=== PATIENT | female | born 1975 | race African-American/Black ===

== ENCOUNTER 2016-10-31 16:24 | Inpatient (IN) | payer OTHER ==
--- NOTE | 2016-10-31 16:34 | PDOC ---
Rapid Medical Evaluation Time Seen by Provider: 10/31/16 16:28 Medical Evaluation: Allergies Allergy/AdvReac Type Severity Reaction Status Date / Time No Known Drug Allergies Allergy Verified 10/31/16 16:29 10/31/16 16:33 I have performed a brief in-person evaluation of this patient. The patient presents with a chief complaint of: 41y/o F PVD sent from Dr. Neil's office for occluded LLE bypass graft. Pertinent physical exam findings: VSS LLE warm, perfused I have ordered the following: pre-op labs and CPK The patient will proceed to the ED for further evaluation.
[2016-10-31 16:59] LABS: BASOPHIL 0.6 % (0-2.0); EOSINOPHIL 6.1 % (0-4.5); MCH 21.8 pg (25.7-33.7); MCHC 30.2 g/dl (32.0-36.0); MEAN CELL VOLUME 72.3 fl (80-96); MEAN PLT VOLUME 8.9 fl (7.5-11.1); NEUTROPHILS 53.1 % (42.8-82.8); PLATELET COUNT 261 K/MM3 (134-434); RDW 21.5 % (11.6-15.6); WHITE BLOOD COUNT 11.3 K/mm3 (4.0-10.0)
[2016-10-31 17:01] LABS: URINE APPEARANCE SLCLOUDY; URINE BILIRUBIN NEGATIVE (NEGATIVE); URINE BLOOD NEGATIVE (NEGATIVE); URINE COLOR YELLOW; URINE GLUCOSE (UA) 2+ (NEGATIVE); URINE KETONE NEGATIVE (NEGATIVE); URINE LEUK ESTERASE NEGATIVE (NEGATIVE); URINE NITRITE NEGATIVE (NEGATIVE); URINE UROBILINOGEN NEGATIVE E.U./dl (0.2-1.0)
[2016-10-31 17:13] LABS: URINE PROTEIN 2+ (NEGATIVE)
[2016-10-31 17:17] LABS: BILIRUBIN,TOTAL 0.2 mg/dL (0.2-1.0); CALCIUM 8.6 mg/dL (8.5-10.1); CREATININE 1.2 mg/dL (0.55-1.02); TOT PROT 7.1 g/dl (6.4-8.2); URINE RBC <1 /hpf (0-3); URINE WBC 1 /hpf (3-5)
[2016-10-31 17:34] LABS: INR 0.92 (0.82-1.09); PROTHROMBIN TIME (PATIENT) 10.1 SEC (9.98-11.88)
[2016-10-31 17:37] LABS: ACTIVATED PTT 28.3 SECONDS (26.9-34.4)
[2016-10-31] MEDS ORDERED: HYDROmorphone HCL CARPU-JECT 2 MG/1 ML DISP.SYRIN IVPUSH ONE (17:44)
--- NOTE | 2016-10-31 18:00 | PDOC ---
History of Present Illness - General Chief Complaint: Pain, Acute Stated Complaint: PCP SENT/LEG PAIN/GRAFT SITE Time Seen by Provider: 10/31/16 16:28 History Source: Patient Exam Limitations: No Limitations - History of Present Illness Initial Comments: 10/31/16 17:54 41-year-old female with history of arterial insufficiency followed by Dr. Neil presents with worsening left lower extremity pain and states was seen by Dr. Neil today in the office who stated patient has an occlusion of her left iliofemoral graft as per ultrasound. Patient with history of hypertension, dyslipidemia, anxiety, CT, stent, chronic kidney disease, perforated bowel secondary to diverticulitis, and diabetes. Patient denies shortness of breath, lower extremity edema, or radiation of pain. Timing/Duration: getting worse Severity: moderate Associated Symptoms: reports: denies symptoms Past History - Past Medical History Allergies/Adverse Reactions: Allergies Allergy/AdvReac Type Severity Reaction Status Date / Time No Known Drug Allergies Allergy Verified 10/31/16 16:29 Home Medications: Ambulatory Orders Atorvastatin Ca [Lipitor] 20 mg PO HS 11/21/15 Budesonide [Pulmicort 0.25 mg Nebulizer -] 1 neb PO BID 11/21/15 Diltiazem [Cardizem -] 120 mg PO DAILY 11/21/15 Liraglutide [Victoza -] 0.6 mg SQ DAILY@0700 11/21/15 Albuterol 0.083% Nebulizer Carolyn [Ventolin 0.083% Nebulizer Soln -] 1 amp NEB Q6HPO amp 12/15/15 Hydroxyzine HCl [Atarax -] 25 mg PO BID PRN 04/15/16 Insulin (Novolog) [Novolog -] 0 units SQ ASDIR 04/15/16 Pregabalin [Lyrica -] 150 mg PO TID 04/15/16 Acetaminophen/Caffeine/Butalb [Fioricet -] 1 tab PO Q6H 04/16/16 Cholecalciferol (Vitamin D3) [Vitamin D3] 50,000 unit PO WEEKLY 04/16/16 Cyclobenzaprine HCl [Flexeril -] 10 mg PO BID 04/16/16 Dapagliflozin Propanediol [Farxiga] 5 mg PO DAILY 04/16/16 Duloxetine HCl [Cymbalta -] 30 mg PO BID #60 capsule. 04/17/16 Aspirin [ASA -] 81 mg PO DAILY tab.chew 07/17/16 Clopidogrel Bisulfate [Plavix -] 75 mg PO DAILY #30 tablet 07/17/16 Enoxaparin [Lovenox -] 120 mg SQ BID #30 disp.syrin 07/17/16 Clarithromycin 500 mg PO BID 08/17/16 Insulin Glargine,Hum.rec.anlog [Lantus (10mL VIAL) -] 55 units SQ AM 08/17/16 Lorazepam [Ativan] 0.5 mg PO Q12H MDD 2 08/17/16 Losartan Potassium 25 mg PO DAILY 08/17/16 Meclizine HCl [Antivert -] 25 mg PO TID 08/17/16 Trazodone HCl 100 mg PO BID 08/17/16 Unobtainable 10/31/16 Anemia: No Asthma: Yes Cancer: No Cardiac Disorders: Yes (mild heart attack, 1 stent) CVA: Yes (01/2015) COPD: Yes CHF: No Dementia: No Diabetes: Yes GI Disorders: Yes (perforated bowel,divertic) Disorders: Yes (Chronic kidney disease,not on dialysis) HTN: Yes Hypercholesterolemia: Yes Liver Disease: No Psychiatric Problems: Yes (anxiety) Suicide Attempt (Hx): No Seizures: No Thyroid Disease: No - Surgical History Abdominal Surgery: Yes (perforated bowel,hernia repair) Appendectomy: No Cardiac Surgery: Yes (stent ,bypass) Cholecystectomy: Yes Lung Surgery: No Neurologic Surgery: No Orthopedic Surgery: No - Family Disease History Family Disease History: Diabetes: Father, Mother, Heart Disease: Father - Reproductive History Tubal Ligation: Yes (2003) - Immunization History Immunization Up to Date: Yes - Psycho/Social/Smoking Cessation Hx Anxiety: Yes Suicidal Ideation: No Smoking Status: No Smoking History: Former smoker Have you smoked in the past 12 months: No Number of Cigarettes Smoked Daily: 0 If you are a former smoker, when did you quit?: 5 YRS Information on smoking cessation initiated: No 'Breaking Loose' booklet given: 09/02/12 Hx Alcohol Use: No Drug/Substance Use Hx: No Substance Use Type: None Hx Substance Use Treatment: No Patient Lives Alone: No Review of Systems - Review of Systems Able to Perform ROS?: Yes Constitutional: No: Symptoms Reported HEENTM: No: Symptoms Reported Respiratory: No: Symptoms reported Cardiac (ROS): No: Symptoms Reported ABD/GI: No: Symptoms Reported Musculoskeletal: Yes: Muscle Pain (left groin and left quadricep) Hematologic/Lymphatic: No: Symptoms Reported *Physical Exam - Vital Signs Last Vital Signs Temp Pulse Resp BP Pulse Ox 97.8 F 102 H 19 156/97 98 10/31/16 16:29 10/31/16 16:29 10/31/16 16:29 10/31/16 16:29 10/31/16 16:29 - Physical Exam General Appearance: Yes: Nourished, Appropriately Dressed. No: Apparent Distress HEENT: negative: Pale Conjunctivae Neck: positive: Supple Respiratory/Chest: positive: Lungs Clear, Normal Breath Sounds. negative: Respiratory Distress, Accessory Muscle Use Cardiovascular: positive: Regular Rhythm, Tachycardia. negative: Murmur Vascular Pulses: Doralis-Pedis (L): 0 (1+ posterior tibial palpated) Gastrointestinal/Abdominal: positive: Soft. negative: Tenderness Extremity: positive: Normal Capillary Refill, Pedal Edema. negative: Coldness, Calf Tenderness Integumentary: positive: Normal Color, Dry, Warm Neurologic: positive: Motor Strength 5/5 ( ambulatory) ED Treatment Course - LABORATORY CBC & Chemistry Diagram: 10/31/16 16:30 10/31/16 16:30 - ADDITIONAL ORDERS Additional order review: Laboratory Results 10/31/16 10/31/16 10/31/16 16:30 16:30 16:30 INR 0.92 PTT (Actin FS) 28.3 D Sodium 142 Potassium 4.2 Chloride 103 Carbon Dioxide 30 D Anion Gap 9 BUN 17 D Creatinine 1.2 H Creat Clearance w eGFR 49.03 Random Glucose 192 H D Calcium 8.6 Total Bilirubin 0.2 AST 4 L D ALT 11 L D Alkaline Phosphatase 131 H D Creatine Kinase 69 Total Protein 7.1 Albumin 3.0 L Urine Color Yellow Urine Appearance Slcloudy Urine pH 6.0 Ur Specific [place] 1.023 Urine Protein 2+ H Urine Glucose (UA) 2+ H Urine Ketones Negative Urine Blood Negative Urine Nitrite Negative Urine Bilirubin Negative Urine Urobilinogen Negative Ur Leukocyte Esterase Negative Urine RBC <1 Urine WBC 1 Ur Epithelial Cells Moderate Urine HCG, Qual Negative 10/31/16 16:30 RBC 3.89 MCV 72.3 L MCHC 30.2 L RDW 21.5 H D MPV 8.9 Neutrophils % 53.1 Lymphocytes % 35.7 Monocytes % 4.5 Eosinophils % 6.1 H Basophils % 0.6 Medical Decision Making - Medical Decision Making 10/31/16 17:59 Complaining of worsening left lower extremity pain. She was told if pain continues or worsens to go to the ER as patient may require revision. Patient ordered for labs and requesting Dilaudid for pain control. Call placed to Dr. Neil to discuss case 10/31/16 18:[address] Neil who states patient should be admitted and started on a heparin drip without a bolus since patient was recently on anticoagulation therapy. He states patient has a left iliofemoral graft occlusion that may require a bypass. Awaiting callback from Dr. Carmella Conley for admission. 10/31/16 18:52 Laboratory Tests 10/31/16 10/31/16 10/31/16 16:30 16:30 16:30 WBC 11.3 H D Hgb 8.5 L Hct 28.1 L Plt Count 261 D Neutrophils % 53.1 INR 0.92 PTT (Actin FS) 28.3 D Sodium Potassium Chloride Carbon Dioxide Anion Gap BUN Creatinine Creat Clearance w eGFR Random Glucose Calcium Total Bilirubin AST ALT Alkaline Phosphatase Creatine Kinase Total Protein Albumin Urine Protein 2+ H Urine Glucose (UA) 2+ H Ur Leukocyte Esterase Negative Urine RBC <1 Urine WBC 1 10/31/16 16:30 WBC Hgb Hct Plt Count Neutrophils % INR PTT (Actin FS) Sodium 142 Potassium 4.2 Chloride 103 Carbon Dioxide 30 D Anion Gap 9 BUN 17 D Creatinine 1.2 H Creat Clearance w eGFR 49.03 Random Glucose 192 H D Calcium 8.6 Total Bilirubin 0.2 AST 4 L D ALT 11 L D Alkaline Phosphatase 131 H D Creatine Kinase 69 Total Protein 7.1 Albumin 3.0 L Urine Protein Urine Glucose (UA) Ur Leukocyte Esterase Urine RBC Urine WBC *DC/Admit/Observation/Transfer Diagnosis at time of Disposition: Occlusion of graft of lower extremity Qualifiers: Encounter type: sequela Qualified Code(s): T82.898S - Other specified complication of vascular prosthetic devices, implants and grafts, sequela - Discharge Dispostion Admit: Yes
[2016-10-31] MEDS ORDERED: HYDROmorphone HCL CARPU-JECT 1 MG/1 ML DISP.SYRIN ONE (18:12)
[2016-10-31 18:19] LABS: ANISOCYTOSIS 2+; HYPOCHROMIA 2+; MICROCYTOSIS 2+
[2016-10-31] MEDS ORDERED: HEPARIN NA (PORCINE) 5,000 UNITS/ML 1ML VIAL IVPUSH PRN ×2 (18:38)
[2016-10-31] MEDS ORDERED: HEPARIN INFUSION - 500 ML IVPB ONE (19:29)
[2016-10-31] MEDS: HEPARIN - 25,000 UNIT in SODIUM CHLORIDE 495 ML IV SCH (19:42)
[2016-10-31] MEDS ORDERED: ACETAMINOPHEN 325 MG TABLET (FP) PO PRN (20:06)
[2016-10-31] MEDS ORDERED: hydrOXYzine HCL 25 MG TABLET (FP) PO PRN (20:06)
[2016-10-31] MEDS ORDERED: ALBUTEROL SO4 2.5/IPRATROPIUM 0.5 INH SOL 3 ML VIAL.NEB. NEB PRN (20:06)
[2016-10-31] MEDS ORDERED: oxyCODONE HCL 5 MG TABLET PO PRN (20:06)
[2016-10-31] MEDS ORDERED: MECLIZINE HCL 25 MG TABLET (FP) PO PRN (20:06)
[2016-10-31 21:09] VITALS: BMI 30.9
[2016-10-31] MEDS: BUDESONIDE/FORMETEROL FUMARATE 80/4.5 mcg INHALER IH SCH (22:16)
[2016-10-31] MEDS: INSULIN DETEMIR 100 UNITS/ML MDV SQ SCH (22:17)
[2016-10-31] MEDS: PREGABALIN 75 MG CAPSULE PO SCH (22:19)
[2016-10-31] MEDS: ATORVASTATIN CA 20 MG TABLET (FP) PO SCH (22:20)
[2016-10-31] MEDS: CYCLOBENZAPRINE HCL 10 MG TABLET (FP) PO SCH (22:20)
[2016-10-31] MEDS: traZODone HCL 100 MG TABLET (FP) PO SCH (22:20)
[2016-10-31] MEDS: INSULIN SLIDING SCALE (NOVOLOG) 1 VIAL SQ SCH (22:21)
[2016-10-31] MEDS: HYDROmorphone HCL CARPU-JECT 2 MG/1 ML DISP.SYRIN IVPB PRN (23:30)
[2016-11-01] MEDS: HEPARIN - 25,000 UNIT in SODIUM CHLORIDE 495 ML IV SCH ×4 (03:40→19:03)
[2016-11-01] MEDS: HYDROmorphone HCL CARPU-JECT 2 MG/1 ML DISP.SYRIN IVPB PRN ×3 (06:17→18:40)
[2016-11-01] MEDS: INSULIN SLIDING SCALE (NOVOLOG) 1 VIAL SQ SCH ×4 (06:17→21:38)
[2016-11-01] MEDS: CYCLOBENZAPRINE HCL 10 MG TABLET (FP) PO SCH ×2 (10:00→21:38)
[2016-11-01] MEDS: LOSARTAN POTASSIUM 50 MG TABLET (FP) PO SCH (10:00)
[2016-11-01] MEDS: DULoxetine HCL 30 MG CAPSULE.DR (FP) PO SCH (10:01)
[2016-11-01] MEDS: PREGABALIN 75 MG CAPSULE PO SCH ×2 (10:01→21:38)
[2016-11-01] MEDS: BUDESONIDE/FORMETEROL FUMARATE 80/4.5 mcg INHALER IH SCH ×2 (10:02→21:43)
[2016-11-01] MEDS: LORazepam 0.5 MG TABLET PO PRN ×2 (10:05→21:39)
--- NOTE | 2016-11-01 10:49 | HP ---
Admitting History and Physical - Primary Care Physician PCP: Carmella Conley - Admission Chief Complaint: ARTERIAL OCCLUSION/LEG PAIN History of Present Illness: 41-year-old female with history of arterial insufficiency followed by Dr. Celeste presents with worsening left lower extremity pain and states was seen by Dr. Celeste today in the office who stated patient has an occlusion of her left iliofemoral graft as per ultrasound. Patient with history of hypertension, dyslipidemia, anxiety, CO, stent, chronic kidney disease, perforated bowel secondary to diverticulitis, and diabetes. Patient denies shortness of breath, lower extremity edema, or radiation of pain. 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, Other (neuropathy) Cardiovascular: Yes: CAD, HTN, Hyperlipdemia Pulmonary: Yes: Asthma, COPD Gastrointestinal: Yes: GERD ...LMP: 07/21/16 Musculoskeletal: Yes: Osteoarthritis Endocrine: Yes: Diabetes Mellitus - Past Surgical History Past Surgical History: Yes: AV Fistula/Graft - Smoking History Smoking history: Former smoker Have you smoked in the past 12 months: No Aproximately how many cigarettes per day: 0 If you are a former smoker, when did you quit?: 5 YRS - Alcohol/Substance Use Hx Alcohol Use: No Home Medications - Allergies Allergies/Adverse Reactions: Allergies Allergy/AdvReac Type Severity Reaction Status Date / Time No Known Drug Allergies Allergy Verified 10/31/16 16:29 - Home Medications Home Medications: Ambulatory Orders Atorvastatin Ca [Lipitor] 20 mg PO HS 11/21/15 Budesonide [Pulmicort 0.25 mg Nebulizer -] 1 neb PO BID 11/21/15 Diltiazem [Cardizem -] 120 mg PO DAILY 11/21/15 Liraglutide [Victoza -] 0.6 mg SQ DAILY@0700 11/21/15 Albuterol 0.083% Nebulizer Carolyn [Ventolin 0.083% Nebulizer Soln -] 1 amp NEB Q6HPO amp 12/15/15 Hydroxyzine HCl [Atarax -] 25 mg PO BID PRN 04/15/16 Insulin (Novolog) [Novolog -] 0 units SQ ASDIR 04/15/16 Pregabalin [Lyrica -] 150 mg PO TID 04/15/16 Acetaminophen/Caffeine/Butalb [Fioricet -] 1 tab PO Q6H 04/16/16 Cholecalciferol (Vitamin D3) [Vitamin D3] 50,000 unit PO WEEKLY 04/16/16 Cyclobenzaprine HCl [Flexeril -] 10 mg PO BID 04/16/16 Dapagliflozin Propanediol [Farxiga] 5 mg PO DAILY 04/16/16 Duloxetine HCl [Cymbalta -] 30 mg PO BID #60 capsule.dr 04/17/16 Aspirin [ASA -] 81 mg PO DAILY tab.chew 07/17/16 Clopidogrel Bisulfate [Plavix -] 75 mg PO DAILY #30 tablet 07/17/16 Enoxaparin [Lovenox -] 120 mg SQ BID #30 disp.syrin 07/17/16 Clarithromycin 500 mg PO BID 08/17/16 Insulin Glargine,Hum.rec.anlog [Lantus (10mL VIAL) -] 55 units SQ AM 08/17/16 Lorazepam [Ativan] 0.5 mg PO Q12H MDD 2 08/17/16 Losartan Potassium 25 mg PO DAILY 08/17/16 Meclizine HCl [Antivert -] 25 mg PO TID 08/17/16 Trazodone HCl 100 mg PO BID 08/17/16 Unobtainable 10/31/16 Family Disease History - Family Disease History Family Disease History: Diabetes: Mother, Sister Review of Systems - Review of Systems Constitutional: reports: Weakness Eyes: reports: No Symptoms HENT: reports: No Symptoms Neck: reports: No Symptoms Cardiovascular: reports: No Symptoms Respiratory: reports: No Symptoms Gastrointestinal: reports: No Symptoms Genitourinary: reports: No Symptoms Musculoskeletal: reports: Muscle Pain, Muscle Weakness Integumentary: reports: No Symptoms Neurological: reports: Pre-Existing Deficit Endocrine: reports: No Symptoms Hematology/Lymphatic: reports: No Symptoms Psychiatric: reports: No Symptoms Physical Examination Vital Signs: Vital Signs Temperature 98 F 11/01/16 09:29 Pulse Rate 112 H 11/01/16 09:29 Respiratory Rate 18 11/01/16 09:29 Blood Pressure 112/78 11/01/16 09:29 O2 Sat by Pulse Oximetry (%) 98 10/31/16 16:29 Constitutional: Yes: Moderate Distress Eyes: Yes: WNL HENT: Yes: WNL Neck: Yes: WNL Cardiovascular: Yes: WNL Respiratory: Yes: WNL Gastrointestinal: Yes: WNL ...Rectal Exam: Yes: WNL Renal/: Yes: WNL Breast(s): Yes: WNL Musculoskeletal: Yes: Muscle Pain Extremities: Yes: Other Edema: No Peripheral Pulses WNL: No Peripheral Pulses: Left Doralis Pedis: 0 Integumentary: Yes: WNL Wound/Incision: Yes: Clean/Dry Neurological: Yes: Pre-Existing Deficit ...Motor Strength: LLE, RLE Psychiatric: Yes: Other Problem List - Problems (1) Occlusion of graft of lower extremity Code(s): T82.898A - OTH COMPLICATION OF VASCULAR PROSTH DEV/GRFT, INIT Qualifiers: Encounter type: sequela Qualified Code(s): T82.898S - Other specified complication of vascular prosthetic devices, implants and grafts, sequela (2) Arterial occlusion Code(s): I74.9 - EMBOLISM AND THROMBOSIS OF UNSPECIFIED ARTERY (3) Chronic kidney disease (CKD) Code(s): N18.9 - CHRONIC KIDNEY DISEASE, UNSPECIFIED (4) Diabetes mellitus Code(s): E11.9 - TYPE 2 DIABETES MELLITUS WITHOUT COMPLICATIONS Assessment/Plan ARTERIAL OCCLUSION TO GO TO OR TODAY WITH DR CELESTE FOR ANGIOPLASTY HEPARIN IV PAIN CONTROL STATIN A1C ORDERED STRICT LIPID AND DIABETIC CONTROL DISCUSSED WITH PATIENT TO PREVENT FURTHER DAMAGE.
[2016-11-01 11:06] LABS: ALBUMIN 2.5 g/dl (3.4-5.0); BILIRUBIN,TOTAL 0.1 mg/dL (0.2-1.0); CALCIUM 7.9 mg/dL (8.5-10.1); CREATININE 1.1 mg/dL (0.55-1.02); TOT PROT 6.2 g/dl (6.4-8.2)
[2016-11-01] MEDS ORDERED: INSULIN (NOVOLOG) ASPART 100 UNITS/ML 10ML VIAL ONE ×2 (11:46→18:37)
--- NOTE | 2016-11-01 17:15 | CONSULT ---
Consult - History of Present Illness History of Present Illness: Ms. Ren is a 41 year old female with history of left iliac occlusion who has had a fem-fem bypass whicvh failed and a left iliac to left femoral bypass which has thrombosed twice before and was opened with thrombolysis and stenting of iliac and femoral anastomoses. The last thrombectomy was July 2016. She was maintained on daily Lovenox as she had clotted while on Xarelto. She failed to return for Duplex evaluation of her graft in August and September and presented to my office yesterday with renewed pain in the left leg at rest. Duplex confirmed reocclusion of the graft. 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 No: AV Fistula/ Graft - Alcohol/Substance Use Hx Alcohol Use: No - Smoking History Smoking history: Former smoker Have you smoked in the past 12 months: No Aproximately how many cigarettes per day: 0 If you are a former smoker, when did you quit?: 5 YRS - Social History Usual Living Arrangement: With Spouse Home Medications - Allergies Allergies/Adverse Reactions: Allergies Allergy/AdvReac Type Severity Reaction Status Date / Time No Known Drug Allergies Allergy Verified 10/31/16 16:29 - Home Medications Home Medications: Ambulatory Orders Atorvastatin Ca [Lipitor] 20 mg PO HS 11/21/15 Budesonide [Pulmicort 0.25 mg Nebulizer -] 1 neb PO BID 11/21/15 Diltiazem [Cardizem -] 120 mg PO DAILY 11/21/15 Liraglutide [Victoza -] 0.6 mg SQ DAILY@0700 11/21/15 Albuterol 0.083% Nebulizer Carolyn [Ventolin 0.083% Nebulizer Soln -] 1 amp NEB Q6HPO amp 12/15/15 Hydroxyzine HCl [Atarax -] 25 mg PO BID PRN 04/15/16 Insulin (Novolog) [Novolog -] 0 units SQ ASDIR 04/15/16 Pregabalin [Lyrica -] 150 mg PO TID 04/15/16 Acetaminophen/Caffeine/Butalb [Fioricet -] 1 tab PO Q6H 04/16/16 Cholecalciferol (Vitamin D3) [Vitamin D3] 50,000 unit PO WEEKLY 04/16/16 Cyclobenzaprine HCl [Flexeril -] 10 mg PO BID 04/16/16 Dapagliflozin Propanediol [Farxiga] 5 mg PO DAILY 04/16/16 Duloxetine HCl [Cymbalta -] 30 mg PO BID #60 capsule.dr 04/17/16 Aspirin [ASA -] 81 mg PO DAILY tab.chew 07/17/16 Clopidogrel Bisulfate [Plavix -] 75 mg PO DAILY #30 tablet 07/17/16 Enoxaparin [Lovenox -] 120 mg SQ BID #30 disp.syrin 07/17/16 Clarithromycin 500 mg PO BID 08/17/16 Insulin Glargine,Hum.rec.anlog [Lantus (10mL VIAL) -] 55 units SQ AM 08/17/16 Lorazepam [Ativan] 0.5 mg PO Q12H MDD 2 08/17/16 Losartan Potassium 25 mg PO DAILY 08/17/16 Meclizine HCl [Antivert -] 25 mg PO TID 08/17/16 Trazodone HCl 100 mg PO BID 08/17/16 Unobtainable 10/31/16 Family Disease History - Family Disease History Family Disease History: Diabetes: Mother, Sister Physical Exam Vital Signs: Vital Signs Temperature 97.8 F 11/01/16 15:21 Pulse Rate 94 H 11/01/16 15:21 Respiratory Rate 18 11/01/16 09:29 Blood Pressure 129/84 11/01/16 15:21 O2 Sat by Pulse Oximetry (%) 98 10/31/16 16:29 Constitutional: Yes: No Distress Eyes: Yes: WNL, EOM Intact HENT: Yes: WNL Neck: Yes: Supple Cardiovascular: Yes: Regular Rate and Rhythm Respiratory: Yes: Regular Gastrointestinal: Yes: Soft, Abdomen, Obese Extremities: Yes: Cool (Left foot.) Edema: No Peripheral Pulses WNL: No (Absent left pedal pulses. PT present with Doppler) Labs: CBC, BMP 11/01/16 10:00 Problem List - Problems (1) Occlusion of graft of lower extremity Assessment/Plan: Reocclusion (3rd time) of iliofemoral bypass despite anticoagulation. At this point I do not feel that another attempt to salvage this graft would be worthwhile. A new bypass from abdominal aorta to SFA will be needed. In order for this to work adequate vein is needed. Plan: Duplex mapping of both GSV. If vein is not of adequate size for bypass femoral vein may be needed. Cardiology clearance for surgery. Code(s): T82.898A - H COMPLICATION OF VASCULAR PROSTH DEV/GRFT, INIT Qualifiers: Encounter type: sequela Qualified Code(s): T82.898S - Other specified complication of vascular prosthetic devices, implants and grafts, sequela (2) Hypercoagulable state Assessment/Plan: Patient has not been diagnosed formally but has clinical evidence for a hypercoagulable state based on multiple graft occlusions and strokes. Code(s): D68.59 - OTHER PRIMARY THROMBOPHILIA
[2016-11-01] MEDS ORDERED: traZODone HCL 50 MG TABLET (FP) ONE (21:35)
[2016-11-01] MEDS: INSULIN DETEMIR 100 UNITS/ML MDV SQ SCH (21:37)
[2016-11-01] MEDS: ATORVASTATIN CA 20 MG TABLET (FP) PO SCH (21:38)
[2016-11-01] MEDS: traZODone HCL 100 MG TABLET (FP) PO SCH (21:39)
[2016-11-02] MEDS: HYDROmorphone HCL CARPU-JECT 2 MG/1 ML DISP.SYRIN IVPB PRN ×4 (00:30→18:45)
[2016-11-02] MEDS: INSULIN SLIDING SCALE (NOVOLOG) 1 VIAL SQ SCH ×4 (06:19→21:33)
[2016-11-02 07:56] LABS: MCHC 30.4 g/dl (32.0-36.0); MEAN CELL VOLUME 72.4 fl (80-96); MEAN PLT VOLUME 8.9 fl (7.5-11.1); PLATELET COUNT 207 K/MM3 (134-434); RDW 21.2 % (11.6-15.6); WHITE BLOOD COUNT 11.5 K/mm3 (4.0-10.0)
[2016-11-02] MEDS: HEPARIN - 25,000 UNIT in SODIUM CHLORIDE 495 ML IV SCH ×2 (08:55→18:53)
--- NOTE | 2016-11-02 09:16 | PN ---
Progress Note, Physician Chief Complaint: AWAKE ALERT GOING FOR VENOUS MAPPING NAD +APPETITE +BM - Current Medication List Current Medications: Active Medications Acetaminophen (Tylenol -) 650 mg PO Q6H PRN PRN Reason: FEVER OR PAIN Albuterol/Ipratropium (Duoneb -) 1 amp NEB Q6H PRN PRN Reason: SHORTNESS OF BREATH Last Admin: 11/01/16 06:28 Dose: 1 amp Atorvastatin Calcium (Lipitor -) 20 mg PO HS [facility] Last Admin: 11/01/16 21:38 Dose: 20 mg Budesonide/Formoterol Fumarate (Symbicort 80/4.5mcg -) 2 puff IH BID [facility] Last Admin: 11/01/16 21:43 Dose: 2 puff Cyclobenzaprine HCl (Flexeril -) 10 mg PO BID [facility] Last Admin: 11/01/16 21:38 Dose: 10 mg Diltiazem HCl (Cardizem Cd -) 120 mg PO DAILY [facility] Last Admin: 11/01/16 10:01 Dose: 120 mg Duloxetine HCl (Cymbalta -) 30 mg PO DAILY [facility] Last Admin: 11/01/16 10:01 Dose: 30 mg Heparin Sodium (Porcine) (Heparin -) 1,000 unit IVPUSH PRN PRN PRN Reason: Heparin Last Admin: 11/01/16 03:41 Dose: 1,000 unit Heparin Sodium (Porcine) (Heparin -) 5,000 unit IVPUSH PRN PRN PRN Reason: Heparin Hydromorphone HCl (Dilaudid Injection -) 2 mg IVPB Q6H PRN PRN Reason: PAIN Last Admin: 11/02/16 06:49 Dose: 2 mg Hydroxyzine HCl (Atarax -) 25 mg PO TID PRN PRN Reason: FOR ITCHING Heparin Sodium (Porcine) 25, (000 unit/ Sodium Chloride) 500 mls @ 20 mls/hr IV TITR MICK; 1,000 UNIT/HR PRN Reason: Protocol Last Admin: 11/02/16 08:55 Dose: 22 mls/hr Insulin Aspart (Novolog Vial Sliding Scale -) 1 vial SQ ACHS MICK PRN Reason: Protocol Last Admin: 11/02/16 06:19 Dose: Not Given Insulin Detemir (Levemir Vial) 50 units SQ HS [facility] Last Admin: 11/01/16 21:37 Dose: 50 units Lorazepam (Ativan -) 0.5 mg PO TID PRN PRN Reason: ANXIETY Last Admin: 11/01/16 21:39 Dose: 0.5 mg Losartan Potassium (Cozaar -) 50 mg PO DAILY [facility] Last Admin: 11/01/16 10:00 Dose: 50 mg Meclizine HCl (Antivert -) 25 mg PO TID PRN PRN Reason: VERTIGO Oxycodone HCl (Roxicodone -) 10 mg PO Q6H PRN PRN Reason: PAIN Pregabalin (Lyrica -) 150 mg PO BID [facility] Last Admin: 11/01/16 21:38 Dose: 150 mg Trazodone HCl (Desyrel -) 100 mg PO HS [facility] Last Admin: 11/01/16 21:39 Dose: 100 mg - Objective Vital Signs: Vital Signs Temperature 97.3 F L 11/02/16 06:10 Pulse Rate 88 11/02/16 06:10 Respiratory Rate 18 11/02/16 06:10 Blood Pressure 135/76 11/02/16 06:10 O2 Sat by Pulse Oximetry (%) 98 10/31/16 16:29 Constitutional: Yes: No Distress Eyes: Yes: WNL HENT: Yes: WNL Neck: Yes: WNL Cardiovascular: Yes: WNL Respiratory: Yes: WNL Gastrointestinal: Yes: WNL Genitourinary: Yes: WNL Musculoskeletal: Yes: WNL Extremities: Yes: WNL Edema: No Peripheral Pulses WNL: Yes Integumentary: Yes: WNL Wound/Incision: Yes: Clean/Dry Neurological: Yes: WNL ...Motor Strength: WNL Psychiatric: Yes: WNL Labs: CBC, BMP 11/02/16 06:30 11/01/16 10:00 INR, PTT INR 0.92 (0.82-1.09) 10/31/16 16:30 Problem List - Problems (1) Occlusion of graft of lower extremity Code(s): T82.898A - OTH COMPLICATION OF VASCULAR PROSTH DEV/GRFT, INIT Qualifiers: Encounter type: sequela Qualified Code(s): T82.898S - Other specified complication of vascular prosthetic devices, implants and grafts, sequela (2) Arterial occlusion Code(s): I74.9 - EMBOLISM AND THROMBOSIS OF UNSPECIFIED ARTERY (3) Chronic kidney disease (CKD) Code(s): N18.9 - CHRONIC KIDNEY DISEASE, UNSPECIFIED (4) Diabetes mellitus Code(s): E11.9 - TYPE 2 DIABETES MELLITUS WITHOUT COMPLICATIONS Assessment/Plan ARTERIAL OCCLUSION ON HEPARIN IV VENOUS MAPPING TODAY DR GEORGE/CHANDLER FOR CARDIOLOGY PAIN CONTROL OOB TO CHAIR
[2016-11-02] MEDS: LOSARTAN POTASSIUM 50 MG TABLET (FP) PO SCH (11:02)
[2016-11-02] MEDS: LORazepam 0.5 MG TABLET PO PRN ×2 (11:02→21:37)
[2016-11-02] MEDS: PREGABALIN 75 MG CAPSULE PO SCH ×2 (11:03→21:33)
[2016-11-02] MEDS: DULoxetine HCL 30 MG CAPSULE.DR (FP) PO SCH (11:03)
[2016-11-02] MEDS: CYCLOBENZAPRINE HCL 10 MG TABLET (FP) PO SCH ×2 (11:04→21:32)
[2016-11-02] MEDS: BUDESONIDE/FORMETEROL FUMARATE 80/4.5 mcg INHALER IH SCH ×2 (11:05→21:35)
[2016-11-02 11:50] LABS: HYPOCHROMIA 1+
[2016-11-02 11:51] LABS: ANISOCYTOSIS 2+; MICROCYTOSIS 1+
[2016-11-02] MEDS ORDERED: PT OWN MED DRAWER 7, Y5N ONE (16:41)
--- NOTE | 2016-11-02 16:51 | CONSULT ---
Consult Consult Specialty:: Cardiology Referred by:: Dr Conley Reason for Consultation:: Pre-op prior to vascular surgery - History of Present Illness Chief Complaint: Left leg pain for about a week History of Present Illness: 41 yo obese female with past tobacco, HTN, HLD, DM for over 20 yrs -> insulin- requiring for over 10 yrs, CAD -. LCx FLY in 11/12, reported "small NV" in 2014 with likely nuclear at [facility] (no details available), CVA ( presented with visual field defect) shortly thereafter in 01/15 -. unremarkable work-up here including holter and TAWANNA, PAD -. multiple revascularization procedures in [facility] including multiple stents, ileo-fem bypass and subsequent procedures to open graft, sent here from Dr Dooley's office with a week of left leg pain, for occluded graft -. scheduled for the OR tomorrow afternoon. Patient denies any chest pain or SOB, except when she is having an asthma attack. She however has very poor exercise tolerance -> gets back pain ( sometimes leg pain) with only walking from bedroom to bathroom. She denies TOÑO, PND or orthopnea Pt hasn't been to cardiology in about 2yrs. Sh eused to see Dr Hill. She was supposed to see ammonia refrigeration technician in Dr Conley's office but has not done so yet . She has an upcoming appointment. 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 holter then sg=howed rare APCs, TTE and TAWANNA unremarkable), Other (neuropathy) Cardio/Vascular: Yes: CAD (cath in 11/12 at [facility]: LCx FLY, 80% small D1 -. med managed), HTN, Hyperlipdemia Pulmonary: Yes: Asthma, COPD Gastrointestinal: Yes: GERD ...LMP: 07/21/16 Heme/Onc: Yes: Anemia Musculoskeletal: Yes: Osteoarthritis, Other (herniated disc) Endocrine: Yes: Diabetes Mellitus (for over 20 yr s-. insulin for over 10 yrs) - Past Surgical History Past Surgical History: Yes: Bypass, Hernia Repair ([facility]). No: AV Fistula/ Graft - Alcohol/Substance Use Hx Alcohol Use: No History of Substance Use: reports: None - Smoking History Smoking history: Former smoker (1-2 ppday) Have you smoked in the past 12 months: No Aproximately how many cigarettes per day: 0 If you are a former smoker, when did you quit?: 10 ya - Social History Usual Living Arrangement: With Spouse Home Medications - Allergies Allergies/Adverse Reactions: Allergies Allergy/AdvReac Type Severity Reaction Status Date / Time No Known Drug Allergies Allergy Verified 10/31/16 16:29 - Home Medications Home Medications: Ambulatory Orders Atorvastatin Ca [Lipitor] 20 mg PO HS 11/21/15 Budesonide [Pulmicort 0.25 mg Nebulizer -] 1 neb PO BID 11/21/15 Diltiazem [Cardizem -] 120 mg PO DAILY 11/21/15 Liraglutide [Victoza -] 0.6 mg SQ DAILY@0700 11/21/15 Albuterol 0.083% Nebulizer Carolyn [Ventolin 0.083% Nebulizer Soln -] 1 amp NEB Q6HPO amp 12/15/15 Hydroxyzine HCl [Atarax -] 25 mg PO BID PRN 04/15/16 Insulin (Novolog) [Novolog -] 0 units SQ ASDIR 04/15/16 Pregabalin [Lyrica -] 150 mg PO TID 04/15/16 Acetaminophen/Caffeine/Butalb [Fioricet -] 1 tab PO Q6H 04/16/16 Cholecalciferol (Vitamin D3) [Vitamin D3] 50,000 unit PO WEEKLY 04/16/16 Cyclobenzaprine HCl [Flexeril -] 10 mg PO BID 04/16/16 Dapagliflozin Propanediol [Farxiga] 5 mg PO DAILY 04/16/16 Duloxetine HCl [Cymbalta -] 30 mg PO BID #60 capsule. 04/17/16 Aspirin [ASA -] 81 mg PO DAILY tab.chew 07/17/16 Clopidogrel Bisulfate [Plavix -] 75 mg PO DAILY #30 tablet 07/17/16 Enoxaparin [Lovenox -] 120 mg SQ BID #30 disp.syrin 07/17/16 Clarithromycin 500 mg PO BID 08/17/16 Insulin Glargine,Hum.rec.anlog [Lantus (10mL VIAL) -] 55 units SQ AM 08/17/16 Lorazepam [Ativan] 0.5 mg PO Q12H MDD 2 08/17/16 Losartan Potassium 25 mg PO DAILY 08/17/16 Meclizine HCl [Antivert -] 25 mg PO TID 08/17/16 Trazodone HCl 100 mg PO BID 08/17/16 Unobtainable 10/31/16 Family Disease History - Family Disease History Family Disease History: Diabetes: Mother ( in her late 50s ), Sister ( in her 40s of substance abuse), Other: Father (had CAV --. in his 70s) Other Family History: brother of substance abuse Review of Systems - Review of Systems Constitutional: reports: No Symptoms Eyes: reports: Other (glasses) HENT: reports: No Symptoms Neck: reports: Pain on Movement Cardiovascular: reports: Shortness of Breath (wit asthm attack) Respiratory: reports: No Symptoms Gastrointestinal: reports: Indigestion Genitourinary: reports: No Symptoms Musculoskeletal: reports: Back Pain, Extremity Pain, Joint Pain, Muscle Weakness Neurological: reports: Weakness Hematology/Lymphatic: reports: No Symptoms Physical Exam Vital Signs: Vital Signs Temperature 98.1 F 11/02/16 13:47 Pulse Rate 96 H 11/02/16 13:47 Respiratory Rate 18 11/02/16 06:10 Blood Pressure 125/78 11/02/16 13:51 O2 Sat by Pulse Oximetry (%) 98 10/31/16 16:29 Constitutional: Yes: Obese Eyes: Yes: Conjunctiva Clear HENT: Yes: Atraumatic Neck: Yes: Supple Cardiovascular: Yes: Regular Rate and Rhythm. No: Murmur Respiratory: Yes: CTA Bilaterally Gastrointestinal: Yes: Normal Bowel Sounds, Soft, Abdomen, Obese. No: Tenderness Extremities: Yes: Other (cool) Edema: No Peripheral Pulses WNL: Yes (very weak on th eleft, weak on the right) Neurological: Yes: Alert, Oriented Psychiatric: Yes: Alert, Oriented Labs: CBC, BMP 11/02/16 06:30 11/01/16 10:00 Imaging - Results Other: Other (Dipyridamole nuclear ) at [facility] -. no ischemia, small inf-lateral NV, EF 63%) Assessment/Plan 41 yo obese female with the above history, here with left leg pain -> found with occluded graft and is scheduled for the OR tomorrow afternoon. Patient denies any chest pain or SOB, except when she is having an asthma attack. She however has very poor exercise tolerance, mostly because of back pain . Consequently, we don't have any idea of her exercise tolerance. I was able to get the nuclear stress from [facility] from 12/31/14 which showed small infero-lateral infarct, no ischemia and EF 63% Patient denies any new symptoms in the recent past. EKG done just now is w/o acute changes. Given the above, she may proceed with the vascular surgery w/o further cardiac evaluation Rec: Proceed with surgery per Dr Dooley Continue current meds (pt on cardizem rather than BB, presumably because of her asthma) Further management accordingly Per IM/vasc Thanks! We'll follow!
--- NOTE | 2016-11-02 17:09 | PN ---
Progress Note (short form) - Note Progress Note: Vascular Surgery- Dr. Neil Patient seen and examined. Patient states her leg feels the same. Patient discussed with cardiology. Last Vital Signs Temp Pulse Resp BP Pulse Ox 98.1 F 96 H 18 125/78 98 11/02/16 13:47 11/02/16 13:47 11/02/16 06:10 11/02/16 13:51 10/31/16 16:29 CBC, BMP 11/02/16 06:30 11/01/16 10:00 Exam: Gen: NAD Extremities: Left foot cooler than right, not able to palpate DP pulse, PT with dopplar A/P Re-occlusion iliofemoral bypass despite anticoagulation Plan for OR tomorrow afternoon for new bypass from abdominal aorta to SFA, pending cardiology clearance (awaiting stress test results) Vein mapping of both GSV complete Patient discussed with Dr. Neil May have clear liquids for breakfast, then NPO T&S, crossmatch- H&H 7.6/25.0- may need unit PRBC prior to OR if cleared to have surgery tomorrow afternoon
--- NOTE | 2016-11-02 19:49 | CONSULT ---
Consult - text type - Consultation Consultation Note: 41-year-old female with history of arterial insufficiency followed by Dr. Neil presents with worsening left lower extremity pain and has an occlusion of her left iliofemoral graft as per ultrasound. Patient with history of hypertension, dyslipidemia, anxiety, NM, stent, chronic kidney disease, perforated bowel secondary to diverticulitis, and diabetes. Patient denies shortness of breath, lower extremity edema, or radiation of pain. Past History HTN DM dyslipidemia anxiety NM s/p stent CKD perforated bowel Allergies/Adverse Reactions: Allergies Allergy/AdvReac Type Severity Reaction Status Date / Time No Known Drug Allergies Allergy Verified 10/31/16 16:29 Home Medications: Ambulatory Orders Atorvastatin Ca [Lipitor] 20 mg PO HS 11/21/15 Budesonide [Pulmicort 0.25 mg Nebulizer -] 1 neb PO BID 11/21/15 Diltiazem [Cardizem -] 120 mg PO DAILY 11/21/15 Liraglutide [Victoza -] 0.6 mg SQ DAILY@0700 11/21/15 Albuterol 0.083% Nebulizer Carolyn [Ventolin 0.083% Nebulizer Soln -] 1 amp NEB Q6HPO amp 12/15/15 Hydroxyzine HCl [Atarax -] 25 mg PO BID PRN 04/15/16 Insulin (Novolog) [Novolog -] 0 units SQ ASDIR 04/15/16 Pregabalin [Lyrica -] 150 mg PO TID 04/15/16 Acetaminophen/Caffeine/Butalb [Fioricet -] 1 tab PO Q6H 04/16/16 Cholecalciferol (Vitamin D3) [Vitamin D3] 50,000 unit PO WEEKLY 04/16/16 Cyclobenzaprine HCl [Flexeril -] 10 mg PO BID 04/16/16 Dapagliflozin Propanediol [Farxiga] 5 mg PO DAILY 04/16/16 Duloxetine HCl [Cymbalta -] 30 mg PO BID #60 capsule. 04/17/16 Aspirin [ASA -] 81 mg PO DAILY tab.chew 07/17/16 Clopidogrel Bisulfate [Plavix -] 75 mg PO DAILY #30 tablet 07/17/16 Enoxaparin [Lovenox -] 120 mg SQ BID #30 disp.syrin 07/17/16 Clarithromycin 500 mg PO BID 08/17/16 Insulin Glargine,Hum.rec.anlog [Lantus (10mL VIAL) -] 55 units SQ AM 08/17/16 Lorazepam [Ativan] 0.5 mg PO Q12H MDD 2 08/17/16 Losartan Potassium 25 mg PO DAILY 08/17/16 Meclizine HCl [Antivert -] 25 mg PO TID 08/17/16 Trazodone HCl 100 mg PO BID 08/17/16 Unobtainable 10/31/16 Current Medications Acetaminophen (Tylenol -) 650 mg PO Q6H PRN PRN Reason: FEVER OR PAIN Albuterol/Ipratropium (Duoneb -) 1 amp NEB Q6H PRN PRN Reason: SHORTNESS OF BREATH Last Admin: 11/01/16 06:28 Dose: 1 amp Atorvastatin Calcium (Lipitor -) 20 mg PO HS [facility] Last Admin: 11/01/16 21:38 Dose: 20 mg Budesonide/Formoterol Fumarate (Symbicort 80/4.5mcg -) 2 puff IH BID [facility] Last Admin: 11/02/16 11:05 Dose: 2 puff Cyclobenzaprine HCl (Flexeril -) 10 mg PO BID [facility] Last Admin: 11/02/16 11:04 Dose: 10 mg Diltiazem HCl (Cardizem Cd -) 120 mg PO DAILY [facility] Last Admin: 11/02/16 11:02 Dose: 120 mg Duloxetine HCl (Cymbalta -) 30 mg PO DAILY [facility] Last Admin: 11/02/16 11:03 Dose: 30 mg Heparin Sodium (Porcine) (Heparin -) 1,000 unit IVPUSH PRN PRN PRN Reason: Heparin Last Admin: 11/01/16 03:41 Dose: 1,000 unit Heparin Sodium (Porcine) (Heparin -) 5,000 unit IVPUSH PRN PRN PRN Reason: Heparin Hydromorphone HCl (Dilaudid Injection -) 2 mg IVPB Q6H PRN PRN Reason: PAIN Last Admin: 11/02/16 18:45 Dose: 2 mg Hydroxyzine HCl (Atarax -) 25 mg PO TID PRN PRN Reason: FOR ITCHING Heparin Sodium (Porcine) 25, (000 unit/ Sodium Chloride) 500 mls @ 20 mls/hr IV TITR MICK; 1,000 UNIT/HR PRN Reason: Protocol Last Admin: 11/02/16 18:53 Dose: Not Given Insulin Aspart (Novolog Vial Sliding Scale -) 1 vial SQ ACHS [facility] PRN Reason: Protocol Last Admin: 11/02/16 17:35 Dose: Not Given Insulin Detemir (Levemir Vial) 50 units SQ HS [facility] Last Admin: 11/01/16 21:37 Dose: 50 units Lorazepam (Ativan -) 0.5 mg PO TID PRN PRN Reason: ANXIETY Last Admin: 11/02/16 11:02 Dose: 0.5 mg Losartan Potassium (Cozaar -) 50 mg PO DAILY [facility] Last Admin: 11/02/16 11:02 Dose: 50 mg Meclizine HCl (Antivert -) 25 mg PO TID PRN PRN Reason: VERTIGO Oxycodone HCl (Roxicodone -) 10 mg PO Q6H PRN PRN Reason: PAIN Pregabalin (Lyrica -) 150 mg PO BID [facility] Last Admin: 11/02/16 11:03 Dose: 150 mg Trazodone HCl (Desyrel -) 100 mg PO [facility] Last Admin: 11/01/16 21:39 Dose: 100 mg - Surgical History Abdominal Surgery: Yes (perforated bowel,hernia repair) Cardiac Surgery: Yes (stent ,bypass) Cholecystectomy: Yes - Family Disease History Family Disease History: Diabetes: Father, Mother, Heart Disease: Father - Reproductive History Tubal Ligation: Yes (2003) - Immunization History Immunization Up to Date: Yes - Psycho/Social/Smoking Cessation Hx Smoking History: Former smoker *Physical Exam - Vital Signs Last Vital Signs Temp Pulse Resp BP Pulse Ox 97.8 F 102 H 19 156/97 98 10/31/16 16:29 10/31/16 16:29 10/31/16 16:29 10/31/16 16:29 10/31/16 16:29 - Physical Exa Cor: RSR, No murmurs, No gallops Lungs: Clear to P&A Abd: Soft, Normal bowel sounds, No organomegaly Ext:No significant edema Abnormal Lab Results 11/01/16 11/02/16 11/02/16 10:00 06:30 06:30 WBC 11.5 H RBC 3.45 L Hgb 7.6 L D Hct 25.0 L MCV 72.4 L MCHC 30.4 L RDW 21.2 H PTT (Actin FS) 52.8 H Hemoglobin A1c % 7.9 H D A/P 41 y/o patient with DM, HtN, dyslipidemia, PVD, comes in with leg claudication Lt. iliofemoral graft thrombosis, multiple times. 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
[2016-11-02] MEDS ORDERED: traZODone HCL 50 MG TABLET (FP) ONE (21:28)
[2016-11-02] MEDS ORDERED: INSULIN (NOVOLOG) ASPART 100 UNITS/ML 10ML VIAL ONE (21:31)
[2016-11-02] MEDS: ATORVASTATIN CA 20 MG TABLET (FP) PO SCH (21:32)
[2016-11-02] MEDS: traZODone HCL 100 MG TABLET (FP) PO SCH (21:32)
[2016-11-02] MEDS: INSULIN DETEMIR 100 UNITS/ML MDV SQ SCH (21:33)
[2016-11-03] MEDS: HYDROmorphone HCL CARPU-JECT 2 MG/1 ML DISP.SYRIN IVPB PRN ×2 (00:57→06:48)
[2016-11-03] MEDS ORDERED: traZODone HCL 50 MG TABLET (FP) PO SCH (02:01)
[2016-11-03] MEDS: INSULIN SLIDING SCALE (NOVOLOG) 1 VIAL SQ SCH ×2 (06:42→12:14)
[2016-11-03 07:26] LABS: MCH 22.4 pg (25.7-33.7); MCHC 30.5 g/dl (32.0-36.0); MEAN CELL VOLUME 73.2 fl (80-96); MEAN PLT VOLUME 9.5 fl (7.5-11.1); PLATELET COUNT 210 K/MM3 (134-434); RDW 21.2 % (11.6-15.6); WHITE BLOOD COUNT 10.5 K/mm3 (4.0-10.0)
[2016-11-03 07:51] LABS: ALBUMIN 2.7 g/dl (3.4-5.0); BILIRUBIN,TOTAL 0.1 mg/dL (0.2-1.0); CALCIUM 7.8 mg/dL (8.5-10.1); CREATININE 1.2 mg/dL (0.55-1.02); TOT PROT 6.3 g/dl (6.4-8.2)
--- NOTE | 2016-11-03 08:45 | PN ---
Progress Note (short form) - Note Progress Note: Cardiology clearance obtained. Duplex shows adequate size vein for bypass. Discussed plans for aorta-left femoral bypass with patient and explained risks including bleeding, infection, graft thrombsis, kidney injury, . Problem List - Problems (1) Occlusion of graft of lower extremity Code(s): T82.898A - OTH COMPLICATION OF VASCULAR PROSTH DEV/GRFT, INIT Qualifiers: Encounter type: sequela Qualified Code(s): T82.898S - Other specified complication of vascular prosthetic devices, implants and grafts, sequela (2) Hypercoagulable state Code(s): D68.59 - OTHER PRIMARY THROMBOPHILIA
[2016-11-03] MEDS: LORazepam 0.5 MG TABLET PO PRN (09:21)
[2016-11-03] MEDS: BUDESONIDE/FORMETEROL FUMARATE 80/4.5 mcg INHALER IH SCH (09:23)
[2016-11-03] MEDS: LOSARTAN POTASSIUM 50 MG TABLET (FP) PO SCH (09:44)
[2016-11-03] MEDS: PREGABALIN 75 MG CAPSULE PO SCH (09:45)
[2016-11-03] MEDS: CYCLOBENZAPRINE HCL 10 MG TABLET (FP) PO SCH (09:45)
[2016-11-03] MEDS: DULoxetine HCL 30 MG CAPSULE.DR (FP) PO SCH (09:45)
--- NOTE | 2016-11-03 11:07 | PN ---
Progress Note, Physician Chief Complaint: AWAKE ALERT UNDERSTANDS SHE IS HAVING SURGERY TODAY TO TREAT OCCLUDED ARTERY LOWER EXTREMITY. CARDIOLOGY CLEARANCE OBTAINED - Current Medication List Current Medications: Active Medications Acetaminophen (Tylenol -) 650 mg PO Q6H PRN PRN Reason: FEVER OR PAIN Albuterol/Ipratropium (Duoneb -) 1 amp NEB Q6H PRN PRN Reason: SHORTNESS OF BREATH Last Admin: 11/01/16 06:28 Dose: 1 amp Atorvastatin Calcium (Lipitor -) 20 mg PO HS [facility] Last Admin: 11/02/16 21:32 Dose: 20 mg Budesonide/Formoterol Fumarate (Symbicort 80/4.5mcg -) 2 puff IH BID [facility] Last Admin: 11/03/16 09:23 Dose: 2 puff Cyclobenzaprine HCl (Flexeril -) 10 mg PO BID [facility] Last Admin: 11/03/16 09:45 Dose: Not Given Diltiazem HCl (Cardizem Cd -) 120 mg PO DAILY [facility] Last Admin: 11/03/16 09:20 Dose: 120 mg Duloxetine HCl (Cymbalta -) 30 mg PO DAILY [facility] Last Admin: 11/03/16 09:45 Dose: Not Given Hydromorphone HCl (Dilaudid Injection -) 2 mg IVPB Q6H PRN PRN Reason: PAIN Last Admin: 11/03/16 06:48 Dose: 2 mg Hydroxyzine HCl (Atarax -) 25 mg PO TID PRN PRN Reason: FOR ITCHING Insulin Aspart (Novolog Vial Sliding Scale -) 1 vial SQ ACHS [facility] PRN Reason: Protocol Last Admin: 11/03/16 06:42 Dose: Not Given Insulin Detemir (Levemir Vial) 50 units SQ [facility] Last Admin: 11/02/16 21:33 Dose: 50 units Lorazepam (Ativan -) 0.5 mg PO TID PRN PRN Reason: ANXIETY Last Admin: 11/03/16 09:21 Dose: 0.5 mg Losartan Potassium (Cozaar -) 50 mg PO DAILY [facility] Last Admin: 11/03/16 09:44 Dose: 50 mg Meclizine HCl (Antivert -) 25 mg PO TID PRN PRN Reason: VERTIGO Oxycodone HCl (Roxicodone -) 10 mg PO Q6H PRN PRN Reason: PAIN Pregabalin (Lyrica -) 150 mg PO BID [facility] Last Admin: 11/03/16 09:45 Dose: Not Given Trazodone HCl (Desyrel -) 100 mg PO [facility] - Objective Vital Signs: Vital Signs Temperature 98.1 F 11/03/16 06:00 Pulse Rate 88 11/03/16 06:00 Respiratory Rate 20 11/02/16 21:31 Blood Pressure 144/80 11/03/16 06:00 O2 Sat by Pulse Oximetry (%) 98 10/31/16 16:29 Constitutional: Yes: Mild Distress Eyes: Yes: WNL HENT: Yes: WNL Neck: Yes: WNL Cardiovascular: Yes: WNL Respiratory: Yes: WNL Gastrointestinal: Yes: WNL Genitourinary: Yes: WNL Musculoskeletal: Yes: Muscle Weakness Extremities: Yes: WNL Edema: No Peripheral Pulses WNL: Yes Integumentary: Yes: WNL Wound/Incision: Yes: Clean/Dry Neurological: Yes: WNL ...Motor Strength: WNL Psychiatric: Yes: WNL Labs: CBC, BMP 11/03/16 06:45 11/03/16 06:45 INR, PTT INR 0.92 (0.82-1.09) 10/31/16 16:30 Problem List - Problems (1) Occlusion of graft of lower extremity Code(s): T82.898A - OTH COMPLICATION OF VASCULAR PROSTH DEV/GRFT, INIT Qualifiers: Encounter type: sequela Qualified Code(s): T82.898S - Other specified complication of vascular prosthetic devices, implants and grafts, sequela (2) Arterial occlusion Code(s): I74.9 - EMBOLISM AND THROMBOSIS OF UNSPECIFIED ARTERY (3) Chronic kidney disease (CKD) Code(s): N18.9 - CHRONIC KIDNEY DISEASE, UNSPECIFIED (4) Diabetes mellitus Code(s): E11.9 - TYPE 2 DIABETES MELLITUS WITHOUT COMPLICATIONS Assessment/Plan ARTERIAL OCCLUSION ON HEPARIN IV SURGERY TODAY DR CELESTE CARDIOLOGY CLEARANCE CHECK LABS BENEFIT OUTWEIGHS RISK AT THIS TIME ICU POST -OP
[2016-11-03] MEDS ORDERED: DEXTROSE 5%-NORMAL SALINE 1,000 ML IV SCH ×2 (13:00→22:16)
[2016-11-03] MEDS ORDERED: HEPARIN NA (PORCINE) 5,000 UNITS/ML 1ML VIAL ONE (13:21)
[2016-11-03] MEDS ORDERED: ceFAZolin SODIUM 1 GM VIAL IVPB ONE (13:45)
--- NOTE | 2016-11-03 13:50 | PN ---
Progress Note (short form) - Note Progress Note: Patient seen and examined Complains of rest pain left lower extremity. No chest pains, SOB, dysnea, GI complaints of nausea, diarrhea , constipation, No complains of dysuria, hematuria, + menorrhagia, . Last Vital Signs Temp Pulse Resp BP Pulse Ox 97.2 F L 88 20 130/76 98 11/03/16 09:00 11/03/16 09:00 11/03/16 09:00 11/03/16 09:00 10/31/16 16:29 HEENT: GOLDIE, EOM Intact Oropharynx: No thrush, No mucositis Cor: RSR, No murmurs, No gallops Lungs: Clear to P&A Abd: Soft, Normal bowel sounds, No organomegaly Ext:No significant edema, LLE pains Skin: No rashes, Integument intact CBC, BMP 11/03/16 06:45 11/03/16 06:45 Current Medications Generic Name Dose Route Start Last Admin Trade Name Freq PRN Reason Stop Dose Admin Acetaminophen 650 mg 10/31/16 20:06 Tylenol - PO Q6H PRN FEVER OR PAIN Albuterol/Ipratropium 1 amp 10/31/16 20:06 11/01/16 06:28 Duoneb - NEB 1 amp Q6H PRN Administration SHORTNESS OF BREATH Atorvastatin Calcium 20 mg 10/31/16 22:00 11/02/16 21:32 Lipitor - PO 20 mg HS MICK Administration Budesonide/Formoterol Fumarate 2 puff 10/31/16 22:00 11/03/16 09:23 Symbicort 80/4.5mcg - IH 2 puff BID MICK Administration Cyclobenzaprine HCl 10 mg 10/31/16 22:00 11/03/16 09:45 Flexeril - PO Not Given BID MICK Diltiazem HCl 120 mg 11/01/16 10:00 11/03/16 09:20 Cardizem Cd - PO 120 mg DAILY MICK Administration Duloxetine HCl 30 mg 11/01/16 10:00 11/03/16 09:45 Cymbalta - PO Not Given DAILY MICK Hydromorphone HCl 2 mg 10/31/16 21:37 11/03/16 06:48 Dilaudid Injection - IVPB 2 mg Q6H PRN Administration PAIN Hydroxyzine HCl 25 mg 10/31/16 20:06 Atarax - PO TID PRN FOR ITCHING Dextrose/Sodium Chloride 1,000 mls @ 80 mls/hr 11/03/16 13:00 D5-Ns - IV ASDIR [facility] Insulin Aspart 1 vial 10/31/16 22:00 11/03/16 12:14 Novolog Vial Sliding Scale - SQ Not Given ACHS [facility] Protocol Insulin Detemir 50 units 10/31/16 22:00 11/02/16 21:33 Levemir Vial SQ 50 units HS MICK Administration Lorazepam 0.5 mg 10/31/16 20:06 11/03/16 09:21 Ativan - PO 0.5 mg TID PRN Administration ANXIETY Losartan Potassium 50 mg 11/01/16 10:00 11/03/16 09:44 Cozaar - PO 50 mg DAILY MICK Administration Meclizine HCl 25 mg 10/31/16 20:06 Antivert - PO TID PRN VERTIGO Oxycodone HCl 10 mg 10/31/16 20:06 Roxicodone - PO Q6H PRN PAIN Pregabalin 150 mg 10/31/16 22:00 11/03/16 09:45 Lyrica - PO Not Given BID [facility] Trazodone HCl 100 mg 11/03/16 02:01 Desyrel - PO HS [facility] Impression: For ileo-femoral bypass Diabetes Hypertension Hypercoagulable HPL Anemia For surgery Transfusion of packed cells.
[2016-11-03] MEDS ORDERED: LIDOCAINE HCL/PF 2% SDV 5ML VIAL ONE (14:14)
[2016-11-03] MEDS ORDERED: MIDAZOLAM HCL 2 MG/2 ML SINGLE DOSE VIAL ONE ×2 (14:24→19:38)
[2016-11-03] MEDS ORDERED: ETOMIDATE 20 MG/10 ML AMPUL IVPUSH ONE (15:21)
[2016-11-03] MEDS ORDERED: VECURONIUM BROMIDE 10 MG VIAL ONE ×2 (15:21→18:00)
[2016-11-03] MEDS ORDERED: SODIUM CHLORIDE 0.9% P/F 10 ML VIAL IJ ONE ×3 (15:22→18:00)
[2016-11-03] MEDS ORDERED: ceFAZolin SODIUM 1 GM VIAL ONE ×2 (15:31→15:52)
[2016-11-03] MEDS ORDERED: CEFAZOLIN 1 GM/D5W 50 ML IVPB ONE (15:51)
[2016-11-03] MEDS ORDERED: CEFAZOLIN 2 GM in DEXTROSE 5%-WATER - 50 ML IVPB ONE ×2 (15:52→22:16)
[2016-11-03] MEDS ORDERED: DEXAMETHASONE SOD PHOSPHATE 4 MG/1 ML VIAL ONE ×2 (16:06→21:31)
[2016-11-03] MEDS ORDERED: CEFAZOLIN 2 GM/D5W 50 ML IVPB ONE ×2 (16:15→22:16)
--- NOTE | 2016-11-03 16:52 | PN ---
Progress Note (short form) - Note Progress Note: came to see patient, she was in surgery having a fem-pap
[2016-11-03] MEDS ORDERED: ONDANSETRON 4 MG/2 ML VIAL IVPUSH PRN ×2 (17:08→22:16)
[2016-11-03] MEDS ORDERED: PROMETHAZINE HCL 25 MG/1 ML VIAL IVPUSH PRN ×2 (17:08→22:16)
[2016-11-03] MEDS ORDERED: LACTATED RINGERS SOLUTION 1,000 ML IV SCH (17:15)
[2016-11-03] MEDS ORDERED: FENTANYL/BUPIVACAINE/NS/PF - PCEA - 50 ML DISP.SYRIN EP SCH (17:15)
[2016-11-03] MEDS ORDERED: BUPIVACAINE HCL/PF 0.5% (5MG/ML) 10 ML VIAL ONE (18:12)
[2016-11-03] MEDS ORDERED: PAPAVERINE HCL 30 MG/1 ML 10 ML VIAL NR ONE (18:54)
[2016-11-03] MEDS ORDERED: FUROSEMIDE 40 MG/4 ML INJECTABLE VIAL ONE (21:01)
[2016-11-03] MEDS ORDERED: NEOSTIGMINE METHYLSULFATE 0.5 MG/ML - 10 ML MDV ONE (21:36)
[2016-11-03] MEDS ORDERED: GLYCOPYRROLATE 0.2 MG/1 ML VIAL ONE (21:36)
--- NOTE | 2016-11-03 22:08 | OP ---
Operative Note - Note: Operative Date: 11/03/16 Pre-Operative Diagnosis: Left iliac artery occlusion, failed iliofemoral bypass Operation: Aortofemoral bypass with non-reversed saphenous vein. Findings: Small caliber atherosclerotic aorta. Intrabdominal adhesions Patent superficial femoral artery. Post-Operative Diagnosis: Same as Pre-op Surgeon: Walter Neil Mooner: Elvi George (DEISI Parada) Anesthesiologist/BENCH WORKER: Rober Cassidy Anesthesia: General Estimated Blood Loss (mls): 800 Blood Volume Replaced (mls): 5
[2016-11-03] MEDS ORDERED: ALBUTEROL SO4 2.5/IPRATROPIUM 0.5 INH SOL 3 ML VIAL.NEB. NEB PRN (22:16)
[2016-11-03] MEDS ORDERED: oxyCODONE HCL 5 MG TABLET PO PRN (22:16)
[2016-11-03] MEDS ORDERED: MECLIZINE HCL 25 MG TABLET (FP) PO PRN (22:16)
[2016-11-03] MEDS ORDERED: HYDROmorphone HCL CARPU-JECT 2 MG/1 ML DISP.SYRIN IVPB PRN (22:16)
[2016-11-03] MEDS ORDERED: ACETAMINOPHEN 325 MG TABLET (FP) PO PRN (22:16)
[2016-11-03] MEDS ORDERED: METOPROLOL TARTRATE 5 MG/5 ML VIAL ONE (22:23)
[2016-11-03] MEDS: FENTANYL/BUPIVACAINE/NS/PF - PCEA - 50 ML DISP.SYRIN EP SCH (23:20)
[2016-11-03 23:25] LABS: MCH 26.1 pg (25.7-33.7); MCHC 32.8 g/dl (32.0-36.0); MEAN CELL VOLUME 79.6 fl (80-96); MEAN PLT VOLUME 9.5 fl (7.5-11.1); PLATELET COUNT 175 K/MM3 (134-434); RDW 19.6 % (11.6-15.6); WHITE BLOOD COUNT 21.2 K/mm3 (4.0-10.0)
[2016-11-03 23:38] LABS: INR 1.02 (0.82-1.09); PROTHROMBIN TIME (PATIENT) 11.2 SEC (9.98-11.88)
[2016-11-03 23:46] LABS: CREATININE 1.3 mg/dL (0.55-1.02)
[2016-11-04 00:09] LABS: PLATELET ESTIMATE ADEQUATE (NORMAL)
[2016-11-04] MEDS: LACTATED RINGERS SOLUTION 1,000 ML IV SCH ×5 (00:40→21:24)
[2016-11-04] MEDS: CEFAZOLIN (PRE-DOCKED) 50 ML IVPB SCH ×2 (02:27→09:21)
[2016-11-04] MEDS: FENTANYL/BUPIVACAINE/NS/PF - PCEA - 50 ML DISP.SYRIN EP SCH ×4 (04:20→20:00)
--- NOTE | 2016-11-04 04:35 | CONSULT ---
Consult Consult Specialty:: CCM Reason for Consultation:: Post Op from Aortofemoral bypass with non-reversed saphenous vein. - History of Present Illness Chief Complaint: abd pain, leg pain History of Present Illness: Briefly Ms Ren is a 41 year old female with extensive history of PAD, multiple surgeries with Dr Neil. She presented with a recurrent thrombosed graft. She had a left iliac occlusion underwent L fem-fem bypass which failed and then a left iliac to left femoral bypass which unfortunately thrombosed twice before despite full anticoagulation. Thrombosis was opened with thrombolysis and stenting of iliac and femoral anastomoses and last thrombectomy was July 2016. She was maintained on daily Lovenox. There is a presumed hypercoagulable state given her hx and thrombosis on Xarelto. She failed to return for Duplex evaluation of her graft in August and September but presented to Dr Neil office with renewed pain in the left leg at rest. Duplex confirmed reocclusion of the graft. Last night she was taken to OR where she underwent Aortofemoral bypass utilizing a harvested Saphenous vein. The was an estimated 800 cc blood loss, she received a total 5PRBC and 2 FFP. She was extubated in PACU successfully and was admitted to ICU for close monitoring of limb given complexity of surgery and hx of recurrent reocclusion. - History Source History Provided By: Medical Record Limitations to Obtaining History: No Limitations - Past Medical History HOSPITALITY HOST: Yes: CVA (in 2014 -. holter then sg=howed rare APCs, TTE and TAWANNA unremarkable), Other (neuropathy) Cardio/Vascular: Yes: CAD (cath in 11/12 at [facility]: LCx FLY, 80% small D1 -. med managed), HTN, Hyperlipdemia Pulmonary: Yes: Asthma, COPD Gastrointestinal: Yes: GERD ...LMP: 07/21/16 Musculoskeletal: Yes: Osteoarthritis, Other (herniated disc) Endocrine: Yes: Diabetes Mellitus (for over 20 yr s-. insulin for over 10 yrs) - Past Surgical History Past Surgical History: Yes: Bypass, Hernia Repair ([facility]). No: AV Fistula/ Graft Additional Surgical History: POD 1Aortofemoral bypass with non-reversed saphenous vein - Alcohol/Substance Use Hx Alcohol Use: No History of Substance Use: reports: None - Smoking History Smoking history: Former smoker (1-2 ppday) Have you smoked in the past 12 months: No Aproximately how many cigarettes per day: 0 If you are a former smoker, when did you quit?: 10 ya - Social History Usual Living Arrangement: With Spouse History of Recent Travel: No Home Medications - Allergies Allergies/Adverse Reactions: Allergies Allergy/AdvReac Type Severity Reaction Status Date / Time No Known Drug Allergies Allergy Verified 10/31/16 16:29 - Home Medications Home Medications: Ambulatory Orders Atorvastatin Ca [Lipitor] 20 mg PO HS 11/21/15 Budesonide [Pulmicort 0.25 mg Nebulizer -] 1 neb PO BID 11/21/15 Diltiazem [Cardizem -] 120 mg PO DAILY 11/21/15 Liraglutide [Victoza -] 0.6 mg SQ DAILY@0700 11/21/15 Albuterol 0.083% Nebulizer Carolyn [Ventolin 0.083% Nebulizer Soln -] 1 amp NEB Q6HPO amp 12/15/15 Hydroxyzine HCl [Atarax -] 25 mg PO BID PRN 04/15/16 Insulin (Novolog) [Novolog -] 0 units SQ ASDIR 04/15/16 Pregabalin [Lyrica -] 150 mg PO TID 04/15/16 Acetaminophen/Caffeine/Butalb [Fioricet -] 1 tab PO Q6H 04/16/16 Cholecalciferol (Vitamin D3) [Vitamin D3] 50,000 unit PO WEEKLY 04/16/16 Cyclobenzaprine HCl [Flexeril -] 10 mg PO BID 04/16/16 Dapagliflozin Propanediol [Farxiga] 5 mg PO DAILY 04/16/16 Duloxetine HCl [Cymbalta -] 30 mg PO BID #60 capsule.dr 04/17/16 Aspirin [ASA -] 81 mg PO DAILY tab.chew 07/17/16 Clopidogrel Bisulfate [Plavix -] 75 mg PO DAILY #30 tablet 07/17/16 Enoxaparin [Lovenox -] 120 mg SQ BID #30 disp.syrin 07/17/16 Clarithromycin 500 mg PO BID 08/17/16 Insulin Glargine,Hum.rec.anlog [Lantus (10mL VIAL) -] 55 units SQ AM 08/17/16 Lorazepam [Ativan] 0.5 mg PO Q12H MDD 2 12/15/16 Losartan Potassium 25 mg PO DAILY 08/17/16 Meclizine HCl [Antivert -] 25 mg PO TID 08/17/16 Trazodone HCl 100 mg PO BID 08/17/16 Unobtainable 10/31/16 Family Disease History - Family Disease History Family Disease History: Diabetes: Mother ( in her late 50s ), Sister ( in her 40s of substance abuse), Other: Father (had CAV --. in his 70s) Other Family History: brother of substance abuse Review of Systems - Review of Systems Constitutional: reports: No Symptoms Eyes: reports: No Symptoms HENT: reports: No Symptoms Neck: reports: No Symptoms Cardiovascular: reports: No Symptoms Respiratory: reports: No Symptoms Gastrointestinal: reports: No Symptoms Genitourinary: reports: No Symptoms Breasts: reports: No Symptoms Reported Musculoskeletal: reports: Extremity Pain (LLE pain,), Other Integumentary: reports: No Symptoms Neurological: reports: No Symptoms Endocrine: reports: No Symptoms Hematology/Lymphatic: reports: No Symptoms Psychiatric: reports: No Symptoms Physical Exam Vital Signs: Vital Signs Temperature 99.8 F H 11/04/16 02:00 Pulse Rate 98 H 11/04/16 04:20 Respiratory Rate 18 11/04/16 04:20 Blood Pressure 164/80 11/04/16 04:20 O2 Sat by Pulse Oximetry (%) 98 11/04/16 04:20 Constitutional: Yes: Well Nourished, No Distress Eyes: Yes: Conjunctiva Clear, EOM Intact, PERRL HENT: Yes: Atraumatic, Normocephalic Neck: Yes: Trachea Midline. No: Lymphadenopathy Cardiovascular: Yes: Regular Rate and Rhythm, S1, S2 Respiratory: Yes: CTA Bilaterally. No: Accessory Muscle Use Gastrointestinal: Yes: Distention (mild abd distention), Hypoactive Bowel Sounds , Other (abd inscision dressed, no bleeding) ...Rectal Exam: Yes: Deferred Edema: LUE: Trace, RUE: Trace, LLE: Trace, RLE: Trace Peripheral Pulses WNL: (L DP weakly palp, no PT, doppler present in PACU, limb warm to touch,) Integumentary: Yes: WNL Wound/Incision: Yes: Clean/Dry, Dressing Dry and Intact. No: Bleeding Neurological: Yes: WNL ...Motor Strength: WNL Psychiatric: Yes: WNL Labs: CBC, BMP 11/03/16 22:55 11/03/16 22:55 Problem List - Problems (1) Hypercoagulable state Code(s): D68.59 - OTHER PRIMARY THROMBOPHILIA (2) Occlusion of graft of lower extremity Code(s): T82.898A - OTH COMPLICATION OF VASCULAR PROSTH DEV/GRFT, INIT Qualifiers: Encounter type: sequela Qualified Code(s): T82.898S - Other specified complication of vascular prosthetic devices, implants and grafts, sequela (3) Left leg claudication Code(s): I73.9 - PERIPHERAL VASCULAR DISEASE, UNSPECIFIED Assessment/Plan CCM Pt seen and examined in ICU, arrived from PACU A/ 41 yo woman well know to Dr Neil who presented with occlusion of L illiac-fem graft of LLE, no POD1 from aorto-fem bypass. She remains on epidural for pain which is well controlled, the LLE is warm with dopplerable DP noted in PACU. There was 800 cc blood loss in OR for which she was transfused. She is awake, alert and hemodynamically stable P/ -close q2 monitoring of LLE by doppler and as needed -pain controlled via epidural and PRN dilaudid -epidural to be D/c by anesthesia -elevated WBC is likely leukomoid rxn from surgery -K slightly elevated on BMP, will follow up in am -anticoagulation to be restarted by primary team -glycemic control -progress diet in am -maintain in ICU, to Surg floor as per [id number]
[2016-11-04 06:18] LABS: MCH 26.1 pg (25.7-33.7); MCHC 33.4 g/dl (32.0-36.0); MEAN CELL VOLUME 78.2 fl (80-96); MEAN PLT VOLUME 9.4 fl (7.5-11.1); PLATELET COUNT 169 K/MM3 (134-434); RDW 19.9 % (11.6-15.6); WHITE BLOOD COUNT 17.6 K/mm3 (4.0-10.0)
[2016-11-04 06:54] LABS: ALBUMIN 2.5 g/dl (3.4-5.0); ANION GAP 9 (8-16); CALCIUM 7.6 mg/dL (8.5-10.1); CO2 26 mmol/L (21-32); GLUCOSE,RANDOM 234 mg/dL (74-106); SGOT/AST 31 U/L (15-37)
[2016-11-04] MEDS: INSULIN SLIDING SCALE (NOVOLOG) 1 VIAL SQ SCH ×4 (06:59→21:23)
[2016-11-04 07:00] LABS: ALK PHOS 154 U/L (45-117); BILIRUBIN,TOTAL 0.5 mg/dL (0.2-1.0); CREATININE 1.3 mg/dL (0.55-1.02); SGPT/ALT 25 U/L (12-78); TOT PROT 5.9 g/dl (6.4-8.2); TROPONIN I < 0.02 ng/ml (0.00-0.05)
[2016-11-04 07:36] LABS: MAGNESIUM 1.9 mg/dL (1.8-2.4); PHOSPHOROUS 2.7 mg/dL (2.5-4.9)
[2016-11-04] MEDS: BUDESONIDE/FORMETEROL FUMARATE 80/4.5 mcg INHALER IH SCH ×2 (09:22→21:23)
[2016-11-04] MEDS: DULoxetine HCL 30 MG CAPSULE.DR (FP) PO SCH (09:40)
[2016-11-04] MEDS: LOSARTAN POTASSIUM 50 MG TABLET (FP) PO SCH (09:40)
[2016-11-04] MEDS: PREGABALIN 75 MG CAPSULE PO SCH ×2 (09:41→21:23)
[2016-11-04] MEDS: CYCLOBENZAPRINE HCL 10 MG TABLET (FP) PO SCH ×2 (09:41→21:23)
--- NOTE | 2016-11-04 11:12 | PN ---
Progress Note, Physician History of Present Illness: No chest pain or dyspnea. - Current Medication List Current Medications: Active Medications Acetaminophen (Tylenol -) 650 mg PO Q6H PRN PRN Reason: FEVER OR PAIN Albuterol/Ipratropium (Duoneb -) 1 amp NEB Q6H PRN PRN Reason: SHORTNESS OF BREATH Atorvastatin Calcium (Lipitor -) 20 mg PO HS [facility] Budesonide/Formoterol Fumarate (Symbicort 80/4.5mcg -) 2 puff IH BID [facility] Last Admin: 11/04/16 09:22 Dose: 2 puff Cyclobenzaprine HCl (Flexeril -) 10 mg PO BID [facility] Last Admin: 11/04/16 09:41 Dose: Not Given Diltiazem HCl (Cardizem Cd -) 120 mg PO DAILY [facility] Last Admin: 11/04/16 09:40 Dose: Not Given Duloxetine HCl (Cymbalta -) 30 mg PO DAILY [facility] Last Admin: 11/04/16 09:40 Dose: Not Given Enoxaparin Sodium (Lovenox -) 40 mg SQ DAILY [facility] Fentanyl/Bupivacaine/Sodium Chlor (Bupivicaine 0.125%/Fentanyl 2mcg/Ml Pcea -) 50 ml EP ASDIR [facility] PRN Reason: Protocol Last Admin: 11/04/16 09:27 Dose: 50 ml Hydromorphone HCl (Dilaudid Injection -) 2 mg IVPB Q6H PRN PRN Reason: PAIN Hydroxyzine HCl (Atarax -) 25 mg PO TID PRN PRN Reason: FOR ITCHING Dextrose/Sodium Chloride (D5-Ns -) 1,000 mls @ 80 mls/hr IV ASDIR [facility] Lactated Ringer's (Lactated Ringers Solution) 1,000 mls @ 125 mls/hr IV ASDIR [facility] Last Admin: 11/04/16 09:41 Dose: 125 mls/hr Insulin Aspart (Novolog Vial Sliding Scale -) 1 vial SQ ACHS [facility] PRN Reason: Protocol Last Admin: 11/04/16 06:59 Dose: Not Given Insulin Detemir (Levemir Vial) 50 units SQ HS [facility] Lorazepam (Ativan -) 0.5 mg PO TID PRN PRN Reason: ANXIETY Losartan Potassium (Cozaar -) 50 mg PO DAILY [facility] Last Admin: 11/04/16 09:40 Dose: Not Given Meclizine HCl (Antivert -) 25 mg PO TID PRN PRN Reason: VERTIGO Oxycodone HCl (Roxicodone -) 10 mg PO Q6H PRN PRN Reason: PAIN Pregabalin (Lyrica -) 150 mg PO BID [facility] Last Admin: 11/04/16 09:41 Dose: Not Given Trazodone HCl (Desyrel -) 100 mg PO HS [facility] - Objective Vital Signs: Vital Signs Temperature 99.0 F 11/04/16 10:00 Pulse Rate 94 H 11/04/16 10:00 Respiratory Rate 11/04/16 10:00 Blood Pressure 149/89 11/04/16 10:00 O2 Sat by Pulse Oximetry (%) 100 11/04/16 09:27 Constitutional: Yes: Well Nourished, No Distress Eyes: Yes: Conjunctiva Clear, EOM Intact HENT: Yes: Atraumatic, Normocephalic Cardiovascular: Yes: Regular Rate and Rhythm. No: JVD Respiratory: Yes: CTA Bilaterally Gastrointestinal: Yes: Normal Bowel Sounds, Soft. No: Tenderness Labs: CBC, BMP 11/04/16 05:40 11/04/16 05:40 INR, PTT INR 1.02 (0.82-1.09) 11/03/16 22:55 Assessment/Plan 41 yo obese female former smoker, HTN, hyperlipidemia, DM (on insulin), CAD -> PCI of LCx w/ FLY in 11/2011, prior "small MA" in 2014, CVA 01/2015, PAD w/ multiple revascularization procedures in LLE including multiple stents, ileo- fem bypass and subsequent procedures to open graft. Nuclear stress from [facility] on 12/31/14 showed small inferolateral infarct, no ischemia, and EF 63%. Patient hasn't seen a freedom of information officer in about 2 yrs. She used to see Dr. Hill. She was supposed to see freedom of information officer (Dr. Jordan?) in Dr Conley's office but has not done so yet. She has an upcoming appointment. Admitted from Dr. Neil's office with left leg pain and occluded graft. Underwent Underwent aorto-femoral bypass on 11/03/16. Doing well post-op. No cardiac complications. RECS: Patient is currently NPO and not taking her oral meds at this time. Will vasotec IV 1.25 mg IV q6 until patient is able to resume her oral BP meds ( losartan 50 mg po daily and cardizem CD 120 mg po daily). Ensure adequate pain control. Patient to resume aspirin and clopidogrel when OK per vascular surgery. Will follow. Please call with questions.
[2016-11-04] MEDS ORDERED: LORAZEPAM CARPU-JECT 2 MG/ML DISP.SYRIN IVPUSH PRN (11:21)
--- NOTE | 2016-11-04 11:24 | PN ---
Progress Note (short form) - Note Progress Note: POD 1 C/o pain VSSAbd full, soft. Dressing dry Ext: Left foot warm. 3+ PT doppler. Labs WNL Stable s/p aortofemoral bypass Bed rest Leave ZE and bhandari today. Problem List - Problems (1) Occlusion of graft of lower extremity Code(s): T82.898A - OTH COMPLICATION OF VASCULAR PROSTH DEV/GRFT, INIT Qualifiers: Qualified Code(s): T82.898S - Other specified complication of vascular prosthetic devices, implants and grafts, sequela (2) Hypercoagulable state Code(s): D68.59 - OTHER PRIMARY THROMBOPHILIA
[2016-11-04] MEDS: ENALAPRILAT DIHYDRATE 1.25 MG/1 ML VIAL IVPB SCH ×3 (11:30→21:37)
[2016-11-04] MEDS: ENOXAPARIN NA (PORCINE) 40 MG/0.4 ML DISP.SYRIN SQ SCH (11:32)
--- NOTE | 2016-11-04 11:40 | CON.GI ---
Consult Consult Specialty:: GI Referred by:: Dr Conley Reason for Consultation:: Anemia - History of Present Illness Chief Complaint: L leg pain History of Present Illness: 41 F with h/o hypercoagulable state of unclear etiology. with multiple stents placed, DM, HTN, HLD, CVA's, now back with L leg pain found to be secondary to occlusion of ileofemoral graft for the 3rd time (on AC) She is now S/P aortofemoral bypass yesterday. I am called to address microcytic anemia. Of note , patient had a colonoscopy at [facility] last year which she states was normal other than diverticulosis. No report available. 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 holter then sg=howed rare APCs, TTE and TAWANNA unremarkable), Other (neuropathy) Cardio/Vascular: Yes: CAD (cath in 11/12 at [facility]: LCx FLY, 80% small D1 -. med managed), HTN, Hyperlipdemia Pulmonary: Yes: Asthma, COPD Gastrointestinal: Yes: GERD ...LMP: 07/21/16 Musculoskeletal: Yes: Osteoarthritis, Other (herniated disc) Endocrine: Yes: Diabetes Mellitus (for over 20 yr s-. insulin for over 10 yrs) - Past Surgical History Past Surgical History: Yes: Bypass, Hernia Repair ([facility]). No: AV Fistula/ Graft Additional Surgical History: POD 1Aortofemoral bypass with non-reversed saphenous vein - Alcohol/Substance Use Hx Alcohol Use: No History of Substance Use: reports: None - Smoking History Smoking history: Former smoker (1-2 ppday) Have you smoked in the past 12 months: No Aproximately how many cigarettes per day: 0 If you are a former smoker, when did you quit?: 10 ya - Social History Usual Living Arrangement: With Spouse History of Recent Travel: No Home Medications - Allergies Allergies/Adverse Reactions: Allergies Allergy/AdvReac Type Severity Reaction Status Date / Time No Known Drug Allergies Allergy Verified 10/31/16 16:29 - Home Medications Home Medications: Ambulatory Orders Atorvastatin Ca [Lipitor] 20 mg PO HS 11/21/15 Budesonide [Pulmicort 0.25 mg Nebulizer -] 1 neb PO BID 11/21/15 Diltiazem [Cardizem -] 120 mg PO DAILY 11/21/15 Liraglutide [Victoza -] 0.6 mg SQ DAILY@0700 11/21/15 Albuterol 0.083% Nebulizer Carolyn [Ventolin 0.083% Nebulizer Soln -] 1 amp NEB Q6HPO amp 12/15/15 Hydroxyzine HCl [Atarax -] 25 mg PO BID PRN 04/15/16 Insulin (Novolog) [Novolog -] 0 units SQ ASDIR 04/15/16 Pregabalin [Lyrica -] 150 mg PO TID 04/15/16 Acetaminophen/Caffeine/Butalb [Fioricet -] 1 tab PO Q6H 04/16/16 Cholecalciferol (Vitamin D3) [Vitamin D3] 50,000 unit PO WEEKLY 04/16/16 Cyclobenzaprine HCl [Flexeril -] 10 mg PO BID 04/16/16 Dapagliflozin Propanediol [Farxiga] 5 mg PO DAILY 04/16/16 Duloxetine HCl [Cymbalta -] 30 mg PO BID #60 capsule.dr 04/17/16 Aspirin [ASA -] 81 mg PO DAILY tab.chew 07/17/16 Clopidogrel Bisulfate [Plavix -] 75 mg PO DAILY #30 tablet 07/17/16 Enoxaparin [Lovenox -] 120 mg SQ BID #30 disp.syrin 07/17/16 Clarithromycin 500 mg PO BID 08/17/16 Insulin Glargine,Hum.rec.anlog [Lantus (10mL VIAL) -] 55 units SQ AM 08/17/16 Lorazepam [Ativan] 0.5 mg PO Q12H MDD 2 08/17/16 Losartan Potassium 25 mg PO DAILY 08/17/16 Meclizine HCl [Antivert -] 25 mg PO TID 08/17/16 Trazodone HCl 100 mg PO BID 08/17/16 Unobtainable 10/31/16 Family Disease History - Family Disease History Family Disease History: Diabetes: Mother ( in her late 50s ), Sister ( in her 40s of substance abuse), Other: Father (had CAV --. in his 70s) Other Family History: brother of substance abuse Physical Exam-GI Vital Signs: Vital Signs Temperature 99.0 F 11/04/16 10:00 Pulse Rate 94 H 11/04/16 10:00 Respiratory Rate 17 11/04/16 10:00 Blood Pressure 149/89 11/04/16 10:00 O2 Sat by Pulse Oximetry (%) 100 11/04/16 09:27 Constitutional: Yes: Obese HENT: Yes: Normocephalic, Other (NGT in place) Cardiovascular: Yes: Regular Rate and Rhythm Respiratory: Yes: Regular, CTA Bilaterally Gastrointestinal Inspection: Yes: WNL, Scars (Fresh vertical, midline incision on anterior abdomen with dressing in place.) ...Auscultate: Yes: Hypoactive Bowel Sounds ...Palpate: Yes: Soft, Tenderness (expected post-op) Neurological: Yes: Alert, Oriented Labs: CBC, BMP 11/04/16 05:40 11/04/16 05:40 INR, PTT INR 1.02 (0.82-1.09) 11/03/16 22:55 Assessment/Plan 41 F with above history now post-op with microcytic anemia. Patient denies bleeding. She states she checks her stool and has not seen black or bloody stools. She is currently guaiac negative. Hematology on case As she had a colonoscopy last year, repeat not necessary unless theere is active bleeding. Will obtain report from [facility]. No need for further inpatient w/u. Will see as opt and will do EGD while on AC to r/o upper GI lesion.
--- NOTE | 2016-11-04 18:20 | PN ---
Progress Note, Physician Chief Complaint: AWAKE ALERT POD #1 5/ INTENSITY OF PAIN - Current Medication List Current Medications: Active Medications Acetaminophen (Tylenol -) 650 mg PO Q6H PRN PRN Reason: FEVER OR PAIN Albuterol/Ipratropium (Duoneb -) 1 amp NEB Q6H PRN PRN Reason: SHORTNESS OF BREATH Atorvastatin Calcium (Lipitor -) 20 mg PO HS [facility] Budesonide/Formoterol Fumarate (Symbicort 80/4.5mcg -) 2 puff IH BID [facility] Last Admin: 11/04/16 09:22 Dose: 2 puff Cyclobenzaprine HCl (Flexeril -) 10 mg PO BID [facility] Last Admin: 11/04/16 09:41 Dose: Not Given Diltiazem HCl (Cardizem Cd -) 120 mg PO DAILY [facility] Last Admin: 11/04/16 09:40 Dose: Not Given Duloxetine HCl (Cymbalta -) 30 mg PO DAILY [facility] Last Admin: 11/04/16 09:40 Dose: Not Given Enalaprilat (Vasotec Injection -) 1.25 mg IVPB Q6H-IV [facility] Last Admin: 11/04/16 14:39 Dose: 1.25 mg Enoxaparin Sodium (Lovenox -) 40 mg SQ DAILY [facility] Last Admin: 11/04/16 11:32 Dose: 40 mg Fentanyl/Bupivacaine/Sodium Chlor (Bupivicaine 0.125%/Fentanyl 2mcg/Ml Pcea -) 50 ml EP ASDIR [facility] PRN Reason: Protocol Last Admin: 11/04/16 14:38 Dose: 50 ml Hydromorphone HCl (Dilaudid Injection -) 2 mg IVPB Q6H PRN PRN Reason: PAIN Hydroxyzine HCl (Atarax -) 25 mg PO TID PRN PRN Reason: FOR ITCHING Lactated Ringer's (Lactated Ringers Solution) 1,000 mls @ 100 mls/hr IV ASDIR [facility] Last Admin: 11/04/16 11:30 Dose: 100 mls/hr Insulin Aspart (Novolog Vial Sliding Scale -) 1 vial SQ ACHS [facility] PRN Reason: Protocol Last Admin: 11/04/16 16:59 Dose: Not Given Insulin Detemir (Levemir Vial) 50 units SQ [facility] Lorazepam (Ativan -) 0.5 mg PO TID PRN PRN Reason: ANXIETY Lorazepam (Ativan Injection -) 0.5 mg IVPUSH TID PRN PRN Reason: ANXIETY Losartan Potassium (Cozaar -) 50 mg PO DAILY [facility] Last Admin: 11/04/16 09:40 Dose: Not Given Meclizine HCl (Antivert -) 25 mg PO TID PRN PRN Reason: VERTIGO Oxycodone HCl (Roxicodone -) 10 mg PO Q6H PRN PRN Reason: PAIN Pregabalin (Lyrica -) 150 mg PO BID [facility] Last Admin: 11/04/16 09:41 Dose: Not Given Trazodone HCl (Desyrel -) 100 mg PO [facility] - Objective Vital Signs: Vital Signs Temperature 99.5 F 11/04/16 16:00 Pulse Rate 91 H 11/04/16 16:00 Respiratory Rate 13 11/04/16 16:00 Blood Pressure 146/86 11/04/16 16:00 O2 Sat by Pulse Oximetry (%) 100 11/04/16 14:38 Constitutional: Yes: Mild Distress Eyes: Yes: WNL HENT: Yes: WNL Neck: Yes: WNL Cardiovascular: Yes: WNL Respiratory: Yes: WNL Gastrointestinal: Yes: Tenderness Musculoskeletal: Yes: Muscle Weakness Extremities: Yes: Other Edema: No Peripheral Pulses WNL: Yes Integumentary: Yes: Other Wound/Incision: Yes: Dressing Dry and Intact Neurological: Yes: Pre-Existing Deficit, Other ...Motor Strength: LLE, RLE Psychiatric: Yes: WNL Labs: CBC, BMP 11/04/16 05:40 11/04/16 05:40 INR, PTT INR 1.02 (0.82-1.09) 11/03/16 22:55 Problem List - Problems (1) Occlusion of graft of lower extremity Code(s): T82.898A - OTH COMPLICATION OF VASCULAR PROSTH DEV/GRFT, INIT Qualifiers: Encounter type: sequela Qualified Code(s): T82.898S - Other specified complication of vascular prosthetic devices, implants and grafts, sequela (2) Arterial occlusion Code(s): I74.9 - EMBOLISM AND THROMBOSIS OF UNSPECIFIED ARTERY (3) Chronic kidney disease (CKD) Code(s): N18.9 - CHRONIC KIDNEY DISEASE, UNSPECIFIED (4) Diabetes mellitus Code(s): E11.9 - TYPE 2 DIABETES MELLITUS WITHOUT COMPLICATIONS Assessment/Plan POD #1 FEELING BETTER WITH PAIN MED CONTROL AC CONTINUED ICU UNTIL MORE STABLE DIABETIC DIET BGM CHECK CHART AND EVENTS O.R. ALL REVIEWED
--- NOTE | 2016-11-04 18:54 | PN ---
Progress Note, Physician Chief Complaint: Pt. pain controlled with epidural, no PONV, no GA complaints. - Current Medication List Current Medications: Active Medications Acetaminophen (Tylenol -) 650 mg PO Q6H PRN PRN Reason: FEVER OR PAIN Albuterol/Ipratropium (Duoneb -) 1 amp NEB Q6H PRN PRN Reason: SHORTNESS OF BREATH Atorvastatin Calcium (Lipitor -) 20 mg PO [facility] Budesonide/Formoterol Fumarate (Symbicort 80/4.5mcg -) 2 puff IH BID [facility] Last Admin: 11/04/16 09:22 Dose: 2 puff Cyclobenzaprine HCl (Flexeril -) 10 mg PO BID [facility] Last Admin: 11/04/16 09:41 Dose: Not Given Diltiazem HCl (Cardizem Cd -) 120 mg PO DAILY [facility] Last Admin: 11/04/16 09:40 Dose: Not Given Duloxetine HCl (Cymbalta -) 30 mg PO DAILY [facility] Last Admin: 11/04/16 09:40 Dose: Not Given Enalaprilat (Vasotec Injection -) 1.25 mg IVPB Q6H-IV [facility] Last Admin: 11/04/16 14:39 Dose: 1.25 mg Enoxaparin Sodium (Lovenox -) 40 mg SQ DAILY [facility] Last Admin: 11/04/16 11:32 Dose: 40 mg Fentanyl/Bupivacaine/Sodium Chlor (Bupivicaine 0.125%/Fentanyl 2mcg/Ml Pcea -) 50 ml EP ASDIR [facility] PRN Reason: Protocol Last Admin: 11/04/16 14:38 Dose: 50 ml Hydromorphone HCl (Dilaudid Injection -) 2 mg IVPB Q6H PRN PRN Reason: PAIN Hydroxyzine HCl (Atarax -) 25 mg PO TID PRN PRN Reason: FOR ITCHING Lactated Ringer's (Lactated Ringers Solution) 1,000 mls @ 100 mls/hr IV ASDIR [facility] Last Admin: 11/04/16 11:30 Dose: 100 mls/hr Insulin Aspart (Novolog Vial Sliding Scale -) 1 vial SQ ACHS [facility] PRN Reason: Protocol Last Admin: 11/04/16 16:59 Dose: Not Given Insulin Detemir (Levemir Vial) 50 units SQ [facility] Lorazepam (Ativan -) 0.5 mg PO TID PRN PRN Reason: ANXIETY Lorazepam (Ativan Injection -) 0.5 mg IVPUSH TID PRN PRN Reason: ANXIETY Losartan Potassium (Cozaar -) 50 mg PO DAILY [facility] Last Admin: 11/04/16 09:40 Dose: Not Given Meclizine HCl (Antivert -) 25 mg PO TID PRN PRN Reason: VERTIGO Oxycodone HCl (Roxicodone -) 10 mg PO Q6H PRN PRN Reason: PAIN Pregabalin (Lyrica -) 150 mg PO BID [facility] Last Admin: 11/04/16 09:41 Dose: Not Given Trazodone HCl (Desyrel -) 100 mg PO HS [facility] - Objective Vital Signs: Vital Signs Temperature 98.8 F 11/04/16 18:00 Pulse Rate 86 11/04/16 18:00 Respiratory Rate 13 11/04/16 18:00 Blood Pressure 146/85 11/04/16 18:00 O2 Sat by Pulse Oximetry (%) 100 11/04/16 14:38 Constitutional: Yes: Well Nourished, No Distress, Calm Musculoskeletal: Yes: WNL Neurological: Yes: WNL, Alert, Oriented Labs: CBC, BMP 11/04/16 05:40 11/04/16 05:40 INR, PTT INR 1.02 (0.82-1.09) 11/03/16 22:55 Assessment/Plan POD#1 s/p left aortofemoral bypass, Left femoral vein graft under GA with epidural ILLUSTRATOR SET. Doing well. Continue epidural.
[2016-11-04] MEDS: traZODone HCL 50 MG TABLET (FP) PO SCH (21:22)
[2016-11-04] MEDS: ATORVASTATIN CA 20 MG TABLET (FP) PO SCH (21:23)
--- NOTE | 2016-11-04 21:32 | OP ---
DATE OF OPERATION: 11/03/2016 SURGEON: Walter Neil MD CHILD CARE SITTER: DEISI Chua and DEISI Mariscal ANESTHESIA: General. ANESTHESIOLOGIST: Rober Cassidy MD PROCEDURE: Aorta to left femoral artery bypass with nonreversed saphenous vein. 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 OPERATIVE FINDINGS: The infrarenal abdominal aorta was small caliber and had thick and atherosclerotic patel. There were dense adhesions of small bowel and omentum to the anterior abdominal wall at the site of previous hernia repairs. The proximal superficial femoral artery was patent. OPERATIVE PROCEDURE: Following routine patient identification, side and site verification, general anesthesia was induced. Muro catheter and nasogastric tube were placed. The abdomen and left lower extremity were prepped with ChloraPrep. Sterile drapes were applied. A left paramedian incision was made extending from the left lower quadrant to the mid left upper quadrant. This was carried down to the subcutaneous tissue using cautery. The anterior rectus sheath was incised and the underlying muscle fibers . The posterior sheath was then incised down to the peritoneal cavity. Adhesions to the underside of the fascia were divided using sharp dissection. The small bowel was retracted to the right. The sigmoid colon was elevated up onto its mesentery in order to gain access to the retroperitoneum. The colon was mobilized up to the splenic flexure. Retroperitoneal tissues were dissected sharply using cautery and LigaSure. The infrarenal aorta was exposed by division of the overlying tissue. A large gonadal left ovarian vein was seen and protected. Several branches were ligated with silk ties and divided. The left ureter was identified and the retroperitoneum was left undisturbed. After mobilization of the aorta, it was encircled with umbilical tapes. There were no lumbar vessels in the area to be used for the anastomosis. The abdomen was then packed with moist lap pads, and attention was turned to the left leg. A long incision was made in the thigh over the previously mapped greater saphenous vein. Subcutaneous tissues were divided sharply using cautery for hemostasis. The vein was identified and was then mobilized from the upper thigh to the level of the knee. All side branches of the vein were ligated and divided. The vein was cannulated distally through a large side branch and distended with heparin and papaverine solution. The vein was wrapped in moist gauze. The wound was then deepened through the muscle fascia, and the superficial femoral artery was identified in the inferior aspect of the incision. It was mobilized and secured with Vessel Loops. A clamp was then advanced proximally between the muscle bellies of the adductor muscles towards the obturator canal. A hand was placed in the pelvis, and the bladder was mobilized medially to gain access to the pelvic floor. The clamp was then advanced through the obturator membrane and spread. There was venous bleeding identified after this maneuver. The clamp was removed, and pressure was held from above and below. The wound was extended skin excision distally, and additional soft tissue was divided to gain better access to the pelvis. With this maneuver, the area of bleeding was easily seen and was controlled with suture ligatures of 5-0 Prolene. With hemostasis achieved, the obturator membrane was again punctured and umbilical tape passed through the area to dorene it. It was dilated with finger from above and below to make an adequate tract for the bypass. The length of vein to be used was adequate. The saphenous vein was then removed with suture ligatures proximally and distally on the stumps. The vein was distended with heparin solution. The patient was systemically heparinized. The aorta was occluded with vascular clamps, and a longitudinal arteriotomy measuring approximately 1 cm was made. Stay sutures of Prolene were placed in the thickened atherosclerotic patel with care not to dissect the plaque. The proximal end of the vein was then spatulated and anastamosed at the site of the aorta with running sutures of 5-0 Prolene. Prior to placing the suture line, the artery was allowed to back bleed and flush, and the lumen was filled with heparin solution. The suture line was then completed, and the clamps were removed. An additional suture of 5-0 Prolene was required to obtain hemostasis from the heel of the anastomosis. The vein filled to the 1st competent valve. A modified Rodrigez valvulotome was then used to perform valvulotomy. There was excellent flow through the conduit. The vein was allowed to straighten and was marked to prevent twisting. Retroperitoneal tunnel was then created with a clamp and brought down to the pelvis. The vein was passed through the tunnel with care not to twist it. It was then passed through the previously made tunnel through the obturator membrane to right next to the femoral artery and thigh. The femoral artery was occluded Bulldog clamps and opened with a 1-cm arteriotomy. The vein was then trimmed for length, spatulated, and anastomosed to the side of the artery with running suture of 6-0 Prolene. Prior to completion of suture line, the artery was allowed to back bleed and flush, and the vein was allowed to flush. Suture line was then completed, and all clamps were removed. There was good flow through the bypass graft with a strong valvular signal distally in the femoral artery and then the posterior tibial artery at the ankle. Attention was returned to the abdomen. The retroperitoneal tissues were irrigated, and there was no bleeding seen. The bowel was returned to its normal position. A defect in the sigmoid mesentery was closed with running suture of 3-0 Prolene to prevent internal hernia. The abdominal wound was then closed in layers with 0 PDS on the posterior rectus sheath and then the anterior rectus sheath a 00 PDS was used. Subcutaneous tissues were irrigated with saline, and the skin was closed with manuel. The thigh wound was closed with running suture of 3-0 Vicryl and skin manuel. Sterile dressings were applied. The patient was extubated and taken to the intensive care unit in stable condition. Sharath [id number]
[2016-11-04] MEDS ORDERED: INSULIN DETEMIR 100 UNITS/ML MDV SQ SCH (22:00)
[2016-11-05] MEDS: FENTANYL/BUPIVACAINE/NS/PF - PCEA - 50 ML DISP.SYRIN EP SCH ×2 (01:30→11:10)
[2016-11-05] MEDS: ENALAPRILAT DIHYDRATE 1.25 MG/1 ML VIAL IVPB SCH ×4 (03:42→21:15)
[2016-11-05] MEDS: INSULIN SLIDING SCALE (NOVOLOG) 1 VIAL SQ SCH ×4 (06:11→22:40)
[2016-11-05] MEDS: LACTATED RINGERS SOLUTION 1,000 ML IV SCH ×2 (08:00→11:22)
--- NOTE | 2016-11-05 08:24 | PN ---
Progress Note, Physician History of Present Illness: No chest pain or dyspnea. - Current Medication List Current Medications: Active Medications Acetaminophen (Tylenol -) 650 mg PO Q6H PRN PRN Reason: FEVER OR PAIN Albuterol/Ipratropium (Duoneb -) 1 amp NEB Q6H PRN PRN Reason: SHORTNESS OF BREATH Atorvastatin Calcium (Lipitor -) 20 mg PO HS [facility] Last Admin: 11/04/16 21:23 Dose: Not Given Budesonide/Formoterol Fumarate (Symbicort 80/4.5mcg -) 2 puff IH BID [facility] Last Admin: 11/04/16 21:23 Dose: 2 puff Cyclobenzaprine HCl (Flexeril -) 10 mg PO BID [facility] Last Admin: 11/04/16 21:23 Dose: Not Given Diltiazem HCl (Cardizem Cd -) 120 mg PO DAILY [facility] Last Admin: 11/04/16 09:40 Dose: Not Given Duloxetine HCl (Cymbalta -) 30 mg PO DAILY [facility] Last Admin: 11/04/16 09:40 Dose: Not Given Enalaprilat (Vasotec Injection -) 1.25 mg IVPB Q6H-IV [facility] Last Admin: 11/05/16 03:42 Dose: 1.25 mg Enoxaparin Sodium (Lovenox -) 40 mg SQ DAILY [facility] Last Admin: 11/04/16 11:32 Dose: 40 mg Fentanyl/Bupivacaine/Sodium Chlor (Bupivicaine 0.125%/Fentanyl 2mcg/Ml Pcea -) 50 ml EP ASDIR [facility] PRN Reason: Protocol Last Admin: 11/05/16 01:30 Dose: 50 ml Hydromorphone HCl (Dilaudid Injection -) 2 mg IVPB Q6H PRN PRN Reason: PAIN Hydroxyzine HCl (Atarax -) 25 mg PO TID PRN PRN Reason: FOR ITCHING Lactated Ringer's (Lactated Ringers Solution) 1,000 mls @ 100 mls/hr IV ASDIR [facility] Last Admin: 11/04/16 21:24 Dose: 100 mls/hr Insulin Aspart (Novolog Vial Sliding Scale -) 1 vial SQ ACHS [facility] PRN Reason: Protocol Last Admin: 11/05/16 06:11 Dose: Not Given Insulin Detemir (Levemir Vial) 50 units SQ [facility] Last Admin: 11/04/16 21:40 Dose: 50 unit Lorazepam (Ativan -) 0.5 mg PO TID PRN PRN Reason: ANXIETY Lorazepam (Ativan Injection -) 0.5 mg IVPUSH TID PRN PRN Reason: ANXIETY Last Admin: 11/04/16 21:38 Dose: 0.5 mg Losartan Potassium (Cozaar -) 50 mg PO DAILY [facility] Last Admin: 11/04/16 09:40 Dose: Not Given Meclizine HCl (Antivert -) 25 mg PO TID PRN PRN Reason: VERTIGO Oxycodone HCl (Roxicodone -) 10 mg PO Q6H PRN PRN Reason: PAIN Pregabalin (Lyrica -) 150 mg PO BID [facility] Last Admin: 11/04/16 21:23 Dose: Not Given Trazodone HCl (Desyrel -) 100 mg PO [facility] Last Admin: 11/04/16 21:22 Dose: Not Given - Objective Vital Signs: Vital Signs Temperature 98.8 F 11/05/16 08:00 Pulse Rate 80 11/05/16 08:20 Respiratory Rate 16 11/05/16 08:20 Blood Pressure 148/81 11/05/16 08:20 O2 Sat by Pulse Oximetry (%) 100 11/05/16 08:00 Constitutional: Yes: No Distress HENT: Yes: Atraumatic, Normocephalic Cardiovascular: Yes: Regular Rate and Rhythm. No: JVD, Murmur Respiratory: Yes: CTA Bilaterally Gastrointestinal: Yes: Normal Bowel Sounds, Soft. No: Tenderness Edema: No Labs: CBC, BMP 11/04/16 05:40 11/04/16 05:40 INR, PTT INR 1.02 (0.82-1.09) 11/03/16 22:55 Assessment/Plan 41 yo obese female former smoker, HTN, hyperlipidemia, DM (on insulin), CAD -> PCI of LCx w/ FLY in 11/2011, prior "small MN" in 2014, CVA 01/2015, PAD w/ multiple revascularization procedures in E including multiple stents, ileo- fem bypass and subsequent procedures to open graft. Nuclear stress from [place] on 12/31/14 showed small inferolateral infarct, no ischemia, and EF 63%. Patient hasn't seen a vocational training instructor in about 2 yrs. She used to see Dr. Hill. She was supposed to see vocational training instructor (Dr. Jordan?) in Dr Conley's office but has not done so yet. She has an upcoming appointment. Admitted from Dr. Neil's office with left leg pain and occluded graft. Underwent aorto-femoral bypass on 11/03/16. Doing well post-op. No cardiac complications. RECS: Patient is currently NPO with NG tube, nd not taking her oral meds at this time. Will continue vasotec IV 1.25 mg IV q6 until patient is able to resume her oral BP meds. When NG tube is removed, may resume oral meds losartan 50 mg po daily and cardizem CD 120 mg po daily. BP 140s acceptable for now. Ensure adequate pain control. Patient to resume aspirin and clopidogrel when OK per vascular surgery, however , would wait for at least 48 hours after epidural is removed. Will follow. Please call with questions.
[2016-11-05 08:53] LABS: MCH 25.9 pg (25.7-33.7); MCHC 32.3 g/dl (32.0-36.0); MEAN CELL VOLUME 80.2 fl (80-96); MEAN PLT VOLUME 8.8 fl (7.5-11.1); PLATELET COUNT 161 K/MM3 (134-434); RDW 20.5 % (11.6-15.6); WHITE BLOOD COUNT 14.4 K/mm3 (4.0-10.0)
[2016-11-05] MEDS: LOSARTAN POTASSIUM 50 MG TABLET (FP) PO SCH (09:03)
[2016-11-05] MEDS: DULoxetine HCL 30 MG CAPSULE.DR (FP) PO SCH (09:03)
[2016-11-05] MEDS: PREGABALIN 75 MG CAPSULE PO SCH ×2 (09:04→21:45)
[2016-11-05] MEDS: CYCLOBENZAPRINE HCL 10 MG TABLET (FP) PO SCH ×2 (09:04→21:44)
[2016-11-05] MEDS: BUDESONIDE/FORMETEROL FUMARATE 80/4.5 mcg INHALER IH SCH ×2 (09:12→21:48)
--- NOTE | 2016-11-05 09:45 | PN ---
Progress Note (short form) - Note Progress Note: Patient seen and examined in the ICU. Awake and alert. Reports some mild abdominal/groin discomfort. No CP or SOB. Remains NPO with NGT in place. No flatus reported. Intake & Output 11/02/16 11/03/16 11/04/16 11/05/16 23:59 23:59 23:59 23:59 Intake Total 2234 5454 2387.5 1325 Output Total 3200 2700 950 Balance 2234 2254 -312.5 375 Weight 167 lb 165 lb 9 oz Last Vital Signs Temp Pulse Resp BP Pulse Ox 98.8 F 80 16 148/81 100 11/05/16 08:00 11/05/16 08:20 11/05/16 08:20 11/05/16 08:20 11/05/16 08:00 Active Medications Acetaminophen (Tylenol -) 650 mg PO Q6H PRN PRN Reason: FEVER OR PAIN Albuterol/Ipratropium (Duoneb -) 1 amp NEB Q6H PRN PRN Reason: SHORTNESS OF BREATH Atorvastatin Calcium (Lipitor -) 20 mg PO HS [facility] Last Admin: 11/04/16 21:23 Dose: Not Given Budesonide/Formoterol Fumarate (Symbicort 80/4.5mcg -) 2 puff IH BID [facility] Last Admin: 11/05/16 09:12 Dose: 2 puff Cyclobenzaprine HCl (Flexeril -) 10 mg PO BID [facility] Last Admin: 11/05/16 09:04 Dose: Not Given Diltiazem HCl (Cardizem Cd -) 120 mg PO DAILY [facility] Last Admin: 11/05/16 09:03 Dose: Not Given Duloxetine HCl (Cymbalta -) 30 mg PO DAILY [facility] Last Admin: 11/05/16 09:03 Dose: Not Given Enalaprilat (Vasotec Injection -) 1.25 mg IVPB Q6H-IV [facility] Last Admin: 11/05/16 08:36 Dose: 1.25 mg Enoxaparin Sodium (Lovenox -) 40 mg SQ DAILY [facility] Last Admin: 11/04/16 11:32 Dose: 40 mg Fentanyl/Bupivacaine/Sodium Chlor (Bupivicaine 0.125%/Fentanyl 2mcg/Ml Pcea -) 50 ml EP ASDIR [facility] PRN Reason: Protocol Last Admin: 11/05/16 01:30 Dose: 50 ml Hydromorphone HCl (Dilaudid Injection -) 2 mg IVPB Q6H PRN PRN Reason: PAIN Hydroxyzine HCl (Atarax -) 25 mg PO TID PRN PRN Reason: FOR ITCHING Lactated Ringer's (Lactated Ringers Solution) 1,000 mls @ 100 mls/hr IV ASDIR [facility] Last Admin: 11/05/16 08:00 Dose: 100 mls/hr Insulin Aspart (Novolog Vial Sliding Scale -) 1 vial SQ ACHS [facility] PRN Reason: Protocol Last Admin: 11/05/16 06:11 Dose: Not Given Insulin Detemir (Levemir Vial) 50 units SQ [facility] Last Admin: 11/04/16 21:40 Dose: 50 unit Lorazepam (Ativan -) 0.5 mg PO TID PRN PRN Reason: ANXIETY Lorazepam (Ativan Injection -) 0.5 mg IVPUSH TID PRN PRN Reason: ANXIETY Last Admin: 11/04/16 21:38 Dose: 0.5 mg Losartan Potassium (Cozaar -) 50 mg PO DAILY [facility] Last Admin: 11/05/16 09:03 Dose: Not Given Meclizine HCl (Antivert -) 25 mg PO TID PRN PRN Reason: VERTIGO Oxycodone HCl (Roxicodone -) 10 mg PO Q6H PRN PRN Reason: PAIN Pregabalin (Lyrica -) 150 mg PO BID [facility] Last Admin: 11/05/16 09:04 Dose: Not Given Trazodone HCl (Desyrel -) 100 mg PO [facility] Last Admin: 11/04/16 21:22 Dose: Not Given Constitutional: Yes: Awake and alert, No Distress Eyes: Yes: Conjunctiva Clear, EOM Intact, PERRL HENT: Yes: Atraumatic, Normocephalic Neck: Yes: Trachea Midline. No: Lymphadenopathy Cardiovascular: Yes: Regular Rate and Rhythm, S1, S2 Respiratory: Yes: CTA Bilaterally. No: Accessory Muscle Use Gastrointestinal: Yes: Distention (mild abd distention), Hypoactive Bowel Sounds , Other (abd inscision dressed, no bleeding) ...Rectal Exam: Yes: Deferred Edema: LUE: Trace, RUE: Trace, LLE: Trace, RLE: Trace Peripheral Pulses WNL: (L DP weakly palp, no PT, doppler present in PACU, limb warm to touch,) Integumentary: Yes: WNL Wound/Incision: Yes: Clean/Dry, Dressing Dry and Intact. No: Bleeding Neurological: Yes: WNL ...Motor Strength: WNL Psychiatric: Yes: WNL Labs: Laboratory Results - last 24 hr 11/03/16 11/03/16 11/04/16 06:45 08:00 06:34 WBC RBC Hgb Hct MCV MCHC RDW Plt Count MPV PTT (Actin FS) Sodium Potassium Chloride Carbon Dioxide Anion Gap BUN Creatinine POC Glucometer [phone] Random Glucose Calcium Anti-Cardiolipin IgG Ab <9 Anti-Cardiolipin IgA Ab <9 Anti-Cardiolipin IgM Ab <9 Crossmatch See Detail Crossmatch IS Only See Detail 11/04/16 11/04/16 11/04/16 11:11 16:57 21:19 WBC RBC Hgb Hct MCV MCHC RDW Plt Count MPV PTT (Actin FS) Sodium Potassium Chloride Carbon Dioxide Anion Gap BUN Creatinine POC Glucometer 184 134 133 Random Glucose Calcium Anti-Cardiolipin IgG Ab Anti-Cardiolipin IgA Ab Anti-Cardiolipin IgM Ab Crossmatch Crossmatch IS Only 11/05/16 11/05/16 11/05/16 05:11 08:30 08:30 WBC 14.4 H RBC 4.15 Hgb 10.8 Hct 33.3 MCV 80.2 MCHC 32.3 RDW 20.5 H Plt Count 161 MPV 8.8 PTT (Actin FS) 23.2 L Sodium Potassium Chloride Carbon Dioxide Anion Gap BUN Creatinine POC Glucometer 67 Random Glucose Calcium Anti-Cardiolipin IgG Ab Anti-Cardiolipin IgA Ab Anti-Cardiolipin IgM Ab Crossmatch Crossmatch IS Only 11/05/16 08:30 WBC RBC Hgb Hct MCV MCHC RDW Plt Count MPV PTT (Actin FS) Sodium 145 Potassium 3.7 Chloride 105 Carbon Dioxide 32 D Anion Gap 8 BUN 8 D Creatinine 1.0 D POC Glucometer Random Glucose 64 L D Calcium 8.0 L Anti-Cardiolipin IgG Ab Anti-Cardiolipin IgA Ab Anti-Cardiolipin IgM Ab Crossmatch Crossmatch IS Only Problem List - Problems (1) Hypercoagulable state Code(s): D68.59 - OTHER PRIMARY THROMBOPHILIA (2) Occlusion of graft of lower extremity Code(s): T82.898A - OT COMPLICATION OF VASCULAR PROSTH DEV/GRFT, INIT Qualifiers: Encounter type: sequela Qualified Code(s): T82.898S - Other specified complication of vascular prosthetic devices, implants and grafts, sequela (3) Left leg claudication Code(s): I73.9 - PERIPHERAL VASCULAR DISEASE, UNSPECIFIED (4) Ileus Assessment/Plan Pain control Incentive Spirometry O2 as needed Lovenox Await return of bowel function PO when OK with surgery BD TX PRN Follow WBC (trending down) Dr Ayers CCTime 35"
--- NOTE | 2016-11-05 12:53 | PN ---
Progress Note, Physician Chief Complaint: PATIENT ASLEEP BGM RUNNING LOW PAST 12 HOURS ON IVF NOT EATING MUCH - Current Medication List Current Medications: Active Medications Acetaminophen (Tylenol -) 650 mg PO Q6H PRN PRN Reason: FEVER OR PAIN Albuterol/Ipratropium (Duoneb -) 1 amp NEB Q6H PRN PRN Reason: SHORTNESS OF BREATH Atorvastatin Calcium (Lipitor -) 20 mg PO HS [facility] Last Admin: 11/04/16 21:23 Dose: Not Given Budesonide/Formoterol Fumarate (Symbicort 80/4.5mcg -) 2 puff IH BID [facility] Last Admin: 11/05/16 09:12 Dose: 2 puff Cyclobenzaprine HCl (Flexeril -) 10 mg PO BID [facility] Last Admin: 11/05/16 09:04 Dose: Not Given Diltiazem HCl (Cardizem Cd -) 120 mg PO DAILY [facility] Last Admin: 11/05/16 09:03 Dose: Not Given Duloxetine HCl (Cymbalta -) 30 mg PO DAILY [facility] Last Admin: 11/05/16 09:03 Dose: Not Given Enalaprilat (Vasotec Injection -) 1.25 mg IVPB Q6H-IV [facility] Last Admin: 11/05/16 08:36 Dose: 1.25 mg Enoxaparin Sodium (Lovenox -) 40 mg SQ DAILY [facility] Last Admin: 11/04/16 11:32 Dose: 40 mg Fentanyl/Bupivacaine/Sodium Chlor (Bupivicaine 0.125%/Fentanyl 2mcg/Ml Pcea -) 50 ml EP ASDIR [facility] PRN Reason: Protocol Last Admin: 11/05/16 11:10 Dose: 50 ml Hydromorphone HCl (Dilaudid Injection -) 2 mg IVPB Q6H PRN PRN Reason: PAIN Hydroxyzine HCl (Atarax -) 25 mg PO TID PRN PRN Reason: FOR ITCHING Lactated Ringer's (Lactated Ringers Solution) 1,000 mls @ 100 mls/hr IV ASDIR [facility] Last Admin: 11/05/16 11:22 Dose: Not Given Insulin Aspart (Novolog Vial Sliding Scale -) 1 vial SQ ACHS [facility] PRN Reason: Protocol Last Admin: 11/05/16 11:01 Dose: Not Given Insulin Detemir (Levemir Vial) 25 units SQ [facility] Lorazepam (Ativan -) 0.5 mg PO TID PRN PRN Reason: ANXIETY Lorazepam (Ativan Injection -) 0.5 mg IVPUSH TID PRN PRN Reason: ANXIETY Last Admin: 11/04/16 21:38 Dose: 0.5 mg Losartan Potassium (Cozaar -) 50 mg PO DAILY [facility] Last Admin: 11/05/16 09:03 Dose: Not Given Meclizine HCl (Antivert -) 25 mg PO TID PRN PRN Reason: VERTIGO Oxycodone HCl (Roxicodone -) 10 mg PO Q6H PRN PRN Reason: PAIN Pregabalin (Lyrica -) 150 mg PO BID [facility] Last Admin: 11/05/16 09:04 Dose: Not Given Trazodone HCl (Desyrel -) 100 mg PO [facility] Last Admin: 11/04/16 21:22 Dose: Not Given - Objective Vital Signs: Vital Signs Temperature 98.8 F 11/05/16 12:00 Pulse Rate 84 11/05/16 12:00 Respiratory Rate 16 11/05/16 12:00 Blood Pressure 162/79 11/05/16 12:00 O2 Sat by Pulse Oximetry (%) 100 11/05/16 11:10 Constitutional: Yes: No Distress Eyes: Yes: WNL HENT: Yes: WNL Neck: Yes: WNL Cardiovascular: Yes: WNL Respiratory: Yes: WNL Gastrointestinal: Yes: WNL Genitourinary: Yes: WNL Musculoskeletal: Yes: Muscle Pain Extremities: Yes: Other Edema: Yes Peripheral Pulses WNL: Yes Integumentary: Yes: Other Wound/Incision: Yes: Dressing Dry and Intact, Unapproximated Neurological: Yes: Pre-Existing Deficit ...Motor Strength: LLE, RLE Labs: CBC, BMP 11/05/16 08:30 11/05/16 08:30 INR, PTT INR 1.02 (0.82-1.09) 11/03/16 22:55 Problem List - Problems (1) Occlusion of graft of lower extremity Code(s): T82.898A - OTH COMPLICATION OF VASCULAR PROSTH DEV/GRFT, INIT Qualifiers: Encounter type: sequela Qualified Code(s): T82.898S - Other specified complication of vascular prosthetic devices, implants and grafts, sequela (2) Arterial occlusion Code(s): I74.9 - EMBOLISM AND THROMBOSIS OF UNSPECIFIED ARTERY (3) Chronic kidney disease (CKD) Code(s): N18.9 - CHRONIC KIDNEY DISEASE, UNSPECIFIED (4) Diabetes mellitus Code(s): E11.9 - TYPE 2 DIABETES MELLITUS WITHOUT COMPLICATIONS Assessment/Plan REDUCING INSULIN TO 25UNITS QHS OF [facility]IR PAIN CONTROL HOLD LOVENOX UNTIL SEEN BY DR CELESTE BEDSIDE PT SNF
[2016-11-05 14:08] LABS: BETA-2-GLYCOPROTEIN I IGA <9 (0-25)
--- NOTE | 2016-11-05 14:11 | PN ---
Progress Note (short form) - Note Progress Note: POD 2 Pain a little better NG out VSS Abd full, soft. Dressing dry Ext: Left foot warm. 3+ PT doppler. Labs WNL Stable s/p aortofemoral bypass Plan: OOB when epidural removed. Clears in AM D/C Muro when oob. Problem List - Problems (1) Occlusion of graft of lower extremity Code(s): T82.898A - OT COMPLICATION OF VASCULAR PROSTH DEV/GRFT, INIT Qualifiers: Encounter type: sequela Qualified Code(s): T82.898S - Other specified complication of vascular prosthetic devices, implants and grafts, sequela (2) Hypercoagulable state Code(s): D68.59 - OTHER PRIMARY THROMBOPHILIA
[2016-11-05] MEDS ORDERED: DEXTROSE 5%-0.45% SALINE 1,000 ML IV SCH (14:15)
--- NOTE | 2016-11-05 14:23 | PN ---
Progress Note (short form) - Note Progress Note: Post op day#2.Patient stable and c/o pain score of 2-3/10.Will DC [employer] ASSOCIATE and will put patient on Dilaudid prn.P 94,BP 161/93 and Spo2 100% on O2 3L NC.Epidural cathater taken out.Tip of the catha ter intact.No any anesthesia related problem.Patient Dc from the anesthesia care.
[2016-11-05] MEDS: HYDROmorphone HCL CARPU-JECT 2 MG/1 ML DISP.SYRIN IVPB PRN ×2 (14:59→20:32)
[2016-11-05] MEDS: ENOXAPARIN NA (PORCINE) 40 MG/0.4 ML DISP.SYRIN SQ SCH (17:16)
[2016-11-05] MEDS ORDERED: PT OWN MED DRAWER 7, Y5N ONE ×2 (20:46→21:14)
[2016-11-05] MEDS: hydrOXYzine HCL 25 MG TABLET (FP) PO PRN (21:16)
[2016-11-05] MEDS: ATORVASTATIN CA 20 MG TABLET (FP) PO SCH (21:42)
[2016-11-05] MEDS: traZODone HCL 50 MG TABLET (FP) PO SCH (21:44)
[2016-11-05] MEDS: LORazepam 0.5 MG TABLET PO PRN (21:52)
[2016-11-05] MEDS: INSULIN DETEMIR 100 UNITS/ML MDV SQ SCH (22:40)
[2016-11-06] MEDS: ENALAPRILAT DIHYDRATE 1.25 MG/1 ML VIAL IVPB SCH ×2 (02:21→08:53)
[2016-11-06 06:09] LABS: MCH 26.5 pg (25.7-33.7); MCHC 33.1 g/dl (32.0-36.0); MEAN CELL VOLUME 80.2 fl (80-96); MEAN PLT VOLUME 8.8 fl (7.5-11.1); PLATELET COUNT 151 K/MM3 (134-434); RDW 20.6 % (11.6-15.6); WHITE BLOOD COUNT 10.4 K/mm3 (4.0-10.0)
[2016-11-06] MEDS: INSULIN SLIDING SCALE (NOVOLOG) 1 VIAL SQ SCH ×4 (06:16→22:04)
[2016-11-06 06:33] LABS: ALBUMIN 2.1 g/dl (3.4-5.0); ANION GAP 8 (8-16); CALCIUM 7.8 mg/dL (8.5-10.1); CO2 32 mmol/L (21-32); GLUCOSE,RANDOM 131 mg/dL (74-106); MAGNESIUM 1.7 mg/dL (1.8-2.4)
[2016-11-06 06:37] LABS: ALK PHOS 115 U/L (45-117); BILIRUBIN,TOTAL 0.4 mg/dL (0.2-1.0); CREATININE 0.9 mg/dL (0.55-1.02); PHOSPHOROUS 3.5 mg/dL (2.5-4.9); SGOT/AST 14 U/L (15-37); SGPT/ALT 10 U/L (12-78); TOT PROT 5.4 g/dl (6.4-8.2)
--- NOTE | 2016-11-06 08:35 | PN ---
[id number], old blood, noted from inferior aspect of abdominal incision upon dressing change. Will monitor drainage, patient tolerated dressing change well. Original Note: Progress Note (short form) - Note Progress Note: Vascular surgery- Dr. Neil Patient seen and examined. Patient states her pain is improving and is controlled. She is OOB to chair. She had her Muro catheter removed this morning and has not urinated yet. She denies passing flatus yet. She denies fever/chills/nausea/vomiting. Last Vital Signs Temp Pulse Resp BP Pulse Ox 99.6 F 107 H 18 127/73 100 11/06/16 06:00 11/06/16 08:00 11/06/16 08:00 11/06/16 08:00 11/06/16 08:17 CBC, BMP 11/06/16 05:00 11/06/16 05:00 Exam: Gen: NAD, OOB to chair Abd: soft, dressing c/d/i Ext: bilat LE warm, 2+ pulses with dopplar <Laney Parada - Last Filed: 11/06/16 08:45> - Note Progress Note: Patient examined at ~5 PM. She offered no complaints. The left foot was cool and no doppler signal in PT. Evaluation with bedside Duplex did not show any arterial flow in the SFA or popliteal. Decision to return to OR for thrombectomy made. Surgical plans and potential risks discussed with patient and family. <Walter Neil - Last Filed: 11/06/16 19:43> Problem List - Problems (1) Arterial occlusion Assessment/Plan: POD#3 s/p aortofemoral bypass PCEA was removed, pain is controlled Muro removed, await urination Start clear liquid diet Monitor pulses OOB Code(s): I74.9 - EMBOLISM AND THROMBOSIS OF UNSPECIFIED ARTERY <Laney Parada - Last Filed: 11/06/16 08:45> - Problems (1) Occlusion of graft of lower extremity Code(s): T82.898A - OTH COMPLICATION OF VASCULAR PROSTH DEV/GRFT, INIT Qualifiers: Encounter type: sequela Qualified Code(s): T82.898S - Other specified complication of vascular prosthetic devices, implants and grafts, sequela (2) Hypercoagulable state Code(s): D68.59 - OTHER PRIMARY THROMBOPHILIA <Walter Neil - Last Filed: 11/06/16 19:43>
[2016-11-06] MEDS ORDERED: PT OWN MED DRAWER 7, Y5N ONE ×3 (08:58→21:06)
[2016-11-06] MEDS: HYDROmorphone HCL CARPU-JECT 2 MG/1 ML DISP.SYRIN IVPB PRN ×3 (09:28→20:48)
[2016-11-06] MEDS: ENOXAPARIN NA (PORCINE) 40 MG/0.4 ML DISP.SYRIN SQ SCH (09:30)
[2016-11-06] MEDS: PREGABALIN 75 MG CAPSULE PO SCH ×2 (09:31→22:03)
[2016-11-06] MEDS: CYCLOBENZAPRINE HCL 10 MG TABLET (FP) PO SCH ×2 (09:32→22:03)
[2016-11-06] MEDS: LOSARTAN POTASSIUM 50 MG TABLET (FP) PO SCH (09:32)
[2016-11-06] MEDS: DULoxetine HCL 30 MG CAPSULE.DR (FP) PO SCH (09:33)
[2016-11-06] MEDS: BUDESONIDE/FORMETEROL FUMARATE 80/4.5 mcg INHALER IH SCH ×2 (09:36→22:05)
[2016-11-06] MEDS: LORazepam 0.5 MG TABLET PO PRN (09:53)
--- NOTE | 2016-11-06 11:24 | EKG ---
Test Reason : Blood Pressure : / mmHG Vent. Rate : 089 BPM Atrial Rate : 089 BPM P-R Int : 132 ms QRS Dur : 084 ms QT Int : 364 ms P-R-T Axes : 051 032 072 degrees QTc Int : 442 ms POOR DATA QUALITY, INTERPRETATION MAY BE ADVERSELY AFFECTED NORMAL SINUS RHYTHM LOW VOLTAGE QRS BORDERLINE ECG WHEN COMPARED WITH ECG OF 17-AUG-2016 10:19, NO SIGNIFICANT CHANGE WAS FOUND Confirmed by RADHA GARCIA MD ([id number]) on 11/06/2016 11:24:11 AM Referred By: Confirmed By:RADHA GARCIA MD
[2016-11-06] MEDS ORDERED: MAGNESIUM SULF 50% (8.12 MEQ/2 ML-1 GM VIAL) IVPB ONE (12:30)
[2016-11-06] MEDS: hydrOXYzine HCL 25 MG TABLET (FP) PO PRN ×2 (12:42→21:07)
--- NOTE | 2016-11-06 13:34 | PN ---
Teaching Attending Note Name of Resident: Can Hollingsworth ATTENDING PHYSICIAN STATEMENT I saw and evaluated the patient. I reviewed the resident's note and discussed the case with the resident. I agree with the resident's findings and plan as documented. SUBJECTIVE: Pt seen and examined in the ICU. Epidural removed yesterday. Pain controlled on current regimen. No obvious bleeding. Pulses intact. OBJECTIVE: Last Vital Signs Temp Pulse Resp BP Pulse Ox 98.2 F 107 H 18 113/83 100 11/06/16 10:00 11/06/16 12:00 11/06/16 12:00 11/06/16 12:00 11/06/16 11:15 Intake & Output 11/03/16 11/04/16 11/05/16 11/06/16 23:59 23:59 23:59 23:59 Intake Total 5454 2387.5 2625 1950 Output Total 3200 2700 2400 900 Balance 2254 -312.5 225 1050 Weight 167 lb 165 lb 9 oz 163 lb 12.855 oz Gen: NAD in chair Heart: tachycardic, regular Lung: decreased breath sounds at the bases Abd: soft, nontender Ext: dressings intact, +DP CBC, BMP 11/06/16 05:00 11/06/16 05:00 Active Medications Acetaminophen (Tylenol -) 650 mg PO Q6H PRN PRN Reason: FEVER OR PAIN Albuterol/Ipratropium (Duoneb -) 1 amp NEB Q6H PRN PRN Reason: SHORTNESS OF BREATH Atorvastatin Calcium (Lipitor -) 20 mg PO [facility] Last Admin: 11/05/16 21:42 Dose: 20 mg Budesonide/Formoterol Fumarate (Symbicort 80/4.5mcg -) 2 puff IH BID [facility] Last Admin: 11/06/16 09:36 Dose: 2 puff Cyclobenzaprine HCl (Flexeril -) 10 mg PO BID [facility] Last Admin: 11/06/16 09:32 Dose: 10 mg Diltiazem HCl (Cardizem Cd -) 120 mg PO DAILY [facility] Last Admin: 11/06/16 09:33 Dose: 120 mg Duloxetine HCl (Cymbalta -) 30 mg PO DAILY [facility] Last Admin: 11/06/16 09:33 Dose: 30 mg Enoxaparin Sodium (Lovenox -) 40 mg SQ DAILY [facility] Last Admin: 11/06/16 09:30 Dose: 40 mg Hydromorphone HCl (Dilaudid Injection -) 3 mg IVPB Q3H PRN PRN Reason: PAIN LEVEL 6-10 Last Admin: 11/06/16 09:28 Dose: 3 mg Hydroxyzine HCl (Atarax -) 25 mg PO TID PRN PRN Reason: FOR ITCHING Last Admin: 11/06/16 12:42 Dose: 25 mg Insulin Aspart (Novolog Vial Sliding Scale -) 1 vial SQ [facility] PRN Reason: Protocol Last Admin: 11/06/16 11:39 Dose: 6 units Insulin Detemir (Levemir Vial) 25 units SQ [facility] Last Admin: 11/05/16 22:40 Dose: Not Given Lorazepam (Ativan -) 0.5 mg PO TID PRN PRN Reason: ANXIETY Last Admin: 11/06/16 09:53 Dose: 0.5 mg Lorazepam (Ativan Injection -) 0.5 mg IVPUSH TID PRN PRN Reason: ANXIETY Last Admin: 11/04/16 21:38 Dose: 0.5 mg Losartan Potassium (Cozaar -) 50 mg PO DAILY [facility] Last Admin: 11/06/16 09:32 Dose: 50 mg Meclizine HCl (Antivert -) 25 mg PO TID PRN PRN Reason: VERTIGO Oxycodone HCl (Roxicodone -) 10 mg PO Q6H PRN PRN Reason: PAIN Pregabalin (Lyrica -) 150 mg PO BID [facility] Last Admin: 11/06/16 09:31 Dose: 150 mg Trazodone HCl (Desyrel -) 100 mg PO [facility] Last Admin: 11/05/16 21:44 Dose: 100 mg ASSESSMENT AND PLAN: PAD Left Iliac Artery Occlusion s/p Aortofemoral Bypass with non-reversed saphenous vein CAD s/p stent h/o CVA HTN DM Hyperlipidemia - pain control - pulse checks - wound care - monitor H/H - advance diet per surgery - OOB to chair - glucose control - statin - can monitor on surgical floor
--- NOTE | 2016-11-06 16:22 | PN ---
Physical Exam: SUBJECTIVE: Patient seen and examined at bedside in the ICU. She reported feeling fine after surgery, pain under control, no fever overnight. Further denied chest pain , sob, nausea, chills, abd pain, headache, weakness, urinary and bowel sx. OBJECTIVE: Vital Signs Period Temp Pulse Resp BP Sys/Green Pulse Ox Last 24 Hr 98 F-99.6 F 77-107 15-84 104-147/65-89 100-100 GENERAL: Awake, alert, and fully oriented, in no acute distress. EYES: sclera anicteric, conjunctiva clear LUNGS: CTAB HEART: RRR ABDOMEN: Soft, not distended, tenderness around surgical site, dressing in place in lower abd and L thigh LOWER EXTREMITIES: warm, No calf tenderness, No peripheral edema, +2 dosarlis pedis CBCD WBC 10.4 K/mm3 (4.0-10.0) H 11/06/16 05:00 RBC 3.76 M/mm3 (3.60-5.2) 11/06/16 05:00 Hgb 10.0 GM/dL (10.7-15.3) L 11/06/16 05:00 Hct 30.1 % (32.4-45.2) L 11/06/16 05:00 MCV 80.2 fl (80-96) 11/06/16 05:00 MCHC 33.1 g/dl (32.0-36.0) 11/06/16 05:00 RDW 20.6 % (11.6-15.6) H 11/06/16 05:00 Plt Count 151 K/MM3 (134-434) 11/06/16 05:00 MPV 8.8 fl (7.5-11.1) 11/06/16 05:00 CMP Sodium 143 mmol/L (136-145) 11/06/16 05:00 Potassium 3.7 mmol/L (3.5-5.1) 11/06/16 05:00 Chloride 103 mmol/L (98-107) 11/06/16 05:00 Carbon Dioxide 32 mmol/L (21-32) 11/06/16 05:00 Anion Gap 8 (8-16) 11/06/16 05:00 BUN 7 mg/dL (7-18) 11/06/16 05:00 Creatinine 0.9 mg/dL (0.55-1.02) 11/06/16 05:00 Creat Clearance w eGFR > 60 (>60) 11/06/16 05:00 Calcium 7.8 mg/dL (8.5-10.1) L 11/06/16 05:00 Total Bilirubin 0.4 mg/dL (0.2-1.0) 11/06/16 05:00 AST 14 U/L (15-37) L D 11/06/16 05:00 ALT 10 U/L (12-78) L D 11/06/16 05:00 Alkaline Phosphatase 115 U/L (45-117) D 11/06/16 05:00 Total Protein 5.4 g/dl (6.4-8.2) L 11/06/16 05:00 Albumin 2.1 g/dl (3.4-5.0) L 11/06/16 05:00 Intake & Output 11/03/16 11/04/16 11/05/16 11/06/16 23:59 23:59 23:59 23:59 Intake Total 5454 2387.5 2625 2450 Output Total 3200 2700 2400 1000 Balance 2254 -312.5 225 1450 Weight 75.75 kg 75.098 kg 74.3 kg INR, PTT INR 1.02 (0.82-1.09) 11/03/16 22:55 Active Medications Generic Name Dose Route Start Last Admin Trade Name Freq PRN Reason Stop Dose Admin Acetaminophen 650 mg 11/03/16 22:16 Tylenol - PO Q6H PRN FEVER OR PAIN Albuterol/Ipratropium 1 amp 11/03/16 22:16 Duoneb - NEB Q6H PRN SHORTNESS OF BREATH Atorvastatin Calcium 20 mg 11/04/16 22:00 11/05/16 21:42 Lipitor - PO 20 mg HS MICK Administration Budesonide/Formoterol Fumarate 2 puff 11/04/16 10:00 11/06/16 09:36 Symbicort 80/4.5mcg - IH 2 puff BID MICK Administration Cyclobenzaprine HCl 10 mg 11/04/16 10:00 11/06/16 09:32 Flexeril - PO 10 mg BID MICK Administration Diltiazem HCl 120 mg 11/04/16 10:00 11/06/16 09:33 Cardizem Cd - PO 120 mg DAILY MICK Administration Duloxetine HCl 30 mg 11/04/16 10:00 11/06/16 09:33 Cymbalta - PO 30 mg DAILY MICK Administration Enoxaparin Sodium 40 mg 11/04/16 10:00 11/06/16 09:30 Lovenox - SQ 40 mg DAILY MICK Administration Hydromorphone HCl 3 mg 11/05/16 14:09 11/06/16 14:56 Dilaudid Injection - IVPB 3 mg Q3H PRN Administration PAIN LEVEL 6-10 Hydroxyzine HCl 25 mg 11/03/16 22:16 11/06/16 12:42 Atarax - PO 25 mg TID PRN Administration FOR ITCHING Insulin Aspart 1 vial 11/04/16 07:00 11/06/16 11:39 Novolog Vial Sliding Scale - SQ 6 units ACHS MICK Administration Protocol Insulin Detemir 25 units 11/05/16 22:00 11/05/16 22:40 Levemir Vial SQ Not Given HS MICK Lorazepam 0.5 mg 11/03/16 22:16 11/06/16 09:53 Ativan - PO 0.5 mg TID PRN Administration ANXIETY Lorazepam 0.5 mg 11/04/16 11:21 11/04/16 21:38 Ativan Injection - IVPUSH 0.5 mg TID PRN Administration ANXIETY Losartan Potassium 50 mg 11/04/16 10:00 11/06/16 09:32 Cozaar - PO 50 mg DAILY MICK Administration Meclizine HCl 25 mg 11/03/16 22:16 Antivert - PO TID PRN VERTIGO Oxycodone HCl 10 mg 11/03/16 22:16 Roxicodone - PO Q6H PRN PAIN Pregabalin 150 mg 11/04/16 10:00 11/06/16 09:31 Lyrica - PO 150 mg BID MICK Administration Trazodone HCl 100 mg 11/04/16 22:00 11/05/16 21:44 Desyrel - PO 100 mg HS MICK Administration ASSESSMENT/PLAN: 41 yo F h/o HTN, HLD, DM2, CVA and hypercoagulable state of unclear etiology with PAD and multiple stents placed in heart and LLE admitted to the hospital for re-occlusion of iliacfemoral graft (3rd time) and she's now s/p aortofemoral bypass. Vascular: PAD 2/2 Idiopathic hypercoagulable state - s/p aortafemoral bypass, POD #4 - Epidural and bhandari removed - Dilaudid PRN for pain - PT - OOB as tolerated Endo: DM2 and HLD - On levemir 25 Units SQ HS and sliding scale - Cont. statin - BGM FEN - No IVF - Low Mg, replete with MgSO4 - Clears for now Prophylaxis - DVT: lovenox - GI: Not indicated Disposition - Transfer to [facility]-surg Code status - Full code Visit type - Emergency Visit Emergency Visit: No - New Patient This patient is new to me today: Yes Date on this admission: 11/06/16 - Critical Care Critical Care patient: Yes Total Critical Care Time (in minutes): 35 Critical Care Statement: The care of this patient involved high complexity decision making to prevent further life threatening deterioration of the patient 's condition and/or to evalute & treat vital organ system(s) failure or risk of failure.
--- NOTE | 2016-11-06 16:36 | SURG ---
Surgery Payroll Processor Note Payroll Processor: Elvi George PA-C (t) Date of Service: 11/03/16 Diagnosis: Left iliac artery occlusion, failed iliofemoral bypass Procedure: Aortofemoral bypass with non-reversed saphenous vein I was present for the entirety of the operative procedure. For further detail, please refer to operative report. Visit type - Case Type Case Type: Scheduled Admission - Emergency Emergency Visit: No - New patient This patient is new to me today: Yes Date on this admission: 11/06/16 - Critical Care Critical Care patient: No
[2016-11-06] MEDS ORDERED: HEPARIN NA (PORCINE) 5,000 UNITS/ML 1ML VIAL ONE ×3 (17:21→19:14)
[2016-11-06] MEDS ORDERED: LIDOCAINE HCL 1%, 10 MG/ML (20ML VIAL) ONE (17:21)
[2016-11-06] MEDS ORDERED: PAPAVERINE HCL 30 MG/1 ML 10 ML VIAL NR ONE (17:22)
--- NOTE | 2016-11-06 17:25 | PN ---
Progress Note, Physician History of Present Illness: aortofem bypass went well However, unble to get pulse now -. pt going to OR, under local for hopefully thombectomy No CP, SOB - Current Medication List Current Medications: Active Medications Acetaminophen (Tylenol -) 650 mg PO Q6H PRN PRN Reason: FEVER OR PAIN Albuterol/Ipratropium (Duoneb -) 1 amp NEB Q6H PRN PRN Reason: SHORTNESS OF BREATH Atorvastatin Calcium (Lipitor -) 20 mg PO HS [facility] Last Admin: 11/05/16 21:42 Dose: 20 mg Budesonide/Formoterol Fumarate (Symbicort 80/4.5mcg -) 2 puff IH BID [facility] Last Admin: 11/06/16 09:36 Dose: 2 puff Cyclobenzaprine HCl (Flexeril -) 10 mg PO BID [facility] Last Admin: 11/06/16 09:32 Dose: 10 mg Diltiazem HCl (Cardizem Cd -) 120 mg PO DAILY [facility] Last Admin: 11/06/16 09:33 Dose: 120 mg Duloxetine HCl (Cymbalta -) 30 mg PO DAILY [facility] Last Admin: 11/06/16 09:33 Dose: 30 mg Enoxaparin Sodium (Lovenox -) 40 mg SQ DAILY [facility] Last Admin: 11/06/16 09:30 Dose: 40 mg Hydromorphone HCl (Dilaudid Injection -) 3 mg IVPB Q3H PRN PRN Reason: PAIN LEVEL 6-10 Last Admin: 11/06/16 14:56 Dose: 3 mg Hydroxyzine HCl (Atarax -) 25 mg PO TID PRN PRN Reason: FOR ITCHING Last Admin: 11/06/16 12:42 Dose: 25 mg Insulin Aspart (Novolog Vial Sliding Scale -) 1 vial SQ ACHS [facility] PRN Reason: Protocol Last Admin: 11/06/16 16:36 Dose: Not Given Insulin Detemir (Levemir Vial) 25 units SQ HS [facility] Last Admin: 11/05/16 22:40 Dose: Not Given Lorazepam (Ativan -) 0.5 mg PO TID PRN PRN Reason: ANXIETY Last Admin: 11/06/16 09:53 Dose: 0.5 mg Lorazepam (Ativan Injection -) 0.5 mg IVPUSH TID PRN PRN Reason: ANXIETY Last Admin: 11/04/16 21:38 Dose: 0.5 mg Losartan Potassium (Cozaar -) 50 mg PO DAILY [facility] Last Admin: 11/06/16 09:32 Dose: 50 mg Meclizine HCl (Antivert -) 25 mg PO TID PRN PRN Reason: VERTIGO Oxycodone HCl (Roxicodone -) 10 mg PO Q6H PRN PRN Reason: PAIN Pregabalin (Lyrica -) 150 mg PO BID [facility] Last Admin: 11/06/16 09:31 Dose: 150 mg Trazodone HCl (Desyrel -) 100 mg PO HS [facility] Last Admin: 11/05/16 21:44 Dose: 100 mg - Objective Vital Signs: Vital Signs Temperature 98.0 F 11/06/16 16:00 Pulse Rate 117 H 11/06/16 16:00 Respiratory Rate 20 11/06/16 16:00 Blood Pressure 130/81 11/06/16 16:00 O2 Sat by Pulse Oximetry (%) 100 11/06/16 11:15 Constitutional: Yes: No Distress Eyes: Yes: Conjunctiva Clear HENT: Yes: Atraumatic Neck: Yes: Supple Cardiovascular: Yes: Regular Rate and Rhythm Respiratory: Yes: CTA Bilaterally Gastrointestinal: Yes: Soft, Tenderness (mild) Edema: No Peripheral Pulses WNL: No (on the left) Neurological: Yes: Alert, Oriented Psychiatric: Yes: Alert, Oriented Labs: CBC, BMP 11/06/16 05:00 11/06/16 05:00 INR, PTT INR 1.02 (0.82-1.09) 11/03/16 22:55 Assessment/Plan 41 yo obese female former smoker, HTN, hyperlipidemia, DM (on insulin), CAD -> PCI of LCx w/ FLY in 11/2011, prior "small MO" in 2014, CVA 01/2015, PAD w/ multiple revascularization procedures in LLE including multiple stents, ileo- fem bypass and subsequent procedures to open graft. Nuclear stress from [place] on 12/31/14 showed small inferolateral infarct, no ischemia, and EF 63%. Patient hasn't seen a chemist in about 2 yrs. She used to see Dr. Hill. She was supposed to see chemist (Dr. Jordan?) in Dr Conley's office but has not done so yet. She has an upcoming appointment. Admitted from Dr. Neil's office with left leg pain and occluded graft. Underwent aorto-femoral bypass on 11/03/16. Did well post-op. No cardiac complications. Epidural d/evelyn today However, no palpable pulses on the left now -. going back to ER for possible thrombectomy RECS: Per Dr Neil Vasotec IV 1.25 mg IV q6 if NPO after OR -> losartan 50 mg po daily and cardizem CD 120 mg po daily. Ensure adequate pain control. Patient to resume aspirin and clopidogrel when OK per vascular surgery. Will continue to follow.
--- NOTE | 2016-11-06 17:51 | PN ---
Progress Note (short form) - Note Progress Note: PAtient seen and examined s/p thrombectomy of femoral bypass graft drowsy but following commands, alert, oriented Last Vital Signs Temp Pulse Resp BP Pulse Ox 98.0 F 117 H 20 130/81 100 11/06/16 16:00 11/06/16 16:00 11/06/16 16:00 11/06/16 16:00 11/06/16 11:15 HEENT: GOLDIE, EOM Intact Oropharynx: No thrush, No mucositis Cor: RSR, No murmurs, No gallops Lungs: Clear to P&A Abd: Soft, Normal bowel sounds, No organomegaly Abnormal Lab Results 11/03/16 11/06/16 11/06/16 08:00 05:00 05:00 WBC 10.4 H Hgb 10.0 L Hct 30.1 L RDW 20.6 H Random Glucose Calcium 7.8 L Magnesium 1.7 L AST 14 L D ALT 10 L D Total Protein 5.4 L Albumin 2.1 L Crossmatch See Detail Crossmatch IS Only See Detail Current Medications Acetaminophen (Tylenol -) 650 mg PO Q6H PRN PRN Reason: FEVER OR PAIN Albuterol/Ipratropium (Duoneb -) 1 amp NEB Q6H PRN PRN Reason: SHORTNESS OF BREATH Aspirin (Asa -) 81 mg PO DAILY [facility] Last Admin: 11/06/16 20:48 Dose: 81 mg Atorvastatin Calcium (Lipitor -) 20 mg PO HS [facility] Last Admin: 11/06/16 22:03 Dose: 20 mg Budesonide/Formoterol Fumarate (Symbicort 80/4.5mcg -) 2 puff IH BID [facility] Last Admin: 11/06/16 22:05 Dose: 2 puff Clopidogrel Bisulfate (Plavix -) 75 mg PO DAILY [facility] Last Admin: 11/06/16 20:48 Dose: 75 mg Cyclobenzaprine HCl (Flexeril -) 10 mg PO BID [facility] Last Admin: 11/06/16 22:03 Dose: 10 mg Diltiazem HCl (Cardizem Cd -) 120 mg PO DAILY [facility] Last Admin: 11/06/16 09:33 Dose: 120 mg Duloxetine HCl (Cymbalta -) 30 mg PO DAILY [facility] Last Admin: 11/06/16 09:33 Dose: 30 mg Heparin Sodium (Porcine) (Heparin -) 1,000 unit IVPUSH PRN PRN PRN Reason: Heparin Heparin Sodium (Porcine) (Heparin -) 5,000 unit IVPUSH PRN PRN PRN Reason: Heparin Hydromorphone HCl (Dilaudid Injection -) 3 mg IVPB Q3H PRN PRN Reason: PAIN LEVEL 6-10 Last Admin: 11/06/16 20:48 Dose: 3 mg Hydroxyzine HCl (Atarax -) 25 mg PO TID PRN PRN Reason: FOR ITCHING Last Admin: 11/06/16 21:07 Dose: 25 mg Heparin Sodium/Dextrose (Heparin Infusion -) 500 mls @ 20 mls/hr IVPB TITR MICK ; 1,000 UNITS/HR PRN Reason: Protocol Last Admin: 11/06/16 19:30 Dose: 20 mls/hr Sodium Chloride (Normal Saline -) 1,000 mls @ 75 mls/hr IV ASDIR [facility] Last Admin: 11/06/16 20:00 Dose: 75 mls/hr Insulin Aspart (Novolog Vial Sliding Scale -) 1 vial SQ ACHS [facility] PRN Reason: Protocol Last Admin: 11/06/16 22:04 Dose: 2 units Insulin Detemir (Levemir Vial) 25 units SQ [facility] Last Admin: 11/05/16 22:40 Dose: Not Given Lorazepam (Ativan -) 0.5 mg PO TID PRN PRN Reason: ANXIETY Last Admin: 11/06/16 09:53 Dose: 0.5 mg Lorazepam (Ativan Injection -) 0.5 mg IVPUSH TID PRN PRN Reason: ANXIETY Last Admin: 11/04/16 21:38 Dose: 0.5 mg Losartan Potassium (Cozaar -) 50 mg PO DAILY [facility] Last Admin: 11/06/16 09:32 Dose: 50 mg Meclizine HCl (Antivert -) 25 mg PO TID PRN PRN Reason: VERTIGO Oxycodone HCl (Roxicodone -) 10 mg PO Q6H PRN PRN Reason: PAIN Pregabalin (Lyrica -) 150 mg PO BID [facility] Last Admin: 11/06/16 22:03 Dose: 150 mg Trazodone HCl (Desyrel -) 100 mg PO [facility] Last Admin: 11/05/16 21:44 Dose: 100 mg A/P 41 y/o patient with reurrent thrombosis of bypass graft. s/p thrombectomy today thrombophilia w/u pending on heparin/asa monitor CBC/coags
[2016-11-06] MEDS ORDERED: PROPOFOL 20 ML ONE (17:56)
[2016-11-06] MEDS ORDERED: MIDAZOLAM HCL 2 MG/2 ML SINGLE DOSE VIAL ONE ×2 (17:56)
[2016-11-06] MEDS ORDERED: ceFAZolin SODIUM 1 GM VIAL IVPB ONE ×2 (18:12)
[2016-11-06] MEDS ORDERED: ceFAZolin SODIUM 1 GM VIAL ONE (18:13)
[2016-11-06] MEDS ORDERED: LIDOCAINE HCL 1%, 10 MG/ML (20ML VIAL) IJ ONE (18:14)
[2016-11-06] MEDS ORDERED: POVIDONE-IODINE OINTMENT 10% - 28.4 GM TUBE TP ONE (19:00)
[2016-11-06] MEDS ORDERED: POVIDONE-IODINE OINTMENT 10% - 28.4 GM TUBE ONE (19:21)
[2016-11-06] MEDS ORDERED: HEPARIN INFUSION - 500 ML IVPB ONE (19:29)
[2016-11-06] MEDS: HEPARIN INFUSION - 500 ML IVPB SCH (19:30)
--- NOTE | 2016-11-06 19:34 | OP ---
Operative Note - Note: Operative Date: 11/06/16 Pre-Operative Diagnosis: Thrombosed left femoral bypass graft Operation: Open femoral thrombectomy, angiogram Findings: Aortofemoral graft was thrombosed to the distal anastomosis. Following thrombectomy angiogram revealed no evidence of graft stenosis. Distal flow was intact to the PT artery at the ankle but flow was sluggish. Post-Operative Diagnosis: Same as Pre-op Surgeon: Walter Neil Wood Shingle Roofer: Vel Knight Anesthesiologist/SERVICE INSPECTOR: Leandro Dodd Anesthesia: Fractional Specimens Removed: Clot from bypass graft Estimated Blood Loss (mls): 50
[2016-11-06] MEDS ORDERED: HEPARIN NA (PORCINE) 5,000 UNITS/ML 1ML VIAL IVPUSH PRN (19:39)
--- NOTE | 2016-11-06 19:40 | SURG ---
Surgery Grading Machine Feeder Note Grading Machine Feeder: Vel Knight PA-C Date of Service: 11/06/16 Diagnosis: Thrombosed left femoral bypass graft Procedure: Open femoral thrombectomy, angiogram I was present for the entirety of the operative procedure. For further detail, please refer to operative report. Visit type - Case Type Case Type: ED Admission - New patient This patient is new to me today: Yes Date on this admission: 11/06/16
[2016-11-06] MEDS: SODIUM CHLORIDE 1,000 ML IV SCH (20:00)
[2016-11-06] MEDS: ASPIRIN 81 MG CHEWABLE TABLETS PO SCH (20:48)
[2016-11-06] MEDS: CLOPIDOGREL BISULFATE 75 MG TABLET (FP) PO SCH (20:48)
[2016-11-06] MEDS: ATORVASTATIN CA 20 MG TABLET (FP) PO SCH (22:03)
[2016-11-06 23:23] LABS: EOSINOPHIL 6.6 % (0-4.5); MCH 26.2 pg (25.7-33.7); MCHC 32.1 g/dl (32.0-36.0); MEAN CELL VOLUME 81.8 fl (80-96); PLATELET COUNT 207 K/MM3 (134-434); RDW 20.7 % (11.6-15.6); WHITE BLOOD COUNT 12.5 K/mm3 (4.0-10.0)
[2016-11-06] MEDS: traZODone HCL 50 MG TABLET (FP) PO SCH (23:25)
[2016-11-06] MEDS: INSULIN DETEMIR 100 UNITS/ML MDV SQ SCH (23:25)
--- NOTE | 2016-11-06 23:43 | PN ---
Progress Note, Physician Chief Complaint: in or - Current Medication List Current Medications: Active Medications Acetaminophen (Tylenol -) 650 mg PO Q6H PRN PRN Reason: FEVER OR PAIN Albuterol/Ipratropium (Duoneb -) 1 amp NEB Q6H PRN PRN Reason: SHORTNESS OF BREATH Aspirin (Asa -) 81 mg PO DAILY [facility] Last Admin: 11/06/16 20:48 Dose: 81 mg Atorvastatin Calcium (Lipitor -) 20 mg PO HS [facility] Last Admin: 11/06/16 22:03 Dose: 20 mg Budesonide/Formoterol Fumarate (Symbicort 80/4.5mcg -) 2 puff IH BID [facility] Last Admin: 11/06/16 22:05 Dose: 2 puff Clopidogrel Bisulfate (Plavix -) 75 mg PO DAILY [facility] Last Admin: 11/06/16 20:48 Dose: 75 mg Cyclobenzaprine HCl (Flexeril -) 10 mg PO BID [facility] Last Admin: 11/06/16 22:03 Dose: 10 mg Diltiazem HCl (Cardizem Cd -) 120 mg PO DAILY [facility] Last Admin: 11/06/16 09:33 Dose: 120 mg Duloxetine HCl (Cymbalta -) 30 mg PO DAILY [facility] Last Admin: 11/06/16 09:33 Dose: 30 mg Heparin Sodium (Porcine) (Heparin -) 1,000 unit IVPUSH PRN PRN PRN Reason: Heparin Heparin Sodium (Porcine) (Heparin -) 5,000 unit IVPUSH PRN PRN PRN Reason: Heparin Hydromorphone HCl (Dilaudid Injection -) 3 mg IVPB Q3H PRN PRN Reason: PAIN LEVEL 6-10 Last Admin: 11/06/16 20:48 Dose: 3 mg Hydroxyzine HCl (Atarax -) 25 mg PO TID PRN PRN Reason: FOR ITCHING Last Admin: 11/06/16 21:07 Dose: 25 mg Heparin Sodium/Dextrose (Heparin Infusion -) 500 mls @ 20 mls/hr IVPB TITR MICK ; 1,000 UNITS/HR PRN Reason: Protocol Last Admin: 11/06/16 19:30 Dose: 20 mls/hr Sodium Chloride (Normal Saline -) 1,000 mls @ 75 mls/hr IV ASDIR [facility] Last Admin: 11/06/16 20:00 Dose: 75 mls/hr Insulin Aspart (Novolog Vial Sliding Scale -) 1 vial SQ ACHS [facility] PRN Reason: Protocol Last Admin: 11/06/16 22:04 Dose: 2 units Insulin Detemir (Levemir Vial) 25 units SQ HS [facility] Last Admin: 11/06/16 23:25 Dose: 13 units Lorazepam (Ativan -) 0.5 mg PO TID PRN PRN Reason: ANXIETY Last Admin: 11/06/16 09:53 Dose: 0.5 mg Lorazepam (Ativan Injection -) 0.5 mg IVPUSH TID PRN PRN Reason: ANXIETY Last Admin: 11/04/16 21:38 Dose: 0.5 mg Losartan Potassium (Cozaar -) 50 mg PO DAILY [facility] Last Admin: 11/06/16 09:32 Dose: 50 mg Meclizine HCl (Antivert -) 25 mg PO TID PRN PRN Reason: VERTIGO Oxycodone HCl (Roxicodone -) 10 mg PO Q6H PRN PRN Reason: PAIN Pregabalin (Lyrica -) 150 mg PO BID [facility] Last Admin: 11/06/16 22:03 Dose: 150 mg Trazodone HCl (Desyrel -) 100 mg PO HS [facility] Last Admin: 11/06/16 23:25 Dose: 100 mg - Objective Vital Signs: Vital Signs Temperature 98.0 F 11/06/16 16:00 Pulse Rate 117 H 11/06/16 16:00 Respiratory Rate 20 11/06/16 16:00 Blood Pressure 130/81 11/06/16 16:00 O2 Sat by Pulse Oximetry (%) 100 11/06/16 11:15 Cardiovascular: Yes: WNL Respiratory: Yes: WNL Gastrointestinal: Yes: WNL Labs: CBC, BMP 11/06/16 23:25 11/06/16 05:00 INR, PTT INR 1.02 (0.82-1.09) 11/03/16 22:55 Problem List - Problems (1) Occlusion of graft of lower extremity Code(s): T82.898A - OTH COMPLICATION OF VASCULAR PROSTH DEV/GRFT, INIT Qualifiers: Encounter type: sequela Qualified Code(s): T82.898S - Other specified complication of vascular prosthetic devices, implants and grafts, sequela (2) CAD (coronary artery disease) Code(s): I25.10 - ATHSCL HEART DISEASE OF [place] CORONARY ARTERY W/O ANG PCTRS Qualifiers: Coronary Disease-Associated Artery/Lesion type: coronary artery bypass graft Associated angina: without angina pectoris (3) Chronic kidney disease (CKD) Code(s): N18.9 - CHRONIC KIDNEY DISEASE, UNSPECIFIED (4) Diabetes mellitus Code(s): E11.9 - TYPE 2 DIABETES MELLITUS WITHOUT COMPLICATIONS (5) Hypertension Code(s): I10 - ESSENTIAL (PRIMARY) HYPERTENSION Qualifiers: Hypertension type: essential hypertension Qualified Code(s): I10 - Essential (primary) hypertension Assessment/Plan (1) Occlusion of graft of lower extremity Code(s): T82.898A - OT COMPLICATION OF VASCULAR PROSTH DEV/GRFT, INIT Qualifiers: Encounter type: sequela Qualified Code(s): T82.898S - Other specified complication of vascular prosthetic devices, implants and grafts, sequela APPRECIATE SURG NOTE -> Date of Service: 11/06/16 Diagnosis: Thrombosed left femoral bypass graft Procedure: Open femoral thrombectomy, angiogram (2) Arterial occlusion Code(s): I74.9 - EMBOLISM AND THROMBOSIS OF UNSPECIFIED ARTERY ASA IV HEPARIN (3) Chronic kidney disease (CKD) Code(s): N18.9 - CHRONIC KIDNEY DISEASE, UNSPECIFIED Cr WNL (4) Diabetes mellitus Code(s): E11.9 - TYPE 2 DIABETES MELLITUS WITHOUT COMPLICATIONS BGM ISS PLANNED DC TO [facility] -> [facility]
[2016-11-06 23:58] LABS: ALBUMIN 2.3 g/dl (3.4-5.0); BILIRUBIN,TOTAL 0.4 mg/dL (0.2-1.0); CALCIUM 8.1 mg/dL (8.5-10.1); CREATININE 1.6 mg/dL (0.55-1.02); MAGNESIUM 2.7 mg/dL (1.8-2.4); PHOSPHOROUS 5.6 mg/dL (2.5-4.9); TOT PROT 6.3 g/dl (6.4-8.2)
[2016-11-07] MEDS ORDERED: SODIUM CHLORIDE 250 ML IV STA (01:49)
[2016-11-07 02:05] LABS: ANISOCYTOSIS 2+; PLATELET ESTIMATE ADEQUATE (NORMAL); POLYCHROMASIA 1+
[2016-11-07] MEDS: HYDROmorphone HCL CARPU-JECT 2 MG/1 ML DISP.SYRIN IVPB PRN ×4 (02:22→18:23)
[2016-11-07] MEDS: INSULIN SLIDING SCALE (NOVOLOG) 1 VIAL SQ SCH ×4 (06:24→22:54)
[2016-11-07 06:34] LABS: BASOPHIL 0.6 % (0-2.0); MCH 26.4 pg (25.7-33.7); MCHC 32.2 g/dl (32.0-36.0); MEAN CELL VOLUME 81.9 fl (80-96); MEAN PLT VOLUME 9.1 fl (7.5-11.1); NEUTROPHILS 80.6 % (42.8-82.8); PLATELET COUNT 184 K/MM3 (134-434); RDW 20.3 % (11.6-15.6); WHITE BLOOD COUNT 15.7 K/mm3 (4.0-10.0)
[2016-11-07 07:25] LABS: ALBUMIN 2.3 g/dl (3.4-5.0); BILIRUBIN,TOTAL 0.4 mg/dL (0.2-1.0); CALCIUM 7.6 mg/dL (8.5-10.1); CREATININE 1.9 mg/dL (0.55-1.02); PHOSPHOROUS 5.6 mg/dL (2.5-4.9); TOT PROT 6.1 g/dl (6.4-8.2)
[2016-11-07 07:32] LABS: MAGNESIUM 2.4 mg/dL (1.8-2.4)
[2016-11-07] MEDS ORDERED: HYDROmorphone HCL CARPU-JECT 2 MG/1 ML DISP.SYRIN IVPB PRN (08:27)
[2016-11-07] MEDS ORDERED: ALBUTEROL SO4 2.5/IPRATROPIUM 0.5 INH SOL 3 ML VIAL.NEB. NEB PRN (08:27)
[2016-11-07] MEDS ORDERED: ACETAMINOPHEN 325 MG TABLET (FP) PO PRN (08:27)
[2016-11-07] MEDS ORDERED: LORAZEPAM CARPU-JECT 2 MG/ML DISP.SYRIN IVPUSH PRN (08:27)
[2016-11-07] MEDS ORDERED: oxyCODONE HCL 5 MG TABLET PO PRN (08:27)
[2016-11-07] MEDS ORDERED: LORazepam 0.5 MG TABLET PO PRN (08:27)
[2016-11-07] MEDS ORDERED: MECLIZINE HCL 25 MG TABLET (FP) PO PRN (08:27)
[2016-11-07] MEDS ORDERED: hydrOXYzine HCL 25 MG TABLET (FP) PO PRN (08:27)
--- NOTE | 2016-11-07 08:45 | OP ---
DATE OF OPERATION: 11/06/2016 SURGEON: Walter Celeste MD LIBRARY CLERICAL ASSISTANT: DEISI Buenrostro PROCEDURE: Emergency thrombectomy, left femoral artery bypass graft, with angiography. PREOPERATIVE DIAGNOSIS: Postoperative thrombosis of femoral bypass graft. POSTOPERATIVE DIAGNOSIS: Postoperative thrombosis of femoral bypass graft. ANESTHESIA: Fractional. ANESTHESIOLOGIST: Leandro Dodd MD OPERATIVE FINDINGS: The aortofemoral bypass graft was thrombosed down to the femoral artery anastomosis. Following balloon thrombectomy, angiography did not reveal any evidence of technical defect or stenosis within the bypass graft of the proximal anastomosis. There was free flow through the distal anastomosis into the superficial femoral artery with proximal and distal flow seen down to the level of the posterior tibial artery. OPERATIVE PROCEDURE: Following routine patient identification with side and site verification, intravenous sedation was established. The left leg and groin were prepped with Betadine solution. Time-out was performed. Xylocaine 1% was infiltrated in the skin at the upper end of the surgical incision in the thigh. [place] were removed, and the wound was opened. Subcutaneous sutures were divided. The self-retaining retractor was placed, and the bypass graft visualized. It was encircled with the vessel loop. The superficial femoral artery was also encircled proximal and distal to the anastomosis. There was no pulse on the graft. The patient was given a bolus of heparin 5000 units, which was followed at the end of the procedure with an additional 2000 units. A transverse incision was made in the distal end of the bypass graft. A No. 3 Josafat catheter was passed distally into the superficial femoral artery and withdrawn with removal of clot and return of arterial back-bleeding. The catheter was passed until no further thrombus was removed. An olive-tipped catheter needle was placed into the bypass graft, and angiography performed revealing a patent superficial femoral and popliteal artery down to the posterior tibial artery. The artery was filled with heparin solution, and the needle was removed, and the arteries occluded with vessel loops. Thrombectomy of the proximal bypass graft was then performed until arterial flow was restored. Retrograde angiogram through the graft revealed no evidence of stenosis, twisting, or kinking of the bypass graft. The hip was flexed and angiography repeated again with no evidence of kinking. The arteriotomy was then closed with interrupted and running sutures of 6-0 Prolene, and the graft was opened. There was no Doppler available to check distal pulses. A duplex image revealed flow within the posterior tibial artery, but to better characterize the flow, the graft was cannulated with a butterfly needle and angiography repeated, again revealing no evidence of stenosis or technical defect, and flow seen down to the level of the distal posterior tibial. Flow was noted to be quite sluggish, but was pulsatile. The needle was removed, and bleeding was controlled with Surgicel. When hemostasis was achieved, the wound was irrigated and closed with interrupted suture of 3-0 Vicryl and skin manuel. The patient was then transported to the ICU in stable condition. WALTER CELESTE M.D. [id number]
--- NOTE | 2016-11-07 08:55 | PN ---
Progress Note (short form) - Note Progress Note: Pt arousable but given dilaudid at earlier today at 7am. No flatus/bowel function. She has voided on bedpan overnight. Vital Signs Period Temp Pulse Resp BP Sys/Green Pulse Ox Last 24 Hr 98.0 F-99.4 F 96-117 8-20 85-130/53-92 100-100 PE: GEN: alert and arousable CV: mild tachy ABD: soft, non-distended, non-tender. Dressing c/d/i Left: PT pulse with doppler, foot warm. Upper thigh with c/d/i dressing/manuel. Right: DP pulse with doppler. CBC, BMP 11/07/16 05:00 11/07/16 05:00 Laboratory Tests 11/07/16 05:00 PTT (Actin FS) 53.0 H D A/P: 41 yo female s/p aorto-left femoral bypass 11/03 with diminished pulse yesterday and open thrombectomy of bypass vein graft/angio 11/06 PT pulse remains intact, the pt is on IV heparin with PTT value of 53 Plan is to continue IV heparin/strict bed rest Monitor UOP, using bed gil Continue IV fluids Bun/Cret with slight increase Clears to fulls if no vomiting. Awaiting bowel function.
--- NOTE | 2016-11-07 08:59 | PN ---
Progress Note (short form) - Note Progress Note: Post op day #1.S/P Open thrombectomy with angiogram left lower extremity under MAC uneventful.P 101,BP 107/95 and Spo2 97% on O2 $L NC.Patient stable.NO any anesthesia related problem.Patient DC from the anesthesia care.
[2016-11-07] MEDS: ASPIRIN 81 MG CHEWABLE TABLETS PO SCH (10:24)
[2016-11-07] MEDS: CYCLOBENZAPRINE HCL 10 MG TABLET (FP) PO SCH ×2 (10:24→22:54)
[2016-11-07] MEDS: LOSARTAN POTASSIUM 50 MG TABLET (FP) PO SCH (10:24)
[2016-11-07] MEDS: DULoxetine HCL 30 MG CAPSULE.DR (FP) PO SCH (10:24)
[2016-11-07] MEDS: PREGABALIN 75 MG CAPSULE PO SCH ×2 (10:24→22:54)
[2016-11-07] MEDS: CLOPIDOGREL BISULFATE 75 MG TABLET (FP) PO SCH (10:25)
[2016-11-07] MEDS: BUDESONIDE/FORMETEROL FUMARATE 80/4.5 mcg INHALER IH SCH ×2 (10:25→22:55)
--- NOTE | 2016-11-07 12:00 | PN ---
Teaching Attending Note Name of Resident: Can Hollingsworth ATTENDING PHYSICIAN STATEMENT I saw and evaluated the patient. I reviewed the resident's note and discussed the case with the resident. I agree with the resident's findings and plan as documented. SUBJECTIVE: Pt seen and examined in the ICU. Taken back to OR for open femoral thrombectomy , angiogram revealing slugging flow to PT artery. c/o some pain at surgical site but not distal. Somnolent but arousable after receiving dilaudid dose. OBJECTIVE: Last Vital Signs Temp Pulse Resp BP Pulse Ox 98.1 F 101 H 14 91/66 93 L 11/07/16 10:00 11/07/16 10:10 11/07/16 10:00 11/07/16 10:00 11/07/16 10:10 Intake & Output 11/04/16 11/05/16 11/06/16 11/07/16 23:59 23:59 23:59 23:59 Intake Total 2387.5 2625 2800 1427 Output Total 2700 2400 1050 500 Balance -312.5 225 1750 927 Weight 167 lb 165 lb 9 oz 163 lb 12.855 oz 168 lb 8 oz Gen: somnolent but arousable Heart: RRR Lung: decreased breath sounds at the bases Abd: soft, nontender Ext: dressings clean, no edema, dopplerable pulses CBC, BMP 11/07/16 05:00 11/07/16 05:00 Active Medications Acetaminophen (Tylenol -) 650 mg PO Q6H PRN PRN Reason: FEVER OR PAIN Albuterol/Ipratropium (Duoneb -) 1 amp NEB Q6H PRN PRN Reason: SHORTNESS OF BREATH Aspirin (Asa -) 81 mg PO DAILY [facility] Last Admin: 11/07/16 10:24 Dose: 81 mg Atorvastatin Calcium (Lipitor -) 20 mg PO [facility] Budesonide/Formoterol Fumarate (Symbicort 80/4.5mcg -) 2 puff IH BID [facility] Last Admin: 11/07/16 10:25 Dose: 2 puff Clopidogrel Bisulfate (Plavix -) 75 mg PO DAILY [facility] Last Admin: 11/07/16 10:25 Dose: 75 mg Cyclobenzaprine HCl (Flexeril -) 10 mg PO BID [facility] Last Admin: 11/07/16 10:24 Dose: 10 mg Diltiazem HCl (Cardizem Cd -) 120 mg PO DAILY [facility] Last Admin: 11/07/16 10:24 Dose: 120 mg Duloxetine HCl (Cymbalta -) 30 mg PO DAILY [facility] Last Admin: 11/07/16 10:24 Dose: 30 mg Heparin Sodium (Porcine) (Heparin -) 1,000 unit IVPUSH PRN PRN PRN Reason: Heparin Heparin Sodium (Porcine) (Heparin -) 5,000 unit IVPUSH PRN PRN PRN Reason: Heparin Last Admin: 11/07/16 01:47 Dose: 5,000 unit Hydromorphone HCl (Dilaudid Injection -) 2 mg IVPB Q3H PRN PRN Reason: PAIN LEVEL 6-10 Hydroxyzine HCl (Atarax -) 25 mg PO TID PRN PRN Reason: FOR ITCHING Heparin Sodium/Dextrose (Heparin Infusion -) 500 mls @ 20 mls/hr IVPB TITR MICK ; 1,000 UNITS/HR PRN Reason: Protocol Last Titration: 11/07/16 08:00 Dose: 1,150 units/hr Sodium Chloride (Normal Saline -) 1,000 mls @ 75 mls/hr IV ASDIR [facility] Last Admin: 11/06/16 20:00 Dose: 75 mls/hr Insulin Aspart (Novolog Vial Sliding Scale -) 1 vial SQ ACHS [facility] PRN Reason: Protocol Last Admin: 11/07/16 11:32 Dose: Not Given Insulin Detemir (Levemir Vial) 25 units SQ HS [facility]ICK Lorazepam (Ativan -) 0.5 mg PO TID PRN PRN Reason: ANXIETY Lorazepam (Ativan Injection -) 0.5 mg IVPUSH TID PRN PRN Reason: ANXIETY Losartan Potassium (Cozaar -) 50 mg PO DAILY [facility] Last Admin: 11/07/16 10:24 Dose: 50 mg Meclizine HCl (Antivert -) 25 mg PO TID PRN PRN Reason: VERTIGO Oxycodone HCl (Roxicodone -) 10 mg PO Q6H PRN PRN Reason: PAIN Pregabalin (Lyrica -) 150 mg PO BID [facility] Last Admin: 11/07/16 10:24 Dose: 150 mg Trazodone HCl (Desyrel -) 100 mg PO HS [facility] ASSESSMENT AND PLAN: PAD Left Iliac Artery Occlusion s/p Aortofemoral Bypass with non-reversed saphenous vein s/p Left Femoral Open thrombectomy 11/06 CAD s/p stent h/o CVA HTN DM Hyperlipidemia Acute Kidney Injury - IVF - monitor urine output, creatinine - continue anticoagulation - pain control - pulse checks - wound care - monitor H/H - advance diet per surgery - OOB to chair - glucose control - statin - continue ICU monitoring
--- NOTE | 2016-11-07 12:11 | CONSULT ---
Consult - text type - Consultation Consultation Note: cardiology. no chest pain. no dyspnea. no pain in left foot. meds reviewed. awake alert. lying flat. vs stable heart rate 100/minute.no murmur or gallop. clear lung andersen. no edema. ecg monitor sinus. labs reviewed. impresion cardiovascular/hemodynamic status stable. day#1 s/p second revascularization procedure. rec: treatment as directed by vascular. will follow prn please reconsult if necessary.
--- NOTE | 2016-11-07 12:36 | PN ---
Physical Exam: SUBJECTIVE: Patient seen and examined at bedside in the ICU. She reported feeling fine after the 2nd surgery, pain in low left leg, no fever overnight. Further denied chest pain, sob, nausea, chills, abd pain, headache, weakness, urinary and bowel sx. OBJECTIVE: Vital Signs Period Temp Pulse Resp BP Sys/Green Pulse Ox Last 24 Hr 98.0 F-99.4 F 96-117 8-20 85-130/53-92 93-100 GENERAL: Awake, alert, and fully oriented as of 12pm (was lethargic in AM after dilaudid), in no acute distress. EYES: sclera anicteric, conjunctiva clear LUNGS: CTAB HEART: Tachycardic, S1 and S2, no murmur ABDOMEN: Soft, not distended, tenderness around surgical site, dressing in place in lower abd and L thigh LOWER EXTREMITIES: warm, No calf tenderness, No peripheral edema, unpalpable peripheral pulses. audible pulses: PT only in L, PT and DP in R on doppler only CBCD WBC 15.7 K/mm3 (4.0-10.0) H 11/07/16 05:00 RBC 3.81 M/mm3 (3.60-5.2) 11/07/16 05:00 Hgb 10.0 GM/dL (10.7-15.3) L 11/07/16 05:00 Hct 31.2 % (32.4-45.2) L 11/07/16 05:00 MCV 81.9 fl (80-96) 11/07/16 05:00 MCHC 32.2 g/dl (32.0-36.0) 11/07/16 05:00 RDW 20.3 % (11.6-15.6) H 11/07/16 05:00 Plt Count 184 K/MM3 (134-434) 11/07/16 05:00 MPV 9.1 fl (7.5-11.1) 11/07/16 05:00 CMP Sodium 139 mmol/L (136-145) 11/07/16 05:00 Potassium 4.2 mmol/L (3.5-5.1) 11/07/16 05:00 Chloride 101 mmol/L (98-107) 11/07/16 05:00 Carbon Dioxide 28 mmol/L (21-32) 11/07/16 05:00 Anion Gap 10 (8-16) 11/07/16 05:00 BUN 14 mg/dL (7-18) D 11/07/16 05:00 Creatinine 1.9 mg/dL (0.55-1.02) H 11/07/16 05:00 Creat Clearance w eGFR 28.85 (>60) 11/07/16 05:00 Calcium 7.6 mg/dL (8.5-10.1) L 11/07/16 05:00 Total Bilirubin 0.4 mg/dL (0.2-1.0) 11/07/16 05:00 AST 30 U/L (15-37) 11/07/16 05:00 ALT 14 U/L (12-78) 11/07/16 05:00 Alkaline Phosphatase 142 U/L (45-117) H 11/07/16 05:00 Total Protein 6.1 g/dl (6.4-8.2) L 11/07/16 05:00 Albumin 2.3 g/dl (3.4-5.0) L 11/07/16 05:00 Intake & Output 11/04/16 11/05/16 11/06/16 11/07/16 23:59 23:59 23:59 23:59 Intake Total 2387.5 2625 2800 1427 Output Total 2700 2400 1050 500 Balance -312.5 225 1750 927 Weight 75.75 kg 75.098 kg 74.3 kg 76.43 kg Active Medications Generic Name Dose Route Start Last Admin Trade Name Freq PRN Reason Stop Dose Admin Acetaminophen 650 mg 11/07/16 08:27 Tylenol - PO Q6H PRN FEVER OR PAIN Albuterol/Ipratropium 1 amp 11/07/16 08:27 Duoneb - NEB Q6H PRN SHORTNESS OF BREATH Aspirin 81 mg 11/06/16 19:45 11/07/16 10:24 Asa - PO 81 mg DAILY MICK Administration Atorvastatin Calcium 20 mg 11/07/16 22:00 Lipitor - PO HS [facility] Budesonide/Formoterol Fumarate 2 puff 11/07/16 10:00 11/07/16 10:25 Symbicort 80/4.5mcg - IH 2 puff BID MICK Administration Clopidogrel Bisulfate 75 mg 11/06/16 19:45 11/07/16 10:25 Plavix - PO 75 mg DAILY MICK Administration Cyclobenzaprine HCl 10 mg 11/07/16 10:00 11/07/16 10:24 Flexeril - PO 10 mg BID MICK Administration Diltiazem HCl 120 mg 11/07/16 10:00 11/07/16 10:24 Cardizem Cd - PO 120 mg DAILY MICK Administration Duloxetine HCl 30 mg 11/07/16 10:00 11/07/16 10:24 Cymbalta - PO 30 mg DAILY [facility]ICK Administration Heparin Sodium (Porcine) 1,000 unit 11/06/16 19:39 Heparin - IVPUSH PRN PRN Heparin Heparin Sodium (Porcine) 5,000 unit 11/06/16 19:39 11/07/16 01:47 Heparin - IVPUSH 5,000 unit PRN PRN Administration Heparin Hydromorphone HCl 2 mg 11/07/16 08:48 Dilaudid Injection - IVPB Q3H PRN PAIN LEVEL 6-10 Hydroxyzine HCl 25 mg 11/07/16 08:27 Atarax - PO TID PRN FOR ITCHING Heparin Sodium/Dextrose 500 mls @ 20 mls/hr 11/06/16 19:45 11/07/16 08:00 Heparin Infusion - IVPB 1,150 units/hr TITR MICK Titration Protocol 1,000 UNITS/HR Sodium Chloride 1,000 mls @ 75 mls/hr 11/06/16 20:45 11/06/16 20:00 Normal Saline - IV 75 mls/hr ASDIR MICK Administration Insulin Aspart 1 vial 11/07/16 11:00 11/07/16 11:32 Novolog Vial Sliding Scale - SQ Not Given ACHS [facility] Protocol Insulin Detemir 25 units 11/07/16 22:00 Levemir Vial SQ HS MICK Lorazepam 0.5 mg 11/07/16 08:27 Ativan - PO TID PRN ANXIETY Lorazepam 0.5 mg 11/07/16 08:27 Ativan Injection - IVPUSH TID PRN ANXIETY Losartan Potassium 50 mg 11/07/16 10:00 11/07/16 10:24 Cozaar - PO 50 mg DAILY [facility]ICK Administration Meclizine HCl 25 mg 11/07/16 08:27 Antivert - PO TID PRN VERTIGO Oxycodone HCl 10 mg 11/07/16 08:27 Roxicodone - PO Q6H PRN PAIN Pregabalin 150 mg 11/07/16 10:00 11/07/16 10:24 Lyrica - PO 150 mg BID MICK Administration Trazodone HCl 100 mg 11/07/16 22:00 Desyrel - PO HS [facility]ICK ASSESSMENT/PLAN: 41 yo F h/o HTN, HLD, DM2, CVA and hypercoagulable state of unclear etiology with PAD and multiple stents placed in heart and LLE admitted to the hospital for re-occlusion of iliacfemoral graft (3rd time) and she's now s/p aortofemoral bypass. Vascular: PAD 2/2 Idiopathic hypercoagulable state - s/p aortafemoral bypass and open thrombectomy with angiogram yesterday - On heparin gtt, plavix and asa - Dilaudid PRN for pain - PT - Pulse check - OOB as tolerated ID: Elevated WBC - Post-op with no fever - Cont. to monitor CBC Renal: REBA 2/2 contrast - Worsening Cr - Cont. hydration Endo: DM2 and HLD - On levemir 25 Units SQ HS and sliding scale - Cont. statin - BGM FEN - NS 75ml/hr - Normal lytes - Clears for now Prophylaxis - DVT: heparin gtt, asa, plavix - GI: Not indicated Disposition - Cont. to monitor in ICU for another 12 hours Code status - Full code Visit type - Emergency Visit Emergency Visit: No - New Patient This patient is new to me today: No - Critical Care Critical Care patient: Yes Total Critical Care Time (in minutes): 45 Critical Care Statement: The care of this patient involved high complexity decision making to prevent further life threatening deterioration of the patient 's condition and/or to evalute & treat vital organ system(s) failure or risk of failure.
[2016-11-07] MEDS: SODIUM CHLORIDE 1,000 ML IV SCH ×2 (13:04→22:53)
[2016-11-07] MEDS ORDERED: DEXTROSE IV SCH (14:45)
[2016-11-07] MEDS ORDERED: SODIUM BICARBONATE IV SCH (14:45)
[2016-11-07] MEDS ORDERED: WATER IV SCH (14:45)
--- NOTE | 2016-11-07 16:23 | PN ---
Progress Note, Physician Chief Complaint: AWAKE ALERT FEELING BETTER TOLERATING ICE CHIPS - Current Medication List Current Medications: Active Medications Acetaminophen (Tylenol -) 650 mg PO Q6H PRN PRN Reason: FEVER OR PAIN Albuterol/Ipratropium (Duoneb -) 1 amp NEB Q6H PRN PRN Reason: SHORTNESS OF BREATH Aspirin (Asa -) 81 mg PO DAILY [facility] Last Admin: 11/07/16 10:24 Dose: 81 mg Atorvastatin Calcium (Lipitor -) 20 mg PO [facility] Budesonide/Formoterol Fumarate (Symbicort 80/4.5mcg -) 2 puff IH BID [facility] Last Admin: 11/07/16 10:25 Dose: 2 puff Clopidogrel Bisulfate (Plavix -) 75 mg PO DAILY [facility] Last Admin: 11/07/16 10:25 Dose: 75 mg Cyclobenzaprine HCl (Flexeril -) 10 mg PO BID [facility] Last Admin: 11/07/16 10:24 Dose: 10 mg Diltiazem HCl (Cardizem Cd -) 120 mg PO DAILY [facility] Last Admin: 11/07/16 10:24 Dose: 120 mg Duloxetine HCl (Cymbalta -) 30 mg PO DAILY [facility] Last Admin: 11/07/16 10:24 Dose: 30 mg Heparin Sodium (Porcine) (Heparin -) 1,000 unit IVPUSH PRN PRN PRN Reason: Heparin Heparin Sodium (Porcine) (Heparin -) 5,000 unit IVPUSH PRN PRN PRN Reason: Heparin Last Admin: 11/07/16 01:47 Dose: 5,000 unit Hydromorphone HCl (Dilaudid Injection -) 2 mg IVPB Q3H PRN PRN Reason: PAIN LEVEL 6-10 Last Admin: 11/07/16 13:03 Dose: 2 mg Hydroxyzine HCl (Atarax -) 25 mg PO TID PRN PRN Reason: FOR ITCHING Heparin Sodium/Dextrose (Heparin Infusion -) 500 mls @ 20 mls/hr IVPB TITR MICK ; 1,000 UNITS/HR PRN Reason: Protocol Last Titration: 11/07/16 08:00 Dose: 1,150 units/hr Sodium Chloride (Normal Saline -) 1,000 mls @ 75 mls/hr IV ASDIR [facility] Last Admin: 11/07/16 13:04 Dose: 75 mls/hr Insulin Aspart (Novolog Vial Sliding Scale -) 1 vial SQ ACHS [facility] PRN Reason: Protocol Last Admin: 11/07/16 11:32 Dose: Not Given Insulin Detemir (Levemir Vial) 25 units SQ HS [facility] Lorazepam (Ativan -) 0.5 mg PO TID PRN PRN Reason: ANXIETY Lorazepam (Ativan Injection -) 0.5 mg IVPUSH TID PRN PRN Reason: ANXIETY Losartan Potassium (Cozaar -) 50 mg PO DAILY [facility] Last Admin: 11/07/16 10:24 Dose: 50 mg Meclizine HCl (Antivert -) 25 mg PO TID PRN PRN Reason: VERTIGO Oxycodone HCl (Roxicodone -) 10 mg PO Q6H PRN PRN Reason: PAIN Pregabalin (Lyrica -) 150 mg PO BID [facility] Last Admin: 11/07/16 10:24 Dose: 150 mg Trazodone HCl (Desyrel -) 100 mg PO [facility] - Objective Vital Signs: Vital Signs Temperature 98.3 F 11/07/16 16:00 Pulse Rate 97 H 11/07/16 16:00 Respiratory Rate 18 11/07/16 16:00 Blood Pressure 117/71 11/07/16 16:00 O2 Sat by Pulse Oximetry (%) 93 L 11/07/16 10:10 Constitutional: Yes: No Distress Eyes: Yes: WNL HENT: Yes: WNL Neck: Yes: WNL Cardiovascular: Yes: WNL Respiratory: Yes: WNL Gastrointestinal: Yes: Tenderness Musculoskeletal: Yes: Muscle Weakness Extremities: Yes: Other Edema: Yes Peripheral Pulses WNL: Yes Integumentary: Yes: WNL, Venous Stasis Changes Wound/Incision: Yes: Dressing Dry and Intact, Unapproximated Neurological: Yes: Pre-Existing Deficit ...Motor Strength: LLE Psychiatric: Yes: WNL Labs: CBC, BMP 11/07/16 05:00 11/07/16 05:00 INR, PTT INR 1.02 (0.82-1.09) 11/03/16 22:55 Problem List - Problems (1) Occlusion of graft of lower extremity Code(s): T82.898A - OTH COMPLICATION OF VASCULAR PROSTH DEV/GRFT, INIT Qualifiers: Encounter type: sequela Qualified Code(s): T82.898S - Other specified complication of vascular prosthetic devices, implants and grafts, sequela (2) Arterial occlusion Code(s): I74.9 - EMBOLISM AND THROMBOSIS OF UNSPECIFIED ARTERY (3) Chronic kidney disease (CKD) Code(s): N18.9 - CHRONIC KIDNEY DISEASE, UNSPECIFIED (4) Diabetes mellitus Code(s): E11.9 - TYPE 2 DIABETES MELLITUS WITHOUT COMPLICATIONS Assessment/Plan SEEN IN ICU REDUCING INSULIN TO 25UNITS QHS OF LEVEMIR PAIN CONTROL HOLD LOVENOX UNTIL SEEN BY DR CELESTE BEDSIDE PT SNF LABS AND EVENTS REVIEWED
[2016-11-07] MEDS: PANTOPRAZOLE 40 MG TABLET (FP) PO SCH (18:23)
--- NOTE | 2016-11-07 19:10 | PN ---
Progress Note (short form) - Note Progress Note: Patient seen and examined On heparin drip Receiving narcotic analgesics for pain management Last Vital Signs Temp Pulse Resp BP Pulse Ox 98.8 F 112 H 18 134/92 93 L 11/07/16 18:00 11/07/16 18:00 11/07/16 18:00 11/07/16 18:00 11/07/16 10:10 HEENT: GOLDIE, EOM Intact Cor: RSR, No murmurs, No gallops Lungs: diminished breath sounds Abd: Soft, Normal bowel sounds, No organomegaly, dressing dry Ext:No significant edema; cool feet bilaterally Skin: No rashes, Integument intact CBC, BMP 11/07/16 05:00 11/07/16 05:00 Current Medications Generic Name Dose Route Start Last Admin Trade Name Freq PRN Reason Stop Dose Admin Acetaminophen 650 mg 11/07/16 08:27 Tylenol - PO Q6H PRN FEVER OR PAIN Albuterol/Ipratropium 1 amp 11/07/16 08:27 Duoneb - NEB Q6H PRN SHORTNESS OF BREATH Aspirin 81 mg 11/06/16 19:45 11/07/16 10:24 Asa - PO 81 mg DAILY MICK Administration Atorvastatin Calcium 20 mg 11/07/16 22:00 Lipitor - PO HS [facility] Budesonide/Formoterol Fumarate 2 puff 11/07/16 10:00 11/07/16 10:25 Symbicort 80/4.5mcg - IH 2 puff BID MICK Administration Clopidogrel Bisulfate 75 mg 11/06/16 19:45 11/07/16 10:25 Plavix - PO 75 mg DAILY [facility] Administration Cyclobenzaprine HCl 10 mg 11/07/16 10:00 11/07/16 10:24 Flexeril - PO 10 mg BID MICK Administration Diltiazem HCl 120 mg 11/07/16 10:00 11/07/16 10:24 Cardizem Cd - PO 120 mg DAILY [facility] Administration Duloxetine HCl 30 mg 11/07/16 10:00 11/07/16 10:24 Cymbalta - PO 30 mg DAILY [facility] Administration Heparin Sodium (Porcine) 1,000 unit 11/06/16 19:39 Heparin - IVPUSH PRN PRN Heparin Heparin Sodium (Porcine) 5,000 unit 11/06/16 19:39 11/07/16 01:47 Heparin - IVPUSH 5,000 unit PRN PRN Administration Heparin Hydromorphone HCl 2 mg 11/07/16 08:48 11/07/16 18:23 Dilaudid Injection - IVPB 2 mg Q3H PRN Administration PAIN LEVEL 6-10 Hydroxyzine HCl 25 mg 11/07/16 08:27 Atarax - PO TID PRN FOR ITCHING Heparin Sodium/Dextrose 500 mls @ 20 mls/hr 11/06/16 19:45 11/07/16 08:00 Heparin Infusion - IVPB 1,150 units/hr TITR MICK Titration Protocol 1,000 UNITS/HR Sodium Chloride 1,000 mls @ 75 mls/hr 11/06/16 20:45 11/07/16 13:04 Normal Saline - IV 75 mls/hr ASDIR [facility] Administration Insulin Aspart 1 vial 11/07/16 11:00 11/07/16 16:58 Novolog Vial Sliding Scale - SQ Not Given ACHS [facility] Protocol Insulin Detemir 25 units 11/07/16 22:00 Levemir Vial SQ HS [facility] Lorazepam 0.5 mg 11/07/16 08:27 Ativan - PO TID PRN ANXIETY Lorazepam 0.5 mg 11/07/16 08:27 Ativan Injection - IVPUSH TID PRN ANXIETY Losartan Potassium 50 mg 11/07/16 10:00 11/07/16 10:24 Cozaar - PO 50 mg DAILY MICK Administration Meclizine HCl 25 mg 11/07/16 08:27 Antivert - PO TID PRN VERTIGO Oxycodone HCl 10 mg 11/07/16 08:27 Roxicodone - PO Q6H PRN PAIN Pantoprazole Sodium 40 mg 11/07/16 18:00 11/07/16 18:23 Protonix - PO 40 mg DAILY MICK Administration Pregabalin 150 mg 11/07/16 10:00 11/07/16 10:24 Lyrica - PO 150 mg BID MICK Administration Trazodone HCl 100 mg 11/07/16 22:00 Desyrel - PO HS MICK Impression: S/P aorto-femoral bypass s/p femoral thrombectomy Left iliac vein occlusion CAD-s/p stent REBA DM Anemia Plan: Continue heparin - bridge to oral agents ASA, Plavix per vascular
[2016-11-07] MEDS ORDERED: ATORVASTATIN CA 20 MG TABLET (FP) PO SCH (22:00)
[2016-11-07] MEDS ORDERED: INSULIN DETEMIR 100 UNITS/ML MDV SQ SCH (22:00)
[2016-11-07] MEDS ORDERED: traZODone HCL 50 MG TABLET (FP) PO SCH (22:00)
[2016-11-07] MEDS ORDERED: PT OWN MED DRAWER 7, Y5N ONE (22:52)
[2016-11-07] MEDS: HEPARIN INFUSION - 500 ML IVPB SCH (22:53)
[2016-11-08] MEDS ORDERED: SODIUM CHLORIDE 250 ML IV STA (00:51)
[2016-11-08 06:01] LABS: MCH 26.2 pg (25.7-33.7); MEAN CELL VOLUME 81.8 fl (80-96); MEAN PLT VOLUME 8.4 fl (7.5-11.1); PLATELET COUNT 147 K/MM3 (134-434); RDW 21.1 % (11.6-15.6); WHITE BLOOD COUNT 10.6 K/mm3 (4.0-10.0)
[2016-11-08] MEDS: HYDROmorphone HCL CARPU-JECT 2 MG/1 ML DISP.SYRIN IVPB PRN ×3 (06:42→21:15)
[2016-11-08 07:04] LABS: ALBUMIN 1.7 g/dl (3.4-5.0); BILIRUBIN,TOTAL 0.4 mg/dL (0.2-1.0); CALCIUM 7.7 mg/dL (8.5-10.1); CREATININE 1.3 mg/dL (0.55-1.02); MAGNESIUM 2.2 mg/dL (1.8-2.4); PHOSPHOROUS 3.4 mg/dL (2.5-4.9); TOT PROT 5.2 g/dl (6.4-8.2)
[2016-11-08] MEDS: INSULIN SLIDING SCALE (NOVOLOG) 1 VIAL SQ SCH ×4 (07:10→21:19)
--- NOTE | 2016-11-08 07:35 | PN ---
Progress Note (short form) - Note Progress Note: Alert. Sitting in bed with HOB at 30 degrees. Tolerating PO clears. Passing flatus. Denies n/v/f/c, CP, SOB, weak or dizzy Last Vital Signs Temp Pulse Resp BP Pulse Ox 97.6 F 88 22 112/54 97 11/08/16 02:00 11/08/16 06:00 11/08/16 06:00 11/08/16 06:00 11/07/16 21:00 CBC, BMP 11/08/16 05:15 11/08/16 05:15 PE General: nad ABD: manuel intact. no hematoma/drainage. healing nicely LE: LLE manuel intact. No hematoma/drainage. Dopplerable PT pulse. Foot warm : 1500mL (clear) Problem List - Problems (1) Occlusion of bypass graft Assessment/Plan: POD #5 s/p aorto-unifemoral (left) bypass 3/3 POD #2 s/p open thrombectomy of bypass vein graft/angio 3/6 Cont on IV heparin Strict bed rest Start 2gm Na / diabetic diet Cont ASA and Plavix Tight glycemic control Can downgrade to floor at ICU discretion Code(s): T82.898A - OTH COMPLICATION OF VASCULAR PROSTH DEV/GRFT, INIT Qualifiers: Encounter type: sequela Qualified Code(s): T82.898S - Other specified complication of vascular prosthetic devices, implants and grafts, sequela (2) Hypercoagulable state Code(s): D68.59 - OTHER PRIMARY THROMBOPHILIA (3) Diabetes mellitus Code(s): E11.9 - TYPE 2 DIABETES MELLITUS WITHOUT COMPLICATIONS (4) Obesity Code(s): E66.9 - OBESITY, UNSPECIFIED
[2016-11-08] MEDS: HEPARIN NA (PORCINE) 5,000 UNITS/ML 1ML VIAL IVPUSH PRN ×2 (08:09→18:23)
[2016-11-08] MEDS: SODIUM CHLORIDE 1,000 ML IV SCH (08:18)
[2016-11-08 10:22] LABS: LAC INTERPRETATION Comment: (.)
[2016-11-08] MEDS: ASPIRIN 81 MG CHEWABLE TABLETS PO SCH (10:39)
[2016-11-08] MEDS: CYCLOBENZAPRINE HCL 10 MG TABLET (FP) PO SCH ×2 (10:41→21:19)
[2016-11-08] MEDS: PREGABALIN 75 MG CAPSULE PO SCH ×2 (10:41→21:19)
[2016-11-08] MEDS: LOSARTAN POTASSIUM 50 MG TABLET (FP) PO SCH (10:41)
[2016-11-08] MEDS: DULoxetine HCL 30 MG CAPSULE.DR (FP) PO SCH (10:42)
[2016-11-08] MEDS: PANTOPRAZOLE 40 MG TABLET (FP) PO SCH (10:42)
[2016-11-08] MEDS: CLOPIDOGREL BISULFATE 75 MG TABLET (FP) PO SCH (10:42)
[2016-11-08] MEDS: BUDESONIDE/FORMETEROL FUMARATE 80/4.5 mcg INHALER IH SCH ×2 (10:43→21:19)
[2016-11-08] MEDS ORDERED: POLYETHYLENE GLYCOL 3350 119 GM BTL PO SCH (11:15)
[2016-11-08] MEDS ORDERED: DOCUSATE SODIUM 100 MG CAPSULE (FP) PO SCH (11:15)
--- NOTE | 2016-11-08 12:36 | PN ---
Teaching Attending Note Name of Resident: Can Hollingsworth ATTENDING PHYSICIAN STATEMENT I saw and evaluated the patient. I reviewed the resident's note and discussed the case with the resident. I agree with the resident's findings and plan as documented. SUBJECTIVE: Pt seen and examined in the ICU. Pain relatively controlled. No shortness of breath or chest pain. OBJECTIVE: Last Vital Signs Temp Pulse Resp BP Pulse Ox 97.8 F 101 H 16 133/73 96 11/08/16 08:00 11/08/16 10:55 11/08/16 10:00 11/08/16 10:00 11/08/16 10:55 Intake & Output 11/05/16 11/06/16 11/07/16 11/08/16 23:59 23:59 23:59 23:59 Intake Total 2625 2800 4480 1376 Output Total 2400 1050 3600 1800 Balance 225 1750 880 -424 Weight 165 lb 9 oz 163 lb 12.855 oz 168 lb 8 oz 166 lb Gen: NAD at rest Heart: RRR Lung: decreased breath sounds at the bases Abd: soft, nontender Ext: dressings dry, no edema CBC, BMP 11/08/16 05:15 11/08/16 05:15 Active Medications Acetaminophen (Tylenol -) 650 mg PO Q6H PRN PRN Reason: FEVER OR PAIN Albuterol/Ipratropium (Duoneb -) 1 amp NEB Q6H PRN PRN Reason: SHORTNESS OF BREATH Aspirin (Asa -) 81 mg PO DAILY [facility] Last Admin: 11/08/16 10:39 Dose: 81 mg Atorvastatin Calcium (Lipitor -) 20 mg PO HS [facility] Last Admin: 11/07/16 22:54 Dose: 20 mg Budesonide/Formoterol Fumarate (Symbicort 80/4.5mcg -) 2 puff IH BID [facility] Last Admin: 11/08/16 10:43 Dose: 2 puff Clopidogrel Bisulfate (Plavix -) 75 mg PO DAILY [facility] Last Admin: 11/08/16 10:42 Dose: 75 mg Cyclobenzaprine HCl (Flexeril -) 10 mg PO BID [facility] Last Admin: 11/08/16 10:41 Dose: 10 mg Diltiazem HCl (Cardizem Cd -) 120 mg PO DAILY [facility] Last Admin: 11/08/16 10:41 Dose: 120 mg Docusate Sodium (Colace -) 100 mg PO BID [facility] Duloxetine HCl (Cymbalta -) 30 mg PO DAILY [facility] Last Admin: 11/08/16 10:42 Dose: 30 mg Heparin Sodium (Porcine) (Heparin -) 1,000 unit IVPUSH PRN PRN PRN Reason: Heparin Last Admin: 11/08/16 08:09 Dose: 1,000 unit Heparin Sodium (Porcine) (Heparin -) 5,000 unit IVPUSH PRN PRN PRN Reason: Heparin Last Admin: 11/07/16 01:47 Dose: 5,000 unit Hydromorphone HCl (Dilaudid Injection -) 2 mg IVPB Q3H PRN PRN Reason: PAIN LEVEL 6-10 Last Admin: 11/08/16 06:42 Dose: 2 mg Hydroxyzine HCl (Atarax -) 25 mg PO TID PRN PRN Reason: FOR ITCHING Heparin Sodium/Dextrose (Heparin Infusion -) 500 mls @ 20 mls/hr IVPB TITR [facility]ICK ; 1,000 UNITS/HR PRN Reason: Protocol Last Titration: 11/08/16 08:09 Dose: 1,250 units/hr Sodium Chloride (Normal Saline -) 1,000 mls @ 75 mls/hr IV ASDIR [facility] Last Admin: 11/08/16 08:18 Dose: 75 mls/hr Insulin Aspart (Novolog Vial Sliding Scale -) 1 vial SQ ACHS [facility] PRN Reason: Protocol Last Admin: 11/08/16 07:10 Dose: Not Given Insulin Detemir (Levemir Vial) 25 units SQ HS [facility] Last Admin: 11/07/16 22:55 Dose: 25 units Lorazepam (Ativan -) 0.5 mg PO TID PRN PRN Reason: ANXIETY Last Admin: 11/08/16 10:40 Dose: 0.5 mg Lorazepam (Ativan Injection -) 0.5 mg IVPUSH TID PRN PRN Reason: ANXIETY Losartan Potassium (Cozaar -) 50 mg PO DAILY [facility] Last Admin: 11/08/16 10:41 Dose: 50 mg Meclizine HCl (Antivert -) 25 mg PO TID PRN PRN Reason: VERTIGO Oxycodone HCl (Roxicodone -) 10 mg PO Q6H PRN PRN Reason: PAIN Last Admin: 11/08/16 12:22 Dose: 10 mg Pantoprazole Sodium (Protonix -) 40 mg PO DAILY [facility] Last Admin: 11/08/16 10:42 Dose: 40 mg Polyethylene Glycol (Miralax (For Daily Use) -) 17 gm PO DAILY [facility] Pregabalin (Lyrica -) 150 mg PO BID [facility] Last Admin: 11/08/16 10:41 Dose: 150 mg Trazodone HCl (Desyrel -) 100 mg PO HS [facility] Last Admin: 11/07/16 22:54 Dose: 100 mg ASSESSMENT AND PLAN: PAD 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
[2016-11-08] MEDS: HEPARIN INFUSION - 500 ML IVPB SCH (14:25)
--- NOTE | 2016-11-08 14:27 | PN ---
Physical Exam: SUBJECTIVE: Patient seen and examined at bedside in the ICU. She reported feeling fine overnight, still has pain, no fever overnight. Further denied chest pain, sob, nausea, chills, abd pain, headache, bowel or urinary symptoms. OBJECTIVE: Vital Signs Period Temp Pulse Resp BP Sys/Green Pulse Ox Last 24 Hr 97.6 F-98.8 F 88-112 15-22 85-134/44-92 96-97 GENERAL: Awake, alert, and fully oriented, in no acute distress. EYES: sclera anicteric, conjunctiva clear LUNGS: CTAB HEART: Tachycardic, S1 and S2, no murmur ABDOMEN: Soft, not distended, tenderness around surgical site, surgical manuel and dressing in place in lower abd, no swelling, erythema or drainage visible LOWER EXTREMITIES: warm, No calf tenderness, No peripheral edema, audible pulses on doppler: PT only in L, PT and DP in R foot CBCD WBC 10.6 K/mm3 (4.0-10.0) H D 11/08/16 05:15 RBC 3.31 M/mm3 (3.60-5.2) L 11/08/16 05:15 Hgb 8.7 GM/dL (10.7-15.3) L D 11/08/16 05:15 Hct 27.1 % (32.4-45.2) L 11/08/16 05:15 MCV 81.8 fl (80-96) 11/08/16 05:15 MCHC 32.0 g/dl (32.0-36.0) 11/08/16 05:15 RDW 21.1 % (11.6-15.6) H 11/08/16 05:15 Plt Count 147 K/MM3 (134-434) D 11/08/16 05:15 MPV 8.4 fl (7.5-11.1) 11/08/16 05:15 CMP Sodium 148 mmol/L (136-145) H 11/08/16 05:15 Potassium 3.7 mmol/L (3.5-5.1) 11/08/16 05:15 Chloride 112 mmol/L (98-107) H D 11/08/16 05:15 Carbon Dioxide 28 mmol/L (21-32) 11/08/16 05:15 Anion Gap 8 (8-16) 11/08/16 05:15 BUN 10 mg/dL (7-18) D 11/08/16 05:15 Creatinine 1.3 mg/dL (0.55-1.02) H D 11/08/16 05:15 Creat Clearance w eGFR 44.70 (>60) 11/08/16 05:15 Calcium 7.7 mg/dL (8.5-10.1) L 11/08/16 05:15 Total Bilirubin 0.4 mg/dL (0.2-1.0) 11/08/16 05:15 AST 58 U/L (15-37) H D 11/08/16 05:15 ALT 15 U/L (12-78) 11/08/16 05:15 Alkaline Phosphatase 172 U/L (45-117) H D 11/08/16 05:15 Total Protein 5.2 g/dl (6.4-8.2) L 11/08/16 05:15 Albumin 1.7 g/dl (3.4-5.0) L D 11/08/16 05:15 Intake & Output 11/05/16 11/06/16 11/07/16 11/08/16 23:59 23:59 23:59 23:59 Intake Total 2625 2800 4480 1376 Output Total 2400 1050 3600 1800 Balance 225 1750 880 -424 Weight 75.098 kg 74.3 kg 76.43 kg 75.296 kg Active Medications Generic Name Dose Route Start Last Admin Trade Name Freq PRN Reason Stop Dose Admin Acetaminophen 650 mg 11/07/16 08:27 Tylenol - PO Q6H PRN FEVER OR PAIN Albuterol/Ipratropium 1 amp 11/07/16 08:27 Duoneb - NEB Q6H PRN SHORTNESS OF BREATH Aspirin 81 mg 11/06/16 19:45 11/08/16 10:39 Asa - PO 81 mg DAILY [facility] Administration Atorvastatin Calcium 20 mg 11/07/16 22:00 11/07/16 22:54 Lipitor - PO 20 mg HS [facility] Administration Budesonide/Formoterol Fumarate 2 puff 11/07/16 10:00 11/08/16 10:43 Symbicort 80/4.5mcg - IH 2 puff BID [facility] Administration Clopidogrel Bisulfate 75 mg 11/06/16 19:45 03/08/17 10:42 Plavix - PO 75 mg DAILY [facility] Administration Cyclobenzaprine HCl 10 mg 11/07/16 10:00 11/08/16 10:41 Flexeril - PO 10 mg BID [facility] Administration Diltiazem HCl 120 mg 11/07/16 10:00 11/08/16 10:41 Cardizem Cd - PO 120 mg DAILY [facility] Administration Docusate Sodium 100 mg 11/08/16 11:15 Colace - PO BID [facility] Duloxetine HCl 30 mg 11/07/16 10:00 11/08/16 10:42 Cymbalta - PO 30 mg DAILY [facility] Administration Heparin Sodium (Porcine) 1,000 unit 11/06/16 19:39 11/08/16 08:09 Heparin - IVPUSH 1,000 unit PRN PRN Administration Heparin Heparin Sodium (Porcine) 5,000 unit 11/06/16 19:39 11/07/16 01:47 Heparin - IVPUSH 5,000 unit PRN PRN Administration Heparin Hydromorphone HCl 2 mg 11/07/16 08:48 11/08/16 13:12 Dilaudid Injection - IVPB 2 mg Q3H PRN Administration PAIN LEVEL 6-10 Hydroxyzine HCl 25 mg 11/07/16 08:27 Atarax - PO TID PRN FOR ITCHING Heparin Sodium/Dextrose 500 mls @ 20 mls/hr 11/06/16 19:45 11/08/16 08:09 Heparin Infusion - IVPB 1,250 units/hr TITR [facility] Titration Protocol 1,000 UNITS/HR Sodium Chloride 1,000 mls @ 75 mls/hr 11/06/16 20:45 11/08/16 08:18 Normal Saline - IV 75 mls/hr ASDIR [facility] Administration Insulin Aspart 1 vial 11/07/16 11:00 11/08/16 13:16 Novolog Vial Sliding Scale - SQ Not Given [facility] Protocol Insulin Detemir 25 units 11/07/16 22:00 11/07/16 22:55 Levemir Vial SQ 25 units HS [facility] Administration Lorazepam 0.5 mg 11/07/16 08:27 11/08/16 10:40 Ativan - PO 0.5 mg TID PRN Administration ANXIETY Lorazepam 0.5 mg 11/07/16 08:27 Ativan Injection - IVPUSH TID PRN ANXIETY Losartan Potassium 50 mg 11/07/16 10:00 11/08/16 10:41 Cozaar - PO 50 mg DAILY [facility] Administration Meclizine HCl 25 mg 11/07/16 08:27 Antivert - PO TID PRN VERTIGO Oxycodone HCl 10 mg 11/07/16 08:27 11/08/16 12:22 Roxicodone - PO 10 mg Q6H PRN Administration PAIN Pantoprazole Sodium 40 mg 11/07/16 18:00 11/08/16 10:42 Protonix - PO 40 mg DAILY [facility] Administration Polyethylene Glycol 17 gm 11/08/16 11:15 Miralax (For Daily Use) - PO DAILY [facility] Pregabalin 150 mg 11/07/16 10:00 11/08/16 10:41 Lyrica - PO 150 mg BID [facility] Administration Trazodone HCl 100 mg 11/07/16 22:00 11/07/16 22:54 Desyrel - PO 100 mg HS [facility] Administration ASSESSMENT/PLAN: 41 yo F h/o HTN, HLD, DM2, CVA and hypercoagulable state of unclear etiology with PAD and multiple stents placed in heart and LLE admitted to the hospital for re-occlusion of iliacfemoral graft (3rd time) and she's now s/p aortofemoral bypass. Vascular: PAD 2/2 Idiopathic hypercoagulable state - s/p aortafemoral bypass and open thrombectomy with angiogram - On heparin gtt, plavix and asa - Dilaudid PRN for pain - PT - Pulse check - OOB as tolerated ID: Elevated WBC - WBC trending down - Post-op with no fever - Cont. to monitor CBC Renal: REBA 2/2 contrast - Cr improving with good urine output - Cont. hydration Endo: DM2 and HLD - On levemir 25 Units SQ HS and sliding scale - Cont. statin - BGM FEN - NS 75ml/hr - Hypernatremia, cont. hydration and monitor - Diabetic diet Prophylaxis - DVT: heparin gtt, asa, plavix - GI: Not indicated Disposition - May transfer to [facility]-surg Code status - Full code Visit type - Emergency Visit Emergency Visit: No - New Patient This patient is new to me today: No - Critical Care Critical Care patient: Yes Total Critical Care Time (in minutes): 35 Critical Care Statement: The care of this patient involved high complexity decision making to prevent further life threatening deterioration of the patient 's condition and/or to evalute & treat vital organ system(s) failure or risk of failure.
--- NOTE | 2016-11-08 17:50 | PN ---
Progress Note, Physician Chief Complaint: AWAKE ALERT FEELING BETTER UNABLE TO GET OUT OF BED BECAUSE VASC SX AVOIDING RE-OCCLUSION - Current Medication List Current Medications: Active Medications Acetaminophen (Tylenol -) 650 mg PO Q6H PRN PRN Reason: FEVER OR PAIN Albuterol/Ipratropium (Duoneb -) 1 amp NEB Q6H PRN PRN Reason: SHORTNESS OF BREATH Aspirin (Asa -) 81 mg PO DAILY [facility] Last Admin: 11/08/16 10:39 Dose: 81 mg Atorvastatin Calcium (Lipitor -) 20 mg PO HS [facility] Last Admin: 11/07/16 22:54 Dose: 20 mg Budesonide/Formoterol Fumarate (Symbicort 80/4.5mcg -) 2 puff IH BID [facility] Last Admin: 11/08/16 10:43 Dose: 2 puff Clopidogrel Bisulfate (Plavix -) 75 mg PO DAILY [facility] Last Admin: 11/08/16 10:42 Dose: 75 mg Cyclobenzaprine HCl (Flexeril -) 10 mg PO BID [facility] Last Admin: 11/08/16 10:41 Dose: 10 mg Diltiazem HCl (Cardizem Cd -) 120 mg PO DAILY [facility] Last Admin: 11/08/16 10:41 Dose: 120 mg Docusate Sodium (Colace -) 100 mg PO BID [facility] Last Admin: 11/08/16 16:47 Dose: 100 mg Duloxetine HCl (Cymbalta -) 30 mg PO DAILY [facility] Last Admin: 11/08/16 10:42 Dose: 30 mg Heparin Sodium (Porcine) (Heparin -) 1,000 unit IVPUSH PRN PRN PRN Reason: Heparin Last Admin: 11/08/16 08:09 Dose: 1,000 unit Heparin Sodium (Porcine) (Heparin -) 5,000 unit IVPUSH PRN PRN PRN Reason: Heparin Last Admin: 11/07/16 01:47 Dose: 5,000 unit Hydromorphone HCl (Dilaudid Injection -) 2 mg IVPB Q3H PRN PRN Reason: PAIN LEVEL 6-10 Last Admin: 11/08/16 13:12 Dose: 2 mg Hydroxyzine HCl (Atarax -) 25 mg PO TID PRN PRN Reason: FOR ITCHING Heparin Sodium/Dextrose (Heparin Infusion -) 500 mls @ 20 mls/hr IVPB TITR [facility] ; 1,000 UNITS/HR PRN Reason: Protocol Last Admin: 11/08/16 14:25 Dose: 25 mls/hr Sodium Chloride (Normal Saline -) 1,000 mls @ 75 mls/hr IV ASDIR [facility] Last Admin: 11/08/16 08:18 Dose: 75 mls/hr Insulin Aspart (Novolog Vial Sliding Scale -) 1 vial SQ ACHS [facility] PRN Reason: Protocol Last Admin: 11/08/16 17:09 Dose: 2 units Insulin Detemir (Levemir Vial) 25 units SQ HS [facility] Last Admin: 11/07/16 22:55 Dose: 25 units Lorazepam (Ativan -) 0.5 mg PO TID PRN PRN Reason: ANXIETY Last Admin: 11/08/16 10:40 Dose: 0.5 mg Lorazepam (Ativan Injection -) 0.5 mg IVPUSH TID PRN PRN Reason: ANXIETY Losartan Potassium (Cozaar -) 50 mg PO DAILY [facility] Last Admin: 11/08/16 10:41 Dose: 50 mg Meclizine HCl (Antivert -) 25 mg PO TID PRN PRN Reason: VERTIGO Oxycodone HCl (Roxicodone -) 10 mg PO Q6H PRN PRN Reason: PAIN Last Admin: 11/08/16 12:22 Dose: 10 mg Pantoprazole Sodium (Protonix -) 40 mg PO DAILY [facility] Last Admin: 11/08/16 10:42 Dose: 40 mg Polyethylene Glycol (Miralax (For Daily Use) -) 17 gm PO DAILY [facility] Last Admin: 11/08/16 16:47 Dose: 17 grams Pregabalin (Lyrica -) 150 mg PO BID [facility] Last Admin: 11/08/16 10:41 Dose: 150 mg Trazodone HCl (Desyrel -) 100 mg PO [facility] Last Admin: 11/07/16 22:54 Dose: 100 mg - Objective Vital Signs: Vital Signs Temperature 98 F 11/08/16 12:00 Pulse Rate 104 H 11/08/16 16:00 Respiratory Rate 16 11/08/16 16:00 Blood Pressure 96/63 11/08/16 16:00 O2 Sat by Pulse Oximetry (%) 96 11/08/16 10:55 Constitutional: Yes: Mild Distress Eyes: Yes: WNL HENT: Yes: WNL Neck: Yes: WNL Cardiovascular: Yes: WNL Respiratory: Yes: WNL Gastrointestinal: Yes: WNL Genitourinary: Yes: WNL Musculoskeletal: Yes: Muscle Pain Extremities: Yes: Other Edema: No Peripheral Pulses WNL: Yes Integumentary: Yes: Other Wound/Incision: Yes: Dressing Dry and Intact Neurological: Yes: Pre-Existing Deficit ...Motor Strength: LLE, RLE Psychiatric: Yes: WNL Labs: CBC, BMP 11/08/16 05:15 11/08/16 05:15 INR, PTT INR 1.02 (0.82-1.09) 11/03/16 22:55 Problem List - Problems (1) Occlusion of graft of lower extremity Code(s): T82.898A - [facility] COMPLICATION OF VASCULAR PROSTH DEV/GRFT, INIT Qualifiers: Encounter type: sequela Qualified Code(s): T82.898S - Other specified complication of vascular prosthetic devices, implants and grafts, sequela (2) Arterial occlusion Code(s): I74.9 - EMBOLISM AND THROMBOSIS OF UNSPECIFIED ARTERY (3) Chronic kidney disease (CKD) Code(s): N18.9 - CHRONIC KIDNEY DISEASE, UNSPECIFIED (4) Diabetes mellitus Code(s): E11.9 - TYPE 2 DIABETES MELLITUS WITHOUT COMPLICATIONS Assessment/Plan BGM REVIEWED WILL ADJUST INSULIN THERAPY AC ADA BED REST INCENTIVE SPIROMETRY LABS AND CHART REVIEWED BENEFIT WITH SNF
[2016-11-08] MEDS ORDERED: ACETAMINOPHEN 325 MG TABLET (FP) PO PRN (17:52)
[2016-11-08] MEDS ORDERED: oxyCODONE HCL 5 MG TABLET PO PRN (17:52)
[2016-11-08] MEDS ORDERED: ALBUTEROL SO4 2.5/IPRATROPIUM 0.5 INH SOL 3 ML VIAL.NEB. NEB PRN (17:52)
[2016-11-08] MEDS ORDERED: HEPARIN NA (PORCINE) 5,000 UNITS/ML 1ML VIAL IVPUSH PRN ×4 (17:52)
[2016-11-08] MEDS ORDERED: PT OWN MED DRAWER 7, Y5N ONE ×2 (18:30→21:06)
--- NOTE | 2016-11-08 19:26 | PN ---
Progress Note (short form) - Note Progress Note: PAtient seen and examined s/p thrombectomy of femoral bypass graft Last Vital Signs Temp Pulse Resp BP Pulse Ox 98 F 104 H 16 96/63 96 11/08/16 12:00 11/08/16 16:00 11/08/16 16:00 11/08/16 16:00 11/08/16 10:55 HEENT: GOLDIE, EOM Intact Oropharynx: No thrush, No mucositis Cor: RSR, No murmurs, No gallops Lungs: Clear to P&A Abd: Soft, Normal bowel sounds, No organomegaly Abnormal Lab Results 11/03/16 11/03/16 11/08/16 06:45 08:00 05:15 WBC 10.6 H D RBC 3.31 L Hgb 8.7 L D Hct 27.1 L RDW 21.1 H PTT (Actin FS) LA PTT Baseline 71.4 H Sodium Chloride Creatinine Random Glucose Calcium AST Alkaline Phosphatase Total Protein Albumin Crossmatch See Detail Crossmatch IS Only See Detail 11/08/16 11/08/16 11/08/16 05:15 05:15 14:20 WBC RBC Hgb Hct RDW PTT (Actin FS) 48.4 H 45.4 H LA PTT Baseline Sodium 148 H Chloride 112 H D Creatinine 1.3 H D Random Glucose 66 L D Calcium 7.7 L AST 58 H D Alkaline Phosphatase 172 H D Total Protein 5.2 L Albumin 1.7 L D Crossmatch Crossmatch IS Only Current Medications Acetaminophen (Tylenol -) 650 mg PO Q6H PRN PRN Reason: FEVER OR PAIN Albuterol/Ipratropium (Duoneb -) 1 amp NEB Q6H PRN PRN Reason: SHORTNESS OF BREATH Aspirin (Asa -) 81 mg PO DAILY [facility] Atorvastatin Calcium (Lipitor -) 20 mg PO HS [facility] Budesonide/Formoterol Fumarate (Symbicort 80/4.5mcg -) 2 puff IH BID [facility] Clopidogrel Bisulfate (Plavix -) 75 mg PO DAILY [facility] Cyclobenzaprine HCl (Flexeril -) 10 mg PO BID [facility] Diltiazem HCl (Cardizem Cd -) 120 mg PO DAILY [facility] Docusate Sodium (Colace -) 100 mg PO BID [facility] Duloxetine HCl (Cymbalta -) 30 mg PO DAILY [facility] Heparin Sodium (Porcine) (Heparin -) 1,000 unit IVPUSH PRN PRN PRN Reason: Heparin Heparin Sodium (Porcine) (Heparin -) 5,000 unit IVPUSH PRN PRN PRN Reason: Heparin Hydromorphone HCl (Dilaudid Injection -) 2 mg IVPB Q3H PRN PRN Reason: PAIN LEVEL 6-10 Hydroxyzine HCl (Atarax -) 25 mg PO TID PRN PRN Reason: FOR ITCHING Heparin Sodium/Dextrose (Heparin Infusion -) 500 mls @ 20 mls/hr IVPB TITR [facility] ; 1,000 UNITS/HR PRN Reason: Protocol Sodium Chloride (Normal Saline -) 1,000 mls @ 75 mls/hr IV ASDIR [facility] Insulin Aspart (Novolog Vial Sliding Scale -) 1 vial SQ ACHS [facility] PRN Reason: Protocol Insulin Detemir (Levemir Vial) 25 units SQ HS [facility] Lorazepam (Ativan -) 0.5 mg PO TID PRN PRN Reason: ANXIETY Losartan Potassium (Cozaar -) 50 mg PO DAILY [facility] Meclizine HCl (Antivert -) 25 mg PO TID PRN PRN Reason: VERTIGO Oxycodone HCl (Roxicodone -) 10 mg PO Q6H PRN PRN Reason: PAIN Pantoprazole Sodium (Protonix -) 40 mg PO DAILY [facility] Polyethylene Glycol (Miralax (For Daily Use) -) 17 gm PO DAILY [facility] Pregabalin (Lyrica -) 150 mg PO BID [facility] Trazodone HCl (Desyrel -) 100 mg PO HS [facility] A/P 41 y/o patient with reurrent thrombosis of bypass graft. s/p thrombectomy today thrombophilia w/u pending on heparin/asa/plavix monitor CBC/coags, closely check anemia w/u will discuss with vascular team
[2016-11-08] MEDS: INSULIN DETEMIR 100 UNITS/ML MDV SQ SCH (21:17)
[2016-11-08] MEDS: ATORVASTATIN CA 20 MG TABLET (FP) PO SCH (21:18)
[2016-11-08] MEDS: traZODone HCL 50 MG TABLET (FP) PO SCH (22:00)
[2016-11-08] MEDS: DOCUSATE SODIUM 100 MG CAPSULE (FP) PO SCH (22:00)
[2016-11-09] MEDS: INSULIN SLIDING SCALE (NOVOLOG) 1 VIAL SQ SCH ×4 (06:33→21:47)
[2016-11-09] MEDS: SODIUM CHLORIDE 1,000 ML IV SCH ×2 (06:36→18:57)
[2016-11-09] MEDS: HEPARIN INFUSION - 500 ML IVPB SCH ×2 (06:37→09:41)
[2016-11-09 08:17] LABS: MCH 26.7 pg (25.7-33.7); MCHC 32.6 g/dl (32.0-36.0); MEAN CELL VOLUME 81.8 fl (80-96); MEAN PLT VOLUME 8.3 fl (7.5-11.1); PLATELET COUNT 187 K/MM3 (134-434); RDW 21.1 % (11.6-15.6); WHITE BLOOD COUNT 10.6 K/mm3 (4.0-10.0)
[2016-11-09] MEDS ORDERED: PT OWN MED DRAWER 7, Y5N ONE ×2 (08:17→22:01)
[2016-11-09 08:53] LABS: FERRITIN 134.055 ng/ml (6.9-282.5)
[2016-11-09 09:25] LABS: ALBUMIN 1.8 g/dl (3.4-5.0); CALCIUM 7.7 mg/dL (8.5-10.1); CREATININE 1.2 mg/dL (0.55-1.02); MAGNESIUM 1.9 mg/dL (1.8-2.4); PHOSPHOROUS 3.4 mg/dL (2.5-4.9)
[2016-11-09 09:27] LABS: BILIRUBIN,TOTAL 0.5 mg/dL (0.2-1.0); TOT PROT 5.6 g/dl (6.4-8.2)
[2016-11-09] MEDS: PREGABALIN 75 MG CAPSULE PO SCH ×2 (09:36→21:45)
[2016-11-09] MEDS: DULoxetine HCL 30 MG CAPSULE.DR (FP) PO SCH (09:36)
[2016-11-09] MEDS: PANTOPRAZOLE 40 MG TABLET (FP) PO SCH (09:36)
[2016-11-09] MEDS: LOSARTAN POTASSIUM 50 MG TABLET (FP) PO SCH (09:37)
[2016-11-09] MEDS: DOCUSATE SODIUM 100 MG CAPSULE (FP) PO SCH ×2 (09:39→21:46)
[2016-11-09] MEDS: BUDESONIDE/FORMETEROL FUMARATE 80/4.5 mcg INHALER IH SCH ×2 (09:39→21:50)
[2016-11-09] MEDS: ASPIRIN 81 MG CHEWABLE TABLETS PO SCH (09:39)
[2016-11-09] MEDS: CLOPIDOGREL BISULFATE 75 MG TABLET (FP) PO SCH (09:54)
[2016-11-09] MEDS: CYCLOBENZAPRINE HCL 10 MG TABLET (FP) PO SCH ×2 (09:54→21:45)
[2016-11-09] MEDS: POLYETHYLENE GLYCOL 3350 119 GM BTL PO SCH (09:55)
--- NOTE | 2016-11-09 11:23 | PN ---
Progress Note (short form) - Note Progress Note: Alert. Sitting in bed with HOB at 30 degrees. Tolerating PO clears. Passing flatus. Denies n/v/f/c, CP, SOB, weak or dizzy Last Vital Signs Temp Pulse Resp BP Pulse Ox 98.7 F 99 H 10 L 89/50 95 11/09/16 06:00 11/09/16 11:10 11/09/16 06:00 11/09/16 06:00 11/09/16 11:10 H/H TREND 11/08/16 11/09/16 05:15 07:50 Hgb 8.7 L D 8.4 L Hct 27.1 L 25.9 L PE General: nad ABD: manuel intact. no hematoma/drainage. healing nicely LE: LLE manuel intact. No hematoma/drainage. Dopplerable PT pulse. Foot warm Problem List - Problems (1) Occlusion of bypass graft Assessment/Plan: POD #6 s/p aorto-unifemoral (left) bypass POD #3 s/p open thrombectomy of bypass vein graft/angio f/u Heme Consult (Anemia) Monitor H/H IV heparin Strict bed rest 2gm Na / diabetic diet Cont ASA and Plavix Tight glycemic control Downgrade to floor Code(s): T82.898A - [facility] COMPLICATION OF VASCULAR PROSTH DEV/GRFT, INIT Qualifiers: Encounter type: sequela Qualified Code(s): T82.898S - Other specified complication of vascular prosthetic devices, implants and grafts, sequela (2) Hypercoagulable state Code(s): D68.59 - OTHER PRIMARY THROMBOPHILIA (3) Diabetes mellitus Code(s): E11.9 - TYPE 2 DIABETES MELLITUS WITHOUT COMPLICATIONS (4) Obesity Code(s): E66.9 - OBESITY, UNSPECIFIED Problem List - Problems (1) Occlusion of bypass graft Code(s): T82.898A - OTH COMPLICATION OF VASCULAR PROSTH DEV/GRFT, INIT Qualifiers: Encounter type: sequela Qualified Code(s): T82.898S - Other specified complication of vascular prosthetic devices, implants and grafts, sequela (2) Hypercoagulable state Code(s): D68.59 - OTHER PRIMARY THROMBOPHILIA (3) Diabetes mellitus Code(s): E11.9 - TYPE 2 DIABETES MELLITUS WITHOUT COMPLICATIONS (4) Obesity Code(s): E66.9 - OBESITY, UNSPECIFIED
[2016-11-09] MEDS: LORazepam 0.5 MG TABLET PO PRN ×2 (11:43→21:47)
--- NOTE | 2016-11-09 11:44 | PN ---
Physical Exam: SUBJECTIVE: Patient seen and examined at bedside in the ICU. She reported feeling the same, slight pain at surgical site, good bowel movement and urinary output, decent appetite, no fever, chills overnight. No other complaints. OBJECTIVE: Vital Signs Period Temp Pulse Resp BP Sys/Green Pulse Ox Last 24 Hr 98 F-98.7 F 82-115 9-21 81-140/49-83 95-100 GENERAL: Awake, alert, and fully oriented, in no acute distress. EYES: sclera anicteric, conjunctiva clear LUNGS: CTAB HEART: Tachycardic, S1 and S2, no murmur ABDOMEN: Soft, not distended, tenderness around surgical site, surgical manuel and dressing in place in lower abd, no swelling, erythema or drainage visible LOWER EXTREMITIES: warm, No calf tenderness, No peripheral edema, audible pulses on doppler: PT only in L, PT and DP in R foot CBCD WBC 10.6 K/mm3 (4.0-10.0) H 11/09/16 07:50 RBC 3.16 M/mm3 (3.60-5.2) L 11/09/16 07:50 Hgb 8.4 GM/dL (10.7-15.3) L 11/09/16 07:50 Hct 25.9 % (32.4-45.2) L 11/09/16 07:50 MCV 81.8 fl (80-96) 11/09/16 07:50 MCHC 32.6 g/dl (32.0-36.0) 11/09/16 07:50 RDW 21.1 % (11.6-15.6) H 11/09/16 07:50 Plt Count 187 K/MM3 (134-434) D 11/09/16 07:50 MPV 8.3 fl (7.5-11.1) 11/09/16 07:50 CMP Sodium 146 mmol/L (136-145) H 11/09/16 07:50 Potassium 4.0 mmol/L (3.5-5.1) 11/09/16 07:50 Chloride 108 mmol/L (98-107) H 11/09/16 07:50 Carbon Dioxide 29 mmol/L (21-32) 11/09/16 07:50 Anion Gap 9 (8-16) 11/09/16 07:50 BUN 10 mg/dL (7-18) 11/09/16 07:50 Creatinine 1.2 mg/dL (0.55-1.02) H 11/09/16 07:50 Creat Clearance w eGFR 49.03 (>60) 11/09/16 07:50 Calcium 7.7 mg/dL (8.5-10.1) L 11/09/16 07:50 Total Bilirubin 0.5 mg/dL (0.2-1.0) D 11/09/16 07:50 AST 35 U/L (15-37) D 11/09/16 07:50 ALT 12 U/L (12-78) 11/09/16 07:50 Alkaline Phosphatase 150 U/L (45-117) H 11/09/16 07:50 Total Protein 5.6 g/dl (6.4-8.2) L 11/09/16 07:50 Albumin 1.8 g/dl (3.4-5.0) L 11/09/16 07:50 Intake & Output 11/06/16 11/07/16 11/08/16 11/09/16 23:59 23:59 23:59 23:59 Intake Total 2800 4480 4608 1389 Output Total 1050 3600 3200 Balance 4709 065 2814 1389 Weight 74.3 kg 76.43 kg 75.296 kg 76.2 kg Active Medications Generic Name Dose Route Start Last Admin Trade Name Freq PRN Reason Stop Dose Admin Acetaminophen 650 mg 11/08/16 17:52 Tylenol - PO Q6H PRN FEVER OR PAIN Albuterol/Ipratropium 1 amp 11/08/16 17:52 Duoneb - NEB Q6H PRN SHORTNESS OF BREATH Aspirin 81 mg 11/09/16 10:00 11/09/16 09:39 Asa - PO 81 mg DAILY MICK Administration Atorvastatin Calcium 20 mg 11/08/16 22:00 11/08/16 21:18 Lipitor - PO 20 mg HS MICK Administration Budesonide/Formoterol Fumarate 2 puff 11/08/16 22:00 11/09/16 09:39 Symbicort 80/4.5mcg - IH 2 puff BID MICK Administration Clopidogrel Bisulfate 75 mg 11/09/16 10:00 11/09/16 09:54 Plavix - PO 75 mg DAILY MICK Administration Cyclobenzaprine HCl 10 mg 11/08/16 22:00 11/09/16 09:54 Flexeril - PO 10 mg BID MICK Administration Diltiazem HCl 120 mg 11/09/16 10:00 11/09/16 09:38 Cardizem Cd - PO 120 mg DAILY MICK Administration Docusate Sodium 100 mg 11/08/16 22:00 11/09/16 09:39 Colace - PO 100 mg BID MICK Administration Duloxetine HCl 30 mg 11/09/16 10:00 11/09/16 09:36 Cymbalta - PO 30 mg DAILY MICK Administration Heparin Sodium (Porcine) 1,000 unit 11/08/16 17:52 Heparin - IVPUSH PRN PRN Heparin Heparin Sodium (Porcine) 5,000 unit 11/08/16 17:52 Heparin - IVPUSH PRN PRN Heparin Hydromorphone HCl 2 mg 11/08/16 17:52 11/08/16 21:15 Dilaudid Injection - IVPB 2 mg Q3H PRN Administration PAIN LEVEL 6-10 Hydroxyzine HCl 25 mg 11/08/16 17:52 Atarax - PO TID PRN FOR ITCHING Heparin Sodium/Dextrose 500 mls @ 20 mls/hr 11/08/16 17:52 11/09/16 09:41 Heparin Infusion - IVPB 29 mls/hr TITR MICK Administration Protocol 1,000 UNITS/HR Sodium Chloride 1,000 mls @ 75 mls/hr 11/08/16 17:52 11/09/16 06:36 Normal Saline - IV 75 mls/hr ASDIR MICK Administration Insulin Aspart 1 vial 11/08/16 22:00 11/09/16 06:33 Novolog Vial Sliding Scale - SQ Not Given ACHS [facility] Protocol Insulin Detemir 25 units 11/08/16 22:00 11/08/16 21:17 Levemir Vial SQ 25 units HS MICK Administration Lorazepam 0.5 mg 11/08/16 17:52 Ativan - PO TID PRN ANXIETY Losartan Potassium 50 mg 11/09/16 10:00 11/09/16 09:37 Cozaar - PO 50 mg DAILY MICK Administration Meclizine HCl 25 mg 11/08/16 17:52 Antivert - PO TID PRN VERTIGO Oxycodone HCl 10 mg 11/08/16 17:52 Roxicodone - PO Q6H PRN PAIN Pantoprazole Sodium 40 mg 11/09/16 10:00 11/09/16 09:36 Protonix - PO 40 mg DAILY MICK Administration Polyethylene Glycol 17 gm 11/09/16 10:00 11/09/16 09:55 Miralax (For Daily Use) - PO Not Given DAILY MICK Pregabalin 150 mg 11/08/16 22:00 11/09/16 09:36 Lyrica - PO 150 mg BID MICK Administration Trazodone HCl 100 mg 11/08/16 22:00 11/08/16 22:00 Desyrel - PO 100 mg HS MICK Administration ASSESSMENT/PLAN: 41 yo F h/o HTN, HLD, DM2, CVA and hypercoagulable state of unclear etiology with PAD and multiple stents placed in heart and LLE admitted to the hospital for re-occlusion of iliacfemoral graft (3rd time) and she's now s/p aortofemoral bypass. Vascular: PAD 2/2 Idiopathic hypercoagulable state - s/p aortafemoral bypass and open thrombectomy with angiogram - Cont. heparin gtt, plavix and asa - Dilaudid PRN for pain - Pulse check - Strict bedrest ID: Elevated WBC - Post-op with no fever - Cont. to monitor CBC Renal: REBA 2/2 contrast - Cr cont. to improve good urine output - Cont. hydration Endo: DM2 and HLD - On levemir 25 Units SQ HS and sliding scale - Cont. statin - BGM FEN - NS 75ml/hr - Hypernatremia improving, cont. hydration and monitor - Diabetic diet Prophylaxis - DVT: heparin gtt, asa, plavix - GI: Not indicated Disposition - Bedrest, May transfer to med-surg Code status - Full code Visit type - Emergency Visit Emergency Visit: No - New Patient This patient is new to me today: No - Critical Care Critical Care patient: Yes Total Critical Care Time (in minutes): 35 Critical Care Statement: The care of this patient involved high complexity decision making to prevent further life threatening deterioration of the patient 's condition and/or to evalute & treat vital organ system(s) failure or risk of failure.
--- NOTE | 2016-11-09 11:52 | PN ---
Teaching Attending Note Name of Resident: Can Hollingsworth ATTENDING PHYSICIAN STATEMENT I saw and evaluated the patient. I reviewed the resident's note and discussed the case with the resident. I agree with the resident's findings and plan as documented. SUBJECTIVE: Pt seen and examined in the ICU. Pain adequately controlled. Denies shortness of breath or chest pain. OBJECTIVE: Last Vital Signs Temp Pulse Resp BP Pulse Ox 98.7 F 99 H 10 L 89/50 95 11/09/16 06:00 11/09/16 11:10 11/09/16 06:00 11/09/16 06:00 11/09/16 11:10 Intake & Output 11/06/16 11/07/16 11/08/16 11/09/16 23:59 23:59 23:59 23:59 Intake Total 2800 4480 4608 1389 Output Total 1050 3600 3200 Balance 0846 576 1223 1389 Weight 163 lb 12.855 oz 168 lb 8 oz 166 lb 167 lb 15.876 oz Gen: NAD at rest Heart: RRR Lung: decreased breath sounds at the bases Abd: soft, nontender Ext: no edema, dressings/incisions clean CBC, BMP 11/09/16 07:50 11/09/16 07:50 Active Medications Acetaminophen (Tylenol -) 650 mg PO Q6H PRN PRN Reason: FEVER OR PAIN Albuterol/Ipratropium (Duoneb -) 1 amp NEB Q6H PRN PRN Reason: SHORTNESS OF BREATH Aspirin (Asa -) 81 mg PO DAILY [facility] Last Admin: 11/09/16 09:39 Dose: 81 mg Atorvastatin Calcium (Lipitor -) 20 mg PO [facility] Last Admin: 11/08/16 21:18 Dose: 20 mg Budesonide/Formoterol Fumarate (Symbicort 80/4.5mcg -) 2 puff IH BID [facility] Last Admin: 11/09/16 09:39 Dose: 2 puff Clopidogrel Bisulfate (Plavix -) 75 mg PO DAILY [facility] Last Admin: 11/09/16 09:54 Dose: 75 mg Cyclobenzaprine HCl (Flexeril -) 10 mg PO BID [facility] Last Admin: 11/09/16 09:54 Dose: 10 mg Diltiazem HCl (Cardizem Cd -) 120 mg PO DAILY [facility] Last Admin: 11/09/16 09:38 Dose: 120 mg Docusate Sodium (Colace -) 100 mg PO BID [facility] Last Admin: 11/09/16 09:39 Dose: 100 mg Duloxetine HCl (Cymbalta -) 30 mg PO DAILY [facility] Last Admin: 11/09/16 09:36 Dose: 30 mg Heparin Sodium (Porcine) (Heparin -) 1,000 unit IVPUSH PRN PRN PRN Reason: Heparin Heparin Sodium (Porcine) (Heparin -) 5,000 unit IVPUSH PRN PRN PRN Reason: Heparin Hydromorphone HCl (Dilaudid Injection -) 2 mg IVPB Q3H PRN PRN Reason: PAIN LEVEL 6-10 Last Admin: 11/08/16 21:15 Dose: 2 mg Hydroxyzine HCl (Atarax -) 25 mg PO TID PRN PRN Reason: FOR ITCHING Heparin Sodium/Dextrose (Heparin Infusion -) 500 mls @ 20 mls/hr IVPB TITR MICK ; 1,000 UNITS/HR PRN Reason: Protocol Last Admin: 11/09/16 09:41 Dose: 29 mls/hr Sodium Chloride (Normal Saline -) 1,000 mls @ 75 mls/hr IV ASDIR [facility] Last Admin: 11/09/16 06:36 Dose: 75 mls/hr Insulin Aspart (Novolog Vial Sliding Scale -) 1 vial SQ ACHS [facility] PRN Reason: Protocol Last Admin: 11/09/16 06:33 Dose: Not Given Insulin Detemir (Levemir Vial) 25 units SQ HS [facility] Last Admin: 11/08/16 21:17 Dose: 25 units Lorazepam (Ativan -) 0.5 mg PO TID PRN PRN Reason: ANXIETY Last Admin: 11/09/16 11:43 Dose: 0.5 mg Losartan Potassium (Cozaar -) 50 mg PO DAILY [facility] Last Admin: 11/09/16 09:37 Dose: 50 mg Meclizine HCl (Antivert -) 25 mg PO TID PRN PRN Reason: VERTIGO Oxycodone HCl (Roxicodone -) 10 mg PO Q6H PRN PRN Reason: PAIN Pantoprazole Sodium (Protonix -) 40 mg PO DAILY [facility] Last Admin: 11/09/16 09:36 Dose: 40 mg Polyethylene Glycol (Miralax (For Daily Use) -) 17 gm PO DAILY [facility] Last Admin: 11/09/16 09:55 Dose: Not Given Pregabalin (Lyrica -) 150 mg PO BID [facility] Last Admin: 11/09/16 09:36 Dose: 150 mg Trazodone HCl (Desyrel -) 100 mg PO HS [facility] Last Admin: 11/08/16 22:00 Dose: 100 mg ASSESSMENT AND PLAN: PAD Left Iliac Artery Occlusion s/p Aortofemoral Bypass with non-reversed saphenous vein s/p Left Femoral Open thrombectomy 11/06 CAD s/p stent h/o CVA HTN DM Hyperlipidemia Acute Kidney Injury - continue IVF - monitor urine output, creatinine - continue anticoagulation - pain control - pulse checks - wound care - monitor H/H - advance diet per surgery - physical therapy - glucose control - statin - can monitor on floor
[2016-11-09] MEDS: HYDROmorphone HCL CARPU-JECT 2 MG/1 ML DISP.SYRIN IVPB PRN ×2 (13:33→19:29)
--- NOTE | 2016-11-09 20:00 | PN ---
Progress Note, Physician Chief Complaint: AWAKE, ALERT FEELING BETTER TOLERATING PO +FLATULENCE - Current Medication List Current Medications: Active Medications Acetaminophen (Tylenol -) 650 mg PO Q6H PRN PRN Reason: FEVER OR PAIN Albuterol/Ipratropium (Duoneb -) 1 amp NEB Q6H PRN PRN Reason: SHORTNESS OF BREATH Aspirin (Asa -) 81 mg PO DAILY [facility] Last Admin: 11/09/16 09:39 Dose: 81 mg Atorvastatin Calcium (Lipitor -) 20 mg PO HS [facility] Last Admin: 11/08/16 21:18 Dose: 20 mg Budesonide/Formoterol Fumarate (Symbicort 80/4.5mcg -) 2 puff IH BID [facility] Last Admin: 11/09/16 09:39 Dose: 2 puff Clopidogrel Bisulfate (Plavix -) 75 mg PO DAILY [facility] Last Admin: 11/09/16 09:54 Dose: 75 mg Cyclobenzaprine HCl (Flexeril -) 10 mg PO BID [facility] Last Admin: 11/09/16 09:54 Dose: 10 mg Diltiazem HCl (Cardizem Cd -) 120 mg PO DAILY [facility] Last Admin: 11/09/16 09:38 Dose: 120 mg Docusate Sodium (Colace -) 100 mg PO BID [facility] Last Admin: 11/09/16 09:39 Dose: 100 mg Duloxetine HCl (Cymbalta -) 30 mg PO DAILY [facility] Last Admin: 11/09/16 09:36 Dose: 30 mg Heparin Sodium (Porcine) (Heparin -) 1,000 unit IVPUSH PRN PRN PRN Reason: Heparin Heparin Sodium (Porcine) (Heparin -) 5,000 unit IVPUSH PRN PRN PRN Reason: Heparin Hydromorphone HCl (Dilaudid Injection -) 2 mg IVPB Q3H PRN PRN Reason: PAIN LEVEL 6-10 Last Admin: 11/09/16 19:29 Dose: 2 mg Hydroxyzine HCl (Atarax -) 25 mg PO TID PRN PRN Reason: FOR ITCHING Heparin Sodium/Dextrose (Heparin Infusion -) 500 mls @ 20 mls/hr IVPB TITR MICK ; 1,000 UNITS/HR PRN Reason: Protocol Last Admin: 11/09/16 09:41 Dose: 29 mls/hr Insulin Aspart (Novolog Vial Sliding Scale -) 1 vial SQ ACHS [facility] PRN Reason: Protocol Last Admin: 11/09/16 17:00 Dose: Not Given Insulin Detemir (Levemir Vial) 25 units SQ HS [facility] Last Admin: 11/08/16 21:17 Dose: 25 units Lorazepam (Ativan -) 0.5 mg PO TID PRN PRN Reason: ANXIETY Last Admin: 11/09/16 11:43 Dose: 0.5 mg Losartan Potassium (Cozaar -) 50 mg PO DAILY [facility] Last Admin: 11/09/16 09:37 Dose: 50 mg Meclizine HCl (Antivert -) 25 mg PO TID PRN PRN Reason: VERTIGO Oxycodone HCl (Roxicodone -) 10 mg PO Q6H PRN PRN Reason: PAIN Pantoprazole Sodium (Protonix -) 40 mg PO DAILY [facility] Last Admin: 11/09/16 09:36 Dose: 40 mg Polyethylene Glycol (Miralax (For Daily Use) -) 17 gm PO DAILY [facility] Last Admin: 11/09/16 09:55 Dose: Not Given Pregabalin (Lyrica -) 150 mg PO BID [facility] Last Admin: 11/09/16 09:36 Dose: 150 mg Trazodone HCl (Desyrel -) 100 mg PO HS [facility] Last Admin: 11/08/16 22:00 Dose: 100 mg - Objective Vital Signs: Vital Signs Temperature 99.9 F H 11/09/16 16:00 Pulse Rate 99 H 11/09/16 18:00 Respiratory Rate 16 11/09/16 18:00 Blood Pressure 155/54 11/09/16 18:00 O2 Sat by Pulse Oximetry (%) 95 11/09/16 11:10 Constitutional: Yes: Mild Distress Eyes: Yes: WNL HENT: Yes: WNL Neck: Yes: WNL Cardiovascular: Yes: WNL Respiratory: Yes: WNL Gastrointestinal: Yes: WNL Genitourinary: Yes: WNL Musculoskeletal: Yes: Muscle Pain, Muscle Weakness Extremities: Yes: Other Edema: No Peripheral Pulses WNL: Yes Integumentary: Yes: Other Wound/Incision: Yes: Dressing Dry and Intact Neurological: Yes: Pre-Existing Deficit ...Motor Strength: LLE, RLE Psychiatric: Yes: Other Labs: CBC, BMP 11/09/16 07:50 11/09/16 07:50 INR, PTT INR 1.02 (0.82-1.09) 11/03/16 22:55 Problem List - Problems (1) Occlusion of graft of lower extremity Code(s): T82.898A - OTH COMPLICATION OF VASCULAR PROSTH DEV/GRFT, INIT Qualifiers: Encounter type: sequela Qualified Code(s): T82.898S - Other specified complication of vascular prosthetic devices, implants and grafts, sequela (2) Arterial occlusion Code(s): I74.9 - EMBOLISM AND THROMBOSIS OF UNSPECIFIED ARTERY (3) Chronic kidney disease (CKD) Code(s): N18.9 - CHRONIC KIDNEY DISEASE, UNSPECIFIED (4) Diabetes mellitus Code(s): E11.9 - TYPE 2 DIABETES MELLITUS WITHOUT COMPLICATIONS Assessment/Plan TRANSFER TO MED-SURG DC PLANNING WHEN CLEARED BY [facility] SX OOB TO CHAIR WITH ASSIST ADA WITH GLYCEMIC CONTROL DISCUSSED WITH PATIENT [facility] SURGERY F/U APPRECIATED OPERATIVE NOTES AND CHART REVIEWED ANEMIA CHRONIC, MONITOR CAREFULLY WHILE ON AC WEEKLY CBC AT MY OFFICE OUTPATIENT
[2016-11-09] MEDS: traZODone HCL 50 MG TABLET (FP) PO SCH (21:45)
[2016-11-09] MEDS: INSULIN DETEMIR 100 UNITS/ML MDV SQ SCH (21:46)
[2016-11-09] MEDS: ATORVASTATIN CA 20 MG TABLET (FP) PO SCH (21:46)
[2016-11-10] MEDS: HYDROmorphone HCL CARPU-JECT 2 MG/1 ML DISP.SYRIN IVPB PRN ×4 (03:11→21:12)
[2016-11-10] MEDS: HEPARIN INFUSION - 500 ML IVPB SCH ×3 (03:11→20:41)
[2016-11-10] MEDS: INSULIN SLIDING SCALE (NOVOLOG) 1 VIAL SQ SCH ×4 (06:52→22:02)
[2016-11-10 08:12] LABS: MCH 26.5 pg (25.7-33.7); MCHC 32.5 g/dl (32.0-36.0); MEAN CELL VOLUME 81.3 fl (80-96); MEAN PLT VOLUME 8.6 fl (7.5-11.1); PLATELET COUNT 225 K/MM3 (134-434); RDW 20.6 % (11.6-15.6); WHITE BLOOD COUNT 10.6 K/mm3 (4.0-10.0)
[2016-11-10] MEDS: ASPIRIN 81 MG CHEWABLE TABLETS PO SCH (09:00)
[2016-11-10] MEDS: LOSARTAN POTASSIUM 50 MG TABLET (FP) PO SCH (09:01)
[2016-11-10] MEDS: CYCLOBENZAPRINE HCL 10 MG TABLET (FP) PO SCH ×2 (09:01→22:00)
--- NOTE | 2016-11-10 09:01 | PN ---
Progress Note (short form) - Note Progress Note: VSS Pain improving. Surgical wounds clean. Foot warm. PT pulse wt doppler. Await completion of hematology evaluation to decide on long-term anticoagulation regimen. PT to increase activity. Problem List - Problems (1) Occlusion of graft of lower extremity Code(s): T82.898A - OT COMPLICATION OF VASCULAR PROSTH DEV/GRFT, INIT Qualifiers: Encounter type: sequela Qualified Code(s): T82.898S - Other specified complication of vascular prosthetic devices, implants and grafts, sequela (2) Hypercoagulable state Code(s): D68.59 - OTHER PRIMARY THROMBOPHILIA
[2016-11-10] MEDS: DULoxetine HCL 30 MG CAPSULE.DR (FP) PO SCH (09:02)
[2016-11-10] MEDS: DOCUSATE SODIUM 100 MG CAPSULE (FP) PO SCH ×2 (09:03→22:00)
[2016-11-10] MEDS: PANTOPRAZOLE 40 MG TABLET (FP) PO SCH (09:03)
[2016-11-10] MEDS: CLOPIDOGREL BISULFATE 75 MG TABLET (FP) PO SCH (09:03)
[2016-11-10] MEDS: PREGABALIN 75 MG CAPSULE PO SCH ×2 (09:04→22:01)
[2016-11-10] MEDS: POLYETHYLENE GLYCOL 3350 119 GM BTL PO SCH (09:04)
[2016-11-10 10:41] LABS: CALCIUM 7.8 mg/dL (8.5-10.1); CREATININE 1.1 mg/dL (0.55-1.02)
[2016-11-10] MEDS: LORazepam 0.5 MG TABLET PO PRN ×2 (11:44→22:03)
[2016-11-10] MEDS: BUDESONIDE/FORMETEROL FUMARATE 80/4.5 mcg INHALER IH SCH ×2 (11:45→22:02)
--- NOTE | 2016-11-10 15:11 | PN ---
Progress Note, Physician Chief Complaint: AWAKE ALERT FEELING BETTER - Current Medication List Current Medications: Active Medications Acetaminophen (Tylenol -) 650 mg PO Q6H PRN PRN Reason: FEVER OR PAIN Albuterol/Ipratropium (Duoneb -) 1 amp NEB Q6H PRN PRN Reason: SHORTNESS OF BREATH Aspirin (Asa -) 81 mg PO DAILY [facility] Last Admin: 11/10/16 09:00 Dose: 81 mg Atorvastatin Calcium (Lipitor -) 20 mg PO HS [facility] Last Admin: 11/09/16 21:46 Dose: 20 mg Budesonide/Formoterol Fumarate (Symbicort 80/4.5mcg -) 2 puff IH BID [facility] Last Admin: 11/10/16 11:45 Dose: 2 puff Clopidogrel Bisulfate (Plavix -) 75 mg PO DAILY [facility] Last Admin: 11/10/16 09:03 Dose: 75 mg Cyclobenzaprine HCl (Flexeril -) 10 mg PO BID [facility] Last Admin: 11/10/16 09:01 Dose: 10 mg Diltiazem HCl (Cardizem Cd -) 120 mg PO DAILY [facility] Last Admin: 11/10/16 09:04 Dose: 120 mg Docusate Sodium (Colace -) 100 mg PO BID [facility] Last Admin: 11/10/16 09:03 Dose: 100 mg Duloxetine HCl (Cymbalta -) 30 mg PO DAILY [facility] Last Admin: 11/10/16 09:02 Dose: 30 mg Heparin Sodium (Porcine) (Heparin -) 1,000 unit IVPUSH PRN PRN PRN Reason: Heparin Heparin Sodium (Porcine) (Heparin -) 5,000 unit IVPUSH PRN PRN PRN Reason: Heparin Hydromorphone HCl (Dilaudid Injection -) 2 mg IVPB Q3H PRN PRN Reason: PAIN LEVEL 6-10 Last Admin: 11/10/16 09:21 Dose: 2 mg Hydroxyzine HCl (Atarax -) 25 mg PO TID PRN PRN Reason: FOR ITCHING Heparin Sodium/Dextrose (Heparin Infusion -) 500 mls @ 20 mls/hr IVPB TITR MICK ; 1,000 UNITS/HR PRN Reason: Protocol Last Titration: 11/10/16 08:45 Dose: 1,450 units/hr Insulin Aspart (Novolog Vial Sliding Scale -) 1 vial SQ ACHS [facility] PRN Reason: Protocol Last Admin: 11/10/16 11:48 Dose: Not Given Insulin Detemir (Levemir Vial) 25 units SQ HS [facility] Last Admin: 11/09/16 21:46 Dose: 25 units Lorazepam (Ativan -) 0.5 mg PO TID PRN PRN Reason: ANXIETY Last Admin: 11/10/16 11:44 Dose: 0.5 mg Losartan Potassium (Cozaar -) 50 mg PO DAILY [facility] Last Admin: 11/10/16 09:01 Dose: 50 mg Meclizine HCl (Antivert -) 25 mg PO TID PRN PRN Reason: VERTIGO Oxycodone HCl (Roxicodone -) 10 mg PO Q6H PRN PRN Reason: PAIN Pantoprazole Sodium (Protonix -) 40 mg PO DAILY [facility] Last Admin: 11/10/16 09:03 Dose: 40 mg Polyethylene Glycol (Miralax (For Daily Use) -) 17 gm PO DAILY [facility] Last Admin: 11/10/16 09:04 Dose: 17 gm Pregabalin (Lyrica -) 150 mg PO BID [facility] Last Admin: 11/10/16 09:04 Dose: 150 mg Trazodone HCl (Desyrel -) 100 mg PO HS [facility] Last Admin: 11/09/16 21:45 Dose: 100 mg - Objective Vital Signs: Vital Signs Temperature 98.4 F 11/10/16 06:00 Pulse Rate 18 L 11/10/16 08:38 Respiratory Rate 76 H 11/10/16 08:38 Blood Pressure 108/60 11/10/16 08:38 O2 Sat by Pulse Oximetry (%) 100 11/10/16 08:39 Constitutional: Yes: No Distress Eyes: Yes: WNL HENT: Yes: WNL Neck: Yes: WNL Cardiovascular: Yes: WNL Respiratory: Yes: WNL Gastrointestinal: Yes: WNL Genitourinary: Yes: WNL Musculoskeletal: Yes: Muscle Weakness Extremities: Yes: WNL Edema: No Peripheral Pulses WNL: Yes Integumentary: Yes: WNL Wound/Incision: Yes: Dressing Dry and Intact Neurological: Yes: Pre-Existing Deficit ...Motor Strength: LLE, RLE Psychiatric: Yes: Other Labs: CBC, BMP 11/10/16 06:00 11/10/16 06:00 INR, PTT INR 1.02 (0.82-1.09) 11/03/16 22:55 Problem List - Problems (1) Occlusion of graft of lower extremity Code(s): T82.898A - OTH COMPLICATION OF VASCULAR PROSTH DEV/GRFT, INIT Qualifiers: Encounter type: sequela Qualified Code(s): T82.898S - Other specified complication of vascular prosthetic devices, implants and grafts, sequela (2) Arterial occlusion Code(s): I74.9 - EMBOLISM AND THROMBOSIS OF UNSPECIFIED ARTERY (3) Chronic kidney disease (CKD) Code(s): N18.9 - CHRONIC KIDNEY DISEASE, UNSPECIFIED (4) Diabetes mellitus Code(s): E11.9 - TYPE 2 DIABETES MELLITUS WITHOUT COMPLICATIONS Assessment/Plan DC PLANNING WHEN CLEARED BY [facility] SX OOB TO CHAIR WITH ASSIST ADA WITH GLYCEMIC CONTROL DISCUSSED WITH PATIENT [facility] SURGERY F/U APPRECIATED OPERATIVE NOTES AND CHART REVIEWED ANEMIA CHRONIC, MONITOR CAREFULLY WHILE ON AC WEEKLY CBC AT MY OFFICE OUTPATIENT
--- NOTE | 2016-11-10 18:13 | PN ---
Progress Note (short form) - Note Progress Note: PAtient seen and examined s/p thrombectomy of femoral bypass graft Last Vital Signs Temp Pulse Resp BP Pulse Ox 97.4 F L 19 L 92 H 134/71 100 11/10/16 15:14 11/10/16 15:14 11/10/16 15:14 11/10/16 15:14 11/10/16 08:39 HEENT: GOLDIE, EOM Intact Oropharynx: No thrush, No mucositis Cor: RSR, No murmurs, No gallops Lungs: Clear to P&A Abd: Soft, Normal bowel sounds, No organomegaly foot warm Abnormal Lab Results 11/09/16 11/10/16 11/10/16 07:50 06:00 06:00 WBC 10.6 H RBC 3.14 L Hgb 8.3 L Hct 25.5 L RDW 20.6 H PTT (Actin FS) 68.8 H Sodium Chloride Creatinine Calcium Iron 12 L TIBC 204 L Iron Saturation 6 L 11/10/16 06:00 WBC RBC Hgb Hct RDW PTT (Actin FS) Sodium 146 H Chloride 110 H Creatinine 1.1 H Calcium 7.8 L Iron TIBC Iron Saturation Current Medications Acetaminophen (Tylenol -) 650 mg PO Q6H PRN PRN Reason: FEVER OR PAIN Albuterol/Ipratropium (Duoneb -) 1 amp NEB Q6H PRN PRN Reason: SHORTNESS OF BREATH Aspirin (Asa -) 81 mg PO DAILY [facility] Last Admin: 11/10/16 09:00 Dose: 81 mg Atorvastatin Calcium (Lipitor -) 20 mg PO HS [facility] Last Admin: 11/09/16 21:46 Dose: 20 mg Budesonide/Formoterol Fumarate (Symbicort 80/4.5mcg -) 2 puff IH BID [facility] Last Admin: 11/10/16 11:45 Dose: 2 puff Clopidogrel Bisulfate (Plavix -) 75 mg PO DAILY [facility] Last Admin: 11/10/16 09:03 Dose: 75 mg Cyclobenzaprine HCl (Flexeril -) 10 mg PO BID [facility] Last Admin: 11/10/16 09:01 Dose: 10 mg Diltiazem HCl (Cardizem Cd -) 120 mg PO DAILY [facility] Last Admin: 11/10/16 09:04 Dose: 120 mg Docusate Sodium (Colace -) 100 mg PO BID [facility] Last Admin: 11/10/16 09:03 Dose: 100 mg Duloxetine HCl (Cymbalta -) 30 mg PO DAILY [facility] Last Admin: 11/10/16 09:02 Dose: 30 mg Heparin Sodium (Porcine) (Heparin -) 1,000 unit IVPUSH PRN PRN PRN Reason: Heparin Heparin Sodium (Porcine) (Heparin -) 5,000 unit IVPUSH PRN PRN PRN Reason: Heparin Hydromorphone HCl (Dilaudid Injection -) 2 mg IVPB Q3H PRN PRN Reason: PAIN LEVEL 6-10 Last Admin: 11/10/16 16:02 Dose: 2 mg Hydroxyzine HCl (Atarax -) 25 mg PO TID PRN PRN Reason: FOR ITCHING Heparin Sodium/Dextrose (Heparin Infusion -) 500 mls @ 20 mls/hr IVPB TITR MICK ; 1,000 UNITS/HR PRN Reason: Protocol Last Titration: 11/10/16 08:45 Dose: 1,450 units/hr Insulin Aspart (Novolog Vial Sliding Scale -) 1 vial SQ ACHS [facility] PRN Reason: Protocol Last Admin: 11/10/16 17:55 Dose: Not Given Insulin Detemir (Levemir Vial) 25 units SQ HS [facility] Last Admin: 11/09/16 21:46 Dose: 25 units Lorazepam (Ativan -) 0.5 mg PO TID PRN PRN Reason: ANXIETY Last Admin: 11/10/16 11:44 Dose: 0.5 mg Losartan Potassium (Cozaar -) 50 mg PO DAILY [facility] Last Admin: 11/10/16 09:01 Dose: 50 mg Meclizine HCl (Antivert -) 25 mg PO TID PRN PRN Reason: VERTIGO Oxycodone HCl (Roxicodone -) 10 mg PO Q6H PRN PRN Reason: PAIN Pantoprazole Sodium (Protonix -) 40 mg PO DAILY [facility] Last Admin: 11/10/16 09:03 Dose: 40 mg Polyethylene Glycol (Miralax (For Daily Use) -) 17 gm PO DAILY [facility] Last Admin: 11/10/16 09:04 Dose: 17 gm Pregabalin (Lyrica -) 150 mg PO BID [facility] Last Admin: 11/10/16 09:04 Dose: 150 mg Trazodone HCl (Desyrel -) 100 mg PO HS [facility] Last Admin: 11/09/16 21:45 Dose: 100 mg A/P 41 y/o patient with reurrent thrombosis of bypass graft. s/p thrombectomy thrombophilia w/u -- ACL/anti b2 glycoprotein abs negative. Prothrombin gene [id number] neg. Factor V leiden pending. Protein C --nl Protein S free --mildly low --will need repeat testing ATIII could not be tested as patient is on heparin on heparin/asa/plavix discussed with vascular team -- will bridge heparin to coumadin. will stop plavix. continue asa 81mg daily anemia--low iron saturation --? menorrhagia--will start niferex 150mg daily to f/u outpatient low [id number] B12 1000mcg daily
[2016-11-10] MEDS: traZODone HCL 50 MG TABLET (FP) PO SCH (22:00)
[2016-11-10] MEDS: INSULIN DETEMIR 100 UNITS/ML MDV SQ SCH (22:01)
[2016-11-10] MEDS: ATORVASTATIN CA 20 MG TABLET (FP) PO SCH (22:01)
[2016-11-10] MEDS ORDERED: PT OWN MED DRAWER 7, Y5N ONE (23:15)
[2016-11-11] MEDS: HYDROmorphone HCL CARPU-JECT 2 MG/1 ML DISP.SYRIN IVPB PRN ×4 (03:43→20:14)
[2016-11-11] MEDS: INSULIN SLIDING SCALE (NOVOLOG) 1 VIAL SQ SCH ×4 (06:48→21:48)
[2016-11-11] MEDS ORDERED: INSULIN (NOVOLOG) ASPART 100 UNITS/ML 10ML VIAL ONE (07:01)
[2016-11-11 07:55] LABS: MCH 26.2 pg (25.7-33.7); MCHC 32.2 g/dl (32.0-36.0); MEAN CELL VOLUME 81.5 fl (80-96); MEAN PLT VOLUME 8.4 fl (7.5-11.1); PLATELET COUNT 245 K/MM3 (134-434); RDW 20.1 % (11.6-15.6); WHITE BLOOD COUNT 9.6 K/mm3 (4.0-10.0)
[2016-11-11 08:06] LABS: HEMATOCRIT 26.7 % (34.0-46.6)
[2016-11-11] MEDS ORDERED: PT OWN MED DRAWER 7, Y5N ONE ×4 (09:14→21:30)
[2016-11-11] MEDS: HEPARIN INFUSION - 500 ML IVPB SCH ×2 (09:15→15:23)
[2016-11-11] MEDS: BUDESONIDE/FORMETEROL FUMARATE 80/4.5 mcg INHALER IH SCH ×2 (09:16→21:38)
[2016-11-11] MEDS: CYCLOBENZAPRINE HCL 10 MG TABLET (FP) PO SCH ×2 (09:17→21:37)
[2016-11-11] MEDS: PANTOPRAZOLE 40 MG TABLET (FP) PO SCH (09:17)
[2016-11-11] MEDS: POLYETHYLENE GLYCOL 3350 119 GM BTL PO SCH (09:17)
[2016-11-11] MEDS: ASPIRIN 81 MG CHEWABLE TABLETS PO SCH (09:17)
[2016-11-11] MEDS: LOSARTAN POTASSIUM 50 MG TABLET (FP) PO SCH (09:17)
[2016-11-11] MEDS: DULoxetine HCL 30 MG CAPSULE.DR (FP) PO SCH (09:17)
[2016-11-11] MEDS: PREGABALIN 75 MG CAPSULE PO SCH ×2 (09:17→21:36)
[2016-11-11] MEDS: DOCUSATE SODIUM 100 MG CAPSULE (FP) PO SCH ×2 (09:17→21:37)
[2016-11-11] MEDS: CYANOCOBALAMIN 1,000 MCG TABLET (FP) PO SCH (09:18)
--- NOTE | 2016-11-11 09:53 | PN ---
Progress Note, Physician Chief Complaint: C/O BLOOD WHEN SIT ON TOILET - Current Medication List Current Medications: Active Medications Acetaminophen (Tylenol -) 650 mg PO Q6H PRN PRN Reason: FEVER OR PAIN Albuterol/Ipratropium (Duoneb -) 1 amp NEB Q6H PRN PRN Reason: SHORTNESS OF BREATH Aspirin (Asa -) 81 mg PO DAILY [facility] Last Admin: 11/11/16 09:17 Dose: 81 mg Atorvastatin Calcium (Lipitor -) 20 mg PO HS [facility] Last Admin: 11/10/16 22:01 Dose: 20 mg Budesonide/Formoterol Fumarate (Symbicort 80/4.5mcg -) 2 puff IH BID [facility] Last Admin: 11/11/16 09:16 Dose: 2 puff Cyanocobalamin (Vitamin B12 -) 1,000 mcg PO DAILY [facility] Last Admin: 11/11/16 09:18 Dose: 1,000 mcg Cyclobenzaprine HCl (Flexeril -) 10 mg PO BID [facility] Last Admin: 11/11/16 09:17 Dose: 10 mg Diltiazem HCl (Cardizem Cd -) 120 mg PO DAILY [facility] Last Admin: 11/11/16 09:16 Dose: 120 mg Docusate Sodium (Colace -) 100 mg PO BID [facility] Last Admin: 11/11/16 09:17 Dose: 100 mg Duloxetine HCl (Cymbalta -) 30 mg PO DAILY [facility] Last Admin: 11/11/16 09:17 Dose: 30 mg Heparin Sodium (Porcine) (Heparin -) 1,000 unit IVPUSH PRN PRN PRN Reason: Heparin Heparin Sodium (Porcine) (Heparin -) 5,000 unit IVPUSH PRN PRN PRN Reason: Heparin Hydromorphone HCl (Dilaudid Injection -) 2 mg IVPB Q3H PRN PRN Reason: PAIN LEVEL 6-10 Last Admin: 11/11/16 03:43 Dose: 2 mg Hydroxyzine HCl (Atarax -) 25 mg PO TID PRN PRN Reason: FOR ITCHING Heparin Sodium/Dextrose (Heparin Infusion -) 500 mls @ 20 mls/hr IVPB TITR MICK ; 1,000 UNITS/HR PRN Reason: Protocol Last Admin: 11/11/16 09:15 Dose: 29 mls/hr Insulin Aspart (Novolog Vial Sliding Scale -) 1 vial SQ ACHS [facility] PRN Reason: Protocol Last Admin: 11/11/16 06:48 Dose: 2 units Insulin Detemir (Levemir Vial) 25 units SQ HS [facility] Last Admin: 11/10/16 22:01 Dose: Not Given Lorazepam (Ativan -) 0.5 mg PO TID PRN PRN Reason: ANXIETY Last Admin: 11/10/16 22:03 Dose: 0.5 mg Losartan Potassium (Cozaar -) 50 mg PO DAILY [facility] Last Admin: 11/11/16 09:17 Dose: 50 mg Meclizine HCl (Antivert -) 25 mg PO TID PRN PRN Reason: VERTIGO Oxycodone HCl (Roxicodone -) 10 mg PO Q6H PRN PRN Reason: PAIN Pantoprazole Sodium (Protonix -) 40 mg PO DAILY [facility] Last Admin: 11/11/16 09:17 Dose: 40 mg Polyethylene Glycol (Miralax (For Daily Use) -) 17 gm PO DAILY [facility] Last Admin: 11/11/16 09:17 Dose: 17 gm Polysaccharide Iron Complex (Niferex-150 -) 150 mg PO DAILY [facility] Pregabalin (Lyrica -) 150 mg PO BID [facility] Last Admin: 11/11/16 09:17 Dose: 150 mg Trazodone HCl (Desyrel -) 100 mg PO HS [facility] Last Admin: 11/10/16 22:00 Dose: 100 mg - Objective Vital Signs: Vital Signs Temperature 98.4 F 11/11/16 07:00 Pulse Rate 82 11/11/16 07:00 Respiratory Rate 18 11/11/16 07:00 Blood Pressure 101/58 11/11/16 07:00 O2 Sat by Pulse Oximetry (%) 100 11/10/16 21:00 Cardiovascular: Yes: WNL Respiratory: Yes: WNL Gastrointestinal: Yes: WNL Edema: No Wound/Incision: Yes: Dressing Dry and Intact (LLE LAURYN C/D/I. UNDERWEAR BLOOD SOAKED. NO ACTIVE BLEED.) Labs: CBC, BMP 11/11/16 06:20 11/10/16 06:00 INR, PTT INR 1.02 (0.82-1.09) 11/03/16 22:55 Problem List - Problems (1) Occlusion of graft of lower extremity Code(s): T82.898A - OTH COMPLICATION OF VASCULAR PROSTH DEV/GRFT, INIT Qualifiers: Encounter type: sequela Qualified Code(s): T82.898S - Other specified complication of vascular prosthetic devices, implants and grafts, sequela (2) CAD (coronary artery disease) Code(s): I25.10 - ATHSCL HEART DISEASE OF [place] CORONARY ARTERY W/O ANG PCTRS Qualifiers: Coronary Disease-Associated Artery/Lesion type: coronary artery bypass graft Associated angina: without angina pectoris (3) Chronic kidney disease (CKD) Code(s): N18.9 - CHRONIC KIDNEY DISEASE, UNSPECIFIED (4) Diabetes mellitus Code(s): E11.9 - TYPE 2 DIABETES MELLITUS WITHOUT COMPLICATIONS (5) Hypertension Code(s): I10 - ESSENTIAL (PRIMARY) HYPERTENSION Qualifiers: Hypertension type: essential hypertension Qualified Code(s): I10 - Essential (primary) hypertension Assessment/Plan (1) Occlusion of graft of lower extremity Code(s): T82.898A - OT COMPLICATION OF VASCULAR PROSTH DEV/GRFT, INIT Qualifiers: Encounter type: sequela Qualified Code(s): T82.898S - Other specified complication of vascular prosthetic devices, implants and grafts, sequela (2) Arterial occlusion Code(s): I74.9 - EMBOLISM AND THROMBOSIS OF UNSPECIFIED ART[place] (3) Chronic kidney disease (CKD) Code(s): N18.9 - CHRONIC KIDNEY DISEASE, UNSPECIFIED (4) Diabetes mellitus Code(s): E11.9 - TYPE 2 DIABETES MELLITUS WITHOUT COMPLICATIONS Assessment/Plan DC PLANNING APPRECIATE HEME CONSULT -> ON IV HEPARIN + COUMADIN STARTED -> F/U INR OOB TO CHAIR WITH ASSIST ADA WITH GLYCEMIC CONTROL DISCUSSED WITH PATIENT VASC SURGERY F/U APPRECIATED OPERATIVE NOTES AND CHART REVIEWED ANEMIA CHRONIC, MONITOR CAREFULLY WHILE ON AC WEEKLY 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
[2016-11-11] MEDS: IRON POLYSACCHARIDES 150 MG CAPSULE PO SCH (10:51)
--- NOTE | 2016-11-11 11:28 | PN ---
Progress Note (short form) - Note Progress Note: No new c/o Wounds clean and dry Foot warm, pulses intact. Discussed with Dr. Mullins - will transition to Coumadin and d/c Plavix. Problem List - Problems (1) Occlusion of graft of lower extremity Code(s): T82.898A - [facility] COMPLICATION OF VASCULAR PROSTH DEV/GRFT, INIT Qualifiers: Encounter type: sequela Qualified Code(s): T82.898S - Other specified complication of vascular prosthetic devices, implants and grafts, sequela (2) Hypercoagulable state Code(s): D68.59 - OTHER PRIMARY THROMBOPHILIA
[2016-11-11 18:34] LABS: INR 0.98 (0.82-1.09); PROTHROMBIN TIME (PATIENT) 10.8 SEC (9.98-11.88)
[2016-11-11] MEDS: WARFARIN NA 5 MG TABLET (UD) PO SCH (18:45)
[2016-11-11] MEDS: LORazepam 0.5 MG TABLET PO PRN (21:37)
[2016-11-11] MEDS: traZODone HCL 50 MG TABLET (FP) PO SCH (21:37)
[2016-11-11] MEDS: ATORVASTATIN CA 20 MG TABLET (FP) PO SCH (21:38)
[2016-11-11] MEDS: INSULIN DETEMIR 100 UNITS/ML MDV SQ SCH (21:47)
[2016-11-12] MEDS: HEPARIN INFUSION - 500 ML IVPB SCH ×3 (01:27→18:57)
[2016-11-12] MEDS: HYDROmorphone HCL CARPU-JECT 2 MG/1 ML DISP.SYRIN IVPB PRN ×4 (01:30→19:36)
[2016-11-12] MEDS: INSULIN SLIDING SCALE (NOVOLOG) 1 VIAL SQ SCH ×4 (06:45→21:59)
[2016-11-12 08:12] LABS: BASOPHIL 0.7 % (0-2.0); EOSINOPHIL 12.4 % (0-4.5); MCH 26.2 pg (25.7-33.7); MCHC 31.9 g/dl (32.0-36.0); MEAN CELL VOLUME 82.2 fl (80-96); MEAN PLT VOLUME 8.3 fl (7.5-11.1); NEUTROPHILS 54.1 % (42.8-82.8); PLATELET COUNT 296 K/MM3 (134-434); RDW 19.9 % (11.6-15.6); WHITE BLOOD COUNT 10.8 K/mm3 (4.0-10.0)
[2016-11-12 08:24] LABS: INR 1.04 (0.82-1.09); PROTHROMBIN TIME (PATIENT) 11.4 SEC (9.98-11.88)
[2016-11-12 08:40] LABS: BILIRUBIN,TOTAL 0.2 mg/dL (0.2-1.0); CREATININE 1.2 mg/dL (0.55-1.02); TOT PROT 5.8 g/dl (6.4-8.2)
[2016-11-12] MEDS: DOCUSATE SODIUM 100 MG CAPSULE (FP) PO SCH ×2 (09:09→21:58)
[2016-11-12] MEDS: CYCLOBENZAPRINE HCL 10 MG TABLET (FP) PO SCH ×2 (09:09→21:59)
[2016-11-12] MEDS: CYANOCOBALAMIN 1,000 MCG TABLET (FP) PO SCH (09:09)
[2016-11-12] MEDS: PANTOPRAZOLE 40 MG TABLET (FP) PO SCH (09:09)
[2016-11-12] MEDS: DULoxetine HCL 30 MG CAPSULE.DR (FP) PO SCH (09:09)
[2016-11-12] MEDS: ASPIRIN 81 MG CHEWABLE TABLETS PO SCH (09:09)
[2016-11-12] MEDS: LOSARTAN POTASSIUM 50 MG TABLET (FP) PO SCH (09:09)
[2016-11-12] MEDS: PREGABALIN 75 MG CAPSULE PO SCH ×2 (09:09→21:58)
[2016-11-12] MEDS: POLYETHYLENE GLYCOL 3350 119 GM BTL PO SCH (09:10)
[2016-11-12] MEDS: BUDESONIDE/FORMETEROL FUMARATE 80/4.5 mcg INHALER IH SCH ×2 (09:10→21:59)
[2016-11-12] MEDS: IRON POLYSACCHARIDES 150 MG CAPSULE PO SCH (09:23)
--- NOTE | 2016-11-12 11:52 | PN ---
Progress Note (short form) - Note Progress Note: Pt states that while standing yesterday she noted some blood from her upper thigh incision. Pressure was held and then she had no further bleeding. Vital Signs Period Temp Pulse Resp BP Sys/Green Pulse Ox Last 24 Hr 97.8 F-98.7 F 80-94 18-20 100-126/53-81 92-98 PE: ABD: soft, non-distended, non-tender. Midline inc c/d/i with manuel. Left thigh. inc line c/d/i with manuel. No erythema or drainage noted. Left groin inc cover with [id number] dressing. left foot warm and with doppler DP/PT pulse. Upper thigh soft and without ecchymosis. CBC, BMP 11/12/16 07:20 11/12/16 07:20 INR, PTT INR 1.04 (0.82-1.09) 11/12/16 07:20 Laboratory Tests 11/12/16 07:20 PTT (Actin FS) 94.4 H D A/P: 41 yo female s/p aorot-left femoral bypass with throbectomy of left bypass bedrest except for bathroom privileges On asa/plavix/ with transition from IV hep-coumadin(dose given yesterday) diet as tolerated
--- NOTE | 2016-11-12 12:35 | PN ---
Progress Note, Physician Chief Complaint: NO CHANGE - Current Medication List Current Medications: Active Medications Acetaminophen (Tylenol -) 650 mg PO Q6H PRN PRN Reason: FEVER OR PAIN Albuterol/Ipratropium (Duoneb -) 1 amp NEB Q6H PRN PRN Reason: SHORTNESS OF BREATH Aspirin (Asa -) 81 mg PO DAILY [facility] Last Admin: 11/12/16 09:09 Dose: 81 mg Atorvastatin Calcium (Lipitor -) 20 mg PO HS [facility] Last Admin: 11/11/16 21:38 Dose: 20 mg Budesonide/Formoterol Fumarate (Symbicort 80/4.5mcg -) 2 puff IH BID [facility] Last Admin: 11/12/16 09:10 Dose: 2 puff Cyanocobalamin (Vitamin B12 -) 1,000 mcg PO DAILY [facility] Last Admin: 11/12/16 09:09 Dose: 1,000 mcg Cyclobenzaprine HCl (Flexeril -) 10 mg PO BID [facility] Last Admin: 11/12/16 09:09 Dose: 10 mg Diltiazem HCl (Cardizem Cd -) 120 mg PO DAILY [facility] Last Admin: 11/12/16 09:09 Dose: 120 mg Docusate Sodium (Colace -) 100 mg PO BID [facility] Last Admin: 11/12/16 09:09 Dose: 100 mg Duloxetine HCl (Cymbalta -) 30 mg PO DAILY [facility] Last Admin: 11/12/16 09:09 Dose: 30 mg Heparin Sodium (Porcine) (Heparin -) 1,000 unit IVPUSH PRN PRN PRN Reason: Heparin Heparin Sodium (Porcine) (Heparin -) 5,000 unit IVPUSH PRN PRN PRN Reason: Heparin Hydromorphone HCl (Dilaudid Injection -) 2 mg IVPB Q3H PRN PRN Reason: PAIN LEVEL 6-10 Last Admin: 11/12/16 08:59 Dose: 2 mg Hydroxyzine HCl (Atarax -) 25 mg PO TID PRN PRN Reason: FOR ITCHING Heparin Sodium/Dextrose (Heparin Infusion -) 500 mls @ 20 mls/hr IVPB TITR MICK ; 1,000 UNITS/HR PRN Reason: Protocol Last Admin: 11/12/16 09:56 Dose: 27 mls/hr Insulin Aspart (Novolog Vial Sliding Scale -) 1 vial SQ ACHS [facility] PRN Reason: Protocol Last Admin: 11/12/16 11:26 Dose: Not Given Insulin Detemir (Levemir Vial) 25 units SQ HS [facility] Last Admin: 11/11/16 21:47 Dose: 25 units Lorazepam (Ativan -) 0.5 mg PO TID PRN PRN Reason: ANXIETY Last Admin: 11/11/16 21:37 Dose: 0.5 mg Losartan Potassium (Cozaar -) 50 mg PO DAILY [facility] Last Admin: 11/12/16 09:09 Dose: 50 mg Meclizine HCl (Antivert -) 25 mg PO TID PRN PRN Reason: VERTIGO Oxycodone HCl (Roxicodone -) 10 mg PO Q6H PRN PRN Reason: PAIN Pantoprazole Sodium (Protonix -) 40 mg PO DAILY [facility] Last Admin: 11/12/16 09:09 Dose: 40 mg Polyethylene Glycol (Miralax (For Daily Use) -) 17 gm PO DAILY [facility] Last Admin: 11/12/16 09:10 Dose: 17 gm Polysaccharide Iron Complex (Niferex-150 -) 150 mg PO DAILY [facility] Last Admin: 11/12/16 09:23 Dose: 150 mg Pregabalin (Lyrica -) 150 mg PO BID [facility] Last Admin: 11/12/16 09:09 Dose: 150 mg Trazodone HCl (Desyrel -) 100 mg PO HS [facility] Last Admin: 11/11/16 21:37 Dose: 100 mg Warfarin Sodium (Coumadin -) 5 mg PO DAILY@1800 [facility] Last Admin: 11/11/16 18:45 Dose: 5 mg - Objective Vital Signs: Vital Signs Temperature 98.6 F 11/12/16 10:00 Pulse Rate 84 11/12/16 10:57 Respiratory Rate 20 11/12/16 10:00 Blood Pressure 126/81 11/12/16 10:00 O2 Sat by Pulse Oximetry (%) 94 L 11/12/16 10:57 Cardiovascular: Yes: WNL Respiratory: Yes: WNL Gastrointestinal: Yes: WNL Edema: No Wound/Incision: Yes: Dressing Dry and Intact Labs: CBC, BMP 11/12/16 07:20 11/12/16 07:20 INR, PTT INR 1.04 (0.82-1.09) 11/12/16 07:20 Problem List - Problems (1) Occlusion of graft of lower extremity Code(s): T82.898A - OT COMPLICATION OF VASCULAR PROSTH DEV/GRFT, INIT Qualifiers: Encounter type: sequela Qualified Code(s): T82.898S - Other specified complication of vascular prosthetic devices, implants and grafts, sequela (2) CAD (coronary artery disease) Code(s): I25.10 - ATHSCL HEART DISEASE OF [place] CORONARY ARTERY W/O ANG PCTRS Qualifiers: Coronary Disease-Associated Artery/Lesion type: coronary artery bypass graft Associated angina: without angina pectoris (3) Chronic kidney disease (CKD) Code(s): N18.9 - CHRONIC KIDNEY DISEASE, UNSPECIFIED (4) Diabetes mellitus Code(s): E11.9 - TYPE 2 DIABETES MELLITUS WITHOUT COMPLICATIONS (5) Hypertension Code(s): I10 - ESSENTIAL (PRIMARY) HYPERTENSION Qualifiers: Hypertension type: essential hypertension Qualified Code(s): I10 - Essential (primary) hypertension Assessment/Plan (1) Occlusion of graft of lower extremity Code(s): T82.898A - [facility] COMPLICATION OF VASCULAR PROSTH DEV/GRFT, INIT Qualifiers: Encounter type: sequela Qualified Code(s): T82.898S - Other specified complication of vascular prosthetic devices, implants and grafts, sequela (2) Arterial occlusion Code(s): I74.9 - EMBOLISM AND THROMBOSIS OF UNSPECIFIED ARTERY (3) Chronic kidney disease (CKD) Code(s): N18.9 - CHRONIC KIDNEY DISEASE, UNSPECIFIED (4) Diabetes mellitus Code(s): E11.9 - TYPE 2 DIABETES MELLITUS WITHOUT COMPLICATIONS Assessment/Plan DC PLANNING APPRECIATE HEME CONSULT -> ON IV HEPARIN + COUMADIN STARTED -> F/U INR OOB TO CHAIR WITH ASSIST ADA WITH GLYCEMIC CONTROL DISCUSSED WITH PATIENT VASC SURGERY F/U APPRECIATED ANEMIA CHRONIC, MONITOR CAREFULLY WHILE ON AC WEEKLY CBC AT MY OFFICE OUTPATIENT WOUND BLED 11/11 -> MONITOR WHILE ON AC PASTOR [place]
[2016-11-12] MEDS: WARFARIN NA 5 MG TABLET (UD) PO SCH (18:04)
[2016-11-12] MEDS: LORazepam 0.5 MG TABLET PO PRN (21:58)
[2016-11-12] MEDS: ATORVASTATIN CA 20 MG TABLET (FP) PO SCH (21:58)
[2016-11-12] MEDS: traZODone HCL 50 MG TABLET (FP) PO SCH (21:59)
[2016-11-12] MEDS: INSULIN DETEMIR 100 UNITS/ML MDV SQ SCH (22:01)
[2016-11-13] MEDS: HYDROmorphone HCL CARPU-JECT 2 MG/1 ML DISP.SYRIN IVPB PRN ×4 (06:28→21:47)
[2016-11-13] MEDS: INSULIN SLIDING SCALE (NOVOLOG) 1 VIAL SQ SCH ×4 (06:29→21:55)
--- NOTE | 2016-11-13 07:21 | PN ---
Progress Note, Physician Chief Complaint: no change - Current Medication List Current Medications: Active Medications Acetaminophen (Tylenol -) 650 mg PO Q6H PRN PRN Reason: FEVER OR PAIN Albuterol/Ipratropium (Duoneb -) 1 amp NEB Q6H PRN PRN Reason: SHORTNESS OF BREATH Aspirin (Asa -) 81 mg PO DAILY [facility] Last Admin: 11/12/16 09:09 Dose: 81 mg Atorvastatin Calcium (Lipitor -) 20 mg PO HS [facility] Last Admin: 11/12/16 21:58 Dose: 20 mg Budesonide/Formoterol Fumarate (Symbicort 80/4.5mcg -) 2 puff IH BID [facility] Last Admin: 11/12/16 21:59 Dose: 2 puff Cyanocobalamin (Vitamin B12 -) 1,000 mcg PO DAILY [facility] Last Admin: 11/12/16 09:09 Dose: 1,000 mcg Cyclobenzaprine HCl (Flexeril -) 10 mg PO BID [facility] Last Admin: 11/12/16 21:59 Dose: 10 mg Diltiazem HCl (Cardizem Cd -) 120 mg PO DAILY [facility] Last Admin: 11/12/16 09:09 Dose: 120 mg Docusate Sodium (Colace -) 100 mg PO BID [facility] Last Admin: 11/12/16 21:58 Dose: 100 mg Duloxetine HCl (Cymbalta -) 30 mg PO DAILY [facility] Last Admin: 11/12/16 09:09 Dose: 30 mg Heparin Sodium (Porcine) (Heparin -) 1,000 unit IVPUSH PRN PRN PRN Reason: Heparin Heparin Sodium (Porcine) (Heparin -) 5,000 unit IVPUSH PRN PRN PRN Reason: Heparin Hydromorphone HCl (Dilaudid Injection -) 2 mg IVPB Q3H PRN PRN Reason: PAIN LEVEL 6-10 Last Admin: 11/13/16 06:28 Dose: 2 mg Hydroxyzine HCl (Atarax -) 25 mg PO TID PRN PRN Reason: FOR ITCHING Heparin Sodium/Dextrose (Heparin Infusion -) 500 mls @ 20 mls/hr IVPB TITR MICK ; 1,000 UNITS/HR PRN Reason: Protocol Last Admin: 11/12/16 18:57 Dose: 27 mls/hr Insulin Aspart (Novolog Vial Sliding Scale -) 1 vial SQ ACHS [facility] PRN Reason: Protocol Last Admin: 11/13/16 06:29 Dose: Not Given Insulin Detemir (Levemir Vial) 25 units SQ HS [facility] Last Admin: 11/12/16 22:01 Dose: 25 units Lorazepam (Ativan -) 0.5 mg PO TID PRN PRN Reason: ANXIETY Last Admin: 11/12/16 21:58 Dose: 0.5 mg Losartan Potassium (Cozaar -) 50 mg PO DAILY [facility] Last Admin: 11/12/16 09:09 Dose: 50 mg Meclizine HCl (Antivert -) 25 mg PO TID PRN PRN Reason: VERTIGO Oxycodone HCl (Roxicodone -) 10 mg PO Q6H PRN PRN Reason: PAIN Pantoprazole Sodium (Protonix -) 40 mg PO DAILY [facility] Last Admin: 11/12/16 09:09 Dose: 40 mg Polyethylene Glycol (Miralax (For Daily Use) -) 17 gm PO DAILY [facility] Last Admin: 11/12/16 09:10 Dose: 17 gm Polysaccharide Iron Complex (Niferex-150 -) 150 mg PO DAILY [facility] Last Admin: 11/12/16 09:23 Dose: 150 mg Pregabalin (Lyrica -) 150 mg PO BID [facility] Last Admin: 11/12/16 21:58 Dose: 150 mg Trazodone HCl (Desyrel -) 100 mg PO HS [facility] Last Admin: 11/12/16 21:59 Dose: 100 mg Warfarin Sodium (Coumadin -) 5 mg PO DAILY@1800 [facility] Last Admin: 11/12/16 18:04 Dose: 5 mg - Objective Vital Signs: Vital Signs Temperature 98.5 F 11/13/16 06:00 Pulse Rate 88 11/13/16 06:00 Respiratory Rate 18 11/13/16 06:00 Blood Pressure 106/61 11/13/16 06:00 O2 Sat by Pulse Oximetry (%) 94 L 11/12/16 21:00 Cardiovascular: Yes: WNL Respiratory: Yes: WNL Gastrointestinal: Yes: WNL Wound/Incision: Yes: Dressing Dry and Intact Labs: CBC, BMP 11/12/16 07:20 11/12/16 07:20 INR, PTT INR 1.04 (0.82-1.09) 11/12/16 07:20 Problem List - Problems (1) Occlusion of graft of lower extremity Code(s): T82.898A - OTH COMPLICATION OF VASCULAR PROSTH DEV/GRFT, INIT Qualifiers: Encounter type: sequela Qualified Code(s): T82.898S - Other specified complication of vascular prosthetic devices, implants and grafts, sequela (2) CAD (coronary artery disease) Code(s): I25.10 - ATHSCL HEART DISEASE OF [place] CORONARY ARTERY W/O ANG PCTRS Qualifiers: Coronary Disease-Associated Artery/Lesion type: coronary artery bypass graft Associated angina: without angina pectoris (3) Chronic kidney disease (CKD) Code(s): N18.9 - CHRONIC KIDNEY DISEASE, UNSPECIFIED (4) Diabetes mellitus Code(s): E11.9 - TYPE 2 DIABETES MELLITUS WITHOUT COMPLICATIONS (5) Hypertension Code(s): I10 - ESSENTIAL (PRIMARY) HYPERTENSION Qualifiers: Hypertension type: essential hypertension Qualified Code(s): I10 - Essential (primary) hypertension Assessment/Plan (1) Occlusion of graft of lower extremity Code(s): T82.898A - OTH COMPLICATION OF VASCULAR PROSTH DEV/GRFT, INIT Qualifiers: Encounter type: sequela Qualified Code(s): T82.898S - Other specified complication of vascular prosthetic devices, implants and grafts, sequela (2) Arterial occlusion Code(s): I74.9 - EMBOLISM AND THROMBOSIS OF UNSPECIFIED ARTERY (3) Chronic kidney disease (CKD) Code(s): N18.9 - CHRONIC KIDNEY DISEASE, UNSPECIFIED (4) Diabetes mellitus Code(s): E11.9 - TYPE 2 DIABETES MELLITUS WITHOUT COMPLICATIONS Assessment/Plan DC PLANNING APPRECIATE HEME CONSULT -> ON IV HEPARIN + COUMADIN STARTED -> F/U INR OOB TO CHAIR WITH ASSIST ADA WITH GLYCEMIC CONTROL DISCUSSED WITH PATIENT VASC SURGERY F/U APPRECIATED ANEMIA CHRONIC, MONITOR CAREFULLY WHILE ON AC [employer] FM
--- NOTE | 2016-11-13 08:31 | PN ---
Progress Note (short form) - Note Progress Note: No c/o No bleeding from wound Foot warm Labs pending - adjust coumadin dose. Problem List - Problems (1) Occlusion of graft of lower extremity Code(s): T82.898A - [facility] COMPLICATION OF VASCULAR PROSTH DEV/GRFT, INIT Qualifiers: Encounter type: sequela Qualified Code(s): T82.898S - Other specified complication of vascular prosthetic devices, implants and grafts, sequela (2) Hypercoagulable state Code(s): D68.59 - OTHER PRIMARY THROMBOPHILIA
[2016-11-13 08:36] LABS: MCH 26.1 pg (25.7-33.7); MCHC 31.7 g/dl (32.0-36.0); MEAN CELL VOLUME 82.1 fl (80-96); MEAN PLT VOLUME 8.6 fl (7.5-11.1); PLATELET COUNT 342 K/MM3 (134-434); RDW 20.6 % (11.6-15.6); WHITE BLOOD COUNT 11.6 K/mm3 (4.0-10.0)
[2016-11-13 08:39] LABS: MCHC 31.6 g/dl (32.0-36.0); MEAN CELL VOLUME 82.2 fl (80-96); MEAN PLT VOLUME 8.8 fl (7.5-11.1); PLATELET COUNT 332 K/MM3 (134-434); RDW 20.3 % (11.6-15.6); WHITE BLOOD COUNT 11.5 K/mm3 (4.0-10.0)
[2016-11-13 09:01] LABS: INR 1.07 (0.82-1.09); PROTHROMBIN TIME (PATIENT) 11.8 SEC (9.98-11.88)
[2016-11-13 09:16] LABS: CALCIUM 8.2 mg/dL (8.5-10.1)
[2016-11-13 09:21] LABS: BILIRUBIN,TOTAL 0.3 mg/dL (0.2-1.0); CREATININE 1.3 mg/dL (0.55-1.02); TOT PROT 5.6 g/dl (6.4-8.2)
[2016-11-13] MEDS: PREGABALIN 75 MG CAPSULE PO SCH ×2 (10:07→21:28)
[2016-11-13] MEDS: DULoxetine HCL 30 MG CAPSULE.DR (FP) PO SCH (10:07)
[2016-11-13] MEDS: CYCLOBENZAPRINE HCL 10 MG TABLET (FP) PO SCH ×2 (10:07→21:27)
[2016-11-13] MEDS: PANTOPRAZOLE 40 MG TABLET (FP) PO SCH (10:07)
[2016-11-13] MEDS: LOSARTAN POTASSIUM 50 MG TABLET (FP) PO SCH (10:08)
[2016-11-13] MEDS: CYANOCOBALAMIN 1,000 MCG TABLET (FP) PO SCH (10:08)
[2016-11-13] MEDS: DOCUSATE SODIUM 100 MG CAPSULE (FP) PO SCH ×2 (10:08→21:27)
[2016-11-13 10:11] LABS: HIGH DOSE HEPARIN SRA 11 % (0-20); LOW DOSE HEPARIN SRA 15 % (0-20)
[2016-11-13] MEDS: BUDESONIDE/FORMETEROL FUMARATE 80/4.5 mcg INHALER IH SCH ×2 (12:06→23:00)
[2016-11-13] MEDS: POLYETHYLENE GLYCOL 3350 119 GM BTL PO SCH (12:06)
[2016-11-13] MEDS: ASPIRIN 81 MG CHEWABLE TABLETS PO SCH (12:06)
[2016-11-13] MEDS: LORazepam 0.5 MG TABLET PO PRN ×2 (12:08→21:29)
[2016-11-13] MEDS ORDERED: PT OWN MED DRAWER 7, Y5N ONE (14:39)
[2016-11-13] MEDS: IRON POLYSACCHARIDES 150 MG CAPSULE PO SCH (14:59)
[2016-11-13] MEDS: WARFARIN NA 5 MG TABLET (UD) PO SCH (17:50)
[2016-11-13 18:01] LABS: ANISOCYTOSIS 1+; HYPOCHROMIA 1+; PLATELET ESTIMATE ADEQUATE (NORMAL)
[2016-11-13] MEDS: HEPARIN INFUSION - 500 ML IVPB SCH (19:05)
--- NOTE | 2016-11-13 20:47 | PN ---
Progress Note (short form) - Note Progress Note: PAtient seen and examined s/p thrombectomy of femoral bypass graft Last Vital Signs Temp Pulse Resp BP Pulse Ox 97.4 F L 19 L 92 H 134/71 100 11/10/16 15:14 11/10/16 15:14 11/10/16 15:14 11/10/16 15:14 11/10/16 08:39 HEENT: GOLDIE, EOM Intact Oropharynx: No thrush, No mucositis Cor: RSR, No murmurs, No gallops Lungs: Clear to P&A Abd: Soft, Normal bowel sounds, No organomegaly LLE---mild oozing fro LLE wound Abnormal Lab Results 11/09/16 11/10/16 11/10/16 07:50 06:00 06:00 WBC 10.6 H RBC 3.14 L Hgb 8.3 L Hct 25.5 L RDW 20.6 H PTT (Actin FS) 68.8 H Sodium Chloride Creatinine Calcium Iron 12 L TIBC 204 L Iron Saturation 6 L 11/10/16 06:00 WBC RBC Hgb Hct RDW PTT (Actin FS) Sodium 146 H Chloride 110 H Creatinine 1.1 H Calcium 7.8 L Iron TIBC Iron Saturation Current Medications Acetaminophen (Tylenol -) 650 mg PO Q6H PRN PRN Reason: FEVER OR PAIN Albuterol/Ipratropium (Duoneb -) 1 amp NEB Q6H PRN PRN Reason: SHORTNESS OF BREATH Aspirin (Asa -) 81 mg PO DAILY [facility] Last Admin: 11/10/16 09:00 Dose: 81 mg Atorvastatin Calcium (Lipitor -) 20 mg PO HS [facility] Last Admin: 11/09/16 21:46 Dose: 20 mg Budesonide/Formoterol Fumarate (Symbicort 80/4.5mcg -) 2 puff IH BID [facility] Last Admin: 11/10/16 11:45 Dose: 2 puff Clopidogrel Bisulfate (Plavix -) 75 mg PO DAILY [facility] Last Admin: 11/10/16 09:03 Dose: 75 mg Cyclobenzaprine HCl (Flexeril -) 10 mg PO BID [facility] Last Admin: 11/10/16 09:01 Dose: 10 mg Diltiazem HCl (Cardizem Cd -) 120 mg PO DAILY [facility] Last Admin: 11/10/16 09:04 Dose: 120 mg Docusate Sodium (Colace -) 100 mg PO BID [facility] Last Admin: 11/10/16 09:03 Dose: 100 mg Duloxetine HCl (Cymbalta -) 30 mg PO DAILY [facility] Last Admin: 11/10/16 09:02 Dose: 30 mg Heparin Sodium (Porcine) (Heparin -) 1,000 unit IVPUSH PRN PRN PRN Reason: Heparin Heparin Sodium (Porcine) (Heparin -) 5,000 unit IVPUSH PRN PRN PRN Reason: Heparin Hydromorphone HCl (Dilaudid Injection -) 2 mg IVPB Q3H PRN PRN Reason: PAIN LEVEL 6-10 Last Admin: 11/10/16 16:02 Dose: 2 mg Hydroxyzine HCl (Atarax -) 25 mg PO TID PRN PRN Reason: FOR ITCHING Heparin Sodium/Dextrose (Heparin Infusion -) 500 mls @ 20 mls/hr IVPB TITR MICK ; 1,000 UNITS/HR PRN Reason: Protocol Last Titration: 11/10/16 08:45 Dose: 1,450 units/hr Insulin Aspart (Novolog Vial Sliding Scale -) 1 vial SQ ACHS [facility] PRN Reason: Protocol Last Admin: 11/10/16 17:55 Dose: Not Given Insulin Detemir (Levemir Vial) 25 units SQ HS [facility] Last Admin: 11/09/16 21:46 Dose: 25 units Lorazepam (Ativan -) 0.5 mg PO TID PRN PRN Reason: ANXIETY Last Admin: 11/10/16 11:44 Dose: 0.5 mg Losartan Potassium (Cozaar -) 50 mg PO DAILY [facility] Last Admin: 11/10/16 09:01 Dose: 50 mg Meclizine HCl (Antivert -) 25 mg PO TID PRN PRN Reason: VERTIGO Oxycodone HCl (Roxicodone -) 10 mg PO Q6H PRN PRN Reason: PAIN Pantoprazole Sodium (Protonix -) 40 mg PO DAILY [facility] Last Admin: 11/10/16 09:03 Dose: 40 mg Polyethylene Glycol (Miralax (For Daily Use) -) 17 gm PO DAILY [facility] Last Admin: 11/10/16 09:04 Dose: 17 gm Pregabalin (Lyrica -) 150 mg PO BID [facility] Last Admin: 11/10/16 09:04 Dose: 150 mg Trazodone HCl (Desyrel -) 100 mg PO HS [facility] Last Admin: 11/09/16 21:45 Dose: 100 mg A/P 41 y/o patient with reurrent thrombosis of bypass graft. s/p thrombectomy thrombophilia w/u -- ACL/anti b2 glycoprotein abs negative. Prothrombin gene [id number] neg. Factor V leiden. Protein C --nl Protein S free --mildly low --will need repeat testing ATIII could not be tested as patient is on heparin on heparin/asa/plavix will bridge heparin to coumadin. stop plavix. continue asa 81mg daily anemia--low iron saturation --? menorrhagia- on niferex 150mg daily low [id number] B12 1000mcg daily need close outpatient event staff/gi f/u
[2016-11-13] MEDS: traZODone HCL 50 MG TABLET (FP) PO SCH (21:27)
[2016-11-13] MEDS: ATORVASTATIN CA 20 MG TABLET (FP) PO SCH (21:28)
[2016-11-13] MEDS: INSULIN DETEMIR 100 UNITS/ML MDV SQ SCH (21:56)
[2016-11-14] MEDS: HYDROmorphone HCL CARPU-JECT 2 MG/1 ML DISP.SYRIN IVPB PRN ×5 (01:40→17:56)
[2016-11-14] MEDS: INSULIN SLIDING SCALE (NOVOLOG) 1 VIAL SQ SCH ×4 (06:27→22:24)
[2016-11-14 07:56] LABS: BASOPHIL 0.3 % (0-2.0); EOSINOPHIL 11.2 % (0-4.5); MCH 25.8 pg (25.7-33.7); MCHC 31.6 g/dl (32.0-36.0); MEAN CELL VOLUME 81.7 fl (80-96); MEAN PLT VOLUME 8.4 fl (7.5-11.1); NEUTROPHILS 57.1 % (42.8-82.8); PLATELET COUNT 408 K/MM3 (134-434); RDW 20.8 % (11.6-15.6); WHITE BLOOD COUNT 14.3 K/mm3 (4.0-10.0)
[2016-11-14 08:10] LABS: INR 1.21 (0.82-1.09); PROTHROMBIN TIME (PATIENT) 13.4 SEC (9.98-11.88)
[2016-11-14 08:30] LABS: ALBUMIN 2.1 g/dl (3.4-5.0); BILIRUBIN,TOTAL 0.2 mg/dL (0.2-1.0); CALCIUM 8.2 mg/dL (8.5-10.1); CREATININE 1.3 mg/dL (0.55-1.02)
[2016-11-14] MEDS ORDERED: PT OWN MED DRAWER 7, Y5N ONE (09:13)
[2016-11-14] MEDS: DULoxetine HCL 30 MG CAPSULE.DR (FP) PO SCH (09:19)
[2016-11-14] MEDS: PANTOPRAZOLE 40 MG TABLET (FP) PO SCH (09:19)
[2016-11-14] MEDS: LOSARTAN POTASSIUM 50 MG TABLET (FP) PO SCH (09:19)
[2016-11-14] MEDS: CYCLOBENZAPRINE HCL 10 MG TABLET (FP) PO SCH ×2 (09:19→22:23)
[2016-11-14] MEDS: CYANOCOBALAMIN 1,000 MCG TABLET (FP) PO SCH (09:19)
[2016-11-14] MEDS: ASPIRIN 81 MG CHEWABLE TABLETS PO SCH (09:19)
[2016-11-14] MEDS: PREGABALIN 75 MG CAPSULE PO SCH ×2 (09:19→22:22)
[2016-11-14] MEDS: DOCUSATE SODIUM 100 MG CAPSULE (FP) PO SCH ×2 (09:19→22:20)
[2016-11-14] MEDS: IRON POLYSACCHARIDES 150 MG CAPSULE PO SCH (09:20)
[2016-11-14] MEDS: POLYETHYLENE GLYCOL 3350 119 GM BTL PO SCH (09:21)
[2016-11-14] MEDS: BUDESONIDE/FORMETEROL FUMARATE 80/4.5 mcg INHALER IH SCH ×2 (09:25→22:24)
[2016-11-14] MEDS: LORazepam 0.5 MG TABLET PO PRN ×2 (12:04→22:20)
--- NOTE | 2016-11-14 16:26 | PN ---
Progress Note, Physician Chief Complaint: AWAKE ALERT FEELING BETTER C/O VAGINAL ITCH - Current Medication List Current Medications: Active Medications Acetaminophen (Tylenol -) 650 mg PO Q6H PRN PRN Reason: FEVER OR PAIN Albuterol/Ipratropium (Duoneb -) 1 amp NEB Q6H PRN PRN Reason: SHORTNESS OF BREATH Aspirin (Asa -) 81 mg PO DAILY [facility] Last Admin: 11/14/16 09:19 Dose: 81 mg Atorvastatin Calcium (Lipitor -) 20 mg PO HS [facility] Last Admin: 11/13/16 21:28 Dose: 20 mg Budesonide/Formoterol Fumarate (Symbicort 80/4.5mcg -) 2 puff IH BID [facility] Last Admin: 11/14/16 09:25 Dose: 2 puff Cyanocobalamin (Vitamin B12 -) 1,000 mcg PO DAILY [facility] Last Admin: 11/14/16 09:19 Dose: 1,000 mcg Cyclobenzaprine HCl (Flexeril -) 10 mg PO BID [facility] Last Admin: 11/14/16 09:19 Dose: 10 mg Diltiazem HCl (Cardizem Cd -) 120 mg PO DAILY [facility] Last Admin: 11/14/16 09:19 Dose: 120 mg Docusate Sodium (Colace -) 100 mg PO BID [facility] Last Admin: 11/14/16 09:19 Dose: 100 mg Duloxetine HCl (Cymbalta -) 30 mg PO DAILY [facility] Last Admin: 11/14/16 09:19 Dose: 30 mg Fluconazole (Diflucan -) 100 mg PO DAILY [facility] Heparin Sodium (Porcine) (Heparin -) 1,000 unit IVPUSH PRN PRN PRN Reason: Heparin Heparin Sodium (Porcine) (Heparin -) 5,000 unit IVPUSH PRN PRN PRN Reason: Heparin Hydromorphone HCl (Dilaudid Injection -) 2 mg IVPB Q3H PRN PRN Reason: PAIN LEVEL 6-10 Last Admin: 11/14/16 13:31 Dose: 2 mg Hydroxyzine HCl (Atarax -) 25 mg PO TID PRN PRN Reason: FOR ITCHING Heparin Sodium/Dextrose (Heparin Infusion -) 500 mls @ 20 mls/hr IVPB TITR MICK ; 1,000 UNITS/HR PRN Reason: Protocol Last Titration: 11/14/16 09:24 Dose: 1,350 units/hr Insulin Aspart (Novolog Vial Sliding Scale -) 1 vial SQ [facility] PRN Reason: Protocol Last Admin: 11/14/16 11:58 Dose: Not Given Insulin Detemir (Levemir Vial) 25 units SQ [facility] Last Admin: 11/13/16 21:56 Dose: 25 units Lorazepam (Ativan -) 0.5 mg PO TID PRN PRN Reason: ANXIETY Last Admin: 11/14/16 12:04 Dose: 0.5 mg Losartan Potassium (Cozaar -) 50 mg PO DAILY [facility] Last Admin: 11/14/16 09:19 Dose: 50 mg Meclizine HCl (Antivert -) 25 mg PO TID PRN PRN Reason: VERTIGO Miconazole Nitrate (Monistat-7 Vaginal Cream -) 1 applic VG [facility] Stop: 11/20/16 22:01 Oxycodone HCl (Roxicodone -) 10 mg PO Q6H PRN PRN Reason: PAIN Pantoprazole Sodium (Protonix -) 40 mg PO DAILY [facility] Last Admin: 11/14/16 09:19 Dose: 40 mg Polyethylene Glycol (Miralax (For Daily Use) -) 17 gm PO DAILY [facility] Last Admin: 11/14/16 09:21 Dose: 17 gm Polysaccharide Iron Complex (Niferex-150 -) 150 mg PO DAILY [facility] Last Admin: 11/14/16 09:20 Dose: 150 mg Pregabalin (Lyrica -) 150 mg PO BID [facility] Last Admin: 11/14/16 09:19 Dose: 150 mg Trazodone HCl (Desyrel -) 100 mg PO [facility] Last Admin: 11/13/16 21:27 Dose: 100 mg Warfarin Sodium (Coumadin -) 5 mg PO DAILY@1800 [facility] Last Admin: 11/13/16 17:50 Dose: 5 mg - Objective Vital Signs: Vital Signs Temperature 98.4 F 11/14/16 14:21 Pulse Rate 97 H 11/14/16 14:21 Respiratory Rate 16 11/14/16 14:21 Blood Pressure 116/82 11/14/16 14:21 O2 Sat by Pulse Oximetry (%) 98 11/13/16 21:00 Constitutional: Yes: No Distress Eyes: Yes: WNL HENT: Yes: WNL Neck: Yes: WNL Cardiovascular: Yes: WNL Respiratory: Yes: WNL Gastrointestinal: Yes: WNL Genitourinary: Yes: WNL Musculoskeletal: Yes: Muscle Pain, Muscle Weakness Extremities: Yes: Other Edema: No Peripheral Pulses WNL: Yes Integumentary: Yes: WNL Wound/Incision: Yes: Clean/Dry Neurological: Yes: WNL ...Motor Strength: WNL Psychiatric: Yes: WNL Labs: CBC, BMP 11/14/16 06:30 11/14/16 06:30 INR, PTT INR 1.21 (0.82-1.09) H 11/14/16 06:30 Problem List - Problems (1) Occlusion of graft of lower extremity Code(s): T82.898A - OT COMPLICATION OF VASCULAR PROSTH DEV/GRFT, INIT Qualifiers: Encounter type: sequela Qualified Code(s): T82.898S - Other specified complication of vascular prosthetic devices, implants and grafts, sequela (2) Arterial occlusion Code(s): I74.9 - EMBOLISM AND THROMBOSIS OF UNSPECIFIED ARTERY (3) Chronic kidney disease (CKD) Code(s): N18.9 - CHRONIC KIDNEY DISEASE, UNSPECIFIED (4) Diabetes mellitus Code(s): E11.9 - TYPE 2 DIABETES MELLITUS WITHOUT COMPLICATIONS Assessment/Plan DC PLANNING WHEN CLEARED BY [facility] SX OOB TO CHAIR WITH ASSIST ADA WITH GLYCEMIC CONTROL DISCUSSED WITH PATIENT [facility] SURGERY F/U APPRECIATED OPERATIVE NOTES AND CHART REVIEWED ANEMIA CHRONIC, MONITOR CAREFULLY WHILE ON AC WEEKLY CBC AT MY OFFICE OUTPATIENT DIFLUCAN PO
[2016-11-14] MEDS: WARFARIN NA 5 MG TABLET (UD) PO SCH (17:56)
[2016-11-14] MEDS: FLUCONAZOLE 100 MG TABLET (UD) PO SCH (17:56)
[2016-11-14] MEDS: traZODone HCL 50 MG TABLET (FP) PO SCH (22:22)
[2016-11-14] MEDS: ATORVASTATIN CA 20 MG TABLET (FP) PO SCH (22:23)
[2016-11-14] MEDS: MICONAZOLE NITRATE 2% VAGINAL CREAM 45 GM TUBE VG SCH (22:23)
[2016-11-14] MEDS: INSULIN DETEMIR 100 UNITS/ML MDV SQ SCH (22:23)
[2016-11-15] MEDS: HEPARIN INFUSION - 500 ML IVPB SCH ×2 (04:00→11:49)
[2016-11-15] MEDS: HYDROmorphone HCL CARPU-JECT 2 MG/1 ML DISP.SYRIN IVPB PRN ×5 (04:01→21:49)
[2016-11-15] MEDS: INSULIN SLIDING SCALE (NOVOLOG) 1 VIAL SQ SCH ×4 (06:15→23:16)
[2016-11-15 08:28] LABS: INR 1.36 (0.82-1.09)
--- NOTE | 2016-11-15 09:30 | PN ---
Progress Note (short form) - Note Progress Note: POD#12 Pt having some pain in her upper thigh and states that it has been draining from one area, light pink colored fluid. OOB and ambulating. Tolerating a diet and having bowel movements. Vital Signs Period Temp Pulse Resp BP Sys/Green Pulse Ox Last 24 Hr 98.1 F-986 F 86-97 16-20 106-118/59-82 PE: ABD: soft, non-distended, non-tender. Inc c/d/i with manuel. No drainage or erythema noted. LLE: warm foot with DP pulse. Incision line intact with manuel. In upper aspect there is one small area draining light brown to pink fluid. No erythema/ tenderness to palpation. 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 No erythema noted. Continue regular diet as tolerated Transition IV heparin to coumadin(5mg given last pm) Left lower foot with pulse
[2016-11-15] MEDS ORDERED: PT OWN MED DRAWER 7, Y5N ONE ×2 (09:40→21:58)
[2016-11-15] MEDS: PANTOPRAZOLE 40 MG TABLET (FP) PO SCH (09:41)
[2016-11-15] MEDS: ASPIRIN 81 MG CHEWABLE TABLETS PO SCH (09:41)
[2016-11-15] MEDS: CYANOCOBALAMIN 1,000 MCG TABLET (FP) PO SCH (09:41)
[2016-11-15] MEDS: DOCUSATE SODIUM 100 MG CAPSULE (FP) PO SCH ×2 (09:41→21:51)
[2016-11-15] MEDS: LOSARTAN POTASSIUM 50 MG TABLET (FP) PO SCH (09:41)
[2016-11-15] MEDS: DULoxetine HCL 30 MG CAPSULE.DR (FP) PO SCH (09:41)
[2016-11-15] MEDS: POLYETHYLENE GLYCOL 3350 119 GM BTL PO SCH (09:42)
[2016-11-15] MEDS: PREGABALIN 75 MG CAPSULE PO SCH ×2 (09:42→21:59)
[2016-11-15] MEDS: IRON POLYSACCHARIDES 150 MG CAPSULE PO SCH (09:42)
[2016-11-15] MEDS: CYCLOBENZAPRINE HCL 10 MG TABLET (FP) PO SCH ×2 (09:42→21:51)
[2016-11-15] MEDS: FLUCONAZOLE 100 MG TABLET (UD) PO SCH (09:42)
[2016-11-15] MEDS: BUDESONIDE/FORMETEROL FUMARATE 80/4.5 mcg INHALER IH SCH ×2 (09:43→22:46)
--- NOTE | 2016-11-15 11:45 | PN ---
Progress Note, Physician Chief Complaint: AWAKE ALERT NAD - Current Medication List Current Medications: Active Medications Acetaminophen (Tylenol -) 650 mg PO Q6H PRN PRN Reason: FEVER OR PAIN Albuterol/Ipratropium (Duoneb -) 1 amp NEB Q6H PRN PRN Reason: SHORTNESS OF BREATH Aspirin (Asa -) 81 mg PO DAILY [facility] Last Admin: 11/15/16 09:41 Dose: 81 mg Atorvastatin Calcium (Lipitor -) 20 mg PO HS [facility] Last Admin: 11/14/16 22:23 Dose: 20 mg Budesonide/Formoterol Fumarate (Symbicort 80/4.5mcg -) 2 puff IH BID [facility] Last Admin: 11/15/16 09:43 Dose: 2 puff Cyanocobalamin (Vitamin B12 -) 1,000 mcg PO DAILY [facility] Last Admin: 11/15/16 09:41 Dose: 1,000 mcg Cyclobenzaprine HCl (Flexeril -) 10 mg PO BID [facility] Last Admin: 11/15/16 09:42 Dose: 10 mg Diltiazem HCl (Cardizem Cd -) 120 mg PO DAILY [facility] Last Admin: 11/15/16 09:41 Dose: 120 mg Docusate Sodium (Colace -) 100 mg PO BID [facility] Last Admin: 11/15/16 09:41 Dose: 100 mg Duloxetine HCl (Cymbalta -) 30 mg PO DAILY [facility] Last Admin: 11/15/16 09:41 Dose: 30 mg Fluconazole (Diflucan -) 100 mg PO DAILY [facility] Last Admin: 11/15/16 09:42 Dose: 100 mg Heparin Sodium (Porcine) (Heparin -) 1,000 unit IVPUSH PRN PRN PRN Reason: Heparin Heparin Sodium (Porcine) (Heparin -) 5,000 unit IVPUSH PRN PRN PRN Reason: Heparin Hydromorphone HCl (Dilaudid Injection -) 2 mg IVPB Q3H PRN PRN Reason: PAIN LEVEL 6-10 Last Admin: 11/15/16 08:28 Dose: 2 mg Hydroxyzine HCl (Atarax -) 25 mg PO TID PRN PRN Reason: FOR ITCHING Heparin Sodium/Dextrose (Heparin Infusion -) 500 mls @ 20 mls/hr IVPB TITR MICK ; 1,000 UNITS/HR PRN Reason: Protocol Last Admin: 11/15/16 04:00 Dose: 27 mls/hr Insulin Aspart (Novolog Vial Sliding Scale -) 1 vial SQ ACHS [facility] PRN Reason: Protocol Last Admin: 11/15/16 06:15 Dose: Not Given Insulin Detemir (Levemir Vial) [address] [facility] Last Admin: 11/14/16 22:23 Dose: 25 units Lorazepam (Ativan -) 0.5 mg PO TID PRN PRN Reason: ANXIETY Last Admin: 11/14/16 22:20 Dose: 0.5 mg Losartan Potassium (Cozaar -) 50 mg PO DAILY [facility] Last Admin: 11/15/16 09:41 Dose: 50 mg Meclizine HCl (Antivert -) 25 mg PO TID PRN PRN Reason: VERTIGO Miconazole Nitrate (Monistat-7 Vaginal Cream -) [address] [facility] Stop: 11/20/16 22:01 Last Admin: 11/14/16 22:23 Dose: 1 applic Oxycodone HCl (Roxicodone -) 10 mg PO Q6H PRN PRN Reason: PAIN Pantoprazole Sodium (Protonix -) 40 mg PO DAILY [facility] Last Admin: 11/15/16 09:41 Dose: 40 mg Polyethylene Glycol (Miralax (For Daily Use) -) 17 gm PO DAILY [facility] Last Admin: 11/15/16 09:42 Dose: 17 gm Polysaccharide Iron Complex (Niferex-150 -) 150 mg PO DAILY [facility] Last Admin: 11/15/16 09:42 Dose: 150 mg Pregabalin (Lyrica -) 150 mg PO BID [facility] Last Admin: 11/15/16 09:42 Dose: 150 mg Trazodone HCl (Desyrel -) [address] [facility] Last Admin: 11/14/16 22:22 Dose: 100 mg Warfarin Sodium (Coumadin -) 5 mg PO DAILY@1800 [facility] Last Admin: 11/14/16 17:56 Dose: 5 mg - Objective Vital Signs: Vital Signs Temperature 98 F 11/15/16 10:00 Pulse Rate 84 11/15/16 10:00 Respiratory Rate 18 11/15/16 10:00 Blood Pressure 108/64 11/15/16 10:00 O2 Sat by Pulse Oximetry (%) 98 11/13/16 21:00 Constitutional: Yes: No Distress Eyes: Yes: WNL HENT: Yes: WNL Neck: Yes: WNL Cardiovascular: Yes: WNL Respiratory: Yes: WNL Gastrointestinal: Yes: WNL Genitourinary: Yes: WNL Musculoskeletal: Yes: Muscle Pain Extremities: Yes: Other Edema: No Peripheral Pulses WNL: Yes Integumentary: Yes: Other Wound/Incision: Yes: [place] Intact, Draining Neurological: Yes: Other ...Motor Strength: LLE Psychiatric: Yes: WNL Labs: CBC, BMP 11/14/16 06:30 11/14/16 06:30 INR, PTT INR 1.36 (0.82-1.09) H 11/15/16 06:10 Problem List - Problems (1) Occlusion of graft of lower extremity Code(s): T82.898A - OT COMPLICATION OF VASCULAR PROSTH DEV/GRFT, INIT Qualifiers: Encounter type: sequela Qualified Code(s): T82.898S - Other specified complication of vascular prosthetic devices, implants and grafts, sequela (2) Arterial occlusion Code(s): I74.9 - EMBOLISM AND THROMBOSIS OF UNSPECIFIED ARTERY (3) Chronic kidney disease (CKD) Code(s): N18.9 - CHRONIC KIDNEY DISEASE, UNSPECIFIED (4) Diabetes mellitus Code(s): E11.9 - TYPE 2 DIABETES MELLITUS WITHOUT COMPLICATIONS Assessment/Plan DC PLANNING WHEN CLEARED BY [facility] SX OOB TO CHAIR WITH ASSIST ADA WITH GLYCEMIC CONTROL DISCUSSED WITH PATIENT [facility] SURGERY F/U APPRECIATED OPERATIVE NOTES AND CHART REVIEWED ANEMIA CHRONIC, MONITOR CAREFULLY WHILE ON AC WEEKLY CBC AT MY OFFICE OUTPATIENT DIFLUCAN PO COUMADIN 5MG, HEPARIN IV UNTIL INR BTWN 2-3
[2016-11-15] MEDS ORDERED: INSULIN (NOVOLOG) ASPART 100 UNITS/ML 10ML VIAL ONE (17:56)
[2016-11-15] MEDS: WARFARIN NA 5 MG TABLET (UD) PO SCH (18:00)
[2016-11-15] MEDS: ATORVASTATIN CA 20 MG TABLET (FP) PO SCH (21:51)
[2016-11-15] MEDS: traZODone HCL 50 MG TABLET (FP) PO SCH (21:52)
[2016-11-15] MEDS: LORazepam 0.5 MG TABLET PO PRN (22:41)
[2016-11-15] MEDS: MICONAZOLE NITRATE 2% VAGINAL CREAM 45 GM TUBE VG SCH (22:47)
[2016-11-15] MEDS: INSULIN DETEMIR 100 UNITS/ML MDV SQ SCH (23:16)
[2016-11-16] MEDS: HYDROmorphone HCL CARPU-JECT 2 MG/1 ML DISP.SYRIN IVPB PRN ×6 (01:35→23:55)
[2016-11-16] MEDS: HEPARIN INFUSION - 500 ML IVPB SCH ×3 (01:48→23:28)
[2016-11-16] MEDS ORDERED: ACETAMINOPHEN 325 MG TABLET (FP) ONE (06:29)
[2016-11-16] MEDS ORDERED: PT OWN MED DRAWER 7, Y5N ONE ×4 (06:29→18:23)
[2016-11-16] MEDS: INSULIN SLIDING SCALE (NOVOLOG) 1 VIAL SQ SCH ×4 (06:47→22:23)
--- NOTE | 2016-11-16 08:20 | PN ---
Addendum entered and electronically signed by Laney Parada PA 11/16/16 14:38 : Leg incision discussed with Dr. Neil, IV abx, Cefazolin ordered Original Note: Progress Note (short form) - Note Progress Note: Vascular Surgery- Dr. Neil Patient seen and examined. Patient states she is doing well, says her thigh incision is continuing to drain, draining more when she is OOB/ambulating. She is tolerating her diet, denies fever/chills/nausea/vomiting. Last Vital Signs Temp Pulse Resp BP Pulse Ox 97.8 F 82 18 132/72 98 11/16/16 06:36 11/16/16 06:36 11/16/16 06:36 11/16/16 06:36 11/15/16 21:00 Labs/INR pending Exam: Gen: NAD Abd: soft, nondistended, nontender, incision clean and dry with manuel intact LE: left foot warm with DP pulse, incision with manuel intact, some serosanguineous drainage noted at the superior aspect, slight erythema and tenderness medial to incision, dressing replaced on rounds Problem List - Problems (1) Arterial occlusion Assessment/Plan: POD#13 s/p aortofemoral bypass, POD#10 open femoral thrombectomy, thrombosed bypass graft Tolerating diet, ambulating Bridging to coumadin, follow-up INR Monitor superior aspect left leg incision, drainage Code(s): I74.9 - EMBOLISM AND THROMBOSIS OF UNSPECIFIED ARTERY
[2016-11-16 08:23] LABS: INR 1.67 (0.82-1.09); PROTHROMBIN TIME (PATIENT) 18.6 SEC (9.98-11.88)
--- NOTE | 2016-11-16 09:31 | PN ---
Progress Note, Physician Chief Complaint: awake alert c/o soarness to left lower extremity wound site with discharge - Current Medication List Current Medications: Active Medications Acetaminophen (Tylenol -) 650 mg PO Q6H PRN PRN Reason: FEVER OR PAIN Albuterol/Ipratropium (Duoneb -) 1 amp NEB Q6H PRN PRN Reason: SHORTNESS OF BREATH Aspirin (Asa -) 81 mg PO DAILY [facility] Last Admin: 11/15/16 09:41 Dose: 81 mg Atorvastatin Calcium (Lipitor -) 20 mg PO HS [facility] Last Admin: 11/15/16 21:51 Dose: 20 mg Budesonide/Formoterol Fumarate (Symbicort 80/4.5mcg -) 2 puff IH BID [facility] Last Admin: 11/15/16 22:46 Dose: 2 puff Cyanocobalamin (Vitamin B12 -) 1,000 mcg PO DAILY [facility] Last Admin: 11/15/16 09:41 Dose: 1,000 mcg Cyclobenzaprine HCl (Flexeril -) 10 mg PO BID [facility] Last Admin: 11/15/16 21:51 Dose: 10 mg Diltiazem HCl (Cardizem Cd -) 120 mg PO DAILY [facility] Last Admin: 11/15/16 09:41 Dose: 120 mg Docusate Sodium (Colace -) 100 mg PO BID [facility] Last Admin: 11/15/16 21:51 Dose: 100 mg Duloxetine HCl (Cymbalta -) 30 mg PO DAILY [facility] Last Admin: 11/15/16 09:41 Dose: 30 mg Fluconazole (Diflucan -) 100 mg PO DAILY [facility] Last Admin: 11/15/16 09:42 Dose: 100 mg Hydromorphone HCl (Dilaudid Injection -) 2 mg IVPB Q3H PRN PRN Reason: PAIN LEVEL 6-10 Last Admin: 11/16/16 08:12 Dose: 2 mg Hydroxyzine HCl (Atarax -) 25 mg PO TID PRN PRN Reason: FOR ITCHING Heparin Sodium/Dextrose (Heparin Infusion -) 500 mls @ 20 mls/hr IVPB TITR MICK ; 1,000 UNITS/HR PRN Reason: Protocol Last Admin: 11/16/16 01:48 Dose: 27 mls/hr Insulin Aspart (Novolog Vial Sliding Scale -) 1 vial SQ ACHS [facility] PRN Reason: Protocol Last Admin: 11/16/16 06:47 Dose: Not Given Insulin Detemir (Levemir Vial) 25 units SQ [facility] Last Admin: 11/15/16 23:16 Dose: 25 units Lorazepam (Ativan -) 0.5 mg PO TID PRN PRN Reason: ANXIETY Last Admin: 11/15/16 22:41 Dose: 0.5 mg Losartan Potassium (Cozaar -) 50 mg PO DAILY [facility] Last Admin: 11/15/16 09:41 Dose: 50 mg Meclizine HCl (Antivert -) 25 mg PO TID PRN PRN Reason: VERTIGO Miconazole Nitrate (Monistat-7 Vaginal Cream -) 1 applic VG [facility] Stop: 11/20/16 22:01 Last Admin: 11/15/16 22:47 Dose: 1 applic Oxycodone HCl (Roxicodone -) 10 mg PO Q6H PRN PRN Reason: PAIN Pantoprazole Sodium (Protonix -) 40 mg PO DAILY [facility] Last Admin: 11/15/16 09:41 Dose: 40 mg Polyethylene Glycol (Miralax (For Daily Use) -) 17 gm PO DAILY [facility] Last Admin: 11/15/16 09:42 Dose: 17 gm Polysaccharide Iron Complex (Niferex-150 -) 150 mg PO DAILY [facility] Last Admin: 11/15/16 09:42 Dose: 150 mg Pregabalin (Lyrica -) 150 mg PO BID [facility] Last Admin: 11/15/16 21:59 Dose: 150 mg Trazodone HCl (Desyrel -) 100 mg PO [facility] Last Admin: 11/15/16 21:52 Dose: 100 mg Warfarin Sodium (Coumadin -) 5 mg PO DAILY@1800 [facility] Last Admin: 11/15/16 18:00 Dose: 5 mg - Objective Vital Signs: Vital Signs Temperature 97.8 F 11/16/16 06:36 Pulse Rate 82 11/16/16 06:36 Respiratory Rate 18 11/16/16 06:36 Blood Pressure 132/72 11/16/16 06:36 O2 Sat by Pulse Oximetry (%) 98 11/15/16 21:00 Constitutional: Yes: Mild Distress Eyes: Yes: WNL HENT: Yes: WNL Neck: Yes: WNL Cardiovascular: Yes: WNL Respiratory: Yes: WNL Gastrointestinal: Yes: WNL Genitourinary: Yes: WNL Musculoskeletal: Yes: Muscle Pain, Muscle Weakness Extremities: Yes: Erythema, Other Edema: No Peripheral Pulses WNL: Yes Integumentary: Yes: Erythema Wound/Incision: Yes: [place] Intact, Draining, Reddened Neurological: Yes: Pre-Existing Deficit ...Motor Strength: LLE Psychiatric: Yes: WNL Labs: CBC, BMP 11/14/16 06:30 11/14/16 06:30 INR, PTT INR 1.67 (0.82-1.09) H 11/16/16 07:28 Problem List - Problems (1) Occlusion of graft of lower extremity Code(s): T82.898A - OTH COMPLICATION OF VASCULAR PROSTH DEV/GRFT, INIT Qualifiers: Encounter type: sequela Qualified Code(s): T82.898S - Other specified complication of vascular prosthetic devices, implants and grafts, sequela (2) Arterial occlusion Code(s): I74.9 - EMBOLISM AND THROMBOSIS OF UNSPECIFIED ARTERY (3) Chronic kidney disease (CKD) Code(s): N18.9 - CHRONIC KIDNEY DISEASE, UNSPECIFIED (4) Diabetes mellitus Code(s): E11.9 - TYPE 2 DIABETES MELLITUS WITHOUT COMPLICATIONS Assessment/Plan DC PLANNING WHEN CLEARED BY [facility] SX OOB TO CHAIR WITH ASSIST ADA WITH GLYCEMIC CONTROL DISCUSSED WITH PATIENT [facility] SURGERY F/U APPRECIATED OPERATIVE NOTES AND CHART REVIEWED ANEMIA CHRONIC, MONITOR CAREFULLY WHILE ON AC WEEKLY CBC AT MY OFFICE OUTPATIENT DIFLUCAN PO COUMADIN 5MG, HEPARIN IV UNTIL INR BTWN 2-3 INCENTIVE SPIROMETRY WOUND CARE
[2016-11-16] MEDS: CYCLOBENZAPRINE HCL 10 MG TABLET (FP) PO SCH ×2 (10:32→22:21)
[2016-11-16] MEDS: DOCUSATE SODIUM 100 MG CAPSULE (FP) PO SCH ×2 (10:32→22:21)
[2016-11-16] MEDS: LORazepam 0.5 MG TABLET PO PRN ×2 (10:32→22:20)
[2016-11-16] MEDS: FLUCONAZOLE 100 MG TABLET (UD) PO SCH (10:32)
[2016-11-16] MEDS: PANTOPRAZOLE 40 MG TABLET (FP) PO SCH (10:32)
[2016-11-16] MEDS: ASPIRIN 81 MG CHEWABLE TABLETS PO SCH (10:32)
[2016-11-16] MEDS: CYANOCOBALAMIN 1,000 MCG TABLET (FP) PO SCH (10:32)
[2016-11-16] MEDS: LOSARTAN POTASSIUM 50 MG TABLET (FP) PO SCH (10:32)
[2016-11-16] MEDS: PREGABALIN 75 MG CAPSULE PO SCH ×2 (10:32→22:22)
[2016-11-16] MEDS: DULoxetine HCL 30 MG CAPSULE.DR (FP) PO SCH (10:32)
[2016-11-16] MEDS: IRON POLYSACCHARIDES 150 MG CAPSULE PO SCH (10:33)
[2016-11-16] MEDS: BUDESONIDE/FORMETEROL FUMARATE 80/4.5 mcg INHALER IH SCH ×2 (10:34→22:22)
[2016-11-16] MEDS: POLYETHYLENE GLYCOL 3350 119 GM BTL PO SCH (10:56)
[2016-11-16] MEDS: MECLIZINE HCL 25 MG TABLET (FP) PO PRN (15:35)
[2016-11-16] MEDS: CEFAZOLIN (PRE-DOCKED) 50 ML IVPB SCH (18:21)
[2016-11-16] MEDS: WARFARIN NA 5 MG TABLET (UD) PO SCH (18:21)
[2016-11-16] MEDS: hydrOXYzine HCL 25 MG TABLET (FP) PO PRN (18:25)
[2016-11-16] MEDS: traZODone HCL 50 MG TABLET (FP) PO SCH (22:21)
[2016-11-16] MEDS: ATORVASTATIN CA 20 MG TABLET (FP) PO SCH (22:21)
[2016-11-16] MEDS: INSULIN DETEMIR 100 UNITS/ML MDV SQ SCH (22:22)
[2016-11-16] MEDS: MICONAZOLE NITRATE 2% VAGINAL CREAM 45 GM TUBE VG SCH (22:23)
[2016-11-17] MEDS: CEFAZOLIN (PRE-DOCKED) 50 ML IVPB SCH ×3 (01:59→18:15)
[2016-11-17] MEDS: HYDROmorphone HCL CARPU-JECT 2 MG/1 ML DISP.SYRIN IVPB PRN ×5 (05:36→21:59)
[2016-11-17] MEDS: LORazepam 0.5 MG TABLET PO PRN ×2 (06:38→22:17)
[2016-11-17] MEDS: INSULIN SLIDING SCALE (NOVOLOG) 1 VIAL SQ SCH ×4 (06:39→22:09)
[2016-11-17 08:21] LABS: BASOPHIL 0.7 % (0-2.0); EOSINOPHIL 12.6 % (0-4.5); MCH 26.1 pg (25.7-33.7); MCHC 31.2 g/dl (32.0-36.0); MEAN CELL VOLUME 83.7 fl (80-96); MEAN PLT VOLUME 8.4 fl (7.5-11.1); NEUTROPHILS 59.5 % (42.8-82.8); PLATELET COUNT 513 K/MM3 (134-434); WHITE BLOOD COUNT 12.3 K/mm3 (4.0-10.0)
[2016-11-17 08:32] LABS: INR 1.74 (0.82-1.09); PROTHROMBIN TIME (PATIENT) 19.4 SEC (9.98-11.88)
--- NOTE | 2016-11-17 08:45 | PN ---
Addendum entered and electronically signed by Laney Parada PA 11/17/16 15:40 : Patient seen and discussed with Dr. Neil Few manuel removed from leg incision and abdominal incision Seroma fluid expressed from upper left leg incision, wound culture obtained INR: INR 1.74 (0.82-1.09) H 11/17/16 06:15 Original Note: Progress Note (short form) - Note Progress Note: Vascular Surgery- Dr. Neil Patient seen and examined. Patient states she is feeling well, but states she is having some pain around the upper portion of her leg incision. Patient states she had a lot of drainage from her leg in the afternoon yesterday. She denies fever/chills/CP/SOB/nausea/vomiting. Last Vital Signs Temp Pulse Resp BP Pulse Ox 98.3 F 99 H 20 118/63 98 11/17/16 06:00 11/17/16 06:00 11/17/16 06:00 11/17/16 06:00 11/16/16 21:00 Labs pending Exam: Gen: NAD Abd: soft, incision intact with manuel, minimal amount of drainage on dressing , dressing changed on rounds LE: left leg incision with manuel intact, some surrounding erythema, firmness, tenderness to palp, draining serosanguineous/light pink/light brown fluid, dressing changed on rounds, left leg warm with DP pulse Problem List - Problems (1) Arterial occlusion Assessment/Plan: POD#14 s/p aorto- left femoral bypass, POD#11 s/p open femoral thrombectomy for thrombosed bypass graft Continue Diet, OOB Bridging to Coumadin, follow INR Monitor left leg incision Continue IV cefazolin Follow-up labs Code(s): I74.9 - EMBOLISM AND THROMBOSIS OF UNSPECIFIED ARTERY
[2016-11-17 08:47] LABS: ACTIVATED PTT 87.3 SECONDS (26.9-34.4)
[2016-11-17 09:06] LABS: ALBUMIN 2.7 g/dl (3.4-5.0); BILIRUBIN,TOTAL 0.3 mg/dL (0.2-1.0); CREATININE 1.8 mg/dL (0.55-1.02); TOT PROT 7.1 g/dl (6.4-8.2)
[2016-11-17] MEDS ORDERED: PT OWN MED DRAWER 7, Y5N ONE ×3 (09:24→21:37)
[2016-11-17] MEDS: DOCUSATE SODIUM 100 MG CAPSULE (FP) PO SCH ×2 (09:34→21:59)
[2016-11-17] MEDS: DULoxetine HCL 30 MG CAPSULE.DR (FP) PO SCH (09:34)
[2016-11-17] MEDS: PREGABALIN 75 MG CAPSULE PO SCH ×2 (09:34→22:02)
[2016-11-17] MEDS: CYCLOBENZAPRINE HCL 10 MG TABLET (FP) PO SCH ×2 (09:34→22:01)
[2016-11-17] MEDS: CYANOCOBALAMIN 1,000 MCG TABLET (FP) PO SCH (09:34)
[2016-11-17] MEDS: LOSARTAN POTASSIUM 50 MG TABLET (FP) PO SCH (09:34)
[2016-11-17] MEDS: ASPIRIN 81 MG CHEWABLE TABLETS PO SCH (09:34)
[2016-11-17] MEDS: IRON POLYSACCHARIDES 150 MG CAPSULE PO SCH (09:35)
[2016-11-17] MEDS: hydrOXYzine HCL 25 MG TABLET (FP) PO PRN ×2 (09:35→14:53)
[2016-11-17] MEDS: PANTOPRAZOLE 40 MG TABLET (FP) PO SCH (09:35)
[2016-11-17] MEDS: BUDESONIDE/FORMETEROL FUMARATE 80/4.5 mcg INHALER IH SCH ×2 (09:36→22:11)
[2016-11-17] MEDS: POLYETHYLENE GLYCOL 3350 119 GM BTL PO SCH (09:45)
--- NOTE | 2016-11-17 10:58 | PN ---
Progress Note, Physician Chief Complaint: ASLEEP, NAD - Current Medication List Current Medications: Active Medications Acetaminophen (Tylenol -) 650 mg PO Q6H PRN PRN Reason: FEVER OR PAIN Albuterol/Ipratropium (Duoneb -) 1 amp NEB Q6H PRN PRN Reason: SHORTNESS OF BREATH Aspirin (Asa -) 81 mg PO DAILY [facility] Last Admin: 11/17/16 09:34 Dose: 81 mg Atorvastatin Calcium (Lipitor -) 20 mg PO HS [facility] Last Admin: 11/16/16 22:21 Dose: 20 mg Budesonide/Formoterol Fumarate (Symbicort 80/4.5mcg -) 2 puff IH BID [facility] Last Admin: 11/17/16 09:36 Dose: 2 puff Cyanocobalamin (Vitamin B12 -) 1,000 mcg PO DAILY [facility] Last Admin: 11/17/16 09:34 Dose: 1,000 mcg Cyclobenzaprine HCl (Flexeril -) 10 mg PO BID [facility] Last Admin: 11/17/16 09:34 Dose: 10 mg Diltiazem HCl (Cardizem Cd -) 120 mg PO DAILY [facility] Last Admin: 11/17/16 09:34 Dose: 120 mg Docusate Sodium (Colace -) 100 mg PO BID [facility] Last Admin: 11/17/16 09:34 Dose: 100 mg Duloxetine HCl (Cymbalta -) 30 mg PO DAILY [facility] Last Admin: 11/17/16 09:34 Dose: 30 mg Hydromorphone HCl (Dilaudid Injection -) 2 mg IVPB Q3H PRN PRN Reason: PAIN LEVEL 6-10 Last Admin: 11/17/16 09:34 Dose: 2 mg Hydroxyzine HCl (Atarax -) 25 mg PO TID PRN PRN Reason: FOR ITCHING Last Admin: 11/17/16 09:35 Dose: 25 mg Heparin Sodium/Dextrose (Heparin Infusion -) 500 mls @ 20 mls/hr IVPB TITR MICK ; 1,000 UNITS/HR PRN Reason: Protocol Last Titration: 11/17/16 09:45 Dose: 1,250 units/hr Cefazolin Sodium (Ancef 1gm Ivpb (Pre-Docked)) 50 mls @ 100 mls/hr IVPB Q8H-IV [facility] Last Admin: 03/17/17 09:34 Dose: 100 mls/hr Insulin Aspart (Novolog Vial Sliding Scale -) 1 vial SQ ACHS [facility] PRN Reason: Protocol Last Admin: 11/17/16 06:39 Dose: Not Given Insulin Detemir (Levemir Vial) 25 units SQ [facility] Last Admin: 11/16/16 22:22 Dose: 25 units Lorazepam (Ativan -) 0.5 mg PO TID PRN PRN Reason: ANXIETY Last Admin: 11/17/16 06:38 Dose: 0.5 mg Losartan Potassium (Cozaar -) 50 mg PO DAILY [facility] Last Admin: 11/17/16 09:34 Dose: 50 mg Meclizine HCl (Antivert -) 25 mg PO TID PRN PRN Reason: VERTIGO Last Admin: 11/16/16 15:35 Dose: 25 mg Miconazole Nitrate (Monistat-7 Vaginal Cream -) 1 applic VG [facility] Stop: 11/20/16 22:01 Last Admin: 11/16/16 22:23 Dose: 1 applic Oxycodone HCl (Roxicodone -) 10 mg PO Q6H PRN PRN Reason: PAIN Pantoprazole Sodium (Protonix -) 40 mg PO DAILY [facility] Last Admin: 11/17/16 09:35 Dose: 40 mg Polyethylene Glycol (Miralax (For Daily Use) -) 17 gm PO DAILY [facility] Last Admin: 11/17/16 09:45 Dose: 17 gm Polysaccharide Iron Complex (Niferex-150 -) 150 mg PO DAILY [facility] Last Admin: 11/17/16 09:35 Dose: 150 mg Pregabalin (Lyrica -) 150 mg PO BID [facility] Last Admin: 11/17/16 09:34 Dose: 150 mg Trazodone HCl (Desyrel -) 100 mg PO [facility] Last Admin: 11/16/16 22:21 Dose: 100 mg Warfarin Sodium (Coumadin -) 5 mg PO DAILY@1800 [facility] Last Admin: 11/16/16 18:21 Dose: 5 mg - Objective Vital Signs: Vital Signs Temperature 98.2 F 11/17/16 08:52 Pulse Rate 87 11/17/16 08:52 Respiratory Rate 18 11/17/16 08:52 Blood Pressure 119/76 11/17/16 08:52 O2 Sat by Pulse Oximetry (%) 98 11/16/16 21:00 Constitutional: Yes: No Distress Eyes: Yes: WNL HENT: Yes: WNL Neck: Yes: WNL Cardiovascular: Yes: WNL Respiratory: Yes: WNL Gastrointestinal: Yes: WNL Genitourinary: Yes: WNL Musculoskeletal: Yes: Muscle Pain Extremities: Yes: WNL Edema: No Peripheral Pulses WNL: Yes Integumentary: Yes: Other Wound/Incision: Yes: Martin Intact, Draining Neurological: Yes: Weakness ...Motor Strength: LLE, RLE Psychiatric: Yes: WNL Labs: CBC, BMP 11/17/16 06:15 11/17/16 06:15 INR, PTT INR 1.74 (0.82-1.09) H 11/17/16 06:15 Problem List - Problems (1) Occlusion of graft of lower extremity Code(s): T82.898A - [facility] COMPLICATION OF VASCULAR PROSTH DEV/GRFT, INIT Qualifiers: Encounter type: sequela Qualified Code(s): T82.898S - Other specified complication of vascular prosthetic devices, implants and grafts, sequela (2) Arterial occlusion Code(s): I74.9 - EMBOLISM AND THROMBOSIS OF UNSPECIFIED ARTERY (3) Chronic kidney disease (CKD) Code(s): N18.9 - CHRONIC KIDNEY DISEASE, UNSPECIFIED (4) Diabetes mellitus Code(s): E11.9 - TYPE 2 DIABETES MELLITUS WITHOUT COMPLICATIONS Assessment/Plan DC PLANNING WHEN CLEARED BY [facility] SX OOB TO CHAIR WITH ASSIST ADA WITH GLYCEMIC CONTROL DISCUSSED WITH PATIENT [facility] SURGERY F/U APPRECIATED OPERATIVE NOTES AND CHART REVIEWED ANEMIA CHRONIC, MONITOR CAREFULLY WHILE ON AC WEEKLY CBC AT MY OFFICE OUTPATIENT DIFLUCAN PO COUMADIN 5MG, HEPARIN IV UNTIL INR BTWN 2-3, INR 1.74 TODAY INCENTIVE SPIROMETRY WOUND CARE
[2016-11-17] MEDS: MECLIZINE HCL 25 MG TABLET (FP) PO PRN (14:52)
[2016-11-17] MEDS: WARFARIN NA 5 MG TABLET (UD) PO SCH (18:15)
[2016-11-17] MEDS: HEPARIN INFUSION - 500 ML IVPB SCH (19:14)
[2016-11-17] MEDS: traZODone HCL 50 MG TABLET (FP) PO SCH (22:01)
[2016-11-17] MEDS: INSULIN DETEMIR 100 UNITS/ML MDV SQ SCH (22:01)
[2016-11-17] MEDS: ATORVASTATIN CA 20 MG TABLET (FP) PO SCH (22:02)
[2016-11-17] MEDS: MICONAZOLE NITRATE 2% VAGINAL CREAM 45 GM TUBE VG SCH (22:12)
[2016-11-18] MEDS: HYDROmorphone HCL CARPU-JECT 2 MG/1 ML DISP.SYRIN IVPB PRN ×3 (01:04→10:00)
[2016-11-18] MEDS: CEFAZOLIN (PRE-DOCKED) 50 ML IVPB SCH ×3 (01:31→18:40)
[2016-11-18] MEDS: HEPARIN INFUSION - 500 ML IVPB SCH ×2 (01:34→18:41)
[2016-11-18] MEDS: INSULIN SLIDING SCALE (NOVOLOG) 1 VIAL SQ SCH ×4 (07:00→22:40)
--- NOTE | 2016-11-18 08:40 | PN ---
Progress Note (short form) - Note Progress Note: POD #15 Alert. Resting comfortably. Getting out of bed and ambulating. A few manuel were removed yesterday from LLE incision (proximal) and small seroma/hematoma expressed. A wound culture was taken. AVSS. Afeb PE Gen: NAD Abd: obese. soft. incision c/d/i. LLE: manuel intact, warm. +DP. minimal serosanguineousdrainage Problem List - Problems (1) Arterial occlusion Assessment/Plan: POD#15 s/p aorto- left femoral bypass POD#12 s/p open femoral thrombectomy for thrombosed bypass graft Cont OOB and ambulate Bridging to Coumadin Monitor INR Cefazolin IVPB f/u wound culture Code(s): I74.9 - EMBOLISM AND THROMBOSIS OF UNSPECIFIED [place] Problem List - Problems (1) Occlusion of bypass graft Code(s): T82.898A - OTH COMPLICATION OF VASCULAR PROSTH DEV/GRFT, INIT Qualifiers: Encounter type: sequela Qualified Code(s): T82.898S - Other specified complication of vascular prosthetic devices, implants and grafts, sequela (2) Hypercoagulable state Code(s): D68.59 - OTHER PRIMARY THROMBOPHILIA (3) Diabetes mellitus Code(s): E11.9 - TYPE 2 DIABETES MELLITUS WITHOUT COMPLICATIONS (4) Obesity Code(s): E66.9 - OBESITY, UNSPECIFIED
--- NOTE | 2016-11-18 09:32 | PN ---
Progress Note, Physician - Current Medication List Current Medications: Active Medications Acetaminophen (Tylenol -) 650 mg PO Q6H PRN PRN Reason: FEVER OR PAIN Aspirin (Asa -) 81 mg PO DAILY [facility] Last Admin: 11/17/16 09:34 Dose: 81 mg Atorvastatin Calcium (Lipitor -) 20 mg PO HS [facility] Last Admin: 11/17/16 22:02 Dose: 20 mg Budesonide/Formoterol Fumarate (Symbicort 80/4.5mcg -) 2 puff IH BID [facility] Last Admin: 11/17/16 22:11 Dose: 2 puff Cyanocobalamin (Vitamin B12 -) 1,000 mcg PO DAILY [facility] Last Admin: 11/17/16 09:34 Dose: 1,000 mcg Cyclobenzaprine HCl (Flexeril -) 10 mg PO BID [facility] Last Admin: 11/17/16 22:01 Dose: 10 mg Diltiazem HCl (Cardizem Cd -) 120 mg PO DAILY [facility] Last Admin: 11/17/16 09:34 Dose: 120 mg Docusate Sodium (Colace -) 100 mg PO BID [facility] Last Admin: 11/17/16 21:59 Dose: 100 mg Duloxetine HCl (Cymbalta -) 30 mg PO DAILY [facility] Last Admin: 11/17/16 09:34 Dose: 30 mg Hydromorphone HCl (Dilaudid Injection -) 2 mg IVPB Q3H PRN PRN Reason: PAIN LEVEL 6-10 Last Admin: 11/18/16 05:20 Dose: 2 mg Hydroxyzine HCl (Atarax -) 25 mg PO TID PRN PRN Reason: FOR ITCHING Last Admin: 11/17/16 14:53 Dose: 25 mg Heparin Sodium/Dextrose (Heparin Infusion -) 500 mls @ 20 mls/hr IVPB TITR MICK ; 1,000 UNITS/HR PRN Reason: Protocol Last Admin: 11/18/16 01:34 Dose: 25 mls/hr Cefazolin Sodium (Ancef 1gm Ivpb (Pre-Docked)) 50 mls @ 100 mls/hr IVPB Q8H-IV [facility] Last Admin: 11/18/16 01:31 Dose: 100 mls/hr Insulin Aspart (Novolog Vial Sliding Scale -) 1 vial SQ ACHS [facility] PRN Reason: Protocol Last Admin: 11/18/16 07:00 Dose: Not Given Insulin Detemir (Levemir Vial) 25 units SQ [facility] Last Admin: 11/17/16 22:01 Dose: 25 units Lorazepam (Ativan -) 0.5 mg PO TID PRN PRN Reason: ANXIETY Last Admin: 11/17/16 22:17 Dose: 0.5 mg Losartan Potassium (Cozaar -) 50 mg PO DAILY [facility] Last Admin: 11/17/16 09:34 Dose: 50 mg Meclizine HCl (Antivert -) 25 mg PO TID PRN PRN Reason: VERTIGO Last Admin: 11/17/16 14:52 Dose: 25 mg Miconazole Nitrate (Monistat-7 Vaginal Cream -) 1 applic VG [facility] Stop: 11/20/16 22:01 Last Admin: 11/17/16 22:12 Dose: 1 applic Oxycodone HCl (Roxicodone -) 10 mg PO Q6H PRN PRN Reason: PAIN Pantoprazole Sodium (Protonix -) 40 mg PO DAILY [facility] Last Admin: 11/17/16 09:35 Dose: 40 mg Polyethylene Glycol (Miralax (For Daily Use) -) 17 gm PO DAILY [facility] Last Admin: 11/17/16 09:45 Dose: 17 gm Polysaccharide Iron Complex (Niferex-150 -) 150 mg PO DAILY [facility] Last Admin: 11/17/16 09:35 Dose: 150 mg Pregabalin (Lyrica -) 150 mg PO BID [facility] Last Admin: 11/17/16 22:02 Dose: 150 mg Trazodone HCl (Desyrel -) 100 mg PO [facility] Last Admin: 11/17/16 22:01 Dose: 100 mg Warfarin Sodium (Coumadin -) 5 mg PO DAILY@1800 [facility] Last Admin: 11/17/16 18:15 Dose: 5 mg - Objective Vital Signs: Vital Signs Temperature 98.8 F 11/18/16 06:00 Pulse Rate 86 11/18/16 06:00 Respiratory Rate 18 11/18/16 06:00 Blood Pressure 105/58 11/18/16 06:00 O2 Sat by Pulse Oximetry (%) 97 11/17/16 21:00 Labs: CBC, BMP 11/17/16 06:15 11/17/16 06:15 INR, PTT INR 1.74 (0.82-1.09) H 11/17/16 06:15
[2016-11-18] MEDS: LOSARTAN POTASSIUM 50 MG TABLET (FP) PO SCH (10:02)
[2016-11-18] MEDS: DULoxetine HCL 30 MG CAPSULE.DR (FP) PO SCH (10:02)
[2016-11-18] MEDS: PREGABALIN 75 MG CAPSULE PO SCH ×2 (10:03→22:31)
[2016-11-18] MEDS: CYANOCOBALAMIN 1,000 MCG TABLET (FP) PO SCH (10:04)
[2016-11-18] MEDS: PANTOPRAZOLE 40 MG TABLET (FP) PO SCH (10:04)
[2016-11-18] MEDS: CYCLOBENZAPRINE HCL 10 MG TABLET (FP) PO SCH ×2 (10:04→22:31)
[2016-11-18] MEDS: DOCUSATE SODIUM 100 MG CAPSULE (FP) PO SCH ×2 (10:15→22:31)
[2016-11-18] MEDS: ASPIRIN 81 MG CHEWABLE TABLETS PO SCH (10:15)
[2016-11-18] MEDS: BUDESONIDE/FORMETEROL FUMARATE 80/4.5 mcg INHALER IH SCH ×2 (10:27→22:35)
[2016-11-18] MEDS: IRON POLYSACCHARIDES 150 MG CAPSULE PO SCH (10:27)
[2016-11-18] MEDS: POLYETHYLENE GLYCOL 3350 119 GM BTL PO SCH (10:27)
[2016-11-18] MEDS: LORazepam 0.5 MG TABLET PO PRN (10:29)
[2016-11-18 12:37] LABS: INR 2.03 (0.82-1.09); PROTHROMBIN TIME (PATIENT) 22.7 SEC (9.98-11.88)
--- NOTE | 2016-11-18 13:29 | PN ---
Progress Note, Physician History of Present Illness: NO FEELS BETTER NO CP - Current Medication List Current Medications: Active Medications Acetaminophen (Tylenol -) 650 mg PO Q6H PRN PRN Reason: FEVER OR PAIN Aspirin (Asa -) 81 mg PO DAILY [facility] Last Admin: 11/18/16 10:15 Dose: 81 mg Atorvastatin Calcium (Lipitor -) 20 mg PO HS [facility] Last Admin: 11/17/16 22:02 Dose: 20 mg Budesonide/Formoterol Fumarate (Symbicort 80/4.5mcg -) 2 puff IH BID [facility] Last Admin: 11/18/16 10:27 Dose: 2 puff Cyanocobalamin (Vitamin B12 -) 1,000 mcg PO DAILY [facility] Last Admin: 11/18/16 10:04 Dose: 1,000 mcg Cyclobenzaprine HCl (Flexeril -) 10 mg PO BID [facility] Last Admin: 11/18/16 10:04 Dose: 10 mg Diltiazem HCl (Cardizem Cd -) 120 mg PO DAILY [facility] Last Admin: 11/18/16 10:02 Dose: 120 mg Docusate Sodium (Colace -) 100 mg PO BID [facility] Last Admin: 11/18/16 10:15 Dose: 100 mg Duloxetine HCl (Cymbalta -) 30 mg PO DAILY [facility] Last Admin: 11/18/16 10:02 Dose: 30 mg Heparin Sodium/Dextrose (Heparin Infusion -) 500 mls @ 20 mls/hr IVPB TITR MICK ; 1,000 UNITS/HR PRN Reason: Protocol Last Admin: 11/18/16 01:34 Dose: 25 mls/hr Cefazolin Sodium (Ancef 1gm Ivpb (Pre-Docked)) 50 mls @ 100 mls/hr IVPB Q8H-IV [facility] Last Admin: 11/18/16 10:28 Dose: 100 mls/hr Insulin Aspart (Novolog Vial Sliding Scale -) 1 vial SQ ACHS [facility] PRN Reason: Protocol Last Admin: 11/18/16 07:00 Dose: Not Given Insulin Detemir (Levemir Vial) 25 units SQ HS [facility] Last Admin: 11/17/16 22:01 Dose: 25 units Losartan Potassium (Cozaar -) 50 mg PO DAILY [facility] Last Admin: 11/18/16 10:02 Dose: 50 mg Meclizine HCl (Antivert -) 25 mg PO TID PRN PRN Reason: VERTIGO Last Admin: 11/17/16 14:52 Dose: 25 mg Miconazole Nitrate (Monistat-7 Vaginal Cream -) 1 applic VG [facility] Stop: 11/20/16 22:01 Last Admin: 11/17/16 22:12 Dose: 1 applic Pantoprazole Sodium (Protonix -) 40 mg PO DAILY [facility] Last Admin: 11/18/16 10:04 Dose: 40 mg Polyethylene Glycol (Miralax (For Daily Use) -) 17 gm PO DAILY [facility] Last Admin: 11/18/16 10:27 Dose: 17 gm Polysaccharide Iron Complex (Niferex-150 -) 150 mg PO DAILY [facility] Last Admin: 11/18/16 10:27 Dose: 150 mg Pregabalin (Lyrica -) 150 mg PO BID [facility] Last Admin: 11/18/16 10:03 Dose: 150 mg Trazodone HCl (Desyrel -) 100 mg PO [facility] Last Admin: 11/17/16 22:01 Dose: 100 mg Warfarin Sodium (Coumadin -) 5 mg PO DAILY@1800 [facility] Last Admin: 11/17/16 18:15 Dose: 5 mg - Objective Vital Signs: Vital Signs Temperature 98.8 F 11/18/16 06:00 Pulse Rate 86 11/18/16 06:00 Respiratory Rate 18 11/18/16 06:00 Blood Pressure 105/58 11/18/16 06:00 O2 Sat by Pulse Oximetry (%) 97 11/17/16 21:00 Cardiovascular: Yes: Regular Rate and Rhythm Respiratory: Yes: Regular, CTA Bilaterally Gastrointestinal: Yes: Normal Bowel Sounds, Soft Labs: CBC, BMP 11/17/16 06:15 11/17/16 06:15 INR, PTT INR 2.03 (0.82-1.09) H 11/18/16 11:32 Problem List - Problems (1) Occlusion of graft of lower extremity Assessment/Plan: PER SURGERY PAIN CONTROL Code(s): T82.898A - OTH COMPLICATION OF VASCULAR PROSTH DEV/GRFT, INIT Qualifiers: Encounter type: sequela Qualified Code(s): T82.898S - Other specified complication of vascular prosthetic devices, implants and grafts, sequela (2) CAD (coronary artery disease) Assessment/Plan: NO CP OBSERVE Code(s): I25.10 - ATHSCL HEART DISEASE OF [place] CORONARY ARTERY W/O ANG PCTRS Qualifiers: Coronary Disease-Associated Artery/Lesion type: coronary artery bypass graft Associated angina: without angina pectoris (3) COPD (chronic obstructive pulmonary disease) Assessment/Plan: NO SOB Code(s): J44.9 - CHRONIC OBSTRUCTIVE PULMONARY DISEASE, UNSPECIFIED Qualifiers : Emphysema type: unspecified (4) Chronic kidney disease (CKD) Assessment/Plan: Laboratory Tests 11/12/16 11/13/16 11/14/16 07:20 06:15 06:30 Creatinine 1.2 H 1.3 H 1.3 H 11/17/16 06:15 Creatinine 1.8 H D REPEAT Code(s): N18.9 - CHRONIC KIDNEY DISEASE, UNSPECIFIED (5) Diabetes mellitus Assessment/Plan: BGM Code(s): E11.9 - TYPE 2 DIABETES MELLITUS WITHOUT COMPLICATIONS
[2016-11-18 14:17] LABS: CALCIUM 8.4 mg/dL (8.5-10.1); CREATININE 1.7 mg/dL (0.55-1.02)
[2016-11-18] MEDS ORDERED: HYDROmorphone HCL CARPU-JECT 2 MG/1 ML DISP.SYRIN ONE (18:20)
[2016-11-18] MEDS: WARFARIN NA 5 MG TABLET (UD) PO SCH (18:41)
[2016-11-18] MEDS ORDERED: PT OWN MED DRAWER 7, Y5N ONE (22:29)
[2016-11-18] MEDS: traZODone HCL 50 MG TABLET (FP) PO SCH (22:31)
[2016-11-18] MEDS: ATORVASTATIN CA 20 MG TABLET (FP) PO SCH (22:31)
[2016-11-18] MEDS: MECLIZINE HCL 25 MG TABLET (FP) PO PRN (22:33)
[2016-11-18] MEDS: INSULIN DETEMIR 100 UNITS/ML MDV SQ SCH (22:39)
[2016-11-18] MEDS: MICONAZOLE NITRATE 2% VAGINAL CREAM 45 GM TUBE VG SCH (22:40)
[2016-11-18] MEDS: oxyCODONE HCL 5 MG TABLET PO PRN (23:59)
[2016-11-19] MEDS: HEPARIN INFUSION - 500 ML IVPB SCH ×3 (00:05→03:31)
[2016-11-19] MEDS: CEFAZOLIN (PRE-DOCKED) 50 ML IVPB SCH ×3 (01:58→17:58)
[2016-11-19] MEDS: INSULIN SLIDING SCALE (NOVOLOG) 1 VIAL SQ SCH ×4 (06:30→23:17)
--- NOTE | 2016-11-19 08:25 | PN ---
Progress Note (short form) - Note Progress Note: POD #16 Alert. Resting comfortably. Getting out of bed and ambulating. Continues to drain serosang from LLE incision (proximal). No complaints. AVSS. Afeb INR, PTT INR 2.03 (0.82-1.09) H 03/18/17 11:32 Microbiology: (LLE wound) G+ cocci in chains and few G+ bacilli PE Gen: NAD Abd: obese. soft. incision c/d/i. LLE: manuel intact, warm. +DP. minimal serosanguineous drainage. Problem List - Problems (1) Occlusion of bypass graft Assessment/Plan: POD#16 s/p aorto- left femoral bypass POD#13 s/p open femoral thrombectomy for thrombosed bypass graft Cont OOB and ambulate Coumadin Monitor INR Cefazolin IVPB Heparin stop Above plan discussed with Dr. Neil and agrees. Code(s): T82.898A - OTH COMPLICATION OF VASCULAR PROSTH DEV/GRFT, INIT Qualifiers: Encounter type: sequela Qualified Code(s): T82.898S - Other specified complication of vascular prosthetic devices, implants and grafts, sequela (2) Hypercoagulable state Code(s): D68.59 - OTHER PRIMARY THROMBOPHILIA (3) Diabetes mellitus Assessment/Plan: Tight glycemic control Code(s): E11.9 - TYPE 2 DIABETES MELLITUS WITHOUT COMPLICATIONS (4) Obesity Code(s): E66.9 - OBESITY, UNSPECIFIED
[2016-11-19 08:54] LABS: BASOPHIL 0.2 % (0-2.0); EOSINOPHIL 10.2 % (0-4.5); MCH 26.3 pg (25.7-33.7); MCHC 31.5 g/dl (32.0-36.0); MEAN CELL VOLUME 83.5 fl (80-96); MEAN PLT VOLUME 8.9 fl (7.5-11.1); NEUTROPHILS 61.8 % (42.8-82.8); PLATELET COUNT 369 K/MM3 (134-434); RDW 21.2 % (11.6-15.6); WHITE BLOOD COUNT 10.9 K/mm3 (4.0-10.0)
[2016-11-19 09:39] LABS: CALCIUM 7.9 mg/dL (8.5-10.1); CREATININE 1.4 mg/dL (0.55-1.02)
[2016-11-19] MEDS ORDERED: PT OWN MED DRAWER 7, Y5N ONE ×3 (09:59→23:16)
[2016-11-19] MEDS: DOCUSATE SODIUM 100 MG CAPSULE (FP) PO SCH ×2 (10:14→22:54)
[2016-11-19] MEDS: ASPIRIN 81 MG CHEWABLE TABLETS PO SCH (10:14)
[2016-11-19] MEDS: LOSARTAN POTASSIUM 50 MG TABLET (FP) PO SCH (10:16)
[2016-11-19] MEDS: DULoxetine HCL 30 MG CAPSULE.DR (FP) PO SCH (10:17)
[2016-11-19] MEDS: CYCLOBENZAPRINE HCL 10 MG TABLET (FP) PO SCH ×2 (10:17→22:54)
[2016-11-19] MEDS: POLYETHYLENE GLYCOL 3350 119 GM BTL PO SCH (10:18)
[2016-11-19] MEDS: PANTOPRAZOLE 40 MG TABLET (FP) PO SCH (10:19)
[2016-11-19] MEDS: IRON POLYSACCHARIDES 150 MG CAPSULE PO SCH (10:19)
--- NOTE | 2016-11-19 10:20 | PN ---
Progress Note, Physician History of Present Illness: NO FEELS BETTER NO CP - Current Medication List Current Medications: Active Medications Acetaminophen (Tylenol -) 650 mg PO Q6H PRN PRN Reason: FEVER OR PAIN Aspirin (Asa -) 81 mg PO DAILY [facility] Last Admin: 11/18/16 10:15 Dose: 81 mg Atorvastatin Calcium (Lipitor -) 20 mg PO HS [facility] Last Admin: 11/18/16 22:31 Dose: 20 mg Budesonide/Formoterol Fumarate (Symbicort 80/4.5mcg -) 2 puff IH BID [facility] Last Admin: 11/18/16 22:35 Dose: 2 puff Cyanocobalamin (Vitamin B12 -) 1,000 mcg PO DAILY [facility] Last Admin: 11/18/16 10:04 Dose: 1,000 mcg Cyclobenzaprine HCl (Flexeril -) 10 mg PO BID [facility] Last Admin: 11/18/16 22:31 Dose: 10 mg Diltiazem HCl (Cardizem Cd -) 120 mg PO DAILY [facility] Last Admin: 11/18/16 10:02 Dose: 120 mg Docusate Sodium (Colace -) 100 mg PO BID [facility] Last Admin: 11/18/16 22:31 Dose: 100 mg Duloxetine HCl (Cymbalta -) 30 mg PO DAILY [facility] Last Admin: 11/18/16 10:02 Dose: 30 mg Cefazolin Sodium (Ancef 1gm Ivpb (Pre-Docked)) 50 mls @ 100 mls/hr IVPB Q8H-IV [facility] Last Admin: 11/19/16 01:58 Dose: 100 mls/hr Insulin Aspart (Novolog Vial Sliding Scale -) 1 vial SQ ACHS [facility] PRN Reason: Protocol Last Admin: 11/19/16 06:30 Dose: Not Given Insulin Detemir (Levemir Vial) 25 units SQ [facility] Last Admin: 11/18/16 22:39 Dose: 25 units Losartan Potassium (Cozaar -) 50 mg PO DAILY [facility] Last Admin: 11/18/16 10:02 Dose: 50 mg Meclizine HCl (Antivert -) 25 mg PO TID PRN PRN Reason: VERTIGO Last Admin: 11/18/16 22:33 Dose: 25 mg Miconazole Nitrate (Monistat-7 Vaginal Cream -) 1 applic VG [facility] Stop: 11/20/16 22:01 Last Admin: 11/18/16 22:40 Dose: 1 applic Oxycodone HCl (Roxicodone -) 10 mg PO Q6H PRN Last Admin: 11/18/16 23:59 Dose: 10 mg Pantoprazole Sodium (Protonix -) 40 mg PO DAILY [facility] Last Admin: 11/18/16 10:04 Dose: 40 mg Polyethylene Glycol (Miralax (For Daily Use) -) 17 gm PO DAILY [facility] Last Admin: 11/18/16 10:27 Dose: 17 gm Polysaccharide Iron Complex (Niferex-150 -) 150 mg PO DAILY [facility] Last Admin: 11/18/16 10:27 Dose: 150 mg Trazodone HCl (Desyrel -) 100 mg PO HS [facility] Last Admin: 11/18/16 22:31 Dose: 100 mg Warfarin Sodium (Coumadin -) 5 mg PO DAILY@1800 [facility] Last Admin: 11/18/16 18:41 Dose: 5 mg - Objective Vital Signs: Vital Signs Temperature 99 F 11/19/16 10:00 Pulse Rate 94 H 11/19/16 10:00 Respiratory Rate 20 11/19/16 10:00 Blood Pressure 133/89 11/19/16 10:00 O2 Sat by Pulse Oximetry (%) 97 11/17/16 21:00 Respiratory: Yes: Regular, CTA Bilaterally Gastrointestinal: Yes: Normal Bowel Sounds, Soft Extremities: Yes: Other Edema: No Wound/Incision: Yes: Bleeding Labs: CBC, BMP 11/19/16 06:50 INR, PTT INR 2.03 (0.82-1.09) H 11/18/16 11:32 Problem List - Problems (1) Occlusion of graft of lower extremity Assessment/Plan: PER SURGERY PAIN CONTROL DC HEPARIN COUMADIN--INR 2 Code(s): T82.898A - OTH COMPLICATION OF VASCULAR PROSTH DEV/GRFT, INIT Qualifiers: Encounter type: sequela Qualified Code(s): T82.898S - Other specified complication of vascular prosthetic devices, implants and grafts, sequela (2) CAD (coronary artery disease) Assessment/Plan: NO CP OBSERVE Code(s): I25.10 - ATHSCL HEART DISEASE OF [place] CORONARY ARTERY W/O ANG PCTRS Qualifiers: Coronary Disease-Associated Artery/Lesion type: coronary artery bypass graft Associated angina: without angina pectoris (3) COPD (chronic obstructive pulmonary disease) Assessment/Plan: NO SOB Code(s): J44.9 - CHRONIC OBSTRUCTIVE PULMONARY DISEASE, UNSPECIFIED Qualifiers : Emphysema type: unspecified (4) Chronic kidney disease (CKD) Assessment/Plan: Laboratory Tests 11/12/16 11/13/16 11/14/16 07:20 06:15 06:30 Creatinine 1.2 H 1.3 H 1.3 H 11/17/16 06:15 Creatinine 1.8 H D REPEAT Code(s): N18.9 - CHRONIC KIDNEY DISEASE, UNSPECIFIED (5) Diabetes mellitus Assessment/Plan: BGM Code(s): E11.9 - TYPE 2 DIABETES MELLITUS WITHOUT COMPLICATIONS (6) Anemia Assessment/Plan: TRANSFUSE PRBC FOLLOW CBC SURGICAL F/U Code(s): D64.9 - ANEMIA, UNSPECIFIED
[2016-11-19] MEDS: CYANOCOBALAMIN 1,000 MCG TABLET (FP) PO SCH (10:21)
[2016-11-19] MEDS: BUDESONIDE/FORMETEROL FUMARATE 80/4.5 mcg INHALER IH SCH ×2 (10:21→22:55)
[2016-11-19] MEDS: oxyCODONE HCL 5 MG TABLET PO PRN ×2 (10:28→16:53)
[2016-11-19] MEDS: WARFARIN NA 5 MG TABLET (UD) PO SCH (18:43)
[2016-11-19] MEDS: traZODone HCL 50 MG TABLET (FP) PO SCH (22:54)
[2016-11-19] MEDS: ATORVASTATIN CA 20 MG TABLET (FP) PO SCH (22:54)
[2016-11-19] MEDS: MICONAZOLE NITRATE 2% VAGINAL CREAM 45 GM TUBE VG SCH (22:55)
[2016-11-19] MEDS: INSULIN DETEMIR 100 UNITS/ML MDV SQ SCH (23:17)
[2016-11-19] MEDS: MECLIZINE HCL 25 MG TABLET (FP) PO PRN (23:17)
[2016-11-20] MEDS: INSULIN SLIDING SCALE (NOVOLOG) 1 VIAL SQ SCH ×4 (06:31→22:19)
[2016-11-20 08:29] LABS: MCH 26.8 pg (25.7-33.7); MCHC 32.5 g/dl (32.0-36.0); MEAN CELL VOLUME 82.5 fl (80-96); MEAN PLT VOLUME 8.3 fl (7.5-11.1); PLATELET COUNT 424 K/MM3 (134-434); RDW 19.2 % (11.6-15.6)
[2016-11-20 08:39] LABS: INR 1.95 (0.82-1.09); PROTHROMBIN TIME (PATIENT) 21.7 SEC (9.98-11.88)
[2016-11-20] MEDS ORDERED: PT OWN MED DRAWER 7, Y5N ONE ×2 (09:39→21:27)
[2016-11-20] MEDS: BUDESONIDE/FORMETEROL FUMARATE 80/4.5 mcg INHALER IH SCH ×2 (09:47→21:39)
[2016-11-20] MEDS: PANTOPRAZOLE 40 MG TABLET (FP) PO SCH (09:48)
[2016-11-20] MEDS: DOCUSATE SODIUM 100 MG CAPSULE (FP) PO SCH ×2 (09:48→21:39)
[2016-11-20] MEDS: IRON POLYSACCHARIDES 150 MG CAPSULE PO SCH (09:48)
[2016-11-20] MEDS: DULoxetine HCL 30 MG CAPSULE.DR (FP) PO SCH (09:48)
[2016-11-20] MEDS: ASPIRIN 81 MG CHEWABLE TABLETS PO SCH (09:48)
[2016-11-20] MEDS: CYCLOBENZAPRINE HCL 10 MG TABLET (FP) PO SCH ×2 (09:48→21:38)
[2016-11-20] MEDS: LOSARTAN POTASSIUM 50 MG TABLET (FP) PO SCH (09:48)
[2016-11-20] MEDS: POLYETHYLENE GLYCOL 3350 119 GM BTL PO SCH (09:48)
[2016-11-20] MEDS: CYANOCOBALAMIN 1,000 MCG TABLET (FP) PO SCH (09:48)
--- NOTE | 2016-11-20 10:17 | PN ---
Progress Note (short form) - Note Progress Note: ID consult dictated imp/reccd asked to see for positive wound culture admitted 10/31 with suspicion of occulded LLE bypass (third occlusion) s/p aortofemoral bypass with saphenous vein 11/03 s/p open thrombecotmy 11/06 of thrombosis of left femoral bypass anastomosis noted to have drainage from the thigh incison 11/16- staple removed, culture sent and started on cefazolin now reports continued drainage and increased pain had been switched to oral meds now requesting iv pain meds! no fever or chills draining thigh incision- seroma/hematoma- ?infected wound culture with skin abraham and enterococcus- id and sensitivity pending no real erythema surrounding wound surgical followup pending blood cultures f/u final wound culture switch to vancomycin to cover enterococcus pending final culture report
[2016-11-20] MEDS ORDERED: HYDROmorphone HCL CARPU-JECT 1 MG/1 ML DISP.SYRIN IVPB ONE (11:45)
[2016-11-20] MEDS ORDERED: INSULIN (NOVOLOG) ASPART 100 UNITS/ML 10ML VIAL ONE (11:52)
[2016-11-20] MEDS: VANCOMYCIN 1 GRAM (PRE-DOCKED) 1,000 MG/250 ML BAG IVPB SCH (11:56)
[2016-11-20] MEDS: LORazepam 0.5 MG TABLET PO SCH ×2 (11:56→21:38)
--- NOTE | 2016-11-20 12:39 | CONS ---
DATE OF CONSULTATION: HISTORY: This is a 41-year-old woman with longstanding diabetes. She was admitted on the due to recurrent pain in her left lower extremity. She has a history of prior left iliac femoral bypass that has been occluded twice in the past and had been stented. She presented in October to the vascular surgeon with worsening pain in the left leg at rest. She was admitted with the suspicion of occlusion again of the graft, which was confirmed. On the 03 of November, she underwent an aortofemoral bypass with saphenous vein. On the 06 of November, she underwent an open thrombectomy. The aortofemoral graft was thrombosed at the distal anastomosis. She was noted on the to have some drainage from the thigh incision. A staple was removed, culture was sent, and she was started on cefazolin. The patient now reports continued drainage and increased pain. She had been switched to oral medications and is now requesting IV pain medications. She has had no fevers or chills. I am asked to see her for continued drainage and for positive wound culture. She denies any nausea or vomiting. Her appetite is good. She has been ambulating. She has no shortness of breath. PAST MEDICAL HISTORY: Notable for CVA. She has a history of neuropathy, coronary artery disease, hypertension, hyperlipidemia, asthma, COPD, GERD, osteoarthritis, diabetes. She is status post ventral hernia repair and left iliac occlusion with a femoral-femoral bypass that originally failed followed by a left iliac to left femoral bypass, which thrombosed 3 times. Now she is status post aortofemoral bypass on the left side with saphenous vein. ALLERGIES: She has no known drug allergies. MEDICATIONS: At home include Lipitor, Pulmicort, Cardizem, Victoza, albuterol nebulizer, Atarax, insulin, Lyrica, Fioricet, vitamin D, Flexeril, Farxiga, Cymbalta, aspirin, Plavix. She was on Lovenox prior to admission, insulin, Ativan, losartan, Antivert, and Trazodone. FAMILY HISTORY: Notable for diabetes in her mother and sister. SOCIAL HISTORY: She lives in the community with her spouse. She is a former smoker. She quit many years ago. REVIEW OF SYSTEMS: She denies any cough, shortness of breath. She has no nausea, vomiting, diarrhea, or dysuria. She notes worsening pain in her leg. PHYSICAL EXAMINATION: General: She is awake and alert. Vital Signs: Temperature 98.6, T-max 99, pulse 82, blood pressure 143/80, respiratory rate 18. HEENT: She is normocephalic. Her eyes are anicteric. Neck: Supple. Lungs: Clear to auscultation. Heart: Regular rate and rhythm. Abdomen: Soft. She has an incision with manuel in her mid abdomen. There is no drainage or erythema. She has an incision on her left thigh. A staple has been removed, and she has some bloody, serous drainage. There is no gross purulence or odor associated with it. There is no surrounding erythema. White count 11, hemoglobin 11.8, platelets 424, INR 1.9, BUN 17, creatinine 1.4. Wound culture is growing group B enterococcus, coagulase-negative staphylococcus, and Corynebacterium. In summary, this is a 41-year-old diabetic woman status post aortofemoral bypass on the 3rd with open thrombectomy on the 6th for thrombosis of the anastomotic site who now has a draining thigh incision, hematoma. Question is whether it is infected. The wound culture is growing skin abraham and enterococcus. ID and sensitivities are pending. She has no surrounding erythema, but she does have a significant amount of pain. Surgery has been following her up daily. Would await their comments about this continued drainage. Would obtain blood cultures and follow up final wound culture. Would switch to vancomycin for now to cover enterococcus pending the final wound culture. Further recommendations to follow based on her clinical course. GURJIT CALDWELL M.D. [id number]
[2016-11-20] MEDS ORDERED: HYDROmorphone HCL CARPU-JECT 1 MG/1 ML DISP.SYRIN ONE (18:06)
[2016-11-20] MEDS: HYDROmorphone HCL CARPU-JECT 1 MG/1 ML DISP.SYRIN IVPB PRN (18:10)
[2016-11-20] MEDS ORDERED: MINERAL OIL/PET HY-PHL TOPICAL OINTMENT 454 GM JAR TP PRN (18:11)
--- NOTE | 2016-11-20 20:13 | PN ---
Progress Note, Physician Chief Complaint: REQUESTING HIGHER PAIN Rx - Current Medication List Current Medications: Active Medications Acetaminophen (Tylenol -) 650 mg PO Q6H PRN PRN Reason: FEVER OR PAIN Aspirin (Asa -) 81 mg PO DAILY [facility] Last Admin: 11/20/16 09:48 Dose: 81 mg Atorvastatin Calcium (Lipitor -) 20 mg PO HS [facility] Last Admin: 11/19/16 22:54 Dose: 20 mg Budesonide/Formoterol Fumarate (Symbicort 80/4.5mcg -) 2 puff IH BID [facility] Last Admin: 11/20/16 09:47 Dose: 2 puff Cyanocobalamin (Vitamin B12 -) 1,000 mcg PO DAILY [facility] Last Admin: 11/20/16 09:48 Dose: 1,000 mcg Cyclobenzaprine HCl (Flexeril -) 10 mg PO BID [facility] Last Admin: 11/20/16 09:48 Dose: 10 mg Diltiazem HCl (Cardizem Cd -) 120 mg PO DAILY [facility] Last Admin: 11/20/16 09:48 Dose: 120 mg Docusate Sodium (Colace -) 100 mg PO BID [facility] Last Admin: 11/20/16 09:48 Dose: 100 mg Duloxetine HCl (Cymbalta -) 30 mg PO DAILY [facility] Last Admin: 11/20/16 09:48 Dose: 30 mg Emollient Ointment (Aquaphor -) 1 applic TP BID PRN Hydromorphone HCl (Dilaudid Injection -) 1 mg IVPB Q6H PRN Last Admin: 11/20/16 18:10 Dose: 1 mg Insulin Aspart (Novolog Vial Sliding Scale -) 1 vial SQ ACHS [facility] PRN Reason: Protocol Last Admin: 11/20/16 17:38 Dose: Not Given Insulin Detemir (Levemir Vial) 25 units SQ HS [facility] Last Admin: 11/19/16 23:17 Dose: 25 units Lorazepam (Ativan -) 0.5 mg PO BID [facility] Last Admin: 11/20/16 11:56 Dose: 0.5 mg Losartan Potassium (Cozaar -) 50 mg PO DAILY [facility] Last Admin: 11/20/16 09:48 Dose: 50 mg Meclizine HCl (Antivert -) 25 mg PO TID PRN PRN Reason: [facility] Last Admin: 11/19/16 23:17 Dose: 25 mg Miconazole Nitrate (Monistat-7 Vaginal Cream -) 1 applic VG [facility] Stop: 11/20/16 22:01 Last Admin: 11/19/16 22:55 Dose: 1 applic Oxycodone HCl (Roxicodone -) 10 mg PO Q6H PRN Last Admin: 11/19/16 16:53 Dose: 10 mg Pantoprazole Sodium (Protonix -) 40 mg PO DAILY [facility] Last Admin: 11/20/16 09:48 Dose: 40 mg Polyethylene Glycol (Miralax (For Daily Use) -) 17 gm PO DAILY [facility] Last Admin: 11/20/16 09:48 Dose: Not Given Polysaccharide Iron Complex (Niferex-150 -) 150 mg PO DAILY [facility] Last Admin: 11/20/16 09:48 Dose: 150 mg Trazodone HCl (Desyrel -) 100 mg PO [facility] Last Admin: 11/19/16 22:54 Dose: 100 mg Vancomycin HCl (Vancomycin (Pre-Docked)) 1,000 mg IVPB DAILY@1100 [facility] PRN Reason: Protocol Last Admin: 11/20/16 11:56 Dose: 1,000 mg Warfarin Sodium (Coumadin -) 5 mg PO DAILY@1800 [facility] - Objective Vital Signs: Vital Signs Temperature 98.4 F 11/20/16 17:24 Pulse Rate 84 11/20/16 17:24 Respiratory Rate 18 11/20/16 17:24 Blood Pressure 133/86 11/20/16 17:24 O2 Sat by Pulse Oximetry (%) 95 11/20/16 09:00 Cardiovascular: Yes: WNL Respiratory: Yes: WNL Gastrointestinal: Yes: WNL Labs: CBC, BMP 11/20/16 07:00 11/19/16 06:50 INR, PTT INR 1.95 (0.82-1.09) H 11/20/16 07:00 Problem List - Problems (1) Occlusion of graft of lower extremity Code(s): T82.898A - OTH COMPLICATION OF VASCULAR PROSTH DEV/GRFT, INIT Qualifiers: Encounter type: sequela Qualified Code(s): T82.898S - Other specified complication of vascular prosthetic devices, implants and grafts, sequela (2) CAD (coronary artery disease) Code(s): I25.10 - ATHSCL HEART DISEASE OF [place] CORONARY ARTERY W/O ANG PCTRS Qualifiers: Coronary Disease-Associated Artery/Lesion type: coronary artery bypass graft Associated angina: without angina pectoris (3) Chronic kidney disease (CKD) Code(s): N18.9 - CHRONIC KIDNEY DISEASE, UNSPECIFIED (4) Diabetes mellitus Code(s): E11.9 - TYPE 2 DIABETES MELLITUS WITHOUT COMPLICATIONS (5) Hypertension Code(s): I10 - ESSENTIAL (PRIMARY) HYPERTENSION Qualifiers: Hypertension type: essential hypertension Qualified Code(s): I10 - Essential (primary) hypertension (6) Leukocytosis Code(s): D72.829 - ELEVATED WHITE BLOOD CELL COUNT, UNSPECIFIED Assessment/Plan (1) Occlusion of graft of lower extremity Assessment/Plan: PER SURGERY PAIN CONTROL DC HEPARIN COUMADIN Code(s): T82.898A - OTH COMPLICATION OF VASCULAR PROSTH DEV/GRFT, INIT Qualifiers: Encounter type: sequela Qualified Code(s): T82.898S - Other specified complication of vascular prosthetic devices, implants and grafts, sequela (2) CAD (coronary artery disease) Assessment/Plan: NO CP OBSERVE Code(s): I25.10 - ATHSCL HEART DISEASE OF [place] CORONARY ARTERY W/O ANG PCTRS Qualifiers: Coronary Disease-Associated Artery/Lesion type: coronary artery bypass graft Associated angina: without angina pectoris (3) COPD (chronic obstructive pulmonary disease) Assessment/Plan: NO SOB Code(s): J44.9 - CHRONIC OBSTRUCTIVE PULMONARY DISEASE, UNSPECIFIED Qualifiers : Emphysema type: unspecified (4) Chronic kidney disease (CKD) Assessment/Plan: Cr IMPROVED -> F/U REPEAT Code(s): N18.9 - CHRONIC KIDNEY DISEASE, UNSPECIFIED (5) Diabetes mellitus Assessment/Plan: BGM Code(s): E11.9 - TYPE 2 DIABETES MELLITUS WITHOUT COMPLICATIONS (6) Anemia Assessment/Plan: TRANSFUSE PRBC FOLLOW CBC -> HGB 12 SURGICAL F/U Code(s): D64.9 - ANEMIA, UNSPECIFIED (7) Leukocytosis Code(s): D72.829 - ELEVATED WHITE BLOOD CELL COUNT, UNSPECIFIED ID ON CASE IV ABx F/U CULTURES -> WOUND +ruddy [employer] FM
--- NOTE | 2016-11-20 21:04 | PN ---
Progress Note (short form) - Note Progress Note: PAtient seen and examined s/p thrombectomy of femoral bypass graft Last Vital Signs Temp Pulse Resp BP Pulse Ox 98.4 F 84 18 133/86 95 11/20/16 17:24 11/20/16 17:24 11/20/16 17:24 11/20/16 17:24 11/20/16 09:00 HEENT: GOLD[place], EOM Intact Oropharynx: No thrush, No mucositis Cor: RSR, No murmurs, No gallops Lungs: Clear to P&A Abd: Soft, Normal bowel sounds, No organomegaly LLE---mild oozing fro LLE wound Abnormal Lab Results 11/20/16 11/20/16 07:00 07:00 WBC 11.0 H RDW 19.2 H INR 1.95 H Current Medications Generic Name Dose Route Start Last Admin Trade Name Freq PRN Reason Stop Dose Admin Acetaminophen 650 mg 11/08/16 17:52 Tylenol - PO Q6H PRN FEVER OR PAIN Aspirin 81 mg 11/09/16 10:00 11/20/16 09:48 Asa - PO 81 mg DAILY [facility] Administration Atorvastatin Calcium 20 mg 11/08/16 22:00 11/20/16 21:38 Lipitor - PO 20 mg HS [facility] Administration Budesonide/Formoterol Fumarate 2 puff 11/08/16 22:00 11/20/16 21:39 Symbicort 80/4.5mcg - IH 2 puff BID [facility] Administration Cyanocobalamin 1,000 mcg 11/11/16 10:00 11/20/16 09:48 Vitamin B12 - PO 1,000 mcg DAILY [facility] Administration Cyclobenzaprine HCl 10 mg 11/08/16 22:00 11/20/16 21:38 Flexeril - PO 10 mg BID [facility] Administration Diltiazem HCl 120 mg 11/09/16 10:00 11/20/16 09:48 Cardizem Cd - PO 120 mg DAILY [facility] Administration Docusate Sodium 100 mg 11/08/16 22:00 11/20/16 21:39 Colace - PO 100 mg BID [facility] Administration Duloxetine HCl 30 mg 11/09/16 10:00 11/20/16 09:48 Cymbalta - PO 30 mg DAILY [facility] Administration Emollient Ointment 1 applic 11/20/16 18:11 Aquaphor - TP BID PRN Hydromorphone HCl 1 mg 11/20/16 18:10 11/20/16 18:10 Dilaudid Injection - IVPB 1 mg Q6H PRN Administration Insulin Aspart 1 vial 11/08/16 22:00 11/20/16 17:38 Novolog Vial Sliding Scale - SQ Not Given ACHS [facility] Protocol Insulin Detemir 25 units 11/08/16 22:00 11/19/16 23:17 Levemir Vial SQ 25 units HS [facility] Administration Lorazepam 0.5 mg 11/20/16 11:45 11/20/16 21:38 Ativan - PO 0.5 mg BID [facility] Administration Losartan Potassium 50 mg 11/09/16 10:00 11/20/16 09:48 Cozaar - PO 50 mg DAILY [facility] Administration Meclizine HCl 25 mg 11/08/16 17:52 11/19/16 23:17 Antivert - PO 25 mg TID PRN Administration VERTIGO Miconazole Nitrate 1 applic 11/14/16 22:00 11/20/16 21:39 Monistat-7 Vaginal Cream - VG 11/20/16 22:01 1 applic HS [facility] Administration Oxycodone HCl 10 mg 11/18/16 23:54 11/19/16 16:53 Roxicodone - PO 10 mg Q6H PRN Administration Pantoprazole Sodium 40 mg 11/09/16 10:00 11/20/16 09:48 Protonix - PO 40 mg DAILY [facility] Administration Polyethylene Glycol 17 gm 11/09/16 10:00 11/20/16 09:48 Miralax (For Daily Use) - PO Not Given DAILY [facility] Polysaccharide Iron Complex 150 mg 11/11/16 10:00 11/20/16 09:48 Niferex-150 - PO 150 mg DAILY [facility] Administration Trazodone HCl 100 mg 11/08/16 22:00 11/20/16 21:38 Desyrel - PO 100 mg HS [facility] Administration Vancomycin HCl 1,000 mg 11/20/16 11:00 11/20/16 11:56 Vancomycin (Pre-Docked) IVPB 1,000 mg DAILY@1100 [facility] Administration Protocol Warfarin Sodium 5 mg 11/20/16 20:00 11/20/16 21:39 Coumadin - PO 5 mg DAILY@1800 [facility] Administration A/P 41 y/o patient with reurrent thrombosis of bypass graft. s/p thrombectomy thrombophilia w/u -- ACL/anti b2 glycoprotein abs negative. Prothrombin gene [id number] neg. Factor V leiden. Protein C --nl Protein S free --mildly low --will need repeat testing ATIII could not be tested as patient is on heparin on coumadin/ASA anemia--low iron saturation --? menorrhagia/? gi source- on niferex 150mg daily low [id number]--hdvthfu B12 1000mcg daily s/p PRBCs 11/19 need close outpatient urogynecology physician/gi f/u---discussed this in great detail with patient, explained that we would need to r/o occult malignancy will consult GI
[2016-11-20] MEDS: ATORVASTATIN CA 20 MG TABLET (FP) PO SCH (21:38)
[2016-11-20] MEDS: traZODone HCL 50 MG TABLET (FP) PO SCH (21:38)
[2016-11-20] MEDS: MICONAZOLE NITRATE 2% VAGINAL CREAM 45 GM TUBE VG SCH (21:39)
[2016-11-20] MEDS: WARFARIN NA 5 MG TABLET (UD) PO SCH (21:39)
[2016-11-20] MEDS: INSULIN DETEMIR 100 UNITS/ML MDV SQ SCH (22:19)
[2016-11-21] MEDS: HYDROmorphone HCL CARPU-JECT 1 MG/1 ML DISP.SYRIN IVPB PRN ×3 (01:02→21:33)
[2016-11-21] MEDS: INSULIN SLIDING SCALE (NOVOLOG) 1 VIAL SQ SCH ×4 (06:19→22:57)
[2016-11-21 10:07] LABS: ALBUMIN 2.8 g/dl (3.4-5.0); BILIRUBIN,TOTAL 0.3 mg/dL (0.2-1.0); CREATININE 1.5 mg/dL (0.55-1.02); TOT PROT 7.1 g/dl (6.4-8.2)
[2016-11-21 10:23] LABS: INR 1.77 (0.82-1.09); PROTHROMBIN TIME (PATIENT) 19.7 SEC (9.98-11.88)
[2016-11-21] MEDS: LORazepam 0.5 MG TABLET PO SCH ×2 (10:29→21:31)
[2016-11-21] MEDS: CYANOCOBALAMIN 1,000 MCG TABLET (FP) PO SCH (10:29)
[2016-11-21] MEDS: LOSARTAN POTASSIUM 50 MG TABLET (FP) PO SCH (10:29)
[2016-11-21] MEDS: DULoxetine HCL 30 MG CAPSULE.DR (FP) PO SCH (10:29)
[2016-11-21] MEDS: CYCLOBENZAPRINE HCL 10 MG TABLET (FP) PO SCH ×2 (10:29→21:31)
[2016-11-21] MEDS: DOCUSATE SODIUM 100 MG CAPSULE (FP) PO SCH ×2 (10:29→21:31)
[2016-11-21] MEDS: ASPIRIN 81 MG CHEWABLE TABLETS PO SCH (10:29)
[2016-11-21] MEDS: PANTOPRAZOLE 40 MG TABLET (FP) PO SCH (10:29)
[2016-11-21] MEDS: POLYETHYLENE GLYCOL 3350 119 GM BTL PO SCH (10:30)
[2016-11-21] MEDS: BUDESONIDE/FORMETEROL FUMARATE 80/4.5 mcg INHALER IH SCH ×2 (10:33→22:57)
[2016-11-21] MEDS: VANCOMYCIN 1 GRAM (PRE-DOCKED) 1,000 MG/250 ML BAG IVPB SCH (10:51)
[2016-11-21] MEDS: IRON POLYSACCHARIDES 150 MG CAPSULE PO SCH (10:51)
[2016-11-21 12:18] LABS: BASOPHIL 1.2 % (0-2.0); EOSINOPHIL 9.8 % (0-4.5); MCH 26.8 pg (25.7-33.7); MCHC 31.9 g/dl (32.0-36.0); MEAN CELL VOLUME 83.9 fl (80-96); MEAN PLT VOLUME 8.4 fl (7.5-11.1); NEUTROPHILS 61.4 % (42.8-82.8); PLATELET COUNT 404 K/MM3 (134-434); RDW 19.6 % (11.6-15.6); WHITE BLOOD COUNT 11.1 K/mm3 (4.0-10.0)
--- NOTE | 2016-11-21 15:04 | PN ---
Progress Note, Physician Chief Complaint: AWAKE ALERT, PAIN UNDER CONTROL WITH DILAUDID, I EXPLAINED TO HER SHE WILL NEED TO TOLERATE PAIN WITH PO OXYCODONE. WE CAN NOT CONTINUE DILAUDID IV. - Current Medication List Current Medications: Active Medications Acetaminophen (Tylenol -) 650 mg PO Q6H PRN PRN Reason: FEVER OR PAIN Aspirin (Asa -) 81 mg PO DAILY [facility] Last Admin: 11/21/16 10:29 Dose: 81 mg Atorvastatin Calcium (Lipitor -) 20 mg PO HS [facility] Last Admin: 11/20/16 21:38 Dose: 20 mg Budesonide/Formoterol Fumarate (Symbicort 80/4.5mcg -) 2 puff IH BID [facility] Last Admin: 11/21/16 10:33 Dose: 2 puff Cyanocobalamin (Vitamin B12 -) 1,000 mcg PO DAILY [facility] Last Admin: 11/21/16 10:29 Dose: 1,000 mcg Cyclobenzaprine HCl (Flexeril -) 10 mg PO BID [facility] Last Admin: 11/21/16 10:29 Dose: 10 mg Diltiazem HCl (Cardizem Cd -) 120 mg PO DAILY [facility] Last Admin: 11/21/16 10:29 Dose: 120 mg Docusate Sodium (Colace -) 100 mg PO BID [facility] Last Admin: 11/21/16 10:29 Dose: 100 mg Duloxetine HCl (Cymbalta -) 30 mg PO DAILY [facility] Last Admin: 11/21/16 10:29 Dose: 30 mg Emollient Ointment (Aquaphor -) 1 applic TP BID PRN Hydromorphone HCl (Dilaudid Injection -) 1 mg IVPB Q6H PRN Last Admin: 11/21/16 10:27 Dose: 1 mg Insulin Aspart (Novolog Vial Sliding Scale -) 1 vial SQ ACHS [facility] PRN Reason: Protocol Last Admin: 11/21/16 11:50 Dose: Not Given Insulin Detemir (Levemir Vial) 25 units SQ HS [facility] Last Admin: 11/20/16 22:19 Dose: 25 units Lorazepam (Ativan -) 0.5 mg PO BID [facility] Last Admin: 11/21/16 10:29 Dose: 0.5 mg Losartan Potassium (Cozaar -) 50 mg PO DAILY [facility] Last Admin: 11/21/16 10:29 Dose: 50 mg Meclizine HCl (Antivert -) 25 mg PO TID PRN PRN Reason: VERTIGO Last Admin: 11/19/16 23:17 Dose: 25 mg Oxycodone HCl (Roxicodone -) 10 mg PO Q6H PRN Last Admin: 11/19/16 16:53 Dose: 10 mg Pantoprazole Sodium (Protonix -) 40 mg PO DAILY [facility] Last Admin: 11/21/16 10:29 Dose: 40 mg Polyethylene Glycol (Miralax (For Daily Use) -) 17 gm PO DAILY [facility] Last Admin: 11/21/16 10:30 Dose: Not Given Polysaccharide Iron Complex (Niferex-150 -) 150 mg PO DAILY [facility] Last Admin: 11/21/16 10:51 Dose: 150 mg Trazodone HCl (Desyrel -) 100 mg PO HS [facility] Last Admin: 11/20/16 21:38 Dose: 100 mg Vancomycin HCl (Vancomycin (Pre-Docked)) 1,000 mg IVPB DAILY@1100 [facility] PRN Reason: Protocol Last Admin: 11/21/16 10:51 Dose: 1,000 mg Warfarin Sodium (Coumadin -) 5 mg PO DAILY@1800 [facility] Last Admin: 11/20/16 21:39 Dose: 5 mg Warfarin Sodium (Coumadin -) 1 mg PO NOW ONE Stop: 11/21/16 14:47 - Objective Vital Signs: Vital Signs Temperature 98.6 F 11/21/16 14:52 Pulse Rate 87 11/21/16 14:52 Respiratory Rate 18 11/21/16 14:52 Blood Pressure 140/99 11/21/16 14:52 O2 Sat by Pulse Oximetry (%) 95 11/21/16 10:40 Constitutional: Yes: No Distress Eyes: Yes: WNL HENT: Yes: WNL Neck: Yes: WNL Cardiovascular: Yes: WNL Respiratory: Yes: WNL Gastrointestinal: Yes: WNL Genitourinary: Yes: WNL Musculoskeletal: Yes: Muscle Pain Extremities: Yes: Other Edema: No Peripheral Pulses WNL: Yes Integumentary: Yes: Rash Wound/Incision: Yes: [place] Intact, Dressing Removed, Reddened Neurological: Yes: Other ...Motor Strength: LLE Psychiatric: Yes: WNL Labs: CBC, BMP 11/21/16 07:30 11/21/16 07:30 INR, PTT INR 1.77 (0.82-1.09) H 11/21/16 07:30 Problem List - Problems (1) Occlusion of graft of lower extremity Code(s): T82.898A - OTH COMPLICATION OF VASCULAR PROSTH DEV/GRFT, INIT Qualifiers: Encounter type: sequela Qualified Code(s): T82.898S - Other specified complication of vascular prosthetic devices, implants and grafts, sequela (2) Arterial occlusion Code(s): I74.9 - EMBOLISM AND THROMBOSIS OF UNSPECIFIED ARTERY (3) Chronic kidney disease (CKD) Code(s): N18.9 - CHRONIC KIDNEY DISEASE, UNSPECIFIED (4) Diabetes mellitus Code(s): E11.9 - TYPE 2 DIABETES MELLITUS WITHOUT COMPLICATIONS Assessment/Plan DC PLANNING WHEN CLEARED BY [facility]OB TO CHAIR WITH ASSIST ADA WITH GLYCEMIC CONTROL DISCUSSED WITH PATIENT [facility] SURGERY F/U APPRECIATED OPERATIVE NOTES AND CHART REVIEWED ANEMIA CHRONIC, MONITOR CAREFULLY WHILE ON AC WEEKLY CBC AT MY OFFICE OUTPATIENT DIFLUCAN PO COUMADIN 5MG, HEPARIN IV UNTIL INR BTWN 2-3, INR 1.74 TODAY GIVE 1MG EXTRA OF COUMADIN NOW INCENTIVE SPIROMETRY WOUND CARE OXYCODONE 10MG Q 4-6HRS PRN DILAUDID IV BREAKTHROUGH PAIN
[2016-11-21] MEDS ORDERED: HYDROmorphone HCL CARPU-JECT 1 MG/1 ML DISP.SYRIN IVPB ONE (15:10)
[2016-11-21] MEDS ORDERED: LIDOCAINE HCL 1%, 10 MG/ML (50 mL VIAL) SQ PRN (16:27)
[2016-11-21] MEDS ORDERED: WARFARIN NA 1 MG TABLET (FP) PO ONE (18:00)
--- NOTE | 2016-11-21 18:04 | PN ---
Progress Note (short form) - Note Progress Note: Pt with pain to her right upper thigh and with occasional drainage. Vital Signs Period Temp Pulse Resp BP Sys/Green Pulse Ox Last 24 Hr 97.3 F-98.7 F 77-89 18-20 140-157/86-99 95-95 PE: left upper thigh: no drainage noted. Staple removed in upper aspect of incision because it was pulling out, small gap where skin edges open in the groin but no drainage. In the upper aspect where it had been draining previously, two more manuel removed after the area was prepped with betadine. The incision line healed well and only one small area opened with sterile suture scissors. (light serous fluid expressed) The upper thigh remains soft and less tender overall. More distal in the thigh it is [place] with tenderness along the suture line. several manuel removed but the incision line is healed. mild erythema. CBC, BMP 03// 07:30 03//17 07:30 A/P: 41 yo female POD#18 s/p aorto- left femoral bypass POD#14 s/p open femoral thrombectomy for thrombosed bypass graft wound draining from upper thigh/area soft with minimal tenderness D/w Dr. Neil and will evaluate the wound tomorrow and access if it needs an aspiration/opening up. Continue IV abx Transition from IV hep-coumadin spoke with the medical team and are making arrangement for VNS at home for INR/ coumadin regulation.
[2016-11-21] MEDS: WARFARIN NA 5 MG TABLET (UD) PO SCH (18:17)
[2016-11-21] MEDS: NYSTATIN POWDER 100,000 UNITS/GM - 15 GM TOPICAL POWDER TP SCH (18:17)
[2016-11-21] MEDS: ATORVASTATIN CA 20 MG TABLET (FP) PO SCH (21:30)
[2016-11-21] MEDS: traZODone HCL 50 MG TABLET (FP) PO SCH (22:56)
[2016-11-21] MEDS: INSULIN DETEMIR 100 UNITS/ML MDV SQ SCH (22:58)
[2016-11-22] MEDS: INSULIN SLIDING SCALE (NOVOLOG) 1 VIAL SQ SCH ×2 (06:54→11:49)
[2016-11-22 07:48] LABS: MCH 26.8 pg (25.7-33.7); MCHC 32.1 g/dl (32.0-36.0); MEAN CELL VOLUME 83.7 fl (80-96); MEAN PLT VOLUME 8.4 fl (7.5-11.1); PLATELET COUNT 373 K/MM3 (134-434); RDW 19.7 % (11.6-15.6); WHITE BLOOD COUNT 11.6 K/mm3 (4.0-10.0)
[2016-11-22 08:12] LABS: INR 1.81 (0.82-1.09); PROTHROMBIN TIME (PATIENT) 20.1 SEC (9.98-11.88)
[2016-11-22 09:26] LABS: CALCIUM 9.1 mg/dL (8.5-10.1); CREATININE 1.5 mg/dL (0.55-1.02)
[2016-11-22 10:31] VITALS: PULSE 89
--- NOTE | 2016-11-22 10:57 | PN ---
Progress Note, Physician Chief Complaint: PATIENT AWAKE MILD-MOD DISTRESS WITH LEFT LEG WOUND PAIN +BM - Current Medication List Current Medications: Active Medications Acetaminophen (Tylenol -) 650 mg PO Q6H PRN PRN Reason: FEVER OR PAIN Aspirin (Asa -) 81 mg PO DAILY [facility] Last Admin: 11/21/16 10:29 Dose: 81 mg Atorvastatin Calcium (Lipitor -) 20 mg PO HS [facility] Last Admin: 11/21/16 21:30 Dose: 20 mg Budesonide/Formoterol Fumarate (Symbicort 80/4.5mcg -) 2 puff IH BID [facility] Last Admin: 11/21/16 22:57 Dose: 2 puff Cyanocobalamin (Vitamin B12 -) 1,000 mcg PO DAILY [facility] Last Admin: 11/21/16 10:29 Dose: 1,000 mcg Cyclobenzaprine HCl (Flexeril -) 10 mg PO BID [facility] Last Admin: 11/21/16 21:31 Dose: 10 mg Diltiazem HCl (Cardizem Cd -) 120 mg PO DAILY [facility] Last Admin: 11/21/16 10:29 Dose: 120 mg Docusate Sodium (Colace -) 100 mg PO BID [facility] Last Admin: 11/21/16 21:31 Dose: 100 mg Duloxetine HCl (Cymbalta -) 30 mg PO DAILY [facility] Last Admin: 11/21/16 10:29 Dose: 30 mg Emollient Ointment (Aquaphor -) 1 applic TP BID PRN Hydromorphone HCl (Dilaudid Injection -) 1 mg IVPB Q6H PRN Last Admin: 11/21/16 21:33 Dose: 1 mg Insulin Aspart (Novolog Vial Sliding Scale -) 1 vial SQ ACHS [facility] PRN Reason: Protocol Last Admin: 11/22/16 06:54 Dose: Not Given Insulin Detemir (Levemir Vial) 25 units SQ HS [facility] Last Admin: 11/21/16 22:58 Dose: 25 units Lidocaine HCl (Xylocaine 1%) 5 ml SQ ONCE PRN PRN Reason: wound Lorazepam (Ativan -) 0.5 mg PO BID [facility] Last Admin: 11/21/16 21:31 Dose: 0.5 mg Losartan Potassium (Cozaar -) 50 mg PO DAILY [facility] Last Admin: 11/21/16 10:29 Dose: 50 mg Meclizine HCl (Antivert -) 25 mg PO TID PRN PRN Reason: [facility]IG[facility] Last Admin: 11/19/16 23:17 Dose: 25 mg Nystatin (Nystop Powder -) 1 applic TP DAILY [facility] Last Admin: 11/21/16 18:17 Dose: 1 applic Oxycodone HCl (Roxicodone -) 10 mg PO Q6H PRN Last Admin: 11/19/16 16:53 Dose: 10 mg Pantoprazole Sodium (Protonix -) 40 mg PO DAILY [facility] Last Admin: 11/21/16 10:29 Dose: 40 mg Polyethylene Glycol (Miralax (For Daily Use) -) 17 gm PO DAILY [facility] Last Admin: 11/21/16 10:30 Dose: Not Given Polysaccharide Iron Complex (Niferex-150 -) 150 mg PO DAILY [facility] Last Admin: 11/21/16 10:51 Dose: 150 mg Trazodone HCl (Desyrel -) 100 mg PO HS [facility] Last Admin: 11/21/16 22:56 Dose: 100 mg Vancomycin HCl (Vancomycin (Pre-Docked)) 1,000 mg IVPB DAILY@1100 [facility] PRN Reason: Protocol Last Admin: 11/21/16 10:51 Dose: 1,000 mg Warfarin Sodium (Coumadin -) 5.5 mg PO DAILY@1800 [facility] - Objective Vital Signs: Vital Signs Temperature 98.5 F 11/22/16 06:00 Pulse Rate 89 11/22/16 10:31 Respiratory Rate 18 11/22/16 06:00 Blood Pressure 129/90 11/22/16 06:00 O2 Sat by Pulse Oximetry (%) 96 11/22/16 10:31 Constitutional: Yes: Mild Distress Eyes: Yes: WNL HENT: Yes: WNL Neck: Yes: WNL Cardiovascular: Yes: WNL Respiratory: Yes: WNL Gastrointestinal: Yes: WNL Genitourinary: Yes: WNL Musculoskeletal: Yes: Muscle Pain Extremities: Yes: Erythema, Other Edema: No Peripheral Pulses WNL: Yes Integumentary: Yes: Other Wound/Incision: Yes: [place] Intact, Draining Neurological: Yes: Pre-Existing Deficit ...Motor Strength: LLE Psychiatric: Yes: WNL Labs: CBC, BMP 11/22/16 06:45 11/22/16 06:45 INR, PTT INR 1.81 (0.82-1.09) H 11/22/16 06:45 Problem List - Problems (1) Occlusion of graft of lower extremity Code(s): T82.898A - [facility] COMPLICATION OF VASCULAR PROSTH DEV/GRFT, INIT Qualifiers: Encounter type: sequela Qualified Code(s): T82.898S - Other specified complication of vascular prosthetic devices, implants and grafts, sequela (2) Arterial occlusion Code(s): I74.9 - EMBOLISM AND THROMBOSIS OF UNSPECIFIED ARTERY (3) Chronic kidney disease (CKD) Code(s): N18.9 - CHRONIC KIDNEY DISEASE, UNSPECIFIED (4) Diabetes mellitus Code(s): E11.9 - TYPE 2 DIABETES MELLITUS WITHOUT COMPLICATIONS Assessment/Plan INR 1.81, COUMADIN INCREASED 5.5MG DAILY DC PLANNING PENDING SURGICAL FOLLOW-UP IV ABX ID F/U
[2016-11-22] MEDS: PANTOPRAZOLE 40 MG TABLET (FP) PO SCH (11:26)
[2016-11-22] MEDS: ASPIRIN 81 MG CHEWABLE TABLETS PO SCH (11:26)
[2016-11-22] MEDS: DULoxetine HCL 30 MG CAPSULE.DR (FP) PO SCH (11:26)
[2016-11-22] MEDS: CYCLOBENZAPRINE HCL 10 MG TABLET (FP) PO SCH (11:26)
[2016-11-22] MEDS: CYANOCOBALAMIN 1,000 MCG TABLET (FP) PO SCH (11:26)
[2016-11-22] MEDS: LOSARTAN POTASSIUM 50 MG TABLET (FP) PO SCH (11:26)
[2016-11-22] MEDS: POLYETHYLENE GLYCOL 3350 119 GM BTL PO SCH (11:27)
[2016-11-22] MEDS: NYSTATIN POWDER 100,000 UNITS/GM - 15 GM TOPICAL POWDER TP SCH (11:27)
[2016-11-22] MEDS: DOCUSATE SODIUM 100 MG CAPSULE (FP) PO SCH (11:27)
[2016-11-22] MEDS: IRON POLYSACCHARIDES 150 MG CAPSULE PO SCH (11:27)
[2016-11-22] MEDS: BUDESONIDE/FORMETEROL FUMARATE 80/4.5 mcg INHALER IH SCH (11:28)
[2016-11-22] MEDS: LORazepam 0.5 MG TABLET PO SCH (11:35)
[2016-11-22] MEDS: oxyCODONE HCL 5 MG TABLET PO PRN (11:43)
[2016-11-22] MEDS: VANCOMYCIN 1 GRAM (PRE-DOCKED) 1,000 MG/250 ML BAG IVPB SCH (11:48)
--- NOTE | 2016-11-22 14:29 | PN ---
Progress Note (short form) - Note Progress Note: doing well seen by surgery good for d/c home day #3 vancomycin Vital Signs Period Temp Pulse Resp BP Sys/Green Pulse Ox Last 24 Hr 97.3 F-98.6 F 78-89 18-20 129-151/82-99 95-96 cor-rrr lungs clear abd soft,nt harvest site with no erythema, minimal drainage incision is healing CBC, BMP 11/22/16 06:45 11/22/16 06:45 Microbiology 11/20/16 10:50 Blood - Peripheral Venous Blood Culture - Preliminary NO GROWTH OBTAINED AFTER 48 HOURS, INCUBATION TO CONTINUE FOR 3 DAYS. 11/20/16 10:40 Blood - Peripheral Venous Blood Culture - Preliminary NO GROWTH OBTAINED AFTER 48 HOURS, INCUBATION TO CONTINUE FOR 3 DAYS. 11/20/16 10:20 Thigh - Left Gram Stain - Final 11/20/16 10:20 Thigh - Left Wound Culture - Preliminary Group D Strep Or Entero Coccus Diphtheroid/Corynebacterium Staphylococcus Coagulase Neg 11/17/16 15:30 Incision Gram Stain - Final 11/17/16 15:30 Incision Wound Culture - Final Enterococcus Faecalis Staphylococcus Coagulase Neg Diphtheroid/Corynebacterium a/p healing harvest site incision- drainage much less suggest 5 days of augmentin to complete one week has improved on vancomycin
[2016-11-22 14:36] VITALS: BP 140/84; TEMP 98.6
[2016-11-22] MEDS ORDERED: WARFARIN NA PO SCH (18:00)
[2016-11-22] MEDS ORDERED: WARFARIN NA 5 MG TABLET (UD) PO SCH (18:00)
--- NOTE | 2016-11-22 19:34 | DS ---
Physical Examination Vital Signs: Vital Signs Temperature 98.6 F 11/22/16 14:33 Pulse Rate 89 11/22/16 10:31 Respiratory Rate 16 11/22/16 14:33 Blood Pressure 140/84 11/22/16 14:33 O2 Sat by Pulse Oximetry (%) 96 11/22/16 10:31 Findings/Remarks: see progress note Labs: CBC, BMP 11/22/16 06:45 11/22/16 06:45 Discharge Summary Reason For Visit: OCCLUSION OF GRAFT OF LOWER EXTREMITY dm htn atherosclerosis protein s defeciency Procedures: Principal: surgery arterial occlusion left lower extremity Other Procedures: ct scan/labs Hospital Course: admitted left leg arterial occlusion surgery done multiple times to return blood supply, in icu and transferred to [facility]. patient will go home with vns and follow up with [facility] surgery Condition: Improved - Instructions Diet, Activity, Other Instructions: diabetic/low sodium Referrals: Carmella Conley MD [Primary Care Provider] - Walter Neil MD [Staff Physician] - Disposition: LONG TERM FACILITY - Home Medications Comprehensive Discharge Medication List: Ambulatory Orders Atorvastatin Ca [Lipitor] 20 mg PO HS 11/21/15 Budesonide [Pulmicort 0.25 mg Nebulizer -] 1 neb PO BID 11/21/15 Liraglutide [Victoza -] 0.6 mg SQ DAILY@0700 11/21/15 Albuterol 0.083% Nebulizer Carolyn [Ventolin 0.083% Nebulizer Soln -] 1 amp NEB Q6HPO amp 12/15/15 Hydroxyzine HCl [Atarax -] 25 mg PO BID PRN 04/15/16 Insulin (Novolog) [Novolog -] 0 units SQ ASDIR 04/15/16 Pregabalin [Lyrica -] 150 mg PO TID 04/15/16 Cholecalciferol (Vitamin D3) [Vitamin D3] 50,000 unit PO WEEKLY 04/16/16 Dapagliflozin Propanediol [Farxiga] 5 mg PO DAILY 04/16/16 Duloxetine HCl [Cymbalta -] 30 mg PO BID #60 capsule. 04/17/16 Aspirin [ASA -] 81 mg PO DAILY tab.chew 07/17/16 Insulin Glargine,Hum.rec.anlog [Lantus (10mL VIAL) -] 55 units SQ AM 12/15/16 Lorazepam [Ativan] 0.5 mg PO Q12H MDD 2 08/17/16 Meclizine HCl [Antivert -] 25 mg PO TID 08/17/16 Trazodone HCl 100 mg PO BID 08/17/16 Acetaminophen [Tylenol .Regular Strength -] 650 mg PO Q6H PRN #0 tablet Aspirin [ASA -] 81 mg PO DAILY #30 tab.chew 11/22/16 Atorvastatin Ca [Lipitor] 20 mg PO HS #30 tablet 11/22/16 Budesonide/Formeterol Fumarate [SYMBICORT 80/4.5mcg -] 2 puff IH BID #1 inhaler 11/22/16 Diltiazem Cd [Cardizem Cd -] 120 mg PO DAILY #30 11/22/16 Docusate Sodium [Colace -] 100 mg PO BID #60 11/22/16 Duloxetine HCl [Cymbalta -] 30 mg PO DAILY #30 11/22/16 Iron Polysaccharides [Niferex-150 -] 150 mg PO DAILY #30 11/22/16 Lorazepam [Ativan] 0.5 mg PO BID #60 tablet MDD 2 11/22/16 Losartan Potassium [Cozaar -] 50 mg PO DAILY #30 tablet 11/22/16 Meclizine HCl [Antivert -] 25 mg PO TID PRN #90 tablet 11/22/16 Mineral Oil/Pet Hy-Phl [Aquaphor -] 1 applic TP BID PRN #180 jar 11/22/16 Nystatin Powder [Nystop Powder -] 1 applic TP DAILY #1 applic 11/22/16 Oxycodone HCl [Roxicodone -] 10 mg PO Q6H PRN #120 tablet MDD 4 11/22/16 Pantoprazole Sodium [Protonix -] 40 mg PO DAILY #30 11/22/16 Polyethylene Glycol 3350 [Miralax 119 gm Btl -] 17 gm PO DAILY #180 bottle 11/22 Trazodone HCl [Desyrel -] 100 mg PO HS #30 tablet 11/22/16 Warfarin Na [Coumadin -] 5.5 mg PO DAILY@1800 #30 tablet 11/22/16
== END 2016-11-22 17:10 | disposition home health service (06) | DRG 169 ==
LOC: JER 16:24 → JERBED 19:00 → UNDOADMIN 19:09 → JERBED 19:09 → J6S 20:41 → JICU 11-03 19:32 → J5S 11-09 23:13 → J8W 11-12 12:15
PROVIDERS: ADMIT Family Medicine; ATTEND Family Medicine
PROC: 0DNW0ZZ Release Peritoneum, Open Approach (ICD-10-PCS; 2016-11-03)
PROC: 06BQ0ZZ Excision of Left Saphenous Vein, Open Approach (ICD-10-PCS; 2016-11-03)
PROC: 30233N1 Transfusion of Nonautologous Red Blood Cells into Peripheral Vein, Percutaneous Approach (ICD-10-PCS; 2016-11-03)
PROC: 30233L1 Transfusion of Nonautologous Fresh Plasma into Peripheral Vein, Percutaneous Approach (ICD-10-PCS; 2016-11-03)
PROC: 30233K1 Transfusion of Nonautologous Frozen Plasma into Peripheral Vein, Percutaneous Approach (ICD-10-PCS; 2016-11-03)
PROC: 041 Lower Arteries, Bypass (ICD-10-PCS; principal; 2016-11-03 15:00)
PROC: 04CL0ZZ Extirpation of Matter from Left Femoral Artery, Open Approach (ICD-10-PCS; 2016-11-06)
PROC: B41G1ZZ Fluoroscopy of Left Lower Extremity Arteries using Low Osmolar Contrast (ICD-10-PCS; 2016-11-06)
DX: T82.868A Thrombosis due to vascular prosthetic devices, implants and grafts, initial encounter (principal); N17.9 Acute kidney failure, unspecified; E87.0 Hyperosmolality and hypernatremia; D68.59 Other primary thrombophilia; E11.22 Type 2 diabetes mellitus with diabetic chronic kidney disease; J44.9 Chronic obstructive pulmonary disease, unspecified; E11.40 Type 2 diabetes mellitus with diabetic neuropathy, unspecified; E66.9 Obesity, unspecified; Z68.32 Body mass index [BMI] 32.0-32.9, adult; K56.7 Ileus, unspecified; I12.9 Hypertensive chronic kidney disease with stage 1 through stage 4 chronic kidney disease, or unspecified chronic kidney disease; N18.9 Chronic kidney disease, unspecified; L76.32 Postprocedural hematoma of skin and subcutaneous tissue following other procedure; E78.5 Hyperlipidemia, unspecified; Z87.891 Personal history of nicotine dependence; I25.2 Old myocardial infarction; F41.9 Anxiety disorder, unspecified; I25.10 Atherosclerotic heart disease of native coronary artery without angina pectoris; Z86.73 Personal history of transient ischemic attack (TIA), and cerebral infarction without residual deficits; Z79.4 Long term (current) use of insulin; I74.5 Embolism and thrombosis of iliac artery; Y83.8 Other surgical procedures as the cause of abnormal reaction of the patient, or of later complication, without mention of misadventure at the time of the procedure; N92.0 Excessive and frequent menstruation with regular cycle; K66.0 Peritoneal adhesions (postprocedural) (postinfection); Z95.5 Presence of coronary angioplasty implant and graft; T50.8X5A Adverse effect of diagnostic agents, initial encounter; D63.8 Anemia in other chronic diseases classified elsewhere; K21.9 Gastro-esophageal reflux disease without esophagitis
CPT/HCPCS: 36415; 36430; 76000-TC; 80048; 80053; 80061; 81003; 81015; 81240; 81241; 82272; 82542; 82550; 82553; 82607; 82728; 82747; 83010; 83036; 83540; 83550; 83605; 83615; 83721; 83735; 84100; 84484; 84703; 85014; 85025; 85027; 85302; 85303; 85305; 85306; 85610; 85613; 85730; 85732; 86022; 86146; 86850; 86880; 86900; 86901; 86922; 87040; 87070; 87186; 87205; 93005; 93010; 93970-TC; 94010; 94640; 94760; 97116-GP; 97162-PG; 99283-25; J1644; P9017; P9038; P9058

== ENCOUNTER 2018-01-18 10:43 | Inpatient (IN) | payer OTHER ==
--- NOTE | 2018-01-18 11:03 | PDOC ---
History of Present Illness <Maxwell Chandler - Last Filed: 01/18/18 15:18> - General History Source: Patient Exam Limitations: No Limitations - History of Present Illness Initial Comments: 01/18/18 17:11 The patient is a 43 year old female, with a significant past medical history of asthma, WA(s/p stent), CVA, diabetes, hypertension, hyperlipidemia, CKD(not on dialysis), diverticulitis(perforated bowel), DVT, protein C deficiency (on coumadin), and anxiety, who presents to the emergency department s/p mechanical fall 6 days ago. The patient reports waking up at baseline on mothers day, and at some point in the day she walked from her living room to the bathroom, tripped over a wire, landed on her right knee(sustained abrasion) and subsequently fell backward. Patient denies any LOC, headache, dizziness, changes in vision, neck or back pain s/p fall. However, patient states she was unable to get up on her own secondary to left hip and foot pain, and had to call her to help her walk over to her bed. Patient reports she has been in bed since, and is only able to force herself to ambulate with a walker to go to the bathroom. She reports associated weakness, numbness and tingling in her left leg, which she states is different from her diabetic neuropathy. She denies any chest pain, shortness of breath, diaphoresis, or palpitations. She denies any fever, chills, or recent weight loss. She denies any abdominal pain, nausea, or vomiting. She denies any dysuria, hematuria, frequency, or urgency. Allergies: NKDA Past Surgical History: Cardiac stent, perforated bowel repair, hernia repair, tubal ligation Social History: Non smoker. No ETOH or recreational drug use. <Jarrett Kohler - Last Filed: 01/18/18 17:12> - General Chief Complaint: Injury Stated Complaint: FALL Time Seen by Provider: 01/18/18 11:01 Past History - Past Medical History Anemia: No Asthma: Yes Cancer: No Cardiac Disorders: Yes (mild heart attack, 1 stent) CVA: Yes (01/2015) COPD: No CHF: No Dementia: No Diabetes: Yes GI Disorders: Yes (perforated bowel,divertic) Disorders: Yes (Chronic kidney disease,not on dialysis) HTN: Yes Hypercholesterolemia: Yes Liver Disease: No Psychiatric Problems: Yes (anxiety) Seizures: No Thyroid Disease: No - Surgical History Abdominal Surgery: Yes (perforated bowel,hernia repair) Appendectomy: No Cardiac Surgery: Yes (stent ,bypass) Cholecystectomy: Yes Lung Surgery: No Neurologic Surgery: No Orthopedic Surgery: No - Family Disease History Family Disease History: Diabetes: Father, Mother, Heart Disease: Father - Reproductive History Tubal Ligation: Yes (2003) - Immunization History Immunization Up to Date: Yes - Suicide/Smoking/Psychosocial Hx Smoking Status: No Smoking History: Never smoked Have you smoked in the past 12 months: No Number of Cigarettes Smoked Daily: 5 If you are a former smoker, when did you quit?: 10 ya Information on smoking cessation initiated: No 'Breaking Loose' booklet given: 07/14/17 Hx Alcohol Use: No Drug/Substance Use Hx: No Substance Use Type: None Hx Substance Use Treatment: No <Maxwell Chandler - Last Filed: 01/18/18 15:18> <Jarrett Kohler - Last Filed: 01/18/18 17:12> - Past Medical History Allergies/Adverse Reactions: Allergies Allergy/AdvReac Type Severity Reaction Status Date / Time No Known Drug Allergies Allergy Verified 01/18/18 10:58 Home Medications: Ambulatory Orders Budesonide [Pulmicort 0.25 mg Nebulizer -] 1 neb PO BID 11/21/15 Liraglutide [Victoza -] 1.2 unit SQ DAILY@0700 11/21/15 Albuterol 0.083% Nebulizer Carolyn [Ventolin 0.083% Nebulizer Soln -] 1 amp NEB Q6HPO amp 12/15/15 Insulin (Novolog) [Novolog -] 0 units SQ ASDIR 04/15/16 Pregabalin [Lyrica -] 150 mg PO TID 04/15/16 Cholecalciferol (Vitamin D3) [Vitamin D3] 50,000 unit PO WEEKLY 04/16/16 Insulin Glargine,Hum.rec.anlog [Lantus (10mL VIAL) -] 65 units SQ AM 08/17/16 Meclizine HCl [Antivert -] 25 mg PO TID 08/17/16 Acetaminophen [Tylenol .Regular Strength -] 650 mg PO Q6H PRN #0 tablet Atorvastatin Ca [Lipitor] 20 mg PO HS #30 tablet 11/22/16 Docusate Sodium [Colace -] 100 mg PO BID #60 11/22/16 Iron Polysaccharides [Niferex-150 -] 150 mg PO DAILY #30 11/22/16 LORazepam [Ativan] 0.5 mg PO BID #60 tablet MDD 2 11/22/16 Meclizine HCl [Antivert -] 25 mg PO TID PRN #90 tablet 11/22/16 Mineral Oil/Pet Hy-Phl [Aquaphor -] 1 applic TP BID PRN #180 jar 11/22/16 Nystatin Powder [Nystop Powder -] 1 applic TP DAILY #1 applic 11/22/16 Polyethylene Glycol 3350 [Miralax 119 gm Btl -] 17 gm PO DAILY #180 bottle 11/22 oxyCODONE HCL [Roxicodone -] 10 mg PO Q6H PRN #120 tablet MDD 4 11/22/16 Warfarin Na [Coumadin -] 5 mg PO DAILY@1800 01/18/18 Review of Systems - Review of Systems Able to Perform ROS?: Yes Comments:: 01/18/18 17:11 Constitutional: Pt denies Fever, Chills, weakness HEENT: Denies vision changes, sore throat Respiratory: Denies cough, sob, hemoptysis Cardiac: Denies chest pain, palpitations, lightheadedness, leg swelling Abd/GI: Denies abd pain, nausea, vomiting, blood per rectum, melena, diarrhea : Denies dysuria, frequency, discharge Musculoskeletal: +Left hip leg pain, Denies back pain, joint swelling Skin: +Right knee abrasion. Denies bruising, erythema, rash Neurological: +Left leg numbness and tingling, left leg weakness secondary to pain. Denies headache, ataxia, weakness Hematologic: Denies anemia, easy bruising, easy bleeding <Jose FGiomilsy - Last Filed: 01/18/18 17:12> *Physical Exam - Vital Signs Last Vital Signs Temp Pulse Resp BP Pulse Ox 98.3 F 71 18 113/85 100 01/18/18 10:43 01/18/18 10:43 01/18/18 10:43 01/18/18 10:43 01/18/18 10:43 <Maxwell Chandler - Last Filed: 01/18/18 15:18> - Vital Signs Last Vital Signs Temp Pulse Resp BP Pulse Ox 98.3 F 109 H 20 114/76 99 01/18/18 10:43 01/18/18 13:30 01/18/18 13:30 01/18/18 13:30 01/18/18 13:30 - Physical Exam Comments: 01/18/18 17:11 GENERAL: The patient is awake, alert, and fully oriented, Nontoxic - in no acute distress. HEAD: Normocephalic, atraumatic. EYES: extraocular movements intact, sclera anicteric, conjunctiva clear. ENT: Normal voice, Moist mucous membranes. NECK: Normal range of motion, supple LUNGS: Breath sounds equal, clear to auscultation bilaterally. No wheezes, no rhonchi, no rales. HEART: Regular rate and rhythm, normal S1 and S2 without murmur, rub or gallop. ABDOMEN: Soft, nontender, normoactive bowel sounds. No guarding, no rebound. No CVA tenderness NEUROLOGICAL: No facial assymetry, Normal speech, diminished sensation on the lateral aspect of her left leg, +unable to dorsiflex L leg, noraml plantar flexion, hip flexion (although limited due to pain). MSK: mass/tenderness in the L buttock/hip BACK: No focal tendenress in the posterior spine, PSYCH: Normal mood, normal affect. SKIN: Warm, Dry, normal turgor, <Kohler,Giomilsy - Last Filed: 01/18/18 17:12> Heart Score/ECG Review - ECG Impressions Comment:: 01/18/18 11:33 Twelve-lead EKG was performed and reviewed by me. There is normal sinus rhythm with a rate of 108 T wave inversions in the anterior leads, these are new when compared with previous EKG dated 07/17/2017 <Maxwell Chandler - Last Filed: 01/18/18 15:18> ED Treatment Course - LABORATORY CBC & Chemistry Diagram: 01/18/18 11:17 01/18/18 11:17 - RADIOLOGY Radiology Studies Ordered: Category Date Time Status CHEST X-RAY PORTABLE* [RAD] Stat Radiology 01/18/18 11:02 Ordered HIP & PELVIS-LEFT [RAD] Stat Radiology 01/18/18 11:02 Ordered <Maxwell Chandler - Last Filed: 01/18/18 15:18> - LABORATORY CBC & Chemistry Diagram: 01/18/18 11:17 01/18/18 11:17 - ADDITIONAL ORDERS Additional order review: Laboratory Results 01/18/18 01/18/18 11:17 11:17 PT with INR 12.30 INR 1.09 D Sodium 135 L Potassium 4.7 Chloride 99 Carbon Dioxide 26 Anion Gap 10 BUN 22 H Creatinine 2.3 H Creat Clearance w eGFR 22.93 Random Glucose 224 H Calcium 8.9 Total Bilirubin 0.4 D AST 145 H ALT 55 Alkaline Phosphatase 268 H Creatine Kinase 3974 H Creatine Kinase Index 0.1 CK-MB (CK-2) 8.001 H Troponin I 1.08 H* B-Natriuretic Peptide 60138.56 H Total Protein 7.0 Albumin 2.5 L 01/18/18 11:17 RBC 4.12 MCV 76.8 L MCHC 30.0 L RDW 20.1 H D MPV 8.9 Neutrophils % 79.4 Lymphocytes % 13.9 Monocytes % 5.3 Eosinophils % 0.9 D Basophils % 0.5 - Medications Given in the ED: ED Medications Discontinued Medications Generic Name Dose Route Start Last Admin Trade Name Byronq PRN Reason Stop Dose Admin Aspirin 162 mg 01/18/18 13:07 01/18/18 13:44 Asa - PO 01/18/18 13:08 162 mg ONCE ONE Administration Heparin Sodium (Porcine) 5,000 unit 01/18/18 13:06 01/18/18 13:44 Heparin - IVPUSH 01/18/18 13:07 5,000 unit ONCE ONE Administration Heparin Sodium/Dextrose 25,000 units in 500 mls @ 16 mls/hr 01/18/18 13:15 14:29 Heparin Infusion - IVPB Not Given TITR MICK Protocol 800 UNITS/HR Morphine Sulfate 2 mg 01/18/18 15:19 01/18/18 15:34 Morphine Injection - IVPUSH 01/18/18 15:20 2 mg ONCE ONE Administration Oxycodone/Acetaminophen 2 combo 01/18/18 12:16 01/18/18 12:28 Percocet 5/325 - PO 01/18/18 12:17 2 combo ONCE ONE Administration <Kohler,Giomplacidoy - Last Filed: 01/18/18 17:12> Medical Decision Making - Medical Decision Making 01/18/18 11:10 43y F hl, htn, cad, ckd, cva, protein C deficiency on coumadin presents wit hL hip pain. Pt states she had a mechanical fall 4 days ago, tripping on a wire in her living room, landing n her R knee and falling backwrads, denies any head injury, preceeding, cp, sob,n/v, palpitations. Pt needed assistance to be carried back to her bed and has not been able walk around since then. on exam pt has decreased senation on the lateral aspect of her LLE, +hematoma on her L buttock will ck xray to r/o fx her symptoms w/ L foot drop and defecitis in sensation c/w with a mononeuropathy (no assoc back pain), may be related to her fall/hemaotma ekg noted for TWI in anterior leads that are new - denies cp/sob or anginal sypmtoms, but will r/o WA will put put on monitor PMD: Ricardo 01/18/18 12:54 The patient's blood work was reviewed, troponin is positive to 1.08 We'll start the patient on anticoagulation, she has no active chest pain, she does have T-wave inversions in the anterior leads with no signs of ST depressions or elevations. Concern for NSTEMI 01/18/18 13:54 nuria schmid will admit for further management will notify dr. Shannan salomon cardiology pt is on warfarin, but is subtherapteutic will start heparin gtt Case discussed in detail with admitting physician including history, physical exam and ancillary studies. Admitting physician has assumed care for the patient, will follow all pending diagnostics and will complete the evaluation and treatment. CRITICAL CARE DOCUMENTATION: I spent ~35 minutes of Critical Care time, excluding separately billable procedures, involving high complexity decision making to assess, manipulate and support vital system function(s) to treat single or multiple vital organ system failure and/or to prevent further life threatening deterioration of the patient' s condition. 01/18/18 14:[address] colon (cardiology) recommends heparin if only due to her being subtherapeutic on coumadin will be by to see pt. still no cp on reevaluation <Maxwell Chandler - Last Filed: 01/18/18 15:18> - Medical Decision Making 01/18/18 15:36 First call placed to Dr. Silva at 15:36. Case discussed at this time. <Jarrett Kohler - Last Filed: 01/18/18 17:12> *DC/Admit/Observation/Transfer - Discharge Dispostion Decision to Admit order: Yes <Maxwell Chandler - Last Filed: 01/18/18 15:18> - Attestations Scribe Attestion: 01/18/18 17:12 Documentation prepared by Jarrett Kohler, acting as chief medical physicist for Maxwell Chandler MD. <Jarrett Kohler - Last Filed: 01/18/18 17:12> Diagnosis at time of Disposition: NSTEMI (non-ST elevated myocardial infarction) Peripheral neuropathy Qualifiers: Peripheral neuropathy type: mononeuropathy, other Qualified Code(s): G58.8 - Other specified mononeuropathies - Discharge Dispostion Condition at time of disposition: Stable
[2018-01-18 11:55] LABS: BASO % 0.5 % (0-2.0); EOS % 0.9 % (0-4.5); HEMATOCRIT 31.6 % (32.4-45.2); HEMOGLOBIN 9.5 GM/dL (10.7-15.3); LYMPH % 13.9 % (8-40); MCH 23.1 pg (25.7-33.7); MEAN CELL VOLUME 76.8 fl (80-96); MEAN PLT VOLUME 8.9 fl (7.5-11.1); MONO % 5.3 % (3.8-10.2); NEUT % 79.4 % (42.8-82.8); PLATELET COUNT 365 K/MM3 (134-434); RBC 4.12 M/mm3 (3.60-5.2); RDW 20.1 % (11.6-15.6); WHITE BLOOD COUNT 15.1 K/mm3 (4.0-10.0)
[2018-01-18 12:05] LABS: INR 1.09 (0.82-1.09); PROTHROMBIN TIME (PATIENT) 12.3 SEC (9.7-13.0)
[2018-01-18 12:23] LABS: ALBUMIN 2.5 g/dl (3.4-5.0); ANION GAP 10 (8-16); BLOOD UREA NITROGEN 22 mg/dL (7-18); CALCIUM 8.9 mg/dL (8.5-10.1); CHLORIDE 99 mmol/L (98-107); CO2 26 mmol/L (21-32); CREATININE 2.3 mg/dL (0.55-1.02); GLUCOSE,RANDOM 224 mg/dL (74-106); POTASSIUM 4.7 mmol/L (3.5-5.1); SGOT/AST 145 U/L (15-37); SGPT/ALT 55 U/L (12-78); SODIUM 135 mmol/L (136-145)
[2018-01-18 12:43] LABS: ALK PHOS 268 U/L (45-117); BILIRUBIN,TOTAL 0.4 mg/dL (0.2-1.0); N-TERMINAL BNP 12312.56 pg/ml (5-125)
[2018-01-18] MEDS ORDERED: HEPARIN NA (PORCINE) 5,000 UNITS/ML 1ML VIAL IVPUSH ONE (13:06)
[2018-01-18] MEDS ORDERED: ASPIRIN 81 MG CHEWABLE TABLETS PO ONE (13:07)
[2018-01-18] MEDS ORDERED: ASPIRIN 81 MG CHEWABLE TABLETS ONE (13:11)
[2018-01-18] MEDS ORDERED: HEPARIN NA (PORCINE) 5,000 UNITS/ML 1ML VIAL ONE (13:11)
[2018-01-18] MEDS ORDERED: HEPARIN INFUSION - 25,000 UNITS/500 ML INFUS.BAG IVPB SCH (13:15)
[2018-01-18] MEDS: HEPARIN INFUSION - 25,000 UNITS/500 ML INFUS.BAG IVPB SCH ×2 (13:45→23:21)
[2018-01-18] MEDS ORDERED: morphine CARPU-JECT 2 MG/1 ML DISP.SYRIN IVPUSH ONE (15:19)
[2018-01-18] MEDS ORDERED: MINERAL OIL/PET HY-PHL TOPICAL OINTMENT 454 GM JAR TP PRN (15:23)
[2018-01-18] MEDS ORDERED: MECLIZINE HCL 25 MG TABLET (FP) PO PRN (15:23)
[2018-01-18] MEDS ORDERED: MORPHINE SULFATE 10 MG/1 ML *VIAL ONE (15:26)
--- NOTE | 2018-01-18 15:47 | CON.CARD ---
Consult Consult Specialty:: Cardiology Referred by:: Dr Silva Reason for Consultation:: elevated troponin - History of Present Illness Chief Complaint: fall leg pain History of Present Illness: She is a 43 year old woman with a history of HTN, Diabetes, hyperlipidemia, CAD s/p PDI 2014, VA 2014, CVA 2014, Protein S deficiency on coumadin, CKD, GERD, DJD, lt hip fx s/p ORIF 2017, multiple LLE revascularizations, bilat stents, admitted after a trip and fall with left leg, hip and knee pain. Denies LOC or chest pain, sob, orthopnea, pnd or edema. Echo 07/08/17: inc ef 70%, mild-mod mr, mild tr, mod phtn Nuclear stress test 12/31/14: small inferolateral infarct, no ischemia EF 63% Now noted with new anterior T wave inversions, elevated troponin and new REBA ( creat 1.1-->2.3). 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 holter then sg=howed rare APCs, TTE and TAWANNA unremarkable), Other (neuropathy) Cardio/Vascular: Yes: [place] [facility] LC[place], 80% small D1 -. med managed), HTN, Hyperlipdemia Pulmonary: Yes: Asthma, COPD Gastrointestinal: Yes: GERD ...LMP: 07/21/16 Musculoskeletal: Yes: Osteoarthritis, Other (herniated disc) Endocrine: Yes: Diabetes Mellitus (for over 20 yr s-. insulin for over 10 yrs) - Past Surgical History Past Surgical History: Yes: Bypass, Hernia Repair ([facility]). No: AV Fistula/ Graft - Alcohol/Substance Use Hx Alcohol Use: No History of Substance Use: reports: None - Smoking History Smoking history: Never smoked Have you smoked in the past 12 months: No Aproximately how many cigarettes per day: 5 If you are a former smoker, when did you quit?: 10 ya - Social History Usual Living Arrangement: With Spouse History of Recent Travel: No Home Medications - Allergies Allergies/Adverse Reactions: Allergies Allergy/AdvReac Type Severity Reaction Status Date / Time No Known Drug Allergies Allergy Verified 01/18/18 10:58 - Home Medications Home Medications: Ambulatory Orders Budesonide [Pulmicort 0.25 mg Nebulizer -] 1 neb PO BID 11/21/15 Liraglutide [Victoza -] 1.2 unit SQ DAILY@0700 11/21/15 Albuterol 0.083% Nebulizer Carolyn [Ventolin 0.083% Nebulizer Soln -] 1 amp NEB Q6HPO amp 12/15/15 Insulin (Novolog) [Novolog -] 0 units SQ ASDIR 04/15/16 Pregabalin [Lyrica -] 150 mg PO TID 04/15/16 Cholecalciferol (Vitamin D3) [Vitamin D3] 50,000 unit PO WEEKLY 04/16/16 Insulin Glargine,Hum.rec.anlog [Lantus (10mL VIAL) -] 65 units SQ AM 08/17/16 Meclizine HCl [Antivert -] 25 mg PO TID 08/17/16 Acetaminophen [Tylenol .Regular Strength -] 650 mg PO Q6H PRN #0 tablet Atorvastatin Ca [Lipitor] 20 mg PO HS #30 tablet 11/22/16 Docusate Sodium [Colace -] 100 mg PO BID #60 11/22/16 Iron Polysaccharides [Niferex-150 -] 150 mg PO DAILY #30 11/22/16 LORazepam [Ativan] 0.5 mg PO BID #60 tablet MDD 2 11/22/16 Meclizine HCl [Antivert -] 25 mg PO TID PRN #90 tablet 11/22/16 Mineral Oil/Pet Hy-Phl [Aquaphor -] 1 applic TP BID PRN #180 jar 11/22/16 Nystatin Powder [Nystop Powder -] 1 applic TP DAILY #1 applic 11/22/16 Polyethylene Glycol 3350 [Miralax 119 gm Btl -] 17 gm PO DAILY #180 bottle 11/22 oxyCODONE HCL [Roxicodone -] 10 mg PO Q6H PRN #120 tablet MDD 4 11/22/16 Warfarin Na [Coumadin -] 5 mg PO DAILY@1800 01/18/18 Family Disease History - Family Disease History Family Disease History: Diabetes: Mother ( in her late 50s ), Sister ( in her 40s of substance abuse), Other: Father (had CAV --. in his 70s) Vital Signs: Vital Signs Temperature 98.3 F 01/18/18 10:43 Pulse Rate 109 H 01/18/18 13:30 Respiratory Rate 20 01/18/18 13:30 Blood Pressure 114/76 01/18/18 13:30 O2 Sat by Pulse Oximetry (%) 99 01/18/18 13:30 Constitutional: Yes: No Distress, Calm Eyes: Yes: Conjunctiva Clear, EOM Intact HENT: Yes: Atraumatic, Normocephalic Neck: Yes: Supple, Trachea Midline Respiratory: Yes: CTA Bilaterally Gastrointestinal: Yes: Normal Bowel Sounds, Soft Renal/: Yes: WNL Cardiovascular: Yes: Regular Rate and Rhythm JVD: No Carotid Bruit: No PMI: Non-Displaced Heart Sounds: Yes: S1, S2 Extremities: Yes: WNL Edema: No Peripheral Pulses WNL: No Peripheral Pulses: 1+ Left Femoral, 1+ Right Femoral, 1+ Left Popliteal, 1+ Right Popliteal, 1+ Left Doralis Pedis, 1+ Right Dorsalis Pedis, 2+ Left Carotid , 2+ Right Carotid - Other Data Labs, Other Data: CBC, BMP 01/18/18 11:17 01/18/18 11:17 INR, PTT INR 1.09 (0.82-1.09) D 01/18/18 11:17 Troponin, BNP 01/18/18 11:17 Troponin I 1.08 H* B-Natriuretic Peptide 26439.56 H Troponin, BNP 01/18/18 11:17 Troponin I 1.08 H* B-Natriuretic Peptide 08073.56 H Imaging - Results Chest X-ray: Report Reviewed (cami) EKG: Report Reviewed (nsr inverted t waves anterior leads. new from 07/20) Problem List - Problems (1) NSTEMI (non-ST elevated myocardial infarction) Assessment/Plan: Elevated troponin may represent subacute VA but there are no symptoms c/w ischemia. This may be a nonischemic pattern due to renal disease. rpt CE's #2,#3 q8h. Echo ordered. Needs IV heparin to bridge to coumadin, not necessarily for elevated troponin. consider DVT and PE workup. She has new Acute on chronic renal failure. Needs renal evaluation. Not a candidate for ischemia workup at this point given renal issues and comorbidities. Add baby aspirin. Add low dose beta tari if bp and HR tolerate. Increase lipitor to 80 mg daily given CAD, PVD and diabetes. Code(s): I21.4 - NON-ST ELEVATION (NSTEMI) MYOCARDIAL INFARCTION
[2018-01-18] MEDS: ALBUTEROL SO4 0.083% IH SOL 2.5 MG/3 ML VIAL.NEB. NEB SCH ×2 (16:24→21:21)
[2018-01-18] MEDS ORDERED: ALBUTEROL SO4 0.083% IH SOL 2.5 MG/3 ML VIAL.NEB. NEB ONE (16:24)
[2018-01-18 19:28] LABS: N-TERMINAL BNP 14275.17 pg/ml (5-125)
[2018-01-18] MEDS: INSULIN SLIDING SCALE (NOVOLOG) 1 VIAL SQ SCH ×2 (19:45→22:18)
[2018-01-18] MEDS: BUDESONIDE 0.25 MG/2ML INH SUSP VIAL NEB SCH (21:37)
[2018-01-18] MEDS: DOCUSATE SODIUM 100 MG CAPSULE (FP) PO SCH (21:56)
[2018-01-18] MEDS: WARFARIN NA 5 MG TABLET (UD) PO SCH (21:56)
[2018-01-18] MEDS: oxyCODONE HCL 5 MG TABLET PO PRN (21:57)
[2018-01-18] MEDS: ATORVASTATIN CA 20 MG TABLET (FP) PO SCH (21:57)
[2018-01-18] MEDS: INSULIN (LEVEMIR) 100 UNITS/ML UNITS SQ SCH (21:57)
[2018-01-18] MEDS: LORazepam 0.5 MG TABLET PO SCH (21:58)
[2018-01-18] MEDS: PREGABALIN 50 MG CAPSULE PO SCH (21:58)
[2018-01-18 23:04] LABS: INR 1.08 (0.82-1.09); PROTHROMBIN TIME (PATIENT) 12.2 SEC (9.7-13.0)
[2018-01-18] MEDS ORDERED: HEPARIN NA (PORCINE) 5,000 UNITS/ML 1ML VIAL IVPUSH PRN (23:13)
[2018-01-18] MEDS: HEPARIN NA (PORCINE) 5,000 UNITS/ML 1ML VIAL IVPUSH PRN (23:21)
--- NOTE | 2018-01-18 23:45 | CONSULT ---
Consult Consult Specialty:: endocrine Referred by:: dr.annabi greer Reason for Consultation:: diabetes mellitus - History of Present Illness Chief Complaint: fall at home pain in left hip History of Present Illness: 43 year old female, with a significant past medical history of diabetesmellitus, asthma, NM(s/p stent), CVA, diabetes, hypertension, hyperlipidemia, CKD(not on dialysis), diverticulitis(perforated bowel), DVT, protein C deficiency (on coumadin), and anxiety, who presents to the emergency department s/p mechanical fall 6 days ago. The patient reports waking up at baseline on mothers day, and at some point in the day she walked from her living room to the bathroom, tripped over a wire, landed on her right knee(sustained abrasion) and subsequently fell backward. 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 holter then sg=howed rare APCs, TTE and TAWANNA unremarkable), Other (neuropathy) Cardio/Vascular: Yes: CAD (cath in 11/[address] [facility] [place]: LCx FLY, 80% small D1 -. med managed), HTN, Hyperlipdemia Pulmonary: Yes: Asthma, COPD Gastrointestinal: Yes: GERD ...LMP: 07/21/16 Musculoskeletal: Yes: Osteoarthritis, Other (herniated disc) Endocrine: Yes: Diabetes Mellitus (for over 20 yr s-. insulin for over 10 yrs) - Past Surgical History Past Surgical History: Yes: Bypass, Hernia Repair ([facility]). No: AV Fistula/ Graft - Alcohol/Substance Use Hx Alcohol Use: No History of Substance Use: reports: None - Smoking History Smoking history: Never smoked Have you smoked in the past 12 months: No Aproximately how many cigarettes per day: 5 If you are a former smoker, when did you quit?: 10 ya - Social History Usual Living Arrangement: With Spouse History of Recent Travel: No Home Medications - Allergies Allergies/Adverse Reactions: Allergies Allergy/AdvReac Type Severity Reaction Status Date / Time No Known Drug Allergies Allergy Verified 01/18/18 10:58 - Home Medications Home Medications: Ambulatory Orders Budesonide [Pulmicort 0.25 mg Nebulizer -] 1 neb PO BID 11/21/15 Liraglutide [Victoza -] 1.2 unit SQ DAILY@0700 11/21/15 Albuterol 0.083% Nebulizer Carolyn [Ventolin 0.083% Nebulizer Soln -] 1 amp NEB Q6HPO amp 12/15/15 Insulin (Novolog) [Novolog -] 0 units SQ ASDIR 04/15/16 Pregabalin [Lyrica -] 150 mg PO TID 04/15/16 Cholecalciferol (Vitamin D3) [Vitamin D3] 50,000 unit PO WEEKLY 04/16/16 Insulin Glargine,Hum.rec.anlog [Lantus (10mL VIAL) -] 65 units SQ AM 08/17/16 Meclizine HCl [Antivert -] 25 mg PO TID 08/17/16 Acetaminophen [Tylenol .Regular Strength -] 650 mg PO Q6H PRN #0 tablet Atorvastatin Ca [Lipitor] 20 mg PO HS #30 tablet 11/22/16 Docusate Sodium [Colace -] 100 mg PO BID #60 11/22/16 Iron Polysaccharides [Niferex-150 -] 150 mg PO DAILY #30 11/22/16 LORazepam [Ativan] 0.5 mg PO BID #60 tablet MDD 2 11/22/16 Meclizine HCl [Antivert -] 25 mg PO TID PRN #90 tablet 11/22/16 Mineral Oil/Pet Hy-Phl [Aquaphor -] 1 applic TP BID PRN #180 jar 11/22/16 Nystatin Powder [Nystop Powder -] 1 applic TP DAILY #1 applic 11/22/16 Polyethylene Glycol 3350 [Miralax 119 gm Btl -] 17 gm PO DAILY #180 bottle 11/22 oxyCODONE HCL [Roxicodone -] 10 mg PO Q6H PRN #120 tablet MDD 4 11/22/16 Warfarin Na [Coumadin -] 5 mg PO DAILY@1800 01/18/18 Family Disease History - Family Disease History Family Disease History: Diabetes: Mother ( in her late 50s ), Sister ( in her 40s of substance abuse), Other: Father (had CAV --. in his 70s) Review of Systems - Review of Systems Constitutional: reports: Lethargy, Weakness Eyes: reports: Blurred Vision HENT: reports: No Symptoms Neck: reports: No Symptoms Cardiovascular: reports: Palpitations, Shortness of Breath Respiratory: reports: Exercise Intolerance, SOB on Exertion Gastrointestinal: reports: Constipation, Nausea Genitourinary: reports: No Symptoms Breasts: reports: No Symptoms Reported Musculoskeletal: reports: Extremity Pain, Muscle Pain, Muscle Cramps, Muscle Weakness Integumentary: reports: No Symptoms Neurological: reports: Numbness, Parasthesia, Pre-Existing Deficit, Unsteady Gait, Weakness Endocrine: reports: Unexplained Weight Gain Psychiatric: reports: Anxiety, Depression Physical Exam Vital Signs: Vital Signs Temperature 98.3 F 01/18/18 10:43 Pulse Rate 103 H 01/18/18 20:11 Respiratory Rate 20 01/18/18 20:11 Blood Pressure 116/64 01/18/18 20:11 O2 Sat by Pulse Oximetry (%) 99 01/18/18 20:11 Constitutional: Yes: Anxious Eyes: Yes: EOM Intact HENT: Yes: Normocephalic Neck: Yes: Trachea Midline Cardiovascular: Yes: Pulse Irregular, Murmur Respiratory: Yes: CTA Bilaterally Gastrointestinal: Yes: Normal Bowel Sounds ...Rectal Exam: Yes: Deferred Breast(s): Yes: WNL Musculoskeletal: Yes: Joint Stiffness, Joint Swelling, Muscle Pain, Muscle Weakness Extremities: Yes: WNL Edema: Yes Neurological: Yes: Alert, Oriented Labs: CBC, BMP 01/18/18 11:17 01/18/18 11:17 Problem List - Problems (1) Type 2 diabetes mellitus with other diabetic kidney complication Code(s): E11.29 - TYPE 2 DIABETES MELLITUS W OTH DIABETIC KIDNEY COMPLICATION (2) Type 2 diabetes mellitus with retinopathy without macular edema Code(s): E11.319 - TYPE 2 DIABETES W UNSP DIABETIC RTNOP W/O MACULAR EDEMA (3) Peripheral neuropathy Code(s): G62.9 - POLYNEUROPATHY, UNSPECIFIED Qualifiers: Peripheral neuropathy type: mononeuropathy, other Qualified Code(s): G58.8 - Other specified mononeuropathies (4) Accidental drug ingestion Code(s): T50.901A - POISONING BY UNSP DRUG/MEDS/BIOL SUBST, ACCIDENTAL, INIT Qualifiers: Encounter type: subsequent encounter Qualified Code(s): T50.901D - Poisoning by unspecified drugs, medicaments and biological substances, accidental (unintentional), subsequent encounter (5) Acute hypoxemic respiratory failure Code(s): J96.01 - ACUTE RESPIRATORY FAILURE WITH HYPOXIA (6) Acute kidney injury superimposed on chronic kidney disease Code(s): N17.9 - ACUTE KIDNEY FAILURE, UNSPECIFIED; N18.9 - CHRONIC KIDNEY DISEASE, UNSPECIFIED (7) Acute radial nerve palsy of right upper extremity Code(s): G56.31 - LESION OF RADIAL NERVE, RIGHT UPPER LIMB (8) Altered mental state Code(s): R41.82 - ALTERED MENTAL STATUS, UNSPECIFIED Qualifiers: Altered mental status type: somnolence Qualified Code(s): R40.0 - Somnolence Assessment/Plan Current Active Problems NSTEMI (non-ST elevated myocardial infarction) (Acute) Peripheral neuropathy (Acute) diabetes mellitus ckd htn hyperlipidemia ashd copd chf Abnormal Lab Results 01/18/18 01/18/18 01/18/18 11:17 11:17 15:34 WBC 15.1 H D Hgb 9.5 L Hct 31.6 L MCV 76.8 L MCH 23.1 L MCHC 30.0 L RDW 20.1 H D Sodium 135 L BUN 22 H Creatinine 2.3 H Random Glucose 224 H AST 145 H Alkaline Phosphatase 268 H Creatine Kinase 3974 H 3207 H CK-MB (CK-2) 8.001 H 6.416 H Troponin I 1.08 H* 0.97 H* B-Natriuretic Peptide 69633.56 H 15591.17 H Albumin 2.5 L Laboratory Results - last 24 hr 01/18/18 01/18/18 01/18/18 11:17 11:17 11:17 WBC 15.1 H D RBC 4.12 Hgb 9.5 L Hct 31.6 L MCV 76.8 L MCH 23.1 L MCHC 30.0 L RDW 20.1 H D Plt Count 365 MPV 8.9 Neutrophils % 79.4 Lymphocytes % 13.9 Monocytes % 5.3 Eosinophils % 0.9 D Basophils % 0.5 PT with INR 12.30 INR 1.09 D PTT (Actin FS) Sodium 135 L Potassium 4.7 Chloride 99 Carbon Dioxide 26 Anion Gap 10 BUN 22 H Creatinine 2.3 H Creat Clearance w eGFR 22.93 POC Glucometer Random Glucose 224 H Calcium 8.9 Total Bilirubin 0.4 D AST 145 H ALT 55 Alkaline Phosphatase 268 H Creatine Kinase 3974 H Creatine Kinase Index 0.1 CK-MB (CK-2) 8.001 H Troponin I 1.08 H* B-Natriuretic Peptide 36856.56 H Total Protein 7.0 Albumin 2.5 L Blood Type Antibody Screen 01/18/18 01/18/18 01/18/18 15:34 15:34 18:15 WBC RBC Hgb Hct MCV MCH MCHC RDW Plt Count MPV Neutrophils % Lymphocytes % Monocytes % Eosinophils % Basophils % PT with INR INR PTT (Actin FS) Sodium Potassium Chloride Carbon Dioxide Anion Gap BUN Creatinine Creat Clearance w eGFR POC Glucometer [phone] Random Glucose Calcium Total Bilirubin AST ALT Alkaline Phosphatase Creatine Kinase 3207 H Creatine Kinase Index 0.2 CK-MB (CK-2) 6.416 H Troponin I 0.97 H* B-Natriuretic Peptide 55208.17 H Total Protein Albumin Blood Type B POSITIVE Antibody Screen Negative 01/18/18 01/18/18 19:33 22:15 WBC RBC Hgb Hct MCV MCH MCHC RDW Plt Count MPV Neutrophils % Lymphocytes % Monocytes % Eosinophils % Basophils % PT with INR INR PTT (Actin FS) 32.8 Sodium Potassium Chloride Carbon Dioxide Anion Gap BUN Creatinine Creat Clearance w eGFR POC Glucometer 247 Random Glucose Calcium Total Bilirubin AST ALT Alkaline Phosphatase Creatine Kinase Creatine Kinase Index CK-MB (CK-2) Troponin I B-Natriuretic Peptide Total Protein Albumin Blood Type Antibody Screen Laboratory Tests 12/12/15 07/16/17 01/18/18 12:32 05:27 18:15 Sodium 137 Potassium 4.9 D Carbon Dioxide 24 Anion Gap 10 BUN 11 POC Glucometer [phone] Hemoglobin A1c % 7.1 H D 01/18/18 22:15 Sodium Potassium Carbon Dioxide Anion Gap BUN POC Glucometer 247 Hemoglobin A1c % plan: bgm ac hs novolog scale levemir 20 units bid check hba1c diet nutrition consult
[2018-01-19] MEDS: PREGABALIN 50 MG CAPSULE PO SCH ×3 (05:55→21:29)
[2018-01-19] MEDS: INSULIN (LEVEMIR) 100 UNITS/ML UNITS SQ SCH ×2 (06:24→21:32)
[2018-01-19] MEDS: INSULIN SLIDING SCALE (NOVOLOG) 1 VIAL SQ SCH ×4 (06:24→21:33)
[2018-01-19 07:04] LABS: BASO % 0.8 % (0-2.0); HEMOGLOBIN 8.6 GM/dL (10.7-15.3); LYMPH % 33.1 % (8-40); MCHC 30.9 g/dl (32.0-36.0); MEAN CELL VOLUME 77.8 fl (80-96); MONO % 7.1 % (3.8-10.2); PLATELET COUNT 338 K/MM3 (134-434); RDW 20.3 % (11.6-15.6)
[2018-01-19 07:16] LABS: INR 1.09 (0.82-1.09); PROTHROMBIN TIME (PATIENT) 12.3 SEC (9.7-13.0)
[2018-01-19 07:44] LABS: ALBUMIN 2.3 g/dl (3.4-5.0); ANION GAP 5 (8-16); BLOOD UREA NITROGEN 29 mg/dL (7-18); CHLORIDE 102 mmol/L (98-107); CHOLESTEROL 156 mg/dL (50-200); CO2 30 mmol/L (21-32); GLUCOSE,RANDOM 138 mg/dL (74-106); POTASSIUM 4.3 mmol/L (3.5-5.1); SGOT/AST 77 U/L (15-37); SODIUM 137 mmol/L (136-145)
--- NOTE | 2018-01-19 07:45 | CON.ORTH ---
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 holter then sg=howed rare APCs, TTE and TAWANNA unremarkable), Other (neuropathy) Cardio/Vascular: Yes: [place] [facility] [place] FLY, 80% small D1 -. med managed), HTN, Hyperlipdemia Pulmonary: Yes: Asthma, COPD Gastrointestinal: Yes: GERD ...LMP: 07/21/16 ...: No Musculoskeletal: Yes: Osteoarthritis, Other (herniated disc) Endocrine: Yes: Diabetes Mellitus (for over 20 yr s-. insulin for over 10 yrs) - Past Surgical History Past Surgical History: Yes: Bypass, Hernia Repair ([facility]). No: AV Fistula/ Graft - Alcohol/Substance Use Hx Alcohol Use: No History of Substance Use: reports: None - Smoking History Smoking history: Former smoker Have you smoked in the past 12 months: No Aproximately how many cigarettes per day: 5 If you are a former smoker, when did you quit?: 10 ya - Social History Usual Living Arrangement: With Spouse History of Recent Travel: No Home Medications - Allergies Allergies/Adverse Reactions: Allergies Allergy/AdvReac Type Severity Reaction Status Date / Time No Known Drug Allergies Allergy Verified 01/18/18 10:58 - Home Medications Home Medications: Ambulatory Orders Budesonide [Pulmicort 0.25 mg Nebulizer -] 1 neb PO BID 11/21/15 Liraglutide [Victoza -] 1.2 unit SQ DAILY@0700 11/21/15 Albuterol 0.083% Nebulizer Carolyn [Ventolin 0.083% Nebulizer Soln -] 1 amp NEB Q6HPO amp 12/15/15 Insulin (Novolog) [Novolog -] 0 units SQ ASDIR 04/15/16 Pregabalin [Lyrica -] 150 mg PO TID 04/15/16 Cholecalciferol (Vitamin D3) [Vitamin D3] 50,000 unit PO WEEKLY 04/16/16 Insulin Glargine,Hum.rec.anlog [Lantus (10mL VIAL) -] 65 units SQ AM 08/17/16 Meclizine HCl [Antivert -] 25 mg PO TID 08/17/16 Acetaminophen [Tylenol .Regular Strength -] 650 mg PO Q6H PRN #0 tablet Atorvastatin Ca [Lipitor] 20 mg PO HS #30 tablet 11/22/16 Docusate Sodium [Colace -] 100 mg PO BID #60 11/22/16 Iron Polysaccharides [Niferex-150 -] 150 mg PO DAILY #30 11/22/16 LORazepam [Ativan] 0.5 mg PO BID #60 tablet MDD 2 11/22/16 Meclizine HCl [Antivert -] 25 mg PO TID PRN #90 tablet 11/22/16 Mineral Oil/Pet Hy-Phl [Aquaphor -] 1 applic TP BID PRN #180 jar 11/22/16 Nystatin Powder [Nystop Powder -] 1 applic TP DAILY #1 applic 11/22/16 Polyethylene Glycol 3350 [Miralax 119 gm Btl -] 17 gm PO DAILY #180 bottle 11/22 oxyCODONE HCL [Roxicodone -] 10 mg PO Q6H PRN #120 tablet MDD 4 11/22/16 Warfarin Na [Coumadin -] 5 mg PO DAILY@1800 01/18/18 Family Disease History - Family Disease History Family Disease History: Diabetes: Mother ( in her late 50s ), Sister ( in her 40s of substance abuse), Other: Father (had CAV --. in his 70s) Physical Exam for Ortho Vital Signs: Vital Signs Temperature 98.3 F 01/19/18 05:52 Pulse Rate 98 H 01/19/18 05:52 Respiratory Rate 17 01/19/18 05:52 Blood Pressure 93/56 01/19/18 05:52 O2 Sat by Pulse Oximetry (%) 99 01/19/18 01:51 Labs: CBC, BMP 01/19/18 06:00 INR, PTT INR 1.08 (0.82-1.09) 01/18/18 15:34 - Lower Extremity Hip: Yes: Left, Decreased ROM, Pain, Other (equal limb lengths, nvi) Knee: Yes: Left, Other (well healed surgical scar, nontender, rom 0-110, calf soft, nt, nvi) Foot: Yes: Left, Pain, Swelling, Other (+ swelling, +ttp over 5th metatarsal ) Imaging - Results X-ray: Report Reviewed, Image Reviewed Assessment/Plan 43 year old female, with a significant past medical history of asthma, [place](s/p stent), CVA, diabetes, hypertension, hyperlipidemia, CKD(not on dialysis), diverticulitis(perforated bowel), DVT, protein C deficiency (on coumadin), and anxiety, who presented to the emergency department s/p mechanical fall 6 days ago. c/o pain in left hip and left foot. a/p left hip djd- possible occult fx, left foot pain CT scan of left hip xray of left foot pain control will follow-up once studies performed d/w Dr. Stark
[2018-01-19 08:01] LABS: ALK PHOS 229 U/L (45-117); BILIRUBIN,TOTAL 0.2 mg/dL (0.2-1.0); HDL CHOLESTEROL 22 mg/dL (40-60); SGPT/ALT 41 U/L (12-78); TOT PROT 6.5 g/dl (6.4-8.2); TRIGLYCERIDES 273 mg/dL (35-160)
[2018-01-19] MEDS: ALBUTEROL SO4 0.083% IH SOL 2.5 MG/3 ML VIAL.NEB. NEB SCH ×4 (08:39→19:50)
[2018-01-19] MEDS ORDERED: ACETAMINOPHEN/CAFFEINE/BUTALBITAL 1 TAB ONE (10:16)
[2018-01-19] MEDS: BUDESONIDE 0.25 MG/2ML INH SUSP VIAL NEB SCH ×2 (10:30→21:10)
--- NOTE | 2018-01-19 10:31 | HP ---
Admitting History and Physical - Admission History of Present Illness: 43 year old woman with a history of HTN, Diabetes, hyperlipidemia, CAD s/p PDI 2014, ND 2014, CVA 2014, Protein S deficiency on coumadin, CKD, GERD, DJD, lt hip fx s/p ORIF 2016, multiple LLE revascularizations, bilat stents, admitted after a trip and fall with left leg, hip and knee pain. Denies LOC or chest pain, sob, orthopnea, pnd or edema. Echo 07/08/17: inc ef 70%, mild-mod mr, mild tr, mod phtn Nuclear stress test 12/31/14: small inferolateral infarct, no ischemia EF 63% Now noted with new anterior T wave inversions, elevated troponin and new REBA ( creat 1.1-->2.3). 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 holter then sg=howed rare APCs, TTE and TAWANNA unremarkable), Other (neuropathy) Cardiovascular: Yes: [place] [facility] [place] FLY, 80% small D1 -. med managed), HTN, Hyperlipdemia Pulmonary: Yes: Asthma, COPD Gastrointestinal: Yes: GERD ...LMP: 07/21/16 ...: No Heme/Onc: Yes: Anemia Musculoskeletal: Yes: Osteoarthritis, Other (herniated disc) Endocrine: Yes: Diabetes Mellitus (for over 20 yr s-. insulin for over 10 yrs) - Past Surgical History Past Surgical History: Yes: Bypass, Hernia Repair ([facility]). No: AV Fistula/ Graft - Smoking History Smoking history: Former smoker Have you smoked in the past 12 months: No Aproximately how many cigarettes per day: 5 If you are a former smoker, when did you quit?: 10 ya - Alcohol/Substance Use Hx Alcohol Use: No History of Substance Use: reports: None - Social History History of Recent Travel: No Home Medications - Allergies Allergies/Adverse Reactions: Allergies Allergy/AdvReac Type Severity Reaction Status Date / Time No Known Drug Allergies Allergy Verified 01/18/18 10:58 - Home Medications Home Medications: Ambulatory Orders Budesonide [Pulmicort 0.25 mg Nebulizer -] 1 neb PO BID 11/21/15 Liraglutide [Victoza -] 1.2 unit SQ DAILY@0700 11/21/15 Albuterol 0.083% Nebulizer Carolyn [Ventolin 0.083% Nebulizer Soln -] 1 amp NEB Q6HPO amp 12/15/15 Insulin (Novolog) [Novolog -] 0 units SQ ASDIR 04/15/16 Pregabalin [Lyrica -] 150 mg PO TID 04/15/16 Cholecalciferol (Vitamin D3) [Vitamin D3] 50,000 unit PO WEEKLY 04/16/16 Insulin Glargine,Hum.rec.anlog [Lantus (10mL VIAL) -] 65 units SQ AM 08/17/16 Meclizine HCl [Antivert -] 25 mg PO TID 08/17/16 Acetaminophen [Tylenol .Regular Strength -] 650 mg PO Q6H PRN #0 tablet Atorvastatin Ca [Lipitor] 20 mg PO HS #30 tablet 11/22/16 Docusate Sodium [Colace -] 100 mg PO BID #60 11/22/16 Iron Polysaccharides [Niferex-150 -] 150 mg PO DAILY #30 11/22/16 LORazepam [Ativan] 0.5 mg PO BID #60 tablet MDD 2 11/22/16 Meclizine HCl [Antivert -] 25 mg PO TID PRN #90 tablet 11/22/16 Mineral Oil/Pet Hy-Phl [Aquaphor -] 1 applic TP BID PRN #180 jar 11/22/16 Nystatin Powder [Nystop Powder -] 1 applic TP DAILY #1 applic 11/22/16 Polyethylene Glycol 3350 [Miralax 119 gm Btl -] 17 gm PO DAILY #180 bottle 11/22 oxyCODONE HCL [Roxicodone -] 10 mg PO Q6H PRN #120 tablet MDD 4 11/22/16 Warfarin Na [Coumadin -] 5 mg PO DAILY@1800 01/18/18 Family Disease History - Family Disease History Family Disease History: Diabetes: Mother ( in her late 50s ), Sister ( in her 40s of substance abuse), Other: Father (had CAV --. in his 70s) Review of Systems - Review of Systems Cardiovascular: denies: Chest Pain Respiratory: denies: SOB Gastrointestinal: denies: Abdominal Pain Physical Examination Vital Signs: Vital Signs Temperature 98.3 F 01/19/18 05:52 Pulse Rate 98 H 01/19/18 05:52 Respiratory Rate 17 01/19/18 05:52 Blood Pressure 93/56 01/19/18 05:52 O2 Sat by Pulse Oximetry (%) 99 01/19/18 01:51 Cardiovascular: Yes: S1, S2 Respiratory: Yes: Regular, CTA Bilaterally Gastrointestinal: Yes: Normal Bowel Sounds, Soft. No: Tenderness Edema: No Labs: CBC, BMP 01/19/18 06:00 01/19/18 06:00 Problem List - Problems (1) NSTEMI (non-ST elevated myocardial infarction) Assessment/Plan: Cardiology consult Elevated troponin may represent subacute ND but there are no symptoms c/w ischemia. This may be a nonischemic pattern due to renal disease. rpt CE's Echo ordered. Needs IV heparin to bridge to coumadin, not necessarily for elevated troponin. consider DVT and PE workup.--on ac now will get venous duplex She has new Acute on chronic renal failure. Needs renal evaluation. Not a candidate for ischemia workup at this point given renal issues and comorbidities. Add baby aspirin. Add low dose beta atri if bp and HR tolerate. Increase lipitor to 80 mg daily given CAD, PVD and diabetes. Code(s): I21.4 - NON-ST ELEVATION (NSTEMI) MYOCARDIAL INFARCTION (2) Type 2 diabetes mellitus with other diabetic kidney complication Assessment/Plan: -bgm -endo -endo Code(s): E11.29 - TYPE 2 DIABETES MELLITUS W OTH DIABETIC KIDNEY COMPLICATION (3) COPD (chronic obstructive pulmonary disease) Assessment/Plan: -Nebs Code(s): J44.9 - CHRONIC OBSTRUCTIVE PULMONARY DISEASE, UNSPECIFIED Qualifiers: Emphysema type: unspecified
[2018-01-19] MEDS: oxyCODONE HCL 5 MG TABLET PO PRN ×2 (10:48→21:29)
[2018-01-19] MEDS: LORazepam 0.5 MG TABLET PO SCH ×2 (10:49→21:29)
[2018-01-19] MEDS: ACETAMINOPHEN 325 MG TABLET (FP) PO PRN (10:49)
[2018-01-19] MEDS: POLYETHYLENE GLYCOL 3350 119 GM BTL PO SCH (10:50)
[2018-01-19] MEDS: DOCUSATE SODIUM 100 MG CAPSULE (FP) PO SCH ×2 (10:50→21:29)
[2018-01-19] MEDS: NYSTATIN POWDER 100,000 UNITS/GM - 15 GM TOPICAL POWDER TP SCH (10:50)
[2018-01-19] MEDS: HEPARIN NA (PORCINE) 5,000 UNITS/ML 1ML VIAL IVPUSH PRN (10:51)
[2018-01-19] MEDS: HEPARIN INFUSION - 25,000 UNITS/500 ML INFUS.BAG IVPB SCH (13:37)
[2018-01-19] MEDS: WARFARIN NA 5 MG TABLET (UD) PO SCH (17:42)
[2018-01-19] MEDS: ATORVASTATIN CA 20 MG TABLET (FP) PO SCH (21:29)
[2018-01-20] MEDS: INSULIN (LEVEMIR) 100 UNITS/ML UNITS SQ SCH ×2 (06:33→21:26)
[2018-01-20] MEDS: PREGABALIN 50 MG CAPSULE PO SCH ×3 (06:33→21:26)
[2018-01-20] MEDS: INSULIN SLIDING SCALE (NOVOLOG) 1 VIAL SQ SCH ×4 (06:38→21:26)
[2018-01-20] MEDS: ALBUTEROL SO4 0.083% IH SOL 2.5 MG/3 ML VIAL.NEB. NEB SCH ×4 (07:59→20:35)
[2018-01-20 08:45] LABS: BASO % 0.6 % (0-2.0); EOS % 2.5 % (0-4.5); HEMATOCRIT 28.1 % (32.4-45.2); HEMOGLOBIN 8.6 GM/dL (10.7-15.3); LYMPH % 32.3 % (8-40); MCH 23.7 pg (25.7-33.7); MCHC 30.6 g/dl (32.0-36.0); MEAN CELL VOLUME 77.5 fl (80-96); MEAN PLT VOLUME 9.2 fl (7.5-11.1); NEUT % 57.6 % (42.8-82.8); PLATELET COUNT 312 K/MM3 (134-434); RBC 3.62 M/mm3 (3.60-5.2); WHITE BLOOD COUNT 9.7 K/mm3 (4.0-10.0)
[2018-01-20 08:54] LABS: CHLORIDE 102 mmol/L (98-107); POTASSIUM 4.1 mmol/L (3.5-5.1); SODIUM 139 mmol/L (136-145)
[2018-01-20] MEDS ORDERED: ATORVASTATIN CA 20 MG TABLET (FP) PO SCH (09:28)
--- NOTE | 2018-01-20 09:30 | PN ---
Progress Note, Physician History of Present Illness: c/o chest heaviness - Current Medication List Current Medications: Active Medications Acetaminophen (Tylenol -) 650 mg PO Q6H PRN PRN Reason: FEVER Last Admin: 01/19/18 10:49 Dose: 650 mg Albuterol Sulfate (Ventolin 0.083% Nebulizer Soln -) 1 amp NEB RQID [facility] [place] Last Admin: 01/20/18 07:59 Dose: 1 amp Atorvastatin Calcium (Lipitor -) 40 mg PO HS MICK Budesonide (Pulmicort 0.25 Mg Nebulizer -) 1 amp NEB BID [facility] [place] Last Admin: 01/19/18 21:10 Dose: 1 amp Docusate Sodium (Colace -) 100 mg PO BID [facility] [place] Last Admin: 01/19/18 21:29 Dose: 100 mg Emollient Ointment (Aquaphor -) 1 applic TP BID PRN PRN Reason: DRY SKIN Heparin Sodium (Porcine) (Heparin -) 5,000 unit IVPUSH PRN PRN PRN Reason: Heparin Last Admin: 01/19/18 10:51 Dose: 5,000 unit Heparin Sodium (Porcine) (Heparin -) 1,000 unit IVPUSH PRN PRN PRN Reason: Heparin Heparin Sodium/Dextrose (Heparin Infusion -) 25,000 units in 500 mls @ 20 mls/ hr IVPB TITR MICK; 1,000 UNITS/HR PRN Reason: Protocol Last Admin: 01/19/18 13:37 Dose: 1,250 units/hr, 25 mls/hr Insulin Aspart (Novolog Vial Sliding Scale -) 1 vial SQ ACHS MICK PRN Reason: Protocol Last Admin: 01/20/18 06:38 Dose: Not Given Insulin Detemir (Levemir Vial) 20 units SQ BID@0700,2200 [facility] [place] Last Admin: 01/20/18 06:33 Dose: 20 units Lorazepam (Ativan -) 0.5 mg PO BID [facility] [place] Last Admin: 01/19/18 21:29 Dose: 0.5 mg Meclizine HCl (Antivert -) 25 mg PO TID PRN PRN Reason: VERTIGO Nitroglycerin (Nitro-Bid 2% Paste -) 0.5 inch TD Q6HPO MICK Nystatin (Nystop Powder -) 1 applic TP DAILY [facility] [place] Last Admin: 01/19/18 10:50 Dose: 1 applic Oxycodone HCl (Roxicodone -) 10 mg PO Q6H PRN PRN Reason: BACK PAIN Last Admin: 01/19/18 21:29 Dose: 10 mg Polyethylene Glycol (Miralax (For Daily Use) -) 17 gm PO DAILY [facility] [place] Last Admin: 01/19/18 10:50 Dose: 17 grams Pregabalin (Lyrica -) 150 mg PO TID [facility] [place] Last Admin: 01/20/18 06:33 Dose: 150 mg Warfarin Sodium (Coumadin -) 5 mg PO DAILY@1800 [facility] [place] Last Admin: 01/19/18 17:42 Dose: 5 mg - Objective Vital Signs: Vital Signs Temperature 98.4 F 01/20/18 02:00 Pulse Rate 101 H 01/20/18 06:00 Respiratory Rate 20 01/20/18 06:00 Blood Pressure 119/67 01/20/18 06:00 O2 Sat by Pulse Oximetry (%) 98 01/19/18 21:00 Cardiovascular: Yes: S1, S2 Respiratory: Yes: Regular, CTA Bilaterally Gastrointestinal: Yes: Normal Bowel Sounds, Soft Labs: CBC, BMP 01/20/18 08:00 01/20/18 08:00 INR, PTT INR 1.09 (0.82-1.09) 01/19/18 06:00 Problem List - Problems (1) NSTEMI (non-ST elevated myocardial infarction) Assessment/Plan: Cardiology consult Elevated troponin may represent subacute [place] but there are no symptoms c/w ischemia. This may be a nonischemic pattern due to renal disease. rpt CE's Echo ordered. Needs IV heparin to bridge to coumadin, not necessarily for elevated troponin. consider DVT and PE workup.--on ac now will get venous duplex She has new Acute on chronic renal failure. Needs renal evaluation. Not a candidate for ischemia workup at this point given renal issues and comorbidities. Added baby aspirin.- bp and HR tolerate. Increased lipitor to 80 mg daily given CAD, PVD and diabetes. Code(s): I21.4 - NON-ST ELEVATION (NSTEMI) MYOCARDIAL INFARCTION (2) Type 2 diabetes mellitus with other diabetic kidney complication Assessment/Plan: -bgm -endo -endo Code(s): E11.29 - TYPE 2 DIABETES MELLITUS W OTH DIABETIC KIDNEY COMPLICATION (3) COPD (chronic obstructive pulmonary disease) Assessment/Plan: -Nebs Code(s): J44.9 - CHRONIC OBSTRUCTIVE PULMONARY DISEASE, UNSPECIFIED Qualifiers: Emphysema type: unspecified
[2018-01-20] MEDS: ACETAMINOPHEN 325 MG TABLET (FP) PO PRN ×2 (09:53→21:59)
[2018-01-20] MEDS: oxyCODONE HCL 5 MG TABLET PO PRN ×2 (09:53→21:57)
[2018-01-20] MEDS: ASPIRIN COATED 81 MG TABLET.EC PO SCH (09:54)
[2018-01-20] MEDS: LORazepam 0.5 MG TABLET PO SCH ×2 (09:54→21:25)
[2018-01-20] MEDS: NYSTATIN POWDER 100,000 UNITS/GM - 15 GM TOPICAL POWDER TP SCH (09:54)
[2018-01-20] MEDS: DOCUSATE SODIUM 100 MG CAPSULE (FP) PO SCH ×2 (09:54→21:25)
[2018-01-20] MEDS: POLYETHYLENE GLYCOL 3350 119 GM BTL PO SCH (09:54)
[2018-01-20] MEDS: HEPARIN NA (PORCINE) 5,000 UNITS/ML 1ML VIAL IVPUSH PRN (09:55)
[2018-01-20 09:59] LABS: ANION GAP 10 (8-16); BLOOD UREA NITROGEN 31 mg/dL (7-18); CO2 27 mmol/L (21-32); SGPT/ALT 32 U/L (12-78)
[2018-01-20 10:09] LABS: ALBUMIN 2.2 g/dl (3.4-5.0); ALK PHOS 185 U/L (45-117); BILIRUBIN,TOTAL 0.3 mg/dL (0.2-1.0); CALCIUM 7.7 mg/dL (8.5-10.1); CREATININE 2.8 mg/dL (0.55-1.02); GLUCOSE,RANDOM 115 mg/dL (74-106); SGOT/AST 58 U/L (15-37); TOT PROT 6.3 g/dl (6.4-8.2)
[2018-01-20 11:32] LABS: INR 1.16 (0.82-1.09); PROTHROMBIN TIME (PATIENT) 13.1 SEC (9.7-13.0)
[2018-01-20] MEDS: BUDESONIDE 0.25 MG/2ML INH SUSP VIAL NEB SCH ×2 (11:43→22:45)
[2018-01-20] MEDS: HEPARIN INFUSION - 25,000 UNITS/500 ML INFUS.BAG IVPB SCH (13:38)
[2018-01-20] MEDS: NITROGLYCERIN 2% OINTMENT - 1GM PACKET TD SCH ×3 (13:40→23:31)
--- NOTE | 2018-01-20 13:58 | PN ---
Progress Note, Physician Chief Complaint: Chest pain when swallowing. No dyspnea, cough Telem NSR History of Present Illness: She is a 43 year old woman with a history of HTN, Diabetes, hyperlipidemia, CAD s/p PDI 2014, [place] 2014, CVA 2014, Protein S deficiency on coumadin, CKD, GERD, DJD, lt hip fx s/p ORIF 2016, multiple LLE revascularizations, bilat stents, admitted after a trip and fall with left leg, hip and knee pain. Denies LOC or chest pain, sob, orthopnea, pnd or edema. Echo 07/08/17: inc ef 70%, mild-mod mr, mild tr, mod phtn Nuclear stress test 12/31/14: small inferolateral infarct, no ischemia EF 63% Now noted with new anterior T wave inversions, elevated troponin and new REBA ( creat 1.1-->2.3). - Current Medication List Current Medications: Active Medications Acetaminophen (Tylenol -) 650 mg PO Q6H PRN PRN Reason: FEVER Last Admin: 01/20/18 09:53 Dose: 650 mg Albuterol Sulfate (Ventolin 0.083% Nebulizer Soln -) 1 amp NEB RQID [facility] Last Admin: 01/20/18 11:43 Dose: 1 amp Aspirin (Ecotrin -) 81 mg PO DAILY [facility] Last Admin: 01/20/18 09:54 Dose: 81 mg Atorvastatin Calcium (Lipitor -) 80 mg PO HS [facility] Budesonide (Pulmicort 0.25 Mg Nebulizer -) 1 amp NEB BID [facility] Last Admin: 01/20/18 11:43 Dose: 1 amp Docusate Sodium (Colace -) 100 mg PO BID [facility] Last Admin: 01/20/18 09:54 Dose: 100 mg Emollient Ointment (Aquaphor -) 1 applic TP BID PRN PRN Reason: DRY SKIN Heparin Sodium (Porcine) (Heparin -) 5,000 unit IVPUSH PRN PRN PRN Reason: Heparin Last Admin: 01/20/18 09:55 Dose: 5,000 unit Heparin Sodium (Porcine) (Heparin -) 1,000 unit IVPUSH PRN PRN PRN Reason: Heparin Heparin Sodium/Dextrose (Heparin Infusion -) 25,000 units in 500 mls @ 20 mls/ hr IVPB TITR MICK; 1,000 UNITS/HR PRN Reason: Protocol Last Admin: 01/20/18 13:38 Dose: 1,350 units/hr, 27 mls/hr Insulin Aspart (Novolog Vial Sliding Scale -) 1 vial SQ ACHS [facility] PRN Reason: Protocol Last Admin: 01/20/18 12:26 Dose: Not Given Insulin Detemir (Levemir Vial) 20 units SQ BID@0700,2200 [facility] Last Admin: 01/20/18 06:33 Dose: 20 units Lorazepam (Ativan -) 0.5 mg PO BID [facility] Last Admin: 01/20/18 09:54 Dose: 0.5 mg Meclizine HCl (Antivert -) 25 mg PO TID PRN PRN Reason: VERTIGO Nitroglycerin (Nitro-Bid 2% Paste -) 0.5 inch TD Q6HPO [facility] Last Admin: 01/20/18 13:40 Dose: 0.5 inch Nystatin (Nystop Powder -) 1 applic TP DAILY [facility] Last Admin: 01/20/18 09:54 Dose: 1 applic Oxycodone HCl (Roxicodone -) 10 mg PO Q6H PRN PRN Reason: BACK PAIN Last Admin: 01/20/18 09:53 Dose: 10 mg Polyethylene Glycol (Miralax (For Daily Use) -) 17 gm PO DAILY [facility] Last Admin: 01/20/18 09:54 Dose: Not Given Pregabalin (Lyrica -) 150 mg PO TID [facility] Last Admin: 01/20/18 13:40 Dose: 150 mg Warfarin Sodium (Coumadin -) 5 mg PO DAILY@1800 [facility] Last Admin: 01/19/18 17:42 Dose: 5 mg - Objective Vital Signs: Vital Signs Temperature 97.7 F 01/20/18 10:00 Pulse Rate 108 H 01/20/18 10:00 Respiratory Rate 20 01/20/18 10:00 Blood Pressure 108/59 01/20/18 10:00 O2 Sat by Pulse Oximetry (%) 98 01/20/18 09:00 Constitutional: Yes: Well Nourished, No Distress Eyes: Yes: Conjunctiva Clear HENT: Yes: Atraumatic, Normocephalic Neck: Yes: Supple, Trachea Midline Cardiovascular: Yes: Regular Rate and Rhythm, S1, S2. No: JVD Respiratory: Yes: Regular, CTA Bilaterally Gastrointestinal: Yes: Normal Bowel Sounds Edema: No Labs: CBC, BMP 01/20/18 08:00 01/20/18 08:00 INR, PTT INR 1.16 (0.82-1.09) H 01/20/18 06:00 Problem List - Problems (1) NSTEMI (non-ST elevated myocardial infarction) Code(s): I21.4 - NON-ST ELEVATION (NSTEMI) MYOCARDIAL INFARCTION (2) Acute kidney injury superimposed on chronic kidney disease Code(s): N17.9 - ACUTE KIDNEY FAILURE, UNSPECIFIED; N18.9 - CHRONIC KIDNEY DISEASE, UNSPECIFIED Assessment/Plan Elevated troponin may represent subacute AK but there are no symptoms c/w ischemia. This may be a nonischemic pattern due to renal disease. Echo ordered. Needs IV heparin to bridge to coumadin, not necessarily for elevated troponin. consider PE workup. She has new Acute on chronic renal failure. Needs renal evaluation. Not a candidate for ischemia workup at this point given renal issues and comorbidities. lipitor to 80 mg daily given CAD, PVD and diabetes.
[2018-01-20] MEDS: WARFARIN NA 5 MG TABLET (UD) PO SCH (17:10)
[2018-01-20] MEDS: ATORVASTATIN CA 80 MG TABLET (FP) PO SCH (21:26)
[2018-01-21] MEDS: PREGABALIN 50 MG CAPSULE PO SCH ×3 (05:49→22:00)
[2018-01-21] MEDS: NITROGLYCERIN 2% OINTMENT - 1GM PACKET TD SCH ×3 (05:49→18:02)
[2018-01-21] MEDS: INSULIN SLIDING SCALE (NOVOLOG) 1 VIAL SQ SCH ×4 (06:01→21:39)
[2018-01-21] MEDS: INSULIN (LEVEMIR) 100 UNITS/ML UNITS SQ SCH ×2 (06:19→22:06)
[2018-01-21 06:48] LABS: BASO % 0.6 % (0-2.0); EOS % 1.9 % (0-4.5); HEMATOCRIT 25.8 % (32.4-45.2); MCH 23.6 pg (25.7-33.7); MCHC 30.9 g/dl (32.0-36.0); MEAN CELL VOLUME 76.5 fl (80-96); MONO % 7.2 % (3.8-10.2); NEUT % 57.3 % (42.8-82.8); PLATELET COUNT 294 K/MM3 (134-434); RBC 3.38 M/mm3 (3.60-5.2); RDW 20.1 % (11.6-15.6); WHITE BLOOD COUNT 10.2 K/mm3 (4.0-10.0)
[2018-01-21 07:15] LABS: INR 1.27 (0.82-1.09); PROTHROMBIN TIME (PATIENT) 14.3 SEC (9.7-13.0)
[2018-01-21] MEDS: ALBUTEROL SO4 0.083% IH SOL 2.5 MG/3 ML VIAL.NEB. NEB SCH ×4 (07:42→20:00)
[2018-01-21 08:21] LABS: ALBUMIN 2.2 g/dl (3.4-5.0); ANION GAP 10 (8-16); BLOOD UREA NITROGEN 28 mg/dL (7-18); CHLORIDE 108 mmol/L (98-107); CO2 25 mmol/L (21-32); CREATININE 2.1 mg/dL (0.55-1.02); GLUCOSE,RANDOM 134 mg/dL (74-106); POTASSIUM 4.3 mmol/L (3.5-5.1); SGOT/AST 46 U/L (15-37); SGPT/ALT 28 U/L (12-78); SODIUM 143 mmol/L (136-145); TOT PROT 6.3 g/dl (6.4-8.2)
[2018-01-21 08:34] LABS: ALK PHOS 152 U/L (45-117); BILIRUBIN,TOTAL 0.1 mg/dL (0.2-1.0)
[2018-01-21] MEDS: POLYETHYLENE GLYCOL 3350 119 GM BTL PO SCH (09:59)
[2018-01-21] MEDS: HEPARIN INFUSION - 25,000 UNITS/500 ML INFUS.BAG IVPB SCH ×2 (09:59→14:18)
[2018-01-21] MEDS: ASPIRIN COATED 81 MG TABLET.EC PO SCH (09:59)
[2018-01-21] MEDS: LORazepam 0.5 MG TABLET PO SCH ×2 (09:59→22:00)
[2018-01-21] MEDS: oxyCODONE HCL 5 MG TABLET PO PRN ×2 (09:59→22:01)
[2018-01-21] MEDS: DOCUSATE SODIUM 100 MG CAPSULE (FP) PO SCH ×2 (09:59→22:01)
[2018-01-21] MEDS: ACETAMINOPHEN 325 MG TABLET (FP) PO PRN ×2 (09:59→22:01)
[2018-01-21] MEDS: NYSTATIN POWDER 100,000 UNITS/GM - 15 GM TOPICAL POWDER TP SCH (10:00)
[2018-01-21] MEDS ORDERED: PT OWN MED DRAWER 7, Y5N ONE ×2 (10:19→20:23)
[2018-01-21] MEDS: BUDESONIDE 0.25 MG/2ML INH SUSP VIAL NEB SCH ×2 (10:25→21:39)
--- NOTE | 2018-01-21 11:24 | PN ---
Progress Note (short form) - Note Progress Note: Ortho Pt seen and examined. still c/o pain in left hip, foot is better PE- + ttp, decr rom secondary to pain, equal limb lengths, nvi foot xrays- neg a/p CT scan of left hip pain control will follow-up after CT d/w Dr. Stark
--- NOTE | 2018-01-21 15:08 | PN ---
Progress Note, Physician History of Present Illness: seen and examined today in nad. no overnight events. no new complaints. - Current Medication List Current Medications: Active Medications Acetaminophen (Tylenol -) 650 mg PO Q6H PRN PRN Reason: FEVER Last Admin: 01/21/18 09:59 Dose: 650 mg Albuterol Sulfate (Ventolin 0.083% Nebulizer Soln -) 1 amp NEB RQID [facility] Last Admin: 01/21/18 11:29 Dose: Not Given Aspirin (Ecotrin -) 81 mg PO DAILY [facility] Last Admin: 01/21/18 09:59 Dose: 81 mg Atorvastatin Calcium (Lipitor -) 80 mg PO HS [facility] Last Admin: 01/20/18 21:26 Dose: 80 mg Budesonide (Pulmicort 0.25 Mg Nebulizer -) 1 amp NEB BID [facility] Last Admin: 01/21/18 10:25 Dose: 1 amp Docusate Sodium (Colace -) 100 mg PO BID [facility] Last Admin: 01/21/18 09:59 Dose: 100 mg Emollient Ointment (Aquaphor -) 1 applic TP BID PRN PRN Reason: DRY SKIN Heparin Sodium (Porcine) (Heparin -) 5,000 unit IVPUSH PRN PRN PRN Reason: Heparin Last Admin: 01/20/18 09:55 Dose: 5,000 unit Heparin Sodium (Porcine) (Heparin -) 1,000 unit IVPUSH PRN PRN PRN Reason: Heparin Heparin Sodium/Dextrose (Heparin Infusion -) 25,000 units in 500 mls @ 20 mls/ hr IVPB TITR MICK; 1,000 UNITS/HR PRN Reason: Protocol Last Admin: 01/21/18 14:18 Dose: Not Given Insulin Aspart (Novolog Vial Sliding Scale -) 1 vial SQ ACHS [facility] PRN Reason: Protocol Last Admin: 01/21/18 11:46 Dose: 6 units Insulin Detemir (Levemir Vial) 20 units SQ BID@0700,2200 [facility] Last Admin: 01/21/18 06:19 Dose: Not Given Lorazepam (Ativan -) 0.5 mg PO BID [facility] Last Admin: 01/21/18 09:59 Dose: 0.5 mg Meclizine HCl (Antivert -) 25 mg PO TID PRN PRN Reason: VERTIGO Nitroglycerin (Nitro-Bid 2% Paste -) 0.5 inch TD Q6HPO [facility] Last Admin: 01/21/18 14:18 Dose: Not Given Nystatin (Nystop Powder -) 1 applic TP DAILY [facility] Last Admin: 01/21/18 10:00 Dose: 1 applic Oxycodone HCl (Roxicodone -) 10 mg PO Q6H PRN PRN Reason: BACK PAIN Last Admin: 01/21/18 09:59 Dose: 10 mg Polyethylene Glycol (Miralax (For Daily Use) -) 17 gm PO DAILY [facility] Last Admin: 01/21/18 09:59 Dose: Not Given Pregabalin (Lyrica -) 150 mg PO TID [facility] Last Admin: 01/21/18 14:21 Dose: 150 mg Warfarin Sodium (Coumadin -) 5 mg PO DAILY@1800 [facility] Last Admin: 01/20/18 17:10 Dose: 5 mg - Objective Vital Signs: Vital Signs Temperature 98.2 F 01/21/18 09:00 Pulse Rate 99 H 01/21/18 09:00 Respiratory Rate 20 01/21/18 09:00 Blood Pressure 109/53 01/21/18 09:00 O2 Sat by Pulse Oximetry (%) 98 01/21/18 09:00 Constitutional: Yes: No Distress, Calm Eyes: Yes: Conjunctiva Clear, EOM Intact, PERRL HENT: Yes: Atraumatic, Normocephalic Neck: Yes: Supple, Trachea Midline Cardiovascular: Yes: Regular Rate and Rhythm, S1, S2. No: Bradycardia, Tachycardia, Pulse Irregular, Bruit, JVD, Gallop, Murmur, Rub, S3, S4, Varicosities Respiratory: Yes: Regular, CTA Bilaterally. No: Rales, Rhonchi, Wheezes Gastrointestinal: Yes: Normal Bowel Sounds, Soft. No: Distention, Tenderness Edema: No Neurological: Yes: Alert, Oriented Psychiatric: Yes: Alert, Oriented Labs: CBC, BMP 01/21/18 06:25 01/21/18 06:25 INR, PTT INR 1.27 (0.82-1.09) H 01/21/18 06:25 - ....Imaging Chest X-ray: Report Reviewed, Image Reviewed EKG: Report Reviewed, Image Reviewed Other: Report Reviewed, Image Reviewed (tele-NSR, sinus tach, no sig arrhythmias ) Assessment/Plan 43 year old woman with a history of HTN, Diabetes, hyperlipidemia, CAD s/p PDI 2014, [place] 2014, CVA 2014, Protein S deficiency on coumadin, CKD, GERD, DJD, lt hip fx s/p ORIF 2016, multiple LLE revascularizations, bilat stents, admitted after a trip and fall with left leg, hip and knee pain. Denies LOC or chest pain, sob, orthopnea, pnd or edema. Echo 07/08/17: inc ef 70%, mild-mod mr, mild tr, mod phtn Nuclear stress test 12/31/14: small inferolateral infarct, no ischemia EF 63% Now noted with new anterior T wave inversions, elevated troponin and new REBA ( creat 1.1-->2.3). Problem List - Problems (1) NSTEMI (non-ST elevated myocardial infarction) Code(s): I21.4 - NON-ST ELEVATION (NSTEMI) MYOCARDIAL INFARCTION (2) Acute kidney injury superimposed on chronic kidney disease Code(s): N17.9 - ACUTE KIDNEY FAILURE, UNSPECIFIED; N18.9 - CHRONIC KIDNEY DISEASE, UNSPECIFIED Assessment/Plan Troponin trended down fup echo cont IV heparin bridge to coumadin (which she is on for Protein S deficiency Holding off on ischemia workup at this point given renal issues and comorbidities. cont lipitor 80 mg daily given CAD, PVD and diabetes.
--- NOTE | 2018-01-21 17:44 | PN ---
Progress Note, Physician Chief Complaint: NEW C/O LEFT FOOT NUMBNESS EVENTS AND NOTES REVIEWED DENIES CHEST PAIN DENIES SOB - Current Medication List Current Medications: Active Medications Acetaminophen (Tylenol -) 650 mg PO Q6H PRN PRN Reason: FEVER Last Admin: 01/21/18 09:59 Dose: 650 mg Albuterol Sulfate (Ventolin 0.083% Nebulizer Soln -) 1 amp NEB RQID [facility] Last Admin: 01/21/18 11:29 Dose: Not Given Aspirin (Ecotrin -) 81 mg PO DAILY [facility] Last Admin: 01/21/18 09:59 Dose: 81 mg Atorvastatin Calcium (Lipitor -) 80 mg PO HS [facility] Last Admin: 01/20/18 21:26 Dose: 80 mg Budesonide (Pulmicort 0.25 Mg Nebulizer -) 1 amp NEB BID [facility] Last Admin: 01/21/18 10:25 Dose: 1 amp Docusate Sodium (Colace -) 100 mg PO BID [facility] Last Admin: 01/21/18 09:59 Dose: 100 mg Emollient Ointment (Aquaphor -) 1 applic TP BID PRN PRN Reason: DRY SKIN Heparin Sodium (Porcine) (Heparin -) 5,000 unit IVPUSH PRN PRN PRN Reason: Heparin Last Admin: 01/20/18 09:55 Dose: 5,000 unit Heparin Sodium (Porcine) (Heparin -) 1,000 unit IVPUSH PRN PRN PRN Reason: Heparin Heparin Sodium/Dextrose (Heparin Infusion -) 25,000 units in 500 mls @ 20 mls/ hr IVPB TITR MICK; 1,000 UNITS/HR PRN Reason: Protocol Last Admin: 01/21/18 14:18 Dose: Not Given Insulin Aspart (Novolog Vial Sliding Scale -) 1 vial SQ ACHS [facility] PRN Reason: Protocol Last Admin: 01/21/18 16:42 Dose: Not Given Insulin Detemir (Levemir Vial) 20 units SQ BID@0700,2200 [facility] Last Admin: 01/21/18 06:19 Dose: Not Given Lorazepam (Ativan -) 0.5 mg PO BID [facility] Last Admin: 01/21/18 09:59 Dose: 0.5 mg Meclizine HCl (Antivert -) 25 mg PO TID PRN PRN Reason: VERTIGO Nitroglycerin (Nitro-Bid 2% Paste -) 0.5 inch TD Q6HPO [facility] Last Admin: 01/21/18 14:18 Dose: Not Given Nystatin (Nystop Powder -) 1 applic TP DAILY [facility] Last Admin: 01/21/18 10:00 Dose: 1 applic Polyethylene Glycol (Miralax (For Daily Use) -) 17 gm PO DAILY [facility] Last Admin: 01/21/18 09:59 Dose: Not Given Pregabalin (Lyrica -) 150 mg PO TID [facility] Last Admin: 01/21/18 14:21 Dose: 150 mg Warfarin Sodium (Coumadin -) 5 mg PO DAILY@1800 [facility] Last Admin: 01/20/18 17:10 Dose: 5 mg - Objective Vital Signs: Vital Signs Temperature 98.5 F 01/21/18 15:00 Pulse Rate 96 H 01/21/18 15:00 Respiratory Rate 20 01/21/18 15:00 Blood Pressure 122/74 01/21/18 15:00 O2 Sat by Pulse Oximetry (%) 98 01/21/18 09:00 Constitutional: Yes: Mild Distress Eyes: Yes: WNL HENT: Yes: WNL Neck: Yes: WNL Cardiovascular: Yes: WNL Respiratory: Yes: WNL Gastrointestinal: Yes: WNL Genitourinary: Yes: WNL Musculoskeletal: Yes: Joint Stiffness, Muscle Pain, Muscle Weakness Extremities: Yes: Other Edema: No Peripheral Pulses WNL: Yes Integumentary: Yes: WNL Wound/Incision: Yes: Clean/Dry Neurological: Yes: Numbness, Paresthesia, Tingling, Weakness ...Motor Strength: LLE (FOOT DROP) Psychiatric: Yes: WNL Labs: CBC, BMP 01/21/18 06:25 01/21/18 06:25 INR, PTT INR 1.27 (0.82-1.09) H 01/21/18 06:25 Problem List - Problems (1) NSTEMI (non-ST elevated myocardial infarction) Code(s): I21.4 - NON-ST ELEVATION (NSTEMI) MYOCARDIAL INFARCTION (2) Peripheral neuropathy Code(s): G62.9 - POLYNEUROPATHY, UNSPECIFIED Qualifiers: Peripheral neuropathy type: mononeuropathy, other Qualified Code(s): G58.8 - Other specified mononeuropathies (3) Type 2 diabetes mellitus with other diabetic kidney complication Code(s): E11.29 - TYPE 2 DIABETES MELLITUS W OTH DIABETIC KIDNEY COMPLICATION (4) Type 2 diabetes mellitus with retinopathy without macular edema Code(s): E11.319 - TYPE 2 DIABETES W UNSP DIABETIC RTNOP W/O MACULAR EDEMA (5) Anemia Code(s): D64.9 - ANEMIA, UNSPECIFIED (6) Peripheral arterial disease Code(s): I73.9 - PERIPHERAL VASCULAR DISEASE, UNSPECIFIED (7) Renal insufficiency Code(s): N28.9 - DISORDER OF KIDNEY AND URETER, UNSPECIFIED Assessment/Plan ORDERING ARTERIAL DOPPLER OF LEFT LEG R/O GRAFT OCCLUSION CANNOT HAVE MRI DUE TO METAL STENTS/PLATES PAIN CONTROL NEUROLOGY CONSULT VASCULAR DR CELESTE CARDIAC WORKUP CONTINUE TELEMETRY MONITORING
[2018-01-21] MEDS: WARFARIN NA 5 MG TABLET (UD) PO SCH (18:02)
[2018-01-21] MEDS: LIDOCAINE 5% TOPICAL PATCH TP SCH (18:04)
--- NOTE | 2018-01-21 19:33 | PN ---
Progress Note, Physician Chief Complaint: pain left hip severe unable to put left foot down History of Present Illness: dm,iddm,htn ashd,ckd,severe pain and limited motionleft leg and foot sugar levels higher given extent of limited mobilty and pain - Current Medication List Current Medications: Active Medications Acetaminophen (Tylenol -) 650 mg PO Q6H PRN PRN Reason: FEVER Last Admin: 01/21/18 09:59 Dose: 650 mg Albuterol Sulfate (Ventolin 0.083% Nebulizer Soln -) 1 amp NEB RQID [facility] Last Admin: 01/21/18 16:00 Dose: 1 amp Aspirin (Ecotrin -) 81 mg PO DAILY [facility] Last Admin: 01/21/18 09:59 Dose: 81 mg Atorvastatin Calcium (Lipitor -) 80 mg PO HS [facility] Last Admin: 01/20/18 21:26 Dose: 80 mg Budesonide (Pulmicort 0.25 Mg Nebulizer -) 1 amp NEB BID [facility] Last Admin: 01/21/18 10:25 Dose: 1 amp Docusate Sodium (Colace -) 100 mg PO BID [facility] Last Admin: 01/21/18 09:59 Dose: 100 mg Emollient Ointment (Aquaphor -) 1 applic TP BID PRN PRN Reason: DRY SKIN Heparin Sodium (Porcine) (Heparin -) 5,000 unit IVPUSH PRN PRN PRN Reason: Heparin Last Admin: 01/20/18 09:55 Dose: 5,000 unit Heparin Sodium (Porcine) (Heparin -) 1,000 unit IVPUSH PRN PRN PRN Reason: Heparin Heparin Sodium/Dextrose (Heparin Infusion -) 25,000 units in 500 mls @ 20 mls/ hr IVPB TITR MICK; 1,000 UNITS/HR PRN Reason: Protocol Last Admin: 01/21/18 14:18 Dose: Not Given Insulin Aspart (Novolog Vial Sliding Scale -) 1 vial SQ ACHS [facility] PRN Reason: Protocol Last Admin: 01/21/18 16:42 Dose: Not Given Insulin Detemir (Levemir Vial) 20 units SQ BID@0700,2200 [facility] Last Admin: 01/21/18 06:19 Dose: Not Given Lidocaine (Lidoderm Patch -) 1 patch TP DAILY [facility] Last Admin: 01/21/18 18:04 Dose: Not Given Lorazepam (Ativan -) 0.5 mg PO BID [facility] Last Admin: 01/21/18 09:59 Dose: 0.5 mg Meclizine HCl (Antivert -) 25 mg PO TID PRN PRN Reason: VERTIGO Miscellaneous (Lidoderm Patch Removal) 1 each MC DAILY@2200 [facility] Nitroglycerin (Nitro-Bid 2% Paste -) 0.5 inch TD Q6HPO [facility] Last Admin: 01/21/18 18:02 Dose: 0.5 inch Nystatin (Nystop Powder -) 1 applic TP DAILY [facility] Last Admin: 01/21/18 10:00 Dose: 1 applic Polyethylene Glycol (Miralax (For Daily Use) -) 17 gm PO DAILY [facility] Last Admin: 01/21/18 09:59 Dose: Not Given Pregabalin (Lyrica -) 150 mg PO TID [facility] Last Admin: 01/21/18 14:21 Dose: 150 mg Warfarin Sodium (Coumadin -) 5 mg PO DAILY@1800 [facility] Last Admin: 01/21/18 18:02 Dose: 5 mg - Objective Vital Signs: Vital Signs Temperature 98.5 F 01/21/18 15:00 Pulse Rate 96 H 01/21/18 15:00 Respiratory Rate 20 01/21/18 15:00 Blood Pressure 122/74 01/21/18 15:00 O2 Sat by Pulse Oximetry (%) 98 01/21/18 09:00 Constitutional: Yes: Anxious Eyes: Yes: EOM Intact HENT: Yes: Normocephalic Neck: Yes: Trachea Midline Cardiovascular: Yes: Regular Rate and Rhythm Respiratory: Yes: WNL Gastrointestinal: Yes: Normal Bowel Sounds ...Rectal Exam: Yes: Deferred Genitourinary: Yes: WNL Musculoskeletal: Yes: Back Pain, Joint Stiffness, Joint Swelling, Muscle Weakness Extremities: Yes: Delayed Capillary Refill Edema: LLE: 1+, RLE: Trace Peripheral Pulses WNL: Yes Integumentary: Yes: Onychomycosis Labs: CBC, BMP 01/21/18 06:25 01/21/18 06:25 INR, PTT INR 1.27 (0.82-1.09) H 01/21/18 06:25 Problem List - Problems (1) Type 2 diabetes mellitus with other diabetic kidney complication Code(s): E11.29 - TYPE 2 DIABETES MELLITUS W OTH DIABETIC KIDNEY COMPLICATION (2) Type 2 diabetes mellitus with retinopathy without macular edema Code(s): E11.319 - TYPE 2 DIABETES W UNSP DIABETIC RTNOP W/O MACULAR EDEMA Qualifiers: Diabetic retinopathy severity: with mild nonproliferative retinopathy (3) Peripheral neuropathy Code(s): G62.9 - POLYNEUROPATHY, UNSPECIFIED Qualifiers: Peripheral neuropathy type: mononeuropathy, other Qualified Code(s): G58.8 - Other specified mononeuropathies (4) Accidental drug ingestion Code(s): T50.901A - POISONING BY UNSP DRUG/MEDS/BIOL SUBST, ACCIDENTAL, INIT Qualifiers: Encounter type: subsequent encounter Qualified Code(s): T50.901D - Poisoning by unspecified drugs, medicaments and biological substances, accidental (unintentional), subsequent encounter (5) Acute hypoxemic respiratory failure Code(s): J96.01 - ACUTE RESPIRATORY FAILURE WITH HYPOXIA (6) Acute kidney injury superimposed on chronic kidney disease Code(s): N17.9 - ACUTE KIDNEY FAILURE, UNSPECIFIED; N18.9 - CHRONIC KIDNEY DISEASE, UNSPECIFIED (7) Acute radial nerve palsy of right upper extremity Code(s): G56.31 - LESION OF RADIAL NERVE, RIGHT UPPER LIMB (8) Altered mental state Code(s): R41.82 - ALTERED MENTAL STATUS, UNSPECIFIED Qualifiers: Altered mental status type: somnolence Qualified Code(s): R40.0 - Somnolence Assessment/Plan Current Active Problems NSTEMI (non-ST elevated myocardial infarction) (Acute) Peripheral neuropathy (Acute) Type 2 diabetes mellitus with other diabetic kidney complication (Acute) Type 2 diabetes mellitus with retinopathy without macular edema (Acute) Abnormal Lab Results 01/20/18 01/21/18 01/21/18 20:10 06:25 06:25 WBC 10.2 H RBC 3.38 L Hgb 8.0 L Hct 25.8 L MCV 76.5 L MCH 23.6 L MCHC 30.9 L RDW 20.1 H PT with INR 14.30 H INR 1.27 H PTT (Actin FS) 67.7 H D Chloride BUN Creatinine Random Glucose Calcium Total Bilirubin AST Alkaline Phosphatase Creatine Kinase CK-MB (CK-2) Troponin I Total Protein Albumin 01/21/18 06:25 WBC RBC Hgb Hct MCV MCH MCHC RDW PT with INR INR PTT (Actin FS) Chloride 108 H BUN 28 H Creatinine 2.1 H Random Glucose 134 H Calcium 8.0 L Total Bilirubin 0.1 L D AST 46 H Alkaline Phosphatase 152 H Creatine Kinase 1135 H CK-MB (CK-2) 3.925 H Troponin I 0.26 H Total Protein 6.3 L Albumin 2.2 L Laboratory Results - last 24 hr 01/20/18 01/20/18 01/20/18 20:10 21:02 21:24 WBC RBC Hgb Hct MCV MCH MCHC RDW Plt Count MPV Neutrophils % Lymphocytes % Monocytes % Eosinophils % Basophils % PT with INR INR PTT (Actin FS) 67.7 H D Sodium Potassium Chloride Carbon Dioxide Anion Gap BUN Creatinine Creat Clearance w eGFR POC Glucometer 187 Random Glucose Calcium Total Bilirubin AST ALT Alkaline Phosphatase Creatine Kinase Creatine Kinase Index CK-MB (CK-2) Troponin I Total Protein Albumin Urine HCG, Qual Negative 01/21/18 01/21/18 01/21/18 05:03 06:25 06:25 WBC 10.2 H RBC 3.38 L Hgb 8.0 L Hct 25.8 L MCV 76.5 L MCH 23.6 L MCHC 30.9 L RDW 20.1 H Plt Count 294 MPV 9.0 Neutrophils % 57.3 Lymphocytes % 33.0 Monocytes % 7.2 Eosinophils % 1.9 Basophils % 0.6 PT with INR 14.30 H INR 1.27 H PTT (Actin FS) Sodium Potassium Chloride Carbon Dioxide Anion Gap BUN Creatinine Creat Clearance w eGFR POC Glucometer 138 Random Glucose Calcium Total Bilirubin AST ALT Alkaline Phosphatase Creatine Kinase Creatine Kinase Index CK-MB (CK-2) Troponin I Total Protein Albumin Urine HCG, Qual 01/21/18 06:25 WBC RBC Hgb Hct MCV MCH MCHC RDW Plt Count MPV Neutrophils % Lymphocytes % Monocytes % Eosinophils % Basophils % PT with INR INR PTT (Actin FS) Sodium 143 Potassium 4.3 Chloride 108 H Carbon Dioxide 25 Anion Gap 10 BUN 28 H Creatinine 2.1 H Creat Clearance w eGFR 25.47 POC Glucometer Random Glucose 134 H Calcium 8.0 L Total Bilirubin 0.1 L D AST 46 H ALT 28 Alkaline Phosphatase 152 H Creatine Kinase 1135 H Creatine Kinase Index 0.3 CK-MB (CK-2) 3.925 H Troponin I 0.26 H Total Protein 6.3 L Albumin 2.2 L Urine HCG, Qual plan: bgm qid novolog insulin levemir 20 unit bid nutrition consult Laboratory Tests 01/19/18 01/20/18 01/20/18 06:00 05:29 11:35 Sodium Potassium Carbon Dioxide Anion Gap BUN Creatinine POC Glucometer 165 205 Hemoglobin A1c % 8.9 H 01/20/18 01/20/18 01/21/18 16:58 21:24 05:03 Sodium Potassium Carbon Dioxide Anion Gap BUN Creatinine POC Glucometer 229 187 138 Hemoglobin A1c % 01/21/18 06:25 Sodium 143 Potassium 4.3 Carbon Dioxide 25 Anion Gap 10 BUN 28 H Creatinine 2.1 H POC Glucometer Hemoglobin A1c %
[2018-01-21] MEDS: ATORVASTATIN CA 80 MG TABLET (FP) PO SCH (22:00)
[2018-01-21] MEDS: LIDOCAINE PATCH REMOVAL MC SCH (22:06)
[2018-01-22] MEDS: NITROGLYCERIN 2% OINTMENT - 1GM PACKET TD SCH ×4 (00:21→17:18)
[2018-01-22 00:29] VITALS: BMI 28.1
--- NOTE | 2018-01-22 00:35 | EKG ---
Test Reason : Blood Pressure : / mmHG Vent. Rate : 101 BPM Atrial Rate : 101 BPM P-R Int : 130 ms QRS Dur : 088 ms QT Int : 414 ms P-R-T Axes : 037 019 039 degrees QTc Int : 536 ms SINUS TACHYCARDIA WITH PREMATURE SUPRAVENTRICULAR COMPLEXES T WAVE ABNORMALITY, CONSIDER ANTERIOR ISCHEMIA PROLONGED QT ABNORMAL ECG WHEN COMPARED WITH ECG OF 18-JAN-2018 17:38, NO SIGNIFICANT CHANGE WAS FOUND Confirmed by ELAINE JENNINGS, DINESH ([id number]) on 01/22/2018 12:34:41 AM Referred By: Flor SKAGGS Confirmed By:DINESH HENRY MD
--- NOTE | 2018-01-22 00:41 | EKG ---
Test Reason : Blood Pressure : / mmHG Vent. Rate : 102 BPM Atrial Rate : 102 BPM P-R Int : 126 ms QRS Dur : 074 ms QT Int : 388 ms P-R-T Axes : 045 023 048 degrees QTc Int : 505 ms SINUS TACHYCARDIA T WAVE ABNORMALITY, CONSIDER ANTERIOR ISCHEMIA ABNORMAL ECG WHEN COMPARED WITH ECG OF 18-JAN-2018 10:56, NO SIGNIFICANT CHANGE WAS FOUND Confirmed by DINESH HENRY MD ([id number]) on 01/22/2018 12:41:19 AM Referred By: Confirmed By:DINESH HENRY MD
[2018-01-22] MEDS: PREGABALIN 50 MG CAPSULE PO SCH ×3 (06:39→21:37)
[2018-01-22] MEDS: INSULIN (LEVEMIR) 100 UNITS/ML UNITS SQ SCH ×2 (06:40→21:36)
[2018-01-22] MEDS: INSULIN SLIDING SCALE (NOVOLOG) 1 VIAL SQ SCH ×4 (06:40→21:37)
[2018-01-22] MEDS ORDERED: PT OWN MED DRAWER 7, Y5N ONE ×2 (07:01→20:57)
[2018-01-22] MEDS ORDERED: INSULIN (NOVOLOG) ASPART 100 UNITS/ML 10ML VIAL ONE (07:02)
[2018-01-22 08:03] LABS: HEMATOCRIT 25.7 % (32.4-45.2); HEMOGLOBIN 7.9 GM/dL (10.7-15.3); MCH 23.7 pg (25.7-33.7); MCHC 30.7 g/dl (32.0-36.0); MEAN CELL VOLUME 76.9 fl (80-96); MEAN PLT VOLUME 9.3 fl (7.5-11.1); PLATELET COUNT 308 K/MM3 (134-434); RBC 3.34 M/mm3 (3.60-5.2); RDW 19.4 % (11.6-15.6); WHITE BLOOD COUNT 9.8 K/mm3 (4.0-10.0)
[2018-01-22 08:18] LABS: INR 1.36 (0.82-1.09); PROTHROMBIN TIME (PATIENT) 15.4 SEC (9.7-13.0)
[2018-01-22 08:19] LABS: CHLORIDE 106 mmol/L (98-107); POTASSIUM 4.4 mmol/L (3.5-5.1); SODIUM 140 mmol/L (136-145)
[2018-01-22] MEDS: ALBUTEROL SO4 0.083% IH SOL 2.5 MG/3 ML VIAL.NEB. NEB SCH ×4 (08:35→19:10)
[2018-01-22] MEDS: BUDESONIDE 0.25 MG/2ML INH SUSP VIAL NEB SCH ×2 (09:00→22:16)
[2018-01-22 09:08] LABS: ANION GAP 7 (8-16); BLOOD UREA NITROGEN 23 mg/dL (7-18); CALCIUM 8.1 mg/dL (8.5-10.1); CO2 27 mmol/L (21-32); CREATININE 1.6 mg/dL (0.55-1.02); GLUCOSE,RANDOM 155 mg/dL (74-106)
[2018-01-22] MEDS: DOCUSATE SODIUM 100 MG CAPSULE (FP) PO SCH ×2 (09:43→21:37)
[2018-01-22] MEDS: LIDOCAINE 5% TOPICAL PATCH TP SCH (09:44)
[2018-01-22] MEDS: ASPIRIN COATED 81 MG TABLET.EC PO SCH (09:44)
[2018-01-22] MEDS: POLYETHYLENE GLYCOL 3350 119 GM BTL PO SCH (09:44)
[2018-01-22] MEDS: NYSTATIN POWDER 100,000 UNITS/GM - 15 GM TOPICAL POWDER TP SCH (09:44)
[2018-01-22] MEDS: LORazepam 0.5 MG TABLET PO SCH ×2 (09:44→21:36)
[2018-01-22] MEDS: oxyCODONE HCL 5 MG TABLET PO PRN ×3 (09:56→22:58)
--- NOTE | 2018-01-22 14:46 | CON.NEURO ---
Consult - Past Medical History CORN CUTTER: Yes: CVA (in 2015 -. holter then sg=howed rare APCs, TTE and TAWANNA unremarkable), Other (neuropathy) Cardio/Vascular: Yes: CAD (cath in 11/12 at [facility] [place]: LCx FLY, 80% small D1 -. med managed), HTN, Hyperlipdemia Pulmonary: Yes: Asthma, COPD Gastrointestinal: Yes: GERD ...LMP: 07/21/16 ...: No Musculoskeletal: Yes: Osteoarthritis, Other (herniated disc) Endocrine: Yes: Diabetes Mellitus (for over 20 yr s-. insulin for over 10 yrs) - Past Surgical History Past Surgical History: Yes: Bypass, Hernia Repair ([facility]). No: AV Fistula/ Graft - Alcohol/Substance Use Hx Alcohol Use: No History of Substance Use: reports: None - Smoking History Smoking history: Former smoker Have you smoked in the past 12 months: No Aproximately how many cigarettes per day: 5 If you are a former smoker, when did you quit?: 10 ya - Social History Usual Living Arrangement: With Spouse History of Recent Travel: No Home Medications - Allergies Allergies/Adverse Reactions: Allergies Allergy/AdvReac Type Severity Reaction Status Date / Time No Known Drug Allergies Allergy Verified 01/18/18 10:58 - Home Medications Home Medications: Ambulatory Orders Budesonide [Pulmicort 0.25 mg Nebulizer -] 1 neb PO BID 11/21/15 Liraglutide [Victoza -] 1.2 unit SQ DAILY@0700 11/21/15 Albuterol 0.083% Nebulizer Carolyn [Ventolin 0.083% Nebulizer Soln -] 1 amp NEB Q6HPO amp 12/15/15 Insulin (Novolog) [Novolog -] 0 units SQ ASDIR 04/15/16 Pregabalin [Lyrica -] 150 mg PO TID 04/15/16 Cholecalciferol (Vitamin D3) [Vitamin D3] 50,000 unit PO WEEKLY 04/16/16 Insulin Glargine,Hum.rec.anlog [Lantus (10mL VIAL) -] 65 units SQ AM 08/17/16 Meclizine HCl [Antivert -] 25 mg PO TID 08/17/16 Acetaminophen [Tylenol .Regular Strength -] 650 mg PO Q6H PRN #0 tablet Atorvastatin Ca [Lipitor] 20 mg PO HS #30 tablet 11/22/16 Docusate Sodium [Colace -] 100 mg PO BID #60 11/22/16 Iron Polysaccharides [Niferex-150 -] 150 mg PO DAILY #30 11/22/16 LORazepam [Ativan] 0.5 mg PO BID #60 tablet MDD 2 11/22/16 Meclizine HCl [Antivert -] 25 mg PO TID PRN #90 tablet 11/22/16 Mineral Oil/Pet Hy-Phl [Aquaphor -] 1 applic TP BID PRN #180 jar 11/22/16 Nystatin Powder [Nystop Powder -] 1 applic TP DAILY #1 applic 11/22/16 Polyethylene Glycol 3350 [Miralax 119 gm Btl -] 17 gm PO DAILY #180 bottle 11/22 oxyCODONE HCL [Roxicodone -] 10 mg PO Q6H PRN #120 tablet MDD 4 11/22/16 Warfarin Na [Coumadin -] 5 mg PO DAILY@1800 01/18/18 Family Disease History - Family Disease History Family Disease History: Diabetes: Mother ( in her late 50s ), Sister ( in her 40s of substance abuse), Other: Father (had CAV --. in his 70s) Physical Exam-Neuro Vital Signs: Vital Signs Temperature 98.5 F 01/22/18 06:00 Pulse Rate 94 H 01/22/18 06:00 Respiratory Rate 20 01/22/18 08:00 Blood Pressure 110/65 01/22/18 06:00 O2 Sat by Pulse Oximetry (%) 98 01/22/18 08:00 Labs: CBC, BMP 01/22/18 05:55 01/22/18 05:55 INR, PTT INR 1.36 (0.82-1.09) H 01/22/18 05:55 Assessment/Plan cc Left Foot drop HPI 43 year old female histor of DM, HTN, HLD, CAD, Protein deficiency, Diabetic Neuropathy, CKD. She has multiple LLE revascularization procedure done in past. She trip and fell and developed left lower extremity ,specially at left ankle. She coul dnot dorsiflex or platner flex left leg. Patient has neuropathy but this deficit is new PSH Bypass, Hernia Repair ([facility]). No: AV Fistula/Graft pMH as above. Former smoker ROS,SH,FH reviewed in chart. Home Medications: Budesonide [Pulmicort 0.25 mg Nebulizer -] 1 neb PO BID 11/21/15 Liraglutide [Victoza -] 1.2 unit SQ DAILY@0700 11/21/15 Albuterol 0.083% Nebulizer Carolyn [Ventolin 0.083% Nebulizer Soln -] 1 amp NEB Q6HPO amp 12/15/15 Insulin (Novolog) [Novolog -] 0 units SQ ASDIR 04/15/16 Pregabalin [Lyrica -] 150 mg PO TID 04/15/16 Cholecalciferol (Vitamin D3) [Vitamin D3] 50,000 unit PO WEEKLY 04/16/16 Insulin Glargine,Hum.rec.anlog [Lantus (10mL VIAL) -] 65 units SQ AM 08/17/16 Meclizine HCl [Antivert -] 25 mg PO TID 08/17/16 Acetaminophen [Tylenol .Regular Strength -] 650 mg PO Q6H PRN #0 tablet Atorvastatin Ca [Lipitor] 20 mg PO HS #30 tablet 11/22/16 Docusate Sodium [Colace -] 100 mg PO BID #60 11/22/16 Iron Polysaccharides [Niferex-150 -] 150 mg PO DAILY #30 11/22/16 LORazepam [Ativan] 0.5 mg PO BID #60 tablet MDD 2 11/22/16 Meclizine HCl [Antivert -] 25 mg PO TID PRN #90 tablet 11/22/16 Mineral Oil/Pet Hy-Phl [Aquaphor -] 1 applic TP BID PRN #180 jar 11/22/16 Nystatin Powder [Nystop Powder -] 1 applic TP DAILY #1 applic 11/22/16 Polyethylene Glycol 3350 [Miralax 119 gm Btl -] 17 gm PO DAILY #180 bottle 11/22 oxyCODONE HCL [Roxicodone -] 10 mg PO Q6H PRN #120 tablet MDD 4 11/22/16 Warfarin Na [Coumadin -] 5 mg PO DAILY@1800 01/18/18 Neurological Examination Alert oriented x 3, speech is normal cn all intact, eomi, pupils reactive, no face asymmetry motor is normal upper extremity Left dorsiflexion and planter flexion is grade 1/5 There is loss of eversion on left leg there is sensory dysthesia on dorsum and front of leg. right knee reflex is grade 2, and left knee reflex is diminished hip flexion, hip extension, knee flexion and extension is normal bilaterally There is diminished bilateral ankle reflex, normal strength on right dorsiflexion and extension Assessment- 1. Left foot drop, seem to be due to tripping and ? Common peroneal nerve injury , There is also loss of dorsiflexion indicating of tibial nerve injury, could be due to recent fall. Clinically there is no evidence of compartment syndrome . It is possible that nerve injury could also be due to L5- s1 Radiculopathy , as she do have left hip area pain Plan-- suggest to do ct of L spine and emg - PT Thanking you so much Matty Johnson MD
[2018-01-22] MEDS: HEPARIN INFUSION - 25,000 UNITS/500 ML INFUS.BAG IVPB SCH (14:56)
--- NOTE | 2018-01-22 15:16 | PN ---
Progress Note, Physician - Current Medication List Current Medications: Active Medications Acetaminophen (Tylenol -) 650 mg PO Q6H PRN PRN Reason: FEVER Last Admin: 01/21/18 22:01 Dose: 650 mg Albuterol Sulfate (Ventolin 0.083% Nebulizer Soln -) 1 amp NEB RQID [facility] Last Admin: 01/22/18 12:45 Dose: 1 amp Aspirin (Ecotrin -) 81 mg PO DAILY [facility] Last Admin: 01/22/18 09:44 Dose: 81 mg Atorvastatin Calcium (Lipitor -) 80 mg PO HS [facility] Last Admin: 01/21/18 22:00 Dose: 80 mg Budesonide (Pulmicort 0.25 Mg Nebulizer -) 1 amp NEB BID [facility] Last Admin: 01/22/18 09:00 Dose: Not Given Docusate Sodium (Colace -) 100 mg PO BID [facility] Last Admin: 01/22/18 09:43 Dose: 100 mg Emollient Ointment (Aquaphor -) 1 applic TP BID PRN PRN Reason: DRY SKIN Heparin Sodium (Porcine) (Heparin -) 5,000 unit IVPUSH PRN PRN PRN Reason: Heparin Last Admin: 01/20/18 09:55 Dose: 5,000 unit Heparin Sodium (Porcine) (Heparin -) 1,000 unit IVPUSH PRN PRN PRN Reason: Heparin Heparin Sodium/Dextrose (Heparin Infusion -) 25,000 units in 500 mls @ 20 mls/ hr IVPB TITR MICK; 1,000 UNITS/HR PRN Reason: Protocol Last Admin: 01/22/18 14:56 Dose: Not Given Insulin Aspart (Novolog Vial Sliding Scale -) 1 vial SQ ACHS [facility] PRN Reason: Protocol Last Admin: 01/22/18 12:11 Dose: 10 units Insulin Detemir (Levemir Vial) 20 units SQ BID@0700,2200 [facility] Last Admin: 01/22/18 06:40 Dose: Not Given Lidocaine (Lidoderm Patch -) 1 patch TP DAILY [facility] Last Admin: 01/22/18 09:44 Dose: 1 patch Lorazepam (Ativan -) 0.5 mg PO BID [facility] Last Admin: 01/22/18 09:44 Dose: 0.5 mg Meclizine HCl (Antivert -) 25 mg PO TID PRN PRN Reason: VERTIGO Miscellaneous (Lidoderm Patch Removal) 1 each MC DAILY@2200 [facility] Last Admin: 01/21/18 22:06 Dose: Not Given Nitroglycerin (Nitro-Bid 2% Paste -) 0.5 inch TD Q6HPO [facility] Last Admin: 01/22/18 13:00 Dose: 0.5 inch Nystatin (Nystop Powder -) 1 applic TP DAILY [facility] Last Admin: 01/22/18 09:44 Dose: 1 applic Oxycodone HCl (Roxicodone -) 10 mg PO Q6H PRN PRN Reason: PAIN LEVEL 6-10 Last Admin: 01/22/18 09:56 Dose: 10 mg Polyethylene Glycol (Miralax (For Daily Use) -) 17 gm PO DAILY [facility] Last Admin: 01/22/18 09:44 Dose: Not Given Pregabalin (Lyrica -) 150 mg PO TID [facility] Last Admin: 01/22/18 14:56 Dose: 150 mg Warfarin Sodium (Coumadin -) 5 mg PO DAILY@1800 [facility] Last Admin: 01/21/18 18:02 Dose: 5 mg - Objective Vital Signs: Vital Signs Temperature 98.5 F 01/22/18 06:00 Pulse Rate 94 H 01/22/18 06:00 Respiratory Rate 20 01/22/18 08:00 Blood Pressure 110/65 01/22/18 06:00 O2 Sat by Pulse Oximetry (%) 98 01/22/18 08:00 Labs: CBC, BMP 01/22/18 05:55 01/22/18 05:55 INR, PTT INR 1.36 (0.82-1.09) H 01/22/18 05:55 Problem List - Problems (1) NSTEMI (non-ST elevated myocardial infarction) Code(s): I21.4 - NON-ST ELEVATION (NSTEMI) MYOCARDIAL INFARCTION (2) Peripheral neuropathy Code(s): G62.9 - POLYNEUROPATHY, UNSPECIFIED Qualifiers: Peripheral neuropathy type: mononeuropathy, other Qualified Code(s): G58.8 - Other specified mononeuropathies (3) Type 2 diabetes mellitus with other diabetic kidney complication Code(s): E11.29 - TYPE 2 DIABETES MELLITUS W OTH DIABETIC KIDNEY COMPLICATION (4) Type 2 diabetes mellitus with retinopathy without macular edema Code(s): E11.319 - TYPE 2 DIABETES W UNSP DIABETIC RTNOP W/O MACULAR EDEMA Qualifiers: Diabetic retinopathy severity: with mild nonproliferative retinopathy (5) Anemia Code(s): D64.9 - ANEMIA, UNSPECIFIED (6) Peripheral arterial disease Code(s): I73.9 - PERIPHERAL VASCULAR DISEASE, UNSPECIFIED (7) Renal insufficiency Code(s): N28.9 - DISORDER OF KIDNEY AND URETER, UNSPECIFIED
--- NOTE | 2018-01-22 15:28 | PN ---
Progress Note, Physician History of Present Illness: seen and examined today in nad - Current Medication List Current Medications: Active Medications Acetaminophen (Tylenol -) 650 mg PO Q6H PRN PRN Reason: FEVER Last Admin: 01/21/18 22:01 Dose: 650 mg Albuterol Sulfate (Ventolin 0.083% Nebulizer Soln -) 1 amp NEB RQID [facility] Last Admin: 01/22/18 12:45 Dose: 1 amp Aspirin (Ecotrin -) 81 mg PO DAILY [facility] Last Admin: 01/22/18 09:44 Dose: 81 mg Atorvastatin Calcium (Lipitor -) 80 mg PO HS [facility] Last Admin: 01/21/18 22:00 Dose: 80 mg Budesonide (Pulmicort 0.25 Mg Nebulizer -) 1 amp NEB BID [facility] Last Admin: 01/22/18 09:00 Dose: Not Given Docusate Sodium (Colace -) 100 mg PO BID [facility] Last Admin: 01/22/18 09:43 Dose: 100 mg Emollient Ointment (Aquaphor -) 1 applic TP BID PRN PRN Reason: DRY SKIN Heparin Sodium (Porcine) (Heparin -) 5,000 unit IVPUSH PRN PRN PRN Reason: Heparin Last Admin: 01/20/18 09:55 Dose: 5,000 unit Heparin Sodium (Porcine) (Heparin -) 1,000 unit IVPUSH PRN PRN PRN Reason: Heparin Heparin Sodium/Dextrose (Heparin Infusion -) 25,000 units in 500 mls @ 20 mls/ hr IVPB TITR MICK; 1,000 UNITS/HR PRN Reason: Protocol Last Admin: 01/22/18 14:56 Dose: Not Given Insulin Aspart (Novolog Vial Sliding Scale -) 1 vial SQ ACHS [facility] PRN Reason: Protocol Last Admin: 01/22/18 12:11 Dose: 10 units Insulin Detemir (Levemir Vial) 20 units SQ BID@0700,2200 [facility] Last Admin: 01/22/18 06:40 Dose: Not Given Lidocaine (Lidoderm Patch -) 1 patch TP DAILY [facility] Last Admin: 01/22/18 09:44 Dose: 1 patch Lorazepam (Ativan -) 0.5 mg PO BID [facility] Last Admin: 01/22/18 09:44 Dose: 0.5 mg Meclizine HCl (Antivert -) 25 mg PO TID PRN PRN Reason: VERTIGO Miscellaneous (Lidoderm Patch Removal) 1 each MC DAILY@2200 [facility] Last Admin: 01/21/18 22:06 Dose: Not Given Nitroglycerin (Nitro-Bid 2% Paste -) 0.5 inch TD Q6HPO [facility] Last Admin: 01/22/18 13:00 Dose: 0.5 inch Nystatin (Nystop Powder -) 1 applic TP DAILY [facility] Last Admin: 01/22/18 09:44 Dose: 1 applic Oxycodone HCl (Roxicodone -) 10 mg PO Q6H PRN PRN Reason: PAIN LEVEL 6-10 Last Admin: 01/22/18 09:56 Dose: 10 mg Polyethylene Glycol (Miralax (For Daily Use) -) 17 gm PO DAILY [facility] Last Admin: 01/22/18 09:44 Dose: Not Given Pregabalin (Lyrica -) 150 mg PO TID [facility] Last Admin: 01/22/18 14:56 Dose: 150 mg Warfarin Sodium (Coumadin -) 5 mg PO DAILY@1800 [facility] Last Admin: 01/21/18 18:02 Dose: 5 mg - Objective Vital Signs: Vital Signs Temperature 98.5 F 01/22/18 06:00 Pulse Rate 94 H 01/22/18 06:00 Respiratory Rate 20 01/22/18 08:00 Blood Pressure 110/65 01/22/18 06:00 O2 Sat by Pulse Oximetry (%) 98 01/22/18 08:00 Constitutional: Yes: No Distress, Calm Eyes: Yes: Conjunctiva Clear, EOM Intact Neck: Yes: Supple, Trachea Midline Cardiovascular: Yes: Tachycardia, S1, S2. No: Regular Rate and Rhythm, Bradycardia, Pulse Irregular, Bruit, JVD, Gallop, Murmur, Rub, S3, S4, Varicosities Respiratory: Yes: Regular, CTA Bilaterally. No: Rales, Rhonchi, Wheezes Gastrointestinal: Yes: Normal Bowel Sounds, Soft. No: Distention, Tenderness Extremities: Yes: WNL Edema: No Peripheral Pulses WNL: Yes Peripheral Pulses: Left Doralis Pedis: 2+, Right Dorsalis Pedis: 2+ Neurological: Yes: Alert, Oriented Psychiatric: Yes: Alert, Oriented Labs: CBC, BMP 01/22/18 05:55 01/22/18 05:55 INR, PTT INR 1.36 (0.82-1.09) H 01/22/18 05:55 - ....Imaging Chest X-ray: Report Reviewed, Image Reviewed EKG: Report Reviewed, Image Reviewed Other: Report Reviewed, Image Reviewed (tele-sinus tach, apcs) Assessment/Plan 43 year old woman with a history of HTN, Diabetes, hyperlipidemia, CAD s/p PDI 2014, [place] 2014, CVA 2014, Protein S deficiency on coumadin, CKD, GERD, DJD, lt hip fx s/p ORIF 2016, multiple LLE revascularizations, bilat stents, admitted after a trip and fall with left leg, hip and knee pain. Denies LOC or chest pain, sob, orthopnea, pnd or edema. Echo 07/08/17: inc ef 70%, mild-mod mr, mild tr, mod phtn Nuclear stress test 12/31/14: small inferolateral infarct, no ischemia EF 63% Now noted with new anterior T wave inversions, elevated troponin and new REBA ( creat 1.1-->2.3). Problem List - Problems (1) NSTEMI (non-ST elevated myocardial infarction) Code(s): I21.4 - NON-ST ELEVATION (NSTEMI) MYOCARDIAL INFARCTION (2) Acute kidney injury superimposed on chronic kidney disease Code(s): N17.9 - ACUTE KIDNEY FAILURE, UNSPECIFIED; N18.9 - CHRONIC KIDNEY DISEASE, UNSPECIFIED Assessment/Plan Troponin trended down echo showed low normal LV systolic function, mild valvular abnl cont IV heparin bridge to coumadin (which she is on for Protein S deficiency Holding off on ischemia workup at this point given renal issues and comorbidities. cont lipitor 80 mg daily given CAD, PVD and diabetes.
--- NOTE | 2018-01-22 15:34 | CONSULT ---
Consult Consult Specialty:: Nephrology Reason for Consultation:: REBA - History of Present Illness Chief Complaint: initially had chest discomfort History of Present Illness: Pt is a 43 year old female with pmhx of HTN, DM, chol, CAD, CAD, protein S deficiency, CKD, GERD and DJD who presents to the ER with chest discomfort. She was found to have an NSTEMI. I was called to evaluate her for REBA as she was found to have elevated supervisor maintenance and custodians. She denies nsaid use. She denies shortness of breath. She denies dysuria or hematuria. She does have history of CKD and does follow with Dr Gallegos. - History Source History Provided By: Patient - Past Medical History [employer]: Yes: CVA (in 2015 -. holter then sg=howed rare APCs, TTE and TAWANNA unremarkable), Other (neuropathy) Cardio/Vascular: Yes: CAD (cath in 11/12 at [facility] [place]: LCx FLY, 80% small D1 -. med managed), HTN, Hyperlipdemia Pulmonary: Yes: Asthma, COPD Gastrointestinal: Yes: GERD ...LMP: 07/21/16 ...: No Musculoskeletal: Yes: Osteoarthritis, Other (herniated disc) Endocrine: Yes: Diabetes Mellitus (for over 20 yr s-. insulin for over 10 yrs) - Past Surgical History Past Surgical History: Yes: Bypass, Hernia Repair ([facility]). No: AV Fistula/ Graft - Alcohol/Substance Use Hx Alcohol Use: No History of Substance Use: reports: None - Smoking History Smoking history: Former smoker Have you smoked in the past 12 months: No Aproximately how many cigarettes per day: 5 If you are a former smoker, when did you quit?: 10 ya - Social History Usual Living Arrangement: With Spouse History of Recent Travel: No Home Medications - Allergies Allergies/Adverse Reactions: Allergies Allergy/AdvReac Type Severity Reaction Status Date / Time No Known Drug Allergies Allergy Verified 01/18/18 10:58 - Home Medications Home Medications: Ambulatory Orders Budesonide [Pulmicort 0.25 mg Nebulizer -] 1 neb PO BID 11/21/15 Liraglutide [Victoza -] 1.2 unit SQ DAILY@0700 11/21/15 Albuterol 0.083% Nebulizer Carolyn [Ventolin 0.083% Nebulizer Soln -] 1 amp NEB Q6HPO amp 12/15/15 Insulin (Novolog) [Novolog -] 0 units SQ ASDIR 04/15/16 Pregabalin [Lyrica -] 150 mg PO TID 04/15/16 Cholecalciferol (Vitamin D3) [Vitamin D3] 50,000 unit PO WEEKLY 04/16/16 Insulin Glargine,Hum.rec.anlog [Lantus (10mL VIAL) -] 65 units SQ AM 08/17/16 Meclizine HCl [Antivert -] 25 mg PO TID 08/17/16 Acetaminophen [Tylenol .Regular Strength -] 650 mg PO Q6H PRN #0 tablet Atorvastatin Ca [Lipitor] 20 mg PO HS #30 tablet 11/22/16 Docusate Sodium [Colace -] 100 mg PO BID #60 11/22/16 Iron Polysaccharides [Niferex-150 -] 150 mg PO DAILY #30 11/22/16 LORazepam [Ativan] 0.5 mg PO BID #60 tablet MDD 2 11/22/16 Meclizine HCl [Antivert -] 25 mg PO TID PRN #90 tablet 11/22/16 Mineral Oil/Pet Hy-Phl [Aquaphor -] 1 applic TP BID PRN #180 jar 11/22/16 Nystatin Powder [Nystop Powder -] 1 applic TP DAILY #1 applic 11/22/16 Polyethylene Glycol 3350 [Miralax 119 gm Btl -] 17 gm PO DAILY #180 bottle 11/22 oxyCODONE HCL [Roxicodone -] 10 mg PO Q6H PRN #120 tablet MDD 4 11/22/16 Warfarin Na [Coumadin -] 5 mg PO DAILY@1800 01/18/18 Family Disease History - Family Disease History Family Disease History: Diabetes: Mother ( in her late 50s ), Sister ( in her 40s of substance abuse), Other: Father (had CAV --. in his 70s) Review of Systems - Review of Systems Constitutional: reports: No Symptoms Eyes: reports: No Symptoms HENT: reports: No Symptoms Neck: reports: No Symptoms Cardiovascular: reports: No Symptoms Respiratory: reports: No Symptoms Gastrointestinal: reports: No Symptoms Genitourinary: reports: No Symptoms Musculoskeletal: reports: Joint Pain Neurological: reports: No Symptoms Endocrine: reports: No Symptoms Hematology/Lymphatic: reports: No Symptoms Psychiatric: reports: No Symptoms Physical Exam Vital Signs: Vital Signs Temperature 98.5 F 01/22/18 06:00 Pulse Rate 94 H 01/22/18 06:00 Respiratory Rate 20 01/22/18 08:00 Blood Pressure 110/65 01/22/18 06:00 O2 Sat by Pulse Oximetry (%) 98 01/22/18 08:00 Constitutional: Yes: Calm Eyes: Yes: Conjunctiva Clear HENT: Yes: Atraumatic Neck: Yes: Supple Cardiovascular: Yes: S1, S2 Respiratory: Yes: CTA Bilaterally Gastrointestinal: Yes: Normal Bowel Sounds, Soft Renal/: Yes: WNL Musculoskeletal: Yes: Other (hip pain) Edema: No Integumentary: Yes: Tattoos Neurological: Yes: Oriented Psychiatric: Yes: Oriented Labs: CBC, BMP 01/22/18 05:55 01/22/18 05:55 Laboratory Tests 11/21/16 01/18/18 01/18/18 07:30 11:17 23:30 Creatinine 1.5 H 2.3 H Troponin I 1.08 H* 0.78 H* Urine HCG, Qual 01/19/18 01/20/18 01/21/18 06:00 21:02 06:25 Creatinine 3.0 H Troponin I 0.26 H Urine HCG, Qual Negative 01/22/18 05:55 Creatinine 1.6 H Troponin I Urine HCG, Qual Problem List - Problems (1) NSTEMI (non-ST elevated myocardial infarction) Code(s): I21.4 - NON-ST ELEVATION (NSTEMI) MYOCARDIAL INFARCTION (2) Acute kidney injury superimposed on chronic kidney disease Code(s): N17.9 - ACUTE KIDNEY FAILURE, UNSPECIFIED; N18.9 - CHRONIC KIDNEY DISEASE, UNSPECIFIED Assessment/Plan Current Medications Generic Name Dose Route Start Last Admin Trade Name Freq PRN Reason Stop Dose Admin Acetaminophen 650 mg 01/18/18 15:23 01/21/18 22:01 Tylenol - PO 650 mg Q6H PRN Administration FEVER Albuterol Sulfate 1 amp 01/18/18 16:00 01/22/18 12:45 Ventolin 0.083% Nebulizer Soln - NEB 1 amp RQID MICK Administration Aspirin 81 mg 01/20/18 10:00 01/22/18 09:44 Ecotrin - PO 81 mg DAILY MICK Administration Atorvastatin Calcium 80 mg 01/20/18 22:00 01/21/18 22:00 Lipitor - PO 80 mg HS MICK Administration Budesonide 1 amp 01/18/18 22:00 01/22/18 09:00 Pulmicort 0.25 Mg Nebulizer - NEB Not Given BID MICK Docusate Sodium 100 mg 01/18/18 22:00 01/22/18 09:43 Colace - PO 100 mg BID MICK Administration Emollient Ointment 1 applic 01/18/18 15:23 Aquaphor - TP BID PRN DRY SKIN Heparin Sodium (Porcine) 5,000 unit 01/18/18 23:13 01/20/18 09:55 Heparin - IVPUSH 5,000 unit PRN PRN Administration Heparin Heparin Sodium (Porcine) 1,000 unit 01/18/18 23:13 Heparin - IVPUSH PRN PRN Heparin Heparin Sodium/Dextrose 25,000 units in 500 mls @ 20 mls/hr 01/18/18 14:00 14:56 Heparin Infusion - IVPB Not Given TITR [facility] Protocol 1,000 UNITS/HR Insulin Aspart 1 vial 01/18/18 23:52 01/22/18 12:11 Novolog Vial Sliding Scale - SQ 10 units ACHS [facility] Administration Protocol Insulin Detemir 20 units 01/18/18 22:00 01/22/18 06:40 Levemir Vial SQ Not Given BID@0700,2200 [facility] Lidocaine 1 patch 01/21/18 17:45 01/22/18 09:44 Lidoderm Patch - TP 1 patch DAILY [facility]ICK Administration Lorazepam 0.5 mg 01/18/18 22:00 01/22/18 09:44 Ativan - PO 0.5 mg BID MICK Administration Meclizine HCl 25 mg 01/18/18 15:23 Antivert - PO TID PRN VERTIGO Miscellaneous 1 each 01/21/18 22:00 01/21/18 22:06 Lidoderm Patch Removal MC Not Given DAILY@2200 [facility] Nitroglycerin 0.5 inch 01/20/18 12:00 01/22/18 13:00 Nitro-Bid 2% Paste - TD 0.5 inch Q6HPO [facility]ICK Administration Nystatin 1 applic 01/19/18 10:00 01/22/18 09:44 Nystop Powder - TP 1 applic DAILY [facility] Administration Oxycodone HCl 10 mg 01/21/18 21:16 01/22/18 09:56 Roxicodone - PO 10 mg Q6H PRN Administration PAIN LEVEL 6-10 Polyethylene Glycol 17 gm 01/19/18 10:00 01/22/18 09:44 Miralax (For Daily Use) - PO Not Given DAILY [facility] Pregabalin 150 mg 01/18/18 22:00 01/22/18 14:56 Lyrica - PO 150 mg TID MICK Administration Warfarin Sodium 5 mg 01/18/18 18:00 01/21/18 18:02 Coumadin - PO 5 mg DAILY@1800 [facility] Administration Laboratory Tests 11/03/16 07/17/17 07/19/17 06:45 05:10 05:10 EWA Screen c-ANCA <1:20 Proteinase 3 (PR3) <3.5 p-ANCA <1:20 Atypical p-ANCA <1:20 Myeloperoxidase Ab <9.0 Double Strand DNA Ab [id number] Ab <9 Beta-2-GPI IgM Ab <9 Anti-Cardiolipin IgG Ab <9 Anti-Cardiolipin IgA Ab <9 Anti-Cardiolipin IgM Ab <9 Free [place] LC, Quant 66.4 H Free Lambda LC, Quant 59.3 H Free [place]/Lambda Ratio 1.12 07/19/17 07/19/17 05:10 05:10 EWA Screen Positive H c-ANCA Proteinase 3 (PR3) p-ANCA Atypical p-ANCA Myeloperoxidase Ab Double Strand DNA Ab <1 [id number] Ab Beta-2-GPI IgM Ab Anti-Cardiolipin IgG Ab Anti-Cardiolipin IgA Ab Anti-Cardiolipin IgM Ab Free [place] LC, Quant Free Lambda LC, Quant Free [place]/Lambda Ratio reviewed old labs Impression 1. REBA improving 2. CKD 3. hyperkalemia 4. DM 5. protein s def 6. NSTEMI 7. CAD Plan - renal function is improving - check ua, lytes and supervisor maintenance and custodians - repeat labs in am - check renal ultrasound - will follow Dr Dugan
[2018-01-22] MEDS: WARFARIN NA 5 MG TABLET (UD) PO SCH (17:15)
--- NOTE | 2018-01-22 17:59 | PN ---
Progress Note, Physician Chief Complaint: AWAKE ALERT LEFT FOOT DROP CONTINUES NO FEVER NO CHILLS DENIES LEG PAIN - Current Medication List Current Medications: Active Medications Acetaminophen (Tylenol -) 650 mg PO Q6H PRN PRN Reason: FEVER Last Admin: 01/21/18 22:01 Dose: 650 mg Albuterol Sulfate (Ventolin 0.083% Nebulizer Soln -) 1 amp NEB RQID [facility] Last Admin: 01/22/18 16:00 Dose: 1 amp Aspirin (Ecotrin -) 81 mg PO DAILY [facility] Last Admin: 01/22/18 09:44 Dose: 81 mg Atorvastatin Calcium (Lipitor -) 80 mg PO HS [facility] Last Admin: 01/21/18 22:00 Dose: 80 mg Budesonide (Pulmicort 0.25 Mg Nebulizer -) 1 amp NEB BID [facility] Last Admin: 01/22/18 09:00 Dose: Not Given Docusate Sodium (Colace -) 100 mg PO BID [facility] Last Admin: 01/22/18 09:43 Dose: 100 mg Emollient Ointment (Aquaphor -) 1 applic TP BID PRN PRN Reason: DRY SKIN Heparin Sodium (Porcine) (Heparin -) 5,000 unit IVPUSH PRN PRN PRN Reason: Heparin Last Admin: 01/20/18 09:55 Dose: 5,000 unit Heparin Sodium (Porcine) (Heparin -) 1,000 unit IVPUSH PRN PRN PRN Reason: Heparin Heparin Sodium/Dextrose (Heparin Infusion -) 25,000 units in 500 mls @ 20 mls/ hr IVPB TITR MICK; 1,000 UNITS/HR PRN Reason: Protocol Last Admin: 01/22/18 14:56 Dose: Not Given Insulin Aspart (Novolog Vial Sliding Scale -) 1 vial SQ ACHS [facility] PRN Reason: Protocol Last Admin: 01/22/18 17:16 Dose: 3 units Insulin Detemir (Levemir Vial) 20 units SQ BID@0700,2200 [facility] Last Admin: 01/22/18 06:40 Dose: Not Given Lidocaine (Lidoderm Patch -) 1 patch TP DAILY [facility] Last Admin: 01/22/18 09:44 Dose: 1 patch Lorazepam (Ativan -) 0.5 mg PO BID [facility] Last Admin: 01/22/18 09:44 Dose: 0.5 mg Meclizine HCl (Antivert -) 25 mg PO TID PRN PRN Reason: VERTIGO Miscellaneous (Lidoderm Patch Removal) 1 each MC DAILY@2200 [facility] Last Admin: 01/21/18 22:06 Dose: Not Given Nitroglycerin (Nitro-Bid 2% Paste -) 0.5 inch TD Q6HPO [facility] Last Admin: 01/22/18 17:18 Dose: 0.5 inch Nystatin (Nystop Powder -) 1 applic TP DAILY [facility] Last Admin: 01/22/18 09:44 Dose: 1 applic Oxycodone HCl (Roxicodone -) 10 mg PO Q6H PRN PRN Reason: PAIN LEVEL 6-10 Last Admin: 01/22/18 17:14 Dose: 10 mg Polyethylene Glycol (Miralax (For Daily Use) -) 17 gm PO DAILY [facility] Last Admin: 01/22/18 09:44 Dose: Not Given Pregabalin (Lyrica -) 150 mg PO TID [facility] Last Admin: 01/22/18 14:56 Dose: 150 mg Warfarin Sodium (Coumadin -) 5 mg PO DAILY@1800 [facility] Last Admin: 01/22/18 17:15 Dose: 5 mg - Objective Vital Signs: Vital Signs Temperature 98.4 F 01/22/18 14:00 Pulse Rate 100 H 01/22/18 14:00 Respiratory Rate 20 01/22/18 14:00 Blood Pressure 104/55 01/22/18 14:00 O2 Sat by Pulse Oximetry (%) 98 01/22/18 08:00 Constitutional: Yes: Mild Distress Eyes: Yes: WNL HENT: Yes: WNL Neck: Yes: WNL Cardiovascular: Yes: WNL Respiratory: Yes: WNL Gastrointestinal: Yes: WNL Genitourinary: Yes: WNL Musculoskeletal: Yes: Muscle Weakness Extremities: Yes: Other Edema: No Peripheral Pulses WNL: Yes Integumentary: Yes: WNL Wound/Incision: Yes: Clean/Dry Neurological: Yes: Weakness (LLE FOOT DROP) ...Motor Strength: LLE Psychiatric: Yes: WNL Labs: CBC, BMP 01/22/18 05:55 01/22/18 05:55 INR, PTT INR 1.36 (0.82-1.09) H 01/22/18 05:55 Problem List - Problems (1) NSTEMI (non-ST elevated myocardial infarction) Code(s): I21.4 - NON-ST ELEVATION (NSTEMI) MYOCARDIAL INFARCTION (2) Peripheral neuropathy Code(s): G62.9 - POLYNEUROPATHY, UNSPECIFIED Qualifiers: Peripheral neuropathy type: mononeuropathy, other Qualified Code(s): G58.8 - Other specified mononeuropathies (3) Type 2 diabetes mellitus with other diabetic kidney complication Code(s): E11.29 - TYPE 2 DIABETES MELLITUS W OTH DIABETIC KIDNEY COMPLICATION (4) Type 2 diabetes mellitus with retinopathy without macular edema Code(s): E11.319 - TYPE 2 DIABETES W UNSP DIABETIC RTNOP W/O MACULAR EDEMA Qualifiers: Diabetic retinopathy severity: with mild nonproliferative retinopathy (5) Anemia Code(s): D64.9 - ANEMIA, UNSPECIFIED (6) Peripheral arterial disease Code(s): I73.9 - PERIPHERAL VASCULAR DISEASE, UNSPECIFIED (7) Renal insufficiency Code(s): N28.9 - DISORDER OF KIDNEY AND URETER, UNSPECIFIED Assessment/Plan ORDERING ARTERIAL DOPPLER OF LEFT LEG R/O GRAFT OCCLUSION NORMAL CANNOT HAVE MRI DUE TO METAL STENTS/PLATES PAIN CONTROL NEUROLOGY CONSULT APPRECIATED CT LUMBAR SPINE TO R/U LUMBAR DISC DISEASE VASCULAR DR CELESTE CARDIAC WORKUP CONTINUE TELEMETRY MONITORING
[2018-01-22] MEDS: ATORVASTATIN CA 80 MG TABLET (FP) PO SCH (21:37)
[2018-01-22] MEDS: ACETAMINOPHEN 325 MG TABLET (FP) PO PRN (22:57)
[2018-01-22] MEDS: LIDOCAINE PATCH REMOVAL MC SCH (23:00)
[2018-01-23] MEDS: oxyCODONE HCL 5 MG TABLET PO PRN ×2 (05:20→21:52)
[2018-01-23] MEDS: NITROGLYCERIN 2% OINTMENT - 1GM PACKET TD SCH ×5 (06:00→23:47)
[2018-01-23] MEDS: PREGABALIN 50 MG CAPSULE PO SCH ×3 (06:00→21:52)
[2018-01-23] MEDS: INSULIN (LEVEMIR) 100 UNITS/ML UNITS SQ SCH ×2 (06:30→22:02)
[2018-01-23 06:40] LABS: HEMATOCRIT 25.8 % (32.4-45.2); HEMOGLOBIN 7.9 GM/dL (10.7-15.3); MCH 23.6 pg (25.7-33.7); MCHC 30.6 g/dl (32.0-36.0); MEAN PLT VOLUME 9.4 fl (7.5-11.1); PLATELET COUNT 336 K/MM3 (134-434); RBC 3.35 M/mm3 (3.60-5.2); RDW 19.3 % (11.6-15.6); WHITE BLOOD COUNT 9.4 K/mm3 (4.0-10.0)
[2018-01-23] MEDS: INSULIN SLIDING SCALE (NOVOLOG) 1 VIAL SQ SCH ×4 (07:34→22:02)
[2018-01-23] MEDS: ALBUTEROL SO4 0.083% IH SOL 2.5 MG/3 ML VIAL.NEB. NEB SCH ×4 (07:38→20:32)
[2018-01-23] MEDS: HEPARIN INFUSION - 25,000 UNITS/500 ML INFUS.BAG IVPB SCH (08:00)
[2018-01-23 09:11] LABS: INR 1.55 (0.82-1.09); PROTHROMBIN TIME (PATIENT) 17.5 SEC (9.7-13.0)
[2018-01-23] MEDS: BUDESONIDE 0.25 MG/2ML INH SUSP VIAL NEB SCH ×2 (09:50→21:43)
[2018-01-23 10:00] LABS: ALBUMIN 2.2 g/dl (3.4-5.0); ALK PHOS 123 U/L (45-117); ANION GAP 9 (8-16); BILIRUBIN,TOTAL 0.1 mg/dL (0.2-1.0); BLOOD UREA NITROGEN 22 mg/dL (7-18); CALCIUM 8.3 mg/dL (8.5-10.1); CHLORIDE 108 mmol/L (98-107); CO2 27 mmol/L (21-32); CREATININE 1.5 mg/dL (0.55-1.02); GLUCOSE,RANDOM 151 mg/dL (74-106); POTASSIUM 5.2 mmol/L (3.5-5.1); SGOT/AST 29 U/L (15-37); SGPT/ALT 20 U/L (12-78); SODIUM 144 mmol/L (136-145); TOT PROT 6.3 g/dl (6.4-8.2)
--- NOTE | 2018-01-23 10:39 | PN ---
Progress Note, Physician History of Present Illness: nad, no overnight events. - Current Medication List Current Medications: Active Medications Acetaminophen (Tylenol -) 650 mg PO Q6H PRN PRN Reason: FEVER Last Admin: 01/22/18 22:57 Dose: 650 mg Albuterol Sulfate (Ventolin 0.083% Nebulizer Soln -) 1 amp NEB RQID [facility] Last Admin: 01/23/18 07:38 Dose: 1 amp Aspirin (Ecotrin -) 81 mg PO DAILY [facility] Last Admin: 01/22/18 09:44 Dose: 81 mg Atorvastatin Calcium (Lipitor -) 80 mg PO HS [facility] Last Admin: 01/22/18 21:37 Dose: 80 mg Budesonide (Pulmicort 0.25 Mg Nebulizer -) 1 amp NEB BID [facility] Last Admin: 01/23/18 09:50 Dose: Not Given Docusate Sodium (Colace -) 100 mg PO BID [facility] Last Admin: 01/22/18 21:37 Dose: 100 mg Emollient Ointment (Aquaphor -) 1 applic TP BID PRN PRN Reason: DRY SKIN Heparin Sodium (Porcine) (Heparin -) 5,000 unit IVPUSH PRN PRN PRN Reason: Heparin Last Admin: 01/20/18 09:55 Dose: 5,000 unit Heparin Sodium (Porcine) (Heparin -) 1,000 unit IVPUSH PRN PRN PRN Reason: Heparin Heparin Sodium/Dextrose (Heparin Infusion -) 25,000 units in 500 mls @ 20 mls/ hr IVPB TITR [facility]; Protocol Last Admin: 01/22/18 14:56 Dose: Not Given Insulin Aspart (Novolog Vial Sliding Scale -) 1 vial SQ ACHS [facility]; Protocol Last Admin: 01/23/18 07:34 Dose: Not Given Insulin Detemir (Levemir Vial) 20 units SQ BID@0700,2200 [facility] Last Admin: 01/23/18 06:30 Dose: 20 units Lidocaine (Lidoderm Patch -) 1 patch TP DAILY [facility] Last Admin: 01/22/18 09:44 Dose: 1 patch Lorazepam (Ativan -) 0.5 mg PO BID [facility] Last Admin: 01/22/18 21:36 Dose: 0.5 mg Meclizine HCl (Antivert -) 25 mg PO TID PRN PRN Reason: VERTIGO Miscellaneous (Lidoderm Patch Removal) 1 each MC DAILY@2200 [facility] Last Admin: 01/22/18 23:00 Dose: Not Given Nitroglycerin (Nitro-Bid 2% Paste -) 0.5 inch TD Q6HPO [facility] Last Admin: 01/23/18 06:00 Dose: 0.5 inch Nystatin (Nystop Powder -) 1 applic TP DAILY [facility] Last Admin: 01/22/18 09:44 Dose: 1 applic Oxycodone HCl (Roxicodone -) 10 mg PO Q6H PRN PRN Reason: PAIN LEVEL 6-10 Last Admin: 01/23/18 05:20 Dose: 10 mg Polyethylene Glycol (Miralax (For Daily Use) -) 17 gm PO DAILY [facility] Last Admin: 01/22/18 09:44 Dose: Not Given Pregabalin (Lyrica -) 150 mg PO TID [facility] Last Admin: 01/23/18 06:00 Dose: 150 mg Warfarin Sodium (Coumadin -) 5 mg PO DAILY@1800 [facility] Last Admin: 01/22/18 17:15 Dose: 5 mg - Objective Vital Signs: Vital Signs Temperature 98.7 F 01/23/18 05:00 Pulse Rate 89 01/23/18 05:00 Respiratory Rate 18 01/23/18 05:00 Blood Pressure 98/60 01/23/18 05:00 O2 Sat by Pulse Oximetry (%) 99 01/22/18 20:55 Constitutional: Yes: No Distress, Calm Eyes: Yes: Conjunctiva Clear, EOM Intact HENT: Yes: Atraumatic, Normocephalic Cardiovascular: Yes: Tachycardia, S1, S2. No: Regular Rate and Rhythm, Bradycardia, Pulse Irregular, Bruit, JVD, Gallop, Murmur, Rub, S3, S4, Varicosities Respiratory: Yes: Regular. No: Rales, Rhonchi, Wheezes Gastrointestinal: Yes: Normal Bowel Sounds, Soft Neurological: Yes: Alert, Oriented Psychiatric: Yes: Alert, Oriented Labs: CBC, BMP 01/23/18 05:00 01/23/18 06:00 INR, PTT INR 1.55 (0.82-1.09) H 01/23/18 09:00 - ....Imaging Chest X-ray: Report Reviewed, Image Reviewed EKG: Report Reviewed, Image Reviewed Other: Report Reviewed, Image Reviewed (tele-sinus tach, no arrhythmias) Assessment/Plan 43 year old woman with a history of HTN, Diabetes, hyperlipidemia, CAD s/p PDI 2014, [place] 2014, CVA 2014, Protein S deficiency on coumadin, CKD, GERD, DJD, lt hip fx s/p ORIF 2016, multiple LLE revascularizations, bilat stents, admitted after a trip and fall with left leg, hip and knee pain. Denies LOC or chest pain, sob, orthopnea, pnd or edema. Echo 07/08/17: inc ef 70%, mild-mod mr, mild tr, mod phtn Nuclear stress test 12/31/14: small inferolateral infarct, no ischemia EF 63% Now noted with new anterior T wave inversions, elevated troponin and new REBA ( creat 1.1-->2.3). Problem List Assessment/Plan Troponin trended down Unlikely ACS echo showed low normal LV systolic function, mild valvular abnl cont IV heparin bridge to coumadin (which she is on for Protein S deficiency) Holding off on ischemia workup at this point given renal issues and comorbidities. cont lipitor 80 mg daily given CAD, PVD and diabetes. No additional planned inpatient cardiac work up at this time, ok to dc tele
[2018-01-23 10:48] LABS: URINE APPEARANCE SLCLOUDY; URINE BILIRUBIN NEGATIVE (<2.0 mg/dL); URINE COLOR LTYELLOW; URINE GLUCOSE (UA) NEGATIVE (NEGATIVE); URINE KETONE NEGATIVE (NEGATIVE); URINE NITRITE NEGATIVE (NEGATIVE); URINE PROTEIN NEGATIVE (NEGATIVE); URINE UROBILINOGEN NEGATIVE mg/dL (0.2-1.0)
[2018-01-23] MEDS: DOCUSATE SODIUM 100 MG CAPSULE (FP) PO SCH ×2 (10:56→21:51)
[2018-01-23] MEDS: LORazepam 0.5 MG TABLET PO SCH ×2 (10:56→21:53)
[2018-01-23] MEDS: LIDOCAINE 5% TOPICAL PATCH TP SCH (10:56)
[2018-01-23] MEDS: POLYETHYLENE GLYCOL 3350 119 GM BTL PO SCH (10:56)
[2018-01-23] MEDS: NYSTATIN POWDER 100,000 UNITS/GM - 15 GM TOPICAL POWDER TP SCH (10:56)
[2018-01-23] MEDS: ASPIRIN COATED 81 MG TABLET.EC PO SCH (10:56)
[2018-01-23 11:08] LABS: URINE LEUK ESTERASE 3+ (NEGATIVE)
--- NOTE | 2018-01-23 11:17 | PN ---
Progress Note, Physician Chief Complaint: Awake alert denies chest pain - Current Medication List Current Medications: Active Medications Acetaminophen (Tylenol -) 650 mg PO Q6H PRN PRN Reason: FEVER Last Admin: 01/22/18 22:57 Dose: 650 mg Albuterol Sulfate (Ventolin 0.083% Nebulizer Soln -) 1 amp NEB RQID [facility] Last Admin: 01/23/18 07:38 Dose: 1 amp Aspirin (Ecotrin -) 81 mg PO DAILY [facility] Last Admin: 01/23/18 10:56 Dose: 81 mg Atorvastatin Calcium (Lipitor -) 80 mg PO HS [facility] Last Admin: 01/22/18 21:37 Dose: 80 mg Budesonide (Pulmicort 0.25 Mg Nebulizer -) 1 amp NEB BID [facility] Last Admin: 01/23/18 09:50 Dose: Not Given Docusate Sodium (Colace -) 100 mg PO BID [facility] Last Admin: 01/23/18 10:56 Dose: 100 mg Emollient Ointment (Aquaphor -) 1 applic TP BID PRN PRN Reason: DRY SKIN Heparin Sodium (Porcine) (Heparin -) 5,000 unit IVPUSH PRN PRN PRN Reason: Heparin Last Admin: 01/20/18 09:55 Dose: 5,000 unit Heparin Sodium (Porcine) (Heparin -) 1,000 unit IVPUSH PRN PRN PRN Reason: Heparin Heparin Sodium/Dextrose (Heparin Infusion -) 25,000 units in 500 mls @ 20 mls/ hr IVPB TITR [facility]; Protocol Last Admin: 01/22/18 14:56 Dose: Not Given Insulin Aspart (Novolog Vial Sliding Scale -) 1 vial SQ ACHS [facility]; Protocol Last Admin: 01/23/18 07:34 Dose: Not Given Insulin Detemir (Levemir Vial) 20 units SQ BID@0700,2200 [facility] Last Admin: 01/23/18 06:30 Dose: 20 units Lidocaine (Lidoderm Patch -) 1 patch TP DAILY [facility] Last Admin: 01/23/18 10:56 Dose: 1 patch Lorazepam (Ativan -) 0.5 mg PO BID [facility] Last Admin: 01/23/18 10:56 Dose: 0.5 mg Meclizine HCl (Antivert -) 25 mg PO TID PRN PRN Reason: VERTIGO Miscellaneous (Lidoderm Patch Removal) 1 each MC DAILY@2200 [facility] Last Admin: 01/22/18 23:00 Dose: Not Given Nitroglycerin (Nitro-Bid 2% Paste -) 0.5 inch TD Q6HPO [facility] Last Admin: 01/23/18 06:00 Dose: 0.5 inch Nystatin (Nystop Powder -) 1 applic TP DAILY [facility] Last Admin: 01/23/18 10:56 Dose: 1 applic Oxycodone HCl (Roxicodone -) 10 mg PO Q6H PRN PRN Reason: PAIN LEVEL 6-10 Last Admin: 01/23/18 05:20 Dose: 10 mg Polyethylene Glycol (Miralax (For Daily Use) -) 17 gm PO DAILY [facility] Last Admin: 01/23/18 10:56 Dose: Not Given Pregabalin (Lyrica -) 150 mg PO TID [facility] Last Admin: 01/23/18 06:00 Dose: 150 mg Warfarin Sodium (Coumadin -) 5 mg PO DAILY@1800 [facility] Last Admin: 01/22/18 17:15 Dose: 5 mg - Objective Vital Signs: Vital Signs Temperature 98.7 F 01/23/18 05:00 Pulse Rate 89 01/23/18 05:00 Respiratory Rate 18 01/23/18 05:00 Blood Pressure 98/60 01/23/18 05:00 O2 Sat by Pulse Oximetry (%) 99 01/22/18 20:55 Constitutional: Yes: Mild Distress Eyes: Yes: WNL HENT: Yes: WNL Neck: Yes: WNL Cardiovascular: Yes: WNL Respiratory: Yes: WNL Gastrointestinal: Yes: WNL Genitourinary: Yes: WNL Musculoskeletal: Yes: Muscle Pain Extremities: Yes: WNL Edema: No Peripheral Pulses WNL: Yes Integumentary: Yes: WNL Wound/Incision: Yes: Clean/Dry Neurological: Yes: Loss of Sensation (LEFT FOOT DROP) ...Motor Strength: LLE Psychiatric: Yes: WNL Labs: CBC, BMP 01/23/18 05:00 01/23/18 06:00 INR, PTT INR 1.55 (0.82-1.09) H 01/23/18 09:00 Problem List - Problems (1) NSTEMI (non-ST elevated myocardial infarction) Code(s): I21.4 - NON-ST ELEVATION (NSTEMI) MYOCARDIAL INFARCTION (2) Peripheral neuropathy Code(s): G62.9 - POLYNEUROPATHY, UNSPECIFIED Qualifiers: Peripheral neuropathy type: mononeuropathy, other Qualified Code(s): G58.8 - Other specified mononeuropathies (3) Type 2 diabetes mellitus with other diabetic kidney complication Code(s): E11.29 - TYPE 2 DIABETES MELLITUS W OTH DIABETIC KIDNEY COMPLICATION (4) Type 2 diabetes mellitus with retinopathy without macular edema Code(s): E11.319 - TYPE 2 DIABETES W UNSP DIABETIC RTNOP W/O MACULAR EDEMA Qualifiers: Diabetic retinopathy severity: with mild nonproliferative retinopathy (5) Anemia Code(s): D64.9 - ANEMIA, UNSPECIFIED (6) Peripheral arterial disease Code(s): I73.9 - PERIPHERAL VASCULAR DISEASE, UNSPECIFIED (7) Renal insufficiency Code(s): N28.9 - DISORDER OF KIDNEY AND URETER, UNSPECIFIED Assessment/Plan CT LUMBAR SPINE NO ACUTE CHANGES IV HEPARIN---BRIDGE TO COUMADIN VASCULAR SURGERY CONSULT DR CELESTE NEUROLOGY WORKUP IN PROGRESS FOOT DROP ARISTIDES FROM FALL 1 WEEK AGO ORTHOPEDICS AND CARDIOLOGY NO EVENTS AT THIS TIME EKG WITH NEW CHANGES OF T-WAVE INVERSION CARDIOLOGY AWARE
--- NOTE | 2018-01-23 11:23 | PN ---
Progress Note (short form) - Note Progress Note: Ortho Pt seen and examined. still c/o pain in left hip PE- + ttp mostly over GT and LS spine, decr rom secondary to pain, equal limb lengths CT scan of hip early AVN without collapse CT scan no acute pathology unchanged when compared to CT in 2013 Doppler shows occluded fem bypass graft EMG pending a/p PT eval neurology f/u- emg AFO d/w Dr. Torre
[2018-01-23 11:55] LABS: EPI CELLS RARE /HPF (FEW); URINE BACTERIA RARE /hpf (NONE SEEN)
--- NOTE | 2018-01-23 12:16 | CONSULT ---
Consult Consult Specialty:: Vascular Surgery - History of Present Illness History of Present Illness: 43 year old woman with extensive history of vascular interventions for left iliac occlusion. Most recently she required a ilio-femoral bypass after prior fem-fem and ilio-fem bypasses failed. She is now admitted after a fall with left hip pain, foot pain and numbness and foot drop. Her last arterial doppler was in April 2017 with FELIX 0.8 in left foot. She routinely misses appointments for follow-up studies. 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 holter then sg=howed rare APCs, TTE and TAWANNA unremarkable), Other (neuropathy) Cardio/Vascular: Yes: CAD (cath in 11/12 at [facility] [place]: LCx FLY, 80% small D1 -. med managed), HTN, Hyperlipdemia Pulmonary: Yes: Asthma, COPD Gastrointestinal: Yes: GERD ...LMP: 07/21/16 ...: No Musculoskeletal: Yes: Osteoarthritis, Other (herniated disc) Endocrine: Yes: Diabetes Mellitus (for over 20 yr s-. insulin for over 10 yrs) - Past Surgical History Past Surgical History: Yes: Bypass, Hernia Repair ([facility]). No: AV Fistula/ Graft - Alcohol/Substance Use Hx Alcohol Use: No History of Substance Use: reports: None - Smoking History Smoking history: Former smoker Have you smoked in the past 12 months: No Aproximately how many cigarettes per day: 5 If you are a former smoker, when did you quit?: 10 ya - Social History Usual Living Arrangement: With Spouse History of Recent Travel: No Home Medications - Allergies Allergies/Adverse Reactions: Allergies Allergy/AdvReac Type Severity Reaction Status Date / Time No Known Drug Allergies Allergy Verified 01/18/18 10:58 - Home Medications Home Medications: Ambulatory Orders Budesonide [Pulmicort 0.25 mg Nebulizer -] 1 neb PO BID 11/21/15 Liraglutide [Victoza -] 1.2 unit SQ DAILY@0700 11/21/15 Albuterol 0.083% Nebulizer Carolyn [Ventolin 0.083% Nebulizer Soln -] 1 amp NEB Q6HPO amp 12/15/15 Insulin (Novolog) [Novolog -] 0 units SQ ASDIR 04/15/16 Pregabalin [Lyrica -] 150 mg PO TID 04/15/16 Cholecalciferol (Vitamin D3) [Vitamin D3] 50,000 unit PO WEEKLY 04/16/16 Insulin Glargine,Hum.rec.anlog [Lantus (10mL VIAL) -] 65 units SQ AM 08/17/16 Meclizine HCl [Antivert -] 25 mg PO TID 08/17/16 Acetaminophen [Tylenol .Regular Strength -] 650 mg PO Q6H PRN #0 tablet Atorvastatin Ca [Lipitor] 20 mg PO HS #30 tablet 11/22/16 Docusate Sodium [Colace -] 100 mg PO BID #60 11/22/16 Iron Polysaccharides [Niferex-150 -] 150 mg PO DAILY #30 11/22/16 LORazepam [Ativan] 0.5 mg PO BID #60 tablet MDD 2 11/22/16 Meclizine HCl [Antivert -] 25 mg PO TID PRN #90 tablet 11/22/16 Mineral Oil/Pet Hy-Phl [Aquaphor -] 1 applic TP BID PRN #180 jar 11/22/16 Nystatin Powder [Nystop Powder -] 1 applic TP DAILY #1 applic 11/22/16 Polyethylene Glycol 3350 [Miralax 119 gm Btl -] 17 gm PO DAILY #180 bottle 11/22 oxyCODONE HCL [Roxicodone -] 10 mg PO Q6H PRN #120 tablet MDD 4 11/22/16 Warfarin Na [Coumadin -] 5 mg PO DAILY@1800 01/18/18 Family Disease History - Family Disease History Family Disease History: Diabetes: Mother ( in her late 50s ), Sister ( in her 40s of substance abuse), Other: Father (had CAV --. in his 70s) Physical Exam Vital Signs: Vital Signs Temperature 98.1 F 01/23/18 08:00 Pulse Rate 92 H 01/23/18 08:00 Respiratory Rate 18 01/23/18 08:00 Blood Pressure 102/68 01/23/18 08:00 O2 Sat by Pulse Oximetry (%) 100 01/23/18 08:00 Constitutional: Yes: No Distress Extremities: Yes: Other (Foot warm, small eschar on medial 1st metatarsal skin, no open wound.) Edema: No Peripheral Pulses WNL: No (Left DP absent, PT biphasic doppler) ...Motor Strength: LLE (foot drop) Labs: CBC, BMP 01/23/18 05:00 01/23/18 06:00 Imaging - Results Ultrasound: Image Reviewed (biphasic signals in left SFA, popliteal, tibials. Old occluded fem-fem. Ilio-fem bypass was not imaged) Problem List - Problems (1) Peripheral arterial disease Assessment/Plan: Currently exam suggests loss of inflow from ilio-femoral byapss. Unfortunately this may not be salvageable if it has been closed for too long. Await arterial doppler study to confirm decrease in FELIX. Contrast angiogram will likely be needed. Code(s): I73.9 - PERIPHERAL VASCULAR DISEASE, UNSPECIFIED
--- NOTE | 2018-01-23 15:17 | PN ---
Progress Note, Physician History of Present Illness: Pt seen and examined at bedside. She denies shortness of breath. She is awake and alert. - Current Medication List Current Medications: Active Medications Acetaminophen (Tylenol -) 650 mg PO Q6H PRN PRN Reason: FEVER Last Admin: 01/22/18 22:57 Dose: 650 mg Albuterol Sulfate (Ventolin 0.083% Nebulizer Soln -) 1 amp NEB RQID [facility] Last Admin: 01/23/18 11:33 Dose: Not Given Aspirin (Ecotrin -) 81 mg PO DAILY [facility] Last Admin: 01/23/18 10:56 Dose: 81 mg Atorvastatin Calcium (Lipitor -) 80 mg PO HS [facility] Last Admin: 01/22/18 21:37 Dose: 80 mg Budesonide (Pulmicort 0.25 Mg Nebulizer -) 1 amp NEB BID [facility] Last Admin: 01/23/18 09:50 Dose: Not Given Docusate Sodium (Colace -) 100 mg PO BID [facility] Last Admin: 01/23/18 10:56 Dose: 100 mg Emollient Ointment (Aquaphor -) 1 applic TP BID PRN PRN Reason: DRY SKIN Heparin Sodium (Porcine) (Heparin -) 5,000 unit IVPUSH PRN PRN PRN Reason: Heparin Last Admin: 01/20/18 09:55 Dose: 5,000 unit Heparin Sodium (Porcine) (Heparin -) 1,000 unit IVPUSH PRN PRN PRN Reason: Heparin Heparin Sodium/Dextrose (Heparin Infusion -) 25,000 units in 500 mls @ 20 mls/ hr IVPB TITR [facility]; Protocol Last Admin: 01/23/18 08:00 Dose: 1,350 units/hr, 27 mls/hr Insulin Aspart (Novolog Vial Sliding Scale -) 1 vial SQ ACHS [facility]; Protocol Last Admin: 01/23/18 11:20 Dose: 6 units Insulin Detemir (Levemir Vial) 30 units SQ AM [facility]ICK Insulin Detemir (Levemir Vial) 12 units SQ HS [facility] Lidocaine (Lidoderm Patch -) 1 patch TP DAILY [facility] Last Admin: 01/23/18 10:56 Dose: 1 patch Lorazepam (Ativan -) 0.5 mg PO BID [facility] Last Admin: 01/23/18 10:56 Dose: 0.5 mg Meclizine HCl (Antivert -) 25 mg PO TID PRN PRN Reason: VERTIGO Miscellaneous (Lidoderm Patch Removal) 1 each MC DAILY@2200 [facility] Last Admin: 01/22/18 23:00 Dose: Not Given Nitroglycerin (Nitro-Bid 2% Paste -) 0.5 inch TD Q6HPO [facility] Last Admin: 01/23/18 11:21 Dose: Not Given Nystatin (Nystop Powder -) 1 applic TP DAILY [facility] Last Admin: 01/23/18 10:56 Dose: 1 applic Oxycodone HCl (Roxicodone -) 10 mg PO Q6H PRN PRN Reason: PAIN LEVEL 6-10 Last Admin: 01/23/18 05:20 Dose: 10 mg Polyethylene Glycol (Miralax (For Daily Use) -) 17 gm PO DAILY [facility] Last Admin: 01/23/18 10:56 Dose: Not Given Pregabalin (Lyrica -) 150 mg PO TID [facility] Last Admin: 01/23/18 14:23 Dose: 150 mg Warfarin Sodium (Coumadin -) 5 mg PO DAILY@1800 [facility] Last Admin: 01/22/18 17:15 Dose: 5 mg - Objective Vital Signs: Vital Signs Temperature 98.1 F 01/23/18 08:00 Pulse Rate 92 H 01/23/18 08:00 Respiratory Rate 18 01/23/18 08:00 Blood Pressure 102/68 01/23/18 08:00 O2 Sat by Pulse Oximetry (%) 100 01/23/18 08:00 Constitutional: Yes: Calm Eyes: Yes: Conjunctiva Clear HENT: Yes: Atraumatic Neck: Yes: Supple Cardiovascular: Yes: S1, S2 Respiratory: Yes: CTA Bilaterally Gastrointestinal: Yes: Normal Bowel Sounds, Soft Genitourinary: Yes: WNL Musculoskeletal: Yes: Other (hip pain, chronic) Edema: No Integumentary: Yes: Tattoos Neurological: Yes: Oriented Psychiatric: Yes: Oriented Labs: CBC, BMP 01/23/18 05:00 01/23/18 06:00 INR, PTT INR 1.55 (0.82-1.09) H 01/23/18 09:00 Problem List - Problems (1) NSTEMI (non-ST elevated myocardial infarction) Code(s): I21.4 - NON-ST ELEVATION (NSTEMI) MYOCARDIAL INFARCTION (2) Acute kidney injury superimposed on chronic kidney disease Code(s): N17.9 - ACUTE KIDNEY FAILURE, UNSPECIFIED; N18.9 - CHRONIC KIDNEY DISEASE, UNSPECIFIED Assessment/Plan Current Medications Generic Name Dose Route Start Last Admin Trade Name Freq PRN Reason Stop Dose Admin Acetaminophen 650 mg 01/18/18 15:23 01/22/18 22:57 Tylenol - PO 650 mg Q6H PRN Administration FEVER Albuterol Sulfate 1 amp 01/18/18 16:00 01/23/18 11:33 Ventolin 0.083% Nebulizer Soln - NEB Not Given RQID MICK Aspirin 81 mg 01/20/18 10:00 01/23/18 10:56 Ecotrin - PO 81 mg DAILY [facility] Administration Atorvastatin Calcium 80 mg 01/20/18 22:00 01/22/18 21:37 Lipitor - PO 80 mg HS [facility]ICK Administration Budesonide 1 amp 01/18/18 22:00 01/23/18 09:50 Pulmicort 0.25 Mg Nebulizer - NEB Not Given BID [facility]ICK Docusate Sodium 100 mg 01/18/18 22:00 01/23/18 10:56 Colace - PO 100 mg BID [facility]ICK Administration Emollient Ointment 1 applic 01/18/18 15:23 Aquaphor - TP BID PRN DRY SKIN Heparin Sodium (Porcine) 5,000 unit 01/18/18 23:13 01/20/18 09:55 Heparin - IVPUSH 5,000 unit PRN PRN Administration Heparin Heparin Sodium (Porcine) 1,000 unit 01/18/18 23:13 Heparin - IVPUSH PRN PRN Heparin Heparin Sodium/Dextrose 25,000 units in 500 mls @ 20 mls/hr 01/18/18 14:00 08:00 Heparin Infusion - IVPB 1,350 units/hr TITR [facility]ICK 27 mls/hr Administration Protocol 1,000 UNITS/HR Insulin Aspart 1 vial 01/18/18 23:52 01/23/18 11:20 Novolog Vial Sliding Scale - SQ 6 units ACHS [facility] Administration Protocol Insulin Detemir 30 units 01/24/18 07:00 Levemir Vial SQ AM [facility] Insulin Detemir 12 units 01/23/18 22:00 Levemir Vial SQ HS [facility] Lidocaine 1 patch 01/21/18 17:45 01/23/18 10:56 Lidoderm Patch - TP 1 patch DAILY [facility] Administration Lorazepam 0.5 mg 01/18/18 22:00 01/23/18 10:56 Ativan - PO 0.5 mg BID [facility]ICK Administration Meclizine HCl 25 mg 01/18/18 15:23 Antivert - PO TID PRN VERTIGO Miscellaneous 1 each 01/21/18 22:00 01/22/18 23:00 Lidoderm Patch Removal MC Not Given DAILY@2200 [facility] Nitroglycerin 0.5 inch 01/20/18 12:00 01/23/18 11:21 Nitro-Bid 2% Paste - TD Not Given Q6HPO [facility]ICK Nystatin 1 applic 01/19/18 10:00 01/23/18 10:56 Nystop Powder - TP 1 applic DAILY [facility] Administration Oxycodone HCl 10 mg 01/21/18 21:16 01/23/18 05:20 Roxicodone - PO 10 mg Q6H PRN Administration PAIN LEVEL 6-10 Polyethylene Glycol 17 gm 01/19/18 10:00 01/23/18 10:56 Miralax (For Daily Use) - PO Not Given DAILY [facility] Pregabalin 150 mg 01/18/18 22:00 01/23/18 14:23 Lyrica - PO 150 mg TID [facility] Administration Warfarin Sodium 5 mg 01/18/18 18:00 01/22/18 17:15 Coumadin - PO 5 mg DAILY@1800 [facility] Administration Impression 1. REBA improving 2. CKD 3. hyperkalemia 4. DM 5. protein s def 6. NSTEMI 7. CAD 8. PVD 9. hyperkalemia Plan - renal function is improving - potassium is mildly elevated, heparin can contribute to this - will start gently hydration as she may need angio - vascular follow up - renal ultrasound reviewed - repeat labs in am - will follow Dr Dugan
[2018-01-23] MEDS ORDERED: SODIUM CHLORIDE 0.45% 1,000 ML IV SCH (15:30)
[2018-01-23] MEDS: WARFARIN NA 5 MG TABLET (UD) PO SCH (17:08)
--- NOTE | 2018-01-23 18:21 | PN ---
Progress Note (short form) - Note Progress Note: cc Left Foot drop HPI 43 year old female histor of DM, HTN, HLD, CAD, Protein deficiency, Diabetic Neuropathy, CKD. She has multiple LLE revascularization procedure done in past. She trip and fell and developed left lower extremity ,specially at left ankle. She coul dnot dorsiflex or platner flex left leg. Patient has neuropathy but this deficit is new PSH Bypass, Hernia Repair ([facility]). No: AV Fistula/Graft pMH as above. Former smoker ROS,SH,FH reviewed in chart. H Neurological Examination Alert oriented x 3, speech is normal cn all intact, eomi, pupils reactive, no face asymmetry motor is normal upper extremity Left dorsiflexion and planter flexion is grade 1/5 There is loss of eversion on left leg there is sensory dysthesia on dorsum and front of leg. right knee reflex is grade 2, and left knee reflex is diminished hip flexion, hip extension, knee flexion and extension is normal bilaterally There is diminished bilateral ankle reflex, normal strength on right dorsiflexion and extension Assessment- 1. Left foot drop, seem to be due to tripping and ? Common peroneal nerve injury , There is also loss of Planter flexion indicating of tibial nerve injury, could be due to recent fall. Clinically there is no evidence of compartment syndrome . ct L spine was unchanged, and exam remain changed. Plan-- May need splint to fall, Rehab consult EMG outpatient - PT Thanking you so much Matty Johnson MD
[2018-01-23] MEDS: ATORVASTATIN CA 80 MG TABLET (FP) PO SCH (21:52)
[2018-01-23] MEDS: LIDOCAINE PATCH REMOVAL MC SCH (21:57)
[2018-01-24] MEDS: NITROGLYCERIN 2% OINTMENT - 1GM PACKET TD SCH ×3 (06:01→17:46)
[2018-01-24] MEDS: INSULIN (LEVEMIR) 100 UNITS/ML UNITS SQ SCH ×2 (06:02→21:29)
[2018-01-24] MEDS: PREGABALIN 50 MG CAPSULE PO SCH ×3 (06:02→21:27)
[2018-01-24] MEDS: INSULIN SLIDING SCALE (NOVOLOG) 1 VIAL SQ SCH ×4 (06:06→21:27)
[2018-01-24 06:31] LABS: HEMATOCRIT 25.2 % (32.4-45.2); HEMOGLOBIN 7.9 GM/dL (10.7-15.3); MCH 24.1 pg (25.7-33.7); MCHC 31.3 g/dl (32.0-36.0); MEAN CELL VOLUME 76.8 fl (80-96); MEAN PLT VOLUME 9.3 fl (7.5-11.1); PLATELET COUNT 323 K/MM3 (134-434); RBC 3.29 M/mm3 (3.60-5.2); RDW 19.3 % (11.6-15.6); WHITE BLOOD COUNT 9.5 K/mm3 (4.0-10.0)
[2018-01-24 06:44] LABS: INR 1.49 (0.82-1.09); PROTHROMBIN TIME (PATIENT) 16.8 SEC (9.7-13.0)
[2018-01-24 06:47] LABS: ACTIVATED PTT 46.1 SECONDS (26.9-34.4)
[2018-01-24 07:03] LABS: ANION GAP 5 (8-16); BLOOD UREA NITROGEN 20 mg/dL (7-18); CALCIUM 8.2 mg/dL (8.5-10.1); CHLORIDE 108 mmol/L (98-107); CO2 30 mmol/L (21-32); CREATININE 1.3 mg/dL (0.55-1.02); GLUCOSE,RANDOM 116 mg/dL (74-106); POTASSIUM 4.4 mmol/L (3.5-5.1); SODIUM 143 mmol/L (136-145)
[2018-01-24] MEDS: ALBUTEROL SO4 0.083% IH SOL 2.5 MG/3 ML VIAL.NEB. NEB SCH ×4 (08:49→20:52)
--- NOTE | 2018-01-24 09:32 | PN ---
Progress Note (short form) - Note Progress Note: Pt seen. On O2 mask. Is comfortable in bed. CT + left hip early AVN, and L foot drop Ortho Rec Ambulate, P.T. if necessary, WBAT, activities as tolerated. If she cannot tolerated ambulation then she should consider a left THR Consider an AFO for the left foot drop
[2018-01-24] MEDS: ACETAMINOPHEN 325 MG TABLET (FP) PO PRN (10:00)
[2018-01-24] MEDS: ASPIRIN COATED 81 MG TABLET.EC PO SCH (10:00)
[2018-01-24] MEDS: LIDOCAINE 5% TOPICAL PATCH TP SCH (10:00)
[2018-01-24] MEDS: oxyCODONE HCL 5 MG TABLET PO PRN ×2 (10:00→21:27)
[2018-01-24] MEDS: DOCUSATE SODIUM 100 MG CAPSULE (FP) PO SCH ×2 (10:00→21:29)
[2018-01-24] MEDS: POLYETHYLENE GLYCOL 3350 119 GM BTL PO SCH (10:01)
[2018-01-24] MEDS: LORazepam 0.5 MG TABLET PO SCH ×2 (10:01→21:27)
[2018-01-24] MEDS: NYSTATIN POWDER 100,000 UNITS/GM - 15 GM TOPICAL POWDER TP SCH (10:01)
[2018-01-24] MEDS: BUDESONIDE 0.25 MG/2ML INH SUSP VIAL NEB SCH ×2 (10:10→21:00)
--- NOTE | 2018-01-24 12:35 | PN ---
Progress Note, Physician Chief Complaint: awake alert still with left foot drop - Current Medication List Current Medications: Active Medications Acetaminophen (Tylenol -) 650 mg PO Q6H PRN PRN Reason: FEVER Last Admin: 01/24/18 10:00 Dose: 650 mg Albuterol Sulfate (Ventolin 0.083% Nebulizer Soln -) 1 amp NEB RQID [facility] Last Admin: 01/24/18 08:49 Dose: 1 amp Aspirin (Ecotrin -) 81 mg PO DAILY [facility] Last Admin: 01/24/18 10:00 Dose: 81 mg Atorvastatin Calcium (Lipitor -) 80 mg PO HS [facility] Last Admin: 01/23/18 21:52 Dose: 80 mg Budesonide (Pulmicort 0.25 Mg Nebulizer -) 1 amp NEB BID [facility] Last Admin: 01/23/18 21:43 Dose: Not Given Docusate Sodium (Colace -) 100 mg PO BID [facility] Last Admin: 01/24/18 10:00 Dose: 100 mg Emollient Ointment (Aquaphor -) 1 applic TP BID PRN PRN Reason: DRY SKIN Heparin Sodium (Porcine) (Heparin -) 5,000 unit IVPUSH PRN PRN PRN Reason: Heparin Last Admin: 01/20/18 09:55 Dose: 5,000 unit Heparin Sodium (Porcine) (Heparin -) 1,000 unit IVPUSH PRN PRN PRN Reason: Heparin Heparin Sodium/Dextrose (Heparin Infusion -) 25,000 units in 500 mls @ 20 mls/ hr IVPB TITR [facility]; Protocol Last Admin: 01/23/18 08:00 Dose: 1,350 units/hr, 27 mls/hr Sodium Chloride (1/2 Normal Saline) 1,000 mls @ 50 mls/hr IV ASDIR [facility] Stop: 01/24/18 15:17 Last Admin: 01/23/18 17:10 Dose: 50 mls/hr Insulin Aspart (Novolog Vial Sliding Scale -) 1 vial SQ ACHS [facility]; Protocol Last Admin: 01/24/18 06:06 Dose: Not Given Insulin Detemir (Levemir Vial) 30 units SQ AM [facility] Last Admin: 01/24/18 06:02 Dose: 30 units Insulin Detemir (Levemir Vial) 12 units SQ HS [facility] Last Admin: 01/23/18 22:02 Dose: 12 units Lidocaine (Lidoderm Patch -) 1 patch TP DAILY [facility] Last Admin: 01/24/18 10:00 Dose: 1 patch Lorazepam (Ativan -) 0.5 mg PO BID [facility] Last Admin: 01/24/18 10:01 Dose: 0.5 mg Meclizine HCl (Antivert -) 25 mg PO TID PRN PRN Reason: VERTIGO Miscellaneous (Lidoderm Patch Removal) 1 each MC DAILY@2200 [facility] Last Admin: 01/23/18 21:57 Dose: Not Given Nitroglycerin (Nitro-Bid 2% Paste -) 0.5 inch TD Q6HPO [facility] Last Admin: 01/24/18 06:01 Dose: 0.5 inch Nystatin (Nystop Powder -) 1 applic TP DAILY [facility] Last Admin: 01/24/18 10:01 Dose: 1 applic Oxycodone HCl (Roxicodone -) 10 mg PO Q6H PRN PRN Reason: PAIN LEVEL 6-10 Last Admin: 01/24/18 10:00 Dose: 10 mg Polyethylene Glycol (Miralax (For Daily Use) -) 17 gm PO DAILY [facility] Last Admin: 01/24/18 10:01 Dose: Not Given Pregabalin (Lyrica -) 150 mg PO TID [facility] Last Admin: 01/24/18 06:02 Dose: 150 mg Warfarin Sodium (Coumadin -) 5 mg PO DAILY@1800 [facility] Last Admin: 01/23/18 17:08 Dose: 5 mg - Objective Vital Signs: Vital Signs Temperature 98.3 F 01/24/18 09:00 Pulse Rate 97 H 01/24/18 09:00 Respiratory Rate 16 01/24/18 09:00 Blood Pressure 109/67 01/24/18 09:00 O2 Sat by Pulse Oximetry (%) 99 01/24/18 09:00 Constitutional: Yes: Mild Distress Eyes: Yes: WNL HENT: Yes: WNL Neck: Yes: WNL Cardiovascular: Yes: WNL Respiratory: Yes: WNL Gastrointestinal: Yes: WNL Genitourinary: Yes: WNL Musculoskeletal: Yes: Muscle Weakness Extremities: Yes: Other Edema: No Peripheral Pulses WNL: Yes Integumentary: Yes: WNL Wound/Incision: Yes: Clean/Dry Neurological: Yes: Pre-Existing Deficit ...Motor Strength: LLE Psychiatric: Yes: WNL Labs: CBC, BMP 01/24/18 06:10 01/24/18 06:10 INR, PTT INR 1.49 (0.82-1.09) H 01/24/18 06:10 Problem List - Problems (1) NSTEMI (non-ST elevated myocardial infarction) Code(s): I21.4 - NON-ST ELEVATION (NSTEMI) MYOCARDIAL INFARCTION (2) Peripheral neuropathy Code(s): G62.9 - POLYNEUROPATHY, UNSPECIFIED Qualifiers: Peripheral neuropathy type: mononeuropathy, other Qualified Code(s): G58.8 - Other specified mononeuropathies (3) Type 2 diabetes mellitus with other diabetic kidney complication Code(s): E11.29 - TYPE 2 DIABETES MELLITUS W OTH DIABETIC KIDNEY COMPLICATION (4) Type 2 diabetes mellitus with retinopathy without macular edema Code(s): E11.319 - TYPE 2 DIABETES W UNSP DIABETIC RTNOP W/O MACULAR EDEMA Qualifiers: Diabetic retinopathy severity: with mild nonproliferative retinopathy (5) Anemia Code(s): D64.9 - ANEMIA, UNSPECIFIED (6) Peripheral arterial disease Code(s): I73.9 - PERIPHERAL VASCULAR DISEASE, UNSPECIFIED (7) Renal insufficiency Code(s): N28.9 - DISORDER OF KIDNEY AND URETER, UNSPECIFIED Assessment/Plan vasc sx workup under way iv heparin bridge coumadin pain control pt eval
--- NOTE | 2018-01-24 14:40 | PN ---
Progress Note, Physician History of Present Illness: Pt seen and examined at bedside. She is asking to go home. She denies shortness of breath. - Current Medication List Current Medications: Active Medications Acetaminophen (Tylenol -) 650 mg PO Q6H PRN PRN Reason: FEVER Last Admin: 01/24/18 10:00 Dose: 650 mg Albuterol Sulfate (Ventolin 0.083% Nebulizer Soln -) 1 amp NEB RQID [facility] Last Admin: 01/24/18 12:50 Dose: 1 amp Aspirin (Ecotrin -) 81 mg PO DAILY [facility] Last Admin: 01/24/18 10:00 Dose: 81 mg Atorvastatin Calcium (Lipitor -) 80 mg PO HS [facility] Last Admin: 01/23/18 21:52 Dose: 80 mg Budesonide (Pulmicort 0.25 Mg Nebulizer -) 1 amp NEB BID [facility] Last Admin: 01/24/18 10:10 Dose: 1 amp Docusate Sodium (Colace -) 100 mg PO BID [facility] Last Admin: 01/24/18 10:00 Dose: 100 mg Emollient Ointment (Aquaphor -) 1 applic TP BID PRN PRN Reason: DRY SKIN Heparin Sodium (Porcine) (Heparin -) 5,000 unit IVPUSH PRN PRN PRN Reason: Heparin Last Admin: 01/20/18 09:55 Dose: 5,000 unit Heparin Sodium (Porcine) (Heparin -) 1,000 unit IVPUSH PRN PRN PRN Reason: Heparin Heparin Sodium/Dextrose (Heparin Infusion -) 25,000 units in 500 mls @ 20 mls/ hr IVPB TITR [facility]; Protocol Last Admin: 01/23/18 08:00 Dose: 1,350 units/hr, 27 mls/hr Sodium Chloride (1/2 Normal Saline) 1,000 mls @ 50 mls/hr IV ASDIR [facility] Stop: 01/24/18 15:17 Last Admin: 01/23/18 17:10 Dose: 50 mls/hr Insulin Aspart (Novolog Vial Sliding Scale -) 1 vial SQ ACHS [facility]; Protocol Last Admin: 01/24/18 06:06 Dose: Not Given Insulin Detemir (Levemir Vial) 30 units SQ AM [facility] Last Admin: 01/24/18 06:02 Dose: 30 units Insulin Detemir (Levemir Vial) 12 units SQ HS [facility] Last Admin: 01/23/18 22:02 Dose: 12 units Lidocaine (Lidoderm Patch -) 1 patch TP DAILY [facility] Last Admin: 01/24/18 10:00 Dose: 1 patch Lorazepam (Ativan -) 0.5 mg PO BID [facility] Last Admin: 01/24/18 10:01 Dose: 0.5 mg Meclizine HCl (Antivert -) 25 mg PO TID PRN PRN Reason: VERTIGO Miscellaneous (Lidoderm Patch Removal) 1 each MC DAILY@2200 [facility] Last Admin: 01/23/18 21:57 Dose: Not Given Nitroglycerin (Nitro-Bid 2% Paste -) 0.5 inch TD Q6HPO [facility] Last Admin: 01/24/18 06:01 Dose: 0.5 inch Nystatin (Nystop Powder -) 1 applic TP DAILY [facility] Last Admin: 01/24/18 10:01 Dose: 1 applic Oxycodone HCl (Roxicodone -) 10 mg PO Q6H PRN PRN Reason: PAIN LEVEL 6-10 Last Admin: 01/24/18 10:00 Dose: 10 mg Polyethylene Glycol (Miralax (For Daily Use) -) 17 gm PO DAILY [facility] Last Admin: 01/24/18 10:01 Dose: Not Given Pregabalin (Lyrica -) 150 mg PO TID [facility] Last Admin: 01/24/18 06:02 Dose: 150 mg Warfarin Sodium (Coumadin -) 5 mg PO DAILY@1800 [facility] Last Admin: 01/23/18 17:08 Dose: 5 mg - Objective Vital Signs: Vital Signs Temperature 98.3 F 01/24/18 09:00 Pulse Rate 97 H 01/24/18 09:00 Respiratory Rate 16 01/24/18 09:00 Blood Pressure 109/67 01/24/18 09:00 O2 Sat by Pulse Oximetry (%) 99 01/24/18 09:00 Constitutional: Yes: Calm Eyes: Yes: Conjunctiva Clear HENT: Yes: Atraumatic Neck: Yes: Supple Cardiovascular: Yes: S1, S2 Respiratory: Yes: CTA Bilaterally Genitourinary: Yes: WNL Musculoskeletal: Yes: Other (hip pain) Edema: No Neurological: Yes: Oriented Psychiatric: Yes: Oriented Labs: CBC, BMP 01/24/18 06:10 01/24/18 06:10 INR, PTT INR 1.49 (0.82-1.09) H 01/24/18 06:10 Problem List - Problems (1) NSTEMI (non-ST elevated myocardial infarction) Code(s): I21.4 - NON-ST ELEVATION (NSTEMI) MYOCARDIAL INFARCTION (2) Acute kidney injury superimposed on chronic kidney disease Code(s): N17.9 - ACUTE KIDNEY FAILURE, UNSPECIFIED; N18.9 - CHRONIC KIDNEY DISEASE, UNSPECIFIED Assessment/Plan Current Medications Generic Name Dose Route Start Last Admin Trade Name Freq PRN Reason Stop Dose Admin Acetaminophen 650 mg 01/18/18 15:23 01/24/18 10:00 Tylenol - PO 650 mg Q6H PRN Administration FEVER Albuterol Sulfate 1 amp 01/18/18 16:00 01/24/18 12:50 Ventolin 0.083% Nebulizer Soln - NEB 1 amp RQID [facility]ICK Administration Aspirin 81 mg 01/20/18 10:00 01/24/18 10:00 Ecotrin - PO 81 mg DAILY [facility] Administration Atorvastatin Calcium 80 mg 01/20/18 22:00 01/23/18 21:52 Lipitor - PO 80 mg HS [facility]ICK Administration Budesonide 1 amp 01/18/18 22:00 01/24/18 10:10 Pulmicort 0.25 Mg Nebulizer - NEB 1 amp BID [facility]ICK Administration Docusate Sodium 100 mg 01/18/18 22:00 01/24/18 10:00 Colace - PO 100 mg BID [facility]ICK Administration Emollient Ointment 1 applic 01/18/18 15:23 Aquaphor - TP BID PRN DRY SKIN Heparin Sodium (Porcine) 5,000 unit 01/18/18 23:13 01/20/18 09:55 Heparin - IVPUSH 5,000 unit PRN PRN Administration Heparin Heparin Sodium (Porcine) 1,000 unit 01/18/18 23:13 Heparin - IVPUSH PRN PRN Heparin Heparin Sodium/Dextrose 25,000 units in 500 mls @ 20 mls/hr 01/18/18 14:00 08:00 Heparin Infusion - IVPB 1,350 units/hr TITR MICK 27 mls/hr Administration Protocol 1,000 UNITS/HR Sodium Chloride 1,000 mls @ 50 mls/hr 01/23/18 15:30 01/23/18 17:10 1/2 Normal Saline IV 01/24/18 15:17 50 mls/hr ASDIR MICK Administration Insulin Aspart 1 vial 01/18/18 23:52 01/24/18 06:06 Novolog Vial Sliding Scale - SQ Not Given ACHS [facility] Protocol Insulin Detemir 30 units 01/24/18 07:00 01/24/18 06:02 Levemir Vial SQ 30 units AM [facility] Administration Insulin Detemir 12 units 01/23/18 22:00 01/23/18 22:02 Levemir Vial SQ 12 units HS [facility]ICK Administration Lidocaine 1 patch 01/21/18 17:45 01/24/18 10:00 Lidoderm Patch - TP 1 patch DAILY [facility] Administration Lorazepam 0.5 mg 01/18/18 22:00 01/24/18 10:01 Ativan - PO 0.5 mg BID [facility]ICK Administration Meclizine HCl 25 mg 01/18/18 15:23 Antivert - PO TID PRN VERTIGO Miscellaneous 1 each 01/21/18 22:00 01/23/18 21:57 Lidoderm Patch Removal MC Not Given DAILY@2200 [facility] Nitroglycerin 0.5 inch 01/20/18 12:00 01/24/18 06:01 Nitro-Bid 2% Paste - TD 0.5 inch Q6HPO [facility]ICK Administration Nystatin 1 applic 01/19/18 10:00 01/24/18 10:01 Nystop Powder - TP 1 applic DAILY [facility] Administration Oxycodone HCl 10 mg 01/21/18 21:16 01/24/18 10:00 Roxicodone - PO 10 mg Q6H PRN Administration PAIN LEVEL 6-10 Polyethylene Glycol 17 gm 01/19/18 10:00 01/24/18 10:01 Miralax (For Daily Use) - PO Not Given DAILY [facility] Pregabalin 150 mg 01/18/18 22:00 01/24/18 06:02 Lyrica - PO 150 mg TID [facility]ICK Administration Warfarin Sodium 5 mg 01/18/18 18:00 01/23/18 17:08 Coumadin - PO 5 mg DAILY@1800 [facility] Administration Impression 1. REBA improving 2. CKD 3. hyperkalemia 4. DM 5. protein s def 6. NSTEMI 7. CAD 8. PVD 9. hyperkalemia Plan - renal function is stabilizing - potassium is improved - repeat labs in am - vascular follow up for plan - can stop fluids if no further vascular intervention - will follow Dr Dugan
[2018-01-24] MEDS: HEPARIN INFUSION - 25,000 UNITS/500 ML INFUS.BAG IVPB SCH (15:26)
--- NOTE | 2018-01-24 17:02 | PN ---
Progress Note, Physician History of Present Illness: seen and examined today in nad - Current Medication List Current Medications: Active Medications Acetaminophen (Tylenol -) 650 mg PO Q6H PRN PRN Reason: FEVER Last Admin: 01/24/18 10:00 Dose: 650 mg Albuterol Sulfate (Ventolin 0.083% Nebulizer Soln -) 1 amp NEB RQID [facility] Last Admin: 01/24/18 16:44 Dose: 1 amp Aspirin (Ecotrin -) 81 mg PO DAILY [facility] Last Admin: 01/24/18 10:00 Dose: 81 mg Atorvastatin Calcium (Lipitor -) 80 mg PO HS [facility] Last Admin: 01/23/18 21:52 Dose: 80 mg Budesonide (Pulmicort 0.25 Mg Nebulizer -) 1 amp NEB BID [facility] Last Admin: 01/24/18 10:10 Dose: 1 amp Docusate Sodium (Colace -) 100 mg PO BID [facility] Last Admin: 01/24/18 10:00 Dose: 100 mg Emollient Ointment (Aquaphor -) 1 applic TP BID PRN PRN Reason: DRY SKIN Heparin Sodium (Porcine) (Heparin -) 5,000 unit IVPUSH PRN PRN PRN Reason: Heparin Last Admin: 01/20/18 09:55 Dose: 5,000 unit Heparin Sodium (Porcine) (Heparin -) 1,000 unit IVPUSH PRN PRN PRN Reason: Heparin Heparin Sodium/Dextrose (Heparin Infusion -) 25,000 units in 500 mls @ 20 mls/ hr IVPB TITR [facility]; Protocol Last Admin: 01/24/18 15:26 Dose: 1,450 units/hr, 29 mls/hr Insulin Aspart (Novolog Vial Sliding Scale -) 1 vial SQ ACHS [facility]; Protocol Last Admin: 01/24/18 12:35 Dose: 6 units Insulin Detemir (Levemir Vial) 30 units SQ AM [facility] Last Admin: 01/24/18 06:02 Dose: 30 units Insulin Detemir (Levemir Vial) 12 units SQ HS [facility] Last Admin: 01/23/18 22:02 Dose: 12 units Lidocaine (Lidoderm Patch -) 1 patch TP DAILY [facility] Last Admin: 01/24/18 10:00 Dose: 1 patch Lorazepam (Ativan -) 0.5 mg PO BID [facility] Last Admin: 05/24/18 10:01 Dose: 0.5 mg Meclizine HCl (Antivert -) 25 mg PO TID PRN PRN Reason: VERTIGO Miscellaneous (Lidoderm Patch Removal) 1 each MC DAILY@2200 [facility] Last Admin: 01/23/18 21:57 Dose: Not Given Nitroglycerin (Nitro-Bid 2% Paste -) 0.5 inch TD Q6HPO [facility] Last Admin: 01/24/18 15:26 Dose: 0.5 inch Nystatin (Nystop Powder -) 1 applic TP DAILY [facility] Last Admin: 01/24/18 10:01 Dose: 1 applic Oxycodone HCl (Roxicodone -) 10 mg PO Q6H PRN PRN Reason: PAIN LEVEL 6-10 Last Admin: 01/24/18 10:00 Dose: 10 mg Polyethylene Glycol (Miralax (For Daily Use) -) 17 gm PO DAILY [facility] Last Admin: 01/24/18 10:01 Dose: Not Given Pregabalin (Lyrica -) 150 mg PO TID [facility] Last Admin: 01/24/18 15:26 Dose: 150 mg Warfarin Sodium (Coumadin -) 5 mg PO DAILY@1800 [facility] Last Admin: 01/23/18 17:08 Dose: 5 mg - Objective Vital Signs: Vital Signs Temperature 98.2 F 01/24/18 14:00 Pulse Rate 94 H 01/24/18 14:00 Respiratory Rate 20 01/24/18 14:00 Blood Pressure 142/77 01/24/18 14:00 O2 Sat by Pulse Oximetry (%) 99 01/24/18 09:00 Constitutional: Yes: No Distress, Calm Eyes: Yes: Conjunctiva Clear HENT: Yes: Atraumatic Cardiovascular: Yes: Regular Rate and Rhythm, S1, S2. No: Bradycardia, Tachycardia, Pulse Irregular, Bruit, JVD, Gallop, Murmur, Rub, S3, S4, Varicosities Respiratory: Yes: Regular. No: Rales, Rhonchi, Wheezes Gastrointestinal: Yes: Normal Bowel Sounds, Soft. No: Distention, Tenderness Neurological: Yes: Alert, Oriented Psychiatric: Yes: Alert, Oriented Labs: CBC, BMP 01/24/18 06:10 01/24/18 06:10 INR, PTT INR 1.49 (0.82-1.09) H 01/24/18 06:10 - ....Imaging Chest X-ray: Report Reviewed, Image Reviewed EKG: Report Reviewed, Image Reviewed Other: Report Reviewed, Image Reviewed Assessment/Plan 43 year old woman with a history of HTN, Diabetes, hyperlipidemia, CAD s/p PDI 2014, PR 2014, CVA 2014, Protein S deficiency on coumadin, CKD, GERD, DJD, lt hip fx s/p ORIF 2016, multiple LLE revascularizations, bilat stents, admitted after a trip and fall with left leg, hip and knee pain. Denies LOC or chest pain, sob, orthopnea, pnd or edema. Echo 07/08/17: inc ef 70%, mild-mod mr, mild tr, mod phtn Nuclear stress test 12/31/14: small inferolateral infarct, no ischemia EF 63% Now noted with new anterior T wave inversions, elevated troponin and new REBA ( creat 1.1-->2.3). Problem List Assessment/Plan Troponin trended down Unlikely ACS echo showed low normal LV systolic function, mild valvular abnl on IV heparin bridge to coumadin (which she is on for Protein S deficiency) Holding off on ischemia workup at this point given renal issues and comorbidities. cont lipitor 80 mg daily given CAD, PVD and diabetes. No additional planned inpatient cardiac work up at this time Please call with any additional questions.
[2018-01-24] MEDS: WARFARIN NA 5 MG TABLET (UD) PO SCH (17:46)
--- NOTE | 2018-01-24 18:10 | PN ---
Progress Note (short form) - Note Progress Note: No new complaints. Walking. Exam unchanged Radiology unable to do tests that were ordered. I offered her a CTA but she is concerned about risk of kidney injury and would like to avoid it. I will get Duplex done as outpatient in my lab. Problem List - Problems (1) Peripheral arterial disease Code(s): I73.9 - PERIPHERAL VASCULAR DISEASE, UNSPECIFIED
--- NOTE | 2018-01-24 19:25 | CONS ---
DATE OF CONSULTATION: 01/24/2018 HISTORY OF PRESENT ILLNESS: The patient is a 43-year-old woman with past medical history of diabetes and peripheral neuropathy as well as multiple vascular procedures including ileofemoral bypass, who was admitted on January 18, about 6-7 days following a fall. Patient complained of left hip pain, numbness, and was found to have weakness in her distal left lower extremity. She underwent CT scan of the lumbar spine, which showed some mild disc bulging, no stenosis. Ultrasound on January 22 shows occlusion of the femoral-femoral bypass. CT of the lower limb showed no fracture. Patient was evaluated by Neurology and referred for electrodiagnostic evaluation. Patient's BNP was over 12,000 on admission. Troponins were elevated at 1.08. She had an elevated BUN of 22, creatinine 2.3, elevated WBC of 12.0, hemoglobin 8.6. Repeat on January 23 showed BUN 22, creatinine 1.5, albumin 2.2. Her WBC improved to 9.4, hemoglobin 7.9, platelet count 316. Patient continues to complain of left hip pain as well as severe weakness. She was evaluated by therapy and able to ambulate about 80 feet with a rolling walker contact guard. PAST MEDICAL AND SURGICAL HISTORY: CVA, peripheral neuropathy, diabetes, hypertension, COPD, gastroesophageal reflux disease, protein C deficiency, multiple vascular procedures for peripheral vascular disease. SOCIAL HISTORY: Morbidly independent, ambulatory with assistive device. REVIEW OF SYSTEMS: No lightheadedness, dizziness. No blurry vision or double vision. No nausea, vomiting, difficulty swallowing, difficulty chewing. No chest pain, shortness of breath. No fevers or chills. She has no complaints of numbness or tingling in the upper extremities, but severe numbness and tingling in both lower extremities, especially on the left more than right lower extremity weakness. She also has an abrasion around the left lateral knee and fibular head from the fall. Complains of left hip pain, back pain, and again numbness in both lower extremities, swelling in the left lower extremity. PHYSICAL EXAMINATION: General: Patient is seen both sitting as well as standing, taking a few steps. She is in no acute distress. Very flat affect. HEENT: She is normocephalic, atraumatic. Extraocular muscles appear intact. Extremities: She has fairly good strength and range in her upper extremities, but severe weakness in the left lower extremity. Almost no movement in dorsiflexion or plantarflexion on the left. She has at least 3+ on the right side and 4/5 dorsiflexion. Plantarflexion 4+/5. Good knee flexion and extension. Good hip strength on the right. The left is limited by pain. She has stocking glove deficit to the level of the knee to pinprick and absent reflexes, except for the right knee jerk which is trace. Patient has a steppage gait. Able to take a few steps and complains of left hip pain. She also has some abrasion around the left knee, which is healing, some soft tissue swelling distally in the left lower extremity. Reduced vibratory and cold temperature sense. For the results of the EMG nerve conduction studies, please refer to the report for details. OVERALL IMPRESSION: 1. 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 2. Left peroneal neuropathy distal to the fibular head with no conduction to the tibialis anterior and diffuse muscle membrane instability. 3. Left tibial neuropathy with severe denervation in the gastroc soleus. 4. Patient does have some denervation on the right side distal to the knee, but she is able to recruit some motor units and none on the left side. 5. Gait disorder. 6. Left hip pain status post fall. 7. Vascular occlusion. 8. Peripheral arterial disease. 9. Chronic obstructive pulmonary disease. 10. History of cerebrovascular accident. 11. Hypertension. 12. Anemia. 13. Kidney disease. PLAN/SUGGESTIONS: 1. Continue physical therapy. 2. Follow up with Neurology. 3. Would benefit from a left ankle orthosis, which could be made as an outpatient. 4. Consider short-term rehab in a care home facility. 5. Deep vein thrombosis prophylaxis. 6. Pain control. 7. I would consider repeat study in 3-6 months. Thank you very much for this consultation. ENEIDA STOUT M.D. ZONIA/[id number]
[2018-01-24] MEDS: ATORVASTATIN CA 80 MG TABLET (FP) PO SCH (21:27)
[2018-01-24] MEDS: LIDOCAINE PATCH REMOVAL MC SCH (21:34)
[2018-01-25] MEDS: NITROGLYCERIN 2% OINTMENT - 1GM PACKET TD SCH ×3 (00:38→11:46)
[2018-01-25] MEDS: PREGABALIN 50 MG CAPSULE PO SCH ×2 (06:10→13:08)
[2018-01-25] MEDS: oxyCODONE HCL 5 MG TABLET PO PRN ×2 (06:11→11:45)
[2018-01-25] MEDS: INSULIN (LEVEMIR) 100 UNITS/ML UNITS SQ SCH (06:11)
[2018-01-25] MEDS: INSULIN SLIDING SCALE (NOVOLOG) 1 VIAL SQ SCH ×2 (06:19→11:46)
--- NOTE | 2018-01-25 07:44 | DS ---
Physical Examination Vital Signs: Vital Signs Temperature 98.5 F 01/25/18 06:00 Pulse Rate 85 01/25/18 06:00 Respiratory Rate 18 01/25/18 06:00 Blood Pressure 115/70 01/25/18 06:00 O2 Sat by Pulse Oximetry (%) 97 01/24/18 21:00 Cardiovascular: Yes: S1, S2 Respiratory: Yes: Regular, CTA Bilaterally Gastrointestinal: Yes: Normal Bowel Sounds, Soft Labs: CBC, BMP 01/24/18 06:10 01/24/18 06:10 Discharge Summary Reason For Visit: NSTEMI Current Active Problems NSTEMI (non-ST elevated myocardial infarction) (Acute) Peripheral neuropathy (Acute) Type 2 diabetes mellitus with other diabetic kidney complication (Acute) Type 2 diabetes mellitus with retinopathy without macular edema (Acute) Hospital Course: 43 year old woman with a history of HTN, Diabetes, hyperlipidemia, CAD s/p PDI 2014, ND 2014, CVA 2014, Protein S deficiency on coumadin, CKD, GERD, DJD, lt hip fx s/p ORIF 2016, multiple LLE revascularizations, bilat stents, admitted after a trip and fall with left leg, hip and knee pain. Denies LOC or chest pain, sob, orthopnea, pnd or edema. Echo 07/08/17: inc ef 70%, mild-mod mr, mild tr, mod phtn Nuclear stress test 12/31/14: small inferolateral infarct, no ischemia EF 63% Now noted with new anterior T wave inversions, elevated troponin and new REBA ( creat 1.1-->2.3). 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 holter then sg=howed rare APCs, TTE and TAWANNA unremarkable), Other (neuropathy) Cardiovascular: Yes: CAD (cath in 11[place]12 [place] [facility] [place] LCx FLY, 80% small D1 -. med managed), HTN, Hyperlipdemia Pulmonary: Yes: Asthma, COPD Gastrointestinal: Yes: GERD ...LMP: 07/21/16 ...: No Heme/Onc: Yes: Anemia Musculoskeletal: Yes: Osteoarthritis, Other (herniated disc) Endocrine: Yes: Diabetes Mellitus (for over 20 yr s-. insulin for over 10 yrs) - Past Surgical History Past Surgical History: Yes: Bypass, Hernia Repair ([facility]). No: AV Fistula/ Graft - Smoking History Smoking history: Former smoker Cardio Problem List Assessment/Plan Troponin trended down Unlikely ACS echo showed low normal LV systolic function, mild valvular abnl on IV heparin bridge to coumadin (which she is on for Protein S deficiency) Holding off on ischemia workup at this point given renal issues and comorbidities. cont lipitor 80 mg daily given CAD, PVD and diabetes. No additional planned inpatient cardiac work up at this time Neuro 1. Left foot drop, seem to be due to tripping and ? Common peroneal nerve injury , There is also loss of Planter flexion indicating of tibial nerve injury , could be due to recent fall. Clinically there is no evidence of compartment syndrome . ct L spine was unchanged, and exam remain changed. Plan-- May need splint to fall, Rehab consult EMG outpatient - PT Vascular (1) Peripheral arterial disease Assessment/Plan: Currently exam suggests loss of inflow from ilio-femoral byapss. Unfortunately this may not be salvageable if it has been closed for too long. Await arterial doppler study to confirm decrease in FELIX. Contrast angiogram will likely be needed. Radiology unable to do tests that were ordered. I offered her a CTA but she is concerned about risk of kidney injury and would like to avoid it. I will get Duplex done as outpatient in my lab. above discussed with pt--does not want contrast study and wants to follow up with dr do as outpatient refuses snf heparin until inr therapeutic then dc home Condition: Stable - Instructions Referrals: Carmella Conley MD [Primary Care Provider] - - Home Medications Comprehensive Discharge Medication List: Ambulatory Orders Budesonide [Pulmicort 0.25 mg Nebulizer -] 1 neb PO BID 11/21/15 Albuterol 0.083% Nebulizer Carolyn [Ventolin 0.083% Nebulizer Soln -] 1 amp NEB Q6HPO amp 12/15/15 Insulin (Novolog) [Novolog -] 0 units SQ ASDIR 04/15/16 Pregabalin [Lyrica -] 150 mg PO TID 04/15/16 Cholecalciferol (Vitamin D3) [Vitamin D3] 50,000 unit PO WEEKLY 04/16/16 Meclizine HCl [Antivert -] 25 mg PO TID 08/17/16 Acetaminophen [Tylenol .Regular Strength -] 650 mg PO Q6H PRN #0 tablet Atorvastatin Ca [Lipitor] 20 mg PO HS #30 tablet 11/22/16 Docusate Sodium [Colace -] 100 mg PO BID #60 11/22/16 Iron Polysaccharides [Niferex-150 -] 150 mg PO DAILY #30 11/22/16 LORazepam [Ativan] 0.5 mg PO BID #60 tablet MDD 2 11/22/16 Meclizine HCl [Antivert -] 25 mg PO TID PRN #90 tablet 11/22/16 Mineral Oil/Pet Hy-Phl [Aquaphor -] 1 applic TP BID PRN #180 jar 11/22/16 Nystatin Powder [Nystop Powder -] 1 applic TP DAILY #1 applic 11/22/16 Polyethylene Glycol 3350 [Miralax 119 gm Btl -] 17 gm PO DAILY #180 bottle 11/22 oxyCODONE HCL [Roxicodone -] 10 mg PO Q6H PRN #120 tablet MDD 4 11/22/16 Warfarin Na [Coumadin -] 5 mg PO DAILY@1800 01/18/18 Aspirin Coated [Ecotrin -] 81 mg PO DAILY tablet.ec 01/25/18 Insulin (Levemir) [Levemir Vial] 30 units SQ AM ml 01/25/18 Lidocaine 5% Patch [Lidoderm -] 1 patch TP DAILY patch 01/25/18 Lidocaine Patch Removal [Lidoderm Patch Removal] 1 each MC DAILY@2200 each Nitroglycerin Patch [Nitro-Dur] 0.1 mg TD DAILY #30 patch.td24 01/25/18
[2018-01-25] MEDS: ALBUTEROL SO4 0.083% IH SOL 2.5 MG/3 ML VIAL.NEB. NEB SCH ×3 (08:31→15:45)
[2018-01-25] MEDS: BUDESONIDE 0.25 MG/2ML INH SUSP VIAL NEB SCH (10:30)
[2018-01-25] MEDS: ASPIRIN COATED 81 MG TABLET.EC PO SCH (11:45)
[2018-01-25] MEDS: ACETAMINOPHEN 325 MG TABLET (FP) PO PRN (11:45)
[2018-01-25] MEDS: LORazepam 0.5 MG TABLET PO SCH (11:45)
[2018-01-25] MEDS: DOCUSATE SODIUM 100 MG CAPSULE (FP) PO SCH (11:45)
[2018-01-25] MEDS: LIDOCAINE 5% TOPICAL PATCH TP SCH (11:45)
[2018-01-25] MEDS: POLYETHYLENE GLYCOL 3350 119 GM BTL PO SCH (11:46)
[2018-01-25] MEDS: NYSTATIN POWDER 100,000 UNITS/GM - 15 GM TOPICAL POWDER TP SCH (11:46)
[2018-01-25 13:13] LABS: INR 1.54 (0.82-1.09); PROTHROMBIN TIME (PATIENT) 17.4 SEC (9.7-13.0)
--- NOTE | 2018-01-25 15:02 | PN ---
Progress Note, Physician History of Present Illness: Pt seen and examined at bedside. She is very agitated. She is asking to go home. She does not want any further inpt workup. - Current Medication List Current Medications: Active Medications Acetaminophen (Tylenol -) 650 mg PO Q6H PRN PRN Reason: FEVER Last Admin: 01/25/18 11:45 Dose: 650 mg Albuterol Sulfate (Ventolin 0.083% Nebulizer Soln -) 1 amp NEB RQID [facility] Last Admin: 01/25/18 11:47 Dose: 1 amp Aspirin (Ecotrin -) 81 mg PO DAILY [facility] Last Admin: 01/25/18 11:45 Dose: 81 mg Atorvastatin Calcium (Lipitor -) 80 mg PO HS [facility] Last Admin: 01/24/18 21:27 Dose: 80 mg Budesonide (Pulmicort 0.25 Mg Nebulizer -) 1 amp NEB BID [facility] Last Admin: 01/25/18 10:30 Dose: Not Given Docusate Sodium (Colace -) 100 mg PO BID [facility] Last Admin: 01/25/18 11:45 Dose: 100 mg Emollient Ointment (Aquaphor -) 1 applic TP BID PRN PRN Reason: DRY SKIN Heparin Sodium (Porcine) (Heparin -) 5,000 unit IVPUSH PRN PRN PRN Reason: Heparin Last Admin: 01/20/18 09:55 Dose: 5,000 unit Heparin Sodium (Porcine) (Heparin -) 1,000 unit IVPUSH PRN PRN PRN Reason: Heparin Insulin Aspart (Novolog Vial Sliding Scale -) 1 vial SQ ACHS [facility]; Protocol Last Admin: 01/25/18 11:46 Dose: Not Given Insulin Detemir (Levemir Vial) 30 units SQ AM [facility] Last Admin: 01/25/18 06:11 Dose: 30 units Insulin Detemir (Levemir Vial) 12 units SQ HS [facility] Last Admin: 01/24/18 21:29 Dose: 12 units Lidocaine (Lidoderm Patch -) 1 patch TP DAILY [facility] Last Admin: 01/25/18 11:45 Dose: 1 patch Lorazepam (Ativan -) 0.5 mg PO BID [facility] Last Admin: 01/25/18 11:45 Dose: 0.5 mg Meclizine HCl (Antivert -) 25 mg PO TID PRN PRN Reason: VERTIGO Miscellaneous (Lidoderm Patch Removal) 1 each MC DAILY@2200 [facility] Last Admin: 01/24/18 21:34 Dose: Not Given Nitroglycerin (Nitro-Bid 2% Paste -) 0.5 inch TD Q6HPO [facility] Last Admin: 01/25/18 11:46 Dose: Not Given Nystatin (Nystop Powder -) 1 applic TP DAILY [facility] Last Admin: 01/25/18 11:46 Dose: Not Given Oxycodone HCl (Roxicodone -) 10 mg PO Q6H PRN PRN Reason: PAIN LEVEL 6-10 Last Admin: 01/25/18 11:45 Dose: 10 mg Polyethylene Glycol (Miralax (For Daily Use) -) 17 gm PO DAILY [facility] Last Admin: 01/25/18 11:46 Dose: Not Given Pregabalin (Lyrica -) 150 mg PO TID [facility] Last Admin: 01/25/18 13:08 Dose: 150 mg Warfarin Sodium (Coumadin -) 5 mg PO DAILY@1800 [facility] Last Admin: 01/24/18 17:46 Dose: 5 mg - Objective Vital Signs: Vital Signs Temperature 97.8 F 01/25/18 10:00 Pulse Rate 80 01/25/18 10:00 Respiratory Rate 20 01/25/18 10:00 Blood Pressure 102/74 01/25/18 10:00 O2 Sat by Pulse Oximetry (%) 97 01/25/18 09:00 Constitutional: Yes: Anxious Eyes: Yes: Conjunctiva Clear Cardiovascular: Yes: S1, S2 Respiratory: Yes: CTA Bilaterally Gastrointestinal: Yes: Soft Genitourinary: Yes: WNL Musculoskeletal: Yes: WNL Edema: No Neurological: Yes: Oriented Psychiatric: Yes: Oriented Labs: CBC, BMP 01/24/18 06:10 01/24/18 06:10 INR, PTT INR 1.54 (0.82-1.09) H 01/25/18 12:00 Problem List - Problems (1) NSTEMI (non-ST elevated myocardial infarction) Code(s): I21.4 - NON-ST ELEVATION (NSTEMI) MYOCARDIAL INFARCTION (2) Acute kidney injury superimposed on chronic kidney disease Code(s): N17.9 - ACUTE KIDNEY FAILURE, UNSPECIFIED; N18.9 - CHRONIC KIDNEY DISEASE, UNSPECIFIED Assessment/Plan Current Medications Generic Name Dose Route Start Last Admin Trade Name Freq PRN Reason Stop Dose Admin Acetaminophen 650 mg 01/18/18 15:23 01/25/18 11:45 Tylenol - PO 650 mg Q6H PRN Administration FEVER Albuterol Sulfate 1 amp 01/18/18 16:00 01/25/18 11:47 Ventolin 0.083% Nebulizer Soln - NEB 1 amp RQID [facility] Administration Aspirin 81 mg 01/20/18 10:00 01/25/18 11:45 Ecotrin - PO 81 mg DAILY [facility] Administration Atorvastatin Calcium 80 mg 01/20/18 22:00 01/24/18 21:27 Lipitor - PO 80 mg HS [facility] Administration Budesonide 1 amp 01/18/18 22:00 01/25/18 10:30 Pulmicort 0.25 Mg Nebulizer - NEB Not Given BID [facility] Docusate Sodium 100 mg 01/18/18 22:00 01/25/18 11:45 Colace - PO 100 mg BID [facility] Administration Emollient Ointment 1 applic 01/18/18 15:23 Aquaphor - TP BID PRN DRY SKIN Heparin Sodium (Porcine) 5,000 unit 01/18/18 23:13 01/20/18 09:55 Heparin - IVPUSH 5,000 unit PRN PRN Administration Heparin Heparin Sodium (Porcine) 1,000 unit 01/18/18 23:13 Heparin - IVPUSH PRN PRN Heparin Insulin Aspart 1 vial 01/18/18 23:52 01/25/18 11:46 Novolog Vial Sliding Scale - SQ Not Given ACHS [facility] Protocol Insulin Detemir 30 units 01/24/18 07:00 01/25/18 06:11 Levemir Vial SQ 30 units AM [facility] Administration Insulin Detemir 12 units 01/23/18 22:00 01/24/18 21:29 Levemir Vial SQ 12 units HS [facility] Administration Lidocaine 1 patch 01/21/18 17:45 01/25/18 11:45 Lidoderm Patch - TP 1 patch DAILY [facility] Administration Lorazepam 0.5 mg 01/18/18 22:00 01/25/18 11:45 Ativan - PO 0.5 mg BID [facility] Administration Meclizine HCl 25 mg 01/18/18 15:23 Antivert - PO TID PRN VERTIGO Miscellaneous 1 each 01/21/18 22:00 01/24/18 21:34 Lidoderm Patch Removal MC Not Given DAILY@2200 [facility] Nitroglycerin 0.5 inch 01/20/18 12:00 01/25/18 11:46 Nitro-Bid 2% Paste - TD Not Given Q6HPO [facility] Nystatin 1 applic 01/19/18 10:00 01/25/18 11:46 Nystop Powder - TP Not Given DAILY [facility] Oxycodone HCl 10 mg 01/21/18 21:16 01/25/18 11:45 Roxicodone - PO 10 mg Q6H PRN Administration PAIN LEVEL 6-10 Polyethylene Glycol 17 gm 01/19/18 10:00 01/25/18 11:46 Miralax (For Daily Use) - PO Not Given DAILY [facility] Pregabalin 150 mg 01/18/18 22:00 01/25/18 13:08 Lyrica - PO 150 mg TID [facility] Administration Warfarin Sodium 5 mg 01/18/18 18:00 01/24/18 17:46 Coumadin - PO 5 mg DAILY@1800 [facility] Administration Impression 1. REBA improving 2. CKD 3. hyperkalemia 4. DM 5. protein s def 6. NSTEMI 7. CAD 8. PVD 9. hyperkalemia Plan - no new labs - pt will follow with Dr Gallegos as outpt - will need vascular follow up - pt did not want to take risk of renal failure with ct angio - renal function is stabilizing - will follow Dr Dugan
[2018-01-25 15:15] VITALS: BP 108/65; PULSE 100; TEMP 97.5
== END 2018-01-25 16:10 | disposition left against medical advice (07) | DRG 190 ==
LOC: JER 10:43 → JERBED 13:59 → J4W 20:57
PROVIDERS: ADMIT Family Medicine; ATTEND Family Medicine
DX: I21.4 Non-ST elevation (NSTEMI) myocardial infarction (principal); J44.9 Chronic obstructive pulmonary disease, unspecified; N17.9 Acute kidney failure, unspecified; E87.5 Hyperkalemia; I25.10 Atherosclerotic heart disease of native coronary artery without angina pectoris; I73.9 Peripheral vascular disease, unspecified; D68.59 Other primary thrombophilia; E78.5 Hyperlipidemia, unspecified; I12.9 Hypertensive chronic kidney disease with stage 1 through stage 4 chronic kidney disease, or unspecified chronic kidney disease; E11.22 Type 2 diabetes mellitus with diabetic chronic kidney disease; N18.9 Chronic kidney disease, unspecified; K21.9 Gastro-esophageal reflux disease without esophagitis; E11.29 Type 2 diabetes mellitus with other diabetic kidney complication; E11.319 Type 2 diabetes mellitus with unspecified diabetic retinopathy without macular edema; M21.372 Foot drop, left foot; Z86.73 Personal history of transient ischemic attack (TIA), and cerebral infarction without residual deficits; J45.909 Unspecified asthma, uncomplicated; G58.8 Other specified mononeuropathies
CPT/HCPCS: 36415; 71045-TC-FY; 72131-TC; 73523-TC-FY; 73562-TC-LT-FY; 73630-TC-LT; 73700-TC-RT; 76775-TC; 80048; 80053; 80061; 81003; 81015; 82436; 82550; 82553; 82570; 82962; 83036; 83721; 83880; 84133; 84300; 84484; 84703; 85025; 85027; 85610; 85730; 86850; 86900; 86901; 93005; 93010; 93306-TC; 93926-TC; 93970-TC; 94640; 95860-TC; 97116-GP; 97161-GP; 99285-25; J1644

== ENCOUNTER → 2018-02-22 | Emergency (ER) | payer OTHER ==
[~2018-02-22] MED LIST: HEPARIN - 25,000 UNIT in SODIUM CHLORIDE 495 ML IV SCH; HEPARIN INFUSION - 25,000 UNITS/500 ML INFUS.BAG IVPB ONE; HEPARIN NA (PORCINE) 5,000 UNITS/ML 1ML VIAL IVPUSH PRN; HEPARIN NA (PORCINE) 5,000 UNITS/ML 1ML VIAL ONE; HYDROmorphone HCL 2 MG TABLET ONE; SODIUM BICARBONATE 8.4% - 50 ML ONE; SODIUM BICARBONATE 8.4% 50 MEQ/50 ML DISP.SYRIN IVPUSH ONE; SODIUM CHLORIDE 1,000 ML IV STA; morphine CARPU-JECT 4 MG/1 ML DISP.SYRIN IVPUSH ONE; morphine SULFATE 4 MG/ML VIAL ONE
--- NOTE | 2018-02-22 10:43 | PDOC ---
History of Present Illness - General Stated Complaint: LEG PAIN Time Seen by Provider: 02/22/18 10:42 History Source: Patient, EMS Exam Limitations: No Limitations - History of Present Illness Initial Comments: This is a 43 YOF with h/o severe peripheral vascular disease s/p multiple BLE revascularizations and stents (follows with Dr. Neil), CAD s/p PDI 2014, Protein S deficiency on coumadin, DM, HLD, HTN, NE 2014, CVA 2014, CKD, COPD, and other diagnoses who was BIBA for 3 days of cold, dusky, painful left foot which seems to be spreading up the LLE and is associated with worsening ulcers to that foot. Past History - Past Medical History Allergies/Adverse Reactions: Allergies Allergy/AdvReac Type Severity Reaction Status Date / Time No Known Drug Allergies Allergy Verified 02/22/18 10:53 Home Medications: Ambulatory Orders Budesonide [Pulmicort 0.25 mg Nebulizer -] 1 neb PO BID 11/21/15 Albuterol 0.083% Nebulizer Carolyn [Ventolin 0.083% Nebulizer Soln -] 1 amp NEB Q6HPO amp 12/15/15 Insulin (Novolog) [Novolog -] 0 units SQ ASDIR 04/15/16 Pregabalin [Lyrica -] 150 mg PO TID 04/15/16 Cholecalciferol (Vitamin D3) [Vitamin D3] 50,000 unit PO WEEKLY 04/16/16 Meclizine HCl [Antivert -] 25 mg PO TID 08/17/16 Acetaminophen [Tylenol .Regular Strength -] 650 mg PO Q6H PRN #0 tablet Atorvastatin Ca [Lipitor] 20 mg PO HS #30 tablet 11/22/16 Docusate Sodium [Colace -] 100 mg PO BID #60 11/22/16 Iron Polysaccharides [Niferex-150 -] 150 mg PO DAILY #30 11/22/16 LORazepam [Ativan] 0.5 mg PO BID #60 tablet MDD 2 11/22/16 Meclizine HCl [Antivert -] 25 mg PO TID PRN #90 tablet 11/22/16 Mineral Oil/Pet Hy-Phl [Aquaphor -] 1 applic TP BID PRN #180 jar 11/22/16 Nystatin Powder [Nystop Powder -] 1 applic TP DAILY #1 applic 11/22/16 Polyethylene Glycol 3350 [Miralax 119 gm Btl -] 17 gm PO DAILY #180 bottle 11/22 oxyCODONE HCL [Roxicodone -] 10 mg PO Q6H PRN #120 tablet MDD 4 11/22/16 Warfarin Na [Coumadin -] 5 mg PO DAILY@1800 01/18/18 Aspirin Coated [Ecotrin -] 81 mg PO DAILY tablet.ec 01/25/18 Insulin (Levemir) [Levemir Vial] 30 units SQ AM ml 01/25/18 Lidocaine 5% Patch [Lidoderm -] 1 patch TP DAILY patch 01/25/18 Lidocaine Patch Removal [Lidoderm Patch Removal] 1 each MC DAILY@2200 each Nitroglycerin Patch [Nitro-Dur] 0.1 mg TD DAILY #30 patch.td24 01/25/18 Anemia: No Asthma: Yes Cancer: No Cardiac Disorders: Yes (mild heart attack, 1 stent,CAD S/P PDI 2014) CVA: Yes (01/2015) COPD: No CHF: No Dementia: No Diabetes: Yes GI Disorders: Yes (perforated bowel,divertic,GERD) Disorders: Yes (Chronic kidney disease,not on dialysis) HTN: Yes Hypercholesterolemia: Yes Liver Disease: No Psychiatric Problems: Yes (anxiety) Seizures: No Thyroid Disease: No - Surgical History Abdominal Surgery: Yes (perforated bowel,hernia repair) Appendectomy: No Cardiac Surgery: Yes (stent ,bypass) Cholecystectomy: Yes Lung Surgery: No Neurologic Surgery: No Orthopedic Surgery: No (L HIP ORIF 2016) - Family Disease History Family Disease History: Diabetes: Father, Mother, Heart Disease: Father - Reproductive History Tubal Ligation: Yes (2003) - Immunization History Immunization Up to Date: Yes - Suicide/Smoking/Psychosocial Hx Smoking Status: No Smoking History: Former smoker Have you smoked in the past 12 months: No Number of Cigarettes Smoked Daily: 5 If you are a former smoker, when did you quit?: 10 ya 'Breaking Loose' booklet given: 07/14/17 Hx Alcohol Use: No Drug/Substance Use Hx: No Substance Use Type: None Hx Substance Use Treatment: No Review of Systems - Review of Systems Able to Perform ROS?: Yes Constitutional: No: Chills, Fever, Unexplained wgt Loss HEENTM: No: Nose Congestion, Throat Pain Respiratory: No: Cough, Shortness of Breath Cardiac (ROS): No: Chest Pain, Palpitations ABD/GI: No: Constipated, Diarrhea, Nausea, Vomiting : No: Burning, Dysuria Musculoskeletal: No: Back Pain, Neck Pain Integumentary: No: Bruising, Rash Neurological: Yes: Numbness, Tingling, Weakness (LLE). No: Headache, Dizziness Endocrine: No: Unexplained Weight Gain, Unexplained Weight Loss *Physical Exam - Physical Exam General Appearance: Yes: Moderate Distress, Other (frustrated-appearing adult female who appears older than stated age, a bit ) HEENT: positive: EOMI, ANETTE, Normal Voice, Hearing Grossly Normal. negative: Scleral Icterus (R), Scleral Icterus (L), Nasal Congestion Neck: positive: Trachea midline, Supple. negative: Tender, Rigid Respiratory/Chest: positive: Lungs Clear, Normal Breath Sounds. negative: Respiratory Distress, Crackles, Rhonchi, Stridor, Wheezing Cardiovascular: positive: Regular Rhythm, Regular Rate. negative: Murmur Gastrointestinal/Abdominal: positive: Normal Bowel Sounds, Soft, Other ( multiple old scars from prior laparoscopies/laparotomies). negative: Tender, Organomegaly, Pulsatile Mass, Guarding Musculoskeletal: positive: Normal Inspection. negative: Decreased Range of Motion, Vertebral Tenderness Extremity: positive: Normal Capillary Refill, Normal Inspection, Normal Range of Motion. negative: Tender, Cyanosis Integumentary: positive: Normal Color, Dry, Warm. negative: Erythema, Rash, Bruising Neurologic: positive: adolescent counselor II-XII NML intact, Fully Oriented, Alert, Normal Mood/ Affect, Normal Response, Motor Strength 5/5 ED Treatment Course - LABORATORY CBC & Chemistry Diagram: 02/22/18 11:57 02/22/18 11:57 Medical Decision Making - Medical Decision Making Patient p/w LLE coldness, increased pain, worsening ulcerations x3 days. Initial Vital Signs Temp Pulse Resp BP Pulse Ox 98 F 119 H 20 106/55 98 02/22/18 10:35 02/22/18 10:35 02/22/18 10:35 02/22/18 10:35 02/22/18 10:35 Exam: DDX IBNLT: arterial occlusion, PVD, cellulitis, osteomyelitis, necrotizing soft tissue infection, gangrene, sepsis, DVT, superficial venous thrombosis, etc. W/U ordered: CBCD CMP Mg Phos Lactate BCx Coags T&S EKG CXR CT Angio Leg TX ordered: IVF, Morphine EKG: CXR: Labs: Patient is anemic lower than baseline and ordered is pRBCx2. Spoke with Dr. Neil; he will speak with [facility] vascular at [place] and discuss possible transfer. In the meantime he would like heparin bolus+drip. Dr. Saez spoke with Dr. Dugan as patient seems to be in renal failure 2/[address] Dugan recommends IVF and one amp bicarb, which are ordered. Dr. Torres to look into the case and weigh in on admission versus xfer. Repeat VS: Reassessment: The Pt is unsafe for discharge at this time. They require further hospital observation, workup, and treatment. Microblog sent to [facility] for admission. Spoke with Ra, in agreement Pt to be admitted to Decision to Admit order placed to covering attending *DC/Admit/Observation/Transfer - Referrals Referrals: Carmella Conley MD [Primary Care Provider] - - Patient Instructions - Post Discharge Activity
--- NOTE | 2018-02-22 10:54 | PDOC ---
Attending Attestation - Medical Decision Making Case discussed with Dr. Torres at 14:12. <Kayleigh Braxton - Last Filed: 02/22/18 14:12> - Resident Resident Name: Frias,Mary - ED Attending Attestation I have performed the following: I have examined & evaluated the patient, The case was reviewed & discussed with the resident, I agree w/resident's findings & plan, Exceptions are as noted - HPI HPI: 02/22/18 12:54 The patient is a 43 year old female brought in by EMS with a significant past medical history of Protein S deficiency, peripheral vascular disease s/p multiple BLE revascularizations and stents (with Dr. Neil), CAD, NH, CVA, HTN, HLD, COPD, and CKD, who presents to the emergency department for evaluation of left foot pain. The patient reports a 3 day history of severe left foot pain. The patient describes the pain as unbearable and notes that her foot is significantly cold. As per the patients daughter, the patient has worsening ulcers of the foot. Of note, the patient states Dr. Neil was unsuccessful in a recent attempt to revascularize the lower left extremity which was found to be occluded. Allergies: NKDA Social History: Former smoker. No reported alcohol or drug use. PCP: Dr. Conley ([phone]) - Physicial Exam PE: 02/22/18 12:54 GENERAL: Awake, alert, and fully oriented, appears uncomfortable NECK: Normal ROM, supple. LUNGS: Breath sounds equal, clear to auscultation bilaterally. No wheezes, and no crackles HEART: tachy but regular to 110, normal S1 and S2, no murmurs, rubs or gallops ABDOMEN: Soft, nontender. No guarding, no rebound. No masses EXTREMITIES: (+)LLE very dusky from proximal calf down, no palpable pulse. Cold compared to right foot. NEUROLOGICAL: Normal speech, cranial nerves intact, negative pronator drift, 5/ 5 strength in b/l UE and RLE. 3/5 strength proximal LLE, 0/5 strength below the knee with no sensation to light touch, normal sensation to light touch in remaining extremities, normal cerebellar exam. SKIN: As noted in extremity exam, otherwise no rashes or lesions noted. - Critical Care Time Total Critical Care Time: 120 Critical Care Statement: The care of this patient involved high complexity decision making to prevent further life threatening deterioration of the patient 's condition and/or to evaluate & treat vital organ system(s) failure or risk of failure. - Medical Decision Making 02/22/18 10:50 43yo F with MMP including protein S deficiency on coumadin, recent unsuccessful bypass by Dr. Dooley presents with increasingly painful, swollen LLE over the last 3 days. Vitals in field remarkable for hypotension to 80s systolic, which recovered to 100s systolic with fluids en route. Exam with cold, dusky, pulseless foot highly concerning for ischemic limb. Call to Dr. Dooley made immediately, awaiting call back. Pt has had symptoms for 3 days and has no motor or neuro function to LLE below the knee, so highly concerning for irreversible tissue damage. In meantime, will check labs including coags and start heparin. 02/22/18 11:[address] Claudio, he would like pt transferred to [facility] and is trying to arrange for transfer to Dr. Montero ([facility] surgeon brand ambassador promotional model ). He agrees with heparin gtt with bolus. In the mean time, hgb 7.2 which is a bit lower than baseline. Will transfuse. REmaining labs pending 02/22/18 12:46 Pt found to be acidotic to 7.14, low bicarb, with creatinine 6.3. Lactic wnl. Medical Sonographer usually in mid 1's. CPK elevated to 6000s, pt likely in rhabdo which is causing renal failure due to 3 days of ischemic limb. Nephrology has been consulted, Dr. Dugan to see pt. NS and amp if bicarb ordered. Dr. Claudio still unable to get through to vascular surgeon at [facility]. 02/22/18 13:41 Dr. Claudio still attempting to arrange transfer, will be sending Dr. Torres down to evaluate pt in mean time Pt is HDS 02/22/18 14:[address] Torres who also recommends transfer to [facility], but highly concerned for irreversible tissue damage as pt has had symptoms for 3 days and has no motor/neuro function at this time. 02/22/18 15:31 Still no call back from Dr. Montero, will call transfer center and attempt ED to ED transfer at this time 02/22/18 15:[address] Montero, who accepts pt for transfer. She requests that we make her NPO. This will be an ED to ED transfer, transfer center attempted to get ED attending on the line for sign out unsuccessfully. Transfer center will call us back. Transport will be arranged by [facility]. Pt informed of transfer, and has signed consent for transfer. Daughter present ( [place] [phone]) and also consents for transfer. 02/22/18 16:14 Case discussed with ED attending Dr. Jerry Fan at [facility], accepts for ED to ED transfer. 02/22/18 17:39 Pt completed 1 unit prbc. Transport here for transfer. Daughter has been notified. <Mari Saez - Last Filed: 02/22/18 18:27> Discharge Disposition <Kayleigh Braxton - Last Filed: 02/22/18 14:12> - Discharge Dispostion Last Admission D/C Date: 01/25/18 - Transfer to Acute Care Facility Receiving Facility: [facility] <Mari Saez - Last Filed: 02/22/18 18:27> - Diagnosis Critical lower limb ischemia - Discharge Dispostion Disposition: TRANSFER ACUTE CARE/OTHER HOSP Condition at time of disposition: Critical - Patient Instructions - Post Discharge Activity Heart Score/ECG Review #1 02/22/18 12:58 Twelve-lead EKG was performed and reviewed by me. Sinus tachycardia, rate 109. Normal axis and intervals. No ST elevations or T-wave inversions. <Mari Saez - Last Filed: 02/22/18 18:27> Attestations - Attestations Documentation prepared by Kayleigh Braxton, acting as medical doctor for Mari Saez MD. <Kayleigh Braxton - Last Filed: 02/22/18 14:12>
[2018-02-22 11:01] VITALS: BMI 28.3
[2018-02-22 12:19] LABS: BASO % 0.3 % (0-2.0); EOS % 0.7 % (0-4.5); HEMATOCRIT 22.9 % (32.4-45.2); HEMOGLOBIN 7.2 GM/dL (10.7-15.3); LYMPH % 7.6 % (8-40); MCH 22.8 pg (25.7-33.7); MCHC 31.2 g/dl (32.0-36.0); MEAN CELL VOLUME 72.9 fl (80-96); MONO % 8.3 % (3.8-10.2); NEUT % 83.1 % (42.8-82.8); PLATELET COUNT 196 K/MM3 (134-434); RBC 3.14 M/mm3 (3.60-5.2); RDW 20.4 % (11.6-15.6); WHITE BLOOD COUNT 10.4 K/mm3 (4.0-10.0)
[2018-02-22 12:26] LABS: VENOUS PH 7.14 (7.32-7.42)
[2018-02-22 12:27] LABS: VENOUS PC02 41.1 mmHg (38-52); VENOUS PO2 45.8 mmHg (28-48)
[2018-02-22 12:57] LABS: ALBUMIN 2.3 g/dl (3.4-5.0); ANION GAP 16 (8-16); BLOOD UREA NITROGEN 97 mg/dL (7-18); CALCIUM 7.4 mg/dL (8.5-10.1); CHLORIDE 102 mmol/L (98-107); CO2 17 mmol/L (21-32); CREATININE 6.2 mg/dL (0.55-1.02); GLUCOSE,RANDOM 218 mg/dL (74-106); POTASSIUM 5.1 mmol/L (3.5-5.1); SGOT/AST 118 U/L (15-37); SGPT/ALT 44 U/L (12-78); SODIUM 135 mmol/L (136-145)
[2018-02-22 13:10] LABS: ALK PHOS 253 U/L (45-117); BILIRUBIN,TOTAL 0.4 mg/dL (0.2-1.0); TOT PROT 7.2 g/dl (6.4-8.2)
[2018-02-22 14:14] LABS: URINE APPEARANCE SLCLOUDY; URINE BILIRUBIN NEGATIVE (<2.0 mg/dL); URINE COLOR AMBER; URINE GLUCOSE (UA) NEGATIVE (NEGATIVE); URINE KETONE NEGATIVE (NEGATIVE); URINE LEUK ESTERASE NEGATIVE (NEGATIVE); URINE NITRITE NEGATIVE (NEGATIVE); URINE PROTEIN NEGATIVE (NEGATIVE)
[2018-02-22 14:22] LABS: EPI CELLS RARE /HPF (FEW); URINE BACTERIA FEW /hpf (NONE SEEN); URINE HYALINE CAST 3 /lpf; URINE MUCUS RARE
--- NOTE | 2018-02-22 15:08 | PN ---
Progress Note (short form) - Note Progress Note: Vascular Surgery Asked by Dr. Neil to see pt on his behalf in the ER. 43 year old pt with Left lower extremity ischemia for over three days. She has had a aorta to iliac vein bypass prior but is not longer patent. Daughter found discoloration of pt's limb today and brought her to the ER. On exam Left leg is mottled below the knee. Leg is cold. No pulses. Pt has no motor or sensory present. The ER at [place] has initiated a transfer to [facility]. At this point -- the left leg has no motor or sensory function. Due to the leg being cold for over three days with mottling, pt would benefit from a above knee amputation. I explained that to the patient and family at bedside. Michael Torres DO
--- NOTE | 2018-02-22 16:17 | CONSULT ---
Consult Consult Specialty:: Nephrology Reason for Consultation:: REBA - History of Present Illness Chief Complaint: cold left leg History of Present Illness: Pt is a 43 year old female with pmhx of CKD, protein S defiency, PVD, CADm CVA, HTN, HLD, COPD and multiple vascular procedures on lower extremities who was brought in by the daughter for discoloration and pain in her left lower extremity. As per the patients daughter, pt has been sleeping in bed for the last 5 days, since Sunday. Pt has not been eating and barely drank anything. They notices that her left foot was cold and discolored 3 days ago. She was brought in to the ER today. I was called to evaluate her for REBA and acidosis. Pt denies shortness of breath. She denies fevers or chills. She follows with Dr. Neil. Pt denies nsais use. Pt has not been making much urine at home. A bhandari was placed and she put out about 1 liter of urine in the ER. 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 holter then sg=howed rare APCs, TTE and TAWANNA unremarkable), Other (neuropathy) Cardio/Vascular: Yes: CAD (cath in 11/12 at [facility] [place]: LCx FLY, 80% small D1 -. med managed), HTN, Hyperlipdemia Pulmonary: Yes: Asthma, COPD Gastrointestinal: Yes: GERD Renal/: Yes: Renal Inusuff ...LMP: 07/21/16 Musculoskeletal: Yes: Osteoarthritis, Other (herniated disc) Endocrine: Yes: Diabetes Mellitus (for over 20 yr s-. insulin for over 10 yrs) - Past Surgical History Past Surgical History: Yes: Bypass, Hernia Repair ([facility]). No: AV Fistula/ Graft - Alcohol/Substance Use Hx Alcohol Use: No History of Substance Use: reports: None - Smoking History Smoking history: Former smoker Have you smoked in the past 12 months: No Aproximately how many cigarettes per day: 5 If you are a former smoker, when did you quit?: 10 ya - Social History Usual Living Arrangement: With Spouse History of Recent Travel: No Home Medications - Allergies Allergies/Adverse Reactions: Allergies Allergy/AdvReac Type Severity Reaction Status Date / Time No Known Drug Allergies Allergy Verified 02/22/18 10:53 - Home Medications Home Medications: Ambulatory Orders Budesonide [Pulmicort 0.25 mg Nebulizer -] 1 neb PO BID 11/21/15 Albuterol 0.083% Nebulizer Carolyn [Ventolin 0.083% Nebulizer Soln -] 1 amp NEB Q6HPO amp 12/15/15 Insulin (Novolog) [Novolog -] 0 units SQ ASDIR 04/15/16 Pregabalin [Lyrica -] 150 mg PO TID 04/15/16 Cholecalciferol (Vitamin D3) [Vitamin D3] 50,000 unit PO WEEKLY 04/16/16 Meclizine HCl [Antivert -] 25 mg PO TID 08/17/16 Acetaminophen [Tylenol .Regular Strength -] 650 mg PO Q6H PRN #0 tablet Atorvastatin Ca [Lipitor] 20 mg PO HS #30 tablet 11/22/16 Docusate Sodium [Colace -] 100 mg PO BID #60 11/22/16 Iron Polysaccharides [Niferex-150 -] 150 mg PO DAILY #30 11/22/16 LORazepam [Ativan] 0.5 mg PO BID #60 tablet MDD 2 11/22/16 Meclizine HCl [Antivert -] 25 mg PO TID PRN #90 tablet 11/22/16 Mineral Oil/Pet Hy-Phl [Aquaphor -] 1 applic TP BID PRN #180 jar 11/22/16 Nystatin Powder [Nystop Powder -] 1 applic TP DAILY #1 applic 11/22/16 Polyethylene Glycol 3350 [Miralax 119 gm Btl -] 17 gm PO DAILY #180 bottle 11/22 oxyCODONE HCL [Roxicodone -] 10 mg PO Q6H PRN #120 tablet MDD 4 11/22/16 Warfarin Na [Coumadin -] 5 mg PO DAILY@1800 01/18/18 Aspirin Coated [Ecotrin -] 81 mg PO DAILY tablet.ec 01/25/18 Insulin (Levemir) [Levemir Vial] 30 units SQ AM ml 01/25/18 Lidocaine 5% Patch [Lidoderm -] 1 patch TP DAILY patch 01/25/18 Lidocaine Patch Removal [Lidoderm Patch Removal] 1 each MC DAILY@2200 each Nitroglycerin Patch [Nitro-Dur] 0.1 mg TD DAILY #30 patch.td24 01/25/18 Family Disease History - Family Disease History Family Disease History: Diabetes: Mother ( in her late 50s ), Sister ( in her 40s of substance abuse), Other: Father (had CAV --. in his 70s) Review of Systems - Review of Systems Constitutional: reports: Malaise. denies: Chills, Fever Eyes: reports: No Symptoms HENT: reports: No Symptoms Neck: reports: No Symptoms Cardiovascular: reports: No Symptoms Respiratory: reports: No Symptoms Gastrointestinal: reports: No Symptoms Genitourinary: reports: No Symptoms Musculoskeletal: reports: Other (left leg pain) Integumentary: reports: Erythema Neurological: reports: Confusion Endocrine: reports: No Symptoms Psychiatric: reports: No Symptoms Physical Exam Vital Signs: Vital Signs Temperature 98 F 02/22/18 10:35 Pulse Rate 119 H 02/22/18 10:35 Respiratory Rate 20 02/22/18 10:35 Blood Pressure 106/55 02/22/18 10:35 O2 Sat by Pulse Oximetry (%) 98 02/22/18 10:35 Constitutional: Yes: Calm Eyes: Yes: Conjunctiva Clear HENT: Yes: Atraumatic Neck: Yes: Supple Cardiovascular: Yes: S1, S2 Respiratory: Yes: CTA Bilaterally Gastrointestinal: Yes: Soft Renal/: Yes: Bhandari Present Extremities: Yes: Other (cold left leg from below the knee) Edema: Yes Edema: LLE: Trace Integumentary: Yes: Other (discoloration of left leg) Neurological: Yes: Oriented Psychiatric: Yes: Oriented Labs: CBC, BMP 02/22/18 11:57 02/22/18 11:57 Laboratory Tests 02/22/18 02/22/18 11:57 12:05 Lactic Acid 1.2 Creatine Kinase 6414 H Imaging - Results Chest X-ray: Report Reviewed Problem List - Problems (1) Acute kidney injury superimposed on chronic kidney disease Code(s): N17.9 - ACUTE KIDNEY FAILURE, UNSPECIFIED; N18.9 - CHRONIC KIDNEY DISEASE, UNSPECIFIED (2) Arterial occlusion Code(s): I74.9 - EMBOLISM AND THROMBOSIS OF UNSPECIFIED ARTERY (3) CAD (coronary artery disease) Code(s): I25.10 - ATHSCL HEART DISEASE OF [place] CORONARY ARTERY W/O ANG PCTRS Qualifiers: Coronary Disease-Associated Artery/Lesion type: coronary artery bypass graft Associated angina: without angina pectoris (4) COPD (chronic obstructive pulmonary disease) Code(s): J44.9 - CHRONIC OBSTRUCTIVE PULMONARY DISEASE, UNSPECIFIED Qualifiers: Emphysema type: unspecified (5) Chronic kidney disease (CKD) Code(s): N18.9 - CHRONIC KIDNEY DISEASE, UNSPECIFIED Assessment/Plan Current Medications Generic Name Dose Route Start Last Admin Trade Name Freq PRN Reason Stop Dose Admin Heparin Sodium (Porcine) 1,000 unit 02/22/18 11:42 Heparin - IVPUSH PRN PRN Heparin Heparin Sodium (Porcine) 5,000 unit 02/22/18 11:42 02/22/18 12:15 Heparin - IVPUSH 5,000 unit PRN PRN Administration Heparin Heparin Sodium (Porcine) 25, 500 mls @ 20 mls/hr 02/22/18 11:45 02/22/18 13: 08 000 unit/ Sodium Chloride IV 1,000 unit/hr TITR MICK 20 mls/hr Administration Protocol 1,000 UNIT/HR Impression 1. REBA 2. CKD 3. cold limb 4. DM 5. protein s def 6. urinary retention 7. CAD 8. PVD 9. acidosis 10. rhabdo Plan - pt will need a stat vascular surgery consult - cold left lower ext can explain the rhabdo - cont with fluids - repeat bmp - pt may also have had an obstructive component - keep bhandari in place and monitor ouput - check renal ultrasound - pt may be transferred to [place] - check urine lytes and wellness program coordinator - monitor lactic acid levels - will follow pt - discussed with ER at length Dr Dguan
[2018-02-23 19:27] VITALS: TEMP 98.9
--- NOTE | 2018-02-25 22:03 | EKG ---
Test Reason : Blood Pressure : / mmHG Vent. Rate : 109 BPM Atrial Rate : 109 BPM P-R Int : 158 ms QRS Dur : 090 ms QT Int : 342 ms P-R-T Axes : 031 013 040 degrees QTc Int : 460 ms SINUS TACHYCARDIA OTHERWISE NORMAL ECG WHEN COMPARED WITH ECG OF 19-JAN-2018 09:50, PREMATURE SUPRAVENTRICULAR COMPLEXES ARE NO LONGER PRESENT T WAVE VARIATION Confirmed by DINESH HENRY MD ([id number]) on 02/25/2018 10:03:18 PM Referred By: Confirmed By:DINESH HENRY MD
[2018-02-28 08:46] VITALS: BP 112/65; PULSE 100
== END | disposition short-term general hospital (02) ==
LOC: JER 10:35
PROC: 3E033GC Introduction of Other Therapeutic Substance into Peripheral Vein, Percutaneous Approach (ICD-10-PCS; principal; 2018-02-22)
PROC: 0T9B70Z Drainage of Bladder with Drainage Device, Via Natural or Artificial Opening (ICD-10-PCS; 2018-02-22)
DX: I74.3 Embolism and thrombosis of arteries of the lower extremities (principal); D64.9 Anemia, unspecified; M62.82 Rhabdomyolysis; E87.2 Acidosis; I25.2 Old myocardial infarction; I25.10 Atherosclerotic heart disease of native coronary artery without angina pectoris; I13.10 Hypertensive heart and chronic kidney disease without heart failure, with stage 1 through stage 4 chronic kidney disease, or unspecified chronic kidney disease; N18.9 Chronic kidney disease, unspecified; Z95.1 Presence of aortocoronary bypass graft; Z95.5 Presence of coronary angioplasty implant and graft; Z87.891 Personal history of nicotine dependence; Z79.01 Long term (current) use of anticoagulants; J44.9 Chronic obstructive pulmonary disease, unspecified; Z87.19 Personal history of other diseases of the digestive system; Z86.73 Personal history of transient ischemic attack (TIA), and cerebral infarction without residual deficits; F41.9 Anxiety disorder, unspecified; E11.9 Type 2 diabetes mellitus without complications; Z79.4 Long term (current) use of insulin; I99.8 Other disorder of circulatory system; L97.528 Non-pressure chronic ulcer of other part of left foot with other specified severity
CPT/HCPCS: 36415; 36430; 71045-TC-FY; 80053; 81003; 81015; 82550; 82553; 82803; 83605; 84484; 85025; 85730; 86850; 86900; 86901; 86922; 87040; 87086; 93005; 93010; 99284-25; J1644; J7030; P9038; P9058

== ENCOUNTER 2019-01-10 17:58 | Inpatient (IN) | payer OTHER ==
[2019-01-10] MEDS ORDERED: ACETAMINOPHEN 500 MG TABLET (FP) PO ONE (18:53)
--- NOTE | 2019-01-10 18:59 | PDOC ---
Documentation entered by Aaliyah Hutchinson SCRIBE, acting as scribe for Lainey Amezcua MD. Lainey Amezcua MD: This documentation has been prepared by the scribe, Aaliyah Hutchinson SCRIBE, under my direction and personally reviewed by me in its entirety. I confirm that the documentation accurately reflects all work, treatment, procedures, and medical decision making performed by me. 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 Pain is constant, nonradiating. She has dec sensation to the entire R foot. - Physicial Exam PE: GENERAL: Awake, alert, and fully oriented, in no acute distress HEAD: No signs of trauma EYES: PERRLA, EOMI, sclera anicteric, conjunctiva clear ENT: Auricles normal inspection, hearing grossly normal, nares patent, oropharynx clear without exudates. Moist mucosa NECK: Normal ROM, supple, no lymphadenopathy, JVD, or masses LUNGS: Breath sounds equal, clear to auscultation bilaterally. No wheezes, and no crackles HEART: Regular rate and rhythm, normal S1 and S2, no murmurs, rubs or gallops ABDOMEN: Soft, nontender, normoactive bowel sounds. No guarding, no rebound. No masses EXTREMITIES: RLE with erythema to the R foot, hyperesthesia to foot up to the level of the ankle. +Tenderness to the calf. Foot is slightly cooler than the rest of the extremity. LLE with AKA, well-healed. Remainder of extremities with normal range of motion, no edema. No clubbing or cyanosis. No cords, erythema, or tenderness NEUROLOGICAL: Cranial nerves II through XII grossly intact. Normal speech, normal gait. Motor and sensation intact SKIN: Warm, Dry, normal turgor, no rashes or lesions noted. 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 Presenting with severe pain to the R foot. Foot with flushed appearance , high sensitivity to pain, concerning for arterial occlusion. Patient with history of CKD, will obtain arterial doppler to begin. If any concerns, will d/ w vascular and renal in terms of CTA.
--- NOTE | 2019-01-10 19:36 | PDOC ---
*Physical Exam - Vital Signs Last Vital Signs Temp Pulse Resp BP Pulse Ox 98.7 F 99 H 16 108/74 100 01/10/19 18:00 01/10/19 18:00 01/10/19 18:00 01/10/19 18:00 01/10/19 18:00 ED Treatment Course - LABORATORY CBC & Chemistry Diagram: 01/10/19 19:12 01/10/19 19:12 Medical Decision Making - Medical Decision Making 01/10/19 19:36 Received patient on signout; all results are pending. We will call [facility] once we have some results. 01/11/19 06:49 Patient Name: SARAH TREVIÑO THIS IS A PRELIMINARY REPORT FROM [facility] DATE OF SERVICE: 2019-01-10 21:38:28 IMAGES: 1964 EXAM: ABDOMEN CTA AOR \T\ BLE RUNOFF HISTORY: Right foot pain COMPARISON: None. FINDINGS: CTAThe abdominal aorta is patent with patent celiac, superior mesenteric, left renal and inferior mesenteric arteries. There is moderate stenosis at the origin of the right renal artery without occlusion Severe stenosis of the aorta just above the bifurcation. Occluded left iliac artery grafts as well as an occluded bifemoral graft with patent superficial and deep femoral arteries which fill via collateral circulation and are patent to the level of an above the knee amputation Patent right external iliac artery graft The right common femoral, superficial and deep femoral and popliteal arteries are widely patent There is three-vessel runoff to the ankle with patent or dorsalis pedis and plantar arch vessels CT abdomen and pelvisThe visualized lung bases are clear There is elevation of the right hemidiaphragm Small amount of fluid in the distal esophagus possibly refluxed The gallbladder is surgically absent There is extensive cortical scarring in the right kidney Left renal cyst The upper abdominal visceral organs are otherwise unremarkable There is no bowel distention There is a small bowel anastomosis in the right lower quadrant. The appendix is normal The pelvic organs are grossly normal No intra-abdominal free air, free fluid or loculated collections *DC/Admit/Observation/Transfer Diagnosis at time of Disposition: Right foot pain - Discharge Dispostion Condition at time of disposition: Stable - Referrals - Patient Instructions - Post Discharge Activity
[2019-01-10 19:39] LABS: BASO % 0.7 % (0-2.0); EOS % 7.2 % (0-4.5); HEMATOCRIT 38.6 % (32.4-45.2); HEMOGLOBIN 11.9 GM/dL (10.7-15.3); LYMPH % 37.3 % (8-40); MCH 27.4 pg (25.7-33.7); MCHC 30.9 g/dl (32.0-36.0); MEAN CELL VOLUME 88.9 fl (80-96); MEAN PLT VOLUME 10.2 fl (7.5-11.1); MONO % 4.2 % (3.8-10.2); NEUT % 50.6 % (42.8-82.8); PLATELET COUNT 270 K/MM3 (134-434); RBC 4.34 M/mm3 (3.60-5.2); WHITE BLOOD COUNT 10.9 K/mm3 (4.0-10.0)
--- NOTE | 2019-01-10 19:42 | PDOC ---
History of Present Illness - General Chief Complaint: Pain, Acute Stated Complaint: RIGHT LEG PAIN Time Seen by Provider: 01/10/19 18:20 History Source: Patient, Old Records Exam Limitations: No Limitations - History of Present Illness Initial Comments: HPI: 44 y/o female BIBEMS to [facility] ER complaining of pain to right great toe radiating to the top medial aspect of the foot and below the medial malleolus. Concerned that the great toe is discolored. Pain started spontaneously last night. Refractory to daily gabapentin and oxycodone. Denies trauma to the area. Unable to identify other eliciting events. Pt is s/p left AKA February 2018 after limb was found to be cold and dusky. Is concerned that the pain today is similar to what she felt during this episode. PCP: Dr. [facility] Hx: - PAD s/p multiple BLE revascularizations and stents (follows with Dr. Neil) - CAD s/p PDI 2014 - Protein S deficiency on coumadin - Prior long-time smoker - DM - HLD - HTN - [place] 2014 - CVA 2014 - CKD - COPD Review of Systems: In addition to that documented in the HPI above, the additional ROS was obtained : Constitutional: Denies fevers or chills Head: Denies vision changes ENMT: Denies sore throat CV: Denies chest pain Resp: Denies SOB GI: Denies vomiting or diarrhea : Denies painful urination MSK: Per HPI Skin: Denies new rashes Neuro: Denies new numbness or tingling or weakness Endocrine: Denies polyuria Heme: Denies bleeding or bruising Physical Examination: Constitutional: Adult female in no acute distress but mild obvious discomfort. Found semi-fowlers on hospital bed. Alert and oriented x4 Answered all questions appropriately and completely. Speech was non-labored, non-pressured. Cardiovascular / Chest: Regular rate and regular rhythm. No murmur, rubs, clicks, or gallops. Peripheral pulses: radial pulses full. Respiratory: Breathing unlabored. Equal chest rise and fall. Clear to auscultation bilaterally. No stridor, no wheezing, no rhonchi. Gastrointestinal: abdomen is soft, non-tender, non-distended. Neuro: Alert and oriented. Moving all three extremities spontaneously. Skin/MSK: S/p L AKA. Right great toe is slightly more red than other four toes. No skin lesions or breakdown. Able to flex and extend the toe. Foot is warm. Psych: Affect: appropriate. Mood: normal. MDM: *Reviewed vital signs, nursing notes, and prior visit documentation (if available). 44 y/o female with significant PAD s/p left AKA after ischemic limb presenting with pain and discoloration to right great toe. States symptoms are similar to ischemic event in the past. Possible arterial occlusion versus diabetic neuropathy versus MSK injury. Low suspicion for gout given physical exam findings. U/S of leg unremarkable for arterial occlusion. CTA of extremity ordered to better evaluate given significant history. No arterial occlusion noted. 20:[address] Neil 20:[address] Neil. Verbally appraised of the pts HPI, ED course, and current plan of management. No further orders requested. Will admit pt for observation, pain control, and vascular evaluation. Jameson Davila M.D., PGY1 Emergency Medicine Resident Past History - Past Medical History Allergies/Adverse Reactions: Allergies Allergy/AdvReac Type Severity Reaction Status Date / Time No Known Drug Allergies Allergy Verified 01/10/19 18:17 Home Medications: Ambulatory Orders Budesonide [Pulmicort 0.25 mg Nebulizer -] 1 neb PO BID 11/21/15 Albuterol 0.083% Nebulizer Carolyn [Ventolin 0.083% Nebulizer Soln -] 1 amp NEB Q6HPO amp 12/15/15 Insulin (Novolog) [Novolog -] 0 units SQ ASDIR 04/15/16 Pregabalin [Lyrica -] 150 mg PO TID 04/15/16 Acetaminophen [Tylenol .Regular Strength -] 650 mg PO Q6H PRN #0 tablet Docusate Sodium [Colace -] 100 mg PO BID #60 11/22/16 Iron Polysaccharides [Niferex-150 -] 150 mg PO DAILY #30 11/22/16 Meclizine HCl [Antivert -] 25 mg PO TID PRN #90 tablet 11/22/16 oxyCODONE HCL [Roxicodone -] 10 mg PO Q6H PRN #120 tablet MDD 4 11/22/16 Aspirin Coated [Ecotrin -] 81 mg PO DAILY tablet.ec 01/25/18 Insulin (Levemir) [Levemir Vial] 30 units SQ AM ml 01/25/18 Nitroglycerin Patch [Nitro-Dur Patch -] 0.1 mg TD DAILY #30 patch.td24 01/25/18 Cyclobenzaprine HCl [Flexeril -] 1 tab PO BID PRN 06/28/18 Rivaroxaban [Xarelto] 1 tab PO DAILY 06/28/18 LORazepam [Ativan] 1 mg PO BID MDD 2 01/10/19 Atorvastatin Ca [Lipitor] 40 mg PO HS #30 tablet 01/16/19 Lidocaine 5% Patch [Lidoderm -] 1 patch TP DAILY #30 patch 01/16/19 Mag Hydrox/Al Hydrox/Simeth [Mylanta Oral Suspension -] 30 ml PO Q6H PRN #1 bottle 01/16/19 Polyethylene Glycol 3350 [Miralax 119 gm Btl -] 17 gm PO TID #1 bottle 01/16/19 Anemia: No Asthma: Yes Cancer: No Cardiac Disorders: Yes (mild heart attack, 1 stent,CAD S/P PDI 2014) CVA: Yes (01/2015) COPD: No CHF: No DVT: No (PVD left leg amputation) Dementia: No Diabetes: Yes GI Disorders: Yes (perforated bowel,divertic,GERD) Disorders: Yes (Chronic kidney disease,not on dialysis) HTN: Yes Hypercholesterolemia: Yes Liver Disease: No Psychiatric Problems: Yes (anxiety) Seizures: No Thyroid Disease: No - Surgical History Abdominal Surgery: Yes (perforated bowel,hernia repair) Appendectomy: No Cardiac Surgery: Yes (stent ,bypass) Cholecystectomy: Yes Lung Surgery: No Neurologic Surgery: No Orthopedic Surgery: No (L HIP ORIF 2016) - Family Disease History Family Disease History: Diabetes: Father, Mother, Heart Disease: Father - Reproductive History Tubal Ligation: Yes (2003) - Immunization History Immunization Up to Date: Yes - Suicide/Smoking/Psychosocial Hx Smoking Status: No Smoking History: Unknown if ever smoked Have you smoked in the past 12 months: No Number of Cigarettes Smoked Daily: 5 If you are a former smoker, when did you quit?: 10 ya Information on smoking cessation initiated: No 'Breaking Loose' booklet given: 07/14/17 Hx Alcohol Use: No Drug/Substance Use Hx: No Substance Use Type: None Hx Substance Use Treatment: No *Physical Exam - Vital Signs Last Vital Signs Temp Pulse Resp BP Pulse Ox 98.7 F 99 H 16 108/74 100 01/10/19 18:00 01/10/19 18:00 01/10/19 18:00 01/10/19 18:00 01/10/19 18:00 ED Treatment Course - LABORATORY CBC & Chemistry Diagram: 01/16/19 07:00 01/16/19 07:00 - RADIOLOGY Radiology Studies Ordered: Category Date Time Status DUPLEX ART. LEGS- LIMITED US [US] Stat Ultrasound 01/10/19 19:30 Ordered Radiograph Interpretation: 01/10/19 23:12 Referring Physician: JOSHUA DALLAS Patient Name: SARAH TREVIÑO THIS IS A PRELIMINARY REPORT FROM [facility] DATE OF SERVICE: 2019-01-10 21:38:28 IMAGES: 1964 EXAM: ABDOMEN CTA AOR \T\ BLE RUNOFF HISTORY: Right foot pain COMPARISON: None. FINDINGS: CTAThe abdominal aorta is patent with patent celiac, superior mesenteric, left renal and inferior mesenteric arteries. There is moderate stenosis at the origin of the right renal artery without occlusion Severe stenosis of the aorta just above the bifurcation. Occluded left iliac artery grafts as well as an occluded bifemoral graft with patent superficial and deep femoral arteries which fill via collateral circulation and are patent to the level of an above the knee amputation Patent right external iliac artery graft The right common femoral, superficial and deep femoral and popliteal arteries are widely patent There is three-vessel runoff to the ankle with patent or dorsalis pedis and plantar arch vessels CT abdomen and pelvisThe visualized lung bases are clear There is elevation of the right hemidiaphragm Small amount of fluid in the distal esophagus possibly refluxed The gallbladder is surgically absent There is extensive cortical scarring in the right kidney Left renal cyst The upper abdominal visceral organs are otherwise unremarkable There is no bowel distention There is a small bowel anastomosis in the right lower quadrant. The appendix is normal The pelvic organs are grossly normal No intra-abdominal free air, free fluid or loculated collections Jameson Gama MD 01/10/2019 23:05 EST *DC/Admit/Observation/Transfer Diagnosis at time of Disposition: Right foot pain - Discharge Dispostion Disposition: HOME Condition at time of disposition: Stable Decision to Admit order: Yes - Referrals - Patient Instructions - Post Discharge Activity
[2019-01-10 20:04] LABS: ALBUMIN 2.7 g/dl (3.4-5.0); BILIRUBIN,TOTAL 0.1 mg/dL (0.2-1); CALCIUM 7.8 mg/dL (8.5-10.1); CREATININE 1.4 mg/dL (0.55-1.3); POTASSIUM 3.7 mmol/L (3.5-5.1); TOT PROT 6.9 g/dl (6.4-8.2)
[2019-01-10] MEDS ORDERED: morphine CARPU-JECT 2 MG/1 ML DISP.SYRIN IVPUSH ONE (20:58)
[2019-01-10] MEDS ORDERED: LACTATED RINGERS SOLUTION 1000 ML INFUS.BAG IV ONE (20:59)
[2019-01-10] MEDS ORDERED: morphine SULFATE 4 MG/ML VIAL ONE (21:12)
[2019-01-10] MEDS ORDERED: LACTATED RINGERS SOLUTION 1,000 ML/1,000 ML INFUS.BAG IV SCH (23:45)
--- NOTE | 2019-01-10 23:58 | HP ---
CHIEF COMPLAINT: right hallux pain PCP:Jarvis HISTORY OF PRESENT ILLNESS: 44 y/o female BIBEMS to [facility] ER complaining of pain to right great toe radiating to the top medial aspect of the foot and below the medial malleolus. Was concerned that the great toe is discolored. Pain started spontaneously 1 days ago ER course was notable for: (1) CTA (2) IV fluids (3) Recent Travel: no Medical Hx: - PAD s/p multiple BLE revascularizations and stents (follows with Dr. Neil) - CAD s/p PDI 2014 - Protein S deficiency on xarelto - Prior long-time smoker - DM - HLD - HTN - [place] 2014 - CVA 2014 - CKD - COPD PAST SURGICAL HISTORY: s/p left AKA February 2018, s/p cholecystectomy, tubal ligation , Hernia Repair ([facility]), ex lap Social History: Smoking:former- quit about 12 years ago Alcohol: Drugs: Family Disease History: Diabetes: Father, Mother, Heart Disease: Father Allergies No Known Drug Allergies Allergy (Verified 01/10/19 18:17) HOME MEDICATIONS: Home Medications Medication Instructions Recorded Budesonide [Pulmicort 0.25 mg 1 neb PO BID 11/21/15 Nebulizer -] Albuterol 0.083% Nebulizer Carolyn 1 amp NEB Q6HPO amp 12/15/15 [Ventolin 0.083% Nebulizer Soln -] Insulin (Novolog) [Novolog -] 0 units SQ ASDIR 04/15/16 Pregabalin [Lyrica -] 150 mg PO TID 04/15/16 Acetaminophen [Tylenol .Regular 650 mg PO Q6H PRN #0 tablet 11/22/16 Strength -] Atorvastatin Ca [Lipitor] 20 mg PO HS #30 tablet 11/22/16 Docusate Sodium [Colace -] 100 mg PO BID #60 11/22/16 Iron Polysaccharides [Niferex-150 150 mg PO DAILY #30 11/22/16 -] Meclizine HCl [Antivert -] 25 mg PO TID PRN #90 tablet 11/22/16 oxyCODONE HCL [Roxicodone -] 10 mg PO Q6H PRN #120 tablet MDD 4 11/22/16 Aspirin Coated [Ecotrin -] 81 mg PO DAILY tablet.ec 01/25/18 Insulin (Levemir) [Levemir Vial] 30 units SQ AM ml 01/25/18 Lidocaine 5% Patch [Lidoderm -] 1 patch TP DAILY patch 01/25/18 Nitroglycerin Patch [Nitro-Dur] 0.1 mg TD DAILY #30 patch.td24 01/25/18 Cyclobenzaprine HCl [Flexeril -] 1 tab PO BID PRN 06/28/18 Rivaroxaban [Xarelto -] 1 tab PO DAILY 06/28/18 LORazepam [Ativan] 1 mg PO BID MDD 2 01/10/19 Polyethylene Glycol 3350 [Miralax 17 gm PO DAILY PRN 01/10/19 119 gm Btl -] REVIEW OF SYSTEMS CONSTITUTIONAL: Absent: fever, chills, diaphoresis, generalized weakness, malaise, loss of appetite, weight change HEENT: Absent: rhinorrhea, nasal congestion, throat pain, throat swelling, difficulty swallowing, mouth swelling, ear pain, eye pain, visual changes CARDIOVASCULAR: Absent: chest pain, syncope, palpitations, irregular heart rate, lightheadedness , peripheral edema RESPIRATORY: Absent: cough, shortness of breath, dyspnea with exertion, orthopnea, wheezing, stridor, hemoptysis GASTROINTESTINAL: Absent: abdominal pain, abdominal distension, nausea, vomiting, diarrhea, constipation, melena, hematochezia GENITOURINARY: Absent: dysuria, frequency, urgency, hesitancy, hematuria, flank pain, genital pain MUSCULOSKELETAL: Absent: joint swelling, back pain, neck pain present- myalgia, arthralgia, SKIN: Absent: rash, itching, pallor HEMATOLOGIC/IMMUNOLOGIC: Absent: easy bleeding, easy bruising, lymphadenopathy, frequent infections ENDOCRINE: Absent: unexplained weight gain, unexplained weight loss, heat intolerance, cold intolerance NEUROLOGIC: Absent: headache, focal weakness or paresthesias, dizziness, unsteady gait, seizure, mental status changes, bladder or bowel incontinence PSYCHIATRIC: Absent: anxiety, depression, suicidal or homicidal ideation, hallucinations. PHYSICAL EXAMINATION Vital Signs - 24 hr 01/10/19 01/10/19 18:00 20:00 Temperature 98.7 F Pulse Rate 99 H Respiratory 16 16 Rate Blood Pressure 108/74 O2 Sat by Pulse 100 100 Oximetry (%) GENERAL: Awake, alert, and fully oriented, in no acute distress. HEAD: Normal with no signs of trauma. EYES: Pupils equal, round and reactive to light, extraocular movements intact, sclera anicteric, conjunctiva clear. No lid lag. EARS, NOSE, THROAT: Ears normal, nares patent, oropharynx clear without exudates. Moist mucous membranes. NECK: Normal range of motion, supple without lymphadenopathy, JVD, or masses. LUNGS: Breath sounds equal, clear to auscultation bilaterally. No wheezes, and no crackles. No accessory muscle use. HEART: Regular rate and rhythm, normal S1 and S2 without murmur, rub or gallop. ABDOMEN: Soft, nontender, not distended, normoactive bowel sounds, midline scar s/p ex lap MUSCULOSKELETAL: Normal range of motion at all joints. No bony deformities or tenderness. No CVA tenderness. UPPER EXTREMITIES: 2+ pulses, warm, well-perfused. No cyanosis. No clubbing. No peripheral edema. LOWER EXTREMITIES: s/p left bka, well healed stump, right leg warm to touch, DP pulse 2+, great toe warm, not discolored, no swelling or erythema NEUROLOGICAL: Cranial nerves II-XII intact. Normal speech. Normal gait. PSYCHIATRIC: Cooperative. Good eye contact. Appropriate mood and affect. SKIN: Warm, dry, normal turgor, no rashes or lesions noted, normal capillary refill. Laboratory Results - last 24 hr 01/10/19 01/10/19 01/10/19 19:12 19:12 20:32 WBC 10.9 H RBC 4.34 Hgb 11.9 Hct 38.6 D MCV 88.9 MCH 27.4 D MCHC 30.9 L RDW 16.0 H Plt Count 270 D MPV 10.2 D Absolute Neuts (auto) 5.5 Neutrophils % 50.6 D Lymphocytes % 37.3 D Monocytes % 4.2 Eosinophils % 7.2 H D Basophils % 0.7 Nucleated RBC % 0 Sodium 140 Potassium 3.7 Chloride 110 H Carbon Dioxide 22 Anion Gap 8 BUN 11 Creatinine 1.4 H Est GFR (CKD-EPI)AfAm 52.09 Est GFR (CKD-EPI)NonAf 44.95 Random Glucose 96 Calcium 7.8 L Total Bilirubin 0.1 L AST 14 L ALT 9 L Alkaline Phosphatase 180 H Total Protein 6.9 Albumin 2.7 L Serum , Qual Negative CTA The abdominal aorta is patent with patent celiac, superior mesenteric, left renal and inferior mesenteric arteries. There is moderate stenosis at the origin of the right renal artery without occlusion Severe stenosis of the aorta just above the bifurcation. Occluded left iliac artery grafts as well as an occluded bifemoral graft with patent superficial and deep femoral arteries which fill via collateral circulation and are patent to the level of an above the knee amputation Patent right external iliac artery graft The right common femoral, superficial and deep femoral and popliteal arteries are widely patent There is three-vessel runoff to the ankle with patent or dorsalis pedis and plantar arch vessels CT abdomen and pelvisThe visualized lung bases are clear There is elevation of the right hemidiaphragm Small amount of fluid in the distal esophagus possibly refluxed The gallbladder is surgically absent There is extensive cortical scarring in the right kidney Left renal cyst The upper abdominal visceral organs are otherwise unremarkable There is no bowel distention There is a small bowel anastomosis in the right lower quadrant. The appendix is normal The pelvic organs are grossly normal No intra-abdominal free air, free fluid or loculated collections Assessment and Plan #Right hallux pain- unsure etiology, may be intermittent claudication as severe stenosis in aorta. Great toe physical exam is quite normal. Do not suspect gout. No history of trauma. -observation for pain control and vascular surgery eval -send lactate -gentle IV fluid hydration after CTA -morphine IV prn if pain -lower ext duplex u/s to r/o dvt -vascular surgery consult -Dr. Neil #CAD #Protein S deficiency #DM #HLD #HTN #CVA 2014 #CKD #COPD #chronic back pain #Intermittent vertigo -c/w xarelto home dose for protein C deficiency history - dvt ppx -lidocaine patch, cyclobenzaprine prn, morphine prn for back pain and right tow pain -pregabalin -lantus 30 units qhs, novolog sliding scale for DM -c/w atorvastatin -ASA 81mg daily -albuterol neb prn -ekg -diabetic, low sodium diet Visit type - Emergency Visit Emergency Visit: Yes ED Registration Date: 01/10/19 Care time: The patient presented to the Emergency Department on the above date and was hospitalized for further evaluation of their emergent condition. - New Patient This patient is new to me today: Yes Date on this admission: 01/11/19 - Critical Care Critical Care patient: No
[2019-01-11] MEDS ORDERED: ALBUTEROL SO4 0.083% IH SOL 2.5 MG/3 ML VIAL.NEB. NEB PRN (00:17)
[2019-01-11] MEDS ORDERED: morphine SULFATE 4 MG/ML VIAL ONE (02:27)
[2019-01-11] MEDS: morphine SULFATE 4 MG/ML VIAL IVPUSH PRN ×5 (02:33→22:48)
[2019-01-11] MEDS ORDERED: LACTATED RINGERS SOLUTION 1,000 ML/1,000 ML INFUS.BAG IV SCH (03:41)
[2019-01-11] MEDS: INSULIN SLIDING SCALE (NOVOLOG) 1 VIAL SQ SCH ×4 (06:17→22:04)
[2019-01-11] MEDS: INSULIN (LEVEMIR) 100 UNITS/ML UNITS SQ SCH (06:41)
[2019-01-11] MEDS: PREGABALIN 75 MG CAPSULE PO SCH ×3 (06:41→22:04)
[2019-01-11 07:22] LABS: HEMOGLOBIN 11.2 GM/dL (10.7-15.3); MCH 27.9 pg (25.7-33.7); MEAN CELL VOLUME 87.2 fl (80-96); MEAN PLT VOLUME 9.4 fl (7.5-11.1); PLATELET COUNT 284 K/MM3 (134-434); RBC 4.01 M/mm3 (3.60-5.2); RDW 15.9 % (11.6-15.6); WHITE BLOOD COUNT 9.6 K/mm3 (4.0-10.0)
[2019-01-11 07:40] LABS: CALCIUM 8.1 mg/dL (8.5-10.1); CREATININE 1.6 mg/dL (0.55-1.3); POTASSIUM 3.7 mmol/L (3.5-5.1)
[2019-01-11] MEDS ORDERED: PT OWN MED DRAWER 7, Y5N ONE ×3 (09:00→18:17)
[2019-01-11] MEDS: ASPIRIN COATED 81 MG TABLET.EC PO SCH (09:06)
[2019-01-11] MEDS: LIDOCAINE 5% TOPICAL PATCH TP SCH (09:06)
[2019-01-11] MEDS: DOCUSATE SODIUM 100 MG CAPSULE (FP) PO SCH ×2 (09:07→22:03)
[2019-01-11] MEDS ORDERED: HEPARIN NA (PORCINE) 5,000 UNITS/ML 1ML VIAL SQ SCH (10:00)
[2019-01-11] MEDS ORDERED: RIVAROXABAN 15 MG TABLET PO SCH ×2 (10:00)
[2019-01-11] MEDS ORDERED: LIDOCAINE 5% TOPICAL PATCH TP SCH (10:00)
--- NOTE | 2019-01-11 11:43 | EKG ---
Test Reason : Blood Pressure : / mmHG Vent. Rate : 095 BPM Atrial Rate : 095 BPM P-R Int : 138 ms QRS Dur : 098 ms QT Int : 296 ms P-R-T Axes : 046 007 088 degrees QTc Int : 371 ms SINUS RHYTHM WITH OCCASIONAL PREMATURE VENTRICULAR COMPLEXES NONSPECIFIC T WAVE ABNORMALITY ABNORMAL ECG WHEN COMPARED WITH ECG OF 22-FEB-2018 11:41, PREMATURE VENTRICULAR COMPLEXES ARE NOW PRESENT NONSPECIFIC T WAVE ABNORMALITY NOW EVIDENT IN INFERIOR LEADS NONSPECIFIC T WAVE ABNORMALITY NOW EVIDENT IN ANTEROLATERAL LEADS QT HAS SHORTENED Confirmed by STEPHANY JENNINGS, ZAC ([id number]) on 01/11/2019 11:42:54 AM Referred By: Confirmed By:ZAC HAMMOND MD
--- NOTE | 2019-01-11 12:30 | PN ---
Progress Note, Physician Chief Complaint: Right foot pain History of Present Illness: NAD CTA reviewed-severe aortic stenosis Vascular consult pending - Current Medication List Current Medications: Active Medications Albuterol Sulfate (Ventolin 0.083% Nebulizer Soln -) 1 amp NEB Q6H PRN PRN Reason: WHEEZING Aspirin (Ecotrin -) 81 mg PO DAILY [facility] Last Admin: 01/11/19 09:06 Dose: 81 mg Atorvastatin Calcium (Lipitor -) 20 mg PO HS [facility] Cyclobenzaprine HCl (Flexeril -) 10 mg PO BID PRN PRN Reason: MUSCLE SPASMS Docusate Sodium (Colace -) 100 mg PO BID [facility] Last Admin: 01/11/19 09:07 Dose: Not Given Lactated Ringer's (Lactated Ringers Solution) 1,000 ml in 1,000 mls @ 75 mls/ hr IV ASDIR [facility] Stop: 01/11/19 13:04 Last Admin: 01/11/19 06:16 Dose: Not Given Insulin Aspart (Novolog Vial Sliding Scale -) 1 vial SQ [facility]; Protocol Last Admin: 01/11/19 11:37 Dose: Not Given Insulin Detemir (Levemir Vial) 30 units SQ AM [facility] Last Admin: 01/11/19 06:41 Dose: 30 units Lidocaine (Lidoderm Patch -) 1 patch TP DAILY [facility] Last Admin: 01/11/19 09:06 Dose: 1 patch Meclizine HCl (Antivert -) 25 mg PO TID PRN PRN Reason: VERTIGO Miscellaneous (Lidoderm Patch Removal) 1 each MC DAILY@2200 [facility] Morphine Sulfate (Morphine Sulfate) 2 mg IVPUSH Q4H PRN PRN Reason: PAIN LEVEL 6-10 Last Admin: 01/11/19 09:05 Dose: 2 mg Pregabalin (Lyrica -) 150 mg PO TID [facility] Last Admin: 01/11/19 06:41 Dose: 150 mg Rivaroxaban (Xarelto) 15 mg PO DAILY@1800 [facility] - Objective Vital Signs: Vital Signs Temperature 98.1 F 01/11/19 10:00 Pulse Rate 98 H 01/11/19 10:00 Respiratory Rate 20 01/11/19 10:00 Blood Pressure 118/60 01/11/19 10:00 O2 Sat by Pulse Oximetry (%) 95 01/11/19 10:00 Constitutional: Yes: Well Nourished, No Distress, Calm Cardiovascular: Yes: Regular Rate and Rhythm Respiratory: Yes: Regular Gastrointestinal: Yes: Normal Bowel Sounds, Soft Musculoskeletal: Yes: Other (right LE pain-throbbing,dull) Extremities: Yes: Amputation (LBKA) Edema: No Peripheral Pulses WNL: Yes Peripheral Pulses: Right Dorsalis Pedis: 1+ Neurological: Yes: Alert, Oriented Psychiatric: Yes: Alert, Oriented Labs: CBC, BMP 01/11/19 06:35 01/11/19 06:35 Problem List - Problems (1) Right foot pain Assessment/Plan: -Seen by Vascular surgery -CTA reviewed -No surgical intervention recommended at this time -Oxycodone for pain -RLE FELIX Code(s): M79.671 - PAIN IN RIGHT FOOT (2) CAD (coronary artery disease) Assessment/Plan: -on xarelto 15 mg po daily -recheck LDL -Increase atorvastatin to 40 mg po HS if LDL >70 mg/dl Code(s): I25.10 - ATHSCL HEART DISEASE OF [place] CORONARY ARTERY W/O ANG PCTRS Qualifiers: Coronary Disease-Associated Artery/Lesion type: coronary artery bypass graft Associated angina: without angina pectoris (3) Chronic kidney disease (CKD) Assessment/Plan: -Cr at baseline -monitor trend Code(s): N18.9 - CHRONIC KIDNEY DISEASE, UNSPECIFIED (4) Diabetes mellitus Assessment/Plan: -A1c at 8.8 -BGM AC HS -Diabetic/low sodium/low chol diet -Novolog sliding scale -Levemir -RD consult Code(s): E11.9 - TYPE 2 DIABETES MELLITUS WITHOUT COMPLICATIONS (5) Lactic acidosis Assessment/Plan: -resolved -likely elevated 2/2 to CKD -Afebrile -no leukocytosis Code(s): E87.2 - ACIDOSIS Assessment/Plan see problem list Physical therapy
--- NOTE | 2019-01-11 13:02 | CONSULT ---
Consult - text type - Consultation Consultation Note: 44 year old woman with history of early onset PAD, DM, former smoker who required multiple procedures for left leg ischemia and ultimately had AKA. She has been well receiving PT but yesterday developed pain radiating from the right 1st toe up her leg. She has a history of lower back problems with pain but denies any recent flare-ups. ON exam, the right foot is warm, no ischmeic skin changes. Callus present on the heel without ulceration. No edema or erythema noted. The calf and thigh are soft. Pulses are not palpable. Arterial Duplex and CTA confirm intact flow from aorta to lower leg. Stent in the right iliac is patent. Imp: No evidence for acute arterial occlusion. Symptoms may be related to her chronic PAD or spinal nerve compression. Rec: Arterial Doppler with FELIX to assess distal flow. Evaluation for spinal nerve compression.
[2019-01-11] MEDS: RIVAROXABAN 15 MG TABLET PO SCH (18:23)
[2019-01-11] MEDS: LIDOCAINE PATCH REMOVAL MC SCH (22:03)
[2019-01-11] MEDS: ATORVASTATIN CA 20 MG TABLET (FP) PO SCH (22:04)
[2019-01-12] MEDS: morphine SULFATE 4 MG/ML VIAL IVPUSH PRN ×4 (02:55→15:49)
[2019-01-12] MEDS: INSULIN SLIDING SCALE (NOVOLOG) 1 VIAL SQ SCH ×4 (06:51→21:52)
[2019-01-12] MEDS: INSULIN (LEVEMIR) 100 UNITS/ML UNITS SQ SCH (06:51)
[2019-01-12] MEDS: PREGABALIN 75 MG CAPSULE PO SCH ×3 (07:04→21:52)
[2019-01-12] MEDS: ASPIRIN COATED 81 MG TABLET.EC PO SCH (09:29)
[2019-01-12] MEDS: LIDOCAINE 5% TOPICAL PATCH TP SCH (09:30)
[2019-01-12] MEDS: DOCUSATE SODIUM 100 MG CAPSULE (FP) PO SCH ×2 (10:38→21:42)
--- NOTE | 2019-01-12 13:52 | PN ---
Progress Note, Physician Chief Complaint: Right foot pain History of Present Illness: NAD CTA reviewed-severe aortic stenosis Vascular consult appreciated MRI lumbar spine negative U/S art/pvr ordered - Current Medication List Current Medications: Active Medications Al Hydroxide/Mg Hydroxide (Mylanta Oral Suspension -) 30 ml PO Q6H PRN PRN Reason: DYSPEPSIA Albuterol Sulfate (Ventolin 0.083% Nebulizer Soln -) 1 amp NEB Q6H PRN PRN Reason: WHEEZING Aspirin (Ecotrin -) 81 mg PO DAILY [facility] Last Admin: 01/12/19 09:29 Dose: 81 mg Atorvastatin Calcium (Lipitor -) 20 mg PO HS [facility] Last Admin: 01/11/19 22:04 Dose: 20 mg Cyclobenzaprine HCl (Flexeril -) 10 mg PO BID PRN PRN Reason: MUSCLE SPASMS Docusate Sodium (Colace -) 100 mg PO BID [facility] Last Admin: 01/12/19 10:38 Dose: Not Given Insulin Aspart (Novolog Vial Sliding Scale -) 1 vial SQ [facility]; Protocol Last Admin: 01/12/19 12:24 Dose: Not Given Insulin Detemir (Levemir Vial) 30 units SQ AM [facility] Last Admin: 01/12/19 06:51 Dose: Not Given Lidocaine (Lidoderm Patch -) 1 patch TP DAILY [facility] Last Admin: 01/12/19 09:30 Dose: 1 patch Meclizine HCl (Antivert -) 25 mg PO TID PRN PRN Reason: VERTIGO Miscellaneous (Lidoderm Patch Removal) 1 each MC DAILY@2200 [facility] Last Admin: 01/11/19 22:03 Dose: 1 each Morphine Sulfate (Morphine Sulfate) 2 mg IVPUSH Q4H PRN PRN Reason: PAIN LEVEL 6-10 Last Admin: 01/12/19 11:32 Dose: 2 mg Pregabalin (Lyrica -) 150 mg PO TID [facility] Last Admin: 01/12/19 13:25 Dose: 150 mg Rivaroxaban (Xarelto) 15 mg PO DAILY@1800 [facility] Last Admin: 01/11/19 18:23 Dose: 15 mg - Objective Vital Signs: Vital Signs Temperature 98.8 F 01/12/19 06:00 Pulse Rate 102 H 01/12/19 06:00 Respiratory Rate 18 01/12/19 10:00 Blood Pressure 109/54 L 01/12/19 06:00 O2 Sat by Pulse Oximetry (%) 99 01/12/19 10:00 Constitutional: Yes: Well Nourished, No Distress, Calm Cardiovascular: Yes: Regular Rate and Rhythm Respiratory: Yes: Regular Gastrointestinal: Yes: Normal Bowel Sounds, Soft Musculoskeletal: Yes: Other (rle pain) Extremities: Yes: Amputation (LBKA) Edema: No Peripheral Pulses WNL: Yes Peripheral Pulses: Right Dorsalis Pedis: 1+ Neurological: Yes: Alert, Oriented Psychiatric: Yes: Alert, Oriented Labs: CBC, BMP 01/11/19 06:35 01/11/19 06:35 Problem List - Problems (1) Right foot pain Assessment/Plan: -Seen by Vascular surgery -CTA reviewed -No surgical intervention recommended at this time -Oxycodone for pain -RLE FELIX Code(s): M79.671 - PAIN IN RIGHT FOOT (2) CAD (coronary artery disease) Assessment/Plan: -on xarelto 15 mg po daily -recheck LDL -Increase atorvastatin to 40 mg po HS if LDL >70 mg/dl Code(s): I25.10 - ATHSCL HEART DISEASE OF [place] CORONARY ARTERY W/O ANG PCTRS Qualifiers: Coronary Disease-Associated Artery/Lesion type: coronary artery bypass graft Associated angina: without angina pectoris (3) Chronic kidney disease (CKD) Assessment/Plan: -Cr at baseline -monitor trend Code(s): N18.9 - CHRONIC KIDNEY DISEASE, UNSPECIFIED (4) Diabetes mellitus Assessment/Plan: -A1c at 8.8 -BGM AC HS -Diabetic/low sodium/low chol diet -Novolog sliding scale -Levemir -RD consult Code(s): E11.9 - TYPE 2 DIABETES MELLITUS WITHOUT COMPLICATIONS (5) Lactic acidosis Assessment/Plan: -resolved -likely elevated 2/2 to CKD -Afebrile -no leukocytosis Code(s): E87.2 - ACIDOSIS Assessment/Plan see problem list Physical therapy
[2019-01-12] MEDS: MAG HYDROX/AL HYDROX/SIMETH 30 ML UNIT-DOSE CUP PO PRN (14:21)
[2019-01-12] MEDS: RIVAROXABAN 15 MG TABLET PO SCH (17:32)
[2019-01-12] MEDS ORDERED: ACETAMINOPHEN 325 MG TABLET (FP) PO PRN (19:09)
[2019-01-12] MEDS: MORPHINE SULFATE 2 MG/ML VIAL IVPUSH PRN ×2 (19:54→23:59)
[2019-01-12] MEDS: LIDOCAINE PATCH REMOVAL MC SCH (21:52)
[2019-01-12] MEDS: ATORVASTATIN CA 20 MG TABLET (FP) PO SCH (21:52)
[2019-01-13] MEDS: MORPHINE SULFATE 2 MG/ML VIAL IVPUSH PRN ×5 (05:05→22:16)
[2019-01-13 06:20] LABS: BASO % 0.8 % (0-2.0); EOS % 9.1 % (0-4.5); HEMATOCRIT 33.1 % (32.4-45.2); HEMOGLOBIN 10.7 GM/dL (10.7-15.3); LYMPH % 24.1 % (8-40); MCH 27.6 pg (25.7-33.7); MCHC 32.2 g/dl (32.0-36.0); MEAN CELL VOLUME 85.9 fl (80-96); MEAN PLT VOLUME 9.5 fl (7.5-11.1); MONO % 5.5 % (3.8-10.2); NEUT % 60.5 % (42.8-82.8); PLATELET COUNT 277 K/MM3 (134-434); RBC 3.86 M/mm3 (3.60-5.2); RDW 15.8 % (11.6-15.6); WHITE BLOOD COUNT 10.2 K/mm3 (4.0-10.0)
[2019-01-13] MEDS: INSULIN (LEVEMIR) 100 UNITS/ML UNITS SQ SCH (06:39)
[2019-01-13] MEDS: INSULIN SLIDING SCALE (NOVOLOG) 1 VIAL SQ SCH ×4 (06:39→22:17)
[2019-01-13] MEDS: PREGABALIN 75 MG CAPSULE PO SCH ×3 (06:39→22:16)
[2019-01-13] MEDS ORDERED: INSULIN (NOVOLOG) ASPART 100 UNITS/ML 10ML VIAL ONE (06:44)
[2019-01-13 07:26] LABS: ALBUMIN 2.2 g/dl (3.4-5.0); BILIRUBIN,TOTAL 0.1 mg/dL (0.2-1); CALCIUM 7.9 mg/dL (8.5-10.1); CREATININE 1.2 mg/dL (0.55-1.3); POTASSIUM 3.7 mmol/L (3.5-5.1); TOT PROT 5.9 g/dl (6.4-8.2)
[2019-01-13] MEDS: CYCLOBENZAPRINE HCL 10 MG TABLET (FP) PO PRN (09:35)
[2019-01-13] MEDS: LIDOCAINE 5% TOPICAL PATCH TP SCH (09:35)
[2019-01-13] MEDS: ASPIRIN COATED 81 MG TABLET.EC PO SCH (09:35)
[2019-01-13] MEDS: MECLIZINE HCL 25 MG TABLET (FP) PO PRN (09:35)
[2019-01-13] MEDS: DOCUSATE SODIUM 100 MG CAPSULE (FP) PO SCH ×2 (09:35→22:16)
--- NOTE | 2019-01-13 10:21 | PN ---
Progress Note, Physician Chief Complaint: R foot pain History of Present Illness: Previous notes and events reviewed awake and alert NAD complain of abdominal cramping and non-bloody loose stools - Current Medication List Current Medications: Active Medications Acetaminophen (Tylenol -) 650 mg PO Q4H PRN PRN Reason: PAIN LEVEL 1 - 3/TEMP OVER 100 Al Hydroxide/Mg Hydroxide (Mylanta Oral Suspension -) 30 ml PO Q6H PRN PRN Reason: DYSPEPSIA Last Admin: 01/12/19 14:21 Dose: 30 ml Albuterol Sulfate (Ventolin 0.083% Nebulizer Soln -) 1 amp NEB Q6H PRN PRN Reason: WHEEZING Aspirin (Ecotrin -) 81 mg PO DAILY [facility] Last Admin: 01/13/19 09:35 Dose: 81 mg Atorvastatin Calcium (Lipitor -) 20 mg PO HS [facility] Last Admin: 01/12/19 21:52 Dose: 20 mg Cyclobenzaprine HCl (Flexeril -) 10 mg PO BID PRN PRN Reason: MUSCLE SPASMS Last Admin: 01/13/19 09:35 Dose: 10 mg Docusate Sodium (Colace -) 100 mg PO BID [facility] Last Admin: 01/13/19 09:35 Dose: 100 mg Insulin Aspart (Novolog Vial Sliding Scale -) 1 vial SQ ACHS [facility]; Protocol Last Admin: 01/13/19 06:39 Dose: 2 unit Insulin Detemir (Levemir Vial) 30 units SQ AM [facility] Last Admin: 01/13/19 06:39 Dose: 30 units Lidocaine (Lidoderm Patch -) 1 patch TP DAILY [facility] Last Admin: 01/13/19 09:35 Dose: 1 patch Meclizine HCl (Antivert -) 25 mg PO TID PRN PRN Reason: VERTIGO Last Admin: 01/13/19 09:35 Dose: 25 mg Miscellaneous (Lidoderm Patch Removal) 1 each MC DAILY@2200 [facility] Last Admin: 01/12/19 21:52 Dose: 1 each Morphine Sulfate (Morphine Sulfate) 2 mg IVPUSH Q4H PRN PRN Reason: PAIN LEVEL 7 - 10 Last Admin: 01/13/19 09:36 Dose: 2 mg Oxycodone HCl (Roxicodone -) 5 mg PO Q4H PRN PRN Reason: PAIN LEVEL 4 - 6 Pregabalin (Lyrica -) 150 mg PO TID [facility] Last Admin: 01/13/19 06:39 Dose: 150 mg Rivaroxaban (Xarelto) 15 mg PO DAILY@1800 [facility] Last Admin: 01/12/19 17:32 Dose: 15 mg - Objective Vital Signs: Vital Signs Temperature 98.4 F 01/13/19 06:00 Pulse Rate 93 H 01/13/19 06:00 Respiratory Rate 18 01/13/19 06:00 Blood Pressure 122/71 01/13/19 06:00 O2 Sat by Pulse Oximetry (%) 99 01/12/19 18:00 Constitutional: Yes: No Distress, Calm Eyes: Yes: Conjunctiva Clear HENT: Yes: Atraumatic Cardiovascular: Yes: Regular Rate and Rhythm Respiratory: Yes: Regular, CTA Bilaterally Gastrointestinal: Yes: Normal Bowel Sounds, Soft, Tenderness (diffuse) Musculoskeletal: Yes: Muscle Weakness Extremities: Yes: Other (L AKA) Edema: No Neurological: Yes: Alert, Oriented Psychiatric: Yes: Alert, Oriented Labs: CBC, BMP 01/13/19 05:15 01/13/19 05:15 - ....Imaging Ultrasound: Report Reviewed MRI: Report Reviewed Problem List - Problems (1) Lactic acidosis Assessment/Plan: -LA 1.0 -resolved Code(s): E87.2 - ACIDOSIS (2) Right foot pain Assessment/Plan: -Vascular on board -US of RLE neg for DVT -CTA performed -pending Arterial US of RLE -pain management Code(s): M79.671 - PAIN IN RIGHT FOOT (3) CAD (coronary artery disease) Assessment/Plan: -Lipid panel shows LDL 83 -Atorvastatin 40mg HS, Xarelto, Aspirin Code(s): I25.10 - ATHSCL HEART DISEASE OF [place] CORONARY ARTERY W/O ANG PCTRS Qualifiers: Coronary Disease-Associated Artery/Lesion type: coronary artery bypass graft Associated angina: without angina pectoris (4) Chronic kidney disease (CKD) Assessment/Plan: -BUN/Cr 181.2 -continue to monitor renal function daily Code(s): N18.9 - CHRONIC KIDNEY DISEASE, UNSPECIFIED (5) Diabetes mellitus Assessment/Plan: -BGM ACHS -Levemir + ISS -HgA1c 8.8% -diabetic diet Code(s): E11.9 - TYPE 2 DIABETES MELLITUS WITHOUT COMPLICATIONS Assessment/Plan see problem list dvt ppx
[2019-01-13 16:30] VITALS: BMI 29.2
[2019-01-13] MEDS ORDERED: PT OWN MED DRAWER 7, Y5N ONE (17:03)
[2019-01-13] MEDS: RIVAROXABAN 15 MG TABLET PO SCH (18:04)
[2019-01-13] MEDS: ATORVASTATIN CA 40 MG TABLET (FP) PO SCH (22:16)
[2019-01-13] MEDS: LIDOCAINE PATCH REMOVAL MC SCH (22:16)
[2019-01-14] MEDS: MORPHINE SULFATE 2 MG/ML VIAL IVPUSH PRN ×5 (02:52→21:51)
[2019-01-14] MEDS: PREGABALIN 75 MG CAPSULE PO SCH ×3 (05:43→21:51)
[2019-01-14] MEDS: INSULIN SLIDING SCALE (NOVOLOG) 1 VIAL SQ SCH ×4 (06:20→21:52)
[2019-01-14 06:37] LABS: HEMATOCRIT 34.5 % (32.4-45.2); HEMOGLOBIN 11.1 GM/dL (10.7-15.3); MCH 27.8 pg (25.7-33.7); MCHC 32.1 g/dl (32.0-36.0); MEAN CELL VOLUME 86.5 fl (80-96); MEAN PLT VOLUME 10.2 fl (7.5-11.1); PLATELET COUNT 296 K/MM3 (134-434); RBC 3.99 M/mm3 (3.60-5.2); RDW 15.3 % (11.6-15.6); WHITE BLOOD COUNT 9.1 K/mm3 (4.0-10.0)
[2019-01-14 06:59] LABS: ALBUMIN 2.2 g/dl (3.4-5.0); BILIRUBIN,TOTAL 0.1 mg/dL (0.2-1); CALCIUM 8.3 mg/dL (8.5-10.1); CREATININE 1.2 mg/dL (0.55-1.3); POTASSIUM 4.3 mmol/L (3.5-5.1); TOT PROT 6.2 g/dl (6.4-8.2)
[2019-01-14] MEDS: ASPIRIN COATED 81 MG TABLET.EC PO SCH (09:47)
[2019-01-14] MEDS: INSULIN (LEVEMIR) 100 UNITS/ML UNITS SQ SCH (09:47)
[2019-01-14] MEDS: DOCUSATE SODIUM 100 MG CAPSULE (FP) PO SCH ×2 (09:47→21:51)
[2019-01-14] MEDS: LIDOCAINE 5% TOPICAL PATCH TP SCH (09:47)
--- NOTE | 2019-01-14 11:13 | PN ---
Progress Note (short form) - Note Progress Note: Complains foot hurts while lying in bed. Exam unchanged, foot warm. Doppler study showed good flow to ankle with moderate decrease in flow in foot. FELIX 0.6 Imp: Mild-moderate distal PAD right leg, no critical ischemia to explain symptoms. Pain is more likely related to neuropathy or orthopedic problem in foot. She can be OOB and increase activity as tolerated.
--- NOTE | 2019-01-14 16:10 | PN ---
Progress Note, Physician Chief Complaint: R foot pain History of Present Illness: Previous notes and events reviewed awake and alert NAD complain of abdominal cramping and denies loose BM - Current Medication List Current Medications: Active Medications Acetaminophen (Tylenol -) 650 mg PO Q4H PRN PRN Reason: PAIN LEVEL 1 - 3/TEMP OVER 100 Al Hydroxide/Mg Hydroxide (Mylanta Oral Suspension -) 30 ml PO Q6H PRN PRN Reason: DYSPEPSIA Last Admin: 01/12/19 14:21 Dose: 30 ml Albuterol Sulfate (Ventolin 0.083% Nebulizer Soln -) 1 amp NEB Q6H PRN PRN Reason: WHEEZING Aspirin (Ecotrin -) 81 mg PO DAILY [facility] Last Admin: 01/14/19 09:47 Dose: 81 mg Atorvastatin Calcium (Lipitor -) 40 mg PO HS [facility] Last Admin: 01/13/19 22:16 Dose: 40 mg Cyclobenzaprine HCl (Flexeril -) 10 mg PO BID PRN PRN Reason: MUSCLE SPASMS Last Admin: 01/13/19 09:35 Dose: 10 mg Docusate Sodium (Colace -) 100 mg PO BID [facility] Last Admin: 01/14/19 09:47 Dose: Not Given Insulin Aspart (Novolog Vial Sliding Scale -) 1 vial SQ ACHS [facility]; Protocol Last Admin: 01/14/19 12:52 Dose: Not Given Insulin Detemir (Levemir Vial) 30 units SQ AM [facility] Last Admin: 01/14/19 09:47 Dose: Not Given Lidocaine (Lidoderm Patch -) 1 patch TP DAILY [facility] Last Admin: 01/14/19 09:47 Dose: 1 patch Meclizine HCl (Antivert -) 25 mg PO TID PRN PRN Reason: VERTIGO Last Admin: 01/13/19 09:35 Dose: 25 mg Miscellaneous (Lidoderm Patch Removal) 1 each MC DAILY@2200 [facility] Last Admin: 01/13/19 22:16 Dose: 1 each Morphine Sulfate (Morphine Sulfate) 2 mg IVPUSH Q4H PRN PRN Reason: PAIN LEVEL 7 - 10 Last Admin: 01/14/19 13:30 Dose: 2 mg Oxycodone HCl (Roxicodone -) 5 mg PO Q4H PRN PRN Reason: PAIN LEVEL 4 - 6 Pregabalin (Lyrica -) 150 mg PO TID [facility] Last Admin: 01/14/19 13:30 Dose: 150 mg Rivaroxaban (Xarelto) 15 mg PO DAILY@1800 [facility] Last Admin: 01/13/19 18:04 Dose: 15 mg - Objective Vital Signs: Vital Signs Temperature 98.2 F 01/14/19 14:52 Pulse Rate 90 01/14/19 14:52 Respiratory Rate 20 01/14/19 14:52 Blood Pressure 127/76 01/14/19 14:52 O2 Sat by Pulse Oximetry (%) 98 01/14/19 09:00 Constitutional: Yes: No Distress, Calm Eyes: Yes: Conjunctiva Clear HENT: Yes: Atraumatic Cardiovascular: Yes: Regular Rate and Rhythm Respiratory: Yes: Regular, CTA Bilaterally Gastrointestinal: Yes: Normal Bowel Sounds, Soft, Tenderness (diffuse) Musculoskeletal: Yes: Muscle Weakness Extremities: Yes: Other (L AKA) Edema: No Neurological: Yes: Alert, Oriented Psychiatric: Yes: Alert, Oriented Labs: CBC, BMP 01/14/19 06:00 01/14/19 06:00 Problem List - Problems (1) Lactic acidosis Assessment/Plan: -LA 1.0 -resolved Code(s): E87.2 - ACIDOSIS (2) Right foot pain Assessment/Plan: -Vascular on board -US of RLE neg for DVT -CTA results reviewed -pending result Arterial US of RLE -pain management Code(s): M79.671 - PAIN IN RIGHT FOOT (3) CAD (coronary artery disease) Assessment/Plan: -Lipid panel shows LDL 83 -Atorvastatin 40mg HS, Xarelto, Aspirin Code(s): I25.10 - ATHSCL HEART DISEASE OF [place] CORONARY ARTERY W/O ANG PCTRS Qualifiers: Coronary Disease-Associated Artery/Lesion type: coronary artery bypass graft Associated angina: without angina pectoris (4) Chronic kidney disease (CKD) Assessment/Plan: -BUN/Cr 22/1.2 -continue to monitor renal function daily -Abd US shows left renal simple cyst, echogenic right kidney with a slightly irregular contour Code(s): N18.9 - CHRONIC KIDNEY DISEASE, UNSPECIFIED (5) Diabetes mellitus Assessment/Plan: -BGM ACHS -Levemir + ISS -HgA1c 8.8% -diabetic diet Code(s): E11.9 - TYPE 2 DIABETES MELLITUS WITHOUT COMPLICATIONS (6) Abdominal pain Assessment/Plan: -GI consult -Abdominal US shows slightly coarse echotexture of liver, rule out mild fatty infiltration vs hepatocellular disease Code(s): R10.9 - UNSPECIFIED ABDOMINAL PAIN
[2019-01-14] MEDS: RIVAROXABAN 15 MG TABLET PO SCH (16:59)
--- NOTE | 2019-01-14 20:08 | CON.GI ---
Consult Consult Specialty:: Gastroenterology Referred by:: Etelvina Houston NP Reason for Consultation:: Abdominal pain - History of Present Illness Chief Complaint: Diffuse bloating abdominal pain with belching and flatulence History of Present Illness: 44F is admitted with RLE pain radiating upward. Already had angiogram and was seen by Dr Neil and has no vascular crisis. Today she developed a diffuse bloating pain that is somewhat relieved by belching and passing flatus. She denies nausea or vomiting and is able to eat. She has been having multiple BMs but feels as though she can't empty out and is left with the sensation of incomplete evaluation. Her father of colon cancer at age 85 . She last had a colonoscopy at [facility] in 2016 which she describes as having been normal. She has never had an EGD. She denies GI bleeding. She denies dysphagia, early satiety or weight loss. - History Source History Provided By: Patient Limitations to Obtaining History: No Limitations - Past Medical History [employer]: Yes: CVA (in 2014 -. holter then sg= rare APCs, TTE and TAWANNA unremarkable, describes left visual field cut), Other (neuropathy) Cardio/Vascular: Yes: CAD (cath in 11/12 at [facility]: LCx FLY, 80% small D1 -. med managed. had subsequent stent at [facility]), HTN, Hyperlipdemia, [place] (at [facility] 2014 ) Pulmonary: Yes: Asthma, COPD Gastrointestinal: Yes: GERD Hepatobiliary: Yes: Cholelithiasis (s/p GB surgery) Renal/: Yes: Renal Inusuff (diabetic nephropathy) ...LMP: 07/21/16 Heme/Onc: Yes: Other (protein S deficiency ?) Musculoskeletal: Yes: Osteoarthritis, Other (herniated disc) Endocrine: Yes: Diabetes Mellitus (for over 20 yr s-. insulin for over 10 yrs) - Past Surgical History Past Surgical History: Yes: Amputation (left AKA 02/18), Bypass (iliac, ileofemoral bypasses and subsequent stents and thrombectomies ), Cholecystectomy (laparoscopic), Colonoscopy, (x 4), Hernia Repair ( incarcerated hernia with resection of 32cm of small bowel in 04/14 with meash repair of ventrak hernia. had subsequent infected mesh removal 09/15.), Stent ( coronary, iliac and femoral stents), Tubal Ligation Additional Surgical History: LLE fracture with hardware ORIF - Alcohol/Substance Use Hx Alcohol Use: No History of Substance Use: reports: None - Smoking History Smoking history: Former smoker Have you smoked in the past 12 months: No Aproximately how many cigarettes per day: 5 If you are a former smoker, when did you quit?: 2012 - Social History Usual Living Arrangement: With Child ADL: Family Assistance Occupation: disabled Place of : [facility] History of Recent Travel: No Home Medications - Allergies Allergies/Adverse Reactions: Allergies Allergy/AdvReac Type Severity Reaction Status Date / Time No Known Drug Allergies Allergy Verified 01/10/19 18:17 - Home Medications Home Medications: Ambulatory Orders Budesonide [Pulmicort 0.25 mg Nebulizer -] 1 neb PO BID 11/21/15 Albuterol 0.083% Nebulizer Carolyn [Ventolin 0.083% Nebulizer Soln -] 1 amp NEB Q6HPO amp 12/15/15 Insulin (Novolog) [Novolog -] 0 units SQ ASDIR 04/15/16 Pregabalin [Lyrica -] 150 mg PO TID 04/15/16 Acetaminophen [Tylenol .Regular Strength -] 650 mg PO Q6H PRN #0 tablet Atorvastatin Ca [Lipitor] 20 mg PO HS #30 tablet 11/22/16 Docusate Sodium [Colace -] 100 mg PO BID #60 11/22/16 Iron Polysaccharides [Niferex-150 -] 150 mg PO DAILY #30 11/22/16 Meclizine HCl [Antivert -] 25 mg PO TID PRN #90 tablet 11/22/16 oxyCODONE HCL [Roxicodone -] 10 mg PO Q6H PRN #120 tablet MDD 4 11/22/16 Aspirin Coated [Ecotrin -] 81 mg PO DAILY tablet.ec 01/25/18 Insulin (Levemir) [Levemir Vial] 30 units SQ AM ml 01/25/18 Lidocaine 5% Patch [Lidoderm -] 1 patch TP DAILY patch 01/25/18 Nitroglycerin Patch [Nitro-Dur] 0.1 mg TD DAILY #30 patch.td24 01/25/18 Cyclobenzaprine HCl [Flexeril -] 1 tab PO BID PRN 06/28/18 Rivaroxaban [Xarelto -] 1 tab PO DAILY 06/28/18 LORazepam [Ativan] 1 mg PO BID MDD 2 01/10/19 Polyethylene Glycol 3350 [Miralax 119 gm Btl -] 17 gm PO DAILY PRN 01/10/19 Family Disease History - Family Disease History Family Disease History: Diabetes: Mother ( in her late 50s DDM complications ), Sister ( in her 40s of substance abuse), CA: Father ( colon cancer age 85), Other: Father, Brother ( multiple drug OD) Review of Systems - Review of Systems Constitutional: reports: Malaise, Weakness Eyes: reports: No Symptoms HENT: reports: No Symptoms Neck: reports: No Symptoms Cardiovascular: reports: Shortness of Breath Respiratory: reports: Exercise Intolerance, Wheezing Gastrointestinal: reports: Abdominal Pain, Bloating Genitourinary: reports: No Symptoms Musculoskeletal: reports: Back Pain, Extremity Pain Physical Exam-GI Vital Signs: Vital Signs Temperature 98.1 F 01/14/19 18:00 Pulse Rate 81 01/14/19 18:00 Respiratory Rate 20 01/14/19 18:00 Blood Pressure 124/71 01/14/19 18:00 O2 Sat by Pulse Oximetry (%) 98 01/14/19 09:00 CBC,CMP WBC 9.1 K/mm3 (4.0-10.0) 01/14/19 06:00 RBC 3.99 M/mm3 (3.60-5.2) 01/14/19 06:00 Hgb 11.1 GM/dL (10.7-15.3) 01/14/19 06:00 Hct 34.5 % (32.4-45.2) 01/14/19 06:00 MCV 86.5 fl (80-96) 01/14/19 06:00 MCH 27.8 pg (25.7-33.7) 01/14/19 06:00 MCHC 32.1 g/dl (32.0-36.0) 01/14/19 06:00 RDW 15.3 % (11.6-15.6) 01/14/19 06:00 Plt Count 296 K/MM3 (134-434) 01/14/19 06:00 MPV 10.2 fl (7.5-11.1) 01/14/19 06:00 Absolute Neuts (auto) 6.2 K/mm3 (1.5-8.0) 01/13/19 05:15 Neutrophils % 60.5 % (42.8-82.8) 01/13/19 05:15 Lymphocytes % 24.1 % (8-40) D 01/13/19 05:15 Monocytes % 5.5 % (3.8-10.2) 01/13/19 05:15 Eosinophils % 9.1 % (0-4.5) H 01/13/19 05:15 Basophils % 0.8 % (0-2.0) 01/13/19 05:15 Nucleated RBC % 0 % (0-0) 01/13/19 05:15 Sodium 138 mmol/L (136-145) 01/14/19 06:00 Potassium 4.3 mmol/L (3.5-5.1) 01/14/19 06:00 Chloride 108 mmol/L (98-107) H 01/14/19 06:00 Carbon Dioxide 26 mmol/L (21-32) 01/14/19 06:00 Anion Gap 4 MMOL/L (8-16) L 01/14/19 06:00 BUN 22 mg/dL (7-18) H 01/14/19 06:00 Creatinine 1.2 mg/dL (0.55-1.3) 01/14/19 06:00 Est GFR (CKD-EPI)AfAm 62.76 01/14/19 06:00 Est GFR (CKD-EPI)NonAf 54.15 01/14/19 06:00 POC Glucometer 138 UNITS (80-120) 01/14/19 16:46 Random Glucose 128 mg/dL (74-106) H 01/14/19 06:00 Hemoglobin A1c % 8.8 % (4.2-6.3) H 01/11/19 06:35 Lactic Acid 1.0 mmol/L (0.4-2.0) 01/11/19 06:35 Calcium 8.3 mg/dL (8.5-10.1) L 01/14/19 06:00 Total Bilirubin 0.1 mg/dL (0.2-1) L 01/14/19 06:00 AST 8 U/L (15-37) L 01/14/19 06:00 ALT 7 U/L (13-61) L 01/14/19 06:00 Alkaline Phosphatase 133 U/L (45-117) H 01/14/19 06:00 Creatine Kinase 39 U/L (26-192) 01/13/19 05:15 Total Protein 6.2 g/dl (6.4-8.2) L 01/14/19 06:00 Albumin 2.2 g/dl (3.4-5.0) L 01/14/19 06:00 Triglycerides 140 mg/dL (0-150) 01/13/19 05:15 Cholesterol 136 mg/dL (50-200) 01/13/19 05:15 Total LDL Cholesterol 83 mg/dL (5-100) 01/13/19 05:15 HDL Cholesterol 35 mg/dL (40-60) L 01/13/19 05:15 Vitamin B12 212 pg/ml (193-986) 01/13/19 05:15 Serum , Qual Negative 01/10/19 20:32 Current Medications Generic Name Dose Route Start Last Admin Trade Name Freq PRN Reason Stop Dose Admin Acetaminophen 650 mg 01/12/19 19:09 Tylenol - PO Q4H PRN PAIN LEVEL 1 - 3/TEMP OVER 100 Al Hydroxide/Mg Hydroxide 30 ml 01/12/19 13:50 01/12/19 14:21 Mylanta Oral Suspension - PO 30 ml Q6H PRN Administration DYSPEPSIA Albuterol Sulfate 1 amp 01/11/19 00:17 Ventolin 0.083% Nebulizer Soln - NEB Q6H PRN WHEEZING Aspirin 81 mg 01/11/19 10:00 01/14/19 09:47 Ecotrin - PO 81 mg DAILY MICK Administration Atorvastatin Calcium 40 mg 01/13/19 10:22 01/13/19 22:16 Lipitor - PO 40 mg HS MICK Administration Cyclobenzaprine HCl 10 mg 01/11/19 00:47 01/13/19 09:35 Flexeril - PO 10 mg BID PRN Administration MUSCLE SPASMS Docusate Sodium 100 mg 01/11/19 10:00 01/14/19 09:47 Colace - PO Not Given BID [facility] Insulin Aspart 1 vial 01/11/19 07:00 01/14/19 16:46 Novolog Vial Sliding Scale - SQ Not Given ACHS [facility] Protocol Insulin Detemir 30 units 01/11/19 07:00 01/14/19 09:47 Levemir Vial SQ Not Given AM [facility] Lidocaine 1 patch 01/11/19 10:00 01/14/19 09:47 Lidoderm Patch - TP 1 patch DAILY MICK Administration Meclizine HCl 25 mg 01/11/19 00:17 01/13/19 09:35 Antivert - PO 25 mg TID PRN Administration VERTIGO Miscellaneous 1 each 01/11/19 22:00 01/13/19 22:16 Lidoderm Patch Removal MC 1 each DAILY@2200 MICK Administration Morphine Sulfate 2 mg 01/12/19 19:09 01/14/19 17:44 Morphine Sulfate IVPUSH 2 mg Q4H PRN Administration PAIN LEVEL 7 - 10 Oxycodone HCl 5 mg 01/12/19 19:08 Roxicodone - PO Q4H PRN PAIN LEVEL 4 - 6 Pregabalin 150 mg 01/11/19 06:00 01/14/19 13:30 Lyrica - PO 150 mg TID MICK Administration Rivaroxaban 15 mg 01/11/19 10:57 01/14/19 16:59 Xarelto PO 15 mg DAILY@1800 MICK Administration Constitutional: Yes: Calm Eyes: Yes: Conjunctiva Clear HENT: Yes: Normocephalic Neck: Yes: Supple Cardiovascular: Yes: Regular Rate and Rhythm Respiratory: Yes: CTA Bilaterally Gastrointestinal Inspection: Yes: Hernia (nontender right suprapubic incisional hernia), Scars (vertical left paramedian and deformed vertical rigght suprapubic and healed Pfannensteil incisions) ...Auscultate: Yes: Normoactive Bowel Sounds ...Palpate: Yes: Soft, Other (nontender dstended bowel loops) ...Percussion: Yes: Tympanitic ...Rectal Exam: Yes: Guaiac Negative, Hemorrhoids/External Extremities: Yes: Other (left AKA) Edema: No Neurological: Yes: Alert, Oriented Labs: CBC, BMP 01/14/19 06:00 01/14/19 06:00 Problem List - Problems (1) Abdominal pain Assessment/Plan: I suspect that Desire has abdominal bloating pain and frequent stools due to fecal impaction causing overflow incontinence/frequent loose stools in the setting of constipation due to autonomic diabetic neuropathy Code(s): R10.9 - UNSPECIFIED ABDOMINAL PAIN Qualifiers: Abdominal location: generalized Qualified Code(s): R10.84 - Generalized abdominal pain (2) Constipation by delayed colonic transit Code(s): K59.01 - SLOW TRANSIT CONSTIPATION (3) Incisional hernia Code(s): K43.2 - INCISIONAL HERNIA WITHOUT OBSTRUCTION OR GANGRENE (4) Acute kidney injury superimposed on chronic kidney disease Code(s): N17.9 - ACUTE KIDNEY FAILURE, UNSPECIFIED; N18.9 - CHRONIC KIDNEY DISEASE, UNSPECIFIED (5) Asthma Code(s): J45.909 - UNSPECIFIED ASTHMA, UNCOMPLICATED (6) CAD (coronary artery disease) Code(s): I25.10 - ATHSCL HEART DISEASE OF [place] CORONARY ARTERY W/O ANG PCTRS Qualifiers: Coronary Disease-Associated Artery/Lesion type: coronary artery bypass graft Associated angina: without angina pectoris (7) Cerebrovascular accident Code(s): I63.9 - CEREBRAL INFARCTION, UNSPECIFIED (8) Chronic kidney disease (CKD) Code(s): N18.9 - CHRONIC KIDNEY DISEASE, UNSPECIFIED (9) Diabetes mellitus Code(s): E11.9 - TYPE 2 DIABETES MELLITUS WITHOUT COMPLICATIONS (10) Diabetic neuropathy, painful Code(s): E11.40 - TYPE 2 DIABETES MELLITUS WITH DIABETIC NEUROPATHY, UNSP (11) HLD (hyperlipidemia) Code(s): E78.5 - HYPERLIPIDEMIA, UNSPECIFIED Qualifiers: Hyperlipidemia type: pure hypercholesterolemia (12) Hypercoagulable state Code(s): D68.59 - OTHER PRIMARY THROMBOPHILIA (13) Hypertension Code(s): I10 - ESSENTIAL (PRIMARY) HYPERTENSION Qualifiers: Hypertension type: essential hypertension Qualified Code(s): I10 - Essential (primary) hypertension (14) Occlusion of bypass graft Code(s): T82.898A - OTH COMPLICATION OF VASCULAR PROSTH DEV/GRFT, INIT Qualifiers: Encounter type: sequela Qualified Code(s): T82.898S - Other specified complication of vascular prosthetic devices, implants and grafts, sequela (15) Occlusion of graft of lower extremity Code(s): T82.898A - OTH COMPLICATION OF VASCULAR PROSTH DEV/GRFT, INIT Qualifiers: Encounter type: sequela Qualified Code(s): T82.898S - Other specified complication of vascular prosthetic devices, implants and grafts, sequela (16) Peripheral arterial disease Code(s): I73.9 - PERIPHERAL VASCULAR DISEASE, UNSPECIFIED (17) Peripheral neuropathy Code(s): G62.9 - POLYNEUROPATHY, UNSPECIFIED Qualifiers: Peripheral neuropathy type: mononeuropathy, other Qualified Code(s): G58.8 - Other specified mononeuropathies (18) Renal insufficiency Code(s): N28.9 - DISORDER OF KIDNEY AND URETER, UNSPECIFIED Assessment/Plan Impression: Abdominal bloating pain and frequent stools due to fecal impaction causing overflow incontinence/frequent loose stools in the setting of constipation due to autonomic diabetic neuropathy FH colon cancer Plan: Miralax TID x 3 days to lavage and disempact then once daily Advised colonoscopy in 2020
[2019-01-14] MEDS: LIDOCAINE PATCH REMOVAL MC SCH (21:51)
[2019-01-14] MEDS: ATORVASTATIN CA 40 MG TABLET (FP) PO SCH (21:51)
[2019-01-15] MEDS: PREGABALIN 75 MG CAPSULE PO SCH ×3 (06:45→21:42)
[2019-01-15] MEDS: INSULIN SLIDING SCALE (NOVOLOG) 1 VIAL SQ SCH ×4 (06:46→21:47)
[2019-01-15] MEDS: INSULIN (LEVEMIR) 100 UNITS/ML UNITS SQ SCH (06:46)
[2019-01-15 07:12] LABS: HEMATOCRIT 33.6 % (32.4-45.2); HEMOGLOBIN 10.7 GM/dL (10.7-15.3); MCH 27.6 pg (25.7-33.7); MCHC 31.9 g/dl (32.0-36.0); MEAN CELL VOLUME 86.6 fl (80-96); MEAN PLT VOLUME 10.1 fl (7.5-11.1); PLATELET COUNT 329 K/MM3 (134-434); RBC 3.88 M/mm3 (3.60-5.2); RDW 15.2 % (11.6-15.6); WHITE BLOOD COUNT 8.7 K/mm3 (4.0-10.0)
[2019-01-15 07:45] LABS: ALBUMIN 2.3 g/dl (3.4-5.0); ALK PHOS 129 U/L (45-117); ANION GAP 8 MMOL/L (8-16); BILIRUBIN,TOTAL 0.2 mg/dL (0.2-1); BLOOD UREA NITROGEN 23 mg/dL (7-18); CALCIUM 8.4 mg/dL (8.5-10.1); CHLORIDE 109 mmol/L (98-107); CO2 24 mmol/L (21-32); CREATININE 1.3 mg/dL (0.55-1.3); GLUCOSE,RANDOM 171 mg/dL (74-106); POTASSIUM 4.4 mmol/L (3.5-5.1); SGOT/AST 6 U/L (15-37); SGPT/ALT < 6 U/L (13-61); SODIUM 140 mmol/L (136-145); TOT PROT 6.3 g/dl (6.4-8.2)
[2019-01-15] MEDS: MORPHINE SULFATE 2 MG/ML VIAL IVPUSH PRN ×2 (08:44→14:03)
[2019-01-15] MEDS: ASPIRIN COATED 81 MG TABLET.EC PO SCH (10:14)
[2019-01-15] MEDS: CYCLOBENZAPRINE HCL 10 MG TABLET (FP) PO PRN (10:14)
[2019-01-15] MEDS: MAG HYDROX/AL HYDROX/SIMETH 30 ML UNIT-DOSE CUP PO PRN (10:14)
[2019-01-15] MEDS: DOCUSATE SODIUM 100 MG CAPSULE (FP) PO SCH ×2 (10:14→21:43)
[2019-01-15] MEDS: LIDOCAINE 5% TOPICAL PATCH TP SCH (10:15)
[2019-01-15] MEDS ORDERED: INSULIN (NOVOLOG) ASPART 100 UNITS/ML 10ML VIAL ONE (11:11)
[2019-01-15] MEDS: MECLIZINE HCL 25 MG TABLET (FP) PO PRN (14:03)
[2019-01-15] MEDS: POLYETHYLENE GLYCOL 3350 119 GM BTL PO SCH ×2 (14:07→21:43)
--- NOTE | 2019-01-15 15:44 | PN ---
Progress Note, Physician Chief Complaint: R foot pain History of Present Illness: Previous notes and events reviewed awake and alert NAD complain of R foot pain - Current Medication List Current Medications: Active Medications Acetaminophen (Tylenol -) 650 mg PO Q4H PRN PRN Reason: PAIN LEVEL 1 - 3/TEMP OVER 100 Al Hydroxide/Mg Hydroxide (Mylanta Oral Suspension -) 30 ml PO Q6H PRN PRN Reason: DYSPEPSIA Last Admin: 01/15/19 10:14 Dose: 30 ml Albuterol Sulfate (Ventolin 0.083% Nebulizer Soln -) 1 amp NEB Q6H PRN PRN Reason: WHEEZING Aspirin (Ecotrin -) 81 mg PO DAILY [facility] Last Admin: 01/15/19 10:14 Dose: 81 mg Atorvastatin Calcium (Lipitor -) 40 mg PO HS [facility] Last Admin: 01/14/19 21:51 Dose: 40 mg Cyclobenzaprine HCl (Flexeril -) 10 mg PO BID PRN PRN Reason: MUSCLE SPASMS Last Admin: 01/15/19 10:14 Dose: 10 mg Docusate Sodium (Colace -) 100 mg PO BID [facility] Last Admin: 01/15/19 10:14 Dose: 100 mg Insulin Aspart (Novolog Vial Sliding Scale -) 1 vial SQ ACHS [facility]; Protocol Last Admin: 01/15/19 11:11 Dose: 4 unit Insulin Detemir (Levemir Vial) 30 units SQ AM [facility] Last Admin: 01/15/19 06:46 Dose: 30 units Lidocaine (Lidoderm Patch -) 1 patch TP DAILY [facility] Last Admin: 01/15/19 10:15 Dose: 1 patch Meclizine HCl (Antivert -) 25 mg PO TID PRN PRN Reason: VERTIGO Last Admin: 01/15/19 14:03 Dose: 25 mg Miscellaneous (Lidoderm Patch Removal) 1 each MC DAILY@2200 [facility] Last Admin: 01/14/19 21:51 Dose: 1 each Morphine Sulfate (Morphine Sulfate) 2 mg IVPUSH Q4H PRN PRN Reason: PAIN LEVEL 7 - 10 Last Admin: 01/15/19 14:03 Dose: 2 mg Oxycodone HCl (Roxicodone -) 5 mg PO Q4H PRN PRN Reason: PAIN LEVEL 4 - 6 Polyethylene Glycol (Miralax (For Daily Use) -) 17 gm PO TID [facility] Stop: 01/18/19 06:59 Last Admin: 01/15/19 14:07 Dose: 17 gm Pregabalin (Lyrica -) 150 mg PO TID [facility] Last Admin: 01/15/19 14:03 Dose: 150 mg Rivaroxaban (Xarelto) 15 mg PO DAILY@1800 [facility] Last Admin: 01/14/19 16:59 Dose: 15 mg - Objective Vital Signs: Vital Signs Temperature 97.5 F L 01/15/19 15:19 Pulse Rate 90 01/15/19 15:19 Respiratory Rate 20 01/15/19 15:19 Blood Pressure 116/74 01/15/19 15:19 O2 Sat by Pulse Oximetry (%) 98 01/14/19 21:00 Constitutional: Yes: No Distress, Calm Eyes: Yes: Conjunctiva Clear HENT: Yes: Atraumatic Cardiovascular: Yes: Regular Rate and Rhythm Respiratory: Yes: Regular, CTA Bilaterally Gastrointestinal: Yes: Normal Bowel Sounds, Soft, Tenderness (diffuse) Musculoskeletal: Yes: Muscle Weakness Extremities: Yes: Other (L AKA) Edema: No Neurological: Yes: Alert, Oriented Psychiatric: Yes: Alert, Oriented Labs: CBC, BMP 01/15/19 06:30 01/15/19 06:30 Problem List - Problems (1) Lactic acidosis Assessment/Plan: -LA 1.0 -resolved Code(s): E87.2 - ACIDOSIS (2) Right foot pain Assessment/Plan: -Vascular on board--no critical ischemia -US of RLE neg for DVT -CTA results reviewed -pending result Arterial US of RLE -pain management -ortho consult Code(s): M79.671 - PAIN IN RIGHT FOOT (3) CAD (coronary artery disease) Assessment/Plan: -Lipid panel shows LDL 83 -Atorvastatin 40mg HS, Xarelto, Aspirin Code(s): I25.10 - ATHSCL HEART DISEASE OF [place] CORONARY ARTERY W/O ANG PCTRS Qualifiers: Coronary Disease-Associated Artery/Lesion type: coronary artery bypass graft Associated angina: without angina pectoris (4) Chronic kidney disease (CKD) Assessment/Plan: -BUN/Cr 23/1.2 -continue to monitor renal function daily -Abd US shows left renal simple cyst, echogenic right kidney with a slightly irregular contour Code(s): N18.9 - CHRONIC KIDNEY DISEASE, UNSPECIFIED (5) Diabetes mellitus Assessment/Plan: -BGM ACHS -Levemir + ISS -HgA1c 8.8% -diabetic diet Code(s): E11.9 - TYPE 2 DIABETES MELLITUS WITHOUT COMPLICATIONS (6) Abdominal pain Assessment/Plan: -GI on board -Abdominal US shows slightly coarse echotexture of liver, rule out mild fatty infiltration vs hepatocellular disease Code(s): R10.9 - UNSPECIFIED ABDOMINAL PAIN Qualifiers: Abdominal location: generalized Qualified Code(s): R10.84 - Generalized abdominal pain Assessment/Plan see problem list dvt ppx
[2019-01-15] MEDS ORDERED: LORazepam 0.5 MG TABLET PO ONE (17:45)
[2019-01-15] MEDS: RIVAROXABAN 15 MG TABLET PO SCH (18:02)
[2019-01-15] MEDS: oxyCODONE HCL 5 MG TABLET PO PRN (20:14)
[2019-01-15] MEDS ORDERED: PT OWN MED DRAWER 7, Y5N ONE (21:11)
[2019-01-15] MEDS: ATORVASTATIN CA 40 MG TABLET (FP) PO SCH (21:42)
[2019-01-15] MEDS: LIDOCAINE PATCH REMOVAL MC SCH (21:50)
[2019-01-16] MEDS: oxyCODONE HCL 5 MG TABLET PO PRN ×2 (02:00→09:08)
[2019-01-16] MEDS: PREGABALIN 75 MG CAPSULE PO SCH ×2 (06:29→14:40)
[2019-01-16] MEDS: POLYETHYLENE GLYCOL 3350 119 GM BTL PO SCH ×2 (06:30→14:23)
[2019-01-16] MEDS: INSULIN (LEVEMIR) 100 UNITS/ML UNITS SQ SCH (06:30)
[2019-01-16] MEDS: INSULIN SLIDING SCALE (NOVOLOG) 1 VIAL SQ SCH ×3 (06:36→17:24)
[2019-01-16] MEDS ORDERED: PT OWN MED DRAWER 7, Y5N ONE (07:00)
[2019-01-16 07:54] LABS: HEMATOCRIT 34.5 % (32.4-45.2); HEMOGLOBIN 11.1 GM/dL (10.7-15.3); MCH 27.7 pg (25.7-33.7); MCHC 32.2 g/dl (32.0-36.0); MEAN CELL VOLUME 85.9 fl (80-96); PLATELET COUNT 338 K/MM3 (134-434); RBC 4.01 M/mm3 (3.60-5.2); RDW 15.4 % (11.6-15.6); WHITE BLOOD COUNT 9.1 K/mm3 (4.0-10.0)
[2019-01-16 08:34] LABS: ALBUMIN 2.5 g/dl (3.4-5.0); BILIRUBIN,TOTAL 0.1 mg/dL (0.2-1); CALCIUM 9.1 mg/dL (8.5-10.1); CREATININE 1.3 mg/dL (0.55-1.3); POTASSIUM 4.6 mmol/L (3.5-5.1); TOT PROT 6.8 g/dl (6.4-8.2)
[2019-01-16] MEDS: LIDOCAINE 5% TOPICAL PATCH TP SCH (09:08)
[2019-01-16] MEDS: ASPIRIN COATED 81 MG TABLET.EC PO SCH (09:08)
[2019-01-16] MEDS: DOCUSATE SODIUM 100 MG CAPSULE (FP) PO SCH (09:08)
--- NOTE | 2019-01-16 10:33 | PN ---
Progress Note (short form) - Note Progress Note: Pt seen and examined. 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 Denies any recent h/o trauma, or gout. The patient states that this AM she is feeling noticeably better, but not completely better. She denies recent h/o erythema, significant swelling or any signs of infection. Xrays N/A none done US Neg for DVT or significant vascular claudication PE The patient's right foot looks good this AM No swelling, nl Wrinkle Test, no erythema Is NVI, good sensation throughout, and no changes in her baseline. She has excellent ROM without pain of the right ankle in PF, DF, Inv, Ever. Strength is 5/5 throughout, resistance is pain free The only physical finding today is that she is very tender (8/10) over the course of the posterior tibial tendon, posterior and proximal to the medial malleolus Imp Overall the foot and ankle look quite good, nothing overly concerning, she has posterior tibial tendinitis, likely from putting all of her weight on her right foot s/p L AKA. Rec Ice often Ankle brace/simple ankle sleeve PRN Activity modification, she uses a walker anyway Maintain ROM, she does not need formal P.T. She can't take NSAIDS Cortisone injection as an out pt only if it doesn't improve over the next 2-3 weeks She can be DC'd from an ortho POV
[2019-01-16] MEDS ORDERED: INSULIN (NOVOLOG) ASPART 100 UNITS/ML 10ML VIAL ONE (11:41)
--- NOTE | 2019-01-16 14:36 | DS ---
Physical Examination Vital Signs: Vital Signs Temperature 98.0 F 01/16/19 09:00 Pulse Rate 83 01/16/19 09:00 Respiratory Rate 20 01/16/19 09:00 Blood Pressure 114/68 01/16/19 09:00 O2 Sat by Pulse Oximetry (%) 99 01/15/19 21:00 Constitutional: Yes: No Distress, Calm Eyes: Yes: Conjunctiva Clear HENT: Yes: Atraumatic Cardiovascular: Yes: Regular Rate and Rhythm Respiratory: Yes: Regular, CTA Bilaterally Gastrointestinal: Yes: Normal Bowel Sounds, Soft Musculoskeletal: Yes: Muscle Weakness Extremities: Yes: Other (L AKA) Edema: No Neurological: Yes: Alert, Oriented Psychiatric: Yes: Alert, Oriented Labs: CBC, BMP 01/16/19 07:00 01/16/19 07:00 Discharge Summary Reason For Visit: RIGHT FOOT PAIN Current Active Problems Abdominal pain (Acute) Constipation by delayed colonic transit (Acute) Incisional hernia (Acute) Lactic acidosis (Acute) Right foot pain (Acute) Hospital Course: see progress notes Laboratory Tests 01/10/19 01/10/19 01/10/19 19:12 19:12 20:32 WBC 10.9 H RBC 4.34 Hgb 11.9 Hct 38.6 D MCV 88.9 MCH 27.4 D MCHC 30.9 L RDW 16.0 H Plt Count 270 D MPV 10.2 D Absolute Neuts (auto) 5.5 Neutrophils % 50.6 D Lymphocytes % 37.3 D Monocytes % 4.2 Eosinophils % 7.2 H D Basophils % 0.7 Nucleated RBC % 0 Sodium 140 Potassium 3.7 Chloride 110 H Carbon Dioxide 22 Anion Gap 8 BUN 11 Creatinine 1.4 H Est GFR (CKD-EPI)AfAm 52.09 Est GFR (CKD-EPI)NonAf 44.95 POC Glucometer Random Glucose 96 Hemoglobin A1c % Lactic Acid Calcium 7.8 L Total Bilirubin 0.1 L AST 14 L ALT 9 L Alkaline Phosphatase 180 H Creatine Kinase Total Protein 6.9 Albumin 2.7 L Triglycerides Cholesterol Total LDL Cholesterol HDL Cholesterol Vitamin B12 Serum , Qual Negative 01/11/19 01/11/19 01/11/19 00:30 06:13 06:35 WBC 9.6 RBC 4.01 Hgb 11.2 Hct 35.0 MCV 87.2 MCH 27.9 MCHC 32.0 RDW 15.9 H Plt Count 284 MPV 9.4 Absolute Neuts (auto) Neutrophils % Lymphocytes % Monocytes % Eosinophils % Basophils % Nucleated RBC % Sodium Potassium Chloride Carbon Dioxide Anion Gap BUN Creatinine Est GFR (CKD-EPI)AfAm Est GFR (CKD-EPI)NonAf POC Glucometer 115 Random Glucose Hemoglobin A1c % Lactic Acid 2.4 H* Calcium Total Bilirubin AST ALT Alkaline Phosphatase Creatine Kinase Total Protein Albumin Triglycerides Cholesterol Total LDL Cholesterol HDL Cholesterol Vitamin B12 Serum , Qual 01/11/19 01/11/19 01/11/19 06:35 06:35 06:35 WBC RBC Hgb Hct MCV MCH MCHC RDW Plt Count MPV Absolute Neuts (auto) Neutrophils % Lymphocytes % Monocytes % Eosinophils % Basophils % Nucleated RBC % Sodium 143 Potassium 3.7 Chloride 111 H Carbon Dioxide 25 Anion Gap 7 L BUN 12 Creatinine 1.6 H Est GFR (CKD-EPI)AfAm 44.33 Est GFR (CKD-EPI)NonAf 38.25 POC Glucometer Random Glucose 119 H Hemoglobin A1c % 8.8 H Lactic Acid 1.0 Calcium 8.1 L Total Bilirubin AST ALT Alkaline Phosphatase Creatine Kinase Total Protein Albumin Triglycerides Cholesterol Total LDL Cholesterol HDL Cholesterol Vitamin B12 Serum , Qual 01/11/19 01/11/19 01/11/19 11:32 16:18 21:57 WBC RBC Hgb Hct MCV MCH MCHC RDW Plt Count MPV Absolute Neuts (auto) Neutrophils % Lymphocytes % Monocytes % Eosinophils % Basophils % Nucleated RBC % Sodium Potassium Chloride Carbon Dioxide Anion Gap BUN Creatinine Est GFR (CKD-EPI)AfAm Est GFR (CKD-EPI)NonAf POC Glucometer 129 56 57 Random Glucose Hemoglobin A1c % Lactic Acid Calcium Total Bilirubin AST ALT Alkaline Phosphatase Creatine Kinase Total Protein Albumin Triglycerides Cholesterol Total LDL Cholesterol HDL Cholesterol Vitamin B12 Serum , Qual 01/12/19 01/12/19 01/12/19 02:32 06:21 11:50 WBC RBC Hgb Hct MCV MCH MCHC RDW Plt Count MPV Absolute Neuts (auto) Neutrophils % Lymphocytes % Monocytes % Eosinophils % Basophils % Nucleated RBC % Sodium Potassium Chloride Carbon Dioxide Anion Gap BUN Creatinine Est GFR (CKD-EPI)AfAm Est GFR (CKD-EPI)NonAf POC Glucometer 103 73 128 Random Glucose Hemoglobin A1c % Lactic Acid Calcium Total Bilirubin AST ALT Alkaline Phosphatase Creatine Kinase Total Protein Albumin Triglycerides Cholesterol Total LDL Cholesterol HDL Cholesterol Vitamin B12 Serum , Qual 01/12/19 01/12/19 01/13/19 17:03 21:02 05:15 WBC RBC Hgb Hct MCV MCH MCHC RDW Plt Count MPV Absolute Neuts (auto) Neutrophils % Lymphocytes % Monocytes % Eosinophils % Basophils % Nucleated RBC % Sodium 141 Potassium 3.7 Chloride 111 H Carbon Dioxide 24 Anion Gap 6 L BUN 18 Creatinine 1.2 Est GFR (CKD-EPI)AfAm 62.76 Est GFR (CKD-EPI)NonAf 54.15 POC Glucometer 137 153 Random Glucose 155 H Hemoglobin A1c % Lactic Acid Calcium 7.9 L Total Bilirubin 0.1 L AST 5 L ALT 7 L Alkaline Phosphatase 139 H Creatine Kinase 39 Total Protein 5.9 L Albumin 2.2 L Triglycerides 140 Cholesterol 136 Total LDL Cholesterol 83 HDL Cholesterol 35 L Vitamin B12 212 Serum , Qual 01/13/19 01/13/19 01/13/19 05:15 06:23 11:34 WBC 10.2 H RBC 3.86 Hgb 10.7 Hct 33.1 MCV 85.9 MCH 27.6 MCHC 32.2 RDW 15.8 H Plt Count 277 MPV 9.5 Absolute Neuts (auto) 6.2 Neutrophils % 60.5 Lymphocytes % 24.1 D Monocytes % 5.5 Eosinophils % 9.1 H Basophils % 0.8 Nucleated RBC % 0 Sodium Potassium Chloride Carbon Dioxide Anion Gap BUN Creatinine Est GFR (CKD-EPI)AfAm Est GFR (CKD-EPI)NonAf POC Glucometer 166 167 Random Glucose Hemoglobin A1c % Lactic Acid Calcium Total Bilirubin AST ALT Alkaline Phosphatase Creatine Kinase Total Protein Albumin Triglycerides Cholesterol Total LDL Cholesterol HDL Cholesterol Vitamin B12 Serum , Qual 01/13/19 01/13/19 01/14/19 16:48 21:55 05:41 WBC RBC Hgb Hct MCV MCH MCHC RDW Plt Count MPV Absolute Neuts (auto) Neutrophils % Lymphocytes % Monocytes % Eosinophils % Basophils % Nucleated RBC % Sodium Potassium Chloride Carbon Dioxide Anion Gap BUN Creatinine Est GFR (CKD-EPI)AfAm Est GFR (CKD-EPI)NonAf POC Glucometer 82 115 124 Random Glucose Hemoglobin A1c % Lactic Acid Calcium Total Bilirubin AST ALT Alkaline Phosphatase Creatine Kinase Total Protein Albumin Triglycerides Cholesterol Total LDL Cholesterol HDL Cholesterol Vitamin B12 Serum , Qual 01/14/19 01/14/19 01/14/19 06:00 06:00 11:11 WBC 9.1 RBC 3.99 Hgb 11.1 Hct 34.5 MCV 86.5 MCH 27.8 MCHC 32.1 RDW 15.3 Plt Count 296 MPV 10.2 Absolute Neuts (auto) Neutrophils % Lymphocytes % Monocytes % Eosinophils % Basophils % Nucleated RBC % Sodium 138 Potassium 4.3 Chloride 108 H Carbon Dioxide 26 Anion Gap 4 L BUN 22 H Creatinine 1.2 Est GFR (CKD-EPI)AfAm 62.76 Est GFR (CKD-EPI)NonAf 54.15 POC Glucometer 122 Random Glucose 128 H Hemoglobin A1c % Lactic Acid Calcium 8.3 L Total Bilirubin 0.1 L AST 8 L ALT 7 L Alkaline Phosphatase 133 H Creatine Kinase Total Protein 6.2 L Albumin 2.2 L Triglycerides Cholesterol Total LDL Cholesterol HDL Cholesterol Vitamin B12 Serum , Qual 01/14/19 01/14/19 01/15/19 16:46 21:50 06:30 WBC 8.7 RBC 3.88 Hgb 10.7 Hct 33.6 MCV 86.6 MCH 27.6 MCHC 31.9 L RDW 15.2 Plt Count 329 MPV 10.1 Absolute Neuts (auto) Neutrophils % Lymphocytes % Monocytes % Eosinophils % Basophils % Nucleated RBC % Sodium Potassium Chloride Carbon Dioxide Anion Gap BUN Creatinine Est GFR (CKD-EPI)AfAm Est GFR (CKD-EPI)NonAf POC Glucometer 138 154 Random Glucose Hemoglobin A1c % Lactic Acid Calcium Total Bilirubin AST ALT Alkaline Phosphatase Creatine Kinase Total Protein Albumin Triglycerides Cholesterol Total LDL Cholesterol HDL Cholesterol Vitamin B12 Serum , Qual 01/15/19 01/15/19 01/15/19 06:30 06:44 11:09 WBC RBC Hgb Hct MCV MCH MCHC RDW Plt Count MPV Absolute Neuts (auto) Neutrophils % Lymphocytes % Monocytes % Eosinophils % Basophils % Nucleated RBC % Sodium 140 Potassium 4.4 Chloride 109 H Carbon Dioxide 24 Anion Gap 8 BUN 23 H Creatinine 1.3 Est GFR (CKD-EPI)AfAm 56.97 Est GFR (CKD-EPI)NonAf 49.16 POC Glucometer 183 239 Random Glucose 171 H Hemoglobin A1c % Lactic Acid Calcium 8.4 L Total Bilirubin 0.2 AST 6 L ALT < 6 L Alkaline Phosphatase 129 H Creatine Kinase Total Protein 6.3 L Albumin 2.3 L Triglycerides Cholesterol Total LDL Cholesterol HDL Cholesterol Vitamin B12 Serum , Qual 01/15/19 01/15/19 01/16/19 16:47 21:46 06:35 WBC RBC Hgb Hct MCV MCH MCHC RDW Plt Count MPV Absolute Neuts (auto) Neutrophils % Lymphocytes % Monocytes % Eosinophils % Basophils % Nucleated RBC % Sodium Potassium Chloride Carbon Dioxide Anion Gap BUN Creatinine Est GFR (CKD-EPI)AfAm Est GFR (CKD-EPI)NonAf POC Glucometer 85 153 143 Random Glucose Hemoglobin A1c % Lactic Acid Calcium Total Bilirubin AST ALT Alkaline Phosphatase Creatine Kinase Total Protein Albumin Triglycerides Cholesterol Total LDL Cholesterol HDL Cholesterol Vitamin B12 Serum , Qual 01/16/19 01/16/19 01/16/19 07:00 07:00 11:38 WBC 9.1 RBC 4.01 Hgb 11.1 Hct 34.5 MCV 85.9 MCH 27.7 MCHC 32.2 RDW 15.4 Plt Count 338 MPV 10.0 Absolute Neuts (auto) Neutrophils % Lymphocytes % Monocytes % Eosinophils % Basophils % Nucleated RBC % Sodium 140 Potassium 4.6 Chloride 104 Carbon Dioxide 28 Anion Gap 7 L BUN 28 H Creatinine 1.3 Est GFR (CKD-EPI)AfAm 56.97 Est GFR (CKD-EPI)NonAf 49.16 POC Glucometer 206 Random Glucose 150 H Hemoglobin A1c % Lactic Acid Calcium 9.1 Total Bilirubin 0.1 L AST 11 L ALT 7 L Alkaline Phosphatase 140 H Creatine Kinase Total Protein 6.8 Albumin 2.5 L Triglycerides Cholesterol Total LDL Cholesterol HDL Cholesterol Vitamin B12 Serum , Qual Active Medications Generic Name Dose Route Start Last Admin Trade Name Freq PRN Reason Stop Dose Admin Acetaminophen 650 mg 01/12/19 19:09 Tylenol - PO Q4H PRN PAIN LEVEL 1 - 3/TEMP OVER 100 Al Hydroxide/Mg Hydroxide 30 ml 01/12/19 13:50 01/15/19 10:14 Mylanta Oral Suspension - PO 30 ml Q6H PRN Administration DYSPEPSIA Albuterol Sulfate 1 amp 01/11/19 00:17 Ventolin 0.083% Nebulizer Soln - NEB Q6H PRN WHEEZING Aspirin 81 mg 01/11/19 10:00 01/16/19 09:08 Ecotrin - PO 81 mg DAILY MICK Administration Atorvastatin Calcium 40 mg 01/13/19 10:22 01/15/19 21:42 Lipitor - PO 40 mg HS MICK Administration Cyclobenzaprine HCl 10 mg 01/11/19 00:47 01/15/19 10:14 Flexeril - PO 10 mg BID PRN Administration MUSCLE SPASMS Docusate Sodium 100 mg 01/11/19 10:00 01/16/19 09:08 Colace - PO 100 mg BID MICK Administration Insulin Aspart 1 vial 01/11/19 07:00 01/16/19 11:43 Novolog Vial Sliding Scale - SQ 4 unit ACHS MICK Administration Protocol Insulin Detemir 30 units 01/11/19 07:00 01/16/19 06:30 Levemir Vial SQ 30 units AM MICK Administration Lidocaine 1 patch 01/11/19 10:00 01/16/19 09:08 Lidoderm Patch - TP 1 patch DAILY MICK Administration Meclizine HCl 25 mg 01/11/19 00:17 01/15/19 14:03 Antivert - PO 25 mg TID PRN Administration VERTIGO Miscellaneous 1 each 01/11/19 22:00 01/15/19 21:50 Lidoderm Patch Removal MC Not Given DAILY@2200 [facility] Morphine Sulfate 2 mg 01/12/19 19:09 01/15/19 14:03 Morphine Sulfate IVPUSH 2 mg Q4H PRN Administration PAIN LEVEL 7 - 10 Oxycodone HCl 5 mg 01/12/19 19:08 01/16/19 09:08 Roxicodone - PO 5 mg Q4H PRN Administration PAIN LEVEL 4 - 6 Polyethylene Glycol 17 gm 01/15/19 14:00 01/16/19 14:23 Miralax (For Daily Use) - PO 01/18/19 06:59 Not Given TID MICK Pregabalin 150 mg 01/11/19 06:00 01/16/19 06:29 Lyrica - PO 150 mg TID MICK Administration Rivaroxaban 15 mg 01/11/19 10:57 01/15/19 18:02 Xarelto PO 15 mg DAILY@1800 MICK Administration Condition: Stable - Instructions Diet, Activity, Other Instructions: follow up with pmd in 48hrs after discharge follow up with Dr Neil Follow up with Dr Easton for outpatient GI workup follow up with Dr [facility] for R foot opain continue with current medication regimen return to ER if severe pain, respiratory distress, chest pain Referrals: Phil Easton MD [Staff Physician] - Porfirio Stark MD [Staff Physician] - Walter Neil MD [Staff Physician] - Disposition: HOME - Home Medications Comprehensive Discharge Medication List: Ambulatory Orders Budesonide [Pulmicort 0.25 mg Nebulizer -] 1 neb PO BID 11/21/15 Albuterol 0.083% Nebulizer Carolyn [Ventolin 0.083% Nebulizer Soln -] 1 amp NEB Q6HPO amp 12/15/15 Insulin (Novolog) [Novolog -] 0 units SQ ASDIR 04/15/16 Pregabalin [Lyrica -] 150 mg PO TID 04/15/16 Acetaminophen [Tylenol .Regular Strength -] 650 mg PO Q6H PRN #0 tablet Docusate Sodium [Colace -] 100 mg PO BID #60 11/22/16 Iron Polysaccharides [Niferex-150 -] 150 mg PO DAILY #30 11/22/16 Meclizine HCl [Antivert -] 25 mg PO TID PRN #90 tablet 11/22/16 oxyCODONE HCL [Roxicodone -] 10 mg PO Q6H PRN #120 tablet MDD 4 11/22/16 Aspirin Coated [Ecotrin -] 81 mg PO DAILY tablet.ec 01/25/18 Insulin (Levemir) [Levemir Vial] 30 units SQ AM ml 01/25/18 Nitroglycerin Patch [Nitro-Dur Patch -] 0.1 mg TD DAILY #30 patch.[id number] 01/25/18 Cyclobenzaprine HCl [Flexeril -] 1 tab PO BID PRN 06/28/18 Rivaroxaban [Xarelto] 1 tab PO DAILY 06/28/18 LORazepam [Ativan] 1 mg PO BID MDD 2 01/10/19 Atorvastatin Ca [Lipitor] 40 mg PO HS #30 tablet 01/16/19 Lidocaine 5% Patch [Lidoderm -] 1 patch TP DAILY #30 patch 01/16/19 Mag Hydrox/Al Hydrox/Simeth [Mylanta Oral Suspension -] 30 ml PO Q6H PRN #1 bottle 01/16/19 Polyethylene Glycol 3350 [Miralax 119 gm Btl -] 17 gm PO TID #1 bottle 01/16/19
[2019-01-16 14:58] VITALS: BP 133/72; PULSE 93; TEMP 98.7
[2019-01-16] MEDS: RIVAROXABAN 15 MG TABLET PO SCH (17:27)
== END 2019-01-16 17:33 | disposition home or self-care (01) | DRG 351 ==
LOC: JER 17:58 → JERBED 23:33 → J5S 01-11 02:42
PROVIDERS: ADMIT Family Medicine; ATTEND Family Medicine
DX: M76.821 Posterior tibial tendinitis, right leg (principal); E11.22 Type 2 diabetes mellitus with diabetic chronic kidney disease; D68.59 Other primary thrombophilia; E87.2 Acidosis; E11.43 Type 2 diabetes mellitus with diabetic autonomic (poly)neuropathy; I70.1 Atherosclerosis of renal artery; N28.1 Cyst of kidney, acquired; Z89.612 Acquired absence of left leg above knee; I73.9 Peripheral vascular disease, unspecified; N18.9 Chronic kidney disease, unspecified; I35.0 Nonrheumatic aortic (valve) stenosis; I25.10 Atherosclerotic heart disease of native coronary artery without angina pectoris; Z87.891 Personal history of nicotine dependence; I25.2 Old myocardial infarction; J44.9 Chronic obstructive pulmonary disease, unspecified; Z86.73 Personal history of transient ischemic attack (TIA), and cerebral infarction without residual deficits; E78.5 Hyperlipidemia, unspecified; I12.9 Hypertensive chronic kidney disease with stage 1 through stage 4 chronic kidney disease, or unspecified chronic kidney disease; K21.9 Gastro-esophageal reflux disease without esophagitis; K56.41 Fecal impaction; J45.909 Unspecified asthma, uncomplicated; Z79.4 Long term (current) use of insulin; Z95.1 Presence of aortocoronary bypass graft; M54.5 Low back pain
CPT/HCPCS: 36415; 72148-TC; 75635-TC; 76700-TC; 80048; 80053; 80061; 82550; 82607; 82962; 83036; 83605; 83721; 84703; 85025; 85027; 93005; 93010; 93923; 93926-TC; 93971-TC; 97116-GP; 97162-GP; 99284-25

== ENCOUNTER 2019-03-08 07:31 | Inpatient (IN) | payer OTHER ==
--- NOTE | 2019-03-08 07:39 | PDOC ---
History of Present Illness - General Stated Complaint: WEAKNESS Time Seen by Provider: 03/08/19 07:39 History Source: Patient Exam Limitations: No Limitations - History of Present Illness Initial Comments: Desire Ren is a 44 yo F w a hx of PAD s/p multiple BLE revascularizations and stents (follows with Dr. Neil) s/p LLE partial ATK amputation, CAD s/ p PDI 2014, Protein S deficiency on coumadin, IDDM, HLD, HTN, CVA 2014, [place] 2014 , CKD, COPD, prior long time smoker who presents to the [facility] ER BIBEMS for weakness, decreased appetite, decreased PO intake and generalized lethargy. The patient lives at home with her daughter and other children and the daughter was concerned that the patient was tired and not eating so called the ambulance to have the patient evaluated in the ER. The patient states she feels fine but has some lower back pain and lower abdominal pain which has been worsening for the past 2 days. She denies any fevers at home but endorses multiple recent episodes of the chills. Patient denies having any chest pain, SOB, difficulty breathing, headache, blurry vision, neck pain, dysuria, frequency, or urgency. POC glucose: 225 LMP: Patient currently on her period PCP: Dr. Conley Vascular: Dr. Montalvo Social Hx: Denies current cigarette, alcohol, or other substance usage. Former smoker. Lives at home with daughter and children who take care of the patient. PSH: LLE partial amputation, umbilical hernia repair Allergies: NKA, NKDA Past History - Past Medical History Allergies/Adverse Reactions: Allergies Allergy/AdvReac Type Severity Reaction Status Date / Time No Known Drug Allergies Allergy Verified 03/08/19 07:48 Home Medications: Ambulatory Orders Budesonide [Pulmicort 0.25 mg Nebulizer -] 1 neb PO BID 11/21/15 Albuterol 0.083% Nebulizer Carolyn [Ventolin 0.083% Nebulizer Soln -] 1 amp NEB Q6HPO amp 12/15/15 Insulin (Novolog) [Novolog -] 0 units SQ ASDIR 04/15/16 Pregabalin [Lyrica -] 150 mg PO TID 04/15/16 Acetaminophen [Tylenol .Regular Strength -] 650 mg PO Q6H PRN #0 tablet 03/22/ 17 Docusate Sodium [Colace -] 100 mg PO BID #60 11/22/16 Iron Polysaccharides [Niferex-150 -] 150 mg PO DAILY #30 11/22/16 Meclizine HCl [Antivert -] 25 mg PO TID PRN #90 tablet 11/22/16 Aspirin Coated [Ecotrin -] 81 mg PO DAILY tablet.ec 01/25/18 Insulin (Levemir) [Levemir Vial] 30 units SQ AM ml 01/25/18 Nitroglycerin Patch [Nitro-Dur Patch -] 0.1 mg TD DAILY #30 patch.td24 01/25/18 Cyclobenzaprine HCl [Flexeril -] 1 tab PO BID PRN 06/28/18 Rivaroxaban [Xarelto] 1 tab PO DAILY 06/28/18 LORazepam [Ativan] 1 mg PO BID MDD 2 01/10/19 Atorvastatin Ca [Lipitor] 40 mg PO HS #30 tablet 01/16/19 Lidocaine 5% Patch [Lidoderm -] 1 patch TP DAILY #30 patch 01/16/19 Mag Hydrox/Al Hydrox/Simeth [Mylanta Oral Suspension -] 30 ml PO Q6H PRN #1 bottle 01/16/19 Polyethylene Glycol 3350 [Miralax 119 gm Btl -] 17 gm PO TID #1 bottle 01/16/19 Anemia: No Asthma: Yes Cancer: No Cardiac Disorders: Yes (mild heart attack, 1 stent,CAD S/P PDI 2014) CVA: Yes (01/2015) COPD: No CHF: No DVT: No (PVD left leg amputation) Dementia: No Diabetes: Yes GI Disorders: Yes (perforated bowel,divertic,GERD) Disorders: Yes (Chronic kidney disease,not on dialysis) HTN: Yes Hypercholesterolemia: Yes Liver Disease: No Psychiatric Problems: Yes (anxiety) Seizures: No Thyroid Disease: No - Surgical History Abdominal Surgery: Yes (perforated bowel,hernia repair) Appendectomy: No Cardiac Surgery: Yes (stent ,bypass) Cholecystectomy: Yes Lung Surgery: No Neurologic Surgery: No Orthopedic Surgery: No (L HIP ORIF 2016) - Family Disease History Family Disease History: Diabetes: Father, Mother, Heart Disease: Father - Reproductive History Tubal Ligation: Yes (2003) - Immunization History Immunization Up to Date: Yes - Suicide/Smoking/Psychosocial Hx Smoking Status: No Smoking History: Unknown if ever smoked Have you smoked in the past 12 months: No Number of Cigarettes Smoked Daily: 5 If you are a former smoker, when did you quit?: 10 ya 'Breaking Loose' booklet given: 07/14/17 Hx Alcohol Use: No Drug/Substance Use Hx: No Substance Use Type: None Hx Substance Use Treatment: No Review of Systems - Review of Systems Able to Perform ROS?: Yes Comments:: CONSTITUTIONAL: Present: Fever, chills, fatigue EYES: Absent: visual changes ENT: Absent: ear pain, no sore throat CARDIOVASCULAR: Absent: chest pain, no palpitations RESPIRATORY: Absent: cough, no SOB GI: Present: Abdominal pain, nausea Absent: no vomiting, no constipation, no diarrhea GENITOURINARY: Absent: dysuria, no frequency, no hematuria MUSKULOSKELETAL: Present: Back pain Absent: no arthralgia, no myalgia SKIN: Present: rash NEURO: Absent: headache *Physical Exam - Physical Exam Comments: GENERAL: Patient looks pale, sad, and only has her right leg. Malodorous scent. Mild active distress. HEENT: Normocephalic, atraumatic. PERRL, EOM intact. CARDIOVASCULAR: Tachycardic rate. Normal S1, S2. Regular rhythm. PULMONARY: No evidence of respiratory distress. Lungs clear to auscultation bilaterally. No wheezing, rales or rhonchi. ABDOMEN: There is a LLQ scar from a hernia surgery. There is LLQ abdominal TTP. Normal bowel sounds. The abdomen is soft and non-distended. EXTREMITIES: The patient has her left leg amputated from above the knee. Normal ROM in the other 3 extremities. 2+ pulses in other 3 extremities. SKIN: There is a stage 2/3 small sacral ulcer with a surrounding area of erythema, warmth and TTP. NEUROLOGICAL: No focal neurological deficits. ED Treatment Course - LABORATORY CBC & Chemistry Diagram: 03/08/19 08:30 03/08/19 08:30 - RADIOLOGY Radiograph Interpretation: CXR: Chest: Sepsis Single AP view of the chest reveals clear lungs, normal mediastinum and sharp angles. There is an elevated right hemidiaphragm. The bones and soft tissues are intact. Impression: No acute pathology. No significant change since 02/22/2018. CT: Left lower quadrant abdominal pain CT scan of the abdomen pelvis without oral and intravenous contrast Coronal and sagittal reformatted images were obtained The visualized lung base appears unremarkable and the heart is within normal limits in size. Evaluation of the liver, spleen, pancreas, gallbladder, both adrenal glands and both kidneys appear unremarkable. Both kidneys appear unremarkable without evidence of hydroureteronephrosis, renal or ureteral stone , bilaterally. The stomach is not distended with oral contrast limiting evaluation of its wall Compared to prior CT angiogram of the abdomen pelvis dated 01/10/2019. Included lower lung demonstrates airspace opacities is suggestive of infiltrates. There are also mild atelectatic changes in the dependent portion of the right lower lobe. The heart is within normal limits in size. Partially distended stomach without wall thickening. Evaluation of the liver, spleen and pancreas appear unremarkable. Status post cholecystectomy surgical metallic clips are present. Both adrenal glands appear unremarkable. A simple cyst is again seen in the left renal lower pole measuring 2 cm a small/ atrophic right kidney with a lobulated contour is again seen. There is no gross evidence of hydronephrosis, bilaterally. There is no evidence of small bowel obstruction normal-appearing terminal ileum and appendix. Normal stool burden in the colon. There are a few diverticula in the sigmoid colon without evidence of acute diverticulitis. Normal size uterus. Moderately distended urinary bladder without wall thickening. There is a 4 x 3.7 cm masslike density in the left adnexa likely representing the left ovary with a cyst measuring 2.4 cm. Very dense calcified plaques are present in the distal abdominal aorta and its bifurcation. A bifemoral graft is again seen. There is also a stent/graft in the right common iliac and external iliac artery as well as in the left common iliac and external iliac artery. Please refer to prior CT angiogram of the abdomen pelvis report dated the Visualized osseous structures appear intact IMPRESSION: Patchy airspace opacities in the included lower lung suggestive of pneumonia with mild atelectatic changes in the dependent portion of the right lower lobe. Status post cholecystectomy. Small right kidney with a lobulated contour suggestive of scarring again seen. There is no evidence of small bowel obstruction. Diverticulosis coli without evidence of acute diverticulitis. Masslike density in the left hemipelvis likely representing a prominent left ovary with a simple cyst/follicle measuring 2.4 cm Vascular calcifications and stents, as described above. Please refer to prior CT angiogram of the abdomen pelvis report dated 01/10/2019 Medical Decision Making - Medical Decision Making Desire Ren is a 44 yo F w a hx of PAD s/p multiple BLE revascularizations and stents (follows with Dr. Neil) s/p LLE partial ATK amputation, CAD s/ p PDI 2014, Protein S deficiency on coumadin, IDDM, HLD, HTN, CVA 2014, [place] 2014 , CKD, COPD, prior long time smoker who presents to the [facility] ER BIBEMS for weakness, decreased appetite, decreased PO intake and generalized lethargy. The patient lives at home with her daughter and other children and the daughter was concerned that the patient was tired and not eating so called the ambulance to have the patient evaluated in the ER. The patient states she feels fine but has some lower back pain and lower abdominal pain which has been worsening for the past 2 days. She denies any fevers at home but endorses multiple recent episodes of the chills. Vital Signs Temp Pulse Resp BP Pulse Ox 100.7 F H 118 H 17 133/63 93 L 03/08/19 07:51 03/08/19 07:44 03/08/19 07:44 03/08/19 07:44 03/08/19 07:44 MDM: Patient presents with lower back pain, has a sacral ulcer, is tachycardic, and febrile rectally most suspicious for sepsis secondary to her sacral ulcer. She also has abdominal pain. DDx IBNLT: Sepsis, sacral ulcer, intra-abdominal infection, HHNS/DKA, electrolyte/metabolic disturbance, UTI/Pylo Plan: ED adult sepsis workup - blood - cbc, cmp, trop, cpk, vbg, pt/ptt,T&S, ua , cultures - blood, wound, urine - CXR, EKG, CTAP, Abx, probable admit to hospital. EKG: Sinus tachy rate of 113, frequent PVC's, Non-specific T wave abnormality - inverted T waves in aVl and 1. Unchanged from 01/10/19. MD - 130, QTc - 438. CXR: Unremarkable - no acute pathology Patient has prior Microbio wound cultures which grew pretty resistant organisms. - Will start patient empirically on Vanc/Zosyn CTAP: Right lower lobe PNA. Full report above. Labs: Multiple disturbances. Patient has a bad REBA, is acidotic, and has an elevated CK. Patient is likely septic from her decubitus ulcer but also has a RLL Pneumonia. - Her septic ulcer is likely causing her CK to be elevated - Elevated CK is causing her to have a kidney injury - Kidney injury uremia is causing the patient to have an anion gap metabolic acidosis Urine: Unremarkable Disposition: Will admit patient to the hospital for Uremic induced anion gap metabolic acidosis as well as sepsis from sacral decubitus ulcer and RLL. - Patient endorsed to hospitalist and accepted for admission *DC/Admit/Observation/Transfer Diagnosis at time of Disposition: Sacral decubitus ulcer, Elevated CK, REBA (acute kidney injury), Metabolic acidosis, High anion gap metabolic acidosis, Uremia, Right lower lobe pneumonia - Discharge Dispostion Condition at time of disposition: Guarded Decision to Admit order: Yes - Referrals - Patient Instructions - Post Discharge Activity
--- NOTE | 2019-03-08 07:49 | PDOC ---
Attending Attestation - Resident Resident Name: Henry Marvin - ED Attending Attestation I have performed the following: I have examined & evaluated the patient, The case was reviewed & discussed with the resident, I agree w/resident's findings & plan, Exceptions are as noted - HPI HPI: 44 yo F history PAD, CAD, protein S deficiency, DM, HL, HTN, CVA, CKD, COPD presents with weakness, dec appetite, dec PO intake, lethargy as per family that she lives with. She offers very limited history except that she has low back pain (has history of decubitis ulcer) and lower abdominal pain. No N/V/D. - Physicial Exam PE: GENERAL: Awake, alert, and oriented to person and place, in no acute distress HEAD: No signs of trauma EYES: PERRLA, EOMI, sclera anicteric, conjunctiva clear ENT: Auricles normal inspection, hearing grossly normal, nares patent, oropharynx clear without exudates. Dry mucosa NECK: Normal ROM, supple, no lymphadenopathy, JVD, or masses LUNGS: Breath sounds equal, clear to auscultation bilaterally. No wheezes, and no crackles HEART: Regular rate and rhythm, normal S1 and S2, no murmurs, rubs or gallops ABDOMEN: Soft, +BLQ tenderness, normoactive bowel sounds. No guarding, no rebound. No masses EXTREMITIES: Normal range of motion, no edema. No clubbing or cyanosis. No cords, erythema, or tenderness NEUROLOGICAL: Cranial nerves II through XII grossly intact. Normal speech. Motor and sensation intact SKIN: Warm, dry, normal turgor. +Stage II decubitis ulcer with surrounding contused tissue - Medical Decision Making Pt presents with presumed sepsis, unclear etiology. Will send sepsis order set, obtain CXR, and obtain CT a/p. Will plan for admission.
[2019-03-08] MEDS ORDERED: SODIUM CHLORIDE 2,177 ML IV ONE (07:54)
[2019-03-08] MEDS ORDERED: ACETAMINOPHEN 1000 MG/100 ML VIAL (NON FORMULARY) IVPB ONE (08:14)
[2019-03-08] MEDS ORDERED: ACETAMINOPHEN INJECTION 100 ML IVPB ONE (08:16)
[2019-03-08 08:18] LABS: VENOUS PC02 36.7 mmHg (41-51); VENOUS PH 7.24 (7.31-7.41); VENOUS PO2 67.7 mmHg (30-40)
[2019-03-08] MEDS ORDERED: VANCOMYCIN 1,000 MG in DEXTROSE 5%-WATER - 250 ML IVPB ONE (08:36)
[2019-03-08] MEDS ORDERED: PIPERACILLIN/TAZOB 4.5 GM 4.5 GM in DEXTROSE 5%-WATER 100 ML IVPB ONE (08:36)
[2019-03-08] MEDS ORDERED: VANCOMYCIN 1 GRAM (PRE-DOCKED) 1,000 MG/250 ML BAG IVPB ONE (08:40)
[2019-03-08] MEDS ORDERED: PIPERACILLIN/TAZOB 4.5 GM 4.5 GM/100 ML BAG IVPB ONE (08:40)
[2019-03-08 08:44] LABS: HEMATOCRIT 33.7 % (32.4-45.2); HEMOGLOBIN 11.1 GM/dL (10.7-15.3); MCH 27.3 pg (25.7-33.7); MCHC 32.8 g/dl (32.0-36.0); MEAN CELL VOLUME 83.4 fl (80-96); MEAN PLT VOLUME 9.8 fl (7.5-11.1); PLATELET COUNT 319 K/MM3 (134-434); RBC 4.04 M/mm3 (3.60-5.2); RDW 16.1 % (11.6-15.6)
[2019-03-08 09:24] LABS: PROTHROMBIN TIME (PATIENT) 11.8 SEC (9.7-13.0)
[2019-03-08 09:27] LABS: ACTIVATED PTT 20.5 SECONDS (25.2-36.5)
[2019-03-08 09:28] LABS: HYALINE CASTS 14 /lpf (0-8); URINE APPEARANCE CLEAR; URINE BACTERIA 0.2 /hpf (NEGATIVE); URINE BILIRUBIN 2+ (NEGATIVE); URINE COLOR DK YELLOW; URINE GLUCOSE (UA) NEGATIVE (NEGATIVE); URINE KETONE TRACE (NEGATIVE); URINE LEUK ESTERASE NEGATIVE (NEGATIVE); URINE NITRITE NEGATIVE (NEGATIVE); URINE PROTEIN 1+ (NEGATIVE); URINE RBC 5 /hpf (0-4); URINE WBC 1 /hpf (0-5)
[2019-03-08 09:42] LABS: ALBUMIN 2.8 g/dl (3.4-5.0); ALK PHOS 223 U/L (45-117); ANION GAP 16 MMOL/L (8-16); BILIRUBIN,TOTAL 0.7 mg/dL (0.2-1); BLOOD UREA NITROGEN 60.8 mg/dL (7-18); CALCIUM 8.4 mg/dL (8.5-10.1); CHLORIDE 106 mmol/L (98-107); CO2 13 mmol/L (21-32); CREATININE 4.8 mg/dL (0.55-1.3); GLUCOSE,RANDOM 212 mg/dL (74-106); POTASSIUM 5.2 mmol/L (3.5-5.1); SGOT/AST 107 U/L (15-37); SGPT/ALT 18 U/L (13-61); SODIUM 135 mmol/L (136-145)
[2019-03-08 10:16] LABS: ANISOCYTOSIS 2+; MACROCYTOSIS 1+; PLATELET ESTIMATE NORMAL; TEAR DROP CELLS 1+
[2019-03-08 11:17] LABS: WHITE BLOOD COUNT 19.1 K/mm3 (4.0-10.0)
[2019-03-08] MEDS ORDERED: MAG HYDROX/AL HYDROX/SIMETH 30 ML UNIT-DOSE CUP PO PRN (16:17)
[2019-03-08] MEDS ORDERED: MECLIZINE HCL 25 MG TABLET (FP) PO PRN (16:17)
[2019-03-08] MEDS ORDERED: PT OWN MED DRAWER 7, Y5N ONE (16:49)
[2019-03-08] MEDS: SODIUM CHLORIDE 1,000 ML IV SCH (17:09)
[2019-03-08] MEDS: INSULIN SLIDING SCALE (NOVOLOG) 1 VIAL SQ SCH (17:09)
--- NOTE | 2019-03-08 17:49 | HP ---
Admitting History and Physical - Primary Care Physician PCP: Carmella Conley - Admission Chief Complaint: weakness History of Present Illness: Desire Ren is a 44 yo F w a hx of PAD s/p multiple BLE revascularizations and stents (follows with Dr. Neil) s/p LLE partial ATK amputation, CAD s/ p PDI 2014, Protein S deficiency on coumadin, IDDM, HLD, HTN, CVA 2014, [place] 2014 , CKD, COPD, prior long time smoker who presents to the [facility] ER BIBEMS for weakness, decreased appetite, decreased PO intake and generalized lethargy. The patient lives at home with her daughter and other children and the daughter was concerned that the patient was tired and not eating so called the ambulance to have the patient evaluated in the ER. The patient states she feels fine but has some lower back pain and lower abdominal pain which has been worsening for the past 2 days. She denies any fevers at home but endorses multiple recent episodes of the chills. Patient denies having any chest pain, SOB, difficulty breathing, headache, blurry vision, neck pain, dysuria, frequency, or urgency. - Past Medical History DIRECTOR DIGITAL CATALOGUE: Yes: CVA (in 2014 -. holter then sg= rare APCs, TTE and TAWANNA unremarkable, describes left visual field cut), Other (neuropathy) Cardiovascular: Yes: CAD (cath in 11/12 at [facility]: LCx FLY, 80% small D1 -. med managed. had subsequent stent at [facility]), HTN, Hyperlipdemia, [place] (at [facility] 2014 ) Pulmonary: Yes: Asthma, COPD Gastrointestinal: Yes: GERD Hepatobiliary: Yes: Cholelithiasis (s/p GB surgery) Renal/: Yes: Renal Inusuff (diabetic nephropathy) ...LMP: 03/08/19 Heme/Onc: Yes: Other (protein S deficiency ?) Musculoskeletal: Yes: Osteoarthritis, Other (herniated disc) Endocrine: Yes: Diabetes Mellitus (for over 20 yr s-. insulin for over 10 yrs) - Past Surgical History Past Surgical History: Yes: Amputation (left AKA 02/18), Bypass (iliac, ileofemoral bypasses and subsequent stents and thrombectomies ), Cholecystectomy (laparoscopic), Colonoscopy, (x 4), Hernia Repair ( incarcerated hernia with resection of 32cm of small bowel in 04/14 with meash repair of ventrak hernia. had subsequent infected mesh removal 09/15.), Stent ( coronary, iliac and femoral stents), Tubal Ligation - Smoking History Smoking history: Unknown if ever smoked Have you smoked in the past 12 months: No Aproximately how many cigarettes per day: 5 If you are a former smoker, when did you quit?: 10 ya - Alcohol/Substance Use Hx Alcohol Use: No History of Substance Use: reports: None - Social History ADL: Family Assistance Occupation: disabled History of Recent Travel: No Home Medications - Allergies Allergies/Adverse Reactions: Allergies Allergy/AdvReac Type Severity Reaction Status Date / Time No Known Drug Allergies Allergy Verified 03/08/19 07:48 - Home Medications Home Medications: Ambulatory Orders Budesonide [Pulmicort 0.25 mg Nebulizer -] 1 neb PO BID 11/21/15 Albuterol 0.083% Nebulizer Carolyn [Ventolin 0.083% Nebulizer Soln -] 1 amp NEB Q6HPO amp 12/15/15 Insulin (Novolog) [Novolog -] 0 units SQ ASDIR 04/15/16 Pregabalin [Lyrica -] 150 mg PO TID 04/15/16 Acetaminophen [Tylenol .Regular Strength -] 650 mg PO Q6H PRN #0 tablet Docusate Sodium [Colace -] 100 mg PO BID #60 11/22/16 Iron Polysaccharides [Niferex-150 -] 150 mg PO DAILY #30 11/22/16 Meclizine HCl [Antivert -] 25 mg PO TID PRN #90 tablet 11/22/16 Aspirin Coated [Ecotrin -] 81 mg PO DAILY tablet.ec 01/25/18 Insulin (Levemir) [Levemir Vial] 30 units SQ AM ml 01/25/18 Nitroglycerin Patch [Nitro-Dur Patch -] 0.1 mg TD DAILY #30 patch.td24 01/25/18 Cyclobenzaprine HCl [Flexeril -] 1 tab PO BID PRN 06/28/18 Rivaroxaban [Xarelto] 1 tab PO DAILY 06/28/18 LORazepam [Ativan] 1 mg PO BID MDD 2 01/10/19 Atorvastatin Ca [Lipitor] 40 mg PO HS #30 tablet 01/16/19 Lidocaine 5% Patch [Lidoderm -] 1 patch TP DAILY #30 patch 01/16/19 Mag Hydrox/Al Hydrox/Simeth [Mylanta Oral Suspension -] 30 ml PO Q6H PRN #1 bottle 01/16/19 Polyethylene Glycol 3350 [Miralax 119 gm Btl -] 17 gm PO TID #1 bottle 01/16/19 Family Disease History - Family Disease History Family History: Unremarkable Family Disease History: Diabetes: Mother ( in her late 50s DDM complications ), Sister ( in her 40s of substance abuse), CA: Father ( colon cancer age 85), Other: Father, Brother ( multiple drug OD) Review of Systems - Review of Systems Constitutional: reports: Lethargy, Loss of Appetite, Malaise, Weakness Eyes: reports: No Symptoms HENT: reports: No Symptoms Neck: reports: No Symptoms Cardiovascular: reports: No Symptoms Respiratory: reports: No Symptoms Gastrointestinal: reports: No Symptoms Genitourinary: reports: No Symptoms Breasts: reports: No Symptoms Reported Musculoskeletal: reports: No Symptoms Integumentary: reports: No Symptoms Neurological: reports: No Symptoms Endocrine: reports: No Symptoms Hematology/Lymphatic: reports: No Symptoms Psychiatric: reports: No Symptoms Physical Examination Vital Signs: Vital Signs Temperature 99.0 F 03/08/19 16:30 Pulse Rate 88 03/08/19 16:30 Respiratory Rate 16 03/08/19 16:30 Blood Pressure 148/72 03/08/19 16:30 O2 Sat by Pulse Oximetry (%) 98 03/08/19 16:30 Constitutional: Yes: Well Nourished, No Distress, Calm Cardiovascular: Yes: Regular Rate and Rhythm Respiratory: Yes: Regular Gastrointestinal: Yes: Normal Bowel Sounds, Soft, Abdomen, Obese Musculoskeletal: Yes: Muscle Weakness Extremities: Yes: WNL Edema: No Peripheral Pulses WNL: Yes Neurological: Yes: Alert, Pre-Existing Deficit Psychiatric: Yes: Alert Labs: CBC, BMP 03/08/19 08:30 03/08/19 08:30 Imaging - Results Chest X-ray: Report Reviewed Assessment/Plan (1) REBA (acute kidney injury) Assessment/Plan: -Cr trending down -Renal on board -IV hydration -monitor renal function Code(s): N17.9 - ACUTE KIDNEY FAILURE, UNSPECIFIED (2) Elevated CK Assessment/Plan: -CK downtrend from 6360 to 1311 -IV hydration -monitor CK level -tele monitoring Code(s): R74.8 - ABNORMAL LEVELS OF OTHER SERUM ENZYMES (3) Metabolic acidosis Code(s): E87.2 - ACIDOSIS (4) Right lower lobe pneumonia Assessment/Plan: -CXR shows lower lung demonstrates airspace opacities suggestive of infiltrates -ID on board -Leukocytosis -afebrile -Azithromycin and Ceftriaxone -BC neg Code(s): J18.1 - LOBAR PNEUMONIA, UNSPECIFIED ORGANISM (5) Sacral decubitus ulcer Assessment/Plan: -wound culture positive -ID on board -leukocytosis -Ceftriaxone + azithro IVPB -afebrile -turn q2h Code(s): L89.159 - PRESSURE ULCER OF SACRAL REGION, UNSPECIFIED STAGE (6) CAD (coronary artery disease) Assessment/Plan: -atorvastatin Code(s): I25.10 - ATHSCL HEART DISEASE OF [place] CORONARY ARTERY W/O ANG PCTRS Qualifiers: Coronary Disease-Associated Artery/Lesion type: coronary artery bypass graft Associated angina: without angina pectoris (7) COPD (chronic obstructive pulmonary disease) Assessment/Plan: -pulm consult -O2 via NC -keep SpO2 >90% -Budesonide -bronchodilators Code(s): J44.9 - CHRONIC OBSTRUCTIVE PULMONARY DISEASE, UNSPECIFIED Qualifiers: Emphysema type: unspecified (8) Type 2 diabetes mellitus with other diabetic kidney complication Assessment/Plan: -[facility]S -Levemir -ISS -diabetic diet -A1c 8.8 on 01/11/19 Code(s): E11.29 - TYPE 2 DIABETES MELLITUS W OTH DIABETIC KIDNEY COMPLICATION (9) Anemia Assessment/Plan: -mild drop in H/H -likely dilutional -Previously low in iron and B12 -repeat iron, Thyroid, folate and stool OB Code(s): D64.9 - ANEMIA, UNSPECIFIED Qualifiers: Anemia type: unspecified type Qualified Code(s): D64.9 - Anemia, unspecified (10) Cerebrovascular accident Assessment/Plan: -Xarelto Code(s): I63.9 - CEREBRAL INFARCTION, UNSPECIFIED (11) HLD (hyperlipidemia) Assessment/Plan: -Atorvastatin Code(s): E78.5 - HYPERLIPIDEMIA, UNSPECIFIED Qualifiers: Hyperlipidemia type: pure hypercholesterolemia Qualified Code(s): E78.00 - Pure hypercholesterolemia, unspecified; E78.0 - Pure hypercholesterolemia
[2019-03-08] MEDS: BUDESONIDE 0.25 MG/2ML INH SUSP VIAL NEB SCH (20:30)
[2019-03-08] MEDS: ALBUTEROL SO4 0.083% IH SOL 2.5 MG/3 ML VIAL.NEB. NEB SCH (20:30)
[2019-03-08] MEDS: POLYETHYLENE GLYCOL 3350 119 GM BTL PO SCH (22:24)
[2019-03-08] MEDS: PREGABALIN 75 MG CAPSULE PO SCH (22:25)
[2019-03-08] MEDS: LIDOCAINE PATCH REMOVAL MC SCH (22:25)
[2019-03-08] MEDS: DOCUSATE SODIUM 100 MG CAPSULE (FP) PO SCH (22:25)
[2019-03-08] MEDS: LORazepam 0.5 MG TABLET PO SCH (22:26)
[2019-03-08] MEDS: ATORVASTATIN CA 40 MG TABLET (FP) PO SCH (22:26)
[2019-03-08] MEDS: CYCLOBENZAPRINE HCL 10 MG TABLET (FP) PO PRN (23:57)
[2019-03-09] MEDS: POLYETHYLENE GLYCOL 3350 119 GM BTL PO SCH ×3 (05:23→22:43)
[2019-03-09] MEDS: PREGABALIN 75 MG CAPSULE PO SCH ×3 (05:23→22:42)
[2019-03-09] MEDS: INSULIN (LEVEMIR) 100 UNITS/ML UNITS SQ SCH (06:28)
[2019-03-09] MEDS: INSULIN SLIDING SCALE (NOVOLOG) 1 VIAL SQ SCH ×3 (06:28→16:12)
[2019-03-09 07:34] LABS: BASO % 0.6 % (0-2.0); EOS % 6.3 % (0-4.5); HEMATOCRIT 31.8 % (32.4-45.2); HEMOGLOBIN 10.1 GM/dL (10.7-15.3); LYMPH % 22.3 % (8-40); MCHC 31.7 g/dl (32.0-36.0); MEAN CELL VOLUME 85.3 fl (80-96); MEAN PLT VOLUME 9.8 fl (7.5-11.1); MONO % 6.4 % (3.8-10.2); NEUT % 64.4 % (42.8-82.8); PLATELET COUNT 215 K/MM3 (134-434); RBC 3.73 M/mm3 (3.60-5.2); RDW 16.6 % (11.6-15.6); WHITE BLOOD COUNT 10.5 K/mm3 (4.0-10.0)
[2019-03-09 08:03] LABS: ALBUMIN 2.5 g/dl (3.4-5.0); BILIRUBIN,TOTAL 0.3 mg/dL (0.2-1); BLOOD UREA NITROGEN 50.3 mg/dL (7-18); CALCIUM 8.5 mg/dL (8.5-10.1); CREATININE 2.5 mg/dL (0.55-1.3); POTASSIUM 4.4 mmol/L (3.5-5.1)
[2019-03-09] MEDS ORDERED: PT OWN MED DRAWER 7, Y5N ONE ×2 (08:50→11:41)
[2019-03-09] MEDS: ALBUTEROL SO4 0.083% IH SOL 2.5 MG/3 ML VIAL.NEB. NEB SCH ×4 (09:00→20:50)
[2019-03-09] MEDS: BUDESONIDE 0.25 MG/2ML INH SUSP VIAL NEB SCH ×2 (09:00→20:49)
[2019-03-09] MEDS: ACETAMINOPHEN 325 MG TABLET (FP) PO PRN (09:55)
[2019-03-09] MEDS: LORazepam 0.5 MG TABLET PO SCH ×2 (09:55→22:42)
[2019-03-09] MEDS: DOCUSATE SODIUM 100 MG CAPSULE (FP) PO SCH ×2 (09:56→22:42)
[2019-03-09] MEDS: LIDOCAINE 5% TOPICAL PATCH TP SCH (09:56)
[2019-03-09] MEDS: ASPIRIN COATED 81 MG TABLET.EC PO SCH (09:57)
[2019-03-09] MEDS: IRON POLYSACCHARIDES 150 MG CAPSULE PO SCH (11:41)
--- NOTE | 2019-03-09 12:03 | PN ---
Progress Note, Physician Chief Complaint: Weakness REBA - Current Medication List Current Medications: Active Medications Acetaminophen (Tylenol -) 650 mg PO Q6H PRN PRN Reason: FEVER Last Admin: 03/09/19 09:55 Dose: 650 mg Al Hydroxide/Mg Hydroxide (Mylanta Oral Suspension -) 30 ml PO Q6H PRN PRN Reason: DYSPEPSIA Albuterol Sulfate (Ventolin 0.083% Nebulizer Soln -) 1 amp NEB RQID [facility] Last Admin: 03/09/19 09:00 Dose: 1 amp Aspirin (Ecotrin -) 81 mg PO DAILY [facility] Last Admin: 03/09/19 09:57 Dose: 81 mg Atorvastatin Calcium (Lipitor -) 40 mg PO HS [facility] Last Admin: 03/08/19 22:26 Dose: 40 mg Budesonide (Pulmicort 0.25 Mg Nebulizer -) 1 amp NEB RBID [facility] Last Admin: 03/09/19 09:00 Dose: 1 amp Cyclobenzaprine HCl (Flexeril -) 10 mg PO BID PRN PRN Reason: MUSCLE SPASMS Last Admin: 03/08/19 23:57 Dose: 10 mg Docusate Sodium (Colace -) 100 mg PO BID [facility] Last Admin: 03/09/19 09:56 Dose: 100 mg Sodium Chloride (Normal Saline -) 1,000 mls @ 75 mls/hr IV ASDIR [facility] Last Admin: 03/08/19 17:09 Dose: 75 mls/hr Insulin Aspart (Novolog Vial Sliding Scale -) 1 vial SQ TIDAC [facility]; Protocol Last Admin: 03/09/19 11:48 Dose: 4 units Insulin Detemir (Levemir Vial) 30 units SQ AM [facility] Last Admin: 03/09/19 06:28 Dose: 30 units Lidocaine (Lidoderm Patch -) 1 patch TP DAILY [facility] Last Admin: 03/09/19 09:56 Dose: 1 patch Lorazepam (Ativan -) 1 mg PO BID [facility] Last Admin: 03/09/19 09:55 Dose: 1 mg Meclizine HCl (Antivert -) 25 mg PO TID PRN PRN Reason: VERTIGO Miscellaneous (Lidoderm Patch Removal) 1 each MC DAILY@2200 [facility] Last Admin: 03/08/19 22:25 Dose: Not Given Polyethylene Glycol (Miralax (For Daily Use) -) 17 gm PO TID [facility] Last Admin: 03/09/19 05:23 Dose: 17 gm Polysaccharide Iron Complex (Niferex-150 -) 150 mg PO DAILY [facility] Last Admin: 03/09/19 11:41 Dose: Not Given Pregabalin (Lyrica -) 150 mg PO TID [facility] Last Admin: 03/09/19 05:23 Dose: 150 mg Rivaroxaban (Xarelto) 15 mg PO 1800 [facility] - Objective Vital Signs: Vital Signs Temperature 98.6 F 03/09/19 08:40 Pulse Rate 82 03/09/19 08:40 Respiratory Rate 18 03/09/19 08:40 Blood Pressure 100/58 L 03/09/19 08:40 O2 Sat by Pulse Oximetry (%) 100 03/08/19 21:00 Constitutional: Yes: Well Nourished, No Distress, Calm Cardiovascular: Yes: Regular Rate and Rhythm Respiratory: Yes: Regular Gastrointestinal: Yes: Normal Bowel Sounds, Soft, Abdomen, Obese Musculoskeletal: Yes: Muscle Weakness Extremities: Yes: WNL Edema: No Peripheral Pulses WNL: Yes Neurological: Yes: Alert, Pre-Existing Deficit Psychiatric: Yes: Alert Labs: CBC, BMP 03/09/19 05:44 03/09/19 05:44 INR, PTT INR 1.00 (0.83-1.09) 03/08/19 08:30 Assessment/Plan (1) REBA (acute kidney injury) Assessment/Plan: -Cr trending down -Renal on board -IV hydration -monitor renal function Code(s): N17.9 - ACUTE KIDNEY FAILURE, UNSPECIFIED (2) Elevated CK Assessment/Plan: -IV hydration -monitor CK level -tele monitoring Code(s): R74.8 - ABNORMAL LEVELS OF OTHER SERUM ENZYMES (3) Metabolic acidosis Code(s): E87.2 - ACIDOSIS (4) Right lower lobe pneumonia Assessment/Plan: -CXR shows lower lung demonstrates airspace opacities suggestive of infiltrates -ID on board -Leukocytosis -afebrile -Azithromycin and Ceftriaxone -BC neg Code(s): J18.1 - LOBAR PNEUMONIA, UNSPECIFIED ORGANISM (5) Sacral decubitus ulcer Assessment/Plan: -wound culture positive -ID on board -leukocytosis -Ceftriaxone + azithro IVPB -afebrile -turn q2h Code(s): L89.159 - PRESSURE ULCER OF SACRAL REGION, UNSPECIFIED STAGE (6) CAD (coronary artery disease) Assessment/Plan: -atorvastatin Code(s): I25.10 - ATHSCL HEART DISEASE OF [place] CORONARY ARTERY W/O ANG PCTRS Qualifiers: Coronary Disease-Associated Artery/Lesion type: coronary artery bypass graft Associated angina: without angina pectoris (7) COPD (chronic obstructive pulmonary disease) Assessment/Plan: -pulm consult -O2 via NC -keep SpO2 >90% -Budesonide -bronchodilators Code(s): J44.9 - CHRONIC OBSTRUCTIVE PULMONARY DISEASE, UNSPECIFIED Qualifiers: Emphysema type: unspecified (8) Type 2 diabetes mellitus with other diabetic kidney complication Assessment/Plan: -BGM ACHS -Levemir -ISS -diabetic diet -A1c 8.8 on 01/11/19 Code(s): E11.29 - TYPE 2 DIABETES MELLITUS W OTH DIABETIC KIDNEY COMPLICATION (9) Anemia Assessment/Plan: -monitor H/H -Previously low in iron and B12 -repeat iron, Thyroid, folate and stool OB Code(s): D64.9 - ANEMIA, UNSPECIFIED Qualifiers: Anemia type: unspecified type Qualified Code(s): D64.9 - Anemia, unspecified (10) Cerebrovascular accident Assessment/Plan: -Xarelto Code(s): I63.9 - CEREBRAL INFARCTION, UNSPECIFIED (11) HLD (hyperlipidemia) Assessment/Plan: -Atorvastatin Code(s): E78.5 - HYPERLIPIDEMIA, UNSPECIFIED Qualifiers: Hyperlipidemia type: pure hypercholesterolemia Qualified Code(s): E78.00 - Pure hypercholesterolemia, unspecified; E78.0 - Pure hypercholesterolemia
--- NOTE | 2019-03-09 12:58 | CON.NEP ---
Consult Consult Specialty:: nephrology Reason for Consultation:: ckd - History of Present Illness Chief Complaint: ams History of Present Illness: This is a44 year old woman who is known to me from previous admissions. She has a history of dm, htn, PAD, multiple revascularization procedures, abdominla hernia surgery, CKD who presents for AMS brought in by daughter. She thinks she is taking too many medications and also stated she was having trouble urinating which predated her constipation. 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 holter then sg= rare APCs, TTE and TAWANNA unremarkable, describes left visual field cut), Other (neuropathy) Cardio/Vascular: Yes: CAD (cath in 11/12 at [facility]: LCx FLY, 80% small D1 -. med managed. had subsequent stent at [facility]), HTN, Hyperlipdemia, [place] (at [facility] 2014 ) Pulmonary: Yes: Asthma, COPD Gastrointestinal: Yes: GERD Hepatobiliary: Yes: Cholelithiasis (s/p GB surgery) Renal/: Yes: Renal Inusuff (diabetic nephropathy) ...LMP: 03/08/19 Musculoskeletal: Yes: Osteoarthritis, Other (herniated disc) Endocrine: Yes: Diabetes Mellitus (for over 20 yr s-. 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 had subsequent infected mesh removal 09/15.), Stent ( coronary, iliac and femoral stents), Tubal Ligation - Alcohol/Substance Use Hx Alcohol Use: No History of Substance Use: reports: None - Smoking History Smoking history: Unknown if ever smoked Have you smoked in the past 12 months: No Aproximately how many cigarettes per day: 5 If you are a former smoker, when did you quit?: 10 ya - Social History Usual Living Arrangement: With Child ADL: Family Assistance Occupation: disabled History of Recent Travel: No Home Medications - Allergies Allergies/Adverse Reactions: Allergies Allergy/AdvReac Type Severity Reaction Status Date / Time No Known Drug Allergies Allergy Verified 03/08/19 07:48 - Home Medications Home Medications: Ambulatory Orders Budesonide [Pulmicort 0.25 mg Nebulizer -] 1 neb PO BID 11/21/15 Albuterol 0.083% Nebulizer Carolyn [Ventolin 0.083% Nebulizer Soln -] 1 amp NEB Q6HPO amp 12/15/15 Insulin (Novolog) [Novolog -] 0 units SQ ASDIR 04/15/16 Pregabalin [Lyrica -] 150 mg PO TID 04/15/16 Acetaminophen [Tylenol .Regular Strength -] 650 mg PO Q6H PRN #0 tablet Docusate Sodium [Colace -] 100 mg PO BID #60 11/22/16 Iron Polysaccharides [Niferex-150 -] 150 mg PO DAILY #30 11/22/16 Meclizine HCl [Antivert -] 25 mg PO TID PRN #90 tablet 11/22/16 Aspirin Coated [Ecotrin -] 81 mg PO DAILY tablet.ec 01/25/18 Insulin (Levemir) [Levemir Vial] 30 units SQ AM ml 01/25/18 Nitroglycerin Patch [Nitro-Dur Patch -] 0.1 mg TD DAILY #30 patch.td24 01/25/18 Cyclobenzaprine HCl [Flexeril -] 1 tab PO BID PRN 06/28/18 Rivaroxaban [Xarelto] 1 tab PO DAILY 06/28/18 LORazepam [Ativan] 1 mg PO BID MDD 2 01/10/19 Atorvastatin Ca [Lipitor] 40 mg PO HS #30 tablet 01/16/19 Lidocaine 5% Patch [Lidoderm -] 1 patch TP DAILY #30 patch 01/16/19 Mag Hydrox/Al Hydrox/Simeth [Mylanta Oral Suspension -] 30 ml PO Q6H PRN #1 bottle 01/16/19 Polyethylene Glycol 3350 [Miralax 119 gm Btl -] 17 gm PO TID #1 bottle 01/16/19 Family Disease History - Family Disease History Family Disease History: Diabetes: Mother ( in her late 50s DDM complications ), Sister ( in her 40s of substance abuse), CA: Father ( colon cancer age 85), Other: Father, Brother ( multiple drug OD) Review of Systems - Review of Systems Constitutional: reports: Weakness Eyes: reports: No Symptoms HENT: reports: No Symptoms Neck: reports: No Symptoms Cardiovascular: reports: No Symptoms Respiratory: reports: No Symptoms Gastrointestinal: reports: No Symptoms Genitourinary: reports: Other (difficulty urinating) Musculoskeletal: reports: No Symptoms Integumentary: reports: No Symptoms Neurological: reports: Confusion, Tremors Endocrine: reports: No Symptoms Hematology/Lymphatic: reports: No Symptoms Psychiatric: reports: No Symptoms Nephrology Consult - Height Height: 5 ft 3 in - Weight Weight: 160 lb - BMI Body Mass Index (BMI): 28.3 - Lab Results CBC,BMP: CBC, BMP 03/09/19 05:44 03/09/19 05:44 Anion Gap: Anion Gap Anion Gap 8 MMOL/L (8-16) 03/09/19 05:44 - Imaging Chest X-ray: Report Reviewed Cat Scan: Report Reviewed - Physical Examination Vital Signs: Vital Signs Temperature 98.6 F 03/09/19 08:40 Pulse Rate 82 03/09/19 08:40 Respiratory Rate 18 03/09/19 08:40 Blood Pressure 100/58 L 03/09/19 08:40 O2 Sat by Pulse Oximetry (%) 100 03/08/19 21:00 Constitutional: Yes: No Distress, Anxious Eyes: Yes: Conjunctiva Clear, EOM Intact HENT: Yes: Atraumatic, Normocephalic Neck: Yes: Supple, Trachea Midline Cardiovascular: Yes: Regular Rate and Rhythm Respiratory: Yes: CTA Bilaterally Gastrointestinal: Yes: Normal Bowel Sounds, Soft Renal/: Yes: WNL Extremities: Yes: Other (aka on left) Edema: No Wound/Incision: Yes: Clean/Dry, Well Approximated Neurological: Yes: Alert, Oriented Psychiatric: Yes: Alert, Oriented Assessment/Plan IMPRESSION REBA seems to be improving already with ivf/bhandari dm ckd anemia protein s def PAD s/p AKA ckd may be from htn and previous toxicity- note minimal proteinuria mild Rhabdo from unclear reason may have been retaining and is draining well with bhandari PLAN would continue hydration will need to reeval meds and see if they can be reduced continue bhandari drainage urology eval MV
--- NOTE | 2019-03-09 13:29 | EKG ---
Test Reason : Blood Pressure : / mmHG Vent. Rate : 113 BPM Atrial Rate : 113 BPM P-R Int : 130 ms QRS Dur : 090 ms QT Int : 320 ms P-R-T Axes : 045 008 068 degrees QTc Int : 438 ms SINUS TACHYCARDIA WITH FREQUENT PREMATURE VENTRICULAR COMPLEXES NONSPECIFIC T WAVE ABNORMALITY ABNORMAL ECG WHEN COMPARED WITH ECG OF 11-JAN-2019 00:46, NO SIGNIFICANT CHANGE WAS FOUND Confirmed by MD SANGEETHA, SARAHY ([id number]) on 03/09/2019 1:29:16 PM Referred By: Confirmed By:SARAHY VIVAS MD
--- NOTE | 2019-03-09 14:52 | PN ---
Progress Note (short form) - Note Progress Note: ID CONSULT DICTATED RLL PNEUMONIA R/O SEPSIS LEUKOCYTOSIS CKD SACRAL ULCER AWAIT C/S EMPIRIC ZITHROMAX/ CEFTRIAXONE VANCOMYCIN X 1 DOSE GIVEN
--- NOTE | 2019-03-09 15:09 | CONS ---
DATE OF CONSULTATION: DATE OF DICTATION: 03/09/2019 The patient is a 44-year-old female with multiple co-morbidities, evaluated for pneumonia. She was brought to the hospital by family members with 2-day history of worsening generalized weakness, lethargy, abdominal complaints, and anorexia. She was evaluated in the emergency room, where she was noted to have an elevated white blood cell count. A CAT scan of the abdomen and pelvis was performed and showed patchy airspace disease in the included lower lung field in the right base as well as atelectatic changes. There was no evidence of abdominal pathology. Cultures were obtained. She was empirically treated with vancomycin and Zosyn. At the present time, she is awake and alert. She has no focal complaints. She denies any chest pain, shortness of breath, or cough. She appears to be breathing comfortably on nasal cannula O2. She has multiple co-morbidities and has had multiple hospitalizations; however, the last hospitalization was approximately 2 months ago. Past medical history positive for peripheral vascular disease, coronary artery disease, and insulin-dependent diabetes mellitus, hyperlipidemia, stroke, chronic kidney disease, COPD. PAST SURGICAL HISTORY: Status post cholecystectomy. No known allergies. Medications at the present time include Tylenol, albuterol, aspirin, Lipitor, Flexeril, Colace, meclizine, Xarelto, vancomycin, Zosyn. SOCIAL HISTORY: She resides in the community. Former smoker. No known ill contacts. No recent travel. SYSTEMS REVIEW: Neurologic: No loss of consciousness, seizure activity, or focal weakness. Cardiac: Negative chest pain or palpitations. Respiratory: As per HPI. Gastrointestinal: Negative vomiting or diarrhea. Genitourinary: Negative for urinary tract infection. LABORATORY DATA: White count on admission 19,000, presently 10.5, hematocrit 31.8, platelet count 215. BUN 50, creatinine 2.5. Urinalysis: 1 white cell. Blood cultures preliminarily no growth. Wound culture positive for mixed organisms. PHYSICAL EXAMINATION: General: The patient is awake and alert, she is in no acute distress. Vital Signs: Afebrile. T-max 100.7. Blood pressure 100/58. Pulse 82, regular. Respirations 18 per minute. Eyes: Sclerae anicteric. Heart Sounds: S1, S2. Lungs: Clear. Abdomen: Soft. No tenderness elicited. Extremities: Left AKA noted with healed stump site. Genitourinary: Muro catheter in place. IMPRESSION: 1. Right lower lobe pneumonia, rule out sepsis secondary to right lower lobe infiltrate. 2. Leukocytosis. 3. Sacral ulcer. 4. Chronic kidney disease. Await cultures. Obtain sputum culture, urine Legionella antigen. Empiric antibiotic coverage with ceftriaxone and Zithromax. Patient was given a stat dose of vancomycin. Will check vancomycin level. Local wound care. Thank you for the kind referral. MARCELA NICHOLS M.D. [id number]
[2019-03-09] MEDS ORDERED: DEXTROSE 5%-WATER - 50 ML IVPB ONE (15:16)
[2019-03-09] MEDS: CEFTRIAXONE 2 GM in DEXTROSE 5%-WATER - 50 ML IVPB SCH (15:18)
[2019-03-09] MEDS: AZITHROMYCIN IVPB 500 MG/250 ML BAG IVPB SCH (15:19)
[2019-03-09] MEDS: SODIUM CHLORIDE 1,000 ML IV SCH (17:26)
[2019-03-09] MEDS: RIVAROXABAN 15 MG TABLET PO SCH (17:26)
[2019-03-09] MEDS: ATORVASTATIN CA 40 MG TABLET (FP) PO SCH (22:42)
[2019-03-09] MEDS: LIDOCAINE PATCH REMOVAL MC SCH (22:43)
[2019-03-09] MEDS: CYCLOBENZAPRINE HCL 10 MG TABLET (FP) PO PRN (22:49)
[2019-03-10] MEDS: POLYETHYLENE GLYCOL 3350 119 GM BTL PO SCH ×3 (06:23→21:43)
[2019-03-10] MEDS: INSULIN (LEVEMIR) 100 UNITS/ML UNITS SQ SCH (06:24)
[2019-03-10] MEDS: INSULIN SLIDING SCALE (NOVOLOG) 1 VIAL SQ SCH ×3 (06:24→17:34)
[2019-03-10] MEDS: PREGABALIN 75 MG CAPSULE PO SCH ×3 (06:24→21:41)
[2019-03-10] MEDS: ALBUTEROL SO4 0.083% IH SOL 2.5 MG/3 ML VIAL.NEB. NEB SCH ×4 (08:00→19:30)
[2019-03-10] MEDS: BUDESONIDE 0.25 MG/2ML INH SUSP VIAL NEB SCH ×2 (08:00→19:29)
[2019-03-10] MEDS ORDERED: PT OWN MED DRAWER 7, Y5N ONE (10:02)
[2019-03-10] MEDS ORDERED: DEXTROSE 5%-WATER - 50 ML IVPB ONE (10:03)
[2019-03-10] MEDS: LORazepam 0.5 MG TABLET PO SCH ×2 (10:16→21:41)
[2019-03-10] MEDS: DOCUSATE SODIUM 100 MG CAPSULE (FP) PO SCH ×2 (10:16→21:44)
[2019-03-10] MEDS: ASPIRIN COATED 81 MG TABLET.EC PO SCH (10:17)
[2019-03-10] MEDS: IRON POLYSACCHARIDES 150 MG CAPSULE PO SCH (10:18)
[2019-03-10] MEDS: CEFTRIAXONE 2 GM in DEXTROSE 5%-WATER - 50 ML IVPB SCH (10:18)
[2019-03-10] MEDS: LIDOCAINE 5% TOPICAL PATCH TP SCH (10:18)
[2019-03-10] MEDS: AZITHROMYCIN IVPB 500 MG/250 ML BAG IVPB SCH (10:19)
--- NOTE | 2019-03-10 11:41 | PN ---
Progress Note, Physician History of Present Illness: Pt seen and examined at bedside. She is awake and alert. She denies shortness of breath. - Current Medication List Current Medications: Active Medications Acetaminophen (Tylenol -) 650 mg PO Q6H PRN PRN Reason: FEVER Last Admin: 03/09/19 09:55 Dose: 650 mg Al Hydroxide/Mg Hydroxide (Mylanta Oral Suspension -) 30 ml PO Q6H PRN PRN Reason: DYSPEPSIA Albuterol Sulfate (Ventolin 0.083% Nebulizer Soln -) 1 amp NEB RQID [facility] Last Admin: 03/10/19 08:00 Dose: 1 amp Aspirin (Ecotrin -) 81 mg PO DAILY [facility] Last Admin: 03/10/19 10:17 Dose: 81 mg Atorvastatin Calcium (Lipitor -) 40 mg PO HS [facility] Last Admin: 03/09/19 22:42 Dose: 40 mg Budesonide (Pulmicort 0.25 Mg Nebulizer -) 1 amp NEB RBID [facility] Last Admin: 03/10/19 08:00 Dose: 1 amp Cyclobenzaprine HCl (Flexeril -) 10 mg PO BID PRN PRN Reason: MUSCLE SPASMS Last Admin: 03/09/19 22:49 Dose: 10 mg Docusate Sodium (Colace -) 100 mg PO BID [facility] Last Admin: 03/10/19 10:16 Dose: 100 mg Sodium Chloride (Normal Saline -) 1,000 mls @ 75 mls/hr IV ASDIR [facility] Last Admin: 03/09/19 17:26 Dose: 75 mls/hr Ceftriaxone Sodium 2 gm/ (Dextrose) 50 mls @ 100 mls/hr IVPB DAILY [facility]; Protocol Last Admin: 03/10/19 10:18 Dose: 100 mls/hr Azithromycin (Zithromax 500mg Ivpb (Pre-Docked)) 500 mg in 250 mls @ 250 mls/ hr IVPB DAILY [facility] Last Admin: 03/10/19 10:19 Dose: 250 mls/hr Insulin Aspart (Novolog Vial Sliding Scale -) 1 vial SQ TIDAC [facility]; Protocol Last Admin: 03/10/19 06:24 Dose: Not Given Insulin Detemir (Levemir Vial) 30 units SQ AM [facility] Last Admin: 03/10/19 06:24 Dose: 30 units Lidocaine (Lidoderm Patch -) 1 patch TP DAILY [facility] Last Admin: 03/10/19 10:18 Dose: 1 patch Lorazepam (Ativan -) 1 mg PO BID [facility] Last Admin: 03/10/19 10:16 Dose: 1 mg Meclizine HCl (Antivert -) 25 mg PO TID PRN PRN Reason: VERTIGO Miscellaneous (Lidoderm Patch Removal) 1 each MC DAILY@2200 [facility] Last Admin: 03/09/19 22:43 Dose: 1 each Polyethylene Glycol (Miralax (For Daily Use) -) 17 gm PO TID [facility] Last Admin: 03/10/19 06:23 Dose: 17 gm Polysaccharide Iron Complex (Niferex-150 -) 150 mg PO DAILY [facility] Last Admin: 03/10/19 10:18 Dose: 150 mg Pregabalin (Lyrica -) 150 mg PO TID [facility] Last Admin: 03/10/19 06:24 Dose: 150 mg Rivaroxaban (Xarelto) 15 mg PO 1800 [facility] Last Admin: 03/09/19 17:26 Dose: 15 mg - Objective Vital Signs: Vital Signs Temperature 97.9 F 03/10/19 06:00 Pulse Rate 71 03/10/19 06:00 Respiratory Rate 17 03/10/19 06:00 Blood Pressure 128/71 03/10/19 06:00 O2 Sat by Pulse Oximetry (%) 100 03/09/19 21:00 Constitutional: Yes: Calm Eyes: Yes: Conjunctiva Clear HENT: Yes: Atraumatic Neck: Yes: Supple Cardiovascular: Yes: S1, S2 Respiratory: Yes: CTA Bilaterally Gastrointestinal: Yes: Soft Genitourinary: Yes: WNL Musculoskeletal: Yes: Other (left aka) Edema: No Integumentary: Yes: WNL Neurological: Yes: Oriented Psychiatric: Yes: Oriented Labs: CBC, BMP 03/09/19 05:44 03/09/19 05:44 INR, PTT INR 1.00 (0.83-1.09) 03/08/19 08:30 Problem List - Problems (1) REBA (acute kidney injury) Code(s): N17.9 - ACUTE KIDNEY FAILURE, UNSPECIFIED (2) Elevated CK Code(s): R74.8 - ABNORMAL LEVELS OF OTHER SERUM ENZYMES Assessment/Plan Current Medications Generic Name Dose Route Start Last Admin Trade Name Freq PRN Reason Stop Dose Admin Acetaminophen 650 mg 03/08/19 16:17 03/09/19 09:55 Tylenol - PO 650 mg Q6H PRN Administration FEVER Al Hydroxide/Mg Hydroxide 30 ml 03/08/19 16:17 Mylanta Oral Suspension - PO Q6H PRN DYSPEPSIA Albuterol Sulfate 1 amp 03/08/19 20:00 03/10/19 08:00 Ventolin 0.083% Nebulizer Soln - NEB 1 amp RQID [facility] Administration Aspirin 81 mg 03/09/19 10:00 03/10/19 10:17 Ecotrin - PO 81 mg DAILY [facility] Administration Atorvastatin Calcium 40 mg 03/08/19 22:00 03/09/19 22:42 Lipitor - PO 40 mg HS [facility] Administration Budesonide 1 amp 03/08/19 20:00 03/10/19 08:00 Pulmicort 0.25 Mg Nebulizer - NEB 1 amp RBID [facility] Administration Cyclobenzaprine HCl 10 mg 03/08/19 16:17 03/09/19 22:49 Flexeril - PO 10 mg BID PRN Administration MUSCLE SPASMS Docusate Sodium 100 mg 03/08/19 22:00 03/10/19 10:16 Colace - PO 100 mg BID [facility] Administration Sodium Chloride 1,000 mls @ 75 mls/hr 03/08/19 16:30 03/09/19 17:26 Normal Saline - IV 75 mls/hr ASDIR [facility] Administration Ceftriaxone Sodium 2 gm/ 50 mls @ 100 mls/hr 03/09/19 15:00 03/10/19 10:18 Dextrose IVPB 100 mls/hr DAILY [facility] Administration Protocol Azithromycin 500 mg in 250 mls @ 250 mls/hr 03/09/19 15:00 03/10/19 10:19 Zithromax 500mg Ivpb (Pre-Docked) IVPB 250 mls/hr DAILY [facility] Administration Insulin Aspart 1 vial 03/08/19 16:30 03/10/19 06:24 Novolog Vial Sliding Scale - SQ Not Given TIDAC [facility] Protocol Insulin Detemir 30 units 03/09/19 07:00 03/10/19 06:24 Levemir Vial SQ 30 units AM [facility] Administration Lidocaine 1 patch 03/09/19 10:00 03/10/19 10:18 Lidoderm Patch - TP 1 patch DAILY [facility] Administration Lorazepam 1 mg 03/08/19 22:00 03/10/19 10:16 Ativan - PO 1 mg BID [facility] Administration Meclizine HCl 25 mg 03/08/19 16:17 Antivert - PO TID PRN V[facility]IGO Miscellaneous 1 each 03/08/19 22:00 03/09/19 22:43 Lidoderm Patch Removal MC 1 each DAILY@2200 [facility] Administration Polyethylene Glycol 17 gm 03/08/19 22:00 03/10/19 06:23 Miralax (For Daily Use) - PO 17 gm TID [facility] Administration Polysaccharide Iron Complex 150 mg 03/09/19 10:00 03/10/19 10:18 Niferex-150 - PO 150 mg DAILY [facility] Administration Pregabalin 150 mg 03/08/19 22:00 03/10/19 06:24 Lyrica - PO 150 mg TID [facility] Administration Rivaroxaban 15 mg 03/09/19 18:00 03/09/19 17:26 Xarelto PO 15 mg 1800 [facility] Administration Laboratory Tests 01/14/19 01/15/19 01/16/19 06:00 06:30 07:00 Creatinine 1.2 1.3 1.3 Creatine Kinase Urine Protein Urine Blood 03/08/19 03/08/19 03/09/19 08:30 08:30 05:44 Creatinine 4.8 H 2.5 H Creatine Kinase Urine Protein 1+ H Urine Blood Trace 03/09/19 05:44 Creatinine Creatine Kinase 3474 H Urine Protein Urine Blood Impression 1. REBA 2. CKD 3. PVD 4. DM 5. protein s def 6. urinary retention 7. CAD 8. PVD 9. rhabdo Plan - renal function is improving - check bmp - cont fluids - check cpk - monitor urine output
[2019-03-10] MEDS ORDERED: INSULIN (NOVOLOG) ASPART 100 UNITS/ML 10ML VIAL ONE (12:13)
--- NOTE | 2019-03-10 13:03 | PN ---
Progress Note, Physician History of Present Illness: AWAKE, ALERT NO COMPLAINTS DENIES CP/ DYSPNEA/ COUGH NO FEVER/CHILLS AFEBRILE WBC IMPROVED BC (-)\ WOUND C/S MIXED - Current Medication List Current Medications: Active Medications Acetaminophen (Tylenol -) 650 mg PO Q6H PRN PRN Reason: FEVER Last Admin: 03/09/19 09:55 Dose: 650 mg Al Hydroxide/Mg Hydroxide (Mylanta Oral Suspension -) 30 ml PO Q6H PRN PRN Reason: DYSPEPSIA Albuterol Sulfate (Ventolin 0.083% Nebulizer Soln -) 1 amp NEB RQID [facility] Last Admin: 03/10/19 11:57 Dose: 1 amp Aspirin (Ecotrin -) 81 mg PO DAILY [facility] Last Admin: 03/10/19 10:17 Dose: 81 mg Atorvastatin Calcium (Lipitor -) 40 mg PO HS [facility] Last Admin: 03/09/19 22:42 Dose: 40 mg Budesonide (Pulmicort 0.25 Mg Nebulizer -) 1 amp NEB RBID [facility] Last Admin: 03/10/19 08:00 Dose: 1 amp Cyclobenzaprine HCl (Flexeril -) 10 mg PO BID PRN PRN Reason: MUSCLE SPASMS Last Admin: 03/09/19 22:49 Dose: 10 mg Docusate Sodium (Colace -) 100 mg PO BID [facility] Last Admin: 03/10/19 10:16 Dose: 100 mg Sodium Chloride (Normal Saline -) 1,000 mls @ 75 mls/hr IV ASDIR [facility] Last Admin: 03/09/19 17:26 Dose: 75 mls/hr Ceftriaxone Sodium 2 gm/ (Dextrose) 50 mls @ 100 mls/hr IVPB DAILY [facility]; Protocol Last Admin: 03/10/19 10:18 Dose: 100 mls/hr Azithromycin (Zithromax 500mg Ivpb (Pre-Docked)) 500 mg in 250 mls @ 250 mls/ hr IVPB DAILY [facility] Last Admin: 03/10/19 10:19 Dose: 250 mls/hr Insulin Aspart (Novolog Vial Sliding Scale -) 1 vial SQ TIDAC [facility]; Protocol Last Admin: 03/10/19 12:17 Dose: 6 units Insulin Detemir (Levemir Vial) 30 units SQ AM [facility] Last Admin: 03/10/19 06:24 Dose: 30 units Lidocaine (Lidoderm Patch -) 1 patch TP DAILY [facility] Last Admin: 03/10/19 10:18 Dose: 1 patch Lorazepam (Ativan -) 1 mg PO BID [facility] Last Admin: 03/10/19 10:16 Dose: 1 mg Meclizine HCl (Antivert -) 25 mg PO TID PRN PRN Reason: VERTIGO Miscellaneous (Lidoderm Patch Removal) 1 each MC DAILY@2200 [facility] Last Admin: 03/09/19 22:43 Dose: 1 each Polyethylene Glycol (Miralax (For Daily Use) -) 17 gm PO TID [facility] Last Admin: 03/10/19 06:23 Dose: 17 gm Polysaccharide Iron Complex (Niferex-150 -) 150 mg PO DAILY [facility] Last Admin: 03/10/19 10:18 Dose: 150 mg Pregabalin (Lyrica -) 150 mg PO TID [facility] Last Admin: 03/10/19 06:24 Dose: 150 mg Rivaroxaban (Xarelto) 15 mg PO 1800 [facility] Last Admin: 03/09/19 17:26 Dose: 15 mg - Objective Vital Signs: Vital Signs Temperature 98 F 03/10/19 10:00 Pulse Rate 86 03/10/19 10:00 Respiratory Rate 18 03/10/19 10:00 Blood Pressure 132/76 03/10/19 10:00 O2 Sat by Pulse Oximetry (%) 100 03/09/19 21:00 Constitutional: Yes: No Distress Cardiovascular: Yes: Regular Rate and Rhythm, S1, S2 Respiratory: Yes: CTA Bilaterally Gastrointestinal: Yes: Normal Bowel Sounds, Soft. No: Tenderness Labs: CBC, BMP 03/09/19 05:44 03/09/19 05:44 INR, PTT INR 1.00 (0.83-1.09) 03/08/19 08:30 Assessment/Plan PNEUMONIA LEUKOCYTOSIS IMPROVED CKD + WOUND C/S ? SIGNIFICANCE CONTINUE ZITHROMAX/ CEFTRIAXONE LOCAL WOUND CARE
--- NOTE | 2019-03-10 14:13 | PN ---
Progress Note, Physician Chief Complaint: Weakness REBA Elevated CK Positive WOund Culture History of Present Illness: Previous notes and events reviewed awake and alert NAD WBC trending down afebrile BC, UC neg positive wound culture - Current Medication List Current Medications: Active Medications Acetaminophen (Tylenol -) 650 mg PO Q6H PRN PRN Reason: FEVER Last Admin: 03/09/19 09:55 Dose: 650 mg Al Hydroxide/Mg Hydroxide (Mylanta Oral Suspension -) 30 ml PO Q6H PRN PRN Reason: DYSPEPSIA Albuterol Sulfate (Ventolin 0.083% Nebulizer Soln -) 1 amp NEB RQID [facility] Last Admin: 03/10/19 11:57 Dose: 1 amp Aspirin (Ecotrin -) 81 mg PO DAILY [facility] Last Admin: 03/10/19 10:17 Dose: 81 mg Atorvastatin Calcium (Lipitor -) 40 mg PO HS [facility] Last Admin: 03/09/19 22:42 Dose: 40 mg Budesonide (Pulmicort 0.25 Mg Nebulizer -) 1 amp NEB RBID [facility] Last Admin: 03/10/19 08:00 Dose: 1 amp Cyclobenzaprine HCl (Flexeril -) 10 mg PO BID PRN PRN Reason: MUSCLE SPASMS Last Admin: 03/09/19 22:49 Dose: 10 mg Docusate Sodium (Colace -) 100 mg PO BID [facility] Last Admin: 03/10/19 10:16 Dose: 100 mg Sodium Chloride (Normal Saline -) 1,000 mls @ 75 mls/hr IV ASDIR [facility] Last Admin: 03/09/19 17:26 Dose: 75 mls/hr Ceftriaxone Sodium 2 gm/ (Dextrose) 50 mls @ 100 mls/hr IVPB DAILY [facility]; Protocol Last Admin: 03/10/19 10:18 Dose: 100 mls/hr Azithromycin (Zithromax 500mg Ivpb (Pre-Docked)) 500 mg in 250 mls @ 250 mls/ hr IVPB DAILY [facility] Last Admin: 03/10/19 10:19 Dose: 250 mls/hr Insulin Aspart (Novolog Vial Sliding Scale -) 1 vial SQ TIDAC [facility]; Protocol Last Admin: 03/10/19 12:17 Dose: 6 units Insulin Detemir (Levemir Vial) 30 units SQ AM [facility] Last Admin: 03/10/19 06:24 Dose: 30 units Lidocaine (Lidoderm Patch -) 1 patch TP DAILY [facility] Last Admin: 03/10/19 10:18 Dose: 1 patch Lorazepam (Ativan -) 1 mg PO BID [facility] Last Admin: 03/10/19 10:16 Dose: 1 mg Meclizine HCl (Antivert -) 25 mg PO TID PRN PRN Reason: VERTIGO Miscellaneous (Lidoderm Patch Removal) 1 each MC DAILY@2200 [facility] Last Admin: 03/09/19 22:43 Dose: 1 each Polyethylene Glycol (Miralax (For Daily Use) -) 17 gm PO TID [facility] Last Admin: 03/10/19 06:23 Dose: 17 gm Polysaccharide Iron Complex (Niferex-150 -) 150 mg PO DAILY [facility] Last Admin: 03/10/19 10:18 Dose: 150 mg Pregabalin (Lyrica -) 150 mg PO TID [facility] Last Admin: 03/10/19 06:24 Dose: 150 mg Rivaroxaban (Xarelto) 15 mg PO 1800 [facility] Last Admin: 03/09/19 17:26 Dose: 15 mg - Objective Vital Signs: Vital Signs Temperature 98 F 03/10/19 10:00 Pulse Rate 86 03/10/19 10:00 Respiratory Rate 18 03/10/19 10:00 Blood Pressure 132/76 03/10/19 10:00 O2 Sat by Pulse Oximetry (%) 100 03/09/19 21:00 Constitutional: Yes: No Distress, Calm Eyes: Yes: Conjunctiva Clear HENT: Yes: Atraumatic Cardiovascular: Yes: Regular Rate and Rhythm Respiratory: Yes: Diminished, On Nasal O2 Gastrointestinal: Yes: Normal Bowel Sounds, Soft, Abdomen, Obese Genitourinary: Yes: Muro Present Musculoskeletal: Yes: Muscle Weakness Extremities: Yes: Other (L AKA) Edema: No Integumentary: Yes: Pressure Ulcer (sacral) Neurological: Yes: Alert, Oriented Psychiatric: Yes: Alert, Oriented Labs: CBC, BMP 03/09/19 05:44 INR, PTT INR 1.00 (0.83-1.09) 03/08/19 08:30 Microbiology 03/08/19 07:58 Ulcer Gram Stain - Final 03/08/19 07:58 Ulcer Wound Culture - Preliminary Staphylococcus Aureus Proteus Mirabilus - Esbl Produ Corynebacterium Species 03/08/19 07:58 Blood - Peripheral Venous Blood Culture - Preliminary NO GROWTH OBTAINED AFTER 48 HOURS, INCUBATION TO CONTINUE FOR 3 DAYS. 03/08/19 07:40 Blood - Peripheral Venous Blood Culture - Preliminary NO GROWTH OBTAINED AFTER 48 HOURS, INCUBATION TO CONTINUE FOR 3 DAYS. 03/08/19 07:58 Urine - Urine Muro Urine Culture - Final NO GROWTH OBTAINED Problem List - Problems (1) REBA (acute kidney injury) Assessment/Plan: -BUN 21.9 -Renal on board -IV hydration -monitor renal function Code(s): N17.9 - ACUTE KIDNEY FAILURE, UNSPECIFIED (2) Elevated CK Assessment/Plan: -CK downtrend from 6360 to 1311 -IV hydration -monitor CK level -tele monitoring Code(s): R74.8 - ABNORMAL LEVELS OF OTHER SERUM ENZYMES (3) Metabolic acidosis Code(s): E87.2 - ACIDOSIS (4) Right lower lobe pneumonia Assessment/Plan: -CXR shows lower lung demonstrates airspace opacities suggestive of infiltrates -ID on board -Leukocytosis -afebrile -Azithromycin and Ceftriaxone -BC neg Code(s): J18.1 - LOBAR PNEUMONIA, UNSPECIFIED ORGANISM (5) Sacral decubitus ulcer Assessment/Plan: -wound culture positive -ID on board -leukocytosis -Ceftriaxone -afebrile -turn q2h Code(s): L89.159 - PRESSURE ULCER OF SACRAL REGION, UNSPECIFIED STAGE (6) CAD (coronary artery disease) Assessment/Plan: -atorvastatin Code(s): I25.10 - ATHSCL HEART DISEASE OF [place] CORONARY ARTERY W/O ANG PCTRS Qualifiers: Coronary Disease-Associated Artery/Lesion type: coronary artery bypass graft Associated angina: without angina pectoris (7) COPD (chronic obstructive pulmonary disease) Assessment/Plan: -pulm consult -O2 via NC -keep SpO2 >90% -Budesonide Code(s): J44.9 - CHRONIC OBSTRUCTIVE PULMONARY DISEASE, UNSPECIFIED Qualifiers: Emphysema type: unspecified (8) Type 2 diabetes mellitus with other diabetic kidney complication Assessment/Plan: -BGM ACHS -Levemir -ISS -diabetic diet Code(s): E11.29 - TYPE 2 DIABETES MELLITUS W OTH DIABETIC KIDNEY COMPLICATION (9) Anemia Assessment/Plan: -Iron Polysaccharide -Hg 10.1 -monitor Hg daily Code(s): D64.9 - ANEMIA, UNSPECIFIED Qualifiers: Anemia type: unspecified type Qualified Code(s): D64.9 - Anemia, unspecified (10) Cerebrovascular accident Assessment/Plan: -Xarelto Code(s): I63.9 - CEREBRAL INFARCTION, UNSPECIFIED (11) HLD (hyperlipidemia) Assessment/Plan: -Atorvastatin Code(s): E78.5 - HYPERLIPIDEMIA, UNSPECIFIED Qualifiers: Hyperlipidemia type: pure hypercholesterolemia Qualified Code(s): E78.00 - Pure hypercholesterolemia, unspecified; E78.0 - Pure hypercholesterolemia Assessment/Plan see problem list
[2019-03-10 15:00] LABS: ALBUMIN 2.2 g/dl (3.4-5.0); BILIRUBIN,TOTAL 0.1 mg/dL (0.2-1); BLOOD UREA NITROGEN 21.9 mg/dL (7-18); CALCIUM 7.8 mg/dL (8.5-10.1); CREATININE 1.3 mg/dL (0.55-1.3); POTASSIUM 4.5 mmol/L (3.5-5.1); TOT PROT 6.6 g/dl (6.4-8.2)
[2019-03-10] MEDS: SODIUM CHLORIDE 1,000 ML IV SCH (17:34)
[2019-03-10] MEDS: RIVAROXABAN 15 MG TABLET PO SCH (17:35)
[2019-03-10] MEDS ORDERED: oxyCODONE HCL 5 MG TABLET PO ONE (21:08)
[2019-03-10] MEDS: LIDOCAINE PATCH REMOVAL MC SCH (21:41)
[2019-03-10] MEDS: ATORVASTATIN CA 40 MG TABLET (FP) PO SCH (21:41)
[2019-03-11] MEDS: PREGABALIN 75 MG CAPSULE PO SCH ×3 (06:14→22:37)
[2019-03-11] MEDS: POLYETHYLENE GLYCOL 3350 119 GM BTL PO SCH ×3 (06:14→22:38)
[2019-03-11] MEDS: INSULIN SLIDING SCALE (NOVOLOG) 1 VIAL SQ SCH ×3 (06:15→18:08)
[2019-03-11] MEDS: INSULIN (LEVEMIR) 100 UNITS/ML UNITS SQ SCH (06:21)
[2019-03-11 07:08] LABS: HEMATOCRIT 29.8 % (32.4-45.2); HEMOGLOBIN 9.5 GM/dL (10.7-15.3); MCH 26.8 pg (25.7-33.7); MEAN CELL VOLUME 83.9 fl (80-96); MEAN PLT VOLUME 9.7 fl (7.5-11.1); PLATELET COUNT 187 K/MM3 (134-434); RBC 3.55 M/mm3 (3.60-5.2); RDW 16.6 % (11.6-15.6); WHITE BLOOD COUNT 11.8 K/mm3 (4.0-10.0)
[2019-03-11 07:59] LABS: ALBUMIN 2.1 g/dl (3.4-5.0); BILIRUBIN,TOTAL 0.8 mg/dL (0.2-1); CALCIUM 7.9 mg/dL (8.5-10.1); CREATININE 1.1 mg/dL (0.55-1.3); POTASSIUM 4.2 mmol/L (3.5-5.1); TOT PROT 6.2 g/dl (6.4-8.2)
[2019-03-11] MEDS: BUDESONIDE 0.25 MG/2ML INH SUSP VIAL NEB SCH ×2 (09:00→21:51)
[2019-03-11] MEDS: ALBUTEROL SO4 0.083% IH SOL 2.5 MG/3 ML VIAL.NEB. NEB SCH ×4 (09:00→21:45)
[2019-03-11] MEDS ORDERED: PT OWN MED DRAWER 7, Y5N ONE (10:14)
[2019-03-11] MEDS: LORazepam 0.5 MG TABLET PO SCH ×2 (10:49→22:37)
[2019-03-11] MEDS: DOCUSATE SODIUM 100 MG CAPSULE (FP) PO SCH ×2 (10:50→22:38)
[2019-03-11] MEDS: ASPIRIN COATED 81 MG TABLET.EC PO SCH (10:50)
[2019-03-11] MEDS: IRON POLYSACCHARIDES 150 MG CAPSULE PO SCH (10:51)
[2019-03-11] MEDS: LIDOCAINE 5% TOPICAL PATCH TP SCH (10:51)
[2019-03-11] MEDS: CEFTRIAXONE 2 GM in DEXTROSE 5%-WATER - 50 ML IVPB SCH ×2 (10:51→13:11)
[2019-03-11] MEDS: AZITHROMYCIN IVPB 500 MG/250 ML BAG IVPB SCH ×2 (10:51→11:19)
--- NOTE | 2019-03-11 11:13 | PN ---
Progress Note, Physician Chief Complaint: Weakness REBA Elevated CK Positive Wound Culture History of Present Illness: NAD in bed - Current Medication List Current Medications: Active Medications Acetaminophen (Tylenol -) 650 mg PO Q6H PRN PRN Reason: FEVER Last Admin: 03/09/19 09:55 Dose: 650 mg Al Hydroxide/Mg Hydroxide (Mylanta Oral Suspension -) 30 ml PO Q6H PRN PRN Reason: DYSPEPSIA Albuterol Sulfate (Ventolin 0.083% Nebulizer Soln -) 1 amp NEB RQID [facility] Last Admin: 03/11/19 09:00 Dose: 1 amp Aspirin (Ecotrin -) 81 mg PO DAILY [facility] Last Admin: 03/11/19 10:50 Dose: 81 mg Atorvastatin Calcium (Lipitor -) 40 mg PO HS [facility] Last Admin: 03/10/19 21:41 Dose: 40 mg Budesonide (Pulmicort 0.25 Mg Nebulizer -) 1 amp NEB RBID [facility] Last Admin: 03/11/19 09:00 Dose: 1 amp Cyanocobalamin (Vitamin B12 Injection -) 1,000 mcg IM DAILY [facility] Cyclobenzaprine HCl (Flexeril -) 10 mg PO BID PRN PRN Reason: MUSCLE SPASMS Last Admin: 03/09/19 22:49 Dose: 10 mg Docusate Sodium (Colace -) 100 mg PO BID [facility] Last Admin: 03/11/19 10:50 Dose: 100 mg Sodium Chloride (Normal Saline -) 1,000 mls @ 75 mls/hr IV ASDIR [facility] Last Admin: 03/10/19 17:34 Dose: 75 mls/hr Ceftriaxone Sodium 2 gm/ (Dextrose) 50 mls @ 100 mls/hr IVPB DAILY [facility]; Protocol Last Admin: 03/11/19 10:51 Dose: Not Given Azithromycin (Zithromax 500mg Ivpb (Pre-Docked)) 500 mg in 250 mls @ 250 mls/ hr IVPB DAILY [facility] Last Admin: 03/11/19 10:51 Dose: Not Given Insulin Aspart (Novolog Vial Sliding Scale -) 1 vial SQ TIDAC [facility]; Protocol Last Admin: 03/11/19 06:15 Dose: Not Given Insulin Detemir (Levemir Vial) 30 units SQ AM [facility] Last Admin: 03/11/19 06:21 Dose: 30 units Lidocaine (Lidoderm Patch -) 1 patch TP DAILY [facility] Last Admin: 03/11/19 10:51 Dose: 1 patch Lorazepam (Ativan -) 1 mg PO BID [facility] Last Admin: 03/11/19 10:49 Dose: 1 mg Meclizine HCl (Antivert -) 25 mg PO TID PRN PRN Reason: VERTIGO Miscellaneous (Lidoderm Patch Removal) 1 each MC DAILY@2200 [facility] Last Admin: 03/10/19 21:41 Dose: 1 each Polyethylene Glycol (Miralax (For Daily Use) -) 17 gm PO TID [facility] Last Admin: 03/11/19 06:14 Dose: Not Given Polysaccharide Iron Complex (Niferex-150 -) 150 mg PO DAILY [facility] Last Admin: 03/11/19 10:51 Dose: 150 mg Pregabalin (Lyrica -) 150 mg PO TID [facility] Last Admin: 03/11/19 06:14 Dose: 150 mg Rivaroxaban (Xarelto) 15 mg PO 1800 [facility] Last Admin: 03/10/19 17:35 Dose: 15 mg - Objective Vital Signs: Vital Signs Temperature 98.3 F 03/11/19 10:00 Pulse Rate 83 03/11/19 10:00 Respiratory Rate 18 03/11/19 10:00 Blood Pressure 121/67 03/11/19 10:00 O2 Sat by Pulse Oximetry (%) 98 03/11/19 09:00 Constitutional: Yes: Well Nourished, No Distress, Calm Cardiovascular: Yes: Regular Rate and Rhythm Respiratory: Yes: Regular Gastrointestinal: Yes: Normal Bowel Sounds, Soft, Abdomen, Obese Genitourinary: Yes: Muro Present Musculoskeletal: Yes: Muscle Weakness Extremities: Yes: WNL Edema: No Peripheral Pulses WNL: Yes Wound/Incision: Yes: Dressing Dry and Intact Neurological: Yes: Alert, Pre-Existing Deficit Psychiatric: Yes: Alert Labs: CBC, BMP 03/11/19 06:00 03/11/19 05:25 INR, PTT INR 1.00 (0.83-1.09) 03/08/19 08:30 Assessment/Plan (1) REBA (acute kidney injury) Assessment/Plan: -Cr trending down -Renal on board -IV hydration -monitor renal function Code(s): N17.9 - ACUTE KIDNEY FAILURE, UNSPECIFIED (2) Elevated CK Assessment/Plan: -IV hydration -monitor CK level -tele monitoring Code(s): R74.8 - ABNORMAL LEVELS OF OTHER SERUM ENZYMES (3) Metabolic acidosis Code(s): E87.2 - ACIDOSIS (4) Right lower lobe pneumonia Assessment/Plan: -CXR shows lower lung demonstrates airspace opacities suggestive of infiltrates -ID on board -Leukocytosis -afebrile -Azithromycin and Ceftriaxone -BC neg Code(s): J18.1 - LOBAR PNEUMONIA, UNSPECIFIED ORGANISM (5) Sacral decubitus ulcer Assessment/Plan: -wound culture positive -ID on board -leukocytosis -Ceftriaxone + azithro IVPB -afebrile -turn q2h Code(s): L89.159 - PRESSURE ULCER OF SACRAL REGION, UNSPECIFIED STAGE (6) CAD (coronary artery disease) Assessment/Plan: -atorvastatin Code(s): I25.10 - ATHSCL HEART DISEASE OF [place] CORONARY ARTERY W/O ANG PCTRS Qualifiers: Coronary Disease-Associated Artery/Lesion type: coronary artery bypass graft Associated angina: without angina pectoris (7) COPD (chronic obstructive pulmonary disease) Assessment/Plan: -pulm consult -O2 via NC -keep SpO2 >90% -Budesonide -bronchodilators Code(s): J44.9 - CHRONIC OBSTRUCTIVE PULMONARY DISEASE, UNSPECIFIED Qualifiers: Emphysema type: unspecified (8) Type 2 diabetes mellitus with other diabetic kidney complication Assessment/Plan: -BGM ACHS -Levemir -ISS -diabetic diet -A1c 8.8 on 01/11/19 Code(s): E11.29 - TYPE 2 DIABETES MELLITUS W OTH DIABETIC KIDNEY COMPLICATION (9) Anemia Assessment/Plan: -likely dilutional -Previously low in iron and B12 -repeat iron, Thyroid, folate and stool OB Code(s): D64.9 - ANEMIA, UNSPECIFIED Qualifiers: Anemia type: unspecified type Qualified Code(s): D64.9 - Anemia, unspecified (10) Cerebrovascular accident Assessment/Plan: -Xarelto Code(s): I63.9 - CEREBRAL INFARCTION, UNSPECIFIED (11) HLD (hyperlipidemia) Assessment/Plan: -Atorvastatin Code(s): E78.5 - HYPERLIPIDEMIA, UNSPECIFIED Qualifiers: Hyperlipidemia type: pure hypercholesterolemia Qualified Code(s): E78.00 - Pure hypercholesterolemia, unspecified; E78.0 - Pure hypercholesterolemia
--- NOTE | 2019-03-11 11:47 | PN ---
Progress Note (short form) - Note Progress Note: PULMONARY CONSULTATION DICTATED 03/11/19 IMP ALTERED MENTAL STATUS PNEUMONIA IDDM COPD ACUTE ON CKD METABOLIC ACIDOSIS PROTEIN S DEFICIENCY SACRAL DECUBITUS PAD S/P LEFT AKA ASHD S/P MT,STENT H/O CVA HTN RHABDOMYOLYSIS + H/O TOBACCO ABUSE QUIT 2YRS AGO PLAN IV ABX INHALED BRONCHODILATORS O2 IVF MONITOR LYTES,RENAL FUNCTION CHEST CT ABG TREND CK DR BERTRAND Problem List - Problems (1) REBA (acute kidney injury) Code(s): N17.9 - ACUTE KIDNEY FAILURE, UNSPECIFIED (2) Elevated CK Code(s): R74.8 - ABNORMAL LEVELS OF OTHER SERUM ENZYMES (3) Metabolic acidosis Code(s): E87.2 - ACIDOSIS (4) Right lower lobe pneumonia Code(s): J18.1 - LOBAR PNEUMONIA, UNSPECIFIED ORGANISM (5) Sacral decubitus ulcer Code(s): L89.159 - PRESSURE ULCER OF SACRAL REGION, UNSPECIFIED STAGE (6) Acute kidney injury superimposed on chronic kidney disease Code(s): N17.9 - ACUTE KIDNEY FAILURE, UNSPECIFIED; N18.9 - CHRONIC KIDNEY DISEASE, UNSPECIFIED (7) Altered mental state Code(s): R41.82 - ALTERED MENTAL STATUS, UNSPECIFIED Qualifiers: Altered mental status type: somnolence Qualified Code(s): R40.0 - Somnolence (8) Anemia Code(s): D64.9 - ANEMIA, UNSPECIFIED Qualifiers: Anemia type: unspecified type Qualified Code(s): D64.9 - Anemia, unspecified (9) CAD (coronary artery disease) Code(s): I25.10 - ATHSCL HEART DISEASE OF [place] CORONARY ARTERY W/O ANG PCTRS Qualifiers: Coronary Disease-Associated Artery/Lesion type: coronary artery bypass graft Associated angina: without angina pectoris (10) COPD (chronic obstructive pulmonary disease) Code(s): J44.9 - CHRONIC OBSTRUCTIVE PULMONARY DISEASE, UNSPECIFIED Qualifiers: Emphysema type: unspecified (11) Cerebrovascular accident Code(s): I63.9 - CEREBRAL INFARCTION, UNSPECIFIED (12) HLD (hyperlipidemia) Code(s): E78.5 - HYPERLIPIDEMIA, UNSPECIFIED Qualifiers: Hyperlipidemia type: pure hypercholesterolemia Qualified Code(s): E78.00 - Pure hypercholesterolemia, unspecified; E78.0 - Pure hypercholesterolemia (13) Hypercoagulable state Code(s): D68.59 - OTHER PRIMARY THROMBOPHILIA (14) Peripheral arterial disease Code(s): I73.9 - PERIPHERAL VASCULAR DISEASE, UNSPECIFIED (15) Sepsis Code(s): A41.9 - SEPSIS, UNSPECIFIED ORGANISM
[2019-03-11] MEDS ORDERED: DEXTROSE 5%-WATER - 50 ML IVPB ONE (13:06)
[2019-03-11] MEDS: CYANOCOBALAMIN (VITAMIN B-12) 1000 MCG/1 ML VIAL IM SCH (13:12)
--- NOTE | 2019-03-11 13:29 | PN ---
Progress Note, Physician History of Present Illness: Pt seen and examined at bedside. She is awake and alert. She denies shortness of breath. - Current Medication List Current Medications: Active Medications Acetaminophen (Tylenol -) 650 mg PO Q6H PRN PRN Reason: FEVER Last Admin: 03/09/19 09:55 Dose: 650 mg Al Hydroxide/Mg Hydroxide (Mylanta Oral Suspension -) 30 ml PO Q6H PRN PRN Reason: DYSPEPSIA Albuterol Sulfate (Ventolin 0.083% Nebulizer Soln -) 1 amp NEB RQID [facility] Last Admin: 03/11/19 09:00 Dose: 1 amp Aspirin (Ecotrin -) 81 mg PO DAILY [facility] Last Admin: 03/11/19 10:50 Dose: 81 mg Atorvastatin Calcium (Lipitor -) 40 mg PO HS [facility] Last Admin: 03/10/19 21:41 Dose: 40 mg Budesonide (Pulmicort 0.25 Mg Nebulizer -) 1 amp NEB RBID [facility] Last Admin: 03/11/19 09:00 Dose: 1 amp Cyanocobalamin (Vitamin B12 Injection -) 1,000 mcg IM DAILY [facility] Last Admin: 03/11/19 13:12 Dose: 1,000 mcg Cyclobenzaprine HCl (Flexeril -) 10 mg PO BID PRN PRN Reason: MUSCLE SPASMS Last Admin: 03/09/19 22:49 Dose: 10 mg Docusate Sodium (Colace -) 100 mg PO BID [facility] Last Admin: 03/11/19 10:50 Dose: 100 mg Sodium Chloride (Normal Saline -) 1,000 mls @ 75 mls/hr IV ASDIR [facility] Last Admin: 03/10/19 17:34 Dose: 75 mls/hr Ceftriaxone Sodium 2 gm/ (Dextrose) 50 mls @ 100 mls/hr IVPB DAILY [facility]; Protocol Last Admin: 03/11/19 13:11 Dose: 100 mls/hr Azithromycin (Zithromax 500mg Ivpb (Pre-Docked)) 500 mg in 250 mls @ 250 mls/ hr IVPB DAILY [facility] Last Admin: 03/11/19 11:19 Dose: 250 mls/hr Insulin Aspart (Novolog Vial Sliding Scale -) 1 vial SQ TIDAC [facility]; Protocol Last Admin: 03/11/19 12:30 Dose: Not Given Insulin Detemir (Levemir Vial) 30 units SQ AM [facility] Last Admin: 03/11/19 06:21 Dose: 30 units Lidocaine (Lidoderm Patch -) 1 patch TP DAILY [facility] Last Admin: 03/11/19 10:51 Dose: 1 patch Lorazepam (Ativan -) 1 mg PO BID [facility] Last Admin: 03/11/19 10:49 Dose: 1 mg Meclizine HCl (Antivert -) 25 mg PO TID PRN PRN Reason: VERTIGO Miscellaneous (Lidoderm Patch Removal) 1 each MC DAILY@2200 [facility] Last Admin: 03/10/19 21:41 Dose: 1 each Polyethylene Glycol (Miralax (For Daily Use) -) 17 gm PO TID [facility] Last Admin: 03/11/19 13:14 Dose: Not Given Polysaccharide Iron Complex (Niferex-150 -) 150 mg PO DAILY [facility] Last Admin: 03/11/19 10:51 Dose: 150 mg Pregabalin (Lyrica -) 150 mg PO TID [facility] Last Admin: 03/11/19 13:11 Dose: 150 mg Rivaroxaban (Xarelto) 15 mg PO 1800 [facility] Last Admin: 03/10/19 17:35 Dose: 15 mg - Objective Vital Signs: Vital Signs Temperature 98.3 F 03/11/19 10:00 Pulse Rate 83 03/11/19 10:00 Respiratory Rate 18 03/11/19 10:00 Blood Pressure 121/67 03/11/19 10:00 O2 Sat by Pulse Oximetry (%) 98 03/11/19 09:00 Constitutional: Yes: Calm Eyes: Yes: Conjunctiva Clear HENT: Yes: Atraumatic Neck: Yes: Supple Cardiovascular: Yes: S1, S2 Respiratory: Yes: CTA Bilaterally Gastrointestinal: Yes: Soft Genitourinary: Yes: Bhandari Present Musculoskeletal: Yes: Other (lef aka) Edema: No Integumentary: Yes: Tattoos Neurological: Yes: Oriented Labs: CBC, BMP 03/11/19 06:00 03/11/19 05:25 INR, PTT INR 1.00 (0.83-1.09) 03/08/19 08:30 Problem List - Problems (1) REBA (acute kidney injury) Code(s): N17.9 - ACUTE KIDNEY FAILURE, UNSPECIFIED (2) Elevated CK Code(s): R74.8 - ABNORMAL LEVELS OF OTHER SERUM ENZYMES Assessment/Plan Current Medications Generic Name Dose Route Start Last Admin Trade Name Byronq PRN Reason Stop Dose Admin Acetaminophen 650 mg 03/08/19 16:17 03/09/19 09:55 Tylenol - PO 650 mg Q6H PRN Administration FEVER Al Hydroxide/Mg Hydroxide 30 ml 03/08/19 16:17 Mylanta Oral Suspension - PO Q6H PRN DYSPEPSIA Albuterol Sulfate 1 amp 03/08/19 20:00 03/11/19 09:00 Ventolin 0.083% Nebulizer Soln - NEB 1 amp RQID [facility] Administration Aspirin 81 mg 03/09/19 10:00 03/11/19 10:50 Ecotrin - PO 81 mg DAILY [facility] Administration Atorvastatin Calcium 40 mg 03/08/19 22:00 03/10/19 21:41 Lipitor - PO 40 mg HS [facility] Administration Budesonide 1 amp 03/08/19 20:00 03/11/19 09:00 Pulmicort 0.25 Mg Nebulizer - NEB 1 amp RBID [facility] Administration Cyanocobalamin 1,000 mcg 03/11/19 11:15 03/11/19 13:12 Vitamin B12 Injection - IM 1,000 mcg DAILY [facility] Administration Cyclobenzaprine HCl 10 mg 03/08/19 16:17 03/09/19 22:49 Flexeril - PO 10 mg BID PRN Administration MUSCLE SPASMS Docusate Sodium 100 mg 03/08/19 22:00 03/11/19 10:50 Colace - PO 100 mg BID [facility] Administration Sodium Chloride 1,000 mls @ 75 mls/hr 03/08/19 16:30 03/10/19 17:34 Normal Saline - IV 75 mls/hr ASDIR [facility] Administration Ceftriaxone Sodium 2 gm/ 50 mls @ 100 mls/hr 03/09/19 15:00 03/11/19 13:11 Dextrose IVPB 100 mls/hr DAILY [facility] Administration Protocol Azithromycin 500 mg in 250 mls @ 250 mls/hr 03/09/19 15:00 03/11/19 11:19 Zithromax 500mg Ivpb (Pre-Docked) IVPB 250 mls/hr DAILY [facility] Administration Insulin Aspart 1 vial 03/08/19 16:30 03/11/19 12:30 Novolog Vial Sliding Scale - SQ Not Given TIDAC [facility] Protocol Insulin Detemir 30 units 03/09/19 07:00 03/11/19 06:21 Levemir Vial SQ 30 units AM [facility] Administration Lidocaine 1 patch 03/09/19 10:00 03/11/19 10:51 Lidoderm Patch - TP 1 patch DAILY [facility] Administration Lorazepam 1 mg 03/08/19 22:00 03/11/19 10:49 Ativan - PO 1 mg BID [facility] Administration Meclizine HCl 25 mg 03/08/19 16:17 Antivert - PO TID PRN VERTIGO Miscellaneous 1 each 03/08/19 22:00 03/10/19 21:41 Lidoderm Patch Removal MC 1 each DAILY@2200 [facility] Administration Polyethylene Glycol 17 gm 03/08/19 22:00 03/11/19 13:14 Miralax (For Daily Use) - PO Not Given TID [facility] Polysaccharide Iron Complex 150 mg 03/09/19 10:00 03/11/19 10:51 Niferex-150 - PO 150 mg DAILY [facility] Administration Pregabalin 150 mg 03/08/19 22:00 03/11/19 13:11 Lyrica - PO 150 mg TID [facility] Administration Rivaroxaban 15 mg 03/09/19 18:00 03/10/19 17:35 Xarelto PO 15 mg 1800 [facility] Administration Laboratory Tests 03/08/19 03/09/19 03/10/19 08:30 05:44 13:05 Creatine Kinase 6360 H 3474 H 1311 H 03/11/19 05:25 Creatine Kinase 721 H Impression 1. REBA 2. CKD 3. PVD 4. DM 5. protein s def 6. urinary retention 7. CAD 8. PVD 9. rhabdo Plan - renal function is improved - d/c fluids - pt has bhandari, voiding trial tomorrow and if she fails should get a urology eval - check bmp - cpk is improved
--- NOTE | 2019-03-11 13:58 | CONS ---
PULMONARY CONSULTATION DATE OF CONSULTATION: 03/11/2019 REFERRING PHYSICIAN: Jesus Henry NP HISTORY: The patient is a 44-year-old female with extensive past medical history, which includes ASHD status post WA in 2014, status post stent, COPD, protein S deficiency maintained on Coumadin, peripheral vascular disease status post multiple bilateral revascularizations and stents, status post left lower extremity AKA, chronic kidney disease, CVA 2015, insulin-dependent diabetes mellitus, longstanding tobacco use approximately 1 to 1-1/2 packs many years, quit 2 years ago. Admitted to [facility] on March 09 with complaint of generalized weakness, decreased mentation, altered mental status, decreased p.o. intake, and lethargy. The patient apparently lives at home with the daughter and other children. The daughter is concerned about the patient not eating well and altered mental status. She also complained of lower back pain and lower abdominal pain increasing in severity over 2 days. There is no fever. Does have a cough but is nonproductive. Denied any chest pain and she had multiple episodes of chills. She presented to the emergency room with the above. In the ER, she underwent CT of the abdomen, which revealed evidence of possible right lower lobe infiltrate. There was also noted a 4 x 3-cm mass- like density in the left adnexa and diverticulosis without acute diverticulitis. She was admitted. On admission, she was also noted to have metabolic acidosis and to have acute on chronic kidney injury. She was placed on IV fluids and broad-spectrum antibiotic per Infectious Disease. Patient denies any history of hemoptysis. Denies any chest pains or palpitations at this time. PAST MEDICAL HISTORY: Again includes ASHD status post WA, status post stents, chronic kidney disease, PAD status post multiple bilateral revascularizations and stents, status post left AKA, CVA 2014, chronic COPD, protein S deficiency on Coumadin, insulin-dependent diabetes mellitus. REVIEW OF SYSTEMS: Positive weakness, positive cough nonproductive. No chest pain, no palpitations. Positive fever, positive chills. No hemoptysis, no abdominal pain. CURRENT MEDICATIONS: Include Lidoderm patch, Pulmicort nebulizer, Tylenol, albuterol, Zithromax, ceftriaxone, Xarelto, Lyrica, Antivert, Colace, MiraLAX, Lexapro, Lipitor, NovoLog, Levemir, Ecotrin, Niferex, and cyanocobalamin. PHYSICAL EXAMINATION: General: The patient is a well-developed, well-nourished female. Currently awake and alert in no acute distress. Vital Signs: She is afebrile. Blood pressure 121/67, respiratory rate is 18, O2 saturation is 98% on 2 L. HEENT: Normocephalic, atraumatic. Neck: Supple. Heart: Regular with S1, S2. Chest: Clear. Abdomen: Soft. Bowel sounds are present. Extremities: Status post left lower extremity DKA. LABORATORY DATA: WBCs 11.8, hemoglobin 9.5, hematocrit 29.8. INR is 1. VBG 7.24, PCO2 of 36, PO2 of 67, bicarbonate of 15, saturation of 88. BUN 17, creatinine 1.1. On admission, creatinine is 4.8. Abdominopelvic CT as noted earlier. Patchy air-space disease in the lower lobes suggestive of pneumonia. Chest x-ray: No acute infiltrates or effusions. IMPRESSION: 1. Altered mental status secondary to sepsis, rule out pneumonia. 2. Insulin-dependent diabetes mellitus. 3. Chronic obstructive pulmonary disease, clinically stable. 4. Acute on chronic kidney disease, improving. 5. Metabolic acidosis. 6. Protein S deficiency. 7. Sacral decubitus. 8. Peripheral arterial disease status post left [id number] amputation status post stents. 9. Arteriosclerotic heart disease status post myocardial infarction and stents. 10. History of cerebrovascular accident, hypertension, history of tobacco abuse quit 2 years ago. 11. Rhabdomyolysis PLAN: Continue IV antibiotics as per ID. Inhaled bronchodilators. Supplemental O2. IV fluids. Monitor electrolytes. Renal function. Chest CT. Check arterial blood gas.Trend CK VADIM BERTRAND M.D. FIDENCIO/[id number] MTDD
[2019-03-11 15:57] LABS: ARTERIAL BLD GAS O2 SATURATION 98.5 % (95-98); ARTERIAL BLOOD GAS BASE EXCESS -1.6 meq/l (-2-2); ARTERIAL BLOOD GAS PCO2 35.4 mmHg (35-45); ARTERIAL BLOOD GAS PO2 123 mmHg (80-105); ARTERIAL BLOOD GAS pH 7.41 (7.35-7.45)
[2019-03-11 15:59] LABS: ALLENS TEST POSITIVE
[2019-03-11] MEDS: RIVAROXABAN 15 MG TABLET PO SCH (17:06)
[2019-03-11] MEDS: ATORVASTATIN CA 40 MG TABLET (FP) PO SCH (22:38)
[2019-03-11] MEDS: LIDOCAINE PATCH REMOVAL MC SCH (22:38)
[2019-03-12 04:11] LABS: SERUM IRON SATURATION 12 % (15-55); TOTAL IRON BINDING CAPACITY 218 ug/dL (250-450)
[2019-03-12] MEDS: POLYETHYLENE GLYCOL 3350 119 GM BTL PO SCH ×3 (05:55→21:17)
[2019-03-12] MEDS: PREGABALIN 75 MG CAPSULE PO SCH ×3 (05:55→21:15)
[2019-03-12] MEDS: INSULIN (LEVEMIR) 100 UNITS/ML UNITS SQ SCH (06:00)
[2019-03-12] MEDS: INSULIN SLIDING SCALE (NOVOLOG) 1 VIAL SQ SCH ×3 (06:00→18:50)
[2019-03-12] MEDS: ALBUTEROL SO4 0.083% IH SOL 2.5 MG/3 ML VIAL.NEB. NEB SCH ×4 (08:00→21:07)
[2019-03-12] MEDS: BUDESONIDE 0.25 MG/2ML INH SUSP VIAL NEB SCH ×2 (08:00→21:07)
[2019-03-12 08:06] LABS: ALBUMIN 2.2 g/dl (3.4-5.0); ALK PHOS 132 U/L (45-117); ANION GAP 7 MMOL/L (8-16); BILIRUBIN,TOTAL 0.2 mg/dL (0.2-1); BLOOD UREA NITROGEN 14.6 mg/dL (7-18); CALCIUM 8.3 mg/dL (8.5-10.1); CHLORIDE 111 mmol/L (98-107); CO2 26 mmol/L (21-32); CREATININE 1.1 mg/dL (0.55-1.3); GLUCOSE,RANDOM 158 mg/dL (74-106); POTASSIUM 4.4 mmol/L (3.5-5.1); SGOT/AST 11 U/L (15-37); SGPT/ALT 8 U/L (13-61); SODIUM 144 mmol/L (136-145)
[2019-03-12] MEDS ORDERED: PT OWN MED DRAWER 7, Y5N ONE ×2 (09:35→18:53)
[2019-03-12] MEDS: CEFTRIAXONE 2 GM in DEXTROSE 5%-WATER - 50 ML IVPB SCH (09:51)
[2019-03-12] MEDS: LIDOCAINE 5% TOPICAL PATCH TP SCH (09:52)
[2019-03-12] MEDS: DOCUSATE SODIUM 100 MG CAPSULE (FP) PO SCH ×2 (09:53→21:15)
[2019-03-12] MEDS: IRON POLYSACCHARIDES 150 MG CAPSULE PO SCH (09:53)
[2019-03-12] MEDS: ACETAMINOPHEN 325 MG TABLET (FP) PO PRN (09:53)
[2019-03-12] MEDS: LORazepam 0.5 MG TABLET PO SCH (09:53)
[2019-03-12] MEDS: ASPIRIN COATED 81 MG TABLET.EC PO SCH (09:53)
[2019-03-12] MEDS: CYANOCOBALAMIN (VITAMIN B-12) 1000 MCG/1 ML VIAL IM SCH (09:53)
[2019-03-12] MEDS: AZITHROMYCIN IVPB 500 MG/250 ML BAG IVPB SCH (09:54)
--- NOTE | 2019-03-12 10:26 | PN ---
Progress Note, Physician Chief Complaint: Weakness REBA Elevated CK Positive Wound Culture History of Present Illness: NAD in bed - Current Medication List Current Medications: Active Medications Acetaminophen (Tylenol -) 650 mg PO Q6H PRN PRN Reason: FEVER Last Admin: 03/12/19 09:53 Dose: 650 mg Al Hydroxide/Mg Hydroxide (Mylanta Oral Suspension -) 30 ml PO Q6H PRN PRN Reason: DYSPEPSIA Albuterol Sulfate (Ventolin 0.083% Nebulizer Soln -) 1 amp NEB RQID [facility] Last Admin: 03/12/19 08:00 Dose: 1 amp Aspirin (Ecotrin -) 81 mg PO DAILY [facility] Last Admin: 03/12/19 09:53 Dose: 81 mg Atorvastatin Calcium (Lipitor -) 40 mg PO HS [facility] Last Admin: 03/11/19 22:38 Dose: 40 mg Budesonide (Pulmicort 0.25 Mg Nebulizer -) 1 amp NEB RBID [facility] Last Admin: 03/12/19 08:00 Dose: 1 amp Cyanocobalamin (Vitamin B12 Injection -) 1,000 mcg IM DAILY [facility] Last Admin: 03/12/19 09:53 Dose: 1,000 mcg Cyclobenzaprine HCl (Flexeril -) 10 mg PO BID PRN PRN Reason: MUSCLE SPASMS Last Admin: 03/09/19 22:49 Dose: 10 mg Docusate Sodium (Colace -) 100 mg PO BID [facility] Last Admin: 03/12/19 09:53 Dose: 100 mg Ceftriaxone Sodium 2 gm/ (Dextrose) 50 mls @ 100 mls/hr IVPB DAILY [facility]; Protocol Last Admin: 03/12/19 09:51 Dose: 100 mls/hr Azithromycin (Zithromax 500mg Ivpb (Pre-Docked)) 500 mg in 250 mls @ 250 mls/ hr IVPB DAILY [facility] Last Admin: 03/12/19 09:54 Dose: 250 mls/hr Insulin Aspart (Novolog Vial Sliding Scale -) 1 vial SQ TIDAC [facility]; Protocol Last Admin: 03/12/19 06:00 Dose: Not Given Insulin Detemir (Levemir Vial) 30 units SQ AM [facility] Last Admin: 03/12/19 06:00 Dose: 30 units Lidocaine (Lidoderm Patch -) 1 patch TP DAILY [facility] Last Admin: 03/12/19 09:52 Dose: 1 patch Lorazepam (Ativan -) 1 mg PO BID [facility] Last Admin: 03/12/19 09:53 Dose: 1 mg Meclizine HCl (Antivert -) 25 mg PO TID PRN PRN Reason: VERTIGO Miscellaneous (Lidoderm Patch Removal) 1 each MC DAILY@2200 [facility] Last Admin: 03/11/19 22:38 Dose: 1 each Polyethylene Glycol (Miralax (For Daily Use) -) 17 gm PO TID [facility] Last Admin: 03/12/19 05:55 Dose: Not Given Polysaccharide Iron Complex (Niferex-150 -) 150 mg PO DAILY [facility] Last Admin: 03/12/19 09:53 Dose: 150 mg Pregabalin (Lyrica -) 150 mg PO TID [facility] Last Admin: 03/12/19 05:55 Dose: 150 mg Rivaroxaban (Xarelto) 15 mg PO 1800 [facility] Last Admin: 03/11/19 17:06 Dose: 15 mg - Objective Vital Signs: Vital Signs Temperature 98.4 F 03/12/19 06:00 Pulse Rate 78 03/12/19 06:00 Respiratory Rate 18 03/12/19 07:56 Blood Pressure 118/61 03/12/19 06:00 O2 Sat by Pulse Oximetry (%) 99 03/12/19 07:56 Constitutional: Yes: Well Nourished, No Distress, Calm Cardiovascular: Yes: Regular Rate and Rhythm Respiratory: Yes: Regular, On Nasal O2 Gastrointestinal: Yes: Normal Bowel Sounds, Soft Musculoskeletal: Yes: Muscle Weakness Extremities: Yes: Amputation (LAKA) Edema: No Peripheral Pulses WNL: Yes Neurological: Yes: Alert, Pre-Existing Deficit Psychiatric: Yes: Alert Labs: CBC, BMP 03/11/19 06:00 03/12/19 06:00 INR, PTT INR 1.00 (0.83-1.09) 03/08/19 08:30 Assessment/Plan (1) REBA (acute kidney injury) Assessment/Plan: -Cr trending down -Renal on board -IV hydration -monitor renal function Code(s): N17.9 - ACUTE KIDNEY FAILURE, UNSPECIFIED (2) Elevated CK Assessment/Plan: -IV hydration -monitor CK level -tele monitoring Code(s): R74.8 - ABNORMAL LEVELS OF OTHER SERUM ENZYMES (3) Metabolic acidosis Code(s): E87.2 - ACIDOSIS (4) Right lower lobe pneumonia Assessment/Plan: -CXR shows lower lung demonstrates airspace opacities suggestive of infiltrates -ID on board -Leukocytosis -afebrile -Azithromycin and Ceftriaxone -BC neg Code(s): J18.1 - LOBAR PNEUMONIA, UNSPECIFIED ORGANISM (5) Sacral decubitus ulcer Assessment/Plan: -wound culture positive -ID on board -leukocytosis -Ceftriaxone + azithro IVPB -afebrile -turn q2h -Vascular consult Code(s): L89.159 - PRESSURE ULCER OF SACRAL REGION, UNSPECIFIED STAGE (6) CAD (coronary artery disease) Assessment/Plan: -atorvastatin Code(s): I25.10 - ATHSCL HEART DISEASE OF [place] CORONARY ARTERY W/O ANG PCTRS Qualifiers: Coronary Disease-Associated Artery/Lesion type: coronary artery bypass graft Associated angina: without angina pectoris (7) COPD (chronic obstructive pulmonary disease) Assessment/Plan: -pulm consult -O2 via NC -keep SpO2 >90% -Budesonide -bronchodilators Code(s): J44.9 - CHRONIC OBSTRUCTIVE PULMONARY DISEASE, UNSPECIFIED Qualifiers: Emphysema type: unspecified (8) Type 2 diabetes mellitus with other diabetic kidney complication Assessment/Plan: -BGM ACHS -Levemir -ISS -diabetic diet -A1c 8.8 on 01/11/19 Code(s): E11.29 - TYPE 2 DIABETES MELLITUS W OTH DIABETIC KIDNEY COMPLICATION (9) Anemia Assessment/Plan: -likely dilutional low in iron and B12 -Already on Iron polysaccharide -Start B12 IM -Thyroid and stool OB pending Code(s): D64.9 - ANEMIA, UNSPECIFIED Qualifiers: Anemia type: unspecified type Qualified Code(s): D64.9 - Anemia, unspecified (10) Cerebrovascular accident Assessment/Plan: -Xarelto Code(s): I63.9 - CEREBRAL INFARCTION, UNSPECIFIED (11) HLD (hyperlipidemia) Assessment/Plan: -Atorvastatin Code(s): E78.5 - HYPERLIPIDEMIA, UNSPECIFIED Qualifiers: Hyperlipidemia type: pure hypercholesterolemia Qualified Code(s): E78.00 - Pure hypercholesterolemia, unspecified; E78.0 - Pure hypercholesterolemia
--- NOTE | 2019-03-12 11:27 | PN ---
Progress Note, Physician History of Present Illness: pulmonary awake,comfortable,-resp distress - Current Medication List Current Medications: Active Medications Acetaminophen (Tylenol -) 650 mg PO Q6H PRN PRN Reason: FEVER Last Admin: 03/12/19 09:53 Dose: 650 mg Al Hydroxide/Mg Hydroxide (Mylanta Oral Suspension -) 30 ml PO Q6H PRN PRN Reason: DYSPEPSIA Albuterol Sulfate (Ventolin 0.083% Nebulizer Soln -) 1 amp NEB RQID [facility] Last Admin: 03/12/19 08:00 Dose: 1 amp Aspirin (Ecotrin -) 81 mg PO DAILY [facility] Last Admin: 03/12/19 09:53 Dose: 81 mg Atorvastatin Calcium (Lipitor -) 40 mg PO HS [facility] Last Admin: 03/11/19 22:38 Dose: 40 mg Budesonide (Pulmicort 0.25 Mg Nebulizer -) 1 amp NEB RBID [facility] Last Admin: 03/12/19 08:00 Dose: 1 amp Cyanocobalamin (Vitamin B12 Injection -) 1,000 mcg IM DAILY [facility] Last Admin: 03/12/19 09:53 Dose: 1,000 mcg Cyclobenzaprine HCl (Flexeril -) 10 mg PO BID PRN PRN Reason: MUSCLE SPASMS Last Admin: 03/09/19 22:49 Dose: 10 mg Docusate Sodium (Colace -) 100 mg PO BID [facility] Last Admin: 03/12/19 09:53 Dose: 100 mg Ceftriaxone Sodium 2 gm/ (Dextrose) 50 mls @ 100 mls/hr IVPB DAILY [facility]; Protocol Last Admin: 03/12/19 09:51 Dose: 100 mls/hr Azithromycin (Zithromax 500mg Ivpb (Pre-Docked)) 500 mg in 250 mls @ 250 mls/ hr IVPB DAILY [facility] Last Admin: 03/12/19 09:54 Dose: 250 mls/hr Insulin Aspart (Novolog Vial Sliding Scale -) 1 vial SQ TIDAC [facility]; Protocol Last Admin: 03/12/19 06:00 Dose: Not Given Insulin Detemir (Levemir Vial) 30 units SQ AM [facility] Last Admin: 03/12/19 06:00 Dose: 30 units Lidocaine (Lidoderm Patch -) 1 patch TP DAILY [facility] Last Admin: 03/12/19 09:52 Dose: 1 patch Lorazepam (Ativan -) 1 mg PO BID [facility] Last Admin: 03/12/19 09:53 Dose: 1 mg Meclizine HCl (Antivert -) 25 mg PO TID PRN PRN Reason: VERTIGO Miscellaneous (Lidoderm Patch Removal) 1 each MC DAILY@2200 [facility] Last Admin: 03/11/19 22:38 Dose: 1 each Polyethylene Glycol (Miralax (For Daily Use) -) 17 gm PO TID [facility] Last Admin: 03/12/19 05:55 Dose: Not Given Polysaccharide Iron Complex (Niferex-150 -) 150 mg PO DAILY [facility] Last Admin: 03/12/19 09:53 Dose: 150 mg Pregabalin (Lyrica -) 150 mg PO TID [facility] Last Admin: 03/12/19 05:55 Dose: 150 mg Rivaroxaban (Xarelto) 15 mg PO 1800 [facility] Last Admin: 03/11/19 17:06 Dose: 15 mg - Objective Vital Signs: Vital Signs Temperature 98.2 F 03/12/19 10:00 Pulse Rate 72 03/12/19 10:00 Respiratory Rate 18 03/12/19 10:00 Blood Pressure 103/57 L 03/12/19 10:00 O2 Sat by Pulse Oximetry (%) 99 03/12/19 07:56 Constitutional: Yes: Well Nourished, Calm Eyes: Yes: WNL HENT: Yes: WNL Neck: Yes: WNL Cardiovascular: Yes: Regular Rate and Rhythm, S1, S2 Respiratory: Yes: Rales (bibasilar crackles) Gastrointestinal: Yes: Normal Bowel Sounds, Soft Extremities: Yes: Amputation (left aka) Edema: No Labs: CBC, BMP 03/12/19 06:00 INR, PTT Laboratory Tests 03/11/19 15:50 ABG pH 7.41 ABG pCO2 at Pt Temp 35.4 ABG pO2 at Pt Temp 123 H ABG HCO3 22.0 ABG O2 Sat (Measured) 98.5 H Problem List - Problems (1) REBA (acute kidney injury) Code(s): N17.9 - ACUTE KIDNEY FAILURE, UNSPECIFIED (2) Elevated CK Code(s): R74.8 - ABNORMAL LEVELS OF OTHER SERUM ENZYMES (3) Metabolic acidosis Code(s): E87.2 - ACIDOSIS (4) Right lower lobe pneumonia Code(s): J18.1 - LOBAR PNEUMONIA, UNSPECIFIED ORGANISM (5) Sacral decubitus ulcer Code(s): L89.159 - PRESSURE ULCER OF SACRAL REGION, UNSPECIFIED STAGE (6) Acute kidney injury superimposed on chronic kidney disease Code(s): N17.9 - ACUTE KIDNEY FAILURE, UNSPECIFIED; N18.9 - CHRONIC KIDNEY DISEASE, UNSPECIFIED (7) Altered mental state Code(s): R41.82 - ALTERED MENTAL STATUS, UNSPECIFIED Qualifiers: Altered mental status type: somnolence Qualified Code(s): R40.0 - Somnolence (8) Anemia Code(s): D64.9 - ANEMIA, UNSPECIFIED Qualifiers: Anemia type: unspecified type Qualified Code(s): D64.9 - Anemia, unspecified (9) CAD (coronary artery disease) Code(s): I25.10 - ATHSCL HEART DISEASE OF [place] CORONARY ARTERY W/O ANG PCTRS Qualifiers: Coronary Disease-Associated Artery/Lesion type: coronary artery bypass graft Associated angina: without angina pectoris (10) COPD (chronic obstructive pulmonary disease) Code(s): J44.9 - CHRONIC OBSTRUCTIVE PULMONARY DISEASE, UNSPECIFIED Qualifiers: Emphysema type: unspecified (11) Cerebrovascular accident Code(s): I63.9 - CEREBRAL INFARCTION, UNSPECIFIED (12) HLD (hyperlipidemia) Code(s): E78.5 - HYPERLIPIDEMIA, UNSPECIFIED Qualifiers: Hyperlipidemia type: pure hypercholesterolemia Qualified Code(s): E78.00 - Pure hypercholesterolemia, unspecified; E78.0 - Pure hypercholesterolemia (13) Hypercoagulable state Code(s): D68.59 - OTHER PRIMARY THROMBOPHILIA (14) Peripheral arterial disease Code(s): I73.9 - PERIPHERAL VASCULAR DISEASE, UNSPECIFIED (15) Sepsis Code(s): A41.9 - SEPSIS, UNSPECIFIED ORGANISM Assessment/Plan IMP ALTERED MENTAL STATUS IMPROVING ? PNEUMONIA IDDM COPD ACUTE ON CKD METABOLIC ACIDOSIS corrected PROTEIN S DEFICIENCY SACRAL DECUBITUS PAD S/P LEFT AKA ASHD S/P PA,STENT H/O CVA HTN RHABDOMYOLYSIS IMPROVING + H/O TOBACCO ABUSE QUIT 2YRS AGO PLAN IV ABX PER ID INHALED BRONCHODILATORS O2 IVF MONITOR LYTES,RENAL FUNCTION TREND CK DR BERTRAND Problem List - Problems (1) REBA (acute kidney injury) Code(s): N17.9 - ACUTE KIDNEY FAILURE, UNSPECIFIED (2) Elevated CK Code(s): R74.8 - ABNORMAL LEVELS OF OTHER SERUM ENZYMES (3) Metabolic acidosis Code(s): E87.2 - ACIDOSIS (4) Right lower lobe pneumonia Code(s): J18.1 - LOBAR PNEUMONIA, UNSPECIFIED ORGANISM (5) Sacral decubitus ulcer Code(s): L89.159 - PRESSURE ULCER OF SACRAL REGION, UNSPECIFIED STAGE (6) Acute kidney injury superimposed on chronic kidney disease Code(s): N17.9 - ACUTE KIDNEY FAILURE, UNSPECIFIED; N18.9 - CHRONIC KIDNEY DISEASE, UNSPECIFIED (7) Altered mental state Code(s): R41.82 - ALTERED MENTAL STATUS, UNSPECIFIED Qualifiers: Altered mental status type: somnolence Qualified Code(s): R40.0 - Somnolence (8) Anemia Code(s): D64.9 - ANEMIA, UNSPECIFIED Qualifiers: Anemia type: unspecified type Qualified Code(s): D64.9 - Anemia, unspecified (9) CAD (coronary artery disease) Code(s): I25.10 - ATHSCL HEART DISEASE OF [place] CORONARY ARTERY W/O ANG PCTRS Qualifiers: Coronary Disease-Associated Artery/Lesion type: coronary artery bypass graft Associated angina: without angina pectoris (10) COPD (chronic obstructive pulmonary disease) Code(s): J44.9 - CHRONIC OBSTRUCTIVE PULMONARY DISEASE, UNSPECIFIED Qualifiers: Emphysema type: unspecified (11) Cerebrovascular accident Code(s): I63.9 - CEREBRAL INFARCTION, UNSPECIFIED (12) HLD (hyperlipidemia) Code(s): E78.5 - HYPERLIPIDEMIA, UNSPECIFIED Qualifiers: Hyperlipidemia type: pure hypercholesterolemia Qualified Code(s): E78.00 - Pure hypercholesterolemia, unspecified; E78.0 - Pure hypercholesterolemia (13) Hypercoagulable state Code(s): D68.59 - OTHER PRIMARY THROMBOPHILIA (14) Peripheral arterial disease Code(s): I73.9 - PERIPHERAL VASCULAR DISEASE, UNSPECIFIED (15) Sepsis Code(s): A41.9 - SEPSIS, UNSPECIFIED ORGANISM
--- NOTE | 2019-03-12 12:24 | PN ---
Progress Note, Physician History of Present Illness: Pt seen and examined at bedside. She is awake and alert. Muro was removed and she is on a voiding trial. - Current Medication List Current Medications: Active Medications Acetaminophen (Tylenol -) 650 mg PO Q6H PRN PRN Reason: FEVER Last Admin: 03/12/19 09:53 Dose: 650 mg Al Hydroxide/Mg Hydroxide (Mylanta Oral Suspension -) 30 ml PO Q6H PRN PRN Reason: DYSPEPSIA Albuterol Sulfate (Ventolin 0.083% Nebulizer Soln -) 1 amp NEB RQID [facility] Last Admin: 03/12/19 08:00 Dose: 1 amp Aspirin (Ecotrin -) 81 mg PO DAILY [facility] Last Admin: 03/12/19 09:53 Dose: 81 mg Atorvastatin Calcium (Lipitor -) 40 mg PO HS [facility] Last Admin: 03/11/19 22:38 Dose: 40 mg Budesonide (Pulmicort 0.25 Mg Nebulizer -) 1 amp NEB RBID [facility] Last Admin: 03/12/19 08:00 Dose: 1 amp Cyanocobalamin (Vitamin B12 Injection -) 1,000 mcg IM DAILY [facility] Last Admin: 03/12/19 09:53 Dose: 1,000 mcg Cyclobenzaprine HCl (Flexeril -) 10 mg PO BID PRN PRN Reason: MUSCLE SPASMS Last Admin: 03/09/19 22:49 Dose: 10 mg Docusate Sodium (Colace -) 100 mg PO BID [facility] Last Admin: 03/12/19 09:53 Dose: 100 mg Ceftriaxone Sodium 2 gm/ (Dextrose) 50 mls @ 100 mls/hr IVPB DAILY [facility]; Protocol Last Admin: 03/12/19 09:51 Dose: 100 mls/hr Azithromycin (Zithromax 500mg Ivpb (Pre-Docked)) 500 mg in 250 mls @ 250 mls/ hr IVPB DAILY [facility] Last Admin: 03/12/19 09:54 Dose: 250 mls/hr Insulin Aspart (Novolog Vial Sliding Scale -) 1 vial SQ TIDAC [facility]; Protocol Last Admin: 03/12/19 06:00 Dose: Not Given Insulin Detemir (Levemir Vial) 30 units SQ AM [facility] Last Admin: 03/12/19 06:00 Dose: 30 units Lidocaine (Lidoderm Patch -) 1 patch TP DAILY [facility] Last Admin: 03/12/19 09:52 Dose: 1 patch Lorazepam (Ativan -) 1 mg PO BID [facility] Last Admin: 03/12/19 09:53 Dose: 1 mg Meclizine HCl (Antivert -) 25 mg PO TID PRN PRN Reason: VERTIGO Miscellaneous (Lidoderm Patch Removal) 1 each MC DAILY@2200 [facility] Last Admin: 03/11/19 22:38 Dose: 1 each Polyethylene Glycol (Miralax (For Daily Use) -) 17 gm PO TID [facility] Last Admin: 03/12/19 05:55 Dose: Not Given Polysaccharide Iron Complex (Niferex-150 -) 150 mg PO DAILY [facility] Last Admin: 03/12/19 09:53 Dose: 150 mg Pregabalin (Lyrica -) 150 mg PO TID [facility] Last Admin: 03/12/19 05:55 Dose: 150 mg Rivaroxaban (Xarelto) 15 mg PO 1800 [facility] Last Admin: 03/11/19 17:06 Dose: 15 mg - Objective Vital Signs: Vital Signs Temperature 98.2 F 03/12/19 10:00 Pulse Rate 72 03/12/19 10:00 Respiratory Rate 18 03/12/19 10:00 Blood Pressure 103/57 L 03/12/19 10:00 O2 Sat by Pulse Oximetry (%) 99 03/12/19 07:56 Constitutional: Yes: Calm Eyes: Yes: Conjunctiva Clear HENT: Yes: Atraumatic Cardiovascular: Yes: S1, S2 Respiratory: Yes: CTA Bilaterally Gastrointestinal: Yes: Soft Genitourinary: Yes: WNL Musculoskeletal: Yes: Other (left aka) Edema: No Integumentary: Yes: Tattoos Neurological: Yes: Oriented Psychiatric: Yes: Oriented Labs: CBC, BMP 03/11/19 06:00 03/12/19 06:00 INR, PTT INR 1.00 (0.83-1.09) 03/08/19 08:30 Problem List - Problems (1) REBA (acute kidney injury) Code(s): N17.9 - ACUTE KIDNEY FAILURE, UNSPECIFIED (2) Elevated CK Code(s): R74.8 - ABNORMAL LEVELS OF OTHER SERUM ENZYMES Assessment/Plan Current Medications Generic Name Dose Route Start Last Admin Trade Name Freq PRN Reason Stop Dose Admin Acetaminophen 650 mg 03/08/19 16:17 03/12/19 09:53 Tylenol - PO 650 mg Q6H PRN Administration FEVER Al Hydroxide/Mg Hydroxide 30 ml 03/08/19 16:17 Mylanta Oral Suspension - PO Q6H PRN DYSPEPSIA Albuterol Sulfate 1 amp 03/08/19 20:00 03/12/19 08:00 Ventolin 0.083% Nebulizer Soln - NEB 1 amp RQID [facility] Administration Aspirin 81 mg 03/09/19 10:00 03/12/19 09:53 Ecotrin - PO 81 mg DAILY [facility] Administration Atorvastatin Calcium 40 mg 03/08/19 22:00 03/11/19 22:38 Lipitor - PO 40 mg HS [facility] Administration Budesonide 1 amp 03/08/19 20:00 03/12/19 08:00 Pulmicort 0.25 Mg Nebulizer - NEB 1 amp RBID [facility] Administration Cyanocobalamin 1,000 mcg 03/11/19 11:15 03/12/19 09:53 Vitamin B12 Injection - IM 1,000 mcg DAILY [facility] Administration Cyclobenzaprine HCl 10 mg 03/08/19 16:17 03/09/19 22:49 Flexeril - PO 10 mg BID PRN Administration MUSCLE SPASMS Docusate Sodium 100 mg 03/08/19 22:00 03/12/19 09:53 Colace - PO 100 mg BID [facility] Administration Ceftriaxone Sodium 2 gm/ 50 mls @ 100 mls/hr 03/09/19 15:00 03/12/19 09:51 Dextrose IVPB 100 mls/hr DAILY [facility] Administration Protocol Azithromycin 500 mg in 250 mls @ 250 mls/hr 03/09/19 15:00 03/12/19 09:54 Zithromax 500mg Ivpb (Pre-Docked) IVPB 250 mls/hr DAILY [facility] Administration Insulin Aspart 1 vial 03/08/19 16:30 03/12/19 06:00 Novolog Vial Sliding Scale - SQ Not Given TIDAC [facility] Protocol Insulin Detemir 30 units 03/09/19 07:00 03/12/19 06:00 Levemir Vial SQ 30 units AM [facility] Administration Lidocaine 1 patch 03/09/19 10:00 03/12/19 09:52 Lidoderm Patch - TP 1 patch DAILY [facility] Administration Lorazepam 1 mg 03/08/19 22:00 03/12/19 09:53 Ativan - PO 1 mg BID [facility] Administration Meclizine HCl 25 mg 03/08/19 16:17 Antivert - PO TID PRN VERTIGO Miscellaneous 1 each 03/08/19 22:00 03/11/19 22:38 Lidoderm Patch Removal MC 1 each DAILY@2200 [facility] Administration Polyethylene Glycol 17 gm 03/08/19 22:00 03/12/19 05:55 Miralax (For Daily Use) - PO Not Given TID [facility] Polysaccharide Iron Complex 150 mg 03/09/19 10:00 03/12/19 09:53 Niferex-150 - PO 150 mg DAILY [facility] Administration Pregabalin 150 mg 03/08/19 22:00 03/12/19 05:55 Lyrica - PO 150 mg TID [facility] Administration Rivaroxaban 15 mg 03/09/19 18:00 03/11/19 17:06 Xarelto PO 15 mg 1800 [facility] Administration Impression 1. REBA 2. CKD 3. PVD 4. DM 5. protein s def 6. urinary retention 7. CAD 8. PVD 9. rhabdo Plan - renal function is improving - cpk is improved - voiding trial - stable off of fluids and tolerating diet - repeat bmp in am
[2019-03-12] MEDS ORDERED: MAG HYDROX/AL HYDROX/SIMETH 30 ML UNIT-DOSE CUP PO PRN (17:25)
[2019-03-12] MEDS ORDERED: MECLIZINE HCL 25 MG TABLET (FP) PO PRN (17:25)
[2019-03-12] MEDS ORDERED: ACETAMINOPHEN 325 MG TABLET (FP) PO PRN (17:25)
[2019-03-12] MEDS: RIVAROXABAN 15 MG TABLET PO SCH (18:41)
[2019-03-12] MEDS: CYCLOBENZAPRINE HCL 10 MG TABLET (FP) PO PRN ×2 (18:48→21:17)
[2019-03-12] MEDS: LORazepam 1 MG TABLET PO SCH (21:15)
[2019-03-12] MEDS: ATORVASTATIN CA 40 MG TABLET (FP) PO SCH (21:15)
[2019-03-12] MEDS: LIDOCAINE PATCH REMOVAL MC SCH (21:21)
[2019-03-12] MEDS ORDERED: LIDOCAINE PATCH REMOVAL MC SCH (22:00)
[2019-03-13] MEDS: INSULIN SLIDING SCALE (NOVOLOG) 1 VIAL SQ SCH ×3 (06:05→16:26)
[2019-03-13] MEDS: PREGABALIN 75 MG CAPSULE PO SCH ×3 (06:09→21:49)
[2019-03-13] MEDS: POLYETHYLENE GLYCOL 3350 119 GM BTL PO SCH ×3 (06:10→21:53)
[2019-03-13] MEDS: INSULIN (LEVEMIR) 100 UNITS/ML UNITS SQ SCH (06:55)
[2019-03-13] MEDS ORDERED: INSULIN (LEVEMIR) 100 UNITS/ML UNITS SQ ONE (07:12)
[2019-03-13] MEDS: BUDESONIDE 0.25 MG/2ML INH SUSP VIAL NEB SCH ×2 (07:57→20:11)
[2019-03-13] MEDS: ALBUTEROL SO4 0.083% IH SOL 2.5 MG/3 ML VIAL.NEB. NEB SCH ×4 (07:57→20:11)
--- NOTE | 2019-03-13 09:54 | PN ---
Progress Note (short form) - Note Progress Note: Resting in NAD on NC O2. Cough is improving. No CP. Afebrile Intake & Output 03/10/19 03/11/19 03/12/19 03/13/19 23:59 23:59 23:59 23:59 Intake Total 1390 1950 750 300 Output Total 1999 1300 Balance -610 650 750 300 Last Vital Signs Temp Pulse Resp BP Pulse Ox 98 F 79 18 121/72 99 03/13/19 05:00 03/13/19 05:00 03/13/19 05:00 03/13/19 05:00 03/12/19 21:00 Active Medications Acetaminophen (Tylenol -) 650 mg PO Q6H PRN PRN Reason: FEVER Al Hydroxide/Mg Hydroxide (Mylanta Oral Suspension -) 30 ml PO Q6H PRN PRN Reason: DYSPEPSIA Albuterol Sulfate (Ventolin 0.083% Nebulizer Soln -) 1 amp NEB RQID [facility] Last Admin: 03/13/19 07:57 Dose: 1 amp Aspirin (Ecotrin -) 81 mg PO DAILY [facility] Atorvastatin Calcium (Lipitor -) 40 mg PO HS [facility] Last Admin: 03/12/19 21:15 Dose: 40 mg Budesonide (Pulmicort 0.25 Mg Nebulizer -) 1 amp NEB RBID [facility] Last Admin: 03/13/19 07:57 Dose: 1 amp Cyanocobalamin (Vitamin B12 Injection -) 1,000 mcg IM DAILY [facility] Cyclobenzaprine HCl (Flexeril -) 10 mg PO BID PRN PRN Reason: MUSCLE SPASMS Last Admin: 03/12/19 21:17 Dose: 10 mg Docusate Sodium (Colace -) 100 mg PO BID [facility] Last Admin: 03/12/19 21:15 Dose: 100 mg Azithromycin (Zithromax 500mg Ivpb (Pre-Docked)) 500 mg in 250 mls @ 250 mls/ hr IVPB DAILY [facility] Insulin Aspart (Novolog Vial Sliding Scale -) 1 vial SQ TIDAC [facility]; Protocol Last Admin: 03/13/19 06:05 Dose: Not Given Insulin Detemir (Levemir Vial) 30 units SQ AM [facility] Last Admin: 03/13/19 06:55 Dose: 30 unit Lidocaine (Lidoderm Patch -) 1 patch TP DAILY [facility] Lorazepam (Ativan -) 1 mg PO BID [facility] Last Admin: 03/12/19 21:15 Dose: 1 mg Meclizine HCl (Antivert -) 25 mg PO TID PRN PRN Reason: VERTIGO Miscellaneous (Lidoderm Patch Removal) 1 each MC DAILY@2200 [facility] Last Admin: 03/12/19 21:21 Dose: Not Given Polyethylene Glycol (Miralax (For Daily Use) -) 17 gm PO TID [facility] Last Admin: 03/13/19 06:10 Dose: Not Given Polysaccharide Iron Complex (Niferex-150 -) 150 mg PO DAILY [facility] Pregabalin (Lyrica -) 150 mg PO TID [facility] Last Admin: 03/13/19 06:09 Dose: 150 mg Rivaroxaban (Xarelto) 15 mg PO 1800 [facility] Last Admin: 03/12/19 18:41 Dose: 15 mg Constitutional: Yes: Well Nourished, Calm Eyes: Yes: WNL HENT: Yes: WNL Neck: Yes: WNL Cardiovascular: Yes: Regular Rate and Rhythm, S1, S2 Respiratory: Yes: few scattered rhonchi Gastrointestinal: Yes: Normal Bowel Sounds, Soft Extremities: Yes: Amputation (left aka) Edema: No Labs: Laboratory Results - last 24 hr 03/12/19 03/12/19 03/13/19 18:00 20:57 05:39 POC Glucometer 123 195 146 Problem List - Problems (1) REBA (acute kidney injury) Code(s): N17.9 - ACUTE KIDNEY FAILURE, UNSPECIFIED (2) Elevated CK Code(s): R74.8 - ABNORMAL LEVELS OF OTHER SERUM ENZYMES (3) Metabolic acidosis Code(s): E87.2 - ACIDOSIS (4) Right lower lobe pneumonia Code(s): J18.1 - LOBAR PNEUMONIA, UNSPECIFIED ORGANISM (5) Sacral decubitus ulcer Code(s): L89.159 - PRESSURE ULCER OF SACRAL REGION, UNSPECIFIED STAGE (6) Acute kidney injury superimposed on chronic kidney disease Code(s): N17.9 - ACUTE KIDNEY FAILURE, UNSPECIFIED; N18.9 - CHRONIC KIDNEY DISEASE, UNSPECIFIED (7) Altered mental state Code(s): R41.82 - ALTERED MENTAL STATUS, UNSPECIFIED Qualifiers: Altered mental status type: somnolence Qualified Code(s): R40.0 - Somnolence (8) Anemia Code(s): D64.9 - ANEMIA, UNSPECIFIED Qualifiers: Anemia type: unspecified type Qualified Code(s): D64.9 - Anemia, unspecified (9) CAD (coronary artery disease) Code(s): I25.10 - ATHSCL HEART DISEASE OF [place] CORONARY ARTERY W/O ANG PCTRS Qualifiers: Coronary Disease-Associated Artery/Lesion type: coronary artery bypass graft Associated angina: without angina pectoris (10) COPD (chronic obstructive pulmonary disease) Code(s): J44.9 - CHRONIC OBSTRUCTIVE PULMONARY DISEASE, UNSPECIFIED Qualifiers: Emphysema type: unspecified (11) Cerebrovascular accident Code(s): I63.9 - CEREBRAL INFARCTION, UNSPECIFIED (12) HLD (hyperlipidemia) Code(s): E78.5 - HYPERLIPIDEMIA, UNSPECIFIED Qualifiers: Hyperlipidemia type: pure hypercholesterolemia Qualified Code(s): E78.00 - Pure hypercholesterolemia, unspecified; E78.0 - Pure hypercholesterolemia (13) Hypercoagulable state Code(s): D68.59 - OTHER PRIMARY THROMBOPHILIA (14) Peripheral arterial disease Code(s): I73.9 - PERIPHERAL VASCULAR DISEASE, UNSPECIFIED (15) Sepsis Code(s): A41.9 - SEPSIS, UNSPECIFIED ORGANISM Assessment/Plan IMP ALTERED MENTAL STATUS IMPROVING PNEUMONIA / PNEUMONITIS IDDM COPD ACUTE ON CKD METABOLIC ACIDOSIS corrected PROTEIN S DEFICIENCY SACRAL DECUBITUS PAD S/P LEFT AKA ASHD S/P MN,STENT H/O CVA HTN RHABDOMYOLYSIS IMPROVING + H/O TOBACCO ABUSE QUIT 2YRS AGO PLAN ABX PER ID: (?) CHANGE TO PO THERAPY SOON INHALED BRONCHODILATORS O2 NEEDED ZOE ROSS
[2019-03-13] MEDS ORDERED: AZITHROMYCIN IVPB 500 MG/250 ML BAG IVPB SCH (10:00)
--- NOTE | 2019-03-13 10:12 | PN ---
Progress Note, Physician Chief Complaint: AWAKE ALERT + WOUND ULCERS ON ROUNDS SEEN BY NURSING STAFF NO FEVER OR CHILLS - Current Medication List Current Medications: Active Medications Acetaminophen (Tylenol -) 650 mg PO Q6H PRN PRN Reason: FEVER Al Hydroxide/Mg Hydroxide (Mylanta Oral Suspension -) 30 ml PO Q6H PRN PRN Reason: DYSPEPSIA Albuterol Sulfate (Ventolin 0.083% Nebulizer Soln -) 1 amp NEB RQID [facility] Last Admin: 03/13/19 07:57 Dose: 1 amp Aspirin (Ecotrin -) 81 mg PO DAILY [facility] Atorvastatin Calcium (Lipitor -) 40 mg PO HS [facility] Last Admin: 03/12/19 21:15 Dose: 40 mg Budesonide (Pulmicort 0.25 Mg Nebulizer -) 1 amp NEB RBID [facility] Last Admin: 03/13/19 07:57 Dose: 1 amp Cyanocobalamin (Vitamin B12 Injection -) 1,000 mcg IM DAILY [facility] Cyclobenzaprine HCl (Flexeril -) 10 mg PO BID PRN PRN Reason: MUSCLE SPASMS Last Admin: 03/12/19 21:17 Dose: 10 mg Docusate Sodium (Colace -) 100 mg PO BID [facility] Last Admin: 03/12/19 21:15 Dose: 100 mg Azithromycin (Zithromax 500mg Ivpb (Pre-Docked)) 500 mg in 250 mls @ 250 mls/ hr IVPB DAILY [facility] Insulin Aspart (Novolog Vial Sliding Scale -) 1 vial SQ TIDAC [facility]; Protocol Last Admin: 03/13/19 06:05 Dose: Not Given Insulin Detemir (Levemir Vial) 30 units SQ AM [facility] Last Admin: 03/13/19 06:55 Dose: 30 unit Lidocaine (Lidoderm Patch -) 1 patch TP DAILY [facility] Lorazepam (Ativan -) 1 mg PO BID [facility] Last Admin: 03/12/19 21:15 Dose: 1 mg Meclizine HCl (Antivert -) 25 mg PO TID PRN PRN Reason: VERTIGO Miscellaneous (Lidoderm Patch Removal) 1 each MC DAILY@2200 [facility] Last Admin: 03/12/19 21:21 Dose: Not Given Polyethylene Glycol (Miralax (For Daily Use) -) 17 gm PO TID [facility] Last Admin: 03/13/19 06:10 Dose: Not Given Polysaccharide Iron Complex (Niferex-150 -) 150 mg PO DAILY [facility] Pregabalin (Lyrica -) 150 mg PO TID [facility] Last Admin: 03/13/19 06:09 Dose: 150 mg Rivaroxaban (Xarelto) 15 mg PO 1800 [facility] Last Admin: 03/12/19 18:41 Dose: 15 mg - Objective Vital Signs: Vital Signs Temperature 98 F 03/13/19 05:00 Pulse Rate 79 03/13/19 05:00 Respiratory Rate 18 03/13/19 05:00 Blood Pressure 121/72 03/13/19 05:00 O2 Sat by Pulse Oximetry (%) 99 03/12/19 21:00 Constitutional: Yes: Mild Distress Eyes: Yes: WNL HENT: Yes: WNL Neck: Yes: WNL Cardiovascular: Yes: Regular Rate and Rhythm Respiratory: Yes: WNL Gastrointestinal: Yes: Normal Bowel Sounds Genitourinary: Yes: WNL Musculoskeletal: Yes: Muscle Weakness Extremities: Yes: WNL Edema: No Peripheral Pulses WNL: Yes Integumentary: Yes: Pressure Ulcer (MULTIPLE SACRAL/LUMBAR/HIP STAGE 2, 3, 4) Neurological: Yes: Pre-Existing Deficit ...Motor Strength: LLE, RLE Psychiatric: Yes: WNL Labs: CBC, BMP 03/11/19 06:00 03/12/19 06:00 INR, PTT INR 1.00 (0.83-1.09) 03/08/19 08:30 Problem List - Problems (1) REBA (acute kidney injury) Code(s): N17.9 - ACUTE KIDNEY FAILURE, UNSPECIFIED (2) Elevated CK Code(s): R74.8 - ABNORMAL LEVELS OF OTHER SERUM ENZYMES (3) High anion gap metabolic acidosis Code(s): E87.2 - ACIDOSIS (4) Right lower lobe pneumonia Code(s): J18.1 - LOBAR PNEUMONIA, UNSPECIFIED ORGANISM (5) Sacral decubitus ulcer Code(s): L89.159 - PRESSURE ULCER OF SACRAL REGION, UNSPECIFIED STAGE (6) Uremia Code(s): N19 - UNSPECIFIED KIDNEY FAILURE (7) Abdominal pain Code(s): R10.9 - UNSPECIFIED ABDOMINAL PAIN Qualifiers: Abdominal location: generalized Qualified Code(s): R10.84 - Generalized abdominal pain (8) Anemia Code(s): D64.9 - ANEMIA, UNSPECIFIED Qualifiers: Anemia type: unspecified type Qualified Code(s): D64.9 - Anemia, unspecified (9) Anxiety Code(s): F41.9 - ANXIETY DISORDER, UNSPECIFIED (10) Asthma Code(s): J45.909 - UNSPECIFIED ASTHMA, UNCOMPLICATED (11) CAD (coronary artery disease) Code(s): I25.10 - ATHSCL HEART DISEASE OF [place] CORONARY ARTERY W/O ANG PCTRS Qualifiers: Coronary Disease-Associated Artery/Lesion type: coronary artery bypass graft Associated angina: without angina pectoris (12) COPD (chronic obstructive pulmonary disease) Code(s): J44.9 - CHRONIC OBSTRUCTIVE PULMONARY DISEASE, UNSPECIFIED Qualifiers: Emphysema type: unspecified (13) Diabetic neuropathy, painful Code(s): E11.40 - TYPE 2 DIABETES MELLITUS WITH DIABETIC NEUROPATHY, UNSP (14) GERD (gastroesophageal reflux disease) Code(s): K21.9 - GASTRO-ESOPHAGEAL REFLUX DISEASE WITHOUT ESOPHAGITIS (15) Hypertension Code(s): I10 - ESSENTIAL (PRIMARY) HYPERTENSION Qualifiers: Hypertension type: essential hypertension Qualified Code(s): I10 - Essential (primary) hypertension (16) Peripheral neuropathy Code(s): G62.9 - POLYNEUROPATHY, UNSPECIFIED Qualifiers: Peripheral neuropathy type: mononeuropathy, other Qualified Code(s): G58.8 - Other specified mononeuropathies (17) Type 2 diabetes mellitus with hyperosmolarity without nonketotic hyperglycemic-hyperosmolar coma ([facility]) Code(s): E11.00 - TYPE 2 DIAB W HYPROSM W/O NONKET HYPRGLY-HYPROS COMA ([facility]) (18) Type 2 diabetes mellitus with other diabetic kidney complication Code(s): E11.29 - TYPE 2 DIABETES MELLITUS W OTH DIABETIC KIDNEY COMPLICATION (19) Type 2 diabetes mellitus with other skin ulcer Code(s): E11.622 - TYPE 2 DIABETES MELLITUS WITH OTHER SKIN ULCER; L98.499 - NON -PRESSURE CHRONIC ULCER OF SKIN OF SITES W UNSP SEVERITY (20) Type 2 diabetes mellitus with retinopathy without macular edema Code(s): E11.319 - TYPE 2 DIABETES W UNSP DIABETIC RTNOP W/O MACULAR EDEMA Qualifiers: Diabetic retinopathy severity: with mild nonproliferative retinopathy (21) Wound of sacral region Code(s): S31.000A - UNSP OPN WND LOW BACK AND PELV W/O PENET RETROPERITON, INIT Qualifiers: Encounter type: initial encounter Qualified Code(s): S31.000A - Unspecified open wound of lower back and pelvis without penetration into retroperitoneum, initial encounter Assessment/Plan ABX PER ID NEBS/02 SUPPORT WOUND CARE COLLAGENASE DAILY [facility] RE[facility]AB AT [facility] ORDERED VIT C, ZINC, MVI FOR OPTIMAL NUTRITION FOR WOUND HEALING FREQUENT TURNING
[2019-03-13] MEDS ORDERED: PT OWN MED DRAWER 7, Y5N ONE (10:33)
[2019-03-13] MEDS: DOCUSATE SODIUM 100 MG CAPSULE (FP) PO SCH ×2 (10:38→21:49)
[2019-03-13] MEDS: CYCLOBENZAPRINE HCL 10 MG TABLET (FP) PO PRN ×2 (10:38→21:50)
[2019-03-13] MEDS: LORazepam 1 MG TABLET PO SCH ×2 (10:38→21:49)
[2019-03-13] MEDS: IRON POLYSACCHARIDES 150 MG CAPSULE PO SCH (10:41)
[2019-03-13] MEDS: LIDOCAINE 5% TOPICAL PATCH TP SCH (10:45)
[2019-03-13] MEDS: ASPIRIN COATED 81 MG TABLET.EC PO SCH (10:45)
[2019-03-13] MEDS: CYANOCOBALAMIN (VITAMIN B-12) 1000 MCG/1 ML VIAL IM SCH (10:46)
--- NOTE | 2019-03-13 10:56 | CONSULT ---
- Consultation REQUESTING PROVIDER: WOUND CARE / Michael Torres CONSULT REQUEST: We have been asked to surgically evaluate this patient for sacral and bilateral hip ulcer PCP: Carmella Conley HPI: Called to eval 44 yo female w/ PMHx as noted below. Well known to [facility] Surgery [facility]. Followed by Dr. Torres in [facility]. Patient is a former smoker who required multiple procedures for LLE ischemia and ultimately had AKA. Comes to [facility] ED via EMS due to poor PO intake and lethargy. Patient lives at home with her daughter...daughter was concerned and wanted her to be evaluated. No complaints offered by patient at this time. Denies n/v/f/c, CP, palpitations, SOB, HOLDEN, lethargy, generalized weakness. PMHx: CVA, Neuropathy, CAD, HTN, HLD, RI (at [facility] 2014), Asthma, COPD, GERD, Cholelithiasis, RI, Protein S deficiency, OA, Herniated discs, DM(> 20 yrs. insulin > 10 yrs) PSHx: Gastric Bypass. Cardiac Cath 11/12 at [facility]: LCx FLY, 80% small D1; Stent at [facility] Lap Cholecystectomy Left AKA 02/18 (x 4) Colonoscopy Incarcerated hernia repair w/ resection of ~32cm of SB 04/14 Subsequent infected mesh removal 09/15 Stent (coronary, iliac and femoral Tubal Ligation Open femoral thrombectomy, angiogram 11/06/16 (Jolynn) Aortofemoral bypass with non-reversed saphenous vein 11/03/16 (Jolynn) Revascularization iliac bypass with stent and angioplasty, DCB 07/13/16 ( Jolynn) Left popliteal artery cannulation with ultrasound guidance. Pharmacomechanical thrombolysis iliofemoral graft. Balloon angioplasty. Placement thrombolysis catheter (EKOS) 07/12/16 (Jolynn) Open cannulation of left SFA. Mechanical and chemical thrombolysis of iliac bypass graft. Placement of balloon expandable stent in iliac artery (8 x 27 mm) . Angiogram aorta and iliac arteries 07/11/16 (Jolynn) Placement self-expanding stent in left femoral artery (7 x 40 mm) (Jolynn) Aortogram, LLE angioplasty and thrombolysis 10/21/14 (Leia) LLE Angiogram 10/22/14 (Brian) LMP: 03/08/19 Home Meds Budesonide [Pulmicort 0.25 mg Nebulizer -] 1 neb PO BID 11/21/15 Albuterol 0.083% Nebulizer Carolyn [Ventolin 0.083% Nebulizer Soln -] 1 amp NEB Q6HPO amp 12/15/15 Insulin (Novolog) [Novolog -] 0 units SQ ASDIR 04/15/16 Pregabalin [Lyrica -] 150 mg PO TID 04/15/16 Acetaminophen [Tylenol .Regular Strength -] 650 mg PO Q6H PRN #0 tablet Docusate Sodium [Colace -] 100 mg PO BID #60 11/22/16 Iron Polysaccharides [Niferex-150 -] 150 mg PO DAILY #30 11/22/16 Meclizine HCl [Antivert -] 25 mg PO TID PRN #90 tablet 11/22/16 Aspirin Coated [Ecotrin -] 81 mg PO DAILY tablet.ec 01/25/18 Insulin (Levemir) [Levemir Vial] 30 units SQ AM ml 01/25/18 Nitroglycerin Patch [Nitro-Dur Patch -] 0.1 mg TD DAILY #30 patch.td24 01/25/18 Cyclobenzaprine HCl [Flexeril -] 1 tab PO BID PRN 06/28/18 Rivaroxaban [Xarelto] 1 tab PO DAILY 06/28/18 LORazepam [Ativan] 1 mg PO BID MDD 2 01/10/19 Atorvastatin Ca [Lipitor] 40 mg PO HS #30 tablet 01/16/19 Lidocaine 5% Patch [Lidoderm -] 1 patch TP DAILY #30 patch 01/16/19 Mag Hydrox/Al Hydrox/Simeth [Mylanta Oral Suspension -] 30 ml PO Q6H PRN #1 bottle 01/16/19 Polyethylene Glycol 3350 [Miralax 119 gm Btl -] 17 gm PO TID #1 bottle 01/16/19 Allergy: NKDA ROS All systems reviewed and considered negative except for what's contained in the HPI. PE Gen: Well Nourished, No Distress, Calm Cor: RRR Pulm: CTA bilat GI: Obese habitus. Soft. NT. Normal BS x4 Extremities: LLE AKA stump clean/intact. No edema. RLE with DTI to heel (medial aspect ~ 2.54 cm x 2.54 cm). Skin intact. DP intact. Back: Sacrum intact. Wound is located at gluteal cleft and extending inwards ( medially). Tissue has violaceous appearance. Some tissue maceration. Area cover both gluteal folds. No bogginess or induration. Psychiatric: Alert. Cooperative Last Vital Signs Temp Pulse Resp BP Pulse Ox 97.9 F 84 18 127/77 99 03/13/19 10:55 03/13/19 10:55 03/13/19 10:55 03/13/19 10:55 03/12/19 21:00 CBC 03/13/19 11:03 Microbiology 03/08/19 07:58 Blood - Peripheral Venous Blood Culture - Final NO GROWTH AFTER 5 DAYS INCUBATION 03/08/19 07:40 Blood - Peripheral Venous Blood Culture - Final NO GROWTH AFTER 5 DAYS INCUBATION 03/08/19 07:58 Ulcer Gram Stain - Final 03/08/19 07:58 Ulcer Wound Culture - Final Staphylococcus Aureus Proteus Mirabilus - Esbl Produ Corynebacterium Species 03/10/19 18:00 Urine For Antigen Detection Legionella Antigen - Final 03/10/19 18:00 Urine For Antigen Detection Streptococcus pneumoniae Antigen (M - Final 03/08/19 07:58 Urine - Urine Muro Urine Culture - Final NO GROWTH OBTAINED Problem List - Problems (1) Suspected deep tissue injury Assessment/Plan: 44 yo female admitted secondary to lethargy and generalized weakness. During her initial physical exam multiple wounds/DTIs were identified (gluteal and right heel). Following recommendations: -Reposition every two hours while in bed -Patient has tendency to lean to the left(imbalance due to Lt AKA), this is a problem as it's putting a lot of pressure on her right heel (medially) contributing to the developing of her DTI -Air mattress recommended -Use drawsheets and Trendelenburg when repositioning to reduce friction and shear -Manage incontinence via timely cleansing, use of appropriate incontinence disposables and use of barrier ointment to intact skin -Ensure adequate hydration/nutrition -Ensure off-loading to all bony areas (heels, ankles, hips and tailbone) with Allevyn/Optifoam -Clean open wounds with normal saline and apply (insert ointment/dressing) -No surgical intervention. -Cont medical management -Reconsult Surgery PRN Above plan discussed with my attending and agrees. On behalf of Dr. Torres, thank you for the opportunity to participate in your patient's care. Code(s): R68.89 - OTHER GENERAL SYMPTOMS AND SIGNS (2) Suspected deep tissue injury of unknown depth of heel Code(s): R68.89 - OTHER GENERAL SYMPTOMS AND SIGNS (3) Asthma Code(s): J45.909 - UNSPECIFIED ASTHMA, UNCOMPLICATED (4) CAD (coronary artery disease) Code(s): I25.10 - ATHSCL HEART DISEASE OF [place] CORONARY ARTERY W/O ANG PCTRS Qualifiers: Coronary Disease-Associated Artery/Lesion type: coronary artery bypass graft Associated angina: without angina pectoris (5) COPD (chronic obstructive pulmonary disease) Code(s): J44.9 - CHRONIC OBSTRUCTIVE PULMONARY DISEASE, UNSPECIFIED Qualifiers: Emphysema type: unspecified (6) Chronic kidney disease (CKD) Code(s): N18.9 - CHRONIC KIDNEY DISEASE, UNSPECIFIED (7) Diabetes mellitus Code(s): E11.9 - TYPE 2 DIABETES MELLITUS WITHOUT COMPLICATIONS (8) GERD (gastroesophageal reflux disease) Code(s): K21.9 - GASTRO-ESOPHAGEAL REFLUX DISEASE WITHOUT ESOPHAGITIS (9) Hypertension Code(s): I10 - ESSENTIAL (PRIMARY) HYPERTENSION Qualifiers: Hypertension type: essential hypertension Qualified Code(s): I10 - Essential (primary) hypertension (10) Obesity Code(s): E66.9 - OBESITY, UNSPECIFIED Visit type - Case Type Case Type: ED Admission - Emergency Emergency Visit: Yes ED Registration Date: 03/08/19 Care time: The patient presented to the Emergency Department on the above date and was hospitalized for further evaluation of their emergent condition. - New patient This patient is new to me today: Yes Date on this admission: 03/13/19
[2019-03-13 11:32] LABS: HEMATOCRIT 33.1 % (32.4-45.2); HEMOGLOBIN 10.5 GM/dL (10.7-15.3); MCH 26.5 pg (25.7-33.7); MCHC 31.5 g/dl (32.0-36.0); MEAN PLT VOLUME 10.3 fl (7.5-11.1); PLATELET COUNT 240 K/MM3 (134-434); RBC 3.95 M/mm3 (3.60-5.2); RDW 16.3 % (11.6-15.6); WHITE BLOOD COUNT 12.1 K/mm3 (4.0-10.0)
[2019-03-13] MEDS: COLLAGENASE CLOSTRIDIUM HIST. 30 GRAMS TUBE TP SCH (11:42)
[2019-03-13 13:01] LABS: ALBUMIN 2.4 g/dl (3.4-5.0); BILIRUBIN,TOTAL 0.2 mg/dL (0.2-1); BLOOD UREA NITROGEN 15.8 mg/dL (7-18); CALCIUM 8.7 mg/dL (8.5-10.1); POTASSIUM 4.6 mmol/L (3.5-5.1); TOT PROT 6.5 g/dl (6.4-8.2)
[2019-03-13 13:06] VITALS: BMI 28.3
--- NOTE | 2019-03-13 13:51 | PN ---
Progress Note, Physician History of Present Illness: Pt seen and examined at bedside. She is awake and alert. She denies shortness of breath. She tolerated voiding trial yesterday. - Current Medication List Current Medications: Active Medications Acetaminophen (Tylenol -) 650 mg PO Q6H PRN PRN Reason: FEVER Al Hydroxide/Mg Hydroxide (Mylanta Oral Suspension -) 30 ml PO Q6H PRN PRN Reason: DYSPEPSIA Albuterol Sulfate (Ventolin 0.083% Nebulizer Soln -) 1 amp NEB RQID MICK Last Admin: 03/13/19 11:50 Dose: 1 amp Ascorbic Acid (Vitamin C -) 250 mg PO DAILY MICK Aspirin (Ecotrin -) 81 mg PO DAILY MICK Last Admin: 03/13/19 10:45 Dose: 81 mg Atorvastatin Calcium (Lipitor -) 40 mg PO HS MICK Last Admin: 03/12/19 21:15 Dose: 40 mg Budesonide (Pulmicort 0.25 Mg Nebulizer -) 1 amp NEB RBID MICK Last Admin: 03/13/19 07:57 Dose: 1 amp Collagenase (Santyl -) 1 applic TP DAILY [facility]; Protocol Last Admin: 03/13/19 11:42 Dose: 1 applic Cyanocobalamin (Vitamin B12 Injection -) 1,000 mcg IM DAILY MICK Last Admin: 03/13/19 10:46 Dose: 1,000 mcg Cyclobenzaprine HCl (Flexeril -) 10 mg PO BID PRN PRN Reason: MUSCLE SPASMS Last Admin: 03/13/19 10:38 Dose: 10 mg Docusate Sodium (Colace -) 100 mg PO BID MICK Last Admin: 03/13/19 10:38 Dose: 100 mg Azithromycin (Zithromax 500mg Ivpb (Pre-Docked)) 500 mg in 250 mls @ 250 mls/ hr IVPB DAILY MICK Last Admin: 03/13/19 10:38 Dose: 250 mls/hr Insulin Aspart (Novolog Vial Sliding Scale -) 1 vial SQ TIDAC [facility]; Protocol Last Admin: 03/13/19 11:42 Dose: Not Given Insulin Detemir (Levemir Vial) 30 units SQ AM [facility] Last Admin: 03/13/19 06:55 Dose: 30 unit Lidocaine (Lidoderm Patch -) 1 patch TP DAILY MICK Last Admin: 03/13/19 10:45 Dose: 1 patch Lorazepam (Ativan -) 1 mg PO BID [facility] Last Admin: 03/13/19 10:38 Dose: 1 mg Meclizine HCl (Antivert -) 25 mg PO TID PRN PRN Reason: VERTIGO Miscellaneous (Lidoderm Patch Removal) 1 each MC DAILY@2200 [facility] Last Admin: 03/12/19 21:21 Dose: Not Given Oxycodone HCl (Roxicodone -) 10 mg PO Q6H PRN PRN Reason: PAIN LEVEL 6-10 Polyethylene Glycol (Miralax (For Daily Use) -) 17 gm PO TID [facility] Last Admin: 03/13/19 06:10 Dose: Not Given Polysaccharide Iron Complex (Niferex-150 -) 150 mg PO DAILY [facility] Last Admin: 03/13/19 10:41 Dose: 150 mg Pregabalin (Lyrica -) 150 mg PO TID [facility] Last Admin: 03/13/19 06:09 Dose: 150 mg Rivaroxaban (Xarelto) 15 mg PO 1800 [facility] Last Admin: 03/12/19 18:41 Dose: 15 mg Zinc Sulfate (Orazinc -) 220 mg PO DAILY [facility] - Objective Vital Signs: Vital Signs Temperature 97.9 F 03/13/19 10:55 Pulse Rate 84 03/13/19 10:55 Respiratory Rate 18 03/13/19 10:55 Blood Pressure 127/77 03/13/19 10:55 O2 Sat by Pulse Oximetry (%) 99 03/12/19 21:00 Constitutional: Yes: Calm Eyes: Yes: Conjunctiva Clear HENT: Yes: Atraumatic Neck: Yes: Supple Cardiovascular: Yes: S1, S2 Gastrointestinal: Yes: Soft Genitourinary: Yes: WNL Musculoskeletal: Yes: Other (left aka) Edema: No Integumentary: Yes: Tattoos Neurological: Yes: Oriented Psychiatric: Yes: Oriented Labs: CBC, BMP 03/13/19 11:03 03/13/19 11:03 INR, PTT INR 1.00 (0.83-1.09) 03/08/19 08:30 Problem List - Problems (1) REBA (acute kidney injury) Code(s): N17.9 - ACUTE KIDNEY FAILURE, UNSPECIFIED (2) Elevated CK Code(s): R74.8 - ABNORMAL LEVELS OF OTHER SERUM ENZYMES Assessment/Plan Current Medications Generic Name Dose Route Start Last Admin Trade Name Freq PRN Reason Stop Dose Admin Acetaminophen 650 mg 03/12/19 17:25 Tylenol - PO Q6H PRN FEVER Al Hydroxide/Mg Hydroxide 30 ml 03/12/19 17:25 Mylanta Oral Suspension - PO Q6H PRN DYSPEPSIA Albuterol Sulfate 1 amp 03/12/19 20:00 03/13/19 11:50 Ventolin 0.083% Nebulizer Soln - NEB 1 amp RQID MICK Administration Ascorbic Acid 250 mg 03/14/19 10:00 Vitamin C - PO DAILY MICK Aspirin 81 mg 03/13/19 10:00 03/13/19 10:45 Ecotrin - PO 81 mg DAILY MICK Administration Atorvastatin Calcium 40 mg 03/12/19 22:00 03/12/19 21:15 Lipitor - PO 40 mg HS MICK Administration Budesonide 1 amp 03/12/19 20:00 03/13/19 07:57 Pulmicort 0.25 Mg Nebulizer - NEB 1 amp RBID MICK Administration Collagenase 1 applic 03/13/19 11:30 03/13/19 11:42 Santyl - TP 1 applic DAILY MICK Administration Protocol Cyanocobalamin 1,000 mcg 03/13/19 10:00 03/13/19 10:46 Vitamin B12 Injection - IM 1,000 mcg DAILY MICK Administration Cyclobenzaprine HCl 10 mg 03/12/19 17:25 03/13/19 10:38 Flexeril - PO 10 mg BID PRN Administration MUSCLE SPASMS Docusate Sodium 100 mg 03/12/19 22:00 03/13/19 10:38 Colace - PO 100 mg BID MICK Administration Azithromycin 500 mg in 250 mls @ 250 mls/hr 03/13/19 10:00 03/13/19 10:38 Zithromax 500mg Ivpb (Pre-Docked) IVPB 250 mls/hr DAILY MICK Administration Insulin Aspart 1 vial 03/13/19 07:00 03/13/19 11:42 Novolog Vial Sliding Scale - SQ Not Given TIDAC [facility] Protocol Insulin Detemir 30 units 03/13/19 07:00 03/13/19 06:55 Levemir Vial SQ 30 unit AM MICK Administration Lidocaine 1 patch 03/13/19 10:00 03/13/19 10:45 Lidoderm Patch - TP 1 patch DAILY MICK Administration Lorazepam 1 mg 03/12/19 22:00 03/13/19 10:38 Ativan - PO 1 mg BID MICK Administration Meclizine HCl 25 mg 03/12/19 17:25 Antivert - PO TID PRN VERTIGO Miscellaneous 1 each 03/12/19 22:00 03/12/19 21:21 Lidoderm Patch Removal MC Not Given DAILY@2200 MICK Oxycodone HCl 10 mg 03/13/19 10:13 Roxicodone - PO Q6H PRN PAIN LEVEL 6-10 Polyethylene Glycol 17 gm 03/12/19 22:00 03/13/19 06:10 Miralax (For Daily Use) - PO Not Given TID [facility] Polysaccharide Iron Complex 150 mg 03/13/19 10:00 03/13/19 10:41 Niferex-150 - PO 150 mg DAILY MICK Administration Pregabalin 150 mg 03/12/19 22:00 03/13/19 06:09 Lyrica - PO 150 mg TID MICK Administration Rivaroxaban 15 mg 03/12/19 18:00 03/12/19 18:41 Xarelto PO 15 mg 1800 MICK Administration Zinc Sulfate 220 mg 03/14/19 10:00 Orazinc - PO DAILY [facility] Impression 1. REBA 2. CKD 3. PVD 4. DM 5. protein s def 6. urinary retention 7. CAD 8. PVD 9. rhabdo Plan - renal function stable - pt tolerated voiding trial - avoid nephrotoxins - cpk had improved - repeat bmp in am
[2019-03-13] MEDS: oxyCODONE HCL 5 MG TABLET PO PRN ×2 (14:30→20:41)
--- NOTE | 2019-03-13 16:31 | PN ---
Progress Note, Physician History of Present Illness: AWAKE, ALERT NO COMPLAINTS DENIES CP/ DYSPNEA/ COUGH NO FEVER/CHILLS AFEBRILE WBC IMPROVED BC (-)\ WOUND C/S MIXED - Current Medication List Current Medications: Active Medications Acetaminophen (Tylenol -) 650 mg PO Q6H PRN PRN Reason: FEVER Al Hydroxide/Mg Hydroxide (Mylanta Oral Suspension -) 30 ml PO Q6H PRN PRN Reason: DYSPEPSIA Albuterol Sulfate (Ventolin 0.083% Nebulizer Soln -) 1 amp NEB RQID [facility] Last Admin: 03/13/19 16:14 Dose: 1 amp Ascorbic Acid (Vitamin C -) 250 mg PO DAILY MICK Aspirin (Ecotrin -) 81 mg PO DAILY [facility] Last Admin: 03/13/19 10:45 Dose: 81 mg Atorvastatin Calcium (Lipitor -) 40 mg PO HS [facility] Last Admin: 03/12/19 21:15 Dose: 40 mg Budesonide (Pulmicort 0.25 Mg Nebulizer -) 1 amp NEB RBID [facility] Last Admin: 03/13/19 07:57 Dose: 1 amp Collagenase (Santyl -) 1 applic TP DAILY [facility]; Protocol Last Admin: 03/13/19 11:42 Dose: 1 applic Cyanocobalamin (Vitamin B12 Injection -) 1,000 mcg IM DAILY [facility] Last Admin: 03/13/19 10:46 Dose: 1,000 mcg Cyclobenzaprine HCl (Flexeril -) 10 mg PO BID PRN PRN Reason: MUSCLE SPASMS Last Admin: 03/13/19 10:38 Dose: 10 mg Docusate Sodium (Colace -) 100 mg PO BID [facility] Last Admin: 03/13/19 10:38 Dose: 100 mg Azithromycin (Zithromax 500mg Ivpb (Pre-Docked)) 500 mg in 250 mls @ 250 mls/ hr IVPB DAILY [facility] Last Admin: 03/13/19 10:38 Dose: 250 mls/hr Insulin Aspart (Novolog Vial Sliding Scale -) 1 vial SQ TIDAC [facility]; Protocol Last Admin: 03/13/19 11:42 Dose: Not Given Insulin Detemir (Levemir Vial) 30 units SQ AM [facility] Last Admin: 03/13/19 06:55 Dose: 30 unit Lidocaine (Lidoderm Patch -) 1 patch TP DAILY [facility] Last Admin: 03/13/19 10:45 Dose: 1 patch Lorazepam (Ativan -) 1 mg PO BID [facility] Last Admin: 03/13/19 10:38 Dose: 1 mg Meclizine HCl (Antivert -) 25 mg PO TID PRN PRN Reason: VERTIGO Miscellaneous (Lidoderm Patch Removal) 1 each MC DAILY@2200 [facility] Last Admin: 03/12/19 21:21 Dose: Not Given Oxycodone HCl (Roxicodone -) 10 mg PO Q6H PRN PRN Reason: PAIN LEVEL 6-10 Last Admin: 03/13/19 14:30 Dose: 10 mg Polyethylene Glycol (Miralax (For Daily Use) -) 17 gm PO TID [facility] Last Admin: 03/13/19 14:31 Dose: Not Given Polysaccharide Iron Complex (Niferex-150 -) 150 mg PO DAILY [facility] Last Admin: 03/13/19 10:41 Dose: 150 mg Pregabalin (Lyrica -) 150 mg PO TID [facility] Last Admin: 03/13/19 14:30 Dose: 150 mg Rivaroxaban (Xarelto) 15 mg PO 1800 [facility] Last Admin: 03/12/19 18:41 Dose: 15 mg Zinc Sulfate (Orazinc -) 220 mg PO DAILY [facility] - Objective Vital Signs: Vital Signs Temperature 98.4 F 03/13/19 14:43 Pulse Rate 79 03/13/19 14:43 Respiratory Rate 18 03/13/19 14:43 Blood Pressure 111/57 L 03/13/19 14:43 O2 Sat by Pulse Oximetry (%) 99 03/13/19 09:00 Constitutional: Yes: No Distress Eyes: Yes: Conjunctiva Clear Cardiovascular: Yes: Regular Rate and Rhythm, S1, S2 Respiratory: Yes: CTA Bilaterally Gastrointestinal: Yes: Normal Bowel Sounds, Soft. No: Tenderness Labs: CBC, BMP 03/13/19 11:03 03/13/19 11:03 INR, PTT INR 1.00 (0.83-1.09) 03/08/19 08:30 Assessment/Plan PNEUMONIA LEUKOCYTOSIS IMPROVED CKD + WOUND C/S PROBABLE COLONIZATION SUBSTITUTE PO LEVAQUIN ADDITIONAL 7D
[2019-03-13] MEDS: RIVAROXABAN 15 MG TABLET PO SCH (18:36)
[2019-03-13] MEDS: ATORVASTATIN CA 40 MG TABLET (FP) PO SCH (21:50)
[2019-03-13] MEDS: LIDOCAINE PATCH REMOVAL MC SCH (21:52)
[2019-03-14] MEDS: PREGABALIN 75 MG CAPSULE PO SCH ×3 (06:28→21:33)
[2019-03-14] MEDS: POLYETHYLENE GLYCOL 3350 119 GM BTL PO SCH ×3 (06:28→21:34)
[2019-03-14] MEDS: INSULIN SLIDING SCALE (NOVOLOG) 1 VIAL SQ SCH ×3 (06:59→18:04)
[2019-03-14] MEDS: INSULIN (LEVEMIR) 100 UNITS/ML UNITS SQ SCH (06:59)
[2019-03-14] MEDS ORDERED: INSULIN (NOVOLOG) ASPART 100 UNITS/ML 10ML VIAL ONE (07:11)
[2019-03-14] MEDS ORDERED: INSULIN (LEVEMIR) 100 UNITS/ML UNITS SQ ONE (07:12)
[2019-03-14] MEDS: BUDESONIDE 0.25 MG/2ML INH SUSP VIAL NEB SCH ×2 (07:25→20:20)
[2019-03-14] MEDS: ALBUTEROL SO4 0.083% IH SOL 2.5 MG/3 ML VIAL.NEB. NEB SCH ×4 (07:25→20:25)
--- NOTE | 2019-03-14 07:47 | DS ---
Physical Examination Vital Signs: Vital Signs Temperature 98.1 F 03/14/19 06:28 Pulse Rate 78 03/14/19 06:28 Respiratory Rate 20 03/14/19 06:28 Blood Pressure 132/63 03/14/19 06:28 O2 Sat by Pulse Oximetry (%) 99 03/13/19 20:46 FEELING BETTER EVALUATED BY SURGERY FOR WOUND DECUBIT ULCERS NUTRITION INCREASED FOR WOUND CARE ACCELERATION AIR MATTRESS Constitutional: Yes: Mild Distress Eyes: Yes: WNL HENT: Yes: WNL Neck: Yes: WNL Cardiovascular: Yes: Regular Rate and Rhythm Respiratory: Yes: WNL Gastrointestinal: Yes: Normal Bowel Sounds Renal/: Yes: WNL Musculoskeletal: Yes: Back Pain, Muscle Weakness Extremities: Yes: Deformity Edema: No Peripheral Pulses WNL: Yes Integumentary: Yes: Pressure Ulcer Wound/Incision: Yes: Dressing Dry and Intact Neurological: Yes: Pre-Existing Deficit ...Motor Strength: LLE, RLE Psychiatric: Yes: Other Labs: CBC, BMP 03/13/19 11:03 03/13/19 11:03 Discharge Summary Reason For Visit: HIGH ANION GAP METABOLIC ACIDOSIS;ELEVATED CREATIN Current Active Problems REBA (acute kidney injury) (Acute) Elevated CK (Acute) High anion gap metabolic acidosis (Acute) Metabolic acidosis (Acute) Right lower lobe pneumonia (Acute) Sacral decubitus ulcer (Acute) Suspected deep tissue injury (Acute) Suspected deep tissue injury of unknown depth of heel (Acute) Uremia (Acute) Procedures: Principal: LABS/CX Hospital Course: ADMITTED ACUTE RENAL FAILURE, RHABDOMYLO, WOUNDS TO SACRAM/BUTTOCK TREATED FOR PNEUMONIA AND CARDIAC WORKUP FOR DYSPNEA. Condition: Improved - Instructions Diet, Activity, Other Instructions: LOW SALT/ADA GLUCERNA AIR MATTRESS FOR HEALING ULCERS WOUND CARE DAILY WEEKLY CBC/CMP Disposition: [facility] FACILITY - Home Medications Comprehensive Discharge Medication List: Ambulatory Orders Budesonide [Pulmicort 0.25 mg Nebulizer -] 1 neb PO BID 11/21/15 Albuterol 0.083% Nebulizer Carolyn [Ventolin 0.083% Nebulizer Soln -] 1 amp NEB Q6HPO amp 12/15/15 Insulin (Novolog) [Novolog -] 0 units SQ ASDIR 04/15/16 Pregabalin [Lyrica -] 150 mg PO TID 04/15/16 Acetaminophen [Tylenol .Regular Strength -] 650 mg PO Q6H PRN #0 tablet Docusate Sodium [Colace -] 100 mg PO BID #60 11/22/16 Iron Polysaccharides [Niferex-150 -] 150 mg PO DAILY #30 11/22/16 Meclizine HCl [Antivert -] 25 mg PO TID PRN #90 tablet 11/22/16 Aspirin Coated [Ecotrin -] 81 mg PO DAILY tablet.ec 01/25/18 Insulin (Levemir) [Levemir Vial] 30 units SQ AM ml 01/25/18 Nitroglycerin Patch [Nitro-Dur Patch -] 0.1 mg TD DAILY #30 patch.td24 01/25/18 Cyclobenzaprine HCl [Flexeril -] 1 tab PO BID PRN 06/28/18 Rivaroxaban [Xarelto] 1 tab PO DAILY 06/28/18 LORazepam [Ativan] 1 mg PO BID MDD 2 01/10/19 Atorvastatin Ca [Lipitor] 40 mg PO HS #30 tablet 01/16/19 Lidocaine 5% Patch [Lidoderm -] 1 patch TP DAILY #30 patch 01/16/19 Mag Hydrox/Al Hydrox/Simeth [Mylanta Oral Suspension -] 30 ml PO Q6H PRN #1 bottle 01/16/19 Polyethylene Glycol 3350 [Miralax 119 gm Btl -] 17 gm PO TID #1 bottle 01/16/19 Ascorbic Acid [Vitamin C -] 250 mg PO DAILY tablet 03/14/19 Collagenase Clostridium Hist. [Santyl -] 1 applic TP DAILY tube 03/14/19 Cyanocobalamin Vit B-12 Inj. [Vitamin B12 Injection -] 1,000 mcg IM DAILY vial 03/14/19 Insulin Sliding Scale [Novolog Vial Sliding Scale -] 1 vial SQ TIDAC units 08/21 Lidocaine Patch Removal [Lidoderm Patch Removal] 1 each MC DAILY@2200 each 08/21 Pregabalin [Lyrica -] 150 mg PO TID capsule MDD 3 03/14/19 Zinc Sulfate [Orazinc -] 220 mg PO DAILY capsule 03/14/19 levoFLOXacin [Levaquin -] 500 mg PO DAILY@0600 6 Days tablet 03/14/19 oxyCODONE HCL [Roxicodone -] 10 mg PO Q6H PRN tablet MDD 4 03/14/19
[2019-03-14] MEDS: CYANOCOBALAMIN (VITAMIN B-12) 1000 MCG/1 ML VIAL IM SCH (09:45)
[2019-03-14] MEDS: DOCUSATE SODIUM 100 MG CAPSULE (FP) PO SCH ×2 (09:46→21:33)
[2019-03-14] MEDS: oxyCODONE HCL 5 MG TABLET PO PRN ×2 (09:46→21:34)
[2019-03-14] MEDS: ASPIRIN COATED 81 MG TABLET.EC PO SCH (09:47)
[2019-03-14] MEDS: CYCLOBENZAPRINE HCL 10 MG TABLET (FP) PO PRN (09:47)
[2019-03-14] MEDS: LIDOCAINE 5% TOPICAL PATCH TP SCH (09:47)
[2019-03-14] MEDS ORDERED: ASCORBIC ACID 250 MG TABLET (FP) PO SCH (10:00)
[2019-03-14] MEDS ORDERED: MULTIVIT-MINERALS ORAL LIQUID PO SCH (10:00)
[2019-03-14] MEDS ORDERED: ZINC SULFATE 220 MG CAPSULE (FP) PO SCH (10:00)
[2019-03-14] MEDS ORDERED: PT OWN MED DRAWER 7, Y5N ONE (10:10)
[2019-03-14] MEDS: IRON POLYSACCHARIDES 150 MG CAPSULE PO SCH (10:14)
--- NOTE | 2019-03-14 12:44 | PN ---
Progress Note, Physician History of Present Illness: Pt seen and examined at bedside. She is awake and alert. She denies dysuria. - Current Medication List Current Medications: Active Medications Acetaminophen (Tylenol -) 650 mg PO Q6H PRN PRN Reason: FEVER Al Hydroxide/Mg Hydroxide (Mylanta Oral Suspension -) 30 ml PO Q6H PRN PRN Reason: DYSPEPSIA Albuterol Sulfate (Ventolin 0.083% Nebulizer Soln -) 1 amp NEB RQID [facility] Last Admin: 03/14/19 11:06 Dose: 1 amp Ascorbic Acid (Vitamin C -) 250 mg PO DAILY [facility] Last Admin: 03/14/19 10:14 Dose: 250 mg Aspirin (Ecotrin -) 81 mg PO DAILY [facility] Last Admin: 03/14/19 09:47 Dose: 81 mg Atorvastatin Calcium (Lipitor -) 40 mg PO HS [facility] Last Admin: 03/13/19 21:50 Dose: 40 mg Budesonide (Pulmicort 0.25 Mg Nebulizer -) 1 amp NEB RBID [facility] Last Admin: 03/14/19 07:25 Dose: Not Given Collagenase (Santyl -) 1 applic TP DAILY [facility]; Protocol Last Admin: 03/13/19 11:42 Dose: 1 applic Cyanocobalamin (Vitamin B12 Injection -) 1,000 mcg IM DAILY [facility] Last Admin: 03/14/19 09:45 Dose: 1,000 mcg Cyclobenzaprine HCl (Flexeril -) 10 mg PO BID PRN PRN Reason: MUSCLE SPASMS Last Admin: 03/14/19 09:47 Dose: 10 mg Docusate Sodium (Colace -) 100 mg PO BID [facility] Last Admin: 03/14/19 09:46 Dose: 100 mg Insulin Aspart (Novolog Vial Sliding Scale -) 1 vial SQ TIDAC [facility]; Protocol Last Admin: 03/14/19 11:44 Dose: Not Given Insulin Detemir (Levemir Vial) 30 units SQ AM [facility] Last Admin: 03/14/19 06:59 Dose: 30 unit Levofloxacin (Levaquin -) 500 mg PO DAILY@0600 [facility] Last Admin: 03/14/19 06:28 Dose: 500 mg Lidocaine (Lidoderm Patch -) 1 patch TP DAILY [facility] Last Admin: 03/14/19 09:47 Dose: 1 patch Lorazepam (Ativan -) 1 mg PO BID [facility] Last Admin: 03/13/19 21:49 Dose: 1 mg Meclizine HCl (Antivert -) 25 mg PO TID PRN PRN Reason: VERTIGO Last Admin: 03/13/19 21:50 Dose: 25 mg Miscellaneous (Lidoderm Patch Removal) 1 each MC DAILY@2200 [facility] Last Admin: 03/13/19 21:52 Dose: Not Given Oxycodone HCl (Roxicodone -) 10 mg PO Q6H PRN PRN Reason: PAIN LEVEL 6-10 Last Admin: 03/14/19 09:46 Dose: 10 mg Polyethylene Glycol (Miralax (For Daily Use) -) 17 gm PO TID [facility] Last Admin: 03/14/19 06:28 Dose: Not Given Polysaccharide Iron Complex (Niferex-150 -) 150 mg PO DAILY [facility] Last Admin: 03/14/19 10:14 Dose: 150 mg Pregabalin (Lyrica -) 150 mg PO TID [facility] Last Admin: 03/14/19 06:28 Dose: 150 mg Rivaroxaban (Xarelto) 15 mg PO 1800 [facility] Last Admin: 03/13/19 18:36 Dose: 15 mg Zinc Sulfate (Orazinc -) 220 mg PO DAILY [facility] Last Admin: 03/14/19 10:14 Dose: 220 mg - Objective Vital Signs: Vital Signs Temperature 98.2 F 03/14/19 09:44 Pulse Rate 87 03/14/19 09:44 Respiratory Rate 18 03/14/19 09:44 Blood Pressure 127/45 L 03/14/19 09:44 O2 Sat by Pulse Oximetry (%) 99 03/13/19 20:46 Constitutional: Yes: Calm Eyes: Yes: Conjunctiva Clear HENT: Yes: Atraumatic Neck: Yes: Supple Cardiovascular: Yes: S1, S2 Respiratory: Yes: CTA Bilaterally Gastrointestinal: Yes: Soft Genitourinary: Yes: WNL Extremities: Yes: Other (left aka) Edema: No Integumentary: Yes: Tattoos Neurological: Yes: Oriented Psychiatric: Yes: Oriented Labs: CBC, BMP 03/13/19 11:03 03/13/19 11:03 INR, PTT INR 1.00 (0.83-1.09) 03/08/19 08:30 Problem List - Problems (1) REBA (acute kidney injury) Code(s): N17.9 - ACUTE KIDNEY FAILURE, UNSPECIFIED (2) Elevated CK Code(s): R74.8 - ABNORMAL LEVELS OF OTHER SERUM ENZYMES Assessment/Plan Current Medications Generic Name Dose Route Start Last Admin Trade Name Radha PRN Reason Stop Dose Admin Acetaminophen 650 mg 03/12/19 17:25 Tylenol - PO Q6H PRN FEVER Al Hydroxide/Mg Hydroxide 30 ml 03/12/19 17:25 Mylanta Oral Suspension - PO Q6H PRN DYSPEPSIA Albuterol Sulfate 1 amp 03/12/19 20:00 03/14/19 11:06 Ventolin 0.083% Nebulizer Soln - NEB 1 amp RQID [facility] Administration Ascorbic Acid 250 mg 03/14/19 10:00 03/14/19 10:14 Vitamin C - PO 250 mg DAILY [facility] Administration Aspirin 81 mg 03/13/19 10:00 03/14/19 09:47 Ecotrin - PO 81 mg DAILY [facility] Administration Atorvastatin Calcium 40 mg 03/12/19 22:00 03/13/19 21:50 Lipitor - PO 40 mg HS [facility] Administration Budesonide 1 amp 03/12/19 20:00 03/14/19 07:25 Pulmicort 0.25 Mg Nebulizer - NEB Not Given RBID [facility] Collagenase 1 applic 03/13/19 11:30 03/13/19 11:42 Santyl - TP 1 applic DAILY [facility] Administration Protocol Cyanocobalamin 1,000 mcg 03/13/19 10:00 03/14/19 09:45 Vitamin B12 Injection - IM 1,000 mcg DAILY [facility] Administration Cyclobenzaprine HCl 10 mg 03/12/19 17:25 03/14/19 09:47 Flexeril - PO 10 mg BID PRN Administration MUSCLE SPASMS Docusate Sodium 100 mg 03/12/19 22:00 03/14/19 09:46 Colace - PO 100 mg BID [facility] Administration Insulin Aspart 1 vial 03/13/19 07:00 03/14/19 11:44 Novolog Vial Sliding Scale - SQ Not Given TIDAC [facility] Protocol Insulin Detemir 30 units 03/13/19 07:00 03/14/19 06:59 Levemir Vial SQ 30 unit AM [facility] Administration Levofloxacin 500 mg 03/14/19 06:00 03/14/19 06:28 Levaquin - PO 500 mg DAILY@0600 [facility] Administration Lidocaine 1 patch 03/13/19 10:00 03/14/19 09:47 Lidoderm Patch - TP 1 patch DAILY [facility] Administration Lorazepam 1 mg 03/12/19 22:00 03/13/19 21:49 Ativan - PO 1 mg BID [facility] Administration Meclizine HCl 25 mg 03/12/19 17:25 03/13/19 21:50 Antivert - PO 25 mg TID PRN Administration VERTIGO Miscellaneous 1 each 03/12/19 22:00 03/13/19 21:52 Lidoderm Patch Removal MC Not Given DAILY@2200 [facility] Oxycodone HCl 10 mg 03/13/19 10:13 03/14/19 09:46 Roxicodone - PO 10 mg Q6H PRN Administration PAIN LEVEL 6-10 Polyethylene Glycol 17 gm 03/12/19 22:00 03/14/19 06:28 Miralax (For Daily Use) - PO Not Given TID [facility] Polysaccharide Iron Complex 150 mg 03/13/19 10:00 03/14/19 10:14 Niferex-150 - PO 150 mg DAILY [facility] Administration Pregabalin 150 mg 03/12/19 22:00 03/14/19 06:28 Lyrica - PO 150 mg TID [facility] Administration Rivaroxaban 15 mg 03/12/19 18:00 03/13/19 18:36 Xarelto PO 15 mg 1800 [facility] Administration Zinc Sulfate 220 mg 03/14/19 10:00 03/14/19 10:14 Orazinc - PO 220 mg DAILY [facility] Administration Impression 1. REBA 2. CKD 3. PVD 4. DM 5. protein s def 6. urinary retention 7. CAD 8. PVD 9. rhabdo Plan - no new labs - can see in office - renal function had stabilized - avoid nsaids - avoid nephrotoxins
[2019-03-14] MEDS: LORazepam 1 MG TABLET PO SCH ×2 (13:12→21:33)
[2019-03-14] MEDS: COLLAGENASE CLOSTRIDIUM HIST. 30 GRAMS TUBE TP SCH (15:15)
[2019-03-14 16:58] VITALS: BP 93/53; PULSE 98; TEMP 98.6
[2019-03-14] MEDS: RIVAROXABAN 15 MG TABLET PO SCH (18:04)
[2019-03-14] MEDS: LIDOCAINE PATCH REMOVAL MC SCH (21:33)
[2019-03-14] MEDS: ATORVASTATIN CA 40 MG TABLET (FP) PO SCH (21:33)
== END 2019-03-14 23:09 | DRG 469 ==
LOC: JER 07:31 → JERBED 13:49 → J4W 15:37 → J8W 03-12 16:56
PROVIDERS: ADMIT Family Medicine; ATTEND Family Medicine
DX: N17.9 Acute kidney failure, unspecified (principal); E87.2 Acidosis; M62.82 Rhabdomyolysis; J18.9 Pneumonia, unspecified organism; D72.829 Elevated white blood cell count, unspecified; R74.8 Abnormal levels of other serum enzymes; R33.9 Retention of urine, unspecified; I25.10 Atherosclerotic heart disease of native coronary artery without angina pectoris; I73.9 Peripheral vascular disease, unspecified; D68.59 Other primary thrombophilia; K21.9 Gastro-esophageal reflux disease without esophagitis; D64.9 Anemia, unspecified; J44.9 Chronic obstructive pulmonary disease, unspecified; Z98.61 Coronary angioplasty status; I12.9 Hypertensive chronic kidney disease with stage 1 through stage 4 chronic kidney disease, or unspecified chronic kidney disease; N18.9 Chronic kidney disease, unspecified; E11.22 Type 2 diabetes mellitus with diabetic chronic kidney disease; E78.5 Hyperlipidemia, unspecified; E11.51 Type 2 diabetes mellitus with diabetic peripheral angiopathy without gangrene; L89.153 Pressure ulcer of sacral region, stage 3; L89.323 Pressure ulcer of left buttock, stage 3
CPT/HCPCS: 36415; 36600; 71045-TC-FY; 71250-TC; 74176-TC; 80053; 81003; 82550; 82553; 82607; 82728; 82746; 82803; 82962; 83540; 83550; 83605; 84439; 84443; 84484; 84703; 85025; 85027; 85610; 85730; 87040; 87070; 87077; 87086; 87186; 87205; 87899; 93005; 93010; 94640; 97116-GP; 97162-GP; 99282-25; E0186; J0131; J7030

== ENCOUNTER 2019-03-20 13:29 | Inpatient (IN) | payer OTHER | END 2019-03-27 20:24 | LOC: JER 13:29 → JERBED 21:53 → J7W 23:44 ==

== ENCOUNTER 2019-04-08 19:38 | Inpatient (IN) | payer OTHER ==
[2019-04-08] MEDS ORDERED: morphine SULFATE 4 MG/ML VIAL IVPUSH ONE (22:56)
[2019-04-08] MEDS ORDERED: morphine SULFATE 4 MG/ML VIAL ONE (23:34)
[2019-04-08 23:43] LABS: HEMATOCRIT 32.5 % (32.4-45.2); HEMOGLOBIN 10.5 GM/dL (10.7-15.3); MCH 26.8 pg (25.7-33.7); MCHC 32.5 g/dl (32.0-36.0); MEAN CELL VOLUME 82.6 fl (80-96); MEAN PLT VOLUME 8.9 fl (7.5-11.1); PLATELET COUNT 384 K/MM3 (134-434); RBC 3.93 M/mm3 (3.60-5.2); RDW 16.3 % (11.6-15.6); WHITE BLOOD COUNT 15.1 K/mm3 (4.0-10.0)
--- NOTE | 2019-04-09 00:18 | PDOC ---
Documentation entered by Rita Cardoza SCRIBE, acting as scribe for Krista Nagy DO. Krista Nagy DO: This documentation has been prepared by the Nani miner Brenda, SCRIBE, under my direction and personally reviewed by me in its entirety. I confirm that the documentation accurately reflects all work , treatment, procedures, and medical decision making performed by me. History of Present Illness - General Chief Complaint: Wound Stated Complaint: PAIN Time Seen by Provider: 04/08/19 21:53 History Source: Patient Exam Limitations: No Limitations - History of Present Illness Initial Comments: 04/08/19 22:48 The patient is a 44 year old female, with a significant PMH of diabetes, hyperlipidemia, hypertension, CVA, COPD, CKD, PAD, NE(2014) cad S/P PDI 2014, and protein deficiency (on coumadin), who presents to the emergency department with worsening pain and soreness on left buttocks wound accompanied by drainage. She reports having chronic pain in the same area, but reports it being severe today and taking oxycodone to no avail. Patient notes being at [facility] recently due to infection of the sight. The patient denies chest pain, shortness of breath, headache and dizziness. Denies fever, chills, nausea, vomiting, diarrhea and constipation. Denies dysuria, frequency, urgency and hematuria. Denies any other symptoms. Allergies: NKA, NKDA. Past surgical history: PVD left leg amputation, perforated bowel,hernia repair, stent (bypass), Cholecystectomy, Left Hip Orif (2017) Social history: Denies any tobacco use, alcohol use or illicit drug use. PCP: Dr. Roger Conley Past History - Past Medical History Allergies/Adverse Reactions: Allergies Allergy/AdvReac Type Severity Reaction Status Date / Time No Known Drug Allergies Allergy Verified 03/20/19 13:43 Home Medications: Ambulatory Orders Budesonide [Pulmicort 0.25 mg Nebulizer -] 1 neb PO BID 11/21/15 Albuterol 0.083% Nebulizer Carolyn [Ventolin 0.083% Nebulizer Soln -] 1 amp NEB Q6HPO amp 12/15/15 Pregabalin [Lyrica -] 150 mg PO TID 04/15/16 Acetaminophen [Tylenol .Regular Strength -] 650 mg PO Q6H PRN #0 tablet Docusate Sodium [Colace -] 100 mg PO BID #60 11/22/16 Iron Polysaccharides [Niferex-150 -] 150 mg PO DAILY #30 11/22/16 Meclizine HCl [Antivert -] 25 mg PO TID PRN #90 tablet 11/22/16 Aspirin Coated [Ecotrin -] 81 mg PO DAILY tablet.ec 01/25/18 Cyclobenzaprine HCl [Flexeril -] 1 tab PO BID PRN 06/28/18 Rivaroxaban [Xarelto] 1 tab PO DAILY 06/28/18 LORazepam [Ativan] 1 mg PO BID MDD 2 01/10/19 Atorvastatin Ca [Lipitor] 40 mg PO HS #30 tablet 01/16/19 Insulin Sliding Scale [Novolog Vial Sliding Scale -] 1 vial SQ TIDAC units 08/21 oxyCODONE HCL [Roxicodone -] 10 mg PO Q6H PRN tablet MDD 4 03/14/19 Amox-Tr/K Cl [Augmentin 500-125mg Tablet -] 1 each PO BID 14 Days #28 tablet Collagenase Clostridium Hist. [Santyl -] 1 applic TP DAILY tube 03/26/19 Insulin (Levemir) [Levemir Vial] 30 units SQ HS units 03/26/19 Nystatin Cream [Mycostatin Cream -] 1 applic TP BID applic 03/26/19 Polyethylene Glycol 3350 [Miralax 119 gm Btl -] 17 gm PO DAILY bottle 03/26/19 Pramipexole Dihydrochloride [Mirapex -] 0.25 mg PO HS tablet 03/26/19 Anemia: No Asthma: Yes Cancer: No Cardiac Disorders: Yes (mild heart attack, 1 stent,CAD S/P PDI 2014) CVA: Yes (01/2015) COPD: No CHF: No DVT: No (PVD left leg amputation) Dementia: No Diabetes: Yes GI Disorders: Yes (perforated bowel,divertic,GERD) Disorders: Yes (Chronic kidney disease,not on dialysis) HTN: Yes Hypercholesterolemia: Yes Liver Disease: No Psychiatric Problems: Yes (anxiety) Seizures: No Thyroid Disease: No - Surgical History Abdominal Surgery: Yes (perforated bowel,hernia repair) Appendectomy: No Cardiac Surgery: Yes (stent ,bypass) Cholecystectomy: Yes Lung Surgery: No Neurologic Surgery: No Orthopedic Surgery: No (L HIP ORIF 2017) - Family Disease History Family Disease History: Diabetes: Father, Mother, Heart Disease: Father - Reproductive History Tubal Ligation: Yes (2003) - Immunization History Immunization Up to Date: Yes - Suicide/Smoking/Psychosocial Hx Smoking Status: No Smoking History: Former smoker Have you smoked in the past 12 months: No Number of Cigarettes Smoked Daily: 5 If you are a former smoker, when did you quit?: 6 years ago Information on smoking cessation initiated: No 'Breaking Loose' booklet given: 07/14/17 Hx Alcohol Use: No Drug/Substance Use Hx: No Substance Use Type: None Hx Substance Use Treatment: No Review of Systems - Review of Systems Able to Perform ROS?: Yes Comments:: 04/08/19 22:50 GENERAL/CONSTITUTIONAL: No fever or chills. No weakness. HEAD, EYES, EARS, NOSE AND THROAT: No change in vision. No ear pain or discharge. No sore throat. GASTROINTESTINAL: No nausea, vomiting, diarrhea or constipation. GENITOURINARY: No dysuria, frequency, or change in urination. CARDIOVASCULAR: No chest pain or shortness of breath. RESPIRATORY: No cough, wheezing, or hemoptysis. MUSCULOSKELETAL: No joint or muscle swelling or pain. No neck or back pain. SKIN: (+) Possible infection of wound on left buttocks. (+) Pain/soreness on sight accompanied by drainage. No rash NEUROLOGIC: No headache, vertigo, loss of consciousness, or change in strength/ sensation. ENDOCRINE: No increased thirst. No abnormal weight change. HEMATOLOGIC/LYMPHATIC: No anemia, easy bleeding, or history of blood clots. ALLERGIC/IMMUNOLOGIC: No hives or skin allergy. *Physical Exam - Vital Signs Last Vital Signs Temp Pulse Resp BP Pulse Ox 98.4 F 97 H 18 91/71 96 04/08/19 20:20 04/08/19 20:20 04/08/19 20:20 04/08/19 20:20 04/08/19 20:20 - Physical Exam Comments: 04/08/19 22:42 GENERAL: Awake, in no acute distress HEAD: No signs of trauma EYES: PERRLA, EOMI, sclera anicteric, conjunctiva clear, visual acuity grossly intact NECK: Normal ROM, supple, no lymphadenopathy, JVD, or masses LUNGS: Breath sounds equal, clear to auscultation bilaterally. No wheezes, and no crackles. Normal work of breathing. HEART: Regular rate and rhythm, normal S1 and S2, no murmurs, rubs or gallops ABDOMEN: Soft, nontender, normoactive bowel sounds. No guarding, no rebound. No masses. Non-distended. CHEST WALL: BACK: No midline tenderness. EXTREMITIES: left AKA NEUROLOGICAL: Alert, and oriented x4, SKIN: large sacral decub ulcer ext to b/l gluteal /perianal regions, left buttock wound with scant purulent appearing material present, no odor 04/09/19 03:45 04/09/19 03:52 ED Treatment Course - LABORATORY CBC & Chemistry Diagram: 04/08/19 23:28 04/08/19 23:28 Medical Decision Making - Medical Decision Making 04/09/19 03:57 44-year-old female with pain to her sacral decubitus ulcer region Patient has an elevation of her white blood cell count CT scan of the pelvis shows no specific collection consistent with abscess that does show some increased thickness to the area Patient admitted to medical service for further management *DC/Admit/Observation/Transfer Diagnosis at time of Disposition: Infected pressure ulcer Qualifiers: Pressure injury stage: unstageable Qualified Code(s): L89.95 - Pressure ulcer of unspecified site, unstageable; L08.9 - Local infection of the skin and subcutaneous tissue, unspecified - Discharge Dispostion Condition at time of disposition: Stable - Referrals - Patient Instructions - Post Discharge Activity
[2019-04-09 00:21] LABS: BILIRUBIN,TOTAL 0.2 mg/dL (0.2-1); BLOOD UREA NITROGEN 8.6 mg/dL (7-18); CALCIUM 8.5 mg/dL (8.5-10.1); CREATININE 1.3 mg/dL (0.55-1.3); POTASSIUM 4.1 mmol/L (3.5-5.1); TOT PROT 7.8 g/dl (6.4-8.2)
--- NOTE | 2019-04-09 03:24 | HP ---
CHIEF COMPLAINT: Left buttocks pain PCP: Dr. Conley HISTORY OF PRESENT ILLNESS: 44 y/o F, extensive pmh of decubitus ulcers, CVA, PAD, CAD, MS s/p cath, COPD, Asthma, CKD, HTN, DM, left Below knee amputation, presents to the ED c/o of worsening left buttock decubitus ulcer and pain. Pt said the pain and ulcer has worsened since her last admission 2 weeks ago. She was admitted 2 weeks ago for the same decubitus ulcer, during which CT pelvis showed fluid collection/abscess , which Dr. Torres, vascular surgery, drained. She was then treated with Unasyn and sent home on Augmentin with instructions to continue abx, follow up wound care and visiting nurses service. She reports that the visiting nurses providing inadequate care, hence led to the worsening of her ulcer. During her previous visit, CT pelvis had shown Currently pt is stable and still c/o of pain. She admits to diarrhea. Denies fevers, chills, n/v, sob, headaches, chest pain, numbness or tingling. ER course was notable for: (1)Morphine given (2)CT pelvis ordered-pending (3)BloodCx and UrineCx ordered Recent Travel: denies PAST MEDICAL HISTORY: CVA- 4yrs ago, DM, HTN, COPD, Asthma, HLD, CKD, PAD, CAD, MS s/p Cath 4 yrs ago , left buttock decubitus ulcer, right lateral foot ulcer-healing well. PAST SURGICAL HISTORY: Hernia repair, Left leg amputation, chlecystectomy, perforated bowel, tubal ligation 2003 Social History: Smoking: Denies Alcohol: Denies Drugs: Denies Family History: noncontributory Allergies No Known Drug Allergies Allergy (Verified 03/20/19 13:43) HOME MEDICATIONS: Home Medications Medication Instructions Recorded Budesonide [Pulmicort 0.25 mg 1 neb PO BID 11/21/15 Nebulizer -] Albuterol 0.083% Nebulizer Carolyn 1 amp NEB Q6HPO amp 12/15/15 [Ventolin 0.083% Nebulizer Soln -] Pregabalin [Lyrica -] 150 mg PO TID 04/15/16 Acetaminophen [Tylenol .Regular 650 mg PO Q6H PRN #0 tablet 11/22/16 Strength -] Docusate Sodium [Colace -] 100 mg PO BID #60 11/22/16 Iron Polysaccharides [Niferex-150 150 mg PO DAILY #30 11/22/16 -] Meclizine HCl [Antivert -] 25 mg PO TID PRN #90 tablet 11/22/16 Aspirin Coated [Ecotrin -] 81 mg PO DAILY tablet.ec 01/25/18 Cyclobenzaprine HCl [Flexeril -] 1 tab PO BID PRN 06/28/18 Rivaroxaban [Xarelto] 1 tab PO DAILY 06/28/18 LORazepam [Ativan] 1 mg PO BID MDD 2 01/10/19 Atorvastatin Ca [Lipitor] 40 mg PO HS #30 tablet 01/16/19 Insulin Sliding Scale [Novolog 1 vial SQ TIDAC units 03/14/19 Vial Sliding Scale -] oxyCODONE HCL [Roxicodone -] 10 mg PO Q6H PRN tablet MDD 4 03/14/19 Amox-Tr/K Cl [Augmentin 500-125mg 1 each PO BID 14 Days #28 tablet 03/26/19 Tablet -] Collagenase Clostridium Hist. 1 applic TP DAILY tube 03/26/19 [Santyl -] Insulin (Levemir) [Levemir Vial] 30 units SQ HS units 03/26/19 Nystatin Cream [Mycostatin Cream -] 1 applic TP BID applic 03/26/19 Polyethylene Glycol 3350 [Miralax 17 gm PO DAILY bottle 03/26/19 119 gm Btl -] Pramipexole Dihydrochloride 0.25 mg PO HS tablet 03/26/19 [Mirapex -] REVIEW OF SYSTEMS CONSTITUTIONAL: Absent: fever, chills, diaphoresis, generalized weakness, malaise CARDIOVASCULAR: Absent: chest pain, syncope, palpitations, lightheadedness, peripheral edema RESPIRATORY: Absent: cough, shortness of breath, dyspnea with exertion, wheezing GASTROINTESTINAL: Admit: Diarrhea Absent: abdominal pain, abdominal distension, nausea, vomiting, constipation, MUSCULOSKELETAL: Absent: myalgia, arthralgia, SKIN: Absent: rash, itching, NEUROLOGIC: Absent: headache, focal weakness or paresthesias, dizziness, unsteady gait, seizure, mental status changes, bladder or bowel incontinence PSYCHIATRIC: admits: anxiety PHYSICAL EXAMINATION Vital Signs - 24 hr Last Vital Signs Temp Pulse Resp BP Pulse Ox 98.4 F 97 H 18 91/71 96 04/08/19 20:20 04/08/19 20:20 04/08/19 20:20 04/08/19 20:20 04/08/19 20:20 GENERAL: Awake, alert, and fully oriented, in no acute distress. EYES: Pupils equal, round and reactive to light, extraocular movements intact, LUNGS: Breath sounds equal, clear to auscultation bilaterally. Mild wheezes, and no crackles. HEART: Regular rate and rhythm, normal S1 and S2 without murmur, rub or gallop. ABDOMEN: Soft, nontender, not distended, normoactive bowel sounds, no guarding, no rebound, no masses. LOWER EXTREMITIES:-Left buttock 3x3 decub ulcer, crossing over. Necrotic tissue and eschar present. Unstageable. -Right lateral foot ulcer. Right foot 2+ pulses, warm, well- perfused. No calf tenderness. No peripheral edema. -Left foot amputated NEUROLOGICAL: Cranial nerves II-XII intact. Normal speech. Normal gait. PSYCHIATRIC: Cooperative. Good eye contact. Appropriate mood and affect. SKIN: Warm, dry, normal turgor, no rashes or lesions noted, normal capillary refill. Laboratory Results - last 24 hr CBC, BMP 04/08/19 23:28 04/08/19 23:28 ASSESSMENT/PLAN: 43 y/o F, w/ PMH of decubitus ulcers, CAD, MS s/p PCI, PAD, presents to the ED w / worsening 3x3 Decubitus ulcer on left back (buttocks) crossing over, Unstageable. # Sepsis 2/2 to Decubitus ulcer resistant to Abx treatment WBC- 15.1, tachy at 97 Zosyn plus 1 dose Vancomycin Switched to Ertapenem Vascular surgery consult- Dr. Torres- wound care for debridement ID consult- Dr. Butcher Oxycodone 10mg Q6H PRN- home med CT pelvis-pending Urine Cx- pending Blood Cx- pending Keep NPO for debridement Turn pt regularly to reduce pressure Low pressure bed #DM A1c 8.6 Insulin sliding scale ordered r/p BGM Continue home meds- #HTN Bp 91/71 Hold home med monitor BP #DVT ppx High risk pt Continue home med- Xeralto FEN: Low sodium, diabetic diet Dispo: continue ertapenem, f/u on Cx and CT pelvis, monitor BP, symptomatic management Visit type - Emergency Visit Emergency Visit: Yes ED Registration Date: 04/09/19 Care time: The patient presented to the Emergency Department on the above date and was hospitalized for further evaluation of their emergent condition. - New Patient This patient is new to me today: Yes Date on this admission: 04/13/19 - Critical Care Critical Care patient: No ATTENDING PHYSICIAN STATEMENT I saw and evaluated the patient. I reviewed the resident's note and discussed the case with the resident. I agree with the resident's findings and plan as documented. SUBJECTIVE: OBJECTIVE: ASSESSMENT AND PLAN:
--- NOTE | 2019-04-09 03:42 | PN ---
Teaching Attending Note Name of Resident: Jin Ureña ATTENDING PHYSICIAN STATEMENT I saw and evaluated the patient. I reviewed the resident's note and discussed the case with the resident. I agree with the resident's findings and plan as documented. SUBJECTIVE: This is a 44 year old woman with a history of HTN, hyperlipidemia, CAD, AR, type 2 DM, anxiety, CKD, COPD, CVA, migraine headaches, restless leg syndrome, PAD, LLE AKA, sacral pressure ulcer who comes to the ED complaining of worsening sacral wound pain. She had been admitted 03/08-03/14 and treated for pneumonia. At that time she was thought to have a gluteal deep tissue injury. Wound culture grew MSSA, ESBL Proteus, and Corynebacterium. This was thought to be from colonization. She went home with home care and returned on 03/20 with worsening pain from the wound. She felt the visiting nurses weren't treating the wound appropriately. This time it was thought to be an infected unstageable pressure ulcer and she underwent excisional debridement. She was treated empirically with Invanz and Vancomycin. Santyl was used for local wound care. Wound culture grew E. faecalis, coag neg Staph, and Corynebacterium, and the antibiotic regimen was changed to Unasyn. She again went home with home care on 03/27 on Augmentin. She returns today with the same complaints and again says the visiting nurses are not treating the wound appropriately - she says she has not received any wound care supplies including Santyl at home. OBJECTIVE: Vital Signs Period Temp Pulse Resp BP Sys/Green Pulse Ox Last 24 Hr 98.4 F 97 18 91/71 96 HEART: S1S2, RRR LUNGS: Clear ABDOMEN: Soft, non-tender, non-distended, normal BS EXTREMITIES: No edema, s/p left AKA SKIN: 7.5 x 7.5 cm of right buttock, gluteal cleft, and left buttock with fibrinous exudate, eschar, small amount of purulent drainage. Deep tissue injury of lateral right heel. Laboratory Tests 04/08/19 04/08/19 04/08/19 23:28 23:28 23:28 WBC 15.1 H RBC 3.93 Hgb 10.5 L Hct 32.5 MCV 82.6 MCH 26.8 MCHC 32.5 RDW 16.3 H Plt Count 384 MPV 8.9 Sodium 143 Potassium 4.1 Chloride 114 H Carbon Dioxide 22 Anion Gap 7 L BUN 8.6 Creatinine 1.3 Est GFR (CKD-EPI)AfAm 56.97 Est GFR (CKD-EPI)NonAf 49.16 Random Glucose 138 H Lactic Acid Calcium 8.5 Total Bilirubin 0.2 AST 7 L ALT 11 L Alkaline Phosphatase 185 H Creatine Kinase 135 Total Protein 7.8 Albumin 3.0 L Serum , Qual Urine HCG, Qual 04/08/19 04/08/19 04/08/19 23:28 23:28 23:45 WBC RBC Hgb Hct MCV MCH MCHC RDW Plt Count MPV Sodium Potassium Chloride Carbon Dioxide Anion Gap BUN Creatinine Est GFR (CKD-EPI)AfAm Est GFR (CKD-EPI)NonAf Random Glucose Lactic Acid 1.2 Calcium Total Bilirubin AST ALT Alkaline Phosphatase Creatine Kinase Total Protein Albumin Serum , Qual Negative Urine HCG, Qual Cancelled Home Medications Medication Instructions Recorded Budesonide [Pulmicort 0.25 mg 1 neb PO BID 11/21/15 Nebulizer -] Albuterol 0.083% Nebulizer Carolyn 1 amp NEB Q6HPO amp 12/15/15 [Ventolin 0.083% Nebulizer Soln -] Pregabalin [Lyrica -] 150 mg PO TID 04/15/16 Acetaminophen [Tylenol .Regular 650 mg PO Q6H PRN #0 tablet 11/22/16 Strength -] Docusate Sodium [Colace -] 100 mg PO BID #60 11/22/16 Iron Polysaccharides [Niferex-150 150 mg PO DAILY #30 11/22/16 -] Meclizine HCl [Antivert -] 25 mg PO TID PRN #90 tablet 11/22/16 Aspirin Coated [Ecotrin -] 81 mg PO DAILY tablet.ec 01/25/18 Cyclobenzaprine HCl [Flexeril -] 1 tab PO BID PRN 06/28/18 Rivaroxaban [Xarelto] 1 tab PO DAILY 06/28/18 LORazepam [Ativan] 1 mg PO BID MDD 2 01/10/19 Atorvastatin Ca [Lipitor] 40 mg PO HS #30 tablet 01/16/19 Insulin Sliding Scale [Novolog 1 vial SQ TIDAC units 03/14/19 Vial Sliding Scale -] oxyCODONE HCL [Roxicodone -] 10 mg PO Q6H PRN tablet MDD 4 03/14/19 Amox-Tr/K Cl [Augmentin 500-125mg 1 each PO BID 14 Days #28 tablet 03/26/19 Tablet -] Collagenase Clostridium Hist. 1 applic TP DAILY tube 03/26/19 [Santyl -] Insulin (Levemir) [Levemir Vial] 30 units SQ HS units 03/26/19 Nystatin Cream [Mycostatin Cream -] 1 applic TP BID applic 03/26/19 Polyethylene Glycol 3350 [Miralax 17 gm PO DAILY bottle 03/26/19 119 gm Btl -] Pramipexole Dihydrochloride 0.25 mg PO HS tablet 03/26/19 [Mirapex -] ASSESSMENT AND PLAN: This is a 44 year old woman with a history of HTN, hyperlipidemia, CAD, AR, type 2 DM, anxiety, CKD, COPD, CVA, migraine headaches, restless leg syndrome, PAD, LLE AKA, sacral pressure ulcer who presented to the ED with worsening sacral wound pain. 1. Sepsis (leukocytosis, tachycardia) secondary to infected unstageable sacral pressure ulcer - Empiric Invanz, Vancomycin - previous culture grew ESBL Proteus thought to be colonization - Pain control - Follow up wound culture, blood cultures - Surgery, ID consults 2. HTN - On no medication 3. Hyperlipidemia - Continue Lipitor 4. CAD, history of AR - Continue aspirin, Lipitor 5. Type 2 DM with peripheral neuropathy - Continue Levemir, Novolog sliding scale, Lyrica 6. Anxiety disorder - Continue Ativan 7. COPD - Stable - Continue Pulmicort, albuterol nebs as needed 8. Stage 3 CKD - Stable 9. History of CVA - Continue aspirin, Lipitor 10. PAD, history of left AKA 11. Restless leg syndrome - Continue Mirapex
[2019-04-09] MEDS ORDERED: VANCOMYCIN 1 GM in D5W (PRE-DOCKED) 1,000 MG/250 ML IVPB ONE (04:03)
[2019-04-09] MEDS ORDERED: MECLIZINE HCL 25 MG TABLET (FP) PO PRN (04:06)
[2019-04-09] MEDS ORDERED: CYCLOBENZAPRINE HCL 10 MG TABLET (FP) PO PRN (04:06)
[2019-04-09] MEDS: oxyCODONE HCL 5 MG TABLET PO PRN ×3 (05:49→18:32)
[2019-04-09] MEDS: PREGABALIN 75 MG CAPSULE PO SCH ×3 (05:49→21:36)
[2019-04-09] MEDS: INSULIN (LEVEMIR) 100 UNITS/ML UNITS SQ SCH (06:02)
[2019-04-09] MEDS: INSULIN SLIDING SCALE (NOVOLOG) 1 VIAL SQ SCH ×4 (06:02→21:37)
[2019-04-09] MEDS: ALBUTEROL SO4 0.083% IH SOL 2.5 MG/3 ML VIAL.NEB. NEB SCH ×4 (07:30→20:15)
[2019-04-09] MEDS ORDERED: ERTAPENEM SODIUM 1 GM in SODIUM CHLORIDE 50 ML IVPB ONE (08:00)
--- NOTE | 2019-04-09 08:02 | PN ---
Progress Note, Physician - Current Medication List Current Medications: Active Medications Albuterol Sulfate (Ventolin 0.083% Nebulizer Soln -) 1 amp NEB RQID [facility] Aspirin (Ecotrin -) 81 mg PO DAILY [facility] Atorvastatin Calcium (Lipitor -) 40 mg PO HS [facility] Collagenase (Santyl -) 1 applic TP DAILY [facility]; Protocol Cyclobenzaprine HCl (Flexeril -) 10 mg PO BID PRN PRN Reason: MUSCLE SPASMS Piperacillin Sod/Tazobactam (Sod 3.375 gm/ Dextrose) 50 mls @ 100 mls/hr IVPB Q6H-IV [facility]; Protocol Stop: 04/09/19 15:29 Ertapenem 1 gm/ Sodium (Chloride) 50 mls @ 100 mls/hr IVPB ONCE ONE Stop: 04/09/19 08:29 Insulin Aspart (Novolog Vial Sliding Scale -) 1 vial SQ ACHS [facility]; Protocol Last Admin: 04/09/19 06:02 Dose: 2 units Insulin Detemir (Levemir Vial) 30 units SQ AM [facility] Last Admin: 04/09/19 06:02 Dose: 30 units Meclizine HCl (Antivert -) 25 mg PO TID PRN PRN Reason: VERTIGO Oxycodone HCl (Roxicodone -) 10 mg PO Q6H PRN PRN Reason: PAIN LEVEL 6-10 Last Admin: 04/09/19 05:49 Dose: 10 mg Pramipexole Dihydrochloride (Mirapex -) 0.25 mg PO HS [facility] Pregabalin (Lyrica -) 150 mg PO TID [facility] Last Admin: 04/09/19 05:49 Dose: 150 mg Rivaroxaban (Xarelto) 15 mg PO DAILY@1800 [facility] - Objective Vital Signs: Vital Signs Temperature 98.5 F 04/09/19 04:56 Pulse Rate 84 04/09/19 04:56 Respiratory Rate 18 04/09/19 04:56 Blood Pressure 126/72 04/09/19 04:56 O2 Sat by Pulse Oximetry (%) 97 04/09/19 04:56 Cardiovascular: Yes: Regular Rate and Rhythm Respiratory: Yes: Regular, CTA Bilaterally Gastrointestinal: Yes: Normal Bowel Sounds, Soft Integumentary: Yes: Pressure Ulcer Wound/Incision: Yes: Dressing Removed, Excoriated Labs: CBC, BMP 04/08/19 23:28 04/08/19 23:28 Problem List - Problems (1) Sepsis Assessment/Plan: -secondary to infected unstageable sacral pressure ulcer - Empiric Invanz, Vancomycin - previous culture grew ESBL Proteus thought to be colonization - Pain control - Follow up wound culture, blood cultures Code(s): A41.9 - SEPSIS, UNSPECIFIED ORGANISM (2) Infected pressure ulcer Assessment/Plan: abx wound care per surg Code(s): L89.90 - PRESSURE ULCER OF UNSPECIFIED SITE, UNSPECIFIED STAGE; L08.9 - LOCAL INFECTION OF THE SKIN AND SUBCUTANEOUS TISSUE, UNSP Qualifiers: Pressure injury stage: unstageable Qualified Code(s): L89.95 - Pressure ulcer of unspecified site, unstageable; L08.9 - Local infection of the skin and subcutaneous tissue, unspecified (3) Anxiety Assessment/Plan: continue with ativan Code(s): F41.9 - ANXIETY DISORDER, UNSPECIFIED (4) COPD (chronic obstructive pulmonary disease) Assessment/Plan: inhalers Code(s): J44.9 - CHRONIC OBSTRUCTIVE PULMONARY DISEASE, UNSPECIFIED Qualifiers: Emphysema type: unspecified (5) Cerebrovascular accident Assessment/Plan: on asa Code(s): I63.9 - CEREBRAL INFARCTION, UNSPECIFIED (6) Chronic kidney disease (CKD) Assessment/Plan: stable Code(s): N18.9 - CHRONIC KIDNEY DISEASE, UNSPECIFIED (7) Diabetes mellitus Assessment/Plan: - - Continue Levemir, Novolog sliding scale Code(s): E11.9 - TYPE 2 DIABETES MELLITUS WITHOUT COMPLICATIONS
[2019-04-09] MEDS ORDERED: DEXTROSE 5%-WATER - 50 ML IVPB ONE ×2 (08:22→17:12)
[2019-04-09] MEDS ORDERED: PIPERACILLIN/TAZOBACTAM 3.375 GM VIAL IVPB ONE ×2 (08:22→17:12)
[2019-04-09] MEDS ORDERED: PIPERACILLIN/TAZOB 3.375 GM 3.375 GM in DEXTROSE 5%-WATER - 50 ML IVPB SCH ×2 (09:00→21:00)
[2019-04-09] MEDS: ASPIRIN COATED 81 MG TABLET.EC PO SCH (09:47)
[2019-04-09] MEDS ORDERED: INSULIN (NOVOLOG) ASPART 100 UNITS/ML 10ML VIAL ONE ×2 (11:04→21:24)
[2019-04-09] MEDS: COLLAGENASE CLOSTRIDIUM HIST. 30 GRAMS TUBE TP SCH (11:10)
[2019-04-09 11:30] LABS: BASO % 0.7 % (0-2.0); EOS % 5.7 % (0-4.5); HEMATOCRIT 30.9 % (32.4-45.2); HEMOGLOBIN 9.8 GM/dL (10.7-15.3); MCH 26.8 pg (25.7-33.7); MCHC 31.8 g/dl (32.0-36.0); MEAN CELL VOLUME 84.2 fl (80-96); MEAN PLT VOLUME 9.3 fl (7.5-11.1); MONO % 7.5 % (3.8-10.2); NEUT % 45.1 % (42.8-82.8); PLATELET COUNT 322 K/MM3 (134-434); RBC 3.67 M/mm3 (3.60-5.2); RDW 16.6 % (11.6-15.6); WHITE BLOOD COUNT 10.4 K/mm3 (4.0-10.0)
[2019-04-09 12:09] LABS: ALBUMIN 2.6 g/dl (3.4-5.0); BILIRUBIN,TOTAL 0.1 mg/dL (0.2-1); BLOOD UREA NITROGEN 7.5 mg/dL (7-18); CALCIUM 8.2 mg/dL (8.5-10.1); CREATININE 1.3 mg/dL (0.55-1.3); TOT PROT 6.7 g/dl (6.4-8.2)
[2019-04-09] MEDS ORDERED: LORazepam 1 MG TABLET PO ONE (15:45)
--- NOTE | 2019-04-09 16:22 | PN ---
Progress Note (short form) - Note Progress Note: 44yo F consulted to Dr. Torres to evaluate decubitus ulcer. Pt was previously debrided on 03/24 and was sent to SNF with instructions for Santyl, but pt was only treated with wet to dry dressings. Pt comes back to the hospital with worsening sacral decub. Last Vital Signs Temp Pulse Resp BP Pulse Ox 98.4 F 87 18 124/71 96 04/09/19 13:42 04/09/19 13:42 04/09/19 13:42 04/09/19 13:42 04/09/19 09:00 CBC, BMP 04/09/19 10:51 04/09/19 10:51 PE: Gen: A&O x3 Resp: breathing comfortably Back: shows unstageable sacral decubitus ulcer with eschar over Rt lateral aspect ulcer tracking down to almost bone. Serous drainage noted. Problem List - Problems (1) Wound of sacral region Assessment/Plan: Plan -will plan to take pt to the OR tomorrow with Dr. Palomares for debridement and possible VAC placement -NPO after midnight -coags in the morning Case discussed with Dr. Torres and Dr. Palomares who agree with plan Code(s): S31.000A - UNSP OPN WND LOW BACK AND PELV W/O PENET RETROPERITON, INIT Qualifiers: Encounter type: initial encounter Qualified Code(s): S31.000A - Unspecified open wound of lower back and pelvis without penetration into retroperitoneum, initial encounter
[2019-04-09] MEDS ORDERED: RIVAROXABAN 15 MG TABLET PO SCH (18:00)
[2019-04-09] MEDS: PIPERACILLIN/TAZOB 3.375 GM 3.375 GM in DEXTROSE 5%-WATER - 50 ML IVPB SCH (18:31)
[2019-04-09] MEDS: LORazepam 0.5 MG TABLET PO SCH (21:35)
[2019-04-09] MEDS: HEPARIN NA (PORCINE) 5,000 UNITS/ML 1ML VIAL SQ SCH (21:36)
[2019-04-09] MEDS ORDERED: ATORVASTATIN CA 40 MG TABLET (FP) PO SCH (22:00)
[2019-04-09] MEDS ORDERED: PRAMIPEXOLE DIHYDROCHLORIDE 0.25 MG TABLET PO SCH (22:00)
--- NOTE | 2019-04-09 23:47 | PN ---
Progress Note (short form) - Note Progress Note: ID CONSULT DICTATED
[2019-04-10] MEDS: oxyCODONE HCL 5 MG TABLET PO PRN ×3 (01:12→18:01)
[2019-04-10] MEDS ORDERED: DEXTROSE 5%-WATER - 50 ML IVPB ONE ×3 (02:02→17:45)
[2019-04-10] MEDS ORDERED: PIPERACILLIN/TAZOBACTAM 3.375 GM VIAL IVPB ONE ×3 (02:02→17:45)
[2019-04-10] MEDS: PIPERACILLIN/TAZOB 3.375 GM 3.375 GM in DEXTROSE 5%-WATER - 50 ML IVPB SCH ×3 (02:08→18:01)
[2019-04-10] MEDS ORDERED: VANCOMYCIN 1 GRAM (PRE-DOCKED) 1,000 MG/250 ML BAG IVPB SCH (06:00)
[2019-04-10] MEDS: HEPARIN NA (PORCINE) 5,000 UNITS/ML 1ML VIAL SQ SCH ×2 (06:09→21:38)
[2019-04-10] MEDS: PREGABALIN 75 MG CAPSULE PO SCH ×2 (06:10→21:37)
[2019-04-10] MEDS: INSULIN SLIDING SCALE (NOVOLOG) 1 VIAL SQ SCH ×4 (06:33→21:39)
[2019-04-10] MEDS: INSULIN (LEVEMIR) 100 UNITS/ML UNITS SQ SCH (06:33)
[2019-04-10] MEDS: ALBUTEROL SO4 0.083% IH SOL 2.5 MG/3 ML VIAL.NEB. NEB SCH ×4 (07:42→20:49)
[2019-04-10 07:55] LABS: BASO % 0.5 % (0-2.0); EOS % 3.9 % (0-4.5); HEMATOCRIT 30.3 % (32.4-45.2); LYMPH % 45.9 % (8-40); MCH 27.2 pg (25.7-33.7); MCHC 32.9 g/dl (32.0-36.0); MEAN CELL VOLUME 82.8 fl (80-96); MEAN PLT VOLUME 8.9 fl (7.5-11.1); MONO % 4.8 % (3.8-10.2); NEUT % 44.9 % (42.8-82.8); PLATELET COUNT 284 K/MM3 (134-434); RBC 3.66 M/mm3 (3.60-5.2); RDW 16.2 % (11.6-15.6); WHITE BLOOD COUNT 7.9 K/mm3 (4.0-10.0)
[2019-04-10 08:12] LABS: INR 0.97 (0.83-1.09); PROTHROMBIN TIME (PATIENT) 11.5 SEC (9.7-13.0)
[2019-04-10 08:15] LABS: ACTIVATED PTT 30.1 SECONDS (25.2-36.5)
[2019-04-10 08:27] LABS: ALBUMIN 2.5 g/dl (3.4-5.0); ALK PHOS 149 U/L (45-117); ANION GAP 7 MMOL/L (8-16); BILIRUBIN,TOTAL 0.2 mg/dL (0.2-1); BLOOD UREA NITROGEN 14.2 mg/dL (7-18); CALCIUM 8.3 mg/dL (8.5-10.1); CHLORIDE 110 mmol/L (98-107); CO2 25 mmol/L (21-32); CREATININE 1.5 mg/dL (0.55-1.3); GLUCOSE,RANDOM 207 mg/dL (74-106); POTASSIUM 3.9 mmol/L (3.5-5.1); SGOT/AST < 3 U/L (15-37); SGPT/ALT 9 U/L (13-61); SODIUM 142 mmol/L (136-145); TOT PROT 6.5 g/dl (6.4-8.2)
[2019-04-10] MEDS: COLLAGENASE CLOSTRIDIUM HIST. 30 GRAMS TUBE TP SCH (09:33)
[2019-04-10] MEDS: ASPIRIN COATED 81 MG TABLET.EC PO SCH (09:33)
[2019-04-10] MEDS: LORazepam 0.5 MG TABLET PO SCH ×2 (09:33→21:38)
--- NOTE | 2019-04-10 11:24 | PN ---
Progress Note, Physician Chief Complaint: Infected Sacral Wound History of Present Illness: Previous notes and events reviewed awake and alert NAD patient is NPO today for OR-wound debridement burning pain to wound - Current Medication List Current Medications: Active Medications Albuterol Sulfate (Ventolin 0.083% Nebulizer Soln -) 1 amp NEB RQID [facility] Last Admin: 04/10/19 07:42 Dose: 1 amp Aspirin (Ecotrin -) 81 mg PO DAILY [facility] Last Admin: 04/10/19 09:33 Dose: 81 mg Atorvastatin Calcium (Lipitor -) 40 mg PO HS [facility] Last Admin: 04/09/19 21:36 Dose: 40 mg Collagenase (Santyl -) 1 applic TP DAILY [facility]; Protocol Last Admin: 04/10/19 09:33 Dose: 1 applic Cyclobenzaprine HCl (Flexeril -) 10 mg PO BID PRN PRN Reason: MUSCLE SPASMS Last Admin: 04/09/19 12:31 Dose: 10 mg Heparin Sodium (Porcine) (Heparin -) 5,000 unit SQ TID [facility] Last Admin: 04/10/19 06:09 Dose: Not Given Piperacillin Sod/Tazobactam (Sod 3.375 gm/ Dextrose) 50 mls @ 100 mls/hr IVPB Q8H-IV [facility]; Protocol Last Admin: 04/10/19 09:34 Dose: 100 mls/hr Vancomycin HCl (Vancomycin (Pre-Docked)) 1,000 mg in 250 mls @ 200 mls/hr IVPB DAILY@0600 [facility]; Protocol Last Admin: 04/10/19 06:33 Dose: 200 mls/hr Insulin Aspart (Novolog Vial Sliding Scale -) 1 vial SQ ACHS [facility]; Protocol Last Admin: 04/10/19 06:33 Dose: 4 units Insulin Detemir (Levemir Vial) 30 units SQ AM [facility] Last Admin: 04/10/19 06:33 Dose: 30 units Lorazepam (Ativan -) 1 mg PO BID [facility] Last Admin: 04/10/19 09:33 Dose: 1 mg Meclizine HCl (Antivert -) 25 mg PO TID PRN PRN Reason: VERTIGO Oxycodone HCl (Roxicodone -) 10 mg PO Q6H PRN PRN Reason: PAIN LEVEL 6-10 Last Admin: 04/10/19 07:53 Dose: 10 mg Pramipexole Dihydrochloride (Mirapex -) 0.25 mg PO HS [facility] Last Admin: 04/09/19 21:36 Dose: 0.25 mg Pregabalin (Lyrica -) 150 mg PO TID [facility] Last Admin: 04/10/19 06:10 Dose: Not Given - Objective Vital Signs: Vital Signs Temperature 98.3 F 04/10/19 09:38 Pulse Rate 83 04/10/19 09:38 Respiratory Rate 18 04/10/19 09:38 Blood Pressure 112/66 04/10/19 09:38 O2 Sat by Pulse Oximetry (%) 97 04/10/19 09:00 Constitutional: Yes: No Distress, Calm Eyes: Yes: Conjunctiva Clear HENT: Yes: Atraumatic Cardiovascular: Yes: Regular Rate and Rhythm Respiratory: Yes: Regular, CTA Bilaterally Gastrointestinal: Yes: Normal Bowel Sounds, Soft Genitourinary: Yes: Incontinence Musculoskeletal: Yes: Muscle Weakness Extremities: Yes: Amputation (L AKA) Edema: No Wound/Incision: Yes: Dressing Dry and Intact Neurological: Yes: Alert, Oriented Psychiatric: Yes: Alert, Oriented Labs: CBC, BMP 04/10/19 07:25 04/10/19 07:25 INR, PTT INR 0.97 (0.83-1.09) 04/10/19 07:25 Microbiology 04/09/19 00:45 Wound Gram Stain - Final 04/09/19 00:45 Wound Wound Culture - Preliminary Presumptive Mssa (Pbp2a Neg) Group D Strep Or Entero Coccus 04/08/19 23:28 Blood - Peripheral Venous Blood Culture - Preliminary NO GROWTH OBTAINED AFTER 24 HOURS, INCUBATION TO CONTINUE FOR 4 DAYS. 04/08/19 23:30 Blood - Peripheral Venous Blood Culture - Preliminary NO GROWTH OBTAINED AFTER 24 HOURS, INCUBATION TO CONTINUE FOR 4 DAYS. - ....Imaging Cat Scan: Report Reviewed Problem List - Problems (1) Infected pressure ulcer Assessment/Plan: -Vascular Surgery on board -NPO for OR--wound debridement -ID on board -Pelvic CT scan shows increasing soft tissue in the gluteal region about the distal sacrum and coccyx consistent with worsening decubitis ulcer, no definite evidence of discrete abscess or osteomyelitis -no leukocytosis -afebrile -wound culture prelim positive -Vancomycin, Zosyn Code(s): L89.90 - PRESSURE ULCER OF UNSPECIFIED SITE, UNSPECIFIED STAGE; L08.9 - LOCAL INFECTION OF THE SKIN AND SUBCUTANEOUS TISSUE, UNSP Qualifiers: Pressure injury stage: unstageable Qualified Code(s): L89.95 - Pressure ulcer of unspecified site, unstageable; L08.9 - Local infection of the skin and subcutaneous tissue, unspecified (2) Acute kidney injury superimposed on chronic kidney disease Assessment/Plan: -BUN/Cr 14.2/1.5 -monitor renal function Code(s): N17.9 - ACUTE KIDNEY FAILURE, UNSPECIFIED; N18.9 - CHRONIC KIDNEY DISEASE, UNSPECIFIED (3) CAD (coronary artery disease) Assessment/Plan: -Atorvastatin Code(s): I25.10 - ATHSCL HEART DISEASE OF [place] CORONARY ARTERY W/O ANG PCTRS Qualifiers: Coronary Disease-Associated Artery/Lesion type: coronary artery bypass graft Associated angina: without angina pectoris (4) COPD (chronic obstructive pulmonary disease) Assessment/Plan: -bronchodilators -O2 via NC prn for SOB -keep SpO2 >90% Code(s): J44.9 - CHRONIC OBSTRUCTIVE PULMONARY DISEASE, UNSPECIFIED Qualifiers: Emphysema type: unspecified (5) HLD (hyperlipidemia) Assessment/Plan: -Atorvastatin Code(s): E78.5 - HYPERLIPIDEMIA, UNSPECIFIED Qualifiers: Hyperlipidemia type: pure hypercholesterolemia Qualified Code(s): E78.00 - Pure hypercholesterolemia, unspecified; E78.0 - Pure hypercholesterolemia Assessment/Plan see problem list dvt ppx
[2019-04-10] MEDS ORDERED: LIDOCAINE HCL 1%, 10 MG/ML (20ML VIAL) ONE (12:26)
--- NOTE | 2019-04-10 13:21 | PN ---
Progress Note (short form) - Note Progress Note: Attending Surgeon For debridement of unstageable non healing sacral/buttock wound; r/b/t/a's d/w the patient and informed consent obtained. Tawanda Palomares MD FACS
[2019-04-10] MEDS ORDERED: MIDAZOLAM HCL 2 MG/2 ML SINGLE DOSE VIAL ONE (13:31)
[2019-04-10] MEDS ORDERED: ROCURONIUM BROMIDE 50 MG/5 ML SYRINGE ONE (13:31)
[2019-04-10] MEDS ORDERED: SUCCINYLCHOLINE CHLORIDE 200 MG/10 ML SYRINGE ONE (13:31)
--- NOTE | 2019-04-10 15:24 | OP ---
Operative Note - Note: Operative Date: 04/10/19 Pre-Operative Diagnosis: unstageable sacral pressure ulcer Operation: excisional debridement of non viable skin/subcutaneous tissue/muscle and fascia. Findings: unstageable sacral pressure ulcer. Post-Operative Diagnosis: Same as Pre-op Surgeon: Tawanda Palomares Anesthesiologist/BLANKET MAKER: Jennifer Bedoya MD Anesthesia: General Specimens Removed: non viable soft tissue Estimated Blood Loss (mls): 20 Drains & Tubes with Location: wound left open and packed w/Kerlix .
[2019-04-10] MEDS ORDERED: MECLIZINE HCL 25 MG TABLET (FP) PO PRN (15:33)
[2019-04-10] MEDS ORDERED: oxyCODONE HCL 5 MG TABLET PO PRN ×2 (15:33→16:01)
[2019-04-10] MEDS ORDERED: CYCLOBENZAPRINE HCL 10 MG TABLET (FP) PO PRN (15:33)
[2019-04-10] MEDS ORDERED: ONDANSETRON 4 MG/2 ML VIAL IVPUSH PRN (16:01)
[2019-04-10] MEDS ORDERED: LACTATED RINGERS SOLUTION 1,000 ML IV SCH (16:15)
--- NOTE | 2019-04-10 17:45 | OP ---
DATE OF OPERATION: 04/10/2019 PREOPERATIVE DIAGNOSIS: Unstageable sacral decubitus ulcer. POSTOPERATIVE DIAGNOSIS: Unstageable sacral decubitus ulcer. PROCEDURE: Excisional debridement of skin, subcutaneous tissue, muscle and fascia of unstageable sacral decubitus ulcer. SURGEON: Tawanda Palomares M.D. ANESTHESIA: General. OPERATIVE FINDINGS: There was a partially healing previously healing ulcer over the sacrum and there was large area of nonviable unstageable sacral ulcer with nonviable skin, subcutaneous fat, muscle and fascia. The rest of the findings were unremarkable. PROCEDURE: The patient was placed on the operating table in supine position. After the induction of general anesthesia was turned to the left lateral decubitus position. The area over the sacrum was prepped with Betadine, draped in sterile fashion, and timeout was taken, and then sharp excisional debridement was carried out of all nonviable tissue. This was sent for pathological examination. Hemostasis was secured with electrocautery, and the wound copiously irrigated with sterile saline. Again, hemostasis is verified, and then once hemostasis was verified, the wound was dressed with saline, moistened Kerlix, followed by 4x4 gauze, ABD pad, and Medipore dressing. The patient was then aroused from general anesthesia and transferred to the post anesthesia care unit in stable condition awake and alert. Estimated bloodloss 20 mL. Replacements, crystalloid. Drains, none. Specimen, nonviable soft tissue sent to pathology. I, Tawanda Steinberg, was physically present in the operating room from the time the patient was placed on the operating room table until she was transferred to the postanesthesia care unit in my accompaniment. MD ZAID [id number] MTDD
[2019-04-10] MEDS ORDERED: INSULIN (NOVOLOG) ASPART 100 UNITS/ML 10ML VIAL ONE (21:34)
[2019-04-10] MEDS: ATORVASTATIN CA 40 MG TABLET (FP) PO SCH (21:37)
[2019-04-10] MEDS: MICONAZOLE NITRATE 2% VAGINAL CREAM 45 GM TUBE VG SCH (21:38)
[2019-04-10] MEDS: PRAMIPEXOLE DIHYDROCHLORIDE 0.25 MG TABLET PO SCH (21:38)
[2019-04-11] MEDS ORDERED: PIPERACILLIN/TAZOBACTAM 3.375 GM VIAL IVPB ONE ×3 (01:45→16:58)
[2019-04-11] MEDS ORDERED: DEXTROSE 5%-WATER - 50 ML IVPB ONE ×2 (01:45→16:58)
[2019-04-11] MEDS: PIPERACILLIN/TAZOB 3.375 GM 3.375 GM in DEXTROSE 5%-WATER - 50 ML IVPB SCH ×3 (01:52→17:40)
[2019-04-11] MEDS: VANCOMYCIN 1 GRAM (PRE-DOCKED) 1,000 MG/250 ML BAG IVPB SCH (05:35)
[2019-04-11] MEDS ORDERED: INSULIN (NOVOLOG) ASPART 100 UNITS/ML 10ML VIAL ONE ×3 (06:20→21:06)
[2019-04-11] MEDS: INSULIN SLIDING SCALE (NOVOLOG) 1 VIAL SQ SCH ×4 (06:23→21:16)
[2019-04-11] MEDS: INSULIN (LEVEMIR) 100 UNITS/ML UNITS SQ SCH (06:26)
[2019-04-11] MEDS: HEPARIN NA (PORCINE) 5,000 UNITS/ML 1ML VIAL SQ SCH ×3 (06:27→21:13)
[2019-04-11] MEDS: PREGABALIN 75 MG CAPSULE PO SCH ×3 (06:27→21:14)
--- NOTE | 2019-04-11 07:27 | PN ---
Progress Note (short form) - Note Progress Note: POD #1 s/p excisional debridement of non viable skin/subcutaneous tissue/muscle and fascia. Alert. Laying in bed LRL as to not place pressure over sacrum. States she is turning frequently as instructed. Denies n/v/f/c. Last Vital Signs Temp Pulse Resp BP Pulse Ox 99.5 F 87 20 153/79 95 04/11/19 05:00 04/11/19 05:00 04/10/19 23:00 04/11/19 05:00 04/10/19 21:00 Gen: nad Skin: sacral/buttock wound packing removed. irrigated. repacked with moist kerlix. Problem List - Problems (1) Infected pressure ulcer Assessment/Plan: POD #1 s/p excisional debridement of non viable skin/subcutaneous tissue/muscle and fascia. -Reposition every two hours while in bed -Patient has tendency to lean to the left(imbalance due to Lt AKA), this is a problem as it's putting a lot of pressure on her right heel (medially) contributing to the developing DTI -Air mattress recommended -Use drawsheets and Trendelenburg when repositioning to reduce friction and shear -Manage incontinence via timely cleansing, use of appropriate incontinence disposables and use of barrier ointment to intact skin -Ensure adequate hydration/nutrition -Ensure off-loading to all bony areas (heels, ankles, hips and tailbone) with Allevyn/Optifoam -Clean open wounds with normal saline and re-pack with moist gauzr (ordered) -Cont medical management -f/u CBC -NO further surgical intervention needed -Daily wound care to be performed by RN caring for patient Above plan discussed with Dr. Hill who is covering for Dr. Palomares and agrees Code(s): L89.90 - PRESSURE ULCER OF UNSPECIFIED SITE, UNSPECIFIED STAGE; L08.9 - LOCAL INFECTION OF THE SKIN AND SUBCUTANEOUS TISSUE, UNSP Qualifiers: Pressure injury stage: unstageable Qualified Code(s): L89.95 - Pressure ulcer of unspecified site, unstageable; L08.9 - Local infection of the skin and subcutaneous tissue, unspecified
[2019-04-11 07:32] LABS: HEMATOCRIT 29.1 % (32.4-45.2); HEMOGLOBIN 9.6 GM/dL (10.7-15.3); MCH 27.2 pg (25.7-33.7); MCHC 32.9 g/dl (32.0-36.0); MEAN CELL VOLUME 82.6 fl (80-96); MEAN PLT VOLUME 9.3 fl (7.5-11.1); PLATELET COUNT 247 K/MM3 (134-434); RBC 3.52 M/mm3 (3.60-5.2); RDW 16.3 % (11.6-15.6); WHITE BLOOD COUNT 8.2 K/mm3 (4.0-10.0)
[2019-04-11] MEDS: ALBUTEROL SO4 0.083% IH SOL 2.5 MG/3 ML VIAL.NEB. NEB SCH ×4 (07:43→20:49)
[2019-04-11 07:44] LABS: ALBUMIN 2.4 g/dl (3.4-5.0); BILIRUBIN,TOTAL 0.3 mg/dL (0.2-1); BLOOD UREA NITROGEN 15.9 mg/dL (7-18); CALCIUM 8.3 mg/dL (8.5-10.1); CREATININE 1.4 mg/dL (0.55-1.3); POTASSIUM 4.1 mmol/L (3.5-5.1); TOT PROT 6.2 g/dl (6.4-8.2)
[2019-04-11] MEDS ORDERED: DEXTROSE 5%-WATER - 100 ML IVPB ONE (10:05)
[2019-04-11] MEDS: ASPIRIN COATED 81 MG TABLET.EC PO SCH (10:20)
[2019-04-11] MEDS: LORazepam 0.5 MG TABLET PO SCH ×2 (10:20→21:12)
[2019-04-11] MEDS: oxyCODONE HCL 5 MG TABLET PO PRN ×2 (12:25→21:25)
[2019-04-11] MEDS: COLLAGENASE CLOSTRIDIUM HIST. 30 GRAMS TUBE TP SCH (12:27)
--- NOTE | 2019-04-11 14:21 | PN ---
Progress Note, Physician Chief Complaint: patient seen and examined awake alert oriented had sacral dressing changed in morning - Current Medication List Current Medications: Active Medications Albuterol Sulfate (Ventolin 0.083% Nebulizer Soln -) 1 amp NEB RQID [facility] Last Admin: 04/11/19 12:11 Dose: Not Given Aspirin (Ecotrin -) 81 mg PO DAILY [facility] Last Admin: 04/11/19 10:20 Dose: 81 mg Atorvastatin Calcium (Lipitor -) [address] [facility] Last Admin: 04/10/19 21:37 Dose: 40 mg Collagenase (Santyl -) 1 applic TP DAILY [facility]; Protocol Last Admin: 04/11/19 12:27 Dose: 1 applic Cyclobenzaprine HCl (Flexeril -) 10 mg PO BID PRN PRN Reason: MUSCLE SPASMS Heparin Sodium (Porcine) (Heparin -) 5,000 unit SQ TID [facility] Last Admin: 04/11/19 06:27 Dose: 5,000 unit Vancomycin HCl (Vancomycin (Pre-Docked)) 1,000 mg in 250 mls @ 200 mls/hr IVPB DAILY@0600 [facility]; Protocol Last Admin: 04/11/19 05:35 Dose: 200 mls/hr Piperacillin Sod/Tazobactam (Sod 3.375 gm/ Dextrose) 50 mls @ 100 mls/hr IVPB Q8H-IV [facility]; Protocol Last Admin: 04/11/19 10:19 Dose: 100 mls/hr Insulin Aspart (Novolog Vial Sliding Scale -) 1 vial SQ ACHS [facility]; Protocol Last Admin: 04/11/19 12:26 Dose: Not Given Insulin Detemir (Levemir Vial) 30 units SQ AM [facility] Last Admin: 04/11/19 06:26 Dose: 30 units Lorazepam (Ativan -) 1 mg PO BID [facility] Last Admin: 04/11/19 10:20 Dose: 1 mg Meclizine HCl (Antivert -) 25 mg PO TID PRN PRN Reason: VERTIGO Miconazole Nitrate (Monistat-7 Vaginal Cream -) [address] [facility] Stop: 04/16/19 22:01 Last Admin: 04/10/19 21:38 Dose: 1 applic Oxycodone HCl (Roxicodone -) 5 mg PO Q4H PRN PRN Reason: PAIN LEVEL 1-5 Oxycodone HCl (Roxicodone -) 10 mg PO Q4H PRN PRN Reason: PAIN LEVEL 6-10 Last Admin: 04/11/19 12:25 Dose: 10 mg Pramipexole Dihydrochloride (Mirapex -) 0.25 mg PO HS [facility] Last Admin: 04/10/19 21:38 Dose: 0.25 mg Pregabalin (Lyrica -) 150 mg PO TID [facility] Last Admin: 04/11/19 06:27 Dose: 150 mg - Objective Vital Signs: Vital Signs Temperature 99.5 F 04/11/19 05:00 Pulse Rate 88 04/11/19 12:00 Respiratory Rate 18 04/11/19 12:00 Blood Pressure 130/80 04/11/19 12:00 O2 Sat by Pulse Oximetry (%) 95 04/11/19 09:00 Constitutional: Yes: Calm Cardiovascular: Yes: Regular Rate and Rhythm, S1, S2 Respiratory: Yes: CTA Bilaterally Gastrointestinal: Yes: Normal Bowel Sounds, Soft Extremities: Yes: Other (bka) Wound/Incision: Yes: Other (sacral wound and heel wound) Neurological: Yes: Alert Labs: CBC, BMP 04/11/19 06:50 04/11/19 06:50 INR, PTT INR 0.97 (0.83-1.09) 04/10/19 07:25 Problem List - Problems (1) Infected pressure ulcer Assessment/Plan: s/o excisional debridement of the non viable tissue dressing changed by surgery frequent turn and position ID on board iv vancomcyin and zosyn analgeesic and dvt ppx Code(s): L89.90 - PRESSURE ULCER OF UNSPECIFIED SITE, UNSPECIFIED STAGE; L08.9 - LOCAL INFECTION OF THE SKIN AND SUBCUTANEOUS TISSUE, UNSP Qualifiers: Pressure injury stage: unstageable Qualified Code(s): L89.95 - Pressure ulcer of unspecified site, unstageable; L08.9 - Local infection of the skin and subcutaneous tissue, unspecified (2) Diabetes mellitus Assessment/Plan: levemir bgm monitoring Code(s): E11.9 - TYPE 2 DIABETES MELLITUS WITHOUT COMPLICATIONS Qualifiers: Diabetes mellitus type: type 2
--- NOTE | 2019-04-11 14:30 | CONS ---
INFECTIOUS DISEASE CONSULTATION DATE OF CONSULTATION: DATE OF DICTATION: 04/11/2019 HISTORY: The patient is a 44-year-old female with a history of sacral decubitus ulcer evaluated for worsening decubitus. Patient was recently hospitalized from March 08 to March 14 for infected sacral decubitus ulcer. She was treated with a course of Unasyn and discharged to complete a course of oral Augmentin. Since discharge, patient reports increasing pain and drainage from the sacral area. She presented to the emergency room where she was noted to have a large sacral decubitus ulcer. A CAT scan of the pelvis showed no evidence of soft tissue collection or osteomyelitis. On her last admission, she was found on imaging to have a soft tissue collection, which was drained. She denies any associated fever or chills. PAST MEDICAL HISTORY: Positive for diabetes mellitus, hypertension, hyperlipidemia, stroke, COPD, chronic kidney disease, coronary artery disease. PAST SURGICAL HISTORY: Status post left [id number] amputation for peripheral vascular disease. ALLERGIES: No known allergies. MEDICATIONS: Include albuterol, aspirin, Lipitor, Flexeril, insulin, Meclizine, oxycodone. SOCIAL HISTORY: She resides in the community. She is a nonsmoker, nondrinker. SYSTEMS REVIEW: Neurologic: No loss of consciousness, seizure activity, focal weakness. Cardiac: Negative chest pain or palpitations. Respiratory: Negative cough or sputum production. Gastrointestinal: Negative vomiting or diarrhea. Genitourinary: Negative for urinary tract infection. LABORATORY DATA: White count on admission 15.1, hematocrit 30.9, platelet count 322, creatinine 1.3. PHYSICAL EXAMINATION: General: She is awake and responsive in no acute distress. Vital Signs: Temperature 97.7, blood pressure 112/77, pulse 108 regular, respirations 18 per minute. HEENT: Sclerae anicteric. Heart: Sounds S1, S2. Lungs: Clear. Abdomen: Soft, nontender. Skin: There is a large sacral decubitus ulcer with some necrotic tissue. There is no purulent drainage or foul odor noted.Extremities: Status post left [id number] amputation. IMPRESSION: 1. Infected sacral decubitus ulcer. 2. Rule out sepsis secondary to decubitus ulcer. 3. Chronic kidney disease. 4. Diabetes mellitus. PLAN: Await culture results. Surgical evaluation for debridement. Empiric antibiotic coverage with vancomycin and Zosyn pending cultures. We will follow. Thank you for the kind referral. MARCELA NICHOLS M.D. UZIEL/[id number]
[2019-04-11] MEDS: ATORVASTATIN CA 40 MG TABLET (FP) PO SCH (21:13)
[2019-04-11] MEDS: MICONAZOLE NITRATE 2% VAGINAL CREAM 45 GM TUBE VG SCH (21:15)
[2019-04-11] MEDS: PRAMIPEXOLE DIHYDROCHLORIDE 0.25 MG TABLET PO SCH (21:15)
[2019-04-12] MEDS ORDERED: PIPERACILLIN/TAZOBACTAM 3.375 GM VIAL IVPB ONE ×2 (02:10→10:06)
[2019-04-12] MEDS ORDERED: DEXTROSE 5%-WATER - 50 ML IVPB ONE ×2 (02:10→10:06)
[2019-04-12] MEDS: PIPERACILLIN/TAZOB 3.375 GM 3.375 GM in DEXTROSE 5%-WATER - 50 ML IVPB SCH ×2 (02:13→10:15)
[2019-04-12] MEDS: VANCOMYCIN 1 GRAM (PRE-DOCKED) 1,000 MG/250 ML BAG IVPB SCH (05:39)
[2019-04-12] MEDS ORDERED: INSULIN (NOVOLOG) ASPART 100 UNITS/ML 10ML VIAL ONE ×3 (06:07→21:28)
[2019-04-12] MEDS: HEPARIN NA (PORCINE) 5,000 UNITS/ML 1ML VIAL SQ SCH ×3 (06:13→21:46)
[2019-04-12] MEDS: INSULIN (LEVEMIR) 100 UNITS/ML UNITS SQ SCH (06:13)
[2019-04-12] MEDS: INSULIN SLIDING SCALE (NOVOLOG) 1 VIAL SQ SCH ×4 (06:13→21:47)
[2019-04-12] MEDS: PREGABALIN 75 MG CAPSULE PO SCH ×3 (06:14→21:46)
[2019-04-12] MEDS: ALBUTEROL SO4 0.083% IH SOL 2.5 MG/3 ML VIAL.NEB. NEB SCH ×4 (07:31→21:40)
[2019-04-12 08:13] LABS: BASO % 0.6 % (0-2.0); EOS % 10.3 % (0-4.5); HEMATOCRIT 28.9 % (32.4-45.2); HEMOGLOBIN 9.6 GM/dL (10.7-15.3); LYMPH % 33.3 % (8-40); MCH 27.7 pg (25.7-33.7); MCHC 33.2 g/dl (32.0-36.0); MEAN CELL VOLUME 83.6 fl (80-96); MEAN PLT VOLUME 9.5 fl (7.5-11.1); MONO % 4.9 % (3.8-10.2); NEUT % 50.9 % (42.8-82.8); PLATELET COUNT 260 K/MM3 (134-434); RBC 3.46 M/mm3 (3.60-5.2); RDW 16.3 % (11.6-15.6)
[2019-04-12 08:22] LABS: ALBUMIN 2.3 g/dl (3.4-5.0); BILIRUBIN,TOTAL 0.2 mg/dL (0.2-1); BLOOD UREA NITROGEN 17.5 mg/dL (7-18); CALCIUM 8.3 mg/dL (8.5-10.1); CREATININE 1.4 mg/dL (0.55-1.3); POTASSIUM 3.8 mmol/L (3.5-5.1); TOT PROT 6.2 g/dl (6.4-8.2)
[2019-04-12] MEDS: LORazepam 0.5 MG TABLET PO SCH ×2 (10:16→21:46)
[2019-04-12] MEDS: ASPIRIN COATED 81 MG TABLET.EC PO SCH (10:16)
[2019-04-12] MEDS: COLLAGENASE CLOSTRIDIUM HIST. 30 GRAMS TUBE TP SCH (10:45)
[2019-04-12] MEDS ORDERED: PT OWN MED DRAWER 7, Y5N ONE ×3 (14:35→20:54)
[2019-04-12] MEDS ORDERED: ONDANSETRON *ODT* 4 MG TABLET SL PRN (14:59)
--- NOTE | 2019-04-12 15:04 | PN ---
Progress Note, Physician Chief Complaint: Infected Sacral Wound History of Present Illness: Previous notes and events reviewed awake and alert NAD POD #2 s/p excisional debridement of non-viable skin/subcutaneous tissue/muscle and fascia complain of nausea today and one episode of loose stool - Current Medication List Current Medications: Active Medications Albuterol Sulfate (Ventolin 0.083% Nebulizer Soln -) 1 amp NEB RQID [facility] Last Admin: 04/12/19 11:15 Dose: Not Given Aspirin (Ecotrin -) 81 mg PO DAILY [facility] Last Admin: 04/12/19 10:16 Dose: 81 mg Atorvastatin Calcium (Lipitor -) 40 mg PO HS [facility] Last Admin: 04/11/19 21:13 Dose: 40 mg Collagenase (Santyl -) 1 applic TP DAILY [facility]; Protocol Last Admin: 04/11/19 12:27 Dose: 1 applic Cyclobenzaprine HCl (Flexeril -) 10 mg PO BID PRN PRN Reason: MUSCLE SPASMS Heparin Sodium (Porcine) (Heparin -) 5,000 unit SQ TID [facility] Last Admin: 04/12/19 13:52 Dose: 5,000 unit Vancomycin HCl (Vancomycin (Pre-Docked)) 1,000 mg in 250 mls @ 200 mls/hr IVPB DAILY@0600 [facility]; Protocol Last Admin: 04/12/19 05:39 Dose: 200 mls/hr Piperacillin Sod/Tazobactam (Sod 3.375 gm/ Dextrose) 50 mls @ 100 mls/hr IVPB Q8H-IV [facility]; Protocol Last Admin: 04/12/19 10:15 Dose: 100 mls/hr Insulin Aspart (Novolog Vial Sliding Scale -) 1 vial SQ ACHS [facility]; Protocol Last Admin: 04/12/19 11:44 Dose: 4 units Insulin Detemir (Levemir Vial) 30 units SQ AM [facility] Last Admin: 04/12/19 06:13 Dose: 30 units Lorazepam (Ativan -) 1 mg PO BID [facility] Last Admin: 04/12/19 10:16 Dose: 1 mg Meclizine HCl (Antivert -) 25 mg PO TID PRN PRN Reason: VERTIGO Miconazole Nitrate (Monistat-7 Vaginal Cream -) 1 applic VG HS [facility] Stop: 04/16/19 22:01 Last Admin: 04/11/19 21:15 Dose: 1 applic Ondansetron HCl (Zofran Odt -) 4 mg SL Q6H PRN PRN Reason: NAUSEA AND/OR VOMITING Oxycodone HCl (Roxicodone -) 5 mg PO Q4H PRN PRN Reason: PAIN LEVEL 1-5 Last Admin: 04/12/19 14:30 Dose: 5 mg Oxycodone HCl (Roxicodone -) 10 mg PO Q4H PRN PRN Reason: PAIN LEVEL 6-10 Last Admin: 04/11/19 21:25 Dose: 10 mg Pramipexole Dihydrochloride (Mirapex -) 0.25 mg PO HS [facility] Last Admin: 04/11/19 21:15 Dose: 0.25 mg Pregabalin (Lyrica -) 150 mg PO TID [facility] Last Admin: 04/12/19 13:52 Dose: 150 mg - Objective Vital Signs: Vital Signs Temperature 98.7 F 04/12/19 06:00 Pulse Rate 81 04/12/19 06:00 Respiratory Rate 20 04/12/19 06:00 Blood Pressure 137/79 04/12/19 06:00 O2 Sat by Pulse Oximetry (%) 97 04/11/19 21:00 Constitutional: Yes: No Distress, Calm Eyes: Yes: Conjunctiva Clear HENT: Yes: Atraumatic Cardiovascular: Yes: Regular Rate and Rhythm Respiratory: Yes: Regular, CTA Bilaterally Gastrointestinal: Yes: Normal Bowel Sounds, Soft Genitourinary: Yes: Incontinence Musculoskeletal: Yes: Muscle Weakness Extremities: Yes: Amputation (L AKA) Edema: No Wound/Incision: Yes: Dressing Dry and Intact Neurological: Yes: Alert, Oriented Psychiatric: Yes: Alert, Oriented Labs: CBC, BMP 04/12/19 07:15 04/12/19 07:15 INR, PTT INR 0.97 (0.83-1.09) 04/10/19 07:25 Microbiology 04/09/19 00:45 Wound Gram Stain - Final 04/09/19 00:45 Wound Wound Culture - Final Staphylococcus Aureus Enterococcus Faecalis Yeast Like Organism 04/08/19 23:28 Blood - Peripheral Venous Blood Culture - Preliminary NO GROWTH OBTAINED AFTER 72 HOURS, INCUBATION TO CONTINUE FOR 2 DAYS. 04/08/19 23:30 Blood - Peripheral Venous Blood Culture - Preliminary NO GROWTH OBTAINED AFTER 72 HOURS, INCUBATION TO CONTINUE FOR 2 DAYS. Problem List - Problems (1) Infected pressure ulcer Assessment/Plan: -Vascular Surgery on board -NPO for OR--wound debridement -ID on board -Pelvic CT scan shows increasing soft tissue in the gluteal region about the distal sacrum and coccyx consistent with worsening decubitis ulcer, no definite evidence of discrete abscess or osteomyelitis -no leukocytosis -afebrile -wound culture prelim positive -Vancomycin, Zosyn Code(s): L89.90 - PRESSURE ULCER OF UNSPECIFIED SITE, UNSPECIFIED STAGE; L08.9 - LOCAL INFECTION OF THE SKIN AND SUBCUTANEOUS TISSUE, UNSP Qualifiers: Pressure injury stage: unstageable Qualified Code(s): L89.95 - Pressure ulcer of unspecified site, unstageable; L08.9 - Local infection of the skin and subcutaneous tissue, unspecified (2) Acute kidney injury superimposed on chronic kidney disease Assessment/Plan: -BUN/Cr 17.5/1.4 -monitor renal function Code(s): N17.9 - ACUTE KIDNEY FAILURE, UNSPECIFIED; N18.9 - CHRONIC KIDNEY DISEASE, UNSPECIFIED (3) CAD (coronary artery disease) Assessment/Plan: -Atorvastatin Code(s): I25.10 - ATHSCL HEART DISEASE OF [place] CORONARY ARTERY W/O ANG PCTRS Qualifiers: Coronary Disease-Associated Artery/Lesion type: coronary artery bypass graft Associated angina: without angina pectoris (4) COPD (chronic obstructive pulmonary disease) Assessment/Plan: -bronchodilators -O2 via NC prn for SOB -keep SpO2 >90% Code(s): J44.9 - CHRONIC OBSTRUCTIVE PULMONARY DISEASE, UNSPECIFIED Qualifiers: Emphysema type: unspecified (5) HLD (hyperlipidemia) Assessment/Plan: -Atorvastatin Code(s): E78.5 - HYPERLIPIDEMIA, UNSPECIFIED Qualifiers: Hyperlipidemia type: pure hypercholesterolemia Qualified Code(s): E78.00 - Pure hypercholesterolemia, unspecified; E78.0 - Pure hypercholesterolemia Assessment/Plan see problem list dvt ppx
[2019-04-12] MEDS: AMPICILLIN NA/SULBACTAM NA 1.5 GM in SODIUM CHLORIDE 100 ML IVPB SCH ×2 (15:55→20:55)
[2019-04-12] MEDS: ATORVASTATIN CA 40 MG TABLET (FP) PO SCH (21:46)
[2019-04-12] MEDS: PRAMIPEXOLE DIHYDROCHLORIDE 0.25 MG TABLET PO SCH (21:47)
[2019-04-12] MEDS: MICONAZOLE NITRATE 2% VAGINAL CREAM 45 GM TUBE VG SCH (21:47)
[2019-04-12] MEDS: oxyCODONE HCL 5 MG TABLET PO PRN (21:51)
[2019-04-13] MEDS: AMPICILLIN NA/SULBACTAM NA 1.5 GM in SODIUM CHLORIDE 100 ML IVPB SCH ×4 (02:47→21:31)
[2019-04-13] MEDS: PREGABALIN 75 MG CAPSULE PO SCH ×3 (06:24→21:32)
[2019-04-13] MEDS: oxyCODONE HCL 5 MG TABLET PO PRN ×4 (06:24→19:33)
[2019-04-13] MEDS: INSULIN (LEVEMIR) 100 UNITS/ML UNITS SQ SCH (06:24)
[2019-04-13] MEDS: HEPARIN NA (PORCINE) 5,000 UNITS/ML 1ML VIAL SQ SCH ×3 (06:24→21:31)
[2019-04-13] MEDS: INSULIN SLIDING SCALE (NOVOLOG) 1 VIAL SQ SCH ×4 (06:24→21:34)
[2019-04-13] MEDS: ALBUTEROL SO4 0.083% IH SOL 2.5 MG/3 ML VIAL.NEB. NEB SCH ×4 (07:30→19:50)
[2019-04-13] MEDS ORDERED: PT OWN MED DRAWER 7, Y5N ONE ×2 (08:47→15:07)
[2019-04-13] MEDS: ASPIRIN COATED 81 MG TABLET.EC PO SCH (09:04)
[2019-04-13] MEDS: LACTOBACILLUS ACIDOPHILUS 1 TABLET PO SCH (09:04)
[2019-04-13] MEDS: LORazepam 0.5 MG TABLET PO SCH ×2 (09:04→21:31)
[2019-04-13] MEDS: COLLAGENASE CLOSTRIDIUM HIST. 30 GRAMS TUBE TP SCH (09:05)
[2019-04-13 10:33] LABS: HEMATOCRIT 28.5 % (32.4-45.2); HEMOGLOBIN 9.2 GM/dL (10.7-15.3); MCH 27.1 pg (25.7-33.7); MCHC 32.4 g/dl (32.0-36.0); MEAN CELL VOLUME 83.6 fl (80-96); MEAN PLT VOLUME 9.7 fl (7.5-11.1); PLATELET COUNT 244 K/MM3 (134-434); RBC 3.41 M/mm3 (3.60-5.2); RDW 16.4 % (11.6-15.6); WHITE BLOOD COUNT 8.4 K/mm3 (4.0-10.0)
[2019-04-13 11:01] LABS: ALBUMIN 2.4 g/dl (3.4-5.0); BILIRUBIN,TOTAL 0.2 mg/dL (0.2-1); BLOOD UREA NITROGEN 21.4 mg/dL (7-18); CALCIUM 8.1 mg/dL (8.5-10.1); CREATININE 1.3 mg/dL (0.55-1.3); POTASSIUM 4.1 mmol/L (3.5-5.1); TOT PROT 6.2 g/dl (6.4-8.2)
--- NOTE | 2019-04-13 12:31 | PN ---
Progress Note, Physician Chief Complaint: Infected Sacral Wound History of Present Illness: Previous notes and events reviewed awake and alert NAD POD #3 s/p excisional debridement of non-viable skin/subcutaneous tissue/muscle and fascia states nausea has resolved sts having one episode of loose BM this morning - Current Medication List Current Medications: Active Medications Albuterol Sulfate (Ventolin 0.083% Nebulizer Soln -) 1 amp NEB RQID [facility] Last Admin: 04/13/19 11:35 Dose: 1 amp Aspirin (Ecotrin -) 81 mg PO DAILY [facility] Last Admin: 04/13/19 09:04 Dose: 81 mg Atorvastatin Calcium (Lipitor -) 40 mg PO HS [facility] Last Admin: 04/12/19 21:46 Dose: 40 mg Collagenase (Santyl -) 1 applic TP DAILY [facility]; Protocol Last Admin: 04/13/19 09:05 Dose: 1 applic Cyclobenzaprine HCl (Flexeril -) 10 mg PO BID PRN PRN Reason: MUSCLE SPASMS Heparin Sodium (Porcine) (Heparin -) 5,000 unit SQ TID [facility] Last Admin: 04/13/19 06:24 Dose: 5,000 unit Ampicillin Sodium/Sulbactam (Sodium 1.5 gm/ Sodium Chloride) 100 mls @ 200 mls/ hr IVPB Q6H-IV [facility] Last Admin: 04/13/19 08:51 Dose: 200 mls/hr Insulin Aspart (Novolog Vial Sliding Scale -) 1 vial SQ ACHS [facility]; Protocol Last Admin: 04/13/19 11:42 Dose: 2 units Insulin Detemir (Levemir Vial) 30 units SQ AM [facility] Last Admin: 04/13/19 06:24 Dose: 30 units Lactobacillus Acidophilus (Bacid -) 1 tab PO DAILY [facility] Last Admin: 04/13/19 09:04 Dose: 1 tab Lorazepam (Ativan -) 1 mg PO BID [facility] Last Admin: 04/13/19 09:04 Dose: 1 mg Meclizine HCl (Antivert -) 25 mg PO TID PRN PRN Reason: VERTIGO Miconazole Nitrate (Monistat-7 Vaginal Cream -) 1 applic VG HS [facility] Stop: 04/16/19 22:01 Last Admin: 04/12/19 21:47 Dose: 1 applic Ondansetron HCl (Zofran Odt -) 4 mg SL Q6H PRN PRN Reason: NAUSEA AND/OR VOMITING Last Admin: 04/12/19 17:00 Dose: 4 mg Oxycodone HCl (Roxicodone -) 5 mg PO Q4H PRN PRN Reason: PAIN LEVEL 1-5 Last Admin: 04/12/19 14:30 Dose: 5 mg Oxycodone HCl (Roxicodone -) 10 mg PO Q4H PRN PRN Reason: PAIN LEVEL 6-10 Last Admin: 04/13/19 10:22 Dose: 10 mg Pramipexole Dihydrochloride (Mirapex -) 0.25 mg PO HS [facility] Last Admin: 04/12/19 21:47 Dose: 0.25 mg Pregabalin (Lyrica -) 150 mg PO TID [facility] Last Admin: 04/13/19 06:24 Dose: 150 mg - Objective Vital Signs: Vital Signs Temperature 98.1 F 04/13/19 08:59 Pulse Rate 87 04/13/19 08:59 Respiratory Rate 19 04/13/19 09:00 Blood Pressure 101/63 04/13/19 08:59 O2 Sat by Pulse Oximetry (%) 98 04/13/19 09:00 Constitutional: Yes: No Distress, Calm Eyes: Yes: Conjunctiva Clear HENT: Yes: Atraumatic Cardiovascular: Yes: Regular Rate and Rhythm Respiratory: Yes: Regular, CTA Bilaterally Gastrointestinal: Yes: Normal Bowel Sounds, Soft Genitourinary: Yes: Incontinence Musculoskeletal: Yes: Muscle Weakness Extremities: Yes: Amputation (L AKA) Edema: No Wound/Incision: Yes: Dressing Dry and Intact Neurological: Yes: Alert, Oriented Psychiatric: Yes: Alert, Oriented Labs: CBC, BMP 04/13/19 10:05 04/13/19 10:05 INR, PTT INR 0.97 (0.83-1.09) 04/10/19 07:25 Microbiology 04/08/19 23:28 Blood - Peripheral Venous Blood Culture - Preliminary NO GROWTH OBTAINED AFTER 96 HOURS, INCUBATION TO CONTINUE FOR 1 DAYS. 04/08/19 23:30 Blood - Peripheral Venous Blood Culture - Preliminary NO GROWTH OBTAINED AFTER 96 HOURS, INCUBATION TO CONTINUE FOR 1 DAYS. 04/09/19 00:45 Wound Gram Stain - Final 04/09/19 00:45 Wound Wound Culture - Final Staphylococcus Aureus Enterococcus Faecalis Yeast Like Organism Problem List - Problems (1) Infected pressure ulcer Assessment/Plan: -Vascular Surgery on board -ID on board -Pelvic CT scan shows increasing soft tissue in the gluteal region about the distal sacrum and coccyx consistent with worsening decubitis ulcer, no definite evidence of discrete abscess or osteomyelitis -no leukocytosis -afebrile -wound culture positive -Unasyn Code(s): L89.90 - PRESSURE ULCER OF UNSPECIFIED SITE, UNSPECIFIED STAGE; L08.9 - LOCAL INFECTION OF THE SKIN AND SUBCUTANEOUS TISSUE, UNSP Qualifiers: Pressure injury stage: unstageable Qualified Code(s): L89.95 - Pressure ulcer of unspecified site, unstageable; L08.9 - Local infection of the skin and subcutaneous tissue, unspecified (2) Acute kidney injury superimposed on chronic kidney disease Assessment/Plan: -BUN/Cr 21.4/1.3 -monitor renal function Code(s): N17.9 - ACUTE KIDNEY FAILURE, UNSPECIFIED; N18.9 - CHRONIC KIDNEY DISEASE, UNSPECIFIED (3) CAD (coronary artery disease) Assessment/Plan: -Atorvastatin Code(s): I25.10 - ATHSCL HEART DISEASE OF [place] CORONARY ARTERY W/O ANG PCTRS Qualifiers: Coronary Disease-Associated Artery/Lesion type: coronary artery bypass graft Associated angina: without angina pectoris (4) COPD (chronic obstructive pulmonary disease) Assessment/Plan: -bronchodilators -O2 via NC prn for SOB -keep SpO2 >90% Code(s): J44.9 - CHRONIC OBSTRUCTIVE PULMONARY DISEASE, UNSPECIFIED Qualifiers: Emphysema type: unspecified (5) HLD (hyperlipidemia) Assessment/Plan: -Atorvastatin Code(s): E78.5 - HYPERLIPIDEMIA, UNSPECIFIED Qualifiers: Hyperlipidemia type: pure hypercholesterolemia Qualified Code(s): E78.00 - Pure hypercholesterolemia, unspecified; E78.0 - Pure hypercholesterolemia Assessment/Plan see problem list dvt ppx
--- NOTE | 2019-04-13 14:01 | PN ---
Progress Note, Physician History of Present Illness: AWAKE, ALERT NO C/O PAIN AFEBRILE WBC WNL - Current Medication List Current Medications: Active Medications Albuterol Sulfate (Ventolin 0.083% Nebulizer Soln -) 1 amp NEB RQID [facility] Last Admin: 04/13/19 11:35 Dose: 1 amp Aspirin (Ecotrin -) 81 mg PO DAILY [facility] Last Admin: 04/13/19 09:04 Dose: 81 mg Atorvastatin Calcium (Lipitor -) 40 mg PO HS [facility] Last Admin: 04/12/19 21:46 Dose: 40 mg Collagenase (Santyl -) 1 applic TP DAILY [facility]; Protocol Last Admin: 04/13/19 09:05 Dose: 1 applic Cyclobenzaprine HCl (Flexeril -) 10 mg PO BID PRN PRN Reason: MUSCLE SPASMS Heparin Sodium (Porcine) (Heparin -) 5,000 unit SQ TID [facility] Last Admin: 04/13/19 06:24 Dose: 5,000 unit Ampicillin Sodium/Sulbactam (Sodium 1.5 gm/ Sodium Chloride) 100 mls @ 200 mls/ hr IVPB Q6H-IV [facility] Last Admin: 04/13/19 08:51 Dose: 200 mls/hr Insulin Aspart (Novolog Vial Sliding Scale -) 1 vial SQ ACHS [facility]; Protocol Last Admin: 04/13/19 11:42 Dose: 2 units Insulin Detemir (Levemir Vial) 30 units SQ AM [facility] Last Admin: 04/13/19 06:24 Dose: 30 units Lactobacillus Acidophilus (Bacid -) 1 tab PO DAILY [facility] Last Admin: 04/13/19 09:04 Dose: 1 tab Lorazepam (Ativan -) 1 mg PO BID [facility] Last Admin: 04/13/19 09:04 Dose: 1 mg Meclizine HCl (Antivert -) 25 mg PO TID PRN PRN Reason: VERTIGO Miconazole Nitrate (Monistat-7 Vaginal Cream -) 1 applic VG HS [facility] Stop: 04/16/19 22:01 Last Admin: 04/12/19 21:47 Dose: 1 applic Ondansetron HCl (Zofran Odt -) 4 mg SL Q6H PRN PRN Reason: NAUSEA AND/OR VOMITING Last Admin: 04/12/19 17:00 Dose: 4 mg Oxycodone HCl (Roxicodone -) 5 mg PO Q4H PRN PRN Reason: PAIN LEVEL 1-5 Last Admin: 04/12/19 14:30 Dose: 5 mg Oxycodone HCl (Roxicodone -) 10 mg PO Q4H PRN PRN Reason: PAIN LEVEL 6-10 Last Admin: 04/13/19 10:22 Dose: 10 mg Pramipexole Dihydrochloride (Mirapex -) 0.25 mg PO HS [facility] Last Admin: 04/12/19 21:47 Dose: 0.25 mg Pregabalin (Lyrica -) 150 mg PO TID [facility] Last Admin: 04/13/19 06:24 Dose: 150 mg - Objective Vital Signs: Vital Signs Temperature 98.1 F 04/13/19 08:59 Pulse Rate 87 04/13/19 08:59 Respiratory Rate 19 04/13/19 09:00 Blood Pressure 101/63 04/13/19 08:59 O2 Sat by Pulse Oximetry (%) 98 04/13/19 09:00 Constitutional: Yes: No Distress Cardiovascular: Yes: Regular Rate and Rhythm, S1, S2 Respiratory: Yes: CTA Bilaterally Gastrointestinal: Yes: Normal Bowel Sounds, Soft. No: Tenderness Extremities: Yes: Other (S/P AKA) Integumentary: Yes: Other (SACRAL DECUBITUS ULCER) Labs: CBC, BMP 04/13/19 10:05 04/13/19 10:05 INR, PTT INR 0.97 (0.83-1.09) 04/10/19 07:25 Assessment/Plan INFECTED SACRAL DECUBITUS ULCER S/P DEBRIDEMENT DIABETES MELLITUS CKD SUBSTITUTE PO AUGMENTIN 875MG BID NEXT 24H
[2019-04-13] MEDS ORDERED: oxyCODONE HCL 5 MG TABLET PO PRN (18:53)
[2019-04-13] MEDS ORDERED: INSULIN (NOVOLOG) ASPART 100 UNITS/ML 10ML VIAL ONE (21:15)
[2019-04-13] MEDS: PRAMIPEXOLE DIHYDROCHLORIDE 0.25 MG TABLET PO SCH (21:32)
[2019-04-13] MEDS: ATORVASTATIN CA 40 MG TABLET (FP) PO SCH (21:32)
[2019-04-13] MEDS: MICONAZOLE NITRATE 2% VAGINAL CREAM 45 GM TUBE VG SCH (21:33)
[2019-04-14] MEDS: oxyCODONE HCL 5 MG TABLET PO PRN ×3 (02:59→15:05)
[2019-04-14] MEDS: AMPICILLIN NA/SULBACTAM NA 1.5 GM in SODIUM CHLORIDE 100 ML IVPB SCH ×3 (02:59→15:06)
[2019-04-14] MEDS ORDERED: INSULIN (NOVOLOG) ASPART 100 UNITS/ML 10ML VIAL ONE ×3 (06:02→21:26)
[2019-04-14] MEDS: PREGABALIN 75 MG CAPSULE PO SCH ×3 (06:11→21:36)
[2019-04-14] MEDS: INSULIN SLIDING SCALE (NOVOLOG) 1 VIAL SQ SCH ×4 (06:11→21:36)
[2019-04-14] MEDS: HEPARIN NA (PORCINE) 5,000 UNITS/ML 1ML VIAL SQ SCH ×3 (06:11→21:35)
[2019-04-14] MEDS: INSULIN (LEVEMIR) 100 UNITS/ML UNITS SQ SCH (06:11)
[2019-04-14] MEDS: ALBUTEROL SO4 0.083% IH SOL 2.5 MG/3 ML VIAL.NEB. NEB SCH ×4 (07:19→19:12)
[2019-04-14 08:46] LABS: ALBUMIN 2.6 g/dl (3.4-5.0); BILIRUBIN,TOTAL 0.2 mg/dL (0.2-1); BLOOD UREA NITROGEN 23.9 mg/dL (7-18); CREATININE 1.3 mg/dL (0.55-1.3); POTASSIUM 4.5 mmol/L (3.5-5.1); TOT PROT 6.7 g/dl (6.4-8.2)
[2019-04-14] MEDS ORDERED: PT OWN MED DRAWER 7, Y5N ONE ×3 (09:11→17:52)
[2019-04-14] MEDS: LORazepam 0.5 MG TABLET PO SCH ×2 (09:15→21:35)
[2019-04-14] MEDS: LACTOBACILLUS ACIDOPHILUS 1 TABLET PO SCH (09:15)
[2019-04-14 09:16] LABS: HEMATOCRIT 30.1 % (32.4-45.2); HEMOGLOBIN 9.8 GM/dL (10.7-15.3); MCH 27.6 pg (25.7-33.7); MCHC 32.7 g/dl (32.0-36.0); MEAN CELL VOLUME 84.7 fl (80-96); MEAN PLT VOLUME 9.8 fl (7.5-11.1); PLATELET COUNT 246 K/MM3 (134-434); RBC 3.56 M/mm3 (3.60-5.2); RDW 16.9 % (11.6-15.6); WHITE BLOOD COUNT 9.5 K/mm3 (4.0-10.0)
[2019-04-14] MEDS: COLLAGENASE CLOSTRIDIUM HIST. 30 GRAMS TUBE TP SCH (09:16)
[2019-04-14] MEDS: ASPIRIN COATED 81 MG TABLET.EC PO SCH (09:16)
--- NOTE | 2019-04-14 11:53 | DS ---
Physical Examination Vital Signs: Vital Signs Temperature 98.1 F 04/14/19 05:00 Pulse Rate 82 04/14/19 05:00 Respiratory Rate 18 04/14/19 05:00 Blood Pressure 100/60 04/14/19 05:00 O2 Sat by Pulse Oximetry (%) 98 04/13/19 09:00 Constitutional: Yes: Calm Cardiovascular: Yes: Regular Rate and Rhythm, S1, S2 Respiratory: Yes: CTA Bilaterally Gastrointestinal: Yes: Normal Bowel Sounds, Soft Extremities: Yes: Other (BKA) Wound/Incision: Yes: Other (sacral wound) Neurological: Yes: Alert, Oriented Labs: CBC, BMP 04/14/19 08:00 04/14/19 08:00 Discharge Summary Reason For Visit: WOUND OF SACRAL REGION Current Active Problems Infected pressure ulcer (Acute) Hospital Course: 44 y/o F, extensive pmh of decubitus ulcers, CVA, PAD, CAD, [place] s/p cath, COPD, Asthma, CKD, HTN, DM, left Below knee amputation, presents to the ED c/o of worsening left buttock decubitus ulcer and pain. Pt said the pain and ulcer has worsened since her last admission 2 weeks ago. She was admitted 2 weeks ago for the same decubitus ulcer, during which CT pelvis showed fluid collection/abscess , which Dr. Torres, vascular surgery, drained. She was then treated with Unasyn and sent home on Augmentin with instructions to continue abx, follow up wound care and visiting nurses service. She reports that the visiting nurses providing inadequate care, hence led to the worsening of her ulcer. During her previous visit, CT pelvis had shown Currently pt is stable and still c/o of pain. She admits to diarrhea. Denies fevers, chills, n/v, sob, headaches, chest pain, numbness or tingling. 04/10/19 unstageable sacral pressure ulcer excisional debridement of non viable skin/subcutaneous tissue/muscle and fascia. got iv abx and now change to PO abx and ready for discharge home Condition: Stable - Instructions Disposition: VNS/HOME HEALTH CARE - Home Medications Comprehensive Discharge Medication List: Ambulatory Orders Budesonide [Pulmicort 0.25 mg Nebulizer -] 1 neb PO BID 11/21/15 Albuterol 0.083% Nebulizer Carolyn [Ventolin 0.083% Nebulizer Soln -] 1 amp NEB Q6HPO amp 12/15/15 Pregabalin [Lyrica -] 150 mg PO TID 04/15/16 Acetaminophen [Tylenol .Regular Strength -] 650 mg PO Q6H PRN #0 tablet Docusate Sodium [Colace -] 100 mg PO BID #60 11/22/16 Iron Polysaccharides [Niferex-150 -] 150 mg PO DAILY #30 11/22/16 Meclizine HCl [Antivert -] 25 mg PO TID PRN #90 tablet 11/22/16 Aspirin Coated [Ecotrin -] 81 mg PO DAILY tablet.ec 01/25/18 Cyclobenzaprine HCl [Flexeril -] 1 tab PO BID PRN 06/28/18 Rivaroxaban [Xarelto] 1 tab PO DAILY 06/28/18 LORazepam [Ativan] 1 mg PO BID MDD 2 01/10/19 Atorvastatin Ca [Lipitor] 40 mg PO HS #30 tablet 01/16/19 Insulin Sliding Scale [Novolog Vial Sliding Scale -] 1 vial SQ TIDAC units 08/21 oxyCODONE HCL [Roxicodone -] 10 mg PO Q6H PRN tablet MDD 4 03/14/19 Amox-Tr/K Cl [Augmentin 500-125mg Tablet -] 1 each PO BID 14 Days #28 tablet Collagenase Clostridium Hist. [Santyl -] 1 applic TP DAILY tube 03/26/19 Insulin (Levemir) [Levemir Vial] 30 units SQ HS units 03/26/19 Nystatin Cream [Mycostatin Cream -] 1 applic TP BID applic 03/26/19 Polyethylene Glycol 3350 [Miralax 119 gm Btl -] 17 gm PO DAILY bottle 03/26/19 Pramipexole Dihydrochloride [Mirapex -] 0.25 mg PO HS tablet 03/26/19
--- NOTE | 2019-04-14 15:42 | PATH ---
Surgical Pathology Report Patient Name: SARAH TREVIÑO [facility] [place]. Rec. #: [id number] /Age/Gender: 1975 (Age: 44) / F Account: [id number] Location: [address] [place] [address]/[facility] Taken: 04/10/2019 Received: 04/11/2019 Reported: 04/14/2019 Physicians: Carmella Conley M.D. Specimen(s) Received DEBRIDEMENT TISSUE FROM SACRUM AND BUTTOCKS Clinical History Sacral and buttock wound Final Diagnosis DEBRIDED TISSUE FROM SACRUM AND BUTTOCK, DEBRIDEMENT: SKIN AND FIBROADIPOSE TISSUE WITH GANGRENOUS NECROSIS, SEVERE ACUTE AND CHRONIC INFLAMMATION WITH FOCAL ABSCESS FORMATION. Electronically Signed Reymundo Shaver M.D. Gross Description Received in formalin labeled "debrided tissue from sacrum and buttock" is a focally hemorrhagic, ulcerated, and necrotic skin and underlying soft tissue which measures 8 x 5 x 3 cm. Presentative sections are submitted in one cassette. [email or web address]/04/11/2019 yoshi/04/11/2019
[2019-04-14] MEDS: AMOX TR/POT CLAV 875MG/125MG TABLETS (FP) PO SCH (21:35)
[2019-04-14] MEDS: PRAMIPEXOLE DIHYDROCHLORIDE 0.25 MG TABLET PO SCH (21:36)
[2019-04-14] MEDS: MICONAZOLE NITRATE 2% VAGINAL CREAM 45 GM TUBE VG SCH (21:36)
[2019-04-14] MEDS: ATORVASTATIN CA 40 MG TABLET (FP) PO SCH (21:36)
[2019-04-15] MEDS: HEPARIN NA (PORCINE) 5,000 UNITS/ML 1ML VIAL SQ SCH ×3 (06:35→21:23)
[2019-04-15] MEDS: INSULIN (LEVEMIR) 100 UNITS/ML UNITS SQ SCH (06:36)
[2019-04-15] MEDS: PREGABALIN 75 MG CAPSULE PO SCH ×3 (06:36→21:20)
[2019-04-15] MEDS: oxyCODONE HCL 5 MG TABLET PO PRN ×3 (06:36→21:20)
[2019-04-15] MEDS: INSULIN SLIDING SCALE (NOVOLOG) 1 VIAL SQ SCH ×4 (06:36→21:11)
[2019-04-15] MEDS ORDERED: PT OWN MED DRAWER 7, Y5N ONE ×2 (08:18→09:09)
[2019-04-15] MEDS: ALBUTEROL SO4 0.083% IH SOL 2.5 MG/3 ML VIAL.NEB. NEB SCH ×2 (08:40→12:40)
[2019-04-15] MEDS: ASPIRIN COATED 81 MG TABLET.EC PO SCH (09:16)
[2019-04-15] MEDS: LORazepam 0.5 MG TABLET PO SCH ×2 (09:16→21:22)
[2019-04-15] MEDS: LACTOBACILLUS ACIDOPHILUS 1 TABLET PO SCH (09:16)
[2019-04-15] MEDS: AMOX TR/POT CLAV 875MG/125MG TABLETS (FP) PO SCH ×2 (09:16→17:45)
[2019-04-15] MEDS: COLLAGENASE CLOSTRIDIUM HIST. 30 GRAMS TUBE TP SCH (09:17)
[2019-04-15 11:27] VITALS: BMI 27.6
--- NOTE | 2019-04-15 14:00 | PN ---
Progress Note, Physician Chief Complaint: Infected Sacral Wound History of Present Illness: Previous notes and events reviewed awake and alert NAD POD #5 s/p excisional debridement of non-viable skin/subcutaneous tissue/muscle and fascia states nausea has resolved patient is pending acceptance to home care agency for discharge - Current Medication List Current Medications: Active Medications Albuterol Sulfate (Ventolin 0.083% Nebulizer Soln -) 1 amp NEB RQID [facility] Last Admin: 04/15/19 12:40 Dose: 1 amp Amoxicillin/Clavulanate Potassium (Augmentin - 875mg Tablet) 1 tab PO BID@0800, 1730 [facility] Last Admin: 04/15/19 09:16 Dose: 1 tab Aspirin (Ecotrin -) 81 mg PO DAILY [facility] Last Admin: 04/15/19 09:16 Dose: 81 mg Atorvastatin Calcium (Lipitor -) 40 mg PO HS [facility] Last Admin: 04/14/19 21:36 Dose: 40 mg Collagenase (Santyl -) 1 applic TP DAILY [facility]; Protocol Last Admin: 04/15/19 09:17 Dose: 1 applic Cyclobenzaprine HCl (Flexeril -) 10 mg PO BID PRN PRN Reason: MUSCLE SPASMS Heparin Sodium (Porcine) (Heparin -) 5,000 unit SQ TID [facility] Last Admin: 04/15/19 06:35 Dose: 5,000 unit Insulin Aspart (Novolog Vial Sliding Scale -) 1 vial SQ ACHS [facility]; Protocol Last Admin: 04/15/19 11:38 Dose: Not Given Insulin Detemir (Levemir Vial) 30 units SQ AM [facility] Last Admin: 04/15/19 06:36 Dose: 30 units Lactobacillus Acidophilus (Bacid -) 1 tab PO DAILY [facility] Last Admin: 04/15/19 09:16 Dose: 1 tab Lorazepam (Ativan -) 1 mg PO BID [facility] Last Admin: 04/15/19 09:16 Dose: 1 mg Meclizine HCl (Antivert -) 25 mg PO TID PRN PRN Reason: VERTIGO Miconazole Nitrate (Monistat-7 Vaginal Cream -) 1 applic VG HS [facility] Stop: 04/16/19 22:01 Last Admin: 04/14/19 21:36 Dose: 1 applic Ondansetron HCl (Zofran Odt -) 4 mg SL Q6H PRN PRN Reason: NAUSEA AND/OR VOMITING Last Admin: 04/12/19 17:00 Dose: 4 mg Oxycodone HCl (Roxicodone -) 5 mg PO Q4H PRN PRN Reason: PAIN LEVEL 1-5 Oxycodone HCl (Roxicodone -) 10 mg PO Q4H PRN PRN Reason: PAIN LEVEL 6-10 Last Admin: 04/15/19 06:36 Dose: 10 mg Pramipexole Dihydrochloride (Mirapex -) 0.25 mg PO HS [facility] Last Admin: 04/14/19 21:36 Dose: 0.25 mg Pregabalin (Lyrica -) 150 mg PO TID [facility] Last Admin: 04/15/19 06:36 Dose: 150 mg - Objective Vital Signs: Vital Signs Temperature 98.9 F 04/15/19 06:00 Pulse Rate 88 04/15/19 06:00 Respiratory Rate 18 04/15/19 09:00 Blood Pressure 102/66 04/15/19 06:00 O2 Sat by Pulse Oximetry (%) 98 04/15/19 09:00 Constitutional: Yes: No Distress, Calm Eyes: Yes: Conjunctiva Clear HENT: Yes: Atraumatic Cardiovascular: Yes: Regular Rate and Rhythm Respiratory: Yes: Regular, CTA Bilaterally Gastrointestinal: Yes: Normal Bowel Sounds, Soft Musculoskeletal: Yes: Muscle Weakness Extremities: Yes: Amputation (L AKA) Integumentary: Yes: Pressure Ulcer (sacral) Wound/Incision: Yes: Dressing Dry and Intact Neurological: Yes: Alert, Oriented Psychiatric: Yes: Alert, Oriented Labs: CBC, BMP 04/14/19 08:00 04/14/19 08:00 INR, PTT INR 0.97 (0.83-1.09) 04/10/19 07:25 Microbiology 04/08/19 23:28 Blood - Peripheral Venous Blood Culture - Final NO GROWTH AFTER 5 DAYS INCUBATION 04/08/19 23:30 Blood - Peripheral Venous Blood Culture - Final NO GROWTH AFTER 5 DAYS INCUBATION 04/09/19 00:45 Wound Gram Stain - Final 04/09/19 00:45 Wound Wound Culture - Final Staphylococcus Aureus Enterococcus Faecalis Yeast Like Organism Problem List - Problems (1) Infected pressure ulcer Assessment/Plan: -Vascular Surgery on board -ID on board -Pelvic CT scan shows increasing soft tissue in the gluteal region about the distal sacrum and coccyx consistent with worsening decubitis ulcer, no definite evidence of discrete abscess or osteomyelitis -no leukocytosis -afebrile -wound culture positive -Augmentin Code(s): L89.90 - PRESSURE ULCER OF UNSPECIFIED SITE, UNSPECIFIED STAGE; L08.9 - LOCAL INFECTION OF THE SKIN AND SUBCUTANEOUS TISSUE, UNSP Qualifiers: Pressure injury stage: unstageable Qualified Code(s): L89.95 - Pressure ulcer of unspecified site, unstageable; L08.9 - Local infection of the skin and subcutaneous tissue, unspecified (2) Acute kidney injury superimposed on chronic kidney disease Assessment/Plan: -BUN/Cr 23.9/1.3 -monitor renal function Code(s): N17.9 - ACUTE KIDNEY FAILURE, UNSPECIFIED; N18.9 - CHRONIC KIDNEY DISEASE, UNSPECIFIED (3) CAD (coronary artery disease) Assessment/Plan: -Atorvastatin Code(s): I25.10 - ATHSCL HEART DISEASE OF [place] CORONARY ARTERY W/O ANG PCTRS Qualifiers: Coronary Disease-Associated Artery/Lesion type: coronary artery bypass graft Associated angina: without angina pectoris (4) COPD (chronic obstructive pulmonary disease) Assessment/Plan: -bronchodilators -O2 via NC prn for SOB -keep SpO2 >90% Code(s): J44.9 - CHRONIC OBSTRUCTIVE PULMONARY DISEASE, UNSPECIFIED Qualifiers: Emphysema type: unspecified (5) HLD (hyperlipidemia) Assessment/Plan: -Atorvastatin Code(s): E78.5 - HYPERLIPIDEMIA, UNSPECIFIED Qualifiers: Hyperlipidemia type: pure hypercholesterolemia Qualified Code(s): E78.00 - Pure hypercholesterolemia, unspecified; E78.0 - Pure hypercholesterolemia (6) Diabetes mellitus Assessment/Plan: -BGM ACHS -Levemir -ISS -diabetic diet Code(s): E11.9 - TYPE 2 DIABETES MELLITUS WITHOUT COMPLICATIONS Qualifiers: Diabetes mellitus type: type 2 Assessment/Plan see problem list dvt ppx
[2019-04-15] MEDS ORDERED: INSULIN (NOVOLOG) ASPART 100 UNITS/ML 10ML VIAL ONE (17:24)
[2019-04-15] MEDS: PRAMIPEXOLE DIHYDROCHLORIDE 0.25 MG TABLET PO SCH (21:24)
[2019-04-15] MEDS: ATORVASTATIN CA 40 MG TABLET (FP) PO SCH (21:24)
[2019-04-15] MEDS: MICONAZOLE NITRATE 2% VAGINAL CREAM 45 GM TUBE VG SCH (21:29)
[2019-04-16] MEDS ORDERED: INSULIN (NOVOLOG) ASPART 100 UNITS/ML 10ML VIAL ONE (05:28)
[2019-04-16] MEDS: PREGABALIN 75 MG CAPSULE PO SCH ×3 (06:07→22:20)
[2019-04-16] MEDS: HEPARIN NA (PORCINE) 5,000 UNITS/ML 1ML VIAL SQ SCH ×3 (06:07→22:25)
[2019-04-16] MEDS: INSULIN (LEVEMIR) 100 UNITS/ML UNITS SQ SCH (06:14)
[2019-04-16] MEDS: INSULIN SLIDING SCALE (NOVOLOG) 1 VIAL SQ SCH ×4 (06:16→22:33)
[2019-04-16 07:03] LABS: HEMATOCRIT 30.2 % (32.4-45.2); HEMOGLOBIN 9.8 GM/dL (10.7-15.3); MCH 27.4 pg (25.7-33.7); MCHC 32.5 g/dl (32.0-36.0); MEAN CELL VOLUME 84.2 fl (80-96); MEAN PLT VOLUME 10.1 fl (7.5-11.1); PLATELET COUNT 278 K/MM3 (134-434); RBC 3.59 M/mm3 (3.60-5.2); WHITE BLOOD COUNT 9.3 K/mm3 (4.0-10.0)
[2019-04-16 07:30] LABS: ALBUMIN 2.5 g/dl (3.4-5.0); BILIRUBIN,TOTAL 0.3 mg/dL (0.2-1); BLOOD UREA NITROGEN 29.5 mg/dL (7-18); CALCIUM 9.2 mg/dL (8.5-10.1); CREATININE 1.3 mg/dL (0.55-1.3); POTASSIUM 4.4 mmol/L (3.5-5.1); TOT PROT 6.7 g/dl (6.4-8.2)
[2019-04-16] MEDS: LACTOBACILLUS ACIDOPHILUS 1 TABLET PO SCH ×2 (09:38→22:24)
[2019-04-16] MEDS: AMOX TR/POT CLAV 875MG/125MG TABLETS (FP) PO SCH ×2 (09:38→17:55)
[2019-04-16] MEDS: LORazepam 0.5 MG TABLET PO SCH ×2 (09:39→22:24)
[2019-04-16] MEDS: COLLAGENASE CLOSTRIDIUM HIST. 30 GRAMS TUBE TP SCH (09:39)
[2019-04-16] MEDS: ASPIRIN COATED 81 MG TABLET.EC PO SCH (09:39)
[2019-04-16] MEDS: oxyCODONE HCL 5 MG TABLET PO PRN ×4 (09:40→22:20)
--- NOTE | 2019-04-16 14:11 | PN ---
Progress Note, Physician Chief Complaint: Infected Sacral Wound History of Present Illness: Previous notes and events reviewed awake and alert NAD POD #6 s/p excisional debridement of non-viable skin/subcutaneous tissue/muscle and fascia states nausea has resolved having loose BMs patient has been denied by visiting nurse home services, not safe discharge to go home without services due to daily wound care and lack of support at home needed for daily dressing changes, patient will run risk of re-infection of wound and worsening breakdown to wound and skin surrounding area, patient will need placement for SNF - Current Medication List Current Medications: Active Medications Amoxicillin/Clavulanate Potassium (Augmentin - 875mg Tablet) 1 tab PO BID@0800, 1730 [facility] Last Admin: 04/16/19 09:38 Dose: 1 tab Aspirin (Ecotrin -) 81 mg PO DAILY [facility] Last Admin: 04/16/19 09:39 Dose: 81 mg Atorvastatin Calcium (Lipitor -) 40 mg PO HS [facility] Last Admin: 04/15/19 21:24 Dose: 40 mg Collagenase (Santyl -) 1 applic TP DAILY [facility]; Protocol Last Admin: 04/16/19 09:39 Dose: 1 applic Cyclobenzaprine HCl (Flexeril -) 10 mg PO BID PRN PRN Reason: MUSCLE SPASMS Heparin Sodium (Porcine) (Heparin -) 5,000 unit SQ TID [facility] Last Admin: 04/16/19 13:22 Dose: 5,000 unit Insulin Aspart (Novolog Vial Sliding Scale -) 1 vial SQ ACHS [facility]; Protocol Last Admin: 04/16/19 11:44 Dose: 4 units Insulin Detemir (Levemir Vial) 30 units SQ AM [facility] Last Admin: 04/16/19 06:14 Dose: 30 units Lactobacillus Acidophilus (Bacid -) 1 tab PO BID MICK Lorazepam (Ativan -) 1 mg PO BID [facility] Last Admin: 04/16/19 09:39 Dose: 1 mg Meclizine HCl (Antivert -) 25 mg PO TID PRN PRN Reason: VERTIGO Miconazole Nitrate (Monistat-7 Vaginal Cream -) 1 applic VG HS [facility] Stop: 04/16/19 22:01 Last Admin: 04/15/19 21:29 Dose: 1 applic Ondansetron HCl (Zofran Odt -) 4 mg SL Q6H PRN PRN Reason: NAUSEA AND/OR VOMITING Last Admin: 04/12/19 17:00 Dose: 4 mg Oxycodone HCl (Roxicodone -) 5 mg PO Q4H PRN PRN Reason: PAIN LEVEL 1-5 Oxycodone HCl (Roxicodone -) 10 mg PO Q4H PRN PRN Reason: PAIN LEVEL 6-10 Last Admin: 04/16/19 13:59 Dose: 10 mg Pramipexole Dihydrochloride (Mirapex -) 0.25 mg PO HS [facility] Last Admin: 04/15/19 21:24 Dose: 0.25 mg Pregabalin (Lyrica -) 150 mg PO TID [facility] Last Admin: 04/16/19 13:22 Dose: 150 mg - Objective Vital Signs: Vital Signs Temperature 98.5 F 04/16/19 10:21 Pulse Rate 93 H 04/16/19 10:21 Respiratory Rate 18 04/16/19 10:21 Blood Pressure 121/65 04/16/19 10:21 O2 Sat by Pulse Oximetry (%) 99 04/16/19 07:39 Constitutional: Yes: No Distress, Calm Eyes: Yes: Conjunctiva Clear HENT: Yes: Atraumatic Cardiovascular: Yes: Regular Rate and Rhythm Respiratory: Yes: Regular, CTA Bilaterally Gastrointestinal: Yes: Normal Bowel Sounds, Soft, Tenderness (left side of abdomen) Genitourinary: Yes: Incontinence Musculoskeletal: Yes: Muscle Weakness Extremities: Yes: Amputation (L AKA) Edema: No Integumentary: Yes: Pressure Ulcer (sacral area) Wound/Incision: Yes: Dressing Dry and Intact Neurological: Yes: Alert, Oriented Psychiatric: Yes: Alert, Oriented Labs: CBC, BMP 04/16/19 06:30 04/16/19 06:30 INR, PTT INR 0.97 (0.83-1.09) 04/10/19 07:25 Microbiology 04/14/19 16:00 Stool Salmonella/Shigella Culture - Preliminary Yeast Like Organism 04/14/19 16:00 Stool Yersinia Culture - Preliminary NO ENTERIC PATHOGENS, 24 HOURS, ON PRIMARY PLATES 04/14/19 16:00 Stool Vibrio Culture - Final NO GROWTH OF VIBRIO SPECIES OBTAINED 04/14/19 16:00 Stool Escherichia coli 0157 Culture - Final NO GROWTH OF E COLI 0157 OBTAINED 04/08/19 23:28 Blood - Peripheral Venous Blood Culture - Final NO GROWTH AFTER 5 DAYS INCUBATION 04/08/19 23:30 Blood - Peripheral Venous Blood Culture - Final NO GROWTH AFTER 5 DAYS INCUBATION 04/09/19 00:45 Wound Gram Stain - Final 04/09/19 00:45 Wound Wound Culture - Final Staphylococcus Aureus Enterococcus Faecalis Yeast Like Organism Problem List - Problems (1) Infected pressure ulcer Assessment/Plan: -Vascular Surgery on board -ID on board -Pelvic CT scan shows increasing soft tissue in the gluteal region about the distal sacrum and coccyx consistent with worsening decubitis ulcer, no definite evidence of discrete abscess or osteomyelitis -no leukocytosis -afebrile -wound culture positive -Augmentin -daily dressing change -cleanse wound with NS and apply Santyl as scheduled Code(s): L89.90 - PRESSURE ULCER OF UNSPECIFIED SITE, UNSPECIFIED STAGE; L08.9 - LOCAL INFECTION OF THE SKIN AND SUBCUTANEOUS TISSUE, UNSP Qualifiers: Pressure injury stage: unstageable Qualified Code(s): L89.95 - Pressure ulcer of unspecified site, unstageable; L08.9 - Local infection of the skin and subcutaneous tissue, unspecified (2) Acute kidney injury superimposed on chronic kidney disease Assessment/Plan: -BUN/Cr 29.5/1.3 -monitor renal function Code(s): N17.9 - ACUTE KIDNEY FAILURE, UNSPECIFIED; N18.9 - CHRONIC KIDNEY DISEASE, UNSPECIFIED (3) CAD (coronary artery disease) Assessment/Plan: -Atorvastatin Code(s): I25.10 - ATHSCL HEART DISEASE OF [place] CORONARY ARTERY W/O ANG PCTRS Qualifiers: Coronary Disease-Associated Artery/Lesion type: coronary artery bypass graft Associated angina: without angina pectoris (4) COPD (chronic obstructive pulmonary disease) Assessment/Plan: -bronchodilators -O2 via NC prn for SOB -keep SpO2 >90% Code(s): J44.9 - CHRONIC OBSTRUCTIVE PULMONARY DISEASE, UNSPECIFIED Qualifiers: Emphysema type: unspecified (5) HLD (hyperlipidemia) Assessment/Plan: -Atorvastatin Code(s): E78.5 - HYPERLIPIDEMIA, UNSPECIFIED Qualifiers: Hyperlipidemia type: pure hypercholesterolemia Qualified Code(s): E78.00 - Pure hypercholesterolemia, unspecified; E78.0 - Pure hypercholesterolemia (6) Diabetes mellitus Assessment/Plan: -BG ACHS -Levemir -ISS -diabetic diet Code(s): E11.9 - TYPE 2 DIABETES MELLITUS WITHOUT COMPLICATIONS Qualifiers: Diabetes mellitus type: type 2 (7) Loose stools Assessment/Plan: -Stool culture done -Stool WBC ordered -Bacid BID -afebrile, no leukocytosis Code(s): R19.5 - OTHER FECAL ABNORMALITIES Assessment/Plan see problem list dvt ppx
--- NOTE | 2019-04-16 17:16 | DS ---
Physical Examination Vital Signs: Vital Signs Temperature 98.5 F 04/16/19 10:21 Pulse Rate 93 H 04/16/19 10:21 Respiratory Rate 18 04/16/19 10:21 Blood Pressure 121/65 04/16/19 10:21 O2 Sat by Pulse Oximetry (%) 99 04/16/19 07:39 Constitutional: Yes: No Distress, Calm Eyes: Yes: Conjunctiva Clear HENT: Yes: Atraumatic Cardiovascular: Yes: Regular Rate and Rhythm Respiratory: Yes: Regular, CTA Bilaterally Gastrointestinal: Yes: Normal Bowel Sounds, Soft Musculoskeletal: Yes: Muscle Weakness Extremities: Yes: Amputation (L AKA) Edema: No Integumentary: Yes: Pressure Ulcer (sacrum) Wound/Incision: Yes: Dressing Dry and Intact Neurological: Yes: Alert, Oriented Psychiatric: Yes: Alert, Oriented Labs: CBC, BMP 04/16/19 06:30 04/16/19 06:30 Discharge Summary Reason For Visit: WOUND OF SACRAL REGION Current Active Problems Infected pressure ulcer (Acute) Loose stools (Acute) Procedures: Principal: surgical wound debridement Hospital Course: Patient is a 44 y/o female with past medical history of CVA, PAD, CAD, [place] s/p cath, COPD, Asthma, CKD, HTN, DM, L AKA. Patient presented to ER with complaints left buttock decubiti ulcer and pain. Pain and ulcer has worsened since last admission 2 weeks ago[address] Last admission CT scan done showed fluid collection/abscess which was drained by Vascular. She was treated with IV ABT and sent home on oral antibiotics and VNS for wound care put in place. On 04/10/19 patient had surgical excisional debridement of nonviable skin/ subcutaneous tissue/muscle and fascia. Received IV antibiotics and was switched to oral antibiotics. Condition: Stable - Instructions Diet, Activity, Other Instructions: clean open wounds with saline and re pack with gauze apply santyl to wound change dressing daily and as needed if soiled air mattress frequent turn and position Disposition: CUSTODIAL FACILITY - Home Medications Comprehensive Discharge Medication List: Ambulatory Orders Budesonide [Pulmicort 0.25 mg Nebulizer -] 1 neb PO BID 11/21/15 Albuterol 0.083% Nebulizer Carolyn [Ventolin 0.083% Nebulizer Soln -] 1 amp NEB Q6HPO amp 12/15/15 Pregabalin [Lyrica -] 150 mg PO TID 04/15/16 Acetaminophen [Tylenol .Regular Strength -] 650 mg PO Q6H PRN #0 tablet Docusate Sodium [Colace -] 100 mg PO BID #60 11/22/16 Iron Polysaccharides [Niferex-150 -] 150 mg PO DAILY #30 11/22/16 Meclizine HCl [Antivert -] 25 mg PO TID PRN #90 tablet 11/22/16 Aspirin Coated [Ecotrin -] 81 mg PO DAILY tablet.ec 01/25/18 Cyclobenzaprine HCl [Flexeril -] 1 tab PO BID PRN 06/28/18 Rivaroxaban [Xarelto] 1 tab PO DAILY 06/28/18 LORazepam [Ativan] 1 mg PO BID MDD 2 01/10/19 Atorvastatin Ca [Lipitor] 40 mg PO HS #30 tablet 01/16/19 Insulin Sliding Scale [Novolog Vial Sliding Scale -] 1 vial SQ TIDAC units 08/21 oxyCODONE HCL [Roxicodone -] 10 mg PO Q6H PRN tablet MDD 4 03/14/19 Amox-Tr/K Cl [Augmentin 500-125mg Tablet -] 1 each PO BID 14 Days #28 tablet Collagenase Clostridium Hist. [Santyl -] 1 applic TP DAILY tube 03/26/19 Insulin (Levemir) [Levemir Vial] 30 units SQ HS units 03/26/19 Nystatin Cream [Mycostatin Cream -] 1 applic TP BID applic 03/26/19 Polyethylene Glycol 3350 [Miralax 119 gm Btl -] 17 gm PO DAILY bottle 03/26/19 Pramipexole Dihydrochloride [Mirapex -] 0.25 mg PO HS tablet 03/26/19 Amoxicillin/Potassium Clav [Augmentin 875-125 Tablet] 1 each PO BID #1 tablet Amox-Tr/K Cl [Augmentin 875-125mg Tablet -] 1 tab PO BID@0800,1730 5 Days tablet 04/16/19 Insulin (Levemir) [Levemir Vial] 30 units SQ AM units 04/16/19 Lactobacillus Acidophilus [Bacid -] 1 tab PO BID tab 04/16/19 Miconazole Nitrate [Monistat-7 -] 1 applic VG HS tube 04/16/19
[2019-04-16] MEDS: PRAMIPEXOLE DIHYDROCHLORIDE 0.25 MG TABLET PO SCH (22:19)
[2019-04-16] MEDS: ATORVASTATIN CA 40 MG TABLET (FP) PO SCH (22:23)
[2019-04-16] MEDS: MICONAZOLE NITRATE 2% VAGINAL CREAM 45 GM TUBE VG SCH (22:29)
[2019-04-17] MEDS: HEPARIN NA (PORCINE) 5,000 UNITS/ML 1ML VIAL SQ SCH ×2 (06:10→15:20)
[2019-04-17] MEDS: PREGABALIN 75 MG CAPSULE PO SCH ×2 (06:10→15:20)
[2019-04-17] MEDS: INSULIN (LEVEMIR) 100 UNITS/ML UNITS SQ SCH (06:11)
[2019-04-17] MEDS: oxyCODONE HCL 5 MG TABLET PO PRN ×3 (06:17→15:19)
[2019-04-17] MEDS: INSULIN SLIDING SCALE (NOVOLOG) 1 VIAL SQ SCH ×3 (06:26→17:13)
[2019-04-17 08:49] LABS: HEMATOCRIT 30.2 % (32.4-45.2); HEMOGLOBIN 9.7 GM/dL (10.7-15.3); MCH 27.3 pg (25.7-33.7); MCHC 32.2 g/dl (32.0-36.0); MEAN CELL VOLUME 84.7 fl (80-96); MEAN PLT VOLUME 10.5 fl (7.5-11.1); PLATELET COUNT 273 K/MM3 (134-434); RBC 3.56 M/mm3 (3.60-5.2); RDW 16.9 % (11.6-15.6); WHITE BLOOD COUNT 9.2 K/mm3 (4.0-10.0)
[2019-04-17 09:22] LABS: ALBUMIN 2.7 g/dl (3.4-5.0); BILIRUBIN,TOTAL 0.2 mg/dL (0.2-1); BLOOD UREA NITROGEN 30.5 mg/dL (7-18); CALCIUM 9.3 mg/dL (8.5-10.1); CREATININE 1.4 mg/dL (0.55-1.3); POTASSIUM 4.9 mmol/L (3.5-5.1); TOT PROT 7.2 g/dl (6.4-8.2)
[2019-04-17] MEDS: AMOX TR/POT CLAV 875MG/125MG TABLETS (FP) PO SCH (11:06)
[2019-04-17] MEDS: LORazepam 0.5 MG TABLET PO SCH (11:07)
[2019-04-17] MEDS: LACTOBACILLUS ACIDOPHILUS 1 TABLET PO SCH (11:08)
[2019-04-17] MEDS: ASPIRIN COATED 81 MG TABLET.EC PO SCH (11:08)
[2019-04-17] MEDS: COLLAGENASE CLOSTRIDIUM HIST. 30 GRAMS TUBE TP SCH (11:09)
--- NOTE | 2019-04-17 13:32 | PN ---
Progress Note, Physician Chief Complaint: Infected Sacral Wound History of Present Illness: Previous notes and events reviewed awake and alert NAD denies complaints of chest pain or SOB having loose BMs patient has been denied by visiting nurse home services, not safe discharge to go home without services due to daily wound care and lack of support at home needed for daily dressing changes, patient will run risk of re-infection of wound and worsening breakdown to wound and skin surrounding area, patient will need placement for SNF - Current Medication List Current Medications: Active Medications Amoxicillin/Clavulanate Potassium (Augmentin - 875mg Tablet) 1 tab PO BID@0800, 1730 [facility] Last Admin: 04/17/19 11:06 Dose: 1 tab Aspirin (Ecotrin -) 81 mg PO DAILY [facility] Last Admin: 04/17/19 11:08 Dose: 81 mg Atorvastatin Calcium (Lipitor -) 40 mg PO HS [facility] Last Admin: 04/16/19 22:23 Dose: 40 mg Collagenase (Santyl -) 1 applic TP DAILY [facility]; Protocol Last Admin: 04/17/19 11:09 Dose: 1 applic Cyclobenzaprine HCl (Flexeril -) 10 mg PO BID PRN PRN Reason: MUSCLE SPASMS Last Admin: 04/17/19 11:06 Dose: 10 mg Heparin Sodium (Porcine) (Heparin -) 5,000 unit SQ TID [facility] Last Admin: 04/17/19 06:10 Dose: 5,000 unit Insulin Aspart (Novolog Vial Sliding Scale -) 1 vial SQ ACHS [facility]; Protocol Last Admin: 04/17/19 12:03 Dose: 4 units Insulin Detemir (Levemir Vial) 30 units SQ AM [facility] Last Admin: 04/17/19 06:11 Dose: 30 units Lactobacillus Acidophilus (Bacid -) 1 tab PO BID [facility] Last Admin: 04/17/19 11:08 Dose: 1 tab Lorazepam (Ativan -) 1 mg PO BID [facility] Last Admin: 04/17/19 11:07 Dose: 1 mg Meclizine HCl (Antivert -) 25 mg PO TID PRN PRN Reason: VERTIGO Ondansetron HCl (Zofran Odt -) 4 mg SL Q6H PRN PRN Reason: NAUSEA AND/OR VOMITING Last Admin: 04/12/19 17:00 Dose: 4 mg Oxycodone HCl (Roxicodone -) 5 mg PO Q4H PRN PRN Reason: PAIN LEVEL 1-5 Oxycodone HCl (Roxicodone -) 10 mg PO Q4H PRN PRN Reason: PAIN LEVEL 6-10 Last Admin: 04/17/19 11:09 Dose: 10 mg Pramipexole Dihydrochloride (Mirapex -) 0.25 mg PO HS [facility] Last Admin: 04/16/19 22:19 Dose: 0.25 mg Pregabalin (Lyrica -) 150 mg PO TID [facility] Last Admin: 04/17/19 06:10 Dose: 150 mg - Objective Vital Signs: Vital Signs Temperature 98.7 F 04/17/19 10:55 Pulse Rate 98 H 04/17/19 10:55 Respiratory Rate 18 04/17/19 10:55 Blood Pressure 107/70 04/17/19 10:55 O2 Sat by Pulse Oximetry (%) 100 04/17/19 09:00 Constitutional: Yes: No Distress, Calm Eyes: Yes: Conjunctiva Clear HENT: Yes: Atraumatic Cardiovascular: Yes: Regular Rate and Rhythm Respiratory: Yes: Regular, CTA Bilaterally Gastrointestinal: Yes: Normal Bowel Sounds, Soft Musculoskeletal: Yes: Muscle Weakness Extremities: Yes: Amputation (L AKA) Edema: No Integumentary: Yes: Pressure Ulcer Wound/Incision: Yes: Dressing Dry and Intact Neurological: Yes: Alert, Oriented Psychiatric: Yes: Alert, Oriented Labs: CBC, BMP 04/17/19 07:49 04/17/19 07:49 INR, PTT INR 0.97 (0.83-1.09) 04/10/19 07:25 Microbiology 04/14/19 16:00 Stool Salmonella/Shigella Culture - Final Yeast Like Organism 04/14/19 16:00 Stool Campylobacter Culture - Final NO GROWTH OF CAMPYLOBACTER SPECIES OBTAINED 04/14/19 16:00 Stool Yersinia Culture - Final NO GROWTH OF YERSINIA SPECIES OBTAINED 04/14/19 16:00 Stool Vibrio Culture - Final NO GROWTH OF VIBRIO SPECIES OBTAINED 04/14/19 16:00 Stool Escherichia coli 0157 Culture - Final NO GROWTH OF E COLI 0157 OBTAINED 04/08/19 23:28 Blood - Peripheral Venous Blood Culture - Final NO GROWTH AFTER 5 DAYS INCUBATION 04/08/19 23:30 Blood - Peripheral Venous Blood Culture - Final NO GROWTH AFTER 5 DAYS INCUBATION 04/09/19 00:45 Wound Gram Stain - Final 04/09/19 00:45 Wound Wound Culture - Final Staphylococcus Aureus Enterococcus Faecalis Yeast Like Organism Problem List - Problems (1) Infected pressure ulcer Assessment/Plan: -Vascular Surgery on board -ID on board -Pelvic CT scan shows increasing soft tissue in the gluteal region about the distal sacrum and coccyx consistent with worsening decubitis ulcer, no definite evidence of discrete abscess or osteomyelitis -no leukocytosis -afebrile -wound culture positive -Augmentin -daily dressing change -cleanse wound with NS and apply Santyl as scheduled -pending SNF authorization by insurance--if denied will need daughter to come in and be taught wound care and dressing Code(s): L89.90 - PRESSURE ULCER OF UNSPECIFIED SITE, UNSPECIFIED STAGE; L08.9 - LOCAL INFECTION OF THE SKIN AND SUBCUTANEOUS TISSUE, UNSP Qualifiers: Pressure injury stage: unstageable Qualified Code(s): L89.95 - Pressure ulcer of unspecified site, unstageable; L08.9 - Local infection of the skin and subcutaneous tissue, unspecified (2) Acute kidney injury superimposed on chronic kidney disease Assessment/Plan: -BUN/Cr 30.5/1.4 -monitor renal function Code(s): N17.9 - ACUTE KIDNEY FAILURE, UNSPECIFIED; N18.9 - CHRONIC KIDNEY DISEASE, UNSPECIFIED (3) CAD (coronary artery disease) Assessment/Plan: -Atorvastatin Code(s): I25.10 - ATHSCL HEART DISEASE OF [place] CORONARY ARTERY W/O ANG PCTRS Qualifiers: Coronary Disease-Associated Artery/Lesion type: coronary artery bypass graft Associated angina: without angina pectoris (4) COPD (chronic obstructive pulmonary disease) Assessment/Plan: -bronchodilators -O2 via [place] prn for SOB -keep SpO2 >90% Code(s): J44.9 - CHRONIC OBSTRUCTIVE PULMONARY DISEASE, UNSPECIFIED Qualifiers: Emphysema type: unspecified (5) HLD (hyperlipidemia) Assessment/Plan: -Atorvastatin Code(s): E78.5 - HYPERLIPIDEMIA, UNSPECIFIED Qualifiers: Hyperlipidemia type: pure hypercholesterolemia Qualified Code(s): E78.00 - Pure hypercholesterolemia, unspecified; E78.0 - Pure hypercholesterolemia (6) Diabetes mellitus Assessment/Plan: -BGM ACHS -Levemir -ISS -diabetic diet Code(s): E11.9 - TYPE 2 DIABETES MELLITUS WITHOUT COMPLICATIONS Qualifiers: Diabetes mellitus type: type 2 (7) Loose stools Assessment/Plan: -Stool culture done -Stool WBC ordered -Bacid BID -afebrile, no leukocytosis Code(s): R19.5 - OTHER FECAL ABNORMALITIES Assessment/Plan see problem list dvt ppx
[2019-04-17 20:36] VITALS: BP 104/68; PULSE 79; TEMP 97.9
== END 2019-04-17 21:09 | DRG 710 ==
LOC: JER 19:38 → JERBED 04-09 01:39 → J6S 04-09 04:51
PROVIDERS: ADMIT Internal Medicine; ATTEND Family Medicine
PROC: 0KBN0ZZ Excision of Right Hip Muscle, Open Approach (ICD-10-PCS; 2019-04-10)
PROC: 0KBP0ZZ Excision of Left Hip Muscle, Open Approach (ICD-10-PCS; principal; 2019-04-10 13:30)
DX: A41.9 Sepsis, unspecified organism (principal); L89.154 Pressure ulcer of sacral region, stage 4; L89.312 Pressure ulcer of right buttock, stage 2; L89.323 Pressure ulcer of left buttock, stage 3; E11.40 Type 2 diabetes mellitus with diabetic neuropathy, unspecified; E11.22 Type 2 diabetes mellitus with diabetic chronic kidney disease; E11.42 Type 2 diabetes mellitus with diabetic polyneuropathy; D53.0 Protein deficiency anemia; L97.519 Non-pressure chronic ulcer of other part of right foot with unspecified severity; L97.419 Non-pressure chronic ulcer of right heel and midfoot with unspecified severity; Z89.612 Acquired absence of left leg above knee; N18.3 Chronic kidney disease, stage 3 (moderate); I12.9 Hypertensive chronic kidney disease with stage 1 through stage 4 chronic kidney disease, or unspecified chronic kidney disease; I25.10 Atherosclerotic heart disease of native coronary artery without angina pectoris; J44.9 Chronic obstructive pulmonary disease, unspecified; I73.9 Peripheral vascular disease, unspecified; F41.9 Anxiety disorder, unspecified; E78.5 Hyperlipidemia, unspecified; Z86.73 Personal history of transient ischemic attack (TIA), and cerebral infarction without residual deficits; I25.2 Old myocardial infarction; Z79.01 Long term (current) use of anticoagulants; Z79.4 Long term (current) use of insulin; J45.909 Unspecified asthma, uncomplicated; Z87.891 Personal history of nicotine dependence; Z89.512 Acquired absence of left leg below knee; G25.81 Restless legs syndrome; G43.909 Migraine, unspecified, not intractable, without status migrainosus; R19.5 Other fecal abnormalities; B95.2 Enterococcus as the cause of diseases classified elsewhere; B95.61 Methicillin susceptible Staphylococcus aureus infection as the cause of diseases classified elsewhere
CPT/HCPCS: 36415; 72193-TC; 80053; 82550; 82962; 83036; 83605; 84703; 85025; 85027; 85610; 85730; 87040; 87045; 87046; 87070; 87077; 87186; 87205; 88304-TC; 94640; 94760; 97116-GP; 97161-GP; 99283-25; J1644; Q0162

== ENCOUNTER 2019-07-26 21:01 | Inpatient (IN) | payer OTHER ==
[2019-07-26] MEDS ORDERED: HEPARIN NA (PORCINE) 5,000 UNITS/ML 1ML VIAL IVPUSH PRN ×2 (22:48)
[2019-07-26] MEDS ORDERED: HEPARIN - 25,000 UNIT in SODIUM CHLORIDE 495 ML IV SCH (23:00)
[2019-07-26] MEDS ORDERED: morphine CARPU-JECT 4 MG/1 ML DISP.SYRIN IVPUSH ONE (23:02)
[2019-07-26 23:32] LABS: BASO % 1.1 % (0-2.0); EOS % 3.6 % (0-4.5); HEMATOCRIT 36.8 % (32.4-45.2); HEMOGLOBIN 11.5 GM/dL (10.7-15.3); LYMPH % 21.2 % (8-40); MCH 23.1 pg (25.7-33.7); MCHC 31.4 g/dl (32.0-36.0); MEAN CELL VOLUME 73.4 fl (80-96); MEAN PLT VOLUME 9.1 fl (7.5-11.1); MONO % 4.6 % (3.8-10.2); NEUT % 69.5 % (42.8-82.8); PLATELET COUNT 351 K/MM3 (134-434); RBC 5.01 M/mm3 (3.60-5.2); RDW 19.7 % (11.6-15.6); WHITE BLOOD COUNT 13.9 K/mm3 (4.0-10.0)
[2019-07-26] MEDS ORDERED: morphine SULFATE 4 MG/ML VIAL ONE (23:35)
--- NOTE | 2019-07-26 23:43 | PDOC ---
History of Present Illness - General Stated Complaint: LEG PAIN Time Seen by Provider: 07/26/19 22:01 - History of Present Illness Initial Comments: 07/26/19 23:43 HPI: 44 y/o F with hx of CVA, PAD, CAD, ME s/p cath, COPD, Asthma, CKD, HTN, DM, L AKA (02/2018) presenting with 24 hours of RLE pain. She noted symptoms when she went to bed last night. Pain was localized to the mid white and she reported some edema and erythema at the site of pain. When she woke up this AM she felt the pain persist and spread distally. She also reports duskiness of her toes. Pain is worse with pressure or ambulation. She tried oxy 10mg at home but had no relief. She denies fever, chills, cherst pain, SOB, MORTON, n/v, dysuria, trauma , falls. PMHx: as noted above ROS: as noted SHx: Denies tobacco use; no alcohol use; no rec drugs Allergies: NKDA ROS: GENERAL/CONSTITUTIONAL: No fever or chills. No weakness. HEAD, EYES, EARS, NOSE AND THROAT: No change in vision. No ear pain or discharge. No sore throat. CARDIOVASCULAR: No chest pain or shortness of breath RESPIRATORY: No cough, wheezing, or hemoptysis. GASTROINTESTINAL: No nausea, vomiting, diarrhea or constipation. GENITOURINARY: No dysuria, frequency, or change in urination. MUSCULOSKELETAL: +leg pain. SKIN: +toe duskiness NEUROLOGIC: No headache, vertigo, loss of consciousness, or change in strength/ sensation. ENDOCRINE: No increased thirst. No abnormal weight change HEMATOLOGIC/LYMPHATIC: No anemia, easy bleeding, or history of blood clots. ALLERGIC/IMMUNOLOGIC: No hives or skin allergy. PE: GENERAL: Awake, alert, and fully oriented, no acute distress HEAD: No signs of trauma, normocephalic, atraumatic EYES: EOMI, sclera anicteric, conjunctiva clear ENT: Auricles normal inspection, hearing grossly normal, nares patent, oropharynx clear without exudates. Moist mucosa NECK: Normal ROM, no lymphadenopathy LUNGS: No increased work of breathing, symmetrical chest rise, clear to auscultation bilaterally, no wheezes, crackles or rhonchi HEART: Regular rate and rhythm, normal S1 and S2, no murmurs, no appreciable pulses in RLE, pulses 2+ in UEs ABDOMEN: Soft, nondistended, nontender, normoactive bowel sounds. No guarding, no rebound. No masses. No CVAT EXTREMITIES: left AKA; RLE with area of tenderness at the anterior midshin with coldness to palpation, coldness extends distally and is worse in her metatarsals , duskiness of all her toes, sensation decreased but intact NEUROLOGICAL: Cranial nerves II through XII grossly intact. Normal speech, no focal sensorimotor deficits SKIN: cold distal RLE Past History - Past Medical History Allergies/Adverse Reactions: Allergies Allergy/AdvReac Type Severity Reaction Status Date / Time No Known Drug Allergies Allergy Verified 07/26/19 22:30 Home Medications: Ambulatory Orders Budesonide [Pulmicort 0.25 mg Nebulizer -] 1 neb PO BID 11/21/15 Albuterol 0.083% Nebulizer Carolyn [Ventolin 0.083% Nebulizer Soln -] 1 amp NEB Q6HPO amp 12/15/15 Pregabalin [Lyrica -] 150 mg PO TID 04/15/16 Acetaminophen [Tylenol .Regular Strength -] 650 mg PO Q6H PRN #0 tablet Docusate Sodium [Colace -] 100 mg PO BID #60 11/22/16 Iron Polysaccharides [Niferex-150 -] 150 mg PO DAILY #30 11/22/16 Meclizine HCl [Antivert -] 25 mg PO TID PRN #90 tablet 11/22/16 Cyclobenzaprine HCl [Flexeril -] 1 tab PO BID PRN 06/28/18 Rivaroxaban [Xarelto] 1 tab PO DAILY 06/28/18 LORazepam [Ativan] 1 mg PO BID MDD 2 01/10/19 Atorvastatin Ca [Lipitor] 40 mg PO HS #30 tablet 01/16/19 Insulin Sliding Scale [Novolog Vial Sliding Scale -] 1 vial SQ TIDAC units 08/21 Insulin (Levemir) [Levemir Vial] 30 units SQ HS units 03/26/19 Nystatin Cream [Mycostatin Cream -] 1 applic TP BID applic 03/26/19 Polyethylene Glycol 3350 [Miralax 119 gm Btl -] 17 gm PO DAILY bottle 03/26/19 Pramipexole Dihydrochloride [Mirapex -] 0.25 mg PO HS tablet 03/26/19 Insulin (Levemir) [Levemir Vial] 30 units SQ AM units 04/16/19 Anemia: No Asthma: Yes Cancer: No Cardiac Disorders: Yes (mild heart attack, 1 stent,CAD S/P PDI 2014) CVA: Yes (01/2015) COPD: No CHF: No DVT: No (PVD left leg amputation) Dementia: No Diabetes: Yes GI Disorders: Yes (perforated bowel,divertic,GERD) Disorders: Yes (Chronic kidney disease,not on dialysis) HTN: Yes Hypercholesterolemia: Yes Liver Disease: No Psychiatric Problems: Yes (anxiety) Seizures: No Thyroid Disease: No - Surgical History Abdominal Surgery: Yes (perforated bowel,hernia repair) Appendectomy: No Cardiac Surgery: Yes (stent ,bypass) Cholecystectomy: Yes Lung Surgery: No Neurologic Surgery: No Orthopedic Surgery: No (L HIP ORIF 2016) - Reproductive History Tubal Ligation: Yes (2003) - Immunization History Immunization Up to Date: Yes - Psycho Social/Smoking Cessation Hx Smoking Status: No Smoking History: Former smoker Have you smoked in the past 12 months: No Number of Cigarettes Smoked Daily: 5 If you are a former smoker, when did you quit?: 6 years ago Information on smoking cessation initiated: No 'Breaking Loose' booklet given: 07/14/17 Hx Alcohol Use: No Drug/Substance Use Hx: No Substance Use Type: None Hx Substance Use Treatment: No *Physical Exam - Vital Signs Last Vital Signs Temp Pulse Resp BP Pulse Ox 99.0 F 115 H 19 137/87 100 07/26/19 21:10 07/26/19 21:10 07/26/19 21:10 07/26/19 21:10 07/26/19 21:10 ED Treatment Course - LABORATORY CBC & Chemistry Diagram: 07/26/19 23:20 07/26/19 23:20 - ADDITIONAL ORDERS Additional order review: Laboratory Results 07/26/19 23:20 WBC 13.9 H RBC 5.01 Hgb 11.5 Hct 36.8 D MCV 73.4 L MCH 23.1 L D MCHC 31.4 L RDW 19.7 H Plt Count 351 D MPV 9.1 D Absolute Neuts (auto) 9.7 H Neutrophils % 69.5 D Lymphocytes % 21.2 D Monocytes % 4.6 Eosinophils % 3.6 Basophils % 1.1 Nucleated RBC % 0 07/26/19 23:20 RBC 5.01 MCV 73.4 L MCHC 31.4 L RDW 19.7 H MPV 9.1 D Neutrophils % 69.5 D Lymphocytes % 21.2 D Monocytes % 4.6 Eosinophils % 3.6 Basophils % 1.1 - RADIOLOGY Radiology Studies Ordered: Category Date Time Status LOWER EXTREMITY CTA [CT] Stat CT Scan 07/26/19 22:32 Ordered Medical Decision Making - Medical Decision Making 07/27/19 00:26 44 y/o F with hx of CVA, PAD, CAD, ME s/p cath, COPD, Asthma, CKD, HTN, DM, L AKA (02/2018) presenting with 24 hours of RLE pain associated with distal duskiness and cold foot. HR 115, AF. PE notable for cold RLE distal to midshin and duskiness of metatarsals. -cbc, cmp, coags -CTA RLE -heparin drip, morphine -Vascular consult 07/27/19 01:47 will admit to med/surg under dr rivera repeat ptt at 0330 Discharge - Discharge Information Problems reviewed: Yes Clinical Impression/Diagnosis: Ischemia of right lower extremity Condition: Fair - Admission Yes - Follow up/Referral - Patient Discharge Instructions - Post Discharge Activity
[2019-07-26 23:50] LABS: INR 1.03 (0.83-1.09); PROTHROMBIN TIME (PATIENT) 12.1 SEC (9.7-13.0)
--- NOTE | 2019-07-27 00:03 | PDOC ---
Documentation entered by Kailyn De Jesus SCRIBE, acting as scribe for Marilyn Hills MD. Marilyn Hills MD: This documentation has been prepared by the scribe, Kailyn De Jesus SCRIBE, under my direction and personally reviewed by me in its entirety. I confirm that the documentation accurately reflects all work, treatment, procedures, and medical decision making performed by me. Attending Attestation - Resident Resident Name: Ciro Major - HPI HPI: 07/26/19 23:23 The patient is a 44-year-old female with a past medical history significant for DM, HLD, HTN. CVA, PAD, s/p left below the knee amputation who presents to the emergency department with right foot pain with discoloration. The patient reports shes been having right leg pain since last night, states she tried to take a step last night but fell secondary to the pain. The patient reports coldness and discoloration to the digits. The patient reports she hasnt been compliant with her blood thinner medication for the past 4 days secondary to the pain. - Physicial Exam PE: 07/26/19 23:28 GENERAL: Alert, awake and oriented x3. EXTREMITY: AKA on the left. Right: no palpable PT or DT pulses, foot and calf were cold, Toes were dusky with no capillary refill, some areas of purplish discoloration on the 5th and 3rd toes. - Medical Decision Making 07/26/19 23:42 Agree with resident exam. Pt with extensive vascular history presents with cold foot. Concern for ischemia. Case discused with patient's vascular surgeon Dr. Neil. Will start heparin drip, check CTA and admit to medicine for continued management.
[2019-07-27 00:06] LABS: ALBUMIN 2.9 g/dl (3.4-5.0); BILIRUBIN,TOTAL 0.2 mg/dL (0.2-1); BLOOD UREA NITROGEN 21.3 mg/dL (7-18); CALCIUM 8.8 mg/dL (8.5-10.1); CREATININE 1.4 mg/dL (0.55-1.3); POTASSIUM 4.1 mmol/L (3.5-5.1)
--- NOTE | 2019-07-27 01:54 | HP ---
Admitting History and Physical - Primary Care Physician PCP: Carmella Conley - Admission Chief Complaint: Right Lower Extremity Pain History of Present Illness: This is a 44 y/o woman with a past medical history of PAD, s/p left below the knee amputation, DM, HLD, HTN, CVA, PAD. Who presents to the ED with severe right lower extremity pain, discoloration and coolness x 1 day. Patient reports that she been having right leg pain since last night, states she tried to take a step last night but fell secondary to the pain. The patient reports coldness and discoloration to the digits. The patient reports that she has not been compliant with her blood thinner medication for the past 4 days secondary to the pain. She also endorses not taking her insulin as well. Patient denies fever , cough, dizziness, SOB, CP, palpitations, AP, N/V/D, dysuria. History Source: Patient Limitations to Obtaining History: No Limitations - Past Medical History [employer]: Yes: CVA (in 2015 -. holter then sg= rare APCs, TTE and TAWANNA unremarkable, describes left visual field cut), Other (neuropathy) Cardiovascular: Yes: CAD (cath in 11/12 at [facility] [place]: LCx FLY, 80% small D1 -. med managed. had subsequent stent at [facility]), HTN, Hyperlipdemia, ID (at [facility] 2014 ) Pulmonary: Yes: Asthma, COPD Gastrointestinal: Yes: GERD Hepatobiliary: Yes: Cholelithiasis (s/p GB surgery) Renal/: Yes: Renal Inusuff (diabetic nephropathy) ...LMP: 03/08/19 ...: No Heme/Onc: Yes: Other (protein S deficiency ?) Musculoskeletal: Yes: Osteoarthritis, Other (herniated disc) Endocrine: Yes: Diabetes Mellitus (for over 20 yr s-. insulin for over 10 yrs) - Past Surgical History Past Surgical History: Yes: Amputation (left AKA 02/18), Bypass (iliac, ileofemoral bypasses and subsequent stents and thrombectomies ), Cholecystectomy (laparoscopic), Colonoscopy, (x 4), Hernia Repair ( incarcerated hernia with resection of 32cm of small bowel in 04/14 with meash repair of ventrak hernia. had subsequent infected mesh removal 09/15.), Stent ( coronary, iliac and femoral stents), Tubal Ligation - Smoking History Smoking history: Former smoker Have you smoked in the past 12 months: No Aproximately how many cigarettes per day: 5 If you are a former smoker, when did you quit?: 6 years ago - Alcohol/Substance Use Hx Alcohol Use: No History of Substance Use: reports: None - Social History ADL: Family Assistance Occupation: disabled History of Recent Travel: No Home Medications - Allergies Allergies/Adverse Reactions: Allergies Allergy/AdvReac Type Severity Reaction Status Date / Time No Known Drug Allergies Allergy Verified 07/26/19 22:30 - Home Medications Home Medications: Ambulatory Orders Budesonide [Pulmicort 0.25 mg Nebulizer -] 1 neb PO BID 11/21/15 Albuterol 0.083% Nebulizer Carolyn [Ventolin 0.083% Nebulizer Soln -] 1 amp NEB Q6HPO amp 12/15/15 Pregabalin [Lyrica -] 150 mg PO TID 04/15/16 Acetaminophen [Tylenol .Regular Strength -] 650 mg PO Q6H PRN #0 tablet Docusate Sodium [Colace -] 100 mg PO BID #60 11/22/16 Iron Polysaccharides [Niferex-150 -] 150 mg PO DAILY #30 11/22/16 Meclizine HCl [Antivert -] 25 mg PO TID PRN #90 tablet 11/22/16 Cyclobenzaprine HCl [Flexeril -] 1 tab PO BID PRN 06/28/18 Rivaroxaban [Xarelto] 1 tab PO DAILY 06/28/18 LORazepam [Ativan] 1 mg PO BID MDD 2 01/10/19 Atorvastatin Ca [Lipitor] 40 mg PO HS #30 tablet 01/16/19 Insulin Sliding Scale [Novolog Vial Sliding Scale -] 1 vial SQ TIDAC units 08/21 Insulin (Levemir) [Levemir Vial] 30 units SQ HS units 03/26/19 Nystatin Cream [Mycostatin Cream -] 1 applic TP BID applic 03/26/19 Polyethylene Glycol 3350 [Miralax 119 gm Btl -] 17 gm PO DAILY bottle 03/26/19 Pramipexole Dihydrochloride [Mirapex -] 0.25 mg PO HS tablet 03/26/19 Insulin (Levemir) [Levemir Vial] 30 units SQ AM units 04/16/19 Home Medications (free text): Oxycodone 10mg po Q6h prn. Levemir 65 units SQ AM Family Medical History Family Hx Cancer: Father (Colon Ca age 85) Family Hx Diabetes: Mother ( in her 50's due to DM complications) Other Family History: Substance Abuse- Brother- , Sister in her 40's Review of Systems - Review of Systems Constitutional: reports: No Symptoms Eyes: reports: No Symptoms HENT: reports: No Symptoms Neck: reports: No Symptoms Cardiovascular: reports: No Symptoms Respiratory: reports: No Symptoms Gastrointestinal: reports: No Symptoms Genitourinary: reports: No Symptoms Breasts: reports: No Symptoms Reported Musculoskeletal: reports: Extremity Pain Integumentary: reports: Change in Color Neurological: reports: Numbness Endocrine: reports: No Symptoms Hematology/Lymphatic: reports: No Symptoms Psychiatric: reports: No Symptoms Pain Intensity: 8 Physical Examination Vital Signs: Vital Signs Temperature 99.0 F 07/26/19 21:10 Pulse Rate 107 H 07/26/19 21:50 Respiratory Rate 19 07/26/19 21:10 Blood Pressure 137/87 07/26/19 21:10 O2 Sat by Pulse Oximetry (%) 96 07/26/19 21:50 Constitutional: Yes: Moderate Distress Eyes: Yes: WNL, Conjunctiva Clear, EOM Intact, PERRL HENT: Yes: WNL, Atraumatic, Normocephalic Neck: Yes: WNL, Supple, Trachea Midline Cardiovascular: Yes: Tachycardia, S1, S2 Respiratory: Yes: CTA Bilaterally (upper lobes), Diminished (bases). No: SOB, SOB on Exertion Gastrointestinal: Yes: WNL, Normal Bowel Sounds, Soft ...Rectal Exam: Yes: Sphincter Tone Normal Renal/: Yes: WNL Breast(s): Yes: WNL Extremities: Yes: Amputation (L- AKA), Cold (RLE, R- Foot), Delayed Capillary Refill, Pallor Peripheral Pulses WNL: No Peripheral Pulses: Right Dorsalis Pedis: 0 Integumentary: Yes: Pressure Ulcer (Sacral- Unstageable) Wound/Incision: Yes: Other (Dressing with yellow drainage, malodorous) Neurological: Yes: WNL, Alert, Oriented, Cran Nerves II-XII Intact ...Motor Strength: LUE (5/5), RUE (5/5) Psychiatric: Yes: WNL, Alert, Oriented Labs: CBC, BMP 07/26/19 23:20 07/26/19 23:20 Laboratory Results - last 24 hr 07/26/19 07/26/19 07/26/19 23:20 23:20 23:20 WBC 13.9 H RBC 5.01 Hgb 11.5 Hct 36.8 D MCV 73.4 L MCH 23.1 L D MCHC 31.4 L RDW 19.7 H Plt Count 351 D MPV 9.1 D Absolute Neuts (auto) 9.7 H Neutrophils % 69.5 D Lymphocytes % 21.2 D Monocytes % 4.6 Eosinophils % 3.6 Basophils % 1.1 Nucleated RBC % 0 PT with INR INR PTT (Actin FS) 26.7 Sodium 133 L Potassium 4.1 Chloride 98 Carbon Dioxide 26 Anion Gap 9 BUN 21.3 H Creatinine 1.4 H Est GFR (CKD-EPI)AfAm 52.09 Est GFR (CKD-EPI)NonAf 44.95 POC Glucometer Random Glucose 385 H Calcium 8.8 Total Bilirubin 0.2 AST 45 H ALT 16 Alkaline Phosphatase 223 H Total Protein 8.0 Albumin 2.9 L Serum , Qual 07/26/19 07/27/19 23:20 02:57 WBC RBC Hgb Hct MCV MCH MCHC RDW Plt Count MPV Absolute Neuts (auto) Neutrophils % Lymphocytes % Monocytes % Eosinophils % Basophils % Nucleated RBC % PT with INR 12.10 INR 1.03 PTT (Actin FS) Sodium Potassium Chloride Carbon Dioxide Anion Gap BUN Creatinine Est GFR (CKD-EPI)AfAm Est GFR (CKD-EPI)NonAf POC Glucometer 243 Random Glucose Calcium Total Bilirubin AST ALT Alkaline Phosphatase Total Protein Albumin Serum , Qual Imaging - Results Chest X-ray: Pending Cat Scan: Image Reviewed EKG: Image Reviewed Problem List - Problems (1) Ischemia of right lower extremity Assessment/Plan: Appreciate Vascular consult- ED resident discussed case Started on Heparin Drip Series INR Neurovascular checks NPO Gentle IVF Monitor CBC, BMP Morphine Sulfate prn Code(s): I99.8 - OTHER DISORDER OF CIRCULATORY SYSTEM (2) Peripheral arterial disease Assessment/Plan: See above Patient is non-complaint with home meds Code(s): I73.9 - PERIPHERAL VASCULAR DISEASE, UNSPECIFIED (3) CAD (coronary artery disease) Assessment/Plan: Continue home meds EKG- reviewed SR with PVCs, septal infarct age undetermined Code(s): I25.10 - ATHSCL HEART DISEASE OF [place] CORONARY ARTERY W/O ANG PCTRS (4) COPD (chronic obstructive pulmonary disease) Assessment/Plan: stable No acute flare Chest Xray- pending Continue home meds O2 Code(s): J44.9 - CHRONIC OBSTRUCTIVE PULMONARY DISEASE, UNSPECIFIED (5) Cerebrovascular accident Assessment/Plan: Will continue to monitor and treat with interventions accordingly Fall Precautions Code(s): I63.9 - CEREBRAL INFARCTION, UNSPECIFIED (6) Chronic kidney disease (CKD) Assessment/Plan: stable, at baseline Monitor BMP Consider Nephrology consult if condition worsens Code(s): N18.9 - CHRONIC KIDNEY DISEASE, UNSPECIFIED (7) Diabetes mellitus Assessment/Plan: Sub Optimal secondary to Non-compliance BGMs Resume ISS when diet resumed Will need to verify Levemir dosage Appreciate Endocrine consult HgbA1c in am Monitor renal function Code(s): E11.9 - TYPE 2 DIABETES MELLITUS WITHOUT COMPLICATIONS (8) Leukocytosis Assessment/Plan: Likely secondary to inflammatory response vs infectious vs malignancy Patient is afebrile Will monitor CBC Code(s): D72.829 - ELEVATED WHITE BLOOD CELL COUNT, UNSPECIFIED (9) Anxiety Assessment/Plan: Supportive care Continue Ativan Code(s): F41.9 - ANXIETY DISORDER, UNSPECIFIED (10) Diabetic neuropathy, painful Assessment/Plan: Continue Lyrica Code(s): E11.40 - TYPE 2 DIABETES MELLITUS WITH DIABETIC NEUROPATHY, UNSP (11) HLD (hyperlipidemia) Assessment/Plan: Continue Lipitor Monitor LFTs Code(s): E78.5 - HYPERLIPIDEMIA, UNSPECIFIED Qualifiers: (12) GERD (gastroesophageal reflux disease) Assessment/Plan: PPI Code(s): K21.9 - GASTRO-ESOPHAGEAL REFLUX DISEASE WITHOUT ESOPHAGITIS Assessment/Plan This is a 44 y/o woman with a PMHx of CVA, PAD, CAD, ID (s/p Cath, Stent), L - Aka (02/2018), HTN, DM, COPD, Asthma, Former Smoker. Admitted to M/S for Right Lower extremity Ischemia for further evaluation of their emergent condition. Plan: See Problem List FEN NS@75ml/hr Replete lytes prn DVT ppx OOB Continue Heparin Drip Code Status: Full Code Dispo: Requires Inpatient Care Visit type - Emergency Visit Emergency Visit: Yes ED Registration Date: 07/26/19 Care time: The patient presented to the Emergency Department on the above date and was hospitalized for further evaluation of their emergent condition. - New Patient This patient is new to me today: Yes Date on this admission: 07/27/19 - Critical Care Critical Care patient: No
[2019-07-27] MEDS ORDERED: ALBUTEROL SO4 0.083% IH SOL 2.5 MG/3 ML VIAL.NEB. NEB PRN (02:12)
[2019-07-27] MEDS ORDERED: SODIUM CHLORIDE 1,000 ML IV SCH ×2 (02:15→19:32)
[2019-07-27] MEDS ORDERED: morphine SULFATE 4 MG/ML VIAL ONE (05:04)
[2019-07-27] MEDS: MORPHINE SULFATE 2 MG/ML VIAL IVPUSH PRN ×2 (05:08→11:16)
[2019-07-27 06:35] LABS: EOS % 6.2 % (0-4.5); HEMATOCRIT 32.6 % (32.4-45.2); HEMOGLOBIN 10.3 GM/dL (10.7-15.3); LYMPH % 34.1 % (8-40); MCH 22.8 pg (25.7-33.7); MCHC 31.6 g/dl (32.0-36.0); MEAN PLT VOLUME 8.8 fl (7.5-11.1); MONO % 5.7 % (3.8-10.2); PLATELET COUNT 290 K/MM3 (134-434); RBC 4.52 M/mm3 (3.60-5.2); RDW 19.8 % (11.6-15.6); WHITE BLOOD COUNT 11.1 K/mm3 (4.0-10.0)
[2019-07-27 06:57] LABS: BLOOD UREA NITROGEN 18.2 mg/dL (7-18); CALCIUM 8.2 mg/dL (8.5-10.1); POTASSIUM 3.7 mmol/L (3.5-5.1)
[2019-07-27] MEDS ORDERED: LORazepam 1 MG TABLET PO PRN ×2 (07:57→19:32)
[2019-07-27] MEDS ORDERED: BUDESONIDE 0.25 MG/2ML INH SUSP VIAL NEB SCH ×2 (08:00→20:00)
[2019-07-27] MEDS ORDERED: PREGABALIN 75 MG CAPSULE PO SCH (08:15)
[2019-07-27] MEDS ORDERED: PREGABALIN 50 MG CAPSULE ONE (08:39)
[2019-07-27] MEDS ORDERED: MORPHINE SULFATE 2 MG/ML VIAL ONE (11:15)
--- NOTE | 2019-07-27 12:42 | PN ---
Progress Note, Physician Chief Complaint: RLE Pain History of Present Illness: Previous notes and events reviewed awake and alert, anxious patient examined in PACU patient to have open femoral embolectomy and angiogram on Heparin drip - Current Medication List Current Medications: Active Medications Albuterol Sulfate (Ventolin 0.083% Nebulizer Soln -) 1 amp NEB RTID PRN PRN Reason: SHORT OF BREATH/WHEEZING Budesonide (Pulmicort 0.25 Mg Nebulizer -) 1 amp NEB RBID MICK Last Admin: 07/27/19 08:43 Dose: Not Given Heparin Sodium (Porcine) (Heparin -) 1,000 unit IVPUSH PRN PRN PRN Reason: Heparin Heparin Sodium (Porcine) (Heparin -) 5,000 unit IVPUSH PRN PRN PRN Reason: Heparin Heparin Sodium (Porcine) 25, (000 unit/ Sodium Chloride) 500 mls @ 20 mls/hr IV TITR MICK; Protocol Stop: 07/27/19 23:00 Last Titration: 07/27/19 08:34 Dose: 1,150 unit/hr, 23 mls/hr Sodium Chloride (Normal Saline -) 1,000 mls @ 75 mls/hr IV ASDIR MICK Last Admin: 07/27/19 02:26 Dose: 75 mls/hr Lorazepam (Ativan -) 1 mg PO BID PRN PRN Reason: ANXIETY Morphine Sulfate (Morphine Sulfate) 4 mg IVPUSH Q4H PRN PRN Reason: PAIN LEVEL 7 - 10 Last Admin: 07/27/19 11:16 Dose: 4 mg Pregabalin (Lyrica -) 150 mg PO TID MICK Last Admin: 07/27/19 08:43 Dose: 150 mg - Objective Vital Signs: Vital Signs Temperature 97.8 F 07/27/19 10:46 Pulse Rate 92 H 07/27/19 10:46 Respiratory Rate 17 07/27/19 10:46 Blood Pressure 118/76 07/27/19 10:46 O2 Sat by Pulse Oximetry (%) 98 07/27/19 10:46 Constitutional: Yes: No Distress, Anxious Eyes: Yes: Conjunctiva Clear HENT: Yes: Atraumatic Cardiovascular: Yes: Regular Rate and Rhythm Respiratory: Yes: Regular, CTA Bilaterally, On Nasal O2 Gastrointestinal: Yes: Normal Bowel Sounds, Soft Musculoskeletal: Yes: Muscle Weakness Extremities: Yes: Cold (RLE), Other (RLE mottled color) Peripheral Pulses: Right Dorsalis Pedis: 0 Integumentary: Yes: Other (mottled RLE) Neurological: Yes: Alert, Oriented Psychiatric: Yes: Alert, Oriented Labs: CBC, BMP 07/27/19 06:00 07/27/19 06:05 INR, PTT INR 1.03 (0.83-1.09) 07/26/19 23:20 Problem List - Problems (1) Ischemia of right lower extremity Assessment/Plan: -Vascular on board -Heparin drip -OR today for open femoral embolectomy and angiogram -Lower Extremity CTA done, results pending Code(s): I99.8 - OTHER DISORDER OF CIRCULATORY SYSTEM (2) Anemia Assessment/Plan: -Hg 10.3 -monitor Hg daily -transfuse for Hg <7.0 to avoid fluid overload -anemia profile Code(s): D64.9 - ANEMIA, UNSPECIFIED Qualifiers: Anemia type: unspecified type Qualified Code(s): D64.9 - Anemia, unspecified (3) COPD (chronic obstructive pulmonary disease) Assessment/Plan: -Pulm consult -Bronchodilators -keep SpO2 >90% -O2 via NC Code(s): J44.9 - CHRONIC OBSTRUCTIVE PULMONARY DISEASE, UNSPECIFIED (4) Chronic kidney disease (CKD) Assessment/Plan: -Renal consult -BUN/Cr 18.2/1.0 Code(s): N18.9 - CHRONIC KIDNEY DISEASE, UNSPECIFIED (5) Diabetes mellitus Assessment/Plan: -[facility] -HgA1c 9.6% -Endocrinology consult Code(s): E11.9 - TYPE 2 DIABETES MELLITUS WITHOUT COMPLICATIONS (6) GERD (gastroesophageal reflux disease) Assessment/Plan: -Pantoprazole Code(s): K21.9 - GASTRO-ESOPHAGEAL REFLUX DISEASE WITHOUT ESOPHAGITIS (7) HLD (hyperlipidemia) Assessment/Plan: -Atorvastatin Code(s): E78.5 - HYPERLIPIDEMIA, UNSPECIFIED Qualifiers: (8) Pressure ulcer of sacral region, stage 4 Assessment/Plan: -Plastic surgery consult -turn q2h -offloading Code(s): L89.154 - PRESSURE ULCER OF SACRAL REGION, STAGE 4 Assessment/Plan see problem list
--- NOTE | 2019-07-27 13:28 | CONSULT ---
Consult - text type - Consultation Consultation Note: Desire Ren has been under my care for many years with severe arterial disease of the left leg which ultimately resulted in a left AKA. She was last seen in March 2018 1 month following the AKA done at [place]. She presented to the ER yesterday with a 1 day history of pain in her right foot. I was called at 10:30 PM and instructed the ER resident to check her pulses with a doppler and get a CTA of the leg. I was never called back. There is no record of a reading in the EMR and when I called this morning to inquire about the patient no one in the ER could give me any information about the study or the patient. The CTA was done but no images were available in the PACS until I went to the CT department and inquired where the study was at 12:30 today. On exam in the ER the right calf and foot are cold and mottling of the skin of the foot is present. The CTA shows a patent right iliac stent and no flow in the proximal SFA. There is some contrast in the distal SFA but nothing seen in the calf. I will take her to the OR for an open femoral embolectomy and angiogram. It is unclear at this time if the foot is viable.
--- NOTE | 2019-07-27 13:44 | EKG ---
Test Reason : Blood Pressure : / mmHG Vent. Rate : 098 BPM Atrial Rate : 098 BPM P-R Int : 142 ms QRS Dur : 084 ms QT Int : 364 ms P-R-T Axes : 050 014 006 degrees QTc Int : 464 ms SINUS RHYTHM WITH FREQUENT PREMATURE VENTRICULAR COMPLEXES SEPTAL INFARCT , AGE UNDETERMINED ABNORMAL ECG WHEN COMPARED WITH ECG OF 20-MAR-2019 16:16, PREMATURE VENTRICULAR COMPLEXES ARE NOW PRESENT NONSPECIFIC T WAVE ABNORMALITY NOW EVIDENT IN INFERIOR LEADS NONSPECIFIC T WAVE ABNORMALITY NOW EVIDENT IN ANTERIOR LEADS NONSPECIFIC T WAVE ABNORMALITY, IMPROVED IN LATERAL LEADS Confirmed by MD Shakira, David ([id number]) on 07/27/2019 1:43:40 PM Referred By: Confirmed By:David Rosenberg MD
--- NOTE | 2019-07-27 14:13 | PN ---
Teaching Attending Note Name of Resident: Adalid Beckett ATTENDING PHYSICIAN STATEMENT I saw and evaluated the patient. I reviewed the resident's note and discussed the case with the resident. I agree with the resident's findings and plan as documented. SUBJECTIVE: Pt seen and examined preop in the PACU. Cold right foot, planned for open thrombectomy. Denies shortness of breath, cough or wheezing. Maintained at home on pulmicort. OBJECTIVE: Vital Signs Period Temp Pulse Resp BP Sys/Green Pulse Ox Last 24 Hr 97.8 F-99.0 F 88-115 14-19 118-137/76-87 95-100 Gen: NAD at rest Heart:RRR Lung: decreased breath sounds at the bases Abd: soft, nontender Ext: L AKA, cyanotic, cold right foot CBC, BMP 07/27/19 06:00 07/27/19 06:05 Active Medications Albuterol Sulfate (Ventolin 0.083% Nebulizer Soln -) 1 amp NEB RTID PRN PRN Reason: SHORT OF BREATH/WHEEZING Albuterol Sulfate (Ventolin 0.083% Nebulizer Soln -) 1 amp NEB Q6HPO MICK Atorvastatin Calcium (Lipitor -) 40 mg PO HS MICK Budesonide (Pulmicort 0.25 Mg Nebulizer -) 1 amp NEB RBID MICK Last Admin: 07/27/19 08:43 Dose: Not Given Budesonide (Pulmicort 0.25 Mg Nebulizer -) 1 amp NEB BID MICK Heparin Sodium (Porcine) (Heparin -) 1,000 unit IVPUSH PRN PRN PRN Reason: Heparin Heparin Sodium (Porcine) (Heparin -) 5,000 unit IVPUSH PRN PRN PRN Reason: Heparin Heparin Sodium (Porcine) 25, (000 unit/ Sodium Chloride) 500 mls @ 20 mls/hr IV TITR MICK; Protocol Stop: 07/27/19 23:00 Last Titration: 07/27/19 08:34 Dose: 1,150 unit/hr, 23 mls/hr Sodium Chloride (Normal Saline -) 1,000 mls @ 75 mls/hr IV ASDIR MICK Last Admin: 07/27/19 02:26 Dose: 75 mls/hr Insulin Aspart (Novolog Vial Sliding Scale -) 1 vial SQ TIDAC MICK; Protocol Lorazepam (Ativan -) 1 mg PO BID PRN PRN Reason: ANXIETY Morphine Sulfate (Morphine Sulfate) 4 mg IVPUSH Q4H PRN PRN Reason: PAIN LEVEL 7 - 10 Last Admin: 07/27/19 11:16 Dose: 4 mg Pantoprazole Sodium (Protonix -) 40 mg PO DAILY [facility] Polysaccharide Iron Complex (Niferex-150 -) 150 mg PO DAILY [facility] Pregabalin (Lyrica -) 150 mg PO TID [facility] Last Admin: 07/27/19 08:43 Dose: 150 mg ASSESSMENT AND PLAN: PAD Ischemic RLE HTN DM Hyperlipidemia h/o CVA h/o L AKA - for open thrombectomy - continue anticoagulation - inhaled bronchodilators - O2 to keep Spo2 >90% - pain control - post op ICU monitoring
[2019-07-27] MEDS ORDERED: PROMETHAZINE HCL 25 MG/1 ML VIAL IVPUSH PRN ×2 (14:40→19:32)
[2019-07-27] MEDS ORDERED: ONDANSETRON 4 MG/2 ML VIAL IVPUSH PRN ×2 (14:40→19:32)
[2019-07-27] MEDS ORDERED: LACTATED RINGERS SOLUTION 1,000 ML IV SCH (14:45)
[2019-07-27] MEDS ORDERED: HEPARIN NA (PORCINE) 5,000 UNITS/ML 1ML VIAL ONE ×2 (14:46→15:37)
[2019-07-27] MEDS ORDERED: MIDAZOLAM HCL 2 MG/2 ML SINGLE DOSE VIAL ONE (14:52)
[2019-07-27] MEDS ORDERED: ROCURONIUM BROMIDE 50 MG/5 ML SYRINGE ONE (14:52)
[2019-07-27] MEDS ORDERED: PROPOFOL 20 ML ONE (14:52)
[2019-07-27] MEDS ORDERED: LIDOCAINE HCL/PF 2% SDV 5ML VIAL ONE (14:53)
[2019-07-27] MEDS ORDERED: SODIUM CHLORIDE 0.9% P/F 10 ML VIAL IJ ONE (15:22)
[2019-07-27] MEDS ORDERED: ceFAZolin SODIUM 1 GM VIAL ONE (15:22)
[2019-07-27] MEDS ORDERED: ceFAZolin SODIUM 1 GM VIAL IVPB ONE (15:23)
[2019-07-27] MEDS ORDERED: ALTEPLASE 2 MG VIAL CVP ONE ×3 (16:00→16:33)
[2019-07-27] MEDS ORDERED: SODIUM BICARBONATE 8.4% - 50 ML ONE (16:21)
[2019-07-27] MEDS ORDERED: INSULIN SLIDING SCALE (NOVOLOG) 1 VIAL SQ SCH (16:30)
[2019-07-27] MEDS ORDERED: HEPARIN NA (PORCINE) 5,000 UNITS/ML 1ML VIAL SQ ONE (16:34)
[2019-07-27] MEDS ORDERED: ALBUTEROL SO4 0.083% IH SOL 2.5 MG/3 ML VIAL.NEB. NEB SCH (18:00)
[2019-07-27] MEDS ORDERED: KETOROLAC TROMETHAMINE 30 MG/1 ML VIAL ONE (18:22)
[2019-07-27] MEDS ORDERED: METOPROLOL TARTRATE 5 MG/5 ML VIAL ONE ×2 (18:25→18:38)
[2019-07-27] MEDS ORDERED: GLYCOPYRROLATE 0.2 MG/1 ML VIAL ONE (18:27)
[2019-07-27] MEDS ORDERED: NEOSTIGMINE METHYLSULFATE 0.5 MG/ML - 10 ML MDV ONE (18:28)
[2019-07-27] MEDS ORDERED: LIDOCAINE HCL 2% 100 MG/5 ML DISP.SYRIN ONE (18:30)
[2019-07-27] MEDS ORDERED: POVIDONE-IODINE OINTMENT 10% - 28.4 GM TUBE ONE (18:37)
--- NOTE | 2019-07-27 18:51 | OP ---
Operative Note - Note: Operative Date: 07/27/19 Pre-Operative Diagnosis: Occlusion right femoral, popliteal and tibial arteries , ischemic foot Operation: Right femoral embolectomy. Right poplteal and tibial embolectomy, patch angioplasty. Angiogram Findings: Occlusion of right femoral, popliteal and tibial arteries with acute and subacute thrombus Completion angiogram showed distal arterial flow to posterior tibial and dorsalis pedis arteries. Implants: Bovine carotid patch Post-Operative Diagnosis: Same as Pre-op Surgeon: Walter Neil Trader Fixed Income: Elvi George Anesthesiologist/DEMOLITION HAMMER OPERATOR: Rober Cassidy Anesthesia: General Specimens Removed: thrombus from femoral, popliteal and tibial arteries. Estimated Blood Loss (mls): 400
[2019-07-27] MEDS ORDERED: HEPARIN INFUSION - 25,000 UNITS/500 ML INFUS.BAG IVPB ONE (19:07)
[2019-07-27] MEDS ORDERED: ACETAMINOPHEN 1000 MG/100 ML VIAL (NON FORMULARY) IVPB ONE (19:10)
--- NOTE | 2019-07-27 19:29 | CONSULT ---
Consultation: REQUESTING PROVIDER: CONSULT REQUEST: We have been asked to medically evaluate this patient for postoperative monitoring. HISTORY OF PRESENT ILLNESS: 44 yo woman with PMHx CVA (2015), [place] (2015), PAD s/p multiple BLE revascularizations and stents, s/p LLE partial ATK amputation, CAD s/p PCI 2014 , Protein S deficiency on Xarelto, COPD, CKD, DM , Anxiety, HTN and HLD who presented to the ED with severe right lower extremity pain, discoloration and coolness x 1 day. Patient reported having right leg pain since last night, states she tried to take a step last night but fell secondary to the pain. Home 10mg Oxycodone did not provide relief. The patient reports coldness and discoloration to the digits. The patient reports that she has not been compliant with her blood thinner medication for the past 4 days secondary to the pain. She also endorses not taking her insulin as well. Patient denies fever , cough, dizziness, SOB, CP, palpitations, AP, N/V/D, dysuria. Now POD#0 after right femoral embolectomy. Right popliteal and tibial embolectomy, patch angioplasty. Angiogram. Reported to have post operative pulses in RLE Posterior tibial artery and distal anterior tibial artery (both marked in the OR), started on heparin GGT by surgery team, surgical drain reportedly in place. Patient reports feeling "alright," pain is adequately controlled at the current time, feels the sensation in her toes is increased compared with postoperatively. No CP/SOB/dizziness while in PACU. REVIEW OF SYSTEMS: Patient without focal complaints Denies fevers / chills / weakenss / pain Denies palp / CP / syncope / tightness Denies SOB / cough Denies abdominal pain / GI bleeding or dark stools Denies dysuria / pain / frequency Denies msk pain / joint pain Denies MORTON / LH / dizziness Denies numbness / tingling Denies rash / lesions / jaundice PHYSICAL EXAMINATION Vital Signs - 24 hr 07/26/19 07/26/19 07/27/19 21:10 21:50 02:04 Temperature 99.0 F Pulse Rate 115 H 107 H Pulse Rate [ 96 H Left Apical] Respiratory 19 17 Rate Blood Pressure 137/87 Blood Pressure 135/76 [Right Arm] O2 Sat by Pulse 100 96 97 Oximetry (%) 07/27/19 07/27/19 07/27/19 06:30 07:04 10:46 Temperature 97.9 F 98 F 97.8 F Pulse Rate Pulse Rate [ 90 88 92 H Left Apical] Respiratory 14 15 17 Rate Blood Pressure Blood Pressure 123/80 123/80 118/76 [Right Arm] O2 Sat by Pulse 95 95 98 Oximetry (%) GENERAL: Sedated postoperatively, in no acute distress. HEAD: Normal with no signs of trauma. EARS, NOSE, THROAT: Ears normal, nares patent, oropharynx clear without exudates. Moist mucous membranes. LUNGS: Breath sounds equal, clear to auscultation bilaterally. No wheezes, and no crackles. No accessory muscle use. HEART: Regular rate and rhythm, normal S1 and S2 without murmur, rub or gallop. ABDOMEN: Soft, nontender, not distended, no guarding, no rebound, no masses. UPPER EXTREMITIES: 2+ pulses, warm, well-perfused. No cyanosis. No clubbing. Cap refill <2 seconds. No peripheral edema. LOWER EXTREMITIES: ATK amputation on the LLE, RLE with ERIN draining sanguineous fluid, pulses marked in black, toes appear dusky extending up onto the dosrum of the foot, warm and perfused at this time. NEUROLOGICAL: Cranial nerves grossly intact. Normal symmetric sensation in UE. Able to wiggle toes and feel sensation throughout foot & toes SKIN: Warm, dry, normal turgor, no rashes or lesions noted. Laboratory Results - last 24 hr 07/26/19 07/26/19 07/26/19 23:20 23:20 23:20 WBC 13.9 H RBC 5.01 Hgb 11.5 Hct 36.8 D MCV 73.4 L MCH 23.1 L D MCHC 31.4 L RDW 19.7 H Plt Count 351 D MPV 9.1 D Absolute Neuts (auto) 9.7 H Neutrophils % 69.5 D Lymphocytes % 21.2 D Monocytes % 4.6 Eosinophils % 3.6 Basophils % 1.1 Nucleated RBC % 0 PT with INR INR PTT (Actin FS) 26.7 Sodium 133 L Potassium 4.1 Chloride 98 Carbon Dioxide 26 Anion Gap 9 BUN 21.3 H Creatinine 1.4 H Est GFR (CKD-EPI)AfAm 52.09 Est GFR (CKD-EPI)NonAf 44.95 POC Glucometer Random Glucose 385 H Hemoglobin A1c % Calcium 8.8 Total Bilirubin 0.2 AST 45 H ALT 16 Alkaline Phosphatase 223 H Total Protein 8.0 Albumin 2.9 L Serum , Qual 07/26/19 07/27/19 07/27/19 23:20 02:57 06:00 WBC 11.1 H RBC 4.52 Hgb 10.3 L Hct 32.6 MCV 72.0 L MCH 22.8 L MCHC 31.6 L RDW 19.8 H Plt Count 290 MPV 8.8 Absolute Neuts (auto) 5.9 Neutrophils % 53.0 D Lymphocytes % 34.1 D Monocytes % 5.7 Eosinophils % 6.2 H Basophils % 1.0 Nucleated RBC % 0 PT with INR 12.10 INR 1.03 PTT (Actin FS) Sodium Potassium Chloride Carbon Dioxide Anion Gap BUN Creatinine Est GFR (CKD-EPI)AfAm Est GFR (CKD-EPI)NonAf POC Glucometer 243 Random Glucose Hemoglobin A1c % Calcium Total Bilirubin AST ALT Alkaline Phosphatase Total Protein Albumin Serum , Qual 07/27/19 07/27/19 07/27/19 06:05 06:05 06:15 WBC RBC Hgb Hct MCV MCH MCHC RDW Plt Count MPV Absolute Neuts (auto) Neutrophils % Lymphocytes % Monocytes % Eosinophils % Basophils % Nucleated RBC % PT with INR INR PTT (Actin FS) 39.0 H Sodium 134 L Potassium 3.7 Chloride 110 H Carbon Dioxide 26 Anion Gap -1 L BUN 18.2 H Creatinine 1.0 Est GFR (CKD-EPI)AfAm 78.24 Est GFR (CKD-EPI)NonAf 67.51 POC Glucometer Random Glucose 214 H Hemoglobin A1c % Calcium 8.2 L Total Bilirubin AST ALT Alkaline Phosphatase Total Protein Albumin Serum , Qual Negative 07/27/19 07/27/19 12:25 12:25 WBC RBC Hgb Hct MCV MCH MCHC RDW Plt Count MPV Absolute Neuts (auto) Neutrophils % Lymphocytes % Monocytes % Eosinophils % Basophils % Nucleated RBC % PT with INR INR PTT (Actin FS) 39.8 H Sodium Potassium Chloride Carbon Dioxide Anion Gap BUN Creatinine Est GFR (CKD-EPI)AfAm Est GFR (CKD-EPI)NonAf POC Glucometer Random Glucose Hemoglobin A1c % 9.6 H Calcium Total Bilirubin AST ALT Alkaline Phosphatase Total Protein Albumin Serum , Qual Active Medications Home Medications Medication Instructions Recorded Budesonide [Pulmicort 0.25 mg 1 neb PO BID 11/21/15 Nebulizer -] Albuterol 0.083% Nebulizer Carolyn 1 amp NEB Q6HPO amp 12/15/15 [Ventolin 0.083% Nebulizer Soln -] Pregabalin [Lyrica -] 150 mg PO TID 04/15/16 Acetaminophen [Tylenol .Regular 650 mg PO Q6H PRN #0 tablet 11/22/16 Strength -] Docusate Sodium [Colace -] 100 mg PO BID #60 11/22/16 Iron Polysaccharides [Niferex-150 150 mg PO DAILY #30 11/22/16 -] Meclizine HCl [Antivert -] 25 mg PO TID PRN #90 tablet 11/22/16 Cyclobenzaprine HCl [Flexeril -] 1 tab PO BID PRN 06/28/18 Rivaroxaban [Xarelto] 1 tab PO DAILY 06/28/18 LORazepam [Ativan] 1 mg PO BID MDD 2 01/10/19 Atorvastatin Ca [Lipitor] 40 mg PO HS #30 tablet 01/16/19 Insulin Sliding Scale [Novolog 1 vial SQ TIDAC units 03/14/19 Vial Sliding Scale -] Insulin (Levemir) [Levemir Vial] 30 units SQ HS units 03/26/19 Nystatin Cream [Mycostatin Cream -] 1 applic TP BID applic 03/26/19 Polyethylene Glycol 3350 [Miralax 17 gm PO DAILY bottle 03/26/19 119 gm Btl -] Pramipexole Dihydrochloride 0.25 mg PO HS tablet 03/26/19 [Mirapex -] Insulin (Levemir) [Levemir Vial] 30 units SQ AM units 04/16/19 Active Medications Acetaminophen (Ofirmev Injection -) 1,000 mg IVPB ONCE ONE Stop: 07/27/19 19:11 Acetaminophen (Ofirmev Injection -) 1,000 mg IVPB Q6H MICK Stop: 07/29/19 14:01 Albuterol Sulfate (Ventolin 0.083% Nebulizer Soln -) 1 amp NEB Q6HPO MICK Atorvastatin Calcium (Lipitor -) 40 mg PO HS MICK Budesonide (Pulmicort 0.25 Mg Nebulizer -) 1 amp NEB RBID MICK Chlorhexidine Gluconate (Hibiclens For Decolonization -) 1 applic TP HS MICK Fentanyl (Sublimaze Injection -) 50 mcg IVPUSH [id number] PRN PRN Reason: PAIN-PACU ORDER X 4 DOSES ONLY Sodium Chloride (Normal Saline -) 1,000 mls @ 75 mls/hr IV ASDIR MICK Insulin Aspart (Novolog Vial Sliding Scale -) 1 vial SQ TIDAC MICK; Protocol Lorazepam (Ativan -) 1 mg PO BID PRN PRN Reason: ANXIETY Morphine Sulfate (Morphine Sulfate) 4 mg IVPUSH Q3H PRN PRN Reason: PAIN LEVEL 6-10 Mupirocin (Bactroban Ointment (For Decolonization) -) 1 applic NS BID MICK Stop: 08/01/19 21:59 Ondansetron HCl (Zofran Injection) 4 mg IVPUSH Q6H PRN PRN Reason: NAUSEA AND/OR VOMITING Pantoprazole Sodium (Protonix -) 40 mg PO DAILY [facility] Polysaccharide Iron Complex (Niferex-150 -) 150 mg PO DAILY [facility] Pregabalin (Lyrica -) 150 mg PO TID MICK Promethazine HCl (Phenergan Injection -) 12.5 mg IVPUSH Q6H PRN PRN Reason: NAUSEA-FOR RESCUE AFTER 15 MIN ASSESSMENT/PLAN: 44 yo woman with PMHx CVA (2014), [place] (2014), PAD s/p multiple BLE revascularizations and stents, s/p LLE partial ATK amputation, CAD s/p PCI 2014 , Protein S deficiency on Xarelto, COPD, CKD, DM , Anxiety, HTN and HLD who presented to the ED with severe right lower extremity pain, discoloration and coolness x 1 day now POD#0 after right femoral embolectomy. Right popliteal and tibial embolectomy, patch angioplasty. #CV -Maintain MAPs > 65 -Continuous monitoring -q1h pulse checks on RLE with doppler #Pulm -Monitor vitals -Continue O2 to maintain sat above 90% -Continue inhaled bronchodilators #Renal -Awaiting TOV -Muro in place #GI -Advance diet as tolerated #Heme/Onc - Patient with protein S deficiency -Continue Heparin GGT -Trend ERIN drain R calf #Neuro -q1h neuro checks -Pain control per surgery / anesthesiology #Psych -Suggest starting an SSRI #PPX -SCDs -ISS -On heparin GGT #Dispo -We will continue to follow the patient. -Thank you for this consultative opportunity. Visit type - Emergency Visit Emergency Visit: Yes ED Registration Date: 07/27/19 Care time: The patient presented to the Emergency Department on the above date and was hospitalized for further evaluation of their emergent condition. - New Patient This patient is new to me today: Yes Date on this admission: 07/28/19 - Critical Care Critical Care patient: Yes Total Critical Care Time (in minutes): 36 Critical Care Statement: The care of this patient involved high complexity decision making to prevent further life threatening deterioration of the patient 's condition and/or to evaluate & treat vital organ system(s) failure or risk of failure. ATTENDING PHYSICIAN STATEMENT I saw and evaluated the patient. I reviewed the resident's note and discussed the case with the resident. I agree with the resident's findings and plan as documented. SUBJECTIVE: OBJECTIVE: ASSESSMENT AND PLAN:
[2019-07-27] MEDS ORDERED: HEPARIN NA (PORCINE) 5,000 UNITS/ML 1ML VIAL IVPUSH PRN ×2 (19:42)
[2019-07-27] MEDS ORDERED: HEPARIN INFUSION - 25,000 UNITS/500 ML INFUS.BAG IVPB SCH (19:45)
[2019-07-27] MEDS: BUDESONIDE 0.25 MG/2ML INH SUSP VIAL NEB SCH (20:15)
[2019-07-27 20:46] LABS: BASO % 0.4 % (0-2.0); EOS % 0.3 % (0-4.5); HEMATOCRIT 31.9 % (32.4-45.2); HEMOGLOBIN 9.8 GM/dL (10.7-15.3); LYMPH % 6.6 % (8-40); MCH 22.9 pg (25.7-33.7); MCHC 30.9 g/dl (32.0-36.0); MEAN CELL VOLUME 74.3 fl (80-96); MEAN PLT VOLUME 9.2 fl (7.5-11.1); MONO % 2.4 % (3.8-10.2); NEUT % 90.3 % (42.8-82.8); PLATELET COUNT 254 K/MM3 (134-434); RBC 4.29 M/mm3 (3.60-5.2); RDW 20.3 % (11.6-15.6)
[2019-07-27 21:28] LABS: BLOOD UREA NITROGEN 14.8 mg/dL (7-18); CALCIUM 8.2 mg/dL (8.5-10.1); CREATININE 1.3 mg/dL (0.55-1.3); POTASSIUM 4.4 mmol/L (3.5-5.1)
[2019-07-27] MEDS ORDERED: ATORVASTATIN CA 40 MG TABLET (FP) PO SCH ×2 (22:00)
[2019-07-27] MEDS ORDERED: CHLORHEXIDINE GLUCONATE 4% CLEANSER FOR DECOLONIZATION TP SCH ×2 (22:00)
[2019-07-27] MEDS ORDERED: MUPIROCIN 2% TOPICAL OINTMENT FOR DECOLONIZATION NS SCH (22:00)
[2019-07-27] MEDS: morphine SULFATE 4 MG/ML VIAL IVPUSH PRN (22:09)
[2019-07-27] MEDS: PREGABALIN 50 MG CAPSULE PO SCH (22:09)
[2019-07-27] MEDS: MUPIROCIN 2% TOPICAL OINTMENT FOR DECOLONIZATION NS SCH (22:10)
[2019-07-28] MEDS ORDERED: ACETAMINOPHEN 325 MG TABLET (FP) PO SCH (02:00)
[2019-07-28] MEDS: morphine SULFATE 4 MG/ML VIAL IVPUSH PRN ×6 (03:11→22:28)
[2019-07-28] MEDS: INSULIN SLIDING SCALE (NOVOLOG) 1 VIAL SQ SCH ×2 (06:55→11:15)
[2019-07-28] MEDS: PREGABALIN 50 MG CAPSULE PO SCH ×2 (06:55→14:12)
--- NOTE | 2019-07-28 07:16 | PN ---
Physical Exam: SUBJECTIVE: Patient seen and examined. Complains of some pain in her right foot that is sharp in nature. Otherwise she is feeling better today than yesterday. Has improved sensation in her foot. Patient was seen by surgery and had dressing changed. Has dopplerable pulses up to the ankle. OBJECTIVE: Vital Signs Period Temp Pulse Resp BP Sys/Green Pulse Ox Last 24 Hr 97.8 F-98.2 F 63-92 9-18 90-165/47-91 98-100 GENERAL: The patient is awake, alert, and fully oriented, in no acute distress. HEAD: Normal with no signs of trauma. EYES: PERRL, EOMI ENT: oropharynx clear without exudates, moist mucous membranes. NECK: Trachea midline, full range of motion, supple. LUNGS: Breath sounds equal, clear to auscultation bilaterally, no wheezes, no crackles, no accessory muscle use. HEART: Regular rate and rhythm, S1, S2 without murmur, rub or gallop. ABDOMEN: Soft, nontender, nondistended, normoactive bowel sounds, no guarding, no rebound EXTREMITIES: 2+ pulses, warm, well-perfused, no edema. Left leg AKA. RLE with dopplerable pulses up to ankle. NEUROLOGICAL: Normal speech, gait not observed. Normal sensation on lateral, medial, and plantar aspects of foot. Decreased sensation over dorsum on foot. PSYCH: Normal mood, normal affect. Laboratory Results - last 24 hr 07/27/19 07/27/19 07/27/19 12:25 12:25 20:06 WBC RBC Hgb Hct MCV MCH MCHC RDW Plt Count MPV Absolute Neuts (auto) Neutrophils % Lymphocytes % Monocytes % Eosinophils % Basophils % Nucleated RBC % PTT (Actin FS) 39.8 H 69.8 H Sodium Potassium Chloride Carbon Dioxide Anion Gap BUN Creatinine Est GFR (CKD-EPI)AfAm Est GFR (CKD-EPI)NonAf POC Glucometer Random Glucose Hemoglobin A1c % 9.6 H Calcium 07/27/19 07/27/19 07/28/19 20:06 20:06 06:16 WBC 16.0 H RBC 4.29 Hgb 9.8 L Hct 31.9 L MCV 74.3 L MCH 22.9 L MCHC 30.9 L RDW 20.3 H Plt Count 254 MPV 9.2 Absolute Neuts (auto) 14.5 H Neutrophils % 90.3 H Lymphocytes % 6.6 L D Monocytes % 2.4 L Eosinophils % 0.3 D Basophils % 0.4 Nucleated RBC % 0 PTT (Actin FS) Sodium 137 Potassium 4.4 Chloride 104 Carbon Dioxide 25 Anion Gap 8 BUN 14.8 Creatinine 1.3 Est GFR (CKD-EPI)AfAm 56.97 Est GFR (CKD-EPI)NonAf 49.16 POC Glucometer 456 Random Glucose 323 H Hemoglobin A1c % Calcium 8.2 L Active Medications Generic Name Dose Route Start Last Admin Trade Name Freq PRN Reason Stop Dose Admin Acetaminophen 1,000 mg 07/29/19 02:00 Ofirmev Injection - IVPB 07/29/19 14:01 Q6H MICK Albuterol Sulfate 1 amp 07/28/19 08:00 Ventolin 0.083% Nebulizer Soln - NEB RQID [facility] Atorvastatin Calcium 40 mg 07/27/19 22:00 07/27/19 22:09 Lipitor - PO 40 mg HS MICK Administration Budesonide 1 amp 07/27/19 20:00 07/27/19 20:15 Pulmicort 0.25 Mg Nebulizer - NEB Not Given RBID [facility] Chlorhexidine Gluconate 1 applic 07/27/19 22:00 07/27/19 22:10 Hibiclens For Decolonization - TP 1 applic HS [facility] Administration Collagenase 1 applic 07/28/19 10:00 Santyl - TP DAILY [facility] Protocol Fentanyl 50 mcg 07/27/19 19:32 Sublimaze Injection - IVPUSH [id number] PRN PAIN-PACU ORDER X 4 DOSES ONLY Heparin Sodium (Porcine) 1,000 unit 07/27/19 19:42 Heparin - IVPUSH PRN PRN Heparin Heparin Sodium (Porcine) 5,000 unit 07/27/19 19:42 Heparin - IVPUSH PRN PRN Heparin Sodium Chloride 1,000 mls @ 75 mls/hr 07/27/19 19:32 07/27/19 19:42 Normal Saline - IV 50 mls ASDIR MICK Administration Heparin Sodium/Dextrose 25,000 units in 500 mls @ 10 mls/hr 07/27/19 19:45 21:39 Heparin Infusion - IVPB 500 units/hr TITR MICK 10 mls/hr Titration Protocol 500 UNITS/HR Influenza Virus Vaccine Quadrival 60 mcg 07/28/19 06:05 Flulaval Quad [id number] IM 07/28/19 06:06 .ONCE ONE Insulin Aspart 1 vial 07/28/19 07:00 07/28/19 06:55 Novolog Vial Sliding Scale - SQ 12 units TIDAC MICK Administration Protocol Lorazepam 1 mg 07/27/19 19:32 Ativan - PO BID PRN ANXIETY Morphine Sulfate 4 mg 07/27/19 19:16 07/28/19 06:15 Morphine Sulfate IVPUSH 4 mg Q3H PRN Administration PAIN LEVEL 6-10 Mupirocin 1 applic 07/27/19 22:00 07/27/19 22:10 Bactroban Ointment (For Decolonization) - NS 08/01/19 21:59 1 applic BID MICK Administration Ondansetron HCl 4 mg 07/27/19 19:32 Zofran Injection IVPUSH Q6H PRN NAUSEA AND/OR VOMITING Pantoprazole Sodium 40 mg 07/28/19 10:00 Protonix - PO DAILY MICK Polysaccharide Iron Complex 150 mg 07/28/19 10:00 Niferex-150 - PO DAILY MICK Pregabalin 150 mg 07/27/19 22:00 07/28/19 06:55 Lyrica - PO 150 mg TID MICK Administration Promethazine HCl 12.5 mg 07/27/19 19:32 Phenergan Injection - IVPUSH Q6H PRN NAUSEA-FOR RESCUE AFTER 15 MIN ASSESSMENT/PLAN: 44 y/o/f with PMHx CVA (2014), [place] (2014), PAD s/p multiple BLE revascularizations and stents, s/p LLE partial ATK amputation, CAD s/p PCI 2014 , Protein S deficiency on Xarelto, COPD, CKD, DM , Anxiety, HTN and HLD who presented to the ED with severe right lower extremity pain, discoloration and coolness x 1 day now POD#1 after right femoral embolectomy. Right popliteal and tibial embolectomy, patch angioplasty. #Neuro - q1h neuro checks - Pain control per surgery / anesthesiology #CV - Maintain MAPs > 65 - Continuous monitoring - q4h pulse checks on RLE with doppler #Pulm - Monitor vitals - Continue O2 to maintain sat above 90% - Continue inhaled bronchodilators - Encourage incentive spirometer use - CXR w/o acute pathology #Renal - Awaiting TOV - Muro in place #GI - Started on Diabetic/Sodium controlled diet #Heme/Onc - Patient with protein S deficiency - Continue Heparin GGT - Trend ERIN drain R calf #MSK - Patient has Stage 4 sacral ulcer, states she follows with Dr. Torres for wound care - Wound culture sent out, f/u results #Endo - Hx DM - BGMs - ISS #Psych - Suggest starting an SSRI #PPX - SCDs - ISS - On heparin GGT #FEN - NS @75mls/hr - Diabetic/Sodium controlled diet #Dispo - Stable for transfer to med surg Visit type - Emergency Visit Emergency Visit: Yes ED Registration Date: 07/27/19 Care time: The patient presented to the Emergency Department on the above date and was hospitalized for further evaluation of their emergent condition. - New Patient This patient is new to me today: Yes Date on this admission: 07/28/19 - Critical Care Critical Care patient: Yes Total Critical Care Time (in minutes): 36 Critical Care Statement: The care of this patient involved high complexity decision making to prevent further life threatening deterioration of the patient 's condition and/or to evaluate & treat vital organ system(s) failure or risk of failure. ATTENDING PHYSICIAN STATEMENT I saw and evaluated the patient. I reviewed the resident's note and discussed the case with the resident. I agree with the resident's findings and plan as documented. SUBJECTIVE: OBJECTIVE: ASSESSMENT AND PLAN:
[2019-07-28 07:30] LABS: HEMATOCRIT 24.7 % (32.4-45.2); HEMOGLOBIN 7.7 GM/dL (10.7-15.3); MEAN CELL VOLUME 74.4 fl (80-96); MEAN PLT VOLUME 9.7 fl (7.5-11.1); PLATELET COUNT 184 K/MM3 (134-434); RBC 3.33 M/mm3 (3.60-5.2); WHITE BLOOD COUNT 12.3 K/mm3 (4.0-10.0)
[2019-07-28 07:55] LABS: BILIRUBIN,TOTAL 0.3 mg/dL (0.2-1); BLOOD UREA NITROGEN 19.3 mg/dL (7-18); CALCIUM 7.3 mg/dL (8.5-10.1); CREATININE 1.4 mg/dL (0.55-1.3); POTASSIUM 4.6 mmol/L (3.5-5.1); TOT PROT 5.6 g/dl (6.4-8.2)
[2019-07-28] MEDS: ALBUTEROL SO4 0.083% IH SOL 2.5 MG/3 ML VIAL.NEB. NEB SCH ×4 (08:17→21:12)
[2019-07-28] MEDS: BUDESONIDE 0.25 MG/2ML INH SUSP VIAL NEB SCH (08:17)
[2019-07-28 08:18] LABS: PROTHROMBIN TIME (PATIENT) 11.8 SEC (9.7-13.0)
[2019-07-28 08:20] LABS: ACTIVATED PTT 29.9 SECONDS (25.2-36.5)
--- NOTE | 2019-07-28 08:46 | PN ---
Progress Note, Physician Chief Complaint: AWAKE ALERT SEEN IN ICU S/P RIGHT FEMORAL EMBOLECTOMY - Current Medication List Current Medications: Active Medications Acetaminophen (Ofirmev Injection -) 1,000 mg IVPB Q6H [facility] Stop: 07/29/19 14:01 Albuterol Sulfate (Ventolin 0.083% Nebulizer Soln -) 1 amp NEB RQID [facility]ICK Last Admin: 07/28/19 08:17 Dose: 1 amp Atorvastatin Calcium (Lipitor -) 40 mg PO HS [facility] Last Admin: 07/27/19 22:09 Dose: 40 mg Budesonide (Pulmicort 0.25 Mg Nebulizer -) 1 amp NEB RBID [facility] Last Admin: 07/28/19 08:17 Dose: Not Given Chlorhexidine Gluconate (Hibiclens For Decolonization -) 1 applic TP HS [facility] Last Admin: 07/27/19 22:10 Dose: 1 applic Collagenase (Santyl -) 1 applic TP DAILY [facility]; Protocol Fentanyl (Sublimaze Injection -) 50 mcg IVPUSH [id number] PRN PRN Reason: PAIN-PACU ORDER X 4 DOSES ONLY Heparin Sodium (Porcine) (Heparin -) 1,000 unit IVPUSH PRN PRN PRN Reason: Heparin Heparin Sodium (Porcine) (Heparin -) 5,000 unit IVPUSH PRN PRN PRN Reason: Heparin Sodium Chloride (Normal Saline -) 1,000 mls @ 75 mls/hr IV ASDIR [facility] Last Admin: 07/27/19 19:42 Dose: 50 mls Heparin Sodium/Dextrose (Heparin Infusion -) 25,000 units in 500 mls @ 10 mls/ hr IVPB TITR [facility]; Protocol Last Titration: 07/27/19 21:39 Dose: 500 units/hr, 10 mls/hr Influenza Virus Vaccine Quadrival (Flulaval Quad [id number]) 60 mcg IM .ONCE ONE Stop: 07/28/19 10:01 Insulin Aspart (Novolog Vial Sliding Scale -) 1 vial SQ TIDAC [facility]; Protocol Last Admin: 07/28/19 06:55 Dose: 12 units Lorazepam (Ativan -) 1 mg PO BID PRN PRN Reason: ANXIETY Morphine Sulfate (Morphine Sulfate) 4 mg IVPUSH Q3H PRN PRN Reason: PAIN LEVEL 6-10 Last Admin: 07/28/19 06:15 Dose: 4 mg Mupirocin (Bactroban Ointment (For Decolonization) -) 1 applic NS BID [facility] Stop: 08/01/19 21:59 Last Admin: 07/27/19 22:10 Dose: 1 applic Ondansetron HCl (Zofran Injection) 4 mg IVPUSH Q6H PRN PRN Reason: NAUSEA AND/OR VOMITING Pantoprazole Sodium (Protonix -) 40 mg PO DAILY [facility] Polysaccharide Iron Complex (Niferex-150 -) 150 mg PO DAILY [facility] Pregabalin (Lyrica -) 150 mg PO TID [facility] Last Admin: 07/28/19 06:55 Dose: 150 mg Promethazine HCl (Phenergan Injection -) 12.5 mg IVPUSH Q6H PRN PRN Reason: NAUSEA-FOR RESCUE AFTER 15 MIN - Objective Vital Signs: Vital Signs Temperature 98.2 F 07/28/19 02:00 Pulse Rate 73 07/28/19 06:00 Respiratory Rate 12 07/28/19 06:00 Blood Pressure 97/67 07/28/19 06:00 O2 Sat by Pulse Oximetry (%) 98 07/27/19 23:00 Constitutional: Yes: Mild Distress Cardiovascular: Yes: Regular Rate and Rhythm Respiratory: Yes: WNL Gastrointestinal: Yes: WNL Genitourinary: Yes: WNL Musculoskeletal: Yes: Other Extremities: Yes: Amputation Integumentary: Yes: Venous Stasis Changes Wound/Incision: Yes: Dressing Dry and Intact Neurological: Yes: Pre-Existing Deficit Psychiatric: Yes: WNL Labs: CBC, BMP 07/28/19 06:50 07/28/19 06:50 INR, PTT INR 1.00 (0.83-1.09) 07/28/19 06:50 Problem List - Problems (1) History of embolectomy Code(s): Z98.890 - OTHER SPECIFIED POSTPROCEDURAL STATES (2) CKD (chronic kidney disease) Code(s): N18.9 - CHRONIC KIDNEY DISEASE, UNSPECIFIED (3) Ischemia of right lower extremity Code(s): I99.8 - OTHER DISORDER OF CIRCULATORY SYSTEM (4) REBA (acute kidney injury) Code(s): N17.9 - ACUTE KIDNEY FAILURE, UNSPECIFIED (5) Abdominal pain Code(s): R10.9 - UNSPECIFIED ABDOMINAL PAIN Qualifiers: Abdominal location: generalized Qualified Code(s): R10.84 - Generalized abdominal pain (6) Occlusion of graft of lower extremity Code(s): T82.898A - OTH COMPLICATION OF VASCULAR PROSTH DEV/GRFT, INIT Qualifiers: Encounter type: sequela Qualified Code(s): T82.898S - Other specified complication of vascular prosthetic devices, implants and grafts, sequela (7) Peripheral neuropathy Code(s): G62.9 - POLYNEUROPATHY, UNSPECIFIED Qualifiers: Peripheral neuropathy type: mononeuropathy, other Qualified Code(s): G58.8 - Other specified mononeuropathies (8) Type 2 diabetes mellitus with other diabetic kidney complication Code(s): E11.29 - TYPE 2 DIABETES MELLITUS W OTH DIABETIC KIDNEY COMPLICATION (9) Type 2 diabetes mellitus with other skin ulcer Code(s): E11.622 - TYPE 2 DIABETES MELLITUS WITH OTHER SKIN ULCER; L98.499 - NON -PRESSURE CHRONIC ULCER OF SKIN OF SITES W UNSP SEVERITY (10) Type 2 diabetes mellitus with retinopathy without macular edema Code(s): E11.319 - TYPE 2 DIABETES W UNSP DIABETIC RTNOP W/O MACULAR EDEMA Qualifiers: Diabetic retinopathy severity: with mild nonproliferative retinopathy Assessment/Plan IN ICU MONITORING NO ALARMS AC IV HEPARIN MONITOR LABS/BGM CHECKS PAIN CONTROL NO PT TIL CLEARED BY VASCULAR SURGERY ADA INCENTIVE SPIROMETRY
--- NOTE | 2019-07-28 08:54 | PN ---
Progress Note (short form) - Note Progress Note: VASCULAR SURGERY - Dr. Neil POD #1 s/p Right femoral embolectomy. Right poplteal and tibial embolectomy, patch angioplasty. Angiogram Seen and examined at bedside. Alert. Doing well. States her foot feels much better and appearance gutiérrez looks much better compared to prior to surgery. On IV Hep gtt. Denies any rest pain, CP, palpitations, SOB or HOLDEN. Last Vital Signs Temp Pulse Resp BP Pulse Ox 98.2 F 73 12 97/67 98 07/28/19 02:00 07/28/19 06:00 07/28/19 06:00 07/28/19 06:00 07/27/19 23:00 CBC, BMP 07/28/19 06:50 07/28/19 06:50 INR, PTT INR 1.00 (0.83-1.09) 07/28/19 06:50 Gen: nad RLE: dressings c/d/i. manuel insitu. no hematoma. ERIN 50 mL. Compartments soft. No evidence of reperfusion edema. Dopplerable AT & PT (no DP). <Vel Knight - Last Filed: 07/28/19 09:06> - Note Progress Note: Foot warm, doppler DP and PT present. Toes less cyanotic Continue IV heparin S/C drain in AM OOB tomorrow <Walter Neil - Last Filed: 07/28/19 17:50> Problem List - Problems (1) Ischemia of right lower extremity Assessment/Plan: POD #1 Downgrade to floor INR subtherapeutic Monitor INR, PT, PTT Cont IV Hep gtt Dressing changed on rounds Doppler check q 4 hours (only has AT & PT) Above plan discussed with Dr. Neil and agrees Code(s): I99.8 - OTHER DISORDER OF CIRCULATORY SYSTEM (2) Arterial occlusion Code(s): I74.9 - EMBOLISM AND THROMBOSIS OF UNSPECIFIED ARTERY (3) Asthma Code(s): J45.909 - UNSPECIFIED ASTHMA, UNCOMPLICATED (4) CAD (coronary artery disease) Code(s): I25.10 - ATHSCL HEART DISEASE OF [place] CORONARY ARTERY W/O ANG PCTRS (5) COPD (chronic obstructive pulmonary disease) Code(s): J44.9 - CHRONIC OBSTRUCTIVE PULMONARY DISEASE, UNSPECIFIED <Cadan,Vel P - Last Filed: 07/28/19 09:06>
--- NOTE | 2019-07-28 09:26 | PN ---
Progress Note (short form) - Note Progress Note: Anesthesia Post Op Note Pt s/p GA for thrombectomy Pt awake alert NAD denies n/v, good pain control bhandari in situ pt does report some puritis she was encourage to ask for benadryl VSS no apparent anesthesia complications Abe Summers.
[2019-07-28] MEDS ORDERED: IRON POLYSACCHARIDES 150 MG CAPSULE PO SCH ×2 (10:00)
[2019-07-28] MEDS ORDERED: COLLAGENASE CLOSTRIDIUM HIST. 30 GRAMS TUBE TP SCH (10:00)
[2019-07-28] MEDS ORDERED: FLU VACCINE QUAD 60 MCG/0.5 ML (MDV 19-20) IM ONE (10:00)
[2019-07-28] MEDS ORDERED: PANTOPRAZOLE 40 MG TABLET (FP) PO SCH ×2 (10:00)
[2019-07-28] MEDS ORDERED: PT OWN MED DRAWER 7, Y5N ONE (10:02)
[2019-07-28] MEDS: MUPIROCIN 2% TOPICAL OINTMENT FOR DECOLONIZATION NS SCH (11:44)
[2019-07-28] MEDS ORDERED: MORPHINE SULFATE 2 MG/ML VIAL ONE (12:09)
--- NOTE | 2019-07-28 12:35 | PN ---
Teaching Attending Note Name of Resident: Stewart Kruse ATTENDING PHYSICIAN STATEMENT I saw and evaluated the patient. I reviewed the resident's note and discussed the case with the resident. I agree with the resident's findings and plan as documented. SUBJECTIVE: Pt seen and examined in the ICU. s/p right femoral/popliteal/tibial embolectomies, angioplasty, angiogram. OBJECTIVE: Vital Signs Period Temp Pulse Resp BP Sys/Green Pulse Ox Last 24 Hr 97.9 F-98.2 F 63-105 9-20 90-165/47-91 98-100 Intake & Output 07/25/19 07/26/19 07/27/19 07/28/19 23:59 23:59 23:59 23:59 Intake Total 1500 1050 Output Total 1375 350 Balance 125 700 Weight 69.4 kg 69.4 kg 68.175 kg Gen: NAD at rest Heart: RRR Lung: decreased breath sounds at the bases Abd: soft, nontender Ext: L AKA, Right ischemic toes CBC, BMP 07/28/19 06:50 07/28/19 06:50 Active Medications Acetaminophen (Ofirmev Injection -) 1,000 mg IVPB Q6H [facility] Stop: 07/29/19 14:01 Albuterol Sulfate (Ventolin 0.083% Nebulizer Soln -) 1 amp NEB RQID [facility] Last Admin: 07/28/19 11:20 Dose: Not Given Atorvastatin Calcium (Lipitor -) 40 mg PO HS [facility] Last Admin: 07/27/19 22:09 Dose: 40 mg Budesonide (Pulmicort 0.25 Mg Nebulizer -) 1 amp NEB RBID [facility] Last Admin: 07/28/19 08:17 Dose: Not Given Chlorhexidine Gluconate (Hibiclens For Decolonization -) 1 applic TP HS [facility] Last Admin: 07/27/19 22:10 Dose: 1 applic Collagenase (Santyl -) 1 applic TP DAILY [facility]; Protocol Last Admin: 07/28/19 10:05 Dose: 1 applic Fentanyl (Sublimaze Injection -) 50 mcg IVPUSH [id number] PRN PRN Reason: PAIN-PACU ORDER X 4 DOSES ONLY Heparin Sodium (Porcine) (Heparin -) 1,000 unit IVPUSH PRN PRN PRN Reason: Heparin Heparin Sodium (Porcine) (Heparin -) 5,000 unit IVPUSH PRN PRN PRN Reason: Heparin Last Admin: 07/28/19 12:13 Dose: 5,000 unit Sodium Chloride (Normal Saline -) 1,000 mls @ 75 mls/hr IV ASDIR [facility] Last Admin: 07/27/19 19:42 Dose: 50 mls Heparin Sodium/Dextrose (Heparin Infusion -) 25,000 units in 500 mls @ 10 mls/ hr IVPB TITR [facility]; Protocol Last Titration: 07/28/19 12:12 Dose: 650 units/hr, 13 mls/hr Insulin Aspart (Novolog Vial Sliding Scale -) 1 vial SQ TIDAC [facility]; Protocol Last Admin: 07/28/19 11:15 Dose: 4 units Lorazepam (Ativan -) 1 mg PO BID PRN PRN Reason: ANXIETY Morphine Sulfate (Morphine Sulfate) 4 mg IVPUSH Q3H PRN PRN Reason: PAIN LEVEL 6-10 Last Admin: 07/28/19 10:45 Dose: 4 mg Mupirocin (Bactroban Ointment (For Decolonization) -) 1 applic NS BID [facility] Stop: 08/01/19 21:59 Last Admin: 07/28/19 11:44 Dose: 1 applic Ondansetron HCl (Zofran Injection) 4 mg IVPUSH Q6H PRN PRN Reason: NAUSEA AND/OR VOMITING Pantoprazole Sodium (Protonix -) 40 mg PO DAILY [facility] Last Admin: 07/28/19 10:05 Dose: 40 mg Polysaccharide Iron Complex (Niferex-150 -) 150 mg PO DAILY [facility] Last Admin: 07/28/19 11:44 Dose: 150 mg Pregabalin (Lyrica -) 150 mg PO TID [facility] Last Admin: 07/28/19 06:55 Dose: 150 mg Promethazine HCl (Phenergan Injection -) 12.5 mg IVPUSH Q6H PRN PRN Reason: NAUSEA-FOR RESCUE AFTER 15 MIN ASSESSMENT AND PLAN: PAD Ischemic RLE s/p R Femoral/Tibial/Popliteal Thrombectomies HTN DM Hyperlipidemia h/o CVA h/o L AKA - continue anticoagulation - statin - antiplatelets per surgery - pulse/doppler checks - pain control - inhaled bronchodilators - O2 to keep Spo2 >90% - can monitor on floor
--- NOTE | 2019-07-28 13:12 | CONSULT ---
Consult Consult Specialty:: Nephrology Reason for Consultation:: CKD - History of Present Illness Chief Complaint: right leg pain History of Present Illness: Pt is a 44 year old female with pmhx of ckd, pad, left bka, dm, hld htn, and cva who presents to the ER with right leg pain. She was found to have a clot and was taken for angio and thrombectomy. I was called to evaluate her for elevated salt grinder. She does have history of CKD. She follows with Dr Gallegos however has not seen him in last six months. She says that the pain is improved today but still there. She denies dysuria or hematuria. - Past Medical History [facility]PRAIS[facility]: Yes: CVA (in 2014 -. holter then sg= rare APCs, TTE and TAWANNA unremarkable, describes left visual field cut), Other (neuropathy) Cardio/Vascular: Yes: CAD (cath in 11/12 at [facility]: LCx FLY, 80% small D1 -. med managed. had subsequent stent at [facility]), HTN, Hyperlipdemia, [place] (at [facility] 2014 ) Pulmonary: Yes: Asthma, COPD Gastrointestinal: Yes: GERD Hepatobiliary: Yes: Cholelithiasis (s/p GB surgery) Renal/: Yes: Renal Inusuff (diabetic nephropathy) ...LMP: 03/08/19 ...: No Musculoskeletal: Yes: Osteoarthritis, Other (herniated disc) Endocrine: Yes: Diabetes Mellitus (for over 20 yr s-. insulin for over 10 yrs) - Past Surgical History Past Surgical History: Yes: Amputation (left AKA 02/18), Bypass (iliac, ileofemoral bypasses and subsequent stents and thrombectomies ), Cholecystectomy (laparoscopic), Colonoscopy, (x 4), Hernia Repair ( incarcerated hernia with resection of 32cm of small [facility]. had subsequent infected mesh removal 09/15.), Stent ( coronary, iliac and femoral stents), Tubal Ligation - Alcohol/Substance Use Hx Alcohol Use: No History of Substance Use: reports: None - Smoking History Smoking history: Former smoker Have you smoked in the past 12 months: No Aproximately how many cigarettes per day: 5 If you are a former smoker, when did you quit?: 6 years ago - Social History Usual Living Arrangement: With Child (lives iwth 5 adult children in house with ramp to enter and 1st floor set-up) ADL: Family Assistance Occupation: disabled History of Recent Travel: No Home Medications - Allergies Allergies/Adverse Reactions: Allergies Allergy/AdvReac Type Severity Reaction Status Date / Time No Known Drug Allergies Allergy Verified 07/26/19 22:30 - Home Medications Home Medications: Ambulatory Orders Budesonide [Pulmicort 0.25 mg Nebulizer -] 1 neb PO BID 11/21/15 Albuterol 0.083% Nebulizer Carolyn [Ventolin 0.083% Nebulizer Soln -] 1 amp NEB Q6HPO amp 12/15/15 Pregabalin [Lyrica -] 150 mg PO TID 04/15/16 Acetaminophen [Tylenol .Regular Strength -] 650 mg PO Q6H PRN #0 tablet Docusate Sodium [Colace -] 100 mg PO BID #60 11/22/16 Iron Polysaccharides [Niferex-150 -] 150 mg PO DAILY #30 11/22/16 Meclizine HCl [Antivert -] 25 mg PO TID PRN #90 tablet 11/22/16 Cyclobenzaprine HCl [Flexeril -] 1 tab PO BID PRN 06/28/18 Rivaroxaban [Xarelto] 1 tab PO DAILY 06/28/18 LORazepam [Ativan] 1 mg PO BID MDD 2 01/10/19 Atorvastatin Ca [Lipitor] 40 mg PO HS #30 tablet 01/16/19 Insulin Sliding Scale [Novolog Vial Sliding Scale -] 1 vial SQ TIDAC units 08/21 Insulin (Levemir) [Levemir Vial] 30 units SQ HS units 03/26/19 Nystatin Cream [Mycostatin Cream -] 1 applic TP BID applic 03/26/19 Polyethylene Glycol 3350 [Miralax 119 gm Btl -] 17 gm PO DAILY bottle 03/26/19 Pramipexole Dihydrochloride [Mirapex -] 0.25 mg PO HS tablet 03/26/19 Insulin (Levemir) [Levemir Vial] 30 units SQ AM units 04/16/19 Family Medical History Family History: Denies Review of Systems - Review of Systems Constitutional: reports: Malaise Eyes: reports: No Symptoms HENT: reports: No Symptoms Neck: reports: No Symptoms Cardiovascular: reports: No Symptoms Respiratory: reports: No Symptoms Gastrointestinal: reports: No Symptoms Genitourinary: reports: No Symptoms Musculoskeletal: reports: Extremity Pain Integumentary: reports: No Symptoms Endocrine: reports: No Symptoms Hematology/Lymphatic: reports: No Symptoms Psychiatric: reports: No Symptoms Physical Exam Vital Signs: Vital Signs Temperature 98.2 F 07/28/19 02:00 Pulse Rate 105 H 07/28/19 10:00 Respiratory Rate 20 07/28/19 10:00 Blood Pressure 99/63 07/28/19 10:00 O2 Sat by Pulse Oximetry (%) 98 07/28/19 09:00 Constitutional: Yes: Calm Eyes: Yes: Conjunctiva Clear HENT: Yes: Atraumatic Neck: Yes: Supple Cardiovascular: Yes: S1, S2 Respiratory: Yes: CTA Bilaterally Gastrointestinal: Yes: Soft Extremities: Yes: Other (left bka, right leg pain) Neurological: Yes: Oriented Psychiatric: Yes: Oriented Labs: CBC, BMP 07/28/19 06:50 07/28/19 06:50 Laboratory Tests 04/17/19 07/26/19 07/27/19 07:49 23:20 06:00 WBC RBC Hgb 10.3 L Creatinine 1.4 H 1.4 H 07/27/19 07/27/19 07/27/19 06:05 20:06 20:06 WBC RBC Hgb 9.8 L Creatinine 1.0 1.3 07/28/19 07/28/19 06:50 06:50 WBC 12.3 H RBC 3.33 L Hgb Creatinine 1.4 H Imaging - Results Chest X-ray: Report Reviewed Problem List - Problems (1) CKD (chronic kidney disease) Code(s): N18.9 - CHRONIC KIDNEY DISEASE, UNSPECIFIED (2) Ischemia of right lower extremity Code(s): I99.8 - OTHER DISORDER OF CIRCULATORY SYSTEM Assessment/Plan Current Medications Generic Name Dose Route Start Last Admin Trade Name Freq PRN Reason Stop Dose Admin Acetaminophen 1,000 mg 07/29/19 02:00 Ofirmev Injection - IVPB 07/29/19 14:01 Q6H MICK Albuterol Sulfate 1 amp 07/28/19 08:00 07/28/19 11:20 Ventolin 0.083% Nebulizer Soln - NEB Not Given RQID MICK Atorvastatin Calcium 40 mg 07/27/19 22:00 07/27/19 22:09 Lipitor - PO 40 mg HS MICK Administration Budesonide 1 amp 07/27/19 20:00 07/28/19 08:17 Pulmicort 0.25 Mg Nebulizer - NEB Not Given RBID MICK Chlorhexidine Gluconate 1 applic 07/27/19 22:00 07/27/19 22:10 Hibiclens For Decolonization - TP 1 applic HS MICK Administration Collagenase 1 applic 07/28/19 10:00 07/28/19 10:05 Santyl - TP 1 applic DAILY [facility]ICK Administration Protocol Fentanyl 50 mcg 07/27/19 19:32 Sublimaze Injection - IVPUSH [id number] PRN PAIN-PACU ORDER X 4 DOSES ONLY Heparin Sodium (Porcine) 1,000 unit 07/27/19 19:42 Heparin - IVPUSH PRN PRN Heparin Heparin Sodium (Porcine) 5,000 unit 07/27/19 19:42 07/28/19 12:13 Heparin - IVPUSH 5,000 unit PRN PRN Administration Heparin Sodium Chloride 1,000 mls @ 75 mls/hr 07/27/19 19:32 07/27/19 19:42 Normal Saline - IV 50 mls ASDIR MICK Administration Heparin Sodium/Dextrose 25,000 units in 500 mls @ 10 mls/hr 07/27/19 19:45 12:12 Heparin Infusion - IVPB 650 units/hr TITR MICK 13 mls/hr Titration Protocol 500 UNITS/HR Insulin Aspart 1 vial 07/28/19 07:00 07/28/19 11:15 Novolog Vial Sliding Scale - SQ 4 units TIDAC [facility]ICK Administration Protocol Lorazepam 1 mg 07/27/19 19:32 Ativan - PO BID PRN ANXIETY Morphine Sulfate 4 mg 07/27/19 19:16 07/28/19 10:45 Morphine Sulfate IVPUSH 4 mg Q3H PRN Administration PAIN LEVEL 6-10 Morphine Sulfate 2 mg 07/28/19 13:15 Morphine Sulfate IVPUSH 07/28/19 13:16 ONCE ONE Mupirocin 1 applic 07/27/19 22:00 07/28/19 11:44 Bactroban Ointment (For Decolonization) - NS 08/01/19 21:59 1 applic BID MICK Administration Ondansetron HCl 4 mg 07/27/19 19:32 Zofran Injection IVPUSH Q6H PRN NAUSEA AND/OR VOMITING Pantoprazole Sodium 40 mg 07/28/19 10:00 07/28/19 10:05 Protonix - PO 40 mg DAILY MICK Administration Polysaccharide Iron Complex 150 mg 07/28/19 10:00 07/28/19 11:44 Niferex-150 - PO 150 mg DAILY [facility]ICK Administration Pregabalin 150 mg 07/27/19 22:00 07/28/19 06:55 Lyrica - PO 150 mg TID MICK Administration Promethazine HCl 12.5 mg 07/27/19 19:32 Phenergan Injection - IVPUSH Q6H PRN NAUSEA-FOR RESCUE AFTER 15 MIN Impression 1. right leg ischemia 2. CKD 3. PVD 4. DM 5. protein s def 6. cad Plan - cont to monitor renal function - repeat salt grinder in am - avoid nsaids - cont fluids for now - will need tighter glucose control - avoid nsaids - avoid nephrotoxins
[2019-07-28] MEDS ORDERED: MORPHINE SULFATE 2 MG/ML VIAL IVPUSH ONE (13:15)
[2019-07-28] MEDS ORDERED: HEPARIN NA (PORCINE) 5,000 UNITS/ML 1ML VIAL IVPUSH PRN ×7 (15:32→22:53)
[2019-07-28] MEDS ORDERED: PROMETHAZINE HCL 25 MG/1 ML VIAL IVPUSH PRN ×2 (15:32→22:53)
[2019-07-28] MEDS ORDERED: HEPARIN INFUSION - 25,000 UNITS/500 ML INFUS.BAG IVPB SCH ×2 (15:32→22:53)
[2019-07-28] MEDS ORDERED: ONDANSETRON 4 MG/2 ML VIAL IVPUSH PRN ×2 (15:32→22:53)
[2019-07-28] MEDS ORDERED: SODIUM CHLORIDE 1,000 ML IV SCH ×2 (15:32→22:53)
[2019-07-28] MEDS ORDERED: LORazepam 1 MG TABLET PO PRN ×2 (15:32→22:53)
[2019-07-28] MEDS ORDERED: INSULIN SLIDING SCALE (NOVOLOG) 1 VIAL SQ SCH ×2 (16:30→23:47)
--- NOTE | 2019-07-28 16:52 | CONS ---
DATE OF CONSULTATION: DATE OF DICTATION: 07/28/2019 REQUESTING PHYSICIAN: Carmella Conley MD REASON FOR CONSULTATION: Grade 4 sacral decubiti. This is a 44-year-old female, past history diabetes mellitus, hypertension, CVA, left [id number] amputation, chronic kidney disease, PAD, vascular disease, seen in the emergency room with right leg pain, admitted for clots, underwent angioplasty and thrombectomy. Has grade 4 sacral decubiti for the last 3 years. Has been under the care of Dr. Torres. Has had VAC therapy which was unsuccessful due to social issues at home. Renal insufficiency; a history of cholelithiasis, status post gallbladder surgery; gastrointestinal problems with GERD; history of asthma and COPD; vascular disease; catheterization on November 12. She has had stents managed at [facility]. Hypertension, hyperlipidemia, [place]. Osteoarthritis with herniated disk, diabetes mellitus for over 20 years on insulin. PAST SURGICAL HISTORY: Iliofemoral bypasses with stents and thrombectomies; left AKA in February 2018; cholecystectomy; colonoscopy; x4; hernia repair, incarcerated with resection of 32 cm of small bowel in April 2012, treated with a mesh repair. Mesh got infected and had to be removed on September 15, 2018. Tubal ligation. ALCOHOL AND SUBSTANCES USED: None. SMOKING HISTORY: Former smoker, approximately 5 cigarettes a day. She quit 6 years ago. SOCIAL HISTORY: Has ADLs with family assistance. She is disabled. Lives at home with 5 children with a ramp. ALLERGIES/ADVERSE REACTIONS: None. MEDICATIONS: All noted. FAMILY HISTORY: Denies any family history. Focused examination of sacral decubitus. VITAL SIGNS: Blood pressure 99/59, respirations 20, pulse rate 61. MICROBIOLOGY: None; cultures taken today. LABORATORY: White count 12.3, hemoglobin 7.7, hematocrit 24.7. All of the numbers are low, MCHC, MCH, MCV. Her chemistry shows total protein of 5.6 and albumin of 2.0. Alkaline phosphatase of 186. Random glucose 415. Hemoglobin A1c 9.8. BUN 19.3, creatinine 1.4. Considering her diabetes, increased alkaline phosphatase, low protein, especially albumin, patient requires the followin. Nutritional support. 2. Pressure relief done side to side. 3. Wound culture (taken). 4. Application of VAC therapy. In my impression, until her general medical condition is improved, there will be difficult and delayed healing on the wound. If the VAC therapy is not able to maintain negative pressure, she will be placed onto regular wound care with minimal chances at this stage of healing until her general condition improves including her blood glucose, hemoglobin. In case her condition requires further consultation, please do not hesitate to ask. SAVAGE LEE M.D. [id number]
--- NOTE | 2019-07-28 17:42 | SURG ---
Surgery Cook Barbecue Note Cook Barbecue: Elvi George PA-C Date of Service: 07/27/19 Diagnosis: Occlusion right femoral, popliteal and tibial arteries, ischemic foot Procedure: Right femoral embolectomy. Right poplteal and tibial embolectomy, patch angioplasty. Angiogram I was present for the entirety of the operative procedure. For further detail, please refer to operative report. Visit type - Case Type Case Type: ED Admission - Emergency Emergency Visit: Yes ED Registration Date: 07/27/19 Care time: The patient presented to the Emergency Department on the above date and was hospitalized for further evaluation of their emergent condition. - New patient This patient is new to me today: Yes Date on this admission: 07/27/19
[2019-07-28] MEDS ORDERED: BUDESONIDE 0.25 MG/2ML INH SUSP VIAL NEB SCH (20:00)
[2019-07-28] MEDS ORDERED: PREGABALIN 50 MG CAPSULE PO SCH (22:00)
[2019-07-28] MEDS ORDERED: ATORVASTATIN CA 40 MG TABLET (FP) PO SCH (22:00)
--- NOTE | 2019-07-28 23:40 | CONSULT ---
Consult Consult Specialty:: Endocrine Referred by:: cathy davis Reason for Consultation:: dmt2 - History of Present Illness Chief Complaint: high sugars History of Present Illness: 44 y/o woman with a past medical history of DMT2,PAD, s/p left below the knee amputation, HLD, HTN, CVA. Who presented with severe right lower extremity pain , discoloration The patient reports that she has not been compliant with her blood thinner medication for the past 4 days secondary to the pain.she admitts not taking diabetic medication or keeping up with checking blood sugars. She denies fever, cough, dizziness, SOB, CP, palpitations. 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 holter then sg= rare APCs, TTE and TAWANNA unremarkable, describes left visual field cut), Other (neuropathy) Cardio/Vascular: Yes: CAD (cath in 11/12 at [facility] [place]: LCx FLY, 80% small D1 -. med managed. had subsequent stent at [facility]), HTN, Hyperlipdemia, OR (at [facility] 2014 ) Pulmonary: Yes: Asthma, COPD Gastrointestinal: Yes: GERD Hepatobiliary: Yes: Cholelithiasis (s/p GB surgery) Renal/: Yes: Renal Inusuff (diabetic nephropathy) ...LMP: 03/08/19 ...: No Musculoskeletal: Yes: Osteoarthritis, Other (herniated disc) Endocrine: Yes: Diabetes Mellitus (for over 20 yr s-. insulin for over 10 yrs) - Past Surgical History Past Surgical History: Yes: Amputation (left AKA 02/18), Bypass (iliac, ileofemoral bypasses and subsequent stents and thrombectomies ), Cholecystectomy (laparoscopic), Colonoscopy, (x 4), Hernia Repair ( incarcerated hernia with resection of 32cm of small bowel in 04/14 with [facility] repair of ventrak hernia. had subsequent infected mesh removal 09/15.), Stent ( coronary, iliac and femoral stents), Tubal Ligation - Alcohol/Substance Use Hx Alcohol Use: No History of Substance Use: reports: None - Smoking History Smoking history: Former smoker Have you smoked in the past 12 months: No Aproximately how many cigarettes per day: 5 If you are a former smoker, when did you quit?: 6 years ago - Social History Usual Living Arrangement: With Child (lives iwth 5 adult children in house with ramp to enter and 1st floor set-up) ADL: Family Assistance Occupation: disabled History of Recent Travel: No Home Medications - Allergies Allergies/Adverse Reactions: Allergies Allergy/AdvReac Type Severity Reaction Status Date / Time No Known Drug Allergies Allergy Verified 07/26/19 22:30 - Home Medications Home Medications: Ambulatory Orders Budesonide [Pulmicort 0.25 mg Nebulizer -] 1 neb PO BID 11/21/15 Albuterol 0.083% Nebulizer Carolyn [Ventolin 0.083% Nebulizer Soln -] 1 amp NEB Q6HPO amp 12/15/15 Pregabalin [Lyrica -] 150 mg PO TID 04/15/16 Acetaminophen [Tylenol .Regular Strength -] 650 mg PO Q6H PRN #0 tablet Docusate Sodium [Colace -] 100 mg PO BID #60 11/22/16 Iron Polysaccharides [Niferex-150 -] 150 mg PO DAILY #30 11/22/16 Meclizine HCl [Antivert -] 25 mg PO TID PRN #90 tablet 11/22/16 Cyclobenzaprine HCl [Flexeril -] 1 tab PO BID PRN 06/28/18 Rivaroxaban [Xarelto] 1 tab PO DAILY 06/28/18 LORazepam [Ativan] 1 mg PO BID MDD 2 01/10/19 Atorvastatin Ca [Lipitor] 40 mg PO HS #30 tablet 01/16/19 Insulin Sliding Scale [Novolog Vial Sliding Scale -] 1 vial SQ TIDAC units 08/21 Insulin (Levemir) [Levemir Vial] 30 units SQ HS units 03/26/19 Nystatin Cream [Mycostatin Cream -] 1 applic TP BID applic 03/26/19 Polyethylene Glycol 3350 [Miralax 119 gm Btl -] 17 gm PO DAILY bottle 03/26/19 Pramipexole Dihydrochloride [Mirapex -] 0.25 mg PO HS tablet 03/26/19 Insulin (Levemir) [Levemir Vial] 30 units SQ AM units 04/16/19 Review of Systems - Review of Systems Constitutional: reports: Lethargy, Weakness Eyes: reports: Blurred Vision HENT: reports: No Symptoms Neck: reports: No Symptoms Cardiovascular: reports: Shortness of Breath Respiratory: reports: Exercise Intolerance, SOB on Exertion Gastrointestinal: reports: Bloating, Constipation Genitourinary: reports: Dysuria, Frequency Breasts: reports: No Symptoms Reported Musculoskeletal: reports: Extremity Pain, Joint Swelling, Muscle Pain, Muscle Cramps Integumentary: reports: Change in Color, Pruritis Neurological: reports: Numbness, Weakness Endocrine: reports: Unexplained Weight Loss Physical Exam Vital Signs: Vital Signs Temperature 98.2 F 07/28/19 02:00 Pulse Rate 92 H 07/28/19 18:00 Respiratory Rate 18 07/28/19 18:00 Blood Pressure 112/63 07/28/19 18:00 O2 Sat by Pulse Oximetry (%) 98 07/28/19 12:00 Constitutional: Yes: Anxious Eyes: Yes: EOM Intact HENT: Yes: Normocephalic Neck: Yes: Trachea Midline Cardiovascular: Yes: Tachycardia, Murmur Respiratory: Yes: Tachypnea Gastrointestinal: Yes: Normal Bowel Sounds ...Rectal Exam: Yes: Deferred Musculoskeletal: Yes: Muscle Pain, Muscle Weakness Extremities: Yes: Cool, Delayed Capillary Refill, Erythema Edema: RLE: 1+ Peripheral Pulses WNL: No Integumentary: Yes: Onychomycosis, Venous Stasis Changes Wound/Incision: Yes: Dressing Dry and Intact Neurological: Yes: Alert, Oriented, Loss of Sensation, Numbness Labs: CBC, BMP 07/28/19 06:50 07/28/19 06:50 Problem List - Problems (1) Type 2 diabetes mellitus with diabetic neuropathic arthropathy Problems reviewed: Yes Code(s): E11.610 - TYPE 2 DIABETES MELLITUS W DIABETIC NEUROPATHIC ARTHROPATHY (2) CKD (chronic kidney disease) Problems reviewed: Yes Code(s): N18.9 - CHRONIC KIDNEY DISEASE, UNSPECIFIED (3) History of embolectomy Problems reviewed: Yes Code(s): Z98.890 - OTHER SPECIFIED POSTPROCEDURAL STATES (4) Ischemia of right lower extremity Problems reviewed: Yes Code(s): I99.8 - OTHER DISORDER OF CIRCULATORY SYSTEM (5) REBA (acute kidney injury) Problems reviewed: Yes Code(s): N17.9 - ACUTE KIDNEY FAILURE, UNSPECIFIED (6) Accidental drug ingestion Problems reviewed: Yes Code(s): T50.901A - POISONING BY UNSP DRUG/MEDS/BIOL SUBST, ACCIDENTAL, INIT Qualifiers: Encounter type: subsequent encounter Qualified Code(s): T50.901D - Poisoning by unspecified drugs, medicaments and biological substances, accidental (unintentional), subsequent encounter (7) Acute hypoxemic respiratory failure Problems reviewed: Yes Code(s): J96.01 - ACUTE RESPIRATORY FAILURE WITH HYPOXIA (8) Acute kidney injury superimposed on chronic kidney disease Problems reviewed: Yes Code(s): N17.9 - ACUTE KIDNEY FAILURE, UNSPECIFIED; N18.9 - CHRONIC KIDNEY DISEASE, UNSPECIFIED (9) Controlled type 2 diabetes mellitus with diabetic peripheral angiopathy without gangrene, with long-term current use of insulin Problems reviewed: Yes Code(s): E11.51 - TYPE 2 DIABETES W DIABETIC PERIPHERAL ANGIOPATH W/O GANGRENE; Z79.4 - [facility] (CURRENT) USE OF INSULIN Assessment/Plan Current Active Problems CKD (chronic kidney disease) (Acute) History of embolectomy (Acute) Ischemia of right lower extremity (Acute dm t2,pad angiopathy dm t2 neuropathy Abnormal Lab Results 07/28/19 07/28/19 07/28/19 06:50 06:50 06:50 WBC 12.3 H RBC 3.33 L Hgb 7.7 L Hct 24.7 L D MCV 74.4 L MCH 23.0 L MCHC 31.0 L RDW 20.0 H PTT (Actin FS) Anion Gap 3 L BUN 19.3 H Creatinine 1.4 H Random Glucose 415 H* Hemoglobin A1c % 9.8 H Calcium 7.3 L AST 45 H Alkaline Phosphatase 186 H Total Protein 5.6 L Albumin 2.0 L 07/28/19 17:00 WBC RBC Hgb Hct MCV MCH MCHC RDW PTT (Actin FS) 41.8 H Anion Gap BUN Creatinine Random Glucose Hemoglobin A1c % Calcium AST Alkaline Phosphatase Total Protein Albumin Laboratory Results - last 24 hr 07/28/19 07/28/19 07/28/19 06:16 06:50 06:50 WBC 12.3 H RBC 3.33 L Hgb 7.7 L Hct 24.7 L D MCV 74.4 L MCH 23.0 L MCHC 31.0 L RDW 20.0 H Plt Count 184 D MPV 9.7 PT with INR INR PTT (Actin FS) Sodium 136 Potassium 4.6 Chloride 104 Carbon Dioxide 29 Anion Gap 3 L BUN 19.3 H Creatinine 1.4 H Est GFR (CKD-EPI)AfAm 52.09 Est GFR (CKD-EPI)NonAf 44.95 POC Glucometer 456 Random Glucose 415 H* Hemoglobin A1c % Calcium 7.3 L Total Bilirubin 0.3 AST 45 H ALT 18 Alkaline Phosphatase 186 H Total Protein 5.6 L Albumin 2.0 L 07/28/19 07/28/19 07/28/19 06:50 06:50 11:14 WBC RBC Hgb Hct MCV MCH MCHC RDW Plt Count MPV PT with INR 11.80 INR 1.00 PTT (Actin FS) 29.9 Sodium Potassium Chloride Carbon Dioxide Anion Gap BUN Creatinine Est GFR (CKD-EPI)AfAm Est GFR (CKD-EPI)NonAf POC Glucometer 300 Random Glucose Hemoglobin A1c % 9.8 H Calcium Total Bilirubin AST ALT Alkaline Phosphatase Total Protein Albumin 07/28/19 07/28/19 07/28/19 17:00 17:29 22:36 WBC RBC Hgb Hct MCV MCH MCHC RDW Plt Count MPV PT with INR INR PTT (Actin FS) 41.8 H Sodium Potassium Chloride Carbon Dioxide Anion Gap BUN Creatinine Est GFR (CKD-EPI)AfAm Est GFR (CKD-EPI)NonAf POC Glucometer 204 332 Random Glucose Hemoglobin A1c % Calcium Total Bilirubin AST ALT Alkaline Phosphatase Total Protein Albumin plan: bgm qidrsnovolog scale levemir 35 unit am levemir 12 units hs
[2019-07-28] MEDS ORDERED: INSULIN (LEVEMIR) 100 UNITS/ML UNITS SQ SCH (23:45)
[2019-07-29] MEDS ORDERED: ACETAMINOPHEN 1000 MG/100 ML VIAL (NON FORMULARY) IVPB SCH ×2 (02:00)
[2019-07-29] MEDS: ACETAMINOPHEN 1000 MG/100 ML VIAL (NON FORMULARY) IVPB SCH ×2 (02:17→11:17)
[2019-07-29] MEDS: HEPARIN NA (PORCINE) 5,000 UNITS/ML 1ML VIAL IVPUSH PRN ×2 (02:23→11:36)
[2019-07-29] MEDS: morphine SULFATE 4 MG/ML VIAL IVPUSH PRN ×5 (02:51→21:09)
[2019-07-29] MEDS: INSULIN SLIDING SCALE (NOVOLOG) 1 VIAL SQ SCH ×4 (06:47→22:23)
[2019-07-29] MEDS: PREGABALIN 50 MG CAPSULE PO SCH ×3 (06:48→22:21)
[2019-07-29] MEDS ORDERED: INSULIN (LEVEMIR) 100 UNITS/ML UNITS SQ SCH ×5 (07:00→22:00)
[2019-07-29] MEDS ORDERED: INSULIN SLIDING SCALE (NOVOLOG) 1 VIAL SQ SCH (07:00)
[2019-07-29] MEDS: BUDESONIDE 0.25 MG/2ML INH SUSP VIAL NEB SCH ×2 (08:00→20:40)
[2019-07-29] MEDS: ALBUTEROL SO4 0.083% IH SOL 2.5 MG/3 ML VIAL.NEB. NEB SCH ×4 (08:00→20:50)
[2019-07-29 08:36] LABS: HEMATOCRIT 24.6 % (32.4-45.2); HEMOGLOBIN 7.7 GM/dL (10.7-15.3); MCH 22.8 pg (25.7-33.7); MCHC 31.1 g/dl (32.0-36.0); MEAN CELL VOLUME 73.2 fl (80-96); MEAN PLT VOLUME 9.6 fl (7.5-11.1); PLATELET COUNT 190 K/MM3 (134-434); RBC 3.36 M/mm3 (3.60-5.2); RDW 20.2 % (11.6-15.6); WHITE BLOOD COUNT 9.4 K/mm3 (4.0-10.0)
[2019-07-29 09:55] LABS: ALBUMIN 1.9 g/dl (3.4-5.0); ALK PHOS 153 U/L (45-117); ANION GAP 3 MMOL/L (8-16); BILIRUBIN,TOTAL < 0.1 mg/dL (0.2-1); BLOOD UREA NITROGEN 11.2 mg/dL (7-18); CALCIUM 7.5 mg/dL (8.5-10.1); CHLORIDE 111 mmol/L (98-107); CO2 28 mmol/L (21-32); CREATININE 1.1 mg/dL (0.55-1.3); GLUCOSE,RANDOM 198 mg/dL (74-106); MAGNESIUM 1.6 mg/dL (1.8-2.4); PHOSPHOROUS 3.2 mg/dL (2.5-4.9); POTASSIUM 3.7 mmol/L (3.5-5.1); SGOT/AST 70 U/L (15-37); SGPT/ALT 14 U/L (13-61); SODIUM 142 mmol/L (136-145); TOT PROT 5.6 g/dl (6.4-8.2)
[2019-07-29] MEDS ORDERED: IRON POLYSACCHARIDES 150 MG CAPSULE PO SCH (10:00)
[2019-07-29] MEDS ORDERED: COLLAGENASE CLOSTRIDIUM HIST. 30 GRAMS TUBE TP SCH (10:00)
[2019-07-29] MEDS ORDERED: PANTOPRAZOLE 40 MG TABLET (FP) PO SCH (10:00)
--- NOTE | 2019-07-29 10:15 | PN ---
Progress Note, Physician Chief Complaint: RLE pain PAD Ischemia of RLE History of Present Illness: NAD RLE pain, RLE warm S/P embolectomy - Current Medication List Current Medications: Active Medications Acetaminophen (Ofirmev Injection -) 1,000 mg IVPB Q6H [facility] Stop: 07/29/19 14:01 Last Admin: 07/29/19 02:17 Dose: 1,000 mg Albuterol Sulfate (Ventolin 0.083% Nebulizer Soln -) 1 amp NEB RQID [facility]ICK Last Admin: 07/29/19 08:00 Dose: 1 amp Atorvastatin Calcium (Lipitor -) 40 mg PO HS MICK Budesonide (Pulmicort 0.25 Mg Nebulizer -) 1 amp NEB RBID MICK Last Admin: 07/29/19 08:00 Dose: Not Given Collagenase (Santyl -) 1 applic TP DAILY MICK; Protocol Fentanyl (Sublimaze Injection -) 50 mcg IVPUSH [id number] PRN PRN Reason: PAIN-PACU ORDER X 4 DOSES ONLY Heparin Sodium (Porcine) (Heparin -) 1,000 unit IVPUSH PRN PRN PRN Reason: Heparin Heparin Sodium (Porcine) (Heparin -) 5,000 unit IVPUSH PRN PRN PRN Reason: Heparin Last Admin: 07/29/19 02:23 Dose: 5,000 unit Heparin Sodium/Dextrose (Heparin Infusion -) 25,000 units in 500 mls @ 10 mls/ hr IVPB TITR [facility]; Protocol Last Titration: 07/29/19 01:50 Dose: 900 units/hr, 18 mls/hr Sodium Chloride (Normal Saline -) 1,000 mls @ 75 mls/hr IV ASDIR [facility] Last Admin: 07/28/19 23:01 Dose: 75 mls/hr Insulin Aspart (Novolog Vial Sliding Scale -) 1 vial SQ ACHS [facility]; Protocol Last Admin: 07/29/19 06:47 Dose: 4 units Insulin Detemir (Levemir Vial) 35 units SQ AM [facility] Last Admin: 07/29/19 06:46 Dose: 35 units Insulin Detemir (Levemir Vial) 12 units SQ HS [facility]ICK Lorazepam (Ativan -) 1 mg PO BID PRN PRN Reason: ANXIETY Morphine Sulfate (Morphine Sulfate) 4 mg IVPUSH Q3H PRN PRN Reason: PAIN LEVEL 6-10 Last Admin: 07/29/19 08:27 Dose: 4 mg Ondansetron HCl (Zofran Injection) 4 mg IVPUSH Q6H PRN PRN Reason: NAUSEA AND/OR VOMITING Pantoprazole Sodium (Protonix -) 40 mg PO DAILY [facility] Polysaccharide Iron Complex (Niferex-150 -) 150 mg PO DAILY [facility] Pregabalin (Lyrica -) 150 mg PO TID [facility] Last Admin: 07/29/19 06:48 Dose: 150 mg Promethazine HCl (Phenergan Injection -) 12.5 mg IVPUSH Q6H PRN PRN Reason: NAUSEA-FOR RESCUE AFTER 15 MIN - Objective Vital Signs: Vital Signs Temperature 98.8 F 07/29/19 06:19 Pulse Rate 74 07/29/19 06:19 Respiratory Rate 18 07/29/19 06:19 Blood Pressure 115/61 07/29/19 06:19 O2 Sat by Pulse Oximetry (%) 98 07/29/19 01:13 Constitutional: Yes: Well Nourished, No Distress, Calm Cardiovascular: Yes: Regular Rate and Rhythm Respiratory: Yes: Regular Gastrointestinal: Yes: Normal Bowel Sounds, Soft Musculoskeletal: Yes: Muscle Weakness Extremities: Yes: Amputation (LLE) Edema: No Peripheral Pulses WNL: Yes Wound/Incision: Yes: Dressing Dry and Intact Neurological: Yes: Alert, Oriented Psychiatric: Yes: Alert, Oriented Labs: CBC, BMP 07/29/19 08:00 07/29/19 08:00 INR, PTT INR 1.00 (0.83-1.09) 07/28/19 06:50 Problem List - Problems (1) CKD (chronic kidney disease) Assessment/Plan: -Cr improved -Continue IVF -Nephrology on board Problems reviewed: Yes Code(s): N18.9 - CHRONIC KIDNEY DISEASE, UNSPECIFIED (2) Ischemia of right lower extremity Assessment/Plan: -Seen by Vascular Sx -S/p embolectomy RLE -CTA:07/27/19:Occlusion of stenting and bypass graft on the left as discussed above with only collaterals from the pelvis filling branches of the deep femoral artery as described above. 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 Stenting within the iliofemoral noted on the right side. Occlusion of the common femoral artery distal to the stent is noted with pelvic collaterals filling a segmental branch of of the popliteal artery from just above the knee to below the knee with occlusion of this vessel. Thrombus proximal or distal cannot be excluded. Segmental filling of the posterior tibial artery was noted as discussed above. No pedal vessels were seen. -Still on heparin drip -D/C heparin -Start Xarelto 2.5 mg po BID for PAD with aspirin 81 mg po daily Problems reviewed: Yes Code(s): I99.8 - OTHER DISORDER OF CIRCULATORY SYSTEM (3) Anemia Assessment/Plan: -multifactorial -Chronic -previously iron deficient -Already on Iron polysaccharide -dilutional vs acute blood loss -check stool OB -PRBC 1 U today Problems reviewed: Yes Code(s): D64.9 - ANEMIA, UNSPECIFIED Qualifiers: Anemia type: unspecified type Qualified Code(s): D64.9 - Anemia, unspecified (4) COPD (chronic obstructive pulmonary disease) Assessment/Plan: -Bronchodilators -Nasal O2 to keep SpO2>90% -Pulmonary consult Problems reviewed: Yes Code(s): J44.9 - CHRONIC OBSTRUCTIVE PULMONARY DISEASE, UNSPECIFIED (5) Diabetes mellitus Assessment/Plan: -A1c at 9.8 -Endocrine consult -BGM AC HS -Diabetic low sodium low cholesterol diet -ISS -Levemir increase to 40 U in AM and 15 U HS -Follow trend Problems reviewed: Yes Code(s): E11.9 - TYPE 2 DIABETES MELLITUS WITHOUT COMPLICATIONS (6) Elevated LFTs Assessment/Plan: -chronic -03/2019 U/S liver-->fatty infiltration Problems reviewed: Yes Code(s): R94.5 - ABNORMAL RESULTS OF LIVER FUNCTION STUDIES (7) Sacral decubitus ulcer Assessment/Plan: -Plastic surgery consult -turn q2h -offloading Problems reviewed: Yes Code(s): L89.159 - PRESSURE ULCER OF SACRAL REGION, UNSPECIFIED STAGE Assessment/Plan see problem list
[2019-07-29] MEDS ORDERED: ACETAMINOPHEN 500 MG TABLET (FP) PO PRN (10:25)
[2019-07-29] MEDS ORDERED: oxyCODONE HCL 5 MG TABLET PO PRN (10:26)
[2019-07-29] MEDS: IRON POLYSACCHARIDES 150 MG CAPSULE PO SCH (11:15)
[2019-07-29] MEDS: PANTOPRAZOLE 40 MG TABLET (FP) PO SCH (11:15)
[2019-07-29] MEDS: COLLAGENASE CLOSTRIDIUM HIST. 30 GRAMS TUBE TP SCH (11:15)
--- NOTE | 2019-07-29 13:37 | PN ---
Progress Note (short form) - Note Progress Note: POD#2 Pt states that she is having pain to her right foot today. Vital Signs Period Temp Pulse Resp BP Sys/Green Pulse Ox Last 24 Hr 98.8 F-99.1 F 61-98 18-20 99-140/59-75 98-99 GEN: A&0x3, NAD Right thigh: inc c/d/i with manuel, no drainage or ecchymosis noted, thigh soft. Right knee dressing c/d/i with manuel and no drainage or erythema noted. The calf remains soft. Manolo removed with the tip intact. At/PT presents with doppler and foot warm. Toes remain dusky. CBC, BMP 07/29/ 08:00 07/29/19 08:00 A/p: 44 yo female s/p Right femoral embolectomy. Right poplteal and tibial embolectomy, patch angioplasty. Angiogram Plan to stop the IV heparin drip and resume Xarelto, spoke with the medical team. Discharge planning to rehab. Elevate RLE on pillows at all times Local wound care with dry dressing D/w Dr. Neil
[2019-07-29] MEDS: ASPIRIN 81 MG CHEWABLE TABLETS PO SCH (15:29)
--- NOTE | 2019-07-29 17:21 | PN ---
Progress Note, Physician History of Present Illness: Pt seen and examined at bedside. She is awake and alert. She denies shortness of breath. - Current Medication List Current Medications: Active Medications Acetaminophen (Tylenol -) 1,000 mg PO Q6H PRN PRN Reason: PAIN LEVEL 1 - 3 Albuterol Sulfate (Ventolin 0.083% Nebulizer Soln -) 1 amp NEB RQID [facility] Last Admin: 07/29/19 16:01 Dose: 1 amp Aspirin (Asa -) 81 mg PO DAILY [facility] Last Admin: 07/29/19 15:29 Dose: 81 mg Atorvastatin Calcium (Lipitor -) 40 mg PO HS [facility] Budesonide (Pulmicort 0.25 Mg Nebulizer -) 1 amp NEB RBID [facility] Last Admin: 07/29/19 08:00 Dose: Not Given Collagenase (Santyl -) 1 applic TP DAILY [facility]; Protocol Last Admin: 07/29/19 11:15 Dose: 1 applic Fentanyl (Sublimaze Injection -) 50 mcg IVPUSH [id number] PRN PRN Reason: PAIN-PACU ORDER X 4 DOSES ONLY Sodium Chloride (Normal Saline -) 1,000 mls @ 75 mls/hr IV ASDIR [facility] Last Admin: 07/28/19 23:01 Dose: 75 mls/hr Insulin Aspart (Novolog Vial Sliding Scale -) 1 vial SQ ACHS [facility]; Protocol Last Admin: 07/29/19 16:59 Dose: 3 units Insulin Detemir (Levemir Vial) 40 units SQ AM [facility]ICK Insulin Detemir (Levemir Vial) 15 units SQ HS [facility] Lorazepam (Ativan -) 1 mg PO BID PRN PRN Reason: ANXIETY Last Admin: 07/29/19 15:01 Dose: 1 mg Morphine Sulfate (Morphine Sulfate) 4 mg IVPUSH Q3H PRN PRN Reason: PAIN LEVEL 7 - 10 Last Admin: 07/29/19 16:53 Dose: 4 mg Ondansetron HCl (Zofran Injection) 4 mg IVPUSH Q6H PRN PRN Reason: NAUSEA AND/OR VOMITING Oxycodone HCl (Roxicodone -) 5 mg PO Q4H PRN PRN Reason: PAIN LEVEL 4 - 6 Pantoprazole Sodium (Protonix -) 40 mg PO DAILY [facility] Last Admin: 07/29/19 11:15 Dose: 40 mg Polysaccharide Iron Complex (Niferex-150 -) 150 mg PO DAILY [facility] Last Admin: 07/29/19 11:15 Dose: 150 mg Pregabalin (Lyrica -) 150 mg PO TID [facility] Last Admin: 07/29/19 15:28 Dose: 150 mg Promethazine HCl (Phenergan Injection -) 12.5 mg IVPUSH Q6H PRN PRN Reason: NAUSEA-FOR RESCUE AFTER 15 MIN Rivaroxaban (Xarelto) 2.5 mg PO BID [facility] - Objective Vital Signs: Vital Signs Temperature 98.7 F 07/29/19 14:00 Pulse Rate 97 H 07/29/19 14:00 Respiratory Rate 20 07/29/19 14:00 Blood Pressure 136/75 07/29/19 14:00 O2 Sat by Pulse Oximetry (%) 99 07/29/19 09:00 Constitutional: Yes: Calm Eyes: Yes: Conjunctiva Clear HENT: Yes: Atraumatic Neck: Yes: Supple Cardiovascular: Yes: S1, S2 Respiratory: Yes: CTA Bilaterally Gastrointestinal: Yes: Soft, Abdomen, Obese Genitourinary: Yes: WNL Musculoskeletal: Yes: Other (left bka) Edema: No Neurological: Yes: Oriented Psychiatric: Yes: Oriented Labs: CBC, BMP 07/29/19 08:00 07/29/19 08:00 INR, PTT INR 1.00 (0.83-1.09) 07/28/19 06:50 Problem List - Problems (1) CKD (chronic kidney disease) Code(s): N18.9 - CHRONIC KIDNEY DISEASE, UNSPECIFIED (2) Ischemia of right lower extremity Code(s): I99.8 - OTHER DISORDER OF CIRCULATORY SYSTEM Assessment/Plan Current Medications Generic Name Dose Route Start Last Admin Trade Name Freq PRN Reason Stop Dose Admin Acetaminophen 1,000 mg 07/29/19 10:25 Tylenol - PO Q6H PRN PAIN LEVEL 1 - 3 Albuterol Sulfate 1 amp 07/29/19 08:00 07/29/19 16:01 Ventolin 0.083% Nebulizer Soln - NEB 1 amp RQID MICK Administration Aspirin 81 mg 07/29/19 15:30 07/29/19 15:29 Asa - PO 81 mg DAILY [facility]ICK Administration Atorvastatin Calcium 40 mg 07/29/19 22:00 Lipitor - PO HS [facility] Budesonide 1 amp 07/29/19 08:00 07/29/19 08:00 Pulmicort 0.25 Mg Nebulizer - NEB Not Given RBID [facility]ICK Collagenase 1 applic 07/29/19 10:00 07/29/19 11:15 Santyl - TP 1 applic DAILY [facility] Administration Protocol Fentanyl 50 mcg 07/28/19 22:53 Sublimaze Injection - IVPUSH [id number] PRN PAIN-PACU ORDER X 4 DOSES ONLY Sodium Chloride 1,000 mls @ 75 mls/hr 07/28/19 22:53 07/28/19 23:01 Normal Saline - IV 75 mls/hr ASDIR [facility] Administration Insulin Aspart 1 vial 07/29/19 07:00 07/29/19 16:59 Novolog Vial Sliding Scale - SQ 3 units ACHS [facility] Administration Protocol Insulin Detemir 40 units 07/29/19 10:31 Levemir Vial SQ AM [facility] Insulin Detemir 15 units 07/29/19 22:00 Levemir Vial SQ HS [facility] Lorazepam 1 mg 07/28/19 22:53 07/29/19 15:01 Ativan - PO 1 mg BID PRN Administration ANXIETY Morphine Sulfate 4 mg 07/29/19 10:26 07/29/19 16:53 Morphine Sulfate IVPUSH 4 mg Q3H PRN Administration PAIN LEVEL 7 - 10 Ondansetron HCl 4 mg 07/28/19 22:53 Zofran Injection IVPUSH Q6H PRN NAUSEA AND/OR VOMITING Oxycodone HCl 5 mg 07/29/19 10:26 Roxicodone - PO Q4H PRN PAIN LEVEL 4 - 6 Pantoprazole Sodium 40 mg 07/29/19 10:00 07/29/19 11:15 Protonix - PO 40 mg DAILY [facility] Administration Polysaccharide Iron Complex 150 mg 07/29/19 10:00 07/29/19 11:15 Niferex-150 - PO 150 mg DAILY [facility] Administration Pregabalin 150 mg 07/29/19 06:00 07/29/19 15:28 Lyrica - PO 150 mg TID [facility] Administration Promethazine HCl 12.5 mg 07/28/19 22:53 Phenergan Injection - IVPUSH Q6H PRN NAUSEA-FOR RESCUE AFTER 15 MIN Rivaroxaban 2.5 mg 07/29/19 22:00 Xarelto PO BID [facility] Laboratory Tests 07/29/19 08:00 Creatinine 1.1 Magnesium 1.6 L Impression 1. right leg ischemia 2. CKD 3. PVD 4. DM 5. protein s def 6. cad Plan - renal function is stable - replace mag - avoid nsaids - vascular follow up - avoid nephrotoxins
[2019-07-29] MEDS ORDERED: MAGNESIUM SULF 50% (8.12 MEQ/2 ML-1 GM VIAL) IVPB ONE (17:22)
[2019-07-29] MEDS ORDERED: PT OWN MED DRAWER 7, Y5N ONE (20:32)
[2019-07-29] MEDS ORDERED: ATORVASTATIN CA 40 MG TABLET (FP) PO SCH (22:00)
[2019-07-29] MEDS ORDERED: SENNOSIDES 8.6MG TABLET (FP) PO SCH (22:00)
[2019-07-29] MEDS: RIVAROXABAN 2.5 MG TABLET PO SCH (22:37)
[2019-07-30] MEDS: morphine SULFATE 4 MG/ML VIAL IVPUSH PRN ×5 (02:12→22:20)
[2019-07-30] MEDS: INSULIN SLIDING SCALE (NOVOLOG) 1 VIAL SQ SCH ×4 (07:06→22:22)
[2019-07-30] MEDS: PREGABALIN 50 MG CAPSULE PO SCH ×3 (07:06→23:25)
[2019-07-30 08:30] LABS: HEMATOCRIT 29.4 % (32.4-45.2); HEMOGLOBIN 9.7 GM/dL (10.7-15.3); MCH 25.1 pg (25.7-33.7); MCHC 32.9 g/dl (32.0-36.0); MEAN CELL VOLUME 76.1 fl (80-96); MEAN PLT VOLUME 9.1 fl (7.5-11.1); PLATELET COUNT 178 K/MM3 (134-434); RBC 3.86 M/mm3 (3.60-5.2); RDW 22.8 % (11.6-15.6); WHITE BLOOD COUNT 11.9 K/mm3 (4.0-10.0)
[2019-07-30] MEDS: BUDESONIDE 0.25 MG/2ML INH SUSP VIAL NEB SCH (08:35)
[2019-07-30] MEDS: ALBUTEROL SO4 0.083% IH SOL 2.5 MG/3 ML VIAL.NEB. NEB SCH ×3 (08:36→16:00)
[2019-07-30 09:00] LABS: ALBUMIN 1.9 g/dl (3.4-5.0); BILIRUBIN,TOTAL 0.5 mg/dL (0.2-1); BLOOD UREA NITROGEN 8.6 mg/dL (7-18); CALCIUM 8.2 mg/dL (8.5-10.1); CREATININE 0.9 mg/dL (0.55-1.3); MAGNESIUM 1.6 mg/dL (1.8-2.4); POTASSIUM 3.5 mmol/L (3.5-5.1); TOT PROT 5.9 g/dl (6.4-8.2)
[2019-07-30] MEDS ORDERED: HEPARIN NA (PORCINE) 5,000 UNITS/ML 1ML VIAL IVPUSH ONE (09:48)
--- NOTE | 2019-07-30 10:23 | DS ---
Physical Examination Vital Signs: Vital Signs Temperature 98.5 F 07/30/19 06:00 Pulse Rate 89 07/30/19 06:00 Respiratory Rate 20 07/30/19 06:00 Blood Pressure 120/65 07/30/19 06:00 O2 Sat by Pulse Oximetry (%) 98 07/29/19 21:00 Findings/Remarks: This is a 44 y/o woman with a past medical history of PAD, s/p left below the knee amputation, DM, HLD, HTN, CVA, PAD. Who presents to the ED with severe right lower extremity pain, discoloration and coolness x 1 day. Patient reports that she been having right leg pain since last night, states she tried to take a step last night but fell secondary to the pain. The patient reports coldness and discoloration to the digits. The patient reports that she has not been compliant with her blood thinner medication for the past 4 days secondary to the pain. She also endorses not taking her insulin as well. Patient denies fever , cough, dizziness, SOB, CP, palpitations, AP, N/V/D, dysuria. Operative Date: 07/27/19 Pre-Operative Diagnosis: Occlusion right femoral, popliteal and tibial arteries , ischemic foot Operation: Right femoral embolectomy. Right poplteal and tibial embolectomy, patch angioplasty. Angiogram Findings: Occlusion of right femoral, popliteal and tibial arteries with acute and subacute thrombus Completion angiogram showed distal arterial flow to posterior tibial and dorsalis pedis arteries. Implants: Bovine carotid patch Post-Operative Diagnosis: Same as Pre-op Surgeon: Walter Neil Constitutional: Yes: Well Nourished, No Distress, Calm Cardiovascular: Yes: Regular Rate and Rhythm Respiratory: Yes: Regular Gastrointestinal: Yes: Normal Bowel Sounds, Soft Renal/: Yes: WNL Musculoskeletal: Yes: Other (RLE pain) Extremities: Yes: Amputation (LLE) Edema: Yes (RLE) Peripheral Pulses WNL: Yes Wound/Incision: Yes: Dressing Dry and Intact Neurological: Yes: Alert, Oriented Psychiatric: Yes: Alert, Oriented Labs: CBC, BMP 07/30/19 08:06 07/30/19 08:06 Discharge Summary Problems reviewed: Yes Reason For Visit: ISCHEMIA OF RIGHT LOWER EXTREMITY Current Active Problems CKD (chronic kidney disease) (Acute) Controlled type 2 diabetes mellitus with diabetic peripheral angiopathy without gangrene, with long-term current use of insulin (Acute) History of embolectomy (Acute) Ischemia of right lower extremity (Acute) Type 2 diabetes mellitus with diabetic neuropathic arthropathy (Acute) Laboratory Last Values WBC 11.9 K/mm3 (4.0-10.0) H 07/30/19 08:06 RBC 3.86 M/mm3 (3.60-5.2) 07/30/19 08:06 Hgb 9.7 GM/dL (10.7-15.3) L 07/30/19 08:06 Hct 29.4 % (32.4-45.2) L D 07/30/19 08:06 MCV 76.1 fl (80-96) L 07/30/19 08:06 MCH 25.1 pg (25.7-33.7) L D 07/30/19 08:06 MCHC 32.9 g/dl (32.0-36.0) 07/30/19 08:06 RDW 22.8 % (11.6-15.6) H 07/30/19 08:06 Plt Count 178 K/MM3 (134-434) 07/30/19 08:06 MPV 9.1 fl (7.5-11.1) 07/30/19 08:06 Absolute Neuts (auto) 14.5 K/mm3 (1.5-8.0) H 07/27/19 20:06 Neutrophils % 90.3 % (42.8-82.8) H 07/27/19 20:06 Lymphocytes % 6.6 % (8-40) L D 07/27/19 20:06 Monocytes % 2.4 % (3.8-10.2) L 07/27/19 20:06 Eosinophils % 0.3 % (0-4.5) D 07/27/19 20:06 Basophils % 0.4 % (0-2.0) 07/27/19 20:06 Nucleated RBC % 0 % (0-0) 07/27/19 20:06 PT with INR 11.80 SEC (9.7-13.0) 07/28/19 06:50 INR 1.00 (0.83-1.09) 07/28/19 06:50 PTT (Actin FS) 35.3 SECONDS (25.2-36.5) 07/30/19 08:06 Sodium 145 mmol/L (136-145) 07/30/19 08:06 Potassium 3.5 mmol/L (3.5-5.1) 07/30/19 08:06 Chloride 110 mmol/L (98-107) H 07/30/19 08:06 Carbon Dioxide 29 mmol/L (21-32) 07/30/19 08:06 Anion Gap 5 MMOL/L (8-16) L 07/30/19 08:06 BUN 8.6 mg/dL (7-18) 07/30/19 08:06 Creatinine 0.9 mg/dL (0.55-1.3) 07/30/19 08:06 Est GFR (CKD-EPI)AfAm 88.87 07/30/19 08:06 Est GFR (CKD-EPI)NonAf 76.68 07/30/19 08:06 POC Glucometer 103 UNITS (80-120) 07/30/19 07:04 Random Glucose 83 mg/dL (74-106) 07/30/19 08:06 Hemoglobin A1c % 9.8 % (4.2-6.3) H 07/28/19 06:50 Calcium 8.2 mg/dL (8.5-10.1) L 07/30/19 08:06 Phosphorus 3.2 mg/dL (2.5-4.9) 07/29/19 08:00 Magnesium 1.6 mg/dL (1.8-2.4) L 07/30/19 08:06 Total Bilirubin 0.5 mg/dL (0.2-1) 07/30/19 08:06 AST 64 U/L (15-37) H 07/30/19 08:06 ALT 15 U/L (13-61) 07/30/19 08:06 Alkaline Phosphatase 173 U/L (45-117) H 07/30/19 08:06 Total Protein 5.9 g/dl (6.4-8.2) L 07/30/19 08:06 Albumin 1.9 g/dl (3.4-5.0) L 07/30/19 08:06 Serum , Qual Negative 07/27/19 06:05 Blood Type B POSITIVE 07/29/19 12:50 Antibody Screen Negative 07/29/19 12:50 Crossmatch See Detail 07/29/19 12:50 Vital Signs Temp 98.5 F 07/30/19 06:00 Pulse 89 07/30/19 06:00 Resp 20 07/30/19 06:00 BP 120/65 07/30/19 06:00 Pulse Ox 98 07/29/19 21:00 Intake & Output 07/29/19 07/29/19 07/30/19 11:59 23:59 11:59 Intake Total 510 663 Output Total 915 1000 Balance -405 -337 Weight 68.039 kg Intake: IV 270 663 HEPARIN INFUSION - 25,000 45 63 units In 500 ml @ 500 UNITS/HR 10 mls/hr IVPB TITR [facility]ICK Rx#:[id number] Normal Saline - 1,000 ml 225 600 @ 75 mls/hr IV ASDIR [facility] Rx#:[id number] Oral 240 Output: Drainage 15 Right Leg 15 Urine 900 1000 Muro 900 1000 Other: Voiding Method Indwelling Catheter Diaper Diaper # Unmeasured Voids Muro 2 1 Bowel Movement No No No Height 5 ft 1 in Body Mass Index (BMI) 28.3 Condition: Stable - Instructions Diet, Activity, Other Instructions: Keep your incisions clean and dry. No bath or showers. Follow up with Dr Neil in 2 to 3 weeks after your surgical procedure. Referrals: Walter Neil MD [Staff Physician] - Disposition: [facility] FACILITY - Home Medications Comprehensive Discharge Medication List: Ambulatory Orders Budesonide [Pulmicort 0.25 mg Nebulizer -] 1 neb PO BID 11/21/15 Albuterol 0.083% Nebulizer Carolyn [Ventolin 0.083% Nebulizer Soln -] 1 amp NEB Q6HPO amp 12/15/15 Pregabalin [Lyrica -] 150 mg PO TID 04/15/16 Acetaminophen [Tylenol .Regular Strength -] 650 mg PO Q6H PRN #0 tablet Docusate Sodium [Colace -] 100 mg PO BID #60 11/22/16 Iron Polysaccharides [Niferex-150 -] 150 mg PO DAILY #30 11/22/16 Meclizine HCl [Antivert -] 25 mg PO TID PRN #90 tablet 11/22/16 Cyclobenzaprine HCl [Flexeril -] 1 tab PO BID PRN 06/28/18 Rivaroxaban [Xarelto] 1 tab PO DAILY 06/28/18 LORazepam [Ativan] 1 mg PO BID MDD 2 01/10/19 Atorvastatin Ca [Lipitor] 40 mg PO HS #30 tablet 01/16/19 Insulin Sliding Scale [Novolog Vial Sliding Scale -] 1 vial SQ TIDAC units 08/21 Insulin (Levemir) [Levemir Vial] 30 units SQ HS units 03/26/19 Nystatin Cream [Mycostatin Cream -] 1 applic TP BID applic 03/26/19 Polyethylene Glycol 3350 [Miralax 119 gm Btl -] 17 gm PO DAILY bottle 03/26/19 Pramipexole Dihydrochloride [Mirapex -] 0.25 mg PO HS tablet 03/26/19 Insulin (Levemir) [Levemir Vial] 30 units SQ AM units 04/16/19
[2019-07-30] MEDS ORDERED: MAGNESIUM OXIDE 400 MG TABLET (FP) PO SCH (10:30)
[2019-07-30] MEDS ORDERED: PT OWN MED DRAWER 7, Y5N ONE (10:46)
[2019-07-30] MEDS: ASPIRIN 81 MG CHEWABLE TABLETS PO SCH (11:02)
[2019-07-30] MEDS: PANTOPRAZOLE 40 MG TABLET (FP) PO SCH (11:02)
[2019-07-30] MEDS: IRON POLYSACCHARIDES 150 MG CAPSULE PO SCH (11:02)
[2019-07-30] MEDS: RIVAROXABAN 2.5 MG TABLET PO SCH (11:03)
--- NOTE | 2019-07-30 11:40 | PN ---
Progress Note (short form) - Note Progress Note: Discharge cancelled. Right foot cold again. Seen by Vascular surgery this AM. CTA pending. Problem List - Problems (1) CKD (chronic kidney disease) Code(s): N18.9 - CHRONIC KIDNEY DISEASE, UNSPECIFIED (2) Ischemia of right lower extremity Code(s): I99.8 - OTHER DISORDER OF CIRCULATORY SYSTEM (3) Anemia Code(s): D64.9 - ANEMIA, UNSPECIFIED Qualifiers: Anemia type: unspecified type Qualified Code(s): D64.9 - Anemia, unspecified (4) COPD (chronic obstructive pulmonary disease) Code(s): J44.9 - CHRONIC OBSTRUCTIVE PULMONARY DISEASE, UNSPECIFIED (5) Diabetes mellitus Code(s): E11.9 - TYPE 2 DIABETES MELLITUS WITHOUT COMPLICATIONS (6) Elevated LFTs Code(s): R94.5 - ABNORMAL RESULTS OF LIVER FUNCTION STUDIES (7) Sacral decubitus ulcer Code(s): L89.159 - PRESSURE ULCER OF SACRAL REGION, UNSPECIFIED STAGE
--- NOTE | 2019-07-30 12:03 | PN ---
Progress Note, Physician History of Present Illness: Pt seen and examined at bedside. she complains of right foot pain. - Current Medication List Current Medications: Active Medications Acetaminophen (Tylenol -) 1,000 mg PO Q6H PRN PRN Reason: PAIN LEVEL 1 - 3 Albuterol Sulfate (Ventolin 0.083% Nebulizer Soln -) 1 amp NEB RQID [facility] Last Admin: 07/30/19 11:55 Dose: Not Given Aspirin (Asa -) 81 mg PO DAILY [facility] Last Admin: 07/30/19 11:02 Dose: 81 mg Atorvastatin Calcium (Lipitor -) 40 mg PO HS [facility] Last Admin: 07/29/19 22:22 Dose: 40 mg Budesonide (Pulmicort 0.25 Mg Nebulizer -) 1 amp NEB RBID [facility] Last Admin: 07/30/19 08:35 Dose: 1 amp Collagenase (Santyl -) 1 applic TP DAILY [facility]; Protocol Last Admin: 07/29/19 11:15 Dose: 1 applic Fentanyl (Sublimaze Injection -) 50 mcg IVPUSH [id number] PRN PRN Reason: PAIN-PACU ORDER X 4 DOSES ONLY Insulin Aspart (Novolog Vial Sliding Scale -) 1 vial SQ ACHS [facility]; Protocol Last Admin: 07/30/19 11:36 Dose: 4 units Insulin Detemir (Levemir Vial) 40 units SQ AM [facility] Last Admin: 07/30/19 11:00 Dose: Not Given Insulin Detemir (Levemir Vial) 15 units SQ HS [facility] Last Admin: 07/29/19 22:22 Dose: 15 units Lorazepam (Ativan -) 1 mg PO BID PRN PRN Reason: ANXIETY Last Admin: 07/29/19 15:01 Dose: 1 mg Magnesium Oxide (Mag-Ox -) 400 mg PO BID [facility] Last Admin: 07/30/19 11:00 Dose: 400 mg Morphine Sulfate (Morphine Sulfate) 4 mg IVPUSH Q3H PRN PRN Reason: PAIN LEVEL 7 - 10 Last Admin: 07/30/19 11:00 Dose: 4 mg Ondansetron HCl (Zofran Injection) 4 mg IVPUSH Q6H PRN PRN Reason: NAUSEA AND/OR VOMITING Oxycodone HCl (Roxicodone -) 5 mg PO Q4H PRN PRN Reason: PAIN LEVEL 4 - 6 Pantoprazole Sodium (Protonix -) 40 mg PO DAILY [facility] Last Admin: 07/30/19 11:02 Dose: 40 mg Polysaccharide Iron Complex (Niferex-150 -) 150 mg PO DAILY [facility] Last Admin: 07/30/19 11:02 Dose: 150 mg Pregabalin (Lyrica -) 150 mg PO TID [facility] Last Admin: 07/30/19 07:06 Dose: 150 mg Promethazine HCl (Phenergan Injection -) 12.5 mg IVPUSH Q6H PRN PRN Reason: NAUSEA-FOR RESCUE AFTER 15 MIN Rivaroxaban (Xarelto) 2.5 mg PO BID [facility] Last Admin: 07/30/19 11:03 Dose: 2.5 mg Senna (Senna -) 2 tab PO HS [facility] Last Admin: 07/29/19 22:21 Dose: 2 tab - Objective Vital Signs: Vital Signs Temperature 98.5 F 07/30/19 06:00 Pulse Rate 89 07/30/19 06:00 Respiratory Rate 20 07/30/19 06:00 Blood Pressure 120/65 07/30/19 06:00 O2 Sat by Pulse Oximetry (%) 98 07/29/19 21:00 Constitutional: Yes: Calm Eyes: Yes: Conjunctiva Clear HENT: Yes: Atraumatic Cardiovascular: Yes: S1, S2 Respiratory: Yes: CTA Bilaterally Gastrointestinal: Yes: Normal Bowel Sounds, Soft Genitourinary: Yes: WNL Musculoskeletal: Yes: Other (left bka) Edema: Yes Edema: RLE: Trace Neurological: Yes: Oriented Psychiatric: Yes: Oriented Labs: CBC, BMP 07/30/19 08:06 07/30/19 08:06 INR, PTT INR 1.00 (0.83-1.09) 07/28/19 06:50 Problem List - Problems (1) CKD (chronic kidney disease) Code(s): N18.9 - CHRONIC KIDNEY DISEASE, UNSPECIFIED (2) Ischemia of right lower extremity Code(s): I99.8 - OTHER DISORDER OF CIRCULATORY SYSTEM Assessment/Plan Current Medications Generic Name Dose Route Start Last Admin Trade Name Freq PRN Reason Stop Dose Admin Acetaminophen 1,000 mg 07/29/19 10:25 Tylenol - PO Q6H PRN PAIN LEVEL 1 - 3 Albuterol Sulfate 1 amp 07/29/19 08:00 07/30/19 11:55 Ventolin 0.083% Nebulizer Soln - NEB Not Given RQID [facility] Aspirin 81 mg 07/29/19 15:30 07/30/19 11:02 Asa - PO 81 mg DAILY [facility] Administration Atorvastatin Calcium 40 mg 07/29/19 22:00 07/29/19 22:22 Lipitor - PO 40 mg HS [facility] Administration Budesonide 1 amp 07/29/19 08:00 07/30/19 08:35 Pulmicort 0.25 Mg Nebulizer - NEB 1 amp RBID [facility] Administration Collagenase 1 applic 07/29/19 10:00 07/29/19 11:15 Santyl - TP 1 applic DAILY [facility] Administration Protocol Fentanyl 50 mcg 07/28/19 22:53 Sublimaze Injection - IVPUSH [id number] PRN PAIN-PACU ORDER X 4 DOSES ONLY Insulin Aspart 1 vial 07/29/19 07:00 07/30/19 11:36 Novolog Vial Sliding Scale - SQ 4 units ACHS [facility] Administration Protocol Insulin Detemir 40 units 07/29/19 10:31 07/30/19 11:00 Levemir Vial SQ Not Given AM [facility] Insulin Detemir 15 units 07/29/19 22:00 07/29/19 22:22 Levemir Vial SQ 15 units HS [facility] Administration Lorazepam 1 mg 07/28/19 22:53 07/29/19 15:01 Ativan - PO 1 mg BID PRN Administration ANXIETY Magnesium Oxide 400 mg 07/30/19 10:30 07/30/19 11:00 Mag-Ox - PO 400 mg BID [facility] Administration Morphine Sulfate 4 mg 07/29/19 10:26 07/30/19 11:00 Morphine Sulfate IVPUSH 4 mg Q3H PRN Administration PAIN LEVEL 7 - 10 Ondansetron HCl 4 mg 07/28/19 22:53 Zofran Injection IVPUSH Q6H PRN NAUSEA AND/OR VOMITING Oxycodone HCl 5 mg 07/29/19 10:26 Roxicodone - PO Q4H PRN PAIN LEVEL 4 - 6 Pantoprazole Sodium 40 mg 07/29/19 10:00 07/30/19 11:02 Protonix - PO 40 mg DAILY [facility] Administration Polysaccharide Iron Complex 150 mg 07/29/19 10:00 07/30/19 11:02 Niferex-150 - PO 150 mg DAILY [facility] Administration Pregabalin 150 mg 07/29/19 06:00 07/30/19 07:06 Lyrica - PO 150 mg TID [facility] Administration Promethazine HCl 12.5 mg 07/28/19 22:53 Phenergan Injection - IVPUSH Q6H PRN NAUSEA-FOR RESCUE AFTER 15 MIN Rivaroxaban 2.5 mg 07/29/19 22:00 07/30/19 11:03 Xarelto PO 2.5 mg BID [facility] Administration Senna 2 tab 07/29/19 22:00 07/29/19 22:21 Senna - PO 2 tab HS [facility] Administration Impression 1. right leg ischemia 2. CKD 3. PVD 4. DM 5. protein s def 6. cad Plan - replace mag - vascular follow up - renal function stale - avoid nephrotoxins
--- NOTE | 2019-07-30 12:19 | PN ---
Progress Note (short form) - Note Progress Note: VASCULAR SURGERY - Dr. Neil POD #3 s/p Right femoral embolectomy. Right poplteal and tibial embolectomy, patch angioplasty. Angiogram Alert. C/o persistent right foot pain. Last Vital Signs Temp Pulse Resp BP Pulse Ox 98.5 F 89 20 120/65 98 07/30/19 06:00 07/30/19 06:00 07/30/19 06:00 07/30/19 06:00 07/29/19 21:00 CBC, BMP 07/30/19 08:06 07/30/19 08:06 INR, PTT INR 1.00 (0.83-1.09) 07/28/19 06:50 PE GEN: A&0x3, NAD RLE: thigh --> dressing c/d/i, manuel intact, no drainage or ecchymosis, thigh soft. knee --> dressing c/d/i, manuel intact, no drainage or ecchymosis, calf soft. NO DOPPLERABLE AT OR AT. Foot cool. Toes remain cyanotic. Pain with movement and to light touch <Vel Knight - Last Filed: 07/30/19 12:19> - Note Progress Note: Right foot is cooler than yesterday but not cold. Doppler pulses are diminished. CTA shows occlusion of distal STENO POOL SUPERVISOR and stneosis vs occlusion of mid SFA short segment. Plan angiogram with thrombolysis and angioplasty if needed. <Walter Neil - Last Filed: 07/30/19 19:32> Problem List - Problems (1) Ischemia of right lower extremity Assessment/Plan: POD #3 s/p Right femoral embolectomy. Right poplteal and tibial embolectomy, patch angioplasty. Angiogram. Now with loss of AT & PT pulses. 1. STAT CTA w/ LE runoff 2. Bolus Heparin 3. Made NPO 4. IVF 5. Possible OR today pending results of above study. Dr. Neil made aware and agrees with plan. Code(s): I99.8 - OTHER DISORDER OF CIRCULATORY SYSTEM (2) Arterial occlusion Code(s): I74.9 - EMBOLISM AND THROMBOSIS OF UNSPECIFIED ARTERY (3) Asthma Code(s): J45.909 - UNSPECIFIED ASTHMA, UNCOMPLICATED (4) CAD (coronary artery disease) Code(s): I25.10 - ATHSCL HEART DISEASE OF [place] CORONARY ARTERY W/O ANG PCTRS (5) COPD (chronic obstructive pulmonary disease) Code(s): J44.9 - CHRONIC OBSTRUCTIVE PULMONARY DISEASE, UNSPECIFIED <Vel Knight - Last Filed: 07/30/19 12:19>
[2019-07-30] MEDS: COLLAGENASE CLOSTRIDIUM HIST. 30 GRAMS TUBE TP SCH (15:22)
[2019-07-30] MEDS ORDERED: ALTEPLASE (CATHFLO) 10 MG in SODIUM CHLORIDE 100 ML NR ONE (17:00)
[2019-07-30] MEDS ORDERED: ceFAZolin SODIUM 1 GM VIAL IVPB ONE (17:20)
--- NOTE | 2019-07-30 18:08 | PATH ---
Surgical Pathology Report Patient Name: SARAH TREVIÑO Med. Rec. #: [id number] /Age/Gender: 1975 (Age: 44) / F Account: [id number] Location: [address] [place] [address]/[facility] Taken: 07/27/2019 Received: 07/28/2019 Reported: 07/30/2019 Physicians: Walter Neil M.D. Specimen(s) Received TIBIAL ARTERY Clinical History Ischemia right lower extremity Final Diagnosis CLOT, FEMORAL, POPLITEAL AND TIBIAL, RIGHT, THROMBECTOMY: BLOOD/FIBRIN CLOT. Electronically Signed Davida Valentine M.D. Gross Description Received in formalin labeled "clot femoral popliteal and tibial right," is a 4.0 x 3.0 x 0.4 cm aggregate of multiple lockwood-brown, cylindrical portions of blood clot. A sales representative uniforms portion is submitted in one cassette. /07/29/2019 saudi07/29/2019
--- NOTE | 2019-07-30 19:36 | OP ---
Operative Note - Note: Operative Date: 07/30/19 Pre-Operative Diagnosis: Rethrombosis of right leg arteries. Ischemic foot Operation: Angiogram right leg with infusion of TPA. Angioplasty of OUTSOLE CUTTER MACHINE. Placement stent SFA Findings: Stenosis of mid SFA patent distal SFA,popliteal, proximal OUTSOLE CUTTER MACHINE. Distal OUTSOLE CUTTER MACHINE occlusion with patent vessels in foot. Patent peroneal to ankle. occlusion proximal AMELIA with distal reconstitution and DPA runoff. Implants: 6 x 40 LifeStent x 2 Post-Operative Diagnosis: Same as Pre-op Surgeon: Walter Neil Transportation Planner: Vel Knight Anesthesiologist/CITY TAX AUDITOR: Rober Cassidy Anesthesia: General Estimated Blood Loss (mls): 5
[2019-07-30] MEDS ORDERED: ONDANSETRON 4 MG/2 ML VIAL IVPUSH PRN (19:43)
[2019-07-30] MEDS ORDERED: PROMETHAZINE HCL 25 MG/1 ML VIAL IVPUSH PRN (19:43)
[2019-07-30] MEDS ORDERED: LACTATED RINGERS SOLUTION 1,000 ML IV SCH (19:45)
--- NOTE | 2019-07-30 19:46 | SURG ---
Surgery Table Saw Operator Note Table Saw Operator: Vel Knight PA-C Date of Service: 07/30/19 Diagnosis: Rethrombosis of left leg arteries. Ischemic foot Procedure: Angiogram right leg with infusion of TPA. Angioplasty of QUILL BUNCHER AND SORTER. Placement stent SFA I was present for the entirety of the operative procedure. For further detail, please refer to operative report. Visit type - Case Type Case Type: ED Admission - Emergency Emergency Visit: Yes ED Registration Date: 07/27/19 Care time: The patient presented to the Emergency Department on the above date and was hospitalized for further evaluation of their emergent condition.
[2019-07-30] MEDS ORDERED: HEPARIN NA (PORCINE) 5,000 UNITS/ML 1ML VIAL IVPUSH PRN ×2 (19:47)
[2019-07-30] MEDS ORDERED: ACETAMINOPHEN 500 MG TABLET (FP) PO PRN (20:18)
[2019-07-30] MEDS ORDERED: HEPARIN INFUSION - 500 ML IV SCH (21:00)
[2019-07-30] MEDS ORDERED: HEPARIN INFUSION - 25,000 UNITS/500 ML INFUS.BAG IVPB SCH (21:00)
[2019-07-30] MEDS ORDERED: HEPARIN INFUSION - 25,000 UNITS/500 ML INFUS.BAG IVPB ONE (21:04)
[2019-07-30] MEDS ORDERED: RIVAROXABAN 2.5 MG TABLET PO SCH (22:00)
[2019-07-30] MEDS: INSULIN (LEVEMIR) 100 UNITS/ML UNITS SQ SCH (22:21)
--- NOTE | 2019-07-30 22:43 | PN ---
Progress Note, Physician Chief Complaint: resting comfortable - Current Medication List Current Medications: Active Medications Acetaminophen (Tylenol -) 1,000 mg PO Q6H PRN PRN Reason: PAIN LEVEL 1 - 3 Albuterol Sulfate (Ventolin 0.083% Nebulizer Soln -) 1 amp NEB RQID [facility] Aspirin (Asa -) 81 mg PO DAILY [facility] Atorvastatin Calcium (Lipitor -) 40 mg PO HS [facility] Budesonide (Pulmicort 0.25 Mg Nebulizer -) 1 amp NEB RBID [facility] Collagenase (Santyl -) 1 applic TP DAILY [facility]; Protocol Fentanyl (Sublimaze Injection -) 50 mcg IVPUSH [id number] PRN PRN Reason: PAIN-PACU ORDER X 4 DOSES ONLY Heparin Sodium (Porcine) (Heparin -) 1,000 unit IVPUSH PRN PRN PRN Reason: Heparin Heparin Sodium (Porcine) (Heparin -) 5,000 unit IVPUSH PRN PRN PRN Reason: Heparin Heparin Sodium/Dextrose (Heparin Infusion -) 25,000 units in 500 mls @ 23 mls/ hr IVPB TITR [facility]; Protocol Last Admin: 07/30/19 21:00 Dose: 0 mls Insulin Aspart (Novolog Vial Sliding Scale -) 1 vial SQ ACHS [facility]; Protocol Last Admin: 07/30/19 22:22 Dose: 3 units Insulin Detemir (Levemir Vial) 40 units SQ AM [facility] Insulin Detemir (Levemir Vial) 15 units SQ HS [facility] Last Admin: 07/30/19 22:21 Dose: 15 units Lorazepam (Ativan -) 1 mg PO BID PRN PRN Reason: ANXIETY Magnesium Oxide (Mag-Ox -) 400 mg PO BID [facility] Morphine Sulfate (Morphine Sulfate) 4 mg IVPUSH Q3H PRN PRN Reason: PAIN LEVEL 7 - 10 Last Admin: 07/30/19 22:20 Dose: 4 mg Ondansetron HCl (Zofran Injection) 4 mg IVPUSH Q6H PRN PRN Reason: NAUSEA AND/OR VOMITING Oxycodone HCl (Roxicodone -) 5 mg PO Q4H PRN PRN Reason: PAIN LEVEL 4 - 6 Pantoprazole Sodium (Protonix -) 40 mg PO DAILY [facility] Polysaccharide Iron Complex (Niferex-150 -) 150 mg PO DAILY [facility] Pregabalin (Lyrica -) 150 mg PO TID [facility] Promethazine HCl (Phenergan Injection -) 12.5 mg IVPUSH Q6H PRN PRN Reason: NAUSEA-FOR RESCUE AFTER 15 MIN Senna (Senna -) 2 tab PO HS [facility] - Objective Vital Signs: Vital Signs Temperature 98.4 F 07/30/19 21:00 Pulse Rate 69 07/30/19 21:00 Respiratory Rate 10 07/30/19 21:00 Blood Pressure 97/57 L 07/30/19 21:00 O2 Sat by Pulse Oximetry (%) 100 07/30/19 21:00 Constitutional: Yes: Calm Eyes: Yes: EOM Intact HENT: Yes: Normocephalic Neck: Yes: Trachea Midline Cardiovascular: Yes: Regular Rate and Rhythm Respiratory: Yes: CTA Bilaterally Gastrointestinal: Yes: Normal Bowel Sounds ...Rectal Exam: Yes: Deferred Genitourinary: Yes: WNL Musculoskeletal: Yes: Joint Swelling, Muscle Pain, Muscle Weakness Extremities: Yes: Cool Edema: Yes Edema: RLE: 1+ Peripheral Pulses WNL: No Peripheral Pulses: Right Femoral: 1+ Integumentary: Yes: Venous Stasis Changes Neurological: Yes: Alert, Oriented Labs: CBC, BMP 07/30/19 08:06 07/30/19 08:06 INR, PTT INR 1.00 (0.83-1.09) 07/28/19 06:50 Problem List - Problems (1) Type 2 diabetes mellitus with diabetic neuropathic arthropathy Problems reviewed: Yes Code(s): E11.610 - TYPE 2 DIABETES MELLITUS W DIABETIC NEUROPATHIC ARTHROPATHY (2) CKD (chronic kidney disease) Problems reviewed: Yes Code(s): N18.9 - CHRONIC KIDNEY DISEASE, UNSPECIFIED (3) History of embolectomy Problems reviewed: Yes Code(s): Z98.890 - OTHER SPECIFIED POSTPROCEDURAL STATES (4) Ischemia of right lower extremity Problems reviewed: Yes Code(s): I99.8 - OTHER DISORDER OF CIRCULATORY SYSTEM (5) REBA (acute kidney injury) Code(s): N17.9 - ACUTE KIDNEY FAILURE, UNSPECIFIED (6) Accidental drug ingestion Problems reviewed: Yes Code(s): T50.901A - POISONING BY UNSP DRUG/MEDS/BIOL SUBST, ACCIDENTAL, INIT Qualifiers: Encounter type: subsequent encounter Qualified Code(s): T50.901D - Poisoning by unspecified drugs, medicaments and biological substances, accidental (unintentional), subsequent encounter (7) Acute hypoxemic respiratory failure Code(s): J96.01 - ACUTE RESPIRATORY FAILURE WITH HYPOXIA (8) Acute kidney injury superimposed on chronic kidney disease Code(s): N17.9 - ACUTE KIDNEY FAILURE, UNSPECIFIED; N18.9 - CHRONIC KIDNEY DISEASE, UNSPECIFIED (9) Controlled type 2 diabetes mellitus with diabetic peripheral angiopathy without gangrene, with long-term current use of insulin Code(s): E11.51 - TYPE 2 DIABETES W DIABETIC PERIPHERAL ANGIOPATH W/O GANGRENE; Z79.4 - INTERMEDIATE (CURRENT) USE OF INSULIN Assessment/Plan Current Active Problems CKD (chronic kidney disease) (Acute) Controlled type 2 diabetes mellitus with diabetic peripheral angiopathy without gangrene, with long-term current use of insulin (Acute) History of embolectomy (Acute) Ischemia of right lower extremity (Acute) Type 2 diabetes mellitus with diabetic neuropathic arthropathy (Acute) Abnormal Lab Results 07/30/19 07/30/19 08:06 08:06 WBC 11.9 H Hgb 9.7 L Hct 29.4 L D MCV 76.1 L MCH 25.1 L D RDW 22.8 H Chloride 110 H Anion Gap 5 L Calcium 8.2 L Magnesium 1.6 L AST 64 H Alkaline Phosphatase 173 H Total Protein 5.9 L Albumin 1.9 L Laboratory Results - last 24 hr 07/30/19 07/30/19 07/30/19 07:04 08:06 08:06 WBC 11.9 H RBC 3.86 Hgb 9.7 L Hct 29.4 L D MCV 76.1 L MCH 25.1 L D MCHC 32.9 RDW 22.8 H Plt Count 178 MPV 9.1 PTT (Actin FS) 35.3 Sodium Potassium Chloride Carbon Dioxide Anion Gap BUN Creatinine Est GFR (CKD-EPI)AfAm Est GFR (CKD-EPI)NonAf POC Glucometer 103 Random Glucose Calcium Magnesium Total Bilirubin AST ALT Alkaline Phosphatase Total Protein Albumin 07/30/19 07/30/19 07/30/19 08:06 11:27 22:18 WBC RBC Hgb Hct MCV MCH MCHC RDW Plt Count MPV PTT (Actin FS) Sodium 145 Potassium 3.5 Chloride 110 H Carbon Dioxide 29 Anion Gap 5 L BUN 8.6 Creatinine 0.9 Est GFR (CKD-EPI)AfAm 88.87 Est GFR (CKD-EPI)NonAf 76.68 POC Glucometer 217 195 Random Glucose 83 Calcium 8.2 L Magnesium 1.6 L Total Bilirubin 0.5 AST 64 H ALT 15 Alkaline Phosphatase 173 H Total Protein 5.9 L Albumin 1.9 L plan: levemir 40 units am levemir 15 units hs novolog achs coverage
[2019-07-30] MEDS: ATORVASTATIN CA 40 MG TABLET (FP) PO SCH (23:24)
[2019-07-30] MEDS: SENNOSIDES 8.6MG TABLET (FP) PO SCH (23:24)
[2019-07-30] MEDS: MAGNESIUM OXIDE 400 MG TABLET (FP) PO SCH (23:24)
[2019-07-31] MEDS: morphine SULFATE 4 MG/ML VIAL IVPUSH PRN ×5 (02:47→22:35)
[2019-07-31] MEDS: INSULIN (LEVEMIR) 100 UNITS/ML UNITS SQ SCH ×2 (06:44→22:30)
[2019-07-31] MEDS: PREGABALIN 50 MG CAPSULE PO SCH ×3 (06:44→22:28)
[2019-07-31] MEDS: INSULIN SLIDING SCALE (NOVOLOG) 1 VIAL SQ SCH ×4 (06:44→22:42)
[2019-07-31 09:01] LABS: HEMOGLOBIN 9.5 GM/dL (10.7-15.3); MCH 24.7 pg (25.7-33.7); MCHC 31.6 g/dl (32.0-36.0); MEAN CELL VOLUME 78.2 fl (80-96); MEAN PLT VOLUME 9.9 fl (7.5-11.1); PLATELET COUNT 182 K/MM3 (134-434); RBC 3.84 M/mm3 (3.60-5.2); RDW 22.8 % (11.6-15.6); WHITE BLOOD COUNT 12.4 K/mm3 (4.0-10.0)
--- NOTE | 2019-07-31 09:26 | PN ---
Progress Note, Physician - Current Medication List Current Medications: Active Medications Acetaminophen (Tylenol -) 1,000 mg PO Q6H PRN PRN Reason: PAIN LEVEL 1 - 3 Albuterol Sulfate (Ventolin 0.083% Nebulizer Soln -) 1 amp NEB RQID [facility] Aspirin (Asa -) 81 mg PO DAILY [facility] Atorvastatin Calcium (Lipitor -) 40 mg PO HS [facility] Last Admin: 07/30/19 23:24 Dose: 40 mg Budesonide (Pulmicort 0.25 Mg Nebulizer -) 1 amp NEB RBID [facility] Collagenase (Santyl -) 1 applic TP DAILY [facility]; Protocol Fentanyl (Sublimaze Injection -) 50 mcg IVPUSH [id number] PRN PRN Reason: PAIN-PACU ORDER X 4 DOSES ONLY Heparin Sodium (Porcine) (Heparin -) 1,000 unit IVPUSH PRN PRN PRN Reason: Heparin Heparin Sodium (Porcine) (Heparin -) 5,000 unit IVPUSH PRN PRN PRN Reason: Heparin Heparin Sodium/Dextrose (Heparin Infusion -) 25,000 units in 500 mls @ 23 mls/ hr IVPB TITR [facility]; Protocol Last Admin: 07/30/19 21:00 Dose: 0 mls Insulin Aspart (Novolog Vial Sliding Scale -) 1 vial SQ ACHS [facility]; Protocol Last Admin: 07/31/19 06:44 Dose: Not Given Insulin Detemir (Levemir Vial) 40 units SQ AM [facility] Last Admin: 07/31/19 06:44 Dose: Not Given Insulin Detemir (Levemir Vial) 15 units SQ HS [facility] Last Admin: 07/30/19 22:21 Dose: 15 units Lorazepam (Ativan -) 1 mg PO BID PRN PRN Reason: ANXIETY Magnesium Oxide (Mag-Ox -) 400 mg PO BID [facility] Last Admin: 07/30/19 23:24 Dose: 400 mg Morphine Sulfate (Morphine Sulfate) 4 mg IVPUSH Q3H PRN PRN Reason: PAIN LEVEL 7 - 10 Last Admin: 07/31/19 08:23 Dose: 4 mg Ondansetron HCl (Zofran Injection) 4 mg IVPUSH Q6H PRN PRN Reason: NAUSEA AND/OR VOMITING Oxycodone HCl (Roxicodone -) 5 mg PO Q4H PRN PRN Reason: PAIN LEVEL 4 - 6 Pantoprazole Sodium (Protonix -) 40 mg PO DAILY [facility] Polysaccharide Iron Complex (Niferex-150 -) 150 mg PO DAILY [facility] Pregabalin (Lyrica -) 150 mg PO TID [facility] Last Admin: 07/31/19 06:44 Dose: 150 mg Promethazine HCl (Phenergan Injection -) 12.5 mg IVPUSH Q6H PRN PRN Reason: NAUSEA-FOR RESCUE AFTER 15 MIN Senna (Senna -) 2 tab PO HS [facility] Last Admin: 07/30/19 23:24 Dose: 2 tab - Objective Vital Signs: Vital Signs Temperature 98.7 F 07/31/19 08:19 Pulse Rate 82 07/31/19 08:19 Respiratory Rate 16 07/31/19 08:19 Blood Pressure 116/69 07/31/19 08:19 O2 Sat by Pulse Oximetry (%) 100 07/31/19 03:14 Cardiovascular: Yes: S1, S2 Respiratory: Yes: Regular, CTA Bilaterally Gastrointestinal: Yes: Normal Bowel Sounds, Soft. No: Tenderness Extremities: Yes: Amputation, Other (warm) Edema: Yes Labs: CBC, BMP 07/31/19 08:20 INR, PTT INR 1.00 (0.83-1.09) 07/28/19 06:50 Assessment/Plan - Problems (1) CKD (chronic kidney disease) Assessment/Plan: -Cr improved -Continue IVF -Nephrology on board Problems reviewed: Yes Code(s): N18.9 - CHRONIC KIDNEY DISEASE, UNSPECIFIED (2) Ischemia of right lower extremity Assessment/Plan: -Seen by Vascular Sx -S/p embolectomy RLE -CTA:07/27/19:Occlusion of stenting and bypass graft on the left as discussed above with only collaterals from the pelvis filling branches of the deep femoral artery as described above. 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 Stenting within the iliofemoral noted on the right side. Occlusion of the common femoral artery distal to the stent is noted with pelvic collaterals filling a segmental branch of of the popliteal artery from just above the knee to below the knee with occlusion of this vessel. Thrombus proximal or distal cannot be excluded. Segmental filling of the posterior tibial artery was noted as discussed above. No pedal vessels were seen. Operative Date: 07/30/19 Pre-Operative Diagnosis: Rethrombosis of left leg arteries. Ischemic foot Operation: Angiogram right leg with infusion of TPA. Angioplasty of LOCKER PLANT ATTENDANT. Placement stent SFA Findings: Stenosis of mid SFA patent distal SFA,popliteal, proximal LOCKER PLANT ATTENDANT. Distal LOCKER PLANT ATTENDANT occlusion with patent vessels in foot. Patent peroneal to ankle. occlusion proximal AMELIA with distal reconstitution and DPA runoff. Implants: 6 x 40 LifeStent x 2 -Still on heparin drip -D/C heparin -Start Xarelto 2.5 mg po BID for PAD with aspirin 81 mg po daily Problems reviewed: Yes Code(s): I99.8 - OTHER DISORDER OF CIRCULATORY SYSTEM (3) Anemia Assessment/Plan: -multifactorial -Chronic -previously iron deficient -Already on Iron polysaccharide -dilutional vs acute blood loss -check stool OB -PRBC 1 U today Problems reviewed: Yes Code(s): D64.9 - ANEMIA, UNSPECIFIED Qualifiers: Anemia type: unspecified type Qualified Code(s): D64.9 - Anemia, unspecified (4) COPD (chronic obstructive pulmonary disease) Assessment/Plan: -Bronchodilators -Nasal O2 to keep SpO2>90% -Pulmonary consult Problems reviewed: Yes Code(s): J44.9 - CHRONIC OBSTRUCTIVE PULMONARY DISEASE, UNSPECIFIED (5) Diabetes mellitus Assessment/Plan: -A1c at 9.8 -Endocrine consult -BGM AC HS -Diabetic low sodium low cholesterol diet -ISS -Levemir increase to 40 U in AM and 15 U HS -Follow trend Problems reviewed: Yes Code(s): E11.9 - TYPE 2 DIABETES MELLITUS WITHOUT COMPLICATIONS (6) Elevated LFTs Assessment/Plan: -chronic -03/2019 U/S liver-->fatty infiltration Problems reviewed: Yes Code(s): R94.5 - ABNORMAL RESULTS OF LIVER FUNCTION STUDIES (7) Sacral decubitus ulcer Assessment/Plan: -Plastic surgery consult -turn q2h -offloading Problems reviewed: Yes Code(s): L89.159 - PRESSURE ULCER OF SACRAL REGION, UNSPECIFIED STAGE
[2019-07-31] MEDS ORDERED: PT OWN MED DRAWER 7, Y5N ONE ×2 (09:44→10:40)
[2019-07-31 09:51] LABS: ALBUMIN 1.9 g/dl (3.4-5.0); BILIRUBIN,TOTAL 0.3 mg/dL (0.2-1); BLOOD UREA NITROGEN 9.6 mg/dL (7-18); CALCIUM 7.8 mg/dL (8.5-10.1); CREATININE 1.1 mg/dL (0.55-1.3); MAGNESIUM 1.6 mg/dL (1.8-2.4); POTASSIUM 3.8 mmol/L (3.5-5.1); TOT PROT 5.9 g/dl (6.4-8.2)
[2019-07-31] MEDS: BUDESONIDE 0.25 MG/2ML INH SUSP VIAL NEB SCH ×2 (09:58→20:00)
[2019-07-31] MEDS: ALBUTEROL SO4 0.083% IH SOL 2.5 MG/3 ML VIAL.NEB. NEB SCH ×4 (09:58→20:00)
--- NOTE | 2019-07-31 10:35 | PN ---
Progress Note (short form) - Note Progress Note: S/p angioplasty tibial artery No new complaints. Foot feels the same. Right foot warm, no palpable pulse. Toes demarcating at tips. Incisions clean and dry Will resume Xarelto and D/C Heparin Discharge planning.
[2019-07-31] MEDS: IRON POLYSACCHARIDES 150 MG CAPSULE PO SCH (10:49)
[2019-07-31] MEDS: MAGNESIUM OXIDE 400 MG TABLET (FP) PO SCH ×2 (10:50→22:30)
[2019-07-31] MEDS: ASPIRIN 81 MG CHEWABLE TABLETS PO SCH (10:50)
[2019-07-31] MEDS: COLLAGENASE CLOSTRIDIUM HIST. 30 GRAMS TUBE TP SCH (10:50)
[2019-07-31] MEDS: PANTOPRAZOLE 40 MG TABLET (FP) PO SCH (10:50)
--- NOTE | 2019-07-31 11:24 | OP ---
DATE OF OPERATION: 07/27/2019 SURGEON: Walter Neil MD ENGLISH TEACHER: DEISI Chua PROCEDURE: Right femoral thromboembolectomy, right popliteal and tibial artery embolectomy with patch angioplasty. Angiogram of right lower extremity with infusion of tPA. PREOPERATIVE DIAGNOSIS: Occlusion of the right femoral, popliteal, and tibial arteries with ischemic foot. POSTOPERATIVE DIAGNOSIS: Occlusion of the right femoral, popliteal, and tibial arteries with ischemic foot. ANESTHESIA: General. ANESTHESIOLOGIST: Rober Cassidy MD OPERATIVE FINDINGS: There was fresh and subacute thrombus throughout the right femoral, popliteal, and tibial arteries. Angiography revealed evidence of moderate stenosis of the mid superficial femoral artery. Completion angiogram showed patent vessels down to the distal calf, where there were multiple collaterals off of the peroneal artery, which was patent. OPERATIVE PROCEDURE: Following routine patient identification, with side and site verification, general anesthesia was induced. The right leg, groin, and lower abdomen were prepped with ChloraPrep. Timeout was performed. Incision was made in the medial upper thigh over the superficial femoral artery, which had been mapped preoperatively with duplex imaging. Subsequently and muscle fascia were incised. The sartorius muscle was reflected laterally and the superficial femoral artery mobilized and secured with vessel loops. The patient was systemically heparinized. A transverse incision was made in the artery. A number 4 Josafat catheter was passed proximally, with removal of thrombus and caodaism of arterial inflow. A 7-Yoruba sheath was placed in the vessel and angiography was performed retrograde, showing a patent vessel with no evidence of retained thrombus. The vessel was filled with heparin solution and was occluded with a vascular clamp. Distal thrombectomy was then performed, with removal of thrombus from the distal femoral, popliteal, and proximal tibial arteries. There was caodaism of arterial backbleeding. Angiography showed patent femoral and popliteal arteries with occlusion of the tibial vessels. It was not felt that adequate thrombectomy could be performed in the tibial vessels through this approach. The arteriotomy was closed with running suture of 6-0 Prolene. The artery was released and Surgicel applied. Incision was then made on the medial aspect of the upper calf just behind the edge of the tibia. It was carried down to subcutaneous tissues, with care not to damage the saphenous vein. The muscle fascia was incised and the popliteal space was entered. The distal popliteal artery was mobilized and secured with a vessel loop. Distal dissection was performed, with ligation of the crossing veins. The anterior tibial artery was secured with a vessel loop. The tibioperoneal trunk was dissected down to its bifurcation, and the peroneal and posterior tibial arteries were individually secured. Side branches of the vessels were ligated with silk ties and divided. A longitudinal arteriotomy was then made in the popliteal artery just proximal to the takeoff of the anterior tibial. It was then extended distally and eventually into the proximal posterior tibial artery. Number 2 and number 3 Josafat catheters were used to remove thrombus from the peroneal and posterior tibial arteries with return of arterial backbleeding from both. The anterior tibial artery appeared to be occluded just distal to its origin. Proximal thrombectomy was also performed, with removal of additional thrombus and good pulsatile inflow. The vessels were filled with heparin solution and re-occluded. A bovine pericardial patch was then used to close the arteriotomy. Running sutures of 6-0 Prolene were used to sew the patch to the edges of the vessel. Prior to completion of the suture line, the vessels were allowed to backbleed and flush and the lumens filled with heparin solution. Suture line was completed and clamps were removed. Surgicel was applied to control bleeding from the suture line. Attention was returned to the thigh incision. A micropuncture needle was used to cannulate the superficial femoral artery distal to the arteriotomy, and completion angiography performed through this catheter. The catheter was removed and a mattress suture of 6-0 Prolene placed to control bleeding. When hemostasis was achieved, the wounds were closed using interrupted suture of 3-0 Vicryl on the subcutaneous tissues and skin manuel. A Elio-Richardson drain was placed in the calf incision and brought out through a separate stab wound and sutured to the skin with 3-0 nylon. Sterile dressings were applied and the patient was taken to the recovery room in stable condition. Sharath [id number]
[2019-07-31] MEDS: RIVAROXABAN 15 MG TABLET PO SCH ×2 (11:30→22:29)
[2019-07-31] MEDS ORDERED: INSULIN (NOVOLOG) ASPART 100 UNITS/ML 10ML VIAL ONE ×2 (11:38→21:05)
--- NOTE | 2019-07-31 11:53 | OP ---
DATE OF OPERATION: 07/30/2019 SURGEON: Walter Celeste M.D. VIDEO TAPE DUPLICATOR: Liseth Buenrostro PROCEDURE: Angiogram of the right lower extremity with infusion of TPA into the posterior tibial artery. Angioplasty of the posterior tibial artery. Placement of stent in the superficial femoral artery. PREOPERATIVE DIAGNOSIS: Re-thrombosis of the right leg tibial arteries with ischemia of the foot. POSTOPERATIVE DIAGNOSIS: Re-thrombosis of the right leg tibial arteries with ischemia of the foot. ANESTHESIA: General anesthesia. ANESTHESIOLOGIST: Rober Cassidy M.D. OPERATIVE FINDINGS: The patient was 3 days status post open thromboembolectomy of the right lower extremity and tibial arteries. The pulse became diminished several hours prior to operation and CT scan showed occlusion of the distal tibial arteries. At operation, angiography revealed stenosis in the mid superficial femoral artery with approximately 70% luminal narrowing. The site of previous popliteal thrombectomy was patent. The posterior tibial artery was occluded from the mid calf to the foot, where there was reconstitution of plantar vessels in view of patent peroneal artery. The anterior tibial artery was occluded with reconstitution of the dorsalis pedis artery. OPERATIVE PROCEDURE: Following routine patient identification with side and site verification, general anesthesia was induced. The right leg groin and foot were prepped with ChloraPrep. Timeout was performed. Using ultrasound guidance, the right proximal superficial femoral artery was identified and cannulated with micropuncture needle. A wire was advanced distally, and the needle exchanged for a 5 Nepali catheter. A stiff wire was passed to the catheter, and a 5 Nepali sheath placed into the vessel. The patient was systemically heparinized. Angiography was performed with the above noted findings. A wire and catheter were then advanced distally into the proximal posterior tibial artery. The wire and catheter were advanced to the foot, and the wire was able to be advanced through the plantar arch into the dorsalis pedis artery. Angiography through a catheter in the foot showed patent vessels with no evidence of progress. FLIGHT ATTENDANT/INFLIGHT SUPERVISOR was then infused from the infused from the distal posterior tibial artery to its origin with a total of approximately 7 mg placed into the vessel. This was allowed to sit in situ for 30 minutes. The vessel was reimaged and some increased flow was seen. A plan was made to use the AngioJet device to perform additional thrombectomy of the vessel, but the only catheter that would fit in the small tibial artery proved to be defective when hooked up to the AngioJet machine. Therefore, suction thrombectomy could not be performed, as there were no other devices or catheters available. A call was made to the apprenticeship training representative of the [employer], and he was not available to bring a new catheter emergently. Therefore, the posterior tibial artery was balloon angioplastied with a long, 2.5-mm balloon. Repeat imaging reveled patent flow down the artery with intact flow in the peroneal artery to the foot and what appeared to be improved flow into the dorsalis pedis artery of the foot. Attention was then returned to the thigh, where the stenosis of the superficial femoral artery was seen. This was balloon dilated with a 5-mm balloon with a little change in the appearance. Two 6-mm x 40-mm LifeStents were placed across the area of stenosis and post dilated with a 6-mm balloon at low pressure. Repeat imaging showed a patent vessel with no residual stenosis. Completion angiogram showed no evidence of distal embolization and flow into the posterior tibial artery was patent, although diminished. The sheath was then removed, and a Mynx device used to seal the arteriotomy. Sterile dressing was then applied, and the patient was taken to the recovery room in stable condition. WALTER CELESTE M.D. [id number]
[2019-07-31] MEDS ORDERED: MAGNESIUM SULF 50% (8.12 MEQ/2 ML-1 GM VIAL) IVPB ONE (18:39)
--- NOTE | 2019-07-31 18:42 | PN ---
Progress Note, Physician History of Present Illness: Pt seen and examined at bedside. She still has foot discomfort. She is under eval with vascular. - Current Medication List Current Medications: Active Medications Acetaminophen (Tylenol -) 1,000 mg PO Q6H PRN PRN Reason: PAIN LEVEL 1 - 3 Albuterol Sulfate (Ventolin 0.083% Nebulizer Soln -) 1 amp NEB RQID [facility] Last Admin: 07/31/19 16:30 Dose: Not Given Aspirin (Asa -) 81 mg PO DAILY [facility] Last Admin: 07/31/19 10:50 Dose: 81 mg Atorvastatin Calcium (Lipitor -) 40 mg PO HS [facility] Last Admin: 07/30/19 23:24 Dose: 40 mg Budesonide (Pulmicort 0.25 Mg Nebulizer -) 1 amp NEB RBID [facility] Last Admin: 07/31/19 09:58 Dose: 1 amp Collagenase (Santyl -) 1 applic TP DAILY [facility]; Protocol Last Admin: 07/31/19 10:50 Dose: 1 applic Fentanyl (Sublimaze Injection -) 50 mcg IVPUSH [id number] PRN PRN Reason: PAIN-PACU ORDER X 4 DOSES ONLY Insulin Aspart (Novolog Vial Sliding Scale -) 1 vial SQ ACHS [facility]; Protocol Last Admin: 07/31/19 16:56 Dose: 4 units Insulin Detemir (Levemir Vial) 40 units SQ AM [facility] Last Admin: 07/31/19 06:44 Dose: Not Given Insulin Detemir (Levemir Vial) 15 units SQ HS [facility] Last Admin: 07/30/19 22:21 Dose: 15 units Lorazepam (Ativan -) 1 mg PO BID PRN PRN Reason: ANXIETY Magnesium Oxide (Mag-Ox -) 400 mg PO BID [facility] Last Admin: 07/31/19 10:50 Dose: 400 mg Magnesium Sulfate (Magnesium Sulfate) 2 gm IVPB ONCE ONE Stop: 07/31/19 18:40 Morphine Sulfate (Morphine Sulfate) 4 mg IVPUSH Q3H PRN PRN Reason: PAIN LEVEL 7 - 10 Last Admin: 07/31/19 17:02 Dose: 4 mg Ondansetron HCl (Zofran Injection) 4 mg IVPUSH Q6H PRN PRN Reason: NAUSEA AND/OR VOMITING Oxycodone HCl (Roxicodone -) 5 mg PO Q4H PRN PRN Reason: PAIN LEVEL 4 - 6 Pantoprazole Sodium (Protonix -) 40 mg PO DAILY [facility] Last Admin: 07/31/19 10:50 Dose: 40 mg Polysaccharide Iron Complex (Niferex-150 -) 150 mg PO DAILY [facility] Last Admin: 07/31/19 10:49 Dose: 150 mg Pregabalin (Lyrica -) 150 mg PO TID [facility] Last Admin: 07/31/19 13:38 Dose: 150 mg Promethazine HCl (Phenergan Injection -) 12.5 mg IVPUSH Q6H PRN PRN Reason: NAUSEA-FOR RESCUE AFTER 15 MIN Rivaroxaban (Xarelto) 15 mg PO BID [facility] Last Admin: 07/31/19 11:30 Dose: 15 mg Senna (Senna -) 2 tab PO HS [facility] Last Admin: 07/30/19 23:24 Dose: 2 tab - Objective Vital Signs: Vital Signs Temperature 98.7 F 07/31/19 08:19 Pulse Rate 82 07/31/19 08:19 Respiratory Rate 16 07/31/19 08:19 Blood Pressure 116/69 07/31/19 08:19 O2 Sat by Pulse Oximetry (%) 100 07/31/19 09:00 Constitutional: Yes: Calm Eyes: Yes: Conjunctiva Clear HENT: Yes: Atraumatic Cardiovascular: Yes: S1, S2 Respiratory: Yes: CTA Bilaterally Gastrointestinal: Yes: Soft Genitourinary: Yes: WNL Musculoskeletal: Yes: WNL Edema: No Neurological: Yes: Oriented Psychiatric: Yes: Oriented Labs: CBC, BMP 07/31/19 08:20 07/31/19 08:20 INR, PTT INR 1.00 (0.83-1.09) 07/28/19 06:50 Problem List - Problems (1) CKD (chronic kidney disease) Code(s): N18.9 - CHRONIC KIDNEY DISEASE, UNSPECIFIED (2) Ischemia of right lower extremity Code(s): I99.8 - OTHER DISORDER OF CIRCULATORY SYSTEM Assessment/Plan Current Medications Generic Name Dose Route Start Last Admin Trade Name Freq PRN Reason Stop Dose Admin Acetaminophen 1,000 mg 07/30/19 20:18 Tylenol - PO Q6H PRN PAIN LEVEL 1 - 3 Albuterol Sulfate 1 amp 07/31/19 08:00 07/31/19 16:30 Ventolin 0.083% Nebulizer Soln - NEB Not Given RQID [facility] Aspirin 81 mg 07/31/19 10:00 07/31/19 10:50 Asa - PO 81 mg DAILY [facility] Administration Atorvastatin Calcium 40 mg 07/30/19 22:00 07/30/19 23:24 Lipitor - PO 40 mg HS [facility] Administration Budesonide 1 amp 07/31/19 08:00 07/31/19 09:58 Pulmicort 0.25 Mg Nebulizer - NEB 1 amp RBID [facility] Administration Collagenase 1 applic 07/31/19 10:00 07/31/19 10:50 Santyl - TP 1 applic DAILY [facility] Administration Protocol Fentanyl 50 mcg 07/30/19 20:18 Sublimaze Injection - IVPUSH [id number] PRN PAIN-PACU ORDER X 4 DOSES ONLY Insulin Aspart 1 vial 07/30/19 22:00 07/31/19 16:56 Novolog Vial Sliding Scale - SQ 4 units ACHS [facility] Administration Protocol Insulin Detemir 40 units 07/31/19 07:00 07/31/19 06:44 Levemir Vial SQ Not Given AM [facility] Insulin Detemir 15 units 07/30/19 22:00 07/30/19 22:21 Levemir Vial SQ 15 units HS [facility] Administration Lorazepam 1 mg 07/30/19 20:18 Ativan - PO BID PRN ANXIETY Magnesium Oxide 400 mg 07/30/19 22:00 07/31/19 10:50 Mag-Ox - PO 400 mg BID [facility] Administration Magnesium Sulfate 2 gm 07/31/19 18:39 Magnesium Sulfate IVPB 07/31/19 18:40 ONCE ONE Morphine Sulfate 4 mg 07/30/19 20:18 07/31/19 17:02 Morphine Sulfate IVPUSH 4 mg Q3H PRN Administration PAIN LEVEL 7 - 10 Ondansetron HCl 4 mg 07/30/19 19:43 Zofran Injection IVPUSH Q6H PRN NAUSEA AND/OR VOMITING Oxycodone HCl 5 mg 07/30/19 20:18 Roxicodone - PO Q4H PRN PAIN LEVEL 4 - 6 Pantoprazole Sodium 40 mg 07/31/19 10:00 07/31/19 10:50 Protonix - PO 40 mg DAILY [facility] Administration Polysaccharide Iron Complex 150 mg 07/31/19 10:00 07/31/19 10:49 Niferex-150 - PO 150 mg DAILY [facility] Administration Pregabalin 150 mg 07/30/19 22:00 07/31/19 13:38 Lyrica - PO 150 mg TID [facility] Administration Promethazine HCl 12.5 mg 07/30/19 19:43 Phenergan Injection - IVPUSH Q6H PRN NAUSEA-FOR RESCUE AFTER 15 MIN Rivaroxaban 15 mg 07/31/19 10:45 07/31/19 11:30 Xarelto PO 15 mg BID [facility] Administration Senna 2 tab 07/30/19 22:00 07/30/19 23:24 Senna - PO 2 tab HS [facility] Administration Impression 1. right leg ischemia 2. CKD 3. PVD 4. DM 5. protein s def 6. cad 7. hypomagnesemia Plan - monitor renal function - vascular input appreciated - replace mag - outpt follow up with Dr Gallegos for CKD - avoid nephrotoxins
[2019-07-31] MEDS: SENNOSIDES 8.6MG TABLET (FP) PO SCH (22:29)
[2019-07-31] MEDS: ATORVASTATIN CA 40 MG TABLET (FP) PO SCH (22:30)
[2019-08-01] MEDS: morphine SULFATE 4 MG/ML VIAL IVPUSH PRN ×4 (04:40→22:07)
[2019-08-01] MEDS: PREGABALIN 50 MG CAPSULE PO SCH ×3 (05:23→22:05)
[2019-08-01] MEDS: INSULIN SLIDING SCALE (NOVOLOG) 1 VIAL SQ SCH ×4 (06:25→22:07)
[2019-08-01] MEDS: INSULIN (LEVEMIR) 100 UNITS/ML UNITS SQ SCH ×2 (06:25→22:05)
[2019-08-01] MEDS: ALBUTEROL SO4 0.083% IH SOL 2.5 MG/3 ML VIAL.NEB. NEB SCH ×3 (07:55→21:21)
[2019-08-01] MEDS: BUDESONIDE 0.25 MG/2ML INH SUSP VIAL NEB SCH ×2 (08:45→21:21)
[2019-08-01] MEDS ORDERED: PT OWN MED DRAWER 7, Y5N ONE (08:49)
[2019-08-01] MEDS: PANTOPRAZOLE 40 MG TABLET (FP) PO SCH (11:11)
[2019-08-01] MEDS: IRON POLYSACCHARIDES 150 MG CAPSULE PO SCH (11:12)
[2019-08-01] MEDS: COLLAGENASE CLOSTRIDIUM HIST. 30 GRAMS TUBE TP SCH (11:12)
[2019-08-01] MEDS: MAGNESIUM OXIDE 400 MG TABLET (FP) PO SCH ×2 (11:12→22:05)
[2019-08-01] MEDS: ASPIRIN 81 MG CHEWABLE TABLETS PO SCH (11:12)
[2019-08-01] MEDS: RIVAROXABAN 15 MG TABLET PO SCH ×2 (11:12→22:05)
[2019-08-01] MEDS ORDERED: INSULIN (NOVOLOG) ASPART 100 UNITS/ML 10ML VIAL ONE ×2 (11:32→21:35)
--- NOTE | 2019-08-01 11:51 | PN ---
Progress Note (short form) - Note Progress Note: VASCULAR SURGERY - Dr. Neil POD #5 s/p Right femoral embolectomy. Right popliteal and tibial artery embolectomy, patch angioplasty. Angiogram POD #2 s/p Angiogram RLE w/ infusion of TPA. Angioplasty of AOC AIRSPACE CONTROL OFFICER. SFA stent No acute events over past 24 hours per RN notes. Alert. Resting in position of comfort. Heparin stopped and started on Xarelto yesterday. remains on ASA 81 mg daily as well. Afebrile. AVSS. PE RLE: groin stab incision is c/d/i. no hematoma. Medial thigh and calf incisions c/d/i (manuel). Foot is warm. no palpable pulse however has dopplerable AT/PT/ DP (which is new s/p 2nd procedure). Toes demarcating at tips. Problem List - Problems (1) Ischemia of right lower extremity Assessment/Plan: Cont ASA and Xarelto DC planning Code(s): I99.8 - OTHER DISORDER OF CIRCULATORY SYSTEM (2) Arterial occlusion Code(s): I74.9 - EMBOLISM AND THROMBOSIS OF UNSPECIFIED ARTERY (3) Asthma Code(s): J45.909 - UNSPECIFIED ASTHMA, UNCOMPLICATED (4) CAD (coronary artery disease) Code(s): I25.10 - ATHSCL HEART DISEASE OF [place] CORONARY ARTERY W/O ANG PCTRS (5) COPD (chronic obstructive pulmonary disease) Code(s): J44.9 - CHRONIC OBSTRUCTIVE PULMONARY DISEASE, UNSPECIFIED
--- NOTE | 2019-08-01 12:20 | PN ---
Progress Note, Physician Chief Complaint: RLE Pain History of Present Illness: Previous notes and events reviewed awake and alert NAD POD #2 s/p Angiogram RLE with infusion of TPA, Angioplasty of TPA, SFA stent POD #5 s/p R Femoral embolectomy, R popliteal and tibial artery embolectomy, patch angioplasty, angriogram R foot warm to touch, no palpable pulse, demarcated toes - Current Medication List Current Medications: Active Medications Acetaminophen (Tylenol -) 1,000 mg PO Q6H PRN PRN Reason: PAIN LEVEL 1 - 3 Albuterol Sulfate (Ventolin 0.083% Nebulizer Soln -) 1 amp NEB RQID [facility] Last Admin: 08/01/19 07:55 Dose: 1 amp Aspirin (Asa -) 81 mg PO DAILY [facility] Last Admin: 08/01/19 11:12 Dose: 81 mg Atorvastatin Calcium (Lipitor -) 40 mg PO HS [facility] Last Admin: 07/31/19 22:30 Dose: 40 mg Budesonide (Pulmicort 0.25 Mg Nebulizer -) 1 amp NEB RBID [facility] Last Admin: 08/01/19 08:45 Dose: 1 amp Collagenase (Santyl -) 1 applic TP DAILY [facility]; Protocol Last Admin: 08/01/19 11:12 Dose: 1 applic Fentanyl (Sublimaze Injection -) 50 mcg IVPUSH [id number] PRN PRN Reason: PAIN-PACU ORDER X 4 DOSES ONLY Insulin Aspart (Novolog Vial Sliding Scale -) 1 vial SQ ACHS [facility]; Protocol Last Admin: 08/01/19 11:47 Dose: 4 units Insulin Detemir (Levemir Vial) 40 units SQ AM [facility] Last Admin: 08/01/19 06:25 Dose: Not Given Insulin Detemir (Levemir Vial) 15 units SQ HS [facility] Last Admin: 07/31/19 22:30 Dose: 15 units Lorazepam (Ativan -) 1 mg PO BID PRN PRN Reason: ANXIETY Magnesium Oxide (Mag-Ox -) 400 mg PO BID [facility] Last Admin: 08/01/19 11:12 Dose: 400 mg Morphine Sulfate (Morphine Sulfate) 4 mg IVPUSH Q3H PRN PRN Reason: PAIN LEVEL 7 - 10 Last Admin: 08/01/19 11:14 Dose: 4 mg Ondansetron HCl (Zofran Injection) 4 mg IVPUSH Q6H PRN PRN Reason: NAUSEA AND/OR VOMITING Oxycodone HCl (Roxicodone -) 5 mg PO Q4H PRN PRN Reason: PAIN LEVEL 4 - 6 Pantoprazole Sodium (Protonix -) 40 mg PO DAILY [facility] Last Admin: 08/01/19 11:11 Dose: 40 mg Polysaccharide Iron Complex (Niferex-150 -) 150 mg PO DAILY [facility] Last Admin: 08/01/19 11:12 Dose: 150 mg Pregabalin (Lyrica -) 150 mg PO TID [facility] Last Admin: 08/01/19 05:23 Dose: 150 mg Promethazine HCl (Phenergan Injection -) 12.5 mg IVPUSH Q6H PRN PRN Reason: NAUSEA-FOR RESCUE AFTER 15 MIN Rivaroxaban (Xarelto) 15 mg PO BID [facility] Last Admin: 08/01/19 11:12 Dose: 15 mg Senna (Senna -) 2 tab PO HS [facility] Last Admin: 07/31/19 22:29 Dose: 2 tab - Objective Vital Signs: Vital Signs Temperature 98.7 F 08/01/19 00:00 Pulse Rate 86 08/01/19 00:00 Respiratory Rate 18 08/01/19 00:00 Blood Pressure 118/62 08/01/19 00:00 O2 Sat by Pulse Oximetry (%) 100 07/31/19 21:00 Constitutional: Yes: No Distress, Calm Eyes: Yes: Conjunctiva Clear HENT: Yes: Atraumatic Cardiovascular: Yes: Regular Rate and Rhythm Respiratory: Yes: Regular, CTA Bilaterally Gastrointestinal: Yes: Normal Bowel Sounds, Soft, Tenderness (diffuse) Musculoskeletal: Yes: Muscle Weakness Extremities: Yes: Other (L AKA) Integumentary: Yes: Pressure Ulcer, Other (demarcated R toes) Wound/Incision: Yes: [place] Intact, Open to air Neurological: Yes: Alert, Oriented Psychiatric: Yes: Alert, Oriented Labs: CBC, BMP 07/31/19 08:20 07/31/19 08:20 INR, PTT INR 1.00 (0.83-1.09) 07/28/19 06:50 Microbiology 07/28/19 16:00 Ulcer Gram Stain - Final 07/28/19 16:00 Ulcer Wound Culture - Preliminary Enterococcus Faecalis Staphylococcus Latex Coag Pos Problem List - Problems (1) Ischemia of right lower extremity Assessment/Plan: -Vascular on board -Xarelto and Aspirin -Lower Extremity CTA shows Occlusion of stenting and bypass graft on the left as discussed above with only collaterals from the pelvis filling branches of the deep femoral artery as described above. 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 Stenting within the iliofemoral noted on the right side. Occlusion of the common femoral artery distal to the stent is noted with pelvic collaterals filling a segmental branch of of the popliteal artery from just above the knee to below the knee with occlusion of this vessel. Thrombus proximal or distal cannot be excluded. Segmental filling of the posterior tibial artery was noted as discussed above. No pedal vessels were seen. -POD #2 s/p Angiogram RLE with infusion of TPA, Angioplasty of TPA, SFA stent- -POD #5 s/p R Femoral embolectomy, R popliteal and tibial artery embolectomy, patch angioplasty, angriogram Code(s): I99.8 - OTHER DISORDER OF CIRCULATORY SYSTEM (2) Anemia Assessment/Plan: -Hg 9.5 -monitor Hg daily -transfuse for Hg <7.0 to avoid fluid overload -anemia profile -Iron Polysaccharide Code(s): D64.9 - ANEMIA, UNSPECIFIED Qualifiers: Anemia type: unspecified type Qualified Code(s): D64.9 - Anemia, unspecified (3) COPD (chronic obstructive pulmonary disease) Assessment/Plan: -Pulm on board -Bronchodilators -keep SpO2 >90% -O2 via NC -Pulmicort Code(s): J44.9 - CHRONIC OBSTRUCTIVE PULMONARY DISEASE, UNSPECIFIED (4) Chronic kidney disease (CKD) Assessment/Plan: -Renal on board -BUN/Cr 9.6/1.1 Code(s): N18.9 - CHRONIC KIDNEY DISEASE, UNSPECIFIED (5) Diabetes mellitus Assessment/Plan: -BGM ACHS -ISS -Levemir BID -HgA1c 9.6% -Endocrinology consult Code(s): E11.9 - TYPE 2 DIABETES MELLITUS WITHOUT COMPLICATIONS (6) GERD (gastroesophageal reflux disease) Assessment/Plan: -Pantoprazole Code(s): K21.9 - GASTRO-ESOPHAGEAL REFLUX DISEASE WITHOUT ESOPHAGITIS (7) HLD (hyperlipidemia) Assessment/Plan: -Atorvastatin Code(s): E78.5 - HYPERLIPIDEMIA, UNSPECIFIED Qualifiers: (8) Pressure ulcer of sacral region, stage 4 Assessment/Plan: -Plastic surgery consult -turn q2h -offloading -wound culture positive -Prosource -plastic surgery recommend wound vac Code(s): L89.154 - PRESSURE ULCER OF SACRAL REGION, STAGE 4 Assessment/Plan see problem list
--- NOTE | 2019-08-01 13:29 | PN ---
Progress Note, Physician History of Present Illness: Pt seen and examined at bedside. She is awake and alert. She denies dysuria or hematuria. - Current Medication List Current Medications: Active Medications Acetaminophen (Tylenol -) 1,000 mg PO Q6H PRN PRN Reason: PAIN LEVEL 1 - 3 Albuterol Sulfate (Ventolin 0.083% Nebulizer Soln -) 1 amp NEB RQID [facility] Last Admin: 08/01/19 07:55 Dose: 1 amp Amino Acids (Prosource No Carb Liquid Pkt) 30 ml PO BID@0800,1730 [facility] Aspirin (Asa -) 81 mg PO DAILY [facility] Last Admin: 08/01/19 11:12 Dose: 81 mg Atorvastatin Calcium (Lipitor -) 40 mg PO HS [facility] Last Admin: 07/31/19 22:30 Dose: 40 mg Budesonide (Pulmicort 0.25 Mg Nebulizer -) 1 amp NEB RBID [facility] Last Admin: 08/01/19 08:45 Dose: 1 amp Collagenase (Santyl -) 1 applic TP DAILY [facility]; Protocol Last Admin: 08/01/19 11:12 Dose: 1 applic Fentanyl (Sublimaze Injection -) 50 mcg IVPUSH [id number] PRN PRN Reason: PAIN-PACU ORDER X 4 DOSES ONLY Insulin Aspart (Novolog Vial Sliding Scale -) 1 vial SQ ACHS [facility]; Protocol Last Admin: 08/01/19 11:47 Dose: 4 units Insulin Detemir (Levemir Vial) 40 units SQ AM [facility] Last Admin: 08/01/19 06:25 Dose: Not Given Insulin Detemir (Levemir Vial) 15 units SQ HS [facility] Last Admin: 07/31/19 22:30 Dose: 15 units Lorazepam (Ativan -) 1 mg PO BID PRN PRN Reason: ANXIETY Magnesium Oxide (Mag-Ox -) 400 mg PO BID [facility] Last Admin: 08/01/19 11:12 Dose: 400 mg Morphine Sulfate (Morphine Sulfate) 4 mg IVPUSH Q3H PRN PRN Reason: PAIN LEVEL 7 - 10 Last Admin: 08/01/19 11:14 Dose: 4 mg Ondansetron HCl (Zofran Injection) 4 mg IVPUSH Q6H PRN PRN Reason: NAUSEA AND/OR VOMITING Oxycodone HCl (Roxicodone -) 5 mg PO Q4H PRN PRN Reason: PAIN LEVEL 4 - 6 Pantoprazole Sodium (Protonix -) 40 mg PO DAILY [facility] Last Admin: 08/01/19 11:11 Dose: 40 mg Polysaccharide Iron Complex (Niferex-150 -) 150 mg PO DAILY [facility] Last Admin: 08/01/19 11:12 Dose: 150 mg Pregabalin (Lyrica -) 150 mg PO TID [facility] Last Admin: 08/01/19 05:23 Dose: 150 mg Promethazine HCl (Phenergan Injection -) 12.5 mg IVPUSH Q6H PRN PRN Reason: NAUSEA-FOR RESCUE AFTER 15 MIN Rivaroxaban (Xarelto) 15 mg PO BID [facility] Last Admin: 08/01/19 11:12 Dose: 15 mg Senna (Senna -) 2 tab PO HS [facility] Last Admin: 07/31/19 22:29 Dose: 2 tab - Objective Vital Signs: Vital Signs Temperature 98.7 F 08/01/19 00:00 Pulse Rate 86 08/01/19 00:00 Respiratory Rate 18 08/01/19 00:00 Blood Pressure 118/62 08/01/19 00:00 O2 Sat by Pulse Oximetry (%) 100 07/31/19 21:00 Constitutional: Yes: Calm Eyes: Yes: Conjunctiva Clear HENT: Yes: Atraumatic Neck: Yes: Supple Cardiovascular: Yes: S1, S2 Respiratory: Yes: CTA Bilaterally Gastrointestinal: Yes: Soft Genitourinary: Yes: WNL Musculoskeletal: Yes: Other (left bka) Edema: RLE: 1+ Neurological: Yes: Oriented Psychiatric: Yes: Oriented Labs: CBC, BMP 07/31/19 08:20 07/31/19 08:20 INR, PTT INR 1.00 (0.83-1.09) 07/28/19 06:50 Problem List - Problems (1) CKD (chronic kidney disease) Code(s): N18.9 - CHRONIC KIDNEY DISEASE, UNSPECIFIED (2) Ischemia of right lower extremity Code(s): I99.8 - OTHER DISORDER OF CIRCULATORY SYSTEM Assessment/Plan Current Medications Generic Name Dose Route Start Last Admin Trade Name Freq PRN Reason Stop Dose Admin Acetaminophen 1,000 mg 07/30/19 20:18 Tylenol - PO Q6H PRN PAIN LEVEL 1 - 3 Albuterol Sulfate 1 amp 07/31/19 08:00 08/01/19 07:55 Ventolin 0.083% Nebulizer Soln - NEB 1 amp RQID [facility] Administration Amino Acids 30 ml 08/01/19 17:30 Prosource No Carb Liquid Pkt PO BID@0800,1730 [facility] Aspirin 81 mg 07/31/19 10:00 08/01/19 11:12 Asa - PO 81 mg DAILY [facility] Administration Atorvastatin Calcium 40 mg 07/30/19 22:00 07/31/19 22:30 Lipitor - PO 40 mg HS [facility] Administration Budesonide 1 amp 07/31/19 08:00 08/01/19 08:45 Pulmicort 0.25 Mg Nebulizer - NEB 1 amp RBID [facility] Administration Collagenase 1 applic 07/31/19 10:00 08/01/19 11:12 Santyl - TP 1 applic DAILY [facility] Administration Protocol Fentanyl 50 mcg 07/30/19 20:18 Sublimaze Injection - IVPUSH [id number] PRN PAIN-PACU ORDER X 4 DOSES ONLY Insulin Aspart 1 vial 07/30/19 22:00 08/01/19 11:47 Novolog Vial Sliding Scale - SQ 4 units ACHS [facility] Administration Protocol Insulin Detemir 40 units 07/31/19 07:00 08/01/19 06:25 Levemir Vial SQ Not Given AM [facility] Insulin Detemir 15 units 07/30/19 22:00 07/31/19 22:30 Levemir Vial SQ 15 units HS [facility] Administration Lorazepam 1 mg 07/30/19 20:18 Ativan - PO BID PRN ANXIETY Magnesium Oxide 400 mg 07/30/19 22:00 08/01/19 11:12 Mag-Ox - PO 400 mg BID [facility] Administration Morphine Sulfate 4 mg 07/30/19 20:18 08/01/19 11:14 Morphine Sulfate IVPUSH 4 mg Q3H PRN Administration PAIN LEVEL 7 - 10 Ondansetron HCl 4 mg 07/30/19 19:43 Zofran Injection IVPUSH Q6H PRN NAUSEA AND/OR VOMITING Oxycodone HCl 5 mg 07/30/19 20:18 Roxicodone - PO Q4H PRN PAIN LEVEL 4 - 6 Pantoprazole Sodium 40 mg 07/31/19 10:00 08/01/19 11:11 Protonix - PO 40 mg DAILY [facility] Administration Polysaccharide Iron Complex 150 mg 07/31/19 10:00 08/01/19 11:12 Niferex-150 - PO 150 mg DAILY [facility] Administration Pregabalin 150 mg 07/30/19 22:00 08/01/19 05:23 Lyrica - PO 150 mg TID [facility] Administration Promethazine HCl 12.5 mg 07/30/19 19:43 Phenergan Injection - IVPUSH Q6H PRN NAUSEA-FOR RESCUE AFTER 15 MIN Rivaroxaban 15 mg 07/31/19 10:45 08/01/19 11:12 Xarelto PO 15 mg BID [facility] Administration Senna 2 tab 07/30/19 22:00 07/31/19 22:29 Senna - PO 2 tab HS [facility] Administration Impression 1. right leg ischemia 2. CKD 3. PVD 4. DM 5. protein s def 6. cad 7. hypomagnesemia Plan - discussed with vascular - no acute change in management from renal perspective - will follow PRN - replace mag - outpt follow up with Dr Gallegos for CKD - avoid nephrotoxins
--- NOTE | 2019-08-01 16:34 | PN ---
Progress Note (short form) - Note Progress Note: ID CONSULT DICTATED LEUKOCYTOSIS + WOUND C/S ISCHEMIC LIMB AUGMENTIN 875MG PO BID X 7D
[2019-08-01] MEDS: AMINO ACIDS/PROTEIN HYDROLYS 30 ML LIQUID.PKT PO SCH (16:49)
[2019-08-01] MEDS: AMOX TR/POT CLAV 875MG/125MG TABLETS (FP) PO SCH (17:02)
--- NOTE | 2019-08-01 17:32 | CONS ---
DATE OF CONSULTATION: DATE OF DICTATION: 08/01/2019 The patient is a 44-year-old female with a history of peripheral vascular disease, diabetes mellitus, sacral decubitus ulcer, evaluated for leukocytosis and positive wound culture. She was admitted to the hospital on July 27, 2019, with right foot pain. She was found to have ischemic changes of the distal right lower extremity. She was started on IV heparin as the patient had a right femoral embolectomy performed on July 27, 2019. Her postoperative was complicated by re-thrombosis. She received tPA, angioplasty, and a stent. She now has a worsening leukocytosis with a white count of 12.4. She also has a chronic sacral decubitus ulcer from which there was some drainage present and cultures growing Staph aureus and enterococcus. She is afebrile. She has no complaints of pain in the sacrum or in the lower extremities. PAST MEDICAL HISTORY: Positive for diabetes mellitus, hypertension, hyperlipidemia, stroke, coronary artery disease, chronic kidney disease, COPD. PAST SURGICAL HISTORY: Status post left AKA. ALLERGIES: No known allergies. MEDICATIONS: Include Tylenol, albuterol, aspirin, Lipitor, insulin. SOCIAL HISTORY: Resides at home. Former smoker. REVIEW OF SYSTEMS: Neurologic: No loss of consciousness, seizure activity, focal weakness. Cardiac: Negative chest pain or palpitations. Respiratory: Negative cough or sputum production. Gastrointestinal: Negative vomiting or diarrhea. Genitourinary: Negative for urinary tract infection. LABORATORY DATA: White count 12.4, hematocrit 30.0, platelets 182, creatinine 1.1. Urine culture growing enterococcus and Staph aureus. PHYSICAL EXAMINATION: General: She is awake and alert. She is not acutely toxic appearing. Vital Signs: Temperature 98.2, blood pressure 109/62, pulse 86, regular. Respirations 18 per minute. HEENT: Sclerae are anicteric. Cardiovascular: Heart sounds S1, S2. Lungs: Clear. Abdomen: Soft and nontender. Extremities: Status post left lower extremity amputation. There are surgical manuel present in the right lower extremity. There is mild diffuse swelling of the right lower extremity from the thigh to the foot, with hyperemia and cyanosis present distally. Skin: There is a sacral decubitus ulcer with granulation tissue. There is scant serous malodorous drainage. IMPRESSION: 1. Leukocytosis. 2. Positive wound culture. 3. Ischemic limb. 4. Sacral decubitus ulcer. Advised antibiotic treatment with Augmentin 875 mg p.o. b.i.d. for 7 days, local wound care. Thank you for the kind referral. MARCELA NICHOLS M.D. [id number]
[2019-08-01] MEDS: SENNOSIDES 8.6MG TABLET (FP) PO SCH (22:05)
[2019-08-01] MEDS: ATORVASTATIN CA 40 MG TABLET (FP) PO SCH (22:05)
[2019-08-02] MEDS: morphine SULFATE 4 MG/ML VIAL IVPUSH PRN ×5 (02:59→20:47)
[2019-08-02] MEDS: PREGABALIN 50 MG CAPSULE PO SCH ×3 (05:37→22:29)
[2019-08-02] MEDS: INSULIN (LEVEMIR) 100 UNITS/ML UNITS SQ SCH ×2 (06:28→22:30)
[2019-08-02] MEDS: INSULIN SLIDING SCALE (NOVOLOG) 1 VIAL SQ SCH ×4 (06:30→22:30)
[2019-08-02] MEDS ORDERED: INSULIN (NOVOLOG) ASPART 100 UNITS/ML 10ML VIAL ONE (06:39)
[2019-08-02] MEDS: ALBUTEROL SO4 0.083% IH SOL 2.5 MG/3 ML VIAL.NEB. NEB SCH ×4 (08:40→20:50)
[2019-08-02] MEDS: BUDESONIDE 0.25 MG/2ML INH SUSP VIAL NEB SCH ×3 (08:40→20:50)
[2019-08-02] MEDS ORDERED: PT OWN MED DRAWER 7, Y5N ONE ×2 (09:37→11:14)
[2019-08-02] MEDS: PANTOPRAZOLE 40 MG TABLET (FP) PO SCH (09:39)
[2019-08-02] MEDS: MAGNESIUM OXIDE 400 MG TABLET (FP) PO SCH ×2 (09:39→22:30)
[2019-08-02] MEDS: AMOX TR/POT CLAV 875MG/125MG TABLETS (FP) PO SCH ×2 (09:39→17:04)
[2019-08-02] MEDS: RIVAROXABAN 15 MG TABLET PO SCH ×2 (09:39→22:30)
[2019-08-02] MEDS: AMINO ACIDS/PROTEIN HYDROLYS 30 ML LIQUID.PKT PO SCH ×2 (09:40→17:04)
[2019-08-02] MEDS: ASPIRIN 81 MG CHEWABLE TABLETS PO SCH (09:40)
[2019-08-02] MEDS: IRON POLYSACCHARIDES 150 MG CAPSULE PO SCH (09:40)
--- NOTE | 2019-08-02 11:01 | PN ---
Progress Note, Physician - Current Medication List Current Medications: Active Medications Acetaminophen (Tylenol -) 1,000 mg PO Q6H PRN PRN Reason: PAIN LEVEL 1 - 3 Albuterol Sulfate (Ventolin 0.083% Nebulizer Soln -) 1 amp NEB RQID [facility] Last Admin: 08/02/19 08:40 Dose: Not Given Amino Acids (Prosource No Carb Liquid Pkt) 30 ml PO BID@0800,1730 [facility] Last Admin: 08/02/19 09:40 Dose: 30 ml Amoxicillin/Clavulanate Potassium (Augmentin - 875mg Tablet) 1 tab PO BID@0800, 1730 [facility] Last Admin: 08/02/19 09:39 Dose: 1 tab Aspirin (Asa -) 81 mg PO DAILY [facility] Last Admin: 08/02/19 09:40 Dose: 81 mg Atorvastatin Calcium (Lipitor -) 40 mg PO HS [facility] Last Admin: 08/01/19 22:05 Dose: 40 mg Budesonide (Pulmicort 0.25 Mg Nebulizer -) 1 amp NEB RBID [facility] Last Admin: 08/02/19 08:40 Dose: Not Given Collagenase (Santyl -) 1 applic TP DAILY [facility]; Protocol Last Admin: 08/01/19 11:12 Dose: 1 applic Fentanyl (Sublimaze Injection -) 50 mcg IVPUSH [id number] PRN PRN Reason: PAIN-PACU ORDER X 4 DOSES ONLY Insulin Aspart (Novolog Vial Sliding Scale -) 1 vial SQ [facility]; Protocol Last Admin: 08/02/19 06:30 Dose: 3 units Insulin Detemir (Levemir Vial) 40 units SQ AM [facility] Last Admin: 08/02/19 06:28 Dose: 40 units Insulin Detemir (Levemir Vial) 15 units SQ HS [facility] Last Admin: 08/01/19 22:05 Dose: 15 units Lorazepam (Ativan -) 1 mg PO BID PRN PRN Reason: ANXIETY Magnesium Oxide (Mag-Ox -) 400 mg PO BID [facility] Last Admin: 08/02/19 09:39 Dose: 400 mg Morphine Sulfate (Morphine Sulfate) 4 mg IVPUSH Q3H PRN PRN Reason: PAIN LEVEL 7 - 10 Last Admin: 08/02/19 08:06 Dose: 4 mg Ondansetron HCl (Zofran Injection) 4 mg IVPUSH Q6H PRN PRN Reason: NAUSEA AND/OR VOMITING Oxycodone HCl (Roxicodone -) 5 mg PO Q4H PRN PRN Reason: PAIN LEVEL 4 - 6 Pantoprazole Sodium (Protonix -) 40 mg PO DAILY [facility] Last Admin: 08/02/19 09:39 Dose: 40 mg Polyethylene Glycol (Miralax (For Daily Use) -) 17 gm PO DAILY [facility] Polysaccharide Iron Complex (Niferex-150 -) 150 mg PO DAILY [facility] Last Admin: 08/02/19 09:40 Dose: 150 mg Pregabalin (Lyrica -) 150 mg PO TID [facility] Last Admin: 08/02/19 05:37 Dose: 150 mg Promethazine HCl (Phenergan Injection -) 12.5 mg IVPUSH Q6H PRN PRN Reason: NAUSEA-FOR RESCUE AFTER 15 MIN Rivaroxaban (Xarelto) 15 mg PO BID [facility] Last Admin: 08/02/19 09:39 Dose: 15 mg - Objective Vital Signs: Vital Signs Temperature 98.2 F 08/02/19 10:51 Pulse Rate 61 08/02/19 10:51 Respiratory Rate 18 08/02/19 10:51 Blood Pressure 130/68 08/02/19 10:51 O2 Sat by Pulse Oximetry (%) 96 08/02/19 08:48 Cardiovascular: Yes: S1, S2 Respiratory: Yes: Regular, CTA Bilaterally Gastrointestinal: Yes: Normal Bowel Sounds, Soft Extremities: Yes: Delayed Capillary Refill (tip of toe with discoloration) Labs: CBC, BMP 07/31/19 08:20 07/31/19 08:20 INR, PTT INR 1.00 (0.83-1.09) 07/28/19 06:50 Assessment/Plan - Problems (1) CKD (chronic kidney disease) Assessment/Plan: -Cr improved -Continue IVF -Nephrology on board Problems reviewed: Yes Code(s): N18.9 - CHRONIC KIDNEY DISEASE, UNSPECIFIED (2) Ischemia of right lower extremity Assessment/Plan: -Seen by Vascular Sx -S/p embolectomy RLE -CTA:07/27/19:Occlusion of stenting and bypass graft on the left as discussed above with only collaterals from the pelvis filling branches of the deep femoral artery as described above. 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 Stenting within the iliofemoral noted on the right side. Occlusion of the common femoral artery distal to the stent is noted with pelvic collaterals filling a segmental branch of of the popliteal artery from just above the knee to below the knee with occlusion of this vessel. Thrombus proximal or distal cannot be excluded. Segmental filling of the posterior tibial artery was noted as discussed above. No pedal vessels were seen. Operative Date: 07/30/19 Pre-Operative Diagnosis: Rethrombosis of left leg arteries. Ischemic foot Operation: Angiogram right leg with infusion of TPA. Angioplasty of FEEDER WORKER POWER UNIT OPERATOR. Placement stent SFA Findings: Stenosis of mid SFA patent distal SFA,popliteal, proximal FEEDER WORKER POWER UNIT OPERATOR. Distal FEEDER WORKER POWER UNIT OPERATOR occlusion with patent vessels in foot. Patent peroneal to ankle. occlusion proximal AMELIA with distal reconstitution and DPA runoff. Implants: 6 x 40 LifeStent x 2 -Start Xarelto 2.5 mg po BID for PAD with aspirin 81 mg po daily Problems reviewed: Yes Code(s): I99.8 - OTHER DISORDER OF CIRCULATORY SYSTEM (3) Anemia Assessment/Plan: -multifactorial -Chronic -previously iron deficient -Already on Iron polysaccharide -dilutional vs acute blood loss -check stool OB -PRBC 1 U today Problems reviewed: Yes Code(s): D64.9 - ANEMIA, UNSPECIFIED Qualifiers: Anemia type: unspecified type Qualified Code(s): D64.9 - Anemia, unspecified (4) COPD (chronic obstructive pulmonary disease) Assessment/Plan: -Bronchodilators -Nasal O2 to keep SpO2>90% -Pulmonary consult Problems reviewed: Yes Code(s): J44.9 - CHRONIC OBSTRUCTIVE PULMONARY DISEASE, UNSPECIFIED (5) Diabetes mellitus Assessment/Plan: -A1c at 9.8 -Endocrine consult -BGM AC HS -Diabetic low sodium low cholesterol diet -ISS -Levemir increase to 40 U in AM and 15 U HS -Follow trend Problems reviewed: Yes Code(s): E11.9 - TYPE 2 DIABETES MELLITUS WITHOUT COMPLICATIONS (6) Elevated LFTs Assessment/Plan: -chronic -03/2019 U/S liver-->fatty infiltration Problems reviewed: Yes Code(s): R94.5 - ABNORMAL RESULTS OF LIVER FUNCTION STUDIES (7) Sacral decubitus ulcer Assessment/Plan: -Plastic surgery consult -turn q2h -offloading Problems reviewed: Yes Code(s): L89.159 - PRESSURE ULCER OF SACRAL REGION, UNSPECIFIED STAGE
[2019-08-02] MEDS: COLLAGENASE CLOSTRIDIUM HIST. 30 GRAMS TUBE TP SCH (13:07)
[2019-08-02] MEDS: POLYETHYLENE GLYCOL 3350 119 GM BTL PO SCH (13:08)
[2019-08-02 13:45] VITALS: BMI 28.5
--- NOTE | 2019-08-02 21:29 | PN ---
Progress Note, Physician Chief Complaint: has pain in leg severe - Current Medication List Current Medications: Active Medications Acetaminophen (Tylenol -) 1,000 mg PO Q6H PRN PRN Reason: PAIN LEVEL 1 - 3 Albuterol Sulfate (Ventolin 0.083% Nebulizer Soln -) 1 amp NEB RQID [facility] Last Admin: 08/02/19 20:50 Dose: 1 amp Amino Acids (Prosource No Carb Liquid Pkt) 30 ml PO BID@0800,1730 [facility] Last Admin: 08/02/19 17:04 Dose: 30 ml Amoxicillin/Clavulanate Potassium (Augmentin - 875mg Tablet) 1 tab PO BID@0800, 1730 [facility] Last Admin: 08/02/19 17:04 Dose: 1 tab Aspirin (Asa -) 81 mg PO DAILY [facility] Last Admin: 08/02/19 09:40 Dose: 81 mg Atorvastatin Calcium (Lipitor -) 40 mg PO HS [facility] Last Admin: 08/01/19 22:05 Dose: 40 mg Budesonide (Pulmicort 0.25 Mg Nebulizer -) 1 amp NEB RBID [facility] Last Admin: 08/02/19 20:50 Dose: 1 amp Collagenase (Santyl -) 1 applic TP DAILY [facility]; Protocol Last Admin: 08/02/19 13:07 Dose: 1 applic Fentanyl (Sublimaze Injection -) 50 mcg IVPUSH [id number] PRN PRN Reason: PAIN-PACU ORDER X 4 DOSES ONLY Insulin Aspart (Novolog Vial Sliding Scale -) 1 vial SQ ACHS [facility]; Protocol Last Admin: 08/02/19 17:25 Dose: 3 units Insulin Detemir (Levemir Vial) 40 units SQ AM [facility] Last Admin: 08/02/19 06:28 Dose: 40 units Insulin Detemir (Levemir Vial) 15 units SQ HS [facility] Last Admin: 08/01/19 22:05 Dose: 15 units Lorazepam (Ativan -) 1 mg PO BID PRN PRN Reason: ANXIETY Magnesium Oxide (Mag-Ox -) 400 mg PO BID [facility] Last Admin: 08/02/19 09:39 Dose: 400 mg Morphine Sulfate (Morphine Sulfate) 4 mg IVPUSH Q3H PRN PRN Reason: PAIN LEVEL 7 - 10 Last Admin: 08/02/19 20:47 Dose: 4 mg Ondansetron HCl (Zofran Injection) 4 mg IVPUSH Q6H PRN PRN Reason: NAUSEA AND/OR VOMITING Oxycodone HCl (Roxicodone -) 5 mg PO Q4H PRN PRN Reason: PAIN LEVEL 4 - 6 Pantoprazole Sodium (Protonix -) 40 mg PO DAILY [facility] Last Admin: 08/02/19 09:39 Dose: 40 mg Polyethylene Glycol (Miralax (For Daily Use) -) 17 gm PO DAILY [facility] Last Admin: 08/02/19 13:08 Dose: Not Given Polysaccharide Iron Complex (Niferex-150 -) 150 mg PO DAILY [facility] Last Admin: 08/02/19 09:40 Dose: 150 mg Pregabalin (Lyrica -) 150 mg PO TID [facility] Last Admin: 08/02/19 15:05 Dose: 150 mg Promethazine HCl (Phenergan Injection -) 12.5 mg IVPUSH Q6H PRN PRN Reason: NAUSEA-FOR RESCUE AFTER 15 MIN Rivaroxaban (Xarelto) 15 mg PO BID [facility] Last Admin: 08/02/19 09:39 Dose: 15 mg - Objective Vital Signs: Vital Signs Temperature 99.0 F 08/02/19 15:03 Pulse Rate 79 08/02/19 15:03 Respiratory Rate 18 08/02/19 15:03 Blood Pressure 103/62 08/02/19 15:03 O2 Sat by Pulse Oximetry (%) 96 08/02/19 08:48 Constitutional: Yes: Anxious Eyes: Yes: EOM Intact HENT: Yes: Normocephalic Neck: Yes: Trachea Midline Cardiovascular: Yes: Regular Rate and Rhythm Respiratory: Yes: CTA Bilaterally Gastrointestinal: Yes: Normal Bowel Sounds ...Rectal Exam: Yes: Deferred Musculoskeletal: Yes: Joint Stiffness, Muscle Pain, Muscle Weakness Extremities: Yes: Delayed Capillary Refill Integumentary: Yes: Onychomycosis Neurological: Yes: Alert, Oriented Labs: CBC, BMP 07/31/19 08:20 07/31/19 08:20 INR, PTT INR 1.00 (0.83-1.09) 07/28/19 06:50 Problem List - Problems (1) Type 2 diabetes mellitus with diabetic neuropathic arthropathy Code(s): E11.610 - TYPE 2 DIABETES MELLITUS W DIABETIC NEUROPATHIC ARTHROPATHY (2) CKD (chronic kidney disease) Code(s): N18.9 - CHRONIC KIDNEY DISEASE, UNSPECIFIED (3) History of embolectomy Code(s): Z98.890 - OTHER SPECIFIED POSTPROCEDURAL STATES (4) Ischemia of right lower extremity Code(s): I99.8 - OTHER DISORDER OF CIRCULATORY SYSTEM (5) REBA (acute kidney injury) Code(s): N17.9 - ACUTE KIDNEY FAILURE, UNSPECIFIED (6) Accidental drug ingestion Code(s): T50.901A - POISONING BY UNSP DRUG/MEDS/BIOL SUBST, ACCIDENTAL, INIT Qualifiers: Encounter type: subsequent encounter Qualified Code(s): T50.901D - Poisoning by unspecified drugs, medicaments and biological substances, accidental (unintentional), subsequent encounter (7) Acute hypoxemic respiratory failure Code(s): J96.01 - ACUTE RESPIRATORY FAILURE WITH HYPOXIA (8) Acute kidney injury superimposed on chronic kidney disease Code(s): N17.9 - ACUTE KIDNEY FAILURE, UNSPECIFIED; N18.9 - CHRONIC KIDNEY DISEASE, UNSPECIFIED (9) Controlled type 2 diabetes mellitus with diabetic peripheral angiopathy without gangrene, with long-term current use of insulin Code(s): E11.51 - TYPE 2 DIABETES W DIABETIC PERIPHERAL ANGIOPATH W/O GANGRENE; Z79.4 - PRISON (CURRENT) USE OF INSULIN Assessment/Plan Current Active Problems CKD (chronic kidney disease) (Acute) Controlled type 2 diabetes mellitus with diabetic peripheral angiopathy without gangrene, with long-term current use of insulin (Acute) History of embolectomy (Acute) Ischemia of right lower extremity (Acute) Type 2 diabetes mellitus with diabetic neuropathic arthropathy (Acute) Laboratory Results - last 24 hr 08/01/19 08/02/19 08/02/19 21:23 05:55 12:14 POC Glucometer 238 179 183 08/02/19 16:56 POC Glucometer 182 plan: bgm qid novolog scale coverage levemir 40 units am levemir 15 units hs
[2019-08-02] MEDS: ATORVASTATIN CA 40 MG TABLET (FP) PO SCH (22:30)
[2019-08-03] MEDS: morphine SULFATE 4 MG/ML VIAL IVPUSH PRN ×5 (02:30→19:58)
[2019-08-03] MEDS: PREGABALIN 50 MG CAPSULE PO SCH ×3 (06:03→21:39)
[2019-08-03] MEDS: INSULIN (LEVEMIR) 100 UNITS/ML UNITS SQ SCH ×2 (06:04→21:39)
[2019-08-03] MEDS: INSULIN SLIDING SCALE (NOVOLOG) 1 VIAL SQ SCH ×4 (06:04→21:39)
[2019-08-03] MEDS: BUDESONIDE 0.25 MG/2ML INH SUSP VIAL NEB SCH (07:25)
[2019-08-03] MEDS: ALBUTEROL SO4 0.083% IH SOL 2.5 MG/3 ML VIAL.NEB. NEB SCH ×4 (07:25→20:40)
[2019-08-03] MEDS: MAGNESIUM OXIDE 400 MG TABLET (FP) PO SCH ×2 (09:27→21:38)
[2019-08-03] MEDS: PANTOPRAZOLE 40 MG TABLET (FP) PO SCH (09:27)
[2019-08-03] MEDS: RIVAROXABAN 15 MG TABLET PO SCH ×2 (09:27→21:39)
[2019-08-03] MEDS: AMOX TR/POT CLAV 875MG/125MG TABLETS (FP) PO SCH ×2 (09:28→17:02)
[2019-08-03] MEDS: POLYETHYLENE GLYCOL 3350 119 GM BTL PO SCH (09:28)
[2019-08-03] MEDS: AMINO ACIDS/PROTEIN HYDROLYS 30 ML LIQUID.PKT PO SCH ×2 (09:28→17:02)
[2019-08-03] MEDS: COLLAGENASE CLOSTRIDIUM HIST. 30 GRAMS TUBE TP SCH (09:28)
[2019-08-03] MEDS: IRON POLYSACCHARIDES 150 MG CAPSULE PO SCH (09:28)
[2019-08-03] MEDS: ASPIRIN 81 MG CHEWABLE TABLETS PO SCH (09:31)
--- NOTE | 2019-08-03 12:22 | PN ---
Progress Note, Physician - Current Medication List Current Medications: Active Medications Acetaminophen (Tylenol -) 1,000 mg PO Q6H PRN PRN Reason: PAIN LEVEL 1 - 3 Albuterol Sulfate (Ventolin 0.083% Nebulizer Soln -) 1 amp NEB RQID [facility] Last Admin: 08/03/19 11:20 Dose: Not Given Amino Acids (Prosource No Carb Liquid Pkt) 30 ml PO BID@0800,1730 [facility] Last Admin: 08/03/19 09:28 Dose: 30 ml Amoxicillin/Clavulanate Potassium (Augmentin - 875mg Tablet) 1 tab PO BID@0800, 1730 [facility] Last Admin: 08/03/19 09:28 Dose: 1 tab Aspirin (Asa -) 81 mg PO DAILY [facility] Last Admin: 08/03/19 09:31 Dose: 81 mg Atorvastatin Calcium (Lipitor -) 40 mg PO HS [facility] Last Admin: 08/02/19 22:30 Dose: 40 mg Budesonide (Pulmicort 0.25 Mg Nebulizer -) 1 amp NEB RBID [facility] Last Admin: 08/03/19 07:25 Dose: Not Given Collagenase (Santyl -) 1 applic TP DAILY [facility]; Protocol Last Admin: 08/03/19 09:28 Dose: 1 applic Fentanyl (Sublimaze Injection -) 50 mcg IVPUSH [id number] PRN PRN Reason: PAIN-PACU ORDER X 4 DOSES ONLY Insulin Aspart (Novolog Vial Sliding Scale -) 1 vial SQ [facility]; Protocol Last Admin: 08/03/19 11:53 Dose: 3 units Insulin Detemir (Levemir Vial) 40 units SQ AM [facility] Last Admin: 08/03/19 06:04 Dose: Not Given Insulin Detemir (Levemir Vial) 15 units SQ HS [facility] Last Admin: 08/02/19 22:30 Dose: 15 units Lorazepam (Ativan -) 1 mg PO BID PRN PRN Reason: ANXIETY Magnesium Oxide (Mag-Ox -) 400 mg PO BID [facility] Last Admin: 08/03/19 09:27 Dose: 400 mg Morphine Sulfate (Morphine Sulfate) 4 mg IVPUSH Q3H PRN PRN Reason: PAIN LEVEL 7 - 10 Last Admin: 08/03/19 10:44 Dose: 4 mg Ondansetron HCl (Zofran Injection) 4 mg IVPUSH Q6H PRN PRN Reason: NAUSEA AND/OR VOMITING Oxycodone HCl (Roxicodone -) 5 mg PO Q4H PRN PRN Reason: PAIN LEVEL 4 - 6 Pantoprazole Sodium (Protonix -) 40 mg PO DAILY [facility] Last Admin: 08/03/19 09:27 Dose: 40 mg Polyethylene Glycol (Miralax (For Daily Use) -) 17 gm PO DAILY [facility] Last Admin: 08/03/19 09:28 Dose: Not Given Polysaccharide Iron Complex (Niferex-150 -) 150 mg PO DAILY [facility] Last Admin: 08/03/19 09:28 Dose: 150 mg Pregabalin (Lyrica -) 150 mg PO TID [facility] Last Admin: 08/03/19 06:03 Dose: 150 mg Promethazine HCl (Phenergan Injection -) 12.5 mg IVPUSH Q6H PRN PRN Reason: NAUSEA-FOR RESCUE AFTER 15 MIN Rivaroxaban (Xarelto) 15 mg PO BID [facility] Last Admin: 08/03/19 09:27 Dose: 15 mg - Objective Vital Signs: Vital Signs Temperature 98.8 F 08/03/19 08:52 Pulse Rate 88 08/03/19 08:52 Respiratory Rate 18 08/03/19 08:52 Blood Pressure 93/55 L 08/03/19 08:52 O2 Sat by Pulse Oximetry (%) 96 08/03/19 08:50 Cardiovascular: Yes: S1, S2 Respiratory: Yes: Regular, CTA Bilaterally Gastrointestinal: Yes: Normal Bowel Sounds, Soft Extremities: Yes: Other (leg warm discolarationn of toe) Labs: CBC, BMP 07/31/19 08:20 07/31/19 08:20 INR, PTT INR 1.00 (0.83-1.09) 07/28/19 06:50 Assessment/Plan - Problems (1) CKD (chronic kidney disease) Assessment/Plan: -Cr improved -Nephrology on board Problems reviewed: Yes Code(s): N18.9 - CHRONIC KIDNEY DISEASE, UNSPECIFIED (2) Ischemia of right lower extremity Assessment/Plan: -Seen by Vascular Sx -S/p embolectomy RLE -CTA:07/27/19:Occlusion of stenting and bypass graft on the left as discussed above with only collaterals from the pelvis filling branches of the deep femoral artery as described above. 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 Stenting within the iliofemoral noted on the right side. Occlusion of the common femoral artery distal to the stent is noted with pelvic collaterals filling a segmental branch of of the popliteal artery from just above the knee to below the knee with occlusion of this vessel. Thrombus proximal or distal cannot be excluded. Segmental filling of the posterior tibial artery was noted as discussed above. No pedal vessels were seen. Operative Date: 07/30/19 Pre-Operative Diagnosis: Rethrombosis of left leg arteries. Ischemic foot Operation: Angiogram right leg with infusion of TPA. Angioplasty of CLINICAL DATA MANAGEMENT MANAGER. Placement stent SFA Findings: Stenosis of mid SFA patent distal SFA,popliteal, proximal CLINICAL DATA MANAGEMENT MANAGER. Distal CLINICAL DATA MANAGEMENT MANAGER occlusion with patent vessels in foot. Patent peroneal to ankle. occlusion proximal AMELIA with distal reconstitution and DPA runoff. Implants: 6 x 40 LifeStent x 2 -on Xarelto 15 mg po BID for PAD with aspirin 81 mg po daily Problems reviewed: Yes Code(s): I99.8 - OTHER DISORDER OF CIRCULATORY SYSTEM (3) Anemia Assessment/Plan: -multifactorial -Chronic -previously iron deficient -Already on Iron polysaccharide -dilutional vs acute blood loss -check stool OB -s/p PRBC Problems reviewed: Yes Code(s): D64.9 - ANEMIA, UNSPECIFIED Qualifiers: Anemia type: unspecified type Qualified Code(s): D64.9 - Anemia, unspecified (4) COPD (chronic obstructive pulmonary disease) Assessment/Plan: -Bronchodilators -Nasal O2 to keep SpO2>90% -Pulmonary consult Problems reviewed: Yes Code(s): J44.9 - CHRONIC OBSTRUCTIVE PULMONARY DISEASE, UNSPECIFIED (5) Diabetes mellitus Assessment/Plan: -A1c at 9.8 -Endocrine consult -BGM AC HS -Diabetic low sodium low cholesterol diet -ISS -Levemir increase to 40 U in AM and 15 U HS -Follow trend Problems reviewed: Yes Code(s): E11.9 - TYPE 2 DIABETES MELLITUS WITHOUT COMPLICATIONS (6) Elevated LFTs Assessment/Plan: -chronic -03/2019 U/S liver-->fatty infiltration Problems reviewed: Yes Code(s): R94.5 - ABNORMAL RESULTS OF LIVER FUNCTION STUDIES (7) Sacral decubitus ulcer Assessment/Plan: -Plastic surgery consult -turn q2h -offloading Problems reviewed: Yes Code(s): L89.159 - PRESSURE ULCER OF SACRAL REGION, UNSPECIFIED STAGE
[2019-08-03] MEDS: ATORVASTATIN CA 40 MG TABLET (FP) PO SCH (21:39)
[2019-08-04] MEDS: morphine SULFATE 4 MG/ML VIAL IVPUSH PRN ×5 (00:56→21:12)
[2019-08-04] MEDS: INSULIN (LEVEMIR) 100 UNITS/ML UNITS SQ SCH ×2 (06:29→22:06)
[2019-08-04] MEDS: PREGABALIN 50 MG CAPSULE PO SCH ×3 (06:29→22:07)
[2019-08-04] MEDS: INSULIN SLIDING SCALE (NOVOLOG) 1 VIAL SQ SCH ×4 (06:29→22:07)
[2019-08-04] MEDS ORDERED: INSULIN (NOVOLOG) ASPART 100 UNITS/ML 10ML VIAL ONE ×2 (06:56→12:33)
[2019-08-04] MEDS: BUDESONIDE 0.25 MG/2ML INH SUSP VIAL NEB SCH ×3 (07:35→21:36)
[2019-08-04] MEDS: ALBUTEROL SO4 0.083% IH SOL 2.5 MG/3 ML VIAL.NEB. NEB SCH ×5 (07:40→21:37)
[2019-08-04] MEDS: AMOX TR/POT CLAV 875MG/125MG TABLETS (FP) PO SCH ×2 (09:45→17:15)
[2019-08-04] MEDS: AMINO ACIDS/PROTEIN HYDROLYS 30 ML LIQUID.PKT PO SCH ×2 (09:45→17:15)
[2019-08-04] MEDS: LORazepam 1 MG TABLET PO PRN (10:41)
[2019-08-04] MEDS: RIVAROXABAN 15 MG TABLET PO SCH ×2 (10:41→22:07)
[2019-08-04] MEDS: IRON POLYSACCHARIDES 150 MG CAPSULE PO SCH (10:41)
[2019-08-04] MEDS: MAGNESIUM OXIDE 400 MG TABLET (FP) PO SCH ×2 (10:41→22:07)
[2019-08-04] MEDS: ASPIRIN 81 MG CHEWABLE TABLETS PO SCH (10:41)
[2019-08-04] MEDS: oxyCODONE HCL 5 MG TABLET PO PRN ×2 (10:41→20:34)
[2019-08-04] MEDS: PANTOPRAZOLE 40 MG TABLET (FP) PO SCH (10:42)
[2019-08-04] MEDS ORDERED: PT OWN MED DRAWER 7, Y5N ONE (11:25)
[2019-08-04] MEDS: COLLAGENASE CLOSTRIDIUM HIST. 30 GRAMS TUBE TP SCH (11:43)
[2019-08-04] MEDS: POLYETHYLENE GLYCOL 3350 119 GM BTL PO SCH (11:43)
--- NOTE | 2019-08-04 11:53 | PN ---
Progress Note, Physician Chief Complaint: RLE Pain History of Present Illness: Previous notes and events reviewed awake and alert NAD s/p Angiogram RLE with infusion of TPA, Angioplasty of TPA, SFA stent s/p R Femoral embolectomy, R popliteal and tibial artery embolectomy, patch angioplasty, angriogram R foot warm to touch, no palpable pulse but present via doppler, demarcated toes complain of RLE pain-Vascular US able to wiggle toes and mild sensation present - Current Medication List Current Medications: Active Medications Acetaminophen (Tylenol -) 1,000 mg PO Q6H PRN PRN Reason: PAIN LEVEL 1 - 3 Albuterol Sulfate (Ventolin 0.083% Nebulizer Soln -) 1 amp NEB RQID [facility] Last Admin: 08/04/19 07:45 Dose: 1 amp Amino Acids (Prosource No Carb Liquid Pkt) 30 ml PO BID@0800,1730 [facility] Last Admin: 08/04/19 09:45 Dose: 30 ml Amoxicillin/Clavulanate Potassium (Augmentin - 875mg Tablet) 1 tab PO BID@0800, 1730 [facility] Last Admin: 08/04/19 09:45 Dose: 1 tab Aspirin (Asa -) 81 mg PO DAILY [facility] Last Admin: 08/04/19 10:41 Dose: 81 mg Atorvastatin Calcium (Lipitor -) 40 mg PO HS [facility] Last Admin: 08/03/19 21:39 Dose: 40 mg Budesonide (Pulmicort 0.25 Mg Nebulizer -) 1 amp NEB RBID [facility] Last Admin: 08/04/19 08:18 Dose: Not Given Collagenase (Santyl -) 1 applic TP DAILY [facility]; Protocol Last Admin: 08/04/19 11:43 Dose: 1 applic Fentanyl (Sublimaze Injection -) 50 mcg IVPUSH [id number] PRN PRN Reason: PAIN-PACU ORDER X 4 DOSES ONLY Insulin Aspart (Novolog Vial Sliding Scale -) 1 vial SQ ACHS [facility]; Protocol Last Admin: 08/04/19 06:29 Dose: Not Given Insulin Detemir (Levemir Vial) 40 units SQ AM [facility] Last Admin: 08/04/19 06:29 Dose: Not Given Insulin Detemir (Levemir Vial) 15 units SQ HS [facility] Last Admin: 08/03/19 21:39 Dose: 15 units Lorazepam (Ativan -) 1 mg PO BID PRN PRN Reason: ANXIETY Last Admin: 08/04/19 10:41 Dose: 1 mg Magnesium Oxide (Mag-Ox -) 400 mg PO BID [facility] Last Admin: 08/04/19 10:41 Dose: 400 mg Morphine Sulfate (Morphine Sulfate) 4 mg IVPUSH Q3H PRN PRN Reason: PAIN LEVEL 7 - 10 Last Admin: 08/04/19 11:42 Dose: 4 mg Ondansetron HCl (Zofran Injection) 4 mg IVPUSH Q6H PRN PRN Reason: NAUSEA AND/OR VOMITING Oxycodone HCl (Roxicodone -) 5 mg PO Q4H PRN PRN Reason: PAIN LEVEL 4 - 6 Last Admin: 08/04/19 10:41 Dose: 5 mg Pantoprazole Sodium (Protonix -) 40 mg PO DAILY [facility] Last Admin: 08/04/19 10:42 Dose: 40 mg Polyethylene Glycol (Miralax (For Daily Use) -) 17 gm PO DAILY [facility] Last Admin: 08/04/19 11:43 Dose: Not Given Polysaccharide Iron Complex (Niferex-150 -) 150 mg PO DAILY [facility] Last Admin: 08/04/19 10:41 Dose: 150 mg Pregabalin (Lyrica -) 150 mg PO TID [facility] Last Admin: 08/04/19 06:29 Dose: 150 mg Promethazine HCl (Phenergan Injection -) 12.5 mg IVPUSH Q6H PRN PRN Reason: NAUSEA-FOR RESCUE AFTER 15 MIN Rivaroxaban (Xarelto) 15 mg PO BID [facility] Last Admin: 08/04/19 10:41 Dose: 15 mg - Objective Vital Signs: Vital Signs Temperature 95.7 F L 08/04/19 06:05 Pulse Rate 75 08/04/19 06:05 Respiratory Rate 20 08/04/19 06:05 Blood Pressure 126/67 08/04/19 06:05 O2 Sat by Pulse Oximetry (%) 96 08/03/19 08:50 Constitutional: Yes: No Distress, Calm Eyes: Yes: Conjunctiva Clear HENT: Yes: Atraumatic Cardiovascular: Yes: Regular Rate and Rhythm Respiratory: Yes: Regular, CTA Bilaterally Gastrointestinal: Yes: Normal Bowel Sounds, Soft Musculoskeletal: Yes: Muscle Weakness Extremities: Yes: Other (L AKA) Edema: Yes Edema: RLE: 2+ Integumentary: Yes: Other (demarcated discoloration R toes) Wound/Incision: Yes: [place] Intact, Open to air Neurological: Yes: Alert, Oriented Psychiatric: Yes: Alert, Oriented Labs: CBC, BMP 07/31/19 08:20 07/31/19 08:20 INR, PTT INR 1.00 (0.83-1.09) 07/28/19 06:50 Problem List - Problems (1) Ischemia of right lower extremity Assessment/Plan: -Vascular on board -Xarelto and Aspirin -Lower Extremity CTA shows Occlusion of stenting and bypass graft on the left as discussed above with only collaterals from the pelvis filling branches of the deep femoral artery as described above. 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 Stenting within the iliofemoral noted on the right side. Occlusion of the common femoral artery distal to the stent is noted with pelvic collaterals filling a segmental branch of of the popliteal artery from just above the knee to below the knee with occlusion of this vessel. Thrombus proximal or distal cannot be excluded. Segmental filling of the posterior tibial artery was noted as discussed above. No pedal vessels were seen. -s/p Angiogram RLE with infusion of TPA, Angioplasty of TPA, SFA stent- -s/p R Femoral embolectomy, R popliteal and tibial artery embolectomy, patch angioplasty, angriogram Code(s): I99.8 - OTHER DISORDER OF CIRCULATORY SYSTEM (2) Anemia Assessment/Plan: -Hg 9.5 -monitor Hg daily -transfuse for Hg <7.0 to avoid fluid overload -anemia profile -Iron Polysaccharide Code(s): D64.9 - ANEMIA, UNSPECIFIED Qualifiers: Anemia type: unspecified type Qualified Code(s): D64.9 - Anemia, unspecified (3) COPD (chronic obstructive pulmonary disease) Assessment/Plan: -Pulm on board -Bronchodilators -keep SpO2 >90% -O2 via NC -Pulmicort Code(s): J44.9 - CHRONIC OBSTRUCTIVE PULMONARY DISEASE, UNSPECIFIED (4) Chronic kidney disease (CKD) Assessment/Plan: -Renal on board -BUN/Cr 9.6/1.1 -resolved Code(s): N18.9 - CHRONIC KIDNEY DISEASE, UNSPECIFIED (5) Diabetes mellitus Assessment/Plan: -BGM ACHS -ISS -Levemir BID -HgA1c 9.6% -Endocrinology consult Code(s): E11.9 - TYPE 2 DIABETES MELLITUS WITHOUT COMPLICATIONS (6) GERD (gastroesophageal reflux disease) Assessment/Plan: -Pantoprazole Code(s): K21.9 - GASTRO-ESOPHAGEAL REFLUX DISEASE WITHOUT ESOPHAGITIS (7) HLD (hyperlipidemia) Assessment/Plan: -Atorvastatin Code(s): E78.5 - HYPERLIPIDEMIA, UNSPECIFIED Qualifiers: (8) Pressure ulcer of sacral region, stage 4 Assessment/Plan: -Plastic surgery consult -turn q2h -offloading -wound culture positive -Augmentin BID -Prosource -plastic surgery recommend wound vac Code(s): L89.154 - PRESSURE ULCER OF SACRAL REGION, STAGE 4 Assessment/Plan see problem list
--- NOTE | 2019-08-04 12:04 | PN ---
Progress Note (short form) - Note Progress Note: S/p Right femoral embolectomy. Right popliteal and tibial artery embolectomy, patch angioplasty. Angiogram on 07/27 S/p Angiogram RLE w/ infusion of TPA. Angioplasty of PARTS COUNTER REPRESENTATIVE. SFA stent on 07/30 Pt seen and examined. Reports she continues to have significant pain in her leg. Improved with new pain regimen. Has not been able to work with PT. No issues over the weekend. Reports improved sensation in foot. Denies cp/sob, n/v/ d. Vital Signs Temp 95.7 F L 08/04/19 06:05 Pulse 75 08/04/19 06:05 Resp 20 08/04/19 06:05 BP 126/67 08/04/19 06:05 Pulse Ox 96 08/03/19 08:50 Intake & Output 08/03/19 08/04/19 08/04/19 23:59 11:59 23:59 Intake Total 650 Balance 650 Weight 151 lb 4 oz Intake: Oral 650 Other: Voiding Method Incontinent Incontinent # Unmeasured Voids Muro 2 Void 2 Bowel Movement Yes Weight Measurement Method Built in [facility] CBC, BMP 07/31/19 08:20 07/31/19 08:20 Gen: awake, alert, nad Resp: Unlabored on RA Ext: L aka intact with no open wounds. RLE with ecchymosis/gangrene of toes, No open ulcers. +ttp. Foot with 2+ pitting edema. Calf with +edema, compartments sot. Incisions x 2 c/d/i with manuel in place. No erythema or drainage. Able to wiggle toes slightly, able to dorsi/plantarflex foot slightly Vasc: biphasic dp/pt RLE A/P: 44 y/o F w/ PMHX PAD, s/p left aka, DM, HLD, HTN, CVA, admitted 07/26 with severe RLE pain/discoloration x 1 day, found to have patent right iliac stent with no flow in the proximal SFA and no flow in calf, now s/p S/p Right femoral embolectomy. Right popliteal and tibial artery embolectomy, patch angioplasty. Angiogram on 07/27 S/p Angiogram RLE w/ infusion of TPA. Angioplasty of PARTS COUNTER REPRESENTATIVE. SFA stent on 07/30. Afebrile, vss Pulses present via doppler, foot demarcating, no clinical signs of infection. -Continue Xarelto/ASA -PT -Continue neurovascular checks -Discharge planning message sent to Dr Neil regarding above
[2019-08-04] MEDS: ATORVASTATIN CA 40 MG TABLET (FP) PO SCH (22:06)
[2019-08-05] MEDS: morphine SULFATE 4 MG/ML VIAL IVPUSH PRN ×6 (00:13→19:05)
[2019-08-05] MEDS: PREGABALIN 50 MG CAPSULE PO SCH ×3 (06:36→22:13)
[2019-08-05] MEDS: INSULIN (LEVEMIR) 100 UNITS/ML UNITS SQ SCH ×2 (06:36→22:12)
[2019-08-05] MEDS: INSULIN SLIDING SCALE (NOVOLOG) 1 VIAL SQ SCH ×4 (06:36→22:13)
[2019-08-05] MEDS ORDERED: INSULIN (NOVOLOG) ASPART 100 UNITS/ML 10ML VIAL ONE ×5 (06:44→19:02)
[2019-08-05] MEDS: ALBUTEROL SO4 0.083% IH SOL 2.5 MG/3 ML VIAL.NEB. NEB SCH ×4 (07:25→20:15)
[2019-08-05] MEDS: BUDESONIDE 0.25 MG/2ML INH SUSP VIAL NEB SCH ×2 (07:25→20:10)
[2019-08-05] MEDS ORDERED: PT OWN MED DRAWER 7, Y5N ONE ×2 (07:29→20:23)
[2019-08-05] MEDS: AMINO ACIDS/PROTEIN HYDROLYS 30 ML LIQUID.PKT PO SCH ×2 (07:40→17:30)
[2019-08-05] MEDS: AMOX TR/POT CLAV 875MG/125MG TABLETS (FP) PO SCH ×2 (07:46→17:30)
[2019-08-05 08:41] LABS: HEMATOCRIT 27.2 % (32.4-45.2); HEMOGLOBIN 8.7 GM/dL (10.7-15.3); MEAN CELL VOLUME 78.3 fl (80-96); MEAN PLT VOLUME 9.9 fl (7.5-11.1); PLATELET COUNT 350 K/MM3 (134-434); RBC 3.48 M/mm3 (3.60-5.2); RDW 23.4 % (11.6-15.6); WHITE BLOOD COUNT 9.8 K/mm3 (4.0-10.0)
--- NOTE | 2019-08-05 08:59 | PN ---
Progress Note (short form) - Note Progress Note: S/p Right femoral embolectomy. Right popliteal and tibial artery embolectomy, patch angioplasty. Angiogram on 07/27 S/p Angiogram RLE w/ infusion of TPA. Angioplasty of SEXUAL ASSAULT COUNSELLOR. SFA stent on 07/30 Pt seen and examined. Reports she continues to have significant pain in her leg. Improved with new pain regimen. Has not been able to work with PT. No issues over the weekend. Reports improved sensation in foot. Denies cp/sob, n/v/ d. Vital Signs Temp 98.5 F 08/05/19 05:00 Pulse 77 08/05/19 05:00 Resp 20 08/05/19 05:00 BP 100/63 08/05/19 05:00 Pulse Ox 94 L 08/04/19 09:00 Intake & Output 08/04/19 08/04/19 08/05/19 11:59 23:59 11:59 Intake Total 230 Balance 230 Weight 151 lb 4 oz 152 lb Intake: IV 30 Saline Lock 30 Oral 200 Other: Voiding Method Incontinent Incontinent # Unmeasured Voids Muro 2 Void 2 2 Bowel Movement No Weight Measurement Method Built in [facility] Built in [facility] CBC, BMP 08/05/19 07:30 Gen: awake, alert, nad Resp: Unlabored on RA Ext: L aka intact with no open wounds. RLE with ecchymosis/gangrene of toes, No open ulcers. +ttp. Foot with 2+ pitting edema. Calf with +edema, compartments sot. Incisions x 2 c/d/i with manuel in place. No erythema or drainage. Able to wiggle toes slightly, able to dorsi/plantarflex foot slightly Vasc: biphasic dp/pt RLE A/P: 44 y/o F w/ PMHX PAD, s/p left aka, DM, HLD, HTN, CVA, admitted 07/26 with severe RLE pain/discoloration x 1 day, found to have patent right iliac stent with no flow in the proximal SFA and no flow in calf, now s/p S/p Right femoral embolectomy. Right popliteal and tibial artery embolectomy, patch angioplasty. Angiogram on 07/27 S/p Angiogram RLE w/ infusion of TPA. Angioplasty of SEXUAL ASSAULT COUNSELLOR. SFA stent on 07/30. Afebrile, vss Pulses present via doppler, foot demarcating, no clinical signs of infection. -Continue Xarelto/ASA -PT -Continue neurovascular checks -Discharge planning message sent to Dr Neil regarding above
[2019-08-05] MEDS ORDERED: FENTANYL PATCH WASTE TD PRN (09:33)
[2019-08-05] MEDS ORDERED: NALOXONE HCL 0.4 MG/ML VIAL IVPUSH ONE (09:42)
[2019-08-05] MEDS: LORazepam 1 MG TABLET PO PRN ×2 (09:45→22:14)
[2019-08-05] MEDS ORDERED: fentaNYL 25mcg/hr PATCH.TD72 TD SCH (09:45)
[2019-08-05] MEDS: ASPIRIN 81 MG CHEWABLE TABLETS PO SCH (09:45)
[2019-08-05] MEDS: RIVAROXABAN 15 MG TABLET PO SCH ×2 (09:45→22:14)
[2019-08-05] MEDS: MAGNESIUM OXIDE 400 MG TABLET (FP) PO SCH ×2 (09:45→22:13)
[2019-08-05] MEDS: PANTOPRAZOLE 40 MG TABLET (FP) PO SCH (09:45)
[2019-08-05] MEDS: IRON POLYSACCHARIDES 150 MG CAPSULE PO SCH (09:45)
[2019-08-05] MEDS: COLLAGENASE CLOSTRIDIUM HIST. 30 GRAMS TUBE TP SCH (09:46)
[2019-08-05] MEDS: POLYETHYLENE GLYCOL 3350 119 GM BTL PO SCH ×2 (09:47→22:13)
[2019-08-05 10:13] LABS: BLOOD UREA NITROGEN 30.7 mg/dL (7-18); CREATININE 1.2 mg/dL (0.55-1.3); POTASSIUM 4.7 mmol/L (3.5-5.1)
[2019-08-05 10:14] LABS: ALBUMIN 1.9 g/dl (3.4-5.0); BILIRUBIN,TOTAL 0.2 mg/dL (0.2-1); CALCIUM 8.5 mg/dL (8.5-10.1); TOT PROT 6.1 g/dl (6.4-8.2)
[2019-08-05] MEDS: oxyCODONE HCL 5 MG TABLET PO PRN ×3 (13:21→23:27)
--- NOTE | 2019-08-05 16:39 | PN ---
Progress Note, Physician Chief Complaint: RLE pain PAD Ischemia of RLE History of Present Illness: NAD RLE pain, RLE warm, + edema s/p Angiogram RLE with infusion of TPA, Angioplasty of TPA, SFA stent s/p R Femoral embolectomy, R popliteal and tibial artery embolectomy, patch angioplasty, angriogram no palpable pulse but present via doppler, demarcated toes as per surgery Cleared by surgery to be dc'd started on fentanyl patch - Current Medication List Current Medications: Active Medications Acetaminophen (Tylenol -) 1,000 mg PO Q6H PRN PRN Reason: PAIN LEVEL 1 - 3 Last Admin: 08/05/19 13:21 Dose: 1,000 mg Albuterol Sulfate (Ventolin 0.083% Nebulizer Soln -) 1 amp NEB RQID [facility] Last Admin: 08/05/19 15:29 Dose: 1 amp Amino Acids (Prosource No Carb Liquid Pkt) 30 ml PO BID@0800,1730 [facility] Last Admin: 08/05/19 07:40 Dose: 30 ml Amoxicillin/Clavulanate Potassium (Augmentin - 875mg Tablet) 1 tab PO BID@0800, 1730 [facility] Last Admin: 08/05/19 07:46 Dose: 1 tab Aspirin (Asa -) 81 mg PO DAILY [facility] Last Admin: 08/05/19 09:45 Dose: 81 mg Atorvastatin Calcium (Lipitor -) 40 mg PO HS [facility] Last Admin: 08/04/19 22:06 Dose: 40 mg Budesonide (Pulmicort 0.25 Mg Nebulizer -) 1 amp NEB RBID [facility] Last Admin: 08/05/19 07:25 Dose: 1 amp Collagenase (Santyl -) 1 applic TP DAILY [facility]; Protocol Last Admin: 08/05/19 09:46 Dose: 1 applic Fentanyl (Duragesic 25mcg Patch -) 1 patch TD Q72H [facility] Stop: 08/12/19 09:34 Last Admin: 08/05/19 09:54 Dose: 1 patch Insulin Aspart (Novolog Vial Sliding Scale -) 1 vial SQ ACHS [facility]; Protocol Last Admin: 08/05/19 12:05 Dose: 3 units Insulin Detemir (Levemir Vial) 40 units SQ AM [facility] Last Admin: 08/05/19 06:36 Dose: 40 units Insulin Detemir (Levemir Vial) 15 units SQ HS [facility] Last Admin: 08/04/19 22:06 Dose: 15 units Lorazepam (Ativan -) 1 mg PO BID PRN PRN Reason: ANXIETY Last Admin: 08/05/19 09:45 Dose: 1 mg Magnesium Oxide (Mag-Ox -) 400 mg PO BID [facility] Last Admin: 08/05/19 09:45 Dose: 400 mg Miscellaneous (Duragesic Patch Waste) 1 each TD PRN PRN PRN Reason: PAIN Morphine Sulfate (Morphine Sulfate) 2 mg IVPUSH Q4H PRN PRN Reason: PAIN LEVEL 7 - 10 Last Admin: 08/05/19 14:35 Dose: 2 mg Ondansetron HCl (Zofran Injection) 4 mg IVPUSH Q6H PRN PRN Reason: NAUSEA AND/OR VOMITING Oxycodone HCl (Roxicodone -) 5 mg PO Q4H PRN PRN Reason: PAIN LEVEL 4 - 6 Last Admin: 08/05/19 13:21 Dose: 5 mg Pantoprazole Sodium (Protonix -) 40 mg PO DAILY [facility] Last Admin: 08/05/19 09:45 Dose: 40 mg Polyethylene Glycol (Miralax (For Daily Use) -) 17 gm PO BID [facility] Polysaccharide Iron Complex (Niferex-150 -) 150 mg PO DAILY [facility] Last Admin: 08/05/19 09:45 Dose: 150 mg Pregabalin (Lyrica -) 150 mg PO TID [facility] Last Admin: 08/05/19 13:22 Dose: 150 mg Promethazine HCl (Phenergan Injection -) 12.5 mg IVPUSH Q6H PRN PRN Reason: NAUSEA-FOR RESCUE AFTER 15 MIN Rivaroxaban (Xarelto) 15 mg PO BID [facility] Last Admin: 08/05/19 09:45 Dose: 15 mg Senna (Senna -) [address] [facility] - Objective Vital Signs: Vital Signs Temperature 98.7 F 08/05/19 15:31 Pulse Rate 95 H 08/05/19 15:31 Respiratory Rate 20 08/05/19 15:31 Blood Pressure 106/46 L 08/05/19 15:31 O2 Sat by Pulse Oximetry (%) 94 L 08/04/19 09:00 Constitutional: Yes: Well Nourished, No Distress, Calm Cardiovascular: Yes: Regular Rate and Rhythm Respiratory: Yes: Regular Gastrointestinal: Yes: Normal Bowel Sounds, Soft Genitourinary: Yes: WNL Musculoskeletal: Yes: Muscle Pain (right foot) Extremities: Yes: Amputation (LBKA), Erythema (RLE) Edema: Yes Edema: RLE: 1+ Peripheral Pulses WNL: No Peripheral Pulses: Right Dorsalis Pedis: 1+ Neurological: Yes: Alert, Oriented Psychiatric: Yes: Alert, Oriented Labs: CBC, BMP 08/05/19 07:30 08/05/19 07:30 INR, PTT INR 1.00 (0.83-1.09) 07/28/19 06:50 Problem List - Problems (1) CKD (chronic kidney disease) Assessment/Plan: -Cr improved -Encourage PO fluids -Nephrology on board Problems reviewed: Yes Code(s): N18.9 - CHRONIC KIDNEY DISEASE, UNSPECIFIED (2) Ischemia of right lower extremity Assessment/Plan: -Seen by Vascular Sx -s/p Angiogram RLE with infusion of TPA, Angioplasty of TPA, SFA stent s/p R Femoral embolectomy, R popliteal and tibial artery embolectomy, patch angioplasty, angriogram -CTA:07/27/19:Occlusion of stenting and bypass graft on the left as discussed above with only collaterals from the pelvis filling branches of the deep femoral artery as described above. 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 Stenting within the iliofemoral noted on the right side. Occlusion of the common femoral artery distal to the stent is noted with pelvic collaterals filling a segmental branch of of the popliteal artery from just above the knee to below the knee with occlusion of this vessel. Thrombus proximal or distal cannot be excluded. Segmental filling of the posterior tibial artery was noted as discussed above. No pedal vessels were seen. -Still on heparin drip -D/C heparin -Started Xarelto 15 mg with aspirin 81 mg po daily Problems reviewed: Yes Code(s): I99.8 - OTHER DISORDER OF CIRCULATORY SYSTEM (3) Anemia Assessment/Plan: -multifactorial -Chronic -previously iron deficient -Already on Iron polysaccharide -check stool OB Problems reviewed: Yes Code(s): D64.9 - ANEMIA, UNSPECIFIED Qualifiers: Anemia type: unspecified type Qualified Code(s): D64.9 - Anemia, unspecified (4) COPD (chronic obstructive pulmonary disease) Assessment/Plan: -Bronchodilators -Nasal O2 to keep SpO2>90% -Pulmonary consult Problems reviewed: Yes Code(s): J44.9 - CHRONIC OBSTRUCTIVE PULMONARY DISEASE, UNSPECIFIED (5) Diabetes mellitus Assessment/Plan: -A1c at 9.8 -Endocrine consult -BGM AC HS -Diabetic low sodium low cholesterol diet -ISS -Levemir increase to 40 U in AM and 15 U HS -Follow trend Problems reviewed: Yes Code(s): E11.9 - TYPE 2 DIABETES MELLITUS WITHOUT COMPLICATIONS (6) Elevated LFTs Assessment/Plan: -chronic -03/2019 U/S liver-->fatty infiltration Problems reviewed: Yes Code(s): R94.5 - ABNORMAL RESULTS OF LIVER FUNCTION STUDIES (7) Sacral decubitus ulcer Assessment/Plan: -Plastic surgery consult -turn q2h -offloading Code(s): L89.159 - PRESSURE ULCER OF SACRAL REGION, UNSPECIFIED STAGE Assessment/Plan see problem list D/C to dana bills in AM
[2019-08-05] MEDS ORDERED: SENNOSIDES 8.6MG TABLET (FP) PO SCH (22:00)
[2019-08-05] MEDS: ATORVASTATIN CA 40 MG TABLET (FP) PO SCH (22:13)
[2019-08-06] MEDS: morphine SULFATE 4 MG/ML VIAL IVPUSH PRN ×2 (05:45→10:50)
[2019-08-06] MEDS: INSULIN (LEVEMIR) 100 UNITS/ML UNITS SQ SCH (06:38)
[2019-08-06] MEDS: PREGABALIN 50 MG CAPSULE PO SCH ×2 (06:38→14:32)
[2019-08-06] MEDS: INSULIN SLIDING SCALE (NOVOLOG) 1 VIAL SQ SCH ×3 (06:39→16:59)
[2019-08-06] MEDS ORDERED: INSULIN (NOVOLOG) ASPART 100 UNITS/ML 10ML VIAL ONE (06:44)
[2019-08-06] MEDS ORDERED: BUDESONIDE 0.5 MG/2 ML INH SUSP VIAL NEB ONE (07:25)
[2019-08-06] MEDS: ALBUTEROL SO4 0.083% IH SOL 2.5 MG/3 ML VIAL.NEB. NEB SCH ×3 (07:30→15:50)
[2019-08-06] MEDS: BUDESONIDE 0.25 MG/2ML INH SUSP VIAL NEB SCH (07:35)
--- NOTE | 2019-08-06 08:34 | PN ---
Progress Note (short form) - Note Progress Note: S/p Right femoral embolectomy. Right popliteal and tibial artery embolectomy, patch angioplasty. Angiogram on 07/27 S/p Angiogram RLE w/ infusion of TPA. Angioplasty of TAKE UP SUPERVISOR. SFA stent on 07/30 Pt seen and examined. Reports she continues to have pain in her leg but it has improved. She attempted to stand with PT yesterday but was not able to do anything more. Reports improved sensation in foot. Denies cp/sob, n/v/d. Vital Signs Temp 98.8 F 08/06/19 05:35 Pulse 82 08/06/19 05:35 Resp 20 08/06/19 05:35 BP 98/59 L 08/06/19 05:35 Pulse Ox 94 L 08/05/19 09:00 Intake & Output 08/05/19 08/05/19 08/06/19 11:59 23:59 11:59 Intake Total 200 Balance 200 Weight 152 lb 149 lb 9 oz Intake: Oral 200 Other: Voiding Method Incontinent Incontinent # Unmeasured Voids Void 2 2 Bowel Movement No No Yes # Bowel Movements 1 Weight Measurement Method Built [facility] Built in [facility] CBC, BMP 08/05/19 07:30 08/05/19 07:30 Gen: awake, alert, nad Resp: Unlabored on RA Ext: L aka intact with no open wounds. RLE with ecchymosis/toes demacerated. No open ulcers. +ttp. Foot with 2+ pitting edema. Calf with +edema, compartments sot. Incisions x 2 c/d/i with manuel in place. No erythema or drainage. Able to wiggle toes slightly, able to dorsi/plantarflex foot slightly Vasc: palpable DP and PT Problem List - Problems (1) Peripheral arterial disease Assessment/Plan: A/P: 44 y/o F w/ PMHX PAD, s/p left aka, DM, HLD, HTN, CVA, admitted 07/26 with severe RLE pain/discoloration x 1 day, found to have patent right iliac stent with no flow in the proximal SFA and no flow in calf, now s/p S/p Right femoral embolectomy. Right popliteal and tibial artery embolectomy, patch angioplasty. Angiogram on 07/27 S/p Angiogram RLE w/ infusion of TPA. Angioplasty of TAKE UP SUPERVISOR. SFA stent on 07/30. Afebrile, vss Foot warm and well perfused. w toes demarcating, no clinical signs of infection. -Continue Xarelto/ASA -PT -Continue neurovascular checks -Discharge planning Code(s): I73.9 - PERIPHERAL VASCULAR DISEASE, UNSPECIFIED
[2019-08-06] MEDS: AMOX TR/POT CLAV 875MG/125MG TABLETS (FP) PO SCH ×2 (08:57→16:57)
[2019-08-06] MEDS: AMINO ACIDS/PROTEIN HYDROLYS 30 ML LIQUID.PKT PO SCH ×2 (08:57→16:57)
[2019-08-06] MEDS ORDERED: PT OWN MED DRAWER 7, Y5N ONE (10:15)
[2019-08-06] MEDS: IRON POLYSACCHARIDES 150 MG CAPSULE PO SCH (10:43)
[2019-08-06] MEDS: RIVAROXABAN 15 MG TABLET PO SCH (10:43)
[2019-08-06] MEDS: PANTOPRAZOLE 40 MG TABLET (FP) PO SCH (10:43)
[2019-08-06] MEDS: MAGNESIUM OXIDE 400 MG TABLET (FP) PO SCH (10:44)
[2019-08-06] MEDS: ASPIRIN 81 MG CHEWABLE TABLETS PO SCH (10:44)
[2019-08-06] MEDS: POLYETHYLENE GLYCOL 3350 119 GM BTL PO SCH (10:44)
[2019-08-06] MEDS: COLLAGENASE CLOSTRIDIUM HIST. 30 GRAMS TUBE TP SCH (10:51)
--- NOTE | 2019-08-06 11:31 | DS ---
Physical Examination Vital Signs: Vital Signs Temperature 98.8 F 08/06/19 05:35 Pulse Rate 82 08/06/19 05:35 Respiratory Rate 20 08/06/19 05:35 Blood Pressure 98/59 L 08/06/19 05:35 O2 Sat by Pulse Oximetry (%) 94 L 08/05/19 09:00 Findings/Remarks: This is a 44 y/o woman with a past medical history of PAD, s/p left below the knee amputation, DM, HLD, HTN, CVA, PAD. Who presents to the ED with severe right lower extremity pain, discoloration and coolness x 1 day. Patient reports that she been having right leg pain since last night, states she tried to take a step last night but fell secondary to the pain. The patient reports coldness and discoloration to the digits. The patient reports that she has not been compliant with her blood thinner medication for the past 4 days secondary to the pain. She also endorses not taking her insulin as well. Patient denies fever , cough, dizziness, SOB, CP, palpitations, AP, N/V/D, dysuria. CTA RLE 07/27/19: Occlusion of stenting and bypass graft on the left as discussed above with only collaterals from the pelvis filling branches of the deep femoral artery as described above. 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 Stenting within the iliofemoral noted on the right side. Occlusion of the common femoral artery distal to the stent is noted with pelvic collaterals filling a segmental branch of of the popliteal artery from just above the knee to below the knee with occlusion of this vessel. Thrombus proximal or distal cannot be excluded. Segmental filling of the posterior tibial artery was noted as discussed above. No pedal vessels were seen. CTA abd/aortaBL runoff 07/30/19: Since July 27, 2019, there is interval revascularization of flow into the right SHIP RIGGER APPRENTICE and SFA which demonstrates short segmental occlusion in the region of the adductor canal followed by patent right popliteal artery demonstrating multifocal noncalcified plaques resulting in moderate stenosis in the range of 50-70%. Interval improvement of infrapopliteal flow with patent TP trunk and proximal peroneal and posterior tibial arteries which both demonstrates short segmental occlusions in their mid to distal aspect with distal reconstitution with flow seen into the plantar artery. Proximal two thirds of the right AMELIA is occluded with distal reconstitution with flow seen to the dorsalis pedis artery. Status post right AKA with persistent occlusion of the right SHIP RIGGER APPRENTICE into left SHIP RIGGER APPRENTICE bypass graft, occluded left [place] BOB and EIA with their endovascular stents as well as occlusion of the right BOB to Left SHIP RIGGER APPRENTICE bypass graft with diminutive flow in the left SFA and muscular branches of the left DFA via collateral flow. The SFA demonstrates multifocal disease with high-grade stenosis proximally and distal occlusion with essentially no flow into the stump. Marked osteopenia of the femur stump suspicious for underlying osteomyelitis. Status post cholecystectomy. No biliary ductal dilatation seen. 2.6 cm simple left renal cyst. High-grade stenosis of the main right renal artery with extensive multifocal right renal atrophy likely vascular in nature. Posterior sacral decubitus ulcer U/S venous duplex:08/04/19 No DVT is identified involving the right leg. Please see above. Laboratory Last Values WBC 9.8 K/mm3 (4.0-10.0) 08/05/19 07:30 RBC 3.48 M/mm3 (3.60-5.2) L 08/05/19 07:30 Hgb 8.7 GM/dL (10.7-15.3) L 08/05/19 07:30 Hct 27.2 % (32.4-45.2) L 08/05/19 07:30 MCV 78.3 fl (80-96) L 08/05/19 07:30 MCH 25.0 pg (25.7-33.7) L 08/05/19 07:30 MCHC 32.0 g/dl (32.0-36.0) 08/05/19 07:30 RDW 23.4 % (11.6-15.6) H 08/05/19 07:30 Plt Count 350 K/MM3 (134-434) D 08/05/19 07:30 MPV 9.9 fl (7.5-11.1) 08/05/19 07:30 Absolute Neuts (auto) 14.5 K/mm3 (1.5-8.0) H 07/27/19 20:06 Neutrophils % 90.3 % (42.8-82.8) H 07/27/19 20:06 Lymphocytes % 6.6 % (8-40) L D 07/27/19 20:06 Monocytes % 2.4 % (3.8-10.2) L 07/27/19 20:06 Eosinophils % 0.3 % (0-4.5) D 07/27/19 20:06 Basophils % 0.4 % (0-2.0) 07/27/19 20:06 Nucleated RBC % 0 % (0-0) 07/27/19 20:06 PT with INR 11.80 SEC (9.7-13.0) 07/28/19 06:50 INR 1.00 (0.83-1.09) 07/28/19 06:50 PTT (Actin FS) 83.8 SECONDS (25.2-36.5) H 07/31/19 08:20 Sodium 142 mmol/L (136-145) 08/05/19 07:30 Potassium 4.7 mmol/L (3.5-5.1) 08/05/19 07:30 Chloride 105 mmol/L (98-107) 08/05/19 07:30 Carbon Dioxide 31 mmol/L (21-32) 08/05/19 07:30 Anion Gap 6 MMOL/L (8-16) L 08/05/19 07:30 BUN 30.7 mg/dL (7-18) H 08/05/19 07:30 Creatinine 1.2 mg/dL (0.55-1.3) 08/05/19 07:30 Est GFR (CKD-EPI)AfAm 62.76 08/05/19 07:30 Est GFR (CKD-EPI)NonAf 54.15 08/05/19 07:30 POC Glucometer 102 UNITS (80-120) 08/06/19 06:37 Random Glucose 118 mg/dL (74-106) H 08/05/19 07:30 Hemoglobin A1c % 9.8 % (4.2-6.3) H 07/28/19 06:50 Calcium 8.5 mg/dL (8.5-10.1) 08/05/19 07:30 Phosphorus 3.2 mg/dL (2.5-4.9) 07/29/19 08:00 Magnesium 1.6 mg/dL (1.8-2.4) L 07/31/19 08:20 Total Bilirubin 0.2 mg/dL (0.2-1) 08/05/19 07:30 AST 15 U/L (15-37) 08/05/19 07:30 ALT 13 U/L (13-61) 08/05/19 07:30 Alkaline Phosphatase 179 U/L (45-117) H 08/05/19 07:30 Total Protein 6.1 g/dl (6.4-8.2) L 08/05/19 07:30 Albumin 1.9 g/dl (3.4-5.0) L 08/05/19 07:30 Serum , Qual Negative 07/27/19 06:05 Blood Type B POSITIVE 07/29/19 12:50 Antibody Screen Negative 07/29/19 12:50 Crossmatch See Detail 07/29/19 12:50 Microbiology 07/28/19 16:00 Ulcer Gram Stain - Final 07/28/19 16:00 Ulcer Wound Culture - Final Enterococcus Faecalis Staphylococcus Aureus Vital Signs Temp 98.8 F 08/06/19 05:35 Pulse 82 08/06/19 05:35 Resp 20 08/06/19 05:35 BP 98/59 L 08/06/19 05:35 Pulse Ox 94 L 08/05/19 09:00 Intake & Output 08/05/19 08/05/19 08/06/19 11:59 23:59 11:59 Intake Total 200 200 Balance 200 200 Weight 68.946 kg 67.84 kg Intake: Oral 200 200 Other: Voiding Method Incontinent Incontinent Incontinent # Unmeasured Voids Void 2 2 Bowel Movement No No Yes # Bowel Movements 1 Weight Measurement Method Built in [facility] Built in [facility] Constitutional: Yes: Well Nourished, No Distress, Calm Cardiovascular: Yes: Regular Rate and Rhythm Respiratory: Yes: Regular Gastrointestinal: Yes: Normal Bowel Sounds, Soft Musculoskeletal: Yes: Muscle Pain (RLE) Extremities: Yes: Amputation (LLE), Erythema (RLE) Edema: Yes (RLE) Peripheral Pulses WNL: No Neurological: Yes: Alert, Oriented Psychiatric: Yes: Alert, Oriented Labs: CBC, BMP 08/05/19 07:30 08/05/19 07:30 Discharge Summary Problems reviewed: Yes Reason For Visit: ISCHEMIA OF RIGHT LOWER EXTREMITY Current Active Problems CKD (chronic kidney disease) (Acute) Controlled type 2 diabetes mellitus with diabetic peripheral angiopathy without gangrene, with long-term current use of insulin (Acute) History of embolectomy (Acute) Ischemia of right lower extremity (Acute) Type 2 diabetes mellitus with diabetic neuropathic arthropathy (Acute) Condition: Stable - Instructions Diet, Activity, Other Instructions: Keep your incisions clean and dry. No bath or showers. Follow up with Dr Neil in 2 to 3 weeks after your surgical procedure. Pt restarted on Xarelto 2.5 mg po BID+ asa 81 mg po daily for PAD Referrals: Walter Neil MD [Staff Physician] - Disposition: [facility] - Home Medications Comprehensive Discharge Medication List: Ambulatory Orders Budesonide [Pulmicort 0.25 mg Nebulizer -] 1 neb PO BID 11/21/15 Albuterol 0.083% Nebulizer Carolyn [Ventolin 0.083% Nebulizer Soln -] 1 amp NEB Q6HPO amp 12/15/15 Pregabalin [Lyrica -] 150 mg PO TID 04/15/16 Iron Polysaccharides [Niferex-150 -] 150 mg PO DAILY #30 11/22/16 Atorvastatin Ca [Lipitor] 40 mg PO HS #30 tablet 01/16/19 Insulin Sliding Scale [Novolog Vial Sliding Scale -] 1 vial SQ TIDAC units 08/21 Polyethylene Glycol 3350 [Miralax 119 gm Btl -] 17 gm PO DAILY bottle 03/26/19 Acetaminophen [Tylenol .Extra-Strength -] 1,000 mg PO Q6H PRN tablet 07/30/19 Aspirin [ASA -] 81 mg PO DAILY tab.chew 07/30/19 Collagenase Clostridium Hist. [Santyl -] 1 applic TP DAILY tube 07/30/19 Insulin (Levemir) [Levemir Vial] 15 units SQ HS units 07/30/19 Insulin (Levemir) [Levemir Vial] 40 units SQ AM units 07/30/19 LORazepam [Ativan] 1 mg PO BID PRN #60 tablet MDD 2 07/30/19 Magnesium Oxide [Mag-Ox -] 400 mg PO BID tablet 07/30/19 Oxycodone HCl 10 mg PO Q6H PRN #120 tablet MDD 4 07/30/19 Pantoprazole Sodium [Protonix -] 40 mg PO DAILY tablet.ec 07/30/19 Pregabalin [Lyrica -] 150 mg PO TID #90 capsule MDD 3 07/30/19 Sennosides [Senna -] 2 tab PO HS tablet 07/30/19 oxyCODONE HCL [Roxicodone -] 5 mg PO Q4H PRN #180 tablet MDD 6 07/30/19 Acetaminophen [Tylenol .Extra-Strength -] 1,000 mg PO Q6H PRN tablet 08/05/19 Amino Acids/Protein Hydrolys [Prosource No Carb Liquid Pkt] 30 ml PO BID@0800, 1730 packet 08/05/19 Amox-Tr/K Cl [Augmentin 875-125mg Tablet -] 1 tab PO BID@0800,1730 3 Days #6 tablet 08/05/19 Aspirin [ASA -] 81 mg PO DAILY tab.chew 08/05/19 Collagenase Clostridium Hist. [Santyl -] 1 applic TP DAILY tube 08/05/19 FENTANYL 25mcg PATCH [DURAGESIC 25mcg PATCH -] 1 patch TD Q72H patch.td72 MDD 1 08/05/19 Insulin (Levemir) [Levemir Vial] 15 units SQ HS units 08/05/19 Insulin (Levemir) [Levemir Vial] 40 units SQ AM units 08/05/19 LORazepam [Ativan] 1 mg PO BID PRN #60 tablet MDD 2 08/05/19 Magnesium Oxide [Mag-Ox -] 400 mg PO BID tablet 08/05/19 Pantoprazole Sodium [Protonix -] 40 mg PO DAILY tablet.ec 08/05/19 Polyethylene Glycol 3350 [Miralax 119 gm Btl -] 17 gm PO DAILY bottle 08/05/19 Pregabalin [Lyrica -] 150 mg PO TID #90 capsule MDD 3 08/05/19 Rivaroxaban [Xarelto] 15 mg PO BID tablet 08/05/19 oxyCODONE HCL [Roxicodone -] 5 mg PO Q4H PRN #120 tablet MDD 6 08/05/19
[2019-08-06] MEDS ORDERED: FENTANYL PATCH WASTE MC PRN (13:01)
[2019-08-06] MEDS ORDERED: fentaNYL 50mcg/hr PATCH.TD72 TD SCH (13:15)
[2019-08-06 13:33] VITALS: BP 110/62; PULSE 92; TEMP 98.4
[2019-08-06] MEDS: oxyCODONE HCL 5 MG TABLET PO PRN ×2 (14:33→19:40)
== END 2019-08-06 21:45 | DRG 181 ==
LOC: JER 21:01 → JERBED 07-27 01:49 → JICU 07-27 21:37 → J5S 07-28 22:20 → J6S 07-30 19:55
PROVIDERS: ADMIT Internal Medicine; ATTEND Family Medicine
PROC: 04CM0ZZ Extirpation of Matter from Right Popliteal Artery, Open Approach (ICD-10-PCS; 2019-07-27)
PROC: 04CP0ZZ Extirpation of Matter from Right Anterior Tibial Artery, Open Approach (ICD-10-PCS; 2019-07-27)
PROC: 04CR0ZZ Extirpation of Matter from Right Posterior Tibial Artery, Open Approach (ICD-10-PCS; 2019-07-27)
PROC: B40FYZZ Plain Radiography of Right Lower Extremity Arteries using Other Contrast (ICD-10-PCS; 2019-07-27)
PROC: 3E05317 Introduction of Other Thrombolytic into Peripheral Artery, Percutaneous Approach (ICD-10-PCS; 2019-07-27)
PROC: 3E05317 Introduction of Other Thrombolytic into Peripheral Artery, Percutaneous Approach (ICD-10-PCS; 2019-07-27)
PROC: 04CK0ZZ Extirpation of Matter from Right Femoral Artery, Open Approach (ICD-10-PCS; principal; 2019-07-27 14:30)
PROC: B40FYZZ Plain Radiography of Right Lower Extremity Arteries using Other Contrast (ICD-10-PCS; 2019-07-30)
PROC: 047K3ZZ Dilation of Right Femoral Artery, Percutaneous Approach (ICD-10-PCS; 2019-07-30)
DX: E11.51 Type 2 diabetes mellitus with diabetic peripheral angiopathy without gangrene (principal); L89.154 Pressure ulcer of sacral region, stage 4; E11.22 Type 2 diabetes mellitus with diabetic chronic kidney disease; I74.3 Embolism and thrombosis of arteries of the lower extremities; E11.40 Type 2 diabetes mellitus with diabetic neuropathy, unspecified; D68.59 Other primary thrombophilia; E11.42 Type 2 diabetes mellitus with diabetic polyneuropathy; E83.42 Hypomagnesemia; E11.3299 Type 2 diabetes mellitus with mild nonproliferative diabetic retinopathy without macular edema, unspecified eye; K21.9 Gastro-esophageal reflux disease without esophagitis; J44.9 Chronic obstructive pulmonary disease, unspecified; Z89.512 Acquired absence of left leg below knee; I25.10 Atherosclerotic heart disease of native coronary artery without angina pectoris; I12.9 Hypertensive chronic kidney disease with stage 1 through stage 4 chronic kidney disease, or unspecified chronic kidney disease; E78.5 Hyperlipidemia, unspecified; N18.9 Chronic kidney disease, unspecified; Z79.4 Long term (current) use of insulin; Z87.891 Personal history of nicotine dependence; Z86.73 Personal history of transient ischemic attack (TIA), and cerebral infarction without residual deficits; I25.2 Old myocardial infarction; F41.9 Anxiety disorder, unspecified; D64.9 Anemia, unspecified; Z98.61 Coronary angioplasty status; R94.5 Abnormal results of liver function studies
CPT/HCPCS: 36415; 36430; 36511; 71045-TC-FY; 73706-TC-RT; 75635-TC; 76000-TC-FY; 76700-TC; 80048; 80053; 82962; 83036; 83735; 84100; 84703; 85025; 85027; 85610; 85730; 86850; 86900; 86901; 86922; 87070; 87186; 87205; 88304-TC; 93005; 93010; 93971-TC; 94010; 94640; 94760; 97162-GP; 99285-25; J0131; J1644; J2997; J7030; P9038; P9058; Q2036; Q9967

== ENCOUNTER 2020-08-23 12:35 | Emergency (ER) | payer OTHER ==
[2020-08-23 13:02] VITALS: TEMP 99.9; BMI 26.0
[2020-08-23 20:32] VITALS: BP 96/60; PULSE 98
== END 2020-08-23 20:25 | disposition home or self-care (01) ==
LOC: JER 12:35
DX: T40.2X1A Poisoning by other opioids, accidental (unintentional), initial encounter (principal)
CPT/HCPCS: 99283-25

== ENCOUNTER 2021-02-11 17:48 | Inpatient (IN) | payer OTHER ==
[2021-02-11] MEDS ORDERED: PIPERACILLIN/TAZOB 4.5 GM 4.5 GM in DEXTROSE 5%-WATER 100 ML IVPB ONE (20:26)
[2021-02-11] MEDS ORDERED: VANCOMYCIN 1 GM in D5W (PRE-DOCKED) 1,000 MG/250 ML IVPB ONE (20:26)
[2021-02-11] MEDS ORDERED: ACETAMINOPHEN 1000 MG/100 ML VIAL (NON FORMULARY) IVPB ONE (20:27)
[2021-02-11] MEDS ORDERED: ACETAMINOPHEN INJECTION 100 ML IVPB ONE (20:51)
[2021-02-11] MEDS ORDERED: PIPERACILLIN/TAZOB 4.5 GM 4.5 GM/100 ML BAG IVPB ONE (20:52)
[2021-02-11 21:11] LABS: BASO % 0.8 % (0-2.0); EOS % 7.1 % (0-4.5); HEMATOCRIT 36.4 % (32.4-45.2); HEMOGLOBIN 11.7 GM/dL (10.7-15.3); LYMPH % 25.8 % (8-40); MCH 25.3 pg (25.7-33.7); MEAN CELL VOLUME 79.1 fl (80-96); MEAN PLT VOLUME 9.5 fl (7.5-11.1); MONO % 4.5 % (3.8-10.2); NEUT % 61.8 % (42.8-82.8); PLATELET COUNT 292 K/MM3 (134-434); WHITE BLOOD COUNT 11.1 K/mm3 (4.0-10.0)
[2021-02-11 21:32] LABS: CALCIUM 9.4 mg/dL (8.5-10.1)
[2021-02-11 21:33] LABS: ALBUMIN 3.2 g/dl (3.4-5.0); BLOOD UREA NITROGEN 10.3 mg/dL (7-18)
[2021-02-11 21:36] LABS: CREATININE 1.1 mg/dL (0.55-1.3)
[2021-02-11 21:37] LABS: BILIRUBIN,TOTAL 0.9 mg/dL (0.2-1)
[2021-02-11 21:38] LABS: TOT PROT 8.4 g/dl (6.4-8.2)
[2021-02-11] MEDS ORDERED: VANCOMYCIN 1 GRAM (PRE-DOCKED) 1,000 MG/250 ML BAG IVPB ONE (21:45)
[2021-02-11 22:02] LABS: ERYTHROCYTE SEDIMENTATION RATE 85 mm/hr (0-20)
[2021-02-11] MEDS ORDERED: LIDOCAINE 2.5%/PRILOCAINE 2.5% (5 Gram/TUBE) TP ONE (22:24)
[2021-02-12] MEDS ORDERED: ACETAMINOPHEN 1000 MG/100 ML VIAL (NON FORMULARY) IVPB ONE (02:37)
[2021-02-12] MEDS: PREGABALIN 75 MG CAPSULE PO SCH ×3 (04:55→21:16)
[2021-02-12] MEDS ORDERED: PREGABALIN 50 MG CAPSULE PO SCH (06:00)
[2021-02-12] MEDS: INSULIN SLIDING SCALE (NOVOLOG) 1 VIAL SQ SCH ×4 (06:44→21:19)
[2021-02-12] MEDS: ALBUTEROL SO4 0.083% IH SOL 2.5 MG/3 ML VIAL.NEB. NEB SCH ×4 (07:29→20:20)
[2021-02-12 08:52] LABS: BASO % 0.6 % (0-2.0); EOS % 9.5 % (0-4.5); HEMATOCRIT 33.4 % (32.4-45.2); HEMOGLOBIN 10.9 GM/dL (10.7-15.3); LYMPH % 28.9 % (8-40); MCH 25.8 pg (25.7-33.7); MCHC 32.6 g/dl (32.0-36.0); MEAN CELL VOLUME 79.2 fl (80-96); MEAN PLT VOLUME 9.2 fl (7.5-11.1); MONO % 5.6 % (3.8-10.2); NEUT % 55.4 % (42.8-82.8); PLATELET COUNT 229 K/MM3 (134-434); RBC 4.21 M/mm3 (3.60-5.2); RDW 17.2 % (11.6-15.6)
[2021-02-12 09:16] LABS: CALCIUM 8.6 mg/dL (8.5-10.1)
[2021-02-12 09:17] LABS: ALBUMIN 2.7 g/dl (3.4-5.0); BLOOD UREA NITROGEN 10.5 mg/dL (7-18)
[2021-02-12 09:20] LABS: CREATININE 1.1 mg/dL (0.55-1.3)
[2021-02-12 09:21] LABS: BILIRUBIN,TOTAL 0.6 mg/dL (0.2-1); TOT PROT 7.3 g/dl (6.4-8.2)
[2021-02-12] MEDS: ASPIRIN COATED 81 MG TABLET.EC PO SCH (10:42)
[2021-02-12] MEDS: IRON POLYSACCHARIDES 150 MG CAPSULE PO SCH (10:43)
[2021-02-12] MEDS: metoPROLOL SUCCINATE 25 MG TAB.SR.24H (FP) PO SCH (10:43)
[2021-02-12] MEDS: LORazepam 1 MG TABLET PO SCH ×2 (10:43→21:16)
[2021-02-12] MEDS ORDERED: PIPERACILLIN/TAZOBACTAM 3.375 GM VIAL IVPB ONE ×2 (15:16→17:15)
[2021-02-12] MEDS ORDERED: DEXTROSE 5%-WATER - 50 ML IVPB ONE ×2 (15:16→17:15)
[2021-02-12] MEDS: PIPERACILLIN/TAZOB 3.375 GM 3.375 GM in DEXTROSE 5%-WATER - 50 ML IVPB SCH ×2 (15:23→17:35)
[2021-02-12] MEDS: RIVAROXABAN 20 MG TABLET PO SCH (17:35)
[2021-02-12] MEDS: oxyCODONE HCL 5 MG TABLET PO PRN (17:36)
[2021-02-12] MEDS: ROSUVASTATIN CA 10 MG TABLET (FP) PO SCH (21:16)
[2021-02-12] MEDS: INSULIN (LEVEMIR) 100 UNITS/ML UNITS SQ SCH (21:20)
[2021-02-13] MEDS ORDERED: DEXTROSE 5%-WATER - 50 ML IVPB ONE ×3 (00:44→16:25)
[2021-02-13] MEDS ORDERED: PIPERACILLIN/TAZOBACTAM 3.375 GM VIAL IVPB ONE ×3 (00:44→16:25)
[2021-02-13] MEDS: PIPERACILLIN/TAZOB 3.375 GM 3.375 GM in DEXTROSE 5%-WATER - 50 ML IVPB SCH ×3 (01:01→17:00)
[2021-02-13] MEDS: oxyCODONE HCL 5 MG TABLET PO PRN ×2 (01:02→11:14)
[2021-02-13] MEDS: PREGABALIN 75 MG CAPSULE PO SCH ×3 (05:27→21:08)
[2021-02-13] MEDS: INSULIN SLIDING SCALE (NOVOLOG) 1 VIAL SQ SCH ×4 (06:07→21:17)
[2021-02-13] MEDS: ALBUTEROL SO4 0.083% IH SOL 2.5 MG/3 ML VIAL.NEB. NEB SCH ×4 (07:22→21:26)
[2021-02-13] MEDS: metoPROLOL SUCCINATE 25 MG TAB.SR.24H (FP) PO SCH (09:20)
[2021-02-13] MEDS: ASPIRIN COATED 81 MG TABLET.EC PO SCH (09:21)
[2021-02-13] MEDS: INSULIN (LEVEMIR) 100 UNITS/ML UNITS SQ SCH ×2 (09:21→21:17)
[2021-02-13] MEDS: LORazepam 1 MG TABLET PO SCH ×2 (09:21→21:08)
[2021-02-13] MEDS: IRON POLYSACCHARIDES 150 MG CAPSULE PO SCH (09:21)
[2021-02-13] MEDS: SILVER SULFADIAZINE 1% TOP CREAM 50 GM JAR TP SCH (10:46)
[2021-02-13] MEDS ORDERED: HYDROmorphone HCl 2 MG/ML VIAL IVPB ONE (14:00)
[2021-02-13] MEDS: RIVAROXABAN 20 MG TABLET PO SCH (17:00)
[2021-02-13] MEDS: HYDROmorphone HCl 2 MG/ML VIAL IVPB PRN (21:06)
[2021-02-13] MEDS: ROSUVASTATIN CA 10 MG TABLET (FP) PO SCH (21:08)
[2021-02-14] MEDS ORDERED: PIPERACILLIN/TAZOBACTAM 3.375 GM VIAL IVPB ONE ×3 (01:26→17:48)
[2021-02-14] MEDS ORDERED: DEXTROSE 5%-WATER - 50 ML IVPB ONE ×3 (01:26→17:48)
[2021-02-14] MEDS: PIPERACILLIN/TAZOB 3.375 GM 3.375 GM in DEXTROSE 5%-WATER - 50 ML IVPB SCH ×3 (01:32→18:10)
[2021-02-14] MEDS: oxyCODONE HCL 5 MG TABLET PO PRN ×2 (03:37→21:48)
[2021-02-14] MEDS: PREGABALIN 75 MG CAPSULE PO SCH ×3 (05:49→21:47)
[2021-02-14] MEDS: INSULIN SLIDING SCALE (NOVOLOG) 1 VIAL SQ SCH ×4 (06:06→21:54)
[2021-02-14 07:48] LABS: HEMATOCRIT 35.3 % (32.4-45.2); MCH 25.2 pg (25.7-33.7); MCHC 31.1 g/dl (32.0-36.0); MEAN PLT VOLUME 9.6 fl (7.5-11.1); PLATELET COUNT 249 K/MM3 (134-434); RBC 4.36 M/mm3 (3.60-5.2); RDW 17.1 % (11.6-15.6); WHITE BLOOD COUNT 11.1 K/mm3 (4.0-10.0)
[2021-02-14 07:58] LABS: CALCIUM 8.8 mg/dL (8.5-10.1)
[2021-02-14 07:59] LABS: BLOOD UREA NITROGEN 14.3 mg/dL (7-18)
[2021-02-14 08:02] LABS: CREATININE 1.3 mg/dL (0.55-1.3)
[2021-02-14] MEDS: ALBUTEROL SO4 0.083% IH SOL 2.5 MG/3 ML VIAL.NEB. NEB SCH ×4 (08:15→19:17)
[2021-02-14] MEDS ORDERED: PT OWN MED DRAWER 7, Y5N ONE (09:24)
[2021-02-14] MEDS: HYDROmorphone HCl 2 MG/ML VIAL IVPB PRN ×2 (09:33→17:50)
[2021-02-14] MEDS: LORazepam 1 MG TABLET PO SCH ×2 (09:42→21:47)
[2021-02-14] MEDS: ASPIRIN COATED 81 MG TABLET.EC PO SCH (09:43)
[2021-02-14] MEDS: metoPROLOL SUCCINATE 25 MG TAB.SR.24H (FP) PO SCH (09:43)
[2021-02-14] MEDS: IRON POLYSACCHARIDES 150 MG CAPSULE PO SCH (09:43)
[2021-02-14] MEDS: INSULIN (LEVEMIR) 100 UNITS/ML UNITS SQ SCH ×2 (10:00→21:55)
[2021-02-14] MEDS: VANCOMYCIN 1 GRAM (PRE-DOCKED) 1,000 MG/250 ML BAG IVPB SCH (14:40)
[2021-02-14] MEDS: SILVER SULFADIAZINE 1% TOP CREAM 50 GM JAR TP SCH (15:37)
[2021-02-14] MEDS: RIVAROXABAN 20 MG TABLET PO SCH (17:53)
[2021-02-14] MEDS: ROSUVASTATIN CA 10 MG TABLET (FP) PO SCH (21:47)
[2021-02-15] MEDS ORDERED: PIPERACILLIN/TAZOBACTAM 3.375 GM VIAL IVPB ONE ×3 (01:49→17:17)
[2021-02-15] MEDS ORDERED: DEXTROSE 5%-WATER - 50 ML IVPB ONE ×3 (01:49→17:17)
[2021-02-15] MEDS: PIPERACILLIN/TAZOB 3.375 GM 3.375 GM in DEXTROSE 5%-WATER - 50 ML IVPB SCH ×3 (02:08→17:25)
[2021-02-15] MEDS: HYDROmorphone HCl 2 MG/ML VIAL IVPB PRN ×3 (02:09→21:16)
[2021-02-15] MEDS: oxyCODONE HCL 5 MG TABLET PO PRN ×2 (06:01→17:25)
[2021-02-15] MEDS: PREGABALIN 75 MG CAPSULE PO SCH ×3 (06:01→21:05)
[2021-02-15] MEDS: INSULIN SLIDING SCALE (NOVOLOG) 1 VIAL SQ SCH ×4 (06:05→21:21)
[2021-02-15] MEDS: ALBUTEROL SO4 0.083% IH SOL 2.5 MG/3 ML VIAL.NEB. NEB SCH ×4 (08:41→21:00)
[2021-02-15] MEDS ORDERED: PT OWN MED DRAWER 7, Y5N ONE (09:54)
[2021-02-15] MEDS: metoPROLOL SUCCINATE 25 MG TAB.SR.24H (FP) PO SCH (10:09)
[2021-02-15] MEDS: IRON POLYSACCHARIDES 150 MG CAPSULE PO SCH (10:09)
[2021-02-15] MEDS: LORazepam 1 MG TABLET PO SCH ×2 (10:09→21:06)
[2021-02-15] MEDS: ASPIRIN COATED 81 MG TABLET.EC PO SCH (10:09)
[2021-02-15] MEDS: INSULIN (LEVEMIR) 100 UNITS/ML UNITS SQ SCH ×2 (10:10→21:23)
[2021-02-15] MEDS: SILVER SULFADIAZINE 1% TOP CREAM 50 GM JAR TP SCH (10:10)
[2021-02-15 12:24] VITALS: BMI 24.9
[2021-02-15] MEDS: VANCOMYCIN 1 GRAM (PRE-DOCKED) 1,000 MG/250 ML BAG IVPB SCH (14:51)
[2021-02-15] MEDS: ROSUVASTATIN CA 10 MG TABLET (FP) PO SCH (21:06)
[2021-02-16] MEDS ORDERED: DEXTROSE 5%-WATER - 50 ML IVPB ONE ×2 (00:58→08:44)
[2021-02-16] MEDS ORDERED: PIPERACILLIN/TAZOBACTAM 3.375 GM VIAL IVPB ONE ×2 (00:58→08:44)
[2021-02-16] MEDS: PIPERACILLIN/TAZOB 3.375 GM 3.375 GM in DEXTROSE 5%-WATER - 50 ML IVPB SCH ×2 (01:20→09:10)
[2021-02-16] MEDS: PREGABALIN 75 MG CAPSULE PO SCH ×3 (05:39→22:10)
[2021-02-16] MEDS: HYDROmorphone HCl 2 MG/ML VIAL IVPB PRN ×3 (06:04→23:52)
[2021-02-16] MEDS: INSULIN SLIDING SCALE (NOVOLOG) 1 VIAL SQ SCH ×4 (06:06→22:17)
[2021-02-16] MEDS ORDERED: AMINO ACIDS/PROTEIN HYDROLYS 30 ML LIQUID.PKT PO SCH (08:00)
[2021-02-16 08:03] LABS: INR 1.12 (0.83-1.09); PROTHROMBIN TIME (PATIENT) 13.7 SEC (9.7-13.0)
[2021-02-16 08:08] LABS: HEMATOCRIT 34.8 % (32.4-45.2); MCH 25.4 pg (25.7-33.7); MCHC 31.6 g/dl (32.0-36.0); MEAN CELL VOLUME 80.5 fl (80-96); MEAN PLT VOLUME 9.4 fl (7.5-11.1); PLATELET COUNT 276 10^3/uL (134-434); RBC 4.33 M/mm3 (3.60-5.2); RDW 17.1 % (11.6-15.6); WHITE BLOOD COUNT 14.7 K/mm3 (4.0-10.0)
[2021-02-16] MEDS: ALBUTEROL SO4 0.083% IH SOL 2.5 MG/3 ML VIAL.NEB. NEB SCH ×4 (08:20→20:45)
[2021-02-16 08:24] LABS: CREATININE 1.4 mg/dL (0.55-1.3)
[2021-02-16] MEDS: LORazepam 1 MG TABLET PO SCH ×2 (09:08→22:11)
[2021-02-16] MEDS: metoPROLOL SUCCINATE 25 MG TAB.SR.24H (FP) PO SCH (09:08)
[2021-02-16] MEDS: INSULIN (LEVEMIR) 100 UNITS/ML UNITS SQ SCH ×2 (09:09→22:17)
[2021-02-16] MEDS: ASPIRIN COATED 81 MG TABLET.EC PO SCH (09:09)
[2021-02-16] MEDS ORDERED: ONDANSETRON 4 MG/2 ML VIAL IVPUSH PRN ×2 (09:42→12:48)
[2021-02-16] MEDS ORDERED: SODIUM CHLORIDE 1,000 ML IV SCH (09:45)
[2021-02-16] MEDS ORDERED: LIDOCAINE HCL/PF 2% SDV 5ML VIAL ONE (09:52)
[2021-02-16] MEDS ORDERED: MIDAZOLAM HCL 2 MG/2 ML SINGLE DOSE VIAL ONE (09:53)
[2021-02-16] MEDS ORDERED: PROPOFOL 20 ML ONE ×3 (09:53→11:35)
[2021-02-16] MEDS ORDERED: INSULIN (NOVOLOG) ASPART 100 UNITS/ML 10ML VIAL ONE ×3 (10:03→21:07)
[2021-02-16] MEDS ORDERED: INSULIN (LEVEMIR) 100 UNITS/ML UNITS SQ ONE (10:03)
[2021-02-16] MEDS ORDERED: LIDOCAINE HCL 1%, 10 MG/ML (20ML VIAL) ONE (10:09)
[2021-02-16] MEDS ORDERED: HEPARIN NA (PORCINE) 5,000 UNITS/ML 1ML VIAL ONE (10:09)
[2021-02-16] MEDS ORDERED: LIDOCAINE HCL 1%, 10 MG/ML (20ML VIAL) NR ONE (10:36)
[2021-02-16] MEDS ORDERED: NITROGLYCERIN 50 MG/10 ML VIAL IVPB ONE (11:30)
[2021-02-16] MEDS: VANCOMYCIN 1 GRAM (PRE-DOCKED) 1,000 MG/250 ML BAG IVPB SCH (14:36)
[2021-02-16] MEDS: SODIUM CHLORIDE 1,000 ML IV SCH (14:39)
[2021-02-16] MEDS ORDERED: SODIUM CHLORIDE 100 ML IVPB ONE ×2 (17:16→23:47)
[2021-02-16] MEDS ORDERED: AMPICILLIN NA/SULBACTAM NA 3 GM VIAL ONE ×2 (17:16→23:47)
[2021-02-16] MEDS: AMPICILLIN NA/SULBACTAM NA 3 GM in SODIUM CHLORIDE 100 ML IVPB SCH (17:46)
[2021-02-16] MEDS ORDERED: PIPERACILLIN/TAZOB 3.375 GM 3.375 GM in DEXTROSE 5%-WATER - 50 ML IVPB SCH (18:00)
[2021-02-16] MEDS ORDERED: RIVAROXABAN 20 MG TABLET PO SCH (18:00)
[2021-02-16] MEDS: IRON POLYSACCHARIDES 150 MG CAPSULE PO SCH (18:01)
[2021-02-16] MEDS: SILVER SULFADIAZINE 1% TOP CREAM 50 GM JAR TP SCH (18:01)
[2021-02-16] MEDS: oxyCODONE HCL 5 MG TABLET PO PRN (22:10)
[2021-02-16] MEDS: ROSUVASTATIN CA 10 MG TABLET (FP) PO SCH (22:11)
[2021-02-17] MEDS: AMPICILLIN NA/SULBACTAM NA 3 GM in SODIUM CHLORIDE 100 ML IVPB SCH ×3 (01:07→17:01)
[2021-02-17] MEDS: oxyCODONE HCL 5 MG TABLET PO PRN ×3 (04:05→20:11)
[2021-02-17] MEDS: PREGABALIN 75 MG CAPSULE PO SCH ×3 (06:31→21:18)
[2021-02-17] MEDS: INSULIN SLIDING SCALE (NOVOLOG) 1 VIAL SQ SCH ×4 (06:34→21:21)
[2021-02-17] MEDS: SODIUM CHLORIDE 1,000 ML IV SCH ×2 (06:36→13:58)
[2021-02-17] MEDS: ALBUTEROL SO4 0.083% IH SOL 2.5 MG/3 ML VIAL.NEB. NEB SCH ×4 (07:53→21:00)
[2021-02-17] MEDS ORDERED: AMPICILLIN NA/SULBACTAM NA 3 GM VIAL ONE ×3 (08:57→23:30)
[2021-02-17] MEDS ORDERED: SODIUM CHLORIDE 100 ML IVPB ONE ×3 (08:58→23:31)
[2021-02-17] MEDS ORDERED: PT OWN MED DRAWER 7, Y5N ONE (08:59)
[2021-02-17] MEDS: HYDROmorphone HCl 2 MG/ML VIAL IVPB PRN (09:12)
[2021-02-17] MEDS: IRON POLYSACCHARIDES 150 MG CAPSULE PO SCH (09:16)
[2021-02-17] MEDS: AMINO ACIDS/PROTEIN HYDROLYS 30 ML LIQUID.PKT PO SCH (09:18)
[2021-02-17] MEDS: INSULIN (LEVEMIR) 100 UNITS/ML UNITS SQ SCH ×2 (09:18→21:18)
[2021-02-17] MEDS: ASPIRIN COATED 81 MG TABLET.EC PO SCH (09:20)
[2021-02-17] MEDS: metoPROLOL SUCCINATE 25 MG TAB.SR.24H (FP) PO SCH (09:20)
[2021-02-17] MEDS: LORazepam 1 MG TABLET PO SCH ×2 (09:20→21:17)
[2021-02-17] MEDS: COLLAGENASE CLOSTRIDIUM HIST. 30 GRAMS TUBE TP SCH (10:34)
[2021-02-17] MEDS ORDERED: INSULIN (NOVOLOG) ASPART 100 UNITS/ML 10ML VIAL ONE (12:19)
[2021-02-17] MEDS ORDERED: INSULIN (LEVEMIR) 100 UNITS/ML UNITS SQ ONE (12:20)
[2021-02-17] MEDS: VANCOMYCIN 1 GRAM (PRE-DOCKED) 1,000 MG/250 ML BAG IVPB SCH (17:16)
[2021-02-17] MEDS: ROSUVASTATIN CA 10 MG TABLET (FP) PO SCH (21:17)
[2021-02-18] MEDS: AMPICILLIN NA/SULBACTAM NA 3 GM in SODIUM CHLORIDE 100 ML IVPB SCH ×2 (01:19→10:00)
[2021-02-18] MEDS: HYDROmorphone HCl 2 MG/ML VIAL IVPB PRN (01:20)
[2021-02-18] MEDS: oxyCODONE HCL 5 MG TABLET PO PRN ×2 (05:51→11:52)
[2021-02-18] MEDS: PREGABALIN 75 MG CAPSULE PO SCH ×2 (05:51→13:15)
[2021-02-18] MEDS: INSULIN SLIDING SCALE (NOVOLOG) 1 VIAL SQ SCH ×2 (06:10→10:18)
[2021-02-18] MEDS: ALBUTEROL SO4 0.083% IH SOL 2.5 MG/3 ML VIAL.NEB. NEB SCH ×2 (07:45→11:40)
[2021-02-18] MEDS ORDERED: AMPICILLIN NA/SULBACTAM NA 3 GM VIAL ONE (09:52)
[2021-02-18] MEDS ORDERED: SODIUM CHLORIDE 100 ML IVPB ONE (09:53)
[2021-02-18] MEDS: AMINO ACIDS/PROTEIN HYDROLYS 30 ML LIQUID.PKT PO SCH (09:59)
[2021-02-18] MEDS: LORazepam 1 MG TABLET PO SCH (10:00)
[2021-02-18] MEDS: INSULIN (LEVEMIR) 100 UNITS/ML UNITS SQ SCH (10:00)
[2021-02-18] MEDS: metoPROLOL SUCCINATE 25 MG TAB.SR.24H (FP) PO SCH (10:01)
[2021-02-18] MEDS: ASPIRIN COATED 81 MG TABLET.EC PO SCH (10:01)
[2021-02-18 10:03] VITALS: BP 119/76; PULSE 88; TEMP 98.4
[2021-02-18] MEDS ORDERED: PT OWN MED DRAWER 7, Y5N ONE (10:04)
[2021-02-18] MEDS: IRON POLYSACCHARIDES 150 MG CAPSULE PO SCH (10:06)
[2021-02-18] MEDS: COLLAGENASE CLOSTRIDIUM HIST. 30 GRAMS TUBE TP SCH (10:17)
[2021-02-18] MEDS: VANCOMYCIN 1 GRAM (PRE-DOCKED) 1,000 MG/250 ML BAG IVPB SCH (13:15)
== END 2021-02-18 15:13 | disposition home or self-care (01) | DRG 181 ==
LOC: JER 17:48 → JERBED 20:35 → J8W 02-12 02:15
PROVIDERS: ADMIT Hospitalist; ATTEND Family Medicine
PROC: 047P3ZZ Dilation of Right Anterior Tibial Artery, Percutaneous Approach (ICD-10-PCS; 2021-02-16)
PROC: 047R3ZZ Dilation of Right Posterior Tibial Artery, Percutaneous Approach (ICD-10-PCS; 2021-02-16)
PROC: 047T3ZZ Dilation of Right Peroneal Artery, Percutaneous Approach (ICD-10-PCS; 2021-02-16)
PROC: 047K3ZZ Dilation of Right Femoral Artery, Percutaneous Approach (ICD-10-PCS; 2021-02-16)
PROC: 0JBN0ZZ Excision of Right Lower Leg Subcutaneous Tissue and Fascia, Open Approach (ICD-10-PCS; principal; 2021-02-16 10:00)
DX: E11.51 Type 2 diabetes mellitus with diabetic peripheral angiopathy without gangrene (principal); N18.9 Chronic kidney disease, unspecified; I69.334 Monoplegia of upper limb following cerebral infarction affecting left non-dominant side; E11.40 Type 2 diabetes mellitus with diabetic neuropathy, unspecified; L89.153 Pressure ulcer of sacral region, stage 3; S91.301A Unspecified open wound, right foot, initial encounter; I25.2 Old myocardial infarction; I48.91 Unspecified atrial fibrillation; J44.9 Chronic obstructive pulmonary disease, unspecified; I12.9 Hypertensive chronic kidney disease with stage 1 through stage 4 chronic kidney disease, or unspecified chronic kidney disease; D64.9 Anemia, unspecified; Z89.612 Acquired absence of left leg above knee; X58.XXXA Exposure to other specified factors, initial encounter; Y93.89 Activity, other specified; Y92.89 Other specified places as the place of occurrence of the external cause; Y99.8 Other external cause status; Z79.4 Long term (current) use of insulin; E11.22 Type 2 diabetes mellitus with diabetic chronic kidney disease
CPT/HCPCS: 36415; 71045-TC-FY; 73630-TC-RT-FY; 73718-TC-RT; 75635-TC; 76000-TC-FY; 80048; 80053; 82962; 83036; 85025; 85027; 85610; 85651; 86140; 86850; 86900; 86901; 87040; 87070; 87076; 87186; 87205; 88304-TC; 93005; 93010; 93925-TC; 93971-TC; 94010; 94640; 94760; 99285-25; C9803; G0480; J0131; J1644; U0003; U0005

== ENCOUNTER 2021-10-29 15:16 | Inpatient (IN) | payer OTHER ==
[2021-10-29 15:39] VITALS: BMI 33.2
[2021-10-29] MEDS ORDERED: ACETAMINOPHEN 1000 MG/100 ML BAG IVPB ONE (15:46)
[2021-10-29] MEDS ORDERED: LACTATED RINGERS SOLUTION 1000 ML INFUS.BAG IV ONE (15:46)
[2021-10-29] MEDS ORDERED: ACETAMINOPHEN INJECTION 100 ML IVPB ONE (15:49)
[2021-10-29 16:40] LABS: BASO % 0.3 % (0-2.0); EOS % 2.1 % (0-4.5); HEMATOCRIT 34.7 % (32.4-45.2); HEMOGLOBIN 11.1 GM/dL (10.7-15.3); LYMPH % 28.1 % (8-40); MCH 26.6 pg (25.7-33.7); MCHC 32.1 g/dl (32.0-36.0); MEAN PLT VOLUME 10.2 fl (7.5-11.1); MONO % 6.1 % (3.8-10.2); NEUT % 63.4 % (42.8-82.8); PLATELET COUNT 220 10^3/uL (134-434); RBC 4.18 M/mm3 (3.60-5.2); RDW 16.6 % (11.6-15.6); WHITE BLOOD COUNT 10.1 K/mm3 (4.0-10.0)
[2021-10-29 16:46] LABS: INR 1.98 (0.83-1.09); PROTHROMBIN TIME (PATIENT) 22.9 SEC (9.7-13.0)
[2021-10-29 16:58] LABS: CHLORIDE 110 mmol/L (98-107); SODIUM 141 mmol/L (136-145)
[2021-10-29 16:59] LABS: CALCIUM 7.9 mg/dL (8.5-10.1)
[2021-10-29 17:00] LABS: ALBUMIN 2.9 g/dl (3.4-5.0); ANION GAP 8 MMOL/L (8-16); BLOOD UREA NITROGEN 22.7 mg/dL (7-18); CO2 24 mmol/L (21-32); GLUCOSE,RANDOM 326 mg/dL (74-106)
[2021-10-29 17:04] LABS: CREATININE 1.6 mg/dL (0.55-1.3); SGOT/AST 9 U/L (15-37); SGPT/ALT 16 U/L (13-61)
[2021-10-29 17:05] LABS: BILIRUBIN,TOTAL 0.2 mg/dL (0.2-1); TOT PROT 7.6 g/dl (6.4-8.2)
[2021-10-29 17:06] LABS: ALK PHOS 221 U/L (45-117)
[2021-10-29 17:18] LABS: URINE APPEARANCE CLEAR; URINE BILIRUBIN NEGATIVE (NEGATIVE); URINE COLOR YELLOW; URINE GLUCOSE (UA) 3+ (NEGATIVE); URINE KETONE NEGATIVE (NEGATIVE); URINE LEUK ESTERASE NEGATIVE (NEGATIVE); URINE NITRITE NEGATIVE (NEGATIVE); URINE PROTEIN TRACE (NEGATIVE); URINE UROBILINOGEN 0.2 mg/dL (0.2-1.0)
[2021-10-29] MEDS ORDERED: VANCOMYCIN 1 GM in D5W (PRE-DOCKED) 1,000 MG/250 ML IVPB ONE (19:06)
[2021-10-29] MEDS ORDERED: PIPERACILLIN/TAZOB 3.375 GM 3.375 GM in DEXTROSE 5%-WATER - 50 ML IVPB ONE (19:06)
[2021-10-29] MEDS ORDERED: morphine CARPU-JECT 2 MG/1 ML DISP.SYRIN IVPUSH ONE (19:31)
[2021-10-29] MEDS ORDERED: ACETAMINOPHEN 325 MG TABLET (FP) PO PRN (19:47)
[2021-10-29] MEDS ORDERED: SODIUM CHLORIDE 1,000 ML IV SCH (20:00)
[2021-10-29] MEDS ORDERED: PIPERACILLIN/TAZOB 3.375 GM 3.375 GM/50 ML BAG IVPB ONE (21:08)
[2021-10-29] MEDS ORDERED: NYSTATIN 100000 UNIT/GM TOPICAL OINTMENT 15 GM TUBE TP SCH (22:00)
[2021-10-29] MEDS: INSULIN SLIDING SCALE (NOVOLOG) 1 VIAL SQ SCH (22:45)
[2021-10-30] MEDS ORDERED: PIPERACILLIN/TAZOB 3.375 GM 3.375 GM in DEXTROSE 5%-WATER - 50 ML IVPB SCH ×2 (04:15→10:00)
[2021-10-30] MEDS ORDERED: DEXTROSE 5%-WATER - 50 ML IVPB ONE ×4 (04:44→21:00)
[2021-10-30] MEDS ORDERED: PIPERACILLIN/TAZOBACTAM 3.375 GM VIAL IVPB ONE ×4 (04:44→21:00)
[2021-10-30] MEDS: SODIUM CHLORIDE 1,000 ML IV SCH ×2 (04:51→22:54)
[2021-10-30] MEDS: PIPERACILLIN/TAZOB 3.375 GM 3.375 GM in DEXTROSE 5%-WATER - 50 ML IVPB SCH ×4 (04:51→21:07)
[2021-10-30] MEDS: INSULIN SLIDING SCALE (NOVOLOG) 1 VIAL SQ SCH ×4 (06:10→22:52)
[2021-10-30] MEDS: ALBUTEROL SO4 0.083% IH SOL 2.5 MG/3 ML VIAL.NEB. NEB SCH ×4 (07:51→20:55)
[2021-10-30] MEDS ORDERED: VANCOMYCIN 1 GM in D5W (PRE-DOCKED) 1,000 MG/250 ML IVPB SCH (10:00)
[2021-10-30] MEDS: metoPROLOL SUCCINATE 25 MG TAB.SR.24H (FP) PO SCH (10:42)
[2021-10-30] MEDS: IRON POLYSACCHARIDES 150 MG CAPSULE PO SCH (10:42)
[2021-10-30] MEDS ORDERED: ACETAMINOPHEN 1000 MG/100 ML BAG IVPB ONE (12:15)
[2021-10-30] MEDS: RIVAROXABAN 20 MG TABLET PO SCH (18:09)
[2021-10-30] MEDS ORDERED: VANCOMYCIN 1,000 MG in DEXTROSE 5%-WATER - 250 ML IVPB SCH (19:00)
[2021-10-31] MEDS: INSULIN SLIDING SCALE (NOVOLOG) 1 VIAL SQ SCH ×4 (06:02→21:46)
[2021-10-31] MEDS: ALBUTEROL SO4 0.083% IH SOL 2.5 MG/3 ML VIAL.NEB. NEB SCH ×4 (07:51→20:15)
[2021-10-31] MEDS: metoPROLOL SUCCINATE 25 MG TAB.SR.24H (FP) PO SCH (09:26)
[2021-10-31] MEDS: IRON POLYSACCHARIDES 150 MG CAPSULE PO SCH (09:26)
[2021-10-31] MEDS: SODIUM CHLORIDE 1,000 ML IV SCH ×2 (09:26→11:35)
[2021-10-31 10:30] LABS: HEMOGLOBIN 9.8 GM/dL (10.7-15.3); MCH 26.6 pg (25.7-33.7); MCHC 31.8 g/dl (32.0-36.0); MEAN CELL VOLUME 83.6 fl (80-96); MEAN PLT VOLUME 10.3 fl (7.5-11.1); PLATELET COUNT 215 10^3/uL (134-434); RBC 3.71 M/mm3 (3.60-5.2); RDW 16.3 % (11.6-15.6); WHITE BLOOD COUNT 7.1 K/mm3 (4.0-10.0)
[2021-10-31 10:46] LABS: CALCIUM 7.8 mg/dL (8.5-10.1)
[2021-10-31 10:49] LABS: BLOOD UREA NITROGEN 14.5 mg/dL (7-18); CREATININE 1.2 mg/dL (0.55-1.3)
[2021-10-31 10:50] LABS: BILIRUBIN,TOTAL 0.4 mg/dL (0.2-1); TOT PROT 6.1 g/dl (6.4-8.2)
[2021-10-31 10:56] LABS: ALBUMIN 2.1 g/dl (3.4-5.0)
[2021-10-31 11:57] LABS: ANISOCYTOSIS 1+; MACROCYTOSIS 0; OVALOCYTE 1+
[2021-10-31 12:00] LABS: PLATELET ESTIMATE ADEQUATE
[2021-10-31] MEDS ORDERED: PIPERACILLIN/TAZOBACTAM 3.375 GM VIAL IVPB ONE ×2 (14:01→17:37)
[2021-10-31] MEDS ORDERED: DEXTROSE 5%-WATER - 50 ML IVPB ONE ×2 (14:01→17:37)
[2021-10-31] MEDS: PIPERACILLIN/TAZOB 3.375 GM 3.375 GM in DEXTROSE 5%-WATER - 50 ML IVPB SCH ×2 (14:05→18:11)
[2021-10-31] MEDS: RIVAROXABAN 20 MG TABLET PO SCH (18:11)
[2021-11-01] MEDS ORDERED: PIPERACILLIN/TAZOBACTAM 3.375 GM VIAL IVPB ONE ×3 (01:15→17:55)
[2021-11-01] MEDS ORDERED: DEXTROSE 5%-WATER - 50 ML IVPB ONE ×3 (01:15→17:55)
[2021-11-01] MEDS: PIPERACILLIN/TAZOB 3.375 GM 3.375 GM in DEXTROSE 5%-WATER - 50 ML IVPB SCH ×3 (01:18→18:09)
[2021-11-01] MEDS: SODIUM CHLORIDE 1,000 ML IV SCH ×3 (01:19→16:49)
[2021-11-01] MEDS: INSULIN SLIDING SCALE (NOVOLOG) 1 VIAL SQ SCH ×4 (06:34→21:59)
[2021-11-01] MEDS: ALBUTEROL SO4 0.083% IH SOL 2.5 MG/3 ML VIAL.NEB. NEB SCH ×4 (08:10→19:23)
[2021-11-01] MEDS: AMINO ACIDS/PROTEIN HYDROLYS 30 ML LIQUID.PKT PO SCH (08:50)
[2021-11-01] MEDS: metoPROLOL SUCCINATE 25 MG TAB.SR.24H (FP) PO SCH (09:07)
[2021-11-01] MEDS: IRON POLYSACCHARIDES 150 MG CAPSULE PO SCH (09:07)
[2021-11-01] MEDS ORDERED: INSULIN (NOVOLOG) ASPART 100 UNITS/ML 10ML VIAL ONE (11:54)
[2021-11-01] MEDS: VITAMIN B COMP W-C 1 EA TABLET (NEPHRO-VITE) PO SCH (12:03)
[2021-11-01 12:41] LABS: BASO % 0.7 % (0-2.0); EOS % 5.1 % (0-4.5); HEMATOCRIT 31.8 % (32.4-45.2); HEMOGLOBIN 10.2 GM/dL (10.7-15.3); LYMPH % 18.6 % (8-40); MCH 26.3 pg (25.7-33.7); MCHC 32.1 g/dl (32.0-36.0); MEAN PLT VOLUME 10.3 fl (7.5-11.1); MONO % 5.1 % (3.8-10.2); NEUT % 70.5 % (42.8-82.8); PLATELET COUNT 219 10^3/uL (134-434); RBC 3.87 M/mm3 (3.60-5.2)
[2021-11-01 12:57] LABS: CALCIUM 8.1 mg/dL (8.5-10.1)
[2021-11-01 12:58] LABS: ALBUMIN 2.2 g/dl (3.4-5.0); BLOOD UREA NITROGEN 10.5 mg/dL (7-18)
[2021-11-01 13:02] LABS: BILIRUBIN,TOTAL 0.3 mg/dL (0.2-1); TOT PROT 6.2 g/dl (6.4-8.2)
[2021-11-01] MEDS: RIVAROXABAN 20 MG TABLET PO SCH (18:09)
[2021-11-02] MEDS ORDERED: PIPERACILLIN/TAZOBACTAM 3.375 GM VIAL IVPB ONE ×3 (01:28→17:36)
[2021-11-02] MEDS ORDERED: DEXTROSE 5%-WATER - 50 ML IVPB ONE ×3 (01:28→17:36)
[2021-11-02] MEDS: PIPERACILLIN/TAZOB 3.375 GM 3.375 GM in DEXTROSE 5%-WATER - 50 ML IVPB SCH ×3 (01:30→17:49)
[2021-11-02] MEDS: INSULIN SLIDING SCALE (NOVOLOG) 1 VIAL SQ SCH ×4 (06:33→21:48)
[2021-11-02] MEDS: ALBUTEROL SO4 0.083% IH SOL 2.5 MG/3 ML VIAL.NEB. NEB SCH ×4 (07:40→20:04)
[2021-11-02] MEDS ORDERED: LORazepam 1 MG TABLET PO PRN (08:07)
[2021-11-02] MEDS ORDERED: oxyCODONE HCL 5 MG TABLET PO PRN (08:07)
[2021-11-02] MEDS ORDERED: DOCUSATE SODIUM 100 MG CAPSULE (FP) PO PRN (08:07)
[2021-11-02] MEDS ORDERED: IRON SUCROSE INJECTION 200 MG in SODIUM CHLORIDE 90 ML IVPB ONE (08:08)
[2021-11-02] MEDS: IRON POLYSACCHARIDES 150 MG CAPSULE PO SCH (09:57)
[2021-11-02] MEDS: AMINO ACIDS/PROTEIN HYDROLYS 30 ML LIQUID.PKT PO SCH (09:57)
[2021-11-02] MEDS: VITAMIN B COMP W-C 1 EA TABLET (NEPHRO-VITE) PO SCH (09:57)
[2021-11-02] MEDS: metoPROLOL SUCCINATE 25 MG TAB.SR.24H (FP) PO SCH (09:58)
[2021-11-02] MEDS: PREGABALIN 75 MG CAPSULE PO SCH ×2 (09:58→21:49)
[2021-11-02] MEDS: SODIUM CHLORIDE 1,000 ML IV SCH (10:30)
[2021-11-02] MEDS: RIVAROXABAN 20 MG TABLET PO SCH (17:48)
[2021-11-02] MEDS ORDERED: INSULIN (NOVOLOG) ASPART 100 UNITS/ML 10ML VIAL ONE (21:43)
[2021-11-03] MEDS ORDERED: DEXTROSE 5%-WATER - 50 ML IVPB ONE ×2 (01:26→10:58)
[2021-11-03] MEDS ORDERED: PIPERACILLIN/TAZOBACTAM 3.375 GM VIAL IVPB ONE ×2 (01:26→10:58)
[2021-11-03] MEDS: PIPERACILLIN/TAZOB 3.375 GM 3.375 GM in DEXTROSE 5%-WATER - 50 ML IVPB SCH ×2 (01:49→11:18)
[2021-11-03] MEDS: SODIUM CHLORIDE 1,000 ML IV SCH (05:11)
[2021-11-03] MEDS: INSULIN SLIDING SCALE (NOVOLOG) 1 VIAL SQ SCH ×2 (07:17→11:11)
[2021-11-03] MEDS: ALBUTEROL SO4 0.083% IH SOL 2.5 MG/3 ML VIAL.NEB. NEB SCH ×2 (08:05→11:33)
[2021-11-03] MEDS: AMINO ACIDS/PROTEIN HYDROLYS 30 ML LIQUID.PKT PO SCH (08:37)
[2021-11-03] MEDS: VITAMIN B COMP W-C 1 EA TABLET (NEPHRO-VITE) PO SCH (11:19)
[2021-11-03] MEDS: PREGABALIN 75 MG CAPSULE PO SCH (11:19)
[2021-11-03] MEDS: metoPROLOL SUCCINATE 25 MG TAB.SR.24H (FP) PO SCH (11:20)
[2021-11-03] MEDS: IRON POLYSACCHARIDES 150 MG CAPSULE PO SCH (11:20)
[2021-11-03 13:58] VITALS: BP 142/80; PULSE 78; TEMP 98.6
== END 2021-11-03 15:43 | disposition home or self-care (01) | DRG 244 ==
LOC: JER 15:16 → JERBED 15:31 → J6S 22:15
PROVIDERS: ADMIT Internal Medicine; ATTEND Family Medicine
DX: K57.92 Diverticulitis of intestine, part unspecified, without perforation or abscess without bleeding (principal); N17.9 Acute kidney failure, unspecified; L89.153 Pressure ulcer of sacral region, stage 3; E11.40 Type 2 diabetes mellitus with diabetic neuropathy, unspecified; E11.51 Type 2 diabetes mellitus with diabetic peripheral angiopathy without gangrene; E11.65 Type 2 diabetes mellitus with hyperglycemia; D72.829 Elevated white blood cell count, unspecified; E78.5 Hyperlipidemia, unspecified; I25.10 Atherosclerotic heart disease of native coronary artery without angina pectoris; I73.9 Peripheral vascular disease, unspecified; J44.9 Chronic obstructive pulmonary disease, unspecified; I69.351 Hemiplegia and hemiparesis following cerebral infarction affecting right dominant side; K21.9 Gastro-esophageal reflux disease without esophagitis
CPT/HCPCS: 36415; 71045-TC-FY; 72131-TC; 73502-TC-RT-FY; 80053; 81003; 82550; 82553; 82728; 82962; 83036; 83540; 83550; 83605; 84484; 84703; 85025; 85610; 85651; 85730; 86140; 86850; 86900; 86901; 87040; 87086; 93005; 93010; 93925-TC; 93978; 94640; 97116-GP; 97162-GP; 99285-25; C9803; J1756; U0003; U0005

== ENCOUNTER 2021-12-06 23:42 | Inpatient (IN) | payer OTHER ==
[2021-12-07 00:41] LABS: BASO % 0.3 % (0-2.0); EOS % 1.5 % (0-4.5); HEMATOCRIT 38.6 % (32.4-45.2); HEMOGLOBIN 12.5 GM/dL (10.7-15.3); LYMPH % 8.4 % (8-40); MCH 27.3 pg (25.7-33.7); MCHC 32.4 g/dl (32.0-36.0); MEAN CELL VOLUME 84.3 fl (80-96); MEAN PLT VOLUME 9.6 fl (7.5-11.1); MONO % 3.9 % (3.8-10.2); NEUT % 85.9 % (42.8-82.8); PLATELET COUNT 216 10^3/uL (134-434); RBC 4.57 M/mm3 (3.60-5.2); RDW 16.7 % (11.6-15.6); WHITE BLOOD COUNT 12.8 K/mm3 (4.0-10.0)
[2021-12-07 00:53] LABS: INR 1.08 (0.83-1.09); PROTHROMBIN TIME (PATIENT) 12.4 SEC (9.7-13.0)
[2021-12-07 00:54] LABS: VENOUS BASE EXCESS -7.3 mmol/L (-2-2); VENOUS PCO2 64.6 mmHg (38-52)
[2021-12-07 01:02] LABS: CALCIUM 8.5 mg/dL (8.5-10.1)
[2021-12-07 01:03] LABS: ALBUMIN 3.2 g/dl (3.4-5.0); BLOOD UREA NITROGEN 38.7 mg/dL (7-18); MAGNESIUM 2.3 mg/dL (1.8-2.4); VENOUS PH 7.159 (7.310-7.410)
[2021-12-07 01:05] LABS: PHOSPHOROUS 7.2 mg/dL (2.5-4.9)
[2021-12-07] MEDS ORDERED: ALBUTEROL SO4 2.5/IPRATROPIUM 0.5 INH SOL 3 ML VIAL.NEB. NEB ONE ×3 (01:08→18:13)
[2021-12-07] MEDS ORDERED: methylPREDNISolone NA SUCC 125 MG/2 ML VIAL IVPB ONE (01:08)
[2021-12-07 01:09] LABS: BILIRUBIN,TOTAL 0.4 mg/dL (0.2-1); CREATININE 4.9 mg/dL (0.55-1.3); TOT PROT 8.5 g/dl (6.4-8.2)
[2021-12-07] MEDS ORDERED: methylPREDNISolone NA SUCC 125 MG/2 ML VIAL ONE (01:10)
[2021-12-07 03:33] LABS: ALLENS TEST POSITIVE; ARTERIAL BLD GAS O2 SATURATION 99.1 % (95-98); ARTERIAL BLOOD GAS BASE EXCESS -6.3 mmol/L (-2-2); ARTERIAL BLOOD GAS PO2 190.6 mmHg (80-100); ARTERIAL BLOOD GAS pH 7.229 (7.350-7.450); VENT MODE PSV; VENT RATE 14
[2021-12-07] MEDS ORDERED: SODIUM CHLORIDE 500 ML IV STA (03:55)
[2021-12-07] MEDS ORDERED: SODIUM CHLORIDE 1,000 ML IV SCH (04:00)
[2021-12-07] MEDS ORDERED: ALBUTEROL SO4 0.083% IH SOL 2.5 MG/3 ML VIAL.NEB. NEB PRN (04:02)
[2021-12-07] MEDS ORDERED: DOCUSATE SODIUM 100 MG CAPSULE (FP) PO PRN (04:11)
[2021-12-07] MEDS ORDERED: PREGABALIN 50 MG CAPSULE ONE ×3 (06:30→23:08)
[2021-12-07] MEDS: PREGABALIN 50 MG CAPSULE PO SCH ×3 (06:35→23:14)
[2021-12-07] MEDS ORDERED: INSULIN SLIDING SCALE (NOVOLOG) 1 VIAL SQ SCH (07:00)
[2021-12-07] MEDS: INSULIN SLIDING SCALE (NOVOLOG) 1 VIAL SQ SCH ×4 (07:43→23:14)
[2021-12-07] MEDS ORDERED: LORazepam 2 MG/ML SDV VIAL IVPUSH ONE (08:35)
[2021-12-07] MEDS ORDERED: SILVER SULFADIAZINE 1% TOP CREAM 50 GM JAR TP ONE (09:13)
[2021-12-07] MEDS ORDERED: ASPIRIN COATED 81 MG TABLET.EC ONE (09:13)
[2021-12-07] MEDS ORDERED: methylPREDNISolone NA SUCC 40 MG/1 ML VIAL ONE ×2 (09:13→18:09)
[2021-12-07] MEDS: SILVER SULFADIAZINE 1% TOP CREAM 400 GM JAR TP SCH (09:37)
[2021-12-07] MEDS: IRON POLYSACCHARIDES 150 MG CAPSULE PO SCH (09:37)
[2021-12-07] MEDS: ASPIRIN COATED 81 MG TABLET.EC PO SCH (09:37)
[2021-12-07] MEDS: VITAMIN B COMP W-C 1 EA TABLET (NEPHRO-VITE) PO SCH (09:37)
[2021-12-07] MEDS: methylPREDNISolone NA SUCC 40 MG/1 ML VIAL IVPUSH SCH ×2 (09:38→18:24)
[2021-12-07] MEDS ORDERED: SODIUM CHLORIDE 0.45% 1,000 ML IV SCH (13:45)
[2021-12-07] MEDS ORDERED: PREGABALIN 100 MG CAPSULE ONE ×2 (14:13→23:09)
[2021-12-07] MEDS ORDERED: AZITHROMYCIN IVPB 500 MG/250 ML BAG IVPB ONE (14:13)
[2021-12-07] MEDS: ALBUTEROL SO4 2.5/IPRATROPIUM 0.5 INH SOL 3 ML VIAL.NEB. NEB SCH ×2 (17:20→20:47)
[2021-12-07] MEDS ORDERED: RIVAROXABAN 20 MG TABLET PO SCH (18:00)
[2021-12-07 18:07] LABS: EPI CELLS >36 /uL (0-25.1); HYALINE CASTS 1 /uL (0-3.1); URINE APPEARANCE CLEAR; URINE BACTERIA 727 /uL (0-1359); URINE BILIRUBIN NEGATIVE (NEGATIVE); URINE COLOR YELLOW; URINE GLUCOSE (UA) 2+ (NEGATIVE); URINE KETONE NEGATIVE (NEGATIVE); URINE LEUK ESTERASE NEGATIVE (NEGATIVE); URINE NITRITE NEGATIVE (NEGATIVE); URINE PROTEIN 1+ (NEGATIVE); URINE RBC 67 /uL (0-23.9); URINE UROBILINOGEN 0.2 mg/dL (0.2-1.0); URINE WBC 26 /uL (0-25.8)
[2021-12-07] MEDS: AZITHROMYCIN IVPB 500 MG/250 ML BAG IVPB SCH (18:45)
[2021-12-07] MEDS ORDERED: oxyCODONE HCL 5 MG TABLET PO PRN (20:41)
[2021-12-07] MEDS ORDERED: ATORVASTATIN CA 20 MG TABLET (FP) PO SCH (22:00)
[2021-12-07] MEDS ORDERED: HALOPERIDOL LACTATE 5 MG/ML IM ONE (22:20)
[2021-12-07] MEDS ORDERED: HALOPERIDOL LACTATE 5 MG/ML ONE (23:02)
[2021-12-07] MEDS ORDERED: ATORVASTATIN CA 20 MG TABLET (FP) ONE (23:08)
[2021-12-07] MEDS ORDERED: oxyCODONE HCL 5 MG TABLET ONE (23:09)
[2021-12-07] MEDS: oxyCODONE HCL 5 MG TABLET PO SCH (23:15)
[2021-12-08] MEDS: methylPREDNISolone NA SUCC 40 MG/1 ML VIAL IVPUSH SCH ×3 (02:27→17:14)
[2021-12-08] MEDS ORDERED: PREGABALIN 50 MG CAPSULE ONE (05:40)
[2021-12-08] MEDS ORDERED: PREGABALIN 100 MG CAPSULE ONE (05:40)
[2021-12-08] MEDS: PREGABALIN 50 MG CAPSULE PO SCH ×3 (05:43→21:48)
[2021-12-08 05:50] LABS: HEMATOCRIT 35.2 % (32.4-45.2); HEMOGLOBIN 11.2 GM/dL (10.7-15.3); MCH 26.5 pg (25.7-33.7); MCHC 31.9 g/dl (32.0-36.0); MEAN CELL VOLUME 83.2 fl (80-96); MEAN PLT VOLUME 10.2 fl (7.5-11.1); PLATELET COUNT 219 10^3/uL (134-434); RBC 4.24 M/mm3 (3.60-5.2); RDW 16.6 % (11.6-15.6); WHITE BLOOD COUNT 17.9 K/mm3 (4.0-10.0)
[2021-12-08 06:15] LABS: ALBUMIN 2.9 g/dl (3.4-5.0); BLOOD UREA NITROGEN 45.2 mg/dL (7-18); CALCIUM 9.3 mg/dL (8.5-10.1)
[2021-12-08 06:19] LABS: BILIRUBIN,TOTAL 0.4 mg/dL (0.2-1); CREATININE 2.2 mg/dL (0.55-1.3); TOT PROT 8.3 g/dl (6.4-8.2)
[2021-12-08] MEDS: ALBUTEROL SO4 2.5/IPRATROPIUM 0.5 INH SOL 3 ML VIAL.NEB. NEB SCH ×4 (07:40→20:30)
[2021-12-08] MEDS: INSULIN SLIDING SCALE (NOVOLOG) 1 VIAL SQ SCH ×4 (08:28→21:59)
[2021-12-08 09:14] LABS: ANISOCYTOSIS 0; MACROCYTOSIS 0
[2021-12-08] MEDS: VITAMIN B COMP W-C 1 EA TABLET (NEPHRO-VITE) PO SCH (10:56)
[2021-12-08] MEDS: oxyCODONE HCL 5 MG TABLET PO SCH ×2 (10:56→21:48)
[2021-12-08] MEDS: ASPIRIN COATED 81 MG TABLET.EC PO SCH (10:56)
[2021-12-08] MEDS: AZITHROMYCIN IVPB 500 MG/250 ML BAG IVPB SCH (10:57)
[2021-12-08] MEDS: IRON POLYSACCHARIDES 150 MG CAPSULE PO SCH (10:59)
[2021-12-08] MEDS ORDERED: INSULIN (NOVOLOG) ASPART 100 UNITS/ML 10ML VIAL ONE (12:15)
[2021-12-08] MEDS: LORazepam 1 MG TABLET PO PRN ×2 (12:36→21:47)
[2021-12-08] MEDS ORDERED: ALBUTEROL SO4 0.083% IH SOL 2.5 MG/3 ML VIAL.NEB. NEB PRN (12:42)
[2021-12-08] MEDS ORDERED: SODIUM CHLORIDE 0.45% 1,000 ML IV SCH ×2 (12:42→15:32)
[2021-12-08 14:18] VITALS: BMI 24.7
[2021-12-08] MEDS: SODIUM ZIRCONIUM CYCLOSILICATE (LOKELMA) 5 GM PACKET PO SCH ×2 (17:13→21:51)
[2021-12-08] MEDS: RIVAROXABAN 20 MG TABLET PO SCH (17:31)
[2021-12-08] MEDS: SILVER SULFADIAZINE 1% TOP CREAM 400 GM JAR TP SCH (17:40)
[2021-12-08] MEDS: DOCUSATE SODIUM 100 MG CAPSULE (FP) PO PRN (21:47)
[2021-12-08] MEDS: ATORVASTATIN CA 20 MG TABLET (FP) PO SCH (21:47)
[2021-12-09] MEDS: methylPREDNISolone NA SUCC 40 MG/1 ML VIAL IVPUSH SCH ×3 (01:40→17:12)
[2021-12-09] MEDS: INSULIN SLIDING SCALE (NOVOLOG) 1 VIAL SQ SCH ×4 (06:02→21:04)
[2021-12-09] MEDS: PREGABALIN 50 MG CAPSULE PO SCH ×3 (06:03→21:02)
[2021-12-09] MEDS: ALBUTEROL SO4 2.5/IPRATROPIUM 0.5 INH SOL 3 ML VIAL.NEB. NEB SCH ×4 (07:33→21:32)
[2021-12-09 09:38] LABS: CALCIUM 8.8 mg/dL (8.5-10.1)
[2021-12-09 09:39] LABS: ALBUMIN 2.5 g/dl (3.4-5.0)
[2021-12-09 09:40] LABS: CREATININE 1.7 mg/dL (0.55-1.3)
[2021-12-09 09:42] LABS: BILIRUBIN,TOTAL 0.3 mg/dL (0.2-1); TOT PROT 7.6 g/dl (6.4-8.2)
[2021-12-09 09:52] LABS: HEMATOCRIT 34.8 % (32.4-45.2); HEMOGLOBIN 11.2 GM/dL (10.7-15.3); MCH 26.3 pg (25.7-33.7); MCHC 32.1 g/dl (32.0-36.0); MEAN CELL VOLUME 81.9 fl (80-96); MEAN PLT VOLUME 10.1 fl (7.5-11.1); PLATELET COUNT 227 10^3/uL (134-434); RBC 4.25 M/mm3 (3.60-5.2); RDW 16.5 % (11.6-15.6); WHITE BLOOD COUNT 11.6 K/mm3 (4.0-10.0)
[2021-12-09] MEDS ORDERED: AZITHROMYCIN IVPB 500 MG/250 ML BAG IVPB SCH (10:00)
[2021-12-09] MEDS: ASPIRIN COATED 81 MG TABLET.EC PO SCH (10:16)
[2021-12-09] MEDS: VITAMIN B COMP W-C 1 EA TABLET (NEPHRO-VITE) PO SCH (10:16)
[2021-12-09] MEDS: oxyCODONE HCL 5 MG TABLET PO SCH ×2 (10:16→21:03)
[2021-12-09] MEDS: IRON POLYSACCHARIDES 150 MG CAPSULE PO SCH (10:19)
[2021-12-09] MEDS: SILVER SULFADIAZINE 1% TOP CREAM 400 GM JAR TP SCH (10:22)
[2021-12-09] MEDS ORDERED: INSULIN (NOVOLOG) ASPART 100 UNITS/ML 10ML VIAL ONE ×2 (12:13→20:49)
[2021-12-09] MEDS: RIVAROXABAN 20 MG TABLET PO SCH (17:12)
[2021-12-09] MEDS: LORazepam 1 MG TABLET PO PRN ×2 (17:15→21:02)
[2021-12-09] MEDS ORDERED: SODIUM CHLORIDE 0.45% 1,000 ML IV SCH (17:45)
[2021-12-09] MEDS: DOCUSATE SODIUM 100 MG CAPSULE (FP) PO PRN (21:02)
[2021-12-09] MEDS: ATORVASTATIN CA 20 MG TABLET (FP) PO SCH (21:02)
[2021-12-10] MEDS: methylPREDNISolone NA SUCC 40 MG/1 ML VIAL IVPUSH SCH ×2 (01:41→10:09)
[2021-12-10] MEDS: PREGABALIN 50 MG CAPSULE PO SCH ×3 (05:59→22:10)
[2021-12-10] MEDS: INSULIN SLIDING SCALE (NOVOLOG) 1 VIAL SQ SCH ×4 (05:59→22:14)
[2021-12-10] MEDS: DOCUSATE SODIUM 100 MG CAPSULE (FP) PO PRN (05:59)
[2021-12-10] MEDS: ALBUTEROL SO4 2.5/IPRATROPIUM 0.5 INH SOL 3 ML VIAL.NEB. NEB SCH ×4 (07:53→20:04)
[2021-12-10 09:14] LABS: ALBUMIN 2.3 g/dl (3.4-5.0); BLOOD UREA NITROGEN 39.2 mg/dL (7-18); CALCIUM 8.4 mg/dL (8.5-10.1)
[2021-12-10 09:17] LABS: CREATININE 1.4 mg/dL (0.55-1.3)
[2021-12-10 09:18] LABS: BILIRUBIN,TOTAL 0.4 mg/dL (0.2-1); TOT PROT 7.2 g/dl (6.4-8.2)
[2021-12-10] MEDS: LORazepam 1 MG TABLET PO PRN ×2 (10:08→20:45)
[2021-12-10] MEDS: ASPIRIN COATED 81 MG TABLET.EC PO SCH (10:08)
[2021-12-10] MEDS: IRON POLYSACCHARIDES 150 MG CAPSULE PO SCH (10:08)
[2021-12-10] MEDS: VITAMIN B COMP W-C 1 EA TABLET (NEPHRO-VITE) PO SCH (10:08)
[2021-12-10] MEDS: SILVER SULFADIAZINE 1% TOP CREAM 400 GM JAR TP SCH (10:09)
[2021-12-10] MEDS: oxyCODONE HCL 5 MG TABLET PO SCH ×2 (11:27→22:10)
[2021-12-10] MEDS: metoPROLOL SUCCINATE 25 MG TAB.SR.24H (FP) PO SCH (13:51)
[2021-12-10] MEDS: RIVAROXABAN 20 MG TABLET PO SCH (18:07)
[2021-12-10] MEDS: ATORVASTATIN CA 20 MG TABLET (FP) PO SCH (22:11)
[2021-12-10] MEDS: INSULIN (LEVEMIR) 100 UNITS/ML UNITS SQ SCH (22:11)
[2021-12-11] MEDS: INSULIN SLIDING SCALE (NOVOLOG) 1 VIAL SQ SCH ×2 (06:04→11:49)
[2021-12-11] MEDS: INSULIN (LEVEMIR) 100 UNITS/ML UNITS SQ SCH (07:29)
[2021-12-11] MEDS: PREGABALIN 50 MG CAPSULE PO SCH ×2 (07:29→13:48)
[2021-12-11] MEDS: ALBUTEROL SO4 2.5/IPRATROPIUM 0.5 INH SOL 3 ML VIAL.NEB. NEB SCH ×3 (07:32→15:12)
[2021-12-11 08:53] LABS: BASO % 0.2 % (0-2.0); EOS % 0.5 % (0-4.5); HEMATOCRIT 35.7 % (32.4-45.2); HEMOGLOBIN 11.6 GM/dL (10.7-15.3); LYMPH % 43.2 % (8-40); MCH 26.5 pg (25.7-33.7); MCHC 32.4 g/dl (32.0-36.0); MEAN PLT VOLUME 9.7 fl (7.5-11.1); MONO % 6.6 % (3.8-10.2); NEUT % 49.5 % (42.8-82.8); PLATELET COUNT 240 10^3/uL (134-434); RBC 4.35 M/mm3 (3.60-5.2); RDW 16.4 % (11.6-15.6); WHITE BLOOD COUNT 12.2 K/mm3 (4.0-10.0)
[2021-12-11 09:11] LABS: BLOOD UREA NITROGEN 37.3 mg/dL (7-18)
[2021-12-11 09:13] LABS: CALCIUM 8.5 mg/dL (8.5-10.1)
[2021-12-11 09:15] LABS: ALBUMIN 2.2 g/dl (3.4-5.0)
[2021-12-11 09:17] LABS: BILIRUBIN,TOTAL 0.3 mg/dL (0.2-1); CREATININE 1.4 mg/dL (0.55-1.3)
[2021-12-11 09:18] LABS: TOT PROT 6.6 g/dl (6.4-8.2)
[2021-12-11] MEDS: ASPIRIN COATED 81 MG TABLET.EC PO SCH (09:30)
[2021-12-11] MEDS: VITAMIN B COMP W-C 1 EA TABLET (NEPHRO-VITE) PO SCH ×2 (09:30→11:26)
[2021-12-11] MEDS: IRON POLYSACCHARIDES 150 MG CAPSULE PO SCH (09:30)
[2021-12-11] MEDS: metoPROLOL SUCCINATE 25 MG TAB.SR.24H (FP) PO SCH (09:30)
[2021-12-11] MEDS: LORazepam 1 MG TABLET PO PRN (09:31)
[2021-12-11] MEDS: oxyCODONE HCL 5 MG TABLET PO SCH (11:27)
[2021-12-11] MEDS: SILVER SULFADIAZINE 1% TOP CREAM 400 GM JAR TP SCH (13:13)
[2021-12-11] MEDS ORDERED: predniSONE 20 MG TABLET (UD) PO ONE (13:45)
[2021-12-11 15:49] VITALS: BP 114/77; PULSE 71; TEMP 98.8
== END 2021-12-11 17:23 | disposition home health service (06) | DRG 133 ==
LOC: JER 23:42 → JERBED 12-07 01:56 → J8W 12-08 06:39
PROVIDERS: ADMIT Hospitalist; ATTEND Family Medicine
DX: J96.01 Acute respiratory failure with hypoxia (principal); E11.52 Type 2 diabetes mellitus with diabetic peripheral angiopathy with gangrene; N17.9 Acute kidney failure, unspecified; E87.2 Acidosis; E11.65 Type 2 diabetes mellitus with hyperglycemia; J44.1 Chronic obstructive pulmonary disease with (acute) exacerbation; I25.10 Atherosclerotic heart disease of native coronary artery without angina pectoris; N18.9 Chronic kidney disease, unspecified; J96.02 Acute respiratory failure with hypercapnia; D72.829 Elevated white blood cell count, unspecified; D68.59 Other primary thrombophilia; E87.5 Hyperkalemia; K21.9 Gastro-esophageal reflux disease without esophagitis
CPT/HCPCS: 36415; 36600; 71045-TC-FY; 76775-TC; 80048; 80053; 81003; 82436; 82553; 82570; 82803; 82962; 83605; 83735; 83880; 84100; 84133; 84300; 84484; 85025; 85027; 85610; 85730; 87040; 87086; 87186; 93005; 93010; 94640; 94660; 97116-GP; 97161-GP; 99285-25; C9803-CS; U0003; U0005

== ENCOUNTER 2022-02-23 20:09 | Inpatient (IN) | payer OTHER ==
[2022-02-23 20:27] VITALS: BMI 25.8
[2022-02-23 21:55] LABS: EOS % 2.9 % (0-4.5); HEMATOCRIT 37.8 % (32.4-45.2); HEMOGLOBIN 12.4 GM/dL (10.7-15.3); LYMPH % 29.6 % (8-40); MCH 26.9 pg (25.7-33.7); MCHC 32.7 g/dl (32.0-36.0); MEAN CELL VOLUME 82.3 fl (80-96); MEAN PLT VOLUME 9.3 fl (7.5-11.1); MONO % 7.4 % (3.8-10.2); NEUT % 59.1 % (42.8-82.8); PLATELET COUNT 289 10^3/uL (134-434); RBC 4.59 M/mm3 (3.60-5.2); WHITE BLOOD COUNT 9.5 K/mm3 (4.0-10.0)
[2022-02-23] MEDS ORDERED: VANCOMYCIN 1 GRAM (PRE-DOCKED) 1,000 MG/250 ML BAG IVPB ONE (21:57)
[2022-02-23] MEDS ORDERED: PIPERACILLIN/TAZOB 3.375 GM 3.375 GM/50 ML BAG IVPB ONE (21:58)
[2022-02-23] MEDS ORDERED: VANCOMYCIN 1 GM in D5W (PRE-DOCKED) 1,000 MG/250 ML IVPB ONE (22:00)
[2022-02-23] MEDS ORDERED: PIPERACILLIN/TAZOB 4.5 GM 4.5 GM in DEXTROSE 5%-WATER 100 ML IVPB ONE (22:00)
[2022-02-23] MEDS ORDERED: PIPERACILLIN/TAZOB 3.375 GM 3.375 GM in DEXTROSE 5%-WATER - 50 ML IVPB ONE (22:24)
[2022-02-23 22:29] LABS: CHLORIDE 103 mmol/L (98-107)
[2022-02-23 23:01] LABS: GLUCOSE,RANDOM 225 mg/dL (74-106)
[2022-02-23 23:03] LABS: CREATININE 1.4 mg/dL (0.55-1.3); SODIUM 136 mmol/L (136-145)
[2022-02-23 23:04] LABS: ALBUMIN 2.8 g/dl (3.4-5.0); BILIRUBIN,TOTAL 0.3 mg/dL (0.2-1); CALCIUM 8.1 mg/dL (8.5-10.1); CO2 26 mmol/L (21-32); SGOT/AST 11 U/L (15-37); TOT PROT 7.3 g/dl (6.4-8.2)
[2022-02-23 23:05] LABS: ALK PHOS 184 U/L (45-117); SGPT/ALT 7 U/L (13-61)
[2022-02-23] MEDS ORDERED: BUDESONIDE 0.25 MG/2ML INH SUSP VIAL NEB PRN (23:53)
[2022-02-24] MEDS ORDERED: PATIENT'S OWN MEDICATION (NON-FORMULARY) (Pregabalin [Lyrica -] 150 MG Capsule) PO SCH (06:00)
[2022-02-24] MEDS ORDERED: PREGABALIN 50 MG CAPSULE ONE ×2 (06:16→17:11)
[2022-02-24] MEDS: PREGABALIN 100 MG, PREGABALIN 50 MG PO SCH ×2 (06:20→17:19)
[2022-02-24 07:54] LABS: BASO % 0.6 % (0-2.0); EOS % 3.3 % (0-4.5); HEMATOCRIT 36.7 % (32.4-45.2); HEMOGLOBIN 11.8 GM/dL (10.7-15.3); LYMPH % 23.5 % (8-40); MCH 26.7 pg (25.7-33.7); MCHC 32.2 g/dl (32.0-36.0); MEAN CELL VOLUME 82.9 fl (80-96); MEAN PLT VOLUME 9.8 fl (7.5-11.1); MONO % 8.5 % (3.8-10.2); NEUT % 64.1 % (42.8-82.8); PLATELET COUNT 260 10^3/uL (134-434); RBC 4.43 M/mm3 (3.60-5.2); RDW 15.5 % (11.6-15.6); WHITE BLOOD COUNT 8.3 K/mm3 (4.0-10.0)
[2022-02-24 08:12] LABS: ALBUMIN 2.7 g/dl (3.4-5.0); BLOOD UREA NITROGEN 13.4 mg/dL (7-18); CALCIUM 8.6 mg/dL (8.5-10.1)
[2022-02-24 08:14] LABS: CREATININE 1.4 mg/dL (0.55-1.3)
[2022-02-24 08:16] LABS: BILIRUBIN,TOTAL 0.5 mg/dL (0.2-1); TOT PROT 7.2 g/dl (6.4-8.2)
[2022-02-24] MEDS ORDERED: PIPERACILLIN/TAZOB 4.5 GM 4.5 GM in DEXTROSE 5%-WATER 100 ML IVPB SCH (09:00)
[2022-02-24 09:27] LABS: MAGNESIUM 2.1 mg/dL (1.8-2.4)
[2022-02-24] MEDS ORDERED: PIPERACILLIN/TAZOB 4.5 GM 4.5 GM/100 ML BAG IVPB ONE (09:36)
[2022-02-24] MEDS ORDERED: metoPROLOL SUCCINATE 25 MG TAB.SR.24H (FP) PO ONE (09:42)
[2022-02-24] MEDS ORDERED: ASPIRIN 81 MG CHEWABLE TABLETS ONE (09:42)
[2022-02-24] MEDS ORDERED: oxyCODONE HCL 5 MG TABLET ONE (11:22)
[2022-02-24] MEDS: INSULIN SLIDING SCALE (NOVOLOG) 1 VIAL SQ SCH ×3 (11:53→17:20)
[2022-02-24] MEDS: metoPROLOL SUCCINATE 25 MG TAB.SR.24H (FP) PO SCH (11:54)
[2022-02-24] MEDS: ASPIRIN 81 MG CHEWABLE TABLETS PO SCH (11:54)
[2022-02-24] MEDS: VITAMIN B COMP W-C 1 EA TABLET (NEPHRO-VITE) PO SCH (11:54)
[2022-02-24] MEDS ORDERED: SODIUM CHLORIDE 1,000 ML IV SCH (13:30)
[2022-02-24 14:07] LABS: URINE APPEARANCE CLEAR; URINE BILIRUBIN NEGATIVE (NEGATIVE); URINE COLOR YELLOW; URINE GLUCOSE (UA) NEGATIVE (NEGATIVE); URINE KETONE NEGATIVE (NEGATIVE); URINE LEUK ESTERASE NEGATIVE (NEGATIVE); URINE NITRITE NEGATIVE (NEGATIVE); URINE PROTEIN NEGATIVE (NEGATIVE); URINE UROBILINOGEN 0.2 mg/dL (0.2-1.0)
[2022-02-24 14:16] LABS: HCG,QUALITATIVE URINE Negative
[2022-02-24] MEDS ORDERED: PREGABALIN 100 MG CAPSULE ONE (17:11)
[2022-02-24] MEDS ORDERED: PIPERACILLIN/TAZOB 3.375 GM 3.375 GM/50 ML BAG IVPB ONE (17:12)
[2022-02-24] MEDS: PIPERACILLIN/TAZOB 3.375 GM 3.375 GM in DEXTROSE 5%-WATER - 50 ML IVPB SCH (17:19)
[2022-02-24] MEDS ORDERED: HYDROmorphone HCL CARPU-JECT 2 MG/1 ML DISP.SYRIN IVPB PRN (20:12)
[2022-02-24] MEDS ORDERED: HYDROmorphone HCl 2 MG/ML VIAL IM PRN (20:12)
[2022-02-24] MEDS ORDERED: ACETAMINOPHEN 1000 MG/100 ML BAG IVPB PRN (20:28)
[2022-02-24] MEDS ORDERED: HYDROmorphone HCl 2 MG/ML VIAL IVPUSH ONE (20:34)
[2022-02-24] MEDS: RIVAROXABAN 20 MG TABLET PO SCH (20:52)
[2022-02-24] MEDS: SODIUM CHLORIDE 0.45% 1,000 ML IV SCH (21:01)
[2022-02-24] MEDS ORDERED: VANCOMYCIN 750 MG in DEXTROSE 5%-WATER - 150 ML IVPB SCH (22:00)
[2022-02-25] MEDS ORDERED: PREGABALIN 50 MG CAPSULE ONE ×3 (00:06→15:29)
[2022-02-25] MEDS ORDERED: ROSUVASTATIN CA 20 MG TABLET ONE (00:06)
[2022-02-25] MEDS: INSULIN SLIDING SCALE (NOVOLOG) 1 VIAL SQ SCH ×4 (00:11→18:52)
[2022-02-25] MEDS: ROSUVASTATIN CA 10 MG TABLET PO SCH (00:11)
[2022-02-25] MEDS: PREGABALIN 100 MG, PREGABALIN 50 MG PO SCH ×3 (00:11→15:30)
[2022-02-25] MEDS ORDERED: HYDROmorphone HCl 2 MG/ML VIAL ONE ×4 (02:42→20:05)
[2022-02-25] MEDS: HYDROmorphone HCl 2 MG/ML VIAL IVPUSH PRN ×4 (02:50→20:11)
[2022-02-25] MEDS: PIPERACILLIN/TAZOB 3.375 GM 3.375 GM in DEXTROSE 5%-WATER - 50 ML IVPB SCH ×3 (03:30→19:47)
[2022-02-25] MEDS ORDERED: PREGABALIN 100 MG CAPSULE ONE ×2 (06:13→15:29)
[2022-02-25 07:41] LABS: BASO % 0.7 % (0-2.0); EOS % 4.6 % (0-4.5); HEMATOCRIT 35.6 % (32.4-45.2); HEMOGLOBIN 11.7 GM/dL (10.7-15.3); LYMPH % 25.5 % (8-40); MCH 27.1 pg (25.7-33.7); MCHC 32.7 g/dl (32.0-36.0); MEAN CELL VOLUME 82.9 fl (80-96); MEAN PLT VOLUME 9.5 fl (7.5-11.1); MONO % 8.4 % (3.8-10.2); NEUT % 60.8 % (42.8-82.8); PLATELET COUNT 271 10^3/uL (134-434); RDW 15.8 % (11.6-15.6); WHITE BLOOD COUNT 8.8 K/mm3 (4.0-10.0)
[2022-02-25 07:58] LABS: ALBUMIN 2.6 g/dl (3.4-5.0); BLOOD UREA NITROGEN 15.2 mg/dL (7-18)
[2022-02-25 08:01] LABS: CREATININE 1.7 mg/dL (0.55-1.3)
[2022-02-25 08:02] LABS: BILIRUBIN,TOTAL 0.3 mg/dL (0.2-1); TOT PROT 6.9 g/dl (6.4-8.2)
[2022-02-25] MEDS ORDERED: metoPROLOL SUCCINATE 25 MG TAB.SR.24H (FP) PO ONE (10:34)
[2022-02-25] MEDS ORDERED: ASPIRIN 81 MG CHEWABLE TABLETS ONE (10:34)
[2022-02-25] MEDS ORDERED: PIPERACILLIN/TAZOB 3.375 GM 3.375 GM/50 ML BAG IVPB ONE ×2 (10:35→18:54)
[2022-02-25] MEDS: VITAMIN B COMP W-C 1 EA TABLET (NEPHRO-VITE) PO SCH (12:00)
[2022-02-25] MEDS: metoPROLOL SUCCINATE 25 MG TAB.SR.24H (FP) PO SCH (12:00)
[2022-02-25] MEDS: ASPIRIN 81 MG CHEWABLE TABLETS PO SCH (12:00)
[2022-02-25] MEDS: SODIUM CHLORIDE 0.45% 1,000 ML IV SCH ×2 (15:54→20:21)
[2022-02-25] MEDS: RIVAROXABAN 20 MG TABLET PO SCH (19:47)
[2022-02-26] MEDS ORDERED: PREGABALIN 50 MG CAPSULE ONE ×4 (00:20→22:25)
[2022-02-26] MEDS ORDERED: ROSUVASTATIN CA 20 MG TABLET ONE (00:20)
[2022-02-26] MEDS ORDERED: PREGABALIN 100 MG CAPSULE ONE ×4 (00:20→22:24)
[2022-02-26] MEDS ORDERED: HYDROmorphone HCl 2 MG/ML VIAL ONE ×4 (00:22→14:46)
[2022-02-26] MEDS: INSULIN SLIDING SCALE (NOVOLOG) 1 VIAL SQ SCH ×5 (00:45→23:00)
[2022-02-26] MEDS: ROSUVASTATIN CA 10 MG TABLET PO SCH ×2 (00:49→22:54)
[2022-02-26] MEDS: PREGABALIN 100 MG, PREGABALIN 50 MG PO SCH ×4 (00:49→22:54)
[2022-02-26] MEDS: HYDROmorphone HCl 2 MG/ML VIAL IVPUSH PRN ×5 (00:50→20:10)
[2022-02-26] MEDS ORDERED: PIPERACILLIN/TAZOB 3.375 GM 3.375 GM/50 ML BAG IVPB ONE ×3 (02:36→17:16)
[2022-02-26] MEDS: PIPERACILLIN/TAZOB 3.375 GM 3.375 GM in DEXTROSE 5%-WATER - 50 ML IVPB SCH ×3 (02:56→18:24)
[2022-02-26 07:55] LABS: CHLORIDE 111 mmol/L (98-107); SODIUM 142 mmol/L (136-145)
[2022-02-26 08:03] LABS: ALBUMIN 2.4 g/dl (3.4-5.0); ANION GAP 4 MMOL/L (8-16); CALCIUM 8.3 mg/dL (8.5-10.1); CO2 28 mmol/L (21-32); GLUCOSE,RANDOM 156 mg/dL (74-106)
[2022-02-26 08:06] LABS: CREATININE 1.5 mg/dL (0.55-1.3); SGOT/AST 9 U/L (15-37)
[2022-02-26 08:08] LABS: BILIRUBIN,TOTAL 0.5 mg/dL (0.2-1); TOT PROT 6.4 g/dl (6.4-8.2)
[2022-02-26 08:12] LABS: ALK PHOS 148 U/L (45-117); SGPT/ALT < 6 U/L (13-61)
[2022-02-26] MEDS ORDERED: metoPROLOL SUCCINATE 25 MG TAB.SR.24H (FP) PO ONE (10:25)
[2022-02-26] MEDS ORDERED: ASPIRIN 81 MG CHEWABLE TABLETS ONE (10:26)
[2022-02-26] MEDS ORDERED: HYDROmorphone HCL 2 MG TABLET ONE (10:29)
[2022-02-26] MEDS: ASPIRIN 81 MG CHEWABLE TABLETS PO SCH (10:30)
[2022-02-26] MEDS: metoPROLOL SUCCINATE 25 MG TAB.SR.24H (FP) PO SCH (10:30)
[2022-02-26] MEDS: VITAMIN B COMP W-C 1 EA TABLET (NEPHRO-VITE) PO SCH (10:30)
[2022-02-26] MEDS: RIVAROXABAN 20 MG TABLET PO SCH (18:24)
[2022-02-27] MEDS: HYDROmorphone HCl 2 MG/ML VIAL IVPUSH PRN ×5 (00:18→20:14)
[2022-02-27] MEDS ORDERED: PIPERACILLIN/TAZOBACTAM 3.375 GM VIAL IVPB ONE ×3 (02:18→17:55)
[2022-02-27] MEDS ORDERED: DEXTROSE 5%-WATER - 50 ML IVPB ONE ×3 (02:18→17:55)
[2022-02-27] MEDS: PIPERACILLIN/TAZOB 3.375 GM 3.375 GM in DEXTROSE 5%-WATER - 50 ML IVPB SCH ×3 (02:39→18:03)
[2022-02-27] MEDS ORDERED: PREGABALIN 50 MG CAPSULE ONE ×3 (05:52→21:56)
[2022-02-27] MEDS ORDERED: PREGABALIN 100 MG CAPSULE ONE ×3 (05:52→21:56)
[2022-02-27] MEDS: PREGABALIN 100 MG, PREGABALIN 50 MG PO SCH ×3 (05:59→22:44)
[2022-02-27] MEDS: INSULIN SLIDING SCALE (NOVOLOG) 1 VIAL SQ SCH ×4 (06:17→22:55)
[2022-02-27] MEDS ORDERED: INSULIN (LEVEMIR) 100 UNITS/ML UNITS SQ ONE (07:13)
[2022-02-27 08:14] LABS: CHLORIDE 111 mmol/L (98-107); SODIUM 143 mmol/L (136-145)
[2022-02-27 08:16] LABS: CALCIUM 8.2 mg/dL (8.5-10.1)
[2022-02-27 08:17] LABS: ALBUMIN 2.3 g/dl (3.4-5.0); ANION GAP 6 MMOL/L (8-16); BLOOD UREA NITROGEN 10.3 mg/dL (7-18); CO2 26 mmol/L (21-32); GLUCOSE,RANDOM 139 mg/dL (74-106)
[2022-02-27 08:20] LABS: CREATININE 1.2 mg/dL (0.55-1.3); SGOT/AST 7 U/L (15-37)
[2022-02-27 08:22] LABS: BILIRUBIN,TOTAL 0.4 mg/dL (0.2-1); TOT PROT 6.3 g/dl (6.4-8.2)
[2022-02-27 08:23] LABS: ALK PHOS 139 U/L (45-117)
[2022-02-27 08:24] LABS: SGPT/ALT < 6 U/L (13-61)
[2022-02-27] MEDS: VITAMIN B COMP W-C 1 EA TABLET (NEPHRO-VITE) PO SCH (10:27)
[2022-02-27] MEDS: metoPROLOL SUCCINATE 25 MG TAB.SR.24H (FP) PO SCH (10:27)
[2022-02-27] MEDS: LORazepam 1 MG TABLET PO SCH ×2 (10:27→22:45)
[2022-02-27] MEDS: ASPIRIN 81 MG CHEWABLE TABLETS PO SCH (10:27)
[2022-02-27] MEDS: RIVAROXABAN 20 MG TABLET PO SCH (18:02)
[2022-02-27] MEDS: ROSUVASTATIN CA 10 MG TABLET PO SCH (22:45)
[2022-02-28] MEDS ORDERED: HYDROmorphone HCl 2 MG/ML VIAL IVPB PRN (01:06)
[2022-02-28] MEDS ORDERED: PIPERACILLIN/TAZOBACTAM 3.375 GM VIAL IVPB ONE ×4 (01:43→18:42)
[2022-02-28] MEDS ORDERED: DEXTROSE 5%-WATER - 50 ML IVPB ONE ×4 (01:43→18:42)
[2022-02-28] MEDS: PIPERACILLIN/TAZOB 3.375 GM 3.375 GM in DEXTROSE 5%-WATER - 50 ML IVPB SCH ×3 (02:01→18:34)
[2022-02-28] MEDS ORDERED: HYDROmorphone HCl 2 MG/ML VIAL IVPUSH PRN (03:01)
[2022-02-28] MEDS: oxyCODONE HCL 5 MG TABLET PO PRN ×3 (03:37→21:01)
[2022-02-28] MEDS ORDERED: PREGABALIN 100 MG CAPSULE ONE ×2 (06:01→21:18)
[2022-02-28] MEDS ORDERED: PREGABALIN 50 MG CAPSULE ONE ×2 (06:01→21:19)
[2022-02-28] MEDS: PREGABALIN 100 MG, PREGABALIN 50 MG PO SCH ×3 (06:18→21:28)
[2022-02-28] MEDS: INSULIN SLIDING SCALE (NOVOLOG) 1 VIAL SQ SCH ×4 (07:39→21:29)
[2022-02-28] MEDS: LORazepam 1 MG TABLET PO SCH ×2 (09:23→21:27)
[2022-02-28] MEDS: ASPIRIN 81 MG CHEWABLE TABLETS PO SCH (09:23)
[2022-02-28] MEDS: metoPROLOL SUCCINATE 25 MG TAB.SR.24H (FP) PO SCH (09:24)
[2022-02-28] MEDS: VITAMIN B COMP W-C 1 EA TABLET (NEPHRO-VITE) PO SCH (10:39)
[2022-02-28] MEDS ORDERED: HYDROmorphone HCl 2 MG/ML VIAL IVPB ONE (12:15)
[2022-02-28] MEDS ORDERED: LIDOCAINE HCL 1%, 10 MG/ML (20ML VIAL) ONE (14:15)
[2022-02-28] MEDS ORDERED: MIDAZOLAM HCL 2 MG/2 ML SINGLE DOSE VIAL ONE (16:12)
[2022-02-28] MEDS ORDERED: LIDOCAINE HCL 1%, 10 MG/ML (20ML VIAL) NR ONE ×2 (16:24)
[2022-02-28] MEDS ORDERED: BUDESONIDE 0.25 MG/2ML INH SUSP VIAL NEB PRN (17:26)
[2022-02-28] MEDS: RIVAROXABAN 20 MG TABLET PO SCH (18:33)
[2022-02-28] MEDS: ROSUVASTATIN CA 10 MG TABLET PO SCH (21:28)
[2022-03-01] MEDS: PIPERACILLIN/TAZOB 3.375 GM 3.375 GM in DEXTROSE 5%-WATER - 50 ML IVPB SCH ×3 (02:30→17:35)
[2022-03-01] MEDS ORDERED: PIPERACILLIN/TAZOBACTAM 3.375 GM VIAL IVPB ONE ×3 (03:51→17:29)
[2022-03-01] MEDS ORDERED: DEXTROSE 5%-WATER - 50 ML IVPB ONE ×3 (03:51→17:29)
[2022-03-01] MEDS ORDERED: PREGABALIN 100 MG CAPSULE ONE (06:43)
[2022-03-01] MEDS ORDERED: PREGABALIN 50 MG CAPSULE ONE (06:43)
[2022-03-01] MEDS: PREGABALIN 100 MG, PREGABALIN 50 MG PO SCH ×2 (06:52→15:10)
[2022-03-01] MEDS: INSULIN SLIDING SCALE (NOVOLOG) 1 VIAL SQ SCH ×4 (07:48→21:14)
[2022-03-01] MEDS: ASPIRIN 81 MG CHEWABLE TABLETS PO SCH (09:09)
[2022-03-01] MEDS: VITAMIN B COMP W-C 1 EA TABLET (NEPHRO-VITE) PO SCH (09:10)
[2022-03-01] MEDS: LORazepam 1 MG TABLET PO SCH ×2 (09:10→21:14)
[2022-03-01] MEDS: metoPROLOL SUCCINATE 25 MG TAB.SR.24H (FP) PO SCH (09:11)
[2022-03-01] MEDS: oxyCODONE HCL 5 MG TABLET PO PRN (09:12)
[2022-03-01] MEDS ORDERED: INSULIN (NOVOLOG) ASPART 100 UNITS/ML 10ML VIAL ONE (12:11)
[2022-03-01] MEDS: PREGABALIN 75 MG CAPSULE PO SCH ×2 (15:05→21:14)
[2022-03-01] MEDS: RIVAROXABAN 20 MG TABLET PO SCH (17:35)
[2022-03-01] MEDS: ROSUVASTATIN CA 10 MG TABLET PO SCH (21:15)
[2022-03-02] MEDS ORDERED: PIPERACILLIN/TAZOBACTAM 3.375 GM VIAL IVPB ONE (02:31)
[2022-03-02] MEDS ORDERED: DEXTROSE 5%-WATER - 50 ML IVPB ONE (02:32)
[2022-03-02] MEDS: PIPERACILLIN/TAZOB 3.375 GM 3.375 GM in DEXTROSE 5%-WATER - 50 ML IVPB SCH (02:37)
[2022-03-02] MEDS: PREGABALIN 75 MG CAPSULE PO SCH ×3 (05:52→21:21)
[2022-03-02] MEDS: INSULIN SLIDING SCALE (NOVOLOG) 1 VIAL SQ SCH ×4 (06:08→21:40)
[2022-03-02] MEDS: INSULIN (LEVEMIR) 100 UNITS/ML UNITS SQ SCH ×2 (06:08→21:21)
[2022-03-02] MEDS: INSULIN (NOVOLOG) ASPART 100 UNITS/ML 10ML VIAL SQ SCH ×3 (06:09→17:39)
[2022-03-02] MEDS ORDERED: VANCOMYCIN/WATER FOR INJ (PEG) 1,000 MG/200 ML BAG IVPB SCH (07:15)
[2022-03-02 08:46] LABS: CHLORIDE 115 mmol/L (98-107); SODIUM 146 mmol/L (136-145)
[2022-03-02 08:50] LABS: ALBUMIN 2.1 g/dl (3.4-5.0); ANION GAP 6 MMOL/L (8-16); BLOOD UREA NITROGEN 12.4 mg/dL (7-18); CO2 25 mmol/L (21-32); GLUCOSE,RANDOM 116 mg/dL (74-106)
[2022-03-02 08:53] LABS: CREATININE 1.2 mg/dL (0.55-1.3); SGOT/AST 8 U/L (15-37)
[2022-03-02 08:55] LABS: BILIRUBIN,TOTAL 0.3 mg/dL (0.2-1); TOT PROT 6.2 g/dl (6.4-8.2)
[2022-03-02 08:56] LABS: ALK PHOS 110 U/L (45-117)
[2022-03-02 09:02] LABS: SGPT/ALT < 6 U/L (13-61)
[2022-03-02] MEDS: LORazepam 1 MG TABLET PO SCH ×2 (09:59→21:21)
[2022-03-02] MEDS: ASPIRIN 81 MG CHEWABLE TABLETS PO SCH (10:00)
[2022-03-02] MEDS: VITAMIN B COMP W-C 1 EA TABLET (NEPHRO-VITE) PO SCH (10:00)
[2022-03-02] MEDS: metoPROLOL SUCCINATE 25 MG TAB.SR.24H (FP) PO SCH (10:00)
[2022-03-02] MEDS: VANCOMYCIN 1 GRAM (PRE-DOCKED) 1,000 MG/250 ML BAG IVPB SCH ×2 (10:01→21:21)
[2022-03-02] MEDS: oxyCODONE HCL 5 MG TABLET PO PRN ×2 (10:17→16:58)
[2022-03-02] MEDS ORDERED: HYDROmorphone HCl 2 MG/ML VIAL IVPB PRN (15:40)
[2022-03-02] MEDS: RIVAROXABAN 20 MG TABLET PO SCH (18:13)
[2022-03-02] MEDS: ROSUVASTATIN CA 10 MG TABLET PO SCH (21:21)
[2022-03-02] MEDS ORDERED: INSULIN (LEVEMIR) 100 UNITS/ML UNITS SQ SCH (22:00)
[2022-03-03] MEDS: oxyCODONE HCL 5 MG TABLET PO PRN ×4 (00:18→23:13)
[2022-03-03] MEDS: PREGABALIN 75 MG CAPSULE PO SCH ×3 (05:33→21:45)
[2022-03-03] MEDS: INSULIN (LEVEMIR) 100 UNITS/ML UNITS SQ SCH ×2 (06:11→21:45)
[2022-03-03] MEDS: INSULIN (NOVOLOG) ASPART 100 UNITS/ML 10ML VIAL SQ SCH ×3 (06:11→16:35)
[2022-03-03] MEDS: INSULIN SLIDING SCALE (NOVOLOG) 1 VIAL SQ SCH ×4 (06:12→21:46)
[2022-03-03] MEDS: VANCOMYCIN 1 GRAM (PRE-DOCKED) 1,000 MG/250 ML BAG IVPB SCH ×2 (08:22→20:26)
[2022-03-03] MEDS: ASPIRIN 81 MG CHEWABLE TABLETS PO SCH (09:11)
[2022-03-03] MEDS: LORazepam 1 MG TABLET PO SCH ×2 (09:11→21:45)
[2022-03-03] MEDS: metoPROLOL SUCCINATE 25 MG TAB.SR.24H (FP) PO SCH (09:11)
[2022-03-03] MEDS: VITAMIN B COMP W-C 1 EA TABLET (NEPHRO-VITE) PO SCH (09:11)
[2022-03-03] MEDS ORDERED: FLUCONAZOLE 150 MG TABLET PO ONE (17:00)
[2022-03-03] MEDS: RIVAROXABAN 20 MG TABLET PO SCH (17:37)
[2022-03-03] MEDS: ROSUVASTATIN CA 10 MG TABLET PO SCH (21:45)
[2022-03-04] MEDS: INSULIN (LEVEMIR) 100 UNITS/ML UNITS SQ SCH ×2 (06:30→21:35)
[2022-03-04] MEDS: INSULIN SLIDING SCALE (NOVOLOG) 1 VIAL SQ SCH ×4 (06:31→21:36)
[2022-03-04] MEDS: INSULIN (NOVOLOG) ASPART 100 UNITS/ML 10ML VIAL SQ SCH ×3 (06:31→17:56)
[2022-03-04] MEDS: PREGABALIN 75 MG CAPSULE PO SCH ×3 (06:43→21:34)
[2022-03-04] MEDS: oxyCODONE HCL 5 MG TABLET PO PRN ×3 (06:43→22:42)
[2022-03-04] MEDS: VITAMIN B COMP W-C 1 EA TABLET (NEPHRO-VITE) PO SCH (10:23)
[2022-03-04] MEDS: VANCOMYCIN 1 GRAM (PRE-DOCKED) 1,000 MG/250 ML BAG IVPB SCH (10:23)
[2022-03-04] MEDS: ASPIRIN 81 MG CHEWABLE TABLETS PO SCH (10:24)
[2022-03-04] MEDS: metoPROLOL SUCCINATE 25 MG TAB.SR.24H (FP) PO SCH (10:24)
[2022-03-04] MEDS: LORazepam 1 MG TABLET PO SCH ×2 (10:24→21:33)
[2022-03-04] MEDS ORDERED: SENNOSIDES 8.6MG TABLET (FP) PO PRN (15:16)
[2022-03-04] MEDS: RIVAROXABAN 20 MG TABLET PO SCH (17:33)
[2022-03-04] MEDS: DOCUSATE SODIUM 100 MG CAPSULE (FP) PO SCH (21:33)
[2022-03-04] MEDS: ROSUVASTATIN CA 10 MG TABLET PO SCH (21:34)
[2022-03-05] MEDS: PREGABALIN 75 MG CAPSULE PO SCH ×3 (06:43→22:15)
[2022-03-05] MEDS: INSULIN (LEVEMIR) 100 UNITS/ML UNITS SQ SCH ×2 (06:43→22:19)
[2022-03-05] MEDS: INSULIN (NOVOLOG) ASPART 100 UNITS/ML 10ML VIAL SQ SCH ×3 (06:44→16:41)
[2022-03-05] MEDS: INSULIN SLIDING SCALE (NOVOLOG) 1 VIAL SQ SCH ×4 (06:44→22:20)
[2022-03-05 10:56] LABS: BASO % 0.6 % (0-2.0); EOS % 6.9 % (0-4.5); HEMATOCRIT 32.4 % (32.4-45.2); HEMOGLOBIN 10.5 GM/dL (10.7-15.3); LYMPH % 23.8 % (8-40); MCH 26.4 pg (25.7-33.7); MCHC 32.4 g/dl (32.0-36.0); MEAN CELL VOLUME 81.5 fl (80-96); MEAN PLT VOLUME 9.6 fl (7.5-11.1); MONO % 5.2 % (3.8-10.2); NEUT % 63.5 % (42.8-82.8); PLATELET COUNT 209 10^3/uL (134-434); RBC 3.98 M/mm3 (3.60-5.2); RDW 15.4 % (11.6-15.6); WHITE BLOOD COUNT 9.7 K/mm3 (4.0-10.0)
[2022-03-05 11:20] LABS: ALBUMIN 2.4 g/dl (3.4-5.0); BLOOD UREA NITROGEN 19.7 mg/dL (7-18); CALCIUM 8.5 mg/dL (8.5-10.1)
[2022-03-05 11:23] LABS: CREATININE 1.3 mg/dL (0.55-1.3)
[2022-03-05] MEDS: ASPIRIN 81 MG CHEWABLE TABLETS PO SCH (11:24)
[2022-03-05] MEDS: oxyCODONE HCL 5 MG TABLET PO PRN ×3 (11:24→22:30)
[2022-03-05 11:25] LABS: BILIRUBIN,TOTAL 0.2 mg/dL (0.2-1); TOT PROT 6.6 g/dl (6.4-8.2)
[2022-03-05] MEDS: VITAMIN B COMP W-C 1 EA TABLET (NEPHRO-VITE) PO SCH (11:25)
[2022-03-05] MEDS: metoPROLOL SUCCINATE 25 MG TAB.SR.24H (FP) PO SCH (11:25)
[2022-03-05] MEDS: LORazepam 1 MG TABLET PO SCH ×2 (11:25→22:14)
[2022-03-05] MEDS: SULFAMETHOXAZOLE/TRIMETHOPRIM 800MG/160MG D.S. TABLET PO SCH ×2 (11:25→22:14)
[2022-03-05] MEDS ORDERED: FLUCONAZOLE 150 MG TABLET PO ONE (15:00)
[2022-03-05] MEDS: NYSTATIN POWDER 100,000 UNITS/GM - 15 GM TOPICAL POWDER TP SCH ×2 (15:23→22:18)
[2022-03-05] MEDS: RIVAROXABAN 20 MG TABLET PO SCH (17:27)
[2022-03-05] MEDS: ROSUVASTATIN CA 10 MG TABLET PO SCH (22:14)
[2022-03-05] MEDS: DOCUSATE SODIUM 100 MG CAPSULE (FP) PO SCH (22:14)
[2022-03-06] MEDS: PREGABALIN 75 MG CAPSULE PO SCH ×3 (05:34→22:05)
[2022-03-06] MEDS: INSULIN (LEVEMIR) 100 UNITS/ML UNITS SQ SCH ×2 (06:02→22:05)
[2022-03-06] MEDS: INSULIN (NOVOLOG) ASPART 100 UNITS/ML 10ML VIAL SQ SCH ×3 (06:02→16:45)
[2022-03-06] MEDS: INSULIN SLIDING SCALE (NOVOLOG) 1 VIAL SQ SCH ×4 (06:02→22:06)
[2022-03-06] MEDS: ASPIRIN 81 MG CHEWABLE TABLETS PO SCH (09:36)
[2022-03-06] MEDS: VITAMIN B COMP W-C 1 EA TABLET (NEPHRO-VITE) PO SCH (09:36)
[2022-03-06] MEDS: SULFAMETHOXAZOLE/TRIMETHOPRIM 800MG/160MG D.S. TABLET PO SCH ×2 (09:36→22:05)
[2022-03-06] MEDS: LORazepam 1 MG TABLET PO SCH ×2 (09:36→22:05)
[2022-03-06] MEDS: metoPROLOL SUCCINATE 25 MG TAB.SR.24H (FP) PO SCH (09:37)
[2022-03-06] MEDS: oxyCODONE HCL 5 MG TABLET PO PRN ×2 (11:20→18:51)
[2022-03-06] MEDS: NYSTATIN POWDER 100,000 UNITS/GM - 15 GM TOPICAL POWDER TP SCH ×2 (13:34→22:06)
[2022-03-06] MEDS: RIVAROXABAN 20 MG TABLET PO SCH (18:51)
[2022-03-06] MEDS: ROSUVASTATIN CA 10 MG TABLET PO SCH (22:05)
[2022-03-06] MEDS: DOCUSATE SODIUM 100 MG CAPSULE (FP) PO SCH (22:05)
[2022-03-07] MEDS: PREGABALIN 75 MG CAPSULE PO SCH ×2 (05:59→14:25)
[2022-03-07] MEDS: INSULIN SLIDING SCALE (NOVOLOG) 1 VIAL SQ SCH ×2 (06:00→12:00)
[2022-03-07] MEDS: INSULIN (LEVEMIR) 100 UNITS/ML UNITS SQ SCH (06:00)
[2022-03-07] MEDS: INSULIN (NOVOLOG) ASPART 100 UNITS/ML 10ML VIAL SQ SCH ×2 (06:00→12:00)
[2022-03-07] MEDS: ASPIRIN 81 MG CHEWABLE TABLETS PO SCH (09:19)
[2022-03-07] MEDS: LORazepam 1 MG TABLET PO SCH (09:19)
[2022-03-07] MEDS: metoPROLOL SUCCINATE 25 MG TAB.SR.24H (FP) PO SCH (09:19)
[2022-03-07] MEDS: NYSTATIN POWDER 100,000 UNITS/GM - 15 GM TOPICAL POWDER TP SCH (09:20)
[2022-03-07] MEDS: SULFAMETHOXAZOLE/TRIMETHOPRIM 800MG/160MG D.S. TABLET PO SCH (09:20)
[2022-03-07] MEDS: VITAMIN B COMP W-C 1 EA TABLET (NEPHRO-VITE) PO SCH (09:20)
[2022-03-07] MEDS: oxyCODONE HCL 5 MG TABLET PO PRN (09:20)
[2022-03-07 15:04] VITALS: BP 107/72; PULSE 72; TEMP 98.3
== END 2022-03-07 15:24 | disposition home or self-care (01) | DRG 197 ==
LOC: JER 20:09 → JERBED 23:42 → J8W 02-26 19:22
PROVIDERS: ADMIT Hospitalist; ATTEND Family Medicine
PROC: 0QBQ0ZX Excision of Right Toe Phalanx, Open Approach, Diagnostic (ICD-10-PCS; 2022-02-28)
PROC: 0Y9M0ZX Drainage of Right Foot, Open Approach, Diagnostic (ICD-10-PCS; principal; 2022-02-28 16:00)
DX: E11.51 Type 2 diabetes mellitus with diabetic peripheral angiopathy without gangrene (principal); U07.1 COVID-19; I48.91 Unspecified atrial fibrillation; Z79.01 Long term (current) use of anticoagulants; I69.354 Hemiplegia and hemiparesis following cerebral infarction affecting left non-dominant side; J44.9 Chronic obstructive pulmonary disease, unspecified; L03.115 Cellulitis of right lower limb; N17.9 Acute kidney failure, unspecified; I12.9 Hypertensive chronic kidney disease with stage 1 through stage 4 chronic kidney disease, or unspecified chronic kidney disease; N18.9 Chronic kidney disease, unspecified; E11.22 Type 2 diabetes mellitus with diabetic chronic kidney disease; I25.2 Old myocardial infarction; Z79.4 Long term (current) use of insulin; Z89.612 Acquired absence of left leg above knee; I25.10 Atherosclerotic heart disease of native coronary artery without angina pectoris; D68.59 Other primary thrombophilia; E11.65 Type 2 diabetes mellitus with hyperglycemia; L02.611 Cutaneous abscess of right foot
CPT/HCPCS: 36415; 71045-TC-FY; 73630-TC-RT-FY; 73718-TC-RT; 75635-TC; 80053; 81003; 82728; 82962; 83036; 83615; 83735; 84703; 85025; 85379; 86140; 87040; 87070; 87075; 87186; 87205; 88305-TC; 88311-TC; 93005; 93010; 99285-25; C9803-CS; G0480; Q9967; U0003; U0005

== ENCOUNTER 2022-04-09 15:41 | Inpatient (IN) | payer OTHER ==
[2022-04-09] MEDS ORDERED: ACETAMINOPHEN 1000 MG/100 ML BAG IVPB ONE (16:43)
[2022-04-09] MEDS ORDERED: PIPERACILLIN/TAZOB 4.5 GM 4.5 GM in DEXTROSE 5%-WATER 100 ML IVPB ONE (17:09)
[2022-04-09] MEDS ORDERED: VANCOMYCIN 1 GM in D5W (PRE-DOCKED) 1,000 MG/250 ML IVPB ONE (17:14)
[2022-04-09 17:23] LABS: BASO % 1.5 % (0-2.0); EOS % 5.4 % (0-4.5); HEMATOCRIT 35.7 % (32.4-45.2); HEMOGLOBIN 11.7 GM/dL (10.7-15.3); LYMPH % 51.9 % (8-40); MCH 26.4 pg (25.7-33.7); MCHC 32.6 g/dl (32.0-36.0); MEAN CELL VOLUME 80.9 fl (80-96); MEAN PLT VOLUME 9.4 fl (7.5-11.1); MONO % 5.6 % (3.8-10.2); NEUT % 35.6 % (42.8-82.8); PLATELET COUNT 304 10^3/uL (134-434); RBC 4.41 M/mm3 (3.60-5.2); RDW 16.8 % (11.6-15.6); WHITE BLOOD COUNT 10.1 K/mm3 (4.0-10.0)
[2022-04-09 17:49] LABS: CALCIUM 8.6 mg/dL (8.5-10.1)
[2022-04-09 17:50] LABS: ALBUMIN 2.8 g/dl (3.4-5.0); BLOOD UREA NITROGEN 12.1 mg/dL (7-18)
[2022-04-09] MEDS ORDERED: VANCOMYCIN/WATER FOR INJ (PEG) 1,000 MG/200 ML BAG IVPB ONE (17:50)
[2022-04-09] MEDS ORDERED: PIPERACILLIN/TAZOB 4.5 GM 4.5 GM/100 ML BAG IVPB ONE (17:50)
[2022-04-09] MEDS ORDERED: ACETAMINOPHEN INJECTION 100 ML IVPB ONE ×2 (17:50→23:08)
[2022-04-09 17:53] LABS: CREATININE 1.2 mg/dL (0.55-1.3)
[2022-04-09 17:54] LABS: BILIRUBIN,TOTAL 0.2 mg/dL (0.2-1); TOT PROT 7.7 g/dl (6.4-8.2)
[2022-04-09 18:10] LABS: ERYTHROCYTE SEDIMENTATION RATE 45 mm/hr (0-20)
[2022-04-09] MEDS ORDERED: POLYETHYLENE GLYCOL (HEALTHYLAX) 3350 17 GM PACKET PO PRN (19:50)
[2022-04-09] MEDS ORDERED: morphine CARPU-JECT 4 MG/1 ML DISP.SYRIN IVPUSH ONE (20:00)
[2022-04-09] MEDS ORDERED: morphine SULFATE 4 MG/ML VIAL ONE (20:27)
[2022-04-09] MEDS ORDERED: ACETAMINOPHEN 325 MG TABLET (FP) PO PRN (22:40)
[2022-04-09] MEDS: INSULIN SLIDING SCALE (NOVOLOG) 1 VIAL SQ SCH (23:07)
[2022-04-09] MEDS: ACETAMINOPHEN 1000 MG/100 ML BAG IVPB PRN (23:16)
[2022-04-10] MEDS ORDERED: ACETAMINOPHEN 1000 MG/100 ML BAG IVPB PRN
[2022-04-10] MEDS ORDERED: morphine SULFATE 4 MG/ML VIAL IVPUSH ONE (03:56)
[2022-04-10] MEDS ORDERED: morphine SULFATE 4 MG/ML VIAL ONE (03:57)
[2022-04-10] MEDS ORDERED: PIPERACILLIN/TAZOB 3.375 GM 3.375 GM/50 ML BAG IVPB ONE ×2 (04:05→13:59)
[2022-04-10] MEDS: PIPERACILLIN/TAZOB 3.375 GM 3.375 GM in DEXTROSE 5%-WATER - 50 ML IVPB SCH ×3 (05:17→18:51)
[2022-04-10 07:23] LABS: BASO % 0.7 % (0-2.0); EOS % 6.9 % (0-4.5); HEMATOCRIT 37.6 % (32.4-45.2); HEMOGLOBIN 11.8 GM/dL (10.7-15.3); MCH 25.7 pg (25.7-33.7); MCHC 31.4 g/dl (32.0-36.0); MEAN CELL VOLUME 81.9 fl (80-96); MEAN PLT VOLUME 9.6 fl (7.5-11.1); MONO % 5.2 % (3.8-10.2); NEUT % 50.2 % (42.8-82.8); PLATELET COUNT 310 10^3/uL (134-434); RBC 4.59 M/mm3 (3.60-5.2); RDW 16.8 % (11.6-15.6); WHITE BLOOD COUNT 10.9 K/mm3 (4.0-10.0)
[2022-04-10] MEDS: INSULIN SLIDING SCALE (NOVOLOG) 1 VIAL SQ SCH ×3 (07:25→18:16)
[2022-04-10 07:30] LABS: INR 1.02 (0.83-1.09); PROTHROMBIN TIME (PATIENT) 11.7 SEC (9.7-13.0)
[2022-04-10 07:33] LABS: ACTIVATED PTT 31.2 SECONDS (25.2-36.5)
[2022-04-10 07:45] LABS: BLOOD UREA NITROGEN 15.1 mg/dL (7-18); CALCIUM 8.6 mg/dL (8.5-10.1)
[2022-04-10 07:47] LABS: MAGNESIUM 1.8 mg/dL (1.8-2.4)
[2022-04-10 07:49] LABS: CREATININE 1.3 mg/dL (0.55-1.3)
[2022-04-10] MEDS ORDERED: VANCOMYCIN/WATER FOR INJ (PEG) 1,000 MG/200 ML BAG IVPB ONE ×2 (08:02→23:39)
[2022-04-10] MEDS: VANCOMYCIN 1 GM/200 ML PREMIX BAG IVPB SCH (08:31)
[2022-04-10] MEDS ORDERED: PREGABALIN 75 MG CAPSULE PO SCH (10:00)
[2022-04-10] MEDS ORDERED: LORazepam 2 MG TABLET PO SCH (10:00)
[2022-04-10] MEDS ORDERED: PREGABALIN 50 MG CAPSULE ONE ×2 (10:50→23:38)
[2022-04-10] MEDS ORDERED: PREGABALIN 100 MG CAPSULE ONE (10:51)
[2022-04-10] MEDS ORDERED: LORazepam 1 MG TABLET ONE ×2 (10:51→23:38)
[2022-04-10] MEDS: LORazepam 1 MG TABLET PO SCH (11:00)
[2022-04-10] MEDS ORDERED: HYDROmorphone HCl 2 MG/ML VIAL IVPB ONE (12:29)
[2022-04-10] MEDS ORDERED: HYDROmorphone HCl 2 MG/ML VIAL ONE (13:59)
[2022-04-10 14:31] VITALS: RESP 18
[2022-04-10] MEDS ORDERED: ALBUTEROL SO4 2.5/IPRATROPIUM 0.5 INH SOL 3 ML VIAL.NEB. NEB PRN (17:27)
[2022-04-10] MEDS ORDERED: ENOXAPARIN NA (PORCINE) 60 MG/0.6 ML DISP.SYRIN SQ ONE (23:39)
[2022-04-11] MEDS ORDERED: ACETAMINOPHEN 325 MG TABLET (FP) PO PRN
[2022-04-11] MEDS ORDERED: oxyCODONE HCL 5 MG TABLET ONE (00:04)
[2022-04-11] MEDS: oxyCODONE HCL 5 MG TABLET PO PRN ×4 (00:10→23:24)
[2022-04-11] MEDS: LORazepam 1 MG TABLET PO SCH ×3 (00:18→23:16)
[2022-04-11] MEDS: ENOXAPARIN NA (PORCINE) 60 MG/0.6 ML DISP.SYRIN SQ SCH ×3 (00:18→23:29)
[2022-04-11] MEDS: PREGABALIN 50 MG CAPSULE PO SCH ×3 (00:18→23:16)
[2022-04-11] MEDS: VANCOMYCIN 1 GM/200 ML PREMIX BAG IVPB SCH (00:19)
[2022-04-11] MEDS: INSULIN SLIDING SCALE (NOVOLOG) 1 VIAL SQ SCH ×5 (02:27→23:41)
[2022-04-11] MEDS ORDERED: INSULIN (NOVOLOG) ASPART 100 UNITS/ML 10ML VIAL ONE (06:36)
[2022-04-11] MEDS ORDERED: VANCOMYCIN 1 GM/200 ML PREMIX BAG IVPB SCH (07:00)
[2022-04-11] MEDS: metoPROLOL SUCCINATE 25 MG TAB.SR.24H (FP) PO SCH (09:49)
[2022-04-11] MEDS: ACETAMINOPHEN 1000 MG/100 ML BAG IVPB PRN (10:02)
[2022-04-11] MEDS: PIPERACILLIN/TAZOB 3.375 GM 3.375 GM in DEXTROSE 5%-WATER - 50 ML IVPB SCH (11:18)
[2022-04-11] MEDS: CEFAZOLIN 1 GM in DEXTROSE 5%-WATER - 50 ML IVPB SCH ×2 (11:57→17:39)
[2022-04-11 14:38] VITALS: BMI 24.9
[2022-04-11] MEDS: HYDROmorphone HCl 2 MG/ML VIAL IVPB PRN (17:39)
[2022-04-11] MEDS: AMINO ACIDS/PROTEIN HYDROLYS 30 ML LIQUID.PKT PO SCH (17:39)
[2022-04-12] MEDS: HYDROmorphone HCl 2 MG/ML VIAL IVPB PRN ×3 (03:22→17:21)
[2022-04-12] MEDS: CEFAZOLIN 1 GM in DEXTROSE 5%-WATER - 50 ML IVPB SCH ×3 (03:49→17:30)
[2022-04-12] MEDS: INSULIN SLIDING SCALE (NOVOLOG) 1 VIAL SQ SCH ×4 (07:19→21:20)
[2022-04-12] MEDS: AMINO ACIDS/PROTEIN HYDROLYS 30 ML LIQUID.PKT PO SCH ×2 (08:51→17:25)
[2022-04-12] MEDS: metoPROLOL SUCCINATE 25 MG TAB.SR.24H (FP) PO SCH (09:06)
[2022-04-12] MEDS: LORazepam 1 MG TABLET PO SCH ×2 (09:06→21:19)
[2022-04-12] MEDS: PREGABALIN 50 MG CAPSULE PO SCH ×2 (09:06→21:19)
[2022-04-12] MEDS: MULTIVITAMINS (DAILY MVI) TABLET (FP) PO SCH (10:41)
[2022-04-12] MEDS: ASCORBIC ACID 500 MG TABLET (FP) PO SCH (10:41)
[2022-04-12] MEDS: ENOXAPARIN NA (PORCINE) 60 MG/0.6 ML DISP.SYRIN SQ SCH ×2 (10:41→21:18)
[2022-04-12] MEDS: ACETAMINOPHEN 1000 MG/100 ML BAG IVPB PRN (11:06)
[2022-04-12] MEDS: oxyCODONE HCL 5 MG TABLET PO PRN ×2 (14:45→21:18)
[2022-04-12 15:41] LABS: URINE APPEARANCE CLEAR; URINE BILIRUBIN NEGATIVE (NEGATIVE); URINE COLOR YELLOW; URINE GLUCOSE (UA) NEGATIVE (NEGATIVE); URINE KETONE NEGATIVE (NEGATIVE); URINE LEUK ESTERASE NEGATIVE (NEGATIVE); URINE NITRITE NEGATIVE (NEGATIVE); URINE PROTEIN NEGATIVE (NEGATIVE); URINE UROBILINOGEN 0.2 mg/dL (0.2-1.0)
[2022-04-13] MEDS: CEFAZOLIN 1 GM in DEXTROSE 5%-WATER - 50 ML IVPB SCH ×3 (01:24→17:10)
[2022-04-13] MEDS ORDERED: INSULIN (NOVOLOG) ASPART 100 UNITS/ML 10ML VIAL ONE (05:26)
[2022-04-13] MEDS: oxyCODONE HCL 5 MG TABLET PO PRN ×2 (06:18→23:54)
[2022-04-13] MEDS: INSULIN SLIDING SCALE (NOVOLOG) 1 VIAL SQ SCH ×4 (06:47→22:03)
[2022-04-13] MEDS: HYDROmorphone HCl 2 MG/ML VIAL IVPB PRN ×2 (08:50→17:09)
[2022-04-13] MEDS: AMINO ACIDS/PROTEIN HYDROLYS 30 ML LIQUID.PKT PO SCH ×2 (08:56→17:10)
[2022-04-13] MEDS: PREGABALIN 50 MG CAPSULE PO SCH ×2 (09:01→21:59)
[2022-04-13] MEDS: MULTIVITAMINS (DAILY MVI) TABLET (FP) PO SCH (09:01)
[2022-04-13] MEDS: ASCORBIC ACID 500 MG TABLET (FP) PO SCH (09:01)
[2022-04-13] MEDS: metoPROLOL SUCCINATE 25 MG TAB.SR.24H (FP) PO SCH (09:02)
[2022-04-13] MEDS: LORazepam 1 MG TABLET PO SCH ×2 (09:02→21:59)
[2022-04-13] MEDS: ENOXAPARIN NA (PORCINE) 60 MG/0.6 ML DISP.SYRIN SQ SCH ×2 (09:04→22:00)
[2022-04-14] MEDS: CEFAZOLIN 1 GM in DEXTROSE 5%-WATER - 50 ML IVPB SCH ×3 (01:35→17:51)
[2022-04-14] MEDS: HYDROmorphone HCl 2 MG/ML VIAL IVPB PRN ×2 (06:19→14:08)
[2022-04-14] MEDS: INSULIN SLIDING SCALE (NOVOLOG) 1 VIAL SQ SCH ×3 (06:26→16:42)
[2022-04-14] MEDS: AMINO ACIDS/PROTEIN HYDROLYS 30 ML LIQUID.PKT PO SCH ×2 (08:40→16:42)
[2022-04-14] MEDS: ENOXAPARIN NA (PORCINE) 60 MG/0.6 ML DISP.SYRIN SQ SCH (09:40)
[2022-04-14] MEDS: MULTIVITAMINS (DAILY MVI) TABLET (FP) PO SCH (09:41)
[2022-04-14] MEDS: LORazepam 1 MG TABLET PO SCH (09:41)
[2022-04-14] MEDS: PREGABALIN 50 MG CAPSULE PO SCH (09:41)
[2022-04-14] MEDS: metoPROLOL SUCCINATE 25 MG TAB.SR.24H (FP) PO SCH (09:41)
[2022-04-14] MEDS: ASCORBIC ACID 500 MG TABLET (FP) PO SCH (09:41)
[2022-04-14] MEDS ORDERED: INSULIN (NOVOLOG) ASPART 100 UNITS/ML 10ML VIAL ONE (11:05)
[2022-04-14 14:54] VITALS: BP 113/65; PULSE 64; TEMP 98.2
== END 2022-04-14 19:04 | disposition home health service (06) | DRG 344 ==
LOC: JER 15:41 → JERBED 19:21 → J6S 04-11 02:28
PROVIDERS: ADMIT Hospitalist; ATTEND Family Medicine
DX: E11.69 Type 2 diabetes mellitus with other specified complication (principal); M86.9 Osteomyelitis, unspecified; E11.628 Type 2 diabetes mellitus with other skin complications; E11.22 Type 2 diabetes mellitus with diabetic chronic kidney disease; E11.40 Type 2 diabetes mellitus with diabetic neuropathy, unspecified; E11.51 Type 2 diabetes mellitus with diabetic peripheral angiopathy without gangrene; E11.59 Type 2 diabetes mellitus with other circulatory complications; E11.610 Type 2 diabetes mellitus with diabetic neuropathic arthropathy; D64.9 Anemia, unspecified; E78.5 Hyperlipidemia, unspecified; F41.9 Anxiety disorder, unspecified; G89.29 Other chronic pain; I12.9 Hypertensive chronic kidney disease with stage 1 through stage 4 chronic kidney disease, or unspecified chronic kidney disease; I73.9 Peripheral vascular disease, unspecified; J44.9 Chronic obstructive pulmonary disease, unspecified; L03.90 Cellulitis, unspecified; L08.9 Local infection of the skin and subcutaneous tissue, unspecified; M54.10 Radiculopathy, site unspecified; M54.9 Dorsalgia, unspecified; M79.673 Pain in unspecified foot; M79.89 Other specified soft tissue disorders; N18.9 Chronic kidney disease, unspecified
CPT/HCPCS: 36415; 73630-TC-RT-FY; 80048; 80053; 81003; 82962; 83735; 85025; 85610; 85651; 85730; 86140; 87040; 93005; 93010; 93926-TC; 93971-TC; 97161-GP; 99285-25; C9803-CS; U0003; U0005

== ENCOUNTER 2022-05-06 12:29 | Inpatient (IN) | payer OTHER ==
[2022-05-06 12:50] VITALS: BMI 22.6
[2022-05-06] MEDS ORDERED: TRIMETHOBENZAMIDE HCL 200MG/2ML INJ IM ONE ×2 (13:46→14:32)
[2022-05-06 14:15] LABS: BASO % 1.4 % (0-2.0); EOS % 4.5 % (0-4.5); HEMOGLOBIN 12.4 GM/dL (10.7-15.3); LYMPH % 26.3 % (8-40); MCH 26.1 pg (25.7-33.7); MCHC 31.9 g/dl (32.0-36.0); MEAN CELL VOLUME 81.8 fl (80-96); MEAN PLT VOLUME 8.8 fl (7.5-11.1); MONO % 5.7 % (3.8-10.2); NEUT % 62.1 % (42.8-82.8); PLATELET COUNT 389 10^3/uL (134-434); RBC 4.76 M/mm3 (3.60-5.2); RDW 17.2 % (11.6-15.6); WHITE BLOOD COUNT 7.5 K/mm3 (4.0-10.0)
[2022-05-06 14:16] LABS: INR 1.39 (0.83-1.09)
[2022-05-06 14:25] LABS: ALBUMIN 3.2 g/dl (3.4-5.0); BLOOD UREA NITROGEN 9.4 mg/dL (7-18); CALCIUM 9.3 mg/dL (8.5-10.1)
[2022-05-06] MEDS ORDERED: ACETAMINOPHEN 1000 MG/100 ML BAG IVPB ONE ×2 (14:25→23:02)
[2022-05-06 14:29] LABS: CREATININE 1.3 mg/dL (0.55-1.3)
[2022-05-06 14:30] LABS: BILIRUBIN,TOTAL 0.3 mg/dL (0.2-1); TOT PROT 7.7 g/dl (6.4-8.2)
[2022-05-06] MEDS ORDERED: ACETAMINOPHEN INJECTION 100 ML IVPB ONE (14:32)
[2022-05-06] MEDS ORDERED: morphine SULFATE 4 MG/ML VIAL IVPUSH ONE (16:18)
[2022-05-06] MEDS ORDERED: morphine SULFATE 4 MG/ML VIAL ONE (16:30)
[2022-05-06] MEDS ORDERED: DOCUSATE SODIUM 100 MG CAPSULE (FP) PO PRN (22:58)
[2022-05-06] MEDS ORDERED: SENNOSIDES 8.6MG TABLET (FP) PO PRN (22:58)
[2022-05-07] MEDS ORDERED: oxyCODONE HCL 5 MG TABLET PO PRN (00:02)
[2022-05-07] MEDS: INSULIN (LEVEMIR) 100 UNITS/ML UNITS SQ SCH (06:17)
[2022-05-07] MEDS: PREGABALIN 75 MG CAPSULE PO SCH ×3 (06:17→21:34)
[2022-05-07] MEDS: INSULIN SLIDING SCALE (NOVOLOG) 1 VIAL SQ SCH ×4 (06:17→21:35)
[2022-05-07] MEDS: ALBUTEROL SO4 0.083% IH SOL 2.5 MG/3 ML VIAL.NEB. NEB SCH ×4 (07:50→20:18)
[2022-05-07] MEDS: LORazepam 1 MG TABLET PO SCH ×2 (09:01→21:34)
[2022-05-07] MEDS: metoPROLOL SUCCINATE 25 MG TAB.SR.24H (FP) PO SCH (09:03)
[2022-05-07] MEDS: ASPIRIN 81 MG CHEWABLE TABLETS PO SCH (09:03)
[2022-05-07 10:15] LABS: BASO % 0.8 % (0-2.0); EOS % 7.9 % (0-4.5); HEMATOCRIT 39.1 % (32.4-45.2); HEMOGLOBIN 12.3 GM/dL (10.7-15.3); LYMPH % 40.2 % (8-40); MCH 25.7 pg (25.7-33.7); MCHC 31.4 g/dl (32.0-36.0); MEAN CELL VOLUME 81.9 fl (80-96); MEAN PLT VOLUME 9.2 fl (7.5-11.1); MONO % 6.6 % (3.8-10.2); NEUT % 44.5 % (42.8-82.8); PLATELET COUNT 362 10^3/uL (134-434); RBC 4.78 M/mm3 (3.60-5.2); WHITE BLOOD COUNT 7.7 K/mm3 (4.0-10.0)
[2022-05-07 10:37] LABS: ALBUMIN 2.8 g/dl (3.4-5.0)
[2022-05-07 10:40] LABS: CREATININE 1.3 mg/dL (0.55-1.3)
[2022-05-07 10:41] LABS: BILIRUBIN,TOTAL 0.4 mg/dL (0.2-1)
[2022-05-07] MEDS ORDERED: ACETAMINOPHEN 1000 MG/100 ML BAG IVPB PRN (14:44)
[2022-05-07] MEDS: morphine SULFATE 4 MG/ML VIAL IVPUSH PRN ×2 (15:07→21:34)
[2022-05-07] MEDS: RIVAROXABAN 20 MG TABLET PO SCH (17:07)
[2022-05-07] MEDS: ROSUVASTATIN CA 10 MG TABLET PO SCH (21:34)
[2022-05-08] MEDS: INSULIN (LEVEMIR) 100 UNITS/ML UNITS SQ SCH (06:16)
[2022-05-08] MEDS: PREGABALIN 75 MG CAPSULE PO SCH ×3 (06:16→21:25)
[2022-05-08] MEDS: morphine SULFATE 4 MG/ML VIAL IVPUSH PRN ×3 (06:16→19:25)
[2022-05-08] MEDS: ALBUTEROL SO4 0.083% IH SOL 2.5 MG/3 ML VIAL.NEB. NEB SCH ×4 (07:40→19:40)
[2022-05-08] MEDS: metoPROLOL SUCCINATE 25 MG TAB.SR.24H (FP) PO SCH (09:23)
[2022-05-08] MEDS: ASPIRIN 81 MG CHEWABLE TABLETS PO SCH (09:23)
[2022-05-08] MEDS: LORazepam 1 MG TABLET PO SCH ×2 (09:25→21:25)
[2022-05-08] MEDS: INSULIN SLIDING SCALE (NOVOLOG) 1 VIAL SQ SCH ×5 (11:51→21:25)
[2022-05-08] MEDS: RIVAROXABAN 20 MG TABLET PO SCH (17:04)
[2022-05-08] MEDS ORDERED: SODIUM CHLORIDE NASAL SPRAY 44 ML BOTTLE NS PRN ×2 (20:11→20:13)
[2022-05-08] MEDS: NYSTATIN 100,000 UNIT/GM TOPICAL CREAM 15 GM TUBE TP SCH (21:24)
[2022-05-08] MEDS: ROSUVASTATIN CA 10 MG TABLET PO SCH (21:25)
[2022-05-09] MEDS: morphine SULFATE 4 MG/ML VIAL IVPUSH PRN ×4 (01:42→22:53)
[2022-05-09] MEDS: PREGABALIN 75 MG CAPSULE PO SCH ×3 (06:35→21:01)
[2022-05-09] MEDS: INSULIN SLIDING SCALE (NOVOLOG) 1 VIAL SQ SCH ×4 (06:39→21:01)
[2022-05-09] MEDS: INSULIN (LEVEMIR) 100 UNITS/ML UNITS SQ SCH (06:39)
[2022-05-09] MEDS ORDERED: ALBUTEROL SO4 0.083% IH SOL 2.5 MG/3 ML VIAL.NEB. NEB ONE (08:16)
[2022-05-09] MEDS: ALBUTEROL SO4 0.083% IH SOL 2.5 MG/3 ML VIAL.NEB. NEB SCH ×4 (08:52→20:05)
[2022-05-09 09:13] LABS: BASO % 0.7 % (0-2.0); EOS % 5.4 % (0-4.5); HEMATOCRIT 35.1 % (32.4-45.2); HEMOGLOBIN 10.8 GM/dL (10.7-15.3); LYMPH % 27.6 % (8-40); MCH 25.4 pg (25.7-33.7); MCHC 30.7 g/dl (32.0-36.0); MEAN CELL VOLUME 82.6 fl (80-96); MONO % 6.8 % (3.8-10.2); NEUT % 59.5 % (42.8-82.8); PLATELET COUNT 328 10^3/uL (134-434); RBC 4.25 M/mm3 (3.60-5.2); WHITE BLOOD COUNT 11.4 K/mm3 (4.0-10.0)
[2022-05-09] MEDS: LORazepam 1 MG TABLET PO SCH ×2 (09:28→21:00)
[2022-05-09] MEDS: ASPIRIN 81 MG CHEWABLE TABLETS PO SCH (09:28)
[2022-05-09] MEDS: NYSTATIN 100,000 UNIT/GM TOPICAL CREAM 15 GM TUBE TP SCH ×2 (09:29→21:01)
[2022-05-09] MEDS: metoPROLOL SUCCINATE 25 MG TAB.SR.24H (FP) PO SCH (09:29)
[2022-05-09 09:33] LABS: CALCIUM 8.6 mg/dL (8.5-10.1)
[2022-05-09 09:34] LABS: ALBUMIN 2.7 g/dl (3.4-5.0)
[2022-05-09 09:37] LABS: CREATININE 1.2 mg/dL (0.55-1.3)
[2022-05-09 09:38] LABS: TOT PROT 6.9 g/dl (6.4-8.2)
[2022-05-09 09:39] LABS: BILIRUBIN,TOTAL 0.4 mg/dL (0.2-1)
[2022-05-09] MEDS: RIVAROXABAN 20 MG TABLET PO SCH (17:08)
[2022-05-09] MEDS: ROSUVASTATIN CA 10 MG TABLET PO SCH (21:01)
[2022-05-10] MEDS: INSULIN (LEVEMIR) 100 UNITS/ML UNITS SQ SCH (06:05)
[2022-05-10] MEDS: INSULIN SLIDING SCALE (NOVOLOG) 1 VIAL SQ SCH ×4 (06:05→21:32)
[2022-05-10] MEDS: PREGABALIN 75 MG CAPSULE PO SCH ×3 (06:05→21:26)
[2022-05-10] MEDS: morphine SULFATE 4 MG/ML VIAL IVPUSH PRN ×3 (06:10→19:30)
[2022-05-10] MEDS: ALBUTEROL SO4 0.083% IH SOL 2.5 MG/3 ML VIAL.NEB. NEB SCH ×4 (08:35→20:13)
[2022-05-10] MEDS: ASPIRIN 81 MG CHEWABLE TABLETS PO SCH (10:23)
[2022-05-10] MEDS: NYSTATIN 100,000 UNIT/GM TOPICAL CREAM 15 GM TUBE TP SCH ×2 (10:24→21:32)
[2022-05-10] MEDS: LORazepam 1 MG TABLET PO SCH ×2 (10:24→21:26)
[2022-05-10] MEDS: MUPIROCIN 2% TOPICAL OINTMENT 22 GM TUBE TP SCH (10:24)
[2022-05-10] MEDS: metoPROLOL SUCCINATE 25 MG TAB.SR.24H (FP) PO SCH (10:24)
[2022-05-10] MEDS: MULTIVITAMINS THER W-MINERALS COMBO TABLET (FP) PO SCH (14:00)
[2022-05-10] MEDS: ASCORBIC ACID 250 MG TABLET (FP) PO SCH ×2 (15:00→21:26)
[2022-05-10] MEDS: RIVAROXABAN 20 MG TABLET PO SCH (18:48)
[2022-05-10] MEDS: ROSUVASTATIN CA 10 MG TABLET PO SCH (21:26)
[2022-05-11] MEDS: morphine SULFATE 4 MG/ML VIAL IVPUSH PRN ×4 (01:30→19:51)
[2022-05-11] MEDS: PREGABALIN 75 MG CAPSULE PO SCH ×3 (06:13→21:14)
[2022-05-11] MEDS: INSULIN (LEVEMIR) 100 UNITS/ML UNITS SQ SCH (06:13)
[2022-05-11] MEDS: INSULIN SLIDING SCALE (NOVOLOG) 1 VIAL SQ SCH ×4 (06:13→21:20)
[2022-05-11] MEDS: ALBUTEROL SO4 0.083% IH SOL 2.5 MG/3 ML VIAL.NEB. NEB SCH ×4 (07:56→20:05)
[2022-05-11] MEDS: MULTIVITAMINS THER W-MINERALS COMBO TABLET (FP) PO SCH (10:16)
[2022-05-11] MEDS: ASPIRIN 81 MG CHEWABLE TABLETS PO SCH (10:16)
[2022-05-11] MEDS: metoPROLOL SUCCINATE 25 MG TAB.SR.24H (FP) PO SCH (10:16)
[2022-05-11] MEDS: LORazepam 1 MG TABLET PO SCH ×2 (10:16→21:15)
[2022-05-11] MEDS: ASCORBIC ACID 250 MG TABLET (FP) PO SCH ×2 (10:17→21:14)
[2022-05-11] MEDS: MUPIROCIN 2% TOPICAL OINTMENT 22 GM TUBE TP SCH (10:18)
[2022-05-11] MEDS: NYSTATIN 100,000 UNIT/GM TOPICAL CREAM 15 GM TUBE TP SCH ×2 (10:19→21:15)
[2022-05-11] MEDS: ROSUVASTATIN CA 10 MG TABLET PO SCH (21:14)
[2022-05-12] MEDS: PREGABALIN 75 MG CAPSULE PO SCH ×3 (05:45→21:49)
[2022-05-12] MEDS: morphine SULFATE 4 MG/ML VIAL IVPUSH PRN ×3 (05:45→19:31)
[2022-05-12] MEDS: INSULIN SLIDING SCALE (NOVOLOG) 1 VIAL SQ SCH ×4 (06:51→21:13)
[2022-05-12] MEDS: INSULIN (LEVEMIR) 100 UNITS/ML UNITS SQ SCH (06:51)
[2022-05-12] MEDS: LORazepam 1 MG TABLET PO SCH ×2 (09:34→21:48)
[2022-05-12] MEDS: MULTIVITAMINS THER W-MINERALS COMBO TABLET (FP) PO SCH (09:34)
[2022-05-12] MEDS: ASCORBIC ACID 250 MG TABLET (FP) PO SCH ×2 (09:34→21:49)
[2022-05-12] MEDS: ASPIRIN 81 MG CHEWABLE TABLETS PO SCH (09:35)
[2022-05-12] MEDS: metoPROLOL SUCCINATE 25 MG TAB.SR.24H (FP) PO SCH (09:37)
[2022-05-12] MEDS: MUPIROCIN 2% TOPICAL OINTMENT 22 GM TUBE TP SCH (10:50)
[2022-05-12] MEDS ORDERED: NITROGLYCERIN 50 MG/10 ML VIAL IVPB ONE (14:28)
[2022-05-12] MEDS ORDERED: LIDOCAINE HCL 1%, 10 MG/ML (20ML VIAL) ONE (14:28)
[2022-05-12] MEDS ORDERED: VERAPAMIL HCL 5 MG/2 ML VIAL IVPUSH ONE (14:30)
[2022-05-12] MEDS ORDERED: MIDAZOLAM HCL 2 MG/2 ML SINGLE DOSE VIAL ONE (14:59)
[2022-05-12] MEDS ORDERED: PROPOFOL 40 ML ONE (15:00)
[2022-05-12] MEDS ORDERED: ceFAZolin SODIUM 1 GM VIAL IVPB ONE (15:30)
[2022-05-12] MEDS ORDERED: ceFAZolin SODIUM 1 GM VIAL ONE (15:58)
[2022-05-12] MEDS ORDERED: ONDANSETRON 4 MG/2 ML VIAL IVPUSH PRN (17:27)
[2022-05-12] MEDS ORDERED: SODIUM CHLORIDE NASAL SPRAY 44 ML BOTTLE NS PRN (17:35)
[2022-05-12] MEDS ORDERED: SENNOSIDES 8.6MG TABLET (FP) PO PRN (17:35)
[2022-05-12] MEDS: NYSTATIN 100,000 UNIT/GM TOPICAL CREAM 15 GM TUBE TP SCH ×2 (19:16→21:49)
[2022-05-12] MEDS ORDERED: morphine SULFATE 4 MG/ML VIAL ONE (19:29)
[2022-05-12] MEDS: LACTATED RINGERS SOLUTION 1,000 ML IV SCH (21:09)
[2022-05-12] MEDS: ROSUVASTATIN CA 10 MG TABLET PO SCH (21:48)
[2022-05-12] MEDS: DOCUSATE SODIUM 100 MG CAPSULE (FP) PO PRN (21:52)
[2022-05-13] MEDS: morphine SULFATE 4 MG/ML VIAL IVPUSH PRN ×4 (01:40→23:35)
[2022-05-13] MEDS: PREGABALIN 75 MG CAPSULE PO SCH ×3 (06:37→21:26)
[2022-05-13] MEDS: INSULIN (LEVEMIR) 100 UNITS/ML UNITS SQ SCH (06:40)
[2022-05-13] MEDS: INSULIN SLIDING SCALE (NOVOLOG) 1 VIAL SQ SCH ×4 (06:41→21:30)
[2022-05-13] MEDS: MULTIVITAMINS THER W-MINERALS COMBO TABLET (FP) PO SCH (09:59)
[2022-05-13] MEDS: ASPIRIN 81 MG CHEWABLE TABLETS PO SCH (09:59)
[2022-05-13] MEDS: ASCORBIC ACID 250 MG TABLET (FP) PO SCH ×2 (09:59→21:26)
[2022-05-13] MEDS: LORazepam 1 MG TABLET PO SCH ×2 (10:00→21:26)
[2022-05-13] MEDS: metoPROLOL SUCCINATE 25 MG TAB.SR.24H (FP) PO SCH (10:00)
[2022-05-13] MEDS: MUPIROCIN 2% TOPICAL OINTMENT 22 GM TUBE TP SCH (10:20)
[2022-05-13] MEDS: NYSTATIN 100,000 UNIT/GM TOPICAL CREAM 15 GM TUBE TP SCH ×2 (10:24→21:42)
[2022-05-13 11:24] LABS: BASO % 0.6 % (0-2.0); EOS % 6.1 % (0-4.5); HEMATOCRIT 33.8 % (32.4-45.2); HEMOGLOBIN 10.6 GM/dL (10.7-15.3); LYMPH % 22.3 % (8-40); MCH 25.4 pg (25.7-33.7); MCHC 31.5 g/dl (32.0-36.0); MEAN CELL VOLUME 80.7 fl (80-96); MEAN PLT VOLUME 9.9 fl (7.5-11.1); PLATELET COUNT 207 10^3/uL (134-434); RBC 4.19 M/mm3 (3.60-5.2); RDW 16.7 % (11.6-15.6)
[2022-05-13 11:47] LABS: CALCIUM 8.6 mg/dL (8.5-10.1)
[2022-05-13 11:48] LABS: ALBUMIN 2.4 g/dl (3.4-5.0); BLOOD UREA NITROGEN 26.1 mg/dL (7-18)
[2022-05-13 11:51] LABS: CREATININE 1.1 mg/dL (0.55-1.3)
[2022-05-13 12:08] LABS: BILIRUBIN,TOTAL 0.2 mg/dL (0.2-1); TOT PROT 6.3 g/dl (6.4-8.2)
[2022-05-13] MEDS: DOCUSATE SODIUM 100 MG CAPSULE (FP) PO PRN (13:25)
[2022-05-13] MEDS: LACTATED RINGERS SOLUTION 1,000 ML IV SCH (17:49)
[2022-05-13] MEDS: RIVAROXABAN 20 MG TABLET PO SCH (17:49)
[2022-05-13] MEDS: ROSUVASTATIN CA 10 MG TABLET PO SCH (21:26)
[2022-05-14] MEDS: morphine SULFATE 4 MG/ML VIAL IVPUSH PRN (05:23)
[2022-05-14] MEDS: PREGABALIN 75 MG CAPSULE PO SCH ×3 (05:23→21:25)
[2022-05-14] MEDS: INSULIN (LEVEMIR) 100 UNITS/ML UNITS SQ SCH (06:41)
[2022-05-14] MEDS: INSULIN SLIDING SCALE (NOVOLOG) 1 VIAL SQ SCH ×4 (06:42→21:27)
[2022-05-14] MEDS: LORazepam 1 MG TABLET PO SCH ×2 (09:12→21:26)
[2022-05-14] MEDS: ASPIRIN 81 MG CHEWABLE TABLETS PO SCH (09:12)
[2022-05-14] MEDS: metoPROLOL SUCCINATE 25 MG TAB.SR.24H (FP) PO SCH (09:12)
[2022-05-14] MEDS: MULTIVITAMINS THER W-MINERALS COMBO TABLET (FP) PO SCH (09:13)
[2022-05-14] MEDS: ASCORBIC ACID 250 MG TABLET (FP) PO SCH ×2 (09:13→21:25)
[2022-05-14] MEDS: MUPIROCIN 2% TOPICAL OINTMENT 22 GM TUBE TP SCH (09:22)
[2022-05-14] MEDS: NYSTATIN 100,000 UNIT/GM TOPICAL CREAM 15 GM TUBE TP SCH ×2 (09:22→21:26)
[2022-05-14 10:52] VITALS: RESP 18
[2022-05-14] MEDS: oxyCODONE HCL 5 MG TABLET PO PRN ×2 (13:53→20:19)
[2022-05-14 16:30] LABS: BASO % 0.5 % (0-2.0); EOS % 6.1 % (0-4.5); HEMATOCRIT 33.2 % (32.4-45.2); HEMOGLOBIN 10.3 GM/dL (10.7-15.3); LYMPH % 18.8 % (8-40); MCH 25.4 pg (25.7-33.7); MCHC 31.1 g/dl (32.0-36.0); MEAN CELL VOLUME 81.8 fl (80-96); MEAN PLT VOLUME 9.8 fl (7.5-11.1); MONO % 5.9 % (3.8-10.2); NEUT % 68.7 % (42.8-82.8); PLATELET COUNT 225 10^3/uL (134-434); RBC 4.07 M/mm3 (3.60-5.2); RDW 16.4 % (11.6-15.6); WHITE BLOOD COUNT 9.1 K/mm3 (4.0-10.0)
[2022-05-14 16:51] LABS: CALCIUM 8.1 mg/dL (8.5-10.1)
[2022-05-14 16:52] LABS: ALBUMIN 2.4 g/dl (3.4-5.0); BLOOD UREA NITROGEN 22.6 mg/dL (7-18)
[2022-05-14 16:56] LABS: TOT PROT 6.4 g/dl (6.4-8.2)
[2022-05-14 16:57] LABS: BILIRUBIN,TOTAL 0.2 mg/dL (0.2-1)
[2022-05-14] MEDS: RIVAROXABAN 20 MG TABLET PO SCH (17:11)
[2022-05-14] MEDS: ROSUVASTATIN CA 10 MG TABLET PO SCH (21:26)
[2022-05-15] MEDS: oxyCODONE HCL 5 MG TABLET PO PRN ×3 (02:18→14:51)
[2022-05-15] MEDS: PREGABALIN 75 MG CAPSULE PO SCH ×2 (06:22→14:09)
[2022-05-15] MEDS: INSULIN (LEVEMIR) 100 UNITS/ML UNITS SQ SCH (06:27)
[2022-05-15] MEDS: INSULIN SLIDING SCALE (NOVOLOG) 1 VIAL SQ SCH ×2 (06:27→11:44)
[2022-05-15] MEDS: MULTIVITAMINS THER W-MINERALS COMBO TABLET (FP) PO SCH (09:53)
[2022-05-15] MEDS: metoPROLOL SUCCINATE 25 MG TAB.SR.24H (FP) PO SCH (09:54)
[2022-05-15] MEDS: LORazepam 1 MG TABLET PO SCH (09:54)
[2022-05-15] MEDS: ASPIRIN 81 MG CHEWABLE TABLETS PO SCH (09:54)
[2022-05-15] MEDS: ASCORBIC ACID 250 MG TABLET (FP) PO SCH (09:54)
[2022-05-15] MEDS: MUPIROCIN 2% TOPICAL OINTMENT 22 GM TUBE TP SCH (10:09)
[2022-05-15] MEDS: NYSTATIN 100,000 UNIT/GM TOPICAL CREAM 15 GM TUBE TP SCH (10:09)
[2022-05-15] MEDS: DOCUSATE SODIUM 100 MG CAPSULE (FP) PO PRN (10:10)
[2022-05-15 13:48] VITALS: BP 118/73; PULSE 78; TEMP 98.9
== END 2022-05-15 18:42 | disposition home or self-care (01) | DRG 181 ==
LOC: JER 12:29 → JERBED 14:49 → J4S 21:17
PROVIDERS: ADMIT Family Medicine; ATTEND Family Medicine
PROC: 047M3ZZ Dilation of Right Popliteal Artery, Percutaneous Approach (ICD-10-PCS; 2022-05-12)
PROC: 047K3ZZ Dilation of Right Femoral Artery, Percutaneous Approach (ICD-10-PCS; principal; 2022-05-12 14:00)
DX: E11.51 Type 2 diabetes mellitus with diabetic peripheral angiopathy without gangrene (principal); I73.9 Peripheral vascular disease, unspecified; E11.21 Type 2 diabetes mellitus with diabetic nephropathy; I13.10 Hypertensive heart and chronic kidney disease without heart failure, with stage 1 through stage 4 chronic kidney disease, or unspecified chronic kidney disease; I69.959 Hemiplegia and hemiparesis following unspecified cerebrovascular disease affecting unspecified side; E11.9 Type 2 diabetes mellitus without complications; E78.5 Hyperlipidemia, unspecified; I25.10 Atherosclerotic heart disease of native coronary artery without angina pectoris; I48.91 Unspecified atrial fibrillation; J44.9 Chronic obstructive pulmonary disease, unspecified; J45.909 Unspecified asthma, uncomplicated; K21.9 Gastro-esophageal reflux disease without esophagitis; N18.9 Chronic kidney disease, unspecified; R07.9 Chest pain, unspecified
CPT/HCPCS: 36415; 75635-TC; 80053; 82962; 83036; 83605; 84484; 84702; 85025; 85610; 85730; 86140; 86850; 86900; 86901; 93005; 93010; 93306-TC; 94640; 94760; 97116-GP; 97161-GP; 99285-25; C1725; C1887; C9803-CS; J1644; Q9967; U0003; U0005

== ENCOUNTER 2022-05-29 16:03 | Inpatient (IN) | payer OTHER ==
[2022-05-29] MEDS ORDERED: ACETAMINOPHEN 1000 MG/100 ML BAG IVPB ONE (17:44)
[2022-05-29] MEDS ORDERED: VANCOMYCIN IVPB ONE (18:04)
[2022-05-29] MEDS ORDERED: DEXTROSE 5% IVPB ONE (18:04)
[2022-05-29] MEDS ORDERED: WATER IVPB ONE (18:04)
[2022-05-29 18:19] LABS: BASO % 0.9 % (0-2.0); EOS % 7.8 % (0-4.5); HEMOGLOBIN 10.5 GM/dL (10.7-15.3); LYMPH % 27.7 % (8-40); MCHC 31.9 g/dl (32.0-36.0); MEAN CELL VOLUME 81.7 fl (80-96); MEAN PLT VOLUME 9.3 fl (7.5-11.1); MONO % 4.5 % (3.8-10.2); NEUT % 59.1 % (42.8-82.8); PLATELET COUNT 422 10^3/uL (134-434); RBC 4.04 M/mm3 (3.60-5.2)
[2022-05-29] MEDS ORDERED: VANCOMYCIN 1,000 MG in DEXTROSE 5%-WATER - 250 ML IVPB ONE (18:33)
[2022-05-29] MEDS ORDERED: VANCOMYCIN 1,500 MG in DEXTROSE 5%-WATER - 250 ML IVPB ONE (18:34)
[2022-05-29] MEDS ORDERED: ACETAMINOPHEN INJECTION 100 ML IVPB ONE (18:43)
[2022-05-29] MEDS ORDERED: PIPERACILLIN/TAZOB 4.5 GM 4.5 GM/100 ML BAG IVPB ONE (18:43)
[2022-05-29 18:44] LABS: CALCIUM 8.6 mg/dL (8.5-10.1)
[2022-05-29 18:45] LABS: ALBUMIN 2.6 g/dl (3.4-5.0); BLOOD UREA NITROGEN 10.1 mg/dL (7-18)
[2022-05-29] MEDS ORDERED: VANCOMYCIN PREMIX 1.5 GM 1,500 MG/300 ML BAG IVPB ONE (18:45)
[2022-05-29 18:48] LABS: CREATININE 1.1 mg/dL (0.55-1.3)
[2022-05-29] MEDS: PIPERACILLIN/TAZOB 4.5 GM 4.5 GM in DEXTROSE 5%-WATER 100 ML IVPB SCH (18:48)
[2022-05-29 18:49] LABS: TOT PROT 7.5 g/dl (6.4-8.2)
[2022-05-29 18:50] LABS: BILIRUBIN,TOTAL 0.3 mg/dL (0.2-1)
[2022-05-30] MEDS ORDERED: VANCOMYCIN 1,000 MG in DEXTROSE 5%-WATER - 250 ML IVPB SCH (00:01)
[2022-05-30] MEDS ORDERED: VANCOMYCIN 2,000 MG in DEXTROSE 5%-WATER - 250 ML IVPB SCH (00:01)
[2022-05-30 00:08] LABS: PH,URINE 6.5 (5.0-8.0); URINE APPEARANCE CLEAR; URINE BILIRUBIN NEGATIVE (NEGATIVE); URINE COLOR YELLOW; URINE GLUCOSE (UA) NEGATIVE (NEGATIVE); URINE KETONE NEGATIVE (NEGATIVE); URINE LEUK ESTERASE NEGATIVE (NEGATIVE); URINE NITRITE NEGATIVE (NEGATIVE); URINE PROTEIN NEGATIVE (NEGATIVE); URINE UROBILINOGEN 0.2 mg/dL (0.2-1.0)
[2022-05-30] MEDS ORDERED: SODIUM CHLORIDE NASAL SPRAY 44 ML BOTTLE NS PRN (05:27)
[2022-05-30] MEDS ORDERED: BUDESONIDE 0.25 MG/2ML INH SUSP VIAL NEB PRN (05:27)
[2022-05-30] MEDS ORDERED: SENNOSIDES 8.6MG TABLET (FP) PO PRN (05:27)
[2022-05-30] MEDS ORDERED: ALBUTEROL SO4 0.083% IH SOL 2.5 MG/3 ML VIAL.NEB. NEB PRN (05:31)
[2022-05-30] MEDS: PIPERACILLIN/TAZOB 4.5 GM 4.5 GM in DEXTROSE 5%-WATER 100 ML IVPB SCH ×3 (05:33→15:32)
[2022-05-30] MEDS ORDERED: PIPERACILLIN/TAZOB 4.5 GM 4.5 GM/100 ML BAG IVPB ONE ×3 (05:34→15:37)
[2022-05-30] MEDS ORDERED: PREGABALIN 75 MG CAPSULE PO SCH (06:00)
[2022-05-30] MEDS ORDERED: PREGABALIN 50 MG CAPSULE ONE ×3 (06:50→22:34)
[2022-05-30] MEDS ORDERED: PREGABALIN 100 MG CAPSULE ONE ×3 (06:50→22:34)
[2022-05-30] MEDS: PREGABALIN 100 MG, PREGABALIN 50 MG PO SCH ×3 (06:52→22:36)
[2022-05-30] MEDS ORDERED: VANCOMYCIN/WATER FOR INJ (PEG) 1,000 MG/200 ML BAG IVPB SCH (07:00)
[2022-05-30 07:07] LABS: BASO % 0.9 % (0-2.0); EOS % 11.9 % (0-4.5); HEMATOCRIT 29.5 % (32.4-45.2); HEMOGLOBIN 9.2 GM/dL (10.7-15.3); LYMPH % 30.8 % (8-40); MCH 25.3 pg (25.7-33.7); MCHC 31.1 g/dl (32.0-36.0); MEAN CELL VOLUME 81.3 fl (80-96); MEAN PLT VOLUME 10.1 fl (7.5-11.1); MONO % 5.7 % (3.8-10.2); NEUT % 50.7 % (42.8-82.8); PLATELET COUNT 325 10^3/uL (134-434); RBC 3.62 M/mm3 (3.60-5.2); RDW 16.3 % (11.6-15.6); WHITE BLOOD COUNT 6.9 K/mm3 (4.0-10.0)
[2022-05-30 07:32] LABS: ALBUMIN 2.2 g/dl (3.4-5.0); CALCIUM 8.3 mg/dL (8.5-10.1)
[2022-05-30 07:35] LABS: CREATININE 1.3 mg/dL (0.55-1.3)
[2022-05-30 07:37] LABS: BILIRUBIN,TOTAL 0.3 mg/dL (0.2-1); TOT PROT 6.3 g/dl (6.4-8.2)
[2022-05-30] MEDS ORDERED: metoPROLOL SUCCINATE 25 MG TAB.SR.24H (FP) PO ONE (08:02)
[2022-05-30] MEDS ORDERED: ASPIRIN 81 MG CHEWABLE TABLETS ONE (08:02)
[2022-05-30] MEDS ORDERED: VANCOMYCIN/WATER FOR INJ (PEG) 1,000 MG/200 ML BAG IVPB ONE (08:03)
[2022-05-30] MEDS: INSULIN SLIDING SCALE (NOVOLOG) 1 VIAL SQ SCH ×4 (08:47→22:49)
[2022-05-30] MEDS ORDERED: traMADol HCL 50 MG TABLET ONE ×2 (08:53→17:45)
[2022-05-30] MEDS ORDERED: LORazepam 1 MG TABLET ONE (08:54)
[2022-05-30] MEDS: ASPIRIN 81 MG CHEWABLE TABLETS PO SCH (09:25)
[2022-05-30] MEDS: traMADol HCL 50 MG TABLET PO PRN ×2 (09:25→17:47)
[2022-05-30] MEDS: metoPROLOL SUCCINATE 25 MG TAB.SR.24H (FP) PO SCH (09:25)
[2022-05-30] MEDS: LORazepam 1 MG TABLET PO PRN (09:25)
[2022-05-30] MEDS ORDERED: ACETAMINOPHEN 325 MG TABLET (FP) ONE (16:27)
[2022-05-30] MEDS: ACETAMINOPHEN 325 MG TABLET (FP) PO PRN (16:50)
[2022-05-30] MEDS: RIVAROXABAN 20 MG TABLET PO SCH (21:00)
[2022-05-30] MEDS ORDERED: ROSUVASTATIN CA 20 MG TABLET ONE (22:33)
[2022-05-30] MEDS: ROSUVASTATIN CA 10 MG TABLET PO SCH (22:36)
[2022-05-30] MEDS ORDERED: INSULIN (NOVOLOG) ASPART 100 UNITS/ML 10ML VIAL ONE (22:37)
[2022-05-30] MEDS ORDERED: PIPERACILLIN/TAZOB 3.375 GM 3.375 GM/50 ML BAG IVPB ONE (22:50)
[2022-05-30] MEDS: PIPERACILLIN/TAZOB 3.375 GM 3.375 GM in DEXTROSE 5%-WATER - 50 ML IVPB SCH (22:54)
[2022-05-31] MEDS ORDERED: SODIUM CHLORIDE 500 ML IV STA (03:58)
[2022-05-31] MEDS ORDERED: PREGABALIN 50 MG CAPSULE ONE ×2 (05:57→16:33)
[2022-05-31] MEDS: PREGABALIN 100 MG, PREGABALIN 50 MG PO SCH ×2 (06:05→16:29)
[2022-05-31] MEDS ORDERED: PIPERACILLIN/TAZOB 3.375 GM 3.375 GM/50 ML BAG IVPB ONE ×2 (07:54→13:58)
[2022-05-31] MEDS: PIPERACILLIN/TAZOB 3.375 GM 3.375 GM in DEXTROSE 5%-WATER - 50 ML IVPB SCH ×2 (08:10→14:05)
[2022-05-31] MEDS: INSULIN SLIDING SCALE (NOVOLOG) 1 VIAL SQ SCH ×3 (08:25→17:55)
[2022-05-31] MEDS ORDERED: VANCOMYCIN/WATER FOR INJ (PEG) 1,000 MG/200 ML BAG IVPB ONE (09:38)
[2022-05-31] MEDS: VANCOMYCIN/WATER FOR INJ (PEG) 1,000 MG/200 ML BAG IVPB SCH (09:52)
[2022-05-31] MEDS ORDERED: metoPROLOL SUCCINATE 25 MG TAB.SR.24H (FP) PO ONE (10:18)
[2022-05-31] MEDS ORDERED: ASPIRIN 81 MG CHEWABLE TABLETS ONE (10:19)
[2022-05-31] MEDS: metoPROLOL SUCCINATE 25 MG TAB.SR.24H (FP) PO SCH (10:26)
[2022-05-31] MEDS: ASPIRIN 81 MG CHEWABLE TABLETS PO SCH (10:26)
[2022-05-31] MEDS ORDERED: traMADol HCL 50 MG TABLET ONE (10:36)
[2022-05-31] MEDS ORDERED: traMADol HCL 50 MG TABLET PO PRN (11:04)
[2022-05-31] MEDS ORDERED: oxyCODONE HCL 5 MG TABLET ONE ×2 (11:08→20:37)
[2022-05-31] MEDS: oxyCODONE HCL 5 MG TABLET PO PRN (11:14)
[2022-05-31] MEDS ORDERED: LORazepam 1 MG TABLET ONE (11:18)
[2022-05-31] MEDS: LORazepam 1 MG TABLET PO PRN (11:20)
[2022-05-31] MEDS ORDERED: ACETAMINOPHEN 325 MG TABLET (FP) ONE (14:15)
[2022-05-31] MEDS: ACETAMINOPHEN 325 MG TABLET (FP) PO PRN (14:21)
[2022-05-31] MEDS ORDERED: PREGABALIN 100 MG CAPSULE ONE (16:33)
[2022-05-31] MEDS: RIVAROXABAN 20 MG TABLET PO SCH (19:12)
[2022-06-01] MEDS ORDERED: PREGABALIN 100 MG CAPSULE ONE ×3 (00:15→14:50)
[2022-06-01] MEDS ORDERED: PREGABALIN 50 MG CAPSULE ONE ×3 (00:15→14:50)
[2022-06-01] MEDS ORDERED: PIPERACILLIN/TAZOB 3.375 GM 3.375 GM/50 ML BAG IVPB ONE ×3 (00:16→14:51)
[2022-06-01] MEDS ORDERED: ROSUVASTATIN CA 20 MG TABLET ONE (00:16)
[2022-06-01] MEDS: ROSUVASTATIN CA 10 MG TABLET PO SCH (00:26)
[2022-06-01] MEDS: PREGABALIN 100 MG, PREGABALIN 50 MG PO SCH ×3 (00:26→14:59)
[2022-06-01] MEDS: INSULIN SLIDING SCALE (NOVOLOG) 1 VIAL SQ SCH ×4 (00:28→17:10)
[2022-06-01] MEDS: PIPERACILLIN/TAZOB 3.375 GM 3.375 GM in DEXTROSE 5%-WATER - 50 ML IVPB SCH ×3 (00:28→14:59)
[2022-06-01 07:14] LABS: BASO % 0.7 % (0-2.0); EOS % 8.2 % (0-4.5); HEMATOCRIT 29.9 % (32.4-45.2); HEMOGLOBIN 9.6 GM/dL (10.7-15.3); LYMPH % 28.9 % (8-40); MCH 25.6 pg (25.7-33.7); MCHC 31.9 g/dl (32.0-36.0); MEAN CELL VOLUME 80.2 fl (80-96); MEAN PLT VOLUME 9.3 fl (7.5-11.1); MONO % 5.7 % (3.8-10.2); NEUT % 56.5 % (42.8-82.8); PLATELET COUNT 365 10^3/uL (134-434); RBC 3.73 M/mm3 (3.60-5.2); RDW 16.4 % (11.6-15.6); WHITE BLOOD COUNT 8.9 K/mm3 (4.0-10.0)
[2022-06-01 07:41] LABS: CALCIUM 8.5 mg/dL (8.5-10.1)
[2022-06-01 07:42] LABS: ALBUMIN 2.3 g/dl (3.4-5.0); BLOOD UREA NITROGEN 21.2 mg/dL (7-18)
[2022-06-01 07:45] LABS: CREATININE 1.3 mg/dL (0.55-1.3)
[2022-06-01 07:46] LABS: BILIRUBIN,TOTAL 0.2 mg/dL (0.2-1); TOT PROT 6.8 g/dl (6.4-8.2)
[2022-06-01] MEDS ORDERED: oxyCODONE HCL 5 MG TABLET ONE (08:39)
[2022-06-01] MEDS: oxyCODONE HCL 5 MG TABLET PO PRN ×2 (08:46→20:58)
[2022-06-01] MEDS ORDERED: metoPROLOL SUCCINATE 25 MG TAB.SR.24H (FP) PO ONE (10:42)
[2022-06-01] MEDS ORDERED: VANCOMYCIN/WATER FOR INJ (PEG) 1,000 MG/200 ML BAG IVPB ONE ×3 (10:43→12:29)
[2022-06-01] MEDS ORDERED: ASPIRIN 81 MG CHEWABLE TABLETS ONE (10:43)
[2022-06-01] MEDS: metoPROLOL SUCCINATE 25 MG TAB.SR.24H (FP) PO SCH (11:00)
[2022-06-01] MEDS: ASPIRIN 81 MG CHEWABLE TABLETS PO SCH (11:21)
[2022-06-01] MEDS ORDERED: LORazepam 1 MG TABLET ONE (11:33)
[2022-06-01] MEDS: LORazepam 1 MG TABLET PO PRN ×2 (12:00→20:57)
[2022-06-01] MEDS: VANCOMYCIN/WATER FOR INJ (PEG) 1,000 MG/200 ML BAG IVPB SCH (12:14)
[2022-06-01] MEDS: DOCUSATE SODIUM 100 MG CAPSULE (FP) PO PRN (14:59)
[2022-06-01] MEDS ORDERED: DOCUSATE SODIUM 100 MG CAPSULE (FP) PO ONE (15:00)
[2022-06-01] MEDS: COLLAGENASE CLOSTRIDIUM HIST. 30 GRAMS TUBE TP SCH (17:10)
[2022-06-01] MEDS: VANCOMYCIN 1,000 MG in DEXTROSE 5%-WATER - 250 ML IVPB SCH (22:27)
[2022-06-01] MEDS: PIPERACILLIN/TAZOB 4.5 GM 4.5 GM in DEXTROSE 5%-WATER 100 ML IVPB SCH ×2 (22:27→22:31)
[2022-06-02] MEDS: ROSUVASTATIN CA 10 MG TABLET PO SCH ×2 (00:26→21:19)
[2022-06-02] MEDS: PREGABALIN 100 MG, PREGABALIN 50 MG PO SCH ×4 (00:26→21:19)
[2022-06-02] MEDS: PIPERACILLIN/TAZOB 3.375 GM 3.375 GM in DEXTROSE 5%-WATER - 50 ML IVPB SCH ×4 (00:27→22:41)
[2022-06-02] MEDS: INSULIN SLIDING SCALE (NOVOLOG) 1 VIAL SQ SCH ×5 (00:27→21:19)
[2022-06-02 08:11] VITALS: BMI 24.0
[2022-06-02] MEDS: VANCOMYCIN/WATER FOR INJ (PEG) 1,000 MG/200 ML BAG IVPB SCH (08:22)
[2022-06-02] MEDS: metoPROLOL SUCCINATE 25 MG TAB.SR.24H (FP) PO SCH (09:17)
[2022-06-02] MEDS: ASPIRIN 81 MG CHEWABLE TABLETS PO SCH (09:17)
[2022-06-02] MEDS: oxyCODONE HCL 5 MG TABLET PO PRN ×2 (12:31→19:48)
[2022-06-02] MEDS: COLLAGENASE CLOSTRIDIUM HIST. 30 GRAMS TUBE TP SCH (15:20)
[2022-06-02] MEDS: AMINO ACIDS/PROTEIN HYDROLYS 30 ML LIQUID.PKT PO SCH (17:03)
[2022-06-02] MEDS: LORazepam 1 MG TABLET PO PRN (17:16)
[2022-06-03] MEDS: PREGABALIN 100 MG, PREGABALIN 50 MG PO SCH ×3 (06:11→21:41)
[2022-06-03] MEDS: PIPERACILLIN/TAZOB 3.375 GM 3.375 GM in DEXTROSE 5%-WATER - 50 ML IVPB SCH ×3 (06:11→23:17)
[2022-06-03] MEDS: INSULIN SLIDING SCALE (NOVOLOG) 1 VIAL SQ SCH ×4 (06:47→21:48)
[2022-06-03] MEDS: oxyCODONE HCL 5 MG TABLET PO PRN ×3 (09:17→21:41)
[2022-06-03] MEDS: ASPIRIN 81 MG CHEWABLE TABLETS PO SCH (09:17)
[2022-06-03] MEDS: ACETAMINOPHEN 325 MG TABLET (FP) PO PRN ×2 (09:18→16:04)
[2022-06-03] MEDS: ASCORBIC ACID 500 MG TABLET (FP) PO SCH (09:18)
[2022-06-03] MEDS: metoPROLOL SUCCINATE 25 MG TAB.SR.24H (FP) PO SCH (09:19)
[2022-06-03] MEDS: VANCOMYCIN/WATER FOR INJ (PEG) 1,000 MG/200 ML BAG IVPB SCH (09:19)
[2022-06-03] MEDS: AMINO ACIDS/PROTEIN HYDROLYS 30 ML LIQUID.PKT PO SCH ×3 (09:19→17:55)
[2022-06-03] MEDS: COLLAGENASE CLOSTRIDIUM HIST. 30 GRAMS TUBE TP SCH (09:34)
[2022-06-03] MEDS ORDERED: INSULIN (NOVOLOG) ASPART 100 UNITS/ML 10ML VIAL ONE (11:56)
[2022-06-03] MEDS: LORazepam 1 MG TABLET PO PRN (11:58)
[2022-06-03] MEDS: DOCUSATE SODIUM 100 MG CAPSULE (FP) PO PRN (13:25)
[2022-06-03] MEDS: RIVAROXABAN 20 MG TABLET PO SCH (17:55)
[2022-06-03] MEDS: ROSUVASTATIN CA 10 MG TABLET PO SCH (21:41)
[2022-06-04] MEDS: LORazepam 1 MG TABLET PO PRN ×2 (01:26→21:26)
[2022-06-04] MEDS: oxyCODONE HCL 5 MG TABLET PO PRN ×3 (05:19→21:26)
[2022-06-04] MEDS: PREGABALIN 100 MG, PREGABALIN 50 MG PO SCH ×3 (05:19→21:25)
[2022-06-04] MEDS: INSULIN SLIDING SCALE (NOVOLOG) 1 VIAL SQ SCH ×4 (06:35→21:25)
[2022-06-04] MEDS: PIPERACILLIN/TAZOB 3.375 GM 3.375 GM in DEXTROSE 5%-WATER - 50 ML IVPB SCH ×3 (06:36→22:34)
[2022-06-04] MEDS: metoPROLOL SUCCINATE 25 MG TAB.SR.24H (FP) PO SCH (10:16)
[2022-06-04] MEDS: ASPIRIN 81 MG CHEWABLE TABLETS PO SCH (10:16)
[2022-06-04] MEDS: ASCORBIC ACID 500 MG TABLET (FP) PO SCH (10:16)
[2022-06-04] MEDS: VANCOMYCIN/WATER FOR INJ (PEG) 1,000 MG/200 ML BAG IVPB SCH (10:16)
[2022-06-04] MEDS: AMINO ACIDS/PROTEIN HYDROLYS 30 ML LIQUID.PKT PO SCH ×3 (10:16→17:03)
[2022-06-04] MEDS: COLLAGENASE CLOSTRIDIUM HIST. 30 GRAMS TUBE TP SCH (10:17)
[2022-06-04] MEDS: ACETAMINOPHEN 325 MG TABLET (FP) PO PRN (13:31)
[2022-06-04] MEDS: DOCUSATE SODIUM 100 MG CAPSULE (FP) PO PRN (13:32)
[2022-06-04] MEDS: RIVAROXABAN 20 MG TABLET PO SCH (17:03)
[2022-06-04] MEDS: ROSUVASTATIN CA 10 MG TABLET PO SCH (21:25)
[2022-06-05] MEDS: PREGABALIN 100 MG, PREGABALIN 50 MG PO SCH ×3 (05:45→22:43)
[2022-06-05] MEDS ORDERED: INSULIN (NOVOLOG) ASPART 100 UNITS/ML 10ML VIAL ONE (05:54)
[2022-06-05] MEDS: PIPERACILLIN/TAZOB 3.375 GM 3.375 GM in DEXTROSE 5%-WATER - 50 ML IVPB SCH (06:10)
[2022-06-05] MEDS: INSULIN SLIDING SCALE (NOVOLOG) 1 VIAL SQ SCH ×4 (06:10→22:47)
[2022-06-05 08:30] LABS: BASO % 0.8 % (0-2.0); EOS % 10.6 % (0-4.5); HEMATOCRIT 31.6 % (32.4-45.2); HEMOGLOBIN 9.5 GM/dL (10.7-15.3); LYMPH % 24.7 % (8-40); MCH 24.3 pg (25.7-33.7); MCHC 30.2 g/dl (32.0-36.0); MEAN CELL VOLUME 80.4 fl (80-96); MEAN PLT VOLUME 10.2 fl (7.5-11.1); MONO % 6.7 % (3.8-10.2); NEUT % 57.2 % (42.8-82.8); PLATELET COUNT 363 10^3/uL (134-434); RBC 3.93 M/mm3 (3.60-5.2); RDW 16.6 % (11.6-15.6); WHITE BLOOD COUNT 11.9 K/mm3 (4.0-10.0)
[2022-06-05 08:52] LABS: CALCIUM 8.7 mg/dL (8.5-10.1)
[2022-06-05 08:53] LABS: ALBUMIN 2.6 g/dl (3.4-5.0)
[2022-06-05 08:55] LABS: CREATININE 1.4 mg/dL (0.55-1.3)
[2022-06-05 08:57] LABS: BILIRUBIN,TOTAL 0.3 mg/dL (0.2-1); TOT PROT 7.2 g/dl (6.4-8.2)
[2022-06-05 08:59] LABS: BLOOD UREA NITROGEN 46.4 mg/dL (7-18)
[2022-06-05] MEDS: AMINO ACIDS/PROTEIN HYDROLYS 30 ML LIQUID.PKT PO SCH ×3 (09:21→17:15)
[2022-06-05] MEDS: ASCORBIC ACID 500 MG TABLET (FP) PO SCH (09:22)
[2022-06-05] MEDS: metoPROLOL SUCCINATE 25 MG TAB.SR.24H (FP) PO SCH (09:22)
[2022-06-05] MEDS: ASPIRIN 81 MG CHEWABLE TABLETS PO SCH (09:22)
[2022-06-05] MEDS: LORazepam 1 MG TABLET PO PRN ×2 (09:36→22:43)
[2022-06-05] MEDS: VANCOMYCIN/WATER FOR INJ (PEG) 1,000 MG/200 ML BAG IVPB SCH (11:53)
[2022-06-05] MEDS: COLLAGENASE CLOSTRIDIUM HIST. 30 GRAMS TUBE TP SCH (16:04)
[2022-06-05] MEDS: RIVAROXABAN 20 MG TABLET PO SCH (17:15)
[2022-06-05] MEDS: oxyCODONE HCL 5 MG TABLET PO PRN ×2 (17:15→22:44)
[2022-06-05] MEDS: ROSUVASTATIN CA 10 MG TABLET PO SCH (22:44)
[2022-06-06 03:02] VITALS: RESP 20
[2022-06-06] MEDS: oxyCODONE HCL 5 MG TABLET PO PRN (06:38)
[2022-06-06] MEDS: PREGABALIN 100 MG, PREGABALIN 50 MG PO SCH (06:38)
[2022-06-06] MEDS: INSULIN SLIDING SCALE (NOVOLOG) 1 VIAL SQ SCH ×2 (06:45→11:52)
[2022-06-06] MEDS: ASPIRIN 81 MG CHEWABLE TABLETS PO SCH (09:36)
[2022-06-06] MEDS: AMINO ACIDS/PROTEIN HYDROLYS 30 ML LIQUID.PKT PO SCH ×2 (09:36→11:49)
[2022-06-06] MEDS: ASCORBIC ACID 500 MG TABLET (FP) PO SCH (09:36)
[2022-06-06] MEDS: metoPROLOL SUCCINATE 25 MG TAB.SR.24H (FP) PO SCH (09:36)
[2022-06-06] MEDS: LORazepam 1 MG TABLET PO PRN (11:46)
[2022-06-06] MEDS: COLLAGENASE CLOSTRIDIUM HIST. 30 GRAMS TUBE TP SCH (11:50)
[2022-06-06 13:17] VITALS: BP 127/78; PULSE 76; TEMP 99
== END 2022-06-06 13:46 | disposition home or self-care (01) | DRG 380 ==
LOC: JER 16:03 → JERBED 18:41 → J8W 06-01 20:18
PROVIDERS: ADMIT Family Medicine; ATTEND Family Medicine
DX: L89.154 Pressure ulcer of sacral region, stage 4 (principal); E11.21 Type 2 diabetes mellitus with diabetic nephropathy; L89.220 Pressure ulcer of left hip, unstageable; I69.351 Hemiplegia and hemiparesis following cerebral infarction affecting right dominant side; I48.91 Unspecified atrial fibrillation; E78.5 Hyperlipidemia, unspecified; H53.9 Unspecified visual disturbance; I12.9 Hypertensive chronic kidney disease with stage 1 through stage 4 chronic kidney disease, or unspecified chronic kidney disease; I25.10 Atherosclerotic heart disease of native coronary artery without angina pectoris; I73.9 Peripheral vascular disease, unspecified; N18.9 Chronic kidney disease, unspecified; Z95.5 Presence of coronary angioplasty implant and graft; J45.909 Unspecified asthma, uncomplicated
CPT/HCPCS: 36415; 71045-TC-FY; 80053; 81003; 82962; 84703; 85025; 86140; 87040; 87070; 87076; 87086; 87186; 87205; 93005; 93010; 99285-25; C9803-CS; E0186; G0480; U0003; U0005

== ENCOUNTER 2022-06-09 14:09 | Observation (INO) | payer OTHER ==
[2022-06-09] MEDS ORDERED: ACETAMINOPHEN 500 MG TABLET (FP) PO ONE (16:39)
[2022-06-09] MEDS ORDERED: ACETAMINOPHEN 325 MG TABLET (FP) ONE ×2 (17:25→23:24)
[2022-06-09 17:27] LABS: BASO % 0.8 % (0-2.0); EOS % 2.9 % (0-4.5); HEMATOCRIT 34.2 % (32.4-45.2); HEMOGLOBIN 10.7 GM/dL (10.7-15.3); LYMPH % 18.2 % (8-40); MCH 24.9 pg (25.7-33.7); MCHC 31.4 g/dl (32.0-36.0); MEAN CELL VOLUME 79.3 fl (80-96); MEAN PLT VOLUME 9.7 fl (7.5-11.1); MONO % 4.7 % (3.8-10.2); NEUT % 73.4 % (42.8-82.8); PLATELET COUNT 350 10^3/uL (134-434); RBC 4.31 M/mm3 (3.60-5.2); RDW 16.8 % (11.6-15.6); WHITE BLOOD COUNT 12.4 K/mm3 (4.0-10.0)
[2022-06-09] MEDS ORDERED: morphine CARPU-JECT 2 MG/1 ML DISP.SYRIN IVPUSH ONE (17:27)
[2022-06-09] MEDS ORDERED: LIDOCAINE 5% TOPICAL PATCH TP ONE (17:28)
[2022-06-09 17:33] LABS: INR 1.4 (0.83-1.09); PROTHROMBIN TIME (PATIENT) 16.2 SEC (9.7-13.0)
[2022-06-09] MEDS ORDERED: LIDOCAINE 5% TOPICAL PATCH ONE (17:35)
[2022-06-09] MEDS ORDERED: morphine SULFATE 4 MG/ML VIAL ONE (17:35)
[2022-06-09 17:36] LABS: ACTIVATED PTT 36.8 SECONDS (25.2-36.5)
[2022-06-09 17:46] LABS: BLOOD UREA NITROGEN 35.6 mg/dL (7-18); CALCIUM 9.3 mg/dL (8.5-10.1)
[2022-06-09 17:50] LABS: CREATININE 1.6 mg/dL (0.55-1.3)
[2022-06-09 17:51] LABS: BILIRUBIN,TOTAL 0.2 mg/dL (0.2-1); TOT PROT 8.4 g/dl (6.4-8.2)
[2022-06-09] MEDS: LIDOCAINE PATCH REMOVAL MC SCH (22:34)
[2022-06-09] MEDS ORDERED: ACETAMINOPHEN 325 MG TABLET (FP) PO PRN (23:00)
[2022-06-10 07:33] LABS: CHLORIDE 111 mmol/L (98-107)
[2022-06-10 07:39] LABS: ALBUMIN 2.7 g/dl (3.4-5.0); BLOOD UREA NITROGEN 27.3 mg/dL (7-18); CO2 25 mmol/L (21-32); GLUCOSE,RANDOM 136 mg/dL (74-106); MAGNESIUM 2.3 mg/dL (1.8-2.4)
[2022-06-10 07:42] LABS: CREATININE 1.2 mg/dL (0.55-1.3); SGOT/AST 11 U/L (15-37)
[2022-06-10 07:43] LABS: BILIRUBIN,TOTAL 0.3 mg/dL (0.2-1); SGPT/ALT 13 U/L (13-61); TOT PROT 7.5 g/dl (6.4-8.2)
[2022-06-10 07:44] LABS: ALK PHOS 185 U/L (45-117)
[2022-06-10 07:54] LABS: ANION GAP 9 MMOL/L (8-16); SODIUM 144 mmol/L (136-145)
[2022-06-10 08:01] LABS: BASO % 0.8 % (0-2.0); EOS % 9.7 % (0-4.5); HEMATOCRIT 31.7 % (32.4-45.2); HEMOGLOBIN 9.9 GM/dL (10.7-15.3); LYMPH % 35.5 % (8-40); MCH 24.6 pg (25.7-33.7); MCHC 31.2 g/dl (32.0-36.0); MEAN CELL VOLUME 78.9 fl (80-96); MEAN PLT VOLUME 10.3 fl (7.5-11.1); MONO % 6.6 % (3.8-10.2); NEUT % 47.4 % (42.8-82.8); PLATELET COUNT 345 10^3/uL (134-434); RBC 4.02 M/mm3 (3.60-5.2); RDW 16.2 % (11.6-15.6); WHITE BLOOD COUNT 10.5 K/mm3 (4.0-10.0)
[2022-06-10] MEDS ORDERED: ALBUTEROL SO4 0.083% IH SOL 2.5 MG/3 ML VIAL.NEB. NEB PRN (11:51)
[2022-06-10] MEDS ORDERED: DOCUSATE SODIUM 100 MG CAPSULE (FP) PO PRN (11:51)
[2022-06-10] MEDS: COLLAGENASE CLOSTRIDIUM HIST. 30 GRAMS TUBE TP SCH (12:07)
[2022-06-10] MEDS ORDERED: PREGABALIN 100 MG CAPSULE ONE (12:46)
[2022-06-10] MEDS ORDERED: LORazepam 1 MG TABLET ONE (12:46)
[2022-06-10] MEDS ORDERED: PREGABALIN 50 MG CAPSULE ONE (12:46)
[2022-06-10] MEDS: PREGABALIN 50 MG CAPSULE PO SCH ×2 (13:10→21:53)
[2022-06-10] MEDS: LORazepam 1 MG TABLET PO SCH ×2 (13:10→21:53)
[2022-06-10] MEDS ORDERED: oxyCODONE HCL 5 MG TABLET ONE (14:30)
[2022-06-10] MEDS: oxyCODONE HCL 5 MG TABLET PO PRN ×2 (14:42→22:04)
[2022-06-10] MEDS ORDERED: levoFLOXacin 750 MG TABLET PO SCH (17:00)
[2022-06-10] MEDS: INSULIN SLIDING SCALE (NOVOLOG) 1 VIAL SQ SCH ×2 (17:09→21:58)
[2022-06-10] MEDS: SODIUM CHLORIDE 0.45% 1,000 ML IV SCH (17:31)
[2022-06-10] MEDS: AMINO ACIDS/PROTEIN HYDROLYS 30 ML LIQUID.PKT PO SCH (18:32)
[2022-06-10] MEDS ORDERED: FLUCONAZOLE 150 MG TABLET PO ONE (20:30)
[2022-06-10] MEDS: RIVAROXABAN 20 MG TABLET PO SCH (21:53)
[2022-06-10] MEDS: ROSUVASTATIN CA 10 MG TABLET PO SCH (21:53)
[2022-06-10] MEDS: NYSTATIN 100,000 UNIT/GM TOPICAL CREAM 15 GM TUBE TP SCH (21:54)
[2022-06-10] MEDS: LIDOCAINE PATCH REMOVAL MC SCH (21:54)
[2022-06-10] MEDS: INSULIN (LEVEMIR) 100 UNITS/ML UNITS SQ SCH (21:54)
[2022-06-11] MEDS: oxyCODONE HCL 5 MG TABLET PO PRN ×3 (04:19→20:16)
[2022-06-11] MEDS: LORazepam 1 MG TABLET PO SCH ×3 (06:06→22:01)
[2022-06-11] MEDS: PREGABALIN 50 MG CAPSULE PO SCH ×3 (06:06→22:00)
[2022-06-11] MEDS: INSULIN SLIDING SCALE (NOVOLOG) 1 VIAL SQ SCH ×4 (06:07→22:03)
[2022-06-11] MEDS: SODIUM CHLORIDE 0.45% 1,000 ML IV SCH (06:13)
[2022-06-11 06:32] VITALS: BMI 23.7
[2022-06-11] MEDS: AMINO ACIDS/PROTEIN HYDROLYS 30 ML LIQUID.PKT PO SCH ×2 (08:13→17:00)
[2022-06-11] MEDS: NYSTATIN 100,000 UNIT/GM TOPICAL CREAM 15 GM TUBE TP SCH ×2 (09:24→22:02)
[2022-06-11] MEDS: COLLAGENASE CLOSTRIDIUM HIST. 30 GRAMS TUBE TP SCH (09:24)
[2022-06-11] MEDS ORDERED: ASPIRIN COATED 81 MG TABLET.EC PO SCH (10:00)
[2022-06-11 10:11] LABS: BASO % 0.8 % (0-2.0); HEMATOCRIT 30.4 % (32.4-45.2); HEMOGLOBIN 9.6 GM/dL (10.7-15.3); LYMPH % 26.5 % (8-40); MCHC 31.6 g/dl (32.0-36.0); MEAN CELL VOLUME 79.1 fl (80-96); MONO % 7.4 % (3.8-10.2); NEUT % 56.3 % (42.8-82.8); PLATELET COUNT 284 10^3/uL (134-434); RBC 3.85 M/mm3 (3.60-5.2); RDW 16.1 % (11.6-15.6); WHITE BLOOD COUNT 9.8 K/mm3 (4.0-10.0)
[2022-06-11 10:28] LABS: CALCIUM 8.6 mg/dL (8.5-10.1)
[2022-06-11 10:29] LABS: BLOOD UREA NITROGEN 19.2 mg/dL (7-18)
[2022-06-11] MEDS: RIVAROXABAN 20 MG TABLET PO SCH (17:26)
[2022-06-11] MEDS: INSULIN (LEVEMIR) 100 UNITS/ML UNITS SQ SCH (21:58)
[2022-06-11] MEDS: LIDOCAINE PATCH REMOVAL MC SCH (22:01)
[2022-06-11] MEDS: ROSUVASTATIN CA 10 MG TABLET PO SCH (22:02)
[2022-06-12] MEDS ORDERED: ALBUTEROL SO4 0.083% IH SOL 2.5 MG/3 ML VIAL.NEB. NEB PRN (01:03)
[2022-06-12] MEDS: ACETAMINOPHEN 325 MG TABLET (FP) PO PRN ×2 (03:30→09:13)
[2022-06-12] MEDS: oxyCODONE HCL 5 MG TABLET PO PRN ×3 (05:33→21:16)
[2022-06-12] MEDS: LORazepam 1 MG TABLET PO SCH ×3 (05:34→21:15)
[2022-06-12] MEDS: PREGABALIN 50 MG CAPSULE PO SCH ×3 (05:34→21:15)
[2022-06-12] MEDS: INSULIN SLIDING SCALE (NOVOLOG) 1 VIAL SQ SCH ×5 (06:46→22:11)
[2022-06-12] MEDS ORDERED: INSULIN (NOVOLOG) ASPART 100 UNITS/ML 10ML VIAL ONE (07:18)
[2022-06-12] MEDS: AMINO ACIDS/PROTEIN HYDROLYS 30 ML LIQUID.PKT PO SCH ×2 (09:00→16:50)
[2022-06-12] MEDS: ASPIRIN COATED 81 MG TABLET.EC PO SCH (09:08)
[2022-06-12] MEDS: COLLAGENASE CLOSTRIDIUM HIST. 30 GRAMS TUBE TP SCH (09:09)
[2022-06-12] MEDS: NYSTATIN 100,000 UNIT/GM TOPICAL CREAM 15 GM TUBE TP SCH ×2 (09:09→22:10)
[2022-06-12 10:25] LABS: CALCIUM 8.9 mg/dL (8.5-10.1)
[2022-06-12 10:26] LABS: BLOOD UREA NITROGEN 25.7 mg/dL (7-18)
[2022-06-12 10:29] LABS: CREATININE 1.2 mg/dL (0.55-1.3)
[2022-06-12] MEDS: DOCUSATE SODIUM 100 MG CAPSULE (FP) PO PRN (10:51)
[2022-06-12] MEDS: SODIUM ZIRCONIUM CYCLOSILICATE (LOKELMA) 5 GM PACKET PO SCH (13:46)
[2022-06-12] MEDS: RIVAROXABAN 20 MG TABLET PO SCH (17:09)
[2022-06-12] MEDS: ROSUVASTATIN CA 10 MG TABLET PO SCH (21:16)
[2022-06-12] MEDS ORDERED: LIDOCAINE PATCH REMOVAL MC SCH (22:00)
[2022-06-12] MEDS: INSULIN (LEVEMIR) 100 UNITS/ML UNITS SQ SCH (22:10)
[2022-06-13] MEDS: oxyCODONE HCL 5 MG TABLET PO PRN ×3 (04:43→19:24)
[2022-06-13] MEDS: PREGABALIN 50 MG CAPSULE PO SCH ×2 (06:31→15:28)
[2022-06-13] MEDS: LORazepam 1 MG TABLET PO SCH ×3 (06:31→21:34)
[2022-06-13] MEDS: INSULIN SLIDING SCALE (NOVOLOG) 1 VIAL SQ SCH ×4 (06:43→21:40)
[2022-06-13] MEDS: AMINO ACIDS/PROTEIN HYDROLYS 30 ML LIQUID.PKT PO SCH ×2 (09:24→18:07)
[2022-06-13] MEDS: SODIUM ZIRCONIUM CYCLOSILICATE (LOKELMA) 5 GM PACKET PO SCH (09:25)
[2022-06-13] MEDS: ASPIRIN COATED 81 MG TABLET.EC PO SCH (09:25)
[2022-06-13] MEDS: COLLAGENASE CLOSTRIDIUM HIST. 30 GRAMS TUBE TP SCH (09:26)
[2022-06-13] MEDS: NYSTATIN 100,000 UNIT/GM TOPICAL CREAM 15 GM TUBE TP SCH ×2 (09:26→21:35)
[2022-06-13 09:49] LABS: HEMATOCRIT 32.6 % (32.4-45.2); HEMOGLOBIN 9.9 GM/dL (10.7-15.3); MCH 24.3 pg (25.7-33.7); MCHC 30.4 g/dl (32.0-36.0); MEAN CELL VOLUME 79.7 fl (80-96); MEAN PLT VOLUME 10.4 fl (7.5-11.1); PLATELET COUNT 275 10^3/uL (134-434); RBC 4.09 M/mm3 (3.60-5.2); RDW 16.4 % (11.6-15.6); WHITE BLOOD COUNT 10.9 K/mm3 (4.0-10.0)
[2022-06-13 10:22] LABS: ALBUMIN 2.7 g/dl (3.4-5.0); CALCIUM 9.1 mg/dL (8.5-10.1)
[2022-06-13 10:23] LABS: BLOOD UREA NITROGEN 26.3 mg/dL (7-18); MAGNESIUM 2.2 mg/dL (1.8-2.4)
[2022-06-13 10:25] LABS: CREATININE 1.1 mg/dL (0.55-1.3)
[2022-06-13 10:26] LABS: TOT PROT 7.5 g/dl (6.4-8.2)
[2022-06-13 10:27] LABS: BILIRUBIN,TOTAL 0.2 mg/dL (0.2-1)
[2022-06-13] MEDS ORDERED: PREGABALIN 75 MG CAPSULE PO SCH (15:13)
[2022-06-13] MEDS: PREGABALIN 75 MG CAPSULE PO SCH ×2 (15:27→21:34)
[2022-06-13] MEDS: RIVAROXABAN 20 MG TABLET PO SCH (18:11)
[2022-06-13] MEDS: DOCUSATE SODIUM 100 MG CAPSULE (FP) PO PRN (18:13)
[2022-06-13] MEDS: ROSUVASTATIN CA 10 MG TABLET PO SCH (21:34)
[2022-06-13] MEDS: INSULIN (LEVEMIR) 100 UNITS/ML UNITS SQ SCH (21:41)
[2022-06-14 06:59] VITALS: BP 100/61
[2022-06-14] MEDS: LORazepam 1 MG TABLET PO SCH ×2 (07:07→13:31)
[2022-06-14] MEDS: PREGABALIN 75 MG CAPSULE PO SCH ×2 (07:07→13:31)
[2022-06-14] MEDS: INSULIN SLIDING SCALE (NOVOLOG) 1 VIAL SQ SCH ×2 (07:08→11:22)
[2022-06-14 08:13] VITALS: PULSE 74; RESP 18; TEMP 98.9
[2022-06-14] MEDS: ASPIRIN COATED 81 MG TABLET.EC PO SCH (09:31)
[2022-06-14] MEDS: AMINO ACIDS/PROTEIN HYDROLYS 30 ML LIQUID.PKT PO SCH (09:31)
[2022-06-14] MEDS: COLLAGENASE CLOSTRIDIUM HIST. 30 GRAMS TUBE TP SCH (09:32)
[2022-06-14] MEDS: NYSTATIN 100,000 UNIT/GM TOPICAL CREAM 15 GM TUBE TP SCH (09:32)
[2022-06-14] MEDS: ACETAMINOPHEN 325 MG TABLET (FP) PO PRN (13:31)
== END 2022-06-14 14:25 | disposition home or self-care (01) ==
LOC: JER 14:09 → INTOOBSV 16:59 → JERBED 16:59 → J6S 06-10 19:51 → J8W 06-12 18:53
PROVIDERS: ADMIT Internal Medicine; ATTEND Family Medicine
PROC: 3E013VG Introduction of Insulin into Subcutaneous Tissue, Percutaneous Approach (ICD-10-PCS; principal; 2022-06-09)
PROC: 3E033NZ Introduction of Analgesics, Hypnotics, Sedatives into Peripheral Vein, Percutaneous Approach (ICD-10-PCS; 2022-06-09)
DX: G93.89 Other specified disorders of brain (principal); S22.39XA Fracture of one rib, unspecified side, initial encounter for closed fracture; N17.9 Acute kidney failure, unspecified; E11.9 Type 2 diabetes mellitus without complications; I25.10 Atherosclerotic heart disease of native coronary artery without angina pectoris; E78.5 Hyperlipidemia, unspecified; I73.9 Peripheral vascular disease, unspecified; J44.9 Chronic obstructive pulmonary disease, unspecified; L89.209 Pressure ulcer of unspecified hip, unspecified stage; X58.XXXA Exposure to other specified factors, initial encounter; Y93.89 Activity, other specified; Y92.89 Other specified places as the place of occurrence of the external cause; K21.9 Gastro-esophageal reflux disease without esophagitis; I11.9 Hypertensive heart disease without heart failure; I25.2 Old myocardial infarction; D64.9 Anemia, unspecified
CPT/HCPCS: 0241U-QW; 36415; 70450-TC; 71101-TC-RT-FY; 71250-TC; 72125-TC; 80048; 80053; 82962; 83735; 84484; 85025; 85027; 85610; 85730; 93005; 93010; 99285-25; G0378

== ENCOUNTER 2022-12-21 21:34 | Inpatient (IN) | payer OTHER ==
[2022-12-21] MEDS ORDERED: ACETAMINOPHEN INJECTION 100 ML IVPB ONE (21:53)
[2022-12-21] MEDS ORDERED: LACTATED RINGERS SOLUTION 1000 ML INFUS.BAG IV ONE (22:27)
[2022-12-21] MEDS ORDERED: ACETAMINOPHEN 1000 MG/100 ML BAG IVPB ONE (22:27)
[2022-12-21 22:38] LABS: BASO % 0.4 % (0-2.0); EOS % 0.7 % (0-4.5); HEMATOCRIT 37.9 % (32.4-45.2); HEMOGLOBIN 12.2 GM/dL (10.7-15.3); LYMPH % 5.3 % (8-40); MCH 24.8 pg (25.7-33.7); MCHC 32.2 g/dl (32.0-36.0); MEAN CELL VOLUME 76.9 fl (80-96); MEAN PLT VOLUME 8.9 fl (7.5-11.1); MONO % 2.6 % (3.8-10.2); PLATELET COUNT 340 10^3/uL (134-434); RBC 4.93 M/mm3 (3.60-5.2); RDW 19.8 % (11.6-15.6); WHITE BLOOD COUNT 17.3 K/mm3 (4.0-10.0)
[2022-12-21 22:51] LABS: INR 1.51 (0.83-1.09); PROTHROMBIN TIME (PATIENT) 17.5 SEC (9.7-13.0)
[2022-12-21 22:54] LABS: ACTIVATED PTT 34.6 SECONDS (25.2-36.5)
[2022-12-21 22:57] LABS: POTASSIUM 4.7 mmol/L (3.5-5.1)
[2022-12-21 22:58] LABS: CALCIUM 8.6 mg/dL (8.5-10.1)
[2022-12-21 22:59] LABS: ALBUMIN 3.4 g/dl (3.4-5.0); BLOOD UREA NITROGEN 16.6 mg/dL (7-18); MAGNESIUM 1.9 mg/dL (1.8-2.4)
[2022-12-21 23:02] LABS: CREATININE 1.5 mg/dL (0.55-1.3)
[2022-12-21 23:03] LABS: BILIRUBIN,TOTAL 0.2 mg/dL (0.2-1); TOT PROT 8.6 g/dl (6.4-8.2)
[2022-12-21 23:18] LABS: ANISOCYTOSIS 1+; MACROCYTOSIS 1+
[2022-12-22] MEDS ORDERED: LACTATED RINGERS SOLUTION 1000 ML INFUS.BAG IV ONE (00:27)
[2022-12-22 01:45] LABS: EPI CELLS 5 /uL (0-25.1); HYALINE CASTS 0 /uL (0-3.1); PH,URINE 5.5 (5.0-8.0); URINE APPEARANCE CLEAR; URINE BACTERIA 3 /uL (0-1359); URINE BILIRUBIN NEGATIVE (NEGATIVE); URINE COLOR YELLOW; URINE GLUCOSE (UA) TRACE (NEGATIVE); URINE KETONE NEGATIVE (NEGATIVE); URINE LEUK ESTERASE NEGATIVE (NEGATIVE); URINE NITRITE NEGATIVE (NEGATIVE); URINE PROTEIN 1+ (NEGATIVE); URINE RBC 5 /uL (0-23.9); URINE WBC 4 /uL (0-25.8)
[2022-12-22] MEDS ORDERED: PIPERACILLIN/TAZOB 4.5 GM 4.5 GM in DEXTROSE 5%-WATER 100 ML IVPB ONE (02:12)
[2022-12-22] MEDS ORDERED: VANCOMYCIN/WATER FOR INJ (PEG) 1,000 MG/200 ML BAG IVPB ONE ×2 (02:30→03:53)
[2022-12-22] MEDS ORDERED: PIPERACILLIN/TAZOB 4.5 GM 4.5 GM/100 ML BAG IVPB ONE (02:55)
[2022-12-22] MEDS ORDERED: DOCUSATE SODIUM 100 MG CAPSULE (FP) PO PRN (04:55)
[2022-12-22] MEDS ORDERED: ACETAMINOPHEN 1000 MG/100 ML BAG IVPB PRN (05:00)
[2022-12-22] MEDS ORDERED: SODIUM CHLORIDE 1,000 ML IV SCH (05:00)
[2022-12-22] MEDS ORDERED: PIPERACILLIN/TAZOB 3.375 GM 3.375 GM/50 ML BAG IVPB ONE (08:09)
[2022-12-22] MEDS: PIPERACILLIN/TAZOB 3.375 GM 3.375 GM in DEXTROSE 5%-WATER - 50 ML IVPB SCH ×3 (08:14→22:53)
[2022-12-22 08:19] LABS: BASO % 0.6 % (0-2.0); EOS % 1.6 % (0-4.5); HEMATOCRIT 31.8 % (32.4-45.2); HEMOGLOBIN 10.2 GM/dL (10.7-15.3); LYMPH % 22.8 % (8-40); MCH 24.9 pg (25.7-33.7); MEAN CELL VOLUME 77.6 fl (80-96); MEAN PLT VOLUME 8.8 fl (7.5-11.1); MONO % 4.3 % (3.8-10.2); NEUT % 70.7 % (42.8-82.8); PLATELET COUNT 303 10^3/uL (134-434); RDW 19.8 % (11.6-15.6); WHITE BLOOD COUNT 17.9 K/mm3 (4.0-10.0)
[2022-12-22 08:39] LABS: CALCIUM 7.8 mg/dL (8.5-10.1)
[2022-12-22 08:40] LABS: BLOOD UREA NITROGEN 17.7 mg/dL (7-18); MAGNESIUM 1.9 mg/dL (1.8-2.4)
[2022-12-22 08:42] LABS: PHOSPHOROUS 3.5 mg/dL (2.5-4.9)
[2022-12-22 08:43] LABS: CREATININE 1.2 mg/dL (0.55-1.3)
[2022-12-22 08:44] LABS: BILIRUBIN,TOTAL 0.4 mg/dL (0.2-1)
[2022-12-22 08:51] LABS: ALBUMIN 2.5 g/dl (3.4-5.0); TOT PROT 6.3 g/dl (6.4-8.2)
[2022-12-22] MEDS ORDERED: PIPERACILLIN/TAZOB 3.375 GM 3.375 GM in DEXTROSE 5%-WATER - 50 ML IVPB SCH (09:00)
[2022-12-22] MEDS: SODIUM CHLORIDE 1,000 ML IV SCH ×2 (12:09→14:33)
[2022-12-22] MEDS ORDERED: SENNOSIDES 8.6MG TABLET (FP) PO PRN (12:16)
[2022-12-22] MEDS ORDERED: SODIUM CHLORIDE NASAL SPRAY 44 ML BOTTLE NS PRN (12:16)
[2022-12-22] MEDS ORDERED: METOCLOPRAMIDE HCL INJECTION 10 MG/2 ML VIAL IVPUSH ONE (14:15)
[2022-12-22] MEDS: oxyCODONE HCL 5 MG TABLET PO PRN ×2 (14:31→22:51)
[2022-12-22] MEDS: VANCOMYCIN/WATER FOR INJ (PEG) 1,000 MG/200 ML BAG IVPB SCH (14:32)
[2022-12-22] MEDS: PREGABALIN 50 MG CAPSULE PO SCH ×2 (14:32→22:53)
[2022-12-22] MEDS: ALBUTEROL SO4 2.5/IPRATROPIUM 0.5 INH SOL 3 ML VIAL.NEB. NEB SCH ×2 (15:50→20:03)
[2022-12-22] MEDS: RIVAROXABAN 20 MG TABLET PO SCH (17:33)
[2022-12-22] MEDS: AMINO ACIDS/PROTEIN HYDROLYS 30 ML LIQUID.PKT PO SCH (17:33)
[2022-12-22] MEDS ORDERED: ROSUVASTATIN CA 10 MG TABLET PO SCH (22:00)
[2022-12-22] MEDS ORDERED: POLYETHYLENE GLYCOL (HEALTHYLAX) 3350 17 GM PACKET PO SCH (22:00)
[2022-12-22] MEDS ORDERED: LORazepam 1 MG TABLET ONE (22:50)
[2022-12-22] MEDS: LORazepam 1 MG TABLET PO PRN (22:52)
[2022-12-22] MEDS: NYSTATIN 100,000 UNIT/GM TOPICAL CREAM 15 GM TUBE TP SCH (23:28)
[2022-12-23] MEDS: VANCOMYCIN/WATER FOR INJ (PEG) 1,000 MG/200 ML BAG IVPB SCH (01:41)
[2022-12-23] MEDS: PIPERACILLIN/TAZOB 3.375 GM 3.375 GM in DEXTROSE 5%-WATER - 50 ML IVPB SCH ×2 (02:42→21:39)
[2022-12-23] MEDS ORDERED: ACETAMINOPHEN 325 MG TABLET (FP) PO PRN (04:55)
[2022-12-23] MEDS: PREGABALIN 50 MG CAPSULE PO SCH ×3 (05:47→21:39)
[2022-12-23] MEDS: oxyCODONE HCL 5 MG TABLET PO PRN ×2 (05:48→13:57)
[2022-12-23] MEDS: ALBUTEROL SO4 2.5/IPRATROPIUM 0.5 INH SOL 3 ML VIAL.NEB. NEB SCH ×4 (08:38→21:17)
[2022-12-23] MEDS: metoPROLOL SUCCINATE 25 MG TAB.SR.24H (FP) PO SCH (09:23)
[2022-12-23] MEDS: ASCORBIC ACID 500 MG TABLET (FP) PO SCH (09:25)
[2022-12-23] MEDS: AMINO ACIDS/PROTEIN HYDROLYS 30 ML LIQUID.PKT PO SCH ×3 (09:25→17:18)
[2022-12-23] MEDS: PANTOPRAZOLE 40 MG TABLET PO SCH (09:25)
[2022-12-23] MEDS: ASPIRIN 81 MG CHEWABLE TABLETS PO SCH (09:25)
[2022-12-23] MEDS: LORazepam 1 MG TABLET PO PRN (09:30)
[2022-12-23] MEDS: NYSTATIN 100,000 UNIT/GM TOPICAL CREAM 15 GM TUBE TP SCH ×2 (09:32→21:40)
[2022-12-23] MEDS ORDERED: FLU VACC QS2022-23(6MOS UP)/PF 60 MCG/0.5 ML SYRINGE IM ONE (10:00)
[2022-12-23] MEDS: POLYETHYLENE GLYCOL (HEALTHYLAX) 3350 17 GM PACKET PO SCH ×2 (10:45→21:25)
[2022-12-23 13:02] VITALS: BMI 25.9
[2022-12-23] MEDS: SODIUM CHLORIDE 1,000 ML IV SCH ×2 (13:59→21:41)
[2022-12-23] MEDS: RIVAROXABAN 20 MG TABLET PO SCH (17:18)
[2022-12-24] MEDS: oxyCODONE HCL 5 MG TABLET PO PRN ×4 (00:25→23:57)
[2022-12-24] MEDS: PIPERACILLIN/TAZOB 3.375 GM 3.375 GM in DEXTROSE 5%-WATER - 50 ML IVPB SCH ×3 (02:45→14:29)
[2022-12-24] MEDS: LORazepam 1 MG TABLET PO PRN ×2 (02:45→12:27)
[2022-12-24] MEDS: PREGABALIN 50 MG CAPSULE PO SCH ×3 (05:22→22:12)
[2022-12-24] MEDS ORDERED: INSULIN (NOVOLOG) ASPART 100 UNITS/ML 10ML VIAL SQ ONE (06:45)
[2022-12-24] MEDS: ALBUTEROL SO4 2.5/IPRATROPIUM 0.5 INH SOL 3 ML VIAL.NEB. NEB SCH ×4 (08:18→20:07)
[2022-12-24] MEDS: AMINO ACIDS/PROTEIN HYDROLYS 30 ML LIQUID.PKT PO SCH ×3 (09:07→18:58)
[2022-12-24] MEDS: ASCORBIC ACID 500 MG TABLET (FP) PO SCH (09:14)
[2022-12-24] MEDS: ASPIRIN 81 MG CHEWABLE TABLETS PO SCH (09:14)
[2022-12-24] MEDS: PANTOPRAZOLE 40 MG TABLET PO SCH (09:14)
[2022-12-24] MEDS: POLYETHYLENE GLYCOL (HEALTHYLAX) 3350 17 GM PACKET PO SCH ×3 (09:14→22:08)
[2022-12-24] MEDS: metoPROLOL SUCCINATE 25 MG TAB.SR.24H (FP) PO SCH (09:15)
[2022-12-24] MEDS: MULTIVITAMINS (DAILY MVI) TABLET (FP) PO SCH (09:16)
[2022-12-24] MEDS: NYSTATIN 100,000 UNIT/GM TOPICAL CREAM 15 GM TUBE TP SCH ×2 (09:18→22:13)
[2022-12-24 09:28] LABS: BASO % 0.7 % (0-2.0); EOS % 10.3 % (0-4.5); HEMATOCRIT 29.4 % (32.4-45.2); HEMOGLOBIN 9.5 GM/dL (10.7-15.3); LYMPH % 34.6 % (8-40); MCHC 32.2 g/dl (32.0-36.0); MEAN CELL VOLUME 77.5 fl (80-96); MEAN PLT VOLUME 9.7 fl (7.5-11.1); MONO % 6.6 % (3.8-10.2); NEUT % 47.8 % (42.8-82.8); PLATELET COUNT 253 10^3/uL (134-434); RBC 3.79 M/mm3 (3.60-5.2); RDW 19.9 % (11.6-15.6); WHITE BLOOD COUNT 7.8 K/mm3 (4.0-10.0)
[2022-12-24 10:58] LABS: ALBUMIN 2.4 g/dl (3.4-5.0); BILIRUBIN,TOTAL 0.3 mg/dL (0.2-1); BLOOD UREA NITROGEN 20.8 mg/dL (7-18); CALCIUM 7.5 mg/dL (8.5-10.1); CREATININE 1.4 mg/dL (0.55-1.3); POTASSIUM 3.7 mmol/L (3.5-5.1); TOT PROT 6.2 g/dl (6.4-8.2)
[2022-12-24] MEDS: LACTATED RINGERS SOLUTION 1,000 ML/1,000 ML INFUS.BAG IV SCH ×2 (13:11→23:47)
[2022-12-24] MEDS: SODIUM CHLORIDE 1,000 ML IV SCH (15:11)
[2022-12-24] MEDS: RIVAROXABAN 20 MG TABLET PO SCH (18:58)
[2022-12-25] MEDS ORDERED: VANCOMYCIN 1 GM in D5W (PRE-DOCKED) 1,000 MG/250 ML (RESTRICTED TO ID ONLY IVPB SCH (02:00)
[2022-12-25] MEDS: LORazepam 1 MG TABLET PO PRN ×2 (03:12→12:13)
[2022-12-25] MEDS: INSULIN (LEVEMIR) 100 UNITS/ML UNITS SQ SCH (06:16)
[2022-12-25] MEDS: PREGABALIN 50 MG CAPSULE PO SCH ×3 (06:16→21:22)
[2022-12-25] MEDS: INSULIN SLIDING SCALE (NOVOLOG) 1 VIAL SQ SCH ×4 (06:16→21:29)
[2022-12-25] MEDS: ALBUTEROL SO4 2.5/IPRATROPIUM 0.5 INH SOL 3 ML VIAL.NEB. NEB SCH ×4 (07:40→19:58)
[2022-12-25] MEDS: SODIUM CHLORIDE 1,000 ML IV SCH ×2 (08:49→19:25)
[2022-12-25] MEDS: VANCOMYCIN 1 GM in D5W (PRE-DOCKED) 1,000 MG/250 ML (RESTRICTED TO ID ONLY IVPB SCH ×2 (08:49→08:50)
[2022-12-25 08:59] LABS: HEMATOCRIT 30.2 % (32.4-45.2); HEMOGLOBIN 9.8 GM/dL (10.7-15.3); MCH 25.1 pg (25.7-33.7); MCHC 32.4 g/dl (32.0-36.0); MEAN CELL VOLUME 77.3 fl (80-96); MEAN PLT VOLUME 9.6 fl (7.5-11.1); PLATELET COUNT 260 10^3/uL (134-434); RBC 3.91 M/mm3 (3.60-5.2); RDW 19.5 % (11.6-15.6); WHITE BLOOD COUNT 7.3 K/mm3 (4.0-10.0)
[2022-12-25 09:22] LABS: CALCIUM 8.7 mg/dL (8.5-10.1); CREATININE 1.2 mg/dL (0.55-1.3)
[2022-12-25] MEDS: AMINO ACIDS/PROTEIN HYDROLYS 30 ML LIQUID.PKT PO SCH ×3 (10:46→17:17)
[2022-12-25] MEDS: ASCORBIC ACID 500 MG TABLET (FP) PO SCH (10:47)
[2022-12-25] MEDS: oxyCODONE HCL 5 MG TABLET PO PRN ×2 (10:47→18:46)
[2022-12-25] MEDS: metoPROLOL SUCCINATE 25 MG TAB.SR.24H (FP) PO SCH (10:49)
[2022-12-25] MEDS: MULTIVITAMINS (DAILY MVI) TABLET (FP) PO SCH (10:49)
[2022-12-25] MEDS: PANTOPRAZOLE 40 MG TABLET PO SCH (10:49)
[2022-12-25] MEDS: ASPIRIN 81 MG CHEWABLE TABLETS PO SCH (10:49)
[2022-12-25] MEDS: POLYETHYLENE GLYCOL (HEALTHYLAX) 3350 17 GM PACKET PO SCH ×2 (10:50→21:22)
[2022-12-25] MEDS: NYSTATIN 100,000 UNIT/GM TOPICAL CREAM 15 GM TUBE TP SCH ×2 (10:50→21:23)
[2022-12-25] MEDS: RIVAROXABAN 20 MG TABLET PO SCH (17:17)
[2022-12-25] MEDS ORDERED: IRON SUCROSE INJECTION 200 MG in SODIUM CHLORIDE 90 ML IVPB ONE (17:46)
[2022-12-25] MEDS: LACTATED RINGERS SOLUTION 1,000 ML/1,000 ML INFUS.BAG IV SCH (19:25)
[2022-12-25] MEDS: COLLAGENASE CLOSTRIDIUM HIST. 30 GRAMS TUBE TP SCH (19:26)
[2022-12-26] MEDS: oxyCODONE HCL 5 MG TABLET PO PRN ×2 (02:21→10:02)
[2022-12-26] MEDS: SODIUM CHLORIDE 1,000 ML IV SCH (02:23)
[2022-12-26] MEDS: PREGABALIN 50 MG CAPSULE PO SCH (05:08)
[2022-12-26] MEDS: INSULIN SLIDING SCALE (NOVOLOG) 1 VIAL SQ SCH (06:01)
[2022-12-26] MEDS: INSULIN (LEVEMIR) 100 UNITS/ML UNITS SQ SCH (06:02)
[2022-12-26] MEDS: ALBUTEROL SO4 2.5/IPRATROPIUM 0.5 INH SOL 3 ML VIAL.NEB. NEB SCH (07:40)
[2022-12-26] MEDS: AMINO ACIDS/PROTEIN HYDROLYS 30 ML LIQUID.PKT PO SCH (08:48)
[2022-12-26] MEDS: PANTOPRAZOLE 40 MG TABLET PO SCH (09:51)
[2022-12-26] MEDS: ASPIRIN 81 MG CHEWABLE TABLETS PO SCH (09:52)
[2022-12-26] MEDS: ASCORBIC ACID 500 MG TABLET (FP) PO SCH (09:52)
[2022-12-26] MEDS: metoPROLOL SUCCINATE 25 MG TAB.SR.24H (FP) PO SCH (09:52)
[2022-12-26] MEDS: POLYETHYLENE GLYCOL (HEALTHYLAX) 3350 17 GM PACKET PO SCH (09:53)
[2022-12-26] MEDS: MULTIVITAMINS (DAILY MVI) TABLET (FP) PO SCH (09:54)
[2022-12-26] MEDS: COLLAGENASE CLOSTRIDIUM HIST. 30 GRAMS TUBE TP SCH (09:54)
[2022-12-26] MEDS: NYSTATIN 100,000 UNIT/GM TOPICAL CREAM 15 GM TUBE TP SCH (09:55)
[2022-12-26 10:17] VITALS: BP 137/77; PULSE 80; RESP 16; TEMP 98.8
== END 2022-12-26 11:50 | disposition home or self-care (01) | DRG 663 ==
LOC: JER 21:34 → JERBED 12-22 02:16 → J7W 12-22 12:51
PROVIDERS: ADMIT Internal Medicine; ATTEND Family Medicine
DX: D72.829 Elevated white blood cell count, unspecified (principal); L89.153 Pressure ulcer of sacral region, stage 3; N17.9 Acute kidney failure, unspecified; E11.22 Type 2 diabetes mellitus with diabetic chronic kidney disease; M62.82 Rhabdomyolysis; I48.91 Unspecified atrial fibrillation; I12.9 Hypertensive chronic kidney disease with stage 1 through stage 4 chronic kidney disease, or unspecified chronic kidney disease; I25.10 Atherosclerotic heart disease of native coronary artery without angina pectoris; I73.9 Peripheral vascular disease, unspecified; J44.9 Chronic obstructive pulmonary disease, unspecified; K59.00 Constipation, unspecified; Z89.619 Acquired absence of unspecified leg above knee; E11.52 Type 2 diabetes mellitus with diabetic peripheral angiopathy with gangrene; I42.9 Cardiomyopathy, unspecified; N18.9 Chronic kidney disease, unspecified; I69.351 Hemiplegia and hemiparesis following cerebral infarction affecting right dominant side
CPT/HCPCS: 0241U-QW; 36415; 70450-TC; 71045-TC-FY; 74177-TC; 76705-TC; 80048; 80053; 81003; 82550; 82553; 82607; 82728; 82746; 82962; 82977; 83540; 83550; 83605; 83735; 84100; 84484; 85025; 85027; 85610; 85651; 85730; 86704; 86708; 86803; 87040; 87340; 87517; 93005; 93010; 94640; 97116-GP; 99285-25; G0008; J1756; Q2036; Q9967

== ENCOUNTER 2023-02-23 23:51 | Inpatient (IN) | payer OTHER ==
[2023-02-24] MEDS ORDERED: SODIUM CHLORIDE IV ONE (00:07)
[2023-02-24] MEDS ORDERED: ACETAMINOPHEN INJECTION 100 ML IVPB ONE ×2 (00:34→15:53)
[2023-02-24] MEDS ORDERED: ACETAMINOPHEN 1000 MG/100 ML BAG IVPB ONE (00:36)
[2023-02-24] MEDS ORDERED: PIPERACILLIN/TAZOB 4.5 GM 4.5 GM in DEXTROSE 5%-WATER 100 ML IVPB ONE (00:41)
[2023-02-24] MEDS ORDERED: VANCOMYCIN 1 GM in D5W (PRE-DOCKED) 1,000 MG/250 ML (RESTRICTED TO ID ONLY IVPB ONE (00:41)
[2023-02-24] MEDS ORDERED: PIPERACILLIN/TAZOB 4.5 GM 4.5 GM/100 ML BAG IVPB ONE (00:46)
[2023-02-24] MEDS ORDERED: VANCOMYCIN/WATER FOR INJ (PEG) 1,000 MG/200 ML BAG IVPB ONE ×3 (00:47→12:39)
[2023-02-24 00:51] LABS: BASO % 0.6 % (0-2.0); EOS % 0.7 % (0-4.5); HEMATOCRIT 37.5 % (32.4-45.2); HEMOGLOBIN 11.9 GM/dL (10.7-15.3); LYMPH % 12.2 % (8-40); MCH 24.6 pg (25.7-33.7); MCHC 31.6 g/dl (32.0-36.0); MEAN CELL VOLUME 77.8 fl (80-96); MEAN PLT VOLUME 8.4 fl (7.5-11.1); MONO % 6.2 % (3.8-10.2); NEUT % 80.3 % (42.8-82.8); PLATELET COUNT 317 10^3/uL (134-434); RBC 4.82 M/mm3 (3.60-5.2); RDW 18.4 % (11.6-15.6); WHITE BLOOD COUNT 16.6 K/mm3 (4.0-10.0)
[2023-02-24 01:01] LABS: INR 1.24 (0.83-1.09); PROTHROMBIN TIME (PATIENT) 14.3 SEC (9.7-13.0)
[2023-02-24 01:04] LABS: ACTIVATED PTT 32.1 SECONDS (25.2-36.5)
[2023-02-24 01:06] LABS: VENOUS O2 SATURATION 51.4 % (70-80); VENOUS PCO2 41.6 mmHg (38-52); VENOUS PH 7.35 (7.310-7.410)
[2023-02-24 01:45] LABS: CHLORIDE 107 mmol/L (98-107); POTASSIUM 4.8 mmol/L (3.5-5.1); SODIUM 139 mmol/L (136-145)
[2023-02-24 01:47] LABS: ANION GAP 9 MMOL/L (8-16); CO2 24 mmol/L (21-32)
[2023-02-24 01:48] LABS: BLOOD UREA NITROGEN 14.2 mg/dL (7-18); GLUCOSE,RANDOM 152 mg/dL (74-106)
[2023-02-24 01:50] LABS: CREATININE 1.7 mg/dL (0.55-1.3); SGOT/AST 10 U/L (15-37)
[2023-02-24 01:51] LABS: SGPT/ALT 9 U/L (13-61)
[2023-02-24 01:52] LABS: BILIRUBIN,TOTAL 0.7 mg/dL (0.2-1); TOT PROT 8.2 g/dl (6.4-8.2)
[2023-02-24 01:53] LABS: ALK PHOS 169 U/L (45-117)
[2023-02-24] MEDS ORDERED: morphine SULFATE 4 MG/ML VIAL IVPUSH ONE (05:06)
[2023-02-24] MEDS ORDERED: morphine SULFATE 4 MG/ML VIAL ONE ×3 (05:13→17:21)
[2023-02-24] MEDS ORDERED: ACETAMINOPHEN 1000 MG/100 ML BAG IVPB PRN (05:57)
[2023-02-24 05:59] LABS: PH,URINE 5.5 (5.0-8.0); URINE APPEARANCE CLEAR; URINE BILIRUBIN NEGATIVE (NEGATIVE); URINE COLOR YELLOW; URINE GLUCOSE (UA) NEGATIVE (NEGATIVE); URINE KETONE NEGATIVE (NEGATIVE); URINE LEUK ESTERASE NEGATIVE (NEGATIVE); URINE NITRITE NEGATIVE (NEGATIVE); URINE PROTEIN NEGATIVE (NEGATIVE)
[2023-02-24] MEDS ORDERED: SODIUM CHLORIDE 1,000 ML IV SCH ×2 (06:00→08:30)
[2023-02-24] MEDS ORDERED: DOCUSATE SODIUM 100 MG CAPSULE (FP) PO PRN (06:01)
[2023-02-24] MEDS ORDERED: PIPERACILLIN/TAZOB 3.375 GM 3.375 GM in DEXTROSE 5%-WATER - 50 ML IVPB ONE ×3 (06:48→09:00)
[2023-02-24] MEDS: INSULIN SLIDING SCALE (NOVOLOG) 1 VIAL SQ SCH ×4 (07:29→23:01)
[2023-02-24] MEDS ORDERED: PIPERACILLIN/TAZOB 3.375 GM 3.375 GM/50 ML BAG IVPB ONE (07:33)
[2023-02-24 08:34] LABS: MAGNESIUM 1.7 mg/dL (1.8-2.4)
[2023-02-24 08:38] LABS: PHOSPHOROUS 3.2 mg/dL (2.5-4.9)
[2023-02-24] MEDS ORDERED: VANCOMYCIN 1 GM in D5W (PRE-DOCKED) 1,000 MG/250 ML (RESTRICTED TO ID ONLY IVPB SCH ×2 (08:45→12:00)
[2023-02-24] MEDS: morphine SULFATE 4 MG/ML VIAL IVPUSH PRN ×2 (11:04→17:20)
[2023-02-24] MEDS: VANCOMYCIN 1 GM in D5W (PRE-DOCKED) 1,000 MG/250 ML (RESTRICTED TO ID ONLY IVPB SCH (12:46)
[2023-02-24] MEDS ORDERED: PIPERACILLIN/TAZOB 2.25 GM 2.25 GM/50 ML BAG IVPB ONE (13:39)
[2023-02-24] MEDS: PIPERACILLIN/TAZOB 2.25 GM 2.25 GM in DEXTROSE 5%-WATER - 50 ML IVPB SCH ×2 (14:32→22:49)
[2023-02-25] MEDS ORDERED: VANCOMYCIN 1 GM/200 ML PREMIX BAG (RESTRICTED TO ID ONLY) IVPB SCH (02:00)
[2023-02-25] MEDS: VANCOMYCIN 1 GM in D5W (PRE-DOCKED) 1,000 MG/250 ML (RESTRICTED TO ID ONLY IVPB SCH (02:15)
[2023-02-25] MEDS: PIPERACILLIN/TAZOB 2.25 GM 2.25 GM in DEXTROSE 5%-WATER - 50 ML IVPB SCH ×3 (02:24→20:40)
[2023-02-25] MEDS ORDERED: ACETAMINOPHEN 325 MG TABLET (FP) PO PRN (05:51)
[2023-02-25] MEDS: INSULIN SLIDING SCALE (NOVOLOG) 1 VIAL SQ SCH ×3 (06:09→21:01)
[2023-02-25 07:41] LABS: BASO % 0.7 % (0-2.0); EOS % 2.6 % (0-4.5); HEMATOCRIT 34.1 % (32.4-45.2); HEMOGLOBIN 10.4 GM/dL (10.7-15.3); LYMPH % 16.4 % (8-40); MCH 24.6 pg (25.7-33.7); MCHC 30.7 g/dl (32.0-36.0); MEAN CELL VOLUME 80.4 fl (80-96); MEAN PLT VOLUME 9.2 fl (7.5-11.1); MONO % 6.8 % (3.8-10.2); NEUT % 73.5 % (42.8-82.8); PLATELET COUNT 251 10^3/uL (134-434); RBC 4.24 M/mm3 (3.60-5.2); RDW 18.4 % (11.6-15.6); WHITE BLOOD COUNT 14.2 K/mm3 (4.0-10.0)
[2023-02-25 07:58] LABS: POTASSIUM 4.5 mmol/L (3.5-5.1)
[2023-02-25 08:06] LABS: BLOOD UREA NITROGEN 11.4 mg/dL (7-18); CALCIUM 8.4 mg/dL (8.5-10.1)
[2023-02-25 08:09] LABS: CREATININE 1.3 mg/dL (0.55-1.3)
[2023-02-25 08:11] LABS: BILIRUBIN,TOTAL 0.9 mg/dL (0.2-1); TOT PROT 6.3 g/dl (6.4-8.2)
[2023-02-25 08:16] LABS: ALBUMIN 2.2 g/dl (3.4-5.0)
[2023-02-25] MEDS ORDERED: LIDOCAINE HCL/PF 2% SDV 5ML VIAL ONE (11:04)
[2023-02-25] MEDS ORDERED: DEXAMETHASONE SOD PHOSPHATE 4 MG/1 ML VIAL ONE (11:04)
[2023-02-25] MEDS ORDERED: SUCCINYLCHOLINE CHLORIDE 200 MG/10 ML SYRINGE ONE (11:05)
[2023-02-25] MEDS ORDERED: PROPOFOL 20 ML ONE (11:05)
[2023-02-25] MEDS ORDERED: MIDAZOLAM HCL 2 MG/2 ML SINGLE DOSE VIAL ONE (11:05)
[2023-02-25] MEDS ORDERED: ONDANSETRON 4 MG/2 ML VIAL IVPUSH PRN ×2 (11:06→12:35)
[2023-02-25] MEDS ORDERED: LACTATED RINGERS SOLUTION 1,000 ML IV SCH ×2 (11:15→12:35)
[2023-02-25] MEDS ORDERED: ONDANSETRON 4 MG/2 ML VIAL ONE (12:28)
[2023-02-25] MEDS ORDERED: DOCUSATE SODIUM 100 MG CAPSULE (FP) PO PRN (12:35)
[2023-02-25] MEDS: morphine SULFATE 4 MG/ML VIAL IVPUSH PRN ×2 (14:28→20:41)
[2023-02-25] MEDS: ACETAMINOPHEN 325 MG TABLET (FP) PO PRN (18:43)
[2023-02-25] MEDS: VANCOMYCIN 1 GM/200 ML PREMIX BAG (RESTRICTED TO ID ONLY) IVPB SCH (22:12)
[2023-02-26] MEDS ORDERED: ALBUTEROL SO4 0.083% IH SOL 2.5 MG/3 ML VIAL.NEB. NEB PRN (01:59)
[2023-02-26] MEDS: PIPERACILLIN/TAZOB 2.25 GM 2.25 GM in DEXTROSE 5%-WATER - 50 ML IVPB SCH ×5 (02:46→13:03)
[2023-02-26] MEDS: morphine SULFATE 4 MG/ML VIAL IVPUSH PRN ×4 (02:47→22:43)
[2023-02-26] MEDS: INSULIN SLIDING SCALE (NOVOLOG) 1 VIAL SQ SCH ×5 (02:49→21:40)
[2023-02-26] MEDS: PREGABALIN 75 MG CAPSULE PO SCH ×4 (06:00→21:45)
[2023-02-26 07:57] LABS: BASO % 0.5 % (0-2.0); HEMATOCRIT 33.4 % (32.4-45.2); HEMOGLOBIN 10.4 GM/dL (10.7-15.3); LYMPH % 10.2 % (8-40); MCH 24.3 pg (25.7-33.7); MCHC 31.1 g/dl (32.0-36.0); MEAN PLT VOLUME 8.7 fl (7.5-11.1); MONO % 4.1 % (3.8-10.2); NEUT % 85.2 % (42.8-82.8); PLATELET COUNT 265 10^3/uL (134-434); RBC 4.28 M/mm3 (3.60-5.2); RDW 18.3 % (11.6-15.6); WHITE BLOOD COUNT 17.5 K/mm3 (4.0-10.0)
[2023-02-26 08:19] LABS: POTASSIUM 5.1 mmol/L (3.5-5.1)
[2023-02-26 08:22] LABS: ALBUMIN 2.3 g/dl (3.4-5.0); CALCIUM 8.9 mg/dL (8.5-10.1)
[2023-02-26 08:25] LABS: CREATININE 1.2 mg/dL (0.55-1.3)
[2023-02-26 08:27] LABS: BILIRUBIN,TOTAL 0.3 mg/dL (0.2-1); TOT PROT 6.9 g/dl (6.4-8.2)
[2023-02-26] MEDS: ACETAMINOPHEN 325 MG TABLET (FP) PO PRN ×2 (09:02→15:51)
[2023-02-26] MEDS: VANCOMYCIN 1 GM/200 ML PREMIX BAG (RESTRICTED TO ID ONLY) IVPB SCH ×2 (10:58→13:04)
[2023-02-26] MEDS: metoPROLOL SUCCINATE 25 MG TAB.SR.24H (FP) PO SCH (10:58)
[2023-02-26 15:07] VITALS: BMI 27.0
[2023-02-26] MEDS: PIPERACILLIN/TAZOB 3.375 GM 3.375 GM in DEXTROSE 5%-WATER - 50 ML IVPB SCH ×2 (15:51→21:39)
[2023-02-26] MEDS: AMINO ACIDS/PROTEIN HYDROLYS 30 ML LIQUID.PKT PO SCH (18:33)
[2023-02-26] MEDS: ASCORBIC ACID 250 MG TABLET (FP) PO SCH (21:40)
[2023-02-27] MEDS: PIPERACILLIN/TAZOB 3.375 GM 3.375 GM in DEXTROSE 5%-WATER - 50 ML IVPB SCH ×4 (02:51→21:44)
[2023-02-27] MEDS: morphine SULFATE 4 MG/ML VIAL IVPUSH PRN ×4 (04:36→22:16)
[2023-02-27] MEDS: PREGABALIN 75 MG CAPSULE PO SCH ×3 (05:16→22:16)
[2023-02-27] MEDS: INSULIN SLIDING SCALE (NOVOLOG) 1 VIAL SQ SCH ×4 (06:01→22:16)
[2023-02-27 07:54] LABS: BASO % 0.8 % (0-2.0); EOS % 1.8 % (0-4.5); HEMATOCRIT 32.9 % (32.4-45.2); HEMOGLOBIN 10.4 GM/dL (10.7-15.3); LYMPH % 40.4 % (8-40); MCH 24.9 pg (25.7-33.7); MCHC 31.5 g/dl (32.0-36.0); MEAN PLT VOLUME 9.5 fl (7.5-11.1); MONO % 4.6 % (3.8-10.2); NEUT % 52.4 % (42.8-82.8); PLATELET COUNT 252 10^3/uL (134-434); RBC 4.16 M/mm3 (3.60-5.2); RDW 18.2 % (11.6-15.6); WHITE BLOOD COUNT 9.8 K/mm3 (4.0-10.0)
[2023-02-27 08:16] LABS: BLOOD UREA NITROGEN 16.3 mg/dL (7-18); CALCIUM 8.6 mg/dL (8.5-10.1)
[2023-02-27 08:17] LABS: ALBUMIN 2.2 g/dl (3.4-5.0)
[2023-02-27 08:19] LABS: CREATININE 1.3 mg/dL (0.55-1.3)
[2023-02-27 08:21] LABS: BILIRUBIN,TOTAL 0.8 mg/dL (0.2-1); TOT PROT 6.6 g/dl (6.4-8.2)
[2023-02-27] MEDS ORDERED: DEXTROSE 50%-WATER 25 GM/50 ML DISP.SYRIN IVPUSH ONE (08:45)
[2023-02-27] MEDS: AMINO ACIDS/PROTEIN HYDROLYS 30 ML LIQUID.PKT PO SCH ×2 (09:04→18:24)
[2023-02-27] MEDS: ZINC SULFATE 220 MG CAPSULE (FP) PO SCH (11:42)
[2023-02-27] MEDS: MULTIVITAMINS (DAILY MVI) TABLET (FP) PO SCH (11:43)
[2023-02-27] MEDS: metoPROLOL SUCCINATE 25 MG TAB.SR.24H (FP) PO SCH (11:43)
[2023-02-27] MEDS: ASCORBIC ACID 250 MG TABLET (FP) PO SCH ×2 (11:43→22:24)
[2023-02-28] MEDS: PIPERACILLIN/TAZOB 3.375 GM 3.375 GM in DEXTROSE 5%-WATER - 50 ML IVPB SCH ×2 (02:13→08:05)
[2023-02-28] MEDS: ACETAMINOPHEN 325 MG TABLET (FP) PO PRN ×2 (02:30→10:03)
[2023-02-28] MEDS: morphine SULFATE 4 MG/ML VIAL IVPUSH PRN ×3 (04:11→21:22)
[2023-02-28] MEDS: PREGABALIN 75 MG CAPSULE PO SCH ×3 (06:27→21:29)
[2023-02-28] MEDS: INSULIN SLIDING SCALE (NOVOLOG) 1 VIAL SQ SCH ×4 (06:31→21:29)
[2023-02-28 07:45] LABS: HEMOGLOBIN 10.4 GM/dL (10.7-15.3); MCH 24.9 pg (25.7-33.7); MCHC 31.4 g/dl (32.0-36.0); MEAN CELL VOLUME 79.2 fl (80-96); MEAN PLT VOLUME 9.2 fl (7.5-11.1); PLATELET COUNT 266 10^3/uL (134-434); RBC 4.17 M/mm3 (3.60-5.2); RDW 18.1 % (11.6-15.6); WHITE BLOOD COUNT 8.8 K/mm3 (4.0-10.0)
[2023-02-28 08:01] LABS: POTASSIUM 4.4 mmol/L (3.5-5.1)
[2023-02-28 08:03] LABS: CALCIUM 8.4 mg/dL (8.5-10.1)
[2023-02-28 08:04] LABS: BLOOD UREA NITROGEN 20.2 mg/dL (7-18)
[2023-02-28] MEDS: AMINO ACIDS/PROTEIN HYDROLYS 30 ML LIQUID.PKT PO SCH ×2 (08:05→16:42)
[2023-02-28 08:06] LABS: CREATININE 1.4 mg/dL (0.55-1.3)
[2023-02-28] MEDS: metoPROLOL SUCCINATE 25 MG TAB.SR.24H (FP) PO SCH (10:01)
[2023-02-28] MEDS: ASCORBIC ACID 250 MG TABLET (FP) PO SCH ×2 (10:02→21:22)
[2023-02-28] MEDS: MULTIVITAMINS (DAILY MVI) TABLET (FP) PO SCH (10:02)
[2023-02-28] MEDS: ZINC SULFATE 220 MG CAPSULE (FP) PO SCH (10:03)
[2023-02-28] MEDS ORDERED: INSULIN SLIDING SCALE (NOVOLOG) 1 VIAL SQ ONE (11:50)
[2023-02-28] MEDS: SODIUM CHLORIDE 0.45% 1,000 ML IV SCH (11:56)
[2023-02-28] MEDS: VANCOMYCIN/WATER FOR INJ (PEG) 1,000 MG/200 ML BAG IVPB SCH (14:46)
[2023-02-28] MEDS: AMPICILLIN NA/SULBACTAM NA 3 GM in SODIUM CHLORIDE 100 ML IVPB SCH (17:10)
[2023-03-01] MEDS: AMPICILLIN NA/SULBACTAM NA 3 GM in SODIUM CHLORIDE 100 ML IVPB SCH ×3 (02:22→18:08)
[2023-03-01] MEDS: SODIUM CHLORIDE 0.45% 1,000 ML IV SCH ×2 (03:07→13:07)
[2023-03-01] MEDS: PREGABALIN 75 MG CAPSULE PO SCH ×3 (06:23→21:39)
[2023-03-01] MEDS: morphine SULFATE 4 MG/ML VIAL IVPUSH PRN ×3 (06:23→20:06)
[2023-03-01] MEDS: INSULIN SLIDING SCALE (NOVOLOG) 1 VIAL SQ SCH ×4 (06:30→21:39)
[2023-03-01 07:51] LABS: POTASSIUM 3.7 mmol/L (3.5-5.1)
[2023-03-01 08:02] LABS: ALBUMIN 2.2 g/dl (3.4-5.0); CALCIUM 8.4 mg/dL (8.5-10.1)
[2023-03-01 08:04] LABS: BLOOD UREA NITROGEN 16.5 mg/dL (7-18)
[2023-03-01 08:05] LABS: CREATININE 1.1 mg/dL (0.55-1.3)
[2023-03-01 08:07] LABS: BILIRUBIN,TOTAL 0.3 mg/dL (0.2-1); TOT PROT 6.5 g/dl (6.4-8.2)
[2023-03-01] MEDS: MULTIVITAMINS (DAILY MVI) TABLET (FP) PO SCH (10:38)
[2023-03-01] MEDS: ASCORBIC ACID 250 MG TABLET (FP) PO SCH ×2 (10:38→21:39)
[2023-03-01] MEDS: ZINC SULFATE 220 MG CAPSULE (FP) PO SCH (10:38)
[2023-03-01] MEDS: COLLAGENASE CLOSTRIDIUM HIST. 30 GRAMS TUBE TP SCH (10:38)
[2023-03-01] MEDS: metoPROLOL SUCCINATE 25 MG TAB.SR.24H (FP) PO SCH (10:38)
[2023-03-01] MEDS: AMINO ACIDS/PROTEIN HYDROLYS 30 ML LIQUID.PKT PO SCH ×2 (10:38→18:08)
[2023-03-01] MEDS ORDERED: LOPERAMIDE HCL 2 MG CAPSULE PO PRN (12:10)
[2023-03-01] MEDS: VANCOMYCIN/WATER FOR INJ (PEG) 1,000 MG/200 ML BAG IVPB SCH (15:45)
[2023-03-02] MEDS: AMPICILLIN NA/SULBACTAM NA 3 GM in SODIUM CHLORIDE 100 ML IVPB SCH ×3 (02:02→17:20)
[2023-03-02] MEDS: ACETAMINOPHEN 325 MG TABLET (FP) PO PRN ×2 (02:25→17:21)
[2023-03-02] MEDS: morphine SULFATE 4 MG/ML VIAL IVPUSH PRN ×3 (03:01→19:53)
[2023-03-02] MEDS: PREGABALIN 75 MG CAPSULE PO SCH ×3 (05:39→22:49)
[2023-03-02] MEDS: INSULIN SLIDING SCALE (NOVOLOG) 1 VIAL SQ SCH ×4 (06:27→22:49)
[2023-03-02 07:04] LABS: CALCIUM 8.4 mg/dL (8.5-10.1); POTASSIUM 3.9 mmol/L (3.5-5.1)
[2023-03-02 07:05] LABS: BLOOD UREA NITROGEN 21.6 mg/dL (7-18)
[2023-03-02 07:08] LABS: CREATININE 1.1 mg/dL (0.55-1.3)
[2023-03-02] MEDS: AMINO ACIDS/PROTEIN HYDROLYS 30 ML LIQUID.PKT PO SCH ×2 (08:40→17:20)
[2023-03-02] MEDS: MULTIVITAMINS (DAILY MVI) TABLET (FP) PO SCH (10:16)
[2023-03-02] MEDS: metoPROLOL SUCCINATE 25 MG TAB.SR.24H (FP) PO SCH (10:16)
[2023-03-02] MEDS: ZINC SULFATE 220 MG CAPSULE (FP) PO SCH (10:16)
[2023-03-02] MEDS ORDERED: ONDANSETRON 4 MG/2 ML VIAL IVPUSH PRN ×2 (10:17→12:22)
[2023-03-02] MEDS: ASCORBIC ACID 250 MG TABLET (FP) PO SCH ×2 (10:17→22:49)
[2023-03-02] MEDS ORDERED: PROMETHAZINE HCL 25 MG/1 ML VIAL IVPB PRN ×2 (10:17→12:22)
[2023-03-02] MEDS ORDERED: MIDAZOLAM HCL 2 MG/2 ML SINGLE DOSE VIAL ONE (10:29)
[2023-03-02] MEDS ORDERED: PROPOFOL 20 ML ONE (10:29)
[2023-03-02] MEDS ORDERED: LIDOCAINE HCL/PF 2% SDV 5ML VIAL ONE (10:29)
[2023-03-02] MEDS ORDERED: LACTATED RINGERS SOLUTION 1,000 ML IV SCH ×2 (10:30→12:22)
[2023-03-02] MEDS ORDERED: ONDANSETRON 4 MG/2 ML VIAL ONE (10:53)
[2023-03-02] MEDS ORDERED: DEXAMETHASONE SOD PHOSPHATE 4 MG/1 ML VIAL ONE (10:53)
[2023-03-02] MEDS ORDERED: KETOROLAC TROMETHAMINE 30 MG/1 ML VIAL ONE (11:46)
[2023-03-02] MEDS ORDERED: ACETAMINOPHEN INJECTION 100 ML IVPB ONE (12:05)
[2023-03-02] MEDS ORDERED: ACETAMINOPHEN 1000 MG/100 ML BAG IVPB ONE ×2 (12:15→12:22)
[2023-03-02] MEDS ORDERED: ALBUTEROL SO4 0.083% IH SOL 2.5 MG/3 ML VIAL.NEB. NEB PRN (12:22)
[2023-03-02] MEDS: COLLAGENASE CLOSTRIDIUM HIST. 30 GRAMS TUBE TP SCH (13:32)
[2023-03-02] MEDS: VANCOMYCIN/WATER FOR INJ (PEG) 1,000 MG/200 ML BAG IVPB SCH (15:11)
[2023-03-03] MEDS: AMPICILLIN NA/SULBACTAM NA 3 GM in SODIUM CHLORIDE 100 ML IVPB SCH ×3 (01:06→17:03)
[2023-03-03] MEDS: ACETAMINOPHEN 325 MG TABLET (FP) PO PRN ×3 (01:15→14:26)
[2023-03-03] MEDS: morphine SULFATE 4 MG/ML VIAL IVPUSH PRN ×4 (02:09→21:39)
[2023-03-03] MEDS: PREGABALIN 75 MG CAPSULE PO SCH ×3 (06:17→21:39)
[2023-03-03] MEDS: INSULIN SLIDING SCALE (NOVOLOG) 1 VIAL SQ SCH ×4 (06:18→21:38)
[2023-03-03 07:11] LABS: HEMATOCRIT 29.8 % (32.4-45.2); HEMOGLOBIN 9.2 GM/dL (10.7-15.3); MCH 24.4 pg (25.7-33.7); MCHC 30.9 g/dl (32.0-36.0); MEAN CELL VOLUME 78.8 fl (80-96); MEAN PLT VOLUME 9.3 fl (7.5-11.1); PLATELET COUNT 294 10^3/uL (134-434); RBC 3.78 M/mm3 (3.60-5.2); RDW 18.1 % (11.6-15.6)
[2023-03-03] MEDS: AMINO ACIDS/PROTEIN HYDROLYS 30 ML LIQUID.PKT PO SCH ×2 (08:38→17:03)
[2023-03-03] MEDS: ASCORBIC ACID 250 MG TABLET (FP) PO SCH ×2 (09:11→21:38)
[2023-03-03] MEDS: MULTIVITAMINS (DAILY MVI) TABLET (FP) PO SCH (09:11)
[2023-03-03] MEDS: ZINC SULFATE 220 MG CAPSULE (FP) PO SCH (09:11)
[2023-03-03] MEDS: metoPROLOL SUCCINATE 25 MG TAB.SR.24H (FP) PO SCH (09:11)
[2023-03-03] MEDS: LACTOBACILLUS ACIDOPHILUS 1 TABLET PO SCH (09:11)
[2023-03-03] MEDS: COLLAGENASE CLOSTRIDIUM HIST. 30 GRAMS TUBE TP SCH (09:12)
[2023-03-03] MEDS: VANCOMYCIN/WATER FOR INJ (PEG) 1,000 MG/200 ML BAG IVPB SCH (14:26)
[2023-03-04] MEDS: AMPICILLIN NA/SULBACTAM NA 3 GM in SODIUM CHLORIDE 100 ML IVPB SCH ×3 (01:55→17:14)
[2023-03-04] MEDS: morphine SULFATE 4 MG/ML VIAL IVPUSH PRN ×4 (04:01→23:07)
[2023-03-04] MEDS: PREGABALIN 75 MG CAPSULE PO SCH ×3 (05:51→21:30)
[2023-03-04] MEDS: INSULIN SLIDING SCALE (NOVOLOG) 1 VIAL SQ SCH ×4 (06:26→21:30)
[2023-03-04 07:41] LABS: POTASSIUM 3.9 mmol/L (3.5-5.1)
[2023-03-04 07:44] LABS: ALBUMIN 2.2 g/dl (3.4-5.0); BLOOD UREA NITROGEN 21.2 mg/dL (7-18); CALCIUM 8.4 mg/dL (8.5-10.1)
[2023-03-04 07:47] LABS: CREATININE 1.1 mg/dL (0.55-1.3)
[2023-03-04 07:49] LABS: BASO % 0.4 % (0-2.0); BILIRUBIN,TOTAL 0.1 mg/dL (0.2-1); EOS % 8.1 % (0-4.5); HEMATOCRIT 28.8 % (32.4-45.2); HEMOGLOBIN 9.4 GM/dL (10.7-15.3); LYMPH % 33.7 % (8-40); MCH 25.1 pg (25.7-33.7); MCHC 32.5 g/dl (32.0-36.0); MEAN CELL VOLUME 77.3 fl (80-96); MEAN PLT VOLUME 8.1 fl (7.5-11.1); NEUT % 52.8 % (42.8-82.8); PLATELET COUNT 318 10^3/uL (134-434); RBC 3.73 M/mm3 (3.60-5.2); RDW 18.6 % (11.6-15.6); TOT PROT 5.9 g/dl (6.4-8.2); WHITE BLOOD COUNT 11.7 K/mm3 (4.0-10.0)
[2023-03-04] MEDS: ACETAMINOPHEN 325 MG TABLET (FP) PO PRN ×3 (10:28→22:24)
[2023-03-04] MEDS: ZINC SULFATE 220 MG CAPSULE (FP) PO SCH (10:30)
[2023-03-04] MEDS: LACTOBACILLUS ACIDOPHILUS 1 TABLET PO SCH (10:30)
[2023-03-04] MEDS: AMINO ACIDS/PROTEIN HYDROLYS 30 ML LIQUID.PKT PO SCH ×2 (10:30→17:14)
[2023-03-04] MEDS: ASCORBIC ACID 250 MG TABLET (FP) PO SCH ×2 (10:30→21:40)
[2023-03-04] MEDS: metoPROLOL SUCCINATE 25 MG TAB.SR.24H (FP) PO SCH (10:30)
[2023-03-04] MEDS: MULTIVITAMINS (DAILY MVI) TABLET (FP) PO SCH (10:30)
[2023-03-04] MEDS: VANCOMYCIN/WATER FOR INJ (PEG) 1,000 MG/200 ML BAG IVPB SCH (14:52)
[2023-03-04] MEDS: COLLAGENASE CLOSTRIDIUM HIST. 30 GRAMS TUBE TP SCH (14:52)
[2023-03-04] MEDS: LOPERAMIDE HCL 2 MG CAPSULE PO PRN (17:14)
[2023-03-05] MEDS: AMPICILLIN NA/SULBACTAM NA 3 GM in SODIUM CHLORIDE 100 ML IVPB SCH ×3 (02:15→17:16)
[2023-03-05] MEDS: PREGABALIN 75 MG CAPSULE PO SCH ×3 (05:34→21:42)
[2023-03-05] MEDS: INSULIN SLIDING SCALE (NOVOLOG) 1 VIAL SQ SCH ×4 (06:10→21:42)
[2023-03-05] MEDS: morphine SULFATE 4 MG/ML VIAL IVPUSH PRN ×3 (06:15→20:25)
[2023-03-05] MEDS: AMINO ACIDS/PROTEIN HYDROLYS 30 ML LIQUID.PKT PO SCH ×2 (08:44→17:16)
[2023-03-05 09:34] LABS: HEMATOCRIT 31.5 % (32.4-45.2); HEMOGLOBIN 9.8 GM/dL (10.7-15.3); MCH 24.4 pg (25.7-33.7); MCHC 31.1 g/dl (32.0-36.0); MEAN CELL VOLUME 78.2 fl (80-96); MEAN PLT VOLUME 8.6 fl (7.5-11.1); PLATELET COUNT 366 10^3/uL (134-434); RBC 4.02 M/mm3 (3.60-5.2); RDW 18.7 % (11.6-15.6); WHITE BLOOD COUNT 11.5 K/mm3 (4.0-10.0)
[2023-03-05 09:56] LABS: POTASSIUM 5.3 mmol/L (3.5-5.1)
[2023-03-05 09:58] LABS: BLOOD UREA NITROGEN 20.7 mg/dL (7-18)
[2023-03-05 10:01] LABS: CREATININE 1.2 mg/dL (0.55-1.3)
[2023-03-05] MEDS: MULTIVITAMINS (DAILY MVI) TABLET (FP) PO SCH (10:37)
[2023-03-05] MEDS: metoPROLOL SUCCINATE 25 MG TAB.SR.24H (FP) PO SCH (10:37)
[2023-03-05] MEDS: LACTOBACILLUS ACIDOPHILUS 1 TABLET PO SCH (10:37)
[2023-03-05] MEDS: ZINC SULFATE 220 MG CAPSULE (FP) PO SCH (10:37)
[2023-03-05] MEDS: ASCORBIC ACID 250 MG TABLET (FP) PO SCH ×2 (10:37→21:42)
[2023-03-05] MEDS: COLLAGENASE CLOSTRIDIUM HIST. 30 GRAMS TUBE TP SCH (10:38)
[2023-03-05] MEDS ORDERED: SODIUM ZIRCONIUM CYCLOSILICATE (LOKELMA) 5 GM PACKET PO ONE (10:45)
[2023-03-05] MEDS: VANCOMYCIN/WATER FOR INJ (PEG) 1,000 MG/200 ML BAG IVPB SCH (14:59)
[2023-03-05] MEDS: LOPERAMIDE HCL 2 MG CAPSULE PO PRN (22:51)
[2023-03-06 01:36] VITALS: RESP 16
[2023-03-06] MEDS: AMPICILLIN NA/SULBACTAM NA 3 GM in SODIUM CHLORIDE 100 ML IVPB SCH ×2 (03:28→10:26)
[2023-03-06] MEDS: morphine SULFATE 4 MG/ML VIAL IVPUSH PRN ×2 (04:00→10:26)
[2023-03-06] MEDS: PREGABALIN 75 MG CAPSULE PO SCH (05:24)
[2023-03-06] MEDS: INSULIN SLIDING SCALE (NOVOLOG) 1 VIAL SQ SCH ×2 (06:09→12:38)
[2023-03-06 08:03] LABS: BASO % 0.9 % (0-2.0); HEMATOCRIT 31.4 % (32.4-45.2); HEMOGLOBIN 9.8 GM/dL (10.7-15.3); LYMPH % 29.9 % (8-40); MCHC 31.3 g/dl (32.0-36.0); MEAN CELL VOLUME 79.9 fl (80-96); MEAN PLT VOLUME 9.2 fl (7.5-11.1); MONO % 4.3 % (3.8-10.2); NEUT % 56.9 % (42.8-82.8); PLATELET COUNT 364 10^3/uL (134-434); RBC 3.92 M/mm3 (3.60-5.2); RDW 18.7 % (11.6-15.6); WHITE BLOOD COUNT 12.7 K/mm3 (4.0-10.0)
[2023-03-06 08:14] LABS: POTASSIUM 4.2 mmol/L (3.5-5.1)
[2023-03-06 08:31] LABS: CALCIUM 8.6 mg/dL (8.5-10.1)
[2023-03-06 08:32] LABS: ALBUMIN 2.3 g/dl (3.4-5.0); BLOOD UREA NITROGEN 24.4 mg/dL (7-18)
[2023-03-06 08:35] LABS: CREATININE 1.2 mg/dL (0.55-1.3)
[2023-03-06 08:36] LABS: TOT PROT 6.1 g/dl (6.4-8.2)
[2023-03-06 08:37] LABS: BILIRUBIN,TOTAL 0.2 mg/dL (0.2-1)
[2023-03-06 09:21] VITALS: BP 110/69; PULSE 70; TEMP 98.3
[2023-03-06] MEDS: ASCORBIC ACID 250 MG TABLET (FP) PO SCH (10:27)
[2023-03-06] MEDS: MULTIVITAMINS (DAILY MVI) TABLET (FP) PO SCH (10:27)
[2023-03-06] MEDS: AMINO ACIDS/PROTEIN HYDROLYS 30 ML LIQUID.PKT PO SCH (10:27)
[2023-03-06] MEDS: ZINC SULFATE 220 MG CAPSULE (FP) PO SCH (10:27)
[2023-03-06] MEDS: ACETAMINOPHEN 325 MG TABLET (FP) PO PRN (10:27)
[2023-03-06] MEDS: LOPERAMIDE HCL 2 MG CAPSULE PO PRN (10:27)
[2023-03-06] MEDS: LACTOBACILLUS ACIDOPHILUS 1 TABLET PO SCH (10:27)
[2023-03-06] MEDS: metoPROLOL SUCCINATE 25 MG TAB.SR.24H (FP) PO SCH (10:27)
== END 2023-03-06 13:15 | disposition home or self-care (01) | DRG 710 ==
LOC: JER 23:51 → JERBED 02-24 04:46 → J4S 02-24 18:29
PROVIDERS: ADMIT Internal Medicine; ATTEND Family Medicine
PROC: 0J9B30Z Drainage of Perineum Subcutaneous Tissue and Fascia with Drainage Device, Percutaneous Approach (ICD-10-PCS; 2023-02-25)
PROC: 0D9P0ZZ Drainage of Rectum, Open Approach (ICD-10-PCS; principal; 2023-02-25 11:00)
PROC: 0D9P0ZZ Drainage of Rectum, Open Approach (ICD-10-PCS; 2023-03-02)
PROC: 0J9B30Z Drainage of Perineum Subcutaneous Tissue and Fascia with Drainage Device, Percutaneous Approach (ICD-10-PCS; 2023-03-02)
DX: A41.51 Sepsis due to Escherichia coli [E. coli] (principal); E87.0 Hyperosmolality and hypernatremia; I13.10 Hypertensive heart and chronic kidney disease without heart failure, with stage 1 through stage 4 chronic kidney disease, or unspecified chronic kidney disease; I42.9 Cardiomyopathy, unspecified; I48.91 Unspecified atrial fibrillation; E11.42 Type 2 diabetes mellitus with diabetic polyneuropathy; E78.5 Hyperlipidemia, unspecified; I25.10 Atherosclerotic heart disease of native coronary artery without angina pectoris; I73.9 Peripheral vascular disease, unspecified; J44.9 Chronic obstructive pulmonary disease, unspecified; K61.1 Rectal abscess; N18.9 Chronic kidney disease, unspecified; K59.00 Constipation, unspecified; R19.7 Diarrhea, unspecified; I69.351 Hemiplegia and hemiparesis following cerebral infarction affecting right dominant side
CPT/HCPCS: 36415; 71045-TC-FY; 74176-TC; 80048; 80053; 81003; 82550; 82553; 82803; 82962; 83605; 83735; 84100; 84484; 85025; 85027; 85610; 85730; 86850; 86900; 86901; 87040; 87070; 87076; 87077; 87086; 87186; 87205; 87324; 87449; 93005; 93010; 94010; 94760; 97116-GP; 97161-GP; 99285-25; Q9967

== ENCOUNTER 2023-03-17 16:20 | Inpatient (IN) | payer OTHER ==
[2023-03-17 17:06] VITALS: BMI 28.3
[2023-03-17] MEDS ORDERED: SODIUM CHLORIDE 1,000 ML IV ONE (18:07)
[2023-03-17 18:15] LABS: VENOUS BASE EXCESS -4.2 mmol/L (-2-2); VENOUS O2 SATURATION 31.4 % (70-80); VENOUS PCO2 52.4 mmHg (38-52); VENOUS PH 7.261 (7.310-7.410)
[2023-03-17 18:17] LABS: BASO % 1.1 % (0-2.0); EOS % 6.7 % (0-4.5); HEMOGLOBIN 10.2 GM/dL (10.7-15.3); MCH 24.8 pg (25.7-33.7); MCHC 30.9 g/dl (32.0-36.0); MEAN CELL VOLUME 80.4 fl (80-96); MEAN PLT VOLUME 9.9 fl (7.5-11.1); MONO % 6.2 % (3.8-10.2); PLATELET COUNT 251 10^3/uL (134-434); RBC 4.11 M/mm3 (3.60-5.2); WHITE BLOOD COUNT 8.3 K/mm3 (4.0-10.0)
[2023-03-17 18:22] LABS: INR 1.11 (0.83-1.09); PROTHROMBIN TIME (PATIENT) 12.9 SEC (9.7-13.0)
[2023-03-17 18:25] LABS: ACTIVATED PTT 33.7 SECONDS (25.2-36.5)
[2023-03-17 18:38] LABS: POTASSIUM 4.9 mmol/L (3.5-5.1)
[2023-03-17 18:40] LABS: CALCIUM 8.7 mg/dL (8.5-10.1)
[2023-03-17 18:41] LABS: BLOOD UREA NITROGEN 26.6 mg/dL (7-18)
[2023-03-17 18:44] LABS: CREATININE 4.9 mg/dL (0.55-1.3)
[2023-03-17 18:45] LABS: BILIRUBIN,TOTAL 0.4 mg/dL (0.2-1)
[2023-03-17 19:17] LABS: ALBUMIN 3.3 g/dl (3.4-5.0); TOT PROT 8.2 g/dl (6.4-8.2)
[2023-03-17] MEDS ORDERED: LACTATED RINGERS SOLUTION 1000 ML INFUS.BAG IV ONE (21:16)
[2023-03-18] MEDS: SODIUM CHLORIDE 1,000 ML IV SCH (03:00)
[2023-03-18 06:32] LABS: EPI CELLS 29 /uL (0-25.1); HYALINE CASTS 0 /uL (0-3.1); PH,URINE 5.5 (5.0-8.0); URINE APPEARANCE CLEAR; URINE BACTERIA 145 /uL (0-1359); URINE BILIRUBIN NEGATIVE (NEGATIVE); URINE COLOR YELLOW; URINE GLUCOSE (UA) NEGATIVE (NEGATIVE); URINE KETONE NEGATIVE (NEGATIVE); URINE LEUK ESTERASE 1+ (NEGATIVE); URINE NITRITE NEGATIVE (NEGATIVE); URINE PROTEIN TRACE (NEGATIVE); URINE RBC 24 /uL (0-23.9); URINE UROBILINOGEN 0.2 mg/dL (0.2-1.0); URINE WBC 57 /uL (0-25.8)
[2023-03-18 06:35] LABS: METHADONE, UR NEGATIVE (NEGATIVE); URINE BARBITURATES NEGATIVE (NEGATIVE); URINE BENZODIAZEPINES NEGATIVE (NEGATIVE)
[2023-03-18 06:36] LABS: PHENCYCLIDINE,URINE NEGATIVE (NEGATIVE)
[2023-03-18 07:01] LABS: COCAINE, UR NEGATIVE (NEGATIVE); OPIATES, URI POSITIVE (NEGATIVE); URINE AMPHETAMINES NEGATIVE (NEGATIVE)
[2023-03-18] MEDS ORDERED: ALBUTEROL SO4 2.5/IPRATROPIUM 0.5 INH SOL 3 ML VIAL.NEB. NEB PRN (07:15)
[2023-03-18 07:30] LABS: BASO % 0.6 % (0-2.0); EOS % 7.8 % (0-4.5); HEMATOCRIT 28.6 % (32.4-45.2); HEMOGLOBIN 8.8 GM/dL (10.7-15.3); LYMPH % 36.4 % (8-40); MCH 24.8 pg (25.7-33.7); MCHC 30.8 g/dl (32.0-36.0); MEAN CELL VOLUME 80.7 fl (80-96); MEAN PLT VOLUME 10.6 fl (7.5-11.1); MONO % 6.6 % (3.8-10.2); NEUT % 48.6 % (42.8-82.8); PLATELET COUNT 201 10^3/uL (134-434); RBC 3.55 M/mm3 (3.60-5.2); RDW 18.1 % (11.6-15.6); WHITE BLOOD COUNT 6.4 K/mm3 (4.0-10.0)
[2023-03-18] MEDS: INSULIN SLIDING SCALE (NOVOLOG) 1 VIAL SQ SCH ×4 (08:25→21:58)
[2023-03-18] MEDS ORDERED: ASPIRIN 81 MG CHEWABLE TABLETS ONE (09:27)
[2023-03-18] MEDS ORDERED: metoPROLOL SUCCINATE 25 MG TAB.SR.24H (FP) PO ONE (09:28)
[2023-03-18 10:00] LABS: POTASSIUM 4.7 mmol/L (3.5-5.1)
[2023-03-18 10:05] LABS: ALBUMIN 2.6 g/dl (3.4-5.0); CALCIUM 8.2 mg/dL (8.5-10.1)
[2023-03-18 10:08] LABS: CREATININE 4.2 mg/dL (0.55-1.3)
[2023-03-18 10:10] LABS: BILIRUBIN,TOTAL 0.4 mg/dL (0.2-1); TOT PROT 6.6 g/dl (6.4-8.2)
[2023-03-18] MEDS: metoPROLOL SUCCINATE 25 MG TAB.SR.24H (FP) PO SCH (10:30)
[2023-03-18] MEDS: ASPIRIN 81 MG CHEWABLE TABLETS PO SCH (10:30)
[2023-03-18] MEDS ORDERED: cefTRIAXone SODIUM 1 GM VIAL ONE (17:08)
[2023-03-18] MEDS: CEFTRIAXONE 1 GM in DEXTROSE 5%-WATER - 50 ML IVPB SCH ×2 (17:13→19:16)
[2023-03-18] MEDS ORDERED: RIVAROXABAN 15 MG TABLET PO SCH (18:00)
[2023-03-18] MEDS ORDERED: RIVAROXABAN 20 MG TABLET PO SCH (18:00)
[2023-03-18] MEDS ORDERED: LORazepam 1 MG TABLET PO PRN (18:11)
[2023-03-18] MEDS ORDERED: traZODone HCL 50 MG TABLET (FP) ONE ×2 (18:35→22:00)
[2023-03-18] MEDS: traZODone HCL 50 MG TABLET (FP) PO SCH ×2 (18:37→22:03)
[2023-03-18] MEDS ORDERED: LORazepam 0.5 MG TABLET ONE (19:40)
[2023-03-18] MEDS ORDERED: LORazepam 2 MG/ML SDV VIAL IM ONE (20:13)
[2023-03-18] MEDS ORDERED: ATORVASTATIN CA 20 MG TABLET (FP) ONE (22:00)
[2023-03-18] MEDS ORDERED: ATORVASTATIN CA 20 MG TABLET (FP) PO SCH (22:00)
[2023-03-19 07:12] LABS: BASO % 1.5 % (0-2.0); HEMATOCRIT 31.2 % (32.4-45.2); HEMOGLOBIN 9.8 GM/dL (10.7-15.3); MCHC 31.4 g/dl (32.0-36.0); MEAN CELL VOLUME 79.5 fl (80-96); MEAN PLT VOLUME 9.7 fl (7.5-11.1); NEUT % 45.5 % (42.8-82.8); PLATELET COUNT 242 10^3/uL (134-434); RBC 3.93 M/mm3 (3.60-5.2); RDW 18.1 % (11.6-15.6); WHITE BLOOD COUNT 6.7 K/mm3 (4.0-10.0)
[2023-03-19 08:32] LABS: ALBUMIN 2.8 g/dl (3.4-5.0); BILIRUBIN,TOTAL 0.3 mg/dL (0.2-1); BLOOD UREA NITROGEN 17.1 mg/dL (7-18); CALCIUM 8.8 mg/dL (8.5-10.1); CREATININE 2.4 mg/dL (0.55-1.3); POTASSIUM 4.2 mmol/L (3.5-5.1); TOT PROT 7.3 g/dl (6.4-8.2)
[2023-03-19] MEDS: INSULIN SLIDING SCALE (NOVOLOG) 1 VIAL SQ SCH ×4 (08:55→22:49)
[2023-03-19 09:56] VITALS: RESP 18
[2023-03-19] MEDS: SODIUM CHLORIDE 1,000 ML IV SCH (09:56)
[2023-03-19] MEDS ORDERED: ASPIRIN 81 MG CHEWABLE TABLETS ONE (11:02)
[2023-03-19] MEDS ORDERED: metoPROLOL SUCCINATE 25 MG TAB.SR.24H (FP) PO ONE (11:02)
[2023-03-19] MEDS ORDERED: traZODone HCL 50 MG TABLET (FP) ONE (11:03)
[2023-03-19] MEDS ORDERED: CEFTRIAXONE 1 GM/50 ML BAG ONE (11:03)
[2023-03-19] MEDS: ASPIRIN 81 MG CHEWABLE TABLETS PO SCH (11:12)
[2023-03-19] MEDS: metoPROLOL SUCCINATE 25 MG TAB.SR.24H (FP) PO SCH (11:12)
[2023-03-19] MEDS: CEFTRIAXONE 1 GM in DEXTROSE 5%-WATER - 50 ML IVPB SCH (11:12)
[2023-03-19] MEDS: traZODone HCL 50 MG TABLET (FP) PO SCH ×2 (11:12→22:31)
[2023-03-19] MEDS ORDERED: SODIUM CHLORIDE 1,000 ML IV SCH (14:17)
[2023-03-19] MEDS ORDERED: ALBUTEROL SO4 2.5/IPRATROPIUM 0.5 INH SOL 3 ML VIAL.NEB. NEB PRN (14:17)
[2023-03-19] MEDS: RIVAROXABAN 15 MG TABLET PO SCH (17:43)
[2023-03-19] MEDS: SODIUM CHLORIDE 0.45% 1,000 ML IV SCH (18:38)
[2023-03-19] MEDS ORDERED: ACETAMINOPHEN 1000 MG/100 ML BAG IVPB ONE (19:48)
[2023-03-19] MEDS: ATORVASTATIN CA 20 MG TABLET (FP) PO SCH (22:31)
[2023-03-19] MEDS ORDERED: INSULIN (NOVOLOG) ASPART 100 UNITS/ML 10ML VIAL ONE (22:41)
[2023-03-20] MEDS: INSULIN SLIDING SCALE (NOVOLOG) 1 VIAL SQ SCH ×4 (06:50→22:26)
[2023-03-20] MEDS: CEFTRIAXONE 1 GM in DEXTROSE 5%-WATER - 50 ML IVPB SCH (10:46)
[2023-03-20] MEDS: ASPIRIN 81 MG CHEWABLE TABLETS PO SCH (10:47)
[2023-03-20] MEDS: metoPROLOL SUCCINATE 25 MG TAB.SR.24H (FP) PO SCH (10:47)
[2023-03-20] MEDS: traZODone HCL 50 MG TABLET (FP) PO SCH ×2 (10:47→22:20)
[2023-03-20] MEDS ORDERED: oxyCODONE HCL 5 MG TABLET PO PRN (13:35)
[2023-03-20] MEDS: PREGABALIN 75 MG CAPSULE PO SCH ×2 (14:27→22:20)
[2023-03-20] MEDS: SODIUM CHLORIDE 0.45% 1,000 ML IV SCH (17:52)
[2023-03-20] MEDS: COLLAGENASE CLOSTRIDIUM HIST. 30 GRAMS TUBE TP SCH (17:52)
[2023-03-20] MEDS: LORazepam 1 MG TABLET PO PRN (17:57)
[2023-03-20] MEDS: RIVAROXABAN 15 MG TABLET PO SCH (17:57)
[2023-03-20] MEDS: ATORVASTATIN CA 20 MG TABLET (FP) PO SCH (22:20)
[2023-03-21] MEDS: PREGABALIN 75 MG CAPSULE PO SCH ×2 (05:51→14:25)
[2023-03-21] MEDS: INSULIN SLIDING SCALE (NOVOLOG) 1 VIAL SQ SCH ×3 (06:22→17:29)
[2023-03-21] MEDS ORDERED: AMINO ACIDS/PROTEIN HYDROLYS 30 ML LIQUID.PKT PO SCH (08:00)
[2023-03-21] MEDS: ASPIRIN 81 MG CHEWABLE TABLETS PO SCH (09:58)
[2023-03-21] MEDS: LORazepam 1 MG TABLET PO PRN (09:58)
[2023-03-21] MEDS: metoPROLOL SUCCINATE 25 MG TAB.SR.24H (FP) PO SCH (09:58)
[2023-03-21] MEDS: traZODone HCL 50 MG TABLET (FP) PO SCH (09:58)
[2023-03-21] MEDS ORDERED: MULTIVITAMINS (DAILY MVI) TABLET (FP) PO SCH (10:00)
[2023-03-21 10:03] VITALS: TEMP 98.4
[2023-03-21] MEDS: CEFTRIAXONE 1 GM in DEXTROSE 5%-WATER - 50 ML IVPB SCH (10:20)
[2023-03-21 10:41] LABS: ALBUMIN 2.5 g/dl (3.4-5.0); BLOOD UREA NITROGEN 8.4 mg/dL (7-18); CALCIUM 8.1 mg/dL (8.5-10.1)
[2023-03-21 10:44] LABS: CREATININE 1.5 mg/dL (0.55-1.3)
[2023-03-21 10:47] LABS: BILIRUBIN,TOTAL 0.2 mg/dL (0.2-1); TOT PROT 6.7 g/dl (6.4-8.2)
[2023-03-21] MEDS: COLLAGENASE CLOSTRIDIUM HIST. 30 GRAMS TUBE TP SCH (13:50)
[2023-03-21] MEDS ORDERED: POLYETHYLENE GLYCOL (HEALTHYLAX) 3350 17 GM PACKET PO SCH (14:00)
[2023-03-21 14:36] VITALS: BP 139/74; PULSE 80
[2023-03-21] MEDS: RIVAROXABAN 15 MG TABLET PO SCH (17:28)
[2023-03-22 07:08] LABS: BENZODIAZEPINES, UR Negative ng/mL (Cutoff=200); CANNABINOIDS, URINE Negative ng/mL (Cutoff=20); METHADONE, URINE Negative ng/mL (Cutoff=300); OPIATES, UR See Final Results ng/mL (Cutoff=300); PHENCYCLIDINE, URINE Negative ng/mL (Cutoff=25)
== END 2023-03-21 20:54 | disposition home or self-care (01) | DRG 470 ==
LOC: JER 16:20 → JERBED 22:13 → J8W 03-19 11:29
PROVIDERS: ADMIT Family Medicine; ATTEND Family Medicine
DX: I12.9 Hypertensive chronic kidney disease with stage 1 through stage 4 chronic kidney disease, or unspecified chronic kidney disease (principal); N39.0 Urinary tract infection, site not specified; G93.41 Metabolic encephalopathy; N17.9 Acute kidney failure, unspecified; E11.22 Type 2 diabetes mellitus with diabetic chronic kidney disease; E11.40 Type 2 diabetes mellitus with diabetic neuropathy, unspecified; E11.51 Type 2 diabetes mellitus with diabetic peripheral angiopathy without gangrene; I48.91 Unspecified atrial fibrillation; E78.5 Hyperlipidemia, unspecified; I25.10 Atherosclerotic heart disease of native coronary artery without angina pectoris; J44.9 Chronic obstructive pulmonary disease, unspecified; K21.9 Gastro-esophageal reflux disease without esophagitis; Z95.5 Presence of coronary angioplasty implant and graft; I69.353 Hemiplegia and hemiparesis following cerebral infarction affecting right non-dominant side; L89.222 Pressure ulcer of left hip, stage 2; Z89.612 Acquired absence of left leg above knee
CPT/HCPCS: 0241U-QW; 36415; 70450-TC; 71045-TC-FY; 74176-TC; 76775-TC; 80053; 80307; 81003; 82140; 82436; 82550; 82553; 82570; 82803; 82962; 83605; 83874; 84133; 84300; 84484; 85025; 85610; 85730; 86850; 86900; 86901; 87040; 87086; 93005; 93010; 99285-25

== ENCOUNTER 2023-06-29 00:47 | Inpatient (IN) | payer OTHER ==
[2023-06-29] MEDS ORDERED: LIDOCAINE HCL 2% JELLY 10 ML CARTRIDGE PR ONE ×2 (01:55→03:06)
[2023-06-29] MEDS ORDERED: ACETAMINOPHEN 1000 MG/100 ML BAG IVPB ONE (02:07)
[2023-06-29] MEDS ORDERED: ACETAMINOPHEN INJECTION 100 ML IVPB ONE (02:18)
[2023-06-29 02:26] LABS: HEMOGLOBIN 10.7 GM/dL (10.7-15.3); LYMPH % 16.7 % (8-40); MCH 23.5 pg (25.7-33.7); MCHC 31.6 g/dl (32.0-36.0); MEAN CELL VOLUME 74.3 fl (80-96); MEAN PLT VOLUME 8.5 fl (7.5-11.1); MONO % 4.3 % (3.8-10.2); PLATELET COUNT 413 10^3/uL (134-434); RBC 4.57 M/mm3 (3.60-5.2); RDW 18.4 % (11.6-15.6); WHITE BLOOD COUNT 17.7 K/mm3 (4.0-10.0)
[2023-06-29 02:31] LABS: INR 1.31 (0.83-1.09); PROTHROMBIN TIME (PATIENT) 15.1 SEC (9.7-13.0)
[2023-06-29 02:34] LABS: ACTIVATED PTT 35.4 SECONDS (25.2-36.5)
[2023-06-29] MEDS ORDERED: LIDOCAINE HCL 2% JELLY 11 ML TP ONE (02:35)
[2023-06-29 03:15] LABS: CALCIUM 8.7 mg/dL (8.5-10.1)
[2023-06-29 03:16] LABS: ALBUMIN 2.9 g/dl (3.4-5.0); BLOOD UREA NITROGEN 15.4 mg/dL (7-18)
[2023-06-29 03:19] LABS: CREATININE 1.4 mg/dL (0.55-1.3)
[2023-06-29 03:20] LABS: TOT PROT 7.9 g/dl (6.4-8.2)
[2023-06-29 03:21] LABS: BILIRUBIN,TOTAL 0.4 mg/dL (0.2-1)
[2023-06-29] MEDS ORDERED: SODIUM CHLORIDE 0.9% 500 ML INFUS.BAG IV ONE (03:57)
[2023-06-29] MEDS ORDERED: PIPERACILLIN/TAZOB 3.375 GM 3.375 GM in DEXTROSE 5%-WATER - 50 ML IVPB ONE (04:40)
[2023-06-29] MEDS ORDERED: PIPERACILLIN/TAZOB 3.375 GM 3.375 GM/50 ML BAG IVPB ONE (04:43)
[2023-06-29] MEDS ORDERED: ACETAMINOPHEN 1000 MG/100 ML BAG IVPB PRN (09:44)
[2023-06-29] MEDS ORDERED: ALBUTEROL SO4 0.083% IH SOL 2.5 MG/3 ML VIAL.NEB. NEB PRN (09:44)
[2023-06-29] MEDS ORDERED: DOCUSATE SODIUM 100 MG CAPSULE (FP) PO SCH (10:00)
[2023-06-29] MEDS: HYDROmorphone HCl 2 MG/ML VIAL IVPB PRN ×2 (10:32→17:21)
[2023-06-29] MEDS: metoPROLOL SUCCINATE 25 MG TAB.SR.24H (FP) PO SCH (10:45)
[2023-06-29] MEDS: INSULIN (LEVEMIR) 100 UNITS/ML UNITS SQ SCH ×2 (11:07→22:16)
[2023-06-29] MEDS: INSULIN ASPART SLIDING SCALE (NOVOLOG) 1 VIAL SQ SCH ×3 (11:07→22:01)
[2023-06-29] MEDS: NYSTATIN 100,000 UNIT/GM TOPICAL CREAM 15 GM TUBE TP SCH ×2 (12:20→22:14)
[2023-06-29] MEDS: LORazepam 1 MG TABLET PO SCH ×2 (13:36→22:13)
[2023-06-29] MEDS: PREGABALIN 100 MG CAPSULE PO SCH ×2 (13:36→22:00)
[2023-06-29] MEDS: POLYETHYLENE GLYCOL (HEALTHYLAX) 3350 17 GM PACKET PO SCH ×2 (13:37→21:59)
[2023-06-29] MEDS: oxyCODONE HCL 5 MG TABLET PO PRN (14:10)
[2023-06-29] MEDS: PIPERACILLIN/TAZOB 3.375 GM 3.375 GM in DEXTROSE 5%-WATER - 50 ML IVPB SCH ×2 (14:12→18:16)
[2023-06-29] MEDS: BUDESONIDE 0.25 MG/2ML INH SUSP VIAL NEB SCH (20:51)
[2023-06-29] MEDS: traZODone HCL 50 MG TABLET (FP) PO SCH (22:00)
[2023-06-29] MEDS: ATORVASTATIN CA 40 MG TABLET (FP) PO SCH (22:00)
[2023-06-30] MEDS: oxyCODONE HCL 5 MG TABLET PO PRN ×2 (01:31→10:51)
[2023-06-30] MEDS: PIPERACILLIN/TAZOB 3.375 GM 3.375 GM in DEXTROSE 5%-WATER - 50 ML IVPB SCH ×3 (02:03→17:05)
[2023-06-30] MEDS: PREGABALIN 100 MG CAPSULE PO SCH ×3 (06:40→22:45)
[2023-06-30] MEDS: POLYETHYLENE GLYCOL (HEALTHYLAX) 3350 17 GM PACKET PO SCH ×3 (06:41→22:43)
[2023-06-30] MEDS: LORazepam 1 MG TABLET PO SCH ×3 (06:41→22:42)
[2023-06-30] MEDS: INSULIN (LEVEMIR) 100 UNITS/ML UNITS SQ SCH ×2 (08:16→22:43)
[2023-06-30] MEDS: INSULIN ASPART SLIDING SCALE (NOVOLOG) 1 VIAL SQ SCH ×4 (08:18→22:53)
[2023-06-30 08:36] LABS: BASO % 0.8 % (0-2.0); EOS % 3.7 % (0-4.5); HEMATOCRIT 31.9 % (32.4-45.2); HEMOGLOBIN 9.7 GM/dL (10.7-15.3); MCH 23.3 pg (25.7-33.7); MCHC 30.3 g/dl (32.0-36.0); MEAN CELL VOLUME 76.9 fl (80-96); MEAN PLT VOLUME 8.9 fl (7.5-11.1); MONO % 5.7 % (3.8-10.2); NEUT % 67.8 % (42.8-82.8); PLATELET COUNT 353 10^3/uL (134-434); RBC 4.15 M/mm3 (3.60-5.2); RDW 18.2 % (11.6-15.6); WHITE BLOOD COUNT 14.4 K/mm3 (4.0-10.0)
[2023-06-30] MEDS: BUDESONIDE 0.25 MG/2ML INH SUSP VIAL NEB SCH ×2 (08:50→20:17)
[2023-06-30 09:08] LABS: POTASSIUM 4.1 mmol/L (3.5-5.1)
[2023-06-30 09:20] LABS: CALCIUM 8.7 mg/dL (8.5-10.1)
[2023-06-30 09:21] LABS: ALBUMIN 2.6 g/dl (3.4-5.0); BLOOD UREA NITROGEN 14.2 mg/dL (7-18)
[2023-06-30 09:24] LABS: CREATININE 1.4 mg/dL (0.55-1.3)
[2023-06-30 09:25] LABS: BILIRUBIN,TOTAL 0.4 mg/dL (0.2-1)
[2023-06-30 09:26] LABS: TOT PROT 7.3 g/dl (6.4-8.2)
[2023-06-30] MEDS: NYSTATIN 100,000 UNIT/GM TOPICAL CREAM 15 GM TUBE TP SCH ×2 (11:00→22:45)
[2023-06-30] MEDS: metoPROLOL SUCCINATE 25 MG TAB.SR.24H (FP) PO SCH (15:32)
[2023-06-30] MEDS: HYDROmorphone HCl 2 MG/ML VIAL IVPB PRN ×2 (15:52→23:52)
[2023-06-30] MEDS: traZODone HCL 50 MG TABLET (FP) PO SCH (22:43)
[2023-06-30] MEDS: ATORVASTATIN CA 40 MG TABLET (FP) PO SCH (22:44)
[2023-07-01] MEDS: PIPERACILLIN/TAZOB 3.375 GM 3.375 GM in DEXTROSE 5%-WATER - 50 ML IVPB SCH ×3 (02:23→17:34)
[2023-07-01] MEDS: LORazepam 1 MG TABLET PO SCH ×3 (06:17→22:26)
[2023-07-01] MEDS: PREGABALIN 100 MG CAPSULE PO SCH ×3 (06:17→22:26)
[2023-07-01] MEDS: INSULIN ASPART SLIDING SCALE (NOVOLOG) 1 VIAL SQ SCH ×4 (06:30→22:41)
[2023-07-01] MEDS: INSULIN (LEVEMIR) 100 UNITS/ML UNITS SQ SCH ×2 (06:30→22:28)
[2023-07-01] MEDS: POLYETHYLENE GLYCOL (HEALTHYLAX) 3350 17 GM PACKET PO SCH ×3 (06:32→22:28)
[2023-07-01] MEDS: HYDROmorphone HCl 2 MG/ML VIAL IVPB PRN ×2 (08:10→15:21)
[2023-07-01] MEDS: BUDESONIDE 0.25 MG/2ML INH SUSP VIAL NEB SCH ×2 (08:45→20:36)
[2023-07-01] MEDS: AMINO ACIDS/PROTEIN HYDROLYS 30 ML LIQUID.PKT PO SCH ×2 (09:08→17:34)
[2023-07-01] MEDS: metoPROLOL SUCCINATE 25 MG TAB.SR.24H (FP) PO SCH (09:09)
[2023-07-01] MEDS: MULTIVITAMINS (DAILY MVI) TABLET (FP) PO SCH (09:09)
[2023-07-01] MEDS: NYSTATIN 100,000 UNIT/GM TOPICAL CREAM 15 GM TUBE TP SCH ×2 (09:11→22:28)
[2023-07-01 09:53] LABS: BASO % 0.8 % (0-2.0); EOS % 8.5 % (0-4.5); HEMATOCRIT 30.7 % (32.4-45.2); HEMOGLOBIN 9.8 GM/dL (10.7-15.3); LYMPH % 30.2 % (8-40); MCH 24.2 pg (25.7-33.7); MCHC 31.9 g/dl (32.0-36.0); MEAN CELL VOLUME 75.9 fl (80-96); MONO % 5.6 % (3.8-10.2); NEUT % 54.9 % (42.8-82.8); PLATELET COUNT 325 10^3/uL (134-434); RBC 4.04 M/mm3 (3.60-5.2); RDW 18.4 % (11.6-15.6); WHITE BLOOD COUNT 10.7 K/mm3 (4.0-10.0)
[2023-07-01 10:14] LABS: POTASSIUM 4.6 mmol/L (3.5-5.1)
[2023-07-01 10:22] LABS: CALCIUM 8.6 mg/dL (8.5-10.1)
[2023-07-01 10:23] LABS: ALBUMIN 2.6 g/dl (3.4-5.0); BLOOD UREA NITROGEN 18.7 mg/dL (7-18)
[2023-07-01 10:26] LABS: CREATININE 1.5 mg/dL (0.55-1.3)
[2023-07-01 10:27] LABS: TOT PROT 7.2 g/dl (6.4-8.2)
[2023-07-01 10:28] LABS: BILIRUBIN,TOTAL 0.3 mg/dL (0.2-1)
[2023-07-01] MEDS: HYDROCORTISONE 2.5% TOPICAL CREAM 30 GM TUBE RC SCH ×2 (13:30→22:29)
[2023-07-01] MEDS: COLLAGENASE CLOSTRIDIUM HIST. 30 GRAMS TUBE TP SCH (15:20)
[2023-07-01] MEDS: ATORVASTATIN CA 40 MG TABLET (FP) PO SCH (22:26)
[2023-07-01] MEDS: traZODone HCL 50 MG TABLET (FP) PO SCH (22:26)
[2023-07-01] MEDS: oxyCODONE HCL 5 MG TABLET PO PRN (22:40)
[2023-07-02] MEDS: PIPERACILLIN/TAZOB 3.375 GM 3.375 GM in DEXTROSE 5%-WATER - 50 ML IVPB SCH ×3 (04:41→18:04)
[2023-07-02] MEDS: LORazepam 1 MG TABLET PO SCH ×3 (06:45→23:43)
[2023-07-02] MEDS: PREGABALIN 100 MG CAPSULE PO SCH ×3 (06:45→23:45)
[2023-07-02] MEDS: POLYETHYLENE GLYCOL (HEALTHYLAX) 3350 17 GM PACKET PO SCH ×3 (06:46→23:43)
[2023-07-02] MEDS: INSULIN (LEVEMIR) 100 UNITS/ML UNITS SQ SCH ×2 (06:46→23:51)
[2023-07-02] MEDS: INSULIN ASPART SLIDING SCALE (NOVOLOG) 1 VIAL SQ SCH ×4 (06:53→23:47)
[2023-07-02] MEDS: BUDESONIDE 0.25 MG/2ML INH SUSP VIAL NEB SCH ×2 (08:40→20:55)
[2023-07-02] MEDS: HYDROmorphone HCl 2 MG/ML VIAL IVPB PRN ×3 (09:55→23:40)
[2023-07-02] MEDS: AMINO ACIDS/PROTEIN HYDROLYS 30 ML LIQUID.PKT PO SCH ×2 (09:56→18:04)
[2023-07-02] MEDS: COLLAGENASE CLOSTRIDIUM HIST. 30 GRAMS TUBE TP SCH (09:56)
[2023-07-02] MEDS: metoPROLOL SUCCINATE 25 MG TAB.SR.24H (FP) PO SCH ×2 (09:56→10:06)
[2023-07-02] MEDS: MULTIVITAMINS (DAILY MVI) TABLET (FP) PO SCH (09:56)
[2023-07-02] MEDS: HYDROCORTISONE 2.5% TOPICAL CREAM 30 GM TUBE RC SCH ×2 (09:57→23:46)
[2023-07-02] MEDS: NYSTATIN 100,000 UNIT/GM TOPICAL CREAM 15 GM TUBE TP SCH ×2 (09:57→23:50)
[2023-07-02] MEDS: oxyCODONE HCL 5 MG TABLET PO PRN (15:36)
[2023-07-02] MEDS ORDERED: HYDROmorphone HCl 2 MG/ML VIAL IVPB ONE (17:10)
[2023-07-02] MEDS: traZODone HCL 50 MG TABLET (FP) PO SCH (23:44)
[2023-07-02] MEDS: ATORVASTATIN CA 40 MG TABLET (FP) PO SCH (23:45)
[2023-07-03] MEDS: PIPERACILLIN/TAZOB 3.375 GM 3.375 GM in DEXTROSE 5%-WATER - 50 ML IVPB SCH ×3 (02:46→17:19)
[2023-07-03] MEDS: LORazepam 1 MG TABLET PO SCH ×3 (06:38→21:41)
[2023-07-03] MEDS: POLYETHYLENE GLYCOL (HEALTHYLAX) 3350 17 GM PACKET PO SCH ×3 (06:39→21:40)
[2023-07-03] MEDS: PREGABALIN 100 MG CAPSULE PO SCH ×3 (06:40→21:41)
[2023-07-03] MEDS: INSULIN ASPART SLIDING SCALE (NOVOLOG) 1 VIAL SQ SCH ×4 (06:45→21:44)
[2023-07-03] MEDS: INSULIN (LEVEMIR) 100 UNITS/ML UNITS SQ SCH ×2 (06:46→21:41)
[2023-07-03] MEDS: BUDESONIDE 0.25 MG/2ML INH SUSP VIAL NEB SCH ×2 (10:32→20:39)
[2023-07-03] MEDS: AMINO ACIDS/PROTEIN HYDROLYS 30 ML LIQUID.PKT PO SCH ×2 (10:48→17:19)
[2023-07-03] MEDS: MULTIVITAMINS (DAILY MVI) TABLET (FP) PO SCH (10:49)
[2023-07-03] MEDS: metoPROLOL SUCCINATE 25 MG TAB.SR.24H (FP) PO SCH ×2 (10:49→11:33)
[2023-07-03] MEDS: HYDROmorphone HCl 2 MG/ML VIAL IVPB PRN ×2 (10:58→18:03)
[2023-07-03] MEDS: COLLAGENASE CLOSTRIDIUM HIST. 30 GRAMS TUBE TP SCH ×4 (11:34→12:00)
[2023-07-03] MEDS: HYDROCORTISONE 2.5% TOPICAL CREAM 30 GM TUBE RC SCH ×2 (12:00→21:52)
[2023-07-03] MEDS: NYSTATIN 100,000 UNIT/GM TOPICAL CREAM 15 GM TUBE TP SCH ×2 (12:00→21:52)
[2023-07-03] MEDS: traZODone HCL 50 MG TABLET (FP) PO SCH (21:41)
[2023-07-03] MEDS: ATORVASTATIN CA 40 MG TABLET (FP) PO SCH (21:41)
[2023-07-04] MEDS: HYDROmorphone HCl 2 MG/ML VIAL IVPB PRN (01:17)
[2023-07-04] MEDS: PIPERACILLIN/TAZOB 3.375 GM 3.375 GM in DEXTROSE 5%-WATER - 50 ML IVPB SCH ×3 (01:24→17:59)
[2023-07-04] MEDS: PREGABALIN 100 MG CAPSULE PO SCH ×3 (05:53→21:46)
[2023-07-04] MEDS: LORazepam 1 MG TABLET PO SCH ×3 (05:53→21:46)
[2023-07-04] MEDS: POLYETHYLENE GLYCOL (HEALTHYLAX) 3350 17 GM PACKET PO SCH ×3 (05:53→21:47)
[2023-07-04] MEDS: INSULIN (LEVEMIR) 100 UNITS/ML UNITS SQ SCH ×2 (06:06→22:11)
[2023-07-04] MEDS: INSULIN ASPART SLIDING SCALE (NOVOLOG) 1 VIAL SQ SCH ×3 (06:07→22:10)
[2023-07-04] MEDS: BUDESONIDE 0.25 MG/2ML INH SUSP VIAL NEB SCH ×2 (07:43→21:00)
[2023-07-04] MEDS ORDERED: LIDOCAINE HCL/PF 2% SDV 5ML VIAL ONE (09:31)
[2023-07-04] MEDS ORDERED: PROPOFOL 20 ML ONE (09:31)
[2023-07-04] MEDS ORDERED: SUCCINYLCHOLINE CHLORIDE 200 MG/10 ML SYRINGE ONE (09:34)
[2023-07-04] MEDS ORDERED: ROCURONIUM BROMIDE 50 MG/5 ML SYRINGE ONE (09:34)
[2023-07-04] MEDS: AMINO ACIDS/PROTEIN HYDROLYS 30 ML LIQUID.PKT PO SCH ×2 (10:23→17:59)
[2023-07-04] MEDS: NYSTATIN 100,000 UNIT/GM TOPICAL CREAM 15 GM TUBE TP SCH ×2 (10:25→21:47)
[2023-07-04] MEDS: HYDROCORTISONE 2.5% TOPICAL CREAM 30 GM TUBE RC SCH (10:25)
[2023-07-04] MEDS: MULTIVITAMINS (DAILY MVI) TABLET (FP) PO SCH (10:26)
[2023-07-04] MEDS: metoPROLOL SUCCINATE 25 MG TAB.SR.24H (FP) PO SCH (10:26)
[2023-07-04] MEDS: COLLAGENASE CLOSTRIDIUM HIST. 30 GRAMS TUBE TP SCH (10:26)
[2023-07-04 11:03] LABS: BASO % 0.9 % (0-2.0); EOS % 10.6 % (0-4.5); HEMATOCRIT 30.8 % (32.4-45.2); HEMOGLOBIN 9.6 GM/dL (10.7-15.3); LYMPH % 26.3 % (8-40); MCHC 31.2 g/dl (32.0-36.0); MEAN CELL VOLUME 76.9 fl (80-96); MONO % 7.2 % (3.8-10.2); PLATELET COUNT 320 10^3/uL (134-434); RBC 4.01 M/mm3 (3.60-5.2); RDW 17.9 % (11.6-15.6); WHITE BLOOD COUNT 11.2 K/mm3 (4.0-10.0)
[2023-07-04] MEDS ORDERED: PIPERACILLIN/TAZOBACTAM 3.375 GM VIAL IVPB ONE ×2 (11:11→11:45)
[2023-07-04] MEDS ORDERED: ONDANSETRON 4 MG/2 ML VIAL IVPUSH PRN ×2 (11:12→13:05)
[2023-07-04] MEDS ORDERED: PROMETHAZINE HCL 25 MG/1 ML VIAL IVPB PRN ×2 (11:12→13:05)
[2023-07-04] MEDS ORDERED: LACTATED RINGERS SOLUTION 1,000 ML IV SCH (11:15)
[2023-07-04] MEDS ORDERED: MIDAZOLAM HCL 2 MG/2 ML SINGLE DOSE VIAL ONE (11:17)
[2023-07-04] MEDS ORDERED: FENTANYL CITRATE/PF 50 MCG/ML VIAL ONE ×3 (11:17→13:11)
[2023-07-04] MEDS ORDERED: SEVOFLURANE 250 ML BTL ONE (11:18)
[2023-07-04 11:33] LABS: POTASSIUM 4.4 mmol/L (3.5-5.1)
[2023-07-04 11:36] LABS: CALCIUM 8.6 mg/dL (8.5-10.1)
[2023-07-04 11:38] LABS: ALBUMIN 2.5 g/dl (3.4-5.0); BLOOD UREA NITROGEN 31.2 mg/dL (7-18)
[2023-07-04 11:41] LABS: CREATININE 1.4 mg/dL (0.55-1.3)
[2023-07-04 11:42] LABS: BILIRUBIN,TOTAL 0.4 mg/dL (0.2-1); TOT PROT 6.8 g/dl (6.4-8.2)
[2023-07-04] MEDS ORDERED: ONDANSETRON 4 MG/2 ML VIAL ONE ×2 (11:55→12:42)
[2023-07-04] MEDS ORDERED: BUPIVACAINE HCL/PF 0.5% (5MG/ML) 10 ML VIAL NR ONE (12:10)
[2023-07-04] MEDS ORDERED: SUGAMMADEX SODIUM 200 MG/2 ML VIAL ONE (12:21)
[2023-07-04] MEDS ORDERED: oxyCODONE HCL 5 MG TABLET PO PRN (13:05)
[2023-07-04] MEDS: LACTATED RINGERS SOLUTION 1,000 ML IV SCH (13:05)
[2023-07-04] MEDS ORDERED: ALBUTEROL SO4 0.083% IH SOL 2.5 MG/3 ML VIAL.NEB. NEB PRN (13:05)
[2023-07-04] MEDS ORDERED: ACETAMINOPHEN INJECTION 100 ML IVPB ONE (13:11)
[2023-07-04] MEDS: ACETAMINOPHEN 500 MG TABLET (FP) PO PRN (13:15)
[2023-07-04] MEDS: DOCUSATE SODIUM 100 MG CAPSULE (FP) PO SCH ×2 (14:35→21:46)
[2023-07-04 15:19] VITALS: BMI 23.6
[2023-07-04] MEDS: oxyCODONE HCL 5 MG TABLET PO PRN (17:57)
[2023-07-04] MEDS: ATORVASTATIN CA 40 MG TABLET (FP) PO SCH (21:46)
[2023-07-04] MEDS: traZODone HCL 50 MG TABLET (FP) PO SCH (21:46)
[2023-07-05] MEDS: PIPERACILLIN/TAZOB 3.375 GM 3.375 GM in DEXTROSE 5%-WATER - 50 ML IVPB SCH ×3 (03:31→17:45)
[2023-07-05] MEDS: ACETAMINOPHEN 500 MG TABLET (FP) PO PRN (03:31)
[2023-07-05] MEDS: LORazepam 1 MG TABLET PO SCH ×3 (06:32→22:56)
[2023-07-05] MEDS: DOCUSATE SODIUM 100 MG CAPSULE (FP) PO SCH ×3 (06:32→22:56)
[2023-07-05] MEDS: LACTATED RINGERS SOLUTION 1,000 ML IV SCH (06:36)
[2023-07-05] MEDS: POLYETHYLENE GLYCOL (HEALTHYLAX) 3350 17 GM PACKET PO SCH ×3 (06:48→22:57)
[2023-07-05] MEDS: PREGABALIN 100 MG CAPSULE PO SCH ×3 (06:48→22:56)
[2023-07-05] MEDS: INSULIN ASPART SLIDING SCALE (NOVOLOG) 1 VIAL SQ SCH ×4 (06:56→22:57)
[2023-07-05] MEDS: INSULIN (LEVEMIR) 100 UNITS/ML UNITS SQ SCH ×2 (07:01→22:55)
[2023-07-05] MEDS: BUDESONIDE 0.25 MG/2ML INH SUSP VIAL NEB SCH ×2 (08:10→20:30)
[2023-07-05] MEDS: AMINO ACIDS/PROTEIN HYDROLYS 30 ML LIQUID.PKT PO SCH ×2 (09:41→17:45)
[2023-07-05] MEDS: MULTIVITAMINS (DAILY MVI) TABLET (FP) PO SCH (09:41)
[2023-07-05] MEDS: metoPROLOL SUCCINATE 25 MG TAB.SR.24H (FP) PO SCH (09:41)
[2023-07-05] MEDS: COLLAGENASE CLOSTRIDIUM HIST. 30 GRAMS TUBE TP SCH (09:42)
[2023-07-05] MEDS: NYSTATIN 100,000 UNIT/GM TOPICAL CREAM 15 GM TUBE TP SCH ×2 (09:42→22:59)
[2023-07-05 09:49] LABS: POTASSIUM 4.6 mmol/L (3.5-5.1)
[2023-07-05 09:54] LABS: ALBUMIN 2.3 g/dl (3.4-5.0); BLOOD UREA NITROGEN 24.7 mg/dL (7-18)
[2023-07-05 09:55] LABS: CALCIUM 8.4 mg/dL (8.5-10.1)
[2023-07-05 09:57] LABS: CREATININE 1.3 mg/dL (0.55-1.3)
[2023-07-05 09:58] LABS: BILIRUBIN,TOTAL 0.5 mg/dL (0.2-1); TOT PROT 6.6 g/dl (6.4-8.2)
[2023-07-05 10:17] LABS: BASO % 0.8 % (0-2.0); EOS % 7.2 % (0-4.5); HEMATOCRIT 29.5 % (32.4-45.2); HEMOGLOBIN 9.1 GM/dL (10.7-15.3); LYMPH % 23.4 % (8-40); MCHC 30.7 g/dl (32.0-36.0); MEAN PLT VOLUME 8.7 fl (7.5-11.1); MONO % 5.4 % (3.8-10.2); NEUT % 63.2 % (42.8-82.8); PLATELET COUNT 324 10^3/uL (134-434); RBC 3.78 M/mm3 (3.60-5.2); RDW 18.2 % (11.6-15.6); WHITE BLOOD COUNT 12.9 K/mm3 (4.0-10.0)
[2023-07-05] MEDS: ATORVASTATIN CA 40 MG TABLET (FP) PO SCH (22:56)
[2023-07-05] MEDS: traZODone HCL 50 MG TABLET (FP) PO SCH (22:56)
[2023-07-06] MEDS: PIPERACILLIN/TAZOB 3.375 GM 3.375 GM in DEXTROSE 5%-WATER - 50 ML IVPB SCH ×2 (02:18→09:56)
[2023-07-06] MEDS: LORazepam 1 MG TABLET PO SCH ×2 (06:54→13:40)
[2023-07-06] MEDS: DOCUSATE SODIUM 100 MG CAPSULE (FP) PO SCH ×2 (06:54→13:40)
[2023-07-06] MEDS: INSULIN (LEVEMIR) 100 UNITS/ML UNITS SQ SCH (06:55)
[2023-07-06] MEDS: PREGABALIN 100 MG CAPSULE PO SCH ×2 (06:56→13:40)
[2023-07-06] MEDS: INSULIN ASPART SLIDING SCALE (NOVOLOG) 1 VIAL SQ SCH ×3 (06:57→16:46)
[2023-07-06] MEDS: POLYETHYLENE GLYCOL (HEALTHYLAX) 3350 17 GM PACKET PO SCH ×2 (06:57→13:43)
[2023-07-06] MEDS: BUDESONIDE 0.25 MG/2ML INH SUSP VIAL NEB SCH (07:45)
[2023-07-06] MEDS: metoPROLOL SUCCINATE 25 MG TAB.SR.24H (FP) PO SCH (09:57)
[2023-07-06] MEDS: AMINO ACIDS/PROTEIN HYDROLYS 30 ML LIQUID.PKT PO SCH ×2 (09:57→16:47)
[2023-07-06] MEDS: MULTIVITAMINS (DAILY MVI) TABLET (FP) PO SCH (09:57)
[2023-07-06] MEDS: COLLAGENASE CLOSTRIDIUM HIST. 30 GRAMS TUBE TP SCH (11:12)
[2023-07-06] MEDS: NYSTATIN 100,000 UNIT/GM TOPICAL CREAM 15 GM TUBE TP SCH (11:13)
[2023-07-06 12:20] VITALS: RESP 16
[2023-07-06] MEDS: oxyCODONE HCL 5 MG TABLET PO PRN (13:40)
[2023-07-06 14:47] VITALS: PULSE 80
[2023-07-06 16:10] VITALS: BP 118/76; TEMP 98.6
== END 2023-07-06 16:45 | disposition home health service (06) | DRG 226 ==
LOC: JER 00:47 → JERBED 04:52 → J5S 06:28 → OBSVTOIN 07-02 11:05
PROVIDERS: ADMIT Family Medicine; ATTEND Family Medicine
PROC: 06BY0ZC Excision of Hemorrhoidal Plexus, Open Approach (ICD-10-PCS; principal; 2023-07-04 10:00)
DX: K64.8 Other hemorrhoids (principal); E11.22 Type 2 diabetes mellitus with diabetic chronic kidney disease; E11.40 Type 2 diabetes mellitus with diabetic neuropathy, unspecified; L89.223 Pressure ulcer of left hip, stage 3; E11.51 Type 2 diabetes mellitus with diabetic peripheral angiopathy without gangrene; F11.20 Opioid dependence, uncomplicated; E78.5 Hyperlipidemia, unspecified; I12.9 Hypertensive chronic kidney disease with stage 1 through stage 4 chronic kidney disease, or unspecified chronic kidney disease; K52.9 Noninfective gastroenteritis and colitis, unspecified; K56.41 Fecal impaction; N18.9 Chronic kidney disease, unspecified
CPT/HCPCS: 36415; 74177-TC; 80053; 82962; 85025; 85610; 85730; 86850; 86900; 86901; 87040; 87081; 88304-TC; 88341-TC; 93005; 93010; 94640; 94760; 97116-GP; 97162-GP; 99285-25; G0378

== ENCOUNTER 2023-09-19 07:10 | Inpatient (IN) | payer OTHER ==
[2023-09-19] MEDS ORDERED: morphine CARPU-JECT 4 MG/1 ML DISP.SYRIN IVPUSH ONE ×2 (11:17→17:59)
[2023-09-19] MEDS ORDERED: morphine SULFATE 4 MG/ML VIAL ONE ×2 (11:33→18:11)
[2023-09-19 12:31] LABS: CHLORIDE 109 mmol/L (98-107); SODIUM 133 mmol/L (136-145)
[2023-09-19 12:33] LABS: BLOOD UREA NITROGEN 11.2 mg/dL (7-18); CALCIUM 8.5 mg/dL (8.5-10.1); CO2 25 mmol/L (21-32)
[2023-09-19 12:34] LABS: ALBUMIN 2.4 g/dl (3.4-5.0)
[2023-09-19 12:36] LABS: CREATININE 1.3 mg/dL (0.55-1.3); GLUCOSE,RANDOM 145 mg/dL (74-106)
[2023-09-19 12:38] LABS: BILIRUBIN,TOTAL 0.6 mg/dL (0.2-1); TOT PROT 8.4 g/dl (6.4-8.2)
[2023-09-19 12:39] LABS: ALK PHOS 195 U/L (45-117); BASO % 0.5 % (0-2.0); EOS % 0.5 % (0-4.5); HEMATOCRIT 34.5 % (32.4-45.2); HEMOGLOBIN 10.7 GM/dL (10.7-15.3); LYMPH % 13.5 % (8-40); MCHC 30.9 g/dl (32.0-36.0); MEAN CELL VOLUME 77.8 fl (80-96); MEAN PLT VOLUME 9.1 fl (7.5-11.1); MONO % 4.9 % (3.8-10.2); NEUT % 80.6 % (42.8-82.8); PLATELET COUNT 361 10^3/uL (134-434); RBC 4.43 M/mm3 (3.60-5.2); RDW 19.3 % (11.6-15.6); WHITE BLOOD COUNT 18.8 K/mm3 (4.0-10.0)
[2023-09-19 12:41] LABS: ANION GAP -1 mmol/L (4-13); POTASSIUM 9.4 mmol/L (3.5-5.1); SGOT/AST 40 U/L (15-37); SGPT/ALT 9 U/L (13-61)
[2023-09-19] MEDS ORDERED: SODIUM CHLORIDE 0.9% 500 ML INFUS.BAG IV ONE (13:44)
[2023-09-19] MEDS ORDERED: PIPERACILLIN/TAZOB 4.5 GM 4.5 GM in DEXTROSE 5%-WATER 100 ML IVPB ONE (16:46)
[2023-09-19] MEDS ORDERED: PIPERACILLIN/TAZOB 4.5 GM 4.5 GM/100 ML BAG IVPB ONE (18:11)
[2023-09-19 18:54] LABS: ACTIVATED PTT 33.2 SECONDS (25.2-36.5); INR 1.24 (0.83-1.09); PROTHROMBIN TIME (PATIENT) 14.4 SEC (9.7-13.0)
[2023-09-20] MEDS ORDERED: DEXTROSE 5%-0.45% SALINE 1,000 ML IV SCH (00:01)
[2023-09-20] MEDS ORDERED: PIPERACILLIN/TAZOB 4.5 GM 4.5 GM/100 ML BAG IVPB ONE (03:11)
[2023-09-20] MEDS: PIPERACILLIN/TAZOB 4.5 GM 4.5 GM in DEXTROSE 5%-WATER 100 ML IVPB SCH ×5 (03:21→21:27)
[2023-09-20] MEDS ORDERED: morphine SULFATE 4 MG/ML VIAL IVPUSH PRN (03:53)
[2023-09-20] MEDS ORDERED: morphine SULFATE 4 MG/ML VIAL ONE (05:03)
[2023-09-20] MEDS ORDERED: ALBUTEROL SO4 2.5/IPRATROPIUM 0.5 INH SOL 3 ML VIAL.NEB. NEB PRN ×2 (05:41→12:47)
[2023-09-20 06:57] LABS: BASO % 0.4 % (0-2.0); EOS % 4.5 % (0-4.5); HEMATOCRIT 28.2 % (32.4-45.2); LYMPH % 21.5 % (8-40); MCH 24.3 pg (25.7-33.7); MCHC 31.9 g/dl (32.0-36.0); MEAN CELL VOLUME 76.1 fl (80-96); MEAN PLT VOLUME 8.9 fl (7.5-11.1); MONO % 5.9 % (3.8-10.2); NEUT % 67.7 % (42.8-82.8); PLATELET COUNT 298 10^3/uL (134-434); RBC 3.71 M/mm3 (3.60-5.2); WHITE BLOOD COUNT 10.9 K/mm3 (4.0-10.0)
[2023-09-20 07:06] LABS: BLOOD UREA NITROGEN 10.2 mg/dL (7-18); POTASSIUM 4.6 mmol/L (3.5-5.1)
[2023-09-20 07:08] LABS: CALCIUM 8.2 mg/dL (8.5-10.1)
[2023-09-20 07:13] LABS: CREATININE 1.1 mg/dL (0.55-1.3)
[2023-09-20] MEDS ORDERED: LIDOCAINE HCL/PF 2% SDV 5ML VIAL ONE (08:28)
[2023-09-20] MEDS ORDERED: PROPOFOL 40 ML ONE (08:28)
[2023-09-20] MEDS ORDERED: MIDAZOLAM HCL 2 MG/2 ML SINGLE DOSE VIAL ONE (08:29)
[2023-09-20] MEDS ORDERED: LIDOCAINE 1%/EPI 1:100000 (20 ML MULTI DOSE VIAL) ONE (08:36)
[2023-09-20] MEDS ORDERED: KETOROLAC TROMETHAMINE 30 MG/1 ML VIAL ONE (09:32)
[2023-09-20] MEDS ORDERED: ONDANSETRON 4 MG/2 ML VIAL ONE (09:32)
[2023-09-20] MEDS ORDERED: DEXAMETHASONE SOD PHOSPHATE 4 MG/1 ML VIAL ONE (09:32)
[2023-09-20] MEDS ORDERED: HYDROGEN PEROXIDE 473 ML PO ONE (09:40)
[2023-09-20] MEDS ORDERED: METHYLENE BLUE 1% 10 MG/1 ML VIAL NR ONE (09:47)
[2023-09-20] MEDS ORDERED: metoPROLOL SUCCINATE 25 MG TAB.SR.24H (FP) PO SCH (10:00)
[2023-09-20] MEDS ORDERED: MULTIVITAMINS (DAILY MVI) TABLET (FP) PO SCH (10:00)
[2023-09-20] MEDS ORDERED: METHYLENE BLUE 50 MG/10 ML AMPUL ONE (10:08)
[2023-09-20] MEDS ORDERED: ONDANSETRON 4 MG/2 ML VIAL IVPUSH PRN (10:23)
[2023-09-20] MEDS ORDERED: PROMETHAZINE HCL 25 MG/1 ML VIAL IVPB PRN (10:23)
[2023-09-20] MEDS ORDERED: ACETAMINOPHEN 1000 MG/100 ML BAG IVPB ONE (10:24)
[2023-09-20] MEDS ORDERED: LORazepam 1 MG TABLET PO PRN (12:00)
[2023-09-20 12:41] VITALS: BMI 24.3
[2023-09-20] MEDS: morphine SULFATE 4 MG/ML VIAL IVPUSH PRN ×3 (13:00→23:49)
[2023-09-20] MEDS: LACTATED RINGERS SOLUTION 1,000 ML IV SCH (13:07)
[2023-09-20] MEDS ORDERED: PREGABALIN 50 MG CAPSULE PO SCH (14:00)
[2023-09-20] MEDS: PREGABALIN 50 MG CAPSULE PO SCH ×2 (14:59→23:00)
[2023-09-20] MEDS ORDERED: PIPERACILLIN/TAZOB 4.5 GM 4.5 GM in DEXTROSE 5%-WATER 100 ML IVPB SCH (15:00)
[2023-09-20] MEDS: INSULIN ASPART SLIDING SCALE (NOVOLOG) 1 VIAL SQ SCH ×2 (17:05→23:30)
[2023-09-20] MEDS: RIVAROXABAN 20 MG TABLET PO SCH (17:13)
[2023-09-20] MEDS ORDERED: RIVAROXABAN 20 MG TABLET PO SCH (18:00)
[2023-09-20] MEDS ORDERED: INSULIN ASPART SLIDING SCALE (NOVOLOG) 1 VIAL SQ ONE (18:23)
[2023-09-20] MEDS ORDERED: traZODone HCL 50 MG TABLET (FP) PO SCH (22:00)
[2023-09-20] MEDS ORDERED: ATORVASTATIN CA 40 MG TABLET (FP) PO SCH (22:00)
[2023-09-20] MEDS: traZODone HCL 50 MG TABLET (FP) PO SCH (23:00)
[2023-09-20] MEDS: ATORVASTATIN CA 40 MG TABLET (FP) PO SCH (23:00)
[2023-09-21] MEDS: PIPERACILLIN/TAZOB 4.5 GM 4.5 GM in DEXTROSE 5%-WATER 100 ML IVPB SCH ×3 (03:00→20:35)
[2023-09-21] MEDS: PREGABALIN 50 MG CAPSULE PO SCH ×4 (05:09→22:21)
[2023-09-21] MEDS: morphine SULFATE 4 MG/ML VIAL IVPUSH PRN ×2 (05:10→11:53)
[2023-09-21] MEDS: INSULIN ASPART SLIDING SCALE (NOVOLOG) 1 VIAL SQ SCH ×4 (06:36→22:27)
[2023-09-21] MEDS: ACETAMINOPHEN 1000 MG/100 ML BAG IVPB SCH ×2 (08:32→17:29)
[2023-09-21] MEDS: LACTATED RINGERS SOLUTION 1,000 ML IV SCH (09:58)
[2023-09-21] MEDS: MULTIVITAMINS (DAILY MVI) TABLET (FP) PO SCH (09:58)
[2023-09-21] MEDS: metoPROLOL SUCCINATE 25 MG TAB.SR.24H (FP) PO SCH (09:58)
[2023-09-21 10:32] LABS: BASO % 0.3 % (0-2.0); HEMATOCRIT 29.2 % (32.4-45.2); HEMOGLOBIN 9.1 GM/dL (10.7-15.3); LYMPH % 12.4 % (8-40); MCH 23.5 pg (25.7-33.7); MCHC 31.3 g/dl (32.0-36.0); MEAN CELL VOLUME 75.1 fl (80-96); MEAN PLT VOLUME 9.1 fl (7.5-11.1); NEUT % 82.3 % (42.8-82.8); PLATELET COUNT 348 10^3/uL (134-434); RBC 3.88 M/mm3 (3.60-5.2); RDW 18.4 % (11.6-15.6); WHITE BLOOD COUNT 16.1 K/mm3 (4.0-10.0)
[2023-09-21 10:55] LABS: POTASSIUM 3.9 mmol/L (3.5-5.1)
[2023-09-21 11:12] LABS: BLOOD UREA NITROGEN 21.6 mg/dL (7-18); CALCIUM 8.6 mg/dL (8.5-10.1)
[2023-09-21 11:16] LABS: CREATININE 1.4 mg/dL (0.55-1.3)
[2023-09-21 11:17] LABS: BILIRUBIN,TOTAL 0.3 mg/dL (0.2-1); TOT PROT 6.8 g/dl (6.4-8.2)
[2023-09-21] MEDS: POLYETHYLENE GLYCOL (HEALTHYLAX) 3350 17 GM PACKET PO SCH ×2 (11:53→22:21)
[2023-09-21] MEDS: DOCUSATE SODIUM 100 MG CAPSULE (FP) PO SCH ×2 (11:53→22:23)
[2023-09-21] MEDS: LORazepam 1 MG TABLET PO PRN (13:25)
[2023-09-21] MEDS: RIVAROXABAN 20 MG TABLET PO SCH (17:30)
[2023-09-21] MEDS: ATORVASTATIN CA 40 MG TABLET (FP) PO SCH (22:21)
[2023-09-21] MEDS: oxyCODONE HCL 5 MG TABLET PO PRN (22:21)
[2023-09-21] MEDS: traZODone HCL 50 MG TABLET (FP) PO SCH (22:22)
[2023-09-22] MEDS: ACETAMINOPHEN 1000 MG/100 ML BAG IVPB SCH ×2 (02:31→09:41)
[2023-09-22] MEDS: PIPERACILLIN/TAZOB 4.5 GM 4.5 GM in DEXTROSE 5%-WATER 100 ML IVPB SCH ×3 (02:47→18:20)
[2023-09-22] MEDS: PREGABALIN 50 MG CAPSULE PO SCH ×3 (06:41→22:35)
[2023-09-22] MEDS: INSULIN ASPART SLIDING SCALE (NOVOLOG) 1 VIAL SQ SCH ×4 (06:41→23:12)
[2023-09-22] MEDS: LACTATED RINGERS SOLUTION 1,000 ML IV SCH ×2 (07:51→10:59)
[2023-09-22] MEDS: DOCUSATE SODIUM 100 MG CAPSULE (FP) PO SCH ×3 (09:42→22:35)
[2023-09-22] MEDS: MULTIVITAMINS (DAILY MVI) TABLET (FP) PO SCH (09:42)
[2023-09-22 10:12] LABS: BASO % 0.8 % (0-2.0); EOS % 2.5 % (0-4.5); HEMATOCRIT 29.9 % (32.4-45.2); HEMOGLOBIN 9.1 GM/dL (10.7-15.3); LYMPH % 28.4 % (8-40); MCHC 30.4 g/dl (32.0-36.0); MEAN CELL VOLUME 75.5 fl (80-96); MEAN PLT VOLUME 8.9 fl (7.5-11.1); NEUT % 63.3 % (42.8-82.8); PLATELET COUNT 290 10^3/uL (134-434); RBC 3.97 M/mm3 (3.60-5.2); RDW 18.6 % (11.6-15.6); WHITE BLOOD COUNT 11.4 K/mm3 (4.0-10.0)
[2023-09-22] MEDS: metoPROLOL SUCCINATE 25 MG TAB.SR.24H (FP) PO SCH (10:14)
[2023-09-22 10:34] LABS: POTASSIUM 3.7 mmol/L (3.5-5.1)
[2023-09-22 10:36] LABS: BLOOD UREA NITROGEN 23.4 mg/dL (7-18); CALCIUM 7.9 mg/dL (8.5-10.1)
[2023-09-22] MEDS: POLYETHYLENE GLYCOL (HEALTHYLAX) 3350 17 GM PACKET PO SCH ×2 (10:37→22:35)
[2023-09-22 10:40] LABS: CREATININE 1.5 mg/dL (0.55-1.3)
[2023-09-22] MEDS ORDERED: IRON SUCROSE INJECTION 200 MG in SODIUM CHLORIDE 90 ML IVPB ONE (11:00)
[2023-09-22] MEDS: oxyCODONE HCL 5 MG TABLET PO PRN (13:15)
[2023-09-22] MEDS: LORazepam 1 MG TABLET PO PRN ×2 (14:17→22:35)
[2023-09-22] MEDS ORDERED: FAMOTIDINE 20 MG/50 ML IVPB 20 MG/50 ML MG IVPB ONE (16:19)
[2023-09-22] MEDS ORDERED: AMMONIUM LACTATE 12% LOTION 225 GM BOTTLE TP PRN (16:32)
[2023-09-22] MEDS: RIVAROXABAN 20 MG TABLET PO SCH (18:20)
[2023-09-22] MEDS: ATORVASTATIN CA 40 MG TABLET (FP) PO SCH (22:35)
[2023-09-22] MEDS: traZODone HCL 50 MG TABLET (FP) PO SCH (22:35)
[2023-09-23] MEDS: PIPERACILLIN/TAZOB 4.5 GM 4.5 GM in DEXTROSE 5%-WATER 100 ML IVPB SCH ×3 (01:16→17:09)
[2023-09-23] MEDS: ACETAMINOPHEN 1000 MG/100 ML BAG IVPB PRN ×2 (01:19→14:39)
[2023-09-23 03:09] LABS: PH,URINE 5.5 (5.0-8.0); URINE APPEARANCE CLEAR; URINE BILIRUBIN NEGATIVE (NEGATIVE); URINE COLOR YELLOW; URINE GLUCOSE (UA) NEGATIVE (NEGATIVE); URINE KETONE NEGATIVE (NEGATIVE); URINE LEUK ESTERASE NEGATIVE (NEGATIVE); URINE NITRITE NEGATIVE (NEGATIVE); URINE PROTEIN NEGATIVE (NEGATIVE); URINE UROBILINOGEN 0.2 mg/dL (0.2-1.0)
[2023-09-23] MEDS: oxyCODONE HCL 5 MG TABLET PO PRN ×2 (03:32→09:42)
[2023-09-23] MEDS: PREGABALIN 50 MG CAPSULE PO SCH ×3 (05:23→21:34)
[2023-09-23] MEDS: INSULIN ASPART SLIDING SCALE (NOVOLOG) 1 VIAL SQ SCH ×4 (06:23→21:35)
[2023-09-23] MEDS: MULTIVITAMINS (DAILY MVI) TABLET (FP) PO SCH (09:42)
[2023-09-23] MEDS: DOCUSATE SODIUM 100 MG CAPSULE (FP) PO SCH ×2 (09:43→21:35)
[2023-09-23] MEDS: PANTOPRAZOLE 40 MG TABLET PO SCH (09:43)
[2023-09-23] MEDS: metoPROLOL SUCCINATE 25 MG TAB.SR.24H (FP) PO SCH (09:43)
[2023-09-23] MEDS: POLYETHYLENE GLYCOL (HEALTHYLAX) 3350 17 GM PACKET PO SCH ×2 (09:43→21:35)
[2023-09-23] MEDS: LACTATED RINGERS SOLUTION 1,000 ML IV SCH (10:25)
[2023-09-23] MEDS: BACITRACIN ZINC 15 GM TUBE TOPICAL OINTMENT TP SCH (10:45)
[2023-09-23] MEDS ORDERED: ACETAMINOPHEN 325 MG TABLET (FP) PO ONE (16:55)
[2023-09-23] MEDS: RIVAROXABAN 20 MG TABLET PO SCH (17:09)
[2023-09-23] MEDS: LORazepam 1 MG TABLET PO PRN (17:15)
[2023-09-23] MEDS: ATORVASTATIN CA 40 MG TABLET (FP) PO SCH (21:35)
[2023-09-23] MEDS: traZODone HCL 50 MG TABLET (FP) PO SCH (21:35)
[2023-09-24] MEDS: PIPERACILLIN/TAZOB 4.5 GM 4.5 GM in DEXTROSE 5%-WATER 100 ML IVPB SCH ×3 (01:00→17:21)
[2023-09-24] MEDS: PREGABALIN 50 MG CAPSULE PO SCH ×3 (05:01→21:31)
[2023-09-24] MEDS: ACETAMINOPHEN 1000 MG/100 ML BAG IVPB PRN ×2 (05:48→18:33)
[2023-09-24] MEDS: INSULIN ASPART SLIDING SCALE (NOVOLOG) 1 VIAL SQ SCH ×4 (06:08→21:37)
[2023-09-24 09:19] LABS: HEMATOCRIT 26.1 % (32.4-45.2); MCH 23.1 pg (25.7-33.7); MCHC 30.8 g/dl (32.0-36.0); MEAN CELL VOLUME 75.1 fl (80-96); MEAN PLT VOLUME 9.4 fl (7.5-11.1); PLATELET COUNT 206 10^3/uL (134-434); RBC 3.47 M/mm3 (3.60-5.2); RDW 18.3 % (11.6-15.6); WHITE BLOOD COUNT 18.9 K/mm3 (4.0-10.0)
[2023-09-24 10:17] LABS: ALBUMIN 1.6 g/dl (3.4-5.0); BLOOD UREA NITROGEN 15.1 mg/dL (7-18); CALCIUM 7.8 mg/dL (8.5-10.1)
[2023-09-24 10:18] LABS: MAGNESIUM 1.8 mg/dL (1.8-2.4)
[2023-09-24 10:20] LABS: CREATININE 1.5 mg/dL (0.55-1.3)
[2023-09-24 10:22] LABS: BILIRUBIN,TOTAL 0.2 mg/dL (0.2-1); TOT PROT 5.5 g/dl (6.4-8.2)
[2023-09-24] MEDS: metoPROLOL SUCCINATE 25 MG TAB.SR.24H (FP) PO SCH (10:35)
[2023-09-24] MEDS: MULTIVITAMINS (DAILY MVI) TABLET (FP) PO SCH (10:53)
[2023-09-24] MEDS: PANTOPRAZOLE 40 MG TABLET PO SCH (10:53)
[2023-09-24] MEDS: DOCUSATE SODIUM 100 MG CAPSULE (FP) PO SCH ×2 (10:58→21:31)
[2023-09-24] MEDS: POLYETHYLENE GLYCOL (HEALTHYLAX) 3350 17 GM PACKET PO SCH ×2 (10:58→21:33)
[2023-09-24] MEDS: BACITRACIN ZINC 15 GM TUBE TOPICAL OINTMENT TP SCH (11:05)
[2023-09-24] MEDS: LACTATED RINGERS SOLUTION 1,000 ML IV SCH (11:55)
[2023-09-24] MEDS ORDERED: POTASSIUM CHLORIDE TABS 20 MEQ TABLET.ER (FP) PO ONE (14:27)
[2023-09-24] MEDS: LACTOBACILLUS ACIDOPHILUS 1 TABLET PO SCH (15:01)
[2023-09-24] MEDS: oxyCODONE HCL 5 MG TABLET PO PRN (15:01)
[2023-09-24] MEDS ORDERED: POTASSIUM CHLORIDE ORAL LIQUID 20 MEQ/15 ML PO SCH (15:13)
[2023-09-24] MEDS: POTASSIUM CHLORIDE 10 MEQ in SODIUM CHLORIDE 1,000 ML IV SCH (17:21)
[2023-09-24] MEDS: RIVAROXABAN 20 MG TABLET PO SCH (17:21)
[2023-09-24] MEDS: LORazepam 1 MG TABLET PO PRN (17:30)
[2023-09-24] MEDS: ATORVASTATIN CA 40 MG TABLET (FP) PO SCH (21:31)
[2023-09-24] MEDS: traZODone HCL 50 MG TABLET (FP) PO SCH (21:32)
[2023-09-25] MEDS: PIPERACILLIN/TAZOB 4.5 GM 4.5 GM in DEXTROSE 5%-WATER 100 ML IVPB SCH ×3 (01:35→17:25)
[2023-09-25] MEDS: PREGABALIN 50 MG CAPSULE PO SCH ×3 (06:11→21:45)
[2023-09-25] MEDS: INSULIN ASPART SLIDING SCALE (NOVOLOG) 1 VIAL SQ SCH ×4 (06:11→21:46)
[2023-09-25] MEDS: ACETAMINOPHEN 1000 MG/100 ML BAG IVPB PRN ×2 (06:12→21:47)
[2023-09-25] MEDS: oxyCODONE HCL 5 MG TABLET PO PRN (08:00)
[2023-09-25] MEDS: LACTOBACILLUS ACIDOPHILUS 1 TABLET PO SCH (09:23)
[2023-09-25] MEDS: MULTIVITAMINS (DAILY MVI) TABLET (FP) PO SCH (09:23)
[2023-09-25] MEDS: POTASSIUM CHLORIDE TABS 10 MEQ TABLET.ER (FP) PO SCH (09:23)
[2023-09-25] MEDS: PANTOPRAZOLE 40 MG TABLET PO SCH (09:23)
[2023-09-25] MEDS: metoPROLOL SUCCINATE 25 MG TAB.SR.24H (FP) PO SCH (09:24)
[2023-09-25] MEDS: DOCUSATE SODIUM 100 MG CAPSULE (FP) PO SCH ×2 (09:30→21:45)
[2023-09-25] MEDS: POLYETHYLENE GLYCOL (HEALTHYLAX) 3350 17 GM PACKET PO SCH ×2 (09:30→21:45)
[2023-09-25] MEDS ORDERED: IRON SUCROSE INJECTION 200 MG in SODIUM CHLORIDE 90 ML IVPB ONE (10:00)
[2023-09-25] MEDS: BACITRACIN ZINC 15 GM TUBE TOPICAL OINTMENT TP SCH (10:11)
[2023-09-25 10:29] LABS: BASO % 0.6 % (0-2.0); EOS % 2.8 % (0-4.5); HEMATOCRIT 26.7 % (32.4-45.2); HEMOGLOBIN 8.2 GM/dL (10.7-15.3); LYMPH % 14.9 % (8-40); MCH 23.2 pg (25.7-33.7); MCHC 30.6 g/dl (32.0-36.0); MEAN CELL VOLUME 75.9 fl (80-96); MEAN PLT VOLUME 9.3 fl (7.5-11.1); MONO % 4.8 % (3.8-10.2); NEUT % 76.9 % (42.8-82.8); PLATELET COUNT 245 10^3/uL (134-434); RBC 3.52 M/mm3 (3.60-5.2); RDW 18.8 % (11.6-15.6); WHITE BLOOD COUNT 15.2 K/mm3 (4.0-10.0)
[2023-09-25 10:46] LABS: POTASSIUM 3.9 mmol/L (3.5-5.1)
[2023-09-25 10:57] LABS: CALCIUM 7.7 mg/dL (8.5-10.1); CREATININE 1.4 mg/dL (0.55-1.3)
[2023-09-25 10:58] LABS: ALBUMIN 1.7 g/dl (3.4-5.0); BLOOD UREA NITROGEN 15.3 mg/dL (7-18); MAGNESIUM 1.8 mg/dL (1.8-2.4)
[2023-09-25 11:01] LABS: BILIRUBIN,TOTAL 0.1 mg/dL (0.2-1)
[2023-09-25] MEDS ORDERED: INSULIN ASPART SLIDING SCALE (NOVOLOG) 1 VIAL SQ ONE (11:32)
[2023-09-25] MEDS: LORazepam 1 MG TABLET PO PRN (15:03)
[2023-09-25] MEDS: RIVAROXABAN 20 MG TABLET PO SCH (17:25)
[2023-09-25] MEDS: POTASSIUM CHLORIDE 10 MEQ in SODIUM CHLORIDE 1,000 ML IV SCH (18:30)
[2023-09-25] MEDS: ATORVASTATIN CA 40 MG TABLET (FP) PO SCH (21:45)
[2023-09-25] MEDS: traZODone HCL 50 MG TABLET (FP) PO SCH (21:45)
[2023-09-26] MEDS: PIPERACILLIN/TAZOB 4.5 GM 4.5 GM in DEXTROSE 5%-WATER 100 ML IVPB SCH ×3 (02:04→18:02)
[2023-09-26] MEDS: PREGABALIN 50 MG CAPSULE PO SCH ×3 (06:05→21:19)
[2023-09-26] MEDS: INSULIN ASPART SLIDING SCALE (NOVOLOG) 1 VIAL SQ SCH ×4 (06:06→21:19)
[2023-09-26 07:06] VITALS: RESP 18
[2023-09-26 09:32] LABS: HEMATOCRIT 24.8 % (32.4-45.2); HEMOGLOBIN 7.6 GM/dL (10.7-15.3); MCH 23.3 pg (25.7-33.7); MCHC 30.7 g/dl (32.0-36.0); MEAN CELL VOLUME 76.1 fl (80-96); MEAN PLT VOLUME 10.4 fl (7.5-11.1); PLATELET COUNT 227 10^3/uL (134-434); RBC 3.26 M/mm3 (3.60-5.2); WHITE BLOOD COUNT 12.8 K/mm3 (4.0-10.0)
[2023-09-26] MEDS: LACTOBACILLUS ACIDOPHILUS 1 TABLET PO SCH (10:34)
[2023-09-26] MEDS: MULTIVITAMINS (DAILY MVI) TABLET (FP) PO SCH (10:34)
[2023-09-26] MEDS: PANTOPRAZOLE 40 MG TABLET PO SCH (10:34)
[2023-09-26] MEDS: BACITRACIN ZINC 15 GM TUBE TOPICAL OINTMENT TP SCH (10:34)
[2023-09-26] MEDS: metoPROLOL SUCCINATE 25 MG TAB.SR.24H (FP) PO SCH (10:34)
[2023-09-26] MEDS: POTASSIUM CHLORIDE TABS 10 MEQ TABLET.ER (FP) PO SCH (10:34)
[2023-09-26] MEDS: POLYETHYLENE GLYCOL (HEALTHYLAX) 3350 17 GM PACKET PO SCH ×2 (10:35→21:19)
[2023-09-26] MEDS: DOCUSATE SODIUM 100 MG CAPSULE (FP) PO SCH ×2 (10:35→21:19)
[2023-09-26] MEDS: oxyCODONE HCL 5 MG TABLET PO PRN (10:42)
[2023-09-26] MEDS: LORazepam 1 MG TABLET PO PRN (16:25)
[2023-09-26] MEDS: POTASSIUM CHLORIDE 10 MEQ in SODIUM CHLORIDE 1,000 ML IV SCH (17:34)
[2023-09-26] MEDS: RIVAROXABAN 20 MG TABLET PO SCH (18:02)
[2023-09-26 18:16] VITALS: BP 117/59; PULSE 72; TEMP 98.4
[2023-09-26] MEDS: traZODone HCL 50 MG TABLET (FP) PO SCH (21:19)
[2023-09-26] MEDS: ATORVASTATIN CA 40 MG TABLET (FP) PO SCH (21:19)
== END 2023-09-26 23:40 | disposition home health service (06) | DRG 223 ==
LOC: JER 07:10 → JERBED 17:03 → J5S 09-20 12:08
PROVIDERS: ADMIT Internal Medicine; ATTEND Family Medicine
PROC: 0UQG0ZZ Repair Vagina, Open Approach (ICD-10-PCS; 2023-09-20)
PROC: 0D9P0ZZ Drainage of Rectum, Open Approach (ICD-10-PCS; principal; 2023-09-20 09:00)
DX: K61.1 Rectal abscess (principal); E11.22 Type 2 diabetes mellitus with diabetic chronic kidney disease; E11.51 Type 2 diabetes mellitus with diabetic peripheral angiopathy without gangrene; E87.5 Hyperkalemia; E11.9 Type 2 diabetes mellitus without complications; F17.210 Nicotine dependence, cigarettes, uncomplicated; J45.909 Unspecified asthma, uncomplicated; N18.9 Chronic kidney disease, unspecified; N82.3 Fistula of vagina to large intestine; I69.351 Hemiplegia and hemiparesis following cerebral infarction affecting right dominant side; K21.9 Gastro-esophageal reflux disease without esophagitis
CPT/HCPCS: 36415; 71045-TC-FY; 74177-TC; 80048; 80053; 81003; 82728; 82962; 83540; 83550; 83605; 83735; 84132; 84466; 85025; 85027; 85610; 85730; 86850; 86900; 86901; 87040; 87086; 93005; 93010; 94760; 99285-25; J1756; Q9967; Q9968

== ENCOUNTER 2023-11-20 14:59 | Inpatient (IN) | payer OTHER ==
[2023-11-20 17:04] LABS: EOS % 4.2 % (0-4.5); HEMATOCRIT 37.5 % (32.4-45.2); HEMOGLOBIN 12.3 GM/dL (10.7-15.3); LYMPH % 35.1 % (8-40); MCH 26.8 pg (25.7-33.7); MCHC 32.7 g/dl (32.0-36.0); MEAN CELL VOLUME 81.9 fl (80-96); MEAN PLT VOLUME 8.7 fl (7.5-11.1); NEUT % 54.7 % (42.8-82.8); PLATELET COUNT 304 10^3/uL (134-434); RBC 4.59 M/mm3 (3.60-5.2); RDW 19.9 % (11.6-15.6); WHITE BLOOD COUNT 11.1 K/mm3 (4.0-10.0)
[2023-11-20 17:35] LABS: POTASSIUM 4.6 mmol/L (3.5-5.1)
[2023-11-20 17:37] LABS: ALBUMIN 2.9 g/dl (3.4-5.0); CALCIUM 9.2 mg/dL (8.5-10.1)
[2023-11-20 17:40] LABS: CREATININE 1.4 mg/dL (0.55-1.3)
[2023-11-20 17:42] LABS: BILIRUBIN,TOTAL 0.3 mg/dL (0.2-1)
[2023-11-20] MEDS ORDERED: VANCOMYCIN HCL 1,500 MG in DEXTROSE 5%-WATER - 500 ML IVPB ONE (22:31)
[2023-11-20] MEDS ORDERED: PIPERACILLIN/TAZOB 3.375 GM 3.375 GM/50 ML BAG IVPB ONE (22:54)
[2023-11-20] MEDS: PIPERACILLIN/TAZOB 3.375 GM 3.375 GM in DEXTROSE 5%-WATER - 50 ML IVPB ONE (23:02)
[2023-11-20] MEDS ORDERED: VANCOMYCIN IVPB ONE (23:04)
[2023-11-21] MEDS: VANCOMYCIN PREMIX 1.5 GM 1,500 MG/300 ML BAG IVPB ONE (01:38)
[2023-11-21] MEDS: ASPIRIN 81 MG CHEWABLE TABLETS PO SCH (09:21)
[2023-11-21] MEDS ORDERED: LORazepam 1 MG TABLET ONE (10:39)
[2023-11-21] MEDS ORDERED: oxyCODONE HCL 5 MG TABLET ONE ×2 (10:40→17:13)
[2023-11-21] MEDS: oxyCODONE HCL 5 MG TABLET PO PRN (10:42)
[2023-11-21] MEDS: LORazepam 1 MG TABLET PO PRN (10:42)
[2023-11-21 11:12] LABS: BASO % 1.2 % (0-2.0); EOS % 6.9 % (0-4.5); HEMATOCRIT 37.9 % (32.4-45.2); HEMOGLOBIN 12.3 GM/dL (10.7-15.3); MCH 26.6 pg (25.7-33.7); MCHC 32.5 g/dl (32.0-36.0); MEAN CELL VOLUME 81.8 fl (80-96); MEAN PLT VOLUME 8.6 fl (7.5-11.1); NEUT % 59.9 % (42.8-82.8); PLATELET COUNT 270 10^3/uL (134-434); RBC 4.63 M/mm3 (3.60-5.2); RDW 20.2 % (11.6-15.6)
[2023-11-21 11:36] LABS: POTASSIUM 4.8 mmol/L (3.5-5.1)
[2023-11-21 11:38] LABS: CALCIUM 9.1 mg/dL (8.5-10.1)
[2023-11-21 11:39] LABS: ALBUMIN 2.9 g/dl (3.4-5.0); MAGNESIUM 2.1 mg/dL (1.8-2.4)
[2023-11-21 11:42] LABS: CREATININE 1.1 mg/dL (0.55-1.3); PHOSPHOROUS 3.7 mg/dL (2.5-4.9)
[2023-11-21 11:43] LABS: BILIRUBIN,TOTAL 0.5 mg/dL (0.2-1); TOT PROT 7.8 g/dl (6.4-8.2)
[2023-11-21] MEDS ORDERED: ALBUTEROL SULFATE 0.021% (0.63 MG/3 ML) VIAL.NEB NEB PRN (14:11)
[2023-11-21] MEDS: INSULIN ASPART SLIDING SCALE (NOVOLOG) 1 VIAL SQ SCH (16:04)
[2023-11-21] MEDS ORDERED: AMPICILLIN NA/SULBACTAM NA 3 GM/100 ML BAG IVPB ONE (17:04)
[2023-11-21] MEDS ORDERED: metoPROLOL SUCCINATE 25 MG TAB.SR.24H (FP) PO ONE (17:11)
[2023-11-21] MEDS: AMPICILLIN NA/SULBACTAM NA 3 GM in SODIUM CHLORIDE 100 ML IVPB SCH (17:19)
[2023-11-21] MEDS: metoPROLOL SUCCINATE 25 MG TAB.SR.24H (FP) PO SCH (17:19)
[2023-11-21] MEDS: RIVAROXABAN 20 MG TABLET PO SCH (17:19)
[2023-11-21] MEDS: BUDESONIDE 0.25 MG/2ML INH SUSP VIAL NEB SCH (22:00)
[2023-11-21] MEDS: traZODone HCL 100 MG TABLET (FP) PO SCH (22:29)
[2023-11-21] MEDS: NYSTATIN 100,000 UNIT/GM TOPICAL CREAM 15 GM TUBE TP SCH (22:29)
[2023-11-21] MEDS: ATORVASTATIN CA 20 MG TABLET (FP) PO SCH (22:29)
[2023-11-21] MEDS ORDERED: VANCOMYCIN/WATER FOR INJ (PEG) 1,000 MG/200 ML BAG IVPB SCH (23:00)
[2023-11-21] MEDS: INSULIN (LEVEMIR) 100 UNITS/ML UNITS SQ SCH (23:05)
[2023-11-22 05:26] VITALS: BMI 24.9
[2023-11-22] MEDS: VANCOMYCIN 1,000 MG in DEXTROSE 5%-WATER - 250 ML IVPB SCH (05:44)
[2023-11-22] MEDS: VANCOMYCIN/WATER FOR INJ (PEG) 1,000 MG/200 ML BAG IVPB SCH (06:53)
[2023-11-22] MEDS: PREGABALIN 75 MG CAPSULE PO SCH ×2 (09:34→16:01)
[2023-11-22] MEDS: ASPIRIN COATED 81 MG TABLET.EC PO SCH (09:35)
[2023-11-22] MEDS: POLYETHYLENE GLYCOL (HEALTHYLAX) 3350 17 GM PACKET PO SCH (09:36)
[2023-11-22] MEDS: INSULIN (LEVEMIR) 100 UNITS/ML UNITS SQ SCH (17:45)
[2023-11-23 16:57] VITALS: BP 118/74; PULSE 72; RESP 10; TEMP 98.3
== END 2023-11-23 18:31 | disposition home or self-care (01) | DRG 383 ==
LOC: JER 14:59 → JERBED 22:39 → J8W 11-21 19:44
PROVIDERS: ADMIT Internal Medicine; ATTEND Family Medicine
DX: L03.211 Cellulitis of face (principal); I42.9 Cardiomyopathy, unspecified; L89.223 Pressure ulcer of left hip, stage 3; E11.9 Type 2 diabetes mellitus without complications; G81.91 Hemiplegia, unspecified affecting right dominant side; I12.9 Hypertensive chronic kidney disease with stage 1 through stage 4 chronic kidney disease, or unspecified chronic kidney disease; I48.91 Unspecified atrial fibrillation; J32.4 Chronic pansinusitis; E78.5 Hyperlipidemia, unspecified; F17.210 Nicotine dependence, cigarettes, uncomplicated; J45.909 Unspecified asthma, uncomplicated; K04.7 Periapical abscess without sinus; N18.9 Chronic kidney disease, unspecified; K21.9 Gastro-esophageal reflux disease without esophagitis
CPT/HCPCS: 36415; 70487-TC; 71045-TC-FY; 73090-TC-LT-FY; 80053; 82962; 83036; 83735; 84100; 84703; 85025; 93005; 93010; 94640; 99285-25; Q9967

== ENCOUNTER 2024-02-19 20:07 | Inpatient (IN) | payer OTHER ==
[2024-02-19] MEDS: SODIUM CHLORIDE 500 ML IV STA (21:55)
[2024-02-19 22:01] LABS: BASO % 0.8 % (0-2.0); EOS % 7.1 % (0-4.5); HEMATOCRIT 41.8 % (32.4-45.2); HEMOGLOBIN 13.5 GM/dL (10.7-15.3); LYMPH % 35.7 % (8-40); MCH 26.5 pg (25.7-33.7); MCHC 32.2 g/dl (32.0-36.0); MEAN CELL VOLUME 82.4 fl (80-96); MEAN PLT VOLUME 8.7 fl (7.5-11.1); MONO % 6.1 % (3.8-10.2); NEUT % 50.3 % (42.8-82.8); PLATELET COUNT 357 10^3/uL (134-434); RBC 5.07 M/mm3 (3.60-5.2); RDW 15.6 % (11.6-15.6); WHITE BLOOD COUNT 9.2 K/mm3 (4.0-10.0)
[2024-02-19 22:15] LABS: POTASSIUM 3.9 mmol/L (3.5-5.1)
[2024-02-19 22:17] LABS: ALBUMIN 3.4 g/dl (3.4-5.0)
[2024-02-19 22:19] LABS: BLOOD UREA NITROGEN 27.8 mg/dL (7-18)
[2024-02-19 22:22] LABS: CREATININE 1.6 mg/dL (0.55-1.3)
[2024-02-19 22:23] LABS: BILIRUBIN,TOTAL 0.5 mg/dL (0.2-1)
[2024-02-19] MEDS ORDERED: methylPREDNISolone NA SUCC 125 MG/2 ML VIAL ONE (22:33)
[2024-02-19] MEDS: methylPREDNISolone NA SUCC 125 MG/2 ML VIAL IVPB ONE (22:41)
[2024-02-20] MEDS ORDERED: ALBUTEROL SO4 2.5/IPRATROPIUM 0.5 INH SOL 3 ML VIAL.NEB. NEB PRN (06:25)
[2024-02-20 06:53] LABS: BASO % 0.7 % (0-2.0); EOS % 0.1 % (0-4.5); HEMOGLOBIN 12.4 GM/dL (10.7-15.3); LYMPH % 11.8 % (8-40); MCH 26.5 pg (25.7-33.7); MCHC 31.9 g/dl (32.0-36.0); MEAN PLT VOLUME 8.9 fl (7.5-11.1); MONO % 0.5 % (3.8-10.2); NEUT % 86.9 % (42.8-82.8); PLATELET COUNT 259 10^3/uL (134-434); RBC 4.69 M/mm3 (3.60-5.2); RDW 15.5 % (11.6-15.6); WHITE BLOOD COUNT 6.3 K/mm3 (4.0-10.0)
[2024-02-20 08:27] LABS: BLOOD UREA NITROGEN 25.1 mg/dL (7-18); CALCIUM 8.6 mg/dL (8.5-10.1); CREATININE 1.4 mg/dL (0.55-1.3); POTASSIUM 4.6 mmol/L (3.5-5.1)
[2024-02-20] MEDS: ASPIRIN 81 MG CHEWABLE TABLETS PO SCH (09:05)
[2024-02-20] MEDS: MULTIVITAMINS (DAILY MVI) TABLET (FP) PO SCH (09:05)
[2024-02-20] MEDS: metoPROLOL SUCCINATE 25 MG TAB.SR.24H (FP) PO SCH (09:05)
[2024-02-20] MEDS: PREGABALIN 75 MG CAPSULE PO SCH (09:06)
[2024-02-20] MEDS: ASCORBIC ACID 500 MG TABLET (FP) PO SCH (09:06)
[2024-02-20] MEDS ORDERED: HEPARIN NA (PORCINE) 5,000 UNITS/ML 1ML VIAL SQ SCH (10:00)
[2024-02-20 11:22] VITALS: BMI 22.6
[2024-02-20 12:39] LABS: SYPHILIS W/ RPR CONF NON-REACTIVE (NONREACTIVE)
[2024-02-20] MEDS: SODIUM CHLORIDE 0.45% 1,000 ML IV SCH (12:56)
[2024-02-20 13:07] LABS: HIV INTERPRETATION NEGATIVE (NEGATIVE)
[2024-02-20] MEDS: ACETAMINOPHEN 325 MG TABLET (FP) PO PRN (14:05)
[2024-02-20 15:15] LABS: PH,URINE 5.5 (5.0-8.0); URINE APPEARANCE Clear; URINE BILIRUBIN Negative (NEGATIVE); URINE COLOR Yellow; URINE GLUCOSE (UA) 1+ (NEGATIVE); URINE KETONE Negative (NEGATIVE); URINE LEUK ESTERASE Negative (NEGATIVE); URINE NITRITE Negative (NEGATIVE); URINE PROTEIN 1+ (NEGATIVE); URINE UROBILINOGEN 0.2 mg/dL (0.2-1.0)
[2024-02-20 15:18] LABS: EPI CELLS 10 /uL (0-25.1); URINE RBC 9 /uL (0-23.9); URINE WBC 3 /uL (0-25.8)
[2024-02-20 15:19] LABS: HYALINE CASTS 2 /uL (0-3.1); URINE BACTERIA 60 /uL (0-1359)
[2024-02-20] MEDS: MINERAL OIL/PET HY-PHL TOPICAL OINTMENT 454 GM JAR TP SCH (15:59)
[2024-02-20] MEDS: PERMETHRIN 5% TOPICAL CREAM 60 GM TUBE TP ONE (17:03)
[2024-02-20] MEDS: RIVAROXABAN 20 MG TABLET PO SCH (17:03)
[2024-02-20] MEDS: traMADol HCL 50 MG TABLET PO PRN (18:09)
[2024-02-20] MEDS: traZODone HCL 50 MG TABLET (FP) PO SCH (21:53)
[2024-02-20] MEDS: ATORVASTATIN CA 40 MG TABLET (FP) PO SCH (21:53)
[2024-02-21] MEDS: INSULIN ASPART SLIDING SCALE (NOVOLOG) 1 VIAL SQ SCH (06:47)
[2024-02-21 08:27] LABS: POTASSIUM 4.3 mmol/L (3.5-5.1)
[2024-02-21 08:31] LABS: CALCIUM 8.3 mg/dL (8.5-10.1)
[2024-02-21 08:32] LABS: BLOOD UREA NITROGEN 24.6 mg/dL (7-18)
[2024-02-21 08:34] LABS: CREATININE 1.2 mg/dL (0.55-1.3)
[2024-02-21 08:35] LABS: URINE APPEARANCE CLEAR; URINE COLOR YELLOW; URINE GLUCOSE (UA) 1 (NEGATIVE)
[2024-02-21 08:36] LABS: URINE BILIRUBIN NEGATIVE (NEGATIVE); URINE KETONE NEGATIVE (NEGATIVE); URINE LEUK ESTERASE 3+ (NEGATIVE); URINE NITRITE NEGATIVE (NEGATIVE); URINE PROTEIN TRACE (NEGATIVE); URINE UROBILINOGEN 0.2 mg/dL (0.2-1.0)
[2024-02-21 08:36] LABS: TOT PROT 6.5 g/dl (6.4-8.2)
[2024-02-21 08:46] LABS: ALBUMIN 2.7 g/dl (3.4-5.0)
[2024-02-21 09:11] LABS: BILIRUBIN,TOTAL 0.3 mg/dL (0.2-1)
[2024-02-21 09:24] LABS: URINE RBC 9 /uL (0-23.9); URINE WBC 4 /uL (0-25.8)
[2024-02-21 09:25] LABS: EPI CELLS 6 /uL (0-25.1); HYALINE CASTS 0 /uL (0-3.1); URINE BACTERIA 120 /uL (0-1359)
[2024-02-21] MEDS: methylPREDNISolone NA SUCC 40 MG/1 ML VIAL IVPUSH SCH (15:58)
[2024-02-21] MEDS: oxyCODONE HCL 5 MG TABLET PO PRN (15:59)
[2024-02-21] MEDS ORDERED: methylPREDNISolone NA SUCC 40 MG/1 ML VIAL IVPUSH SCH (16:15)
[2024-02-21 17:11] LABS: VARICELLA-ZOSTER IGM < 0.91 index (0.00-0.90)
[2024-02-21] MEDS: HYDROCORTISONE 0.5% TOPICAL CREAM 30 GM TUBE TP PRN (21:30)
[2024-02-22] MEDS: methylPREDNISolone NA SUCC 40 MG/1 ML VIAL IVPUSH SCH (00:55)
[2024-02-22] MEDS: INSULIN (NOVOLOG) ASPART 100 UNITS/ML 10ML VIAL SQ ONE (02:53)
[2024-02-23] MEDS ORDERED: ALBUTEROL SO4 0.083% IH SOL 2.5 MG/3 ML VIAL.NEB. NEB PRN (12:09)
[2024-02-23] MEDS ORDERED: oxyCODONE HCL 5 MG TABLET PO PRN (12:10)
[2024-02-23] MEDS: ALBUTEROL SO4 2.5/IPRATROPIUM 0.5 INH SOL 3 ML VIAL.NEB. NEB SCH (13:18)
[2024-02-23 14:50] VITALS: RESP 18
[2024-02-23] MEDS: oxyCODONE HCL 5 MG TABLET PO PRN (16:20)
[2024-02-24] MEDS ORDERED: predniSONE 10 MG TABLET (UD) PO SCH (10:00)
[2024-02-24] MEDS: HYDROmorphone HCL 2 MG TABLET PO PRN (10:08)
[2024-02-24] MEDS: DOCUSATE SODIUM 100 MG CAPSULE (FP) PO PRN (10:10)
[2024-02-24] MEDS: predniSONE 10 MG TABLET (UD) PO SCH (21:32)
[2024-02-25 15:30] VITALS: BP 113/68; PULSE 70; TEMP 98.2
== END 2024-02-25 21:45 | disposition home or self-care (01) | DRG 421 ==
LOC: JER 20:07 → JERBED 02-20 03:12 → J6S 02-20 06:59
PROVIDERS: ADMIT Internal Medicine; ATTEND Family Medicine
DX: R62.7 Adult failure to thrive (principal); N17.9 Acute kidney failure, unspecified; I69.351 Hemiplegia and hemiparesis following cerebral infarction affecting right dominant side; I42.8 Other cardiomyopathies; E11.22 Type 2 diabetes mellitus with diabetic chronic kidney disease; I48.91 Unspecified atrial fibrillation; K61.1 Rectal abscess; R21 Rash and other nonspecific skin eruption; I25.2 Old myocardial infarction; J44.9 Chronic obstructive pulmonary disease, unspecified; E11.51 Type 2 diabetes mellitus with diabetic peripheral angiopathy without gangrene; I12.9 Hypertensive chronic kidney disease with stage 1 through stage 4 chronic kidney disease, or unspecified chronic kidney disease; N18.9 Chronic kidney disease, unspecified; I25.10 Atherosclerotic heart disease of native coronary artery without angina pectoris; D64.9 Anemia, unspecified; Z89.612 Acquired absence of left leg above knee
CPT/HCPCS: 36415; 71045-TC-FY; 80048; 80053; 81003; 82533; 82962; 83690; 84443; 85025; 86160; 86618; 86780; 86787; 86850; 86900; 86901; 87040; 87086; 87389; 93005; 93010; 94640; 97116-GP; 97162-GP; 99285-25

== ENCOUNTER 2024-02-28 01:10 | Inpatient (IN) | payer OTHER ==
[2024-02-28] MEDS ORDERED: FUROSEMIDE 40 MG/4 ML INJECTABLE VIAL ONE (02:35)
[2024-02-28 02:39] LABS: BASO % 0.6 % (0-2.0); EOS % 7.2 % (0-4.5); HEMATOCRIT 39.5 % (32.4-45.2); HEMOGLOBIN 12.8 GM/dL (10.7-15.3); LYMPH % 17.3 % (8-40); MCH 26.8 pg (25.7-33.7); MCHC 32.5 g/dl (32.0-36.0); MEAN CELL VOLUME 82.6 fl (80-96); MEAN PLT VOLUME 9.8 fl (7.5-11.1); MONO % 3.2 % (3.8-10.2); NEUT % 71.7 % (42.8-82.8); PLATELET COUNT 242 10^3/uL (134-434); RBC 4.78 M/mm3 (3.60-5.2); RDW 16.7 % (11.6-15.6); WHITE BLOOD COUNT 16.2 K/mm3 (4.0-10.0)
[2024-02-28 02:42] LABS: INR 1.74 (0.83-1.09); PROTHROMBIN TIME (PATIENT) 19.3 SEC (9.7-13.0); VENOUS BASE EXCESS -3.2 mmol/L (-2-2); VENOUS O2 SATURATION 25.3 % (70-80); VENOUS PCO2 66.1 mmHg (38-52); VENOUS PH 7.213 (7.310-7.410)
[2024-02-28 02:45] LABS: ACTIVATED PTT 38.6 SECONDS (25.2-36.5)
[2024-02-28] MEDS: FUROSEMIDE 40 MG/4 ML INJECTABLE VIAL IVPUSH ONE (02:58)
[2024-02-28] MEDS ORDERED: PIPERACILLIN/TAZOB 4.5 GM 4.5 GM/100 ML BAG IVPB ONE (03:15)
[2024-02-28] MEDS: PIPERACILLIN/TAZOB 4.5 GM 4.5 GM in DEXTROSE 5%-WATER 100 ML IVPB ONE (03:22)
[2024-02-28 03:43] LABS: POTASSIUM 4.5 mmol/L (3.5-5.1)
[2024-02-28 03:45] LABS: ALBUMIN 3.1 g/dl (3.4-5.0)
[2024-02-28 03:47] LABS: BLOOD UREA NITROGEN 36.2 mg/dL (7-18)
[2024-02-28 03:49] LABS: CREATININE 1.8 mg/dL (0.55-1.3)
[2024-02-28 03:51] LABS: TOT PROT 7.1 g/dl (6.4-8.2)
[2024-02-28 03:52] LABS: BILIRUBIN,TOTAL 0.4 mg/dL (0.2-1)
[2024-02-28] MEDS: SODIUM CHLORIDE 0.9% 500 ML INFUS.BAG IV ONE (05:00)
[2024-02-28] MEDS ORDERED: HYDROCORTISONE 0.5% TOPICAL CREAM 30 GM TUBE TP PRN (06:41)
[2024-02-28] MEDS ORDERED: DOCUSATE SODIUM 100 MG CAPSULE (FP) PO PRN (06:41)
[2024-02-28] MEDS ORDERED: ALBUTEROL SO4 2.5/IPRATROPIUM 0.5 INH SOL 3 ML VIAL.NEB. NEB PRN (06:41)
[2024-02-28] MEDS: ALBUTEROL SO4 0.083% IH SOL 2.5 MG/3 ML VIAL.NEB. NEB SCH ×2 (07:33→12:01)
[2024-02-28] MEDS: INSULIN ASPART SLIDING SCALE (NOVOLOG) 1 VIAL SQ SCH (07:33)
[2024-02-28] MEDS ORDERED: PIPERACILLIN/TAZOB 3.375 GM 3.375 GM in DEXTROSE 5%-WATER - 50 ML IVPB SCH (09:00)
[2024-02-28] MEDS ORDERED: ASCORBIC ACID 500 MG TABLET (FP) ONE (09:04)
[2024-02-28] MEDS ORDERED: POLYETHYLENE GLYCOL (HEALTHYLAX) 3350 17 GM PACKET ONE ×2 (09:04→23:54)
[2024-02-28] MEDS ORDERED: MULTIVITAMINS (DAILY MVI) TABLET (FP) ONE (09:04)
[2024-02-28] MEDS ORDERED: PIPERACILLIN/TAZOB 3.375 GM 3.375 GM/50 ML BAG IVPB ONE ×3 (09:05→21:41)
[2024-02-28] MEDS: PIPERACILLIN/TAZOB 3.375 GM 3.375 GM in DEXTROSE 5%-WATER - 50 ML IVPB SCH (09:14)
[2024-02-28] MEDS: MINERAL OIL/PET HY-PHL TOPICAL OINTMENT 454 GM JAR TP SCH (09:14)
[2024-02-28] MEDS: POLYETHYLENE GLYCOL (HEALTHYLAX) 3350 17 GM PACKET PO SCH (09:15)
[2024-02-28] MEDS: ASCORBIC ACID 500 MG TABLET (FP) PO SCH (09:15)
[2024-02-28] MEDS: MULTIVITAMINS (DAILY MVI) TABLET (FP) PO SCH (09:15)
[2024-02-28] MEDS ORDERED: PREGABALIN 100 MG CAPSULE ONE ×2 (15:03→23:56)
[2024-02-28] MEDS ORDERED: ALBUTEROL SO4 0.083% IH SOL 2.5 MG/3 ML VIAL.NEB. NEB ONE ×2 (15:04→20:45)
[2024-02-28] MEDS: PREGABALIN 100 MG CAPSULE PO SCH (15:13)
[2024-02-28] MEDS: PREGABALIN 75 MG CAPSULE PO SCH (15:33)
[2024-02-28] MEDS: RIVAROXABAN 20 MG TABLET PO SCH (17:42)
[2024-02-28] MEDS ORDERED: RIVAROXABAN 20 MG TABLET PO SCH (18:00)
[2024-02-28 20:36] LABS: EPI CELLS 9 /uL (0-25.1); HYALINE CASTS 8 /uL (0-3.1); URINE APPEARANCE CLEAR; URINE BACTERIA 223 /uL (0-1359); URINE BILIRUBIN NEGATIVE (NEGATIVE); URINE COLOR YELLOW; URINE GLUCOSE (UA) NEGATIVE (NEGATIVE); URINE KETONE NEGATIVE (NEGATIVE); URINE LEUK ESTERASE 3+ (NEGATIVE); URINE NITRITE NEGATIVE (NEGATIVE); URINE PROTEIN 1+ (NEGATIVE); URINE RBC 13 /uL (0-23.9); URINE UROBILINOGEN 0.2 mg/dL (0.2-1.0); URINE WBC 209 /uL (0-25.8)
[2024-02-28] MEDS ORDERED: LORazepam 0.5 MG TABLET ONE (20:45)
[2024-02-28] MEDS: LORazepam 0.5 MG TABLET PO ONE (21:34)
[2024-02-28] MEDS ORDERED: traZODone HCL 100 MG TABLET (FP) ONE (23:55)
[2024-02-28] MEDS ORDERED: ATORVASTATIN CA 40 MG TABLET (FP) ONE (23:55)
[2024-02-28] MEDS ORDERED: DOXYCYCLINE HYCLATE 100 MG VIAL ONE (23:55)
[2024-02-29] MEDS: ATORVASTATIN CA 40 MG TABLET (FP) PO SCH (00:10)
[2024-02-29] MEDS: DOXYCYCLINE INJECTION 100 MG in DEXTROSE 5%-WATER 100 ML IVPB SCH (00:10)
[2024-02-29] MEDS: traZODone HCL 50 MG TABLET (FP) PO SCH (00:10)
[2024-02-29] MEDS ORDERED: VANCOMYCIN 1 GRAM (PRE-DOCKED) 1,000 MG/250 ML BAG IVPB ONE (01:12)
[2024-02-29] MEDS: VANCOMYCIN 1 GRAM (PRE-DOCKED) 1,000 MG/250 ML BAG IVPB ONE (01:28)
[2024-02-29] MEDS ORDERED: INSULIN ASPART SLIDING SCALE (NOVOLOG) 1 VIAL SQ ONE (07:28)
[2024-02-29 08:14] LABS: BASO % 0.2 % (0-2.0); EOS % 5.9 % (0-4.5); HEMATOCRIT 30.5 % (32.4-45.2); LYMPH % 12.6 % (8-40); MCH 27.1 pg (25.7-33.7); MCHC 32.7 g/dl (32.0-36.0); MEAN CELL VOLUME 82.8 fl (80-96); MEAN PLT VOLUME 10.3 fl (7.5-11.1); MONO % 4.2 % (3.8-10.2); NEUT % 77.1 % (42.8-82.8); PLATELET COUNT 145 10^3/uL (134-434); RBC 3.69 M/mm3 (3.60-5.2); RDW 16.4 % (11.6-15.6); WHITE BLOOD COUNT 15.1 K/mm3 (4.0-10.0)
[2024-02-29 08:29] LABS: POTASSIUM 4.1 mmol/L (3.5-5.1)
[2024-02-29 08:34] LABS: MAGNESIUM 2.2 mg/dL (1.8-2.4)
[2024-02-29 08:37] LABS: CREATININE 1.5 mg/dL (0.55-1.3); PHOSPHOROUS 3.2 mg/dL (2.5-4.9)
[2024-02-29] MEDS: INSULIN (LEVEMIR) 100 UNITS/ML UNITS SQ SCH (10:42)
[2024-02-29] MEDS: PIPERACILLIN/TAZOB 3.375 GM 3.375 GM in DEXTROSE 5%-WATER - 50 ML IVPB SCH (10:43)
[2024-02-29] MEDS: CEFTRIAXONE 2 GM in DEXTROSE 5%-WATER 100 ML IVPB SCH (12:41)
[2024-02-29] MEDS: ACETAMINOPHEN 325 MG TABLET (FP) PO PRN (15:27)
[2024-02-29 16:09] VITALS: BMI 22.1
[2024-02-29] MEDS: BENZONATATE 200 MG CAPSULE PO PRN (22:27)
[2024-03-01] MEDS: guaiFENesin 200 MG/10 ML 10 ML UNIT-DOSE CUPS PO PRN (04:00)
[2024-03-01] MEDS ORDERED: INSULIN (LEVEMIR) 100 UNITS/ML UNITS SQ ONE (07:42)
[2024-03-01 08:10] LABS: BASO % 0.5 % (0-2.0); EOS % 8.3 % (0-4.5); HEMATOCRIT 29.9 % (32.4-45.2); HEMOGLOBIN 9.7 GM/dL (10.7-15.3); LYMPH % 18.8 % (8-40); MCH 27.1 pg (25.7-33.7); MCHC 32.6 g/dl (32.0-36.0); MEAN CELL VOLUME 83.3 fl (80-96); MONO % 5.4 % (3.8-10.2); PLATELET COUNT 156 10^3/uL (134-434); RBC 3.59 M/mm3 (3.60-5.2); WHITE BLOOD COUNT 9.1 K/mm3 (4.0-10.0)
[2024-03-01 09:12] LABS: POTASSIUM 4.4 mmol/L (3.5-5.1)
[2024-03-01 09:14] LABS: BLOOD UREA NITROGEN 21.8 mg/dL (7-18); CALCIUM 7.8 mg/dL (8.5-10.1)
[2024-03-01 09:17] LABS: CREATININE 1.3 mg/dL (0.55-1.3)
[2024-03-01 09:19] LABS: BILIRUBIN,TOTAL 0.2 mg/dL (0.2-1); TOT PROT 5.7 g/dl (6.4-8.2)
[2024-03-01 09:23] LABS: ALBUMIN 2.1 g/dl (3.4-5.0)
[2024-03-01] MEDS: methylPREDNISolone NA SUCC 40 MG/1 ML VIAL IVPUSH SCH (09:43)
[2024-03-01] MEDS: BUDESONIDE 0.25 MG/2ML INH SUSP VIAL NEB PRN (20:45)
[2024-03-02 00:09] VITALS: TEMP 98.4
[2024-03-02 10:47] VITALS: BP 101/57; PULSE 67; RESP 23
== END 2024-03-02 13:14 | disposition home or self-care (01) | DRG 139 ==
LOC: JER 01:10 → JERBED 05:36 → J2W 02-29 04:22
PROVIDERS: ADMIT Internal Medicine; ATTEND Family Medicine
DX: J13 Pneumonia due to Streptococcus pneumoniae (principal); I25.10 Atherosclerotic heart disease of native coronary artery without angina pectoris; E78.5 Hyperlipidemia, unspecified; I48.91 Unspecified atrial fibrillation; E11.51 Type 2 diabetes mellitus with diabetic peripheral angiopathy without gangrene; I12.9 Hypertensive chronic kidney disease with stage 1 through stage 4 chronic kidney disease, or unspecified chronic kidney disease; R21 Rash and other nonspecific skin eruption; E11.22 Type 2 diabetes mellitus with diabetic chronic kidney disease; E11.21 Type 2 diabetes mellitus with diabetic nephropathy; N18.9 Chronic kidney disease, unspecified; N17.9 Acute kidney failure, unspecified; I42.8 Other cardiomyopathies; J44.9 Chronic obstructive pulmonary disease, unspecified; K59.00 Constipation, unspecified; K21.9 Gastro-esophageal reflux disease without esophagitis; K57.90 Diverticulosis of intestine, part unspecified, without perforation or abscess without bleeding; M54.50 Low back pain, unspecified; R62.7 Adult failure to thrive; Z68.22 Body mass index [BMI] 22.0-22.9, adult; D72.829 Elevated white blood cell count, unspecified; Z86.73 Personal history of transient ischemic attack (TIA), and cerebral infarction without residual deficits; Z89.612 Acquired absence of left leg above knee
CPT/HCPCS: 0241U-QW; 36415; 70450-TC; 71045-TC-FY; 80048; 80053; 80061; 81003; 82550; 82803; 82962; 83036; 83605; 83735; 83880; 84100; 84484; 85025; 85610; 85730; 86850; 86900; 86901; 87040; 87070; 87077; 87081; 87205; 87899; 93005; 93010; 94640; 99291

== ENCOUNTER 2024-03-29 23:51 | Inpatient (IN) | payer OTHER ==
[2024-03-30 01:57] LABS: BASO % 0.8 % (0-2.0); EOS % 3.3 % (0-4.5); HEMATOCRIT 38.4 % (32.4-45.2); HEMOGLOBIN 12.1 GM/dL (10.7-15.3); LYMPH % 24.6 % (8-40); MCH 26.1 pg (25.7-33.7); MCHC 31.6 g/dl (32.0-36.0); MEAN CELL VOLUME 82.5 fl (80-96); MEAN PLT VOLUME 9.7 fl (7.5-11.1); MONO % 5.6 % (3.8-10.2); NEUT % 65.7 % (42.8-82.8); PLATELET COUNT 264 10^3/uL (134-434); RBC 4.65 M/mm3 (3.60-5.2); RDW 16.1 % (11.6-15.6); WHITE BLOOD COUNT 15.8 K/mm3 (4.0-10.0)
[2024-03-30 02:07] LABS: INR 0.98 (0.83-1.09); PROTHROMBIN TIME (PATIENT) 11.1 SEC (9.7-13.0)
[2024-03-30 02:09] LABS: ACTIVATED PTT 33.5 SECONDS (25.2-36.5)
[2024-03-30 02:18] LABS: CHLORIDE 101 mmol/L (98-107); SODIUM 135 mmol/L (136-145)
[2024-03-30 02:21] LABS: CALCIUM 8.5 mg/dL (8.5-10.1)
[2024-03-30 02:22] LABS: ALBUMIN 3.4 g/dl (3.4-5.0); CO2 27 mmol/L (21-32); GLUCOSE,RANDOM 275 mg/dL (74-106); MAGNESIUM 1.8 mg/dL (1.8-2.4)
[2024-03-30 02:24] LABS: CREATININE 2.2 mg/dL (0.55-1.3); SGOT/AST 44 U/L (15-37); SGPT/ALT 34 U/L (13-61)
[2024-03-30 02:25] LABS: BILIRUBIN,TOTAL 0.3 mg/dL (0.2-1)
[2024-03-30 02:27] LABS: TOT PROT 8.3 g/dl (6.4-8.2)
[2024-03-30 02:28] LABS: ALK PHOS 305 U/L (45-117)
[2024-03-30 02:30] LABS: N-TERMINAL BNP 1340.4 pg/ml (5-125)
[2024-03-30] MEDS ORDERED: ACETAMINOPHEN INJECTION 100 ML IVPB ONE (02:52)
[2024-03-30] MEDS: ACETAMINOPHEN 1000 MG/100 ML BAG IVPB ONE (02:57)
[2024-03-30 03:09] LABS: ANION GAP 7 mmol/L (4-13); POTASSIUM 6.1 mmol/L (3.5-5.1)
[2024-03-30] MEDS ORDERED: PIPERACILLIN/TAZOB 4.5 GM 4.5 GM/100 ML BAG IVPB ONE (03:23)
[2024-03-30] MEDS ORDERED: CALCIUM GLUCONATE 10% - 1,000 MG/10 ML VIAL ONE (03:57)
[2024-03-30] MEDS ORDERED: CALCIUM GLUC IN NACL, ISO-OSM 1 GM/50 ML BAG IVPB ONE (04:00)
[2024-03-30] MEDS: DEXTROSE 50%-WATER - 25 GM/50 ML VIAL IVPUSH ONE (04:12)
[2024-03-30] MEDS: SODIUM CHLORIDE 500 ML IV STA (04:12)
[2024-03-30] MEDS: PIPERACILLIN/TAZOB 4.5 GM 4.5 GM in DEXTROSE 5%-WATER 100 ML IVPB ONE (04:12)
[2024-03-30] MEDS: INSULIN REGULAR HUMAN 100 UNITS/ML *VIAL IVPUSH ONE (04:12)
[2024-03-30] MEDS: CALCIUM GLUCONATE 10% - 1,000 MG/10 ML VIAL IVPB ONE (04:12)
[2024-03-30] MEDS: INSULIN (NOVOLOG) ASPART 100 UNITS/ML 10ML VIAL SQ ONE ×3 (04:13→23:30)
[2024-03-30] MEDS: SODIUM CHLORIDE 0.9% 500 ML INFUS.BAG IV ONE (04:14)
[2024-03-30] MEDS ORDERED: FUROSEMIDE 40 MG/4 ML INJECTABLE VIAL ONE (04:34)
[2024-03-30] MEDS: FUROSEMIDE 40 MG/4 ML INJECTABLE VIAL IVPUSH ONE (05:13)
[2024-03-30] MEDS ORDERED: ALBUTEROL SO4 2.5/IPRATROPIUM 0.5 INH SOL 3 ML VIAL.NEB. NEB PRN (05:19)
[2024-03-30] MEDS ORDERED: ACETAMINOPHEN 1000 MG/100 ML BAG IVPB PRN (05:21)
[2024-03-30 05:29] LABS: URINE APPEARANCE TURBID; URINE BILIRUBIN NEGATIVE (NEGATIVE); URINE COLOR YELLOW; URINE GLUCOSE (UA) NEGATIVE (NEGATIVE); URINE KETONE TRACE (NEGATIVE); URINE LEUK ESTERASE NEGATIVE (NEGATIVE); URINE NITRITE NEGATIVE (NEGATIVE); URINE PROTEIN TRACE (NEGATIVE)
[2024-03-30] MEDS ORDERED: methylPREDNISolone NA SUCC 40 MG/1 ML VIAL ONE (05:47)
[2024-03-30] MEDS: methylPREDNISolone NA SUCC 40 MG/1 ML VIAL IVPUSH SCH (05:53)
[2024-03-30 06:31] LABS: HEMATOCRIT 36.7 % (32.4-45.2); HEMOGLOBIN 11.6 GM/dL (10.7-15.3); MCH 26.2 pg (25.7-33.7); MCHC 31.6 g/dl (32.0-36.0); MEAN CELL VOLUME 82.9 fl (80-96); MEAN PLT VOLUME 9.6 fl (7.5-11.1); PLATELET COUNT 228 10^3/uL (134-434); RBC 4.43 M/mm3 (3.60-5.2); RDW 15.6 % (11.6-15.6); WHITE BLOOD COUNT 20.6 K/mm3 (4.0-10.0)
[2024-03-30] MEDS: AZITHROMYCIN IVPB 500 MG/250 ML BAG IVPB SCH (06:45)
[2024-03-30] MEDS: PREGABALIN 75 MG CAPSULE PO SCH (06:45)
[2024-03-30] MEDS: HEPARIN NA (PORCINE) 5,000 UNITS/ML 1ML VIAL SQ SCH (06:45)
[2024-03-30] MEDS: INSULIN ASPART SLIDING SCALE (NOVOLOG) 1 VIAL SQ SCH ×2 (06:46→17:24)
[2024-03-30] MEDS: PANTOPRAZOLE 40 MG TABLET PO SCH (06:47)
[2024-03-30 06:51] LABS: POTASSIUM 4.8 mmol/L (3.5-5.1)
[2024-03-30 06:52] LABS: BLOOD UREA NITROGEN 23.4 mg/dL (7-18); CALCIUM 8.6 mg/dL (8.5-10.1); MAGNESIUM 1.6 mg/dL (1.8-2.4)
[2024-03-30 06:56] LABS: CREATININE 2.4 mg/dL (0.55-1.3); PHOSPHOROUS 4.4 mg/dL (2.5-4.9)
[2024-03-30 07:21] LABS: ARTERIAL BLD GAS O2 SATURATION 94.6 % (95-98); ARTERIAL BLOOD GAS BASE EXCESS -5.4 mmol/L (-2-2); ARTERIAL BLOOD GAS PO2 84.2 mmHg (80-100); ARTERIAL BLOOD GAS pH 7.252 (7.350-7.450)
[2024-03-30 07:23] LABS: ALLENS TEST POSITIVE
[2024-03-30] MEDS: BUDESONIDE 0.25 MG/2ML INH SUSP VIAL NEB SCH (08:11)
[2024-03-30 08:38] LABS: LACTIC ACID 2.1 mmol/L (0.4-2.0)
[2024-03-30 09:22] LABS: ANISOCYTOSIS 0; MACROCYTOSIS 0
[2024-03-30] MEDS: ASCORBIC ACID 500 MG TABLET (FP) PO SCH (09:35)
[2024-03-30] MEDS: ASPIRIN 81 MG CHEWABLE TABLETS PO SCH (09:35)
[2024-03-30] MEDS: FOLIC ACID 1 MG TABLET (FP) PO SCH (09:35)
[2024-03-30] MEDS: PIPERACILLIN/TAZOB 3.375 GM 3.375 GM in DEXTROSE 5%-WATER - 50 ML IVPB SCH (09:36)
[2024-03-30] MEDS: POLYETHYLENE GLYCOL (HEALTHYLAX) 3350 17 GM PACKET PO SCH (09:37)
[2024-03-30] MEDS: MUPIROCIN 2% TOPICAL OINTMENT FOR DECOLONIZATION NS SCH (11:30)
[2024-03-30] MEDS: MAGNESIUM SULFATE IN WATER 2 GM/50 ML IVPB IVPB ONE (11:42)
[2024-03-30] MEDS ORDERED: PIPERACILLIN/TAZOB 3.375 GM 3.375 GM in DEXTROSE 5%-WATER - 50 ML IVPB SCH (12:00)
[2024-03-30] MEDS: ALBUTEROL SO4 2.5/IPRATROPIUM 0.5 INH SOL 3 ML VIAL.NEB. NEB SCH (12:18)
[2024-03-30] MEDS: LACTATED RINGERS SOLUTION 1,000 ML/1,000 ML INFUS.BAG IV SCH (12:37)
[2024-03-30] MEDS: RIVAROXABAN 20 MG TABLET PO SCH (17:55)
[2024-03-30] MEDS: PIPERACILLIN/TAZOB 2.25 GM 2.25 GM in DEXTROSE 5%-WATER - 50 ML IVPB SCH (17:57)
[2024-03-30] MEDS ORDERED: LORazepam 0.5 MG TABLET ONE (21:00)
[2024-03-30] MEDS: LORazepam 1 MG TABLET PO PRN (21:24)
[2024-03-30] MEDS: INSULIN (LEVEMIR) 100 UNITS/ML UNITS SQ SCH (21:25)
[2024-03-30] MEDS: CHLORHEXIDINE GLUCONATE 4% CLEANSER FOR DECOLONIZATION TP SCH (21:25)
[2024-03-30] MEDS: ATORVASTATIN CA 40 MG TABLET (FP) PO SCH (21:26)
[2024-03-30] MEDS ORDERED: INSULIN (LEVEMIR) 100 UNITS/ML UNITS SQ SCH (22:00)
[2024-03-31 07:27] LABS: HEMATOCRIT 31.8 % (32.4-45.2); MCH 25.8 pg (25.7-33.7); MCHC 31.5 g/dl (32.0-36.0); MEAN CELL VOLUME 82.1 fl (80-96); MEAN PLT VOLUME 9.9 fl (7.5-11.1); PLATELET COUNT 188 10^3/uL (134-434); RBC 3.88 M/mm3 (3.60-5.2); RDW 15.5 % (11.6-15.6); WHITE BLOOD COUNT 23.3 K/mm3 (4.0-10.0)
[2024-03-31 07:48] LABS: POTASSIUM 5.5 mmol/L (3.5-5.1)
[2024-03-31 07:56] LABS: BLOOD UREA NITROGEN 32.4 mg/dL (7-18); CREATININE 1.9 mg/dL (0.55-1.3)
[2024-03-31 07:57] LABS: BILIRUBIN,TOTAL 0.3 mg/dL (0.2-1); CALCIUM 8.6 mg/dL (8.5-10.1); TOT PROT 6.8 g/dl (6.4-8.2)
[2024-03-31 07:58] LABS: MAGNESIUM 2.1 mg/dL (1.8-2.4)
[2024-03-31 07:59] LABS: PHOSPHOROUS 3.5 mg/dL (2.5-4.9)
[2024-03-31 08:17] LABS: ALBUMIN 2.5 g/dl (3.4-5.0)
[2024-03-31 09:03] LABS: ANISOCYTOSIS 0; MACROCYTOSIS 0; OVALOCYTE 1+
[2024-03-31] MEDS: INSULIN (NOVOLOG) ASPART 100 UNITS/ML 10ML VIAL SQ SCH (11:46)
[2024-03-31] MEDS: methylPREDNISolone NA SUCC 40 MG/1 ML VIAL IVPUSH SCH (17:11)
[2024-03-31] MEDS: SODIUM ZIRCONIUM CYCLOSILICATE (LOKELMA) 5 GM PACKET PO SCH (17:43)
[2024-03-31] MEDS ORDERED: ALBUTEROL SO4 2.5/IPRATROPIUM 0.5 INH SOL 3 ML VIAL.NEB. NEB PRN (20:52)
[2024-03-31] MEDS: ATORVASTATIN CA 40 MG TABLET (FP) PO SCH (21:36)
[2024-03-31] MEDS: POLYETHYLENE GLYCOL (HEALTHYLAX) 3350 17 GM PACKET PO SCH (21:36)
[2024-03-31] MEDS: INSULIN (LEVEMIR) 100 UNITS/ML UNITS SQ SCH (21:41)
[2024-03-31] MEDS: INSULIN ASPART SLIDING SCALE (NOVOLOG) 1 VIAL SQ SCH (21:43)
[2024-03-31] MEDS: LACTATED RINGERS SOLUTION 1,000 ML/1,000 ML INFUS.BAG IV SCH (21:47)
[2024-03-31] MEDS ORDERED: MUPIROCIN 2% TOPICAL OINTMENT FOR DECOLONIZATION NS SCH (22:00)
[2024-04-01] MEDS: methylPREDNISolone NA SUCC 40 MG/1 ML VIAL IVPUSH SCH ×2 (02:01→15:15)
[2024-04-01] MEDS: PIPERACILLIN/TAZOB 2.25 GM 2.25 GM in DEXTROSE 5%-WATER - 50 ML IVPB SCH (02:01)
[2024-04-01] MEDS: LORazepam 1 MG TABLET PO PRN (02:13)
[2024-04-01] MEDS: AZITHROMYCIN IVPB 500 MG/250 ML BAG IVPB SCH (06:09)
[2024-04-01] MEDS: PANTOPRAZOLE 40 MG TABLET PO SCH (06:09)
[2024-04-01] MEDS: INSULIN (NOVOLOG) ASPART 100 UNITS/ML 10ML VIAL SQ SCH (06:11)
[2024-04-01] MEDS: ALBUTEROL SO4 2.5/IPRATROPIUM 0.5 INH SOL 3 ML VIAL.NEB. NEB SCH (07:55)
[2024-04-01] MEDS: BUDESONIDE 0.25 MG/2ML INH SUSP VIAL NEB SCH (08:03)
[2024-04-01] MEDS: FOLIC ACID 1 MG TABLET (FP) PO SCH (10:08)
[2024-04-01] MEDS: ASCORBIC ACID 500 MG TABLET (FP) PO SCH (10:09)
[2024-04-01] MEDS: ASPIRIN 81 MG CHEWABLE TABLETS PO SCH (10:09)
[2024-04-01] MEDS: RIVAROXABAN 20 MG TABLET PO SCH (17:10)
[2024-04-02] MEDS ORDERED: PIPERACILLIN/TAZOBACTAM 2.25 GM VIAL IVPB ONE (03:28)
[2024-04-02] MEDS: PREGABALIN 75 MG CAPSULE PO SCH (09:40)
[2024-04-02] MEDS: predniSONE 10 MG TABLET (UD) PO SCH (09:40)
[2024-04-02 10:51] LABS: ALBUMIN 2.7 g/dl (3.4-5.0)
[2024-04-02 10:53] LABS: CALCIUM 8.4 mg/dL (8.5-10.1)
[2024-04-02 10:54] LABS: CREATININE 1.4 mg/dL (0.55-1.3)
[2024-04-02 10:55] LABS: BILIRUBIN,TOTAL 0.3 mg/dL (0.2-1)
[2024-04-02 10:56] LABS: TOT PROT 6.9 g/dl (6.4-8.2)
[2024-04-03 12:26] LABS: BASO % 0.1 % (0-2.0); EOS % 0.3 % (0-4.5); HEMATOCRIT 32.1 % (32.4-45.2); HEMOGLOBIN 10.2 GM/dL (10.7-15.3); MCH 25.4 pg (25.7-33.7); MCHC 31.8 g/dl (32.0-36.0); MEAN CELL VOLUME 80.1 fl (80-96); MEAN PLT VOLUME 9.4 fl (7.5-11.1); MONO % 5.4 % (3.8-10.2); NEUT % 73.2 % (42.8-82.8); PLATELET COUNT 175 10^3/uL (134-434); RBC 4.01 M/mm3 (3.60-5.2)
[2024-04-03 14:33] VITALS: BP 116/70; PULSE 91; RESP 17; TEMP 98.8
[2024-04-03 15:45] VITALS: BMI 23.4
== END 2024-04-03 17:53 | disposition home or self-care (01) | DRG 140 ==
LOC: JER 23:51 → JERBED 03-30 04:37 → JICU 03-30 06:35 → J5S 03-31 20:50
PROVIDERS: ADMIT Internal Medicine Pulmonary Disease; ATTEND Family Medicine
DX: J44.1 Chronic obstructive pulmonary disease with (acute) exacerbation (principal); N17.9 Acute kidney failure, unspecified; I12.9 Hypertensive chronic kidney disease with stage 1 through stage 4 chronic kidney disease, or unspecified chronic kidney disease; N18.9 Chronic kidney disease, unspecified; E11.22 Type 2 diabetes mellitus with diabetic chronic kidney disease; K21.9 Gastro-esophageal reflux disease without esophagitis; E11.65 Type 2 diabetes mellitus with hyperglycemia; E78.00 Pure hypercholesterolemia, unspecified; I48.91 Unspecified atrial fibrillation; E87.5 Hyperkalemia; G81.94 Hemiplegia, unspecified affecting left nondominant side; J45.901 Unspecified asthma with (acute) exacerbation; E11.21 Type 2 diabetes mellitus with diabetic nephropathy; K59.00 Constipation, unspecified; E11.51 Type 2 diabetes mellitus with diabetic peripheral angiopathy without gangrene; I25.10 Atherosclerotic heart disease of native coronary artery without angina pectoris; M54.50 Low back pain, unspecified; I42.8 Other cardiomyopathies; Z95.5 Presence of coronary angioplasty implant and graft; Z89.612 Acquired absence of left leg above knee
CPT/HCPCS: 0241U-QW; 36415; 36600; 71045-TC-FY; 80048; 80053; 81003; 82308; 82436; 82570; 82803; 82962; 83605; 83735; 83880; 84100; 84133; 84300; 84484; 84540; 85025; 85610; 85730; 86140; 87040; 87086; 87899; 93005; 93010; 93306-TC; 94010; 94640; 94660; 99285-25; J0131; J1644

== ENCOUNTER 2024-08-28 20:33 | Observation (INO) | payer OTHER ==
[2024-08-28] MEDS ORDERED: ACETAMINOPHEN INJECTION 100 ML ONE (21:38)
[2024-08-28] MEDS ORDERED: LIDOCAINE 5% TOPICAL PATCH ONE (21:39)
[2024-08-28] MEDS: SODIUM CHLORIDE 0.9% 500 ML INFUS.BAG IV ONE (21:59)
[2024-08-28] MEDS: ACETAMINOPHEN 1000 MG/100 ML BAG IVPB ONE (21:59)
[2024-08-28] MEDS: LIDOCAINE 5% TOPICAL PATCH TP ONE (21:59)
[2024-08-28 22:32] LABS: EPI CELLS >36 /uL (0-25.1); HYALINE CASTS 2 /uL (0-3.1); PH,URINE 5.5 (5.0-8.0); URINE APPEARANCE CLOUDY; URINE BACTERIA 983 /uL (0-1359); URINE BILIRUBIN NEGATIVE (NEGATIVE); URINE COLOR YELLOW; URINE GLUCOSE (UA) NEGATIVE (NEGATIVE); URINE KETONE 1+ (NEGATIVE); URINE LEUK ESTERASE NEGATIVE (NEGATIVE); URINE NITRITE NEGATIVE (NEGATIVE); URINE PROTEIN 1+ (NEGATIVE); URINE UROBILINOGEN 0.2 mg/dL (0.2-1.0); URINE WBC 29 /uL (0-25.8)
[2024-08-28 22:32] LABS: BASO % 0.9 % (0-2.0); EOS % 3.8 % (0-4.5); HEMATOCRIT 39.2 % (32.4-45.2); HEMOGLOBIN 12.1 GM/dL (10.7-15.3); LYMPH % 19.1 % (8-40); MCH 24.1 pg (25.7-33.7); MCHC 30.9 g/dl (32.0-36.0); MEAN PLT VOLUME 8.3 fl (7.5-11.1); MONO % 3.3 % (3.8-10.2); NEUT % 72.9 % (42.8-82.8); PLATELET COUNT 404 10^3/uL (134-434); RBC 5.02 M/mm3 (3.60-5.2); RDW 18.6 % (11.6-15.6)
[2024-08-28 22:34] LABS: URINE RBC 28.9 /uL (0-23.9)
[2024-08-28 22:50] LABS: POTASSIUM 4.6 mmol/L (3.5-5.1)
[2024-08-28 22:52] LABS: ALBUMIN 3.5 g/dl (3.4-5.0); CALCIUM 9.5 mg/dL (8.5-10.1)
[2024-08-28 22:53] LABS: BLOOD UREA NITROGEN 22.6 mg/dL (7-18)
[2024-08-28 22:56] LABS: CREATININE 1.2 mg/dL (0.55-1.3)
[2024-08-28 22:57] LABS: BILIRUBIN,TOTAL 0.6 mg/dL (0.2-1)
[2024-08-29] MEDS ORDERED: DOCUSATE SODIUM 100 MG CAPSULE (FP) PO PRN (00:53)
[2024-08-29] MEDS ORDERED: VANCOMYCIN 1 GM PREMIX (F) 1 GM/200 ML BAG ONE (00:54)
[2024-08-29] MEDS: VANCOMYCIN 1,000 MG in DEXTROSE 5%-WATER - 250 ML IVPB ONE (01:07)
[2024-08-29] MEDS: PIPERACILLIN/TAZOB 4.5 GM 4.5 GM in DEXTROSE 5%-WATER 100 ML IVPB ONE (03:30)
[2024-08-29] MEDS: LIDOCAINE PATCH REMOVAL MC SCH ×2 (03:31→15:51)
[2024-08-29] MEDS: PIPERACILLIN/TAZOB 4.5 GM 4.5 GM/100 ML BAG IVPB ONE (05:25)
[2024-08-29] MEDS: ACETAMINOPHEN 1000 MG/100 ML BAG IVPB ONE (05:27)
[2024-08-29] MEDS ORDERED: ALBUTEROL SO4 2.5/IPRATROPIUM 0.5 INH SOL 3 ML VIAL.NEB. NEB PRN (05:35)
[2024-08-29] MEDS: PREGABALIN 75 MG CAPSULE PO SCH (07:21)
[2024-08-29 08:25] LABS: BASO % 0.7 % (0-2.0); EOS % 6.4 % (0-4.5); HEMATOCRIT 34.5 % (32.4-45.2); HEMOGLOBIN 11.3 GM/dL (10.7-15.3); LYMPH % 28.1 % (8-40); MCH 25.1 pg (25.7-33.7); MCHC 32.6 g/dl (32.0-36.0); MEAN PLT VOLUME 8.4 fl (7.5-11.1); MONO % 4.7 % (3.8-10.2); NEUT % 60.1 % (42.8-82.8); PLATELET COUNT 315 10^3/uL (134-434); RBC 4.48 M/mm3 (3.60-5.2); RDW 18.3 % (11.6-15.6); WHITE BLOOD COUNT 8.6 K/mm3 (4.0-10.0)
[2024-08-29 08:35] LABS: POTASSIUM 4.4 mmol/L (3.5-5.1)
[2024-08-29 08:48] LABS: BLOOD UREA NITROGEN 18.6 mg/dL (7-18); CALCIUM 8.6 mg/dL (8.5-10.1)
[2024-08-29 08:52] LABS: PHOSPHOROUS 2.7 mg/dL (2.5-4.9)
[2024-08-29 09:00] LABS: INR 1.12 (0.83-1.09); PROTHROMBIN TIME (PATIENT) 12.6 SEC (9.7-13.0)
[2024-08-29] MEDS ORDERED: PIPERACILLIN/TAZOB 3.375 GM 50 ML IVPB SCH (09:00)
[2024-08-29 09:03] LABS: ACTIVATED PTT 31.7 SECONDS (25.2-36.5)
[2024-08-29] MEDS ORDERED: LIDOCAINE PATCH REMOVAL MC SCH (10:00)
[2024-08-29] MEDS: ASCORBIC ACID 500 MG TABLET (FP) PO SCH (10:05)
[2024-08-29] MEDS: RIVAROXABAN 20 MG TABLET PO SCH (10:05)
[2024-08-29] MEDS: ASPIRIN COATED 81 MG TABLET.EC PO SCH (10:05)
[2024-08-29] MEDS: METOPROLOL TARTRATE 50 MG TABLET (FP) PO SCH (10:06)
[2024-08-29] MEDS: ACETAMINOPHEN 500 MG TABLET (FP) PO PRN (12:42)
[2024-08-29] MEDS: oxyCODONE HCL 5 MG TABLET PO PRN (12:43)
[2024-08-29] MEDS: VANCOMYCIN/WATER FOR INJ (PEG) 750 MG/150 ML BAG IVPB SCH (14:00)
[2024-08-29] MEDS: PIPERACILLIN/TAZOB 3.375 GM 50 ML IVPB SCH (14:00)
[2024-08-29] MEDS: LIDOCAINE 4% PATCH TP SCH (21:28)
[2024-08-29] MEDS: DOCUSATE SODIUM 100 MG CAPSULE (FP) PO SCH (21:29)
[2024-08-29] MEDS: ATORVASTATIN CA 40 MG TABLET (FP) PO SCH (21:33)
[2024-08-30] MEDS: POLYETHYLENE GLYCOL (HEALTHYLAX) 3350 17 GM PACKET PO PRN (12:13)
[2024-08-30] MEDS: oxyCODONE HCL 5 MG TABLET PO PRN (16:30)
[2024-08-30] MEDS: LORazepam 1 MG TABLET PO PRN (16:34)
[2024-08-30] MEDS: VANCOMYCIN 750 MG in DEXTROSE 5%-WATER - 150 ML IVPB SCH (17:10)
[2024-08-30] MEDS: PIPERACILLIN/TAZOB 3.375 GM 3.375 GM in DEXTROSE 5%-WATER - 50 ML IVPB SCH (17:10)
[2024-08-30] MEDS: INSULIN ASPART SLIDING SCALE (NOVOLOG) 1 VIAL SQ SCH (17:25)
[2024-08-31] MEDS ORDERED: PIPERACILLIN/TAZOB 3.375 GM 50 ML IVPB SCH (09:00)
[2024-08-31 09:25] LABS: BASO % 0.5 % (0-2.0); EOS % 9.3 % (0-4.5); HEMATOCRIT 35.8 % (32.4-45.2); HEMOGLOBIN 11.1 GM/dL (10.7-15.3); MCH 24.1 pg (25.7-33.7); MEAN CELL VOLUME 77.6 fl (80-96); MEAN PLT VOLUME 8.6 fl (7.5-11.1); NEUT % 45.2 % (42.8-82.8); PLATELET COUNT 267 10^3/uL (134-434); RBC 4.62 M/mm3 (3.60-5.2); RDW 18.6 % (11.6-15.6); WHITE BLOOD COUNT 11.5 K/mm3 (4.0-10.0)
[2024-08-31 09:51] LABS: POTASSIUM 4.2 mmol/L (3.5-5.1)
[2024-08-31 10:04] LABS: CALCIUM 8.6 mg/dL (8.5-10.1)
[2024-08-31 10:06] LABS: ALBUMIN 2.6 g/dl (3.4-5.0)
[2024-08-31] MEDS: PANTOPRAZOLE 40 MG TABLET PO SCH (10:06)
[2024-08-31 10:08] LABS: CREATININE 1.4 mg/dL (0.55-1.3)
[2024-08-31 10:09] LABS: BILIRUBIN,TOTAL 0.3 mg/dL (0.2-1)
[2024-08-31 10:10] LABS: TOT PROT 6.8 g/dl (6.4-8.2)
[2024-08-31] MEDS ORDERED: VANCOMYCIN/WATER FOR INJ (PEG) 1,000 MG/200 ML BAG IVPB SCH (14:00)
[2024-08-31] MEDS: MULTIVITAMINS (DAILY MVI) TABLET (FP) PO SCH (14:04)
[2024-08-31 15:19] VITALS: BMI 23.3
[2024-09-02 16:14] VITALS: BP 105/56; PULSE 64; RESP 22; TEMP 98.4
== END 2024-09-02 10:18 ==
LOC: JER 20:33 → JERBED 08-29 00:53 → J4W 08-29 03:12
PROVIDERS: ADMIT Internal Medicine; ATTEND Family Medicine
PROC: 3E013VG Introduction of Insulin into Subcutaneous Tissue, Percutaneous Approach (ICD-10-PCS; principal; 2024-08-29)
DX: S31.000A Unspecified open wound of lower back and pelvis without penetration into retroperitoneum, initial encounter (principal); I48.91 Unspecified atrial fibrillation; X58.XXXA Exposure to other specified factors, initial encounter; G89.29 Other chronic pain; G81.91 Hemiplegia, unspecified affecting right dominant side; I25.2 Old myocardial infarction; Z86.73 Personal history of transient ischemic attack (TIA), and cerebral infarction without residual deficits; Z79.01 Long term (current) use of anticoagulants; Z89.619 Acquired absence of unspecified leg above knee; L30.8 Other specified dermatitis; M54.9 Dorsalgia, unspecified; N17.9 Acute kidney failure, unspecified; I73.9 Peripheral vascular disease, unspecified; E11.40 Type 2 diabetes mellitus with diabetic neuropathy, unspecified; K21.9 Gastro-esophageal reflux disease without esophagitis
CPT/HCPCS: 36415; 70450-TC; 71045-TC-FY; 72125-TC; 72131-TC; 72170-TC-FY; 73502-TC-LT-FY; 80048; 80053; 81003; 82962; 83036; 83735; 84100; 84484; 85025; 85610; 85730; 87070; 87076; 87077; 87081; 87086; 87186; 87205; 93005; 93010; 96365; 96366; 96367; 96372; 96375; 96376; 97116-GP; 97161-GP; 99285-25; E0186; G0378; J0131

== ENCOUNTER 2024-10-09 14:45 | Inpatient (IN) | payer OTHER ==
[2024-10-09 16:48] LABS: HEMOGLOBIN 11.7 GM/dL (10.7-15.3); RDW 19.8 % (11.6-15.6)
[2024-10-09 16:54] LABS: VENOUS BASE EXCESS -20.8 mmol/L (-2-2); VENOUS O2 SATURATION 32.4 % (70-80); VENOUS PCO2 30.8 mmHg (38-52)
[2024-10-09 16:56] LABS: VENOUS PH 7.057 (7.310-7.410)
[2024-10-09 16:56] LABS: INR 1.11 (0.83-1.09); PROTHROMBIN TIME (PATIENT) 12.1 SEC (9.7-13.0)
[2024-10-09 16:58] LABS: ACTIVATED PTT 31.2 SECONDS (25.2-36.5)
[2024-10-09 17:01] LABS: HEMATOCRIT 39.7 % (32.4-45.2); MCH 23.8 pg (25.7-33.7); MCHC 29.4 g/dl (32.0-36.0); MEAN PLT VOLUME 9.6 fl (7.5-11.1); PLATELET COUNT 355 10^3/uL (134-434); WHITE BLOOD COUNT 26.1 K/mm3 (4.0-10.0)
[2024-10-09 17:07] LABS: CHLORIDE 101 mmol/L (98-107); SODIUM 137 mmol/L (136-145)
[2024-10-09 17:08] LABS: BLOOD UREA NITROGEN 28.6 mg/dL (7-18); CALCIUM 9.5 mg/dL (8.5-10.1)
[2024-10-09] MEDS ORDERED: VANCOMYCIN 1,000 MG in DEXTROSE 5%-WATER - 250 ML IVPB ONE (17:09)
[2024-10-09 17:10] LABS: ALBUMIN 2.6 g/dl (3.4-5.0); ANION GAP 26 mmol/L (4-13); CO2 9 mmol/L (21-32)
[2024-10-09 17:13] LABS: CREATININE 2.2 mg/dL (0.55-1.3); SGOT/AST 16 U/L (15-37); SGPT/ALT 11 U/L (13-61)
[2024-10-09 17:14] LABS: BILIRUBIN,TOTAL 0.8 mg/dL (0.2-1); TOT PROT 8.2 g/dl (6.4-8.2)
[2024-10-09 17:15] LABS: ALK PHOS 241 U/L (45-117)
[2024-10-09 17:16] LABS: GLUCOSE,RANDOM 742 mg/dL (74-106)
[2024-10-09 17:20] LABS: LACTIC ACID 4.1 mmol/L (0.4-2.0)
[2024-10-09 17:28] LABS: MAGNESIUM 2.7 mg/dL (1.8-2.4)
[2024-10-09 17:32] LABS: PHOSPHOROUS 6.5 mg/dL (2.5-4.9)
[2024-10-09] MEDS ORDERED: ACETAMINOPHEN 325 MG TABLET (FP) ONE (17:36)
[2024-10-09] MEDS ORDERED: INSULIN REGULAR HUMAN 100 UNITS/ML *VIAL ONE (17:36)
[2024-10-09] MEDS ORDERED: ASPIRIN 81 MG CHEWABLE TABLETS ONE (17:36)
[2024-10-09] MEDS ORDERED: PIPERACILLIN/TAZOB 4.5 GM 4.5 GM/100 ML BAG IVPB ONE (17:36)
[2024-10-09] MEDS: SODIUM CHLORIDE 0.9% 500 ML INFUS.BAG IV ONE (17:46)
[2024-10-09] MEDS: ASPIRIN 81 MG CHEWABLE TABLETS PO ONE (17:46)
[2024-10-09] MEDS: ACETAMINOPHEN 325 MG TABLET (FP) PO ONE (17:46)
[2024-10-09] MEDS: PIPERACILLIN/TAZOB 4.5 GM 4.5 GM in DEXTROSE 5%-WATER 100 ML IVPB ONE (17:47)
[2024-10-09] MEDS: INSULIN REGULAR HUMAN 100 UNITS/ML *VIAL* (FOR IVP) IVPUSH ONE ×2 (17:56)
[2024-10-09 18:06] LABS: ANISOCYTOSIS 1+; MACROCYTOSIS 1+; TEAR DROP CELLS 1+
[2024-10-09] MEDS: INSULIN REGULAR 100 UNITS in SODIUM CHLORIDE 99 ML IVPB SCH (18:28)
[2024-10-09] MEDS: AZITHROMYCIN 250 MG TABLET PO ONE (18:30)
[2024-10-09] MEDS ORDERED: SODIUM CHLORIDE 1,000 ML IV SCH (19:30)
[2024-10-09] MEDS: SODIUM CHLORIDE 1,000 ML IV SCH (19:40)
[2024-10-09] MEDS: INSULIN REGULAR HUMAN 100 UNITS/ML *VIAL IVPUSH ONE (19:45)
[2024-10-09] MEDS ORDERED: CEFTRIAXONE 1 G/50 ML PREMIX 50 ML IVPB SCH (20:09)
[2024-10-09] MEDS ORDERED: VANCOMYCIN 1 GM PREMIX (F) 1 GM/200 ML BAG IVPB ONE (20:15)
[2024-10-09] MEDS: OSELTAMIVIR PHOSPHATE 75 MG CAPSULE PO ONE (20:18)
[2024-10-09] MEDS: CHLORHEXIDINE GLUCONATE 4% CLEANSER FOR DECOLONIZATION TP SCH (21:14)
[2024-10-09] MEDS: MUPIROCIN 2% TOPICAL OINTMENT FOR DECOLONIZATION NS SCH (21:14)
[2024-10-09] MEDS: ATORVASTATIN CA 20 MG TABLET (FP) PO SCH (21:17)
[2024-10-09] MEDS ORDERED: OSELTAMIVIR PHOSPHATE 75 MG CAPSULE PO SCH (22:00)
[2024-10-09 22:45] LABS: POTASSIUM 4.4 mmol/L (3.5-5.1)
[2024-10-09 22:46] LABS: CALCIUM 9.1 mg/dL (8.5-10.1)
[2024-10-09 22:48] LABS: BLOOD UREA NITROGEN 28.3 mg/dL (7-18)
[2024-10-09 22:50] LABS: CREATININE 2.2 mg/dL (0.55-1.3)
[2024-10-09] MEDS ORDERED: D5-1/2NS+40 MEQ KCL - 40 MEQ/1,000 ML INFUS.BAG IV SCH (23:00)
[2024-10-09] MEDS: D5-1/2NS+40 MEQ KCL - 40 MEQ/1,000 ML INFUS.BAG IV SCH (23:10)
[2024-10-10 02:38] LABS: EPI CELLS 8 /uL (0-25.1); HYALINE CASTS 0 /uL (0-3.1); PH,URINE 5.5 (5.0-8.0); URINE APPEARANCE CLEAR; URINE BACTERIA 18 /uL (0-1359); URINE BILIRUBIN NEGATIVE (NEGATIVE); URINE COLOR YELLOW; URINE GLUCOSE (UA) 3+ (NEGATIVE); URINE KETONE 4+ (NEGATIVE); URINE LEUK ESTERASE NEGATIVE (NEGATIVE); URINE NITRITE NEGATIVE (NEGATIVE); URINE PROTEIN 2+ (NEGATIVE); URINE RBC 14 /uL (0-23.9); URINE UROBILINOGEN 0.2 mg/dL (0.2-1.0); URINE WBC 2 /uL (0-25.8)
[2024-10-10 02:49] LABS: CHLORIDE 112 mmol/L (98-107); SODIUM 141 mmol/L (136-145)
[2024-10-10 02:51] LABS: CALCIUM 8.5 mg/dL (8.5-10.1)
[2024-10-10 02:52] LABS: ALBUMIN 2.3 g/dl (3.4-5.0); CO2 14 mmol/L (21-32); GLUCOSE,RANDOM 298 mg/dL (74-106); MAGNESIUM 2.2 mg/dL (1.8-2.4)
[2024-10-10 02:56] LABS: CREATININE 2.3 mg/dL (0.55-1.3); PHOSPHOROUS 2.3 mg/dL (2.5-4.9); SGOT/AST 27 U/L (15-37); SGPT/ALT 9 U/L (13-61)
[2024-10-10 02:58] LABS: BILIRUBIN,TOTAL 0.9 mg/dL (0.2-1); TOT PROT 7.4 g/dl (6.4-8.2)
[2024-10-10 03:28] LABS: ALK PHOS 199 U/L (45-117); ANION GAP 15 mmol/L (4-13); POTASSIUM 6.1 mmol/L (3.5-5.1)
[2024-10-10 03:41] LABS: LACTIC ACID 3.5 mmol/L (0.4-2.0)
[2024-10-10] MEDS: INSULIN REGULAR HUMAN 100 UNITS/ML *VIAL IVPUSH ONE (04:00)
[2024-10-10] MEDS: D5-1/2NS+20 MEQ KCL - 20 MEQ/1,000 ML INFUS.BAG IV SCH (04:00)
[2024-10-10] MEDS: LACTATED RINGERS SOLUTION 1,000 ML/1,000 ML INFUS.BAG IV STA (04:10)
[2024-10-10 07:35] LABS: HEMATOCRIT 30.4 % (32.4-45.2); HEMOGLOBIN 9.5 GM/dL (10.7-15.3); MCH 24.2 pg (25.7-33.7); MCHC 31.2 g/dl (32.0-36.0); MEAN CELL VOLUME 77.5 fl (80-96); MEAN PLT VOLUME 9.3 fl (7.5-11.1); PLATELET COUNT 260 10^3/uL (134-434); RBC 3.92 M/mm3 (3.60-5.2); RDW 18.5 % (11.6-15.6); WHITE BLOOD COUNT 13.1 K/mm3 (4.0-10.0)
[2024-10-10 07:57] LABS: POTASSIUM 5.9 mmol/L (3.5-5.1)
[2024-10-10 07:58] LABS: BLOOD UREA NITROGEN 28.6 mg/dL (7-18); CALCIUM 8.4 mg/dL (8.5-10.1)
[2024-10-10 08:02] LABS: PHOSPHOROUS 1.4 mg/dL (2.5-4.9)
[2024-10-10 08:18] LABS: LACTIC ACID 3.1 mmol/L (0.4-2.0)
[2024-10-10] MEDS ORDERED: INSULIN (LEVEMIR) 100 UNITS/ML UNITS SQ ONE ×2 (09:31→11:07)
[2024-10-10] MEDS: INSULIN (LEVEMIR) 100 UNITS/ML UNITS SQ SCH (09:39)
[2024-10-10] MEDS: ASPIRIN 81 MG CHEWABLE TABLETS PO SCH (09:40)
[2024-10-10] MEDS: INSULIN (NOVOLOG) ASPART 100 UNITS/ML 10ML VIAL SQ ONE (09:42)
[2024-10-10] MEDS: DEXTROSE 5%-NORMAL SALINE 1,000 ML IV SCH (09:43)
[2024-10-10] MEDS: OSELTAMIVIR PHOSPHATE 30 MG CAPSULE PO SCH (09:44)
[2024-10-10] MEDS: NAPH,MB-DB/K PH,MBDB POWDER PACKET PO SCH (09:44)
[2024-10-10] MEDS: CEFTRIAXONE 1 G/50 ML PREMIX 50 ML IVPB SCH (09:45)
[2024-10-10] MEDS: AZITHROMYCIN IVPB 500 MG/250 ML BAG IVPB SCH (09:46)
[2024-10-10] MEDS: METOPROLOL TARTRATE 50 MG TABLET (FP) PO SCH (09:46)
[2024-10-10] MEDS ORDERED: RIVAROXABAN 10 MG TABLET PO SCH (10:00)
[2024-10-10] MEDS ORDERED: ENOXAPARIN NA (PORCINE) 30 MG/0.3 ML DISP.SYRIN SQ SCH (10:00)
[2024-10-10] MEDS ORDERED: CEFTRIAXONE 1 G/50 ML PREMIX 50 ML IVPB SCH (10:00)
[2024-10-10 10:10] LABS: POTASSIUM 5.5 mmol/L (3.5-5.1)
[2024-10-10 10:13] LABS: CALCIUM 8.3 mg/dL (8.5-10.1)
[2024-10-10 10:14] LABS: BLOOD UREA NITROGEN 27.7 mg/dL (7-18)
[2024-10-10 10:16] LABS: ALBUMIN 1.9 g/dl (3.4-5.0)
[2024-10-10 10:17] LABS: CREATININE 1.9 mg/dL (0.55-1.3)
[2024-10-10 10:19] LABS: BILIRUBIN,TOTAL 0.8 mg/dL (0.2-1); TOT PROT 5.9 g/dl (6.4-8.2)
[2024-10-10] MEDS: SODIUM PHOSPHATE - 30 MM in SODIUM CHLORIDE 250 ML IVPB ONE (11:00)
[2024-10-10] MEDS ORDERED: INSULIN ASPART SLIDING SCALE (NOVOLOG) 1 VIAL SQ ONE (11:07)
[2024-10-10] MEDS: ACETAMINOPHEN 1000 MG/100 ML BAG IVPB PRN (11:11)
[2024-10-10] MEDS: LACTATED RINGERS SOLUTION 1,000 ML/1,000 ML INFUS.BAG IV SCH ×2 (12:41→20:01)
[2024-10-10] MEDS: VANCOMYCIN 1 GM PREMIX (F) 1 GM/200 ML BAG IVPB ONE (13:24)
[2024-10-10 13:26] LABS: CALCIUM 7.7 mg/dL (8.5-10.1)
[2024-10-10 13:27] LABS: BLOOD UREA NITROGEN 24.8 mg/dL (7-18)
[2024-10-10 13:30] LABS: CREATININE 1.7 mg/dL (0.55-1.3); PHOSPHOROUS 2.2 mg/dL (2.5-4.9)
[2024-10-10] MEDS: INSULIN ASPART SLIDING SCALE (NOVOLOG) 1 VIAL SQ SCH ×2 (14:35→18:14)
[2024-10-10] MEDS: RIVAROXABAN 20 MG TABLET PO SCH (17:53)
[2024-10-10] MEDS: AZITHROMYCIN IVPB 250 MG in DEXTROSE 5%-WATER - 250 ML IVPB SCH (18:15)
[2024-10-10] MEDS ORDERED: DEXTROSE 50%-WATER - 25 GM/50 ML VIAL IVPUSH PRN (22:59)
[2024-10-11 09:37] LABS: BASO % 0.4 % (0-2.0); EOS % 0.5 % (0-4.5); HEMATOCRIT 27.3 % (32.4-45.2); HEMOGLOBIN 8.6 GM/dL (10.7-15.3); LYMPH % 10.3 % (8-40); MCH 23.9 pg (25.7-33.7); MCHC 31.4 g/dl (32.0-36.0); MEAN CELL VOLUME 76.2 fl (80-96); MEAN PLT VOLUME 9.6 fl (7.5-11.1); MONO % 4.2 % (3.8-10.2); NEUT % 84.6 % (42.8-82.8); PLATELET COUNT 220 10^3/uL (134-434); RBC 3.58 M/mm3 (3.60-5.2); RDW 18.7 % (11.6-15.6); WHITE BLOOD COUNT 12.9 K/mm3 (4.0-10.0)
[2024-10-11] MEDS: VANCOMYCIN 1 GM PREMIX (F) 1 GM/200 ML BAG IVPB ONE (09:43)
[2024-10-11] MEDS: PIPERACILLIN/TAZOB 2.25 GM 2.25 GM/50 ML BAG IVPB SCH (09:55)
[2024-10-11] MEDS ORDERED: AZITHROMYCIN IVPB 250 MG in DEXTROSE 5%-WATER - 250 ML IVPB SCH (10:00)
[2024-10-11 10:02] LABS: POTASSIUM 4.1 mmol/L (3.5-5.1)
[2024-10-11 10:04] LABS: CALCIUM 7.5 mg/dL (8.5-10.1)
[2024-10-11 10:05] LABS: BLOOD UREA NITROGEN 18.5 mg/dL (7-18); MAGNESIUM 1.4 mg/dL (1.8-2.4)
[2024-10-11 10:07] LABS: PHOSPHOROUS 2.7 mg/dL (2.5-4.9)
[2024-10-11 10:09] LABS: BILIRUBIN,TOTAL 0.5 mg/dL (0.2-1); CREATININE 1.1 mg/dL (0.55-1.3)
[2024-10-11 10:10] LABS: ALBUMIN 1.5 g/dl (3.4-5.0)
[2024-10-11] MEDS: ACETAMINOPHEN 1000 MG/100 ML BAG IVPB PRN (13:00)
[2024-10-11] MEDS: LORazepam 2 MG/ML SDV VIAL IVPUSH PRN (13:11)
[2024-10-11] MEDS: COLLAGENASE CLOSTRIDIUM HIST. 30 GRAMS TUBE TP SCH (13:12)
[2024-10-11] MEDS: MAGNESIUM 2GM/50ML STERILE WATER IVPB IVPB ONE (15:14)
[2024-10-11] MEDS: LACTATED RINGERS SOLUTION 1,000 ML/1,000 ML INFUS.BAG IV SCH (15:19)
[2024-10-11] MEDS: PIPERACILLIN/TAZOB 2.25 GM 2.25 GM in DEXTROSE 5%-WATER - 50 ML IVPB SCH (15:20)
[2024-10-11] MEDS ORDERED: DEXTROSE 50%-WATER 25 GM/50 ML DISP.SYRIN IVPUSH PRN (18:13)
[2024-10-11] MEDS ORDERED: INSULIN ASPART SLIDING SCALE (NOVOLOG) 1 VIAL SQ ONE (18:37)
[2024-10-11] MEDS: OSELTAMIVIR PHOSPHATE 30 MG CAPSULE PO SCH (21:33)
[2024-10-11] MEDS: ATORVASTATIN CA 20 MG TABLET (FP) PO SCH (21:33)
[2024-10-11] MEDS: VANCOMYCIN/WATER 1250 MG 1,250 MG/250 ML BAG IVPB SCH (21:33)
[2024-10-12] MEDS: INSULIN ASPART SLIDING SCALE (NOVOLOG) 1 VIAL SQ SCH (00:04)
[2024-10-12] MEDS: ASPIRIN 81 MG CHEWABLE TABLETS PO SCH (10:31)
[2024-10-12] MEDS: METOPROLOL TARTRATE 50 MG TABLET (FP) PO SCH (10:32)
[2024-10-12] MEDS: LORazepam 2 MG/ML SDV VIAL IVPUSH PRN (10:43)
[2024-10-12 12:03] LABS: BASO % 0.2 % (0-2.0); EOS % 0.7 % (0-4.5); HEMATOCRIT 27.5 % (32.4-45.2); HEMOGLOBIN 8.5 GM/dL (10.7-15.3); LYMPH % 13.8 % (8-40); MCH 23.4 pg (25.7-33.7); MCHC 30.9 g/dl (32.0-36.0); MEAN CELL VOLUME 75.6 fl (80-96); MEAN PLT VOLUME 9.2 fl (7.5-11.1); MONO % 6.2 % (3.8-10.2); NEUT % 79.1 % (42.8-82.8); PLATELET COUNT 266 10^3/uL (134-434); RBC 3.64 M/mm3 (3.60-5.2); WHITE BLOOD COUNT 12.3 K/mm3 (4.0-10.0)
[2024-10-12 12:21] LABS: POTASSIUM 3.4 mmol/L (3.5-5.1)
[2024-10-12 12:28] LABS: BLOOD UREA NITROGEN 13.7 mg/dL (7-18); CALCIUM 7.4 mg/dL (8.5-10.1); MAGNESIUM 1.5 mg/dL (1.8-2.4)
[2024-10-12 12:29] LABS: ALBUMIN 1.5 g/dl (3.4-5.0)
[2024-10-12 12:31] LABS: CREATININE 1.1 mg/dL (0.55-1.3)
[2024-10-12 12:33] LABS: BILIRUBIN,TOTAL 1.5 mg/dL (0.2-1); TOT PROT 5.2 g/dl (6.4-8.2)
[2024-10-12] MEDS: POTASSIUM CHLORIDE ORAL LIQUID 20 MEQ/15 ML PO ONE (17:09)
[2024-10-12] MEDS: MAGNESIUM 2GM/50ML STERILE WATER IVPB IVPB ONE (17:09)
[2024-10-12] MEDS: RIVAROXABAN 20 MG TABLET PO SCH (17:09)
[2024-10-12] MEDS: LACTATED RINGERS SOLUTION 1,000 ML/1,000 ML INFUS.BAG IV SCH (17:13)
[2024-10-12] MEDS: COLLAGENASE CLOSTRIDIUM HIST. 30 GRAMS TUBE TP SCH (17:19)
[2024-10-12] MEDS: IRON SUCROSE INJECTION 100 MG in SODIUM CHLORIDE 95 ML IVPB ONE (17:58)
[2024-10-12] MEDS: SODIUM CHLORIDE 0.9% 500 ML INFUS.BAG IV ONE (19:40)
[2024-10-13 09:25] LABS: HEMATOCRIT 24.3 % (32.4-45.2); HEMOGLOBIN 7.8 GM/dL (10.7-15.3); MCH 24.1 pg (25.7-33.7); MEAN CELL VOLUME 75.3 fl (80-96); MEAN PLT VOLUME 9.2 fl (7.5-11.1); PLATELET COUNT 248 10^3/uL (134-434); RBC 3.23 M/mm3 (3.60-5.2); RDW 18.3 % (11.6-15.6); WHITE BLOOD COUNT 10.9 K/mm3 (4.0-10.0)
[2024-10-13 09:48] LABS: POTASSIUM 3.4 mmol/L (3.5-5.1)
[2024-10-13 09:55] LABS: BLOOD UREA NITROGEN 12.1 mg/dL (7-18); CALCIUM 7.1 mg/dL (8.5-10.1)
[2024-10-13 09:56] LABS: ALBUMIN 1.3 g/dl (3.4-5.0); MAGNESIUM 1.5 mg/dL (1.8-2.4)
[2024-10-13 10:00] LABS: BILIRUBIN,TOTAL 1.3 mg/dL (0.2-1); TOT PROT 4.8 g/dl (6.4-8.2)
[2024-10-13] MEDS: KETOROLAC TROMETHAMINE 30 MG/1 ML VIAL IVPUSH ONE (11:18)
[2024-10-13] MEDS: IRON SUCROSE INJECTION 200 MG in SODIUM CHLORIDE 100 ML IVPB ONE (12:01)
[2024-10-13] MEDS: PREGABALIN 75 MG CAPSULE PO SCH (17:34)
[2024-10-13] MEDS: POTASSIUM CHLORIDE ORAL LIQUID 20 MEQ/15 ML PO ONE (17:34)
[2024-10-13] MEDS: POLYETHYLENE GLYCOL (HEALTHYLAX) 3350 17 GM PACKET PO SCH (21:33)
[2024-10-14] MEDS: PANTOPRAZOLE 40 MG TABLET PO SCH (09:56)
[2024-10-14 10:15] LABS: HEMATOCRIT 28.4 % (32.4-45.2); HEMOGLOBIN 8.6 GM/dL (10.7-15.3); MCH 23.2 pg (25.7-33.7); MCHC 30.3 g/dl (32.0-36.0); MEAN CELL VOLUME 76.5 fl (80-96); MEAN PLT VOLUME 9.1 fl (7.5-11.1); PLATELET COUNT 323 10^3/uL (134-434); RBC 3.72 M/mm3 (3.60-5.2); RDW 18.1 % (11.6-15.6); WHITE BLOOD COUNT 15.4 K/mm3 (4.0-10.0)
[2024-10-14 10:17] LABS: INR 1.51 (0.83-1.09); PROTHROMBIN TIME (PATIENT) 16.6 SEC (9.7-13.0)
[2024-10-14 10:35] LABS: POTASSIUM 4.2 mmol/L (3.5-5.1)
[2024-10-14 10:38] LABS: BLOOD UREA NITROGEN 10.9 mg/dL (7-18); MAGNESIUM 1.8 mg/dL (1.8-2.4)
[2024-10-14 10:41] LABS: ALBUMIN 1.6 g/dl (3.4-5.0); CREATININE 1.1 mg/dL (0.55-1.3)
[2024-10-14 10:43] LABS: BILIRUBIN,TOTAL 0.8 mg/dL (0.2-1); TOT PROT 5.9 g/dl (6.4-8.2)
[2024-10-14 11:56] LABS: ANISOCYTOSIS 1+; MACROCYTOSIS 0; TARGET CELLS 1+
[2024-10-14] MEDS: ASCORBIC ACID 500 MG TABLET (FP) PO SCH (13:28)
[2024-10-14] MEDS: MULTIVITAMINS (DAILY MVI) TABLET (FP) PO SCH (13:28)
[2024-10-14] MEDS: AMINO ACIDS/PROTEIN HYDROLYS 30 ML LIQUID.PKT PO SCH (17:26)
[2024-10-15] MEDS: COSYNTROPIN 0.25 MG VIAL IVPUSH ONE (07:00)
[2024-10-15] MEDS: SODIUM CHLORIDE 1,000 ML IV SCH (12:11)
[2024-10-15] MEDS: ACETAMINOPHEN 325 MG TABLET (FP) PO PRN (12:12)
[2024-10-15] MEDS: ALBUTEROL SO4 2.5/IPRATROPIUM 0.5 INH SOL 3 ML VIAL.NEB. NEB SCH (14:50)
[2024-10-16] MEDS: oxyCODONE HCL 5 MG TABLET PO PRN (09:55)
[2024-10-16 13:07] LABS: HEMATOCRIT 23.9 % (32.4-45.2); HEMOGLOBIN 7.2 GM/dL (10.7-15.3); MCH 23.2 pg (25.7-33.7); MCHC 30.2 g/dl (32.0-36.0); MEAN PLT VOLUME 8.5 fl (7.5-11.1); PLATELET COUNT 486 10^3/uL (134-434); RBC 3.11 M/mm3 (3.60-5.2); RDW 18.1 % (11.6-15.6); WHITE BLOOD COUNT 21.7 K/mm3 (4.0-10.0)
[2024-10-16] MEDS: CEFTRIAXONE 2 GM-D5W BAG 2 GM/50 ML BAG IVPB SCH (14:42)
[2024-10-16] MEDS: FUROSEMIDE 40 MG/4 ML INJECTABLE VIAL IVPUSH ONE (22:39)
[2024-10-17] MEDS: diphenhydrAMINE HCL 25 MG CAPSULE (FP) PO ONE (01:04)
[2024-10-17 07:58] LABS: POTASSIUM 3.7 mmol/L (3.5-5.1)
[2024-10-17 08:03] LABS: ALBUMIN 1.5 g/dl (3.4-5.0); BLOOD UREA NITROGEN 19.8 mg/dL (7-18); CALCIUM 7.3 mg/dL (8.5-10.1)
[2024-10-17 08:07] LABS: CREATININE 1.2 mg/dL (0.55-1.3)
[2024-10-17 08:08] LABS: BILIRUBIN,TOTAL 0.3 mg/dL (0.2-1); TOT PROT 5.8 g/dl (6.4-8.2)
[2024-10-17 08:55] LABS: HEMATOCRIT 29.6 % (32.4-45.2); HEMOGLOBIN 9.4 GM/dL (10.7-15.3); MCH 25.3 pg (25.7-33.7); MCHC 31.6 g/dl (32.0-36.0); MEAN CELL VOLUME 80.1 fl (80-96); MEAN PLT VOLUME 8.1 fl (7.5-11.1); PLATELET COUNT 457 10^3/uL (134-434); RBC 3.69 M/mm3 (3.60-5.2); RDW 18.5 % (11.6-15.6)
[2024-10-17 09:31] LABS: ANISOCYTOSIS 1+; MACROCYTOSIS 0
[2024-10-19 10:11] LABS: HEMATOCRIT 30.6 % (32.4-45.2); HEMOGLOBIN 9.7 GM/dL (10.7-15.3); MCH 25.4 pg (25.7-33.7); MCHC 31.5 g/dl (32.0-36.0); MEAN CELL VOLUME 80.6 fl (80-96); MEAN PLT VOLUME 8.2 fl (7.5-11.1); NEUT % 76.7 % (42.8-82.8); PLATELET COUNT 439 10^3/uL (134-434); RDW 18.9 % (11.6-15.6); WHITE BLOOD COUNT 17.7 K/mm3 (4.0-10.0)
[2024-10-19 10:12] LABS: BASO % 0.3 % (0-2.0); EOS % 0.8 % (0-4.5); LYMPH % 17.3 % (8-40); MONO % 4.9 % (3.8-10.2)
[2024-10-19 10:15] LABS: POTASSIUM 4.2 mmol/L (3.5-5.1)
[2024-10-19 10:19] LABS: CALCIUM 8.1 mg/dL (8.5-10.1)
[2024-10-19 10:20] LABS: ALBUMIN 1.5 g/dl (3.4-5.0); BLOOD UREA NITROGEN 20.2 mg/dL (7-18)
[2024-10-19 10:23] LABS: CREATININE 1.3 mg/dL (0.55-1.3)
[2024-10-19 10:25] LABS: BILIRUBIN,TOTAL 0.3 mg/dL (0.2-1); TOT PROT 6.4 g/dl (6.4-8.2)
[2024-10-19] MEDS: VANCOMYCIN 1 GM PREMIX (F) 1 GM/200 ML BAG IVPB SCH (21:01)
[2024-10-20] MEDS: FAMOTIDINE 20 MG/50 ML IVPB 20 MG/50 ML MG IVPB ONE (12:54)
[2024-10-20] MEDS: ONDANSETRON *ODT* 4 MG TABLET SL PRN (16:07)
[2024-10-20] MEDS: MAG HYDROX/AL HYDROX/SIMETH 30 ML UNIT-DOSE CUP PO SCH (17:35)
[2024-10-21 10:09] LABS: HEMATOCRIT 30.1 % (32.4-45.2); HEMOGLOBIN 9.8 GM/dL (10.7-15.3); MCH 26.4 pg (25.7-33.7); MCHC 32.4 g/dl (32.0-36.0); MEAN CELL VOLUME 81.3 fl (80-96); MEAN PLT VOLUME 8.4 fl (7.5-11.1); PLATELET COUNT 381 10^3/uL (134-434); RBC 3.71 M/mm3 (3.60-5.2); RDW 19.5 % (11.6-15.6); WHITE BLOOD COUNT 11.1 K/mm3 (4.0-10.0)
[2024-10-21 10:52] LABS: POTASSIUM 4.6 mmol/L (3.5-5.1)
[2024-10-21 10:55] LABS: ALBUMIN 1.6 g/dl (3.4-5.0); BLOOD UREA NITROGEN 20.1 mg/dL (7-18); CALCIUM 8.3 mg/dL (8.5-10.1)
[2024-10-21 10:58] LABS: CREATININE 1.1 mg/dL (0.55-1.3)
[2024-10-21 11:00] LABS: BILIRUBIN,TOTAL 0.3 mg/dL (0.2-1); TOT PROT 6.9 g/dl (6.4-8.2)
[2024-10-21] MEDS: PHENOL 177 ML SPRAY BOTTLE MM PRN (16:24)
[2024-10-21] MEDS: BENZOCAINE/MENTHOL (CHLORASEPTIC ) LOZENGE MM SCH (16:24)
[2024-10-21] MEDS: VANCOMYCIN 1 GM PREMIX (F) 1 GM/200 ML BAG IVPB SCH (19:28)
[2024-10-22] MEDS: INSULIN (LEVEMIR) 100 UNITS/ML UNITS SQ SCH (00:12)
[2024-10-22] MEDS ORDERED: ALBUTEROL SO4 HFA INHALER IH PRN (14:28)
[2024-10-23 18:42] LABS: CALCIUM 8.5 mg/dL (8.5-10.1)
[2024-10-23 18:43] LABS: BLOOD UREA NITROGEN 37.4 mg/dL (7-18)
[2024-10-23 18:46] LABS: CREATININE 1.5 mg/dL (0.55-1.3)
[2024-10-23] MEDS: SODIUM CHLORIDE 0.45% 1,000 ML IV SCH (21:40)
[2024-10-23] MEDS: SODIUM ZIRCONIUM CYCLOSILICATE (LOKELMA) 5 GM PACKET PO SCH (21:41)
[2024-10-23] MEDS: INSULIN (LEVEMIR) 100 UNITS/ML UNITS SQ SCH (21:44)
[2024-10-24 10:00] LABS: EOS % 1.1 % (0-4.5); HEMATOCRIT 31.3 % (32.4-45.2); LYMPH % 25.6 % (8-40); MCH 26.4 pg (25.7-33.7); MCHC 32.1 g/dl (32.0-36.0); MEAN CELL VOLUME 82.4 fl (80-96); MEAN PLT VOLUME 9.2 fl (7.5-11.1); MONO % 7.7 % (3.8-10.2); NEUT % 64.6 % (42.8-82.8); PLATELET COUNT 313 10^3/uL (134-434); RDW 19.7 % (11.6-15.6); WHITE BLOOD COUNT 10.4 K/mm3 (4.0-10.0)
[2024-10-24 10:28] LABS: POTASSIUM 5.6 mmol/L (3.5-5.1)
[2024-10-24 10:32] LABS: CALCIUM 8.6 mg/dL (8.5-10.1)
[2024-10-24 10:33] LABS: BLOOD UREA NITROGEN 42.9 mg/dL (7-18)
[2024-10-24 10:36] LABS: CREATININE 1.3 mg/dL (0.55-1.3)
[2024-10-24 10:38] LABS: BILIRUBIN,TOTAL 0.3 mg/dL (0.2-1); TOT PROT 7.8 g/dl (6.4-8.2)
[2024-10-24 10:43] LABS: ALBUMIN 2.1 g/dl (3.4-5.0)
[2024-10-24] MEDS: MECLIZINE HCL 12.5 MG TABLET PO PRN (11:11)
[2024-10-25 09:24] LABS: BASO % 1.1 % (0-2.0); EOS % 1.9 % (0-4.5); HEMATOCRIT 30.5 % (32.4-45.2); HEMOGLOBIN 9.9 GM/dL (10.7-15.3); LYMPH % 24.1 % (8-40); MCH 26.9 pg (25.7-33.7); MCHC 32.3 g/dl (32.0-36.0); MEAN CELL VOLUME 83.2 fl (80-96); MEAN PLT VOLUME 9.3 fl (7.5-11.1); MONO % 9.2 % (3.8-10.2); NEUT % 63.7 % (42.8-82.8); PLATELET COUNT 297 10^3/uL (134-434); RBC 3.67 M/mm3 (3.60-5.2); WHITE BLOOD COUNT 7.7 K/mm3 (4.0-10.0)
[2024-10-25 09:29] LABS: POTASSIUM 5.6 mmol/L (3.5-5.1)
[2024-10-25 09:33] LABS: BLOOD UREA NITROGEN 42.4 mg/dL (7-18)
[2024-10-25 09:36] LABS: CALCIUM 8.9 mg/dL (8.5-10.1); CREATININE 1.5 mg/dL (0.55-1.3)
[2024-10-25 12:25] VITALS: BMI 27.6
[2024-10-25] MEDS: oxyCODONE HCL 5 MG TABLET PO PRN (15:33)
[2024-10-25] MEDS: LORazepam 1 MG TABLET PO PRN (15:33)
[2024-10-26 11:17] LABS: BASO % 1.2 % (0-2.0); EOS % 2.5 % (0-4.5); HEMATOCRIT 31.1 % (32.4-45.2); HEMOGLOBIN 9.9 GM/dL (10.7-15.3); LYMPH % 19.6 % (8-40); MCH 26.7 pg (25.7-33.7); MCHC 31.9 g/dl (32.0-36.0); MEAN CELL VOLUME 83.6 fl (80-96); MEAN PLT VOLUME 9.4 fl (7.5-11.1); MONO % 7.7 % (3.8-10.2); PLATELET COUNT 292 10^3/uL (134-434); RBC 3.72 M/mm3 (3.60-5.2); RDW 19.9 % (11.6-15.6); WHITE BLOOD COUNT 8.3 K/mm3 (4.0-10.0)
[2024-10-26 11:27] LABS: CHLORIDE 100 mmol/L (98-107); SODIUM 134 mmol/L (136-145)
[2024-10-26 11:29] LABS: ALBUMIN 2.1 g/dl (3.4-5.0); CALCIUM 8.6 mg/dL (8.5-10.1)
[2024-10-26 11:30] LABS: BLOOD UREA NITROGEN 46.8 mg/dL (7-18); CO2 32 mmol/L (21-32); GLUCOSE,RANDOM 349 mg/dL (74-106)
[2024-10-26 11:32] LABS: CREATININE 1.4 mg/dL (0.55-1.3)
[2024-10-26 11:33] LABS: SGOT/AST 12 U/L (15-37); SGPT/ALT 14 U/L (13-61)
[2024-10-26 11:34] LABS: BILIRUBIN,TOTAL 0.2 mg/dL (0.2-1)
[2024-10-26 11:35] LABS: ANION GAP 2 mmol/L (4-13); POTASSIUM 6.2 mmol/L (3.5-5.1); TOT PROT 7.8 g/dl (6.4-8.2)
[2024-10-26 11:36] LABS: ALK PHOS 151 U/L (45-117)
[2024-10-26] MEDS: VANCOMYCIN/WATER FOR INJ (PEG) 1,000 MG/200 ML BAG IVPB ONE (15:57)
[2024-10-26 16:43] LABS: POTASSIUM 5.7 mmol/L (3.5-5.1)
[2024-10-26 16:45] LABS: CALCIUM 8.2 mg/dL (8.5-10.1)
[2024-10-26 16:46] LABS: BLOOD UREA NITROGEN 51.1 mg/dL (7-18)
[2024-10-26 16:49] LABS: CREATININE 1.4 mg/dL (0.55-1.3)
[2024-10-27] MEDS: SODIUM ZIRCONIUM CYCLOSILICATE (LOKELMA) 5 GM PACKET PO SCH (07:41)
[2024-10-27 09:10] LABS: BASO % 1.3 % (0-2.0); EOS % 3.1 % (0-4.5); HEMOGLOBIN 9.6 GM/dL (10.7-15.3); LYMPH % 24.5 % (8-40); MCH 26.5 pg (25.7-33.7); MCHC 31.9 g/dl (32.0-36.0); MEAN PLT VOLUME 9.5 fl (7.5-11.1); MONO % 8.5 % (3.8-10.2); NEUT % 62.6 % (42.8-82.8); PLATELET COUNT 301 10^3/uL (134-434); RBC 3.61 M/mm3 (3.60-5.2); RDW 19.6 % (11.6-15.6); WHITE BLOOD COUNT 8.2 K/mm3 (4.0-10.0)
[2024-10-27 09:59] LABS: POTASSIUM 5.1 mmol/L (3.5-5.1)
[2024-10-27 10:01] LABS: ALBUMIN 2.2 g/dl (3.4-5.0); BLOOD UREA NITROGEN 45.1 mg/dL (7-18); CALCIUM 8.3 mg/dL (8.5-10.1)
[2024-10-27 10:05] LABS: CREATININE 1.2 mg/dL (0.55-1.3)
[2024-10-27 10:06] LABS: BILIRUBIN,TOTAL 0.2 mg/dL (0.2-1); TOT PROT 7.8 g/dl (6.4-8.2)
[2024-10-27] MEDS: diphenhydrAMINE HCL 25 MG CAPSULE (FP) PO ONE (21:50)
[2024-10-28] MEDS: FLUCONAZOLE 150 MG TABLET PO ONE (06:37)
[2024-10-28] MEDS ORDERED: MICONAZOLE NITRATE 100 MG SUPP SUPP.VAG PV ONE (08:15)
[2024-10-28] MEDS: MICONAZOLE NITRATE 2% VAGINAL CREAM 45 GM TUBE PV ONE (10:10)
[2024-10-28] MEDS: VANCOMYCIN 1 GM PREMIX (F) 1 GM/200 ML BAG IVPB ONE (13:41)
[2024-10-28 14:53] VITALS: RESP 18
[2024-10-28] MEDS: BENZOCAINE/MENTH/CETYLPYRD CL 1 EACH LOZENGE MM SCH (17:52)
[2024-10-28] MEDS: MICONAZOLE NITRATE 2% VAGINAL CREAM 45 GM TUBE VG SCH (21:51)
[2024-10-29 04:22] VITALS: BP 113/72; PULSE 83; TEMP 98.3
[2024-10-29] MEDS ORDERED: DOXYCYCLINE HYCLATE 100 MG CAPSULE PO SCH (18:00)
== END 2024-10-29 16:00 | disposition home health service (06) | DRG 720 ==
LOC: JER 14:45 → JERBED 17:52 → JICU 18:51 → J6S 10-11 18:54
PROVIDERS: ADMIT Family Medicine; ATTEND Family Medicine
DX: A41.02 Sepsis due to Methicillin resistant Staphylococcus aureus (principal); E11.10 Type 2 diabetes mellitus with ketoacidosis without coma; J10.00 Influenza due to other identified influenza virus with unspecified type of pneumonia; N17.9 Acute kidney failure, unspecified; L89.152 Pressure ulcer of sacral region, stage 2; L89.222 Pressure ulcer of left hip, stage 2; I69.351 Hemiplegia and hemiparesis following cerebral infarction affecting right dominant side; I48.91 Unspecified atrial fibrillation; E87.5 Hyperkalemia; E11.51 Type 2 diabetes mellitus with diabetic peripheral angiopathy without gangrene; E11.22 Type 2 diabetes mellitus with diabetic chronic kidney disease; E11.40 Type 2 diabetes mellitus with diabetic neuropathy, unspecified; I25.10 Atherosclerotic heart disease of native coronary artery without angina pectoris; G89.29 Other chronic pain; I12.9 Hypertensive chronic kidney disease with stage 1 through stage 4 chronic kidney disease, or unspecified chronic kidney disease; N18.9 Chronic kidney disease, unspecified; E86.0 Dehydration; D50.9 Iron deficiency anemia, unspecified; R79.89 Other specified abnormal findings of blood chemistry
CPT/HCPCS: 0241U-QW; 36415; 36430; 71045-TC-FY; 74176-TC; 76705-TC; 80048; 80053; 81003; 82010; 82024; 82272; 82533; 82550; 82728; 82803; 82962; 82977; 83036; 83540; 83550; 83605; 83690; 83735; 83880; 83930; 84100; 84466; 84484; 85025; 85027; 85610; 85730; 86704; 86708; 86803; 86850; 86900; 86901; 86922; 87040; 87070; 87086; 87186; 87205; 87340; 87517; 93005; 93010; 93306-TC; 94640; 99285-25; G0480; J0131; J0834; J0878; J1756; P9058; Q0162

== ENCOUNTER 2024-10-31 22:12 | Inpatient (IN) | payer OTHER ==
[2024-10-31 23:12] LABS: BASO % 1.1 % (0-2.0); LYMPH % 29.4 % (8-40); MCH 26.6 pg (25.7-33.7); MCHC 30.9 g/dl (32.0-36.0); MEAN CELL VOLUME 86.1 fl (80-96); MEAN PLT VOLUME 9.6 fl (7.5-11.1); MONO % 6.4 % (3.8-10.2); NEUT % 58.1 % (42.8-82.8); PLATELET COUNT 237 10^3/uL (134-434); RBC 3.37 M/mm3 (3.60-5.2); RDW 20.5 % (11.6-15.6); WHITE BLOOD COUNT 11.2 K/mm3 (4.0-10.0)
[2024-10-31 23:19] LABS: INR 1.18 (0.83-1.09)
[2024-10-31] MEDS: SODIUM CHLORIDE 0.9% 500 ML INFUS.BAG IV ONE (23:21)
[2024-10-31 23:22] LABS: ACTIVATED PTT 35.5 SECONDS (25.2-36.5)
[2024-10-31 23:37] LABS: ANISOCYTOSIS 1+; MACROCYTOSIS 0
[2024-10-31] MEDS ORDERED: ACETAMINOPHEN INJECTION 100 ML ONE (23:38)
[2024-10-31 23:40] LABS: POTASSIUM 5.4 mmol/L (3.5-5.1)
[2024-10-31] MEDS: ACETAMINOPHEN 1000 MG/100 ML BAG IVPB ONE (23:40)
[2024-10-31 23:43] LABS: ALBUMIN 2.4 g/dl (3.4-5.0)
[2024-10-31 23:46] LABS: CREATININE 1.9 mg/dL (0.55-1.3)
[2024-10-31 23:47] LABS: BILIRUBIN,TOTAL 0.9 mg/dL (0.2-1); TOT PROT 8.1 g/dl (6.4-8.2)
[2024-11-01 00:09] LABS: MAGNESIUM 2.5 mg/dL (1.8-2.4)
[2024-11-01 00:14] LABS: LACTIC ACID 2.4 mmol/L (0.4-2.0)
[2024-11-01] MEDS: SODIUM CHLORIDE 0.9% 500 ML INFUS.BAG IV ONE (01:10)
[2024-11-01] MEDS: VANCOMYCIN HCL 1,500 MG in DEXTROSE 5%-WATER - 500 ML IVPB ONE (01:14)
[2024-11-01 01:49] LABS: EPI CELLS >36 /uL (0-25.1); HYALINE CASTS 6 /uL (0-3.1); PH,URINE 5.5 (5.0-8.0); URINE APPEARANCE TURBID; URINE BACTERIA 3830 /uL (0-1359); URINE BILIRUBIN 1+ (NEGATIVE); URINE COLOR DK YELLOW; URINE GLUCOSE (UA) NEGATIVE (NEGATIVE); URINE KETONE NEGATIVE (NEGATIVE); URINE LEUK ESTERASE 1+ (NEGATIVE); URINE NITRITE NEGATIVE (NEGATIVE); URINE PROTEIN 2+ (NEGATIVE); URINE WBC 126 /uL (0-25.8)
[2024-11-01] MEDS: LACTATED RINGERS SOLUTION 1,000 ML/1,000 ML INFUS.BAG IV SCH (02:15)
[2024-11-01] MEDS: PANTOPRAZOLE SODIUM 40 MG VIAL IVPUSH SCH (02:15)
[2024-11-01] MEDS: LACTATED RINGERS SOLUTION 1000 ML INFUS.BAG IV ONE (02:15)
[2024-11-01 02:20] LABS: BASO % 0.9 % (0-2.0); EOS % 5.6 % (0-4.5); HEMATOCRIT 24.4 % (32.4-45.2); HEMOGLOBIN 7.8 GM/dL (10.7-15.3); LYMPH % 34.5 % (8-40); MCH 27.2 pg (25.7-33.7); MCHC 31.8 g/dl (32.0-36.0); MEAN CELL VOLUME 85.5 fl (80-96); MEAN PLT VOLUME 9.6 fl (7.5-11.1); MONO % 7.5 % (3.8-10.2); NEUT % 51.5 % (42.8-82.8); PLATELET COUNT 166 10^3/uL (134-434); RBC 2.86 M/mm3 (3.60-5.2); RDW 20.6 % (11.6-15.6); WHITE BLOOD COUNT 8.2 K/mm3 (4.0-10.0)
[2024-11-01 02:48] LABS: POTASSIUM 4.8 mmol/L (3.5-5.1)
[2024-11-01 02:50] LABS: BLOOD UREA NITROGEN 28.4 mg/dL (7-18); CALCIUM 7.2 mg/dL (8.5-10.1)
[2024-11-01 02:53] LABS: CREATININE 1.7 mg/dL (0.55-1.3)
[2024-11-01] MEDS ORDERED: PIPERACILLIN/TAZOB 2.25 GM 2.25 GM in DEXTROSE 5%-WATER - 50 ML IVPB SCH (03:00)
[2024-11-01] MEDS: FENTANYL CITRATE/PF 50 MCG/ML VIAL IVPUSH ONE ×2 (03:07→23:15)
[2024-11-01] MEDS: PIPERACILLIN/TAZOB 2.25 GM 2.25 GM/50 ML BAG IVPB SCH ×2 (03:20→17:14)
[2024-11-01 03:41] LABS: URINE RBC 215.5 /uL (0-23.9)
[2024-11-01 03:42] LABS: YEAST NONE SEEN (NEGATIVE)
[2024-11-01 07:27] LABS: BASO % 0.9 % (0-2.0); EOS % 7.4 % (0-4.5); HEMATOCRIT 26.5 % (32.4-45.2); HEMOGLOBIN 8.3 GM/dL (10.7-15.3); LYMPH % 39.1 % (8-40); MCH 27.1 pg (25.7-33.7); MCHC 31.4 g/dl (32.0-36.0); MEAN CELL VOLUME 86.3 fl (80-96); MEAN PLT VOLUME 9.8 fl (7.5-11.1); MONO % 8.8 % (3.8-10.2); NEUT % 43.8 % (42.8-82.8); PLATELET COUNT 166 10^3/uL (134-434); RBC 3.06 M/mm3 (3.60-5.2); RDW 21.3 % (11.6-15.6); WHITE BLOOD COUNT 6.9 K/mm3 (4.0-10.0)
[2024-11-01] MEDS: MUPIROCIN 2% TOPICAL OINTMENT FOR DECOLONIZATION NS SCH (09:27)
[2024-11-01] MEDS: CHLORHEXIDINE GLUCONATE 4% CLEANSER FOR DECOLONIZATION TP SCH (22:18)
[2024-11-01] MEDS: DEXTROSE 5%-LACTATED RINGERS 1,000 ML IV SCH (23:14)
[2024-11-02] MEDS: FENTANYL CITRATE/PF 50 MCG/ML VIAL IVPUSH ONE ×2 (10:38→18:44)
[2024-11-02 10:53] LABS: BASO % 1.9 % (0-2.0); EOS % 9.3 % (0-4.5); HEMATOCRIT 28.6 % (32.4-45.2); HEMOGLOBIN 8.5 GM/dL (10.7-15.3); LYMPH % 33.3 % (8-40); MCH 26.5 pg (25.7-33.7); MCHC 29.5 g/dl (32.0-36.0); MEAN CELL VOLUME 89.7 fl (80-96); MEAN PLT VOLUME 9.4 fl (7.5-11.1); MONO % 5.5 % (3.8-10.2); PLATELET COUNT 184 10^3/uL (134-434); RBC 3.19 M/mm3 (3.60-5.2); RDW 20.8 % (11.6-15.6); WHITE BLOOD COUNT 5.9 K/mm3 (4.0-10.0)
[2024-11-02 11:09] LABS: POTASSIUM 4.9 mmol/L (3.5-5.1)
[2024-11-02 11:16] LABS: BLOOD UREA NITROGEN 13.9 mg/dL (7-18); MAGNESIUM 1.9 mg/dL (1.8-2.4)
[2024-11-02 11:19] LABS: CREATININE 1.4 mg/dL (0.55-1.3); PHOSPHOROUS 3.8 mg/dL (2.5-4.9)
[2024-11-02 11:21] LABS: BILIRUBIN,TOTAL 0.4 mg/dL (0.2-1)
[2024-11-02 11:30] LABS: CALCIUM 8.4 mg/dL (8.5-10.1)
[2024-11-02] MEDS: LORazepam 2 MG/ML SDV VIAL IVPUSH PRN (15:42)
[2024-11-02 16:00] LABS: HEMATOCRIT 24.3 % (32.4-45.2); HEMOGLOBIN 7.7 GM/dL (10.7-15.3); MCH 27.6 pg (25.7-33.7); MCHC 31.9 g/dl (32.0-36.0); MEAN CELL VOLUME 86.4 fl (80-96); MEAN PLT VOLUME 9.5 fl (7.5-11.1); PLATELET COUNT 151 10^3/uL (134-434); RBC 2.81 M/mm3 (3.60-5.2); RDW 20.5 % (11.6-15.6)
[2024-11-03] MEDS: ACETAMINOPHEN 1000 MG/100 ML BAG IVPB PRN (00:12)
[2024-11-03 07:17] LABS: BASO % 0.8 % (0-2.0); EOS % 9.3 % (0-4.5); HEMATOCRIT 32.3 % (32.4-45.2); HEMOGLOBIN 10.3 GM/dL (10.7-15.3); LYMPH % 36.8 % (8-40); MCH 27.9 pg (25.7-33.7); MEAN CELL VOLUME 87.1 fl (80-96); MEAN PLT VOLUME 9.1 fl (7.5-11.1); MONO % 7.5 % (3.8-10.2); NEUT % 45.6 % (42.8-82.8); PLATELET COUNT 158 10^3/uL (134-434); RDW 18.9 % (11.6-15.6)
[2024-11-03 07:39] LABS: POTASSIUM 4.5 mmol/L (3.5-5.1)
[2024-11-03 07:49] LABS: BLOOD UREA NITROGEN 9.3 mg/dL (7-18)
[2024-11-03 07:50] LABS: MAGNESIUM 1.5 mg/dL (1.8-2.4)
[2024-11-03 07:52] LABS: CREATININE 1.3 mg/dL (0.55-1.3)
[2024-11-03 07:54] LABS: BILIRUBIN,TOTAL 0.7 mg/dL (0.2-1); TOT PROT 7.1 g/dl (6.4-8.2)
[2024-11-03] MEDS: MAGNESIUM 2GM/50ML STERILE WATER IVPB IVPB ONE (08:30)
[2024-11-03 14:23] VITALS: BMI 25.3
[2024-11-03] MEDS ORDERED: ALBUTEROL SO4 HFA INHALER IH PRN (15:59)
[2024-11-03] MEDS ORDERED: BISACODYL 5 MG TABLET.DR (FP) PO ONE (16:00)
[2024-11-03] MEDS: FAMOTIDINE 20 MG TABLET PO SCH (16:34)
[2024-11-03] MEDS: oxyCODONE HCL 5 MG TABLET PO PRN (17:06)
[2024-11-03] MEDS: VANCOMYCIN ORAL SOLUTION 125 MG/2.5 ML PO SCH (17:36)
[2024-11-03] MEDS: BISACODYL 5 MG TABLET.DR (FP) PO ONE (17:36)
[2024-11-03] MEDS: PEG 3350/NA SULF BICARB CL/KCL 4000 ML SOLN.RECON PO ONE (17:36)
[2024-11-03] MEDS: ATORVASTATIN CA 20 MG TABLET (FP) PO SCH (21:08)
[2024-11-04] MEDS: VANCOMYCIN HCL 125 MG CAPSULE (RESTRICTED TO ID ONLY) PO SCH (00:14)
[2024-11-04] MEDS: DEXTROSE 5%-LACTATED RINGERS 1,000 ML IV SCH (03:04)
[2024-11-04 09:10] LABS: INR 1.07 (0.83-1.09); PROTHROMBIN TIME (PATIENT) 11.8 SEC (9.7-13.0)
[2024-11-04 09:12] LABS: BASO % 0.8 % (0-2.0); EOS % 8.2 % (0-4.5); HEMATOCRIT 31.8 % (32.4-45.2); HEMOGLOBIN 10.4 GM/dL (10.7-15.3); MCH 28.4 pg (25.7-33.7); MCHC 32.7 g/dl (32.0-36.0); MEAN CELL VOLUME 86.7 fl (80-96); MEAN PLT VOLUME 9.2 fl (7.5-11.1); MONO % 7.1 % (3.8-10.2); NEUT % 49.9 % (42.8-82.8); PLATELET COUNT 180 10^3/uL (134-434); RBC 3.67 M/mm3 (3.60-5.2); RDW 18.9 % (11.6-15.6); WHITE BLOOD COUNT 5.7 K/mm3 (4.0-10.0)
[2024-11-04 09:56] LABS: POTASSIUM 4.5 mmol/L (3.5-5.1)
[2024-11-04 09:57] LABS: ALBUMIN 2.2 g/dl (3.4-5.0); BLOOD UREA NITROGEN 5.5 mg/dL (7-18); CALCIUM 8.5 mg/dL (8.5-10.1)
[2024-11-04 09:58] LABS: MAGNESIUM 1.6 mg/dL (1.8-2.4)
[2024-11-04 10:00] LABS: CREATININE 1.1 mg/dL (0.55-1.3)
[2024-11-04] MEDS ORDERED: PANTOPRAZOLE SODIUM 40 MG VIAL IVPUSH SCH (10:00)
[2024-11-04 10:02] LABS: BILIRUBIN,TOTAL 0.3 mg/dL (0.2-1); TOT PROT 7.4 g/dl (6.4-8.2)
[2024-11-04] MEDS: LORazepam 2 MG/ML SDV VIAL IVPUSH PRN (13:42)
[2024-11-04] MEDS: METOPROLOL TARTRATE 50 MG TABLET (FP) PO SCH (13:43)
[2024-11-04] MEDS: MAGNESIUM 2GM/50ML STERILE WATER IVPB IVPB ONE (18:15)
[2024-11-05 07:08] VITALS: RESP 18
[2024-11-05 07:37] LABS: BASO % 1.2 % (0-2.0); EOS % 7.7 % (0-4.5); HEMATOCRIT 32.2 % (32.4-45.2); HEMOGLOBIN 10.5 GM/dL (10.7-15.3); LYMPH % 35.3 % (8-40); MCH 28.3 pg (25.7-33.7); MCHC 32.6 g/dl (32.0-36.0); MEAN CELL VOLUME 86.7 fl (80-96); MEAN PLT VOLUME 8.9 fl (7.5-11.1); MONO % 8.1 % (3.8-10.2); NEUT % 47.7 % (42.8-82.8); PLATELET COUNT 166 10^3/uL (134-434); RBC 3.71 M/mm3 (3.60-5.2); RDW 18.8 % (11.6-15.6); WHITE BLOOD COUNT 5.8 K/mm3 (4.0-10.0)
[2024-11-05 07:47] LABS: HEMOGLOBIN 10.6 GM/dL (10.7-15.3); MCH 28.9 pg (25.7-33.7); MCHC 33.2 g/dl (32.0-36.0); MEAN CELL VOLUME 87.1 fl (80-96); MEAN PLT VOLUME 8.8 fl (7.5-11.1); PLATELET COUNT 170 10^3/uL (134-434); RBC 3.68 M/mm3 (3.60-5.2); RDW 18.8 % (11.6-15.6); WHITE BLOOD COUNT 5.5 K/mm3 (4.0-10.0)
[2024-11-05 07:54] LABS: POTASSIUM 3.9 mmol/L (3.5-5.1)
[2024-11-05 07:59] LABS: CALCIUM 8.3 mg/dL (8.5-10.1)
[2024-11-05 08:00] LABS: ALBUMIN 2.1 g/dl (3.4-5.0); BLOOD UREA NITROGEN 5.7 mg/dL (7-18); MAGNESIUM 1.6 mg/dL (1.8-2.4)
[2024-11-05 08:02] LABS: CREATININE 1.1 mg/dL (0.55-1.3)
[2024-11-05 08:04] LABS: BILIRUBIN,TOTAL 0.3 mg/dL (0.2-1)
[2024-11-05] MEDS: MAGNESIUM OXIDE 400 MG TABLET (FP) PO ONE (11:42)
[2024-11-05 18:49] VITALS: BP 152/80; PULSE 77; TEMP 99.1
== END 2024-11-05 18:53 | disposition home or self-care (01) | DRG 253 ==
LOC: JER 22:12 → JERBED 11-01 00:31 → JICU 11-01 01:42 → J7W 11-04 02:31
PROVIDERS: ADMIT Internal Medicine Pulmonary Disease; ATTEND Family Medicine
PROC: 30233N1 Transfusion of Nonautologous Red Blood Cells into Peripheral Vein, Percutaneous Approach (ICD-10-PCS; 2024-11-02)
PROC: 0DJD8ZZ Inspection of Lower Intestinal Tract, Via Natural or Artificial Opening Endoscopic (ICD-10-PCS; 2024-11-04)
PROC: 0DB68ZX Excision of Stomach, Via Natural or Artificial Opening Endoscopic, Diagnostic (ICD-10-PCS; principal; 2024-11-04 11:00)
DX: K92.2 Gastrointestinal hemorrhage, unspecified (principal); L89.150 Pressure ulcer of sacral region, unstageable; N17.9 Acute kidney failure, unspecified; E11.40 Type 2 diabetes mellitus with diabetic neuropathy, unspecified; I42.9 Cardiomyopathy, unspecified; I69.354 Hemiplegia and hemiparesis following cerebral infarction affecting left non-dominant side; L89.220 Pressure ulcer of left hip, unstageable; E87.5 Hyperkalemia; E78.5 Hyperlipidemia, unspecified; I12.9 Hypertensive chronic kidney disease with stage 1 through stage 4 chronic kidney disease, or unspecified chronic kidney disease; I25.10 Atherosclerotic heart disease of native coronary artery without angina pectoris; I73.9 Peripheral vascular disease, unspecified; J44.9 Chronic obstructive pulmonary disease, unspecified; K52.9 Noninfective gastroenteritis and colitis, unspecified; N18.9 Chronic kidney disease, unspecified; N39.0 Urinary tract infection, site not specified; K64.8 Other hemorrhoids; R74.01 Elevation of levels of liver transaminase levels; D64.9 Anemia, unspecified
CPT/HCPCS: 0241U-QW; 36415; 36430; 71045-TC-FY; 74174-TC; 76705-TC; 80048; 80053; 81003; 82272; 82962; 83605; 83735; 84100; 84484; 85025; 85027; 85610; 85730; 86850; 86900; 86901; 87040; 87086; 87186; 87324; 87449; 87493; 88305-TC; 88342-TC; 93005; 93010; 94761; 99291; J0131; P9058

== ENCOUNTER 2024-12-27 15:39 | Emergency (ER) | payer OTHER ==
[2024-12-27 16:12] VITALS: RESP 16; TEMP 99; BMI 22.8
[2024-12-27] MEDS ORDERED: ACETAMINOPHEN INJECTION 100 ML ONE (17:31)
[2024-12-27] MEDS: ACETAMINOPHEN 1000 MG/100 ML BAG IVPB ONE (18:14)
[2024-12-27 18:34] LABS: ABSOLUTE IMMATURE GRANULOCYTES 0.03 x10^3/uL (0.0-0.031); BASOPHILS # 0.14 x10^3/uL (0.01-0.08); EOSINOPHIL % 3.7 % (0.7-5.8); EOSINOPHILS # 0.45 x10^3/uL (0.04-0.36); HEMATOCRIT 42.2 % (34.1-44.9); MCHC 30.8 g/dl (32.2-35.5); MEAN CELL VOLUME 88.5 fl (79.4-94.8); MEAN PLT VOLUME 10.8 fl (9.4-12.3); MONOCYTE # 0.67 x10^3/uL (0.24-0.86); MONOCYTE % 5.5 % (4.7-12.5); PLATELET COUNT 367 x10^3/uL (182-369); RDW 15.9 % (12.3-16.6); VENOUS BASE EXCESS -3.4 mmol/L (-2-2); VENOUS O2 SATURATION 76.7 % (70-80); VENOUS PCO2 39.1 mmHg (38-52); VENOUS PH 7.362 (7.310-7.410)
[2024-12-27 18:37] LABS: EPI CELLS >36 /uL (0-25.1); HYALINE CASTS 0 /uL (0-3.1); URINE APPEARANCE CLEAR; URINE BACTERIA 4680 /uL (0-1359); URINE BILIRUBIN NEGATIVE (NEGATIVE); URINE COLOR YELLOW; URINE GLUCOSE (UA) NEGATIVE (NEGATIVE); URINE KETONE NEGATIVE (NEGATIVE); URINE LEUK ESTERASE TRACE (NEGATIVE); URINE NITRITE NEGATIVE (NEGATIVE); URINE PROTEIN NEGATIVE (NEGATIVE); URINE UROBILINOGEN 0.2 mg/dL (0.2-1.0); URINE WBC 18 /uL (0-25.8)
[2024-12-27 18:57] LABS: POTASSIUM 4.8 mmol/L (3.5-5.1)
[2024-12-27 19:01] LABS: ALBUMIN 2.7 g/dl (3.4-5.0); BLOOD UREA NITROGEN 23.8 mg/dL (7-18); CALCIUM 8.9 mg/dL (8.5-10.1)
[2024-12-27 19:04] LABS: CREATININE 1.1 mg/dL (0.55-1.3)
[2024-12-27 19:06] LABS: BILIRUBIN,TOTAL 0.4 mg/dL (0.2-1); TOT PROT 7.2 g/dl (6.4-8.2)
[2024-12-27] MEDS ORDERED: METOCLOPRAMIDE HCL 10 MG TABLET (FP) PO ONE (20:34)
[2024-12-27] MEDS: METOCLOPRAMIDE HCL 10 MG TABLET (FP) PO ONE (20:38)
[2024-12-27] MEDS ORDERED: MORPHINE SULFATE 2 MG/ML SYRINGE ONE (20:50)
[2024-12-27] MEDS: morphine CARPU-JECT 2 MG/1 ML DISP.SYRIN IVPUSH ONE (20:54)
[2024-12-27 20:59] LABS: HCG,QUALITATIVE URINE Negative
[2024-12-28 00:50] VITALS: BP 121/78; PULSE 72
== END 2024-12-28 01:20 | disposition home or self-care (01) ==
LOC: JER 15:39
DX: E11.649 Type 2 diabetes mellitus with hypoglycemia without coma (principal); R10.31 Right lower quadrant pain; R07.89 Other chest pain; R51.9 Headache, unspecified; R11.0 Nausea
CPT/HCPCS: 36415; 71045-TC-FY; 74177-TC; 80053; 81003; 82010; 82803; 82962; 83690; 83735; 84484; 84703; 85025; 87086; 87186; 93005; 93010; 99285-25; J0131; Q9967

== ENCOUNTER 2025-03-03 18:43 | Observation (INO) | payer OTHER ==
[2025-03-03 19:15] VITALS: RESP 18; BMI 24.0
[2025-03-03] MEDS ORDERED: ACETAMINOPHEN INJECTION 100 ML ONE (20:10)
[2025-03-03 21:50] LABS: ABSOLUTE IMMATURE GRANULOCYTES 0.08 x10^3/uL (0.0-0.031); BASOPHILS # 0.05 x10^3/uL (0.01-0.08); EOSINOPHIL % 4.0 % (0.7-5.8); EOSINOPHILS # 0.46 x10^3/uL (0.04-0.36); MCHC 31.3 g/dl (32.2-35.5); MEAN CELL VOLUME 85.0 fl (79.4-94.8); MEAN PLT VOLUME 11.6 fl (9.4-12.3); MONOCYTE # 0.51 x10^3/uL (0.24-0.86); MONOCYTE % 4.5 % (4.7-12.5); RDW 16.0 % (12.3-16.6)
[2025-03-03] MEDS: ACETAMINOPHEN 1000 MG/100 ML BAG IVPB ONE (21:55)
[2025-03-03 21:59] LABS: INR 1.54 (0.83-1.09); PROTHROMBIN TIME (PATIENT) 16.9 SEC (9.7-13.0)
[2025-03-03 22:02] LABS: ACTIVATED PTT 39.7 SECONDS (25.2-36.5)
[2025-03-03 22:12] LABS: CO2 23.0 mmol/L (21-32)
[2025-03-03 22:13] LABS: GLUCOSE,RANDOM 194.0 mg/dL (74-106)
[2025-03-03 22:16] LABS: CREATININE 1.6 mg/dL (0.55-1.3); SGOT/AST 26.0 U/L (15-37); SGPT/ALT 17.0 U/L (13-61)
[2025-03-03 22:17] LABS: TOT PROT 7.4 g/dl (6.4-8.2)
[2025-03-03 22:18] LABS: ALK PHOS 219.0 U/L (45-117)
[2025-03-03] MEDS: INSULIN DRIP - PLEASE ORDER UNDER SETS NR ONE (22:27)
[2025-03-03] MEDS ORDERED: DEXTROSE 50%-WATER 25 GM/50 ML DISP.SYRIN ONE (22:32)
[2025-03-03] MEDS ORDERED: FUROSEMIDE 40 MG/4 ML INJECTABLE VIAL ONE (22:32)
[2025-03-03] MEDS ORDERED: CALCIUM GLUC IN NACL, ISO-OSM 1 GM/50 ML BAG IVPB ONE (22:32)
[2025-03-03] MEDS ORDERED: INSULIN REGULAR HUMAN 100 UNITS/ML *VIAL ONE (22:32)
[2025-03-03] MEDS: INSULIN REGULAR HUMAN 100 UNITS/ML *VIAL IVPUSH ONE (22:53)
[2025-03-03] MEDS: FUROSEMIDE 40 MG/4 ML INJECTABLE VIAL IVPUSH ONE (22:53)
[2025-03-03] MEDS: CALCIUM GLUCONATE 10% - 1,000 MG/10 ML VIAL IVPUSH ONE (22:53)
[2025-03-03] MEDS: DEXTROSE 50%-WATER - 25 GM/50 ML VIAL IVPUSH ONE (22:53)
[2025-03-03] MEDS: SODIUM CHLORIDE 0.9% 500 ML INFUS.BAG IV ONE (22:53)
[2025-03-03] MEDS ORDERED: SODIUM ZIRCONIUM CYCLOSILICATE (LOKELMA) 10 GM PACKET ONE (23:32)
[2025-03-03] MEDS ORDERED: MORPHINE SULFATE 2 MG/ML SYRINGE ONE (23:32)
[2025-03-04] MEDS: SODIUM ZIRCONIUM CYCLOSILICATE (LOKELMA) 5 GM PACKET PO ONE (00:15)
[2025-03-04 00:20] LABS: HCV DIAGNOSTIC IN-HOUSE W/RFLX NON-REACTIVE (NONREACTIVE)
[2025-03-04 00:27] LABS: HIV INTERPRETATION NEGATIVE (NEGATIVE)
[2025-03-04 01:04] LABS: CO2 24.0 mmol/L (21-32)
[2025-03-04 01:05] LABS: GLUCOSE,RANDOM 141.0 mg/dL (74-106)
[2025-03-04 01:08] LABS: CREATININE 1.6 mg/dL (0.55-1.3)
[2025-03-04 01:51] VITALS: TEMP 98.5
[2025-03-04] MEDS: SODIUM CHLORIDE 0.9% 500 ML INFUS.BAG IV ONE (02:29)
[2025-03-04] MEDS: HEPARIN INFUSION - 25,000 UNITS/500 ML INFUS.BAG IVPB SCH (02:29)
[2025-03-04 02:31] VITALS: BP 108/58; PULSE 68
[2025-03-04] MEDS ORDERED: SODIUM ZIRCONIUM CYCLOSILICATE (LOKELMA) 5 GM PACKET PO SCH (10:00)
== END 2025-03-04 02:50 | disposition short-term general hospital (02) ==
LOC: JER 18:43 → JERBED 19:35
PROVIDERS: ADMIT Family Medicine; ATTEND Family Medicine
DX: I21.4 Non-ST elevation (NSTEMI) myocardial infarction (principal); I11.9 Hypertensive heart disease without heart failure; I48.91 Unspecified atrial fibrillation; R77.8 Other specified abnormalities of plasma proteins; R07.9 Chest pain, unspecified; Z95.5 Presence of coronary angioplasty implant and graft; K21.9 Gastro-esophageal reflux disease without esophagitis; E78.00 Pure hypercholesterolemia, unspecified; F41.9 Anxiety disorder, unspecified
CPT/HCPCS: 36415; 71046-TC-FY; 80048; 80053; 82962; 84484; 85025; 85610; 85730; 86803; 86850; 86900; 86901; 87389; 93005; 93010; 96361; 96365; 96375; 96376; 99285-25; G0378; J1644

== ENCOUNTER 2025-04-01 10:28 | Emergency (ER) | payer OTHER ==
[2025-04-01 11:41] VITALS: TEMP 99; BMI 24.0
[2025-04-01 12:27] VITALS: BP 129/74; PULSE 88; RESP 16
== END 2025-04-01 12:37 | disposition home or self-care (01) ==
LOC: JER 10:28
DX: K59.00 Constipation, unspecified (principal); R10.32 Left lower quadrant pain; K64.4 Residual hemorrhoidal skin tags
CPT/HCPCS: 93005; 93010; 99283-25

== ENCOUNTER 2025-05-01 18:55 | Inpatient (IN) | payer OTHER ==
[2025-05-01] MEDS: SODIUM CHLORIDE 0.9% 500 ML INFUS.BAG IV ONE (20:10)
[2025-05-01] MEDS ORDERED: AZITHROMYCIN 500 MG TABLET ONE (20:14)
[2025-05-01] MEDS ORDERED: PIPERACILLIN/TAZOB 4.5 GM 4.5 GM/100 ML BAG IVPB ONE (20:14)
[2025-05-01] MEDS ORDERED: ALBUTEROL SO4 2.5/IPRATROPIUM 0.5 INH SOL 3 ML VIAL.NEB. NEB ONE (20:14)
[2025-05-01] MEDS ORDERED: methylPREDNISolone NA SUCC 125 MG/2 ML VIAL ONE (20:14)
[2025-05-01] MEDS ORDERED: VANCOMYCIN 1 GM PREMIX (F) 1 GM/200 ML BAG ONE (20:15)
[2025-05-01 20:16] LABS: BG HCT 34.0 % (32.4-45.2); VENOUS BASE EXCESS -1.0 mmol/L (-2-2); VENOUS O2 SATURATION 22.7 % (70-80); VENOUS PCO2 54.4 mmHg (38-52); VENOUS PH 7.298 (7.310-7.410)
[2025-05-01 20:17] LABS: MCHC 30.1 g/dl (32.2-35.5); MEAN CELL VOLUME 86.5 fl (79.4-94.8); RDW 17.2 % (12.3-16.6)
[2025-05-01] MEDS: ALBUTEROL SO4 2.5/IPRATROPIUM 0.5 INH SOL 3 ML VIAL.NEB. NEB SCH (20:30)
[2025-05-01] MEDS: PIPERACILLIN/TAZOB 4.5 GM 4.5 GM in DEXTROSE 5%-WATER 100 ML IVPB ONE (20:32)
[2025-05-01] MEDS: methylPREDNISolone NA SUCC 125 MG/2 ML VIAL IVPB ONE (20:32)
[2025-05-01] MEDS: AZITHROMYCIN 250 MG TABLET PO ONE (20:32)
[2025-05-01] MEDS ORDERED: MORPHINE SULFATE 2 MG/ML SYRINGE ONE (21:28)
[2025-05-01] MEDS: morphine CARPU-JECT 2 MG/1 ML DISP.SYRIN IVPUSH ONE (21:30)
[2025-05-01] MEDS: VANCOMYCIN 1,000 MG in DEXTROSE 5%-WATER - 200 ML IVPB ONE (21:31)
[2025-05-01] MEDS: VANCOMYCIN 1,000 MG in DEXTROSE 5%-WATER - 250 ML IVPB ONE (21:32)
[2025-05-01 21:37] LABS: GLUCOSE,RANDOM 200 mg/dL (74-106)
[2025-05-01 21:39] LABS: CO2 23 mmol/L (21-32); TOT PROT 8.3 g/dl (6.4-8.2)
[2025-05-01 21:43] LABS: CREATININE 1.49 mg/dL (0.55-1.3); SGOT/AST 16 U/L (5-34)
[2025-05-01 21:46] LABS: HIV INTERPRETATION NEGATIVE (NEGATIVE)
[2025-05-01 21:47] LABS: HCV DIAGNOSTIC IN-HOUSE W/RFLX NON-REACTIVE (NONREACTIVE)
[2025-05-01 22:07] LABS: ALK PHOS 245 U/L (40-150); SGPT/ALT < 6 U/L (0-55)
[2025-05-01 22:28] LABS: N-TERMINAL BNP 2339.4 pg/mL (0-299.9)
[2025-05-02 02:44] LABS: GLUCOSE,RANDOM 387.0 mg/dL (74-106)
[2025-05-02 02:46] LABS: CO2 21.0 mmol/L (21-32)
[2025-05-02 02:50] LABS: CREATININE 1.39 mg/dL (0.55-1.3)
[2025-05-02 02:51] VITALS: BMI 23.8
[2025-05-02] MEDS: methylPREDNISolone NA SUCC 40 MG/1 ML VIAL IVPUSH SCH (03:09)
[2025-05-02] MEDS: PIPERACILLIN/TAZOB 3.375 GM 3.375 GM in DEXTROSE 5%-WATER - 50 ML IVPB SCH ×2 (03:09→17:48)
[2025-05-02] MEDS: SODIUM CHLORIDE 1,000 ML IV SCH (03:10)
[2025-05-02] MEDS: ACETAMINOPHEN 1000 MG/100 ML BAG IVPB ONE (04:24)
[2025-05-02] MEDS ORDERED: ALBUTEROL SO4 2.5/IPRATROPIUM 0.5 INH SOL 3 ML VIAL.NEB. NEB PRN (04:45)
[2025-05-02] MEDS: PREGABALIN 75 MG CAPSULE PO ONE (05:03)
[2025-05-02] MEDS: INSULIN (NOVOLOG) ASPART 100 UNITS/ML 10ML VIAL SQ ONE (06:24)
[2025-05-02] MEDS: VANCOMYCIN HCL 125 MG CAPSULE (RESTRICTED TO ID ONLY) PO SCH (06:24)
[2025-05-02] MEDS: INSULIN ASPART SLIDING SCALE (NOVOLOG) 1 VIAL SQ SCH (06:32)
[2025-05-02] MEDS: EMPAGLIFLOZIN (JARDIANCE) 10 MG TABLET PO SCH (06:32)
[2025-05-02] MEDS: ALBUTEROL SO4 2.5/IPRATROPIUM 0.5 INH SOL 3 ML VIAL.NEB. NEB SCH (07:50)
[2025-05-02] MEDS: INSULIN GLARGINE (LANTUS) 100 UNITS/ML UNITS SQ SCH (08:31)
[2025-05-02] MEDS: MAGNESIUM SULF 50% (8.12 MEQ/2 ML-1 GM VIAL) IVPB ONE (08:32)
[2025-05-02 08:51] LABS: ABSOLUTE IMMATURE GRANULOCYTES 0.03 x10^3/uL (0.0-0.031); BASOPHILS # 0.02 x10^3/uL (0.01-0.08); EOSINOPHIL % 0.0 % (0.7-5.8); EOSINOPHILS # 0.00 x10^3/uL (0.04-0.36); MCHC 29.6 g/dl (32.2-35.5); MEAN CELL VOLUME 87.0 fl (79.4-94.8); MONOCYTE # 0.14 x10^3/uL (0.24-0.86); MONOCYTE % 2.2 % (4.7-12.5); RDW 17.1 % (12.3-16.6)
[2025-05-02] MEDS: CLOPIDOGREL BISULFATE 75 MG TABLET (FP) PO SCH (09:22)
[2025-05-02] MEDS: FERROUS SO4 325 MG TABLET (FP) PO SCH (09:22)
[2025-05-02] MEDS: guaiFENesin 600 MG TABLET.ER (FP) PO SCH (09:22)
[2025-05-02] MEDS: LACTOBACILLUS ACIDOPHILUS 1 TABLET PO SCH (09:22)
[2025-05-02] MEDS: POLYETHYLENE GLYCOL (HEALTHYLAX) 3350 17 GM PACKET PO SCH (09:23)
[2025-05-02] MEDS ORDERED: ALBUTEROL SO4 2.5/IPRATROPIUM 0.5 INH SOL 3 ML VIAL.NEB. NEB SCH (12:00)
[2025-05-02] MEDS: AZITHROMYCIN IVPB 500 MG/250 ML BAG IVPB SCH (15:43)
[2025-05-02] MEDS: RIVAROXABAN 20 MG TABLET PO SCH (17:10)
[2025-05-02] MEDS: VANCOMYCIN 1,000 MG in DEXTROSE 5%-WATER - 250 ML IVPB SCH (17:47)
[2025-05-02] MEDS: VANCOMYCIN/WATER FOR INJ (PEG) 1,000 MG/200 ML BAG IVPB ONE (17:53)
[2025-05-02] MEDS ORDERED: VANCOMYCIN/WATER FOR INJ (PEG) 1,000 MG/200 ML BAG IVPB SCH (20:00)
[2025-05-02] MEDS: ATORVASTATIN CA 80 MG TABLET (FP) PO SCH (21:44)
[2025-05-02] MEDS: EZETIMIBE 10 MG TABLET (FP) PO SCH (21:44)
[2025-05-03] MEDS: ACETAMINOPHEN 1000 MG/100 ML BAG IVPB PRN (00:54)
[2025-05-03] MEDS: PREGABALIN 75 MG CAPSULE PO SCH (00:54)
[2025-05-03] MEDS: PIPERACILLIN/TAZOB 3.375 GM 3.375 GM in DEXTROSE 5%-WATER - 50 ML IVPB SCH (03:55)
[2025-05-03] MEDS ORDERED: INSULIN ASPART SLIDING SCALE (NOVOLOG) 1 VIAL SQ ONE (07:25)
[2025-05-03] MEDS ORDERED: INSULIN GLARGINE (LANTUS) 100 UNITS/ML UNITS SQ ONE (07:26)
[2025-05-03 08:52] LABS: ABSOLUTE IMMATURE GRANULOCYTES 0.03 x10^3/uL (0.0-0.031); BASOPHILS # 0.01 x10^3/uL (0.01-0.08); EOSINOPHIL % 0.0 % (0.7-5.8); EOSINOPHILS # 0.00 x10^3/uL (0.04-0.36); MCHC 30.2 g/dl (32.2-35.5); MEAN CELL VOLUME 85.9 fl (79.4-94.8); MEAN PLT VOLUME 12.2 fl (9.4-12.3); MONOCYTE # 0.38 x10^3/uL (0.24-0.86); MONOCYTE % 3.1 % (4.7-12.5); RDW 17.3 % (12.3-16.6)
[2025-05-03 09:03] LABS: GLUCOSE,RANDOM 196.0 mg/dL (74-106)
[2025-05-03 09:04] LABS: CO2 21.0 mmol/L (21-32)
[2025-05-03 09:08] LABS: SGOT/AST 18.0 U/L (5-34); SGPT/ALT 6.0 U/L (0-55)
[2025-05-03 09:09] LABS: CREATININE 1.81 mg/dL (0.55-1.3)
[2025-05-03 09:26] LABS: ALK PHOS 210.0 U/L (40-150); TOT PROT 7.7 g/dl (6.4-8.2)
[2025-05-04] MEDS ORDERED: INSULIN ASPART SLIDING SCALE (NOVOLOG) 1 VIAL SQ ONE (06:52)
[2025-05-04] MEDS ORDERED: INSULIN GLARGINE (LANTUS) 100 UNITS/ML UNITS SQ ONE (06:52)
[2025-05-05] MEDS ORDERED: INSULIN ASPART SLIDING SCALE (NOVOLOG) 1 VIAL SQ ONE (06:30)
[2025-05-05 07:49] VITALS: RESP 18
[2025-05-05 14:15] VITALS: BP 108/63; PULSE 75; TEMP 97.9
[2025-05-05] MEDS: MULTIVITAMINS (DAILY MVI) TABLET (FP) PO SCH (15:28)
== END 2025-05-05 17:02 | disposition home health service (06) | DRG 140 ==
LOC: JER 18:55 → JERBED 23:28 → J6W TELE 05-02 02:45
PROVIDERS: ADMIT Family Medicine; ATTEND Family Medicine
DX: J44.0 Chronic obstructive pulmonary disease with (acute) lower respiratory infection (principal); I10 Essential (primary) hypertension; E78.5 Hyperlipidemia, unspecified; I25.10 Atherosclerotic heart disease of native coronary artery without angina pectoris; I48.91 Unspecified atrial fibrillation; E11.40 Type 2 diabetes mellitus with diabetic neuropathy, unspecified; E11.51 Type 2 diabetes mellitus with diabetic peripheral angiopathy without gangrene; K21.9 Gastro-esophageal reflux disease without esophagitis; J18.9 Pneumonia, unspecified organism; J44.1 Chronic obstructive pulmonary disease with (acute) exacerbation; L97.509 Non-pressure chronic ulcer of other part of unspecified foot with unspecified severity; I12.9 Hypertensive chronic kidney disease with stage 1 through stage 4 chronic kidney disease, or unspecified chronic kidney disease; E11.22 Type 2 diabetes mellitus with diabetic chronic kidney disease; N18.9 Chronic kidney disease, unspecified; E11.65 Type 2 diabetes mellitus with hyperglycemia; D64.9 Anemia, unspecified; E11.621 Type 2 diabetes mellitus with foot ulcer; L89.153 Pressure ulcer of sacral region, stage 3; L89.220 Pressure ulcer of left hip, unstageable
CPT/HCPCS: 36415; 71045-TC-FY; 71275-TC; 80048; 80053; 82803; 82962; 83605; 83735; 83880; 84100; 84484; 85025; 86803; 87040; 87389; 87637-QW; 87899; 93005; 93010; 94640; 99285-25; E0186